=== PATIENT | female | born 1950 | race Caucasian/White ===

== ENCOUNTER 2017-12-25 22:14 | Inpatient (IN) | payer MEDICARE ==
[~2017-12-25] VITALS: Ht 154.9 cm; Wt 84.4 kg
--- NOTE | 2017-12-25 22:23 | ED.ADGEN ---
Past History Past Medical History: Arthritis, Bipolar, Dementia, Depression, Diabetes, Hypertension, UTI, Other Past Surgical History: Other Adult General Chief Complaint Chief Complaint ".. They said I needed to come... but why in the middle of the night... ".. " This is fucking crazy.. to send me out in the middle of fucking night... " " The nursing was just tired of the shit I was giving them... ".." They say I am crazy..." HPI HPI Patient is a 67 year old female who presents with above hx of complaints and hx of mental status change. Pt. per snf increasingly agitated, refuses and un cooperative with her care, impossible to re-direct, hyper verbal, irritable, explosive behaviors and threatening. Throwing items at staff and other residents. Pt. is a resident of [facility] since . Pt. normally follows with Dr. Yap. Pt. has hx of recent falls. Pt. has hx of Bipolar, Sleep apnea, Insomnia, HTN, Dementia, Hypothyroidism, Anxiety Disorder. Pt. sent to ED for eval. prior admit to [facility]. Review of Systems Review of Systems Constitutional: Denies fever or chills [] Eyes: Denies change in visual acuity, redness, or eye pain [] HENT: Denies nasal congestion or sore throat [] Respiratory: Denies cough or shortness of breath [] Cardiovascular: No additional information not addressed in HPI [] GI: Denies abdominal pain, nausea, vomiting, bloody stools or diarrhea [] : Denies dysuria or hematuria [] Musculoskeletal: Denies back pain or joint pain []Pt. only complaint is Rt. 5 th finger pain- injury during fall yesterday. Integument: Denies rash or skin lesions [] Neurologic: Denies headache, focal weakness or sensory changes [] Endocrine: Denies polyuria or polydipsia [] All other systems were reviewed and found to be within normal limits, except as documented in this note. Family History Family History Not currently available Current Medications Current Medications Current Medications Medications (Trade) Dose Ordered Sig/Bora Start Time Stop Time Status Last Admin Dose Admin Cephalexin HCl (Keflex) 500 mg 1X ONCE 12/26/17 01:15 12/26/17 01:16 DC Lactated Ringer's 1,000 ml @ 1,000 mls/hr Q1H 12/25/17 23:30 12/26/17 00:29 DC 12/25/17 23:19 1,000 MLS/HR Levofloxacin (Levaquin) 500 mg 1X ONCE 12/26/17 01:45 12/26/17 01:46 DC 12/26/17 01:45 500 MG See Nursing for home meds. Allergies Allergies Allergies Coded Allergies Type Severity Reaction Last Updated Verified Benzodiazepines Allergy Unknown Unknown 12/26/17 Yes clonazepam Allergy Unknown Unknown 12/26/17 Yes lorazepam Allergy Unknown Unknown 12/26/17 Yes Physical Exam Physical Exam Constitutional: Very agitated and in acute emotioal distress, non-toxic appearance. []Argumentative. HENT: Normocephalic, atraumatic, bilateral external ears normal, oropharynx moist, no oral exudates, nose normal. [] Eyes: PERRLA, EOMI, conjunctiva normal, no discharge. Glasses. Neck: Normal range of motion, no tenderness, supple, no stridor. [] Cardiovascular:Bradycardia Heart rate regular rhythm, no murmur [] Lungs & Thorax: Bilateral breath sounds equal at apex on auscultation . Scattered wheezes. Scar Lt. Abdomen: Bowel sounds normal, soft, no tenderness, no masses, no pulsatile masses. Obese. Skin: Warm, dry, no erythema, no rash. [] Poor turgor. Back: No tenderness, no CVA tenderness. [] Extremities: No tenderness, no cyanosis, no clubbing, ROM intact, no edema. [] Except findings of obvious dislocated right fifth finger with edema and discoloration. Neurologic: Alert and oriented X 3, No gross motor or sensory function deficits from baseline per pt. snf. Psychologic: Affect angry and agitated, , judgement limited insight to her behavior, Current Patient Data Vital Signs Vital Signs Date Time Temp Pulse Resp B/P (MAP) Pulse Ox O2 Delivery O2 Flow Rate FiO2 12/25/17 22:35 98.1 79 20 92 Room Air Lab Results Laboratory Tests Test 12/25/17 22:32 12/25/17 23:03 Urine Collection Type Unknown Urine Color Yellow Urine Clarity Clear Urine pH 6.5 Urine Specific [place] 1.010 Urine Protein Neg (NEG-TRACE) Urine Glucose (UA) Neg mg/dL (NEG) Urine Ketones (Stick) Neg mg/dL (NEG) Urine Blood Trace (NEG) Urine Nitrite Neg (NEG) Urine Bilirubin Neg (NEG) Urine Urobilinogen Dipstick 0.2 mg/dL (0.2 mg/dL) Urine Leukocyte Esterase Small (NEG) Urine RBC 0 /HPF (0-2) Urine WBC 1-4 /HPF (0-4) Urine Squamous Epithelial Cells Few /LPF Urine Bacteria Few /HPF (0-FEW) Urine Opiates Screen Neg (NEG) Urine Methadone Screen Neg (NEG) Urine Barbiturates Neg (NEG) Urine Phencyclidine Screen Neg (NEG) Urine Amphetamine/Methamphetamine Neg (NEG) Urine Benzodiazepines Screen Neg (NEG) Urine Cocaine Screen Neg (NEG) Urine Cannabinoids Screen Neg (NEG) Urine Ethyl Alcohol Neg (NEG) White Blood Count 7.9 x10^3/uL (4.0-11.0) Red Blood Count 4.02 x10^6/uL (3.50-5.40) Hemoglobin 12.5 g/dL (12.0-15.5) Hematocrit 36.5 % (36.0-47.0) Mean Corpuscular Volume 91 fL (79-100) Mean Corpuscular Hemoglobin 31 pg (25-35) Mean Corpuscular Hemoglobin Concent 34 g/dL (31-37) Red Cell Distribution Width 13.0 % (11.5-14.5) Platelet Count 208 x10^3/uL (140-400) Neutrophils (%) (Auto) 72 % (31-73) Lymphocytes (%) (Auto) 18 % (24-48) L Monocytes (%) (Auto) 7 % (0-9) Eosinophils (%) (Auto) 2 % (0-3) Basophils (%) (Auto) 0 % (0-3) Neutrophils # (Auto) 5.7 x10^3uL (1.8-7.7) Lymphocytes # (Auto) 1.4 x10^3/uL (1.0-4.8) Monocytes # (Auto) 0.6 x10^3/uL (0.0-1.1) Eosinophils # (Auto) 0.2 x10^3/uL (0.0-0.7) Basophils # (Auto) 0.0 x10^3/uL (0.0-0.2) Erythrocyte Sedimentation Rate 16 (0-25) Prothrombin Time 10.4 SEC (9.4-11.4) Prothrombin Time INR 1.0 (0.9-1.1) PTT 25 SEC (23-33) Sodium Level 139 mmol/L (136-145) Potassium Level 4.1 mmol/L (3.5-5.1) Chloride Level 106 mmol/L (98-107) Carbon Dioxide Level 28 mmol/L (21-32) Anion Gap 5 (6-14) L Blood Urea Nitrogen 11 mg/dL (7-20) Creatinine 0.8 mg/dL (0.6-1.0) Estimated GFR (Cockcroft-Gault) 71.3 Glucose Level 102 mg/dL (70-99) H Calcium Level 9.8 mg/dL (8.5-10.1) Magnesium Level 1.9 mg/dL (1.8-2.4) Total Bilirubin 0.3 mg/dL (0.2-1.0) Direct Bilirubin 0.1 mg/dL (0.0-0.2) Aspartate Amino Transferase (AST) 27 U/L (15-37) Alanine Aminotransferase (ALT) 23 U/L (14-59) Alkaline Phosphatase 138 U/L (46-116) H Creatine Kinase 254 U/L (26-192) H Creatine Kinase MB (Mass) 4.1 ng/mL (0.0-3.6) H Creatine Kinase MB Relative Index 1.6 % (0-4) Troponin I Quantitative < 0.017 ng/mL (0-0.055) TT-Cqu-H-Type Natriuretic Peptide 31 pg/mL (0-124) Total Protein 7.2 g/dL (6.4-8.2) Albumin 3.6 g/dL (3.4-5.0) Lipase 127 U/L (73-393) EKG EKG My interpretation of EKG shows a sinus rhythm at 62 bpm with no acute morphology.[] Radiology/Procedures Radiology/Procedures My interpretation of chest x-ray shows degenerative joint changes. Borderline cardiac silhouette. Atelectasis. Some findings of chronic lung disease and basilar ankle ectasis particularly on left. Does have findings of previous surgical clips clips on left. My interpretation of hand x-ray shows degenerative joint changes and dislocation of right fifth finger. Ring still on fourth finger. My interpretation of x-ray post reduction of dislocation shows adequate repositioning. The bone fragment in whole area appears to be old. ( Not tender to palpation. ) My interpretation of head CT shows no shift,, edema, bleed, or fracture. Does have findings of a 1.5 cm meningioma frontal area.[] that appears to be calcified. See formal report when available. Course & Med Decision Making Course & Med Decision Making Pertinent Labs and Imaging studies reviewed. (See chart for details) Procedure Note; Dislocation reduction- gentle traction applied to right fifth finger with reduction of dislocation- Then splinted and sandy taped. Pt. did allow me to remove ring off of 4th finger. It was place on Lt. Index finger. Discussed presentation, testing and treatment plan with - will follow medical issues of patient while she is in the senior behavioral health unit. Patient be admitted to on SBH unit. [] Final Impression Final Impression 1. Mental status change 2. Dysfunctional behavior and aggressive outbursts 3. Dislocation of fifth right finger-induced 4. Urinary tract infection 5. Elevated alkaline phosphatase and CK 6. History of bipolar disorder 7. History of dementia 8. History of anxiety disorder 9. History of insomnia and sleep apnea[] Dragon Disclaimer Dragon Disclaimer This electronic medical record was generated, in whole or in part, using a voice recognition dictation system. BLAKE CABRALES MD Dec 25, 2017 22:23
[2017-12-25] MEDS ORDERED: LITH150C PO (22:53)
[2017-12-25] MEDS ORDERED: ACET325T9 PO (22:53)
[2017-12-25] MEDS ORDERED: SORB1SOL MC (22:53)
[2017-12-25] MEDS ORDERED: LEVO75TA5 PO (22:53)
[2017-12-25] MEDS ORDERED: OLAN20TA3 PO (22:53)
[2017-12-25] MEDS ORDERED: POLY17PO5 PO (22:53)
[2017-12-25] MEDS ORDERED: ERGO500027 PO (22:53)
[2017-12-25] MEDS ORDERED: DUREZOL (22:53)
[2017-12-25] MEDS ORDERED: DEXT15DR5 EACHEYE (22:53)
[2017-12-25] MEDS ORDERED: OLAN10TA3 PO (22:53)
[2017-12-25] MEDS ORDERED: AMLO5TAB4 PO (22:53)
[2017-12-25] MEDS ORDERED: ESTR42.53 VG (22:53)
[2017-12-25] MEDS ORDERED: LITH300T3 PO (22:53)
[2017-12-25] MEDS ORDERED: TRAZ-85 PO (22:53)
[2017-12-25] MEDS ORDERED: BUSP5TAB PO (22:53)
[2017-12-25] MEDS ORDERED: ATOR20TA PO (22:53)
[2017-12-25] MEDS ORDERED: BENZ1TAB5 PO (22:53)
[2017-12-25] MEDS ORDERED: SODI15DR4 OD (22:53)
[2017-12-25] MEDS ORDERED: CARB200T PO (22:53)
[2017-12-25] MEDS ORDERED: MAGN2400 PO (22:53)
[2017-12-25] MEDS ORDERED: OXYC-317 PO (22:53)
[2017-12-25 23:14] LABS: BARBITURATES NEG (NEG); BENZODIAZEPINES NEG (NEG); CANNABINOIDS NEG (NEG); COCAINE NEG (NEG); METHADONE NEG (NEG); OPIATES NEG (NEG); PHENCYCLIDINE NEG (NEG)
[2017-12-25 23:24] LABS: AMPHETAMINE/METHAMPHETAMINE NEG (NEG)
[2017-12-25 23:26] LABS: BASO % 0 % (0-3); EOS # 0.2 x10^3/uL (0.0-0.7); EOS % 2 % (0-3); HEMATOCRIT 36.5 % (36.0-47.0); HEMOGLOBIN 12.5 g/dL (12.0-15.5); LYMPH # 1.4 x10^3/uL (1.0-4.8); LYMPH % 18 % (24-48); MEAN CORPUSCULAR HEMOGLOBIN 31 pg (25-35); MEAN CORPUSCULAR HGB CONC 34 g/dL (31-37); MEAN CORPUSCULAR VOLUME 91 fL (79-100); MONO # 0.6 x10^3/uL (0.0-1.1); MONO % 7 % (0-9); NEUT # 5.7 x10^3uL (1.8-7.7); NEUT % 72 % (31-73); PLATELET COUNT 208 x10^3/uL (140-400); RED BLOOD COUNT 4.02 x10^6/uL (3.50-5.40); WHITE BLOOD COUNT 7.9 x10^3/uL (4.0-11.0)
[2017-12-25] MEDS ORDERED: IV RINGERS SOLUTION,LACTATED 1,000 ML IV SCH (23:30)
[2017-12-25 23:37] LABS: BACTERIA,URINE FEW /HPF (0-FEW); BILIRUBIN,URINE NEG (NEG); CLARITY,URINE CLEAR; COLOR,URINE YELLOW; GLUCOSE,URINE NEG (NEG); NITRITE,URINE NEG (NEG); RBC,URINE 0 /HPF (0-2); SQUAMOUS EPITHELIAL CELL,UR FEW /LPF; UROBILINOGEN,URINE 0.2 mg/dL (0.2 mg/dL)
[2017-12-25 23:47] LABS: ALBUMIN 3.6 g/dL (3.4-5.0); CALCIUM 9.8 mg/dL (8.5-10.1); CREATININE 0.8 mg/dL (0.6-1.0); DIRECT BILIRUBIN 0.1 mg/dL (0.0-0.2); GFR 71.3; MAGNESIUM 1.9 mg/dL (1.8-2.4); POTASSIUM 4.1 mmol/L (3.5-5.1); TOTAL BILIRUBIN 0.3 mg/dL (0.2-1.0); TOTAL PROTEIN 7.2 g/dL (6.4-8.2)
--- NOTE | 2017-12-25 23:49 | EKG ---
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
[2017-12-26 00:24] LABS: SEDIMENTATION RATE 16 (0-25)
[2017-12-26] MEDS ORDERED: CEPHALEXIN 250 MG CAPSULE PO ONE (01:15)
[2017-12-26] MEDS ORDERED: levoFLOXacin 500 MG TABLET PO ONE (01:45)
--- NOTE | 2017-12-26 01:52 | RAD ---
EXAM: CT HEAD WITHOUT CONTRAST. HISTORY: Altered mental status. TECHNIQUE: Computed tomography of the head was performed without intravenous contrast. COMPARISON: None. FINDINGS: There is no intracranial hemorrhage. Hypoattenuation within the periventricular white matter indicates mild chronic microangiopathic change. The ventricles are normal in size and position. A calcified extra-axial nodule in the left frontal distribution may represent dural calcification or small meningioma. It measures 1.6 x 1.0 cm. There is no significant mass effect. The visualized paranasal sinuses appear clear. There are changes of right cataract surgery. The temporal bones are unremarkable. The calvarium reveals no suspicious lesions. IMPRESSION: 1. No acute intracranial findings. 2. A left frontal extra-axial calcified mass measures 1.6 cm and is likely a meningioma. MRI with and without contrast could further evaluate if the diagnosis is not already known. 3. Mild chronic microangiopathic white matter change. *One or more of the following individualized dose reduction techniques were utilized for this examination: 1. Automated exposure control. 2. Adjustment of the mA and/or kV according to patient size. 3. Use of iterative reconstruction technique. Electronically signed by: Rosalia Florian MD (12/26/2017 1:49 AM) [id number]
[2017-12-26] MEDS ORDERED: oxyCODONE/APAP 10/325 1 TAB TABLET PO PRN (05:15)
[2017-12-26] MEDS ORDERED: SORBITOL 70% 30 ML SOLUTION. PO PRN (05:15)
[2017-12-26] MEDS ORDERED: MAGNESIUM HYDROXIDE 2,400 MG/30 ML ORAL.SUSP. PO PRN (05:15)
[2017-12-26] MEDS ORDERED: MAG HYDROX/AL HYDROX/SIMETH 30 ML ORAL.SUSP PO PRN (05:15)
[2017-12-26] MEDS ORDERED: METHYL SALICYLATE/MENTHOL TOPICAL OINTMENT 29GM TUBE. TP PRN (05:15)
[2017-12-26] MEDS ORDERED: CEPHALEXIN 250 MG CAPSULE ONE (05:29)
[2017-12-26] MEDS ORDERED: busPIRone 5 MG TABLET. PO PRN (05:30)
[2017-12-26] MEDS: LEVOTHYROXINE 75 MCG TABLET PO SCH (06:26)
[2017-12-26 06:42] VITALS: BP 161/82
--- NOTE | 2017-12-26 07:41 | RAD ---
AP chest, 12/26/2017: HISTORY: Medical clearance for behavioral health admission, altered mental status The heart size and pulmonary vascularity are normal. There is minimal linear atelectasis or scarring laterally in the left base. The lungs are otherwise clear. There is no evidence of pleural fluid. Surgical clips are projected over the left axillary and right thyroid regions. IMPRESSION: Minimal linear atelectasis or scarring in the left base. Electronically signed by: Elgin Valentine MD (12/26/2017 7:37 AM) [facility]
--- NOTE | 2017-12-26 07:44 | RAD ---
Right hand, 3 views, 12/26/2017, 12:14 AM: HISTORY: Hand injury There is posterior dislocation of the little finger at the PIP joint. There is associated soft tissue swelling. No fracture is identified. There are mild scattered degenerative changes. Minimal periarticular calcifications are seen at several MCP joints. IMPRESSION: Dislocation of the little finger at the PIP joint. Right hand, 3 views, 12/26/2017, 1:17 AM: The above-described little finger dislocation has been reduced. No fracture is identified. IMPRESSION: Satisfactory reduction of the dislocated little finger. Electronically signed by: Elgin Valentine MD (12/26/2017 7:41 AM) [facility]
[2017-12-26] MEDS: POLYETHYLENE GLYCOL 3350 17 GM PACKET. PO SCH (08:04)
[2017-12-26] MEDS: BENZTROPINE MESYLATE 1 MG TABLET PO SCH ×2 (08:04→20:34)
[2017-12-26] MEDS: LITHIUM CARBONATE 300 MG TABLET PO SCH ×3 (08:04→20:37)
[2017-12-26] MEDS: carBAMazepine 200 MG TABLET PO SCH ×2 (08:05→20:35)
[2017-12-26] MEDS: amLODIPine BESYLATE 5 MG TABLET PO SCH (08:05)
[2017-12-26] MEDS: OLANZapine 10 MG TABLET PO SCH ×2 (08:05→20:34)
[2017-12-26] MEDS: LACTOBACILLUS RHAMNOSUS GG 1 CAPSULE. PO SCH ×2 (08:07→20:36)
[2017-12-26] MEDS: POLYVINYL ALCOHOL 1.4% OPHTH SOLUTION 15ML BOTTLE. OU SCH ×2 (08:09→14:19)
[2017-12-26 13:16] LABS: CARBAM 10.2 mcg/mL (4.0-12.0)
[2017-12-26] MEDS: PHENAZOPYRIDINE 100 MG TABLET. PO SCH ×2 (14:19→20:36)
--- NOTE | 2017-12-26 14:40 | CONS ---
DATE OF CONSULTATION: 12/26/2017 REASON FOR CONSULTATION: Medical management. HISTORY OF PRESENT ILLNESS: The patient is a 67-year-old female patient, a resident at [facility], who was admitted to [facility]al Unit on account of increasing agitation and aggression. She has been hyperverbal, irritable, has insomnia, throws things if she does not get her way with very explosive behavior, all this in a background of bipolar disorder. PAST MEDICAL HISTORY: Significant for hypertension, hyperlipidemia, hypothyroidism. She has also recurrent falls and muscle weakness. PAST PSYCHIATRIC HISTORY: Significant for bipolar disorder as well as dementia. PAST SURGICAL HISTORY: Unremarkable. FAMILY HISTORY: Also unremarkable. ALLERGIES: SHE IS ALLERGIC TO BENZODIAZEPINE, CLONAZEPAM, AND LORAZEPAM. MEDICATIONS: She is currently on following medications: She is on atorvastatin calcium 20 mg at bedtime, amlodipine 5 mg daily, oxycodone/APAP 10/325 one tablet every 6 hours, acetaminophen 650 mg every 6 hours, carbamazepine 200 mg twice a day, trazodone 50 mg at bedtime, olanzapine 10 mg daily, olanzapine 20 mg at bedtime, buspirone 5 mg every 8 hours as needed, lithium carbonate 150 mg at bedtime and lithium carbonate 300 mg twice a day. She is on benztropine 1 mg twice a day. She has artificial tears 1 drop to both eyes 3 times a day. She is on saline nasal spray 1 spray at bedtime. She has magnesium oxide for milk of magnesia 30 mL p.o. daily p.r.n. for constipation, polyethylene glycol 17 grams daily, sorbitol solution. She is also on estradiol for Estrace 1 gram per vagina once a week at bedtime every Friday and . She follows with her pecan gatherer there. She is also on ergocalciferol 50,000 units once a week and ergocalciferol, vitamin D 50,000 once a week. FAMILY HISTORY: Unremarkable. SOCIAL HISTORY: She is a resident at [facility]. She apparently does not smoke, drink alcohol, or use any recreational drugs. PHYSICAL EXAMINATION: GENERAL: When I examined her, she was sitting comfortably in her chair in no apparent distress. She was pale, no jaundice, cyanosis or thyromegaly. No jugular venous distension. No lower limb edema. VITAL SIGNS: Her heart rate was 72, blood pressure was 161/82, temperature was 98.5, respiratory rate was 18 and oxygen saturation was 97%. HEAD, EYES, EARS, NOSE, AND THROAT: Showed normocephalic, atraumatic. NECK: Supple. HEART: Showed normal first and second heart sounds. No gallop, rub or murmur. CHEST: Clear to auscultation. No crepitation or rhonchi. ABDOMEN: Distended, soft, nontender. NEUROLOGIC: She is awake, alert, responding appropriately. All cranial nerves intact. EXTREMITIES: She moves extremities without difficulty. She ambulates without assistance or assistive devices. She apparently fell and sustained a fracture of her right fifth finger. She actually dislocated her little finger at proximal interphalangeal joints and she underwent open reduction and fixation with the splint. LABORATORY DATA: Her white cell count was 7900, hemoglobin 12.5, hematocrit 36.5, MCV 91, and platelet count 98,000. Her chemistry showed a serum sodium 139, potassium 4.1, chloride 106, bicarbonate 28, anion gap of 5, BUN 11, creatinine 0.8, estimated GFR was 71 mL per minute. Her glucose 102, calcium was 9.8, magnesium was 1.9. Total bilirubin, AST, ALT were normal. Alkaline phosphatase slightly elevated. Total protein was 7.2, albumin 3.6. Her prothrombin time was 10.4, INR of 1, aPTT was 25. Urinalysis showed the urine was yellow, clear with a pH of 6.5, specific gravity of 1.010. The urine was negative for protein, glucose, ketones, there was trace of blood, negative for nitrite and small amount of leukocyte esterase with 0 RBCs, 1-4 WBCs, very few bacteria. Her toxic screen was negative. Her CT scan of the head showed that no acute intracranial finding, a left frontal extraaxial calcified mass measures 1.7 cm is likely a meningioma. MRI with and without contrast could further evaluate if the diagnosis is not already known. She has mild chronic microangiopathic white matter changes. The chest x-ray showed that the heart size and pulmonary vascularity are normal. There is minimal linear atelectasis or scarring laterally in the left base. The lungs are otherwise clear. There is no evidence of pleural effusion. Surgical clips are projected over the left axillary and right thyroid regions. X-ray of the hand showed that there is posterior dislocation of the little finger at proximal interphalangeal joint. There is associated soft tissue swelling, no fracture identified. There are mild scattered degenerative changes, minimal periarticular calcifications are seen at several metacarpophalangeal joints. The dislocation was reduced and the patient now put in a splint and the newer position was confirmed by chest x-ray. IMPRESSION: In summary, this is a 67-year-old female patient who was admitted on account of increased agitation, aggression, hyperverbal, irritable, insomniac, throws things if she does not get her way with marked explosive behavior. She has multiple medical problems including hypertension, hyperlipidemia, hypothyroidism, osteoarthritis, and osteoporosis. All her vital signs are within acceptable range as well as her lab work. I will follow all the labs that are still pending at the time of this dictation and make any necessary recommendation. Thank you Dr. Pinzon for allowing me to participate in the care of this patient. TANIA DELGADO MD DR: TRINIDAD/fredrick JOB#: [id number] / [id number]
[2017-12-26 16:29] VITALS: BP 119/75
[2017-12-26] MEDS ORDERED: POLYVINYL ALCOHOL/POVIDONE/PF OPHTH SOLUTION DROPERETTE. OU SCH (17:00)
[2017-12-26] MEDS: traZODone 50 MG TABLET. PO SCH (20:34)
[2017-12-26] MEDS: POLYVINYL ALCOHOL/POVIDONE/PF OPHTH SOLUTION DROPERETTE. OU SCH (20:34)
[2017-12-26] MEDS: ATORVASTATIN CALCIUM 20 MG TABLET PO SCH (20:34)
--- NOTE | 2017-12-26 21:01 | PDOC ---
Exam Note: Julian Note: Please also refer to the separate dictated note~for this date of service dictated separately.~Patient seen individually. Discussed the patient with Nursing staff reviewed the chart.~Reviewed interim history and current functioning. Reviewed vital signs,~Labs/ Radiology~and current medications noted below. Continue current treatment with the changes noted in the dictated addendum note Assessment: Vital Signs: Vital Signs Date Time Temp Pulse Resp B/P (MAP) Pulse Ox O2 Delivery O2 Flow Rate FiO2 12/26/17 16:29 98.3 81 20 119/75 (90) 95 12/25/17 22:35 Room Air Labs: Laboratory Tests Test 12/25/17 22:32 12/25/17 23:03 Urine Collection Type Unknown Urine Color Yellow Urine Clarity Clear Urine pH 6.5 Urine Specific Stephen 1.010 Urine Protein Neg (NEG-TRACE) Urine Glucose (UA) Neg mg/dL (NEG) Urine Ketones (Stick) Neg mg/dL (NEG) Urine Blood Trace (NEG) Urine Nitrite Neg (NEG) Urine Bilirubin Neg (NEG) Urine Urobilinogen Dipstick 0.2 mg/dL (0.2 mg/dL) Urine Leukocyte Esterase Small (NEG) Urine RBC 0 /HPF (0-2) Urine WBC 1-4 /HPF (0-4) Urine Squamous Epithelial Cells Few /LPF Urine Bacteria Few /HPF (0-FEW) Urine Opiates Screen Neg (NEG) Urine Methadone Screen Neg (NEG) Urine Barbiturates Neg (NEG) Urine Phencyclidine Screen Neg (NEG) Urine Amphetamine/Methamphetamine Neg (NEG) Urine Benzodiazepines Screen Neg (NEG) Urine Cocaine Screen Neg (NEG) Urine Cannabinoids Screen Neg (NEG) Urine Ethyl Alcohol Neg (NEG) White Blood Count 7.9 x10^3/uL (4.0-11.0) Red Blood Count 4.02 x10^6/uL (3.50-5.40) Hemoglobin 12.5 g/dL (12.0-15.5) Hematocrit 36.5 % (36.0-47.0) Mean Corpuscular Volume 91 fL (79-100) Mean Corpuscular Hemoglobin 31 pg (25-35) Mean Corpuscular Hemoglobin Concent 34 g/dL (31-37) Red Cell Distribution Width 13.0 % (11.5-14.5) Platelet Count 208 x10^3/uL (140-400) Neutrophils (%) (Auto) 72 % (31-73) Lymphocytes (%) (Auto) 18 % (24-48) L Monocytes (%) (Auto) 7 % (0-9) Eosinophils (%) (Auto) 2 % (0-3) Basophils (%) (Auto) 0 % (0-3) Neutrophils # (Auto) 5.7 x10^3uL (1.8-7.7) Lymphocytes # (Auto) 1.4 x10^3/uL (1.0-4.8) Monocytes # (Auto) 0.6 x10^3/uL (0.0-1.1) Eosinophils # (Auto) 0.2 x10^3/uL (0.0-0.7) Basophils # (Auto) 0.0 x10^3/uL (0.0-0.2) Erythrocyte Sedimentation Rate 16 (0-25) Prothrombin Time 10.4 SEC (9.4-11.4) Prothrombin Time INR 1.0 (0.9-1.1) PTT 25 SEC (23-33) Sodium Level 139 mmol/L (136-145) Potassium Level 4.1 mmol/L (3.5-5.1) Chloride Level 106 mmol/L (98-107) Carbon Dioxide Level 28 mmol/L (21-32) Anion Gap 5 (6-14) L Blood Urea Nitrogen 11 mg/dL (7-20) Creatinine 0.8 mg/dL (0.6-1.0) Estimated GFR (Cockcroft-Gault) 71.3 Glucose Level 102 mg/dL (70-99) H Calcium Level 9.8 mg/dL (8.5-10.1) Magnesium Level 1.9 mg/dL (1.8-2.4) Iron Level 43 ug/dL (50-170) L Total Iron Binding Capacity 230 ug/dL (250-450) L Iron Saturation 19 % (15-34) Total Bilirubin 0.3 mg/dL (0.2-1.0) Direct Bilirubin 0.1 mg/dL (0.0-0.2) Aspartate Amino Transferase (AST) 27 U/L (15-37) Alanine Aminotransferase (ALT) 23 U/L (14-59) Alkaline Phosphatase 138 U/L (46-116) H Creatine Kinase 254 U/L (26-192) H Creatine Kinase MB (Mass) 4.1 ng/mL (0.0-3.6) H Creatine Kinase MB Relative Index 1.6 % (0-4) Troponin I Quantitative < 0.017 ng/mL (0-0.055) JU-Qwh-[id number]-Type Natriuretic Peptide 31 pg/mL (0-124) Total Protein 7.2 g/dL (6.4-8.2) Albumin 3.6 g/dL (3.4-5.0) Triglycerides Level 134 mg/dL (0-150) Cholesterol Level 203 mg/dL (0-200) H LDL Cholesterol, Calculated 111 mg/dL (0-100) H VLDL Cholesterol, Calculated 26 mg/dL (0-40) Non-HDL Cholesterol Calculated 137 mg/dL (0-129) H HDL Cholesterol 66 mg/dL (40-60) H Cholesterol/HDL Ratio 3.0 Lipase 127 U/L (73-393) Vitamin B12 Level 254 pg/mL (247-911) 25-Hydroxy Vitamin D Total 74.1 ng/mL (30-100) Thyroid Stimulating Hormone (TSH) 6.619 uIU/mL (0.358-3.740) Carbamazepine (Tegretol) Level 10.2 mcg/mL (4.0-12.0) Carbamazepine Last Dose Date 12/25/17 Carbamazepine Last Dose Time 1999 [place] Level 1.0 mmol/L (0.6-1.2) [place] Last Dose Date 12/25/17 [place] Last Dose Time 1999 Treponema pallidum Antibody Nonreactive (Nonreactive) Current Medications: Meds: Current Medications Lactated Ringer's 1,000 ml @ 1,000 mls/hr Q1H IV Last administered on at 23:19; Start 12/25/17 at 23:30; Stop 12/26/17 at 00:29; Status DC Cephalexin HCl (Keflex) 500 mg 1X ONCE PO Last administered on 12/26/17at 05:32 ; Start 12/26/17 at 01:15; Stop 12/26/17 at 01:16; Status DC Levofloxacin (Levaquin) 500 mg 1X ONCE PO Last administered on 12/26/17at 01:45 ; Start 12/26/17 at 01:45; Stop 12/26/17 at 01:46; Status DC Levofloxacin (Levaquin) 500 mg DAILY06 PO ; Start 12/27/17 at 06:00 Multi-Ingredient Ointment (Analgesic Radiant) 1 barbara PRN QID PRN TP MUSCLE PAIN; Start 12/26/17 at 05:15 Al Hydroxide/Mg Hydroxide (Mylanta Plus Xs) 15 ml PRN AFTMEALHC PRN PO DYSPEPSIA; Start 12/26/17 at 05:15 Acetaminophen (Tylenol) 650 mg PRN Q6HRS PRN PO PAIN / TEMP; Start 12/26/17 at 05:15 Atorvastatin Calcium (Lipitor) 20 mg QHS PO Last administered on 12/26/17at 20: 34; Start 12/26/17 at 21:00 Estradiol (Estrace) 1 barbara QMTH VG ; Start 12/29/17 at 16:00 Levothyroxine Sodium (Synthroid) 75 mcg DAILY07 PO Last administered on at 06:26; Start 12/26/17 at 07:00 Oxycodone/ Acetaminophen (Percocet 10/325) 1 tab PRN Q6HRS PRN PO PAIN; Start 12/26/17 at 05:15 Sorbitol (Sorbitol Solution) 30 ml PRN DAILY PRN PO CONSTIPATION; Start at 05:15 Amlodipine Besylate (Norvasc) 5 mg DAILY PO Last administered on 12/26/17at 08: 05; Start 12/26/17 at 09:00 Artificial Tears (Artificial Tears) 1 drop TID OU Last administered on at 14:19; Start 12/26/17 at 09:00; Stop 12/26/17 at 16:57; Status DC Vitamin D (Vitamin D3) 50,000 unit QSU PO ; Start 12/28/17 at 16:00 Magnesium Hydroxide (Milk Of Magnesia) 2,400 mg PRN DAILY PRN PO CONSTIPATION; Start 12/26/17 at 05:15 Polyethylene Glycol (miraLAX) 17 gm DAILY PO Last administered on 12/26/17at 08: 04; Start 12/26/17 at 09:00 Sodium Chloride (Elmer) 0.25 inch HS OD ; Start 12/26/17 at 21:00 Carbamazepine (TEGretol) 300 mg BID PO Last administered on 12/26/17at 20:35; Start 12/26/17 at 09:00 Benztropine Mesylate (Cogentin) 1 mg BID PO Last administered on 12/26/17 20: 34; Start 12/26/17 at 09:00 Buspirone HCl (Buspar) 5 mg PRN Q8HRS PRN PO PSYCHOSIS Last administered on 08:09; Start 12/26/17 at 05:30 [place] Carbonate 150 mg HS PO Last administered on 12/26/17 20:35; Start 03/05 at 21:00 [place] Carbonate 300 mg BID PO Last administered on 12/26/17 20:37; Start 03/05 at 09:00 Olanzapine (ZyPREXA) 10 mg DAILY PO Last administered on 12/26/17at 08:05; Start 12/26/17 at 09:00 Olanzapine (ZyPREXA) 20 mg HS PO Last administered on 12/26/17 20:34; Start at 21:00 Trazodone HCl (Desyrel) 50 mg QHS PO Last administered on 12/26/17 20:34; Start 12/26/17 at 21:00 Cephalexin HCl (Keflex) 250 mg STK-MED ONCE .ROUTE ; Start 12/26/17 at 05:29; Stop 12/26/17 at 05:30; Status DC Lactobacillus Rhamnosus (Culturelle) 1 cap BID PO Last administered on 20:36; Start 12/26/17 at 09:00 Phenazopyridine HCl (Pyridium) 100 mg TID PO Last administered on 12/26/17 20: 36; Start 12/26/17 at 14:00; Stop 12/28/17 at 13:00 Artificial Tears (Refresh Classic) 1 drop TID OU ; Start 12/26/17 at 17:00; Stop 12/26/17 at 17:00; Status DC Artificial Tears (Refresh Classic) 1 drop TID OU Last administered on 20:34; Start 12/26/17 at 17:00 Active Scripts Active Reported Zyprexa (Olanzapine) 20 Mg Tablet 20 Mg PO HS Zyprexa (Olanzapine) 10 Mg Tablet 10 Mg PO DAILY Trazodone Hcl 50 Mg Tablet 50 Mg PO HS Tegretol (Carbamazepine) 200 Mg Tablet 300 Mg PO BID Sorbitol (Sorbitol Solution) 1 Ml Solution 1 Ml MC Norvasc (Amlodipine Besylate) 5 Mg Tablet 5 Mg PO DAILY Elmer-128 (Sodium Chloride) 15 Ml Drops 1 Drop OD HS Miralax (Polyethylene Glycol 3350) 17 Gm Powd.pack 17 Gm PO DAILY Milk Of Magnesia (Magnesium Hydroxide) 2,400 Mg/10 Ml Oral.susp 2,400 Mg PO PRN DAILY PRN [place] Carbonate 300 Mg Tablet 300 Mg PO BID [place] Carbonate 150 Mg Capsule 150 Mg PO HS Lipitor (Atorvastatin Calcium) 20 Mg Tablet 20 Mg PO QHS Levothyroxine Sodium 75 Mcg Tablet 75 Mcg PO DAILYAC Estrace (Estradiol) 42.5 Gm Cream.appl 1 Gm VG HS QMON/ Insert at bedtime on Friday and Vitamin D2 (Ergocalciferol (Vitamin D2)) 50,000 Unit Capsule 50,000 Unit PO WEEKLY Endocet 10-325 Mg Tablet (Oxycodone Hcl/Acetaminophen) 1 Each Tablet 1 Tab PO PRN Q6HRS PRN [durezol] Buspirone Hcl 5 Mg Tablet 5 Mg PO PRN Q8HRS PRN Benztropine Mesylate 1 Mg Tablet 1 Mg PO BID Artificial Tears Eye Drops (Dextran 70/Hypromellose) 15 Ml Drops 1 Drop EACHEYE TID Tylenol (Acetaminophen) 325 Mg Tablet 650 Mg PO PRN Q6HRS PRN I have reviewed the current psychotropics carefully including drug interactions. Risk benefit ratio favors no change other than as noted in my dictated progress note. 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
[2017-12-26] MEDS: SODIUM CHLORIDE 5% OPHTH OINTMENT 3.5GM TUBE. OD SCH (21:47)
[2017-12-26] MEDS ORDERED: traZODone 50 MG TABLET. PO PRN (22:30)
[2017-12-26] MEDS: risperiDONE 0.5 MG TABLET. PO SCH (23:00)
[2017-12-26 23:10] LABS: THYROXINE 5.8 ug/dL (4.5-12.0)
[2017-12-27 00:08] LABS: HEMOGLOBIN A1C 5.1 % (4.8-5.6)
[2017-12-27] MEDS: LEVOTHYROXINE 75 MCG TABLET PO SCH (05:37)
[2017-12-27] MEDS: levoFLOXacin 500 MG TABLET PO SCH (05:37)
[2017-12-27 06:53] VITALS: BP 146/83
[2017-12-27 07:53] LABS: BASO % 1 % (0-3); EOS # 0.2 x10^3/uL (0.0-0.7); EOS % 3 % (0-3); HEMOGLOBIN 12.3 g/dL (12.0-15.5); LYMPH # 0.9 x10^3/uL (1.0-4.8); LYMPH % 18 % (24-48); MEAN CORPUSCULAR HEMOGLOBIN 31 pg (25-35); MEAN CORPUSCULAR HGB CONC 34 g/dL (31-37); MEAN CORPUSCULAR VOLUME 91 fL (79-100); MONO # 0.5 x10^3/uL (0.0-1.1); MONO % 10 % (0-9); NEUT # 3.3 x10^3uL (1.8-7.7); NEUT % 68 % (31-73); PLATELET COUNT 196 x10^3/uL (140-400); RED BLOOD COUNT 3.94 x10^6/uL (3.50-5.40); WHITE BLOOD COUNT 4.8 x10^3/uL (4.0-11.0)
[2017-12-27 08:06] LABS: CALCIUM 9.9 mg/dL (8.5-10.1); CREATININE 0.9 mg/dL (0.6-1.0); GFR 62.3; POTASSIUM 4.2 mmol/L (3.5-5.1)
[2017-12-27] MEDS: PHENAZOPYRIDINE 100 MG TABLET. PO SCH ×3 (08:22→20:47)
[2017-12-27] MEDS: BENZTROPINE MESYLATE 1 MG TABLET PO SCH ×2 (08:22→20:44)
[2017-12-27] MEDS: POLYETHYLENE GLYCOL 3350 17 GM PACKET. PO SCH (08:22)
[2017-12-27] MEDS: LACTOBACILLUS RHAMNOSUS GG 1 CAPSULE. PO SCH ×2 (08:22→20:45)
[2017-12-27] MEDS: OLANZapine 10 MG TABLET PO SCH ×2 (08:22→20:47)
[2017-12-27] MEDS: LITHIUM CARBONATE 300 MG TABLET PO SCH ×3 (08:23→20:45)
[2017-12-27] MEDS: amLODIPine BESYLATE 5 MG TABLET PO SCH (08:23)
[2017-12-27] MEDS: carBAMazepine 200 MG TABLET PO SCH ×2 (08:23→20:44)
[2017-12-27] MEDS: POLYVINYL ALCOHOL/POVIDONE/PF OPHTH SOLUTION DROPERETTE. OU SCH ×3 (08:24→20:47)
[2017-12-27 16:57] VITALS: BP 131/76
[2017-12-27] MEDS: ATORVASTATIN CALCIUM 20 MG TABLET PO SCH (20:44)
[2017-12-27] MEDS: SODIUM CHLORIDE 5% OPHTH OINTMENT 3.5GM TUBE. OD SCH (20:45)
[2017-12-27] MEDS: traZODone 50 MG TABLET. PO SCH (20:47)
[2017-12-27] MEDS: risperiDONE 0.5 MG TABLET. PO SCH (20:47)
--- NOTE | 2017-12-27 21:22 | HP ---
ADMIT DATE: 12/26/2017 PSYCHIATRIC ADMISSION HISTORY/EVALUATION This late entry date of service 12/26/2017 covers elements not covered in my initial note 12/26/2017. IDENTIFYING DATA: The patient is a 67-year-old female referred to us from [facility] by Dr. Jose Guadalupe Murphy, her primary care physician; Dr. Galan, psychiatrist on account of increasing agitation, aggression, being hyperverbal, irritable, manic having marked insomnia, throwing things if she does not get her way and explosive behaviors. This is within the context of her bipolar disorder with worsening mood swings and psychotic symptoms. CHIEF COMPLAINT: "Yes my mind has been racing. Things have not been right." HISTORY OF PRESENT ILLNESS: The patient has a long history of bipolar disorder, mixed with psychotic features. She has been stable for some time, but worsening over the last couple of weeks, extremely manic, grandiose, psychotic, agitated, aggressive, disruptive. Behaviors have been deemed dangerous, unmanageable at the facility resulting in this referral. PAST PSYCHIATRIC HISTORY: As above. MEDICAL HISTORY: Positive for hypertension, hyperlipidemia, memory deficits, hypothyroidism, history of falls. Also, she fallen on her dresser at the half-way and has fractured her ring finger and this was addressed in the ER, but she has removed the support. The patient seems to have a UTI and I will defer this to Dr. Jacome. CURRENT PSYCHOTROPICS: Cogentin 1 mg b.i.d., BuSpar 5 mg q. 8 hours p.r.n. We will discontinue this since it would really have very limited efficacy if at all being used p.r.n. She is on lithium carbonate 300 b.i.d. and 150 at bedtime, Tegretol 300 b.i.d., trazodone 50 at bedtime, may repeat x 1, Zyprexa 10 mg daily and 20 mg at bedtime. Her Joes level is awaited. FAMILY HISTORY: Noncontributory. SOCIAL HISTORY: No history of alcohol, drug abuse, physical, sexual, or elder abuse. The patient is not known to be a perpetrator. She has been admitted by her DPOA. REACTION TO HOSPITALIZATION: The patient accepting of it. ASSETS: Stable, living at the facility, supportive family. MENTAL STATUS EXAMINATION: The patient was seen individually evening of 12/26/2017. She is oriented to herself and situation. Speech coherent, rapid at times, quite manic, grandiose, restless, distractable. Abstraction fair, computation impaired, short term memory has some impairment. She is paranoid, suspicious, can be quite loud and disruptive at times. No active suicidal or homicidal ideation. IMPRESSION: Bipolar 1 disorder, mixed with psychotic features; anxiety disorder, unspecified; impulse control disorder, unspecified; cognitive disorder, unspecified. Rest as above. PLAN: From a psychiatric standpoint, continue current psychotropics. Joes level is awaited. Stop the BuSpar, start Risperdal 0.5 mg p.o. at bedtime. Treat the UTI. I will see the patient daily individually from a psychiatric standpoint, medical followup with Dr. Jacome/Dr. Zelaya. Further changes depending on how she does with the initial changes. KIERSTEN WATT MD DR: SANCHEZ/fredrick JOB#: [id number] / [id number]
--- NOTE | 2017-12-27 23:15 | PDOC ---
Exam Note: Julian Note: Please also refer to the separate dictated note~for this date of service dictated separately.~Patient seen individually. Discussed the patient with Nursing staff reviewed the chart.~Reviewed interim history and current functioning. Reviewed vital signs,~Labs/ Radiology~and current medications noted below. Continue current treatment with the changes noted in the dictated addendum note Assessment: Vital Signs: Vital Signs Date Time Temp Pulse Resp B/P (MAP) Pulse Ox O2 Delivery O2 Flow Rate FiO2 12/27/17 16:57 98.4 78 20 131/76 (94) 95 12/25/17 22:35 Room Air I&O Intake and Output 12/27/17 07:00 Intake Total 1200 ml Balance 1200 ml Intake Oral 1200 ml Labs: Laboratory Tests Test 12/27/17 07:28 White Blood Count 4.8 x10^3/uL (4.0-11.0) Red Blood Count 3.94 x10^6/uL (3.50-5.40) Hemoglobin 12.3 g/dL (12.0-15.5) Hematocrit 36.0 % (36.0-47.0) Mean Corpuscular Volume 91 fL (79-100) Mean Corpuscular Hemoglobin 31 pg (25-35) Mean Corpuscular Hemoglobin Concent 34 g/dL (31-37) Red Cell Distribution Width 13.0 % (11.5-14.5) Platelet Count 196 x10^3/uL (140-400) Neutrophils (%) (Auto) 68 % (31-73) Lymphocytes (%) (Auto) 18 % (24-48) L Monocytes (%) (Auto) 10 % (0-9) H Eosinophils (%) (Auto) 3 % (0-3) Basophils (%) (Auto) 1 % (0-3) Neutrophils # (Auto) 3.3 x10^3uL (1.8-7.7) Lymphocytes # (Auto) 0.9 x10^3/uL (1.0-4.8) L Monocytes # (Auto) 0.5 x10^3/uL (0.0-1.1) Eosinophils # (Auto) 0.2 x10^3/uL (0.0-0.7) Basophils # (Auto) 0.0 x10^3/uL (0.0-0.2) Sodium Level 137 mmol/L (136-145) Potassium Level 4.2 mmol/L (3.5-5.1) Chloride Level 106 mmol/L (98-107) Carbon Dioxide Level 26 mmol/L (21-32) Anion Gap 5 (6-14) L Blood Urea Nitrogen 9 mg/dL (7-20) Creatinine 0.9 mg/dL (0.6-1.0) Estimated GFR (Cockcroft-Gault) 62.3 Glucose Level 97 mg/dL (70-99) Calcium Level 9.9 mg/dL (8.5-10.1) Current Medications: Meds: Current Medications Lactated Ringer's 1,000 ml @ 1,000 mls/hr Q1H IV Last administered on at 23:19; Start 12/25/17 at 23:30; Stop 12/26/17 at 00:29; Status DC Cephalexin HCl (Keflex) 500 mg 1X ONCE PO Last administered on 12/26/17at 05:32 ; Start 12/26/17 at 01:15; Stop 12/26/17 at 01:16; Status DC Levofloxacin (Levaquin) 500 mg 1X ONCE PO Last administered on 12/26/17at 01:45 ; Start 12/26/17 at 01:45; Stop 12/26/17 at 01:46; Status DC Levofloxacin (Levaquin) 500 mg DAILY06 PO Last administered on 12/27/17at 05:37 ; Start 12/27/17 at 06:00 Multi-Ingredient Ointment (Analgesic [place]) 1 barbara PRN QID PRN TP MUSCLE PAIN; Start 12/26/17 at 05:15 Al Hydroxide/Mg Hydroxide (Mylanta Plus Xs) 15 ml PRN AFTMEALHC PRN PO DYSPEPSIA; Start 12/26/17 at 05:15 Acetaminophen (Tylenol) 650 mg PRN Q6HRS PRN PO PAIN / TEMP; Start 12/26/17 at 05:15 Atorvastatin Calcium (Lipitor) 20 mg QHS PO Last administered on 12/27/17at 20: 44; Start 12/26/17 at 21:00 Estradiol (Estrace) 1 barbara QMTH VG ; Start 12/29/17 at 16:00 Levothyroxine Sodium (Synthroid) 75 mcg DAILY07 PO Last administered on 05:37; Start 12/26/17 at 07:00 Oxycodone/ Acetaminophen (Percocet 10/325) 1 tab PRN Q6HRS PRN PO PAIN Last administered on 12/27/17 13:18; Start 12/26/17 at 05:15 Sorbitol (Sorbitol Solution) 30 ml PRN DAILY PRN PO CONSTIPATION; Start at 05:15 Amlodipine Besylate (Norvasc) 5 mg DAILY PO Last administered on 12/27/17 08: 23; Start 12/26/17 at 09:00 Artificial Tears (Artificial Tears) 1 drop TID OU Last administered on 14:19; Start 12/26/17 at 09:00; Stop 12/26/17 at 16:57; Status DC Vitamin D (Vitamin D3) 50,000 unit QSU PO ; Start 12/28/17 at 16:00 Magnesium Hydroxide (Milk Of Magnesia) 2,400 mg PRN DAILY PRN PO CONSTIPATION; Start 12/26/17 at 05:15 Polyethylene Glycol (miraLAX) 17 gm DAILY PO Last administered on 12/27/17 08: 22; Start 12/26/17 at 09:00 Sodium Chloride (Elmer) 0.25 inch HS OD Last administered on 12/27/17 20:45; Start 12/26/17 at 21:00 Carbamazepine (TEGretol) 300 mg BID PO Last administered on 12/27/17 20:44; Start 12/26/17 at 09:00 Benztropine Mesylate (Cogentin) 1 mg BID PO Last administered on 12/27/17 20: 44; Start 12/26/17 at 09:00 Buspirone HCl (Buspar) 5 mg PRN Q8HRS PRN PO PSYCHOSIS Last administered on 08:09; Start 12/26/17 at 05:30 [place] Carbonate 150 mg HS PO Last administered on 12/27/17 20:45; Start 03/05 at 21:00 [place] Carbonate 300 mg BID PO Last administered on 12/27/17 20:44; Start 03/05 at 09:00 Olanzapine (ZyPREXA) 10 mg DAILY PO Last administered on 12/27/17 08:22; Start 12/26/17 at 09:00 Olanzapine (ZyPREXA) 20 mg HS PO Last administered on 12/27/17at 20:47; Start at 21:00 Trazodone HCl (Desyrel) 50 mg QHS PO Last administered on 12/27/17at 20:47; Start 12/26/17 at 21:00 Cephalexin HCl (Keflex) 250 mg STK-MED ONCE .ROUTE ; Start 12/26/17 at 05:29; Stop 12/26/17 at 05:30; Status DC Lactobacillus Rhamnosus (Culturelle) 1 cap BID PO Last administered on at 20:45; Start 12/26/17 at 09:00 Phenazopyridine HCl (Pyridium) 100 mg TID PO Last administered on 12/27/17at 20: 47; Start 12/26/17 at 14:00; Stop 12/28/17 at 13:00 Artificial Tears (Refresh Classic) 1 drop TID OU ; Start 12/26/17 at 17:00; Stop 12/26/17 at 17:00; Status DC Artificial Tears (Refresh Classic) 1 drop TID OU Last administered on at 20:47; Start 12/26/17 at 17:00 Risperidone (RisperDAL) 0.5 mg HS PO Last administered on 12/27/17at 20:47; Start 12/26/17 at 22:30 Trazodone HCl (Desyrel) 50 mg PRN QHS PRN PO INSOMNIA; Start 12/26/17 at 22:30 Active Scripts Active Reported Zyprexa (Olanzapine) 20 Mg Tablet 20 Mg PO HS Zyprexa (Olanzapine) 10 Mg Tablet 10 Mg PO DAILY Trazodone Hcl 50 Mg Tablet 50 Mg PO HS Tegretol (Carbamazepine) 200 Mg Tablet 300 Mg PO BID Sorbitol (Sorbitol Solution) 1 Ml Solution 1 Ml MC Norvasc (Amlodipine Besylate) 5 Mg Tablet 5 Mg PO DAILY Elmer-128 (Sodium Chloride) 15 Ml Drops 1 Drop OD HS Miralax (Polyethylene Glycol 3350) 17 Gm Powd.pack 17 Gm PO DAILY Milk Of Magnesia (Magnesium Hydroxide) 2,400 Mg/10 Ml Oral.susp 2,400 Mg PO PRN DAILY PRN [place] Carbonate 300 Mg Tablet 300 Mg PO BID [place] Carbonate 150 Mg Capsule 150 Mg PO HS Lipitor (Atorvastatin Calcium) 20 Mg Tablet 20 Mg PO QHS Levothyroxine Sodium 75 Mcg Tablet 75 Mcg PO DAILYAC Estrace (Estradiol) 42.5 Gm Cream.appl 1 Gm VG HS QMON/ Insert at bedtime on Friday and Vitamin D2 (Ergocalciferol (Vitamin D2)) 50,000 Unit Capsule 50,000 Unit PO WEEKLY Endocet 10-325 Mg Tablet (Oxycodone Hcl/Acetaminophen) 1 Each Tablet 1 Tab PO PRN Q6HRS PRN [durezol] Buspirone Hcl 5 Mg Tablet 5 Mg PO PRN Q8HRS PRN Benztropine Mesylate 1 Mg Tablet 1 Mg PO BID Artificial Tears Eye Drops (Dextran 70/Hypromellose) 15 Ml Drops 1 Drop EACHEYE TID Tylenol (Acetaminophen) 325 Mg Tablet 650 Mg PO PRN Q6HRS PRN I have reviewed the current psychotropics carefully including drug interactions. Risk benefit ratio favors no change other than as noted in my dictated progress note. 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
[2017-12-28] MEDS: levoFLOXacin 500 MG TABLET PO SCH (04:40)
[2017-12-28] MEDS: LEVOTHYROXINE 75 MCG TABLET PO SCH (04:40)
[2017-12-28] MEDS: ACETAMINOPHEN 325 MG TABLET PO PRN (04:40)
[2017-12-28] MEDS: BENZTROPINE MESYLATE 1 MG TABLET PO SCH ×2 (07:52→20:50)
[2017-12-28] MEDS: POLYVINYL ALCOHOL/POVIDONE/PF OPHTH SOLUTION DROPERETTE. OU SCH ×3 (07:52→20:50)
[2017-12-28] MEDS: PHENAZOPYRIDINE 100 MG TABLET. PO SCH (07:52)
[2017-12-28] MEDS: POLYETHYLENE GLYCOL 3350 17 GM PACKET. PO SCH (07:52)
[2017-12-28] MEDS: carBAMazepine 200 MG TABLET PO SCH ×2 (07:53→20:52)
[2017-12-28] MEDS: LACTOBACILLUS RHAMNOSUS GG 1 CAPSULE. PO SCH ×2 (07:53→20:50)
[2017-12-28] MEDS: OLANZapine 10 MG TABLET PO SCH ×2 (07:53→20:51)
[2017-12-28] MEDS: amLODIPine BESYLATE 5 MG TABLET PO SCH (07:53)
[2017-12-28] MEDS: LITHIUM CARBONATE 300 MG TABLET PO SCH ×3 (07:54→20:53)
[2017-12-28 07:55] VITALS: BP 139/68
[2017-12-28 16:13] VITALS: BP 98/65
[2017-12-28] MEDS: CHOLECALCIFEROL (VITAMIN D3) 50,000 UNIT CAPSULE PO SCH (16:59)
--- NOTE | 2017-12-28 20:18 | PDOC ---
Exam Note: Julian Note: Please also refer to the separate dictated note~for this date of service dictated separately.~Patient seen individually. Discussed the patient with Nursing staff reviewed the chart.~Reviewed interim history and current functioning. Reviewed vital signs,~Labs/ Radiology~and current medications noted below. Continue current treatment with the changes noted in the dictated addendum note Assessment: Vital Signs: Vital Signs Date Time Temp Pulse Resp B/P (MAP) Pulse Ox O2 Delivery O2 Flow Rate FiO2 12/28/17 16:13 98.1 79 22 98/65 (76) 95 12/25/17 22:35 Room Air I&O Intake and Output 12/28/17 06:59 Intake Total 1800 ml Balance 1800 ml Intake Oral 1800 ml Current Medications: Meds: Current Medications Lactated Ringer's 1,000 ml @ 1,000 mls/hr Q1H IV Last administered on at 23:19; Start 12/25/17 at 23:30; Stop 12/26/17 at 00:29; Status DC Cephalexin HCl (Keflex) 500 mg 1X ONCE PO Last administered on 12/26/17at 05:32 ; Start 12/26/17 at 01:15; Stop 12/26/17 at 01:16; Status DC Levofloxacin (Levaquin) 500 mg 1X ONCE PO Last administered on 12/26/17at 01:45 ; Start 12/26/17 at 01:45; Stop 12/26/17 at 01:46; Status DC Levofloxacin (Levaquin) 500 mg DAILY06 PO Last administered on 12/28/17at 04:40 ; Start 12/27/17 at 06:00 Multi-Ingredient Ointment (Analgesic [place]) 1 barbara PRN QID PRN TP MUSCLE PAIN; Start 12/26/17 at 05:15 Al Hydroxide/Mg Hydroxide (Mylanta Plus Xs) 15 ml PRN AFTMEALHC PRN PO DYSPEPSIA; Start 12/26/17 at 05:15 Acetaminophen (Tylenol) 650 mg PRN Q6HRS PRN PO PAIN / TEMP Last administered on 12/28/17at 04:40; Start 12/26/17 at 05:15 Atorvastatin Calcium (Lipitor) 20 mg QHS PO Last administered on 12/27/17at 20: 44; Start 12/26/17 at 21:00 Estradiol (Estrace) 1 barbara QMTH VG ; Start 12/29/17 at 16:00 Levothyroxine Sodium (Synthroid) 75 mcg DAILY07 PO Last administered on at 04:40; Start 12/26/17 at 07:00 Oxycodone/ Acetaminophen (Percocet 10/325) 1 tab PRN Q6HRS PRN PO PAIN Last administered on 12/27/17 13:18; Start 12/26/17 at 05:15 Sorbitol (Sorbitol Solution) 30 ml PRN DAILY PRN PO CONSTIPATION; Start at 05:15 Amlodipine Besylate (Norvasc) 5 mg DAILY PO Last administered on 12/28/17 07: 53; Start 12/26/17 at 09:00 Artificial Tears (Artificial Tears) 1 drop TID OU Last administered on 14:19; Start 12/26/17 at 09:00; Stop 12/26/17 at 16:57; Status DC Vitamin D (Vitamin D3) 50,000 unit QSU PO Last administered on 12/28/17 16:59 ; Start 12/28/17 at 16:00 Magnesium Hydroxide (Milk Of Magnesia) 2,400 mg PRN DAILY PRN PO CONSTIPATION; Start 12/26/17 at 05:15 Polyethylene Glycol (miraLAX) 17 gm DAILY PO Last administered on 12/28/17 07: 52; Start 12/26/17 at 09:00 Sodium Chloride ([place]) 0.25 inch HS OD Last administered on 12/27/17at 20:45; Start 12/26/17 at 21:00 Carbamazepine (TEGretol) 300 mg BID PO Last administered on 12/28/17 07:53; Start 12/26/17 at 09:00 Benztropine Mesylate (Cogentin) 1 mg BID PO Last administered on 12/28/17 07: 52; Start 12/26/17 at 09:00 Buspirone HCl (Buspar) 5 mg PRN Q8HRS PRN PO PSYCHOSIS Last administered on 08:09; Start 12/26/17 at 05:30 [place] Carbonate 150 mg HS PO Last administered on 12/27/17at 20:45; Start 03/05 at 21:00 [place] Carbonate 300 mg BID PO Last administered on 12/28/17 07:54; Start 03/05 at 09:00 Olanzapine (ZyPREXA) 10 mg DAILY PO Last administered on 12/28/17 07:53; Start 12/26/17 at 09:00 Olanzapine (ZyPREXA) 20 mg HS PO Last administered on 12/27/17at 20:47; Start at 21:00 Trazodone HCl (Desyrel) 50 mg QHS PO Last administered on 12/27/17at 20:47; Start 12/26/17 at 21:00 Cephalexin HCl (Keflex) 250 mg STK-MED ONCE .ROUTE ; Start 12/26/17 at 05:29; Stop 12/26/17 at 05:30; Status DC Lactobacillus Rhamnosus (Culturelle) 1 cap BID PO Last administered on at 07:53; Start 12/26/17 at 09:00 Phenazopyridine HCl (Pyridium) 100 mg TID PO Last administered on 12/28/17at 07: 52; Start 12/26/17 at 14:00; Stop 12/28/17 at 13:00; Status DC Artificial Tears (Refresh Classic) 1 drop TID OU ; Start 12/26/17 at 17:00; Stop 12/26/17 at 17:00; Status DC Artificial Tears (Refresh Classic) 1 drop TID OU Last administered on at 12:59; Start 12/26/17 at 17:00 Risperidone (RisperDAL) 0.5 mg HS PO Last administered on 12/27/17at 20:47; Start 12/26/17 at 22:30 Trazodone HCl (Desyrel) 50 mg PRN QHS PRN PO INSOMNIA; Start 12/26/17 at 22:30 Active Scripts Active Reported Zyprexa (Olanzapine) 20 Mg Tablet 20 Mg PO HS Zyprexa (Olanzapine) 10 Mg Tablet 10 Mg PO DAILY Trazodone Hcl 50 Mg Tablet 50 Mg PO HS Tegretol (Carbamazepine) 200 Mg Tablet 300 Mg PO BID Sorbitol (Sorbitol Solution) 1 Ml Solution 1 Ml MC Norvasc (Amlodipine Besylate) 5 Mg Tablet 5 Mg PO DAILY [place]-128 (Sodium Chloride) 15 Ml Drops 1 Drop OD HS Miralax (Polyethylene Glycol 3350) 17 Gm Powd.pack 17 Gm PO DAILY Milk Of Magnesia (Magnesium Hydroxide) 2,400 Mg/10 Ml Oral.susp 2,400 Mg PO PRN DAILY PRN [place] Carbonate 300 Mg Tablet 300 Mg PO BID [place] Carbonate 150 Mg Capsule 150 Mg PO HS Lipitor (Atorvastatin Calcium) 20 Mg Tablet 20 Mg PO QHS Levothyroxine Sodium 75 Mcg Tablet 75 Mcg PO DAILYAC Estrace (Estradiol) 42.5 Gm Cream.appl 1 Gm VG HS QM/ Insert at bedtime on Friday and Vitamin D2 (Ergocalciferol (Vitamin D2)) 50,000 Unit Capsule 50,000 Unit PO WEEKLY Endocet 10-325 Mg Tablet (Oxycodone Hcl/Acetaminophen) 1 Each Tablet 1 Tab PO PRN Q6HRS PRN [durezol] Buspirone Hcl 5 Mg Tablet 5 Mg PO PRN Q8HRS PRN Benztropine Mesylate 1 Mg Tablet 1 Mg PO BID Artificial Tears Eye Drops (Dextran 70/Hypromellose) 15 Ml Drops 1 Drop EACHEYE TID Tylenol (Acetaminophen) 325 Mg Tablet 650 Mg PO PRN Q6HRS PRN I have reviewed the current psychotropics carefully including drug interactions. Risk benefit ratio favors no change other than as noted in my dictated progress note. 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
[2017-12-28] MEDS: traZODone 50 MG TABLET. PO SCH (20:51)
[2017-12-28] MEDS: ATORVASTATIN CALCIUM 20 MG TABLET PO SCH (20:51)
[2017-12-28] MEDS: risperiDONE 0.5 MG TABLET. PO SCH (20:51)
[2017-12-28] MEDS: SODIUM CHLORIDE 5% OPHTH OINTMENT 3.5GM TUBE. OD SCH (20:53)
--- NOTE | 2017-12-29 00:19 | PN ---
DATE: 12/27/2017 This is a late entry, 12/27/2017, covers the elements not covered in my initial note. SUBJECTIVE: I met with the patient evening of 12/27/2017. The patient slept 7-1/2 hours previous evening. She has had a very difficult day. She has been irritable, mean, yelling, screaming, psychotic, labile, obsessed about wanting her closet door open and impulsive. Tegretol level 10.2, therapeutic lithium 1.2. She does have a UTI, which is probably exacerbating her bipolar symptoms. REVIEW OF SYSTEMS: Vague somatic symptoms. No complains of vague symptoms. No CV, eye, ENT, pulmonary system symptoms on review. MENTAL STATUS EXAM: Reasonably oriented. Speech coherent, rapid at times. Abstraction fair, computation impaired, language function intact, attention span short. Mood and affect, very labile, psychotic. LABORATORY DATA: Reviewed. IMPRESSION: Bipolar 1 disorder, mixed with psychotic features; anxiety disorder, unspecified; impulse control disorder, unspecified. PLAN: Continue psychotropics from initial note. Treat the urinary tract infection, may need to increase Risperdal. We are using two atypical antipsychotics, Zyprexa, a total of 30 mg a day, but we will have to reduce these only once, she is a little more psychiatrically stable. MAN Rox WATT MD DR: SANCHEZ/fredrick JOB#: [id number] / [id number]
[2017-12-29] MEDS: LEVOTHYROXINE 75 MCG TABLET PO SCH (05:31)
[2017-12-29] MEDS: levoFLOXacin 500 MG TABLET PO SCH (05:32)
[2017-12-29 06:48] VITALS: BP 134/77
[2017-12-29] MEDS: POLYVINYL ALCOHOL/POVIDONE/PF OPHTH SOLUTION DROPERETTE. OU SCH ×3 (08:03→21:34)
[2017-12-29] MEDS: amLODIPine BESYLATE 5 MG TABLET PO SCH (08:03)
[2017-12-29] MEDS: POLYETHYLENE GLYCOL 3350 17 GM PACKET. PO SCH (08:03)
[2017-12-29] MEDS: BENZTROPINE MESYLATE 1 MG TABLET PO SCH ×2 (08:04→21:33)
[2017-12-29] MEDS: OLANZapine 10 MG TABLET PO SCH ×2 (08:04→21:34)
[2017-12-29] MEDS: carBAMazepine 200 MG TABLET PO SCH ×2 (08:04→21:33)
[2017-12-29] MEDS: LITHIUM CARBONATE 300 MG TABLET PO SCH ×3 (08:04→21:32)
[2017-12-29] MEDS: LACTOBACILLUS RHAMNOSUS GG 1 CAPSULE. PO SCH ×2 (08:04→21:33)
[2017-12-29] MEDS: ACETAMINOPHEN 325 MG TABLET PO PRN (08:08)
--- NOTE | 2017-12-29 08:41 | RAD ---
Right hand, 3 views, 12/26/2017, 12:14 AM: HISTORY: Hand injury There is posterior dislocation of the little finger at the PIP joint. There is associated soft tissue swelling. No fracture is identified. There are mild scattered degenerative changes. Minimal periarticular calcifications are seen at several MCP joints. IMPRESSION: Dislocation of the little finger at the PIP joint. Right hand, 3 views, 12/26/2017, 1:17 AM: The above-described little finger dislocation has been reduced. No fracture is identified. IMPRESSION: Satisfactory reduction of the dislocated little finger. Electronically signed by: Elgin Valentine MD (12/26/2017 7:41 AM) [facility]TD[facility]
[2017-12-29] MEDS ORDERED: ESTRADIOL 0.01% VAGINAL CREAM 42.5GM TUBE. VG SCH (16:00)
[2017-12-29 16:26] VITALS: BP 146/76
[2017-12-29] MEDS: risperiDONE 0.5 MG TABLET. PO SCH (21:33)
[2017-12-29] MEDS: ATORVASTATIN CALCIUM 20 MG TABLET PO SCH (21:33)
[2017-12-29] MEDS: traZODone 50 MG TABLET. PO SCH (21:33)
[2017-12-29] MEDS: SODIUM CHLORIDE 5% OPHTH OINTMENT 3.5GM TUBE. OD SCH (21:36)
[2017-12-29] MEDS: ESTRADIOL 0.01% VAGINAL CREAM 42.5GM TUBE. VG SCH (21:36)
--- NOTE | 2017-12-29 22:40 | PDOC ---
Exam Note: Julian Note: Please also refer to the separate dictated note~for this date of service dictated separately.~Patient seen individually. Discussed the patient with Nursing staff reviewed the chart.~Reviewed interim history and current functioning. Reviewed vital signs,~Labs/ Radiology~and current medications noted below. Continue current treatment with the changes noted in the dictated addendum note Assessment: Vital Signs: Vital Signs Date Time Temp Pulse Resp B/P (MAP) Pulse Ox O2 Delivery O2 Flow Rate FiO2 12/29/17 16:26 98.9 87 18 146/76 (99) 93 12/29/17 06:48 Room Air I&O Intake and Output 12/29/17 06:59 Intake Total 1800 ml Balance 1800 ml Intake Oral 1800 ml Current Medications: Meds: Current Medications Lactated Ringer's 1,000 ml @ 1,000 mls/hr Q1H IV Last administered on at 23:19; Start 12/25/17 at 23:30; Stop 12/26/17 at 00:29; Status DC Cephalexin HCl (Keflex) 500 mg 1X ONCE PO Last administered on 12/26/17at 05:32 ; Start 12/26/17 at 01:15; Stop 12/26/17 at 01:16; Status DC Levofloxacin (Levaquin) 500 mg 1X ONCE PO Last administered on 12/26/17at 01:45 ; Start 12/26/17 at 01:45; Stop 12/26/17 at 01:46; Status DC Levofloxacin (Levaquin) 500 mg DAILY06 PO Last administered on 12/29/17at 05:32 ; Start 12/27/17 at 06:00; Stop 12/29/17 at 12:04; Status DC Multi-Ingredient Ointment (Analgesic [place]) 1 barbara PRN QID PRN TP MUSCLE PAIN; Start 12/26/17 at 05:15 Al Hydroxide/Mg Hydroxide (Mylanta Plus Xs) 15 ml PRN AFTMEALHC PRN PO DYSPEPSIA; Start 12/26/17 at 05:15 Acetaminophen (Tylenol) 650 mg PRN Q6HRS PRN PO PAIN / TEMP Last administered on 12/29/17at 08:08; Start 12/26/17 at 05:15 Atorvastatin Calcium (Lipitor) 20 mg QHS PO Last administered on 12/29/17at 21: 33; Start 12/26/17 at 21:00 Estradiol (Estrace) 1 barbara QMTH VG ; Start 12/29/17 at 16:00; Stop 12/29/17 at 16 :06; Status DC Levothyroxine Sodium (Synthroid) 75 mcg DAILY07 PO Last administered on at 05:31; Start 12/26/17 at 07:00 Oxycodone/ Acetaminophen (Percocet 10/325) 1 tab PRN Q6HRS PRN PO PAIN Last administered on 12/27/17at 13:18; Start 12/26/17 at 05:15 Sorbitol (Sorbitol Solution) 30 ml PRN DAILY PRN PO CONSTIPATION; Start at 05:15 Amlodipine Besylate (Norvasc) 5 mg DAILY PO Last administered on 12/29/17at 08: 03; Start 12/26/17 at 09:00 Artificial Tears (Artificial Tears) 1 drop TID OU Last administered on at 14:19; Start 12/26/17 at 09:00; Stop 12/26/17 at 16:57; Status DC Vitamin D (Vitamin D3) 50,000 unit QSU PO Last administered on 12/28/17at 16:59 ; Start 12/28/17 at 16:00 Magnesium Hydroxide (Milk Of Magnesia) 2,400 mg PRN DAILY PRN PO CONSTIPATION; Start 12/26/17 at 05:15 Polyethylene Glycol (miraLAX) 17 gm DAILY PO Last administered on 12/29/17at 08: 03; Start 12/26/17 at 09:00 Sodium Chloride ([place]) 0.25 inch HS OD Last administered on 12/29/17at 21:36; Start 12/26/17 at 21:00 Carbamazepine (TEGretol) 300 mg BID PO Last administered on 12/29/17 21:33; Start 12/26/17 at 09:00 Benztropine Mesylate (Cogentin) 1 mg BID PO Last administered on 12/29/17at 21: 33; Start 12/26/17 at 09:00 Buspirone HCl (Buspar) 5 mg PRN Q8HRS PRN PO PSYCHOSIS Last administered on 03/05at 08:09; Start 12/26/17 at 05:30 [place] Carbonate 150 mg HS PO Last administered on 12/29/17 21:32; Start 03/05 at 21:00 [place] Carbonate 300 mg BID PO Last administered on 12/29/17 21:32; Start 03/05 at 09:00 Olanzapine (ZyPREXA) 10 mg DAILY PO Last administered on 12/29/17 08:04; Start 12/26/17 at 09:00 Olanzapine (ZyPREXA) 20 mg HS PO Last administered on 12/29/17 21:34; Start at 21:00 Trazodone HCl (Desyrel) 50 mg QHS PO Last administered on 12/29/17 21:33; Start 12/26/17 at 21:00 Cephalexin HCl (Keflex) 250 mg STK-MED ONCE .ROUTE ; Start 12/26/17 at 05:29; Stop 12/26/17 at 05:30; Status DC Lactobacillus Rhamnosus (Culturelle) 1 cap BID PO Last administered on 21:33; Start 12/26/17 at 09:00 Phenazopyridine HCl (Pyridium) 100 mg TID PO Last administered on 12/28/17at 07: 52; Start 12/26/17 at 14:00; Stop 12/28/17 at 13:00; Status DC Artificial Tears (Refresh Classic) 1 drop TID OU ; Start 12/26/17 at 17:00; Stop 12/26/17 at 17:00; Status DC Artificial Tears (Refresh Classic) 1 drop TID OU Last administered on 21:34; Start 12/26/17 at 17:00 Risperidone (RisperDAL) 0.5 mg HS PO Last administered on 12/29/17 21:33; Start 12/26/17 at 22:30 Trazodone HCl (Desyrel) 50 mg PRN QHS PRN PO INSOMNIA; Start 12/26/17 at 22:30 Estradiol (Estrace) 1 barbara QMTH@2100 VG Last administered on 12/29/17at 21:36; Start 12/29/17 at 21:00 Active Scripts Active Reported Zyprexa (Olanzapine) 20 Mg Tablet 20 Mg PO HS Zyprexa (Olanzapine) 10 Mg Tablet 10 Mg PO DAILY Trazodone Hcl 50 Mg Tablet 50 Mg PO HS Tegretol (Carbamazepine) 200 Mg Tablet 300 Mg PO BID Sorbitol (Sorbitol Solution) 1 Ml Solution 1 Ml MC Norvasc (Amlodipine Besylate) 5 Mg Tablet 5 Mg PO DAILY [place]-128 (Sodium Chloride) 15 Ml Drops 1 Drop OD HS Miralax (Polyethylene Glycol 3350) 17 Gm Powd.pack 17 Gm PO DAILY Milk Of Magnesia (Magnesium Hydroxide) 2,400 Mg/10 Ml Oral.susp 2,400 Mg PO PRN DAILY PRN [place] Carbonate 300 Mg Tablet 300 Mg PO BID [place] Carbonate 150 Mg Capsule 150 Mg PO HS Lipitor (Atorvastatin Calcium) 20 Mg Tablet 20 Mg PO QHS Levothyroxine Sodium 75 Mcg Tablet 75 Mcg PO DAILYAC Estrace (Estradiol) 42.5 Gm Cream.appl 1 Gm VG HS QMON/ Insert at bedtime on Friday and Vitamin D2 (Ergocalciferol (Vitamin D2)) 50,000 Unit Capsule 50,000 Unit PO WEEKLY Endocet 10-325 Mg Tablet (Oxycodone Hcl/Acetaminophen) 1 Each Tablet 1 Tab PO PRN Q6HRS PRN [durezol] Buspirone Hcl 5 Mg Tablet 5 Mg PO PRN Q8HRS PRN Benztropine Mesylate 1 Mg Tablet 1 Mg PO BID Artificial Tears Eye Drops (Dextran 70/Hypromellose) 15 Ml Drops 1 Drop EACHEYE TID Tylenol (Acetaminophen) 325 Mg Tablet 650 Mg PO PRN Q6HRS PRN I have reviewed the current psychotropics carefully including drug interactions. Risk benefit ratio favors no change other than as noted in my dictated progress note. 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
[2017-12-30] MEDS: LEVOTHYROXINE 75 MCG TABLET PO SCH (05:26)
[2017-12-30] MEDS: ACETAMINOPHEN 325 MG TABLET PO PRN ×2 (05:30→13:47)
[2017-12-30 06:16] VITALS: BP 166/79
[2017-12-30] MEDS: LACTOBACILLUS RHAMNOSUS GG 1 CAPSULE. PO SCH ×2 (09:17→20:10)
[2017-12-30] MEDS: BENZTROPINE MESYLATE 1 MG TABLET PO SCH (09:17)
[2017-12-30] MEDS: POLYETHYLENE GLYCOL 3350 17 GM PACKET. PO SCH (09:17)
[2017-12-30] MEDS: carBAMazepine 200 MG TABLET PO SCH ×2 (09:18→20:12)
[2017-12-30] MEDS: amLODIPine BESYLATE 5 MG TABLET PO SCH (09:19)
[2017-12-30] MEDS: LITHIUM CARBONATE 300 MG TABLET PO SCH ×3 (09:19→20:34)
[2017-12-30] MEDS: OLANZapine 10 MG TABLET PO SCH ×2 (09:20→20:11)
[2017-12-30] MEDS: POLYVINYL ALCOHOL/POVIDONE/PF OPHTH SOLUTION DROPERETTE. OU SCH ×3 (09:20→20:43)
--- NOTE | 2017-12-30 13:08 | PN ---
DATE: 12/28/2017 PSYCHIATRIC PROGRESS NOTE This is a late entry, 12/28, covers elements not covered in my initial note SUBJECTIVE: I met with the patient in the evening. The patient slept 5-1/2 hours previous evening. The patient was agitated, threw her CPAP machine, agitated with staff and her roommate, demanding needy. She is well oriented. REVIEW OF SYSTEMS: No CV, , pulmonary, eye, ENT system symptoms on review. MENTAL STATUS EXAM: Reasonably oriented. Speech coherent, somewhat pressured at times. Abstraction fair, computation impaired, language function intact. Mood and affect remains labile, manic, grandiose, but less so than before. LABORATORY DATA: Reviewed. IMPRESSION: Bipolar 1 disorder, manic with psychotic features; urinary tract infection. Rest unchanged. PLAN: Continue psychotropics from initial note. [place] level therapeutic at 1.2. Tegretol therapeutic at 10.2. Treat the UTI. Adjust further as clinically indicated. Risperdal was added together with Zyprexa maintained. MAN Rox WATT MD DR: SANCHEZ/fredrick JOB#: [id number] / [id number]
[2017-12-30 16:20] VITALS: BP 149/85
[2017-12-30] MEDS: ATORVASTATIN CALCIUM 20 MG TABLET PO SCH (20:10)
[2017-12-30] MEDS: traZODone 50 MG TABLET. PO SCH (20:12)
[2017-12-30] MEDS: BENZTROPINE MESYLATE 0.5 MG TABLET PO SCH (20:31)
[2017-12-30] MEDS: risperiDONE 1 MG TABLET. PO SCH (20:31)
[2017-12-30] MEDS: SODIUM CHLORIDE 5% OPHTH OINTMENT 3.5GM TUBE. OD SCH (20:34)
--- NOTE | 2017-12-31 00:57 | PN ---
DATE: 12/29/2017 PSYCHIATRIC PROGRESS NOTE This is a late entry, 12/29, covers elements not covered in my initial note. SUBJECTIVE: I met with the patient in the evening. The patient slept 7-1/4 hours previous evening. She is rude, demanding, sarcastic, impatient wanting things right then, renting, raving per nursing report regarding stain on her shirt, little is seen however. REVIEW OF SYSTEMS: No CV, , pulmonary, eye, ENT system symptoms on review. Complains of discomfort of her ring finger, status post fracture, but she has removed the splint. MENTAL STATUS EXAM: Reasonably oriented. Speech coherent, rapid, loud at times. Abstraction fair, computation impaired, language function intact, attention span short. Mood and affect remain somewhat grandiose, labile. LABORATORY DATA: Reviewed. IMPRESSION: Unchanged from initial note. PLAN: No change from initial note. KIERSTEN WATT MD DR: SANCHEZ/fredrick JOB#: [id number] / [id number]
[2017-12-31 05:56] VITALS: BP 165/94
[2017-12-31] MEDS: LEVOTHYROXINE 75 MCG TABLET PO SCH (06:04)
[2017-12-31] MEDS: BENZTROPINE MESYLATE 0.5 MG TABLET PO SCH ×2 (08:58→20:45)
[2017-12-31] MEDS: LITHIUM CARBONATE 300 MG TABLET PO SCH ×2 (08:58→20:50)
[2017-12-31] MEDS: LACTOBACILLUS RHAMNOSUS GG 1 CAPSULE. PO SCH ×2 (08:58→20:46)
[2017-12-31] MEDS: POLYETHYLENE GLYCOL 3350 17 GM PACKET. PO SCH (08:59)
[2017-12-31] MEDS: carBAMazepine 200 MG TABLET PO SCH ×2 (08:59→20:46)
[2017-12-31] MEDS: OLANZapine 10 MG TABLET PO SCH ×2 (08:59→20:45)
[2017-12-31] MEDS: amLODIPine BESYLATE 5 MG TABLET PO SCH (09:00)
[2017-12-31] MEDS: SODIUM CHLORIDE 5% OPHTH OINTMENT 3.5GM TUBE. OD SCH ×2 (09:00→20:50)
[2017-12-31] MEDS: POLYVINYL ALCOHOL/POVIDONE/PF OPHTH SOLUTION DROPERETTE. OU SCH ×3 (09:13→20:47)
[2017-12-31] MEDS: ACETAMINOPHEN 325 MG TABLET PO PRN (09:55)
[2017-12-31 16:22] VITALS: BP 121/86
[2017-12-31] MEDS: ATORVASTATIN CALCIUM 20 MG TABLET PO SCH (20:45)
[2017-12-31] MEDS: risperiDONE 1 MG TABLET. PO SCH (20:45)
[2017-12-31] MEDS: traZODone 50 MG TABLET. PO SCH (20:45)
--- NOTE | 2018-01-01 00:44 | PN ---
DATE: 12/30/2017 PSYCHIATRIC PROGRESS NOTE This is a late entry, 12/30, covers elements not covered in my initial note. SUBJECTIVE: I met with the patient evening of 12/30. The patient slept 6-1/2 hours previous evening. Per nursing report, she is noted to be rude and gruff and demanding, knocking on the windows, irritable, needy per nursing report. REVIEW OF SYSTEMS: No CV, , pulmonary, eye, ENT system symptoms on review. MENTAL STATUS EXAM: Reasonably oriented. Speech coherent, rapid, loud at times, somewhat gruff, abrasive. Abstraction fair, computation impaired, language function intact. Short term memory is impaired. No active suicidal or homicidal ideation. LABORATORY DATA: Reviewed. IMPRESSION: Bipolar 1 disorder, mixed with psychotic features. Rest unchanged. PLAN: Risperdal is 0.5 mg at bedtime. We will increase to 1 mg at bedtime for her ongoing psychotic symptoms. Cogentin is 1 mg b.i.d. No symptoms of extrapyramidal symptoms, reduced to 0.5 b.i.d. Rest unchanged from initial note. Reduce Zyprexa from 20 mg at bedtime to 10 mg at bedtime. Continue 10 mg in the morning. Maintain BuSpar, lithium, Tegretol, and trazodone. [place] and Tegretol level are therapeutic. MAN Rox WATT MD DR: SANCHEZ/fredrick JOB#: [id number] / [id number]
--- NOTE | 2018-01-01 02:57 | PDOC ---
Exam Note: Julian Note: Please also refer to the separate dictated note~for this date of service dictated separately.~Patient seen individually. Discussed the patient with Nursing staff reviewed the chart.~Reviewed interim history and current functioning. Reviewed vital signs,~Labs/ Radiology~and current medications noted below. Continue current treatment with the changes noted in the dictated addendum note Assessment: Vital Signs: Vital Signs Date Time Temp Pulse Resp B/P (MAP) Pulse Ox O2 Delivery O2 Flow Rate FiO2 12/31/17 16:22 98.1 67 18 121/86 (98) 94 12/30/17 16:20 Room Air I&O Intake and Output 01/01/18 07:00 Intake Total 1560 ml Balance 1560 ml Intake Oral 1560 ml # Voids 1 Current Medications: Meds: Current Medications Lactated Ringer's 1,000 ml @ 1,000 mls/hr Q1H IV Last administered on at 23:19; Start 12/25/17 at 23:30; Stop 12/26/17 at 00:29; Status DC Cephalexin HCl (Keflex) 500 mg 1X ONCE PO Last administered on 12/26/17at 05:32 ; Start 12/26/17 at 01:15; Stop 12/26/17 at 01:16; Status DC Levofloxacin (Levaquin) 500 mg 1X ONCE PO Last administered on 12/26/17at 01:45 ; Start 12/26/17 at 01:45; Stop 12/26/17 at 01:46; Status DC Levofloxacin (Levaquin) 500 mg DAILY06 PO Last administered on 12/29/17at 05:32 ; Start 12/27/17 at 06:00; Stop 12/29/17 at 12:04; Status DC Multi-Ingredient Ointment (Analgesic [place]) 1 barbara PRN QID PRN TP MUSCLE PAIN; Start 12/26/17 at 05:15 Al Hydroxide/Mg Hydroxide (Mylanta Plus Xs) 15 ml PRN AFTMEALHC PRN PO DYSPEPSIA; Start 12/26/17 at 05:15 Acetaminophen (Tylenol) 650 mg PRN Q6HRS PRN PO PAIN / TEMP Last administered on 12/31/17at 09:55; Start 12/26/17 at 05:15 Atorvastatin Calcium (Lipitor) 20 mg QHS PO Last administered on 12/31/17at 20: 45; Start 12/26/17 at 21:00 Estradiol (Estrace) 1 barbara QMTH VG ; Start 12/29/17 at 16:00; Stop 12/29/17 at 16 :06; Status DC Levothyroxine Sodium (Synthroid) 75 mcg DAILY07 PO Last administered on at 06:04; Start 12/26/17 at 07:00 Oxycodone/ Acetaminophen (Percocet 10/325) 1 tab PRN Q6HRS PRN PO PAIN Last administered on 12/27/17at 13:18; Start 12/26/17 at 05:15 Sorbitol (Sorbitol Solution) 30 ml PRN DAILY PRN PO CONSTIPATION; Start at 05:15 Amlodipine Besylate (Norvasc) 5 mg DAILY PO Last administered on 12/31/17at 09: 00; Start 12/26/17 at 09:00 Artificial Tears (Artificial Tears) 1 drop TID OU Last administered on at 14:19; Start 12/26/17 at 09:00; Stop 12/26/17 at 16:57; Status DC Vitamin D (Vitamin D3) 50,000 unit QSU PO Last administered on 12/28/17 16:59 ; Start 12/28/17 at 16:00 Magnesium Hydroxide (Milk Of Magnesia) 2,400 mg PRN DAILY PRN PO CONSTIPATION; Start 12/26/17 at 05:15 Polyethylene Glycol (miraLAX) 17 gm DAILY PO Last administered on 12/31/17at 08: 59; Start 12/26/17 at 09:00 Sodium Chloride (Elmer) 0.25 inch HS OD Last administered on 12/31/17at 20:50; Start 12/26/17 at 21:00 Carbamazepine (TEGretol) 300 mg BID PO Last administered on 12/31/17 20:46; Start 12/26/17 at 09:00 Benztropine Mesylate (Cogentin) 1 mg BID PO Last administered on 12/30/17at 09: 17; Start 12/26/17 at 09:00; Stop 12/30/17 at 18:50; Status DC Buspirone HCl (Buspar) 5 mg PRN Q8HRS PRN PO PSYCHOSIS Last administered on 03/05at 08:09; Start 12/26/17 at 05:30 [place] Carbonate 150 mg HS PO Last administered on 12/30/17 20:34; Start 03/05 at 21:00; Stop 12/30/17 at 22:00; Status DC [place] Carbonate 300 mg BID PO Last administered on 12/30/17at 20:34; Start 03/05 at 09:00; Stop 12/30/17 at 22:00; Status DC Olanzapine (ZyPREXA) 10 mg DAILY PO Last administered on 12/31/17at 08:59; Start 12/26/17 at 09:00 Olanzapine (ZyPREXA) 20 mg HS PO Last administered on 12/29/17 21:34; Start at 21:00; Stop 12/30/17 at 18:50; Status DC Trazodone HCl (Desyrel) 50 mg QHS PO Last administered on 12/31/17at 20:45; Start 12/26/17 at 21:00 Cephalexin HCl (Keflex) 250 mg STK-MED ONCE .ROUTE ; Start 12/26/17 at 05:29; Stop 12/26/17 at 05:30; Status DC Lactobacillus Rhamnosus (Culturelle) 1 cap BID PO Last administered on at 20:46; Start 12/26/17 at 09:00 Phenazopyridine HCl (Pyridium) 100 mg TID PO Last administered on 12/28/17at 07: 52; Start 12/26/17 at 14:00; Stop 12/28/17 at 13:00; Status DC Artificial Tears (Refresh Classic) 1 drop TID OU ; Start 12/26/17 at 17:00; Stop 12/26/17 at 17:00; Status DC Artificial Tears (Refresh Classic) 1 drop TID OU Last administered on at 20:47; Start 12/26/17 at 17:00 Risperidone (RisperDAL) 0.5 mg HS PO Last administered on 12/29/17at 21:33; Start 12/26/17 at 22:30; Stop 12/30/17 at 18:50; Status DC Trazodone HCl (Desyrel) 50 mg PRN QHS PRN PO INSOMNIA; Start 12/26/17 at 22:30 Estradiol (Estrace) 1 barbara QMTH@2100 VG Last administered on 12/29/17at 21:36; Start 12/29/17 at 21:00 Benztropine Mesylate (Cogentin) 0.5 mg BID PO Last administered on 12/31/17at 20 :45; Start 12/30/17 at 21:00 Olanzapine (ZyPREXA) 10 mg HS PO Last administered on 12/31/17at 20:45; Start at 21:00 Risperidone (RisperDAL) 1 mg HS PO Last administered on 12/31/17at 20:45; Start 12/30/17 at 21:00 [place] Carbonate 450 mg HS PO Last administered on 12/31/17at 20:50; Start at 21:00 [place] Carbonate 300 mg DAILY PO Last administered on 12/31/17at 08:58; Start 12/31/17 at 09:00 Active Scripts Active Reported Zyprexa (Olanzapine) 20 Mg Tablet 20 Mg PO HS Zyprexa (Olanzapine) 10 Mg Tablet 10 Mg PO DAILY Trazodone Hcl 50 Mg Tablet 50 Mg PO HS Tegretol (Carbamazepine) 200 Mg Tablet 300 Mg PO BID Sorbitol (Sorbitol Solution) 1 Ml Solution 1 Ml MC Norvasc (Amlodipine Besylate) 5 Mg Tablet 5 Mg PO DAILY Elmer-128 (Sodium Chloride) 15 Ml Drops 1 Drop OD HS Miralax (Polyethylene Glycol 3350) 17 Gm Powd.pack 17 Gm PO DAILY Milk Of Magnesia (Magnesium Hydroxide) 2,400 Mg/10 Ml Oral.susp 2,400 Mg PO PRN DAILY PRN [place] Carbonate 300 Mg Tablet 300 Mg PO BID [place] Carbonate 150 Mg Capsule 150 Mg PO HS Lipitor (Atorvastatin Calcium) 20 Mg Tablet 20 Mg PO QHS Levothyroxine Sodium 75 Mcg Tablet 75 Mcg PO DAILYAC Estrace (Estradiol) 42.5 Gm Cream.appl 1 Gm VG HS QMON/THURS Insert at bedtime on Friday and Vitamin D2 (Ergocalciferol (Vitamin D2)) 50,000 Unit Capsule 50,000 Unit PO WEEKLY Endocet 10-325 Mg Tablet (Oxycodone Hcl/Acetaminophen) 1 Each Tablet 1 Tab PO PRN Q6HRS PRN [durezol] Buspirone Hcl 5 Mg Tablet 5 Mg PO PRN Q8HRS PRN Benztropine Mesylate 1 Mg Tablet 1 Mg PO BID Artificial Tears Eye Drops (Dextran 70/Hypromellose) 15 Ml Drops 1 Drop EACHEYE TID Tylenol (Acetaminophen) 325 Mg Tablet 650 Mg PO PRN Q6HRS PRN I have reviewed the current psychotropics carefully including drug interactions. Risk benefit ratio favors no change other than as noted in my dictated progress note. 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
[2018-01-01] MEDS: ACETAMINOPHEN 325 MG TABLET PO PRN ×2 (04:26→17:56)
[2018-01-01] MEDS: LEVOTHYROXINE 75 MCG TABLET PO SCH (04:29)
[2018-01-01 06:12] VITALS: BP 133/94
[2018-01-01] MEDS: OLANZapine 10 MG TABLET PO SCH ×2 (08:10→19:58)
[2018-01-01] MEDS: carBAMazepine 200 MG TABLET PO SCH ×2 (08:10→19:57)
[2018-01-01] MEDS: BENZTROPINE MESYLATE 0.5 MG TABLET PO SCH ×2 (08:10→19:57)
[2018-01-01] MEDS: LACTOBACILLUS RHAMNOSUS GG 1 CAPSULE. PO SCH ×2 (08:10→19:58)
[2018-01-01] MEDS: POLYETHYLENE GLYCOL 3350 17 GM PACKET. PO SCH (08:11)
[2018-01-01] MEDS: amLODIPine BESYLATE 5 MG TABLET PO SCH (08:11)
[2018-01-01] MEDS: LITHIUM CARBONATE 300 MG TABLET PO SCH ×2 (08:11→19:58)
[2018-01-01] MEDS: POLYVINYL ALCOHOL/POVIDONE/PF OPHTH SOLUTION DROPERETTE. OU SCH ×3 (08:12→19:57)
[2018-01-01 16:12] VITALS: BP 126/75
[2018-01-01] MEDS: ATORVASTATIN CALCIUM 20 MG TABLET PO SCH (19:57)
[2018-01-01] MEDS: risperiDONE 1 MG TABLET. PO SCH (19:58)
[2018-01-01] MEDS: traZODone 50 MG TABLET. PO SCH (19:58)
[2018-01-01] MEDS: SODIUM CHLORIDE 5% OPHTH OINTMENT 3.5GM TUBE. OD SCH (20:00)
[2018-01-01] MEDS: ESTRADIOL 0.01% VAGINAL CREAM 42.5GM TUBE. VG SCH ×2 (20:00→21:00)
--- NOTE | 2018-01-01 20:23 | PDOC ---
Exam Note: Julian Note: Please also refer to the separate dictated note~for this date of service dictated separately.~Patient seen individually. Discussed the patient with Nursing staff reviewed the chart.~Reviewed interim history and current functioning. Reviewed vital signs,~Labs/ Radiology~and current medications noted below. Continue current treatment with the changes noted in the dictated addendum note Assessment: Vital Signs: Vital Signs Date Time Temp Pulse Resp B/P (MAP) Pulse Ox O2 Delivery O2 Flow Rate FiO2 01/01/18 16:12 98.5 73 20 126/75 (92) 94 Room Air I&O Intake and Output 01/01/18 06:59 Intake Total 1560 ml Balance 1560 ml Intake Oral 1560 ml # Voids 1 Labs: Laboratory Tests Test 01/01/18 07:07 [place] Level 0.8 mmol/L (0.6-1.2) [place] Last Dose Date 12/31/17 [place] Last Dose Time 2100 Current Medications: Meds: Current Medications Lactated Ringer's 1,000 ml @ 1,000 mls/hr Q1H IV Last administered on at 23:19; Start 12/25/17 at 23:30; Stop 12/26/17 at 00:29; Status DC Cephalexin HCl (Keflex) 500 mg 1X ONCE PO Last administered on 12/26/17at 05:32 ; Start 12/26/17 at 01:15; Stop 12/26/17 at 01:16; Status DC Levofloxacin (Levaquin) 500 mg 1X ONCE PO Last administered on 12/26/17at 01:45 ; Start 12/26/17 at 01:45; Stop 12/26/17 at 01:46; Status DC Levofloxacin (Levaquin) 500 mg DAILY06 PO Last administered on 12/29/17at 05:32 ; Start 12/27/17 at 06:00; Stop 12/29/17 at 12:04; Status DC Multi-Ingredient Ointment (Analgesic [place]) 1 barbara PRN QID PRN TP MUSCLE PAIN; Start 12/26/17 at 05:15 Al Hydroxide/Mg Hydroxide (Mylanta Plus Xs) 15 ml PRN AFTMEALHC PRN PO DYSPEPSIA; Start 12/26/17 at 05:15 Acetaminophen (Tylenol) 650 mg PRN Q6HRS PRN PO PAIN / TEMP Last administered on 01/01/18 17:56; Start 12/26/17 at 05:15 Atorvastatin Calcium (Lipitor) 20 mg QHS PO Last administered on 01/01/18 19: 57; Start 12/26/17 at 21:00 Estradiol (Estrace) 1 barbara QMTH VG ; Start 12/29/17 at 16:00; Stop 12/29/17 at 16 :06; Status DC Levothyroxine Sodium (Synthroid) 75 mcg DAILY07 PO Last administered on at 04:29; Start 12/26/17 at 07:00 Oxycodone/ Acetaminophen (Percocet 10/325) 1 tab PRN Q6HRS PRN PO PAIN Last administered on 12/27/17 13:18; Start 12/26/17 at 05:15 Sorbitol (Sorbitol Solution) 30 ml PRN DAILY PRN PO CONSTIPATION; Start at 05:15 Amlodipine Besylate (Norvasc) 5 mg DAILY PO Last administered on 01/01/18at 08: 11; Start 12/26/17 at 09:00 Artificial Tears (Artificial Tears) 1 drop TID OU Last administered on 14:19; Start 12/26/17 at 09:00; Stop 12/26/17 at 16:57; Status DC Vitamin D (Vitamin D3) 50,000 unit QSU PO Last administered on 12/28/17at 16:59 ; Start 12/28/17 at 16:00 Magnesium Hydroxide (Milk Of Magnesia) 2,400 mg PRN DAILY PRN PO CONSTIPATION; Start 12/26/17 at 05:15 Polyethylene Glycol (miraLAX) 17 gm DAILY PO Last administered on 01/01/18at 08: 11; Start 12/26/17 at 09:00 Sodium Chloride ([place]) 0.25 inch HS OD Last administered on 01/01/18 20:00; Start 12/26/17 at 21:00 Carbamazepine (TEGretol) 300 mg BID PO Last administered on 01/01/18at 19:57; Start 12/26/17 at 09:00 Benztropine Mesylate (Cogentin) 1 mg BID PO Last administered on 12/30/17at 09: 17; Start 12/26/17 at 09:00; Stop 12/30/17 at 18:50; Status DC Buspirone HCl (Buspar) 5 mg PRN Q8HRS PRN PO PSYCHOSIS Last administered on 08:09; Start 12/26/17 at 05:30 [place] Carbonate 150 mg HS PO Last administered on 12/30/17 20:34; Start 03/05 at 21:00; Stop 12/30/17 at 22:00; Status DC [place] Carbonate 300 mg BID PO Last administered on 12/30/17 20:34; Start 03/05 at 09:00; Stop 12/30/17 at 22:00; Status DC Olanzapine (ZyPREXA) 10 mg DAILY PO Last administered on 01/01/18 08:10; Start 12/26/17 at 09:00 Olanzapine (ZyPREXA) 20 mg HS PO Last administered on 12/29/17 21:34; Start at 21:00; Stop 12/30/17 at 18:50; Status DC Trazodone HCl (Desyrel) 50 mg QHS PO Last administered on 01/01/18 19:58; Start 12/26/17 at 21:00 Cephalexin HCl (Keflex) 250 mg STK-MED ONCE .ROUTE ; Start 12/26/17 at 05:29; Stop 12/26/17 at 05:30; Status DC Lactobacillus Rhamnosus (Culturelle) 1 cap BID PO Last administered on at 19:58; Start 12/26/17 at 09:00 Phenazopyridine HCl (Pyridium) 100 mg TID PO Last administered on 12/28/17at 07: 52; Start 12/26/17 at 14:00; Stop 12/28/17 at 13:00; Status DC Artificial Tears (Refresh Classic) 1 drop TID OU ; Start 12/26/17 at 17:00; Stop 12/26/17 at 17:00; Status DC Artificial Tears (Refresh Classic) 1 drop TID OU Last administered on at 19:57; Start 12/26/17 at 17:00 Risperidone (RisperDAL) 0.5 mg HS PO Last administered on 12/29/17 21:33; Start 12/26/17 at 22:30; Stop 8/14/18 at 18:50; Status DC Trazodone HCl (Desyrel) 50 mg PRN QHS PRN PO INSOMNIA; Start 12/26/17 at 22:30 Estradiol (Estrace) 1 barbara QMTH@2100 VG Last administered on 01/01/18at 20:00; Start 12/29/17 at 21:00 Benztropine Mesylate (Cogentin) 0.5 mg BID PO Last administered on 01/01/18at 19 :57; Start 12/30/17 at 21:00 Olanzapine (ZyPREXA) 10 mg HS PO Last administered on 01/01/18at 19:58; Start at 21:00 Risperidone (RisperDAL) 1 mg HS PO Last administered on 01/01/18 19:58; Start 12/30/17 at 21:00 [place] Carbonate 450 mg HS PO Last administered on 01/01/18at 19:58; Start at 21:00 [place] Carbonate 300 mg DAILY PO Last administered on 01/01/18at 08:11; Start 12/31/17 at 09:00 Active Scripts Active Reported Zyprexa (Olanzapine) 20 Mg Tablet 20 Mg PO HS Zyprexa (Olanzapine) 10 Mg Tablet 10 Mg PO DAILY Trazodone Hcl 50 Mg Tablet 50 Mg PO HS Tegretol (Carbamazepine) 200 Mg Tablet 300 Mg PO BID Sorbitol (Sorbitol Solution) 1 Ml Solution 1 Ml MC Norvasc (Amlodipine Besylate) 5 Mg Tablet 5 Mg PO DAILY [place]-128 (Sodium Chloride) 15 Ml Drops 1 Drop OD HS Miralax (Polyethylene Glycol 3350) 17 Gm Powd.pack 17 Gm PO DAILY Milk Of Magnesia (Magnesium Hydroxide) 2,400 Mg/10 Ml Oral.susp 2,400 Mg PO PRN DAILY PRN [place] Carbonate 300 Mg Tablet 300 Mg PO BID [place] Carbonate 150 Mg Capsule 150 Mg PO HS Lipitor (Atorvastatin Calcium) 20 Mg Tablet 20 Mg PO QHS Levothyroxine Sodium 75 Mcg Tablet 75 Mcg PO DAILYAC Estrace (Estradiol) 42.5 Gm Cream.appl 1 Gm VG HS QMON/THURS Insert at bedtime on Friday and Vitamin D2 (Ergocalciferol (Vitamin D2)) 50,000 Unit Capsule 50,000 Unit PO WEEKLY Endocet 10-325 Mg Tablet (Oxycodone Hcl/Acetaminophen) 1 Each Tablet 1 Tab PO PRN Q6HRS PRN [durezol] Buspirone Hcl 5 Mg Tablet 5 Mg PO PRN Q8HRS PRN Benztropine Mesylate 1 Mg Tablet 1 Mg PO BID Artificial Tears Eye Drops (Dextran 70/Hypromellose) 15 Ml Drops 1 Drop EACHEYE TID Tylenol (Acetaminophen) 325 Mg Tablet 650 Mg PO PRN Q6HRS PRN I have reviewed the current psychotropics carefully including drug interactions. Risk benefit ratio favors no change other than as noted in my dictated progress note. 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
--- NOTE | 2018-01-01 21:00 | PDOC ---
Exam Note: Julian Note: Late entry for DOS December 30, 2017. Please also refer to the separate dictated note~for this date of service dictated separately.~Patient seen individually. Discussed the patient with Nursing staff reviewed the chart.~Reviewed interim history and current functioning. Reviewed vital signs,~Labs/ Radiology~and current medications noted below. Continue current treatment with the changes noted in the dictated addendum note Assessment: Vital Signs: VS - Last 72 Hours, by Label Date Time Temp Pulse Resp B/P (MAP) Pulse Ox O2 Delivery O2 Flow Rate FiO2 01/01/18 16:12 98.5 73 20 126/75 (92) 94 Room Air 01/01/18 08:11 79 133/94 01/01/18 06:12 97.4 79 20 133/94 (107) 94 12/31/17 16:22 98.1 67 18 121/86 (98) 94 12/31/17 09:00 74 165/94 12/31/17 05:56 97.6 74 16 165/94 (117) 100 12/30/17 16:20 98.8 71 18 149/85 (106) 98 Room Air 12/30/17 09:19 65 166/79 12/30/17 06:16 97.6 65 22 166/79 (108) 94 Vital Signs Date Time Temp Pulse Resp B/P (MAP) Pulse Ox O2 Delivery O2 Flow Rate FiO2 01/01/18 16:12 98.5 73 20 126/75 (92) 94 Room Air I&O Intake and Output 01/01/18 06:59 Intake Total 1560 ml Balance 1560 ml Intake Oral 1560 ml # Voids 1 Labs: Laboratory Tests Test 01/01/18 07:07 [place] Level 0.8 mmol/L (0.6-1.2) [place] Last Dose Date 12/31/17 [place] Last Dose Time 2100 Current Medications: Meds: Current Medications Lactated Ringer's 1,000 ml @ 1,000 mls/hr Q1H IV Last administered on at 23:19; Start 12/25/17 at 23:30; Stop 12/26/17 at 00:29; Status DC Cephalexin HCl (Keflex) 500 mg 1X ONCE PO Last administered on 12/26/17at 05:32 ; Start 12/26/17 at 01:15; Stop 12/26/17 at 01:16; Status DC Levofloxacin (Levaquin) 500 mg 1X ONCE PO Last administered on 12/26/17at 01:45 ; Start 12/26/17 at 01:45; Stop 12/26/17 at 01:46; Status DC Levofloxacin (Levaquin) 500 mg DAILY06 PO Last administered on 12/29/17at 05:32 ; Start 12/27/17 at 06:00; Stop 12/29/17 at 12:04; Status DC Multi-Ingredient Ointment (Analgesic [place]) 1 barbara PRN QID PRN TP MUSCLE PAIN; Start 12/26/17 at 05:15 Al Hydroxide/Mg Hydroxide (Mylanta Plus Xs) 15 ml PRN AFTMEALHC PRN PO DYSPEPSIA; Start 12/26/17 at 05:15 Acetaminophen (Tylenol) 650 mg PRN Q6HRS PRN PO PAIN / TEMP Last administered on 01/01/18at 17:56; Start 12/26/17 at 05:15 Atorvastatin Calcium (Lipitor) 20 mg QHS PO Last administered on 01/01/18at 19: 57; Start 12/26/17 at 21:00 Estradiol (Estrace) 1 barbara QMTH VG ; Start 12/29/17 at 16:00; Stop 12/29/17 at 16 :06; Status DC Levothyroxine Sodium (Synthroid) 75 mcg DAILY07 PO Last administered on at 04:29; Start 12/26/17 at 07:00 Oxycodone/ Acetaminophen (Percocet 10/325) 1 tab PRN Q6HRS PRN PO PAIN Last administered on 12/27/17at 13:18; Start 12/26/17 at 05:15 Sorbitol (Sorbitol Solution) 30 ml PRN DAILY PRN PO CONSTIPATION; Start at 05:15 Amlodipine Besylate (Norvasc) 5 mg DAILY PO Last administered on 01/01/18at 08: 11; Start 12/26/17 at 09:00 Artificial Tears (Artificial Tears) 1 drop TID OU Last administered on at 14:19; Start 12/26/17 at 09:00; Stop 12/26/17 at 16:57; Status DC Vitamin D (Vitamin D3) 50,000 unit QSU PO Last administered on 12/28/17 16:59 ; Start 12/28/17 at 16:00 Magnesium Hydroxide (Milk Of Magnesia) 2,400 mg PRN DAILY PRN PO CONSTIPATION; Start 12/26/17 at 05:15 Polyethylene Glycol (miraLAX) 17 gm DAILY PO Last administered on 01/01/18at 08: 11; Start 12/26/17 at 09:00 Sodium Chloride ([place]) 0.25 inch HS OD Last administered on 01/01/18 20:00; Start 12/26/17 at 21:00 Carbamazepine (TEGretol) 300 mg BID PO Last administered on 01/01/18 19:57; Start 12/26/17 at 09:00 Benztropine Mesylate (Cogentin) 1 mg BID PO Last administered on 12/30/17 09: 17; Start 12/26/17 at 09:00; Stop 12/30/17 at 18:50; Status DC Buspirone HCl (Buspar) 5 mg PRN Q8HRS PRN PO PSYCHOSIS Last administered on 03/05at 08:09; Start 12/26/17 at 05:30 [place] Carbonate 150 mg HS PO Last administered on 12/30/17at 20:34; Start 03/05 at 21:00; Stop 12/30/17 at 22:00; Status DC [place] Carbonate 300 mg BID PO Last administered on 12/30/17at 20:34; Start 03/05 at 09:00; Stop 12/30/17 at 22:00; Status DC Olanzapine (ZyPREXA) 10 mg DAILY PO Last administered on 01/01/18at 08:10; Start 12/26/17 at 09:00 Olanzapine (ZyPREXA) 20 mg HS PO Last administered on 12/29/17at 21:34; Start at 21:00; Stop 12/30/17 at 18:50; Status DC Trazodone HCl (Desyrel) 50 mg QHS PO Last administered on 01/01/18at 19:58; Start 12/26/17 at 21:00 Cephalexin HCl (Keflex) 250 mg STK-MED ONCE .ROUTE ; Start 12/26/17 at 05:29; Stop 12/26/17 at 05:30; Status DC Lactobacillus Rhamnosus (Culturelle) 1 cap BID PO Last administered on 19:58; Start 12/26/17 at 09:00 Phenazopyridine HCl (Pyridium) 100 mg TID PO Last administered on 12/28/17 07: 52; Start 12/26/17 at 14:00; Stop 12/28/17 at 13:00; Status DC Artificial Tears (Refresh Classic) 1 drop TID OU ; Start 12/26/17 at 17:00; Stop 12/26/17 at 17:00; Status DC Artificial Tears (Refresh Classic) 1 drop TID OU Last administered on 19:57; Start 12/26/17 at 17:00 Risperidone (RisperDAL) 0.5 mg HS PO Last administered on 12/29/17 21:33; Start 12/26/17 at 22:30; Stop 12/30/17 at 18:50; Status DC Trazodone HCl (Desyrel) 50 mg PRN QHS PRN PO INSOMNIA; Start 12/26/17 at 22:30 Estradiol (Estrace) 1 barbara QMTH@2100 VG Last administered on 01/01/18at 20:00; Start 12/29/17 at 21:00 Benztropine Mesylate (Cogentin) 0.5 mg BID PO Last administered on 01/01/18 19 :57; Start 12/30/17 at 21:00 Olanzapine (ZyPREXA) 10 mg HS PO Last administered on 01/01/18 19:58; Start at 21:00 Risperidone (RisperDAL) 1 mg HS PO Last administered on 01/01/18 19:58; Start 12/30/17 at 21:00 [place] Carbonate 450 mg HS PO Last administered on 01/01/18 19:58; Start at 21:00 [place] Carbonate 300 mg DAILY PO Last administered on 01/01/18at 08:11; Start 12/31/17 at 09:00 Active Scripts Active Reported Zyprexa (Olanzapine) 20 Mg Tablet 20 Mg PO HS Zyprexa (Olanzapine) 10 Mg Tablet 10 Mg PO DAILY Trazodone Hcl 50 Mg Tablet 50 Mg PO HS Tegretol (Carbamazepine) 200 Mg Tablet 300 Mg PO BID Sorbitol (Sorbitol Solution) 1 Ml Solution 1 Ml MC Norvasc (Amlodipine Besylate) 5 Mg Tablet 5 Mg PO DAILY [place]-128 (Sodium Chloride) 15 Ml Drops 1 Drop OD HS Miralax (Polyethylene Glycol 3350) 17 Gm Powd.pack 17 Gm PO DAILY Milk Of Magnesia (Magnesium Hydroxide) 2,400 Mg/10 Ml Oral.susp 2,400 Mg PO PRN DAILY PRN [place] Carbonate 300 Mg Tablet 300 Mg PO BID [place] Carbonate 150 Mg Capsule 150 Mg PO HS Lipitor (Atorvastatin Calcium) 20 Mg Tablet 20 Mg PO QHS Levothyroxine Sodium 75 Mcg Tablet 75 Mcg PO DAILYAC Estrace (Estradiol) 42.5 Gm Cream.appl 1 Gm VG HS QMON/ Insert at bedtime on Friday and Vitamin D2 (Ergocalciferol (Vitamin D2)) 50,000 Unit Capsule 50,000 Unit PO WEEKLY Endocet 10-325 Mg Tablet (Oxycodone Hcl/Acetaminophen) 1 Each Tablet 1 Tab PO PRN Q6HRS PRN [durezol] Buspirone Hcl 5 Mg Tablet 5 Mg PO PRN Q8HRS PRN Benztropine Mesylate 1 Mg Tablet 1 Mg PO BID Artificial Tears Eye Drops (Dextran 70/Hypromellose) 15 Ml Drops 1 Drop EACHEYE TID Tylenol (Acetaminophen) 325 Mg Tablet 650 Mg PO PRN Q6HRS PRN I have reviewed the current psychotropics carefully including drug interactions. Risk benefit ratio favors no change other than as noted in my dictated progress note. 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
--- NOTE | 2018-01-02 00:24 | PN ---
DATE: 12/31/2017 PSYCHIATRIC PROGRESS NOTE This is a late entry of 12/31/2017, covers elements not covered in my initial note. SUBJECTIVE: I met with the patient in the evening. The patient slept 7-1/4 hours previous evening. She is quite hateful in the morning, using the B word towards the nursing staff. Later in the afternoon, she was more pleasant. We will repeat the lithium level in the morning. REVIEW OF SYSTEMS: No CV, , pulmonary, eye, ENT system symptoms on review. Reliability varies. MENTAL STATUS EXAM: Oriented to herself and situation. Speech coherent, rapid at times. Abstraction fair, computation impaired, language function intact, attention span short. Mood and affect remain somewhat grandiose. LABORATORY DATA: Reviewed. IMPRESSION: Bipolar 1 disorder, manic with psychotic features, in partial remission. Rest unchanged. PLAN: Check lithium level in the morning. Continue rest unchanged per initial note. MAN Rox WATT MD DR: SANCHEZ/fredrick JOB#: [id number] / [id number]
--- NOTE | 2018-01-02 01:26 | PDOC ---
Exam Note: Julian Note: Please also refer to the separate dictated note~for this date of service dictated separately.~Patient seen individually. Discussed the patient with Nursing staff reviewed the chart.~Reviewed interim history and current functioning. Reviewed vital signs,~Labs/ Radiology~and current medications noted below. Continue current treatment with the changes noted in the dictated addendum note Assessment: Vital Signs: Vital Signs Date Time Temp Pulse Resp B/P (MAP) Pulse Ox O2 Delivery O2 Flow Rate FiO2 01/01/18 16:12 98.5 73 20 126/75 (92) 94 Room Air I&O Intake and Output 01/02/18 07:00 Intake Total 1800 ml Balance 1800 ml Intake Oral 1800 ml # Voids 1 Labs: Laboratory Tests Test 01/01/18 07:07 [place] Level 0.8 mmol/L (0.6-1.2) [place] Last Dose Date 12/31/17 [place] Last Dose Time 2100 Current Medications: Meds: Current Medications Lactated Ringer's 1,000 ml @ 1,000 mls/hr Q1H IV Last administered on at 23:19; Start 12/25/17 at 23:30; Stop 12/26/17 at 00:29; Status DC Cephalexin HCl (Keflex) 500 mg 1X ONCE PO Last administered on 12/26/17at 05:32 ; Start 12/26/17 at 01:15; Stop 12/26/17 at 01:16; Status DC Levofloxacin (Levaquin) 500 mg 1X ONCE PO Last administered on 12/26/17at 01:45 ; Start 12/26/17 at 01:45; Stop 12/26/17 at 01:46; Status DC Levofloxacin (Levaquin) 500 mg DAILY06 PO Last administered on 12/29/17at 05:32 ; Start 12/27/17 at 06:00; Stop 12/29/17 at 12:04; Status DC Multi-Ingredient Ointment (Analgesic [place]) 1 barbara PRN QID PRN TP MUSCLE PAIN; Start 12/26/17 at 05:15 Al Hydroxide/Mg Hydroxide (Mylanta Plus Xs) 15 ml PRN AFTMEALHC PRN PO DYSPEPSIA; Start 12/26/17 at 05:15 Acetaminophen (Tylenol) 650 mg PRN Q6HRS PRN PO PAIN / TEMP Last administered on 01/01/18 17:56; Start 12/26/17 at 05:15 Atorvastatin Calcium (Lipitor) 20 mg QHS PO Last administered on 01/01/18at 19: 57; Start 12/26/17 at 21:00 Estradiol (Estrace) 1 barbara QMTH VG ; Start 12/29/17 at 16:00; Stop 12/29/17 at 16 :06; Status DC Levothyroxine Sodium (Synthroid) 75 mcg DAILY07 PO Last administered on at 04:29; Start 12/26/17 at 07:00 Oxycodone/ Acetaminophen (Percocet 10/325) 1 tab PRN Q6HRS PRN PO PAIN Last administered on 12/27/17 13:18; Start 12/26/17 at 05:15 Sorbitol (Sorbitol Solution) 30 ml PRN DAILY PRN PO CONSTIPATION; Start at 05:15 Amlodipine Besylate (Norvasc) 5 mg DAILY PO Last administered on 01/01/18at 08: 11; Start 12/26/17 at 09:00 Artificial Tears (Artificial Tears) 1 drop TID OU Last administered on 14:19; Start 12/26/17 at 09:00; Stop 12/26/17 at 16:57; Status DC Vitamin D (Vitamin D3) 50,000 unit QSU PO Last administered on 12/28/17at 16:59 ; Start 12/28/17 at 16:00 Magnesium Hydroxide (Milk Of Magnesia) 2,400 mg PRN DAILY PRN PO CONSTIPATION; Start 12/26/17 at 05:15 Polyethylene Glycol (miraLAX) 17 gm DAILY PO Last administered on 01/01/18at 08: 11; Start 12/26/17 at 09:00 Sodium Chloride (Elmer) 0.25 inch HS OD Last administered on 01/01/18at 20:00; Start 12/26/17 at 21:00 Carbamazepine (TEGretol) 300 mg BID PO Last administered on 01/01/18at 19:57; Start 12/26/17 at 09:00 Benztropine Mesylate (Cogentin) 1 mg BID PO Last administered on 12/30/17at 09: 17; Start 12/26/17 at 09:00; Stop 12/30/17 at 18:50; Status DC Buspirone HCl (Buspar) 5 mg PRN Q8HRS PRN PO PSYCHOSIS Last administered on 08:09; Start 12/26/17 at 05:30 [place] Carbonate 150 mg HS PO Last administered on 12/30/17 20:34; Start 03/05 at 21:00; Stop 12/30/17 at 22:00; Status DC [place] Carbonate 300 mg BID PO Last administered on 12/30/17 20:34; Start 03/05 at 09:00; Stop 12/30/17 at 22:00; Status DC Olanzapine (ZyPREXA) 10 mg DAILY PO Last administered on 01/01/18 08:10; Start 12/26/17 at 09:00 Olanzapine (ZyPREXA) 20 mg HS PO Last administered on 12/29/17 21:34; Start at 21:00; Stop 12/30/17 at 18:50; Status DC Trazodone HCl (Desyrel) 50 mg QHS PO Last administered on 01/01/18 19:58; Start 12/26/17 at 21:00 Cephalexin HCl (Keflex) 250 mg STK-MED ONCE .ROUTE ; Start 12/26/17 at 05:29; Stop 12/26/17 at 05:30; Status DC Lactobacillus Rhamnosus (Culturelle) 1 cap BID PO Last administered on 19:58; Start 12/26/17 at 09:00 Phenazopyridine HCl (Pyridium) 100 mg TID PO Last administered on 12/28/17at 07: 52; Start 12/26/17 at 14:00; Stop 12/28/17 at 13:00; Status DC Artificial Tears (Refresh Classic) 1 drop TID OU ; Start 12/26/17 at 17:00; Stop 12/26/17 at 17:00; Status DC Artificial Tears (Refresh Classic) 1 drop TID OU Last administered on 19:57; Start 12/26/17 at 17:00 Risperidone (RisperDAL) 0.5 mg HS PO Last administered on 12/29/17 21:33; Start 12/26/17 at 22:30; Stop 12/30/17 at 18:50; Status DC Trazodone HCl (Desyrel) 50 mg PRN QHS PRN PO INSOMNIA; Start 12/26/17 at 22:30 Estradiol (Estrace) 1 barbara QMTH@2100 VG Last administered on 12/29/17at 21:36; Start 12/29/17 at 21:00 Benztropine Mesylate (Cogentin) 0.5 mg BID PO Last administered on 01/01/18at 19 :57; Start 12/30/17 at 21:00 Olanzapine (ZyPREXA) 10 mg HS PO Last administered on 01/01/18at 19:58; Start at 21:00 Risperidone (RisperDAL) 1 mg HS PO Last administered on 01/01/18 19:58; Start 12/30/17 at 21:00 [place] Carbonate 450 mg HS PO Last administered on 01/01/18at 19:58; Start at 21:00 [place] Carbonate 300 mg DAILY PO Last administered on 01/01/18at 08:11; Start 12/31/17 at 09:00 Active Scripts Active Reported Zyprexa (Olanzapine) 20 Mg Tablet 20 Mg PO HS Zyprexa (Olanzapine) 10 Mg Tablet 10 Mg PO DAILY Trazodone Hcl 50 Mg Tablet 50 Mg PO HS Tegretol (Carbamazepine) 200 Mg Tablet 300 Mg PO BID Sorbitol (Sorbitol Solution) 1 Ml Solution 1 Ml MC Norvasc (Amlodipine Besylate) 5 Mg Tablet 5 Mg PO DAILY [place]-128 (Sodium Chloride) 15 Ml Drops 1 Drop OD HS Miralax (Polyethylene Glycol 3350) 17 Gm Powd.pack 17 Gm PO DAILY Milk Of Magnesia (Magnesium Hydroxide) 2,400 Mg/10 Ml Oral.susp 2,400 Mg PO PRN DAILY PRN [place] Carbonate 300 Mg Tablet 300 Mg PO BID [place] Carbonate 150 Mg Capsule 150 Mg PO HS Lipitor (Atorvastatin Calcium) 20 Mg Tablet 20 Mg PO QHS Levothyroxine Sodium 75 Mcg Tablet 75 Mcg PO DAILYAC Estrace (Estradiol) 42.5 Gm Cream.appl 1 Gm VG HS QMON/THURS Insert at bedtime on Friday and Vitamin D2 (Ergocalciferol (Vitamin D2)) 50,000 Unit Capsule 50,000 Unit PO WEEKLY Endocet 10-325 Mg Tablet (Oxycodone Hcl/Acetaminophen) 1 Each Tablet 1 Tab PO PRN Q6HRS PRN [durezol] Buspirone Hcl 5 Mg Tablet 5 Mg PO PRN Q8HRS PRN Benztropine Mesylate 1 Mg Tablet 1 Mg PO BID Artificial Tears Eye Drops (Dextran 70/Hypromellose) 15 Ml Drops 1 Drop EACHEYE TID Tylenol (Acetaminophen) 325 Mg Tablet 650 Mg PO PRN Q6HRS PRN I have reviewed the current psychotropics carefully including drug interactions. Risk benefit ratio favors no change other than as noted in my dictated progress note. 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
[2018-01-02] MEDS: LEVOTHYROXINE 75 MCG TABLET PO SCH (05:27)
[2018-01-02] MEDS: ACETAMINOPHEN 325 MG TABLET PO PRN (05:27)
[2018-01-02 06:07] VITALS: BP 136/73
[2018-01-02] MEDS: POLYETHYLENE GLYCOL 3350 17 GM PACKET. PO SCH (07:38)
[2018-01-02] MEDS: BENZTROPINE MESYLATE 0.5 MG TABLET PO SCH ×2 (07:38→20:24)
[2018-01-02] MEDS: carBAMazepine 200 MG TABLET PO SCH ×2 (07:39→20:24)
[2018-01-02] MEDS: LITHIUM CARBONATE 300 MG TABLET PO SCH ×2 (07:39→20:23)
[2018-01-02] MEDS: LACTOBACILLUS RHAMNOSUS GG 1 CAPSULE. PO SCH ×2 (07:39→20:23)
[2018-01-02] MEDS: amLODIPine BESYLATE 5 MG TABLET PO SCH (07:39)
[2018-01-02] MEDS: OLANZapine 10 MG TABLET PO SCH ×2 (07:39→20:23)
[2018-01-02] MEDS: POLYVINYL ALCOHOL/POVIDONE/PF OPHTH SOLUTION DROPERETTE. OU SCH ×3 (07:39→20:22)
[2018-01-02 09:19] LABS: BASO % 1 % (0-3); EOS # 0.2 x10^3/uL (0.0-0.7); EOS % 4 % (0-3); HEMATOCRIT 37.1 % (36.0-47.0); HEMOGLOBIN 12.2 g/dL (12.0-15.5); LYMPH # 1.1 x10^3/uL (1.0-4.8); LYMPH % 25 % (24-48); MEAN CORPUSCULAR HEMOGLOBIN 30 pg (25-35); MEAN CORPUSCULAR HGB CONC 33 g/dL (31-37); MEAN CORPUSCULAR VOLUME 92 fL (79-100); MONO # 0.5 x10^3/uL (0.0-1.1); MONO % 12 % (0-9); NEUT # 2.6 x10^3uL (1.8-7.7); NEUT % 58 % (31-73); PLATELET COUNT 208 x10^3/uL (140-400); RED BLOOD COUNT 4.03 x10^6/uL (3.50-5.40); RED CELL DISTRIBUTION WIDTH 12.7 % (11.5-14.5); WHITE BLOOD COUNT 4.5 x10^3/uL (4.0-11.0)
[2018-01-02 09:28] LABS: ALBUMIN 3.5 g/dL (3.4-5.0); ALBUMIN/GLOBULIN RATIO 0.9 (1.0-1.7); CALCIUM 10.2 mg/dL (8.5-10.1); CREATININE 0.9 mg/dL (0.6-1.0); GFR 62.3; POTASSIUM 4.4 mmol/L (3.5-5.1); TOTAL BILIRUBIN 0.2 mg/dL (0.2-1.0); TOTAL PROTEIN 7.2 g/dL (6.4-8.2)
--- NOTE | 2018-01-02 13:07 | PN ---
DATE: 01/01/2018 PSYCHIATRIC PROGRESS NOTE This is a late entry, 01/01, covers elements not covered in my initial note. SUBJECTIVE: I met with the patient in the evening, staffed at treatment team meeting with the entire team in the morning, reviewed the patient's history, diagnosis, progress, current psychotropics. She is sleeping better, less hyperverbal. [place] level 1.0, therapeutic is being repeated. Tegretol level 10.2. REVIEW OF SYSTEMS: No CV, , pulmonary, eye, ENT system symptoms on review. MENTAL STATUS EXAM: Reasonably oriented. Speech is still somewhat pressured. Abstraction fair, computation impaired, language function intact, attention span short. Mood and affect remain somewhat hypomanic at times, but improved. LABORATORY DATA: Reviewed. IMPRESSION: Bipolar 1 disorder, mixed versus manic with psychotic features, in partial remission. Rest unchanged. PLAN: Continue current psychotropics, repeat lithium level. Risperdal is 1 mg at bedtime. We will try and reduce the Zyprexa schedule further in a day or so. MAN Rox WATT MD DR: SANCHEZ/fredrick JOB#: [id number] / [id number]
[2018-01-02 16:02] VITALS: BP 151/65
[2018-01-02] MEDS: SODIUM CHLORIDE 5% OPHTH OINTMENT 3.5GM TUBE. OD SCH (20:22)
[2018-01-02] MEDS: traZODone 50 MG TABLET. PO SCH (20:23)
[2018-01-02] MEDS: ATORVASTATIN CALCIUM 20 MG TABLET PO SCH (20:23)
[2018-01-02] MEDS: risperiDONE 1 MG TABLET. PO SCH (20:24)
--- NOTE | 2018-01-02 20:29 | PDOC ---
Exam Note: Julian Note: Please also refer to the separate dictated note~for this date of service dictated separately.~Patient seen individually. Discussed the patient with Nursing staff reviewed the chart.~Reviewed interim history and current functioning. Reviewed vital signs,~Labs/ Radiology~and current medications noted below. Continue current treatment with the changes noted in the dictated addendum note Assessment: Vital Signs: Vital Signs Date Time Temp Pulse Resp B/P (MAP) Pulse Ox O2 Delivery O2 Flow Rate FiO2 01/02/18 16:02 98.8 59 20 151/65 (93) 94 Room Air I&O Intake and Output 01/02/18 06:59 Intake Total 1800 ml Balance 1800 ml Intake Oral 1800 ml # Voids 1 Current Medications: Meds: Current Medications Lactated Ringer's 1,000 ml @ 1,000 mls/hr Q1H IV Last administered on at 23:19; Start 12/25/17 at 23:30; Stop 12/26/17 at 00:29; Status DC Cephalexin HCl (Keflex) 500 mg 1X ONCE PO Last administered on 12/26/17at 05:32 ; Start 12/26/17 at 01:15; Stop 12/26/17 at 01:16; Status DC Levofloxacin (Levaquin) 500 mg 1X ONCE PO Last administered on 12/26/17at 01:45 ; Start 12/26/17 at 01:45; Stop 12/26/17 at 01:46; Status DC Levofloxacin (Levaquin) 500 mg DAILY06 PO Last administered on 12/29/17at 05:32 ; Start 12/27/17 at 06:00; Stop 12/29/17 at 12:04; Status DC Multi-Ingredient Ointment (Analgesic [place]) 1 barbara PRN QID PRN TP MUSCLE PAIN; Start 12/26/17 at 05:15 Al Hydroxide/Mg Hydroxide (Mylanta Plus Xs) 15 ml PRN AFTMEALHC PRN PO DYSPEPSIA; Start 12/26/17 at 05:15 Acetaminophen (Tylenol) 650 mg PRN Q6HRS PRN PO PAIN / TEMP Last administered on 01/02/18at 05:27; Start 12/26/17 at 05:15 Atorvastatin Calcium (Lipitor) 20 mg QHS PO Last administered on 01/02/18at 20: 23; Start 12/26/17 at 21:00 Estradiol (Estrace) 1 barbara QMTH VG ; Start 12/29/17 at 16:00; Stop 12/29/17 at 16 :06; Status DC Levothyroxine Sodium (Synthroid) 75 mcg DAILY07 PO Last administered on at 05:27; Start 12/26/17 at 07:00 Oxycodone/ Acetaminophen (Percocet 10/325) 1 tab PRN Q6HRS PRN PO PAIN Last administered on 12/27/17at 13:18; Start 12/26/17 at 05:15 Sorbitol (Sorbitol Solution) 30 ml PRN DAILY PRN PO CONSTIPATION; Start at 05:15 Amlodipine Besylate (Norvasc) 5 mg DAILY PO Last administered on 01/02/18at 07: 39; Start 12/26/17 at 09:00 Artificial Tears (Artificial Tears) 1 drop TID OU Last administered on at 14:19; Start 12/26/17 at 09:00; Stop 12/26/17 at 16:57; Status DC Vitamin D (Vitamin D3) 50,000 unit QSU PO Last administered on 12/28/17at 16:59 ; Start 12/28/17 at 16:00 Magnesium Hydroxide (Milk Of Magnesia) 2,400 mg PRN DAILY PRN PO CONSTIPATION; Start 12/26/17 at 05:15 Polyethylene Glycol (miraLAX) 17 gm DAILY PO Last administered on 01/02/18at 07: 38; Start 12/26/17 at 09:00 Sodium Chloride ([place]mer) 0.25 inch HS OD Last administered on 01/02/18at 20:22; Start 12/26/17 at 21:00 Carbamazepine (TEGretol) 300 mg BID PO Last administered on 01/02/18at 20:24; Start 12/26/17 at 09:00 Benztropine Mesylate (Cogentin) 1 mg BID PO Last administered on 12/30/17at 09: 17; Start 12/26/17 at 09:00; Stop 12/30/17 at 18:50; Status DC Buspirone HCl (Buspar) 5 mg PRN Q8HRS PRN PO PSYCHOSIS Last administered on 03/05at 08:09; Start 12/26/17 at 05:30 [place] Carbonate 150 mg HS PO Last administered on 12/30/17at 20:34; Start 03/05 at 21:00; Stop 12/30/17 at 22:00; Status DC [place] Carbonate 300 mg BID PO Last administered on 12/30/17at 20:34; Start 03/05 at 09:00; Stop 12/30/17 at 22:00; Status DC Olanzapine (ZyPREXA) 10 mg DAILY PO Last administered on 01/02/18at 07:39; Start 12/26/17 at 09:00; Stop 01/02/18 at 17:12; Status DC Olanzapine (ZyPREXA) 20 mg HS PO Last administered on 12/29/17at 21:34; Start at 21:00; Stop 12/30/17 at 18:50; Status DC Trazodone HCl (Desyrel) 50 mg QHS PO Last administered on 01/02/18at 20:23; Start 12/26/17 at 21:00 Cephalexin HCl (Keflex) 250 mg STK-MED ONCE .ROUTE ; Start 12/26/17 at 05:29; Stop 12/26/17 at 05:30; Status DC Lactobacillus Rhamnosus (Culturelle) 1 cap BID PO Last administered on at 20:23; Start 12/26/17 at 09:00 Phenazopyridine HCl (Pyridium) 100 mg TID PO Last administered on 12/28/17at 07: 52; Start 12/26/17 at 14:00; Stop 12/28/17 at 13:00; Status DC Artificial Tears (Refresh Classic) 1 drop TID OU ; Start 12/26/17 at 17:00; Stop 12/26/17 at 17:00; Status DC Artificial Tears (Refresh Classic) 1 drop TID OU Last administered on at 20:22; Start 12/26/17 at 17:00 Risperidone (RisperDAL) 0.5 mg HS PO Last administered on 12/29/17at 21:33; Start 12/26/17 at 22:30; Stop 12/30/17 at 18:50; Status DC Trazodone HCl (Desyrel) 50 mg PRN QHS PRN PO INSOMNIA; Start 12/26/17 at 22:30 Estradiol (Estrace) 1 barbara QMTH@2100 VG Last administered on 12/29/17at 21:36; Start 12/29/17 at 21:00 Benztropine Mesylate (Cogentin) 0.5 mg BID PO Last administered on 01/02/18at 20 :24; Start 12/30/17 at 21:00 Olanzapine (ZyPREXA) 10 mg HS PO Last administered on 01/02/18at 20:23; Start at 21:00 Risperidone (RisperDAL) 1 mg HS PO Last administered on 01/02/18at 20:24; Start 12/30/17 at 21:00 [place] Carbonate 450 mg HS PO Last administered on 01/02/18at 20:23; Start at 21:00 [place] Carbonate 300 mg DAILY PO Last administered on 01/02/18at 07:39; Start 12/31/17 at 09:00 Olanzapine (ZyPREXA) 5 mg DAILY PO ; Start 01/03/18 at 09:00 Active Scripts Active Reported Zyprexa (Olanzapine) 20 Mg Tablet 20 Mg PO HS Zyprexa (Olanzapine) 10 Mg Tablet 10 Mg PO DAILY Trazodone Hcl 50 Mg Tablet 50 Mg PO HS Tegretol (Carbamazepine) 200 Mg Tablet 300 Mg PO BID Sorbitol (Sorbitol Solution) 1 Ml Solution 1 Ml MC Norvasc (Amlodipine Besylate) 5 Mg Tablet 5 Mg PO DAILY [place]-128 (Sodium Chloride) 15 Ml Drops 1 Drop OD HS Miralax (Polyethylene Glycol 3350) 17 Gm Powd.pack 17 Gm PO DAILY Milk Of Magnesia (Magnesium Hydroxide) 2,400 Mg/10 Ml Oral.susp 2,400 Mg PO PRN DAILY PRN [place] Carbonate 300 Mg Tablet 300 Mg PO BID [place] Carbonate 150 Mg Capsule 150 Mg PO HS Lipitor (Atorvastatin Calcium) 20 Mg Tablet 20 Mg PO QHS Levothyroxine Sodium 75 Mcg Tablet 75 Mcg PO DAILYAC Estrace (Estradiol) 42.5 Gm Cream.appl 1 Gm VG HS QMON/THURS Insert at bedtime on Friday and Vitamin D2 (Ergocalciferol (Vitamin D2)) 50,000 Unit Capsule 50,000 Unit PO WEEKLY Endocet 10-325 Mg Tablet (Oxycodone Hcl/Acetaminophen) 1 Each Tablet 1 Tab PO PRN Q6HRS PRN [durezol] Buspirone Hcl 5 Mg Tablet 5 Mg PO PRN Q8HRS PRN Benztropine Mesylate 1 Mg Tablet 1 Mg PO BID Artificial Tears Eye Drops (Dextran 70/Hypromellose) 15 Ml Drops 1 Drop EACHEYE TID Tylenol (Acetaminophen) 325 Mg Tablet 650 Mg PO PRN Q6HRS PRN I have reviewed the current psychotropics carefully including drug interactions. Risk benefit ratio favors no change other than as noted in my dictated progress note. 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
[2018-01-03 06:03] VITALS: BP 155/85
[2018-01-03] MEDS: LEVOTHYROXINE 75 MCG TABLET PO SCH (06:23)
[2018-01-03] MEDS: ACETAMINOPHEN 325 MG TABLET PO PRN (06:29)
[2018-01-03] MEDS: OLANZapine 10 MG TABLET PO SCH (08:13)
[2018-01-03] MEDS: BENZTROPINE MESYLATE 0.5 MG TABLET PO SCH ×2 (08:13→20:07)
[2018-01-03] MEDS: LITHIUM CARBONATE 300 MG TABLET PO SCH ×2 (08:13→20:09)
[2018-01-03] MEDS: amLODIPine BESYLATE 5 MG TABLET PO SCH (08:14)
[2018-01-03] MEDS: POLYETHYLENE GLYCOL 3350 17 GM PACKET. PO SCH (08:14)
[2018-01-03] MEDS: POLYVINYL ALCOHOL/POVIDONE/PF OPHTH SOLUTION DROPERETTE. OU SCH ×3 (08:14→20:09)
[2018-01-03] MEDS: LACTOBACILLUS RHAMNOSUS GG 1 CAPSULE. PO SCH ×2 (08:14→20:09)
[2018-01-03] MEDS: OLANZapine 5 MG TABLET PO SCH (08:15)
[2018-01-03] MEDS: carBAMazepine 200 MG TABLET PO SCH ×2 (08:17→20:09)
[2018-01-03 16:46] VITALS: BP 141/80
[2018-01-03] MEDS: traZODone 50 MG TABLET. PO SCH (20:07)
[2018-01-03] MEDS: ATORVASTATIN CALCIUM 20 MG TABLET PO SCH (20:09)
[2018-01-03] MEDS: risperiDONE 1 MG TABLET. PO SCH (20:09)
[2018-01-03] MEDS: SODIUM CHLORIDE 5% OPHTH OINTMENT 3.5GM TUBE. OD SCH (20:10)
--- NOTE | 2018-01-03 22:21 | PDOC ---
Exam Note: Julian Note: Please also refer to the separate dictated note~for this date of service dictated separately.~Patient seen individually. Discussed the patient with Nursing staff reviewed the chart.~Reviewed interim history and current functioning. Reviewed vital signs,~Labs/ Radiology~and current medications noted below. Continue current treatment with the changes noted in the dictated addendum note Assessment: Vital Signs: Vital Signs Date Time Temp Pulse Resp B/P (MAP) Pulse Ox O2 Delivery O2 Flow Rate FiO2 01/03/18 16:46 98.4 66 20 141/80 (100) 98 01/02/18 16:02 Room Air I&O Intake and Output 01/03/18 07:01 Intake Total 1620 ml Balance 1620 ml Intake Oral 1620 ml Current Medications: Meds: Current Medications Lactated Ringer's 1,000 ml @ 1,000 mls/hr Q1H IV Last administered on at 23:19; Start 12/25/17 at 23:30; Stop 12/26/17 at 00:29; Status DC Cephalexin HCl (Keflex) 500 mg 1X ONCE PO Last administered on 12/26/17at 05:32 ; Start 12/26/17 at 01:15; Stop 12/26/17 at 01:16; Status DC Levofloxacin (Levaquin) 500 mg 1X ONCE PO Last administered on 12/26/17at 01:45 ; Start 12/26/17 at 01:45; Stop 12/26/17 at 01:46; Status DC Levofloxacin (Levaquin) 500 mg DAILY06 PO Last administered on 12/29/17at 05:32 ; Start 12/27/17 at 06:00; Stop 12/29/17 at 12:04; Status DC Multi-Ingredient Ointment (Analgesic [place]) 1 barbara PRN QID PRN TP MUSCLE PAIN; Start 12/26/17 at 05:15 Al Hydroxide/Mg Hydroxide (Mylanta Plus Xs) 15 ml PRN AFTMEALHC PRN PO DYSPEPSIA; Start 12/26/17 at 05:15 Acetaminophen (Tylenol) 650 mg PRN Q6HRS PRN PO PAIN / TEMP Last administered on 01/03/18at 06:29; Start 12/26/17 at 05:15 Atorvastatin Calcium (Lipitor) 20 mg QHS PO Last administered on 8/18/18at 20: 09; Start 12/26/17 at 21:00 Estradiol (Estrace) 1 barbara QMTH VG ; Start 12/29/17 at 16:00; Stop 12/29/17 at 16 :06; Status DC Levothyroxine Sodium (Synthroid) 75 mcg DAILY07 PO Last administered on 06:23; Start 12/26/17 at 07:00 Oxycodone/ Acetaminophen (Percocet 10/325) 1 tab PRN Q6HRS PRN PO PAIN Last administered on 12/27/17at 13:18; Start 12/26/17 at 05:15 Sorbitol (Sorbitol Solution) 30 ml PRN DAILY PRN PO CONSTIPATION; Start at 05:15 Amlodipine Besylate (Norvasc) 5 mg DAILY PO Last administered on 01/03/18at 08: 14; Start 12/26/17 at 09:00 Artificial Tears (Artificial Tears) 1 drop TID OU Last administered on at 14:19; Start 12/26/17 at 09:00; Stop 12/26/17 at 16:57; Status DC Vitamin D (Vitamin D3) 50,000 unit QSU PO Last administered on 12/28/17at 16:59 ; Start 12/28/17 at 16:00 Magnesium Hydroxide (Milk Of Magnesia) 2,400 mg PRN DAILY PRN PO CONSTIPATION; Start 12/26/17 at 05:15 Polyethylene Glycol (miraLAX) 17 gm DAILY PO Last administered on 01/03/18at 08: 14; Start 12/26/17 at 09:00 Sodium Chloride ([place]) 0.25 inch HS OD Last administered on 01/03/18at 20:10; Start 12/26/17 at 21:00 Carbamazepine (TEGretol) 300 mg BID PO Last administered on 01/03/18 20:09; Start 12/26/17 at 09:00 Benztropine Mesylate (Cogentin) 1 mg BID PO Last administered on 12/30/17at 09: 17; Start 12/26/17 at 09:00; Stop 12/30/17 at 18:50; Status DC Buspirone HCl (Buspar) 5 mg PRN Q8HRS PRN PO PSYCHOSIS Last administered on 03/05at 08:09; Start 12/26/17 at 05:30 [place] Carbonate 150 mg HS PO Last administered on 12/30/17at 20:34; Start 03/05 at 21:00; Stop 12/30/17 at 22:00; Status DC [place] Carbonate 300 mg BID PO Last administered on 12/30/17at 20:34; Start 03/05 at 09:00; Stop 12/30/17 at 22:00; Status DC Olanzapine (ZyPREXA) 10 mg DAILY PO Last administered on 01/02/18at 07:39; Start 12/26/17 at 09:00; Stop 01/02/18 at 17:12; Status DC Olanzapine (ZyPREXA) 20 mg HS PO Last administered on 12/29/17 21:34; Start at 21:00; Stop 12/30/17 at 18:50; Status DC Trazodone HCl (Desyrel) 50 mg QHS PO Last administered on 01/03/18at 20:07; Start 12/26/17 at 21:00 Cephalexin HCl (Keflex) 250 mg STK-MED ONCE .ROUTE ; Start 12/26/17 at 05:29; Stop 12/26/17 at 05:30; Status DC Lactobacillus Rhamnosus (Culturelle) 1 cap BID PO Last administered on at 20:09; Start 12/26/17 at 09:00 Phenazopyridine HCl (Pyridium) 100 mg TID PO Last administered on 12/28/17at 07: 52; Start 12/26/17 at 14:00; Stop 12/28/17 at 13:00; Status DC Artificial Tears (Refresh Classic) 1 drop TID OU ; Start 12/26/17 at 17:00; Stop 12/26/17 at 17:00; Status DC Artificial Tears (Refresh Classic) 1 drop TID OU Last administered on at 20:09; Start 12/26/17 at 17:00 Risperidone (RisperDAL) 0.5 mg HS PO Last administered on 12/29/17at 21:33; Start 12/26/17 at 22:30; Stop 12/30/17 at 18:50; Status DC Trazodone HCl (Desyrel) 50 mg PRN QHS PRN PO INSOMNIA; Start 12/26/17 at 22:30 Estradiol (Estrace) 1 barbara QMTH@2100 VG Last administered on 12/29/17at 21:36; Start 12/29/17 at 21:00 Benztropine Mesylate (Cogentin) 0.5 mg BID PO Last administered on 01/03/18at 20 :07; Start 12/30/17 at 21:00 Olanzapine (ZyPREXA) 10 mg HS PO Last administered on 01/03/18at 08:13; Start at 21:00 Risperidone (RisperDAL) 1 mg HS PO Last administered on 01/03/18 20:09; Start 12/30/17 at 21:00 [place] Carbonate 450 mg HS PO Last administered on 01/03/18at 20:09; Start at 21:00 [place] Carbonate 300 mg DAILY PO Last administered on 01/03/18at 08:13; Start 12/31/17 at 09:00 Olanzapine (ZyPREXA) 5 mg DAILY PO Last administered on 01/03/18at 08:15; Start 01/03/18 at 09:00 Active Scripts Active Reported Zyprexa (Olanzapine) 20 Mg Tablet 20 Mg PO HS Zyprexa (Olanzapine) 10 Mg Tablet 10 Mg PO DAILY Trazodone Hcl 50 Mg Tablet 50 Mg PO HS Tegretol (Carbamazepine) 200 Mg Tablet 300 Mg PO BID Sorbitol (Sorbitol Solution) 1 Ml Solution 1 Ml MC Norvasc (Amlodipine Besylate) 5 Mg Tablet 5 Mg PO DAILY [place]-128 (Sodium Chloride) 15 Ml Drops 1 Drop OD HS Miralax (Polyethylene Glycol 3350) 17 Gm Powd.pack 17 Gm PO DAILY Milk Of Magnesia (Magnesium Hydroxide) 2,400 Mg/10 Ml Oral.susp 2,400 Mg PO PRN DAILY PRN [place] Carbonate 300 Mg Tablet 300 Mg PO BID [place] Carbonate 150 Mg Capsule 150 Mg PO HS Lipitor (Atorvastatin Calcium) 20 Mg Tablet 20 Mg PO QHS Levothyroxine Sodium 75 Mcg Tablet 75 Mcg PO DAILYAC Estrace (Estradiol) 42.5 Gm Cream.appl 1 Gm VG HS QMON/THURS Insert at bedtime on Friday and Vitamin D2 (Ergocalciferol (Vitamin D2)) 50,000 Unit Capsule 50,000 Unit PO WEEKLY Endocet 10-325 Mg Tablet (Oxycodone Hcl/Acetaminophen) 1 Each Tablet 1 Tab PO PRN Q6HRS PRN [durezol] Buspirone Hcl 5 Mg Tablet 5 Mg PO PRN Q8HRS PRN Benztropine Mesylate 1 Mg Tablet 1 Mg PO BID Artificial Tears Eye Drops (Dextran 70/Hypromellose) 15 Ml Drops 1 Drop EACHEYE TID Tylenol (Acetaminophen) 325 Mg Tablet 650 Mg PO PRN Q6HRS PRN I have reviewed the current psychotropics carefully including drug interactions. Risk benefit ratio favors no change other than as noted in my dictated progress note. 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
[2018-01-04] MEDS: ACETAMINOPHEN 325 MG TABLET PO PRN (05:22)
[2018-01-04] MEDS: LEVOTHYROXINE 75 MCG TABLET PO SCH (05:22)
[2018-01-04 06:03] VITALS: BP 161/91
[2018-01-04] MEDS: carBAMazepine 200 MG TABLET PO SCH ×2 (07:53→19:58)
[2018-01-04] MEDS: POLYVINYL ALCOHOL/POVIDONE/PF OPHTH SOLUTION DROPERETTE. OU SCH ×3 (07:53→19:59)
[2018-01-04] MEDS: POLYETHYLENE GLYCOL 3350 17 GM PACKET. PO SCH (07:53)
[2018-01-04] MEDS: LITHIUM CARBONATE 300 MG TABLET PO SCH ×2 (07:53→19:58)
[2018-01-04] MEDS: BENZTROPINE MESYLATE 0.5 MG TABLET PO SCH ×2 (07:53→19:58)
[2018-01-04] MEDS: OLANZapine 5 MG TABLET PO SCH (07:53)
[2018-01-04] MEDS: CHOLECALCIFEROL (VITAMIN D3) 50,000 UNIT CAPSULE PO SCH (07:54)
[2018-01-04] MEDS: amLODIPine BESYLATE 5 MG TABLET PO SCH (07:54)
[2018-01-04] MEDS: LACTOBACILLUS RHAMNOSUS GG 1 CAPSULE. PO SCH ×2 (07:54→19:59)
[2018-01-04 16:32] VITALS: BP 143/81
[2018-01-04] MEDS: ATORVASTATIN CALCIUM 20 MG TABLET PO SCH (19:58)
[2018-01-04] MEDS: OLANZapine 10 MG TABLET PO SCH (19:58)
[2018-01-04] MEDS: risperiDONE 1 MG TABLET. PO SCH (19:58)
[2018-01-04] MEDS: traZODone 50 MG TABLET. PO SCH (19:59)
[2018-01-04] MEDS: SODIUM CHLORIDE 5% OPHTH OINTMENT 3.5GM TUBE. OD SCH (20:00)
--- NOTE | 2018-01-04 20:57 | PDOC ---
Exam Note: Julian Note: Please also refer to the separate dictated note~for this date of service dictated separately.~Patient seen individually. Discussed the patient with Nursing staff reviewed the chart.~Reviewed interim history and current functioning. Reviewed vital signs,~Labs/ Radiology~and current medications noted below. Continue current treatment with the changes noted in the dictated addendum note Assessment: Vital Signs: Vital Signs Date Time Temp Pulse Resp B/P (MAP) Pulse Ox O2 Delivery O2 Flow Rate FiO2 01/04/18 16:32 97.2 71 22 143/81 (101) 97 01/02/18 16:02 Room Air I&O Intake and Output 01/04/18 07:01 Intake Total 1200 ml Balance 1200 ml Intake Oral 1200 ml Current Medications: Meds: Current Medications Lactated Ringer's 1,000 ml @ 1,000 mls/hr Q1H IV Last administered on at 23:19; Start 12/25/17 at 23:30; Stop 12/26/17 at 00:29; Status DC Cephalexin HCl (Keflex) 500 mg 1X ONCE PO Last administered on 12/26/17at 05:32 ; Start 12/26/17 at 01:15; Stop 12/26/17 at 01:16; Status DC Levofloxacin (Levaquin) 500 mg 1X ONCE PO Last administered on 12/26/17at 01:45 ; Start 12/26/17 at 01:45; Stop 12/26/17 at 01:46; Status DC Levofloxacin (Levaquin) 500 mg DAILY06 PO Last administered on 12/29/17at 05:32 ; Start 12/27/17 at 06:00; Stop 12/29/17 at 12:04; Status DC Multi-Ingredient Ointment (Analgesic [place]) 1 barbara PRN QID PRN TP MUSCLE PAIN; Start 12/26/17 at 05:15 Al Hydroxide/Mg Hydroxide (Mylanta Plus Xs) 15 ml PRN AFTMEALHC PRN PO DYSPEPSIA; Start 12/26/17 at 05:15 Acetaminophen (Tylenol) 650 mg PRN Q6HRS PRN PO PAIN / TEMP Last administered on 01/04/18at 05:22; Start 12/26/17 at 05:15 Atorvastatin Calcium (Lipitor) 20 mg QHS PO Last administered on 01/04/18at 19: 58; Start 12/26/17 at 21:00 Estradiol (Estrace) 1 barbara QMTH VG ; Start 12/29/17 at 16:00; Stop 12/29/17 at 16 :06; Status DC Levothyroxine Sodium (Synthroid) 75 mcg DAILY07 PO Last administered on at 05:22; Start 12/26/17 at 07:00 Oxycodone/ Acetaminophen (Percocet 10/325) 1 tab PRN Q6HRS PRN PO PAIN Last administered on 12/27/17at 13:18; Start 12/26/17 at 05:15 Sorbitol (Sorbitol Solution) 30 ml PRN DAILY PRN PO CONSTIPATION; Start at 05:15 Amlodipine Besylate (Norvasc) 5 mg DAILY PO Last administered on 01/04/18at 07: 54; Start 12/26/17 at 09:00 Artificial Tears (Artificial Tears) 1 drop TID OU Last administered on at 14:19; Start 12/26/17 at 09:00; Stop 12/26/17 at 16:57; Status DC Vitamin D (Vitamin D3) 50,000 unit QSU PO Last administered on 01/04/18at 07:54 ; Start 12/28/17 at 16:00 Magnesium Hydroxide (Milk Of Magnesia) 2,400 mg PRN DAILY PRN PO CONSTIPATION; Start 12/26/17 at 05:15 Polyethylene Glycol (miraLAX) 17 gm DAILY PO Last administered on 01/04/18at 07: 53; Start 12/26/17 at 09:00 Sodium Chloride (Elmer) 0.25 inch HS OD Last administered on 01/04/18at 20:00; Start 12/26/17 at 21:00 Carbamazepine (TEGretol) 300 mg BID PO Last administered on 01/04/18at 19:58; Start 12/26/17 at 09:00 Benztropine Mesylate (Cogentin) 1 mg BID PO Last administered on 12/30/17at 09: 17; Start 12/26/17 at 09:00; Stop 12/30/17 at 18:50; Status DC Buspirone HCl (Buspar) 5 mg PRN Q8HRS PRN PO PSYCHOSIS Last administered on 03/05at 08:09; Start 12/26/17 at 05:30 [place] Carbonate 150 mg HS PO Last administered on 12/30/17at 20:34; Start 03/05 at 21:00; Stop 12/30/17 at 22:00; Status DC [place] Carbonate 300 mg BID PO Last administered on 12/30/17at 20:34; Start 03/05 at 09:00; Stop 12/30/17 at 22:00; Status DC Olanzapine (ZyPREXA) 10 mg DAILY PO Last administered on 01/02/18at 07:39; Start 12/26/17 at 09:00; Stop 01/02/18 at 17:12; Status DC Olanzapine (ZyPREXA) 20 mg HS PO Last administered on 12/29/17at 21:34; Start at 21:00; Stop 12/30/17 at 18:50; Status DC Trazodone HCl (Desyrel) 50 mg QHS PO Last administered on 01/04/18at 19:59; Start 12/26/17 at 21:00 Cephalexin HCl (Keflex) 250 mg STK-MED ONCE .ROUTE ; Start 12/26/17 at 05:29; Stop 12/26/17 at 05:30; Status DC Lactobacillus Rhamnosus (Culturelle) 1 cap BID PO Last administered on at 19:59; Start 12/26/17 at 09:00 Phenazopyridine HCl (Pyridium) 100 mg TID PO Last administered on 12/28/17at 07: 52; Start 12/26/17 at 14:00; Stop 12/28/17 at 13:00; Status DC Artificial Tears (Refresh Classic) 1 drop TID OU ; Start 12/26/17 at 17:00; Stop 12/26/17 at 17:00; Status DC Artificial Tears (Refresh Classic) 1 drop TID OU Last administered on at 19:59; Start 12/26/17 at 17:00 Risperidone (RisperDAL) 0.5 mg HS PO Last administered on 12/29/17at 21:33; Start 12/26/17 at 22:30; Stop 12/30/17 at 18:50; Status DC Trazodone HCl (Desyrel) 50 mg PRN QHS PRN PO INSOMNIA; Start 12/26/17 at 22:30 Estradiol (Estrace) 1 barbara QMTH@2100 VG Last administered on 12/29/17at 21:36; Start 12/29/17 at 21:00 Benztropine Mesylate (Cogentin) 0.5 mg BID PO Last administered on 01/04/18at 19 :58; Start 12/30/17 at 21:00 Olanzapine (ZyPREXA) 10 mg HS PO Last administered on 01/04/18at 19:58; Start at 21:00 Risperidone (RisperDAL) 1 mg HS PO Last administered on 01/04/18 19:58; Start 12/30/17 at 21:00 [place] Carbonate 450 mg HS PO Last administered on 01/04/18 19:58; Start at 21:00 [place] Carbonate 300 mg DAILY PO Last administered on 01/04/18at 07:53; Start 12/31/17 at 09:00 Olanzapine (ZyPREXA) 5 mg DAILY PO Last administered on 01/04/18at 07:53; Start 01/03/18 at 09:00; Stop 01/04/18 at 18:24; Status DC Active Scripts Active Reported Zyprexa (Olanzapine) 20 Mg Tablet 20 Mg PO HS Zyprexa (Olanzapine) 10 Mg Tablet 10 Mg PO DAILY Trazodone Hcl 50 Mg Tablet 50 Mg PO HS Tegretol (Carbamazepine) 200 Mg Tablet 300 Mg PO BID Sorbitol (Sorbitol Solution) 1 Ml Solution 1 Ml MC Norvasc (Amlodipine Besylate) 5 Mg Tablet 5 Mg PO DAILY [place]-128 (Sodium Chloride) 15 Ml Drops 1 Drop OD HS Miralax (Polyethylene Glycol 3350) 17 Gm Powd.pack 17 Gm PO DAILY Milk Of Magnesia (Magnesium Hydroxide) 2,400 Mg/10 Ml Oral.susp 2,400 Mg PO PRN DAILY PRN [place] Carbonate 300 Mg Tablet 300 Mg PO BID [place] Carbonate 150 Mg Capsule 150 Mg PO HS Lipitor (Atorvastatin Calcium) 20 Mg Tablet 20 Mg PO QHS Levothyroxine Sodium 75 Mcg Tablet 75 Mcg PO DAILYAC Estrace (Estradiol) 42.5 Gm Cream.appl 1 Gm VG HS QMON/THURS Insert at bedtime on Friday and Vitamin D2 (Ergocalciferol (Vitamin D2)) 50,000 Unit Capsule 50,000 Unit PO WEEKLY Endocet 10-325 Mg Tablet (Oxycodone Hcl/Acetaminophen) 1 Each Tablet 1 Tab PO PRN Q6HRS PRN [durezol] Buspirone Hcl 5 Mg Tablet 5 Mg PO PRN Q8HRS PRN Benztropine Mesylate 1 Mg Tablet 1 Mg PO BID Artificial Tears Eye Drops (Dextran 70/Hypromellose) 15 Ml Drops 1 Drop EACHEYE TID Tylenol (Acetaminophen) 325 Mg Tablet 650 Mg PO PRN Q6HRS PRN I have reviewed the current psychotropics carefully including drug interactions. Risk benefit ratio favors no change other than as noted in my dictated progress note. 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
--- NOTE | 2018-01-04 22:29 | PN ---
DATE: 01/02/2018 PSYCHIATRIC PROGRESS NOTE This is a late entry 01/02/2018 covers elements not covered in my initial note. SUBJECTIVE: I met with the patient in the evening. The patient remains somewhat hyperverbal, manic, but denies this. She is less psychotic, less irritable, nevertheless. REVIEW OF SYSTEMS: No CV, , pulmonary, eye, ENT system symptoms on review. MENTAL STATUS EXAM: Oriented to herself and situation. Speech coherent, still pressured, less so than before. Abstraction fair, computation impaired, language function intact, attention span short. Mood and affect remain somewhat labile. LABORATORY DATA: Reviewed. IMPRESSION: Bipolar 1 disorder, mixed. Rest unchanged. PLAN: Reduce Zyprexa to 5 mg a.m. and 10 mg at bedtime. The patient is on Risperdal 1 mg at bedtime, may reduce Zyprexa further in due course. KIERSTEN WATT MD DR: SANCHEZ/fredrick JOB#: [id number] / [id number]
[2018-01-05] MEDS: LEVOTHYROXINE 75 MCG TABLET PO SCH (05:09)
[2018-01-05 06:01] VITALS: BP 134/65
[2018-01-05] MEDS: POLYVINYL ALCOHOL/POVIDONE/PF OPHTH SOLUTION DROPERETTE. OU SCH ×3 (09:13→20:29)
[2018-01-05] MEDS: carBAMazepine 200 MG TABLET PO SCH ×2 (09:14→20:28)
[2018-01-05] MEDS: LITHIUM CARBONATE 300 MG TABLET PO SCH ×2 (09:14→20:27)
[2018-01-05] MEDS: BENZTROPINE MESYLATE 0.5 MG TABLET PO SCH ×2 (09:14→20:28)
[2018-01-05] MEDS: amLODIPine BESYLATE 5 MG TABLET PO SCH (09:14)
[2018-01-05] MEDS: LACTOBACILLUS RHAMNOSUS GG 1 CAPSULE. PO SCH ×2 (09:14→20:26)
[2018-01-05] MEDS: POLYETHYLENE GLYCOL 3350 17 GM PACKET. PO SCH (09:15)
--- NOTE | 2018-01-05 13:35 | PN ---
DATE: 01/03/2018 PSYCHIATRIC PROGRESS NOTE This is a late entry, 01/03, covers elements not covered in my initial note. SUBJECTIVE: I met with the patient in the morning. The patient slept 5-1/4 hours previous evening, less pressured in her speech, still somewhat labile in her mood, but better. REVIEW OF SYSTEMS: No CV, , pulmonary, eye, ENT system symptoms on review. MENTAL STATUS EXAM: Reasonably oriented. Speech as above. Abstraction fair, computation impaired, language function intact, attention span short. Mood and affect less grandiose. LABORATORY DATA: Reviewed, less labile in her mood. IMPRESSION: Unchanged from initial note. Bipolar 1 disorder, mixed with psychotic features, in partial remission. Rest unchanged. PLAN: Continue psychotropics mentioned in my initial note. [place] and Tegretol level are therapeutic. Zyprexa is being tapered as she is on Risperdal, which we may need to increase the latter. KIERSTEN WATT MD DR: SANCHEZ/fredrick JOB#: [id number] / [id number]
[2018-01-05 15:50] VITALS: BP 131/84
[2018-01-05] MEDS: traZODone 50 MG TABLET. PO SCH (20:28)
[2018-01-05] MEDS: risperiDONE 1 MG TABLET. PO SCH (20:28)
[2018-01-05] MEDS: OLANZapine 10 MG TABLET PO SCH (20:28)
[2018-01-05] MEDS: ATORVASTATIN CALCIUM 20 MG TABLET PO SCH (20:29)
[2018-01-05] MEDS: SODIUM CHLORIDE 5% OPHTH OINTMENT 3.5GM TUBE. OD SCH (20:30)
[2018-01-05] MEDS: ESTRADIOL 0.01% VAGINAL CREAM 42.5GM TUBE. VG SCH (20:32)
--- NOTE | 2018-01-05 20:59 | PDOC ---
Exam Note: Julian Note: Please also refer to the separate dictated note~for this date of service dictated separately.~Patient seen individually. Discussed the patient with Nursing staff reviewed the chart.~Reviewed interim history and current functioning. Reviewed vital signs,~Labs/ Radiology~and current medications noted below. Continue current treatment with the changes noted in the dictated addendum note Assessment: Vital Signs: Vital Signs Date Time Temp Pulse Resp B/P (MAP) Pulse Ox O2 Delivery O2 Flow Rate FiO2 01/05/18 15:50 98.6 67 18 131/84 (100) 95 01/02/18 16:02 Room Air I&O Intake and Output 01/05/18 07:01 Intake Total 1920 ml Balance 1920 ml Intake Oral 1920 ml # Voids 1 Current Medications: Meds: Current Medications Lactated Ringer's 1,000 ml @ 1,000 mls/hr Q1H IV Last administered on at 23:19; Start 12/25/17 at 23:30; Stop 12/26/17 at 00:29; Status DC Cephalexin HCl (Keflex) 500 mg 1X ONCE PO Last administered on 12/26/17at 05:32 ; Start 12/26/17 at 01:15; Stop 12/26/17 at 01:16; Status DC Levofloxacin (Levaquin) 500 mg 1X ONCE PO Last administered on 12/26/17at 01:45 ; Start 12/26/17 at 01:45; Stop 12/26/17 at 01:46; Status DC Levofloxacin (Levaquin) 500 mg DAILY06 PO Last administered on 12/29/17at 05:32 ; Start 12/27/17 at 06:00; Stop 12/29/17 at 12:04; Status DC Multi-Ingredient Ointment (Analgesic [place]) 1 barbara PRN QID PRN TP MUSCLE PAIN; Start 12/26/17 at 05:15 Al Hydroxide/Mg Hydroxide (Mylanta Plus Xs) 15 ml PRN AFTMEALHC PRN PO DYSPEPSIA; Start 12/26/17 at 05:15 Acetaminophen (Tylenol) 650 mg PRN Q6HRS PRN PO PAIN / TEMP Last administered on 01/04/18at 05:22; Start 12/26/17 at 05:15 Atorvastatin Calcium (Lipitor) 20 mg QHS PO Last administered on 01/05/18at 20: 29; Start 12/26/17 at 21:00 Estradiol (Estrace) 1 barbara QMTH VG ; Start 12/29/17 at 16:00; Stop 12/29/17 at 16 :06; Status DC Levothyroxine Sodium (Synthroid) 75 mcg DAILY07 PO Last administered on at 05:09; Start 12/26/17 at 07:00 Oxycodone/ Acetaminophen (Percocet 10/325) 1 tab PRN Q6HRS PRN PO PAIN Last administered on 12/27/17at 13:18; Start 12/26/17 at 05:15 Sorbitol (Sorbitol Solution) 30 ml PRN DAILY PRN PO CONSTIPATION; Start at 05:15 Amlodipine Besylate (Norvasc) 5 mg DAILY PO Last administered on 01/05/18 09: 14; Start 12/26/17 at 09:00 Artificial Tears (Artificial Tears) 1 drop TID OU Last administered on at 14:19; Start 12/26/17 at 09:00; Stop 12/26/17 at 16:57; Status DC Vitamin D (Vitamin D3) 50,000 unit QSU PO Last administered on 01/04/18 07:54 ; Start 12/28/17 at 16:00 Magnesium Hydroxide (Milk Of Magnesia) 2,400 mg PRN DAILY PRN PO CONSTIPATION; Start 12/26/17 at 05:15 Polyethylene Glycol (miraLAX) 17 gm DAILY PO Last administered on 01/05/18at 09: 15; Start 12/26/17 at 09:00 Sodium Chloride ([place]) 0.25 inch HS OD Last administered on 01/05/18at 20:30; Start 12/26/17 at 21:00 Carbamazepine (TEGretol) 300 mg BID PO Last administered on 01/05/18 20:28; Start 12/26/17 at 09:00 Benztropine Mesylate (Cogentin) 1 mg BID PO Last administered on 12/30/17at 09: 17; Start 12/26/17 at 09:00; Stop 12/30/17 at 18:50; Status DC Buspirone HCl (Buspar) 5 mg PRN Q8HRS PRN PO PSYCHOSIS Last administered on 03/05at 08:09; Start 12/26/17 at 05:30 [place] Carbonate 150 mg HS PO Last administered on 12/30/17 20:34; Start 03/05 at 21:00; Stop 12/30/17 at 22:00; Status DC [place] Carbonate 300 mg BID PO Last administered on 12/30/17 20:34; Start 03/05 at 09:00; Stop 12/30/17 at 22:00; Status DC Olanzapine (ZyPREXA) 10 mg DAILY PO Last administered on 01/02/18at 07:39; Start 12/26/17 at 09:00; Stop 01/02/18 at 17:12; Status DC Olanzapine (ZyPREXA) 20 mg HS PO Last administered on 12/29/17 21:34; Start at 21:00; Stop 12/30/17 at 18:50; Status DC Trazodone HCl (Desyrel) 50 mg QHS PO Last administered on 01/05/18at 20:28; Start 12/26/17 at 21:00 Cephalexin HCl (Keflex) 250 mg STK-MED ONCE .ROUTE ; Start 12/26/17 at 05:29; Stop 12/26/17 at 05:30; Status DC Lactobacillus Rhamnosus (Culturelle) 1 cap BID PO Last administered on at 20:26; Start 12/26/17 at 09:00 Phenazopyridine HCl (Pyridium) 100 mg TID PO Last administered on 12/28/17at 07: 52; Start 12/26/17 at 14:00; Stop 12/28/17 at 13:00; Status DC Artificial Tears (Refresh Classic) 1 drop TID OU ; Start 12/26/17 at 17:00; Stop 12/26/17 at 17:00; Status DC Artificial Tears (Refresh Classic) 1 drop TID OU Last administered on at 20:29; Start 12/26/17 at 17:00 Risperidone (RisperDAL) 0.5 mg HS PO Last administered on 12/29/17 21:33; Start 12/26/17 at 22:30; Stop 12/30/17 at 18:50; Status DC Trazodone HCl (Desyrel) 50 mg PRN QHS PRN PO INSOMNIA; Start 12/26/17 at 22:30 Estradiol (Estrace) 1 barbara QMTH@2100 VG Last administered on 01/05/18at 20:32; Start 12/29/17 at 21:00 Benztropine Mesylate (Cogentin) 0.5 mg BID PO Last administered on 01/05/18at 20 :28; Start 12/30/17 at 21:00 Olanzapine (ZyPREXA) 10 mg HS PO Last administered on 01/05/18at 20:28; Start at 21:00 Risperidone (RisperDAL) 1 mg HS PO Last administered on 01/05/18 20:28; Start 12/30/17 at 21:00 [place] Carbonate 450 mg HS PO Last administered on 01/05/18 20:27; Start at 21:00 [place] Carbonate 300 mg DAILY PO Last administered on 01/05/18 09:14; Start 12/31/17 at 09:00 Olanzapine (ZyPREXA) 5 mg DAILY PO Last administered on 01/04/18at 07:53; Start 01/03/18 at 09:00; Stop 01/04/18 at 18:24; Status DC Active Scripts Active Reported Zyprexa (Olanzapine) 20 Mg Tablet 20 Mg PO HS Zyprexa (Olanzapine) 10 Mg Tablet 10 Mg PO DAILY Trazodone Hcl 50 Mg Tablet 50 Mg PO HS Tegretol (Carbamazepine) 200 Mg Tablet 300 Mg PO BID Sorbitol (Sorbitol Solution) 1 Ml Solution 1 Ml MC Norvasc (Amlodipine Besylate) 5 Mg Tablet 5 Mg PO DAILY [place]-128 (Sodium Chloride) 15 Ml Drops 1 Drop OD HS Miralax (Polyethylene Glycol 3350) 17 Gm Powd.pack 17 Gm PO DAILY Milk Of Magnesia (Magnesium Hydroxide) 2,400 Mg/10 Ml Oral.susp 2,400 Mg PO PRN DAILY PRN [place] Carbonate 300 Mg Tablet 300 Mg PO BID [place] Carbonate 150 Mg Capsule 150 Mg PO HS Lipitor (Atorvastatin Calcium) 20 Mg Tablet 20 Mg PO QHS Levothyroxine Sodium 75 Mcg Tablet 75 Mcg PO DAILYAC Estrace (Estradiol) 42.5 Gm Cream.appl 1 Gm VG HS QMON/THURS Insert at bedtime on Friday and Vitamin D2 (Ergocalciferol (Vitamin D2)) 50,000 Unit Capsule 50,000 Unit PO WEEKLY Endocet 10-325 Mg Tablet (Oxycodone Hcl/Acetaminophen) 1 Each Tablet 1 Tab PO PRN Q6HRS PRN [durezol] Buspirone Hcl 5 Mg Tablet 5 Mg PO PRN Q8HRS PRN Benztropine Mesylate 1 Mg Tablet 1 Mg PO BID Artificial Tears Eye Drops (Dextran 70/Hypromellose) 15 Ml Drops 1 Drop EACHEYE TID Tylenol (Acetaminophen) 325 Mg Tablet 650 Mg PO PRN Q6HRS PRN I have reviewed the current psychotropics carefully including drug interactions. Risk benefit ratio favors no change other than as noted in my dictated progress note. 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
--- NOTE | 2018-01-05 23:29 | PN ---
DATE: 01/04/2018 PSYCHIATRIC PROGRESS NOTE This is a late entry, 01/04, covers elements not covered in my initial note. SUBJECTIVE: I met with the patient in the morning. Overall, the patient is doing better, less hyper and impulsive. Sleeping well, but quite abrasive and somewhat loud at times with poor social skills, partly due to her amita, even though this is improved. REVIEW OF SYSTEMS: No CV, , pulmonary, eye, ENT system symptoms on review. MENTAL STATUS EXAM: Reasonably oriented. Speech is coherent, less pressured. Abstraction fair, computation impaired, language function intact, attention span short. Mood and affect, grandiosity, lability is improved. LABORATORY DATA: Reviewed. IMPRESSION: Unchanged from initial note. PLAN: No change from initial note. We will go ahead and stop the morning Zyprexa 5 mg. Continue 10 mg at bedtime since we have started Risperdal 1 mg at bedtime. Continue lithium, Tegretol, Cogentin has been reduced. Discontinue the BuSpar. MAN Rox WATT MD DR: SANCHEZ/fredrick JOB#: [id number] / [id number]
[2018-01-06 05:22] VITALS: BP 136/75
[2018-01-06] MEDS: LEVOTHYROXINE 75 MCG TABLET PO SCH (06:04)
[2018-01-06] MEDS: BENZTROPINE MESYLATE 0.5 MG TABLET PO SCH ×2 (09:15→19:46)
[2018-01-06] MEDS: LITHIUM CARBONATE 300 MG TABLET PO SCH ×2 (09:15→19:43)
[2018-01-06] MEDS: amLODIPine BESYLATE 5 MG TABLET PO SCH (09:15)
[2018-01-06] MEDS: LACTOBACILLUS RHAMNOSUS GG 1 CAPSULE. PO SCH ×2 (09:15→19:45)
[2018-01-06] MEDS: POLYETHYLENE GLYCOL 3350 17 GM PACKET. PO SCH (09:15)
[2018-01-06] MEDS: POLYVINYL ALCOHOL/POVIDONE/PF OPHTH SOLUTION DROPERETTE. OU SCH ×3 (09:16→19:46)
[2018-01-06] MEDS: carBAMazepine 200 MG TABLET PO SCH ×2 (09:16→19:44)
[2018-01-06 16:01] VITALS: BP 152/80
[2018-01-06] MEDS: risperiDONE 1 MG TABLET. PO SCH (19:45)
[2018-01-06] MEDS: traZODone 50 MG TABLET. PO SCH (19:45)
[2018-01-06] MEDS: OLANZapine 10 MG TABLET PO SCH (19:46)
[2018-01-06] MEDS: ATORVASTATIN CALCIUM 20 MG TABLET PO SCH (19:46)
[2018-01-06] MEDS: SODIUM CHLORIDE 5% OPHTH OINTMENT 3.5GM TUBE. OD SCH (19:49)
--- NOTE | 2018-01-06 20:53 | PDOC ---
Exam Note: Julian Note: Please also refer to the separate dictated note~for this date of service dictated separately.~Patient seen individually. Discussed the patient with Nursing staff reviewed the chart.~Reviewed interim history and current functioning. Reviewed vital signs,~Labs/ Radiology~and current medications noted below. Continue current treatment with the changes noted in the dictated addendum note Assessment: Vital Signs: Vital Signs Date Time Temp Pulse Resp B/P (MAP) Pulse Ox O2 Delivery O2 Flow Rate FiO2 01/06/18 16:01 98.0 93 20 152/80 (104) 96 01/02/18 16:02 Room Air I&O Intake and Output 01/06/18 07:00 Intake Total 1680 ml Balance 1680 ml Intake Oral 1680 ml # Voids 1 Current Medications: Meds: Current Medications Lactated Ringer's 1,000 ml @ 1,000 mls/hr Q1H IV Last administered on at 23:19; Start 12/25/17 at 23:30; Stop 12/26/17 at 00:29; Status DC Cephalexin HCl (Keflex) 500 mg 1X ONCE PO Last administered on 12/26/17at 05:32 ; Start 12/26/17 at 01:15; Stop 12/26/17 at 01:16; Status DC Levofloxacin (Levaquin) 500 mg 1X ONCE PO Last administered on 12/26/17at 01:45 ; Start 12/26/17 at 01:45; Stop 12/26/17 at 01:46; Status DC Levofloxacin (Levaquin) 500 mg DAILY06 PO Last administered on 12/29/17at 05:32 ; Start 12/27/17 at 06:00; Stop 12/29/17 at 12:04; Status DC Multi-Ingredient Ointment (Analgesic [place]) 1 barbara PRN QID PRN TP MUSCLE PAIN; Start 12/26/17 at 05:15 Al Hydroxide/Mg Hydroxide (Mylanta Plus Xs) 15 ml PRN AFTMEALHC PRN PO DYSPEPSIA; Start 12/26/17 at 05:15 Acetaminophen (Tylenol) 650 mg PRN Q6HRS PRN PO PAIN / TEMP Last administered on 01/04/18at 05:22; Start 12/26/17 at 05:15 Atorvastatin Calcium (Lipitor) 20 mg QHS PO Last administered on 01/06/18at 19: 46; Start 12/26/17 at 21:00 Estradiol (Estrace) 1 barbara QMTH VG ; Start 12/29/17 at 16:00; Stop 12/29/17 at 16 :06; Status DC Levothyroxine Sodium (Synthroid) 75 mcg DAILY07 PO Last administered on at 06:04; Start 12/26/17 at 07:00 Oxycodone/ Acetaminophen (Percocet 10/325) 1 tab PRN Q6HRS PRN PO PAIN Last administered on 12/27/17at 13:18; Start 12/26/17 at 05:15 Sorbitol (Sorbitol Solution) 30 ml PRN DAILY PRN PO CONSTIPATION; Start at 05:15 Amlodipine Besylate (Norvasc) 5 mg DAILY PO Last administered on 01/06/18at 09: 15; Start 12/26/17 at 09:00 Artificial Tears (Artificial Tears) 1 drop TID OU Last administered on at 14:19; Start 12/26/17 at 09:00; Stop 12/26/17 at 16:57; Status DC Vitamin D (Vitamin D3) 50,000 unit QSU PO Last administered on 01/04/18at 07:54 ; Start 12/28/17 at 16:00 Magnesium Hydroxide (Milk Of Magnesia) 2,400 mg PRN DAILY PRN PO CONSTIPATION; Start 12/26/17 at 05:15 Polyethylene Glycol (miraLAX) 17 gm DAILY PO Last administered on 01/06/18at 09: 15; Start 12/26/17 at 09:00 Sodium Chloride (Elmer) 0.25 inch HS OD Last administered on 01/06/18at 19:49; Start 12/26/17 at 21:00 Carbamazepine (TEGretol) 300 mg BID PO Last administered on 01/06/18 19:44; Start 12/26/17 at 09:00 Benztropine Mesylate (Cogentin) 1 mg BID PO Last administered on 12/30/17at 09: 17; Start 12/26/17 at 09:00; Stop 12/30/17 at 18:50; Status DC Buspirone HCl (Buspar) 5 mg PRN Q8HRS PRN PO PSYCHOSIS Last administered on 03/05at 08:09; Start 12/26/17 at 05:30 [place] Carbonate 150 mg HS PO Last administered on 12/30/17 20:34; Start 03/05 at 21:00; Stop 12/30/17 at 22:00; Status DC [place] Carbonate 300 mg BID PO Last administered on 12/30/17at 20:34; Start 03/05 at 09:00; Stop 12/30/17 at 22:00; Status DC Olanzapine (ZyPREXA) 10 mg DAILY PO Last administered on 01/02/18at 07:39; Start 12/26/17 at 09:00; Stop 01/02/18 at 17:12; Status DC Olanzapine (ZyPREXA) 20 mg HS PO Last administered on 12/29/17at 21:34; Start at 21:00; Stop 12/30/17 at 18:50; Status DC Trazodone HCl (Desyrel) 50 mg QHS PO Last administered on 01/06/18at 19:45; Start 12/26/17 at 21:00 Cephalexin HCl (Keflex) 250 mg STK-MED ONCE .ROUTE ; Start 12/26/17 at 05:29; Stop 12/26/17 at 05:30; Status DC Lactobacillus Rhamnosus (Culturelle) 1 cap BID PO Last administered on at 19:45; Start 12/26/17 at 09:00 Phenazopyridine HCl (Pyridium) 100 mg TID PO Last administered on 12/28/17at 07: 52; Start 12/26/17 at 14:00; Stop 12/28/17 at 13:00; Status DC Artificial Tears (Refresh Classic) 1 drop TID OU ; Start 12/26/17 at 17:00; Stop 12/26/17 at 17:00; Status DC Artificial Tears (Refresh Classic) 1 drop TID OU Last administered on at 19:46; Start 12/26/17 at 17:00 Risperidone (RisperDAL) 0.5 mg HS PO Last administered on 12/29/17at 21:33; Start 12/26/17 at 22:30; Stop 12/30/17 at 18:50; Status DC Trazodone HCl (Desyrel) 50 mg PRN QHS PRN PO INSOMNIA; Start 12/26/17 at 22:30 Estradiol (Estrace) 1 barbara QMTH@2100 VG Last administered on 01/05/18at 20:32; Start 12/29/17 at 21:00 Benztropine Mesylate (Cogentin) 0.5 mg BID PO Last administered on 01/06/18at 19 :46; Start 12/30/17 at 21:00 Olanzapine (ZyPREXA) 10 mg HS PO Last administered on 01/06/18at 19:46; Start at 21:00 Risperidone (RisperDAL) 1 mg HS PO Last administered on 01/05/18at 20:28; Start 12/30/17 at 21:00; Stop 01/06/18 at 17:55; Status DC [place] Carbonate 450 mg HS PO Last administered on 01/06/18at 19:43; Start at 21:00 [place] Carbonate 300 mg DAILY PO Last administered on 01/06/18at 09:15; Start 12/31/17 at 09:00 Olanzapine (ZyPREXA) 5 mg DAILY PO Last administered on 01/04/18at 07:53; Start 01/03/18 at 09:00; Stop 01/04/18 at 18:24; Status DC Risperidone (RisperDAL) 1.5 mg HS PO Last administered on 01/06/18at 19:45; Start 01/06/18 at 21:00 Active Scripts Active Reported Zyprexa (Olanzapine) 20 Mg Tablet 20 Mg PO HS Zyprexa (Olanzapine) 10 Mg Tablet 10 Mg PO DAILY Trazodone Hcl 50 Mg Tablet 50 Mg PO HS Tegretol (Carbamazepine) 200 Mg Tablet 300 Mg PO BID Sorbitol (Sorbitol Solution) 1 Ml Solution 1 Ml MC Norvasc (Amlodipine Besylate) 5 Mg Tablet 5 Mg PO DAILY [place]-128 (Sodium Chloride) 15 Ml Drops 1 Drop OD HS Miralax (Polyethylene Glycol 3350) 17 Gm Powd.pack 17 Gm PO DAILY Milk Of Magnesia (Magnesium Hydroxide) 2,400 Mg/10 Ml Oral.susp 2,400 Mg PO PRN DAILY PRN [place] Carbonate 300 Mg Tablet 300 Mg PO BID [place] Carbonate 150 Mg Capsule 150 Mg PO HS Lipitor (Atorvastatin Calcium) 20 Mg Tablet 20 Mg PO QHS Levothyroxine Sodium 75 Mcg Tablet 75 Mcg PO DAILYAC Estrace (Estradiol) 42.5 Gm Cream.appl 1 Gm VG HS QM/ Insert at bedtime on Friday and Vitamin D2 (Ergocalciferol (Vitamin D2)) 50,000 Unit Capsule 50,000 Unit PO WEEKLY Endocet 10-325 Mg Tablet (Oxycodone Hcl/Acetaminophen) 1 Each Tablet 1 Tab PO PRN Q6HRS PRN [durezol] Buspirone Hcl 5 Mg Tablet 5 Mg PO PRN Q8HRS PRN Benztropine Mesylate 1 Mg Tablet 1 Mg PO BID Artificial Tears Eye Drops (Dextran 70/Hypromellose) 15 Ml Drops 1 Drop EACHEYE TID Tylenol (Acetaminophen) 325 Mg Tablet 650 Mg PO PRN Q6HRS PRN I have reviewed the current psychotropics carefully including drug interactions. Risk benefit ratio favors no change other than as noted in my dictated progress note. 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
--- NOTE | 2018-01-07 02:21 | PN ---
DATE: 01/05/2018 PSYCHIATRIC PROGRESS NOTE This is a late entry 01/05/2018 covers elements not covered in my initial note. SUBJECTIVE: I met with the patient in the evening. The patient slept 8 hours previous evening. She remains somewhat abrupt in her conversation graph, loud at times, but redirectable, appears less psychotic. REVIEW OF SYSTEMS: No CV, , pulmonary, eye, ENT system symptoms on review. She slept 6-3/4 hours previous evening, somewhat demanding at times, especially about the telephone. MENTAL STATUS EXAM: Reasonably oriented. Speech is as noted, abstraction fair. Computation, able to do two steps and serial sevens, remembered 2/3 objects at 3 minutes. No suicidal or homicidal ideation. Somewhat suspicious at times, but overall less psychotic. LABORATORY DATA: Reviewed. IMPRESSION: Bipolar 1 disorder, manic with psychotic features, in partial remission; cognitive disorder, unspecified; anxiety disorder, unspecified. PLAN: Morning Zyprexa has been stopped. She is on Risperdal 1 mg at bedtime. We may need to increase this. Continue lithium, Tegretol at therapeutic levels. MAN Rox WATT MD DR: SANCHEZ/fredrick JOB#: [id number] / [id number]
[2018-01-07] MEDS: ACETAMINOPHEN 325 MG TABLET PO PRN (04:56)
[2018-01-07] MEDS: LEVOTHYROXINE 75 MCG TABLET PO SCH (04:56)
[2018-01-07 05:38] VITALS: BP 134/46
[2018-01-07 07:30] LABS: BASO % 1 % (0-3); EOS # 0.2 x10^3/uL (0.0-0.7); EOS % 4 % (0-3); HEMATOCRIT 37.3 % (36.0-47.0); HEMOGLOBIN 12.5 g/dL (12.0-15.5); LYMPH # 1.5 x10^3/uL (1.0-4.8); LYMPH % 28 % (24-48); MEAN CORPUSCULAR HEMOGLOBIN 31 pg (25-35); MEAN CORPUSCULAR HGB CONC 34 g/dL (31-37); MEAN CORPUSCULAR VOLUME 92 fL (79-100); MONO # 0.6 x10^3/uL (0.0-1.1); MONO % 10 % (0-9); NEUT # 3.1 x10^3uL (1.8-7.7); NEUT % 57 % (31-73); PLATELET COUNT 193 x10^3/uL (140-400); RED BLOOD COUNT 4.07 x10^6/uL (3.50-5.40); RED CELL DISTRIBUTION WIDTH 12.9 % (11.5-14.5); WHITE BLOOD COUNT 5.4 x10^3/uL (4.0-11.0)
[2018-01-07 07:45] LABS: ALBUMIN 3.2 g/dL (3.4-5.0); ALBUMIN/GLOBULIN RATIO 0.9 (1.0-1.7); CALCIUM 10.3 mg/dL (8.5-10.1); CREATININE 0.9 mg/dL (0.6-1.0); GFR 62.3; POTASSIUM 4.6 mmol/L (3.5-5.1); TOTAL BILIRUBIN 0.3 mg/dL (0.2-1.0); TOTAL PROTEIN 6.7 g/dL (6.4-8.2)
[2018-01-07] MEDS: amLODIPine BESYLATE 5 MG TABLET PO SCH (08:17)
[2018-01-07] MEDS: BENZTROPINE MESYLATE 0.5 MG TABLET PO SCH ×2 (08:17→20:30)
[2018-01-07] MEDS: POLYVINYL ALCOHOL/POVIDONE/PF OPHTH SOLUTION DROPERETTE. OU SCH ×3 (08:17→20:32)
[2018-01-07] MEDS: carBAMazepine 200 MG TABLET PO SCH ×2 (08:18→20:32)
[2018-01-07] MEDS: LITHIUM CARBONATE 300 MG TABLET PO SCH ×2 (08:18→20:31)
[2018-01-07] MEDS: LACTOBACILLUS RHAMNOSUS GG 1 CAPSULE. PO SCH ×2 (08:18→20:30)
[2018-01-07] MEDS: POLYETHYLENE GLYCOL 3350 17 GM PACKET. PO SCH (08:18)
[2018-01-07 16:04] VITALS: BP 135/77
[2018-01-07] MEDS: risperiDONE 1 MG TABLET. PO SCH (20:31)
[2018-01-07] MEDS: traZODone 50 MG TABLET. PO SCH (20:31)
[2018-01-07] MEDS: ATORVASTATIN CALCIUM 20 MG TABLET PO SCH (20:31)
[2018-01-07] MEDS: SODIUM CHLORIDE 5% OPHTH OINTMENT 3.5GM TUBE. OD SCH (20:33)
[2018-01-07] MEDS: OLANZapine 5 MG TABLET PO SCH (20:35)
--- NOTE | 2018-01-07 21:09 | PDOC ---
Exam Note: Julian Note: Please also refer to the separate dictated note~for this date of service dictated separately.~Patient seen individually. Discussed the patient with Nursing staff reviewed the chart.~Reviewed interim history and current functioning. Reviewed vital signs,~Labs/ Radiology~and current medications noted below. Continue current treatment with the changes noted in the dictated addendum note Assessment: Vital Signs: Vital Signs Date Time Temp Pulse Resp B/P (MAP) Pulse Ox O2 Delivery O2 Flow Rate FiO2 01/07/18 16:04 98.3 82 20 135/77 (96) 94 01/02/18 16:02 Room Air I&O Intake and Output 01/07/18 07:00 Intake Total 1080 ml Balance 1080 ml Intake Oral 1080 ml # Voids 1 Labs: Laboratory Tests Test 01/07/18 06:55 White Blood Count 5.4 x10^3/uL (4.0-11.0) Red Blood Count 4.07 x10^6/uL (3.50-5.40) Hemoglobin 12.5 g/dL (12.0-15.5) Hematocrit 37.3 % (36.0-47.0) Mean Corpuscular Volume 92 fL (79-100) Mean Corpuscular Hemoglobin 31 pg (25-35) Mean Corpuscular Hemoglobin Concent 34 g/dL (31-37) Red Cell Distribution Width 12.9 % (11.5-14.5) Platelet Count 193 x10^3/uL (140-400) Neutrophils (%) (Auto) 57 % (31-73) Lymphocytes (%) (Auto) 28 % (24-48) Monocytes (%) (Auto) 10 % (0-9) H Eosinophils (%) (Auto) 4 % (0-3) H Basophils (%) (Auto) 1 % (0-3) Neutrophils # (Auto) 3.1 x10^3uL (1.8-7.7) Lymphocytes # (Auto) 1.5 x10^3/uL (1.0-4.8) Monocytes # (Auto) 0.6 x10^3/uL (0.0-1.1) Eosinophils # (Auto) 0.2 x10^3/uL (0.0-0.7) Basophils # (Auto) 0.0 x10^3/uL (0.0-0.2) Sodium Level 142 mmol/L (136-145) Potassium Level 4.6 mmol/L (3.5-5.1) Chloride Level 108 mmol/L (98-107) H Carbon Dioxide Level 28 mmol/L (21-32) Anion Gap 6 (6-14) Blood Urea Nitrogen 15 mg/dL (7-20) Creatinine 0.9 mg/dL (0.6-1.0) Estimated GFR (Cockcroft-Gault) 62.3 BUN/Creatinine Ratio 17 (6-20) Glucose Level 101 mg/dL (70-99) H Calcium Level 10.3 mg/dL (8.5-10.1) H Total Bilirubin 0.3 mg/dL (0.2-1.0) Aspartate Amino Transferase (AST) 19 U/L (15-37) Alanine Aminotransferase (ALT) 20 U/L (14-59) Alkaline Phosphatase 128 U/L (46-116) H Total Protein 6.7 g/dL (6.4-8.2) Albumin 3.2 g/dL (3.4-5.0) L Albumin/Globulin Ratio 0.9 (1.0-1.7) L Current Medications: Meds: Current Medications Lactated Ringer's 1,000 ml @ 1,000 mls/hr Q1H IV Last administered on at 23:19; Start 12/25/17 at 23:30; Stop 12/26/17 at 00:29; Status DC Cephalexin HCl (Keflex) 500 mg 1X ONCE PO Last administered on 12/26/17at 05:32 ; Start 12/26/17 at 01:15; Stop 12/26/17 at 01:16; Status DC Levofloxacin (Levaquin) 500 mg 1X ONCE PO Last administered on 12/26/17at 01:45 ; Start 12/26/17 at 01:45; Stop 12/26/17 at 01:46; Status DC Levofloxacin (Levaquin) 500 mg DAILY06 PO Last administered on 12/29/17at 05:32 ; Start 12/27/17 at 06:00; Stop 12/29/17 at 12:04; Status DC Multi-Ingredient Ointment (Analgesic [place]) 1 barbara PRN QID PRN TP MUSCLE PAIN; Start 12/26/17 at 05:15 Al Hydroxide/Mg Hydroxide (Mylanta Plus Xs) 15 ml PRN AFTMEALHC PRN PO DYSPEPSIA; Start 12/26/17 at 05:15 Acetaminophen (Tylenol) 650 mg PRN Q6HRS PRN PO PAIN / TEMP Last administered on 01/07/18 04:56; Start 12/26/17 at 05:15 Atorvastatin Calcium (Lipitor) 20 mg QHS PO Last administered on 01/07/18 20: 31; Start 12/26/17 at 21:00 Estradiol (Estrace) 1 barbara QMTH VG ; Start 12/29/17 at 16:00; Stop 12/29/17 at 16 :06; Status DC Levothyroxine Sodium (Synthroid) 75 mcg DAILY07 PO Last administered on 04:56; Start 12/26/17 at 07:00 Oxycodone/ Acetaminophen (Percocet 10/325) 1 tab PRN Q6HRS PRN PO PAIN Last administered on 12/27/17 13:18; Start 12/26/17 at 05:15 Sorbitol (Sorbitol Solution) 30 ml PRN DAILY PRN PO CONSTIPATION; Start at 05:15 Amlodipine Besylate (Norvasc) 5 mg DAILY PO Last administered on 01/07/18 08: 17; Start 12/26/17 at 09:00 Artificial Tears (Artificial Tears) 1 drop TID OU Last administered on 14:19; Start 12/26/17 at 09:00; Stop 12/26/17 at 16:57; Status DC Vitamin D (Vitamin D3) 50,000 unit QSU PO Last administered on 01/04/18at 07:54 ; Start 12/28/17 at 16:00 Magnesium Hydroxide (Milk Of Magnesia) 2,400 mg PRN DAILY PRN PO CONSTIPATION; Start 12/26/17 at 05:15 Polyethylene Glycol (miraLAX) 17 gm DAILY PO Last administered on 01/07/18at 08: 18; Start 12/26/17 at 09:00 Sodium Chloride ([place]) 0.25 inch HS OD Last administered on 01/07/18 20:33; Start 12/26/17 at 21:00 Carbamazepine (TEGretol) 300 mg BID PO Last administered on 8/22/18at 20:32; Start 12/26/17 at 09:00 Benztropine Mesylate (Cogentin) 1 mg BID PO Last administered on 12/30/17at 09: 17; Start 12/26/17 at 09:00; Stop 12/30/17 at 18:50; Status DC Buspirone HCl (Buspar) 5 mg PRN Q8HRS PRN PO PSYCHOSIS Last administered on 03/05at 08:09; Start 12/26/17 at 05:30 [place] Carbonate 150 mg HS PO Last administered on 12/30/17at 20:34; Start 03/05 at 21:00; Stop 12/30/17 at 22:00; Status DC [place] Carbonate 300 mg BID PO Last administered on 12/30/17at 20:34; Start 03/05 at 09:00; Stop 12/30/17 at 22:00; Status DC Olanzapine (ZyPREXA) 10 mg DAILY PO Last administered on 01/02/18at 07:39; Start 12/26/17 at 09:00; Stop 01/02/18 at 17:12; Status DC Olanzapine (ZyPREXA) 20 mg HS PO Last administered on 12/29/17at 21:34; Start at 21:00; Stop 12/30/17 at 18:50; Status DC Trazodone HCl (Desyrel) 50 mg QHS PO Last administered on 01/07/18at 20:31; Start 12/26/17 at 21:00 Cephalexin HCl (Keflex) 250 mg STK-MED ONCE .ROUTE ; Start 12/26/17 at 05:29; Stop 12/26/17 at 05:30; Status DC Lactobacillus Rhamnosus (Culturelle) 1 cap BID PO Last administered on at 20:30; Start 12/26/17 at 09:00 Phenazopyridine HCl (Pyridium) 100 mg TID PO Last administered on 12/28/17at 07: 52; Start 12/26/17 at 14:00; Stop 12/28/17 at 13:00; Status DC Artificial Tears (Refresh Classic) 1 drop TID OU ; Start 12/26/17 at 17:00; Stop 12/26/17 at 17:00; Status DC Artificial Tears (Refresh Classic) 1 drop TID OU Last administered on at 20:32; Start 12/26/17 at 17:00 Risperidone (RisperDAL) 0.5 mg HS PO Last administered on 12/29/17at 21:33; Start 12/26/17 at 22:30; Stop 12/30/17 at 18:50; Status DC Trazodone HCl (Desyrel) 50 mg PRN QHS PRN PO INSOMNIA; Start 12/26/17 at 22:30 Estradiol (Estrace) 1 barbara QMTH@2100 VG Last administered on 01/05/18at 20:32; Start 12/29/17 at 21:00 Benztropine Mesylate (Cogentin) 0.5 mg BID PO Last administered on 01/07/18at 08 :17; Start 12/30/17 at 21:00; Stop 01/07/18 at 16:46; Status DC Olanzapine (ZyPREXA) 10 mg HS PO Last administered on 01/06/18at 19:46; Start at 21:00; Stop 01/07/18 at 16:46; Status DC Risperidone (RisperDAL) 1 mg HS PO Last administered on 01/05/18at 20:28; Start 12/30/17 at 21:00; Stop 01/06/18 at 17:55; Status DC [place] Carbonate 450 mg HS PO Last administered on 01/07/18 20:31; Start at 21:00 [place] Carbonate 300 mg DAILY PO Last administered on 01/07/18at 08:18; Start 12/31/17 at 09:00 Olanzapine (ZyPREXA) 5 mg DAILY PO Last administered on 01/04/18at 07:53; Start 01/03/18 at 09:00; Stop 01/04/18 at 18:24; Status DC Risperidone (RisperDAL) 1.5 mg HS PO Last administered on 01/07/18 20:31; Start 01/06/18 at 21:00 Benztropine Mesylate (Cogentin) 0.5 mg HS PO Last administered on 01/07/18at 20: 30; Start 01/07/18 at 21:00 Olanzapine (ZyPREXA) 5 mg QHS PO Last administered on 01/07/18at 20:35; Start at 21:00 Active Scripts Active Reported Zyprexa (Olanzapine) 20 Mg Tablet 20 Mg PO HS Zyprexa (Olanzapine) 10 Mg Tablet 10 Mg PO DAILY Trazodone Hcl 50 Mg Tablet 50 Mg PO HS Tegretol (Carbamazepine) 200 Mg Tablet 300 Mg PO BID Sorbitol (Sorbitol Solution) 1 Ml Solution 1 Ml MC Norvasc (Amlodipine Besylate) 5 Mg Tablet 5 Mg PO DAILY [place]-128 (Sodium Chloride) 15 Ml Drops 1 Drop OD HS Miralax (Polyethylene Glycol 3350) 17 Gm Powd.pack 17 Gm PO DAILY Milk Of Magnesia (Magnesium Hydroxide) 2,400 Mg/10 Ml Oral.susp 2,400 Mg PO PRN DAILY PRN [place] Carbonate 300 Mg Tablet 300 Mg PO BID [place] Carbonate 150 Mg Capsule 150 Mg PO HS Lipitor (Atorvastatin Calcium) 20 Mg Tablet 20 Mg PO QHS Levothyroxine Sodium 75 Mcg Tablet 75 Mcg PO DAILYAC Estrace (Estradiol) 42.5 Gm Cream.appl 1 Gm VG HS QMON/ Insert at bedtime on Friday and Vitamin D2 (Ergocalciferol (Vitamin D2)) 50,000 Unit Capsule 50,000 Unit PO WEEKLY Endocet 10-325 Mg Tablet (Oxycodone Hcl/Acetaminophen) 1 Each Tablet 1 Tab PO PRN Q6HRS PRN [durezol] Buspirone Hcl 5 Mg Tablet 5 Mg PO PRN Q8HRS PRN Benztropine Mesylate 1 Mg Tablet 1 Mg PO BID Artificial Tears Eye Drops (Dextran 70/Hypromellose) 15 Ml Drops 1 Drop EACHEYE TID Tylenol (Acetaminophen) 325 Mg Tablet 650 Mg PO PRN Q6HRS PRN I have reviewed the current psychotropics carefully including drug interactions. Risk benefit ratio favors no change other than as noted in my dictated progress note. 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
--- NOTE | 2018-01-07 23:18 | PN ---
DATE: 01/06/2018 This late entry, 01/06/2018, covers elements not covered in my initial note. SUBJECTIVE: I met with the patient in the evening of 01/06/2018. The patient slept 8 hours previous evening. Per nursing report, she remains somewhat hypomanic, but much improved. Her verbal presentation is somewhat abrupt and gruff with some pressure of speech, but much improved than before. The patient minimizes this as I processed this with her according to nursing observation. REVIEW OF SYSTEMS: No CV, , pulmonary, eye, ENT system symptoms on review. MENTAL STATUS EXAM: Oriented reasonably to herself and situation. Abstraction fair. Computation, able to do 1 step and serial 7's, remember 2 of 3 objects at 3 minutes. Speech coherent, a little pressured. Abstraction fair, computation impaired, language function intact, attention span short. Mood and affect less labile, less grandiose. LABORATORY DATA: Reviewed. IMPRESSION: Bipolar 1 disorder, manic with psychotic features, in partial remission; anxiety disorder, unspecified; impulse control disorder, unspecified. PLAN: Continue psychotropics from initial note. Risperdal was increased. We will consider reducing and stopping the Zyprexa in due course to avoid using 2 typical antipsychotics. Rest unchanged per initial note. KIERSTEN WATT MD DR: SANCHEZ/fredrick JOB#: [id number] / [id number]
[2018-01-08 05:58] VITALS: BP 113/51
[2018-01-08] MEDS: LEVOTHYROXINE 75 MCG TABLET PO SCH (06:04)
[2018-01-08] MEDS: amLODIPine BESYLATE 5 MG TABLET PO SCH (08:23)
[2018-01-08] MEDS: POLYETHYLENE GLYCOL 3350 17 GM PACKET. PO SCH (08:23)
[2018-01-08] MEDS: POLYVINYL ALCOHOL/POVIDONE/PF OPHTH SOLUTION DROPERETTE. OU SCH ×3 (08:23→20:45)
[2018-01-08] MEDS: carBAMazepine 200 MG TABLET PO SCH ×2 (08:23→20:46)
[2018-01-08] MEDS: LITHIUM CARBONATE 300 MG TABLET PO SCH ×2 (08:23→20:46)
[2018-01-08] MEDS: LACTOBACILLUS RHAMNOSUS GG 1 CAPSULE. PO SCH ×2 (08:24→20:46)
[2018-01-08 15:59] VITALS: BP 130/68
--- NOTE | 2018-01-08 20:37 | PDOC ---
Exam Note: Julian Note: Please also refer to the separate dictated note~for this date of service dictated separately.~Patient seen individually. Discussed the patient with Nursing staff reviewed the chart.~Reviewed interim history and current functioning. Reviewed vital signs,~Labs/ Radiology~and current medications noted below. Continue current treatment with the changes noted in the dictated addendum note Assessment: Vital Signs: Vital Signs Date Time Temp Pulse Resp B/P (MAP) Pulse Ox O2 Delivery O2 Flow Rate FiO2 01/08/18 15:59 97.6 76 17 130/68 (88) 96 Room Air I&O Intake and Output 01/08/18 07:00 Intake Total 1920 ml Balance 1920 ml Intake Oral 1920 ml # Voids 1 Current Medications: Meds: Current Medications Lactated Ringer's 1,000 ml @ 1,000 mls/hr Q1H IV Last administered on at 23:19; Start 12/25/17 at 23:30; Stop 12/26/17 at 00:29; Status DC Cephalexin HCl (Keflex) 500 mg 1X ONCE PO Last administered on 12/26/17at 05:32 ; Start 12/26/17 at 01:15; Stop 12/26/17 at 01:16; Status DC Levofloxacin (Levaquin) 500 mg 1X ONCE PO Last administered on 12/26/17at 01:45 ; Start 12/26/17 at 01:45; Stop 12/26/17 at 01:46; Status DC Levofloxacin (Levaquin) 500 mg DAILY06 PO Last administered on 12/29/17at 05:32 ; Start 12/27/17 at 06:00; Stop 12/29/17 at 12:04; Status DC Multi-Ingredient Ointment (Analgesic [place]) 1 barbara PRN QID PRN TP MUSCLE PAIN; Start 12/26/17 at 05:15 Al Hydroxide/Mg Hydroxide (Mylanta Plus Xs) 15 ml PRN AFTMEALHC PRN PO DYSPEPSIA; Start 12/26/17 at 05:15 Acetaminophen (Tylenol) 650 mg PRN Q6HRS PRN PO PAIN / TEMP Last administered on 01/07/18at 04:56; Start 12/26/17 at 05:15 Atorvastatin Calcium (Lipitor) 20 mg QHS PO Last administered on 01/07/18at 20: 31; Start 12/26/17 at 21:00 Estradiol (Estrace) 1 barbara QMTH VG ; Start 12/29/17 at 16:00; Stop 12/29/17 at 16 :06; Status DC Levothyroxine Sodium (Synthroid) 75 mcg DAILY07 PO Last administered on at 06:04; Start 12/26/17 at 07:00 Oxycodone/ Acetaminophen (Percocet 10/325) 1 tab PRN Q6HRS PRN PO PAIN Last administered on 12/27/17at 13:18; Start 12/26/17 at 05:15 Sorbitol (Sorbitol Solution) 30 ml PRN DAILY PRN PO CONSTIPATION; Start at 05:15 Amlodipine Besylate (Norvasc) 5 mg DAILY PO Last administered on 01/08/18at 08: 23; Start 12/26/17 at 09:00 Artificial Tears (Artificial Tears) 1 drop TID OU Last administered on at 14:19; Start 12/26/17 at 09:00; Stop 12/26/17 at 16:57; Status DC Vitamin D (Vitamin D3) 50,000 unit QSU PO Last administered on 01/04/18at 07:54 ; Start 12/28/17 at 16:00 Magnesium Hydroxide (Milk Of Magnesia) 2,400 mg PRN DAILY PRN PO CONSTIPATION; Start 12/26/17 at 05:15 Polyethylene Glycol (miraLAX) 17 gm DAILY PO Last administered on 01/08/18at 08: 23; Start 12/26/17 at 09:00 Sodium Chloride ([place]mer) 0.25 inch HS OD Last administered on 01/07/18at 20:33; Start 12/26/17 at 21:00 Carbamazepine (TEGretol) 300 mg BID PO Last administered on 01/08/18at 08:23; Start 12/26/17 at 09:00 Benztropine Mesylate (Cogentin) 1 mg BID PO Last administered on 12/30/17at 09: 17; Start 12/26/17 at 09:00; Stop 12/30/17 at 18:50; Status DC Buspirone HCl (Buspar) 5 mg PRN Q8HRS PRN PO PSYCHOSIS Last administered on 03/05at 08:09; Start 12/26/17 at 05:30; Stop 01/08/18 at 10:15; Status DC [place] Carbonate 150 mg HS PO Last administered on 12/30/17at 20:34; Start 03/05 at 21:00; Stop 12/30/17 at 22:00; Status DC [place] Carbonate 300 mg BID PO Last administered on 12/30/17at 20:34; Start 03/05 at 09:00; Stop 12/30/17 at 22:00; Status DC Olanzapine (ZyPREXA) 10 mg DAILY PO Last administered on 01/02/18at 07:39; Start 12/26/17 at 09:00; Stop 01/02/18 at 17:12; Status DC Olanzapine (ZyPREXA) 20 mg HS PO Last administered on 12/29/17at 21:34; Start at 21:00; Stop 12/30/17 at 18:50; Status DC Trazodone HCl (Desyrel) 50 mg QHS PO Last administered on 01/07/18at 20:31; Start 12/26/17 at 21:00 Cephalexin HCl (Keflex) 250 mg STK-MED ONCE .ROUTE ; Start 12/26/17 at 05:29; Stop 12/26/17 at 05:30; Status DC Lactobacillus Rhamnosus (Culturelle) 1 cap BID PO Last administered on at 08:24; Start 12/26/17 at 09:00 Phenazopyridine HCl (Pyridium) 100 mg TID PO Last administered on 12/28/17at 07: 52; Start 12/26/17 at 14:00; Stop 12/28/17 at 13:00; Status DC Artificial Tears (Refresh Classic) 1 drop TID OU ; Start 12/26/17 at 17:00; Stop 12/26/17 at 17:00; Status DC Artificial Tears (Refresh Classic) 1 drop TID OU Last administered on at 14:51; Start 12/26/17 at 17:00 Risperidone (RisperDAL) 0.5 mg HS PO Last administered on 12/29/17at 21:33; Start 12/26/17 at 22:30; Stop 12/30/17 at 18:50; Status DC Trazodone HCl (Desyrel) 50 mg PRN QHS PRN PO INSOMNIA; Start 12/26/17 at 22:30 Estradiol (Estrace) 1 barbara QMTH@2100 VG Last administered on 01/05/18at 20:32; Start 12/29/17 at 21:00 Benztropine Mesylate (Cogentin) 0.5 mg BID PO Last administered on 01/07/18 08 :17; Start 12/30/17 at 21:00; Stop 01/07/18 at 16:46; Status DC Olanzapine (ZyPREXA) 10 mg HS PO Last administered on 01/06/18at 19:46; Start at 21:00; Stop 01/07/18 at 16:46; Status DC Risperidone (RisperDAL) 1 mg HS PO Last administered on 01/05/18at 20:28; Start 12/30/17 at 21:00; Stop 01/06/18 at 17:55; Status DC [place] Carbonate 450 mg HS PO Last administered on 01/07/18 20:31; Start at 21:00 [place] Carbonate 300 mg DAILY PO Last administered on 01/08/18at 08:23; Start 12/31/17 at 09:00 Olanzapine (ZyPREXA) 5 mg DAILY PO Last administered on 01/04/18at 07:53; Start 01/03/18 at 09:00; Stop 01/04/18 at 18:24; Status DC Risperidone (RisperDAL) 1.5 mg HS PO Last administered on 01/07/18 20:31; Start 01/06/18 at 21:00 Benztropine Mesylate (Cogentin) 0.5 mg HS PO Last administered on 01/07/18at 20: 30; Start 01/07/18 at 21:00 Olanzapine (ZyPREXA) 5 mg QHS PO Last administered on 01/07/18at 20:35; Start at 21:00 Active Scripts Active Reported Zyprexa (Olanzapine) 20 Mg Tablet 20 Mg PO HS Zyprexa (Olanzapine) 10 Mg Tablet 10 Mg PO DAILY Trazodone Hcl 50 Mg Tablet 50 Mg PO HS Tegretol (Carbamazepine) 200 Mg Tablet 300 Mg PO BID Sorbitol (Sorbitol Solution) 1 Ml Solution 1 Ml MC Norvasc (Amlodipine Besylate) 5 Mg Tablet 5 Mg PO DAILY [place]-128 (Sodium Chloride) 15 Ml Drops 1 Drop OD HS Miralax (Polyethylene Glycol 3350) 17 Gm Powd.pack 17 Gm PO DAILY Milk Of Magnesia (Magnesium Hydroxide) 2,400 Mg/10 Ml Oral.susp 2,400 Mg PO PRN DAILY PRN [place] Carbonate 300 Mg Tablet 300 Mg PO BID [place] Carbonate 150 Mg Capsule 150 Mg PO HS Lipitor (Atorvastatin Calcium) 20 Mg Tablet 20 Mg PO QHS Levothyroxine Sodium 75 Mcg Tablet 75 Mcg PO DAILYAC Estrace (Estradiol) 42.5 Gm Cream.appl 1 Gm VG HS QMON/ Insert at bedtime on Friday and Vitamin D2 (Ergocalciferol (Vitamin D2)) 50,000 Unit Capsule 50,000 Unit PO WEEKLY Endocet 10-325 Mg Tablet (Oxycodone Hcl/Acetaminophen) 1 Each Tablet 1 Tab PO PRN Q6HRS PRN [durezol] Buspirone Hcl 5 Mg Tablet 5 Mg PO PRN Q8HRS PRN Benztropine Mesylate 1 Mg Tablet 1 Mg PO BID Artificial Tears Eye Drops (Dextran 70/Hypromellose) 15 Ml Drops 1 Drop EACHEYE TID Tylenol (Acetaminophen) 325 Mg Tablet 650 Mg PO PRN Q6HRS PRN I have reviewed the current psychotropics carefully including drug interactions. Risk benefit ratio favors no change other than as noted in my dictated progress note. 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
[2018-01-08] MEDS: SODIUM CHLORIDE 5% OPHTH OINTMENT 3.5GM TUBE. OD SCH (20:45)
[2018-01-08] MEDS: ATORVASTATIN CALCIUM 20 MG TABLET PO SCH (20:46)
[2018-01-08] MEDS: risperiDONE 1 MG TABLET. PO SCH (20:46)
[2018-01-08] MEDS: traZODone 50 MG TABLET. PO SCH (20:46)
[2018-01-08] MEDS: BENZTROPINE MESYLATE 0.5 MG TABLET PO SCH (20:46)
[2018-01-08] MEDS: OLANZapine 5 MG TABLET PO SCH (20:47)
[2018-01-08] MEDS: ESTRADIOL 0.01% VAGINAL CREAM 42.5GM TUBE. VG SCH (20:47)
[2018-01-09 05:56] VITALS: BP 113/58
[2018-01-09] MEDS: LEVOTHYROXINE 75 MCG TABLET PO SCH (06:27)
[2018-01-09] MEDS: POLYETHYLENE GLYCOL 3350 17 GM PACKET. PO SCH (08:45)
[2018-01-09] MEDS: amLODIPine BESYLATE 5 MG TABLET PO SCH (08:46)
[2018-01-09] MEDS: POLYVINYL ALCOHOL/POVIDONE/PF OPHTH SOLUTION DROPERETTE. OU SCH ×3 (08:46→20:57)
[2018-01-09] MEDS: LITHIUM CARBONATE 300 MG TABLET PO SCH ×2 (08:46→20:58)
[2018-01-09] MEDS: LACTOBACILLUS RHAMNOSUS GG 1 CAPSULE. PO SCH ×2 (08:47→20:58)
[2018-01-09] MEDS: carBAMazepine 200 MG TABLET PO SCH ×2 (08:47→21:01)
[2018-01-09 16:38] VITALS: BP 126/70
[2018-01-09] MEDS: SODIUM CHLORIDE 5% OPHTH OINTMENT 3.5GM TUBE. OD SCH (20:56)
[2018-01-09] MEDS: BENZTROPINE MESYLATE 0.5 MG TABLET PO SCH (20:58)
[2018-01-09] MEDS: ATORVASTATIN CALCIUM 20 MG TABLET PO SCH (20:59)
[2018-01-09] MEDS: risperiDONE 1 MG TABLET. PO SCH (20:59)
[2018-01-09] MEDS: traZODone 50 MG TABLET. PO SCH (20:59)
[2018-01-09] MEDS: OLANZapine 5 MG TABLET PO SCH (21:01)
--- NOTE | 2018-01-10 00:31 | PN ---
DATE: 01/07/2018 PSYCHIATRIC PROGRESS NOTE This late entry 01/07/2018 covers elements not covered in my initial note. SUBJECTIVE: I met with the patient in the evening. The patient remains somewhat gruff in her verbalizations to nursing staff, slept 8 hours. REVIEW OF SYSTEMS: No CV, , pulmonary, eye, ENT system symptoms on review. MENTAL STATUS EXAM: Reasonably oriented. Speech coherent other than above. Abstraction fair, computation impaired. Some pressure of speech, but less than before. No active suicidal or homicidal ideation. Intellect average. Insight good. Judgment intact. IMPRESSION: Bipolar 1 disorder, mixed with psychotic features, in partial remission. Rest unchanged. PLAN: Reduce Cogentin from 0.5 b.i.d. to 0.5 mg at bedtime. Scheduled Zyprexa from 10 mg at bedtime to 5 mg at bedtime. Rest unchanged per initial note. MAN Rox WATT MD DR: SANCHEZ/fredrick JOB#: [id number] / [id number]
--- NOTE | 2018-01-10 00:57 | PN ---
DATE: 01/08/2018 This late entry 01/08/2018 covers elements not covered in my initial note. SUBJECTIVE: I met with the patient in the evening, staffed at a treatment team meeting with entire team in the morning; reviewed the patient's history, diagnosis, discharge plans. The patient slept 7-3/4 hours. Appetite is fair. She is more pleasant, still somewhat gruff in her verbalization, but redirectable, not abrasive. REVIEW OF SYSTEMS: No CV, , pulmonary, eye, ENT system symptoms on review. MENTAL STATUS EXAMINATION: Reasonably oriented. Speech is coherent, at times a little pressured, better than before. Abstraction fair, computation impaired, language function intact, attention span short. Mood and affect still somewhat grandiose, but improved. No suicidal or homicidal ideation. LABORATORY DATA: Reviewed. IMPRESSION: Bipolar 1 disorder, mixed with psychotic features; schizoaffective disorder, bipolar type, mixed with psychotic features, in partial remission; anxiety disorder, unspecified; impulse control disorder, unspecified. PLAN: Continue psychotropics from initial note. We will go ahead and stop the BuSpar p.r.n. since it is certainly not effective p.r.n. Maintain the lithium, Tegretol, Cogentin, trazodone. Zyprexa has been tapered and she is on Risperdal 1.5 mg at bedtime. Adjust further as clinically indicated. MAN Rox WATT MD DR: SANCHEZ/fredrick JOB#: [id number] / [id number]
[2018-01-10 06:29] VITALS: BP 129/62
[2018-01-10] MEDS: LEVOTHYROXINE 75 MCG TABLET PO SCH (09:06)
[2018-01-10] MEDS: LITHIUM CARBONATE 300 MG TABLET PO SCH ×2 (09:06→19:44)
[2018-01-10] MEDS: POLYETHYLENE GLYCOL 3350 17 GM PACKET. PO SCH (09:06)
[2018-01-10] MEDS: POLYVINYL ALCOHOL/POVIDONE/PF OPHTH SOLUTION DROPERETTE. OU SCH ×3 (09:06→19:45)
[2018-01-10] MEDS: LACTOBACILLUS RHAMNOSUS GG 1 CAPSULE. PO SCH ×2 (09:06→19:43)
[2018-01-10] MEDS: carBAMazepine 200 MG TABLET PO SCH ×2 (09:13→19:44)
[2018-01-10] MEDS: amLODIPine BESYLATE 5 MG TABLET PO SCH (09:13)
[2018-01-10 16:14] VITALS: BP 134/81
[2018-01-10] MEDS: risperiDONE 1 MG TABLET. PO SCH (19:43)
[2018-01-10] MEDS: OLANZapine 5 MG TABLET PO SCH (19:43)
[2018-01-10] MEDS: ATORVASTATIN CALCIUM 20 MG TABLET PO SCH (19:43)
[2018-01-10] MEDS: traZODone 50 MG TABLET. PO SCH (19:44)
[2018-01-10] MEDS: BENZTROPINE MESYLATE 0.5 MG TABLET PO SCH (19:44)
[2018-01-10] MEDS: SODIUM CHLORIDE 5% OPHTH OINTMENT 3.5GM TUBE. OD SCH (19:45)
--- NOTE | 2018-01-10 22:27 | PDOC ---
Exam Note: Julian Note: Please also refer to the separate dictated note~for this date of service dictated separately.~Patient seen individually. Discussed the patient with Nursing staff reviewed the chart.~Reviewed interim history and current functioning. Reviewed vital signs,~Labs/ Radiology~and current medications noted below. Continue current treatment with the changes noted in the dictated addendum note Assessment: Vital Signs: Vital Signs Date Time Temp Pulse Resp B/P (MAP) Pulse Ox O2 Delivery O2 Flow Rate FiO2 01/10/18 16:14 98.8 69 16 134/81 (98) 92 01/10/18 06:29 Room Air I&O Intake and Output 01/10/18 07:00 Intake Total 1580 ml Balance 1580 ml Intake Oral 1580 ml Current Medications: Meds: Current Medications Lactated Ringer's 1,000 ml @ 1,000 mls/hr Q1H IV Last administered on at 23:19; Start 12/25/17 at 23:30; Stop 12/26/17 at 00:29; Status DC Cephalexin HCl (Keflex) 500 mg 1X ONCE PO Last administered on 12/26/17at 05:32 ; Start 12/26/17 at 01:15; Stop 12/26/17 at 01:16; Status DC Levofloxacin (Levaquin) 500 mg 1X ONCE PO Last administered on 12/26/17at 01:45 ; Start 12/26/17 at 01:45; Stop 12/26/17 at 01:46; Status DC Levofloxacin (Levaquin) 500 mg DAILY06 PO Last administered on 12/29/17at 05:32 ; Start 12/27/17 at 06:00; Stop 12/29/17 at 12:04; Status DC Multi-Ingredient Ointment (Analgesic [place]) 1 barbara PRN QID PRN TP MUSCLE PAIN; Start 12/26/17 at 05:15 Al Hydroxide/Mg Hydroxide (Mylanta Plus Xs) 15 ml PRN AFTMEALHC PRN PO DYSPEPSIA; Start 12/26/17 at 05:15 Acetaminophen (Tylenol) 650 mg PRN Q6HRS PRN PO PAIN / TEMP Last administered on 01/07/18at 04:56; Start 12/26/17 at 05:15 Atorvastatin Calcium (Lipitor) 20 mg QHS PO Last administered on 8/25/18at 19: 43; Start 12/26/17 at 21:00 Estradiol (Estrace) 1 barbara QMTH VG ; Start 12/29/17 at 16:00; Stop 12/29/17 at 16 :06; Status DC Levothyroxine Sodium (Synthroid) 75 mcg DAILY07 PO Last administered on 09:06; Start 12/26/17 at 07:00 Oxycodone/ Acetaminophen (Percocet 10/325) 1 tab PRN Q6HRS PRN PO PAIN Last administered on 12/27/17 13:18; Start 12/26/17 at 05:15 Sorbitol (Sorbitol Solution) 30 ml PRN DAILY PRN PO CONSTIPATION; Start at 05:15 Amlodipine Besylate (Norvasc) 5 mg DAILY PO Last administered on 01/10/18 09: 13; Start 12/26/17 at 09:00 Artificial Tears (Artificial Tears) 1 drop TID OU Last administered on 14:19; Start 12/26/17 at 09:00; Stop 12/26/17 at 16:57; Status DC Vitamin D (Vitamin D3) 50,000 unit QSU PO Last administered on 01/04/18at 07:54 ; Start 12/28/17 at 16:00 Magnesium Hydroxide (Milk Of Magnesia) 2,400 mg PRN DAILY PRN PO CONSTIPATION; Start 12/26/17 at 05:15 Polyethylene Glycol (miraLAX) 17 gm DAILY PO Last administered on 01/10/18 09: 06; Start 12/26/17 at 09:00 Sodium Chloride ([place]) 0.25 inch HS OD Last administered on 01/10/18 19:45; Start 12/26/17 at 21:00 Carbamazepine (TEGretol) 300 mg BID PO Last administered on 01/10/18 19:44; Start 12/26/17 at 09:00 Benztropine Mesylate (Cogentin) 1 mg BID PO Last administered on 12/30/17at 09: 17; Start 12/26/17 at 09:00; Stop 12/30/17 at 18:50; Status DC Buspirone HCl (Buspar) 5 mg PRN Q8HRS PRN PO PSYCHOSIS Last administered on 03/05at 08:09; Start 12/26/17 at 05:30; Stop 01/08/18 at 10:15; Status DC [place] Carbonate 150 mg HS PO Last administered on 12/30/17 20:34; Start 03/05 at 21:00; Stop 12/30/17 at 22:00; Status DC [place] Carbonate 300 mg BID PO Last administered on 12/30/17at 20:34; Start 03/05 at 09:00; Stop 12/30/17 at 22:00; Status DC Olanzapine (ZyPREXA) 10 mg DAILY PO Last administered on 01/02/18at 07:39; Start 12/26/17 at 09:00; Stop 01/02/18 at 17:12; Status DC Olanzapine (ZyPREXA) 20 mg HS PO Last administered on 12/29/17at 21:34; Start at 21:00; Stop 12/30/17 at 18:50; Status DC Trazodone HCl (Desyrel) 50 mg QHS PO Last administered on 01/10/18 19:44; Start 12/26/17 at 21:00 Cephalexin HCl (Keflex) 250 mg STK-MED ONCE .ROUTE ; Start 12/26/17 at 05:29; Stop 12/26/17 at 05:30; Status DC Lactobacillus Rhamnosus (Culturelle) 1 cap BID PO Last administered on 19:43; Start 12/26/17 at 09:00 Phenazopyridine HCl (Pyridium) 100 mg TID PO Last administered on 12/28/17at 07: 52; Start 12/26/17 at 14:00; Stop 12/28/17 at 13:00; Status DC Artificial Tears (Refresh Classic) 1 drop TID OU ; Start 12/26/17 at 17:00; Stop 12/26/17 at 17:00; Status DC Artificial Tears (Refresh Classic) 1 drop TID OU Last administered on 19:45; Start 12/26/17 at 17:00 Risperidone (RisperDAL) 0.5 mg HS PO Last administered on 12/29/17 21:33; Start 12/26/17 at 22:30; Stop 12/30/17 at 18:50; Status DC Trazodone HCl (Desyrel) 50 mg PRN QHS PRN PO INSOMNIA; Start 12/26/17 at 22:30 Estradiol (Estrace) 1 barbara QMTH@2100 VG Last administered on 01/08/18at 20:47; Start 12/29/17 at 21:00 Benztropine Mesylate (Cogentin) 0.5 mg BID PO Last administered on 01/07/18 08 :17; Start 12/30/17 at 21:00; Stop 01/07/18 at 16:46; Status DC Olanzapine (ZyPREXA) 10 mg HS PO Last administered on 01/06/18 19:46; Start at 21:00; Stop 01/07/18 at 16:46; Status DC Risperidone (RisperDAL) 1 mg HS PO Last administered on 01/05/18at 20:28; Start 12/30/17 at 21:00; Stop 01/06/18 at 17:55; Status DC [place] Carbonate 450 mg HS PO Last administered on 01/10/18 19:44; Start at 21:00 [place] Carbonate 300 mg DAILY PO Last administered on 01/10/18 09:06; Start 12/31/17 at 09:00 Olanzapine (ZyPREXA) 5 mg DAILY PO Last administered on 01/04/18at 07:53; Start 01/03/18 at 09:00; Stop 01/04/18 at 18:24; Status DC Risperidone (RisperDAL) 1.5 mg HS PO Last administered on 01/10/18 19:43; Start 01/06/18 at 21:00 Benztropine Mesylate (Cogentin) 0.5 mg HS PO Last administered on 01/10/18 19: 44; Start 01/07/18 at 21:00 Olanzapine (ZyPREXA) 5 mg QHS PO Last administered on 01/10/18 19:43; Start at 21:00 Active Scripts Active Reported Zyprexa (Olanzapine) 20 Mg Tablet 20 Mg PO HS Zyprexa (Olanzapine) 10 Mg Tablet 10 Mg PO DAILY Trazodone Hcl 50 Mg Tablet 50 Mg PO HS Tegretol (Carbamazepine) 200 Mg Tablet 300 Mg PO BID Sorbitol (Sorbitol Solution) 1 Ml Solution 1 Ml MC Norvasc (Amlodipine Besylate) 5 Mg Tablet 5 Mg PO DAILY [place]-128 (Sodium Chloride) 15 Ml Drops 1 Drop OD HS Miralax (Polyethylene Glycol 3350) 17 Gm Powd.pack 17 Gm PO DAILY Milk Of Magnesia (Magnesium Hydroxide) 2,400 Mg/10 Ml Oral.susp 2,400 Mg PO PRN DAILY PRN [place] Carbonate 300 Mg Tablet 300 Mg PO BID [place] Carbonate 150 Mg Capsule 150 Mg PO HS Lipitor (Atorvastatin Calcium) 20 Mg Tablet 20 Mg PO QHS Levothyroxine Sodium 75 Mcg Tablet 75 Mcg PO DAILYAC Estrace (Estradiol) 42.5 Gm Cream.appl 1 Gm VG HS QMON/ Insert at bedtime on Friday and Vitamin D2 (Ergocalciferol (Vitamin D2)) 50,000 Unit Capsule 50,000 Unit PO WEEKLY Endocet 10-325 Mg Tablet (Oxycodone Hcl/Acetaminophen) 1 Each Tablet 1 Tab PO PRN Q6HRS PRN [durezol] Buspirone Hcl 5 Mg Tablet 5 Mg PO PRN Q8HRS PRN Benztropine Mesylate 1 Mg Tablet 1 Mg PO BID Artificial Tears Eye Drops (Dextran 70/Hypromellose) 15 Ml Drops 1 Drop EACHEYE TID Tylenol (Acetaminophen) 325 Mg Tablet 650 Mg PO PRN Q6HRS PRN I have reviewed the current psychotropics carefully including drug interactions. Risk benefit ratio favors no change other than as noted in my dictated progress note. 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
[2018-01-11] MEDS: LEVOTHYROXINE 75 MCG TABLET PO SCH (06:02)
[2018-01-11 06:15] VITALS: BP 144/78
[2018-01-11] MEDS: POLYVINYL ALCOHOL/POVIDONE/PF OPHTH SOLUTION DROPERETTE. OU SCH ×3 (08:20→19:21)
[2018-01-11] MEDS: POLYETHYLENE GLYCOL 3350 17 GM PACKET. PO SCH (08:22)
[2018-01-11] MEDS: LACTOBACILLUS RHAMNOSUS GG 1 CAPSULE. PO SCH ×2 (08:22→19:22)
[2018-01-11] MEDS: carBAMazepine 200 MG TABLET PO SCH ×2 (08:22→19:22)
[2018-01-11] MEDS: LITHIUM CARBONATE 300 MG TABLET PO SCH ×2 (08:22→19:22)
[2018-01-11] MEDS: amLODIPine BESYLATE 5 MG TABLET PO SCH (08:23)
[2018-01-11] MEDS: CHOLECALCIFEROL (VITAMIN D3) 50,000 UNIT CAPSULE PO SCH (08:23)
[2018-01-11 16:38] VITALS: BP 130/70
[2018-01-11] MEDS: traZODone 50 MG TABLET. PO SCH (19:21)
[2018-01-11] MEDS: OLANZapine 5 MG TABLET PO SCH (19:21)
[2018-01-11] MEDS: ATORVASTATIN CALCIUM 20 MG TABLET PO SCH (19:21)
[2018-01-11] MEDS: BENZTROPINE MESYLATE 0.5 MG TABLET PO SCH (19:22)
[2018-01-11] MEDS: risperiDONE 1 MG TABLET. PO SCH (19:23)
[2018-01-11] MEDS: SODIUM CHLORIDE 5% OPHTH OINTMENT 3.5GM TUBE. OD SCH (19:24)
--- NOTE | 2018-01-11 20:17 | PDOC ---
Exam Note: Julian Note: Late entry for date of service December.Please also refer to the separate dictated note~for this date of service dictated separately.~Patient seen individually. Discussed the patient with Nursing staff reviewed the chart.~ Reviewed interim history and current functioning. Reviewed vital signs,~Labs/ Radiology~and current medications noted below. Continue current treatment with the changes noted in the dictated addendum note Assessment: Vital Signs: VS - Last 72 Hours, by Label Date Time Temp Pulse Resp B/P (MAP) Pulse Ox O2 Delivery O2 Flow Rate FiO2 01/11/18 16:38 98.9 71 18 130/70 (90) 98 01/11/18 08:23 60 144/78 01/11/18 06:15 98.2 78 16 144/78 (100) 100 Room Air 01/10/18 16:14 98.8 69 16 134/81 (98) 92 01/10/18 09:13 78 129/62 01/10/18 09:12 78 01/10/18 06:29 97.3 55 16 129/62 (84) 96 Room Air 01/09/18 16:38 98.0 73 20 126/70 (88) 96 Room Air 01/09/18 08:46 60 113/58 01/09/18 05:56 97.8 60 18 113/58 (76) 92 Vital Signs Date Time Temp Pulse Resp B/P (MAP) Pulse Ox O2 Delivery O2 Flow Rate FiO2 01/11/18 16:38 98.9 71 18 130/70 (90) 98 01/11/18 06:15 Room Air I&O Intake and Output 01/11/18 07:00 Intake Total 1320 ml Balance 1320 ml Intake Oral 1320 ml # Bowel Movements 1 Current Medications: Meds: Current Medications Lactated Ringer's 1,000 ml @ 1,000 mls/hr Q1H IV Last administered on at 23:19; Start 12/25/17 at 23:30; Stop 12/26/17 at 00:29; Status DC Cephalexin HCl (Keflex) 500 mg 1X ONCE PO Last administered on 12/26/17at 05:32 ; Start 12/26/17 at 01:15; Stop 12/26/17 at 01:16; Status DC Levofloxacin (Levaquin) 500 mg 1X ONCE PO Last administered on 12/26/17at 01:45 ; Start 12/26/17 at 01:45; Stop 12/26/17 at 01:46; Status DC Levofloxacin (Levaquin) 500 mg DAILY06 PO Last administered on 12/29/17at 05:32 ; Start 12/27/17 at 06:00; Stop 12/29/17 at 12:04; Status DC Multi-Ingredient Ointment (Analgesic [place]) 1 barbara PRN QID PRN TP MUSCLE PAIN; Start 12/26/17 at 05:15 Al Hydroxide/Mg Hydroxide (Mylanta Plus Xs) 15 ml PRN AFTMEALHC PRN PO DYSPEPSIA; Start 12/26/17 at 05:15 Acetaminophen (Tylenol) 650 mg PRN Q6HRS PRN PO PAIN / TEMP Last administered on 01/07/18at 04:56; Start 12/26/17 at 05:15 Atorvastatin Calcium (Lipitor) 20 mg QHS PO Last administered on 01/11/18at 19: 21; Start 12/26/17 at 21:00 Estradiol (Estrace) 1 barbara QMTH VG ; Start 12/29/17 at 16:00; Stop 12/29/17 at 16 :06; Status DC Levothyroxine Sodium (Synthroid) 75 mcg DAILY07 PO Last administered on at 06:02; Start 12/26/17 at 07:00 Oxycodone/ Acetaminophen (Percocet 10/325) 1 tab PRN Q6HRS PRN PO PAIN Last administered on 12/27/17at 13:18; Start 12/26/17 at 05:15 Sorbitol (Sorbitol Solution) 30 ml PRN DAILY PRN PO CONSTIPATION; Start at 05:15 Amlodipine Besylate (Norvasc) 5 mg DAILY PO Last administered on 01/11/18at 08: 23; Start 12/26/17 at 09:00 Artificial Tears (Artificial Tears) 1 drop TID OU Last administered on at 14:19; Start 12/26/17 at 09:00; Stop 12/26/17 at 16:57; Status DC Vitamin D (Vitamin D3) 50,000 unit QSU PO Last administered on 01/11/18at 08:23 ; Start 12/28/17 at 16:00 Magnesium Hydroxide (Milk Of Magnesia) 2,400 mg PRN DAILY PRN PO CONSTIPATION; Start 12/26/17 at 05:15 Polyethylene Glycol (miraLAX) 17 gm DAILY PO Last administered on 01/11/18at 08: 22; Start 12/26/17 at 09:00 Sodium Chloride (Elmer) 0.25 inch HS OD Last administered on 01/11/18at 19:24; Start 12/26/17 at 21:00 Carbamazepine (TEGretol) 300 mg BID PO Last administered on 01/11/18 19:22; Start 12/26/17 at 09:00 Benztropine Mesylate (Cogentin) 1 mg BID PO Last administered on 12/30/17at 09: 17; Start 12/26/17 at 09:00; Stop 12/30/17 at 18:50; Status DC Buspirone HCl (Buspar) 5 mg PRN Q8HRS PRN PO PSYCHOSIS Last administered on 03/05at 08:09; Start 12/26/17 at 05:30; Stop 01/08/18 at 10:15; Status DC [place] Carbonate 150 mg HS PO Last administered on 12/30/17at 20:34; Start 03/05 at 21:00; Stop 12/30/17 at 22:00; Status DC [place] Carbonate 300 mg BID PO Last administered on 12/30/17at 20:34; Start 03/05 at 09:00; Stop 12/30/17 at 22:00; Status DC Olanzapine (ZyPREXA) 10 mg DAILY PO Last administered on 01/02/18at 07:39; Start 12/26/17 at 09:00; Stop 01/02/18 at 17:12; Status DC Olanzapine (ZyPREXA) 20 mg HS PO Last administered on 12/29/17at 21:34; Start at 21:00; Stop 12/30/17 at 18:50; Status DC Trazodone HCl (Desyrel) 50 mg QHS PO Last administered on 01/11/18at 19:21; Start 12/26/17 at 21:00 Cephalexin HCl (Keflex) 250 mg STK-MED ONCE .ROUTE ; Start 12/26/17 at 05:29; Stop 12/26/17 at 05:30; Status DC Lactobacillus Rhamnosus (Culturelle) 1 cap BID PO Last administered on 19:22; Start 12/26/17 at 09:00 Phenazopyridine HCl (Pyridium) 100 mg TID PO Last administered on 12/28/17at 07: 52; Start 12/26/17 at 14:00; Stop 12/28/17 at 13:00; Status DC Artificial Tears (Refresh Classic) 1 drop TID OU ; Start 12/26/17 at 17:00; Stop 12/26/17 at 17:00; Status DC Artificial Tears (Refresh Classic) 1 drop TID OU Last administered on at 19:21; Start 12/26/17 at 17:00 Risperidone (RisperDAL) 0.5 mg HS PO Last administered on 12/29/17at 21:33; Start 12/26/17 at 22:30; Stop 12/30/17 at 18:50; Status DC Trazodone HCl (Desyrel) 50 mg PRN QHS PRN PO INSOMNIA; Start 12/26/17 at 22:30 Estradiol (Estrace) 1 barbara QMTH@2100 VG Last administered on 01/08/18at 20:47; Start 12/29/17 at 21:00 Benztropine Mesylate (Cogentin) 0.5 mg BID PO Last administered on 01/07/18at 08 :17; Start 12/30/17 at 21:00; Stop 01/07/18 at 16:46; Status DC Olanzapine (ZyPREXA) 10 mg HS PO Last administered on 01/06/18at 19:46; Start at 21:00; Stop 01/07/18 at 16:46; Status DC Risperidone (RisperDAL) 1 mg HS PO Last administered on 01/05/18at 20:28; Start 12/30/17 at 21:00; Stop 01/06/18 at 17:55; Status DC [place] Carbonate 450 mg HS PO Last administered on 01/11/18 19:22; Start at 21:00 [place] Carbonate 300 mg DAILY PO Last administered on 01/11/18at 08:22; Start 12/31/17 at 09:00 Olanzapine (ZyPREXA) 5 mg DAILY PO Last administered on 01/04/18at 07:53; Start 01/03/18 at 09:00; Stop 01/04/18 at 18:24; Status DC Risperidone (RisperDAL) 1.5 mg HS PO Last administered on 01/11/18 19:23; Start 01/06/18 at 21:00 Benztropine Mesylate (Cogentin) 0.5 mg HS PO Last administered on 01/11/18 19: 22; Start 01/07/18 at 21:00 Olanzapine (ZyPREXA) 5 mg QHS PO Last administered on 01/11/18at 19:21; Start at 21:00 Active Scripts Active Reported Zyprexa (Olanzapine) 20 Mg Tablet 20 Mg PO HS Zyprexa (Olanzapine) 10 Mg Tablet 10 Mg PO DAILY Trazodone Hcl 50 Mg Tablet 50 Mg PO HS Tegretol (Carbamazepine) 200 Mg Tablet 300 Mg PO BID Sorbitol (Sorbitol Solution) 1 Ml Solution 1 Ml MC Norvasc (Amlodipine Besylate) 5 Mg Tablet 5 Mg PO DAILY [place]-128 (Sodium Chloride) 15 Ml Drops 1 Drop OD HS Miralax (Polyethylene Glycol 3350) 17 Gm Powd.pack 17 Gm PO DAILY Milk Of Magnesia (Magnesium Hydroxide) 2,400 Mg/10 Ml Oral.susp 2,400 Mg PO PRN DAILY PRN [place] Carbonate 300 Mg Tablet 300 Mg PO BID [place] Carbonate 150 Mg Capsule 150 Mg PO HS Lipitor (Atorvastatin Calcium) 20 Mg Tablet 20 Mg PO QHS Levothyroxine Sodium 75 Mcg Tablet 75 Mcg PO DAILYAC Estrace (Estradiol) 42.5 Gm Cream.appl 1 Gm VG HS QMON/ Insert at bedtime on Friday and Vitamin D2 (Ergocalciferol (Vitamin D2)) 50,000 Unit Capsule 50,000 Unit PO WEEKLY Endocet 10-325 Mg Tablet (Oxycodone Hcl/Acetaminophen) 1 Each Tablet 1 Tab PO PRN Q6HRS PRN [durezol] Buspirone Hcl 5 Mg Tablet 5 Mg PO PRN Q8HRS PRN Benztropine Mesylate 1 Mg Tablet 1 Mg PO BID Artificial Tears Eye Drops (Dextran 70/Hypromellose) 15 Ml Drops 1 Drop EACHEYE TID Tylenol (Acetaminophen) 325 Mg Tablet 650 Mg PO PRN Q6HRS PRN I have reviewed the current psychotropics carefully including drug interactions. Risk benefit ratio favors no change other than as noted in my dictated progress note. 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
--- NOTE | 2018-01-11 20:18 | PDOC ---
Exam Note: Julian Note: Please also refer to the separate dictated note~for this date of service dictated separately.~Patient seen individually. Discussed the patient with Nursing staff reviewed the chart.~Reviewed interim history and current functioning. Reviewed vital signs,~Labs/ Radiology~and current medications noted below. Continue current treatment with the changes noted in the dictated addendum note Assessment: Vital Signs: Vital Signs Date Time Temp Pulse Resp B/P (MAP) Pulse Ox O2 Delivery O2 Flow Rate FiO2 01/11/18 16:38 98.9 71 18 130/70 (90) 98 01/11/18 06:15 Room Air I&O Intake and Output 01/11/18 07:00 Intake Total 1320 ml Balance 1320 ml Intake Oral 1320 ml # Bowel Movements 1 Current Medications: Meds: Current Medications Lactated Ringer's 1,000 ml @ 1,000 mls/hr Q1H IV Last administered on at 23:19; Start 12/25/17 at 23:30; Stop 12/26/17 at 00:29; Status DC Cephalexin HCl (Keflex) 500 mg 1X ONCE PO Last administered on 12/26/17at 05:32 ; Start 12/26/17 at 01:15; Stop 12/26/17 at 01:16; Status DC Levofloxacin (Levaquin) 500 mg 1X ONCE PO Last administered on 12/26/17at 01:45 ; Start 12/26/17 at 01:45; Stop 12/26/17 at 01:46; Status DC Levofloxacin (Levaquin) 500 mg DAILY06 PO Last administered on 12/29/17at 05:32 ; Start 12/27/17 at 06:00; Stop 12/29/17 at 12:04; Status DC Multi-Ingredient Ointment (Analgesic [place]) 1 barbara PRN QID PRN TP MUSCLE PAIN; Start 12/26/17 at 05:15 Al Hydroxide/Mg Hydroxide (Mylanta Plus Xs) 15 ml PRN AFTMEALHC PRN PO DYSPEPSIA; Start 12/26/17 at 05:15 Acetaminophen (Tylenol) 650 mg PRN Q6HRS PRN PO PAIN / TEMP Last administered on 01/07/18at 04:56; Start 12/26/17 at 05:15 Atorvastatin Calcium (Lipitor) 20 mg QHS PO Last administered on 01/11/18 19: 21; Start 12/26/17 at 21:00 Estradiol (Estrace) 1 barbara QMTH VG ; Start 12/29/17 at 16:00; Stop 12/29/17 at 16 :06; Status DC Levothyroxine Sodium (Synthroid) 75 mcg DAILY07 PO Last administered on 06:02; Start 12/26/17 at 07:00 Oxycodone/ Acetaminophen (Percocet 10/325) 1 tab PRN Q6HRS PRN PO PAIN Last administered on 12/27/17at 13:18; Start 12/26/17 at 05:15 Sorbitol (Sorbitol Solution) 30 ml PRN DAILY PRN PO CONSTIPATION; Start at 05:15 Amlodipine Besylate (Norvasc) 5 mg DAILY PO Last administered on 01/11/18 08: 23; Start 12/26/17 at 09:00 Artificial Tears (Artificial Tears) 1 drop TID OU Last administered on at 14:19; Start 12/26/17 at 09:00; Stop 12/26/17 at 16:57; Status DC Vitamin D (Vitamin D3) 50,000 unit QSU PO Last administered on 01/11/18 08:23 ; Start 12/28/17 at 16:00 Magnesium Hydroxide (Milk Of Magnesia) 2,400 mg PRN DAILY PRN PO CONSTIPATION; Start 12/26/17 at 05:15 Polyethylene Glycol (miraLAX) 17 gm DAILY PO Last administered on 01/11/18at 08: 22; Start 12/26/17 at 09:00 Sodium Chloride ([place]) 0.25 inch HS OD Last administered on 01/11/18 19:24; Start 12/26/17 at 21:00 Carbamazepine (TEGretol) 300 mg BID PO Last administered on 01/11/18 19:22; Start 12/26/17 at 09:00 Benztropine Mesylate (Cogentin) 1 mg BID PO Last administered on 12/30/17at 09: 17; Start 12/26/17 at 09:00; Stop 12/30/17 at 18:50; Status DC Buspirone HCl (Buspar) 5 mg PRN Q8HRS PRN PO PSYCHOSIS Last administered on 03/05at 08:09; Start 12/26/17 at 05:30; Stop 01/08/18 at 10:15; Status DC [place] Carbonate 150 mg HS PO Last administered on 12/30/17 20:34; Start 03/05 at 21:00; Stop 12/30/17 at 22:00; Status DC [place] Carbonate 300 mg BID PO Last administered on 12/30/17 20:34; Start 03/05 at 09:00; Stop 12/30/17 at 22:00; Status DC Olanzapine (ZyPREXA) 10 mg DAILY PO Last administered on 01/02/18at 07:39; Start 12/26/17 at 09:00; Stop 01/02/18 at 17:12; Status DC Olanzapine (ZyPREXA) 20 mg HS PO Last administered on 12/29/17 21:34; Start at 21:00; Stop 12/30/17 at 18:50; Status DC Trazodone HCl (Desyrel) 50 mg QHS PO Last administered on 01/11/18 19:21; Start 12/26/17 at 21:00 Cephalexin HCl (Keflex) 250 mg STK-MED ONCE .ROUTE ; Start 12/26/17 at 05:29; Stop 12/26/17 at 05:30; Status DC Lactobacillus Rhamnosus (Culturelle) 1 cap BID PO Last administered on at 19:22; Start 12/26/17 at 09:00 Phenazopyridine HCl (Pyridium) 100 mg TID PO Last administered on 12/28/17at 07: 52; Start 12/26/17 at 14:00; Stop 12/28/17 at 13:00; Status DC Artificial Tears (Refresh Classic) 1 drop TID OU ; Start 12/26/17 at 17:00; Stop 12/26/17 at 17:00; Status DC Artificial Tears (Refresh Classic) 1 drop TID OU Last administered on 19:21; Start 12/26/17 at 17:00 Risperidone (RisperDAL) 0.5 mg HS PO Last administered on 12/29/17at 21:33; Start 12/26/17 at 22:30; Stop 12/30/17 at 18:50; Status DC Trazodone HCl (Desyrel) 50 mg PRN QHS PRN PO INSOMNIA; Start 12/26/17 at 22:30 Estradiol (Estrace) 1 barbara QMTH@2100 VG Last administered on 01/08/18at 20:47; Start 12/29/17 at 21:00 Benztropine Mesylate (Cogentin) 0.5 mg BID PO Last administered on 01/07/18at 08 :17; Start 12/30/17 at 21:00; Stop 01/07/18 at 16:46; Status DC Olanzapine (ZyPREXA) 10 mg HS PO Last administered on 01/06/18at 19:46; Start at 21:00; Stop 01/07/18 at 16:46; Status DC Risperidone (RisperDAL) 1 mg HS PO Last administered on 01/05/18at 20:28; Start 12/30/17 at 21:00; Stop 01/06/18 at 17:55; Status DC [place] Carbonate 450 mg HS PO Last administered on 01/11/18 19:22; Start at 21:00 [place] Carbonate 300 mg DAILY PO Last administered on 01/11/18 08:22; Start 12/31/17 at 09:00 Olanzapine (ZyPREXA) 5 mg DAILY PO Last administered on 01/04/18at 07:53; Start 01/03/18 at 09:00; Stop 01/04/18 at 18:24; Status DC Risperidone (RisperDAL) 1.5 mg HS PO Last administered on 01/11/18 19:23; Start 01/06/18 at 21:00 Benztropine Mesylate (Cogentin) 0.5 mg HS PO Last administered on 01/11/18 19: 22; Start 01/07/18 at 21:00 Olanzapine (ZyPREXA) 5 mg QHS PO Last administered on 01/11/18 19:21; Start at 21:00 Active Scripts Active Reported Zyprexa (Olanzapine) 20 Mg Tablet 20 Mg PO HS Zyprexa (Olanzapine) 10 Mg Tablet 10 Mg PO DAILY Trazodone Hcl 50 Mg Tablet 50 Mg PO HS Tegretol (Carbamazepine) 200 Mg Tablet 300 Mg PO BID Sorbitol (Sorbitol Solution) 1 Ml Solution 1 Ml MC Norvasc (Amlodipine Besylate) 5 Mg Tablet 5 Mg PO DAILY [place]-128 (Sodium Chloride) 15 Ml Drops 1 Drop OD HS Miralax (Polyethylene Glycol 3350) 17 Gm Powd.pack 17 Gm PO DAILY Milk Of Magnesia (Magnesium Hydroxide) 2,400 Mg/10 Ml Oral.susp 2,400 Mg PO PRN DAILY PRN [place] Carbonate 300 Mg Tablet 300 Mg PO BID [place] Carbonate 150 Mg Capsule 150 Mg PO HS Lipitor (Atorvastatin Calcium) 20 Mg Tablet 20 Mg PO QHS Levothyroxine Sodium 75 Mcg Tablet 75 Mcg PO DAILYAC Estrace (Estradiol) 42.5 Gm Cream.appl 1 Gm VG HS QMON/ Insert at bedtime on Friday and Vitamin D2 (Ergocalciferol (Vitamin D2)) 50,000 Unit Capsule 50,000 Unit PO WEEKLY Endocet 10-325 Mg Tablet (Oxycodone Hcl/Acetaminophen) 1 Each Tablet 1 Tab PO PRN Q6HRS PRN [durezol] Buspirone Hcl 5 Mg Tablet 5 Mg PO PRN Q8HRS PRN Benztropine Mesylate 1 Mg Tablet 1 Mg PO BID Artificial Tears Eye Drops (Dextran 70/Hypromellose) 15 Ml Drops 1 Drop EACHEYE TID Tylenol (Acetaminophen) 325 Mg Tablet 650 Mg PO PRN Q6HRS PRN I have reviewed the current psychotropics carefully including drug interactions. Risk benefit ratio favors no change other than as noted in my dictated progress note. 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
--- NOTE | 2018-01-12 01:50 | PN ---
DATE: 01/09/2018 PSYCHIATRIC PROGRESS NOTE This is a late entry 01/09/2018, covers elements not covered in my initial note. SUBJECTIVE: I met with the patient in the evening. The patient slept 6-3/4 hours previous evening, remains irritable, less grandiose, still slightly hyperverbal in speech, but much more redirectable. REVIEW OF SYSTEMS: No CV, , pulmonary, eye, ENT system symptoms on review. MENTAL STATUS EXAM: Reasonably oriented. Speech coherent, still somewhat pressured, less so than before. Abstraction fair, computation impaired, language function intact, attention span short. Mood and affect, less labile. LABORATORY DATA: Reviewed. IMPRESSION: Unchanged from initial note. PLAN: No change from initial note. MAN Rox WATT MD DR: SANCHEZ/fredrick JOB#: [id number] / [id number]
[2018-01-12 05:36] VITALS: BP 133/84
[2018-01-12] MEDS: LEVOTHYROXINE 75 MCG TABLET PO SCH (06:30)
[2018-01-12 07:58] LABS: BASO % 1 % (0-3); EOS # 0.2 x10^3/uL (0.0-0.7); EOS % 4 % (0-3); HEMATOCRIT 36.4 % (36.0-47.0); HEMOGLOBIN 12.4 g/dL (12.0-15.5); LYMPH # 1.4 x10^3/uL (1.0-4.8); LYMPH % 23 % (24-48); MEAN CORPUSCULAR HEMOGLOBIN 31 pg (25-35); MEAN CORPUSCULAR HGB CONC 34 g/dL (31-37); MEAN CORPUSCULAR VOLUME 91 fL (79-100); MONO # 0.6 x10^3/uL (0.0-1.1); MONO % 10 % (0-9); NEUT # 3.7 x10^3uL (1.8-7.7); NEUT % 63 % (31-73); PLATELET COUNT 198 x10^3/uL (140-400); RED BLOOD COUNT 4.02 x10^6/uL (3.50-5.40); RED CELL DISTRIBUTION WIDTH 12.8 % (11.5-14.5); WHITE BLOOD COUNT 5.8 x10^3/uL (4.0-11.0)
[2018-01-12] MEDS: POLYETHYLENE GLYCOL 3350 17 GM PACKET. PO SCH (08:04)
[2018-01-12] MEDS: LITHIUM CARBONATE 300 MG TABLET PO SCH ×2 (08:04→20:10)
[2018-01-12] MEDS: POLYVINYL ALCOHOL/POVIDONE/PF OPHTH SOLUTION DROPERETTE. OU SCH ×3 (08:04→20:11)
[2018-01-12] MEDS: LACTOBACILLUS RHAMNOSUS GG 1 CAPSULE. PO SCH ×2 (08:04→20:09)
[2018-01-12] MEDS: carBAMazepine 200 MG TABLET PO SCH ×2 (08:05→20:10)
[2018-01-12] MEDS: amLODIPine BESYLATE 5 MG TABLET PO SCH (08:05)
[2018-01-12 08:17] LABS: ALBUMIN 3.1 g/dL (3.4-5.0); ALBUMIN/GLOBULIN RATIO 0.9 (1.0-1.7); CALCIUM 10.1 mg/dL (8.5-10.1); CREATININE 0.8 mg/dL (0.6-1.0); GFR 71.3; POTASSIUM 4.7 mmol/L (3.5-5.1); TOTAL BILIRUBIN 0.2 mg/dL (0.2-1.0); TOTAL PROTEIN 6.6 g/dL (6.4-8.2)
[2018-01-12 15:43] VITALS: BP 142/86
[2018-01-12] MEDS: OLANZapine 5 MG TABLET PO SCH (20:09)
[2018-01-12] MEDS: traZODone 50 MG TABLET. PO SCH (20:09)
[2018-01-12] MEDS: ATORVASTATIN CALCIUM 20 MG TABLET PO SCH (20:10)
[2018-01-12] MEDS: BENZTROPINE MESYLATE 0.5 MG TABLET PO SCH (20:10)
[2018-01-12] MEDS: risperiDONE 1 MG TABLET. PO SCH (20:10)
[2018-01-12] MEDS: SODIUM CHLORIDE 5% OPHTH OINTMENT 3.5GM TUBE. OD SCH (20:14)
[2018-01-12] MEDS: ESTRADIOL 0.01% VAGINAL CREAM 42.5GM TUBE. VG SCH ×2 (20:15→20:18)
--- NOTE | 2018-01-12 20:54 | PDOC ---
Exam Note: Julian Note: Please also refer to the separate dictated note~for this date of service dictated separately.~Patient seen individually. Discussed the patient with Nursing staff reviewed the chart.~Reviewed interim history and current functioning. Reviewed vital signs,~Labs/ Radiology~and current medications noted below. Continue current treatment with the changes noted in the dictated addendum note Assessment: Vital Signs: Vital Signs Date Time Temp Pulse Resp B/P (MAP) Pulse Ox O2 Delivery O2 Flow Rate FiO2 01/12/18 15:43 98.7 73 18 142/86 (104) 96 Room Air I&O Intake and Output 01/12/18 07:00 Intake Total 1080 ml Balance 1080 ml Intake Oral 1080 ml Labs: Laboratory Tests Test 01/12/18 07:31 White Blood Count 5.8 x10^3/uL (4.0-11.0) Red Blood Count 4.02 x10^6/uL (3.50-5.40) Hemoglobin 12.4 g/dL (12.0-15.5) Hematocrit 36.4 % (36.0-47.0) Mean Corpuscular Volume 91 fL (79-100) Mean Corpuscular Hemoglobin 31 pg (25-35) Mean Corpuscular Hemoglobin Concent 34 g/dL (31-37) Red Cell Distribution Width 12.8 % (11.5-14.5) Platelet Count 198 x10^3/uL (140-400) Neutrophils (%) (Auto) 63 % (31-73) Lymphocytes (%) (Auto) 23 % (24-48) L Monocytes (%) (Auto) 10 % (0-9) H Eosinophils (%) (Auto) 4 % (0-3) H Basophils (%) (Auto) 1 % (0-3) Neutrophils # (Auto) 3.7 x10^3uL (1.8-7.7) Lymphocytes # (Auto) 1.4 x10^3/uL (1.0-4.8) Monocytes # (Auto) 0.6 x10^3/uL (0.0-1.1) Eosinophils # (Auto) 0.2 x10^3/uL (0.0-0.7) Basophils # (Auto) 0.0 x10^3/uL (0.0-0.2) Sodium Level 141 mmol/L (136-145) Potassium Level 4.7 mmol/L (3.5-5.1) Chloride Level 108 mmol/L (98-107) H Carbon Dioxide Level 29 mmol/L (21-32) Anion Gap 4 (6-14) L Blood Urea Nitrogen 13 mg/dL (7-20) Creatinine 0.8 mg/dL (0.6-1.0) Estimated GFR (Cockcroft-Gault) 71.3 BUN/Creatinine Ratio 16 (6-20) Glucose Level 105 mg/dL (70-99) H Calcium Level 10.1 mg/dL (8.5-10.1) Total Bilirubin 0.2 mg/dL (0.2-1.0) Aspartate Amino Transferase (AST) 20 U/L (15-37) Alanine Aminotransferase (ALT) 17 U/L (14-59) Alkaline Phosphatase 134 U/L (46-116) H Total Protein 6.6 g/dL (6.4-8.2) Albumin 3.1 g/dL (3.4-5.0) L Albumin/Globulin Ratio 0.9 (1.0-1.7) L Current Medications: Meds: Current Medications Lactated Ringer's 1,000 ml @ 1,000 mls/hr Q1H IV Last administered on at 23:19; Start 12/25/17 at 23:30; Stop 12/26/17 at 00:29; Status DC Cephalexin HCl (Keflex) 500 mg 1X ONCE PO Last administered on 12/26/17at 05:32 ; Start 12/26/17 at 01:15; Stop 12/26/17 at 01:16; Status DC Levofloxacin (Levaquin) 500 mg 1X ONCE PO Last administered on 12/26/17at 01:45 ; Start 12/26/17 at 01:45; Stop 12/26/17 at 01:46; Status DC Levofloxacin (Levaquin) 500 mg DAILY06 PO Last administered on 12/29/17at 05:32 ; Start 12/27/17 at 06:00; Stop 12/29/17 at 12:04; Status DC Multi-Ingredient Ointment (Analgesic [place]) 1 barbara PRN QID PRN TP MUSCLE PAIN; Start 12/26/17 at 05:15 Al Hydroxide/Mg Hydroxide (Mylanta Plus Xs) 15 ml PRN AFTMEALHC PRN PO DYSPEPSIA; Start 12/26/17 at 05:15 Acetaminophen (Tylenol) 650 mg PRN Q6HRS PRN PO PAIN / TEMP Last administered on 01/07/18at 04:56; Start 12/26/17 at 05:15 Atorvastatin Calcium (Lipitor) 20 mg QHS PO Last administered on 01/12/18at 20: 10; Start 12/26/17 at 21:00 Estradiol (Estrace) 1 barbara QMTH VG ; Start 12/29/17 at 16:00; Stop 12/29/17 at 16 :06; Status DC Levothyroxine Sodium (Synthroid) 75 mcg DAILY07 PO Last administered on at 06:30; Start 12/26/17 at 07:00 Oxycodone/ Acetaminophen (Percocet 10/325) 1 tab PRN Q6HRS PRN PO PAIN Last administered on 12/27/17at 13:18; Start 12/26/17 at 05:15 Sorbitol (Sorbitol Solution) 30 ml PRN DAILY PRN PO CONSTIPATION; Start at 05:15 Amlodipine Besylate (Norvasc) 5 mg DAILY PO Last administered on 01/12/18 08: 05; Start 12/26/17 at 09:00 Artificial Tears (Artificial Tears) 1 drop TID OU Last administered on at 14:19; Start 12/26/17 at 09:00; Stop 12/26/17 at 16:57; Status DC Vitamin D (Vitamin D3) 50,000 unit QSU PO Last administered on 01/11/18at 08:23 ; Start 12/28/17 at 16:00 Magnesium Hydroxide (Milk Of Magnesia) 2,400 mg PRN DAILY PRN PO CONSTIPATION; Start 12/26/17 at 05:15 Polyethylene Glycol (miraLAX) 17 gm DAILY PO Last administered on 01/12/18at 08: 04; Start 12/26/17 at 09:00 Sodium Chloride (Elmer) 0.25 inch HS OD Last administered on 01/12/18at 20:14; Start 12/26/17 at 21:00 Carbamazepine (TEGretol) 300 mg BID PO Last administered on 01/12/18at 20:10; Start 12/26/17 at 09:00 Benztropine Mesylate (Cogentin) 1 mg BID PO Last administered on 12/30/17at 09: 17; Start 12/26/17 at 09:00; Stop 12/30/17 at 18:50; Status DC Buspirone HCl (Buspar) 5 mg PRN Q8HRS PRN PO PSYCHOSIS Last administered on 03/05at 08:09; Start 12/26/17 at 05:30; Stop 01/08/18 at 10:15; Status DC [place] Carbonate 150 mg HS PO Last administered on 12/30/17at 20:34; Start 03/05 at 21:00; Stop 12/30/17 at 22:00; Status DC [place] Carbonate 300 mg BID PO Last administered on 12/30/17at 20:34; Start 03/05 at 09:00; Stop 12/30/17 at 22:00; Status DC Olanzapine (ZyPREXA) 10 mg DAILY PO Last administered on 01/02/18at 07:39; Start 12/26/17 at 09:00; Stop 01/02/18 at 17:12; Status DC Olanzapine (ZyPREXA) 20 mg HS PO Last administered on 12/29/17at 21:34; Start at 21:00; Stop 12/30/17 at 18:50; Status DC Trazodone HCl (Desyrel) 50 mg QHS PO Last administered on 01/12/18at 20:09; Start 12/26/17 at 21:00 Cephalexin HCl (Keflex) 250 mg STK-MED ONCE .ROUTE ; Start 12/26/17 at 05:29; Stop 12/26/17 at 05:30; Status DC Lactobacillus Rhamnosus (Culturelle) 1 cap BID PO Last administered on at 20:09; Start 12/26/17 at 09:00 Phenazopyridine HCl (Pyridium) 100 mg TID PO Last administered on 12/28/17at 07: 52; Start 12/26/17 at 14:00; Stop 12/28/17 at 13:00; Status DC Artificial Tears (Refresh Classic) 1 drop TID OU ; Start 12/26/17 at 17:00; Stop 12/26/17 at 17:00; Status DC Artificial Tears (Refresh Classic) 1 drop TID OU Last administered on 20:11; Start 12/26/17 at 17:00 Risperidone (RisperDAL) 0.5 mg HS PO Last administered on 12/29/17at 21:33; Start 12/26/17 at 22:30; Stop 12/30/17 at 18:50; Status DC Trazodone HCl (Desyrel) 50 mg PRN QHS PRN PO INSOMNIA; Start 12/26/17 at 22:30 Estradiol (Estrace) 1 barbara QMTH@2100 VG Last administered on 01/08/18at 20:47; Start 12/29/17 at 21:00 Benztropine Mesylate (Cogentin) 0.5 mg BID PO Last administered on 01/07/18 08 :17; Start 12/30/17 at 21:00; Stop 01/07/18 at 16:46; Status DC Olanzapine (ZyPREXA) 10 mg HS PO Last administered on 01/06/18at 19:46; Start at 21:00; Stop 01/07/18 at 16:46; Status DC Risperidone (RisperDAL) 1 mg HS PO Last administered on 01/05/18at 20:28; Start 12/30/17 at 21:00; Stop 01/06/18 at 17:55; Status DC [place] Carbonate 450 mg HS PO Last administered on 01/12/18 20:10; Start at 21:00 [place] Carbonate 300 mg DAILY PO Last administered on 01/12/18 08:04; Start 12/31/17 at 09:00 Olanzapine (ZyPREXA) 5 mg DAILY PO Last administered on 01/04/18at 07:53; Start 01/03/18 at 09:00; Stop 01/04/18 at 18:24; Status DC Risperidone (RisperDAL) 1.5 mg HS PO Last administered on 01/12/18 20:10; Start 01/06/18 at 21:00 Benztropine Mesylate (Cogentin) 0.5 mg HS PO Last administered on 01/12/18 20: 10; Start 01/07/18 at 21:00 Olanzapine (ZyPREXA) 5 mg QHS PO Last administered on 01/12/18at 20:09; Start at 21:00 Active Scripts Active Reported Zyprexa (Olanzapine) 20 Mg Tablet 20 Mg PO HS Zyprexa (Olanzapine) 10 Mg Tablet 10 Mg PO DAILY Trazodone Hcl 50 Mg Tablet 50 Mg PO HS Tegretol (Carbamazepine) 200 Mg Tablet 300 Mg PO BID Sorbitol (Sorbitol Solution) 1 Ml Solution 1 Ml MC Norvasc (Amlodipine Besylate) 5 Mg Tablet 5 Mg PO DAILY [place]-128 (Sodium Chloride) 15 Ml Drops 1 Drop OD HS Miralax (Polyethylene Glycol 3350) 17 Gm Powd.pack 17 Gm PO DAILY Milk Of Magnesia (Magnesium Hydroxide) 2,400 Mg/10 Ml Oral.susp 2,400 Mg PO PRN DAILY PRN [place] Carbonate 300 Mg Tablet 300 Mg PO BID [place] Carbonate 150 Mg Capsule 150 Mg PO HS Lipitor (Atorvastatin Calcium) 20 Mg Tablet 20 Mg PO QHS Levothyroxine Sodium 75 Mcg Tablet 75 Mcg PO DAILYAC Estrace (Estradiol) 42.5 Gm Cream.appl 1 Gm VG HS QMON/ Insert at bedtime on Friday and Vitamin D2 (Ergocalciferol (Vitamin D2)) 50,000 Unit Capsule 50,000 Unit PO WEEKLY Endocet 10-325 Mg Tablet (Oxycodone Hcl/Acetaminophen) 1 Each Tablet 1 Tab PO PRN Q6HRS PRN [durezol] Buspirone Hcl 5 Mg Tablet 5 Mg PO PRN Q8HRS PRN Benztropine Mesylate 1 Mg Tablet 1 Mg PO BID Artificial Tears Eye Drops (Dextran 70/Hypromellose) 15 Ml Drops 1 Drop EACHEYE TID Tylenol (Acetaminophen) 325 Mg Tablet 650 Mg PO PRN Q6HRS PRN I have reviewed the current psychotropics carefully including drug interactions. Risk benefit ratio favors no change other than as noted in my dictated progress note. 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
--- NOTE | 2018-01-13 05:11 | PN ---
DATE: 01/10/2018 PSYCHIATRIC PROGRESS NOTE This late entry 01/10/2018 covers elements not covered in my initial note. SUBJECTIVE: I met with the patient in the evening. The patient slept 9 hours previous night. She is less hyperverbal, less grandiose, had a better day, calm, cooperative, compliant. REVIEW OF SYSTEMS: No CV, , pulmonary, eye, ENT system symptoms on review. Reliability fair. MENTAL STATUS EXAM: Reasonably oriented. Speech coherent, less pressured. Abstraction fair, computation impaired, language function intact. Mood and affect are improved. DIAGNOSIS: Unchanged from initial note. PLAN: No change from initial note. MAN Rox WATT MD DR: SANCHEZ/fredrick JOB#: [id number] / [id number]
--- NOTE | 2018-01-13 05:11 | PN ---
DATE: 01/11/2018 This is a late entry for 01/11/2018 covers elements not covered in my initial note. SUBJECTIVE: I met with the patient in the evening. The patient slept 8 hours previous night. She has been quite appropriate, calm, pleasant, less manic. REVIEW OF SYSTEMS: No CV, , pulmonary, eye system symptoms on review. MENTAL STATUS EXAM: Reasonably oriented. Speech coherent, slightly pressured. Abstraction fair, computation reasonable, language function intact, attention span short. Mood and affect is improved. IMPRESSION: Unchanged from initial note. PLAN: No change from initial note. Transition to correction early this coming week. MAN Rox WATT MD DR: SANCHEZ/fredrick JOB#: [id number] / [id number]
[2018-01-13 05:39] VITALS: BP 170/94
[2018-01-13] MEDS: LEVOTHYROXINE 75 MCG TABLET PO SCH (06:04)
[2018-01-13] MEDS: LITHIUM CARBONATE 300 MG TABLET PO SCH ×2 (10:38→20:23)
[2018-01-13] MEDS: LACTOBACILLUS RHAMNOSUS GG 1 CAPSULE. PO SCH ×2 (10:38→20:24)
[2018-01-13] MEDS: carBAMazepine 200 MG TABLET PO SCH ×2 (10:38→20:25)
[2018-01-13] MEDS: POLYVINYL ALCOHOL/POVIDONE/PF OPHTH SOLUTION DROPERETTE. OU SCH ×3 (10:39→20:22)
[2018-01-13] MEDS: POLYETHYLENE GLYCOL 3350 17 GM PACKET. PO SCH (10:39)
[2018-01-13] MEDS: amLODIPine BESYLATE 5 MG TABLET PO SCH (10:39)
[2018-01-13 16:16] VITALS: BP 134/88
[2018-01-13] MEDS: ATORVASTATIN CALCIUM 20 MG TABLET PO SCH (20:22)
[2018-01-13] MEDS: risperiDONE 1 MG TABLET. PO SCH (20:23)
[2018-01-13] MEDS: BENZTROPINE MESYLATE 0.5 MG TABLET PO SCH (20:24)
[2018-01-13] MEDS: traZODone 50 MG TABLET. PO SCH (20:24)
[2018-01-13] MEDS: SODIUM CHLORIDE 5% OPHTH OINTMENT 3.5GM TUBE. OD SCH (20:26)
--- NOTE | 2018-01-13 21:05 | PDOC ---
Exam Note: Julian Note: Please also refer to the separate dictated note~for this date of service dictated separately.~Patient seen individually. Discussed the patient with Nursing staff reviewed the chart.~Reviewed interim history and current functioning. Reviewed vital signs,~Labs/ Radiology~and current medications noted below. Continue current treatment with the changes noted in the dictated addendum note Assessment: Vital Signs: Vital Signs Date Time Temp Pulse Resp B/P (MAP) Pulse Ox O2 Delivery O2 Flow Rate FiO2 01/13/18 16:16 98.3 77 20 134/88 (103) 93 01/12/18 15:43 Room Air I&O Intake and Output 01/13/18 07:00 Intake Total 1320 ml Balance 1320 ml Intake Oral 1320 ml Current Medications: Meds: Current Medications Lactated Ringer's 1,000 ml @ 1,000 mls/hr Q1H IV Last administered on at 23:19; Start 12/25/17 at 23:30; Stop 12/26/17 at 00:29; Status DC Cephalexin HCl (Keflex) 500 mg 1X ONCE PO Last administered on 12/26/17at 05:32 ; Start 12/26/17 at 01:15; Stop 12/26/17 at 01:16; Status DC Levofloxacin (Levaquin) 500 mg 1X ONCE PO Last administered on 12/26/17at 01:45 ; Start 12/26/17 at 01:45; Stop 12/26/17 at 01:46; Status DC Levofloxacin (Levaquin) 500 mg DAILY06 PO Last administered on 12/29/17at 05:32 ; Start 12/27/17 at 06:00; Stop 12/29/17 at 12:04; Status DC Multi-Ingredient Ointment (Analgesic [place]) 1 barbara PRN QID PRN TP MUSCLE PAIN; Start 12/26/17 at 05:15 Al Hydroxide/Mg Hydroxide (Mylanta Plus Xs) 15 ml PRN AFTMEALHC PRN PO DYSPEPSIA; Start 12/26/17 at 05:15 Acetaminophen (Tylenol) 650 mg PRN Q6HRS PRN PO PAIN / TEMP Last administered on 01/07/18at 04:56; Start 12/26/17 at 05:15 Atorvastatin Calcium (Lipitor) 20 mg QHS PO Last administered on 8/28/18at 20: 22; Start 12/26/17 at 21:00 Estradiol (Estrace) 1 barbara QMTH VG ; Start 12/29/17 at 16:00; Stop 12/29/17 at 16 :06; Status DC Levothyroxine Sodium (Synthroid) 75 mcg DAILY07 PO Last administered on 06:04; Start 12/26/17 at 07:00 Oxycodone/ Acetaminophen (Percocet 10/325) 1 tab PRN Q6HRS PRN PO PAIN Last administered on 12/27/17 13:18; Start 12/26/17 at 05:15 Sorbitol (Sorbitol Solution) 30 ml PRN DAILY PRN PO CONSTIPATION; Start at 05:15 Amlodipine Besylate (Norvasc) 5 mg DAILY PO Last administered on 01/13/18 10: 39; Start 12/26/17 at 09:00 Artificial Tears (Artificial Tears) 1 drop TID OU Last administered on 14:19; Start 12/26/17 at 09:00; Stop 12/26/17 at 16:57; Status DC Vitamin D (Vitamin D3) 50,000 unit QSU PO Last administered on 01/11/18 08:23 ; Start 12/28/17 at 16:00 Magnesium Hydroxide (Milk Of Magnesia) 2,400 mg PRN DAILY PRN PO CONSTIPATION; Start 12/26/17 at 05:15 Polyethylene Glycol (miraLAX) 17 gm DAILY PO Last administered on 01/13/18at 10: 39; Start 12/26/17 at 09:00 Sodium Chloride ([place]) 0.25 inch HS OD Last administered on 01/13/18 20:26; Start 12/26/17 at 21:00 Carbamazepine (TEGretol) 300 mg BID PO Last administered on 01/13/18 20:25; Start 12/26/17 at 09:00 Benztropine Mesylate (Cogentin) 1 mg BID PO Last administered on 12/30/17at 09: 17; Start 12/26/17 at 09:00; Stop 12/30/17 at 18:50; Status DC Buspirone HCl (Buspar) 5 mg PRN Q8HRS PRN PO PSYCHOSIS Last administered on 03/05at 08:09; Start 12/26/17 at 05:30; Stop 01/08/18 at 10:15; Status DC [place] Carbonate 150 mg HS PO Last administered on 12/30/17 20:34; Start 03/05 at 21:00; Stop 12/30/17 at 22:00; Status DC [place] Carbonate 300 mg BID PO Last administered on 12/30/17at 20:34; Start 03/05 at 09:00; Stop 12/30/17 at 22:00; Status DC Olanzapine (ZyPREXA) 10 mg DAILY PO Last administered on 01/02/18at 07:39; Start 12/26/17 at 09:00; Stop 01/02/18 at 17:12; Status DC Olanzapine (ZyPREXA) 20 mg HS PO Last administered on 12/29/17 21:34; Start at 21:00; Stop 12/30/17 at 18:50; Status DC Trazodone HCl (Desyrel) 50 mg QHS PO Last administered on 01/13/18at 20:24; Start 12/26/17 at 21:00 Cephalexin HCl (Keflex) 250 mg STK-MED ONCE .ROUTE ; Start 12/26/17 at 05:29; Stop 12/26/17 at 05:30; Status DC Lactobacillus Rhamnosus (Culturelle) 1 cap BID PO Last administered on at 20:24; Start 12/26/17 at 09:00 Phenazopyridine HCl (Pyridium) 100 mg TID PO Last administered on 12/28/17at 07: 52; Start 12/26/17 at 14:00; Stop 12/28/17 at 13:00; Status DC Artificial Tears (Refresh Classic) 1 drop TID OU ; Start 12/26/17 at 17:00; Stop 12/26/17 at 17:00; Status DC Artificial Tears (Refresh Classic) 1 drop TID OU Last administered on at 20:22; Start 12/26/17 at 17:00 Risperidone (RisperDAL) 0.5 mg HS PO Last administered on 12/29/17at 21:33; Start 12/26/17 at 22:30; Stop 12/30/17 at 18:50; Status DC Trazodone HCl (Desyrel) 50 mg PRN QHS PRN PO INSOMNIA; Start 12/26/17 at 22:30 Estradiol (Estrace) 1 barbara QMTH@2100 VG Last administered on 01/08/18at 20:47; Start 12/29/17 at 21:00 Benztropine Mesylate (Cogentin) 0.5 mg BID PO Last administered on 01/07/18 08 :17; Start 12/30/17 at 21:00; Stop 01/07/18 at 16:46; Status DC Olanzapine (ZyPREXA) 10 mg HS PO Last administered on 01/06/18at 19:46; Start at 21:00; Stop 01/07/18 at 16:46; Status DC Risperidone (RisperDAL) 1 mg HS PO Last administered on 01/05/18at 20:28; Start 12/30/17 at 21:00; Stop 01/06/18 at 17:55; Status DC [place] Carbonate 450 mg HS PO Last administered on 01/13/18 20:23; Start at 21:00 [place] Carbonate 300 mg DAILY PO Last administered on 01/13/18at 10:38; Start 12/31/17 at 09:00 Olanzapine (ZyPREXA) 5 mg DAILY PO Last administered on 01/04/18at 07:53; Start 01/03/18 at 09:00; Stop 01/04/18 at 18:24; Status DC Risperidone (RisperDAL) 1.5 mg HS PO Last administered on 01/13/18 20:23; Start 01/06/18 at 21:00 Benztropine Mesylate (Cogentin) 0.5 mg HS PO Last administered on 01/13/18at 20: 24; Start 01/07/18 at 21:00 Olanzapine (ZyPREXA) 5 mg QHS PO Last administered on 01/12/18 20:09; Start at 21:00; Stop 01/13/18 at 18:44; Status DC Active Scripts Active Reported Zyprexa (Olanzapine) 20 Mg Tablet 20 Mg PO HS Zyprexa (Olanzapine) 10 Mg Tablet 10 Mg PO DAILY Trazodone Hcl 50 Mg Tablet 50 Mg PO HS Tegretol (Carbamazepine) 200 Mg Tablet 300 Mg PO BID Sorbitol (Sorbitol Solution) 1 Ml Solution 1 Ml MC Norvasc (Amlodipine Besylate) 5 Mg Tablet 5 Mg PO DAILY [place]-128 (Sodium Chloride) 15 Ml Drops 1 Drop OD HS Miralax (Polyethylene Glycol 3350) 17 Gm Powd.pack 17 Gm PO DAILY Milk Of Magnesia (Magnesium Hydroxide) 2,400 Mg/10 Ml Oral.susp 2,400 Mg PO PRN DAILY PRN [place] Carbonate 300 Mg Tablet 300 Mg PO BID [place] Carbonate 150 Mg Capsule 150 Mg PO HS Lipitor (Atorvastatin Calcium) 20 Mg Tablet 20 Mg PO QHS Levothyroxine Sodium 75 Mcg Tablet 75 Mcg PO DAILYAC Estrace (Estradiol) 42.5 Gm Cream.appl 1 Gm VG HS QMON/ Insert at bedtime on Friday and Vitamin D2 (Ergocalciferol (Vitamin D2)) 50,000 Unit Capsule 50,000 Unit PO WEEKLY Endocet 10-325 Mg Tablet (Oxycodone Hcl/Acetaminophen) 1 Each Tablet 1 Tab PO PRN Q6HRS PRN [durezol] Buspirone Hcl 5 Mg Tablet 5 Mg PO PRN Q8HRS PRN Benztropine Mesylate 1 Mg Tablet 1 Mg PO BID Artificial Tears Eye Drops (Dextran 70/Hypromellose) 15 Ml Drops 1 Drop EACHEYE TID Tylenol (Acetaminophen) 325 Mg Tablet 650 Mg PO PRN Q6HRS PRN I have reviewed the current psychotropics carefully including drug interactions. Risk benefit ratio favors no change other than as noted in my dictated progress note. 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
--- NOTE | 2018-01-14 00:35 | PN ---
DATE: 01/12/2018 This is a late entry for 01/12/2018 covers elements not covered in my initial note. SUBJECTIVE: I met with the patient in the evening. The patient slept 8 hours previous evening. She has been less gruff, less labile, less irritable. She does come out to the group areas and interacts with others. REVIEW OF SYSTEMS: No CV, , GI system symptoms on review. Reliability fair. MENTAL STATUS EXAM: The patient is reasonably oriented. Speech is coherent, less pressured. Abstraction fair, computation impaired, language function intact. Mood and affect less grandiose. LABORATORY DATA: Reviewed. IMPRESSION: Unchanged from initial note. PLAN: No change from initial note. MAN Rox WATT MD DR: SANCHEZ/fredrick JOB#: [id number] / [id number]
[2018-01-14] MEDS ORDERED: TRAZ-85 PO (04:22)
[2018-01-14] MEDS ORDERED: LACT1CAP19 PO (04:23)
[2018-01-14] MEDS ORDERED: POLY1DRO3 OU (04:25)
[2018-01-14] MEDS ORDERED: RISP1TAB3 PO (04:26)
[2018-01-14] MEDS ORDERED: BENZ0.5T32 PO (04:26)
[2018-01-14] MEDS ORDERED: LITH300C PO (04:26)
[2018-01-14] MEDS ORDERED: METH29OI TP (04:27)
[2018-01-14] MEDS ORDERED: MAG355OR11 PO (04:29)
[2018-01-14 06:04] VITALS: BP 121/60
[2018-01-14] MEDS: LEVOTHYROXINE 75 MCG TABLET PO SCH (06:32)
[2018-01-14 07:45] VITALS: BP 121/60
[2018-01-14] MEDS: POLYVINYL ALCOHOL/POVIDONE/PF OPHTH SOLUTION DROPERETTE. OU SCH (07:45)
[2018-01-14] MEDS: LACTOBACILLUS RHAMNOSUS GG 1 CAPSULE. PO SCH (07:45)
[2018-01-14] MEDS: LITHIUM CARBONATE 300 MG TABLET PO SCH (07:45)
[2018-01-14] MEDS: amLODIPine BESYLATE 5 MG TABLET PO SCH (07:45)
[2018-01-14] MEDS: POLYETHYLENE GLYCOL 3350 17 GM PACKET. PO SCH (07:45)
[2018-01-14] MEDS: carBAMazepine 200 MG TABLET PO SCH (07:46)
--- NOTE | 2018-01-15 04:43 | PN ---
DATE: 01/13/2018 PSYCHIATRIC PROGRESS NOTE This late entry 01/13/2018 covers elements not covered in my initial note. SUBJECTIVE: I met with the patient in the evening. The patient slept 7-1/2 hours previous evening. She has been fairly compliant, cooperative, less hyperverbal, less abrasive. REVIEW OF SYSTEMS: No CV, , pulmonary, eye system symptoms on review. Reliability fair. MENTAL STATUS EXAM: Reasonably oriented. Speech coherent. Mood and affect is improved. No suicidal or homicidal ideation. IMPRESSION: Unchanged from initial note. PLAN: No change from initial note. DISPOSITION: Discharge to penitentiary 01/14/2018. MAN Rox WATT MD DR: SANCHEZ/fredrick JOB#: [id number] / [id number]
--- NOTE | 2018-01-15 20:43 | PDOC ---
Exam Note: Julian Note: Late entry for DOS 01.14.2018. Please also refer to the separate dictated note~ for this date of service dictated separately.~Patient seen individually. Discussed the patient with Nursing staff reviewed the chart.~Reviewed interim history and current functioning. Reviewed vital signs,~Labs/ Radiology~and current medications noted below. Continue current treatment with the changes noted in the dictated addendum note Assessment: Vital Signs: VS - Last 72 Hours, by Label Date Time Temp Pulse Resp B/P (MAP) Pulse Ox O2 Delivery O2 Flow Rate FiO2 01/14/18 07:45 61 121/60 01/14/18 06:04 97.3 61 18 121/60 (80) 94 01/13/18 16:16 98.3 77 20 134/88 (103) 93 01/13/18 10:39 66 170/94 01/13/18 05:39 97.3 66 20 170/94 (119) 98 Vital Signs Date Time Temp Pulse Resp B/P (MAP) Pulse Ox O2 Delivery O2 Flow Rate FiO2 01/14/18 07:45 61 121/60 01/14/18 06:04 97.3 18 94 01/12/18 15:43 Room Air I&O Intake and Output 01/15/18 07:00 Intake Total 480 ml Balance 480 ml Intake Oral 480 ml Current Medications: Meds: Current Medications Lactated Ringer's 1,000 ml @ 1,000 mls/hr Q1H IV Last administered on at 23:19; Start 12/25/17 at 23:30; Stop 12/26/17 at 00:29; Status DC Cephalexin HCl (Keflex) 500 mg 1X ONCE PO Last administered on 12/26/17at 05:32 ; Start 12/26/17 at 01:15; Stop 12/26/17 at 01:16; Status DC Levofloxacin (Levaquin) 500 mg 1X ONCE PO Last administered on 12/26/17at 01:45 ; Start 12/26/17 at 01:45; Stop 12/26/17 at 01:46; Status DC Levofloxacin (Levaquin) 500 mg DAILY06 PO Last administered on 12/29/17at 05:32 ; Start 12/27/17 at 06:00; Stop 12/29/17 at 12:04; Status DC Multi-Ingredient Ointment (Analgesic Tina) 1 speedy PRN QID PRN TP MUSCLE PAIN; Start 12/26/17 at 05:15; Stop 01/14/18 at 14:01; Status DC Al Hydroxide/Mg Hydroxide (Mylanta Plus Xs) 15 ml PRN AFTMEALHC PRN PO DYSPEPSIA; Start 12/26/17 at 05:15; Stop 01/14/18 at 14:01; Status DC Acetaminophen (Tylenol) 650 mg PRN Q6HRS PRN PO PAIN / TEMP Last administered on 01/07/18at 04:56; Start 12/26/17 at 05:15; Stop 01/14/18 at 14:01; Status DC Atorvastatin Calcium (Lipitor) 20 mg QHS PO Last administered on 01/13/18at 20: 22; Start 12/26/17 at 21:00; Stop 01/14/18 at 14:01; Status DC Estradiol (Estrace) 1 speedy QMTH VG ; Start 12/29/17 at 16:00; Stop 12/29/17 at 16 :06; Status DC Levothyroxine Sodium (Synthroid) 75 mcg DAILY07 PO Last administered on at 06:32; Start 12/26/17 at 07:00; Stop 01/14/18 at 14:01; Status DC Oxycodone/ Acetaminophen (Percocet 10/325) 1 tab PRN Q6HRS PRN PO PAIN Last administered on 12/27/17at 13:18; Start 12/26/17 at 05:15; Stop 01/14/18 at 14:01 ; Status DC Sorbitol (Sorbitol Solution) 30 ml PRN DAILY PRN PO CONSTIPATION; Start at 05:15; Stop 01/14/18 at 14:01; Status DC Amlodipine Besylate (Norvasc) 5 mg DAILY PO Last administered on 01/14/18at 07: 45; Start 12/26/17 at 09:00; Stop 01/14/18 at 14:01; Status DC Artificial Tears (Artificial Tears) 1 drop TID OU Last administered on at 14:19; Start 12/26/17 at 09:00; Stop 12/26/17 at 16:57; Status DC Vitamin D (Vitamin D3) 50,000 unit QSU PO Last administered on 01/11/18at 08:23 ; Start 12/28/17 at 16:00; Stop 01/14/18 at 14:01; Status DC Magnesium Hydroxide (Milk Of Magnesia) 2,400 mg PRN DAILY PRN PO CONSTIPATION; Start 12/26/17 at 05:15; Stop 01/14/18 at 14:01; Status DC Polyethylene Glycol (miraLAX) 17 gm DAILY PO Last administered on 01/14/18at 07: 45; Start 12/26/17 at 09:00; Stop 01/14/18 at 14:01; Status DC Sodium Chloride (Elmer) 0.25 inch HS OD Last administered on 01/13/18at 20:26; Start 12/26/17 at 21:00; Stop 01/14/18 at 14:01; Status DC Carbamazepine (TEGretol) 300 mg BID PO Last administered on 01/14/18at 07:46; Start 12/26/17 at 09:00; Stop 01/14/18 at 14:01; Status DC Benztropine Mesylate (Cogentin) 1 mg BID PO Last administered on 12/30/17at 09: 17; Start 12/26/17 at 09:00; Stop 12/30/17 at 18:50; Status DC Buspirone HCl (Buspar) 5 mg PRN Q8HRS PRN PO PSYCHOSIS Last administered on 03/05at 08:09; Start 12/26/17 at 05:30; Stop 01/08/18 at 10:15; Status DC [place] Carbonate 150 mg HS PO Last administered on 12/30/17at 20:34; Start 03/05 at 21:00; Stop 12/30/17 at 22:00; Status DC [place] Carbonate 300 mg BID PO Last administered on 12/30/17at 20:34; Start 03/05 at 09:00; Stop 12/30/17 at 22:00; Status DC Olanzapine (ZyPREXA) 10 mg DAILY PO Last administered on 01/02/18at 07:39; Start 12/26/17 at 09:00; Stop 01/02/18 at 17:12; Status DC Olanzapine (ZyPREXA) 20 mg HS PO Last administered on 12/29/17at 21:34; Start at 21:00; Stop 12/30/17 at 18:50; Status DC Trazodone HCl (Desyrel) 50 mg QHS PO Last administered on 01/13/18at 20:24; Start 12/26/17 at 21:00; Stop 01/14/18 at 14:01; Status DC Cephalexin HCl (Keflex) 250 mg STK-MED ONCE .ROUTE ; Start 12/26/17 at 05:29; Stop 12/26/17 at 05:30; Status DC Lactobacillus Rhamnosus (Culturelle) 1 cap BID PO Last administered on at 07:45; Start 12/26/17 at 09:00; Stop 01/14/18 at 14:01; Status DC Phenazopyridine HCl (Pyridium) 100 mg TID PO Last administered on 12/28/17at 07: 52; Start 12/26/17 at 14:00; Stop 12/28/17 at 13:00; Status DC Artificial Tears (Refresh Classic) 1 drop TID OU ; Start 12/26/17 at 17:00; Stop 12/26/17 at 17:00; Status DC Artificial Tears (Refresh Classic) 1 drop TID OU Last administered on at 07:45; Start 12/26/17 at 17:00; Stop 01/14/18 at 14:01; Status DC Risperidone (RisperDAL) 0.5 mg HS PO Last administered on 12/29/17at 21:33; Start 12/26/17 at 22:30; Stop 12/30/17 at 18:50; Status DC Trazodone HCl (Desyrel) 50 mg PRN QHS PRN PO INSOMNIA; Start 12/26/17 at 22:30 ; Stop 01/14/18 at 14:01; Status DC Estradiol (Estrace) 1 speedy QMTH@2100 VG Last administered on 01/08/18at 20:47; Start 12/29/17 at 21:00; Stop 01/14/18 at 14:01; Status DC Benztropine Mesylate (Cogentin) 0.5 mg BID PO Last administered on 01/07/18at 08 :17; Start 12/30/17 at 21:00; Stop 01/07/18 at 16:46; Status DC Olanzapine (ZyPREXA) 10 mg HS PO Last administered on 01/06/18at 19:46; Start at 21:00; Stop 01/07/18 at 16:46; Status DC Risperidone (RisperDAL) 1 mg HS PO Last administered on 01/05/18at 20:28; Start 12/30/17 at 21:00; Stop 01/06/18 at 17:55; Status DC [place] Carbonate 450 mg HS PO Last administered on 01/13/18at 20:23; Start at 21:00; Stop 01/14/18 at 14:01; Status DC [place] Carbonate 300 mg DAILY PO Last administered on 01/14/18at 07:45; Start 12/31/17 at 09:00; Stop 01/14/18 at 14:01; Status DC Olanzapine (ZyPREXA) 5 mg DAILY PO Last administered on 01/04/18at 07:53; Start 01/03/18 at 09:00; Stop 01/04/18 at 18:24; Status DC Risperidone (RisperDAL) 1.5 mg HS PO Last administered on 01/13/18at 20:23; Start 01/06/18 at 21:00; Stop 01/14/18 at 14:01; Status DC Benztropine Mesylate (Cogentin) 0.5 mg HS PO Last administered on 01/13/18at 20: 24; Start 01/07/18 at 21:00; Stop 01/14/18 at 14:01; Status DC Olanzapine (ZyPREXA) 5 mg QHS PO Last administered on 01/12/18at 20:09; Start at 21:00; Stop 01/13/18 at 18:44; Status DC Active Scripts Active Reported Maalox Advanced Suspension (Mag Hydrox/Aluminum Hyd/Simeth) 355 Ml Oral.susp 15 Ml PO PRN AFTMEALHC PRN Analgesic Tina (Methyl Salicylate/Menthol) 28 Gm Oint...g. 1 Speedy TP PRN QID PRN [place] Carbonate 300 Mg Capsule 450 Mg PO QHS Benztropine Mesylate 0.5 Mg Tablet 0.5 Mg PO QHS Risperidone 1 Mg Tablet 1.5 Mg PO QHS Refresh Classic Eye Drops (Polyvinyl Alcohol/Povidone/Pf) 1 Each Droperette 1 Each OU TID Culturelle (Lactobacillus Rhamnosus Gg) 1 Each Cap.sprink 1 Each PO BID Trazodone Hcl 50 Mg Tablet 50 Mg PO PRN QHS PRN Trazodone Hcl 50 Mg Tablet 50 Mg PO HS Tegretol (Carbamazepine) 200 Mg Tablet 300 Mg PO BID Sorbitol (Sorbitol Solution) 1 Ml Solution 1 Ml MC Norvasc (Amlodipine Besylate) 5 Mg Tablet 5 Mg PO DAILY [place]-128 (Sodium Chloride) 15 Ml Drops 1 Drop OD HS Miralax (Polyethylene Glycol 3350) 17 Gm Powd.pack 17 Gm PO DAILY Milk Of Magnesia (Magnesium Hydroxide) 2,400 Mg/10 Ml Oral.susp 2,400 Mg PO PRN DAILY PRN [place] Carbonate 300 Mg Tablet 300 Mg PO DAILY Lipitor (Atorvastatin Calcium) 20 Mg Tablet 20 Mg PO QHS Levothyroxine Sodium 75 Mcg Tablet 75 Mcg PO DAILYAC Estrace (Estradiol) 42.5 Gm Cream.appl 1 Gm VG HS QMON/ Insert at bedtime on Friday and Vitamin D2 (Ergocalciferol (Vitamin D2)) 50,000 Unit Capsule 50,000 Unit PO WEEKLY Endocet 10-325 Mg Tablet (Oxycodone Hcl/Acetaminophen) 1 Each Tablet 1 Tab PO PRN Q6HRS PRN Tylenol (Acetaminophen) 325 Mg Tablet 650 Mg PO PRN Q6HRS PRN I have reviewed the current psychotropics carefully including drug interactions. Risk benefit ratio favors no change other than as noted in my dictated progress note. 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
--- NOTE | 2018-01-15 21:30 | DS ---
DATE OF DISCHARGE: 01/14/2018 DISCHARGE SUMMARY/PSYCHIATRIC PROGRESS NOTE This late entry 01/14/2018 covers elements not covered in my initial note. REASON FOR ADMISSION: Please refer to the admission history for details. Briefly, the patient is a 67-year-old female referred to us from [facility] on account of increased agitation, aggression, being hyperverbal, irritable, having marked insomnia, throwing things if she does not get her way and having explosive behaviors. This is within the context of a history of bipolar disorder, mixed with psychotic features versus manic with psychotic features. SIGNIFICANT FINDINGS AND CLINICAL COURSE: Following admission, the patient was seen daily individually by myself, followed medically per Dr. Jacome/Dr. Zelaya. She initially remained extremely hyperverbal, erratic, loud, disruptive, psychotic. She is difficult to redirect. Adjustments were made in her psychotropics. She seemed to respond to a combination of lithium carbonate 450 mg at bedtime with a blood level of 0.8, BuSpar p.r.n. was continued, Cogentin 0.5 mg at bedtime, lithium carbonate 300 mg in the morning, Tegretol 300 mg b.i.d. with a level of 10.2. Trazodone 50 mg at bedtime p.r.n., may repeat x 1. Zyprexa 5 mg at bedtime, which was discontinued prior to her discharge and was changed to Risperdal 1.5 mg p.o. at bedtime. Gradually mood appeared to improve. She was much less manic, grandiose, labile, more appropriate, pleasant, cooperative, not aggressive or aggressive and psychotic symptoms seemed to have resolved. CONDITION AT DISCHARGE: Improved. REVIEW OF SYSTEMS: No CV, , pulmonary, eye, ENT system symptoms on review. MENTAL STATUS EXAM: Oriented to herself and situation. Speech coherent, less pressured. Abstraction fair, computation impaired, language function intact, attention span short. Mood and affect showing significant improvement. LABORATORY DATA: Reviewed. FINAL DIAGNOSES: Bipolar 1 disorder, mixed with psychotic features; anxiety disorder, unspecified; impulse control disorder, unspecified. Rest unchanged from admission. DISCHARGE MEDICATIONS: Please refer to the MRAD. DISCHARGE INSTRUCTIONS: Outpatient psychiatric and medical followup at the [facility]. Time for discharge day management greater than 30 minutes. MAN Rox WATT MD DR: Abram JOB#: [id number] / [id number]
== END 2018-01-14 12:52 | DRG 885 ==
LOC: ER 22:14 → GEROPSY 12-26 04:41
PROVIDERS: ADMIT Psychiatry & Neurology Psychiatry; ATTEND Psychiatry & Neurology Psychiatry
PROC: 2W3JX1Z Immobilization of Right Finger using Splint (ICD-10-PCS; principal; 2017-12-26)
DX: F25.0 Schizoaffective disorder, bipolar type (principal); N39.0 Urinary tract infection, site not specified; F63.9 Impulse disorder, unspecified; F41.9 Anxiety disorder, unspecified; E03.9 Hypothyroidism, unspecified; E11.9 Type 2 diabetes mellitus without complications; E78.5 Hyperlipidemia, unspecified; S63.256A Unspecified dislocation of right little finger, initial encounter; X58.XXXA Exposure to other specified factors, initial encounter; G47.30 Sleep apnea, unspecified; F09 Unspecified mental disorder due to known physiological condition; F02.80 Dementia in other diseases classified elsewhere, unspecified severity, without behavioral disturbance, psychotic disturbance, mood disturbance, and anxiety; I10 Essential (primary) hypertension; G47.00 Insomnia, unspecified; M19.90 Unspecified osteoarthritis, unspecified site; M81.0 Age-related osteoporosis without current pathological fracture; Z79.899 Other long term (current) drug therapy; Z91.81 History of falling; Z88.8 Allergy status to other drugs, medicaments and biological substances; Y93.89 Activity, other specified; Y92.89 Other specified places as the place of occurrence of the external cause; Y99.8 Other external cause status
CPT/HCPCS: 36415; 70450; 71045; 73130; 80048; 80053; 80061; 80076; 80156; 80178; 80307; 81001; 82306; 82553; 82607; 83036; 83540; 83550; 83690; 83735; 83880; 84436; 84443; 84480; 84484; 85025; 85610; 85651; 85730; 86592; 87086; 93005; 96360; J7120; 99285-25; G0479

== ENCOUNTER 2018-02-12 19:01 | Inpatient (IN) | payer MEDICARE ==
[~2018-02-12] VITALS: Ht 162.6 cm; Wt 81.4 kg
[~2018-02-12 19:01] MED LIST: ACET325T9 PO; AMLO5TAB4 PO; ATOR20TA PO; BENZ0.5T32 PO; BENZ1TAB5 PO; BUSP5TAB PO; CARB200T PO; DEXT15DR5 EACHEYE; DUREZOL; ERGO500027 PO; ESTR42.53 VG; LACT1CAP19 PO; LEVO75TA5 PO; LITH150C PO; LITH300C PO; LITH300T3 PO; MAG355OR11 PO; MAGN2400 PO; METH29OI TP; OLAN10TA3 PO; OLAN20TA3 PO; OXYC-317 PO; POLY17PO5 PO; POLY1DRO3 OU; RISP1TAB3 PO; SODI15DR4 OD; SORB1SOL MC; TRAZ-85 PO
--- NOTE | 2018-02-12 20:07 | PHYS DOC ---
Past History Past Medical History: Arthritis, Bipolar, Constipation, Dementia, Depression, Diabetes, Hypertension, Hypothyroid, UTI, Other Past Surgical History: Other Alcohol Use: None Drug Use: None Adult General Chief Complaint Chief Complaint: PSYCH EVALUATION HPI HPI Patient is a 67 year old female who presents to the emergency department for medical clearance prior to psychiatric admission. The patient has been accepted to the [facility] health unit here at [facility]. Patient reportedly has been displaying paranoia and has not been wanting to leave her room at her custodial. alf does not report any fever, vomiting, or other known somatic symptoms. The patient states that she thinks she may have a urinary tract infection but denies any other symptoms currently including pain, vomiting, or fever. Review of Systems Review of Systems Constitutional: Denies fever or chills [] Eyes: Denies change in visual acuity, redness, or eye pain [] HENT: Denies nasal congestion or sore throat [] Respiratory: Denies cough or shortness of breath [] Cardiovascular: Denies chest pain or edema[] GI: Denies abdominal pain, nausea, vomiting, bloody stools or diarrhea [] : Foul-smelling urine[] Musculoskeletal: Denies back pain or joint pain [] Integument: Denies rash or skin lesions [] Neurologic: Denies headache, focal weakness or sensory changes [] All other systems were reviewed and found to be within normal limits, except as documented in this note. Allergies Allergies Allergies Coded Allergies Type Severity Reaction Last Updated Verified Benzodiazepines Allergy Intermediate Unknown 12/29/17 Yes clonazepam Allergy Intermediate Unknown 12/29/17 Yes lorazepam Allergy Intermediate Unknown 12/29/17 Yes Physical Exam Physical Exam Constitutional: Alert, afebrile, no acute distress. [] HENT: Normocephalic, atraumatic, bilateral external ears normal, oropharynx moist, no oral exudates, nose normal. [] Eyes: PERRLA, EOMI, conjunctiva normal, no discharge. [] Neck: Normal range of motion, no tenderness, supple, no stridor. [] Cardiovascular:Heart rate regular rhythm, no murmur [] Lungs & Thorax: Bilateral breath sounds clear to auscultation [] Abdomen: Bowel sounds normal, soft, no tenderness, no masses, no pulsatile masses. [] Skin: Warm, dry, no erythema, no rash. [] Back: No tenderness, no CVA tenderness. [] Extremities: No tenderness, no cyanosis, no clubbing, ROM intact, no edema. [] Neurologic: Alert and oriented to person, mild dysarthria, normal motor function , normal sensory function, no focal deficits noted. [] Current Patient Data Vital Signs Vital Signs Date Time Temp Pulse Resp B/P (MAP) Pulse Ox O2 Delivery O2 Flow Rate FiO2 02/12/18 19:21 99.0 80 20 158/92 (114) 98 Room Air Lab Results Laboratory Tests Test 02/12/18 19:25 White Blood Count 7.1 x10^3/uL Red Blood Count 4.38 x10^6/uL Hemoglobin 13.7 g/dL Hematocrit 39.4 % Mean Corpuscular Volume 90 fL Mean Corpuscular Hemoglobin 31 pg Mean Corpuscular Hemoglobin Concent 35 g/dL Red Cell Distribution Width 13.0 % Platelet Count 219 x10^3/uL Neutrophils (%) (Auto) 69 % Lymphocytes (%) (Auto) 19 % Monocytes (%) (Auto) 10 % Eosinophils (%) (Auto) 2 % Basophils (%) (Auto) 1 % Neutrophils # (Auto) 5.0 x10^3uL Lymphocytes # (Auto) 1.3 x10^3/uL Monocytes # (Auto) 0.7 x10^3/uL Eosinophils # (Auto) 0.1 x10^3/uL Basophils # (Auto) 0.0 x10^3/uL Urine Collection Type Unknown Urine Color Yellow Urine Clarity Cloudy Urine pH 7.0 Urine Specific [place] 1.010 Urine Protein Neg Urine Glucose (UA) Neg mg/dL Urine Ketones (Stick) Neg mg/dL Urine Blood Neg Urine Nitrite Neg Urine Bilirubin Neg Urine Urobilinogen Dipstick 0.2 mg/dL Urine Leukocyte Esterase Mod Urine RBC 0 /HPF Urine WBC 5-10 /HPF Urine Squamous Epithelial Cells Many /LPF Urine Bacteria Many /HPF Sodium Level 137 mmol/L Potassium Level 3.7 mmol/L Chloride Level 105 mmol/L Carbon Dioxide Level 23 mmol/L Anion Gap 9 Blood Urea Nitrogen 8 mg/dL Creatinine 0.8 mg/dL Estimated GFR (Cockcroft-Gault) 71.3 BUN/Creatinine Ratio 10 Glucose Level 106 mg/dL Calcium Level 10.8 mg/dL Magnesium Level 1.8 mg/dL Total Bilirubin 0.4 mg/dL Aspartate Amino Transf (AST/SGOT) 17 U/L Alanine Aminotransferase (ALT/SGPT) 19 U/L Alkaline Phosphatase 147 U/L Total Protein 7.4 g/dL Albumin 3.6 g/dL Albumin/Globulin Ratio 0.9 EKG EKG Interpreted by me: Heart rate 69, sinus rhythm, normal intervals, normal axis, no acute ST/T-wave abnormalities present[] Radiology/Procedures Radiology/Procedures Not performed[] Course & Med Decision Making Course & Med Decision Making Pertinent Labs and Imaging studies reviewed. (See chart for details) Patient's dysarthria confirmed to be stable. Urinalysis shows a small amount of white blood cells but shows many squamous epithelial cells. This is likely a contaminated sample. I do not see hard evidence of urinary tract infection. We' ll withhold antibiotic treatment. The patient was medically cleared for admission to the [facility] unit.[] Dragon Disclaimer Dragon Disclaimer This electronic medical record was generated, in whole or in part, using a voice recognition dictation system. Departure Departure: Impression: Primary Impression: Medical clearance for psychiatric admission Disposition: ADMITTED INPATIENT Admitting Physician: Other Condition: STABLE Referrals: ROOPA SEWELL DO (PCP) MARIOLA RODRIGUEZ MD Feb 12, 2018 20:07
[2018-02-12 20:08] LABS: BASO % 1 % (0-3); EOS # 0.1 x10^3/uL (0.0-0.7); EOS % 2 % (0-3); HEMATOCRIT 39.4 % (36.0-47.0); HEMOGLOBIN 13.7 g/dL (12.0-15.5); LYMPH # 1.3 x10^3/uL (1.0-4.8); LYMPH % 19 % (24-48); MEAN CORPUSCULAR HEMOGLOBIN 31 pg (25-35); MEAN CORPUSCULAR HGB CONC 35 g/dL (31-37); MEAN CORPUSCULAR VOLUME 90 fL (79-100); MONO # 0.7 x10^3/uL (0.0-1.1); MONO % 10 % (0-9); NEUT % 69 % (31-73); PLATELET COUNT 219 x10^3/uL (140-400); RED BLOOD COUNT 4.38 x10^6/uL (3.50-5.40); WHITE BLOOD COUNT 7.1 x10^3/uL (4.0-11.0)
[2018-02-12 20:20] LABS: CLARITY,URINE CLOUDY; COLOR,URINE YELLOW
[2018-02-12 20:21] LABS: BACTERIA,URINE MANY /HPF (0-FEW); BILIRUBIN,URINE NEG (NEG); GLUCOSE,URINE NEG (NEG); NITRITE,URINE NEG (NEG); RBC,URINE 0 /HPF (0-2); SQUAMOUS EPITHELIAL CELL,UR MANY /LPF; UROBILINOGEN,URINE 0.2 mg/dL (0.2 mg/dL)
[2018-02-12 20:26] LABS: ALBUMIN 3.6 g/dL (3.4-5.0); ALBUMIN/GLOBULIN RATIO 0.9 (1.0-1.7); CALCIUM 10.8 mg/dL (8.5-10.1); CREATININE 0.8 mg/dL (0.6-1.0); GFR 71.3; MAGNESIUM 1.8 mg/dL (1.8-2.4); POTASSIUM 3.7 mmol/L (3.5-5.1); TOTAL BILIRUBIN 0.4 mg/dL (0.2-1.0); TOTAL PROTEIN 7.4 g/dL (6.4-8.2)
[2018-02-12] MEDS ORDERED: ACETAMINOPHEN 325 MG TABLET PO PRN ×2 (21:45→22:30)
[2018-02-12] MEDS ORDERED: MAG HYDROX/AL HYDROX/SIMETH 30 ML ORAL.SUSP PO PRN (21:45)
[2018-02-12] MEDS ORDERED: MAGNESIUM HYDROXIDE 2,400 MG/30 ML ORAL.SUSP. PO PRN (21:45)
[2018-02-12] MEDS ORDERED: METHYL SALICYLATE/MENTHOL TOPICAL OINTMENT 29GM TUBE. TP PRN ×2 (21:45→22:30)
[2018-02-12 22:10] VITALS: BP 146/84
[2018-02-12] MEDS ORDERED: CYAN10005 PO (22:18)
[2018-02-12] MEDS ORDERED: MAGN2400 PO (22:18)
[2018-02-12] MEDS ORDERED: RISP1TAB3 PO (22:18)
[2018-02-12] MEDS ORDERED: LEVO75TA5 PO (22:18)
[2018-02-12] MEDS ORDERED: OXYC-317 PO (22:18)
[2018-02-12] MEDS ORDERED: LITH450T16 PO (22:18)
[2018-02-12] MEDS ORDERED: SORB1SOL PO (22:18)
[2018-02-12] MEDS ORDERED: ACET325T9 PO (22:18)
[2018-02-12] MEDS ORDERED: BENZ0.5T32 PO (22:18)
[2018-02-12] MEDS ORDERED: POLY17PO5 PO (22:18)
[2018-02-12] MEDS ORDERED: ERGO500027 PO (22:18)
[2018-02-12] MEDS ORDERED: SODI3.5O3 OP (22:18)
[2018-02-12] MEDS ORDERED: ATOR20TA PO (22:18)
[2018-02-12] MEDS ORDERED: ESTR42.53 VG (22:18)
[2018-02-12] MEDS ORDERED: CARB200T PO (22:18)
[2018-02-12] MEDS ORDERED: TRAZ-85 PO (22:18)
[2018-02-12] MEDS ORDERED: LITH150C PO (22:18)
[2018-02-12] MEDS ORDERED: AMLO5TAB4 PO (22:18)
[2018-02-12] MEDS ORDERED: oxyCODONE/APAP 10/325 1 TAB TABLET PO PRN (22:30)
[2018-02-12] MEDS ORDERED: NON FORMULARY ITEM (Magnesium Hydroxide (Milk Of Magnesia) 2,400 MG) PO PRN (22:30)
[2018-02-12] MEDS ORDERED: SORBITOL 70% 30 ML SOLUTION. PO PRN (22:30)
[2018-02-12] MEDS ORDERED: NON FORMULARY ITEM (Mag Hydrox/Aluminum Hyd/Simeth (Maalox Advanced Suspension) 15 ML) PO PRN (22:30)
[2018-02-13 05:52] VITALS: BP 152/78
[2018-02-13] MEDS ORDERED: LEVOTHYROXINE 75 MCG TABLET PO SCH (07:30)
[2018-02-13] MEDS ORDERED: carBAMazepine 200 MG TABLET PO SCH (09:00)
[2018-02-13] MEDS: LITHIUM CARBONATE 300 MG TABLET PO SCH ×3 (09:42→19:53)
[2018-02-13] MEDS: CYANOCOBALAMIN (VITAMIN B-12) 1,000 MCG TABLET. PO SCH ×2 (09:42→12:20)
[2018-02-13] MEDS: amLODIPine BESYLATE 5 MG TABLET PO SCH ×2 (09:42→16:10)
[2018-02-13] MEDS: BENZTROPINE MESYLATE 0.5 MG TABLET PO SCH ×3 (09:42→19:51)
[2018-02-13] MEDS: POLYETHYLENE GLYCOL 3350 17 GM PACKET. PO SCH ×2 (09:42→12:20)
[2018-02-13] MEDS: LACTOBACILLUS RHAMNOSUS GG 1 CAPSULE. PO SCH ×3 (09:42→19:51)
[2018-02-13] MEDS: carBAMazepine 100 MG TAB.CHEW PO SCH ×3 (09:43→19:54)
[2018-02-13] MEDS: POLYVINYL ALCOHOL/POVIDONE/PF OPHTH SOLUTION DROPERETTE. OU SCH ×4 (09:43→19:51)
[2018-02-13] MEDS ORDERED: SORBITOL 70% 30 ML SOLUTION. PO PRN (11:00)
[2018-02-13 16:05] VITALS: BP 162/102
[2018-02-13] MEDS: traZODone 50 MG TABLET. PO SCH (19:51)
[2018-02-13] MEDS: ATORVASTATIN CALCIUM 20 MG TABLET PO SCH (19:53)
[2018-02-13] MEDS: SODIUM CHLORIDE 5% OPHTH OINTMENT 3.5GM TUBE. OD SCH (19:54)
--- NOTE | 2018-02-13 20:47 | PDOC ---
Exam Note: Julian Note: Please also refer to the separate dictated note~for this date of service dictated separately.~Patient seen individually. Discussed the patient with Nursing staff reviewed the chart.~Reviewed interim history and current functioning. Reviewed vital signs,~Labs/ Radiology~and current medications noted below. Continue current treatment with the changes noted in the dictated addendum note Assessment: Vital Signs: Vital Signs Date Time Temp Pulse Resp B/P (MAP) Pulse Ox O2 Delivery O2 Flow Rate FiO2 02/13/18 16:10 90 162/102 02/13/18 16:05 98.7 20 96 Room Air I&O Intake and Output 02/13/18 07:00 Intake Total 0 ml Balance 0 ml Intake Oral 0 ml Labs: Laboratory Tests Test 02/12/18 21:00 02/13/18 11:30 Triglycerides Level 110 mg/dL (0-150) Cholesterol Level 196 mg/dL (0-200) LDL Cholesterol, Calculated 103 mg/dL (0-100) H VLDL Cholesterol, Calculated 22 mg/dL (0-40) Non-HDL Cholesterol Calculated 125 mg/dL (0-129) HDL Cholesterol 71 mg/dL (40-60) H Cholesterol/HDL Ratio 2.0 25-Hydroxy Vitamin D Total 90.9 ng/mL (30-100) [place] Level 0.8 mmol/L (0.6-1.2) [place] Last Dose Date 02/12/18 [place] Last Dose Time 0900 Treponema pallidum Antibody Nonreactive (Nonreactive) Carbamazepine (Tegretol) Level 6.0 mcg/mL (4.0-12.0) Carbamazepine Last Dose Date 02/12/18 Carbamazepine Last Dose Time 0900 Current Medications: Meds: Current Medications Acetaminophen (Tylenol) 650 mg PRN Q6HRS PRN PO PAIN / TEMP; Start 02/12/18 at 21:45 Multi-Ingredient Ointment (Analgesic [place]) 1 speedy PRN QID PRN TP MUSCLE PAIN; Start 02/12/18 at 21:45 Al Hydroxide/Mg Hydroxide (Mylanta Plus Xs) 15 ml PRN AFTMEALHC PRN PO DYSPEPSIA; Start 02/12/18 at 21:45 Magnesium Hydroxide (Milk Of Magnesia) 2,400 mg PRN QHS PRN PO CONSTIPATION; Start 02/12/18 at 21:45 Carbamazepine (TEGretol) 150 mg BID PO ; Start 02/13/18 at 09:00; Stop 02/13/18 at 09:00; Status DC Carbamazepine (TEGretol) 300 mg BID PO Last administered on 02/13/18at 19:54; Start 02/13/18 at 09:00 Oxycodone/ Acetaminophen (Percocet 10/325) 1 tab PRN Q6HRS PRN PO PAIN; Start 02/12/18 at 22:30 Oxycodone/ Acetaminophen (Percocet 10/325) 1 tab PRN Q6HRS PRN PO PAIN; Start 02/12/18 at 22:30; Stop 02/12/18 at 22:40; Status DC Benztropine Mesylate (Cogentin) 0.5 mg BID PO Last administered on 02/13/18at 19 :51; Start 02/13/18 at 09:00 [place] Carbonate 300 mg DAILY PO ; Start 02/13/18 at 09:00 [place] Carbonate 450 mg QHS PO Last administered on 02/13/18 19:53; Start at 21:00 Risperidone (RisperDAL) 1 mg QHS PO Last administered on 02/13/18 19:52; Start 02/13/18 at 21:00 Trazodone HCl (Desyrel) 50 mg QHS PO Last administered on 02/13/18 19:51; Start 02/13/18 at 21:00 Acetaminophen (Tylenol) 650 mg PRN Q6HRS PRN PO PAIN / TEMP; Start 02/12/18 at 22:30; Stop 02/12/18 at 22:32; Status DC Atorvastatin Calcium (Lipitor) 20 mg QHS PO Last administered on 02/13/18at 19: 53; Start 02/13/18 at 21:00 Cyanocobalamin (Vitamin B-12) 1,000 mcg DAILY PO ; Start 02/13/18 at 09:00 Estradiol (Estrace) 1 speedy HS VG ; Start 02/13/18 at 21:00 Lactobacillus Rhamnosus (Culturelle) 1 cap BID PO Last administered on at 19:51; Start 02/13/18 at 09:00 Levothyroxine Sodium (Synthroid) 75 mcg DAILYAC PO Last administered on at 09:42; Start 02/13/18 at 07:30; Stop 02/13/18 at 11:19; Status DC Multi-Ingredient Ointment (Analgesic [place]) 1 speedy PRN QID PRN TP MUSCLE PAIN; Start 02/12/18 at 22:30 Sodium Chloride (Elmer) 1 inch HS OD Last administered on 02/13/18at 19:54; Start 02/13/18 at 21:00 Sorbitol (Sorbitol Solution) 1 ml PRN DAILY PRN PO CONSTIPATION; Start at 22:30 Amlodipine Besylate (Norvasc) 5 mg DAILY PO Last administered on 02/13/18at 16: 10; Start 02/13/18 at 09:00 Vitamin D (Vitamin D3) 50,000 unit WEEKLY PO ; Start 02/19/18 at 09:00 Non-Formulary Medication (Mag Hydrox/ Aluminum Hyd/ Simeth (Maalox Advanced Suspension)) 15 ml PRN AFTMEALHC PRN PO DYSPEPSIA; Start 02/12/18 at 22:30; Stop 02/12/18 at 22:41; Status DC Non-Formulary Medication (Magnesium Hydroxide (Milk Of Magnesia)) 2,400 mg PRN DAILY PRN PO CONSTIPATION; Start 02/12/18 at 22:30; Stop 02/12/18 at 22:41; Status DC Polyethylene Glycol (miraLAX) 17 gm DAILY PO ; Start 02/13/18 at 09:00 Artificial Tears (Refresh Classic) 1 drop TID OU Last administered on at 19:51; Start 02/13/18 at 09:00 Non-Formulary Medication (Sodium Chloride (Elmer-128)) 1 drop HS OD ; Start 02/13 at 21:00; Stop 02/13/18 at 21:00; Status DC Levothyroxine Sodium (Synthroid) 75 mcg DAILY06 PO ; Start 02/14/18 at 06:00 Sorbitol (Sorbitol Solution) 30 ml PRN DAILY PRN PO CONSTIPATION; Start at 11:00 Active Scripts Active Reported Sorbitol (Sorbitol Solution) 1 Ml Solution 30 Ml PO PRN DAILY PRN Trazodone Hcl 50 Mg Tablet 50 Mg PO QHS Tegretol (Carbamazepine) 200 Mg Tablet 150 Mg PO BID Risperidone 1 Mg Tablet 1 Mg PO QHS Norvasc (Amlodipine Besylate) 5 Mg Tablet 5 Mg PO DAILY Elmer-128 (Sodium Chloride) 3.5 Gm Oint...g. 1 Speedy OP HS Miralax (Polyethylene Glycol 3350) 17 Gm Powd.pack 17 Gm PO DAILY Milk Of Magnesia (Magnesium Hydroxide) 2,400 Mg/10 Ml Oral.susp 30 Ml PO PRN DAILY PRN [place] Carbonate 450 Mg Tablet.er 450 Mg PO HS [place] Carbonate 150 Mg Capsule 300 Mg PO DAILY Lipitor (Atorvastatin Calcium) 20 Mg Tablet 20 Mg PO QHS Levothyroxine Sodium 75 Mcg Tablet 75 Mcg PO DAILYAC Estrace (Estradiol) 42.5 Gm Cream.appl 1 Speedy VG 2X WEEK Q MON, THURS Vitamin D2 (Ergocalciferol (Vitamin D2)) 50,000 Unit Capsule 50,000 Unit PO WEEKLY Endocet 10-325 Mg Tablet (Oxycodone Hcl/Acetaminophen) 1 Each Tablet 1 Each PO PRN Q6HRS PRN Vitamin B-12 (Cyanocobalamin (Vitamin B-12)) 1,000 Mcg Tablet 1,000 Mcg PO DAILY Benztropine Mesylate 0.5 Mg Tablet 0.5 Mg PO BID Tylenol (Acetaminophen) 325 Mg Tablet 650 Mg PO PRN Q6HRS PRN Maalox Advanced Suspension (Mag Hydrox/Aluminum Hyd/Simeth) 355 Ml Oral.susp 15 Ml PO PRN AFTMEALHC PRN Analgesic [place] (Methyl Salicylate/Menthol) 28 Gm Oint...g. 1 Speedy TP PRN QID PRN [place] Carbonate 300 Mg Capsule 450 Mg PO QHS Benztropine Mesylate 0.5 Mg Tablet 0.5 Mg PO QHS Risperidone 1 Mg Tablet 1.5 Mg PO QHS Refresh Classic Eye Drops (Polyvinyl Alcohol/Povidone/Pf) 1 Each Droperette 1 Each OU TID Culturelle (Lactobacillus Rhamnosus Gg) 1 Each Cap.sprink 1 Each PO BID Trazodone Hcl 50 Mg Tablet 50 Mg PO PRN QHS PRN Trazodone Hcl 50 Mg Tablet 50 Mg PO HS Tegretol (Carbamazepine) 200 Mg Tablet 300 Mg PO BID Norvasc (Amlodipine Besylate) 5 Mg Tablet 5 Mg PO DAILY Elmer-128 (Sodium Chloride) 15 Ml Drops 1 Drop OD HS Miralax (Polyethylene Glycol 3350) 17 Gm Powd.pack 17 Gm PO DAILY Milk Of Magnesia (Magnesium Hydroxide) 2,400 Mg/10 Ml Oral.susp 2,400 Mg PO PRN DAILY PRN [place] Carbonate 300 Mg Tablet 300 Mg PO DAILY Lipitor (Atorvastatin Calcium) 20 Mg Tablet 20 Mg PO QHS Levothyroxine Sodium 75 Mcg Tablet 75 Mcg PO DAILYAC Estrace (Estradiol) 42.5 Gm Cream.appl 1 Gm VG HS QMON/ Insert at bedtime on Friday and Vitamin D2 (Ergocalciferol (Vitamin D2)) 50,000 Unit Capsule 50,000 Unit PO WEEKLY Endocet 10-325 Mg Tablet (Oxycodone Hcl/Acetaminophen) 1 Each Tablet 1 Tab PO PRN Q6HRS PRN Tylenol (Acetaminophen) 325 Mg Tablet 650 Mg PO PRN Q6HRS PRN I have reviewed the current psychotropics carefully including drug interactions. Risk benefit ratio favors no change other than as noted in my dictated progress note. 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
--- NOTE | 2018-02-13 20:57 | EKG ---
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
[2018-02-13] MEDS ORDERED: ESTRADIOL 0.01% VAGINAL CREAM 42.5GM TUBE. VG SCH (21:00)
[2018-02-13] MEDS ORDERED: SODIUM CHLORIDE OD SCH (21:00)
[2018-02-13] MEDS ORDERED: [UNRECOGNIZED DRUG - OTHER] OD SCH (21:00)
[2018-02-13] MEDS ORDERED: risperiDONE 1 MG TABLET. PO SCH (21:00)
[2018-02-14 04:12] LABS: HEMOGLOBIN A1C 5.2 % (4.8-5.6)
[2018-02-14 05:54] VITALS: BP 127/74
[2018-02-14] MEDS: LEVOTHYROXINE 75 MCG TABLET PO SCH (05:59)
[2018-02-14] MEDS: POLYVINYL ALCOHOL/POVIDONE/PF OPHTH SOLUTION DROPERETTE. OU SCH ×4 (08:17→19:41)
[2018-02-14] MEDS: POLYETHYLENE GLYCOL 3350 17 GM PACKET. PO SCH ×2 (08:17→12:15)
[2018-02-14] MEDS: LACTOBACILLUS RHAMNOSUS GG 1 CAPSULE. PO SCH ×3 (08:17→19:42)
[2018-02-14] MEDS: BENZTROPINE MESYLATE 0.5 MG TABLET PO SCH ×3 (08:17→19:41)
[2018-02-14] MEDS: amLODIPine BESYLATE 5 MG TABLET PO SCH ×2 (08:18→12:15)
[2018-02-14] MEDS: CYANOCOBALAMIN (VITAMIN B-12) 1,000 MCG TABLET. PO SCH ×2 (08:18→12:15)
[2018-02-14] MEDS: LITHIUM CARBONATE 300 MG TABLET PO SCH ×3 (08:18→19:41)
[2018-02-14] MEDS: carBAMazepine 100 MG TAB.CHEW PO SCH ×3 (08:18→19:46)
--- NOTE | 2018-02-14 13:23 | CONS ---
DATE OF CONSULTATION: 02/13/2018 REASON FOR CONSULTATION: Consult for medical management. HISTORY OF PRESENT ILLNESS: The patient is a 67-year-old female patient, a resident at [facility], who was [facility] on account of being very depressed, sleeping too much, hearing voices, telling her, she cannot get up, paranoid, does not want to live anymore without her , who is extremely ill and despite outpatient psychiatric treatment that has failed and she was admitted for inpatient psychiatric stabilization. On questioning her, she actually denied any complaint. PAST MEDICAL HISTORY: Significant for hypertension, hyperlipidemia, vitamin D deficiency, chronic constipation, obstructive sleep apnea, dysphagia, and muscle weakness. PAST PSYCHIATRIC HISTORY: Significant for bipolar disorder, mood disorder, panic disorder, insomnia and cognitive communication deficits. PAST SURGICAL HISTORY: Unremarkable. ALLERGIES: She is allergic to BENZODIAZEPINE, CLONAZEPAM AND LORAZEPAM. MEDICATIONS: She is currently on following medications: She is on atorvastatin calcium 20 mg at bedtime, amlodipine besylate 5 mg daily, analgesic balm applied topically 4 times a day, oxycodone/APAP 10/325 one tablet every 6 hours, Tylenol 650 mg every 6 hours, carbamazepine 150 mg p.o. b.i.d., trazodone 50 mg at bedtime, risperidone 1 mg at bedtime, lithium carbonate 300 mg p.o. daily and lithium bicarbonate 450 mg at bedtime, benztropine 0.5 mg twice a day, Refresh classic eyedrops 1 drop to both eyes 3 times a day, Maalox 15 mL every 4 hours, milk of magnesia 30 mL p.o. daily p.r.n. for constipation, polyethylene glycol 17 grams daily, sorbitol solution 30 mL p.o. daily p.r.n. for constipation, lactobacillus rhamnosus twice a day, estradiol 1 gram vaginally at bedtime every Friday and . She is on levothyroxine sodium 75 mcg once a day, cyanocobalamin 1000 mcg tablet once a day, ergocalciferol, vitamin D 50,000 units once a week. FAMILY HISTORY: Unremarkable. SOCIAL HISTORY: She is a resident at [facility]. She does not smoke, drink alcohol or use any recreational drugs. REVIEW OF SYSTEMS: As per history of present illness. PHYSICAL EXAMINATION GENERAL: When I examined her, she looked well and was clearly in no apparent respiratory distress, pale, but no jaundice, cyanosis, or thyromegaly. No jugular venous distention. No limb edema. VITAL SIGNS: Her heart rate was 62, blood pressure was 152/78, temperature was 97.3, respiratory rate 20, and oxygen saturation was 92% on room air. HEAD, EYES, EARS, NOSE AND THROAT: Showed normocephalic and atraumatic. NECK: Supple. HEART: Showed normal first and second heart sounds. No gallop, rub or murmur. CHEST: Clear to auscultation. No crepitation or rhonchi. ABDOMEN: Distended, soft, nontender. NEUROLOGIC: She is awake, alert, responding at times appropriately. Cranial nerves intact. EXTREMITIES: She moves extremities without difficulty. She ambulates without assistance or assistive devices. LABORATORY DATA: Showed a serum sodium 137, potassium 3.7, chloride 105, bicarbonate 23, anion gap of 9, BUN 8, creatinine 0.8, estimated GFR was 71 mL per minute. Her glucose was 106, calcium was 10.8, magnesium was 1.8. Total bilirubin, AST, ALT, and alkaline phosphatase were normal. Total protein 7.4, albumin was 3.6. Her white cell count was 7100, hemoglobin 14, hematocrit 40, MCV 90 and platelet count 219,000. Her urinalysis showed the urine was yellow, cloudy with a pH of 7, specific gravity of 1.010. The urine was negative for protein, glucose, ketones, blood, nitrite and leukocyte esterase. There is moderate amount of leukocyte esterase with 0 rbc's, 5-10 wbc's and many bacteria. IMPRESSION: In summary, this is a 67-year-old female patient, a resident at a [facility], who was admitted on account of being very depressed, sleeping too much, hearing voices, telling her, she cannot get up, extremely paranoid, does not want to live without her , all this in a background of bipolar disorder. Her multiple medical problems including hypertension, hyperlipidemia, hypothyroidism, chronic constipation, vitamin D deficiency as well as obstructive sleep apnea. All in all, the patient seems to be stable. All her vital signs are within acceptable range. All her lab work is within acceptable range. She has what seems to be possible urinary tract infection with leukocyturia and bacteriuria; however, the culture results still pending at the time of this dictation. I would probably wait for the culture and sensitivity before starting her on any antibiotics. There are some other lab works that are still pending at the time of this dictation. I obviously will review these and make any necessary recommendation. Thank you, Dr. Pinzon, for allowing me to participate in the care of this patient. TANIA DELGADO MD DR: TRINIDAD/fredrick JOB#: [id number] / [id number]
[2018-02-14 15:54] VITALS: BP 139/89
--- NOTE | 2018-02-14 19:33 | HP ---
ADMIT DATE: 02/13/2018 PSYCHIATRIC ADMISSION HISTORY AND EVALUATION This late entry of 02/13/2018, covers elements not covered in my initial note. I met with the patient in the evening. IDENTIFYING DATA: The patient is a 67-year-old female referred to us from [facility] by Dr. Dago Murphy, her primary care physician on account of being extremely depressed, sleeping much of the time, hearing voices and reportedly the voices are telling her that she cannot get up and that "they are here to get her." She has made statements that she does not want to live. CHIEF COMPLAINT: "No." The patient is not very verbal, remains somewhat paranoid, withdrawn. HISTORY OF PRESENT ILLNESS: The patient has a history of bipolar disorder. She was last here with us about a month ago and returned back to the long term. Over the last couple of weeks, the symptoms have been with worsening depression, isolation, paranoia. She has had sleep and appetite changes, marked withdrawal, refusing to interact. No active suicidal or homicidal ideation. PAST PSYCHIATRIC HISTORY: As noted above. PAST MEDICAL HISTORY: Dysphagia, weakness, cognitive communication deficits, hypertension, hypothyroidism, hyperlipidemia, dry eyes, chronic constipation, vitamin D deficiency, extrapyramidal symptoms, obstructive sleep apnea, history of falls. ACCU-CHEKS: None. DIET: Regular. Takes medications whole, ambulates up ad argelia. CODE STATUS: Full code. UA on 02/12/2018 was negative. CURRENT PSYCHOTROPICS: Cogentin 0.5 mg b.i.d., lithium 300 mg a.m. and 450 at bedtime, level is 0.8; Risperdal 1 mg at bedtime, Tegretol 200 mg b.i.d., level is 6; and trazodone 50 mg at bedtime. CODE STATUS: Full code. ALLERGIES: Ativan, Klonopin and benzodiazepines. FAMILY HISTORY: Noncontributory. SOCIAL HISTORY: The patient lives at [facility]. No alcohol or drug abuse, physical, sexual or elder abuse history is noted. Not known to be a perpetrator. REACTION TO HOSPITALIZATION: The patient accepting of it. ASSETS: Supportive . MENTAL STATUS EXAM: The patient was seen individually evening of 02/13/2018. She is not very verbal and interactive, poor eye contact, difficult to assess orientation. Speech, often responses monosyllabic ____. Abstraction fair, computation unable to do even one step on serial sevens, remembered 0 out of 3 objects at 3 minutes and quite paranoid, psychotic. No active suicidal or homicidal ideation. LABORATORY DATA: Reviewed. IMPRESSION: Bipolar 1 disorder, depressed with psychotic features; anxiety disorder, unspecified; impulse control disorder, unspecified. Rest as above. PLAN: Admit to Geropsychiatry Unit at [facility]. I will see the patient daily individually from a psychiatric standpoint, medical followup with Dr. Jacome/Dr. Zelaya. On further review, her Tegretol level is 10.2 therapeutic. We will go ahead and add Wellbutrin-XL 150 mg a day as an antidepressant. We will make further changes as clinically indicated. MAN Rox WATT MD DR: SANCHEZ/fredrick JOB#: [id number] / [id number]
[2018-02-14] MEDS: SODIUM CHLORIDE 5% OPHTH OINTMENT 3.5GM TUBE. OD SCH (19:40)
[2018-02-14] MEDS: ATORVASTATIN CALCIUM 20 MG TABLET PO SCH (19:41)
[2018-02-14] MEDS: traZODone 50 MG TABLET. PO SCH (19:42)
[2018-02-14] MEDS: risperiDONE 0.5 MG TABLET. PO SCH (19:45)
--- NOTE | 2018-02-14 23:04 | PDOC ---
Exam Note: Julian Note: Please also refer to the separate dictated note~for this date of service dictated separately.~Patient seen individually. Discussed the patient with Nursing staff reviewed the chart.~Reviewed interim history and current functioning. Reviewed vital signs,~Labs/ Radiology~and current medications noted below. Continue current treatment with the changes noted in the dictated addendum note Assessment: Vital Signs: Vital Signs Date Time Temp Pulse Resp B/P (MAP) Pulse Ox O2 Delivery O2 Flow Rate FiO2 02/14/18 15:54 98.1 76 18 139/89 (106) 92 02/14/18 05:54 Room Air I&O Intake and Output 02/14/18 07:00 Intake Total 840 ml Balance 840 ml Intake Oral 840 ml Current Medications: Meds: Current Medications Acetaminophen (Tylenol) 650 mg PRN Q6HRS PRN PO PAIN / TEMP; Start 02/12/18 at 21:45 Multi-Ingredient Ointment (Analgesic [place]) 1 speedy PRN QID PRN TP MUSCLE PAIN; Start 02/12/18 at 21:45 Al Hydroxide/Mg Hydroxide (Mylanta Plus Xs) 15 ml PRN AFTMEALHC PRN PO DYSPEPSIA; Start 02/12/18 at 21:45 Magnesium Hydroxide (Milk Of Magnesia) 2,400 mg PRN QHS PRN PO CONSTIPATION; Start 02/12/18 at 21:45 Carbamazepine (TEGretol) 150 mg BID PO ; Start 02/13/18 at 09:00; Stop 02/13/18 at 09:00; Status DC Carbamazepine (TEGretol) 300 mg BID PO Last administered on 02/14/18at 19:46; Start 02/13/18 at 09:00 Oxycodone/ Acetaminophen (Percocet 10/325) 1 tab PRN Q6HRS PRN PO PAIN; Start 02/12/18 at 22:30 Oxycodone/ Acetaminophen (Percocet 10/325) 1 tab PRN Q6HRS PRN PO PAIN; Start 02/12/18 at 22:30; Stop 02/12/18 at 22:40; Status DC Benztropine Mesylate (Cogentin) 0.5 mg BID PO Last administered on 02/14/18at 19 :41; Start 02/13/18 at 09:00 Carlos Carbonate 300 mg DAILY PO ; Start 02/13/18 at 09:00 Carlos Carbonate 450 mg QHS PO Last administered on 02/14/18at 19:41; Start at 21:00 Risperidone (RisperDAL) 1 mg QHS PO Last administered on 02/13/18at 19:52; Start 02/13/18 at 21:00; Stop 02/14/18 at 19:16; Status DC Trazodone HCl (Desyrel) 50 mg QHS PO Last administered on 02/14/18at 19:42; Start 02/13/18 at 21:00 Acetaminophen (Tylenol) 650 mg PRN Q6HRS PRN PO PAIN / TEMP; Start 02/12/18 at 22:30; Stop 02/12/18 at 22:32; Status DC Atorvastatin Calcium (Lipitor) 20 mg QHS PO Last administered on 02/14/18at 19: 41; Start 02/13/18 at 21:00 Cyanocobalamin (Vitamin B-12) 1,000 mcg DAILY PO ; Start 02/13/18 at 09:00 Estradiol (Estrace) 1 speedy HS VG ; Start 02/13/18 at 21:00; Stop 02/14/18 at 00: 47; Status DC Lactobacillus Rhamnosus (Culturelle) 1 cap BID PO Last administered on at 19:42; Start 02/13/18 at 09:00 Levothyroxine Sodium (Synthroid) 75 mcg DAILYAC PO Last administered on at 09:42; Start 02/13/18 at 07:30; Stop 02/13/18 at 11:19; Status DC Multi-Ingredient Ointment (Analgesic [place]) 1 speedy PRN QID PRN TP MUSCLE PAIN; Start 02/12/18 at 22:30; Status Cancel Sodium Chloride (Elmer) 1 inch HS OD Last administered on 02/14/18at 19:40; Start 02/13/18 at 21:00 Sorbitol (Sorbitol Solution) 1 ml PRN DAILY PRN PO CONSTIPATION; Start at 22:30; Status Cancel Amlodipine Besylate (Norvasc) 5 mg DAILY PO Last administered on 02/13/18at 16: 10; Start 02/13/18 at 09:00 Vitamin D (Vitamin D3) 50,000 unit WEEKLY PO ; Start 02/19/18 at 09:00; Stop at 09:00; Status DC Non-Formulary Medication (Mag Hydrox/ Aluminum Hyd/ Simeth (Maalox Advanced Suspension)) 15 ml PRN AFTMEALHC PRN PO DYSPEPSIA; Start 02/12/18 at 22:30; Stop 02/12/18 at 22:41; Status DC Non-Formulary Medication (Magnesium Hydroxide (Milk Of Magnesia)) 2,400 mg PRN DAILY PRN PO CONSTIPATION; Start 02/12/18 at 22:30; Stop 02/12/18 at 22:41; Status DC Polyethylene Glycol (miraLAX) 17 gm DAILY PO ; Start 02/13/18 at 09:00 Artificial Tears (Refresh Classic) 1 drop TID OU Last administered on at 19:41; Start 02/13/18 at 09:00 Non-Formulary Medication (Sodium Chloride (Elmer-128)) 1 drop HS OD ; Start 02/13 at 21:00; Stop 02/13/18 at 21:00; Status DC Levothyroxine Sodium (Synthroid) 75 mcg DAILY06 PO Last administered on at 05:59; Start 02/14/18 at 06:00 Sorbitol (Sorbitol Solution) 30 ml PRN DAILY PRN PO CONSTIPATION; Start at 11:00 Estradiol (Estrace) 1 speedy QMTH VG ; Start 02/16/18 at 21:00 Info (FLU VACCINE per PROTOCOL) 1 ea PRN 1X PRN MC PER PROTOCOL; Start at 09:00; Status UNV Risperidone (RisperDAL) 1.5 mg QHS PO Last administered on 02/14/18at 19:45; Start 02/14/18 at 21:00 Bupropion HCl (Wellbutrin Xl) 150 mg DAILY PO ; Start 02/15/18 at 09:00 Active Scripts Active Reported Sorbitol (Sorbitol Solution) 1 Ml Solution 30 Ml PO PRN DAILY PRN Trazodone Hcl 50 Mg Tablet 50 Mg PO QHS Tegretol (Carbamazepine) 200 Mg Tablet 150 Mg PO BID Risperidone 1 Mg Tablet 1 Mg PO QHS Norvasc (Amlodipine Besylate) 5 Mg Tablet 5 Mg PO DAILY Elmer-128 (Sodium Chloride) 3.5 Gm Oint...g. 1 Speedy OP HS Miralax (Polyethylene Glycol 3350) 17 Gm Powd.pack 17 Gm PO DAILY Milk Of Magnesia (Magnesium Hydroxide) 2,400 Mg/10 Ml Oral.susp 30 Ml PO PRN DAILY PRN Carlos Carbonate 450 Mg Tablet.er 450 Mg PO HS Carlos Carbonate 150 Mg Capsule 300 Mg PO DAILY Lipitor (Atorvastatin Calcium) 20 Mg Tablet 20 Mg PO QHS Levothyroxine Sodium 75 Mcg Tablet 75 Mcg PO DAILYAC Estrace (Estradiol) 42.5 Gm Cream.appl 1 Speedy VG 2X WEEK Q MON, THURS Vitamin D2 (Ergocalciferol (Vitamin D2)) 50,000 Unit Capsule 50,000 Unit PO WEEKLY Endocet 10-325 Mg Tablet (Oxycodone Hcl/Acetaminophen) 1 Each Tablet 1 Each PO PRN Q6HRS PRN Vitamin B-12 (Cyanocobalamin (Vitamin B-12)) 1,000 Mcg Tablet 1,000 Mcg PO DAILY Benztropine Mesylate 0.5 Mg Tablet 0.5 Mg PO BID Tylenol (Acetaminophen) 325 Mg Tablet 650 Mg PO PRN Q6HRS PRN Maalox Advanced Suspension (Mag Hydrox/Aluminum Hyd/Simeth) 355 Ml Oral.susp 15 Ml PO PRN AFTMEALHC PRN Analgesic [place] (Methyl Salicylate/Menthol) 28 Gm Oint...g. 1 Speedy TP PRN QID PRN [place] Carbonate 300 Mg Capsule 450 Mg PO QHS Benztropine Mesylate 0.5 Mg Tablet 0.5 Mg PO QHS Risperidone 1 Mg Tablet 1.5 Mg PO QHS Refresh Classic Eye Drops (Polyvinyl Alcohol/Povidone/Pf) 1 Each Droperette 1 Each OU TID Culturelle (Lactobacillus Rhamnosus Gg) 1 Each Cap.sprink 1 Each PO BID Trazodone Hcl 50 Mg Tablet 50 Mg PO PRN QHS PRN Trazodone Hcl 50 Mg Tablet 50 Mg PO HS Tegretol (Carbamazepine) 200 Mg Tablet 300 Mg PO BID Norvasc (Amlodipine Besylate) 5 Mg Tablet 5 Mg PO DAILY Elmer-128 (Sodium Chloride) 15 Ml Drops 1 Drop OD HS Miralax (Polyethylene Glycol 3350) 17 Gm Powd.pack 17 Gm PO DAILY Milk Of Magnesia (Magnesium Hydroxide) 2,400 Mg/10 Ml Oral.susp 2,400 Mg PO PRN DAILY PRN [place] Carbonate 300 Mg Tablet 300 Mg PO DAILY Lipitor (Atorvastatin Calcium) 20 Mg Tablet 20 Mg PO QHS Levothyroxine Sodium 75 Mcg Tablet 75 Mcg PO DAILYAC Estrace (Estradiol) 42.5 Gm Cream.appl 1 Gm VG HS QMON/ Insert at bedtime on Friday and Vitamin D2 (Ergocalciferol (Vitamin D2)) 50,000 Unit Capsule 50,000 Unit PO WEEKLY Endocet 10-325 Mg Tablet (Oxycodone Hcl/Acetaminophen) 1 Each Tablet 1 Tab PO PRN Q6HRS PRN Tylenol (Acetaminophen) 325 Mg Tablet 650 Mg PO PRN Q6HRS PRN I have reviewed the current psychotropics carefully including drug interactions. Risk benefit ratio favors no change other than as noted in my dictated progress note. 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
[2018-02-15] MEDS: oxyCODONE/APAP 10/325 1 TAB TABLET PO PRN (00:40)
--- NOTE | 2018-02-15 01:27 | PN ---
DATE: 02/14/2018 This note covers elements not covered in my initial note of 02/14/2018. SUBJECTIVE: I met with the patient in the evening. The patient remains somewhat withdrawn to her room all morning, refused morning meds and breakfast. Wandering in the afternoon, tearful while on the phone with her sister. Remains very paranoid, suspicious, not interactive as I met with her. REVIEW OF SYSTEMS: No CV, , pulmonary, eye, ENT system symptoms on review. MENTAL STATUS EXAM: Oriented to herself and situation. Speech, responses monosyllabic. Abstraction fair, computation impaired, language function intact, attention span short. Mood and affect withdrawn. LABORATORY DATA: Reviewed. IMPRESSION: Bipolar 1 disorder, depressed with psychotic features; anxiety disorder, unspecified. Rest unchanged. PLAN: Continue Cogentin, lithium, Risperdal, Tegretol, trazodone, Wellbutrin-XL 150 mg a day will be started and we will increase the Risperdal to 1.5 mg p.o. at bedtime. MAN Rox WATT MD DR: SANCHEZ/fredrick JOB#: [id number] / [id number]
[2018-02-15] MEDS: LEVOTHYROXINE 75 MCG TABLET PO SCH (05:07)
[2018-02-15 05:46] VITALS: BP 164/93
[2018-02-15] MEDS: LITHIUM CARBONATE 300 MG TABLET PO SCH ×2 (07:55→19:45)
[2018-02-15] MEDS: POLYVINYL ALCOHOL/POVIDONE/PF OPHTH SOLUTION DROPERETTE. OU SCH ×3 (07:55→19:45)
[2018-02-15] MEDS: BENZTROPINE MESYLATE 0.5 MG TABLET PO SCH ×2 (07:55→19:45)
[2018-02-15] MEDS: LACTOBACILLUS RHAMNOSUS GG 1 CAPSULE. PO SCH ×2 (07:56→19:45)
[2018-02-15] MEDS: CYANOCOBALAMIN (VITAMIN B-12) 1,000 MCG TABLET. PO SCH (07:56)
[2018-02-15] MEDS: carBAMazepine 100 MG TAB.CHEW PO SCH ×2 (07:56→19:48)
[2018-02-15] MEDS: POLYETHYLENE GLYCOL 3350 17 GM PACKET. PO SCH (07:56)
[2018-02-15] MEDS: amLODIPine BESYLATE 5 MG TABLET PO SCH (07:57)
[2018-02-15] MEDS: buPROPion XL 150 MG TAB.ER.24H PO SCH (09:00)
[2018-02-15 15:17] VITALS: BP 153/94
[2018-02-15] MEDS: SODIUM CHLORIDE 5% OPHTH OINTMENT 3.5GM TUBE. OD SCH (19:44)
[2018-02-15] MEDS: risperiDONE 0.5 MG TABLET. PO SCH (19:45)
[2018-02-15] MEDS: ATORVASTATIN CALCIUM 20 MG TABLET PO SCH (19:45)
[2018-02-15] MEDS: traZODone 50 MG TABLET. PO SCH (19:45)
[2018-02-15] MEDS: QUEtiapine 25 MG TABLET. PO SCH (19:46)
--- NOTE | 2018-02-15 20:05 | PDOC ---
Exam Note: Julian Note: Please also refer to the separate dictated note~for this date of service dictated separately.~Patient seen individually. Discussed the patient with Nursing staff reviewed the chart.~Reviewed interim history and current functioning. Reviewed vital signs,~Labs/ Radiology~and current medications noted below. Continue current treatment with the changes noted in the dictated addendum note Assessment: Vital Signs: Vital Signs Date Time Temp Pulse Resp B/P (MAP) Pulse Ox O2 Delivery O2 Flow Rate FiO2 02/15/18 15:17 98.1 102 20 153/94 (113) 98 02/15/18 05:46 Room Air I&O Intake and Output 02/15/18 07:00 Intake Total 1100 ml Balance 1100 ml Intake Oral 1100 ml Current Medications: Meds: Current Medications Acetaminophen (Tylenol) 650 mg PRN Q6HRS PRN PO PAIN / TEMP; Start 02/12/18 at 21:45 Multi-Ingredient Ointment (Analgesic [place]) 1 speedy PRN QID PRN TP MUSCLE PAIN; Start 02/12/18 at 21:45 Al Hydroxide/Mg Hydroxide (Mylanta Plus Xs) 15 ml PRN AFTMEALHC PRN PO DYSPEPSIA; Start 02/12/18 at 21:45 Magnesium Hydroxide (Milk Of Magnesia) 2,400 mg PRN QHS PRN PO CONSTIPATION; Start 02/12/18 at 21:45 Carbamazepine (TEGretol) 150 mg BID PO ; Start 02/13/18 at 09:00; Stop 02/13/18 at 09:00; Status DC Carbamazepine (TEGretol) 300 mg BID PO Last administered on 02/15/18at 19:48; Start 02/13/18 at 09:00 Oxycodone/ Acetaminophen (Percocet 10/325) 1 tab PRN Q6HRS PRN PO PAIN Last administered on 02/15/18at 00:40; Start 02/12/18 at 22:30 Oxycodone/ Acetaminophen (Percocet 10/325) 1 tab PRN Q6HRS PRN PO PAIN; Start 02/12/18 at 22:30; Stop 02/12/18 at 22:40; Status DC Benztropine Mesylate (Cogentin) 0.5 mg BID PO Last administered on 02/15/18at 19 :45; Start 02/13/18 at 09:00 Orwell Carbonate 300 mg DAILY PO Last administered on 02/15/18 07:55; Start 02/13/18 at 09:00 Orwell Carbonate 450 mg QHS PO Last administered on 02/15/18 19:45; Start at 21:00 Risperidone (RisperDAL) 1 mg QHS PO Last administered on 02/13/18 19:52; Start 02/13/18 at 21:00; Stop 02/14/18 at 19:16; Status DC Trazodone HCl (Desyrel) 50 mg QHS PO Last administered on 02/15/18 19:45; Start 02/13/18 at 21:00 Acetaminophen (Tylenol) 650 mg PRN Q6HRS PRN PO PAIN / TEMP; Start 02/12/18 at 22:30; Stop 02/12/18 at 22:32; Status DC Atorvastatin Calcium (Lipitor) 20 mg QHS PO Last administered on 02/15/18 19: 45; Start 02/13/18 at 21:00 Cyanocobalamin (Vitamin B-12) 1,000 mcg DAILY PO Last administered on 07:56; Start 02/13/18 at 09:00 Estradiol (Estrace) 1 speedy HS VG ; Start 02/13/18 at 21:00; Stop 02/14/18 at 00: 47; Status DC Lactobacillus Rhamnosus (Culturelle) 1 cap BID PO Last administered on 19:45; Start 02/13/18 at 09:00 Levothyroxine Sodium (Synthroid) 75 mcg DAILYAC PO Last administered on at 09:42; Start 02/13/18 at 07:30; Stop 02/13/18 at 11:19; Status DC Multi-Ingredient Ointment (Analgesic [place]) 1 speedy PRN QID PRN TP MUSCLE PAIN; Start 02/12/18 at 22:30; Status Cancel Sodium Chloride (Elmer) 1 inch HS OD Last administered on 02/15/18 19:44; Start 02/13/18 at 21:00 Sorbitol (Sorbitol Solution) 1 ml PRN DAILY PRN PO CONSTIPATION; Start at 22:30; Status Cancel Amlodipine Besylate (Norvasc) 5 mg DAILY PO Last administered on 9/30/18at 07: 57; Start 02/13/18 at 09:00 Vitamin D (Vitamin D3) 50,000 unit WEEKLY PO ; Start 02/19/18 at 09:00; Stop at 09:00; Status DC Non-Formulary Medication (Mag Hydrox/ Aluminum Hyd/ Simeth (Maalox Advanced Suspension)) 15 ml PRN AFTMEALHC PRN PO DYSPEPSIA; Start 02/12/18 at 22:30; Stop 02/12/18 at 22:41; Status DC Non-Formulary Medication (Magnesium Hydroxide (Milk Of Magnesia)) 2,400 mg PRN DAILY PRN PO CONSTIPATION; Start 02/12/18 at 22:30; Stop 02/12/18 at 22:41; Status DC Polyethylene Glycol (miraLAX) 17 gm DAILY PO Last administered on 02/15/18at 07: 56; Start 02/13/18 at 09:00 Artificial Tears (Refresh Classic) 1 drop TID OU Last administered on at 19:45; Start 02/13/18 at 09:00 Non-Formulary Medication (Sodium Chloride (Elmer-128)) 1 drop HS OD ; Start 02/13 at 21:00; Stop 02/13/18 at 21:00; Status DC Levothyroxine Sodium (Synthroid) 75 mcg DAILY06 PO Last administered on at 05:07; Start 02/14/18 at 06:00 Sorbitol (Sorbitol Solution) 30 ml PRN DAILY PRN PO CONSTIPATION; Start at 11:00 Estradiol (Estrace) 1 speedy QMTH VG ; Start 02/16/18 at 21:00 Info (FLU VACCINE per PROTOCOL) 1 ea PRN 1X PRN MC PER PROTOCOL; Start at 09:00; Status UNV Risperidone (RisperDAL) 1.5 mg QHS PO Last administered on 02/15/18at 19:45; Start 02/14/18 at 21:00 Bupropion HCl (Wellbutrin Xl) 150 mg DAILY PO Last administered on 02/15/18at 09 :00; Start 02/15/18 at 09:00 Quetiapine Fumarate (SEROquel) 25 mg QHS PO Last administered on 02/15/18at 19: 46; Start 02/15/18 at 21:00 Active Scripts Active Reported Sorbitol (Sorbitol Solution) 1 Ml Solution 30 Ml PO PRN DAILY PRN Trazodone Hcl 50 Mg Tablet 50 Mg PO QHS Tegretol (Carbamazepine) 200 Mg Tablet 150 Mg PO BID Risperidone 1 Mg Tablet 1 Mg PO QHS Norvasc (Amlodipine Besylate) 5 Mg Tablet 5 Mg PO DAILY Elmer-128 (Sodium Chloride) 3.5 Gm Oint...g. 1 Speedy OP HS Miralax (Polyethylene Glycol 3350) 17 Gm Powd.pack 17 Gm PO DAILY Milk Of Magnesia (Magnesium Hydroxide) 2,400 Mg/10 Ml Oral.susp 30 Ml PO PRN DAILY PRN [place] Carbonate 450 Mg Tablet.er 450 Mg PO HS Orwell Carbonate 150 Mg Capsule 300 Mg PO DAILY Lipitor (Atorvastatin Calcium) 20 Mg Tablet 20 Mg PO QHS Levothyroxine Sodium 75 Mcg Tablet 75 Mcg PO DAILYAC Estrace (Estradiol) 42.5 Gm Cream.appl 1 Speedy VG 2X WEEK Q FRI, Vitamin D2 (Ergocalciferol (Vitamin D2)) 50,000 Unit Capsule 50,000 Unit PO WEEKLY Endocet 10-325 Mg Tablet (Oxycodone Hcl/Acetaminophen) 1 Each Tablet 1 Each PO PRN Q6HRS PRN Vitamin B-12 (Cyanocobalamin (Vitamin B-12)) 1,000 Mcg Tablet 1,000 Mcg PO DAILY Benztropine Mesylate 0.5 Mg Tablet 0.5 Mg PO BID Tylenol (Acetaminophen) 325 Mg Tablet 650 Mg PO PRN Q6HRS PRN Maalox Advanced Suspension (Mag Hydrox/Aluminum Hyd/Simeth) 355 Ml Oral.susp 15 Ml PO PRN AFTMEALHC PRN Analgesic [place] (Methyl Salicylate/Menthol) 28 Gm Oint...g. 1 Speedy TP PRN QID PRN [place]well Carbonate 300 Mg Capsule 450 Mg PO QHS Benztropine Mesylate 0.5 Mg Tablet 0.5 Mg PO QHS Risperidone 1 Mg Tablet 1.5 Mg PO QHS Refresh Classic Eye Drops (Polyvinyl Alcohol/Povidone/Pf) 1 Each Droperette 1 Each OU TID Culturelle (Lactobacillus Rhamnosus Gg) 1 Each Cap.sprink 1 Each PO BID Trazodone Hcl 50 Mg Tablet 50 Mg PO PRN QHS PRN Trazodone Hcl 50 Mg Tablet 50 Mg PO HS Tegretol (Carbamazepine) 200 Mg Tablet 300 Mg PO BID Norvasc (Amlodipine Besylate) 5 Mg Tablet 5 Mg PO DAILY Elmer-128 (Sodium Chloride) 15 Ml Drops 1 Drop OD HS Miralax (Polyethylene Glycol 3350) 17 Gm Powd.pack 17 Gm PO DAILY Milk Of Magnesia (Magnesium Hydroxide) 2,400 Mg/10 Ml Oral.susp 2,400 Mg PO PRN DAILY PRN [place]well Carbonate 300 Mg Tablet 300 Mg PO DAILY Lipitor (Atorvastatin Calcium) 20 Mg Tablet 20 Mg PO QHS Levothyroxine Sodium 75 Mcg Tablet 75 Mcg PO DAILYAC Estrace (Estradiol) 42.5 Gm Cream.appl 1 Gm VG HS QMON/ Insert at bedtime on Friday and Vitamin D2 (Ergocalciferol (Vitamin D2)) 50,000 Unit Capsule 50,000 Unit PO WEEKLY Endocet 10-325 Mg Tablet (Oxycodone Hcl/Acetaminophen) 1 Each Tablet 1 Tab PO PRN Q6HRS PRN Tylenol (Acetaminophen) 325 Mg Tablet 650 Mg PO PRN Q6HRS PRN I have reviewed the current psychotropics carefully including drug interactions. Risk benefit ratio favors no change other than as noted in my dictated progress note. 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
[2018-02-16 05:32] VITALS: BP 145/87
[2018-02-16] MEDS: LEVOTHYROXINE 75 MCG TABLET PO SCH (05:52)
[2018-02-16 07:46] LABS: BASO % 1 % (0-3); EOS # 0.2 x10^3/uL (0.0-0.7); EOS % 3 % (0-3); HEMATOCRIT 36.9 % (36.0-47.0); HEMOGLOBIN 12.5 g/dL (12.0-15.5); LYMPH # 1.4 x10^3/uL (1.0-4.8); LYMPH % 20 % (24-48); MEAN CORPUSCULAR HEMOGLOBIN 31 pg (25-35); MEAN CORPUSCULAR HGB CONC 34 g/dL (31-37); MEAN CORPUSCULAR VOLUME 91 fL (79-100); MONO # 0.8 x10^3/uL (0.0-1.1); MONO % 11 % (0-9); NEUT # 4.7 x10^3uL (1.8-7.7); NEUT % 65 % (31-73); PLATELET COUNT 218 x10^3/uL (140-400); RED BLOOD COUNT 4.05 x10^6/uL (3.50-5.40); WHITE BLOOD COUNT 7.2 x10^3/uL (4.0-11.0)
[2018-02-16] MEDS: POLYVINYL ALCOHOL/POVIDONE/PF OPHTH SOLUTION DROPERETTE. OU SCH ×3 (07:49→19:57)
[2018-02-16] MEDS: buPROPion XL 150 MG TAB.ER.24H PO SCH (07:50)
[2018-02-16] MEDS: BENZTROPINE MESYLATE 0.5 MG TABLET PO SCH ×2 (07:50→19:53)
[2018-02-16] MEDS: CYANOCOBALAMIN (VITAMIN B-12) 1,000 MCG TABLET. PO SCH (07:50)
[2018-02-16] MEDS: LACTOBACILLUS RHAMNOSUS GG 1 CAPSULE. PO SCH ×2 (07:50→19:53)
[2018-02-16] MEDS: LITHIUM CARBONATE 300 MG TABLET PO SCH ×2 (07:50→19:55)
[2018-02-16] MEDS: POLYETHYLENE GLYCOL 3350 17 GM PACKET. PO SCH (07:51)
[2018-02-16] MEDS: amLODIPine BESYLATE 5 MG TABLET PO SCH (07:51)
[2018-02-16] MEDS: carBAMazepine 100 MG TAB.CHEW PO SCH ×2 (07:55→22:17)
[2018-02-16 08:02] LABS: ALBUMIN 3.3 g/dL (3.4-5.0); CALCIUM 10.2 mg/dL (8.5-10.1); CREATININE 0.8 mg/dL (0.6-1.0); GFR 71.3; POTASSIUM 4.3 mmol/L (3.5-5.1); TOTAL BILIRUBIN 0.4 mg/dL (0.2-1.0); TOTAL PROTEIN 6.7 g/dL (6.4-8.2)
[2018-02-16] MEDS ORDERED: Influenza vaccine per PROTOCOL. MC PRN (09:00)
[2018-02-16 16:16] VITALS: BP 150/90
[2018-02-16] MEDS: ATORVASTATIN CALCIUM 20 MG TABLET PO SCH (19:53)
[2018-02-16] MEDS: risperiDONE 0.5 MG TABLET. PO SCH (19:55)
[2018-02-16] MEDS: QUEtiapine 25 MG TABLET. PO SCH (19:55)
[2018-02-16] MEDS: traZODone 50 MG TABLET. PO SCH (19:55)
[2018-02-16] MEDS: SODIUM CHLORIDE 5% OPHTH OINTMENT 3.5GM TUBE. OD SCH (20:01)
[2018-02-16] MEDS: ESTRADIOL 0.01% VAGINAL CREAM 42.5GM TUBE. VG SCH (20:02)
--- NOTE | 2018-02-16 20:20 | PDOC ---
Exam Note: Julian Note: Please also refer to the separate dictated note~for this date of service dictated separately.~Patient seen individually. Discussed the patient with Nursing staff reviewed the chart.~Reviewed interim history and current functioning. Reviewed vital signs,~Labs/ Radiology~and current medications noted below. Continue current treatment with the changes noted in the dictated addendum note Assessment: Vital Signs: Vital Signs Date Time Temp Pulse Resp B/P (MAP) Pulse Ox O2 Delivery O2 Flow Rate FiO2 02/16/18 16:16 99.3 98 20 150/90 (110) 96 02/15/18 05:46 Room Air I&O Intake and Output 02/16/18 07:00 Intake Total 720 ml Balance 720 ml Intake Oral 720 ml Labs: Laboratory Tests Test 02/16/18 07:26 White Blood Count 7.2 x10^3/uL (4.0-11.0) Red Blood Count 4.05 x10^6/uL (3.50-5.40) Hemoglobin 12.5 g/dL (12.0-15.5) Hematocrit 36.9 % (36.0-47.0) Mean Corpuscular Volume 91 fL (79-100) Mean Corpuscular Hemoglobin 31 pg (25-35) Mean Corpuscular Hemoglobin Concent 34 g/dL (31-37) Red Cell Distribution Width 13.0 % (11.5-14.5) Platelet Count 218 x10^3/uL (140-400) Neutrophils (%) (Auto) 65 % (31-73) Lymphocytes (%) (Auto) 20 % (24-48) L Monocytes (%) (Auto) 11 % (0-9) H Eosinophils (%) (Auto) 3 % (0-3) Basophils (%) (Auto) 1 % (0-3) Neutrophils # (Auto) 4.7 x10^3uL (1.8-7.7) Lymphocytes # (Auto) 1.4 x10^3/uL (1.0-4.8) Monocytes # (Auto) 0.8 x10^3/uL (0.0-1.1) Eosinophils # (Auto) 0.2 x10^3/uL (0.0-0.7) Basophils # (Auto) 0.0 x10^3/uL (0.0-0.2) Sodium Level 141 mmol/L (136-145) Potassium Level 4.3 mmol/L (3.5-5.1) Chloride Level 108 mmol/L (98-107) H Carbon Dioxide Level 30 mmol/L (21-32) Anion Gap 3 (6-14) L Blood Urea Nitrogen 12 mg/dL (7-20) Creatinine 0.8 mg/dL (0.6-1.0) Estimated GFR (Cockcroft-Gault) 71.3 BUN/Creatinine Ratio 15 (6-20) Glucose Level 100 mg/dL (70-99) H Calcium Level 10.2 mg/dL (8.5-10.1) H Total Bilirubin 0.4 mg/dL (0.2-1.0) Aspartate Amino Transferase (AST) 28 U/L (15-37) Alanine Aminotransferase (ALT) 23 U/L (14-59) Alkaline Phosphatase 127 U/L (46-116) H Total Protein 6.7 g/dL (6.4-8.2) Albumin 3.3 g/dL (3.4-5.0) L Albumin/Globulin Ratio 1.0 (1.0-1.7) [place] Level 1.0 mmol/L (0.6-1.2) [place] Last Dose Date 02/15/18 [place] Last Dose Time 2030 Current Medications: Meds: Current Medications Acetaminophen (Tylenol) 650 mg PRN Q6HRS PRN PO PAIN / TEMP; Start 02/12/18 at 21:45 Multi-Ingredient Ointment (Analgesic [place]) 1 speedy PRN QID PRN TP MUSCLE PAIN; Start 02/12/18 at 21:45 Al Hydroxide/Mg Hydroxide (Mylanta Plus Xs) 15 ml PRN AFTMEALHC PRN PO DYSPEPSIA; Start 02/12/18 at 21:45 Magnesium Hydroxide (Milk Of Magnesia) 2,400 mg PRN QHS PRN PO CONSTIPATION; Start 02/12/18 at 21:45 Carbamazepine (TEGretol) 150 mg BID PO ; Start 02/13/18 at 09:00; Stop 02/13/18 at 09:00; Status DC Carbamazepine (TEGretol) 300 mg BID PO Last administered on 02/16/18at 07:55; Start 02/13/18 at 09:00 Oxycodone/ Acetaminophen (Percocet 10/325) 1 tab PRN Q6HRS PRN PO PAIN Last administered on 02/15/18at 00:40; Start 02/12/18 at 22:30 Oxycodone/ Acetaminophen (Percocet 10/325) 1 tab PRN Q6HRS PRN PO PAIN; Start 02/12/18 at 22:30; Stop 02/12/18 at 22:40; Status DC Benztropine Mesylate (Cogentin) 0.5 mg BID PO Last administered on 02/16/18 19 :53; Start 02/13/18 at 09:00 [place] Carbonate 300 mg DAILY PO Last administered on 02/16/18 07:50; Start 02/13/18 at 09:00 [place] Carbonate 450 mg QHS PO Last administered on 02/16/18 19:55; Start at 21:00 Risperidone (RisperDAL) 1 mg QHS PO Last administered on 02/13/18at 19:52; Start 02/13/18 at 21:00; Stop 02/14/18 at 19:16; Status DC Trazodone HCl (Desyrel) 50 mg QHS PO Last administered on 02/16/18at 19:55; Start 02/13/18 at 21:00 Acetaminophen (Tylenol) 650 mg PRN Q6HRS PRN PO PAIN / TEMP; Start 02/12/18 at 22:30; Stop 02/12/18 at 22:32; Status DC Atorvastatin Calcium (Lipitor) 20 mg QHS PO Last administered on 02/16/18 19: 53; Start 02/13/18 at 21:00 Cyanocobalamin (Vitamin B-12) 1,000 mcg DAILY PO Last administered on at 07:50; Start 02/13/18 at 09:00 Estradiol (Estrace) 1 speedy HS VG ; Start 02/13/18 at 21:00; Stop 02/14/18 at 00: 47; Status DC Lactobacillus Rhamnosus (Culturelle) 1 cap BID PO Last administered on at 19:53; Start 02/13/18 at 09:00 Levothyroxine Sodium (Synthroid) 75 mcg DAILYAC PO Last administered on at 09:42; Start 02/13/18 at 07:30; Stop 02/13/18 at 11:19; Status DC Multi-Ingredient Ointment (Analgesic [place]) 1 speedy PRN QID PRN TP MUSCLE PAIN; Start 02/12/18 at 22:30; Status Cancel Sodium Chloride ([place]mer) 1 inch HS OD Last administered on 02/16/18at 20:01; Start 02/13/18 at 21:00 Sorbitol (Sorbitol Solution) 1 ml PRN DAILY PRN PO CONSTIPATION; Start at 22:30; Status Cancel Amlodipine Besylate (Norvasc) 5 mg DAILY PO Last administered on 02/16/18at 07: 51; Start 02/13/18 at 09:00 Vitamin D (Vitamin D3) 50,000 unit WEEKLY PO ; Start 02/19/18 at 09:00; Stop at 09:00; Status DC Non-Formulary Medication (Mag Hydrox/ Aluminum Hyd/ Simeth (Maalox Advanced Suspension)) 15 ml PRN AFTMEALHC PRN PO DYSPEPSIA; Start 02/12/18 at 22:30; Stop 02/12/18 at 22:41; Status DC Non-Formulary Medication (Magnesium Hydroxide (Milk Of Magnesia)) 2,400 mg PRN DAILY PRN PO CONSTIPATION; Start 02/12/18 at 22:30; Stop 02/12/18 at 22:41; Status DC Polyethylene Glycol (miraLAX) 17 gm DAILY PO Last administered on 02/16/18at 07: 51; Start 02/13/18 at 09:00 Artificial Tears (Refresh Classic) 1 drop TID OU Last administered on at 19:57; Start 02/13/18 at 09:00 Non-Formulary Medication (Sodium Chloride (Elmer-128)) 1 drop HS OD ; Start 02/13 at 21:00; Stop 02/13/18 at 21:00; Status DC Levothyroxine Sodium (Synthroid) 75 mcg DAILY06 PO Last administered on at 05:52; Start 02/14/18 at 06:00 Sorbitol (Sorbitol Solution) 30 ml PRN DAILY PRN PO CONSTIPATION; Start at 11:00 Estradiol (Estrace) 1 speedy QMTH VG Last administered on 02/16/18at 20:02; Start 02/16/18 at 21:00 Info (FLU VACCINE per PROTOCOL) 1 ea PRN 1X PRN MC PER PROTOCOL; Start at 09:00; Status UNV Risperidone (RisperDAL) 1.5 mg QHS PO Last administered on 02/16/18at 19:55; Start 02/14/18 at 21:00 Bupropion HCl (Wellbutrin Xl) 150 mg DAILY PO Last administered on 02/16/18at 07 :50; Start 02/15/18 at 09:00 Quetiapine Fumarate (SEROquel) 25 mg QHS PO Last administered on 02/16/18at 19: 55; Start 02/15/18 at 21:00 Hydroxyzine HCl (Atarax) 10 mg PRN Q2HR PRN PO anxiety; Start 02/16/18 at 16:30 Active Scripts Active Reported Sorbitol (Sorbitol Solution) 1 Ml Solution 30 Ml PO PRN DAILY PRN Trazodone Hcl 50 Mg Tablet 50 Mg PO QHS Tegretol (Carbamazepine) 200 Mg Tablet 150 Mg PO BID Risperidone 1 Mg Tablet 1 Mg PO QHS Norvasc (Amlodipine Besylate) 5 Mg Tablet 5 Mg PO DAILY Elmer-128 (Sodium Chloride) 3.5 Gm Oint...g. 1 Speedy OP HS Miralax (Polyethylene Glycol 3350) 17 Gm Powd.pack 17 Gm PO DAILY Milk Of Magnesia (Magnesium Hydroxide) 2,400 Mg/10 Ml Oral.susp 30 Ml PO PRN DAILY PRN [place] Carbonate 450 Mg Tablet.er 450 Mg PO HS [place] Carbonate 150 Mg Capsule 300 Mg PO DAILY Lipitor (Atorvastatin Calcium) 20 Mg Tablet 20 Mg PO QHS Levothyroxine Sodium 75 Mcg Tablet 75 Mcg PO DAILYAC Estrace (Estradiol) 42.5 Gm Cream.appl 1 Speedy VG 2X WEEK Q MON, THURS Vitamin D2 (Ergocalciferol (Vitamin D2)) 50,000 Unit Capsule 50,000 Unit PO WEEKLY Endocet 10-325 Mg Tablet (Oxycodone Hcl/Acetaminophen) 1 Each Tablet 1 Each PO PRN Q6HRS PRN Vitamin B-12 (Cyanocobalamin (Vitamin B-12)) 1,000 Mcg Tablet 1,000 Mcg PO DAILY Benztropine Mesylate 0.5 Mg Tablet 0.5 Mg PO BID Tylenol (Acetaminophen) 325 Mg Tablet 650 Mg PO PRN Q6HRS PRN Maalox Advanced Suspension (Mag Hydrox/Aluminum Hyd/Simeth) 355 Ml Oral.susp 15 Ml PO PRN AFTMEALHC PRN Analgesic [place] (Methyl Salicylate/Menthol) 28 Gm Oint...g. 1 Speedy TP PRN QID PRN [place] Carbonate 300 Mg Capsule 450 Mg PO QHS Benztropine Mesylate 0.5 Mg Tablet 0.5 Mg PO QHS Risperidone 1 Mg Tablet 1.5 Mg PO QHS Refresh Classic Eye Drops (Polyvinyl Alcohol/Povidone/Pf) 1 Each Droperette 1 Each OU TID Culturelle (Lactobacillus Rhamnosus Gg) 1 Each Cap.sprink 1 Each PO BID Trazodone Hcl 50 Mg Tablet 50 Mg PO PRN QHS PRN Trazodone Hcl 50 Mg Tablet 50 Mg PO HS Tegretol (Carbamazepine) 200 Mg Tablet 300 Mg PO BID Norvasc (Amlodipine Besylate) 5 Mg Tablet 5 Mg PO DAILY Elmer-128 (Sodium Chloride) 15 Ml Drops 1 Drop OD HS Miralax (Polyethylene Glycol 3350) 17 Gm Powd.pack 17 Gm PO DAILY Milk Of Magnesia (Magnesium Hydroxide) 2,400 Mg/10 Ml Oral.susp 2,400 Mg PO PRN DAILY PRN [place] Carbonate 300 Mg Tablet 300 Mg PO DAILY Lipitor (Atorvastatin Calcium) 20 Mg Tablet 20 Mg PO QHS Levothyroxine Sodium 75 Mcg Tablet 75 Mcg PO DAILYAC Estrace (Estradiol) 42.5 Gm Cream.appl 1 Gm VG HS QMON/THURS Insert at bedtime on Friday and Vitamin D2 (Ergocalciferol (Vitamin D2)) 50,000 Unit Capsule 50,000 Unit PO WEEKLY Endocet 10-325 Mg Tablet (Oxycodone Hcl/Acetaminophen) 1 Each Tablet 1 Tab PO PRN Q6HRS PRN Tylenol (Acetaminophen) 325 Mg Tablet 650 Mg PO PRN Q6HRS PRN I have reviewed the current psychotropics carefully including drug interactions. Risk benefit ratio favors no change other than as noted in my dictated progress note. 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
--- NOTE | 2018-02-16 22:19 | PN ---
DATE: 02/15/2018 PSYCHIATRIC PROGRESS NOTE This late entry 02/15/2018 covers elements not covered in my initial note. SUBJECTIVE: I met with the patient in the evening. I also met with the patient's . The patient slept just 1-1/2 hours previous night. The patient remains withdrawn, not very verbal, paranoid, has some lip smacking movements and we will consult Dr. Mcneill for this. She has been in the hallway, talked about her paranoia. She ate no breakfast, somewhat dry and we will monitor this. REVIEW OF SYSTEMS: No CV, , pulmonary, eye, ENT system symptoms on review. Reliability poor. MENTAL STATUS EXAM: Oriented to herself and situation. Speech minimal at best. Abstraction fair, computation impaired, unable to do any steps on serial 7's or not cooperative with this. Remains paranoid. No suicidal or homicidal ideation. gave a fairly detailed history that for several days at the shelter, she was not even interacting or talking to him and that she has done some of that since she has been here. LABORATORY DATA: Reviewed. IMPRESSION: Schizoaffective disorder, bipolar type, mixed with psychotic features, in partial remission; cognitive disorder, unspecified. Rest unchanged. PLAN: Consult Dr. Mcneill for her abnormal facial movements. Continue rest unchanged. Push fluids. [place] and Tegretol level are therapeutic. MAN Rox WATT MD DR: SANCHEZ/fredrick JOB#: [id number] / [id number]
[2018-02-17 05:34] VITALS: BP 152/86
[2018-02-17] MEDS: LEVOTHYROXINE 75 MCG TABLET PO SCH (05:59)
[2018-02-17] MEDS: POLYVINYL ALCOHOL/POVIDONE/PF OPHTH SOLUTION DROPERETTE. OU SCH ×3 (07:24→20:25)
[2018-02-17] MEDS: POLYETHYLENE GLYCOL 3350 17 GM PACKET. PO SCH (07:24)
[2018-02-17] MEDS: LACTOBACILLUS RHAMNOSUS GG 1 CAPSULE. PO SCH ×2 (07:24→20:24)
[2018-02-17] MEDS: LITHIUM CARBONATE 300 MG TABLET PO SCH ×2 (07:25→20:24)
[2018-02-17] MEDS: buPROPion XL 150 MG TAB.ER.24H PO SCH (07:25)
[2018-02-17] MEDS: CYANOCOBALAMIN (VITAMIN B-12) 1,000 MCG TABLET. PO SCH (07:25)
[2018-02-17] MEDS: BENZTROPINE MESYLATE 0.5 MG TABLET PO SCH (07:25)
[2018-02-17] MEDS: amLODIPine BESYLATE 5 MG TABLET PO SCH (07:26)
[2018-02-17] MEDS: carBAMazepine 100 MG TAB.CHEW PO SCH ×2 (07:28→20:28)
[2018-02-17 16:00] VITALS: BP 153/69
[2018-02-17] MEDS ORDERED: traZODone 50 MG TABLET. PO PRN (16:45)
[2018-02-17] MEDS: traZODone 50 MG TABLET. PO SCH (20:24)
[2018-02-17] MEDS: risperiDONE 0.5 MG TABLET. PO SCH (20:24)
[2018-02-17] MEDS: ATORVASTATIN CALCIUM 20 MG TABLET PO SCH (20:25)
[2018-02-17] MEDS: MIRTAZAPINE 7.5 MG TABLET. PO SCH (20:26)
[2018-02-17] MEDS: SODIUM CHLORIDE 5% OPHTH OINTMENT 3.5GM TUBE. OD SCH (20:28)
[2018-02-17] MEDS: QUEtiapine 25 MG TABLET. PO SCH (20:28)
--- NOTE | 2018-02-17 20:46 | PDOC ---
Exam Note: Julian Note: Please also refer to the separate dictated note~for this date of service dictated separately.~Patient seen individually. Discussed the patient with Nursing staff reviewed the chart.~Reviewed interim history and current functioning. Reviewed vital signs,~Labs/ Radiology~and current medications noted below. Continue current treatment with the changes noted in the dictated addendum note Assessment: Vital Signs: Vital Signs Date Time Temp Pulse Resp B/P (MAP) Pulse Ox O2 Delivery O2 Flow Rate FiO2 02/17/18 16:00 97.6 112 20 153/69 (97) 94 Room Air I&O Intake and Output 02/17/18 07:00 Intake Total 300 ml Balance 300 ml Intake Oral 300 ml Current Medications: Meds: Current Medications Acetaminophen (Tylenol) 650 mg PRN Q6HRS PRN PO PAIN / TEMP; Start 02/12/18 at 21:45 Multi-Ingredient Ointment (Analgesic [place]) 1 speedy PRN QID PRN TP MUSCLE PAIN; Start 02/12/18 at 21:45 Al Hydroxide/Mg Hydroxide (Mylanta Plus Xs) 15 ml PRN AFTMEALHC PRN PO DYSPEPSIA; Start 02/12/18 at 21:45 Magnesium Hydroxide (Milk Of Magnesia) 2,400 mg PRN QHS PRN PO CONSTIPATION; Start 02/12/18 at 21:45 Carbamazepine (TEGretol) 150 mg BID PO ; Start 02/13/18 at 09:00; Stop 02/13/18 at 09:00; Status DC Carbamazepine (TEGretol) 300 mg BID PO Last administered on 02/17/18at 20:28; Start 02/13/18 at 09:00 Oxycodone/ Acetaminophen (Percocet 10/325) 1 tab PRN Q6HRS PRN PO PAIN Last administered on 02/15/18at 00:40; Start 02/12/18 at 22:30 Oxycodone/ Acetaminophen (Percocet 10/325) 1 tab PRN Q6HRS PRN PO PAIN; Start 02/12/18 at 22:30; Stop 02/12/18 at 22:40; Status DC Benztropine Mesylate (Cogentin) 0.5 mg BID PO Last administered on 02/17/18at 07 :25; Start 02/13/18 at 09:00; Stop 02/17/18 at 16:35; Status DC [place] Carbonate 300 mg DAILY PO Last administered on 02/17/18 07:25; Start 02/13/18 at 09:00 [place] Carbonate 450 mg QHS PO Last administered on 02/17/18 20:24; Start at 21:00 Risperidone (RisperDAL) 1 mg QHS PO Last administered on 02/13/18at 19:52; Start 02/13/18 at 21:00; Stop 02/14/18 at 19:16; Status DC Trazodone HCl (Desyrel) 50 mg QHS PO Last administered on 02/17/18 20:24; Start 02/13/18 at 21:00 Acetaminophen (Tylenol) 650 mg PRN Q6HRS PRN PO PAIN / TEMP; Start 02/12/18 at 22:30; Stop 02/12/18 at 22:32; Status DC Atorvastatin Calcium (Lipitor) 20 mg QHS PO Last administered on 02/17/18 20: 25; Start 02/13/18 at 21:00 Cyanocobalamin (Vitamin B-12) 1,000 mcg DAILY PO Last administered on 07:25; Start 02/13/18 at 09:00 Estradiol (Estrace) 1 speedy HS VG ; Start 02/13/18 at 21:00; Stop 02/14/18 at 00: 47; Status DC Lactobacillus Rhamnosus (Culturelle) 1 cap BID PO Last administered on at 20:24; Start 02/13/18 at 09:00 Levothyroxine Sodium (Synthroid) 75 mcg DAILYAC PO Last administered on at 09:42; Start 02/13/18 at 07:30; Stop 02/13/18 at 11:19; Status DC Multi-Ingredient Ointment (Analgesic [place]) 1 speedy PRN QID PRN TP MUSCLE PAIN; Start 02/12/18 at 22:30; Status Cancel Sodium Chloride ([place]) 1 inch HS OD Last administered on 02/17/18at 20:28; Start 02/13/18 at 21:00 Sorbitol (Sorbitol Solution) 1 ml PRN DAILY PRN PO CONSTIPATION; Start at 22:30; Status Cancel Amlodipine Besylate (Norvasc) 5 mg DAILY PO Last administered on 02/17/18at 07: 26; Start 02/13/18 at 09:00 Vitamin D (Vitamin D3) 50,000 unit WEEKLY PO ; Start 02/19/18 at 09:00; Stop at 09:00; Status DC Non-Formulary Medication (Mag Hydrox/ Aluminum Hyd/ Simeth (Maalox Advanced Suspension)) 15 ml PRN AFTMEALHC PRN PO DYSPEPSIA; Start 02/12/18 at 22:30; Stop 02/12/18 at 22:41; Status DC Non-Formulary Medication (Magnesium Hydroxide (Milk Of Magnesia)) 2,400 mg PRN DAILY PRN PO CONSTIPATION; Start 02/12/18 at 22:30; Stop 02/12/18 at 22:41; Status DC Polyethylene Glycol (miraLAX) 17 gm DAILY PO Last administered on 02/17/18at 07: 24; Start 02/13/18 at 09:00 Artificial Tears (Refresh Classic) 1 drop TID OU Last administered on at 20:25; Start 02/13/18 at 09:00 Non-Formulary Medication (Sodium Chloride ([place]-128)) 1 drop HS OD ; Start 02/13 at 21:00; Stop 02/13/18 at 21:00; Status DC Levothyroxine Sodium (Synthroid) 75 mcg DAILY06 PO Last administered on at 05:59; Start 02/14/18 at 06:00 Sorbitol (Sorbitol Solution) 30 ml PRN DAILY PRN PO CONSTIPATION; Start at 11:00 Estradiol (Estrace) 1 speedy QMTH VG Last administered on 02/16/18at 20:02; Start 02/16/18 at 21:00 Info (FLU VACCINE per PROTOCOL) 1 ea PRN 1X PRN MC PER PROTOCOL; Start at 09:00; Status UNV Risperidone (RisperDAL) 1.5 mg QHS PO Last administered on 02/17/18at 20:24; Start 02/14/18 at 21:00 Bupropion HCl (Wellbutrin Xl) 150 mg DAILY PO Last administered on 02/17/18at 07 :25; Start 02/15/18 at 09:00 Quetiapine Fumarate (SEROquel) 25 mg QHS PO Last administered on 02/17/18at 20: 28; Start 02/15/18 at 21:00 Hydroxyzine HCl (Atarax) 10 mg PRN Q2HR PRN PO anxiety; Start 02/16/18 at 16:30 Benztropine Mesylate (Cogentin) 0.5 mg DAILY PO ; Start 02/18/18 at 09:00 Mirtazapine (Remeron) 7.5 mg QHS PO Last administered on 02/17/18at 20:26; Start 02/17/18 at 21:00 Trazodone HCl (Desyrel) 50 mg PRN QHS PRN PO SEE ADMIN INSTRUCTIONS; Start 02/17/18 at 16:45 Active Scripts Active Reported Sorbitol (Sorbitol Solution) 1 Ml Solution 30 Ml PO PRN DAILY PRN Trazodone Hcl 50 Mg Tablet 50 Mg PO QHS Tegretol (Carbamazepine) 200 Mg Tablet 150 Mg PO BID Risperidone 1 Mg Tablet 1 Mg PO QHS Norvasc (Amlodipine Besylate) 5 Mg Tablet 5 Mg PO DAILY [place]-128 (Sodium Chloride) 3.5 Gm Oint...g. 1 Speedy OP HS Miralax (Polyethylene Glycol 3350) 17 Gm Powd.pack 17 Gm PO DAILY Milk Of Magnesia (Magnesium Hydroxide) 2,400 Mg/10 Ml Oral.susp 30 Ml PO PRN DAILY PRN [place] Carbonate 450 Mg Tablet.er 450 Mg PO HS [place] Carbonate 150 Mg Capsule 300 Mg PO DAILY Lipitor (Atorvastatin Calcium) 20 Mg Tablet 20 Mg PO QHS Levothyroxine Sodium 75 Mcg Tablet 75 Mcg PO DAILYAC Estrace (Estradiol) 42.5 Gm Cream.appl 1 Speedy VG 2X WEEK Q FRI, Vitamin D2 (Ergocalciferol (Vitamin D2)) 50,000 Unit Capsule 50,000 Unit PO WEEKLY Endocet 10-325 Mg Tablet (Oxycodone Hcl/Acetaminophen) 1 Each Tablet 1 Each PO PRN Q6HRS PRN Vitamin B-12 (Cyanocobalamin (Vitamin B-12)) 1,000 Mcg Tablet 1,000 Mcg PO DAILY Benztropine Mesylate 0.5 Mg Tablet 0.5 Mg PO BID Tylenol (Acetaminophen) 325 Mg Tablet 650 Mg PO PRN Q6HRS PRN Maalox Advanced Suspension (Mag Hydrox/Aluminum Hyd/Simeth) 355 Ml Oral.susp 15 Ml PO PRN AFTMEALHC PRN Analgesic [place] (Methyl Salicylate/Menthol) 28 Gm Oint...g. 1 Speedy TP PRN QID PRN [place] Carbonate 300 Mg Capsule 450 Mg PO QHS Benztropine Mesylate 0.5 Mg Tablet 0.5 Mg PO QHS Risperidone 1 Mg Tablet 1.5 Mg PO QHS Refresh Classic Eye Drops (Polyvinyl Alcohol/Povidone/Pf) 1 Each Droperette 1 Each OU TID Culturelle (Lactobacillus Rhamnosus Gg) 1 Each Cap.sprink 1 Each PO BID Trazodone Hcl 50 Mg Tablet 50 Mg PO PRN QHS PRN Trazodone Hcl 50 Mg Tablet 50 Mg PO HS Tegretol (Carbamazepine) 200 Mg Tablet 300 Mg PO BID Norvasc (Amlodipine Besylate) 5 Mg Tablet 5 Mg PO DAILY [place]-128 (Sodium Chloride) 15 Ml Drops 1 Drop OD HS Miralax (Polyethylene Glycol 3350) 17 Gm Powd.pack 17 Gm PO DAILY Milk Of Magnesia (Magnesium Hydroxide) 2,400 Mg/10 Ml Oral.susp 2,400 Mg PO PRN DAILY PRN [place] Carbonate 300 Mg Tablet 300 Mg PO DAILY Lipitor (Atorvastatin Calcium) 20 Mg Tablet 20 Mg PO QHS Levothyroxine Sodium 75 Mcg Tablet 75 Mcg PO DAILYAC Estrace (Estradiol) 42.5 Gm Cream.appl 1 Gm VG HS QMON/THURS Insert at bedtime on Friday and Vitamin D2 (Ergocalciferol (Vitamin D2)) 50,000 Unit Capsule 50,000 Unit PO WEEKLY Endocet 10-325 Mg Tablet (Oxycodone Hcl/Acetaminophen) 1 Each Tablet 1 Tab PO PRN Q6HRS PRN Tylenol (Acetaminophen) 325 Mg Tablet 650 Mg PO PRN Q6HRS PRN I have reviewed the current psychotropics carefully including drug interactions. Risk benefit ratio favors no change other than as noted in my dictated progress note. 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
--- NOTE | 2018-02-17 22:04 | PN ---
DATE: 02/16/2018 This is a late entry for 02/16/2018 covers elements not covered in my initial note. SUBJECTIVE: I met with the patient evening of 02/16/2018. The patient slept 7-1/2 hours previous evening. Per nursing report, she has had some facial tics. We will check with Dr. Mcneill on this for a Neurology consult, remains somewhat anxious. REVIEW OF SYSTEMS: No CV, , pulmonary, eye, ENT system symptoms on review. Reliability poor. MENTAL STATUS EXAM: Oriented to herself. Insight, judgment, recent memory is impaired, though some assessment of cognition is difficult since she is not very verbal. Abstraction fair, computation impaired, unable to do serial sevens or at least not verbalize this. Attention span short, remains somewhat paranoid, suspicious. No suicidal or homicidal ideation. LABORATORY DATA: Reviewed. IMPRESSION: Schizoaffective disorder, bipolar type, mixed with psychotic features; cognitive disorder, unspecified. Rest unchanged. Possible facial tics. PLAN: Add hydroxyzine 10 mg q. 2 hours p.r.n. anxiety, max 100 mg in 24 hours. Rest unchanged from initial note. MAN Rox WATT MD DR: SANCHEZ/fredrick JOB#: [id number] / [id number]
[2018-02-18 05:23] VITALS: BP 131/87
[2018-02-18] MEDS: LEVOTHYROXINE 75 MCG TABLET PO SCH (06:00)
[2018-02-18] MEDS: POLYVINYL ALCOHOL/POVIDONE/PF OPHTH SOLUTION DROPERETTE. OU SCH ×5 (09:00→21:00)
[2018-02-18] MEDS: CYANOCOBALAMIN (VITAMIN B-12) 1,000 MCG TABLET. PO SCH (09:14)
[2018-02-18] MEDS: LITHIUM CARBONATE 300 MG TABLET PO SCH ×3 (09:14→21:00)
[2018-02-18] MEDS: amLODIPine BESYLATE 5 MG TABLET PO SCH (09:14)
[2018-02-18] MEDS: carBAMazepine 100 MG TAB.CHEW PO SCH ×3 (09:14→21:00)
[2018-02-18] MEDS: LACTOBACILLUS RHAMNOSUS GG 1 CAPSULE. PO SCH ×3 (09:15→21:00)
[2018-02-18] MEDS: buPROPion XL 150 MG TAB.ER.24H PO SCH (09:15)
[2018-02-18] MEDS: POLYETHYLENE GLYCOL 3350 17 GM PACKET. PO SCH (09:15)
[2018-02-18] MEDS: BENZTROPINE MESYLATE 0.5 MG TABLET PO SCH (09:16)
--- NOTE | 2018-02-18 09:36 | RAD ---
CT HEAD WITHOUT CONTRAST 02/18/2018 8:59 AM Indication: SIGNIFICANT CHANGE IN BEHAVIOR Comparison: CT head without contrast December 26, 2017 Procedure: Multidetector CT imaging of the head was performed without the administration of contrast. Findings: There is no evidence of acute intracranial hemorrhage. There is no evidence of acute territorial infarction. Please note that CT is limited for evaluation of acute ischemia. No mass effect or midline shift is identified . The ventricles and basilar cisterns have a stable appearance. No abnormal extra-axial fluid collections are seen. Probable partially calcified meningioma in the superior anterior left frontal region noted. This is stable. No acute osseous changes are identified. Impression: No evidence of acute intracranial abnormality no acute change from prior study CT DOSING PQRS STATEMENT: One or more of the following individualized dose reduction techniques were utilized for this examination: 1. Automated exposure control 2. Adjustment of the mA and/or kV according to patient size 3. Use of iterative reconstruction technique Electronically signed by: Noe Latham MD (02/18/2018 9:33 AM) [id number]
[2018-02-18] MEDS: hydrOXYzine HCL 10 MG TABLET PO PRN (15:54)
[2018-02-18 16:37] VITALS: BP 166/78
[2018-02-18] MEDS: ATORVASTATIN CALCIUM 20 MG TABLET PO SCH ×2 (19:19→21:00)
[2018-02-18] MEDS: MIRTAZAPINE 7.5 MG TABLET. PO SCH ×2 (19:19→21:00)
[2018-02-18] MEDS: SODIUM CHLORIDE 5% OPHTH OINTMENT 3.5GM TUBE. OD SCH ×2 (19:19→21:00)
[2018-02-18] MEDS: risperiDONE 0.5 MG TABLET. PO SCH ×2 (19:20→21:00)
[2018-02-18] MEDS: QUEtiapine 25 MG TABLET. PO SCH ×2 (19:20→21:00)
[2018-02-18] MEDS: traZODone 50 MG TABLET. PO SCH ×2 (19:20→21:00)
--- NOTE | 2018-02-18 21:10 | PDOC ---
Exam Note: Julian Note: Please also refer to the separate dictated note~for this date of service dictated separately.~Patient seen individually. Discussed the patient with Nursing staff reviewed the chart.~Reviewed interim history and current functioning. Reviewed vital signs,~Labs/ Radiology~and current medications noted below. Continue current treatment with the changes noted in the dictated addendum note Assessment: Vital Signs: Vital Signs Date Time Temp Pulse Resp B/P (MAP) Pulse Ox O2 Delivery O2 Flow Rate FiO2 02/18/18 16:37 98.6 95 20 166/78 (107) 94 Room Air I&O Intake and Output 02/18/18 07:00 Intake Total 690 ml Balance 690 ml Intake Oral 690 ml Current Medications: Meds: Current Medications Acetaminophen (Tylenol) 650 mg PRN Q6HRS PRN PO PAIN / TEMP; Start 02/12/18 at 21:45 Multi-Ingredient Ointment (Analgesic [place]) 1 speedy PRN QID PRN TP MUSCLE PAIN; Start 02/12/18 at 21:45 Al Hydroxide/Mg Hydroxide (Mylanta Plus Xs) 15 ml PRN AFTMEALHC PRN PO DYSPEPSIA; Start 02/12/18 at 21:45 Magnesium Hydroxide (Milk Of Magnesia) 2,400 mg PRN QHS PRN PO CONSTIPATION; Start 02/12/18 at 21:45 Carbamazepine (TEGretol) 150 mg BID PO ; Start 02/13/18 at 09:00; Stop 02/13/18 at 09:00; Status DC Carbamazepine (TEGretol) 300 mg BID PO Last administered on 02/18/18at 19:19; Start 02/13/18 at 09:00 Oxycodone/ Acetaminophen (Percocet 10/325) 1 tab PRN Q6HRS PRN PO PAIN Last administered on 02/15/18at 00:40; Start 02/12/18 at 22:30 Oxycodone/ Acetaminophen (Percocet 10/325) 1 tab PRN Q6HRS PRN PO PAIN; Start 02/12/18 at 22:30; Stop 02/12/18 at 22:40; Status DC Benztropine Mesylate (Cogentin) 0.5 mg BID PO Last administered on 02/17/18at 07 :25; Start 02/13/18 at 09:00; Stop 02/17/18 at 16:35; Status DC [place] Carbonate 300 mg DAILY PO Last administered on 02/18/18 09:14; Start 02/13/18 at 09:00 [place] Carbonate 450 mg QHS PO Last administered on 02/18/18 19:23; Start at 21:00 Risperidone (RisperDAL) 1 mg QHS PO Last administered on 02/13/18at 19:52; Start 02/13/18 at 21:00; Stop 02/14/18 at 19:16; Status DC Trazodone HCl (Desyrel) 50 mg QHS PO Last administered on 02/18/18 19:20; Start 02/13/18 at 21:00 Acetaminophen (Tylenol) 650 mg PRN Q6HRS PRN PO PAIN / TEMP; Start 02/12/18 at 22:30; Stop 02/12/18 at 22:32; Status DC Atorvastatin Calcium (Lipitor) 20 mg QHS PO Last administered on 02/18/18 19: 19; Start 02/13/18 at 21:00 Cyanocobalamin (Vitamin B-12) 1,000 mcg DAILY PO Last administered on 09:14; Start 02/13/18 at 09:00 Estradiol (Estrace) 1 speedy HS VG ; Start 02/13/18 at 21:00; Stop 02/14/18 at 00: 47; Status DC Lactobacillus Rhamnosus (Culturelle) 1 cap BID PO Last administered on 19:19; Start 02/13/18 at 09:00 Levothyroxine Sodium (Synthroid) 75 mcg DAILYAC PO Last administered on at 09:42; Start 02/13/18 at 07:30; Stop 02/13/18 at 11:19; Status DC Multi-Ingredient Ointment (Analgesic [place]) 1 speedy PRN QID PRN TP MUSCLE PAIN; Start 02/12/18 at 22:30; Status Cancel Sodium Chloride ([place]) 1 inch HS OD Last administered on 02/18/18 19:19; Start 02/13/18 at 21:00 Sorbitol (Sorbitol Solution) 1 ml PRN DAILY PRN PO CONSTIPATION; Start at 22:30; Status Cancel Amlodipine Besylate (Norvasc) 5 mg DAILY PO Last administered on 02/18/18 09: 14; Start 02/13/18 at 09:00 Vitamin D (Vitamin D3) 50,000 unit WEEKLY PO ; Start 02/19/18 at 09:00; Stop at 09:00; Status DC Non-Formulary Medication (Mag Hydrox/ Aluminum Hyd/ Simeth (Maalox Advanced Suspension)) 15 ml PRN AFTMEALHC PRN PO DYSPEPSIA; Start 02/12/18 at 22:30; Stop 02/12/18 at 22:41; Status DC Non-Formulary Medication (Magnesium Hydroxide (Milk Of Magnesia)) 2,400 mg PRN DAILY PRN PO CONSTIPATION; Start 02/12/18 at 22:30; Stop 02/12/18 at 22:41; Status DC Polyethylene Glycol (miraLAX) 17 gm DAILY PO Last administered on 02/18/18at 09: 15; Start 02/13/18 at 09:00 Artificial Tears (Refresh Classic) 1 drop TID OU Last administered on at 19:20; Start 02/13/18 at 09:00 Non-Formulary Medication (Sodium Chloride ([place]-128)) 1 drop HS OD ; Start 02/13 at 21:00; Stop 02/13/18 at 21:00; Status DC Levothyroxine Sodium (Synthroid) 75 mcg DAILY06 PO Last administered on at 05:59; Start 02/14/18 at 06:00 Sorbitol (Sorbitol Solution) 30 ml PRN DAILY PRN PO CONSTIPATION; Start at 11:00 Estradiol (Estrace) 1 speedy QMTH VG Last administered on 02/16/18at 20:02; Start 02/16/18 at 21:00 Info (FLU VACCINE per PROTOCOL) 1 ea PRN 1X PRN MC PER PROTOCOL; Start at 09:00; Status UNV Risperidone (RisperDAL) 1.5 mg QHS PO Last administered on 02/18/18at 19:20; Start 02/14/18 at 21:00 Bupropion HCl (Wellbutrin Xl) 150 mg DAILY PO Last administered on 02/18/18at 09 :15; Start 02/15/18 at 09:00 Quetiapine Fumarate (SEROquel) 25 mg QHS PO Last administered on 02/18/18at 19: 20; Start 02/15/18 at 21:00 Hydroxyzine HCl (Atarax) 10 mg PRN Q2HR PRN PO anxiety Last administered on 02/18/18at 15:54; Start 02/16/18 at 16:30 Benztropine Mesylate (Cogentin) 0.5 mg DAILY PO Last administered on 02/18/18at 09:16; Start 02/18/18 at 09:00 Mirtazapine (Remeron) 7.5 mg QHS PO Last administered on 02/18/18at 19:19; Start 02/17/18 at 21:00 Trazodone HCl (Desyrel) 50 mg PRN QHS PRN PO SEE ADMIN INSTRUCTIONS; Start 02/17/18 at 16:45 Active Scripts Active Reported Sorbitol (Sorbitol Solution) 1 Ml Solution 30 Ml PO PRN DAILY PRN Trazodone Hcl 50 Mg Tablet 50 Mg PO QHS Tegretol (Carbamazepine) 200 Mg Tablet 150 Mg PO BID Risperidone 1 Mg Tablet 1 Mg PO QHS Norvasc (Amlodipine Besylate) 5 Mg Tablet 5 Mg PO DAILY [place]-128 (Sodium Chloride) 3.5 Gm Oint...g. 1 Speedy OP HS Miralax (Polyethylene Glycol 3350) 17 Gm Powd.pack 17 Gm PO DAILY Milk Of Magnesia (Magnesium Hydroxide) 2,400 Mg/10 Ml Oral.susp 30 Ml PO PRN DAILY PRN [place] Carbonate 450 Mg Tablet.er 450 Mg PO HS [place] Carbonate 150 Mg Capsule 300 Mg PO DAILY Lipitor (Atorvastatin Calcium) 20 Mg Tablet 20 Mg PO QHS Levothyroxine Sodium 75 Mcg Tablet 75 Mcg PO DAILYAC Estrace (Estradiol) 42.5 Gm Cream.appl 1 Speedy VG 2X WEEK Q MON, THURS Vitamin D2 (Ergocalciferol (Vitamin D2)) 50,000 Unit Capsule 50,000 Unit PO WEEKLY Endocet 10-325 Mg Tablet (Oxycodone Hcl/Acetaminophen) 1 Each Tablet 1 Each PO PRN Q6HRS PRN Vitamin B-12 (Cyanocobalamin (Vitamin B-12)) 1,000 Mcg Tablet 1,000 Mcg PO DAILY Benztropine Mesylate 0.5 Mg Tablet 0.5 Mg PO BID Tylenol (Acetaminophen) 325 Mg Tablet 650 Mg PO PRN Q6HRS PRN Maalox Advanced Suspension (Mag Hydrox/Aluminum Hyd/Simeth) 355 Ml Oral.susp 15 Ml PO PRN AFTMEALHC PRN Analgesic [place] (Methyl Salicylate/Menthol) 28 Gm Oint...g. 1 Speedy TP PRN QID PRN [place] Carbonate 300 Mg Capsule 450 Mg PO QHS Benztropine Mesylate 0.5 Mg Tablet 0.5 Mg PO QHS Risperidone 1 Mg Tablet 1.5 Mg PO QHS Refresh Classic Eye Drops (Polyvinyl Alcohol/Povidone/Pf) 1 Each Droperette 1 Each OU TID Culturelle (Lactobacillus Rhamnosus Gg) 1 Each Cap.sprink 1 Each PO BID Trazodone Hcl 50 Mg Tablet 50 Mg PO PRN QHS PRN Trazodone Hcl 50 Mg Tablet 50 Mg PO HS Tegretol (Carbamazepine) 200 Mg Tablet 300 Mg PO BID Norvasc (Amlodipine Besylate) 5 Mg Tablet 5 Mg PO DAILY [place]-128 (Sodium Chloride) 15 Ml Drops 1 Drop OD HS Miralax (Polyethylene Glycol 3350) 17 Gm Powd.pack 17 Gm PO DAILY Milk Of Magnesia (Magnesium Hydroxide) 2,400 Mg/10 Ml Oral.susp 2,400 Mg PO PRN DAILY PRN [place] Carbonate 300 Mg Tablet 300 Mg PO DAILY Lipitor (Atorvastatin Calcium) 20 Mg Tablet 20 Mg PO QHS Levothyroxine Sodium 75 Mcg Tablet 75 Mcg PO DAILYAC Estrace (Estradiol) 42.5 Gm Cream.appl 1 Gm VG HS QMON/THURS Insert at bedtime on Friday and Vitamin D2 (Ergocalciferol (Vitamin D2)) 50,000 Unit Capsule 50,000 Unit PO WEEKLY Endocet 10-325 Mg Tablet (Oxycodone Hcl/Acetaminophen) 1 Each Tablet 1 Tab PO PRN Q6HRS PRN Tylenol (Acetaminophen) 325 Mg Tablet 650 Mg PO PRN Q6HRS PRN I have reviewed the current psychotropics carefully including drug interactions. Risk benefit ratio favors no change other than as noted in my dictated progress note. 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
--- NOTE | 2018-02-18 21:55 | CONS ---
DATE OF CONSULTATION: 02/16/2018 REFERRING PHYSICIAN: Dr. Pinzon. REASON FOR CONSULTATION: Rule out movement disorder and mental status changes. HISTORY OF PRESENT ILLNESS: This is a 67-year-old female who was admitted to Psych Behavior Unit on the account of increased symptoms of depression, anxiety, insomnia, hallucination, and paranoia. Neuro consult was requested because the patient having abnormal movements of the face on the left. The patient denies chest pain, shortness of breath or palpitation, dysarthria, dysphagia or vertigo. PAST MEDICAL HISTORY: Significant for obstructive sleep apnea, dysphagia, generalized weakness, hypertension, hyperlipidemia and vitamin D deficiency. PAST PSYCHIATRIC HISTORY: Positive for bipolar disorder, mood disorders, insomnia, and cognitive impairment. FAMILY HISTORY: Noncontributory. SOCIAL HISTORY: The patient is resting on medical lawn chair. She denies smoking, alcohol drinking, or illicit drug use. CURRENT MEDICATIONS: Cogentin 0.5 mg daily, Remeron 7.5 mg at bedtime, trazodone 50 mg at bedtime, estradiol application per vagina daily, hydroxyzine 10 mg q.2 hours p.r.n. for anxiety, Seroquel 25 mg at bedtime, Wellbutrin XR 150 mg daily, Risperdal 1.5 mg at bedtime, levothyroxine 75 mcg daily, Lipitor 20 mg daily at bedtime, trazodone 50 mg at bedtime, sorbitol 30 mL p.r.n. for constipation, artificial tears noted to be 5 mg daily, carbamazepine 300 mg b.i.d., Tylenol 650 mg p.r.n., oxycodone 10/325 mg q.6 hours p.r.n. ALLERGIES: BENZODIAZEPINES, CLONAZEPAM, and LORAZEPAM. REVIEW OF SYSTEMS: A 10-point review of system was performed as mentioned above in history of present illness. PHYSICAL EXAMINATION: GENERAL: A well-developed, well-nourished female, not in acute distress. She weighs 170 pound. VITAL SIGNS: Blood pressure 150/90, respiratory rate 20, pulse is 98 regular, temperature 99.3, oxygen saturation 96% on room air. HEENT: Normocephalic, atraumatic, otherwise unremarkable. NECK: Supple, negative for carotid bruit, lymphadenopathy or thyromegaly. LUNGS: Clear to A and P. CARDIOVASCULAR: Regular rhythm, normal S1, S2. ABDOMEN: Soft. Bowel sounds positive. EXTREMITIES: Negative for cyanosis, clubbing or pitting edema. NEUROLOGIC: Mental status: The patient is alert and oriented x 3. Speech is clear. There is no obvious language dysfunction. Memory, judgment, and abstract thinking are fair. The patient denies hallucination or delusion. CRANIAL NERVES: 1. Visual [place] are full. The pupils are reactive to light and accommodation. The extraocular movements are intact. There is no nystagmus. There is no facial motor or sensory deficit. Hearing appears to be intact. The palate is elevated symmetrically. Sternocleidomastoid muscles are powerful bilaterally. The patient shrugs her shoulders symmetrically. Protrudes her tongue in the midline without fasciculation or atrophy. 2. Motor Examination: Revealed no focal muscle bulk was seen. The tone is normal. The strength is 4/5 throughout. 3. Sensory Examination: Revealed normal pinprick and light touch senses throughout. Deep tendon reflexes were symmetric and hypoactive with absent Achilles responses. Gait: The stance is steady. The patient was noted to have intermittent movements of the face, eyes, and smacking her lips. DIAGNOSTIC: Nonenhanced head CAT scan dated on 12/25/2017, revealed no acute intracranial process, which showed left frontal extraaxial meningioma along with chronic small vessel ischemic changes. LABORATORY DATA: CBC revealed white blood cells of 7200, hemoglobin 12.5, hematocrit 36.9, and platelet count 215,000. Chemistry revealed sodium of 141, potassium 4.3, chloride 108, CO2 30, BUN 5, creatinine 0.8, glucose 100, and calcium 10.2, liver enzymes are normal with elevated alkaline phosphatase at 147. Normal vitamin B12 and normal vitamin D. Urinalysis is moderate leukocytes and white blood cells of 5-10. . IMPRESSION: 1. Intermittent and involuntarily movement of the face, lips, etiology uncertain, probably due to underlying psychotropic medication, risperidone. 2. Possible urinary tract infections. 3. Multiple medical problems include hypertension, hyperlipidemia, and obstructive sleep apnea. 4. Abnormal head CT scan consistent with extraaxial left frontal lobe meningioma. RECOMMENDATION: 1. If the patient continues to have involuntarily movement over the face and lips, we may consider psychotropic medications. 2. Continue with current management initiated by Dr. Jacome from medical standpoint. 3. Physical therapy as tolerated. M Alber FUNES MD DR: MARILEE/fredrick JOB#: [id number] / [id number]
--- NOTE | 2018-02-19 00:27 | PN ---
DATE: 02/17/2018 PSYCHIATRIC PROGRESS NOTE This late entry 02/17/2018 covers elements not covered in my initial note. SUBJECTIVE: I met with the patient in the evening. The patient did not sleep at all previous evening, resistive to medications, exit seeking. CT head was done on 12/25/2017 and we will repeat it. We do have a Neurology consult with Dr. Mcneill. The patient was little more verbal with Dr. Mcneill. REVIEW OF SYSTEMS: No CV, , pulmonary, eye, ENT system symptoms on review. Reliability poor. MENTAL STATUS EXAM: Oriented to herself and situation. Speech moderate latency, often responses monosyllabic. Abstraction fair, computation impaired, language function intact, attention span short. Mood and affect withdrawn. LABORATORY DATA: Reviewed. IMPRESSION: Bipolar 1 disorder, mixed with psychotic features; anxiety disorder, unspecified. Rest unchanged. PLAN: We will reduce the Cogentin from 0.5 b.i.d. to 0.5 mg daily, increase trazodone from 50 mg at bedtime to 75 mg p.o. at bedtime. Rest unchanged including lithium, Tegretol, Wellbutrin at current dosage. MAN Rox WATT MD DR: SANCHEZ/fredrick JOB#: [id number] / [id number]
[2018-02-19] MEDS: LEVOTHYROXINE 75 MCG TABLET PO SCH (06:00)
[2018-02-19 06:02] VITALS: BP 180/107
[2018-02-19] MEDS: carBAMazepine 100 MG TAB.CHEW PO SCH ×3 (09:00→21:00)
[2018-02-19] MEDS: POLYETHYLENE GLYCOL 3350 17 GM PACKET. PO SCH (09:00)
[2018-02-19] MEDS: LACTOBACILLUS RHAMNOSUS GG 1 CAPSULE. PO SCH ×2 (09:00→21:46)
[2018-02-19] MEDS: POLYVINYL ALCOHOL/POVIDONE/PF OPHTH SOLUTION DROPERETTE. OU SCH ×3 (09:00→21:00)
[2018-02-19] MEDS: CYANOCOBALAMIN (VITAMIN B-12) 1,000 MCG TABLET. PO SCH (09:00)
[2018-02-19] MEDS ORDERED: CHOLECALCIFEROL (VITAMIN D3) 50,000 UNIT CAPSULE PO SCH (09:00)
[2018-02-19] MEDS: amLODIPine BESYLATE 5 MG TABLET PO SCH ×2 (09:00→13:30)
[2018-02-19] MEDS: BENZTROPINE MESYLATE 0.5 MG TABLET PO SCH ×2 (09:00→13:29)
[2018-02-19] MEDS: buPROPion XL 150 MG TAB.ER.24H PO SCH ×2 (09:00→13:30)
[2018-02-19] MEDS ORDERED: traZODone 100 MG TABLET. PO PRN (11:30)
[2018-02-19 15:43] VITALS: BP_SYST 165
[2018-02-19] MEDS: ESTRADIOL 0.01% VAGINAL CREAM 42.5GM TUBE. VG SCH (16:02)
[2018-02-19 17:00] VITALS: BP 156/108
[2018-02-19] MEDS ORDERED: amLODIPine BESYLATE 5 MG TABLET PO ONE (17:00)
--- NOTE | 2018-02-19 20:52 | PDOC ---
Exam Note: Julian Note: Please also refer to the separate dictated note~for this date of service dictated separately.~Patient seen individually. Discussed the patient with Nursing staff reviewed the chart.~Reviewed interim history and current functioning. Reviewed vital signs,~Labs/ Radiology~and current medications noted below. Continue current treatment with the changes noted in the dictated addendum note Assessment: Vital Signs: Vital Signs Date Time Temp Pulse Resp B/P (MAP) Pulse Ox O2 Delivery O2 Flow Rate FiO2 02/19/18 17:11 85 156/108 02/19/18 15:43 97.9 02/19/18 06:02 22 94 02/18/18 16:37 Room Air I&O Intake and Output 02/19/18 07:00 Intake Total 600 ml Balance 600 ml Intake Oral 600 ml # Voids 1 Current Medications: Meds: Current Medications Acetaminophen (Tylenol) 650 mg PRN Q6HRS PRN PO PAIN / TEMP; Start 02/12/18 at 21:45 Multi-Ingredient Ointment (Analgesic [place]) 1 speedy PRN QID PRN TP MUSCLE PAIN; Start 02/12/18 at 21:45 Al Hydroxide/Mg Hydroxide (Mylanta Plus Xs) 15 ml PRN AFTMEALHC PRN PO DYSPEPSIA; Start 02/12/18 at 21:45 Magnesium Hydroxide (Milk Of Magnesia) 2,400 mg PRN QHS PRN PO CONSTIPATION; Start 02/12/18 at 21:45 Carbamazepine (TEGretol) 150 mg BID PO ; Start 02/13/18 at 09:00; Stop 02/13/18 at 09:00; Status DC Carbamazepine (TEGretol) 300 mg BID PO Last administered on 02/19/18at 13:30; Start 02/13/18 at 09:00 Oxycodone/ Acetaminophen (Percocet 10/325) 1 tab PRN Q6HRS PRN PO PAIN Last administered on 02/15/18at 00:40; Start 02/12/18 at 22:30 Oxycodone/ Acetaminophen (Percocet 10/325) 1 tab PRN Q6HRS PRN PO PAIN; Start 02/12/18 at 22:30; Stop 02/12/18 at 22:40; Status DC Benztropine Mesylate (Cogentin) 0.5 mg BID PO Last administered on 02/17/18 07 :25; Start 02/13/18 at 09:00; Stop 02/17/18 at 16:35; Status DC [place] Carbonate 300 mg DAILY PO Last administered on 02/18/18at 09:14; Start 02/13/18 at 09:00; Stop 02/19/18 at 11:29; Status DC [place] Carbonate 450 mg QHS PO Last administered on 02/17/18 20:24; Start at 21:00; Stop 02/19/18 at 11:44; Status DC Risperidone (RisperDAL) 1 mg QHS PO Last administered on 02/13/18at 19:52; Start 02/13/18 at 21:00; Stop 02/14/18 at 19:16; Status DC Trazodone HCl (Desyrel) 50 mg QHS PO Last administered on 02/17/18 20:24; Start 02/13/18 at 21:00; Stop 02/19/18 at 11:29; Status DC Acetaminophen (Tylenol) 650 mg PRN Q6HRS PRN PO PAIN / TEMP; Start 02/12/18 at 22:30; Stop 02/12/18 at 22:32; Status DC Atorvastatin Calcium (Lipitor) 20 mg QHS PO Last administered on 02/17/18at 20: 25; Start 02/13/18 at 21:00 Cyanocobalamin (Vitamin B-12) 1,000 mcg DAILY PO Last administered on at 09:14; Start 02/13/18 at 09:00 Estradiol (Estrace) 1 speedy HS VG ; Start 02/13/18 at 21:00; Stop 02/14/18 at 00: 47; Status DC Lactobacillus Rhamnosus (Culturelle) 1 cap BID PO Last administered on at 09:15; Start 02/13/18 at 09:00 Levothyroxine Sodium (Synthroid) 75 mcg DAILYAC PO Last administered on at 09:42; Start 02/13/18 at 07:30; Stop 02/13/18 at 11:19; Status DC Multi-Ingredient Ointment (Analgesic [place]) 1 speedy PRN QID PRN TP MUSCLE PAIN; Start 02/12/18 at 22:30; Status Cancel Sodium Chloride (Elmer) 1 inch HS OD Last administered on 02/17/18at 20:28; Start 02/13/18 at 21:00 Sorbitol (Sorbitol Solution) 1 ml PRN DAILY PRN PO CONSTIPATION; Start at 22:30; Status Cancel Amlodipine Besylate (Norvasc) 5 mg DAILY PO Last administered on 02/19/18at 13: 30; Start 02/13/18 at 09:00; Stop 02/19/18 at 17:00; Status DC Vitamin D (Vitamin D3) 50,000 unit WEEKLY PO ; Start 02/19/18 at 09:00; Stop at 09:00; Status DC Non-Formulary Medication (Mag Hydrox/ Aluminum Hyd/ Simeth (Maalox Advanced Suspension)) 15 ml PRN AFTMEALHC PRN PO DYSPEPSIA; Start 02/12/18 at 22:30; Stop 02/12/18 at 22:41; Status DC Non-Formulary Medication (Magnesium Hydroxide (Milk Of Magnesia)) 2,400 mg PRN DAILY PRN PO CONSTIPATION; Start 02/12/18 at 22:30; Stop 02/12/18 at 22:41; Status DC Polyethylene Glycol (miraLAX) 17 gm DAILY PO Last administered on 02/18/18at 09: 15; Start 02/13/18 at 09:00 Artificial Tears (Refresh Classic) 1 drop TID OU Last administered on at 20:25; Start 02/13/18 at 09:00 Non-Formulary Medication (Sodium Chloride (Elmer-128)) 1 drop HS OD ; Start 02/13 at 21:00; Stop 02/13/18 at 21:00; Status DC Levothyroxine Sodium (Synthroid) 75 mcg DAILY06 PO Last administered on at 05:59; Start 02/14/18 at 06:00 Sorbitol (Sorbitol Solution) 30 ml PRN DAILY PRN PO CONSTIPATION; Start at 11:00 Estradiol (Estrace) 1 speedy QMTH VG Last administered on 02/16/18at 20:02; Start 02/16/18 at 21:00 Info (FLU VACCINE per PROTOCOL) 1 ea PRN 1X PRN MC PER PROTOCOL; Start at 09:00; Status UNV Risperidone (RisperDAL) 1.5 mg QHS PO Last administered on 02/17/18at 20:24; Start 02/14/18 at 21:00 Bupropion HCl (Wellbutrin Xl) 150 mg DAILY PO Last administered on 02/19/18at 13 :30; Start 02/15/18 at 09:00; Stop 02/19/18 at 16:58; Status DC Quetiapine Fumarate (SEROquel) 25 mg QHS PO Last administered on 02/17/18at 20: 28; Start 02/15/18 at 21:00; Stop 02/19/18 at 11:29; Status DC Hydroxyzine HCl (Atarax) 10 mg PRN Q2HR PRN PO anxiety Last administered on 02/18/18at 15:54; Start 02/16/18 at 16:30 Benztropine Mesylate (Cogentin) 0.5 mg DAILY PO Last administered on 02/19/18at 13:29; Start 02/18/18 at 09:00 Mirtazapine (Remeron) 7.5 mg QHS PO Last administered on 02/17/18at 20:26; Start 02/17/18 at 21:00 Trazodone HCl (Desyrel) 50 mg PRN QHS PRN PO SEE ADMIN INSTRUCTIONS; Start 02/17/18 at 16:45; Stop 02/19/18 at 11:29; Status DC Trazodone HCl (Desyrel) 100 mg QHS PO ; Start 02/19/18 at 21:00; Stop 02/19/18 at 21:00; Status DC Trazodone HCl (Desyrel) 100 mg PRN QHS PRN PO SEE ADMIN INSTRUCTIONS; Start at 11:30 Trazodone HCl (Desyrel) 100 mg QHS PO ; Start 02/19/18 at 21:00 Amlodipine Besylate (Norvasc) 10 mg DAILY PO ; Start 02/20/18 at 09:00 Amlodipine Besylate (Norvasc) 5 mg 1X ONCE PO Last administered on 02/19/18at 17:11; Start 02/19/18 at 17:00; Stop 02/19/18 at 17:06; Status DC Active Scripts Active Reported Sorbitol (Sorbitol Solution) 1 Ml Solution 30 Ml PO PRN DAILY PRN Trazodone Hcl 50 Mg Tablet 50 Mg PO QHS Tegretol (Carbamazepine) 200 Mg Tablet 150 Mg PO BID Risperidone 1 Mg Tablet 1 Mg PO QHS Norvasc (Amlodipine Besylate) 5 Mg Tablet 5 Mg PO DAILY [place]-128 (Sodium Chloride) 3.5 Gm Oint...g. 1 Speedy OP HS Miralax (Polyethylene Glycol 3350) 17 Gm Powd.pack 17 Gm PO DAILY Milk Of Magnesia (Magnesium Hydroxide) 2,400 Mg/10 Ml Oral.susp 30 Ml PO PRN DAILY PRN [place] Carbonate 450 Mg Tablet.er 450 Mg PO HS [place] Carbonate 150 Mg Capsule 300 Mg PO DAILY Lipitor (Atorvastatin Calcium) 20 Mg Tablet 20 Mg PO QHS Levothyroxine Sodium 75 Mcg Tablet 75 Mcg PO DAILYAC Estrace (Estradiol) 42.5 Gm Cream.appl 1 Speedy VG 2X WEEK Q FRI, THURS Vitamin D2 (Ergocalciferol (Vitamin D2)) 50,000 Unit Capsule 50,000 Unit PO WEEKLY Endocet 10-325 Mg Tablet (Oxycodone Hcl/Acetaminophen) 1 Each Tablet 1 Each PO PRN Q6HRS PRN Vitamin B-12 (Cyanocobalamin (Vitamin B-12)) 1,000 Mcg Tablet 1,000 Mcg PO DAILY Benztropine Mesylate 0.5 Mg Tablet 0.5 Mg PO BID Tylenol (Acetaminophen) 325 Mg Tablet 650 Mg PO PRN Q6HRS PRN Maalox Advanced Suspension (Mag Hydrox/Aluminum Hyd/Simeth) 355 Ml Oral.susp 15 Ml PO PRN AFTMEALHC PRN Analgesic [place] (Methyl Salicylate/Menthol) 28 Gm Oint...g. 1 Speedy TP PRN QID PRN [place] Carbonate 300 Mg Capsule 450 Mg PO QHS Benztropine Mesylate 0.5 Mg Tablet 0.5 Mg PO QHS Risperidone 1 Mg Tablet 1.5 Mg PO QHS Refresh Classic Eye Drops (Polyvinyl Alcohol/Povidone/Pf) 1 Each Droperette 1 Each OU TID Culturelle (Lactobacillus Rhamnosus Gg) 1 Each Cap.sprink 1 Each PO BID Trazodone Hcl 50 Mg Tablet 50 Mg PO PRN QHS PRN Trazodone Hcl 50 Mg Tablet 50 Mg PO HS Tegretol (Carbamazepine) 200 Mg Tablet 300 Mg PO BID Norvasc (Amlodipine Besylate) 5 Mg Tablet 5 Mg PO DAILY [place]-128 (Sodium Chloride) 15 Ml Drops 1 Drop OD HS Miralax (Polyethylene Glycol 3350) 17 Gm Powd.pack 17 Gm PO DAILY Milk Of Magnesia (Magnesium Hydroxide) 2,400 Mg/10 Ml Oral.susp 2,400 Mg PO PRN DAILY PRN [place] Carbonate 300 Mg Tablet 300 Mg PO DAILY Lipitor (Atorvastatin Calcium) 20 Mg Tablet 20 Mg PO QHS Levothyroxine Sodium 75 Mcg Tablet 75 Mcg PO DAILYAC Estrace (Estradiol) 42.5 Gm Cream.appl 1 Gm VG HS QMON/ Insert at bedtime on Friday and Vitamin D2 (Ergocalciferol (Vitamin D2)) 50,000 Unit Capsule 50,000 Unit PO WEEKLY Endocet 10-325 Mg Tablet (Oxycodone Hcl/Acetaminophen) 1 Each Tablet 1 Tab PO PRN Q6HRS PRN Tylenol (Acetaminophen) 325 Mg Tablet 650 Mg PO PRN Q6HRS PRN I have reviewed the current psychotropics carefully including drug interactions. Risk benefit ratio favors no change other than as noted in my dictated progress note. 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
[2018-02-19] MEDS: SODIUM CHLORIDE 5% OPHTH OINTMENT 3.5GM TUBE. OD SCH (21:00)
[2018-02-19] MEDS ORDERED: traZODone 50 MG TABLET. PO SCH (21:00)
[2018-02-19] MEDS: traZODone 100 MG TABLET. PO SCH (21:00)
[2018-02-19] MEDS: risperiDONE 0.5 MG TABLET. PO SCH (21:46)
[2018-02-19] MEDS: MIRTAZAPINE 7.5 MG TABLET. PO SCH (21:47)
[2018-02-19] MEDS: ATORVASTATIN CALCIUM 20 MG TABLET PO SCH (21:47)
--- NOTE | 2018-02-19 23:18 | PN ---
DATE: 02/18/2018 This late entry for 02/18/2018 covers elements not covered in my initial note. SUBJECTIVE: I met with the patient in the evening. Overall, the patient slept 8 hours previous evening. We are checking a UA since she has appeared more confused. Her daughter called her and the patient was more upset after the call, unable to express herself. We have done a CT head, unremarkable. She is having difficulty expressing herself, gets frustrated. REVIEW OF SYSTEMS: No CV, , pulmonary, eye, ENT system symptoms on review. MENTAL STATUS EXAM: Oriented to herself. Insight limited, judgment marginal, language function intact. She is not very verbal at all. Mood and affect somewhat anxious, labile, appears perplexed at times. LABORATORY DATA: Reviewed. IMPRESSION: Bipolar 1 disorder, mixed with psychotic features. Rest unchanged. PLAN: Check UA. May repeat labs as well. Continue lithium, Tegretol, Risperdal, Remeron. Cogentin was reduced. We may stop the Wellbutrin as well. MAN Rox WATT MD DR: SANCHEZ/fredrick JOB#: [id number] / [id number]
[2018-02-20 05:49] VITALS: BP 151/83
[2018-02-20 07:40] LABS: BASO % 0 % (0-3); EOS # 0.3 x10^3/uL (0.0-0.7); EOS % 5 % (0-3); HEMATOCRIT 38.5 % (36.0-47.0); HEMOGLOBIN 13.2 g/dL (12.0-15.5); LYMPH # 1.4 x10^3/uL (1.0-4.8); LYMPH % 23 % (24-48); MEAN CORPUSCULAR HEMOGLOBIN 31 pg (25-35); MEAN CORPUSCULAR HGB CONC 34 g/dL (31-37); MEAN CORPUSCULAR VOLUME 91 fL (79-100); MONO # 0.7 x10^3/uL (0.0-1.1); MONO % 11 % (0-9); NEUT # 3.7 x10^3uL (1.8-7.7); NEUT % 61 % (31-73); PLATELET COUNT 203 x10^3/uL (140-400); RED BLOOD COUNT 4.22 x10^6/uL (3.50-5.40); WHITE BLOOD COUNT 6.1 x10^3/uL (4.0-11.0)
[2018-02-20 07:43] LABS: ALBUMIN 3.4 g/dL (3.4-5.0); ALBUMIN/GLOBULIN RATIO 0.9 (1.0-1.7); CALCIUM 10.8 mg/dL (8.5-10.1); CREATININE 0.8 mg/dL (0.6-1.0); GFR 71.3; POTASSIUM 4.1 mmol/L (3.5-5.1); TOTAL BILIRUBIN 0.4 mg/dL (0.2-1.0); TOTAL PROTEIN 7.2 g/dL (6.4-8.2)
[2018-02-20] MEDS: LACTOBACILLUS RHAMNOSUS GG 1 CAPSULE. PO SCH ×3 (10:22→20:28)
[2018-02-20] MEDS: LEVOTHYROXINE 75 MCG TABLET PO SCH ×2 (10:22→11:10)
[2018-02-20] MEDS: BENZTROPINE MESYLATE 0.5 MG TABLET PO SCH ×2 (10:22→14:14)
[2018-02-20] MEDS: carBAMazepine 100 MG TAB.CHEW PO SCH ×3 (10:22→20:30)
[2018-02-20] MEDS: POLYETHYLENE GLYCOL 3350 17 GM PACKET. PO SCH ×2 (10:23→11:11)
[2018-02-20] MEDS: POLYVINYL ALCOHOL/POVIDONE/PF OPHTH SOLUTION DROPERETTE. OU SCH ×4 (10:23→20:29)
[2018-02-20] MEDS: CYANOCOBALAMIN (VITAMIN B-12) 1,000 MCG TABLET. PO SCH ×2 (10:23→11:11)
[2018-02-20] MEDS: amLODIPine BESYLATE 10 MG TABLET PO SCH ×2 (10:24→14:14)
[2018-02-20 11:05] LABS: BILIRUBIN,URINE NEG (NEG); CLARITY,URINE HAZY; COLOR,URINE AMBER; GLUCOSE,URINE NEG (NEG)
[2018-02-20 11:06] LABS: BACTERIA,URINE FEW /HPF (0-FEW); NITRITE,URINE NEG (NEG); RBC,URINE 0 /HPF (0-2); SQUAMOUS EPITHELIAL CELL,UR OCC /LPF; UROBILINOGEN,URINE 1 mg/dL (0.2 mg/dL)
[2018-02-20 16:18] VITALS: BP 184/76
[2018-02-20 19:17] VITALS: BP 119/76
--- NOTE | 2018-02-20 20:18 | PDOC ---
Exam Note: Julian Note: Please also refer to the separate dictated note~for this date of service dictated separately.~Patient seen individually. Discussed the patient with Nursing staff reviewed the chart.~Reviewed interim history and current functioning. Reviewed vital signs,~Labs/ Radiology~and current medications noted below. Continue current treatment with the changes noted in the dictated addendum note Assessment: Vital Signs: Vital Signs Date Time Temp Pulse Resp B/P (MAP) Pulse Ox O2 Delivery O2 Flow Rate FiO2 02/20/18 19:17 98.9 132 21 119/76 (90) 97 02/20/18 16:18 Room Air I&O Intake and Output 02/20/18 07:00 Intake Total 360 ml Balance 360 ml Intake Oral 360 ml Labs: Laboratory Tests Test 02/20/18 07:00 02/20/18 10:41 White Blood Count 6.1 x10^3/uL (4.0-11.0) Red Blood Count 4.22 x10^6/uL (3.50-5.40) Hemoglobin 13.2 g/dL (12.0-15.5) Hematocrit 38.5 % (36.0-47.0) Mean Corpuscular Volume 91 fL (79-100) Mean Corpuscular Hemoglobin 31 pg (25-35) Mean Corpuscular Hemoglobin Concent 34 g/dL (31-37) Red Cell Distribution Width 13.0 % (11.5-14.5) Platelet Count 203 x10^3/uL (140-400) Neutrophils (%) (Auto) 61 % (31-73) Lymphocytes (%) (Auto) 23 % (24-48) L Monocytes (%) (Auto) 11 % (0-9) H Eosinophils (%) (Auto) 5 % (0-3) H Basophils (%) (Auto) 0 % (0-3) Neutrophils # (Auto) 3.7 x10^3uL (1.8-7.7) Lymphocytes # (Auto) 1.4 x10^3/uL (1.0-4.8) Monocytes # (Auto) 0.7 x10^3/uL (0.0-1.1) Eosinophils # (Auto) 0.3 x10^3/uL (0.0-0.7) Basophils # (Auto) 0.0 x10^3/uL (0.0-0.2) Sodium Level 141 mmol/L (136-145) Potassium Level 4.1 mmol/L (3.5-5.1) Chloride Level 106 mmol/L (98-107) Carbon Dioxide Level 31 mmol/L (21-32) Anion Gap 4 (6-14) L Blood Urea Nitrogen 12 mg/dL (7-20) Creatinine 0.8 mg/dL (0.6-1.0) Estimated GFR (Cockcroft-Gault) 71.3 BUN/Creatinine Ratio 15 (6-20) Glucose Level 94 mg/dL (70-99) Calcium Level 10.8 mg/dL (8.5-10.1) H Total Bilirubin 0.4 mg/dL (0.2-1.0) Aspartate Amino Transferase (AST) 33 U/L (15-37) Alanine Aminotransferase (ALT) 31 U/L (14-59) Alkaline Phosphatase 143 U/L (46-116) H Total Protein 7.2 g/dL (6.4-8.2) Albumin 3.4 g/dL (3.4-5.0) Albumin/Globulin Ratio 0.9 (1.0-1.7) L Urine Collection Type Unknown Urine Color Bonnie Urine Clarity Hazy Urine pH 6.5 Urine Specific [place] 1.015 Urine Protein Neg (NEG-TRACE) Urine Glucose (UA) Neg mg/dL (NEG) Urine Ketones (Stick) 15 mg/dL (NEG) Urine Blood Neg (NEG) Urine Nitrite Neg (NEG) Urine Bilirubin Neg (NEG) Urine Urobilinogen Dipstick 1 mg/dL (0.2 mg/dL) Urine Leukocyte Esterase Trace (NEG) Urine RBC 0 /HPF (0-2) Urine WBC 1-4 /HPF (0-4) Urine Squamous Epithelial Cells Occ /LPF Urine Transitional Epithelial Cells Occ /LPF Urine Bacteria Few /HPF (0-FEW) Urine Mucus Slight /LPF Current Medications: Meds: Current Medications Acetaminophen (Tylenol) 650 mg PRN Q6HRS PRN PO PAIN / TEMP; Start 02/12/18 at 21:45 Multi-Ingredient Ointment (Analgesic [place]) 1 speedy PRN QID PRN TP MUSCLE PAIN; Start 02/12/18 at 21:45 Al Hydroxide/Mg Hydroxide (Mylanta Plus Xs) 15 ml PRN AFTMEALHC PRN PO DYSPEPSIA; Start 02/12/18 at 21:45 Magnesium Hydroxide (Milk Of Magnesia) 2,400 mg PRN QHS PRN PO CONSTIPATION; Start 02/12/18 at 21:45 Carbamazepine (TEGretol) 150 mg BID PO ; Start 02/13/18 at 09:00; Stop 02/13/18 at 09:00; Status DC Carbamazepine (TEGretol) 300 mg BID PO Last administered on 02/19/18at 13:30; Start 02/13/18 at 09:00 Oxycodone/ Acetaminophen (Percocet 10/325) 1 tab PRN Q6HRS PRN PO PAIN Last administered on 02/15/18at 00:40; Start 02/12/18 at 22:30 Oxycodone/ Acetaminophen (Percocet 10/325) 1 tab PRN Q6HRS PRN PO PAIN; Start 02/12/18 at 22:30; Stop 02/12/18 at 22:40; Status DC Benztropine Mesylate (Cogentin) 0.5 mg BID PO Last administered on 02/17/18at 07 :25; Start 02/13/18 at 09:00; Stop 02/17/18 at 16:35; Status DC [place] Carbonate 300 mg DAILY PO Last administered on 02/18/18at 09:14; Start 02/13/18 at 09:00; Stop 02/19/18 at 11:29; Status DC [place] Carbonate 450 mg QHS PO Last administered on 02/17/18at 20:24; Start at 21:00; Stop 02/19/18 at 11:44; Status DC Risperidone (RisperDAL) 1 mg QHS PO Last administered on 02/13/18at 19:52; Start 02/13/18 at 21:00; Stop 02/14/18 at 19:16; Status DC Trazodone HCl (Desyrel) 50 mg QHS PO Last administered on 02/17/18at 20:24; Start 02/13/18 at 21:00; Stop 02/19/18 at 11:29; Status DC Acetaminophen (Tylenol) 650 mg PRN Q6HRS PRN PO PAIN / TEMP; Start 02/12/18 at 22:30; Stop 02/12/18 at 22:32; Status DC Atorvastatin Calcium (Lipitor) 20 mg QHS PO Last administered on 02/19/18at 21: 47; Start 02/13/18 at 21:00 Cyanocobalamin (Vitamin B-12) 1,000 mcg DAILY PO Last administered on at 09:14; Start 02/13/18 at 09:00 Estradiol (Estrace) 1 speedy HS VG ; Start 02/13/18 at 21:00; Stop 02/14/18 at 00: 47; Status DC Lactobacillus Rhamnosus (Culturelle) 1 cap BID PO Last administered on at 21:46; Start 02/13/18 at 09:00 Levothyroxine Sodium (Synthroid) 75 mcg DAILYAC PO Last administered on at 09:42; Start 02/13/18 at 07:30; Stop 02/13/18 at 11:19; Status DC Multi-Ingredient Ointment (Analgesic [place]) 1 speedy PRN QID PRN TP MUSCLE PAIN; Start 02/12/18 at 22:30; Status Cancel Sodium Chloride ([place]) 1 inch HS OD Last administered on 02/17/18at 20:28; Start 02/13/18 at 21:00 Sorbitol (Sorbitol Solution) 1 ml PRN DAILY PRN PO CONSTIPATION; Start at 22:30; Status Cancel Amlodipine Besylate (Norvasc) 5 mg DAILY PO Last administered on 02/19/18at 13: 30; Start 02/13/18 at 09:00; Stop 02/19/18 at 17:00; Status DC Vitamin D (Vitamin D3) 50,000 unit WEEKLY PO ; Start 02/19/18 at 09:00; Stop at 09:00; Status DC Non-Formulary Medication (Mag Hydrox/ Aluminum Hyd/ Simeth (Maalox Advanced Suspension)) 15 ml PRN AFTMEALHC PRN PO DYSPEPSIA; Start 02/12/18 at 22:30; Stop 02/12/18 at 22:41; Status DC Non-Formulary Medication (Magnesium Hydroxide (Milk Of Magnesia)) 2,400 mg PRN DAILY PRN PO CONSTIPATION; Start 02/12/18 at 22:30; Stop 02/12/18 at 22:41; Status DC Polyethylene Glycol (miraLAX) 17 gm DAILY PO Last administered on 02/18/18 09: 15; Start 02/13/18 at 09:00 Artificial Tears (Refresh Classic) 1 drop TID OU Last administered on 20:25; Start 02/13/18 at 09:00 Non-Formulary Medication (Sodium Chloride ([place]-128)) 1 drop HS OD ; Start 02/13 at 21:00; Stop 02/13/18 at 21:00; Status DC Levothyroxine Sodium (Synthroid) 75 mcg DAILY06 PO Last administered on 05:59; Start 02/14/18 at 06:00 Sorbitol (Sorbitol Solution) 30 ml PRN DAILY PRN PO CONSTIPATION; Start at 11:00 Estradiol (Estrace) 1 speedy QMTH VG Last administered on 02/16/18at 20:02; Start 02/16/18 at 21:00 Info (FLU VACCINE per PROTOCOL) 1 ea PRN 1X PRN MC PER PROTOCOL; Start at 09:00; Status UNV Risperidone (RisperDAL) 1.5 mg QHS PO Last administered on 02/19/18 21:46; Start 02/14/18 at 21:00 Bupropion HCl (Wellbutrin Xl) 150 mg DAILY PO Last administered on 02/19/18 13 :30; Start 02/15/18 at 09:00; Stop 02/19/18 at 16:58; Status DC Quetiapine Fumarate (SEROquel) 25 mg QHS PO Last administered on 02/17/18 20: 28; Start 02/15/18 at 21:00; Stop 02/19/18 at 11:29; Status DC Hydroxyzine HCl (Atarax) 10 mg PRN Q2HR PRN PO anxiety Last administered on 15:54; Start 02/16/18 at 16:30 Benztropine Mesylate (Cogentin) 0.5 mg DAILY PO Last administered on 02/19/18 13:29; Start 02/18/18 at 09:00 Mirtazapine (Remeron) 7.5 mg QHS PO Last administered on 02/19/18 21:47; Start 02/17/18 at 21:00 Trazodone HCl (Desyrel) 50 mg PRN QHS PRN PO SEE ADMIN INSTRUCTIONS; Start 02/17/18 at 16:45; Stop 02/19/18 at 11:29; Status DC Trazodone HCl (Desyrel) 100 mg QHS PO ; Start 02/19/18 at 21:00; Stop 02/19/18 at 21:00; Status DC Trazodone HCl (Desyrel) 100 mg PRN QHS PRN PO SEE ADMIN INSTRUCTIONS; Start at 11:30 Trazodone HCl (Desyrel) 100 mg QHS PO ; Start 02/19/18 at 21:00 Amlodipine Besylate (Norvasc) 10 mg DAILY PO ; Start 02/20/18 at 09:00 Amlodipine Besylate (Norvasc) 5 mg 1X ONCE PO Last administered on 02/19/18at 17:11; Start 02/19/18 at 17:00; Stop 02/19/18 at 17:06; Status DC Active Scripts Active Reported Sorbitol (Sorbitol Solution) 1 Ml Solution 30 Ml PO PRN DAILY PRN Trazodone Hcl 50 Mg Tablet 50 Mg PO QHS Tegretol (Carbamazepine) 200 Mg Tablet 150 Mg PO BID Risperidone 1 Mg Tablet 1 Mg PO QHS Norvasc (Amlodipine Besylate) 5 Mg Tablet 5 Mg PO DAILY [place]-128 (Sodium Chloride) 3.5 Gm Oint...g. 1 Speedy OP HS Miralax (Polyethylene Glycol 3350) 17 Gm Powd.pack 17 Gm PO DAILY Milk Of Magnesia (Magnesium Hydroxide) 2,400 Mg/10 Ml Oral.susp 30 Ml PO PRN DAILY PRN [place] Carbonate 450 Mg Tablet.er 450 Mg PO HS [place] Carbonate 150 Mg Capsule 300 Mg PO DAILY Lipitor (Atorvastatin Calcium) 20 Mg Tablet 20 Mg PO QHS Levothyroxine Sodium 75 Mcg Tablet 75 Mcg PO DAILYAC Estrace (Estradiol) 42.5 Gm Cream.appl 1 Speedy VG 2X WEEK Q MON, TH Vitamin D2 (Ergocalciferol (Vitamin D2)) 50,000 Unit Capsule 50,000 Unit PO WEEKLY Endocet 10-325 Mg Tablet (Oxycodone Hcl/Acetaminophen) 1 Each Tablet 1 Each PO PRN Q6HRS PRN Vitamin B-12 (Cyanocobalamin (Vitamin B-12)) 1,000 Mcg Tablet 1,000 Mcg PO DAILY Benztropine Mesylate 0.5 Mg Tablet 0.5 Mg PO BID Tylenol (Acetaminophen) 325 Mg Tablet 650 Mg PO PRN Q6HRS PRN Maalox Advanced Suspension (Mag Hydrox/Aluminum Hyd/Simeth) 355 Ml Oral.susp 15 Ml PO PRN AFTMEALHC PRN Analgesic [place] (Methyl Salicylate/Menthol) 28 Gm Oint...g. 1 Speedy TP PRN QID PRN [place] Carbonate 300 Mg Capsule 450 Mg PO QHS Benztropine Mesylate 0.5 Mg Tablet 0.5 Mg PO QHS Risperidone 1 Mg Tablet 1.5 Mg PO QHS Refresh Classic Eye Drops (Polyvinyl Alcohol/Povidone/Pf) 1 Each Droperette 1 Each OU TID Culturelle (Lactobacillus Rhamnosus Gg) 1 Each Cap.sprink 1 Each PO BID Trazodone Hcl 50 Mg Tablet 50 Mg PO PRN QHS PRN Trazodone Hcl 50 Mg Tablet 50 Mg PO HS Tegretol (Carbamazepine) 200 Mg Tablet 300 Mg PO BID Norvasc (Amlodipine Besylate) 5 Mg Tablet 5 Mg PO DAILY [place]-128 (Sodium Chloride) 15 Ml Drops 1 Drop OD HS Miralax (Polyethylene Glycol 3350) 17 Gm Powd.pack 17 Gm PO DAILY Milk Of Magnesia (Magnesium Hydroxide) 2,400 Mg/10 Ml Oral.susp 2,400 Mg PO PRN DAILY PRN [place] Carbonate 300 Mg Tablet 300 Mg PO DAILY Lipitor (Atorvastatin Calcium) 20 Mg Tablet 20 Mg PO QHS Levothyroxine Sodium 75 Mcg Tablet 75 Mcg PO DAILYAC Estrace (Estradiol) 42.5 Gm Cream.appl 1 Gm VG HS QMON/THURS Insert at bedtime on Friday and Vitamin D2 (Ergocalciferol (Vitamin D2)) 50,000 Unit Capsule 50,000 Unit PO WEEKLY Endocet 10-325 Mg Tablet (Oxycodone Hcl/Acetaminophen) 1 Each Tablet 1 Tab PO PRN Q6HRS PRN Tylenol (Acetaminophen) 325 Mg Tablet 650 Mg PO PRN Q6HRS PRN I have reviewed the current psychotropics carefully including drug interactions. Risk benefit ratio favors no change other than as noted in my dictated progress note. 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
[2018-02-20] MEDS: traZODone 100 MG TABLET. PO SCH (20:28)
[2018-02-20] MEDS: MIRTAZAPINE 7.5 MG TABLET. PO SCH (20:28)
[2018-02-20] MEDS: ATORVASTATIN CALCIUM 20 MG TABLET PO SCH (20:28)
[2018-02-20] MEDS: risperiDONE 0.5 MG TABLET. PO SCH (20:28)
[2018-02-20] MEDS: SODIUM CHLORIDE 5% OPHTH OINTMENT 3.5GM TUBE. OD SCH (20:29)
--- NOTE | 2018-02-21 04:24 | PN ---
DATE: 02/19/2018 This is a late entry for 02/19/2018 covers elements not covered in my initial note. SUBJECTIVE: I met with the patient in the evening, staffed at a treatment team meeting with the entire team in the morning and also met with the patient's in the evening. The patient slept 1 hour previous evening, refusing medications, assessments, has a shuffling gait. expressed concerns that in the past, she has appeared similarly confused and disoriented when lithium level has been somewhat elevated. [place] level with us has been 1.0, but given the fact that she is additionally on Risperdal and Cogentin, trazodone, Wellbutrin, Remeron, we will go ahead and stop the lithium on a trial basis. She refused her meds and assessment. CT head is unremarkable. REVIEW OF SYSTEMS: No CV, , pulmonary, eye system symptoms on review. MENTAL STATUS EXAM: Oriented to herself and situation. Speech moderate latency, often responses monosyllabic. Abstraction fair, computation impaired. Attention span short. Language function intact. Mood and affect remain somewhat withdrawn. LABORATORY DATA: Reviewed. IMPRESSION: Bipolar 1 disorder, depressed with psychotic features. Rest unchanged. PLAN: Increase trazodone from 50 at bedtime to 100 at bedtime, may repeat x 1 for insomnia, stop the lithium, stop Seroquel 25 mg at bedtime since she is on Risperdal 1.5 mg at bedtime. Make further adjustments as clinically indicated. KIERSTEN WATT MD DR: SANCHEZ/fredrick JOB#: [id number] / [id number]
[2018-02-21 05:56] VITALS: BP 154/90
[2018-02-21] MEDS: LEVOTHYROXINE 75 MCG TABLET PO SCH (06:00)
[2018-02-21] MEDS: carBAMazepine 100 MG TAB.CHEW PO SCH ×2 (09:00→19:29)
[2018-02-21] MEDS: LACTOBACILLUS RHAMNOSUS GG 1 CAPSULE. PO SCH ×3 (09:00→21:00)
[2018-02-21] MEDS: CYANOCOBALAMIN (VITAMIN B-12) 1,000 MCG TABLET. PO SCH (09:00)
[2018-02-21] MEDS: amLODIPine BESYLATE 10 MG TABLET PO SCH (09:00)
[2018-02-21] MEDS: POLYVINYL ALCOHOL/POVIDONE/PF OPHTH SOLUTION DROPERETTE. OU SCH ×3 (09:00→19:25)
[2018-02-21] MEDS: BENZTROPINE MESYLATE 0.5 MG TABLET PO SCH (09:00)
[2018-02-21] MEDS: POLYETHYLENE GLYCOL 3350 17 GM PACKET. PO SCH (09:00)
[2018-02-21] MEDS: traZODone 100 MG TABLET. PO SCH (19:26)
[2018-02-21] MEDS: ATORVASTATIN CALCIUM 20 MG TABLET PO SCH ×2 (19:26→21:00)
[2018-02-21] MEDS: MIRTAZAPINE 7.5 MG TABLET. PO SCH ×2 (19:26→21:00)
[2018-02-21] MEDS: risperiDONE 0.5 MG TABLET. PO SCH (19:26)
[2018-02-21] MEDS: SODIUM CHLORIDE 5% OPHTH OINTMENT 3.5GM TUBE. OD SCH (19:55)
[2018-02-22] MEDS: LEVOTHYROXINE 75 MCG TABLET PO SCH (06:01)
[2018-02-22 06:30] VITALS: BP 135/73
[2018-02-22] MEDS: LACTOBACILLUS RHAMNOSUS GG 1 CAPSULE. PO SCH ×2 (08:00→17:00)
[2018-02-22] MEDS: CYANOCOBALAMIN (VITAMIN B-12) 1,000 MCG TABLET. PO SCH (09:00)
[2018-02-22] MEDS: POLYETHYLENE GLYCOL 3350 17 GM PACKET. PO SCH (09:00)
[2018-02-22] MEDS: POLYVINYL ALCOHOL/POVIDONE/PF OPHTH SOLUTION DROPERETTE. OU SCH ×3 (09:00→20:51)
[2018-02-22] MEDS: BENZTROPINE MESYLATE 0.5 MG TABLET PO SCH (09:36)
[2018-02-22] MEDS: carBAMazepine 100 MG TAB.CHEW PO SCH ×2 (09:36→17:17)
[2018-02-22] MEDS: amLODIPine BESYLATE 10 MG TABLET PO SCH (09:36)
[2018-02-22 15:32] VITALS: BP 159/90
[2018-02-22] MEDS ORDERED: carBAMazepine 100 MG TAB.CHEW PO SCH (17:00)
[2018-02-22] MEDS: ATORVASTATIN CALCIUM 20 MG TABLET PO SCH (17:00)
[2018-02-22] MEDS: MIRTAZAPINE 7.5 MG TABLET. PO SCH (17:16)
[2018-02-22] MEDS: traZODone 100 MG TABLET. PO SCH (17:17)
[2018-02-22] MEDS: risperiDONE 0.5 MG TABLET. PO SCH (17:17)
--- NOTE | 2018-02-22 20:24 | PDOC ---
Exam Note: Julian Note: Late entry for date of service February. Please also refer to the separate dictated note~for this date of service dictated separately.~Patient seen individually. Discussed the patient with Nursing staff reviewed the chart.~ Reviewed interim history and current functioning. Reviewed vital signs,~Labs/ Radiology~and current medications noted below. Continue current treatment with the changes noted in the dictated addendum note Assessment: Vital Signs: VS - Last 72 Hours, by Label Date Time Temp Pulse Resp B/P (MAP) Pulse Ox O2 Delivery O2 Flow Rate FiO2 02/22/18 15:32 97.4 74 18 159/90 (113) 97 02/22/18 09:36 75 135/73 02/22/18 06:30 98.5 75 20 135/73 (93) 95 Room Air 02/21/18 05:56 96.7 90 22 154/90 (111) 98 02/20/18 19:17 98.9 132 21 119/76 (90) 97 02/20/18 16:18 98.2 24 99 Room Air 02/20/18 14:14 71 151/83 02/20/18 05:49 98.0 71 18 151/83 (105) 95 Room Air Vital Signs Date Time Temp Pulse Resp B/P (MAP) Pulse Ox O2 Delivery O2 Flow Rate FiO2 02/22/18 15:32 97.4 74 18 159/90 (113) 97 02/22/18 06:30 Room Air I&O Intake and Output 02/22/18 06:59 Intake Total 480 ml Balance 480 ml Intake Oral 480 ml Current Medications: Meds: Current Medications Acetaminophen (Tylenol) 650 mg PRN Q6HRS PRN PO PAIN / TEMP; Start 02/12/18 at 21:45 Multi-Ingredient Ointment (Analgesic [place]) 1 speedy PRN QID PRN TP MUSCLE PAIN; Start 02/12/18 at 21:45 Al Hydroxide/Mg Hydroxide (Mylanta Plus Xs) 15 ml PRN AFTMEALHC PRN PO DYSPEPSIA; Start 02/12/18 at 21:45 Magnesium Hydroxide (Milk Of Magnesia) 2,400 mg PRN QHS PRN PO CONSTIPATION; Start 02/12/18 at 21:45 Carbamazepine (TEGretol) 150 mg BID PO ; Start 02/13/18 at 09:00; Stop 02/13/18 at 09:00; Status DC Carbamazepine (TEGretol) 300 mg BID PO Last administered on 02/21/18at 19:29; Start 02/13/18 at 09:00; Stop 02/21/18 at 23:54; Status DC Oxycodone/ Acetaminophen (Percocet 10/325) 1 tab PRN Q6HRS PRN PO PAIN Last administered on 02/15/18at 00:40; Start 02/12/18 at 22:30 Oxycodone/ Acetaminophen (Percocet 10/325) 1 tab PRN Q6HRS PRN PO PAIN; Start 02/12/18 at 22:30; Stop 02/12/18 at 22:40; Status DC Benztropine Mesylate (Cogentin) 0.5 mg BID PO Last administered on 02/17/18at 07 :25; Start 02/13/18 at 09:00; Stop 02/17/18 at 16:35; Status DC [place] Carbonate 300 mg DAILY PO Last administered on 02/18/18at 09:14; Start 02/13/18 at 09:00; Stop 02/19/18 at 11:29; Status DC [place] Carbonate 450 mg QHS PO Last administered on 02/17/18at 20:24; Start at 21:00; Stop 02/19/18 at 11:44; Status DC Risperidone (RisperDAL) 1 mg QHS PO Last administered on 02/13/18at 19:52; Start 02/13/18 at 21:00; Stop 02/14/18 at 19:16; Status DC Trazodone HCl (Desyrel) 50 mg QHS PO Last administered on 02/17/18at 20:24; Start 02/13/18 at 21:00; Stop 02/19/18 at 11:29; Status DC Acetaminophen (Tylenol) 650 mg PRN Q6HRS PRN PO PAIN / TEMP; Start 02/12/18 at 22:30; Stop 02/12/18 at 22:32; Status DC Atorvastatin Calcium (Lipitor) 20 mg QHS PO Last administered on 02/20/18at 20: 28; Start 02/13/18 at 21:00; Stop 02/21/18 at 23:54; Status DC Cyanocobalamin (Vitamin B-12) 1,000 mcg DAILY PO Last administered on at 09:14; Start 02/13/18 at 09:00 Estradiol (Estrace) 1 speedy HS VG ; Start 02/13/18 at 21:00; Stop 02/14/18 at 00: 47; Status DC Lactobacillus Rhamnosus (Culturelle) 1 cap BID PO Last administered on at 20:28; Start 02/13/18 at 09:00; Stop 02/21/18 at 23:54; Status DC Levothyroxine Sodium (Synthroid) 75 mcg DAILYAC PO Last administered on at 09:42; Start 02/13/18 at 07:30; Stop 02/13/18 at 11:19; Status DC Multi-Ingredient Ointment (Analgesic [place]) 1 speedy PRN QID PRN TP MUSCLE PAIN; Start 02/12/18 at 22:30; Status Cancel Sodium Chloride ([place]) 1 inch HS OD Last administered on 02/20/18at 20:29; Start 02/13/18 at 21:00 Sorbitol (Sorbitol Solution) 1 ml PRN DAILY PRN PO CONSTIPATION; Start at 22:30; Status Cancel Amlodipine Besylate (Norvasc) 5 mg DAILY PO Last administered on 02/19/18at 13: 30; Start 02/13/18 at 09:00; Stop 02/19/18 at 17:00; Status DC Vitamin D (Vitamin D3) 50,000 unit WEEKLY PO ; Start 02/19/18 at 09:00; Stop at 09:00; Status DC Non-Formulary Medication (Mag Hydrox/ Aluminum Hyd/ Simeth (Maalox Advanced Suspension)) 15 ml PRN AFTMEALHC PRN PO DYSPEPSIA; Start 02/12/18 at 22:30; Stop 02/12/18 at 22:41; Status DC Non-Formulary Medication (Magnesium Hydroxide (Milk Of Magnesia)) 2,400 mg PRN DAILY PRN PO CONSTIPATION; Start 02/12/18 at 22:30; Stop 02/12/18 at 22:41; Status DC Polyethylene Glycol (miraLAX) 17 gm DAILY PO Last administered on 02/18/18at 09: 15; Start 02/13/18 at 09:00 Artificial Tears (Refresh Classic) 1 drop TID OU Last administered on at 19:25; Start 02/13/18 at 09:00 Non-Formulary Medication (Sodium Chloride ([place]mer-128)) 1 drop HS OD ; Start 02/13 at 21:00; Stop 02/13/18 at 21:00; Status DC Levothyroxine Sodium (Synthroid) 75 mcg DAILY06 PO Last administered on at 05:59; Start 02/14/18 at 06:00 Sorbitol (Sorbitol Solution) 30 ml PRN DAILY PRN PO CONSTIPATION; Start at 11:00 Estradiol (Estrace) 1 speedy QMTH VG Last administered on 02/16/18at 20:02; Start 02/16/18 at 21:00 Info (FLU VACCINE per PROTOCOL) 1 ea PRN 1X PRN MC PER PROTOCOL; Start at 09:00; Status UNV Risperidone (RisperDAL) 1.5 mg QHS PO Last administered on 02/21/18at 19:26; Start 02/14/18 at 21:00; Stop 02/21/18 at 23:54; Status DC Bupropion HCl (Wellbutrin Xl) 150 mg DAILY PO Last administered on 02/19/18at 13 :30; Start 02/15/18 at 09:00; Stop 02/19/18 at 16:58; Status DC Quetiapine Fumarate (SEROquel) 25 mg QHS PO Last administered on 02/17/18at 20: 28; Start 02/15/18 at 21:00; Stop 02/19/18 at 11:29; Status DC Hydroxyzine HCl (Atarax) 10 mg PRN Q2HR PRN PO anxiety Last administered on 02/18/18at 15:54; Start 02/16/18 at 16:30 Benztropine Mesylate (Cogentin) 0.5 mg DAILY PO Last administered on 02/22/18at 09:36; Start 02/18/18 at 09:00 Mirtazapine (Remeron) 7.5 mg QHS PO Last administered on 02/22/18at 17:16; Start 02/17/18 at 21:00 Trazodone HCl (Desyrel) 50 mg PRN QHS PRN PO SEE ADMIN INSTRUCTIONS; Start 02/17/18 at 16:45; Stop 02/19/18 at 11:29; Status DC Trazodone HCl (Desyrel) 100 mg QHS PO ; Start 02/19/18 at 21:00; Stop 02/19/18 at 21:00; Status DC Trazodone HCl (Desyrel) 100 mg PRN QHS PRN PO SEE ADMIN INSTRUCTIONS; Start at 11:30 Trazodone HCl (Desyrel) 100 mg QHS PO Last administered on 02/22/18at 17:17; Start 02/19/18 at 21:00 Amlodipine Besylate (Norvasc) 10 mg DAILY PO Last administered on 02/22/18at 09: 36; Start 02/20/18 at 09:00 Amlodipine Besylate (Norvasc) 5 mg 1X ONCE PO Last administered on 02/19/18at 17:11; Start 02/19/18 at 17:00; Stop 02/19/18 at 17:06; Status DC Atorvastatin Calcium (Lipitor) 20 mg DAILYWSUP PO ; Start 02/22/18 at 17:00 Carbamazepine (TEGretol) 300 mg BIDWMEALS PO ; Start 02/22/18 at 17:00; Stop at 17:00; Status DC Lactobacillus Rhamnosus (Culturelle) 1 cap BIDWMEALS PO ; Start 02/22/18 at 08: 00 Risperidone (RisperDAL) 1.5 mg DAILYWSUP PO Last administered on 02/22/18at 17: 17; Start 02/22/18 at 17:00 Carbamazepine (TEGretol) 300 mg BIDWMEALS PO Last administered on 02/22/18at 17: 17; Start 02/22/18 at 08:00 Active Scripts Active Reported Sorbitol (Sorbitol Solution) 1 Ml Solution 30 Ml PO PRN DAILY PRN Trazodone Hcl 50 Mg Tablet 50 Mg PO QHS Tegretol (Carbamazepine) 200 Mg Tablet 150 Mg PO BID Risperidone 1 Mg Tablet 1 Mg PO QHS Norvasc (Amlodipine Besylate) 5 Mg Tablet 5 Mg PO DAILY [place]-128 (Sodium Chloride) 3.5 Gm Oint...g. 1 Speedy OP HS Miralax (Polyethylene Glycol 3350) 17 Gm Powd.pack 17 Gm PO DAILY Milk Of Magnesia (Magnesium Hydroxide) 2,400 Mg/10 Ml Oral.susp 30 Ml PO PRN DAILY PRN [place] Carbonate 450 Mg Tablet.er 450 Mg PO HS [place] Carbonate 150 Mg Capsule 300 Mg PO DAILY Lipitor (Atorvastatin Calcium) 20 Mg Tablet 20 Mg PO QHS Levothyroxine Sodium 75 Mcg Tablet 75 Mcg PO DAILYAC Estrace (Estradiol) 42.5 Gm Cream.appl 1 Speedy VG 2X WEEK Q FRI, URS Vitamin D2 (Ergocalciferol (Vitamin D2)) 50,000 Unit Capsule 50,000 Unit PO WEEKLY Endocet 10-325 Mg Tablet (Oxycodone Hcl/Acetaminophen) 1 Each Tablet 1 Each PO PRN Q6HRS PRN Vitamin B-12 (Cyanocobalamin (Vitamin B-12)) 1,000 Mcg Tablet 1,000 Mcg PO DAILY Benztropine Mesylate 0.5 Mg Tablet 0.5 Mg PO BID Tylenol (Acetaminophen) 325 Mg Tablet 650 Mg PO PRN Q6HRS PRN Maalox Advanced Suspension (Mag Hydrox/Aluminum Hyd/Simeth) 355 Ml Oral.susp 15 Ml PO PRN AFTMEALHC PRN Analgesic [place] (Methyl Salicylate/Menthol) 28 Gm Oint...g. 1 Speedy TP PRN QID PRN [place] Carbonate 300 Mg Capsule 450 Mg PO QHS Benztropine Mesylate 0.5 Mg Tablet 0.5 Mg PO QHS Risperidone 1 Mg Tablet 1.5 Mg PO QHS Refresh Classic Eye Drops (Polyvinyl Alcohol/Povidone/Pf) 1 Each Droperette 1 Each OU TID Culturelle (Lactobacillus Rhamnosus Gg) 1 Each Cap.sprink 1 Each PO BID Trazodone Hcl 50 Mg Tablet 50 Mg PO PRN QHS PRN Trazodone Hcl 50 Mg Tablet 50 Mg PO HS Tegretol (Carbamazepine) 200 Mg Tablet 300 Mg PO BID Norvasc (Amlodipine Besylate) 5 Mg Tablet 5 Mg PO DAILY [place]-128 (Sodium Chloride) 15 Ml Drops 1 Drop OD HS Miralax (Polyethylene Glycol 3350) 17 Gm Powd.pack 17 Gm PO DAILY Milk Of Magnesia (Magnesium Hydroxide) 2,400 Mg/10 Ml Oral.susp 2,400 Mg PO PRN DAILY PRN [place] Carbonate 300 Mg Tablet 300 Mg PO DAILY Lipitor (Atorvastatin Calcium) 20 Mg Tablet 20 Mg PO QHS Levothyroxine Sodium 75 Mcg Tablet 75 Mcg PO DAILYAC Estrace (Estradiol) 42.5 Gm Cream.appl 1 Gm VG HS QMON/ Insert at bedtime on Friday and Vitamin D2 (Ergocalciferol (Vitamin D2)) 50,000 Unit Capsule 50,000 Unit PO WEEKLY Endocet 10-325 Mg Tablet (Oxycodone Hcl/Acetaminophen) 1 Each Tablet 1 Tab PO PRN Q6HRS PRN Tylenol (Acetaminophen) 325 Mg Tablet 650 Mg PO PRN Q6HRS PRN I have reviewed the current psychotropics carefully including drug interactions. Risk benefit ratio favors no change other than as noted in my dictated progress note. 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
[2018-02-22] MEDS: SODIUM CHLORIDE 5% OPHTH OINTMENT 3.5GM TUBE. OD SCH (20:51)
--- NOTE | 2018-02-23 00:25 | PN ---
DATE: 02/20/2018 This is a late entry for 02/20/2018 and covers elements not covered in my initial note. SUBJECTIVE: I met with the patient in the evening. The patient slept 7 hours previous night. She slept through breakfast, was combative at showers, repeatedly shouting "no, no, no." She refused her medications, stating that the staff are trying to put her in fire, refusing to eat, even refused Boost. UA is negative. CT head noncontributory. She has been hitting, biting, kicking staff, especially during ADLs. Previous night, she was quite confused, urinated while sitting on the bench in the hallway, oblivious of what she was doing. REVIEW OF SYSTEMS: No CV, , pulmonary, eye, ENT system symptoms on review. Reliability poor. MENTAL STATUS EXAM: Oriented to herself. Insight, judgment, recent and remote memory, attention, concentration, fund of knowledge poor, consistent with her diagnosis. She appears quite perplexed. LABORATORY DATA: Reviewed. IMPRESSION: Bipolar 1 disorder, mixed with psychotic features; cognitive disorder, unspecified. Rest unchanged. PLAN: Maintain current psychotropics. [place] has been stopped. We will give it another day or so and then decide further. KIERSTEN WATT MD DR: SANCHEZ/fredrick JOB#: [id number] / [id number]
--- NOTE | 2018-02-23 03:21 | PN ---
DATE: 02/21/2018 This is a late entry, 02/21/2018, covers the elements not covered in my initial note. SUBJECTIVE: I met with the patient in the evening. The patient slept 5-1/4 hours the previous night, remains somewhat perplexed, confused, refusing to eat and drink and take her medications. She does do better with her visits. REVIEW OF SYSTEMS: No CV, , pulmonary, eye, ENT system symptoms on review. Reliability poor. MENTAL STATUS EXAM: Oriented to herself. Insight, judgment, recent memory is impaired. Language function intact. Difficult to assess her due to her being quite withdrawn. No suicidal or homicidal ideation. LABORATORY DATA: Reviewed. IMPRESSION: Unchanged from initial note. PLAN: No change from initial note. MAN Rox WATT MD DR: SANCHEZ/fredrick JOB#: [id number] / [id number]
[2018-02-23 05:59] VITALS: BP 136/80
[2018-02-23] MEDS: LACTOBACILLUS RHAMNOSUS GG 1 CAPSULE. PO SCH ×2 (08:00→16:59)
[2018-02-23] MEDS: POLYETHYLENE GLYCOL 3350 17 GM PACKET. PO SCH (09:00)
[2018-02-23] MEDS: CYANOCOBALAMIN (VITAMIN B-12) 1,000 MCG TABLET. PO SCH (09:00)
[2018-02-23] MEDS: POLYVINYL ALCOHOL/POVIDONE/PF OPHTH SOLUTION DROPERETTE. OU SCH ×3 (09:00→21:17)
[2018-02-23] MEDS: LEVOTHYROXINE 75 MCG TABLET PO SCH (10:03)
[2018-02-23] MEDS: carBAMazepine 100 MG TAB.CHEW PO SCH ×2 (10:05→16:40)
[2018-02-23] MEDS: BENZTROPINE MESYLATE 0.5 MG TABLET PO SCH (10:05)
[2018-02-23] MEDS: amLODIPine BESYLATE 10 MG TABLET PO SCH (10:06)
[2018-02-23 15:53] VITALS: BP 138/88
[2018-02-23] MEDS: ESTRADIOL 0.01% VAGINAL CREAM 42.5GM TUBE. VG SCH (16:00)
[2018-02-23] MEDS: risperiDONE 0.5 MG TABLET. PO SCH (16:40)
[2018-02-23] MEDS: traZODone 100 MG TABLET. PO SCH (16:40)
[2018-02-23] MEDS: ATORVASTATIN CALCIUM 20 MG TABLET PO SCH (16:59)
[2018-02-23] MEDS: MIRTAZAPINE 15 MG TABLET PO SCH ×2 (17:02→21:17)
--- NOTE | 2018-02-23 18:11 | PN ---
DATE: 02/22/2018 This note covers the elements not covered in my initial note. SUBJECTIVE: I met with the patient in the evening on 3 separate occasions. The patient remains withdrawn, psychotic, confused, somewhat perplexed, slept 4-3/4 hours the previous night. REVIEW OF SYSTEMS: No CV, , pulmonary, eye system symptoms on review. Reliability poor. Oral intake was resistive to medication. MENTAL STATUS EXAM: Oriented to herself. Insight, judgment, recent and remote memory, attention, concentration, fund of knowledge poor, consistent with her diagnosis. IMPRESSION: Bipolar 1 disorder, mixed with psychotic features; major neurocognitive disorder, Alzheimer, vascular with depression. PLAN: No change from initial note. [place] has been stopped, Cogentin reduced amongst other things. MAN Rox WATT MD DR: SANCHEZ/fredrick JOB#: [id number] / [id number]
--- NOTE | 2018-02-23 20:53 | PDOC ---
Exam Note: Julian Note: Please also refer to the separate dictated note~for this date of service dictated separately.~Patient seen individually. Discussed the patient with Nursing staff reviewed the chart.~Reviewed interim history and current functioning. Reviewed vital signs,~Labs/ Radiology~and current medications noted below. Continue current treatment with the changes noted in the dictated addendum note Assessment: Vital Signs: Vital Signs Date Time Temp Pulse Resp B/P (MAP) Pulse Ox O2 Delivery O2 Flow Rate FiO2 02/23/18 15:53 98.5 95 20 138/88 (105) 97 02/23/18 05:59 Room Air I&O Intake and Output 02/23/18 07:00 Intake Total 360 ml Balance 360 ml Intake Oral 360 ml Current Medications: Meds: Current Medications Acetaminophen (Tylenol) 650 mg PRN Q6HRS PRN PO PAIN / TEMP; Start 02/12/18 at 21:45 Multi-Ingredient Ointment (Analgesic [place]) 1 speedy PRN QID PRN TP MUSCLE PAIN; Start 02/12/18 at 21:45 Al Hydroxide/Mg Hydroxide (Mylanta Plus Xs) 15 ml PRN AFTMEALHC PRN PO DYSPEPSIA; Start 02/12/18 at 21:45 Magnesium Hydroxide (Milk Of Magnesia) 2,400 mg PRN QHS PRN PO CONSTIPATION; Start 02/12/18 at 21:45 Carbamazepine (TEGretol) 150 mg BID PO ; Start 02/13/18 at 09:00; Stop 02/13/18 at 09:00; Status DC Carbamazepine (TEGretol) 300 mg BID PO Last administered on 02/21/18at 19:29; Start 02/13/18 at 09:00; Stop 02/21/18 at 23:54; Status DC Oxycodone/ Acetaminophen (Percocet 10/325) 1 tab PRN Q6HRS PRN PO PAIN Last administered on 02/15/18at 00:40; Start 02/12/18 at 22:30 Oxycodone/ Acetaminophen (Percocet 10/325) 1 tab PRN Q6HRS PRN PO PAIN; Start 02/12/18 at 22:30; Stop 02/12/18 at 22:40; Status DC Benztropine Mesylate (Cogentin) 0.5 mg BID PO Last administered on 02/17/18at 07 :25; Start 02/13/18 at 09:00; Stop 02/17/18 at 16:35; Status DC [place] Carbonate 300 mg DAILY PO Last administered on 02/18/18at 09:14; Start 02/13/18 at 09:00; Stop 02/19/18 at 11:29; Status DC [place] Carbonate 450 mg QHS PO Last administered on 02/17/18at 20:24; Start at 21:00; Stop 02/19/18 at 11:44; Status DC Risperidone (RisperDAL) 1 mg QHS PO Last administered on 02/13/18at 19:52; Start 02/13/18 at 21:00; Stop 02/14/18 at 19:16; Status DC Trazodone HCl (Desyrel) 50 mg QHS PO Last administered on 02/17/18at 20:24; Start 02/13/18 at 21:00; Stop 02/19/18 at 11:29; Status DC Acetaminophen (Tylenol) 650 mg PRN Q6HRS PRN PO PAIN / TEMP; Start 02/12/18 at 22:30; Stop 02/12/18 at 22:32; Status DC Atorvastatin Calcium (Lipitor) 20 mg QHS PO Last administered on 02/20/18at 20: 28; Start 02/13/18 at 21:00; Stop 02/21/18 at 23:54; Status DC Cyanocobalamin (Vitamin B-12) 1,000 mcg DAILY PO Last administered on at 09:14; Start 02/13/18 at 09:00 Estradiol (Estrace) 1 speedy HS VG ; Start 02/13/18 at 21:00; Stop 02/14/18 at 00: 47; Status DC Lactobacillus Rhamnosus (Culturelle) 1 cap BID PO Last administered on at 20:28; Start 02/13/18 at 09:00; Stop 02/21/18 at 23:54; Status DC Levothyroxine Sodium (Synthroid) 75 mcg DAILYAC PO Last administered on at 09:42; Start 02/13/18 at 07:30; Stop 02/13/18 at 11:19; Status DC Multi-Ingredient Ointment (Analgesic [place]) 1 speedy PRN QID PRN TP MUSCLE PAIN; Start 02/12/18 at 22:30; Status Cancel Sodium Chloride ([place]) 1 inch HS OD Last administered on 02/20/18at 20:29; Start 02/13/18 at 21:00 Sorbitol (Sorbitol Solution) 1 ml PRN DAILY PRN PO CONSTIPATION; Start at 22:30; Status Cancel Amlodipine Besylate (Norvasc) 5 mg DAILY PO Last administered on 02/19/18at 13: 30; Start 02/13/18 at 09:00; Stop 02/19/18 at 17:00; Status DC Vitamin D (Vitamin D3) 50,000 unit WEEKLY PO ; Start 02/19/18 at 09:00; Stop at 09:00; Status DC Non-Formulary Medication (Mag Hydrox/ Aluminum Hyd/ Simeth (Maalox Advanced Suspension)) 15 ml PRN AFTMEALHC PRN PO DYSPEPSIA; Start 02/12/18 at 22:30; Stop 02/12/18 at 22:41; Status DC Non-Formulary Medication (Magnesium Hydroxide (Milk Of Magnesia)) 2,400 mg PRN DAILY PRN PO CONSTIPATION; Start 02/12/18 at 22:30; Stop 02/12/18 at 22:41; Status DC Polyethylene Glycol (miraLAX) 17 gm DAILY PO Last administered on 02/18/18at 09: 15; Start 02/13/18 at 09:00 Artificial Tears (Refresh Classic) 1 drop TID OU Last administered on at 19:25; Start 02/13/18 at 09:00 Non-Formulary Medication (Sodium Chloride ([place]-128)) 1 drop HS OD ; Start 02/13 at 21:00; Stop 02/13/18 at 21:00; Status DC Levothyroxine Sodium (Synthroid) 75 mcg DAILY06 PO Last administered on at 10:03; Start 02/14/18 at 06:00 Sorbitol (Sorbitol Solution) 30 ml PRN DAILY PRN PO CONSTIPATION; Start at 11:00 Estradiol (Estrace) 1 speedy QMTH VG Last administered on 02/16/18at 20:02; Start 02/16/18 at 21:00 Info (FLU VACCINE per PROTOCOL) 1 ea PRN 1X PRN MC PER PROTOCOL; Start at 09:00; Status UNV Risperidone (RisperDAL) 1.5 mg QHS PO Last administered on 02/21/18at 19:26; Start 02/14/18 at 21:00; Stop 02/21/18 at 23:54; Status DC Bupropion HCl (Wellbutrin Xl) 150 mg DAILY PO Last administered on 02/19/18at 13 :30; Start 02/15/18 at 09:00; Stop 02/19/18 at 16:58; Status DC Quetiapine Fumarate (SEROquel) 25 mg QHS PO Last administered on 02/17/18at 20: 28; Start 02/15/18 at 21:00; Stop 02/19/18 at 11:29; Status DC Hydroxyzine HCl (Atarax) 10 mg PRN Q2HR PRN PO anxiety Last administered on 02/18/18at 15:54; Start 02/16/18 at 16:30 Benztropine Mesylate (Cogentin) 0.5 mg DAILY PO Last administered on 02/23/18at 10:05; Start 02/18/18 at 09:00 Mirtazapine (Remeron) 7.5 mg QHS PO Last administered on 02/22/18at 17:16; Start 02/17/18 at 21:00; Stop 02/23/18 at 16:10; Status DC Trazodone HCl (Desyrel) 50 mg PRN QHS PRN PO SEE ADMIN INSTRUCTIONS; Start 02/17/18 at 16:45; Stop 02/19/18 at 11:29; Status DC Trazodone HCl (Desyrel) 100 mg QHS PO ; Start 02/19/18 at 21:00; Stop 02/19/18 at 21:00; Status DC Trazodone HCl (Desyrel) 100 mg PRN QHS PRN PO SEE ADMIN INSTRUCTIONS; Start at 11:30 Trazodone HCl (Desyrel) 100 mg QHS PO Last administered on 02/23/18at 16:40; Start 02/19/18 at 21:00 Amlodipine Besylate (Norvasc) 10 mg DAILY PO Last administered on 02/23/18at 10: 06; Start 02/20/18 at 09:00 Amlodipine Besylate (Norvasc) 5 mg 1X ONCE PO Last administered on 02/19/18at 17:11; Start 02/19/18 at 17:00; Stop 02/19/18 at 17:06; Status DC Atorvastatin Calcium (Lipitor) 20 mg DAILYWSUP PO ; Start 02/22/18 at 17:00 Carbamazepine (TEGretol) 300 mg BIDWMEALS PO ; Start 02/22/18 at 17:00; Stop at 17:00; Status DC Lactobacillus Rhamnosus (Culturelle) 1 cap BIDWMEALS PO ; Start 02/22/18 at 08: 00 Risperidone (RisperDAL) 1.5 mg DAILYWSUP PO Last administered on 02/23/18at 16: 40; Start 02/22/18 at 17:00 Carbamazepine (TEGretol) 300 mg BIDWMEALS PO Last administered on 02/23/18at 16: 40; Start 02/22/18 at 08:00 Mirtazapine (Remeron) 15 mg QHS PO Last administered on 02/23/18at 17:02; Start 02/23/18 at 17:00 Active Scripts Active Reported Sorbitol (Sorbitol Solution) 1 Ml Solution 30 Ml PO PRN DAILY PRN Trazodone Hcl 50 Mg Tablet 50 Mg PO QHS Tegretol (Carbamazepine) 200 Mg Tablet 150 Mg PO BID Risperidone 1 Mg Tablet 1 Mg PO QHS Norvasc (Amlodipine Besylate) 5 Mg Tablet 5 Mg PO DAILY [place]-128 (Sodium Chloride) 3.5 Gm Oint...g. 1 Speedy OP HS Miralax (Polyethylene Glycol 3350) 17 Gm Powd.pack 17 Gm PO DAILY Milk Of Magnesia (Magnesium Hydroxide) 2,400 Mg/10 Ml Oral.susp 30 Ml PO PRN DAILY PRN [place] Carbonate 450 Mg Tablet.er 450 Mg PO HS [place] Carbonate 150 Mg Capsule 300 Mg PO DAILY Lipitor (Atorvastatin Calcium) 20 Mg Tablet 20 Mg PO QHS Levothyroxine Sodium 75 Mcg Tablet 75 Mcg PO DAILYAC Estrace (Estradiol) 42.5 Gm Cream.appl 1 Speedy VG 2X WEEK Q MON, THURS Vitamin D2 (Ergocalciferol (Vitamin D2)) 50,000 Unit Capsule 50,000 Unit PO WEEKLY Endocet 10-325 Mg Tablet (Oxycodone Hcl/Acetaminophen) 1 Each Tablet 1 Each PO PRN Q6HRS PRN Vitamin B-12 (Cyanocobalamin (Vitamin B-12)) 1,000 Mcg Tablet 1,000 Mcg PO DAILY Benztropine Mesylate 0.5 Mg Tablet 0.5 Mg PO BID Tylenol (Acetaminophen) 325 Mg Tablet 650 Mg PO PRN Q6HRS PRN Maalox Advanced Suspension (Mag Hydrox/Aluminum Hyd/Simeth) 355 Ml Oral.susp 15 Ml PO PRN AFTMEALHC PRN Analgesic [place] (Methyl Salicylate/Menthol) 28 Gm Oint...g. 1 Speedy TP PRN QID PRN [place] Carbonate 300 Mg Capsule 450 Mg PO QHS Benztropine Mesylate 0.5 Mg Tablet 0.5 Mg PO QHS Risperidone 1 Mg Tablet 1.5 Mg PO QHS Refresh Classic Eye Drops (Polyvinyl Alcohol/Povidone/Pf) 1 Each Droperette 1 Each OU TID Culturelle (Lactobacillus Rhamnosus Gg) 1 Each Cap.sprink 1 Each PO BID Trazodone Hcl 50 Mg Tablet 50 Mg PO PRN QHS PRN Trazodone Hcl 50 Mg Tablet 50 Mg PO HS Tegretol (Carbamazepine) 200 Mg Tablet 300 Mg PO BID Norvasc (Amlodipine Besylate) 5 Mg Tablet 5 Mg PO DAILY [place]-128 (Sodium Chloride) 15 Ml Drops 1 Drop OD HS Miralax (Polyethylene Glycol 3350) 17 Gm Powd.pack 17 Gm PO DAILY Milk Of Magnesia (Magnesium Hydroxide) 2,400 Mg/10 Ml Oral.susp 2,400 Mg PO PRN DAILY PRN [place] Carbonate 300 Mg Tablet 300 Mg PO DAILY Lipitor (Atorvastatin Calcium) 20 Mg Tablet 20 Mg PO QHS Levothyroxine Sodium 75 Mcg Tablet 75 Mcg PO DAILYAC Estrace (Estradiol) 42.5 Gm Cream.appl 1 Gm VG HS QMON/THURS Insert at bedtime on Friday and Vitamin D2 (Ergocalciferol (Vitamin D2)) 50,000 Unit Capsule 50,000 Unit PO WEEKLY Endocet 10-325 Mg Tablet (Oxycodone Hcl/Acetaminophen) 1 Each Tablet 1 Tab PO PRN Q6HRS PRN Tylenol (Acetaminophen) 325 Mg Tablet 650 Mg PO PRN Q6HRS PRN I have reviewed the current psychotropics carefully including drug interactions. Risk benefit ratio favors no change other than as noted in my dictated progress note. 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
[2018-02-23] MEDS: oxyCODONE/APAP 10/325 1 TAB TABLET PO PRN (21:17)
[2018-02-23] MEDS: hydrOXYzine HCL 10 MG TABLET PO PRN (21:17)
[2018-02-23] MEDS: SODIUM CHLORIDE 5% OPHTH OINTMENT 3.5GM TUBE. OD SCH (21:18)
[2018-02-24] MEDS: CYANOCOBALAMIN (VITAMIN B-12) 1,000 MCG TABLET. PO SCH ×2 (08:06→09:15)
[2018-02-24] MEDS: LEVOTHYROXINE 75 MCG TABLET PO SCH ×2 (08:06→09:15)
[2018-02-24] MEDS: LACTOBACILLUS RHAMNOSUS GG 1 CAPSULE. PO SCH ×3 (08:06→17:26)
[2018-02-24] MEDS: BENZTROPINE MESYLATE 0.5 MG TABLET PO SCH ×2 (08:06→09:15)
[2018-02-24] MEDS: POLYVINYL ALCOHOL/POVIDONE/PF OPHTH SOLUTION DROPERETTE. OU SCH ×4 (08:07→21:00)
[2018-02-24] MEDS: POLYETHYLENE GLYCOL 3350 17 GM PACKET. PO SCH ×2 (08:07→09:15)
[2018-02-24] MEDS: carBAMazepine 100 MG TAB.CHEW PO SCH ×3 (08:09→17:26)
[2018-02-24] MEDS: amLODIPine BESYLATE 10 MG TABLET PO SCH ×2 (09:15→16:00)
[2018-02-24 16:42] VITALS: BP 174/116
[2018-02-24] MEDS: risperiDONE 0.5 MG TABLET. PO SCH (17:26)
[2018-02-24] MEDS: ATORVASTATIN CALCIUM 20 MG TABLET PO SCH (17:26)
[2018-02-24 18:19] VITALS: BP 94/77
[2018-02-24] MEDS: SODIUM CHLORIDE 5% OPHTH OINTMENT 3.5GM TUBE. OD SCH (21:00)
[2018-02-24] MEDS: MIRTAZAPINE 15 MG TABLET PO SCH (21:00)
[2018-02-24] MEDS: traZODone 100 MG TABLET. PO SCH (21:00)
--- NOTE | 2018-02-24 21:07 | PDOC ---
Exam Note: Julian Note: Please also refer to the separate dictated note~for this date of service dictated separately.~Patient seen individually. Discussed the patient with Nursing staff reviewed the chart.~Reviewed interim history and current functioning. Reviewed vital signs,~Labs/ Radiology~and current medications noted below. Continue current treatment with the changes noted in the dictated addendum note Assessment: Vital Signs: Vital Signs Date Time Temp Pulse Resp B/P (MAP) Pulse Ox O2 Delivery O2 Flow Rate FiO2 02/24/18 18:19 84 94/77 (83) 02/24/18 16:42 98.4 22 97 02/23/18 05:59 Room Air I&O Intake and Output 02/24/18 07:00 Intake Total 240 ml Balance 240 ml Intake Oral 240 ml # Voids 1 Current Medications: Meds: Current Medications Acetaminophen (Tylenol) 650 mg PRN Q6HRS PRN PO PAIN / TEMP; Start 02/12/18 at 21:45 Multi-Ingredient Ointment (Analgesic [place]) 1 speedy PRN QID PRN TP MUSCLE PAIN; Start 02/12/18 at 21:45 Al Hydroxide/Mg Hydroxide (Mylanta Plus Xs) 15 ml PRN AFTMEALHC PRN PO DYSPEPSIA; Start 02/12/18 at 21:45 Magnesium Hydroxide (Milk Of Magnesia) 2,400 mg PRN QHS PRN PO CONSTIPATION; Start 02/12/18 at 21:45 Carbamazepine (TEGretol) 150 mg BID PO ; Start 02/13/18 at 09:00; Stop 02/13/18 at 09:00; Status DC Carbamazepine (TEGretol) 300 mg BID PO Last administered on 02/21/18at 19:29; Start 02/13/18 at 09:00; Stop 02/21/18 at 23:54; Status DC Oxycodone/ Acetaminophen (Percocet 10/325) 1 tab PRN Q6HRS PRN PO PAIN Last administered on 02/23/18at 21:17; Start 02/12/18 at 22:30 Oxycodone/ Acetaminophen (Percocet 10/325) 1 tab PRN Q6HRS PRN PO PAIN; Start 02/12/18 at 22:30; Stop 02/12/18 at 22:40; Status DC Benztropine Mesylate (Cogentin) 0.5 mg BID PO Last administered on 02/17/18 07 :25; Start 02/13/18 at 09:00; Stop 02/17/18 at 16:35; Status DC [place] Carbonate 300 mg DAILY PO Last administered on 02/18/18 09:14; Start 02/13/18 at 09:00; Stop 02/19/18 at 11:29; Status DC [place] Carbonate 450 mg QHS PO Last administered on 02/17/18 20:24; Start at 21:00; Stop 02/19/18 at 11:44; Status DC Risperidone (RisperDAL) 1 mg QHS PO Last administered on 02/13/18at 19:52; Start 02/13/18 at 21:00; Stop 02/14/18 at 19:16; Status DC Trazodone HCl (Desyrel) 50 mg QHS PO Last administered on 02/17/18 20:24; Start 02/13/18 at 21:00; Stop 02/19/18 at 11:29; Status DC Acetaminophen (Tylenol) 650 mg PRN Q6HRS PRN PO PAIN / TEMP; Start 02/12/18 at 22:30; Stop 02/12/18 at 22:32; Status DC Atorvastatin Calcium (Lipitor) 20 mg QHS PO Last administered on 02/20/18 20: 28; Start 02/13/18 at 21:00; Stop 02/21/18 at 23:54; Status DC Cyanocobalamin (Vitamin B-12) 1,000 mcg DAILY PO Last administered on 09:14; Start 02/13/18 at 09:00 Estradiol (Estrace) 1 speedy HS VG ; Start 02/13/18 at 21:00; Stop 02/14/18 at 00: 47; Status DC Lactobacillus Rhamnosus (Culturelle) 1 cap BID PO Last administered on 20:28; Start 02/13/18 at 09:00; Stop 02/21/18 at 23:54; Status DC Levothyroxine Sodium (Synthroid) 75 mcg DAILYAC PO Last administered on at 09:42; Start 02/13/18 at 07:30; Stop 02/13/18 at 11:19; Status DC Multi-Ingredient Ointment (Analgesic [place]) 1 speedy PRN QID PRN TP MUSCLE PAIN; Start 02/12/18 at 22:30; Status Cancel Sodium Chloride ([place]) 1 inch HS OD Last administered on 02/23/18at 21:18; Start 02/13/18 at 21:00 Sorbitol (Sorbitol Solution) 1 ml PRN DAILY PRN PO CONSTIPATION; Start at 22:30; Status Cancel Amlodipine Besylate (Norvasc) 5 mg DAILY PO Last administered on 02/19/18at 13: 30; Start 02/13/18 at 09:00; Stop 02/19/18 at 17:00; Status DC Vitamin D (Vitamin D3) 50,000 unit WEEKLY PO ; Start 02/19/18 at 09:00; Stop at 09:00; Status DC Non-Formulary Medication (Mag Hydrox/ Aluminum Hyd/ Simeth (Maalox Advanced Suspension)) 15 ml PRN AFTMEALHC PRN PO DYSPEPSIA; Start 02/12/18 at 22:30; Stop 02/12/18 at 22:41; Status DC Non-Formulary Medication (Magnesium Hydroxide (Milk Of Magnesia)) 2,400 mg PRN DAILY PRN PO CONSTIPATION; Start 02/12/18 at 22:30; Stop 02/12/18 at 22:41; Status DC Polyethylene Glycol (miraLAX) 17 gm DAILY PO Last administered on 02/18/18at 09: 15; Start 02/13/18 at 09:00 Artificial Tears (Refresh Classic) 1 drop TID OU Last administered on at 21:17; Start 02/13/18 at 09:00 Non-Formulary Medication (Sodium Chloride ([place]-128)) 1 drop HS OD ; Start 02/13 at 21:00; Stop 02/13/18 at 21:00; Status DC Levothyroxine Sodium (Synthroid) 75 mcg DAILY06 PO Last administered on at 10:03; Start 02/14/18 at 06:00 Sorbitol (Sorbitol Solution) 30 ml PRN DAILY PRN PO CONSTIPATION; Start at 11:00 Estradiol (Estrace) 1 speedy QMTH VG Last administered on 02/16/18at 20:02; Start 02/16/18 at 21:00 Info (FLU VACCINE per PROTOCOL) 1 ea PRN 1X PRN MC PER PROTOCOL; Start at 09:00; Status UNV Risperidone (RisperDAL) 1.5 mg QHS PO Last administered on 02/21/18at 19:26; Start 02/14/18 at 21:00; Stop 02/21/18 at 23:54; Status DC Bupropion HCl (Wellbutrin Xl) 150 mg DAILY PO Last administered on 02/19/18at 13 :30; Start 02/15/18 at 09:00; Stop 02/19/18 at 16:58; Status DC Quetiapine Fumarate (SEROquel) 25 mg QHS PO Last administered on 02/17/18at 20: 28; Start 02/15/18 at 21:00; Stop 02/19/18 at 11:29; Status DC Hydroxyzine HCl (Atarax) 10 mg PRN Q2HR PRN PO anxiety Last administered on 02/23/18at 21:17; Start 02/16/18 at 16:30 Benztropine Mesylate (Cogentin) 0.5 mg DAILY PO Last administered on 02/23/18at 10:05; Start 02/18/18 at 09:00 Mirtazapine (Remeron) 7.5 mg QHS PO Last administered on 02/22/18at 17:16; Start 02/17/18 at 21:00; Stop 02/23/18 at 16:10; Status DC Trazodone HCl (Desyrel) 50 mg PRN QHS PRN PO SEE ADMIN INSTRUCTIONS; Start 02/17/18 at 16:45; Stop 02/19/18 at 11:29; Status DC Trazodone HCl (Desyrel) 100 mg QHS PO ; Start 02/19/18 at 21:00; Stop 02/19/18 at 21:00; Status DC Trazodone HCl (Desyrel) 100 mg PRN QHS PRN PO SEE ADMIN INSTRUCTIONS; Start at 11:30 Trazodone HCl (Desyrel) 100 mg QHS PO Last administered on 02/23/18at 16:40; Start 02/19/18 at 21:00 Amlodipine Besylate (Norvasc) 10 mg DAILY PO Last administered on 02/24/18at 16: 00; Start 02/20/18 at 09:00 Amlodipine Besylate (Norvasc) 5 mg 1X ONCE PO Last administered on 02/19/18 17:11; Start 02/19/18 at 17:00; Stop 02/19/18 at 17:06; Status DC Atorvastatin Calcium (Lipitor) 20 mg DAILYWSUP PO Last administered on 17:26; Start 02/22/18 at 17:00 Carbamazepine (TEGretol) 300 mg BIDWMEALS PO ; Start 02/22/18 at 17:00; Stop at 17:00; Status DC Lactobacillus Rhamnosus (Culturelle) 1 cap BIDWMEALS PO Last administered on 17:26; Start 02/22/18 at 08:00 Risperidone (RisperDAL) 1.5 mg DAILYWSUP PO Last administered on 02/24/18 17: 26; Start 02/22/18 at 17:00 Carbamazepine (TEGretol) 300 mg BIDWMEALS PO Last administered on 02/24/18 17: 26; Start 02/22/18 at 08:00 Mirtazapine (Remeron) 15 mg QHS PO Last administered on 02/23/18 21:17; Start 02/23/18 at 17:00 Active Scripts Active Reported Sorbitol (Sorbitol Solution) 1 Ml Solution 30 Ml PO PRN DAILY PRN Trazodone Hcl 50 Mg Tablet 50 Mg PO QHS Tegretol (Carbamazepine) 200 Mg Tablet 150 Mg PO BID Risperidone 1 Mg Tablet 1 Mg PO QHS Norvasc (Amlodipine Besylate) 5 Mg Tablet 5 Mg PO DAILY [place]-128 (Sodium Chloride) 3.5 Gm Oint...g. 1 Speedy OP HS Miralax (Polyethylene Glycol 3350) 17 Gm Powd.pack 17 Gm PO DAILY Milk Of Magnesia (Magnesium Hydroxide) 2,400 Mg/10 Ml Oral.susp 30 Ml PO PRN DAILY PRN [place] Carbonate 450 Mg Tablet.er 450 Mg PO HS [place] Carbonate 150 Mg Capsule 300 Mg PO DAILY Lipitor (Atorvastatin Calcium) 20 Mg Tablet 20 Mg PO QHS Levothyroxine Sodium 75 Mcg Tablet 75 Mcg PO DAILYAC Estrace (Estradiol) 42.5 Gm Cream.appl 1 Speedy VG 2X WEEK Q MON, TH Vitamin D2 (Ergocalciferol (Vitamin D2)) 50,000 Unit Capsule 50,000 Unit PO WEEKLY Endocet 10-325 Mg Tablet (Oxycodone Hcl/Acetaminophen) 1 Each Tablet 1 Each PO PRN Q6HRS PRN Vitamin B-12 (Cyanocobalamin (Vitamin B-12)) 1,000 Mcg Tablet 1,000 Mcg PO DAILY Benztropine Mesylate 0.5 Mg Tablet 0.5 Mg PO BID Tylenol (Acetaminophen) 325 Mg Tablet 650 Mg PO PRN Q6HRS PRN Maalox Advanced Suspension (Mag Hydrox/Aluminum Hyd/Simeth) 355 Ml Oral.susp 15 Ml PO PRN AFTMEALHC PRN Analgesic [place] (Methyl Salicylate/Menthol) 28 Gm Oint...g. 1 Speedy TP PRN QID PRN [place] Carbonate 300 Mg Capsule 450 Mg PO QHS Benztropine Mesylate 0.5 Mg Tablet 0.5 Mg PO QHS Risperidone 1 Mg Tablet 1.5 Mg PO QHS Refresh Classic Eye Drops (Polyvinyl Alcohol/Povidone/Pf) 1 Each Droperette 1 Each OU TID Culturelle (Lactobacillus Rhamnosus Gg) 1 Each Cap.sprink 1 Each PO BID Trazodone Hcl 50 Mg Tablet 50 Mg PO PRN QHS PRN Trazodone Hcl 50 Mg Tablet 50 Mg PO HS Tegretol (Carbamazepine) 200 Mg Tablet 300 Mg PO BID Norvasc (Amlodipine Besylate) 5 Mg Tablet 5 Mg PO DAILY [place]-128 (Sodium Chloride) 15 Ml Drops 1 Drop OD HS Miralax (Polyethylene Glycol 3350) 17 Gm Powd.pack 17 Gm PO DAILY Milk Of Magnesia (Magnesium Hydroxide) 2,400 Mg/10 Ml Oral.susp 2,400 Mg PO PRN DAILY PRN [place] Carbonate 300 Mg Tablet 300 Mg PO DAILY Lipitor (Atorvastatin Calcium) 20 Mg Tablet 20 Mg PO QHS Levothyroxine Sodium 75 Mcg Tablet 75 Mcg PO DAILYAC Estrace (Estradiol) 42.5 Gm Cream.appl 1 Gm VG HS QMON/THURS Insert at bedtime on Friday and Vitamin D2 (Ergocalciferol (Vitamin D2)) 50,000 Unit Capsule 50,000 Unit PO WEEKLY Endocet 10-325 Mg Tablet (Oxycodone Hcl/Acetaminophen) 1 Each Tablet 1 Tab PO PRN Q6HRS PRN Tylenol (Acetaminophen) 325 Mg Tablet 650 Mg PO PRN Q6HRS PRN I have reviewed the current psychotropics carefully including drug interactions. Risk benefit ratio favors no change other than as noted in my dictated progress note. 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
--- NOTE | 2018-02-24 23:20 | PN ---
DATE: 02/23/2018 This late entry for 02/23/2018 covers elements not covered in my initial note. SUBJECTIVE: I met with the patient in the evening. The patient slept 4-1/4 hours previous night. She took her medications whole, which was quite surprising per nursing report. She refused breakfast, ate 100% of lunch, which again is an improvement. REVIEW OF SYSTEMS: No CV, , pulmonary, eye, ENT system symptoms on review, but she is not very verbal. MENTAL STATUS EXAM: Oriented to herself and situation. Speech, often responses monosyllabic if that. After I met with her at the end of my rounds as I was leaving the unit, she came up and wanted to interact again, but not very forthcoming. Abstraction fair, computation unable to do serial sevens or at least not even attempted, remembered 0 out of 3 objects at 2 minutes again partially due to not attempting to attempt it and then will get distracted. No active suicidal or homicidal ideation. She remains questionably psychotic. LABORATORY DATA: Reviewed. IMPRESSION: Bipolar 1 disorder, mixed with psychotic features, delirium, unspecified. Rest unchanged. PLAN: Increase Remeron from 7.5 to 15 mg at bedtime. Continue Cogentin, Risperdal, Tegretol along with trazodone at bedtime, Wellbutrin and hydroxyzine p.r.n. MAN Rox WATT MD DR: SANCHEZ/fredrick JOB#: [id number] / [id number]
[2018-02-25] MEDS: LEVOTHYROXINE 75 MCG TABLET PO SCH ×2 (06:00→08:15)
[2018-02-25 06:07] VITALS: BP 132/82
[2018-02-25] MEDS: LACTOBACILLUS RHAMNOSUS GG 1 CAPSULE. PO SCH ×3 (08:00→17:28)
[2018-02-25] MEDS: carBAMazepine 100 MG TAB.CHEW PO SCH (08:15)
[2018-02-25] MEDS: BENZTROPINE MESYLATE 0.5 MG TABLET PO SCH ×2 (08:16→09:00)
[2018-02-25] MEDS: amLODIPine BESYLATE 10 MG TABLET PO SCH ×2 (08:16→09:00)
[2018-02-25] MEDS: POLYVINYL ALCOHOL/POVIDONE/PF OPHTH SOLUTION DROPERETTE. OU SCH ×3 (08:16→13:59)
[2018-02-25] MEDS: CYANOCOBALAMIN (VITAMIN B-12) 1,000 MCG TABLET. PO SCH ×2 (08:16→09:00)
[2018-02-25] MEDS: POLYETHYLENE GLYCOL 3350 17 GM PACKET. PO SCH ×2 (08:16→09:48)
[2018-02-25] MEDS ORDERED: POLYETHYLENE GLYCOL 3350 17 GM PACKET. PO PRN (14:00)
[2018-02-25] MEDS ORDERED: POLYVINYL ALCOHOL/POVIDONE/PF OPHTH SOLUTION DROPERETTE. OU PRN (14:00)
[2018-02-25 16:15] VITALS: BP 172/99
[2018-02-25] MEDS: risperiDONE 0.5 MG TABLET. PO SCH (17:28)
[2018-02-25] MEDS: ATORVASTATIN CALCIUM 20 MG TABLET PO SCH (17:28)
[2018-02-25] MEDS: traZODone 100 MG TABLET. PO SCH (20:02)
[2018-02-25] MEDS: MIRTAZAPINE 15 MG TABLET PO SCH ×2 (20:02→21:00)
[2018-02-25] MEDS: cloZAPine 25 MG TABLET PO SCH ×2 (20:05→21:00)
[2018-02-25] MEDS: DIVALPROEX ER 500 MG TAB.ER.24H PO SCH ×2 (20:06→21:00)
[2018-02-25] MEDS: SODIUM CHLORIDE 5% OPHTH OINTMENT 3.5GM TUBE. OD SCH (20:06)
--- NOTE | 2018-02-25 20:58 | PDOC ---
Exam Note: Julian Note: Please also refer to the separate dictated note~for this date of service dictated separately.~Patient seen individually. Discussed the patient with Nursing staff reviewed the chart.~Reviewed interim history and current functioning. Reviewed vital signs,~Labs/ Radiology~and current medications noted below. Continue current treatment with the changes noted in the dictated addendum note Assessment: Vital Signs: Vital Signs Date Time Temp Pulse Resp B/P (MAP) Pulse Ox O2 Delivery O2 Flow Rate FiO2 02/25/18 16:15 172/99 (123) 02/25/18 06:07 97.3 70 16 95 02/23/18 05:59 Room Air I&O Intake and Output 02/25/18 07:00 Intake Total 480 ml Balance 480 ml Intake Oral 480 ml Current Medications: Meds: Current Medications Acetaminophen (Tylenol) 650 mg PRN Q6HRS PRN PO PAIN / TEMP; Start 02/12/18 at 21:45 Multi-Ingredient Ointment (Analgesic [place]) 1 speedy PRN QID PRN TP MUSCLE PAIN; Start 02/12/18 at 21:45 Al Hydroxide/Mg Hydroxide (Mylanta Plus Xs) 15 ml PRN AFTMEALHC PRN PO DYSPEPSIA; Start 02/12/18 at 21:45 Magnesium Hydroxide (Milk Of Magnesia) 2,400 mg PRN QHS PRN PO CONSTIPATION; Start 02/12/18 at 21:45 Carbamazepine (TEGretol) 150 mg BID PO ; Start 02/13/18 at 09:00; Stop 02/13/18 at 09:00; Status DC Carbamazepine (TEGretol) 300 mg BID PO Last administered on 02/21/18at 19:29; Start 02/13/18 at 09:00; Stop 02/21/18 at 23:54; Status DC Oxycodone/ Acetaminophen (Percocet 10/325) 1 tab PRN Q6HRS PRN PO PAIN Last administered on 02/23/18at 21:17; Start 02/12/18 at 22:30 Oxycodone/ Acetaminophen (Percocet 10/325) 1 tab PRN Q6HRS PRN PO PAIN; Start 02/12/18 at 22:30; Stop 02/12/18 at 22:40; Status DC Benztropine Mesylate (Cogentin) 0.5 mg BID PO Last administered on 02/17/18 07 :25; Start 02/13/18 at 09:00; Stop 02/17/18 at 16:35; Status DC [place] Carbonate 300 mg DAILY PO Last administered on 02/18/18at 09:14; Start 02/13/18 at 09:00; Stop 02/19/18 at 11:29; Status DC [place] Carbonate 450 mg QHS PO Last administered on 02/17/18 20:24; Start at 21:00; Stop 02/19/18 at 11:44; Status DC Risperidone (RisperDAL) 1 mg QHS PO Last administered on 02/13/18at 19:52; Start 02/13/18 at 21:00; Stop 02/14/18 at 19:16; Status DC Trazodone HCl (Desyrel) 50 mg QHS PO Last administered on 02/17/18at 20:24; Start 02/13/18 at 21:00; Stop 02/19/18 at 11:29; Status DC Acetaminophen (Tylenol) 650 mg PRN Q6HRS PRN PO PAIN / TEMP; Start 02/12/18 at 22:30; Stop 02/12/18 at 22:32; Status DC Atorvastatin Calcium (Lipitor) 20 mg QHS PO Last administered on 02/20/18at 20: 28; Start 02/13/18 at 21:00; Stop 02/21/18 at 23:54; Status DC Cyanocobalamin (Vitamin B-12) 1,000 mcg DAILY PO Last administered on at 09:14; Start 02/13/18 at 09:00 Estradiol (Estrace) 1 speedy HS VG ; Start 02/13/18 at 21:00; Stop 02/14/18 at 00: 47; Status DC Lactobacillus Rhamnosus (Culturelle) 1 cap BID PO Last administered on at 20:28; Start 02/13/18 at 09:00; Stop 02/21/18 at 23:54; Status DC Levothyroxine Sodium (Synthroid) 75 mcg DAILYAC PO Last administered on at 09:42; Start 02/13/18 at 07:30; Stop 02/13/18 at 11:19; Status DC Multi-Ingredient Ointment (Analgesic [place]) 1 speedy PRN QID PRN TP MUSCLE PAIN; Start 02/12/18 at 22:30; Status Cancel Sodium Chloride ([place]) 1 inch HS OD Last administered on 02/25/18at 20:06; Start 02/13/18 at 21:00 Sorbitol (Sorbitol Solution) 1 ml PRN DAILY PRN PO CONSTIPATION; Start at 22:30; Status Cancel Amlodipine Besylate (Norvasc) 5 mg DAILY PO Last administered on 02/19/18at 13: 30; Start 02/13/18 at 09:00; Stop 02/19/18 at 17:00; Status DC Vitamin D (Vitamin D3) 50,000 unit WEEKLY PO ; Start 02/19/18 at 09:00; Stop at 09:00; Status DC Non-Formulary Medication (Mag Hydrox/ Aluminum Hyd/ Simeth (Maalox Advanced Suspension)) 15 ml PRN AFTMEALHC PRN PO DYSPEPSIA; Start 02/12/18 at 22:30; Stop 02/12/18 at 22:41; Status DC Non-Formulary Medication (Magnesium Hydroxide (Milk Of Magnesia)) 2,400 mg PRN DAILY PRN PO CONSTIPATION; Start 02/12/18 at 22:30; Stop 02/12/18 at 22:41; Status DC Polyethylene Glycol (miraLAX) 17 gm DAILY PO Last administered on 02/18/18at 09: 15; Start 02/13/18 at 09:00; Stop 02/25/18 at 14:01; Status DC Artificial Tears (Refresh Classic) 1 drop TID OU Last administered on at 21:17; Start 02/13/18 at 09:00; Stop 02/25/18 at 14:01; Status DC Non-Formulary Medication (Sodium Chloride ([place]-128)) 1 drop HS OD ; Start 02/13 at 21:00; Stop 02/13/18 at 21:00; Status DC Levothyroxine Sodium (Synthroid) 75 mcg DAILY06 PO Last administered on at 10:03; Start 02/14/18 at 06:00 Sorbitol (Sorbitol Solution) 30 ml PRN DAILY PRN PO CONSTIPATION; Start at 11:00 Estradiol (Estrace) 1 speedy QMTH VG Last administered on 02/16/18at 20:02; Start 02/16/18 at 21:00 Info (FLU VACCINE per PROTOCOL) 1 ea PRN 1X PRN MC PER PROTOCOL; Start at 09:00; Status UNV Risperidone (RisperDAL) 1.5 mg QHS PO Last administered on 02/21/18at 19:26; Start 02/14/18 at 21:00; Stop 02/21/18 at 23:54; Status DC Bupropion HCl (Wellbutrin Xl) 150 mg DAILY PO Last administered on 02/19/18at 13 :30; Start 02/15/18 at 09:00; Stop 02/19/18 at 16:58; Status DC Quetiapine Fumarate (SEROquel) 25 mg QHS PO Last administered on 02/17/18at 20: 28; Start 02/15/18 at 21:00; Stop 02/19/18 at 11:29; Status DC Hydroxyzine HCl (Atarax) 10 mg PRN Q2HR PRN PO anxiety Last administered on 02/23/18at 21:17; Start 02/16/18 at 16:30 Benztropine Mesylate (Cogentin) 0.5 mg DAILY PO Last administered on 02/23/18at 10:05; Start 02/18/18 at 09:00 Mirtazapine (Remeron) 7.5 mg QHS PO Last administered on 02/22/18at 17:16; Start 02/17/18 at 21:00; Stop 02/23/18 at 16:10; Status DC Trazodone HCl (Desyrel) 50 mg PRN QHS PRN PO SEE ADMIN INSTRUCTIONS; Start 02/17/18 at 16:45; Stop 02/19/18 at 11:29; Status DC Trazodone HCl (Desyrel) 100 mg QHS PO ; Start 02/19/18 at 21:00; Stop 02/19/18 at 21:00; Status DC Trazodone HCl (Desyrel) 100 mg PRN QHS PRN PO SEE ADMIN INSTRUCTIONS; Start at 11:30 Trazodone HCl (Desyrel) 100 mg QHS PO Last administered on 02/25/18at 20:02; Start 02/19/18 at 21:00 Amlodipine Besylate (Norvasc) 10 mg DAILY PO Last administered on 02/24/18 16: 00; Start 02/20/18 at 09:00 Amlodipine Besylate (Norvasc) 5 mg 1X ONCE PO Last administered on 02/19/18 17:11; Start 02/19/18 at 17:00; Stop 02/19/18 at 17:06; Status DC Atorvastatin Calcium (Lipitor) 20 mg DAILYWSUP PO Last administered on 17:28; Start 02/22/18 at 17:00 Carbamazepine (TEGretol) 300 mg BIDWMEALS PO ; Start 02/22/18 at 17:00; Stop at 17:00; Status DC Lactobacillus Rhamnosus (Culturelle) 1 cap BIDWMEALS PO Last administered on 17:28; Start 02/22/18 at 08:00 Risperidone (RisperDAL) 1.5 mg DAILYWSUP PO Last administered on 02/25/18 17: 28; Start 02/22/18 at 17:00 Carbamazepine (TEGretol) 300 mg BIDWMEALS PO Last administered on 02/24/18 17: 26; Start 02/22/18 at 08:00; Stop 02/25/18 at 09:39; Status DC Mirtazapine (Remeron) 15 mg QHS PO Last administered on 02/25/18at 20:02; Start 02/23/18 at 17:00 Divalproex Sodium (Depakote Er) 500 mg QHS PO Last administered on 02/25/18at 20:06; Start 02/25/18 at 21:00 Polyethylene Glycol (miraLAX) 17 gm PRN DAILY PRN PO CONSTIPATION; Start 02/25 at 14:00 Artificial Tears (Refresh Classic) 1 drop PRN TID PRN OU DRY EYE; Start at 14:00 Clozapine (Clozaril) 25 mg QHS PO Last administered on 02/25/18at 20:05; Start 02/25/18 at 21:00 Active Scripts Active Reported Sorbitol (Sorbitol Solution) 1 Ml Solution 30 Ml PO PRN DAILY PRN Trazodone Hcl 50 Mg Tablet 50 Mg PO QHS Tegretol (Carbamazepine) 200 Mg Tablet 150 Mg PO BID Risperidone 1 Mg Tablet 1 Mg PO QHS Norvasc (Amlodipine Besylate) 5 Mg Tablet 5 Mg PO DAILY [place]-128 (Sodium Chloride) 3.5 Gm Oint...g. 1 Speedy OP HS Miralax (Polyethylene Glycol 3350) 17 Gm Powd.pack 17 Gm PO DAILY Milk Of Magnesia (Magnesium Hydroxide) 2,400 Mg/10 Ml Oral.susp 30 Ml PO PRN DAILY PRN [place] Carbonate 450 Mg Tablet.er 450 Mg PO HS [place] Carbonate 150 Mg Capsule 300 Mg PO DAILY Lipitor (Atorvastatin Calcium) 20 Mg Tablet 20 Mg PO QHS Levothyroxine Sodium 75 Mcg Tablet 75 Mcg PO DAILYAC Estrace (Estradiol) 42.5 Gm Cream.appl 1 Speedy VG 2X WEEK Q FRI, URS Vitamin D2 (Ergocalciferol (Vitamin D2)) 50,000 Unit Capsule 50,000 Unit PO WEEKLY Endocet 10-325 Mg Tablet (Oxycodone Hcl/Acetaminophen) 1 Each Tablet 1 Each PO PRN Q6HRS PRN Vitamin B-12 (Cyanocobalamin (Vitamin B-12)) 1,000 Mcg Tablet 1,000 Mcg PO DAILY Benztropine Mesylate 0.5 Mg Tablet 0.5 Mg PO BID Tylenol (Acetaminophen) 325 Mg Tablet 650 Mg PO PRN Q6HRS PRN Maalox Advanced Suspension (Mag Hydrox/Aluminum Hyd/Simeth) 355 Ml Oral.susp 15 Ml PO PRN AFTMEALHC PRN Analgesic [place] (Methyl Salicylate/Menthol) 28 Gm Oint...g. 1 Speedy TP PRN QID PRN [place] Carbonate 300 Mg Capsule 450 Mg PO QHS Benztropine Mesylate 0.5 Mg Tablet 0.5 Mg PO QHS Risperidone 1 Mg Tablet 1.5 Mg PO QHS Refresh Classic Eye Drops (Polyvinyl Alcohol/Povidone/Pf) 1 Each Droperette 1 Each OU TID Culturelle (Lactobacillus Rhamnosus Gg) 1 Each Cap.sprink 1 Each PO BID Trazodone Hcl 50 Mg Tablet 50 Mg PO PRN QHS PRN Trazodone Hcl 50 Mg Tablet 50 Mg PO HS Tegretol (Carbamazepine) 200 Mg Tablet 300 Mg PO BID Norvasc (Amlodipine Besylate) 5 Mg Tablet 5 Mg PO DAILY [place]-128 (Sodium Chloride) 15 Ml Drops 1 Drop OD HS Miralax (Polyethylene Glycol 3350) 17 Gm Powd.pack 17 Gm PO DAILY Milk Of Magnesia (Magnesium Hydroxide) 2,400 Mg/10 Ml Oral.susp 2,400 Mg PO PRN DAILY PRN [place] Carbonate 300 Mg Tablet 300 Mg PO DAILY Lipitor (Atorvastatin Calcium) 20 Mg Tablet 20 Mg PO QHS Levothyroxine Sodium 75 Mcg Tablet 75 Mcg PO DAILYAC Estrace (Estradiol) 42.5 Gm Cream.appl 1 Gm VG HS QMON/ Insert at bedtime on Friday and Vitamin D2 (Ergocalciferol (Vitamin D2)) 50,000 Unit Capsule 50,000 Unit PO WEEKLY Endocet 10-325 Mg Tablet (Oxycodone Hcl/Acetaminophen) 1 Each Tablet 1 Tab PO PRN Q6HRS PRN Tylenol (Acetaminophen) 325 Mg Tablet 650 Mg PO PRN Q6HRS PRN I have reviewed the current psychotropics carefully including drug interactions. Risk benefit ratio favors no change other than as noted in my dictated progress note. 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
--- NOTE | 2018-02-25 21:16 | PN ---
DATE: 02/24/2018 PSYCHIATRIC PROGRESS NOTE This late entry 02/24/2018 covers elements not covered in my initial note. SUBJECTIVE: I met with the patient in the evening. The patient slept 8-1/4 hours previous night. I also met with the patient's in the evening. She has been very resistive to taking medications. was trying to administer the meds in the evening supper time and she was refusing even with him, refusing to eat. She ate some breakfast, nothing for lunch, little for supper. REVIEW OF SYSTEMS: No CV, , pulmonary, eye, ENT system symptoms on review. Reliability poor. MENTAL STATUS EXAM: Oriented to herself. Insight, judgment, recent and remote memory, attention, concentration, fund of knowledge poor, consistent with her diagnosis mentioned in my initial note. IMPRESSION: Bipolar 1 disorder, mixed with psychotic features; major neurocognitive disorder, Alzheimer, vascular with delusion, depression; anxiety disorder, unspecified. PLAN: The patient seems to have failed treatment on Risperdal as an antipsychotic. I feel she is a candidate for Clozaril. She is on Tegretol. I had initially considered increasing Tegretol, but given the fact that she may do better on Clozaril, we changed the Tegretol to Depakote ER 500 mg p.o. at bedtime. Check CBC, CMP, valproic acid level in 3 days and then starting in a couple of days off the Tegretol. We will start Clozaril 25 mg at bedtime and adjust thereafter. Continue rest unchanged. KIERSTEN WATT MD DR: SANCHEZ/fredrick JOB#: [id number] / [id number]
[2018-02-26] MEDS: LEVOTHYROXINE 75 MCG TABLET PO SCH (05:33)
[2018-02-26 06:12] VITALS: BP 106/61
[2018-02-26] MEDS: LACTOBACILLUS RHAMNOSUS GG 1 CAPSULE. PO SCH ×2 (08:07→17:09)
[2018-02-26] MEDS: BENZTROPINE MESYLATE 0.5 MG TABLET PO SCH (08:07)
[2018-02-26] MEDS: amLODIPine BESYLATE 10 MG TABLET PO SCH (08:08)
[2018-02-26] MEDS: CYANOCOBALAMIN (VITAMIN B-12) 1,000 MCG TABLET. PO SCH (08:08)
[2018-02-26] MEDS: ESTRADIOL 0.01% VAGINAL CREAM 42.5GM TUBE. VG SCH (16:00)
[2018-02-26 16:38] VITALS: BP 141/90
[2018-02-26] MEDS: risperiDONE 0.5 MG TABLET. PO SCH (17:09)
[2018-02-26] MEDS: ATORVASTATIN CALCIUM 20 MG TABLET PO SCH (17:09)
--- NOTE | 2018-02-26 20:46 | PDOC ---
Exam Note: Julian Note: Please also refer to the separate dictated note~for this date of service dictated separately.~Patient seen individually. Discussed the patient with Nursing staff reviewed the chart.~Reviewed interim history and current functioning. Reviewed vital signs,~Labs/ Radiology~and current medications noted below. Continue current treatment with the changes noted in the dictated addendum note Assessment: Vital Signs: Vital Signs Date Time Temp Pulse Resp B/P (MAP) Pulse Ox O2 Delivery O2 Flow Rate FiO2 02/26/18 16:38 98.8 100 22 141/90 (107) 97 Room Air I&O Intake and Output 02/26/18 07:00 Intake Total 120 ml Balance 120 ml Intake Oral 120 ml # Voids 1 Current Medications: Meds: Current Medications Acetaminophen (Tylenol) 650 mg PRN Q6HRS PRN PO PAIN / TEMP; Start 02/12/18 at 21:45 Multi-Ingredient Ointment (Analgesic [place]) 1 speedy PRN QID PRN TP MUSCLE PAIN; Start 02/12/18 at 21:45 Al Hydroxide/Mg Hydroxide (Mylanta Plus Xs) 15 ml PRN AFTMEALHC PRN PO DYSPEPSIA; Start 02/12/18 at 21:45 Magnesium Hydroxide (Milk Of Magnesia) 2,400 mg PRN QHS PRN PO CONSTIPATION; Start 02/12/18 at 21:45 Carbamazepine (TEGretol) 150 mg BID PO ; Start 02/13/18 at 09:00; Stop 02/13/18 at 09:00; Status DC Carbamazepine (TEGretol) 300 mg BID PO Last administered on 02/21/18at 19:29; Start 02/13/18 at 09:00; Stop 02/21/18 at 23:54; Status DC Oxycodone/ Acetaminophen (Percocet 10/325) 1 tab PRN Q6HRS PRN PO PAIN Last administered on 02/23/18at 21:17; Start 02/12/18 at 22:30 Oxycodone/ Acetaminophen (Percocet 10/325) 1 tab PRN Q6HRS PRN PO PAIN; Start 02/12/18 at 22:30; Stop 02/12/18 at 22:40; Status DC Benztropine Mesylate (Cogentin) 0.5 mg BID PO Last administered on 02/17/18at 07 :25; Start 02/13/18 at 09:00; Stop 02/17/18 at 16:35; Status DC [place] Carbonate 300 mg DAILY PO Last administered on 02/18/18at 09:14; Start 02/13/18 at 09:00; Stop 02/19/18 at 11:29; Status DC [place] Carbonate 450 mg QHS PO Last administered on 02/17/18at 20:24; Start at 21:00; Stop 02/19/18 at 11:44; Status DC Risperidone (RisperDAL) 1 mg QHS PO Last administered on 02/13/18at 19:52; Start 02/13/18 at 21:00; Stop 02/14/18 at 19:16; Status DC Trazodone HCl (Desyrel) 50 mg QHS PO Last administered on 02/17/18at 20:24; Start 02/13/18 at 21:00; Stop 02/19/18 at 11:29; Status DC Acetaminophen (Tylenol) 650 mg PRN Q6HRS PRN PO PAIN / TEMP; Start 02/12/18 at 22:30; Stop 02/12/18 at 22:32; Status DC Atorvastatin Calcium (Lipitor) 20 mg QHS PO Last administered on 02/20/18at 20: 28; Start 02/13/18 at 21:00; Stop 02/21/18 at 23:54; Status DC Cyanocobalamin (Vitamin B-12) 1,000 mcg DAILY PO Last administered on at 08:08; Start 02/13/18 at 09:00 Estradiol (Estrace) 1 speedy HS VG ; Start 02/13/18 at 21:00; Stop 02/14/18 at 00: 47; Status DC Lactobacillus Rhamnosus (Culturelle) 1 cap BID PO Last administered on at 20:28; Start 02/13/18 at 09:00; Stop 02/21/18 at 23:54; Status DC Levothyroxine Sodium (Synthroid) 75 mcg DAILYAC PO Last administered on at 09:42; Start 02/13/18 at 07:30; Stop 02/13/18 at 11:19; Status DC Multi-Ingredient Ointment (Analgesic [place]) 1 speedy PRN QID PRN TP MUSCLE PAIN; Start 02/12/18 at 22:30; Status Cancel Sodium Chloride (Elmer) 1 inch HS OD Last administered on 02/25/18at 20:06; Start 02/13/18 at 21:00 Sorbitol (Sorbitol Solution) 1 ml PRN DAILY PRN PO CONSTIPATION; Start at 22:30; Status Cancel Amlodipine Besylate (Norvasc) 5 mg DAILY PO Last administered on 02/19/18at 13: 30; Start 02/13/18 at 09:00; Stop 02/19/18 at 17:00; Status DC Vitamin D (Vitamin D3) 50,000 unit WEEKLY PO ; Start 02/19/18 at 09:00; Stop at 09:00; Status DC Non-Formulary Medication (Mag Hydrox/ Aluminum Hyd/ Simeth (Maalox Advanced Suspension)) 15 ml PRN AFTMEALHC PRN PO DYSPEPSIA; Start 02/12/18 at 22:30; Stop 02/12/18 at 22:41; Status DC Non-Formulary Medication (Magnesium Hydroxide (Milk Of Magnesia)) 2,400 mg PRN DAILY PRN PO CONSTIPATION; Start 02/12/18 at 22:30; Stop 02/12/18 at 22:41; Status DC Polyethylene Glycol (miraLAX) 17 gm DAILY PO Last administered on 02/18/18at 09: 15; Start 02/13/18 at 09:00; Stop 02/25/18 at 14:01; Status DC Artificial Tears (Refresh Classic) 1 drop TID OU Last administered on at 21:17; Start 02/13/18 at 09:00; Stop 02/25/18 at 14:01; Status DC Non-Formulary Medication (Sodium Chloride (Elmer-128)) 1 drop HS OD ; Start 02/13 at 21:00; Stop 02/13/18 at 21:00; Status DC Levothyroxine Sodium (Synthroid) 75 mcg DAILY06 PO Last administered on at 10:03; Start 02/14/18 at 06:00 Sorbitol (Sorbitol Solution) 30 ml PRN DAILY PRN PO CONSTIPATION; Start at 11:00 Estradiol (Estrace) 1 speedy QMTH VG Last administered on 02/16/18at 20:02; Start 02/16/18 at 21:00 Info (FLU VACCINE per PROTOCOL) 1 ea PRN 1X PRN MC PER PROTOCOL; Start at 09:00; Status UNV Risperidone (RisperDAL) 1.5 mg QHS PO Last administered on 02/21/18at 19:26; Start 02/14/18 at 21:00; Stop 02/21/18 at 23:54; Status DC Bupropion HCl (Wellbutrin Xl) 150 mg DAILY PO Last administered on 02/19/18at 13 :30; Start 02/15/18 at 09:00; Stop 02/19/18 at 16:58; Status DC Quetiapine Fumarate (SEROquel) 25 mg QHS PO Last administered on 02/17/18at 20: 28; Start 02/15/18 at 21:00; Stop 02/19/18 at 11:29; Status DC Hydroxyzine HCl (Atarax) 10 mg PRN Q2HR PRN PO anxiety Last administered on 02/23/18at 21:17; Start 02/16/18 at 16:30 Benztropine Mesylate (Cogentin) 0.5 mg DAILY PO Last administered on at 08:07; Start 02/18/18 at 09:00 Mirtazapine (Remeron) 7.5 mg QHS PO Last administered on 02/22/18at 17:16; Start 02/17/18 at 21:00; Stop 02/23/18 at 16:10; Status DC Trazodone HCl (Desyrel) 50 mg PRN QHS PRN PO SEE ADMIN INSTRUCTIONS; Start 02/17/18 at 16:45; Stop 02/19/18 at 11:29; Status DC Trazodone HCl (Desyrel) 100 mg QHS PO ; Start 02/19/18 at 21:00; Stop 02/19/18 at 21:00; Status DC Trazodone HCl (Desyrel) 100 mg PRN QHS PRN PO SEE ADMIN INSTRUCTIONS; Start at 11:30 Trazodone HCl (Desyrel) 100 mg QHS PO Last administered on 02/25/18at 20:02; Start 02/19/18 at 21:00 Amlodipine Besylate (Norvasc) 10 mg DAILY PO Last administered on 02/26/18 08 :08; Start 02/20/18 at 09:00 Amlodipine Besylate (Norvasc) 5 mg 1X ONCE PO Last administered on 02/19/18 17:11; Start 02/19/18 at 17:00; Stop 02/19/18 at 17:06; Status DC Atorvastatin Calcium (Lipitor) 20 mg DAILYWSUP PO Last administered on at 17:09; Start 02/22/18 at 17:00 Carbamazepine (TEGretol) 300 mg BIDWMEALS PO ; Start 02/22/18 at 17:00; Stop at 17:00; Status DC Lactobacillus Rhamnosus (Culturelle) 1 cap BIDWMEALS PO Last administered on at 17:09; Start 02/22/18 at 08:00 Risperidone (RisperDAL) 1.5 mg DAILYWSUP PO Last administered on 02/26/18at 17: 09; Start 02/22/18 at 17:00 Carbamazepine (TEGretol) 300 mg BIDWMEALS PO Last administered on 02/24/18at 17: 26; Start 02/22/18 at 08:00; Stop 02/25/18 at 09:39; Status DC Mirtazapine (Remeron) 15 mg QHS PO Last administered on 02/23/18at 21:17; Start 02/23/18 at 17:00 Divalproex Sodium (Depakote Er) 500 mg QHS PO ; Start 02/25/18 at 21:00 Polyethylene Glycol (miraLAX) 17 gm PRN DAILY PRN PO CONSTIPATION; Start 02/25 at 14:00 Artificial Tears (Refresh Classic) 1 drop PRN TID PRN OU DRY EYE; Start at 14:00 Clozapine (Clozaril) 25 mg QHS PO ; Start 02/25/18 at 21:00 Active Scripts Active Reported Sorbitol (Sorbitol Solution) 1 Ml Solution 30 Ml PO PRN DAILY PRN Trazodone Hcl 50 Mg Tablet 50 Mg PO QHS Tegretol (Carbamazepine) 200 Mg Tablet 150 Mg PO BID Risperidone 1 Mg Tablet 1 Mg PO QHS Norvasc (Amlodipine Besylate) 5 Mg Tablet 5 Mg PO DAILY Elmer-128 (Sodium Chloride) 3.5 Gm Oint...g. 1 Speedy OP HS Miralax (Polyethylene Glycol 3350) 17 Gm Powd.pack 17 Gm PO DAILY Milk Of Magnesia (Magnesium Hydroxide) 2,400 Mg/10 Ml Oral.susp 30 Ml PO PRN DAILY PRN [place] Carbonate 450 Mg Tablet.er 450 Mg PO HS [place] Carbonate 150 Mg Capsule 300 Mg PO DAILY Lipitor (Atorvastatin Calcium) 20 Mg Tablet 20 Mg PO QHS Levothyroxine Sodium 75 Mcg Tablet 75 Mcg PO DAILYAC Estrace (Estradiol) 42.5 Gm Cream.appl 1 Speedy VG 2X WEEK Q MON, THURS Vitamin D2 (Ergocalciferol (Vitamin D2)) 50,000 Unit Capsule 50,000 Unit PO WEEKLY Endocet 10-325 Mg Tablet (Oxycodone Hcl/Acetaminophen) 1 Each Tablet 1 Each PO PRN Q6HRS PRN Vitamin B-12 (Cyanocobalamin (Vitamin B-12)) 1,000 Mcg Tablet 1,000 Mcg PO DAILY Benztropine Mesylate 0.5 Mg Tablet 0.5 Mg PO BID Tylenol (Acetaminophen) 325 Mg Tablet 650 Mg PO PRN Q6HRS PRN Maalox Advanced Suspension (Mag Hydrox/Aluminum Hyd/Simeth) 355 Ml Oral.susp 15 Ml PO PRN AFTMEALHC PRN Analgesic [place] (Methyl Salicylate/Menthol) 28 Gm Oint...g. 1 Speedy TP PRN QID PRN [place] Carbonate 300 Mg Capsule 450 Mg PO QHS Benztropine Mesylate 0.5 Mg Tablet 0.5 Mg PO QHS Risperidone 1 Mg Tablet 1.5 Mg PO QHS Refresh Classic Eye Drops (Polyvinyl Alcohol/Povidone/Pf) 1 Each Droperette 1 Each OU TID Culturelle (Lactobacillus Rhamnosus Gg) 1 Each Cap.sprink 1 Each PO BID Trazodone Hcl 50 Mg Tablet 50 Mg PO PRN QHS PRN Trazodone Hcl 50 Mg Tablet 50 Mg PO HS Tegretol (Carbamazepine) 200 Mg Tablet 300 Mg PO BID Norvasc (Amlodipine Besylate) 5 Mg Tablet 5 Mg PO DAILY Elmer-128 (Sodium Chloride) 15 Ml Drops 1 Drop OD HS Miralax (Polyethylene Glycol 3350) 17 Gm Powd.pack 17 Gm PO DAILY Milk Of Magnesia (Magnesium Hydroxide) 2,400 Mg/10 Ml Oral.susp 2,400 Mg PO PRN DAILY PRN [place] Carbonate 300 Mg Tablet 300 Mg PO DAILY Lipitor (Atorvastatin Calcium) 20 Mg Tablet 20 Mg PO QHS Levothyroxine Sodium 75 Mcg Tablet 75 Mcg PO DAILYAC Estrace (Estradiol) 42.5 Gm Cream.appl 1 Gm VG HS QMON/ Insert at bedtime on Friday and Vitamin D2 (Ergocalciferol (Vitamin D2)) 50,000 Unit Capsule 50,000 Unit PO WEEKLY Endocet 10-325 Mg Tablet (Oxycodone Hcl/Acetaminophen) 1 Each Tablet 1 Tab PO PRN Q6HRS PRN Tylenol (Acetaminophen) 325 Mg Tablet 650 Mg PO PRN Q6HRS PRN I have reviewed the current psychotropics carefully including drug interactions. Risk benefit ratio favors no change other than as noted in my dictated progress note. 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
[2018-02-26] MEDS: SODIUM CHLORIDE 5% OPHTH OINTMENT 3.5GM TUBE. OD SCH (21:00)
[2018-02-26] MEDS: traZODone 100 MG TABLET. PO SCH (21:09)
[2018-02-26] MEDS: DIVALPROEX ER 500 MG TAB.ER.24H PO SCH (21:09)
[2018-02-26] MEDS: MIRTAZAPINE 15 MG TABLET PO SCH (21:09)
[2018-02-26] MEDS: cloZAPine 25 MG TABLET PO SCH (21:09)
[2018-02-27] MEDS: LEVOTHYROXINE 75 MCG TABLET PO SCH (05:50)
[2018-02-27 06:10] VITALS: BP 132/83
[2018-02-27] MEDS: BENZTROPINE MESYLATE 0.5 MG TABLET PO SCH ×2 (07:37→09:00)
[2018-02-27] MEDS: amLODIPine BESYLATE 10 MG TABLET PO SCH ×2 (07:38→09:00)
[2018-02-27] MEDS: CYANOCOBALAMIN (VITAMIN B-12) 1,000 MCG TABLET. PO SCH ×2 (07:38→09:00)
[2018-02-27] MEDS: LACTOBACILLUS RHAMNOSUS GG 1 CAPSULE. PO SCH ×2 (07:38→17:00)
[2018-02-27 15:48] VITALS: BP 145/60
[2018-02-27] MEDS: ATORVASTATIN CALCIUM 20 MG TABLET PO SCH (17:00)
[2018-02-27] MEDS: cloZAPine 25 MG TABLET PO SCH (17:10)
[2018-02-27] MEDS: risperiDONE 0.5 MG TABLET. PO SCH (17:10)
[2018-02-27] MEDS: SODIUM CHLORIDE 5% OPHTH OINTMENT 3.5GM TUBE. OD SCH (20:37)
[2018-02-27] MEDS: MIRTAZAPINE 15 MG TABLET PO SCH (20:37)
[2018-02-27] MEDS: DIVALPROEX ER 500 MG TAB.ER.24H PO SCH (20:37)
[2018-02-27] MEDS: traZODone 100 MG TABLET. PO SCH (20:37)
--- NOTE | 2018-02-27 20:49 | PDOC ---
Exam Note: Julian Note: Please also refer to the separate dictated note~for this date of service dictated separately.~Patient seen individually. Discussed the patient with Nursing staff reviewed the chart.~Reviewed interim history and current functioning. Reviewed vital signs,~Labs/ Radiology~and current medications noted below. Continue current treatment with the changes noted in the dictated addendum note Assessment: Vital Signs: Vital Signs Date Time Temp Pulse Resp B/P (MAP) Pulse Ox O2 Delivery O2 Flow Rate FiO2 02/27/18 15:48 97.9 98 22 145/60 (88) 97 Room Air I&O Intake and Output 02/27/18 07:00 Intake Total 1320 ml Balance 1320 ml Intake Oral 1320 ml Current Medications: Meds: Current Medications Acetaminophen (Tylenol) 650 mg PRN Q6HRS PRN PO PAIN / TEMP; Start 02/12/18 at 21:45 Multi-Ingredient Ointment (Analgesic [place]) 1 speedy PRN QID PRN TP MUSCLE PAIN; Start 02/12/18 at 21:45 Al Hydroxide/Mg Hydroxide (Mylanta Plus Xs) 15 ml PRN AFTMEALHC PRN PO DYSPEPSIA; Start 02/12/18 at 21:45 Magnesium Hydroxide (Milk Of Magnesia) 2,400 mg PRN QHS PRN PO CONSTIPATION; Start 02/12/18 at 21:45 Carbamazepine (TEGretol) 150 mg BID PO ; Start 02/13/18 at 09:00; Stop 02/13/18 at 09:00; Status DC Carbamazepine (TEGretol) 300 mg BID PO Last administered on 02/21/18at 19:29; Start 02/13/18 at 09:00; Stop 02/21/18 at 23:54; Status DC Oxycodone/ Acetaminophen (Percocet 10/325) 1 tab PRN Q6HRS PRN PO PAIN Last administered on 02/23/18at 21:17; Start 02/12/18 at 22:30 Oxycodone/ Acetaminophen (Percocet 10/325) 1 tab PRN Q6HRS PRN PO PAIN; Start 02/12/18 at 22:30; Stop 02/12/18 at 22:40; Status DC Benztropine Mesylate (Cogentin) 0.5 mg BID PO Last administered on 02/17/18at 07 :25; Start 02/13/18 at 09:00; Stop 02/17/18 at 16:35; Status DC Lillie Carbonate 300 mg DAILY PO Last administered on 02/18/18at 09:14; Start 02/13/18 at 09:00; Stop 02/19/18 at 11:29; Status DC Lillie Carbonate 450 mg QHS PO Last administered on 02/17/18at 20:24; Start at 21:00; Stop 02/19/18 at 11:44; Status DC Risperidone (RisperDAL) 1 mg QHS PO Last administered on 02/13/18at 19:52; Start 02/13/18 at 21:00; Stop 02/14/18 at 19:16; Status DC Trazodone HCl (Desyrel) 50 mg QHS PO Last administered on 02/17/18at 20:24; Start 02/13/18 at 21:00; Stop 02/19/18 at 11:29; Status DC Acetaminophen (Tylenol) 650 mg PRN Q6HRS PRN PO PAIN / TEMP; Start 02/12/18 at 22:30; Stop 02/12/18 at 22:32; Status DC Atorvastatin Calcium (Lipitor) 20 mg QHS PO Last administered on 02/20/18at 20: 28; Start 02/13/18 at 21:00; Stop 02/21/18 at 23:54; Status DC Cyanocobalamin (Vitamin B-12) 1,000 mcg DAILY PO Last administered on at 08:08; Start 02/13/18 at 09:00 Estradiol (Estrace) 1 speedy HS VG ; Start 02/13/18 at 21:00; Stop 02/14/18 at 00: 47; Status DC Lactobacillus Rhamnosus (Culturelle) 1 cap BID PO Last administered on at 20:28; Start 02/13/18 at 09:00; Stop 02/21/18 at 23:54; Status DC Levothyroxine Sodium (Synthroid) 75 mcg DAILYAC PO Last administered on at 09:42; Start 02/13/18 at 07:30; Stop 02/13/18 at 11:19; Status DC Multi-Ingredient Ointment (Analgesic [place]) 1 speedy PRN QID PRN TP MUSCLE PAIN; Start 02/12/18 at 22:30; Status Cancel Sodium Chloride (Elmer) 1 inch HS OD Last administered on 02/25/18at 20:06; Start 02/13/18 at 21:00 Sorbitol (Sorbitol Solution) 1 ml PRN DAILY PRN PO CONSTIPATION; Start at 22:30; Status Cancel Amlodipine Besylate (Norvasc) 5 mg DAILY PO Last administered on 02/19/18at 13: 30; Start 02/13/18 at 09:00; Stop 02/19/18 at 17:00; Status DC Vitamin D (Vitamin D3) 50,000 unit WEEKLY PO ; Start 02/19/18 at 09:00; Stop at 09:00; Status DC Non-Formulary Medication (Mag Hydrox/ Aluminum Hyd/ Simeth (Maalox Advanced Suspension)) 15 ml PRN AFTMEALHC PRN PO DYSPEPSIA; Start 02/12/18 at 22:30; Stop 02/12/18 at 22:41; Status DC Non-Formulary Medication (Magnesium Hydroxide (Milk Of Magnesia)) 2,400 mg PRN DAILY PRN PO CONSTIPATION; Start 02/12/18 at 22:30; Stop 02/12/18 at 22:41; Status DC Polyethylene Glycol (miraLAX) 17 gm DAILY PO Last administered on 02/18/18at 09: 15; Start 02/13/18 at 09:00; Stop 02/25/18 at 14:01; Status DC Artificial Tears (Refresh Classic) 1 drop TID OU Last administered on at 21:17; Start 02/13/18 at 09:00; Stop 02/25/18 at 14:01; Status DC Non-Formulary Medication (Sodium Chloride (Elmer-128)) 1 drop HS OD ; Start 02/13 at 21:00; Stop 02/13/18 at 21:00; Status DC Levothyroxine Sodium (Synthroid) 75 mcg DAILY06 PO Last administered on at 05:50; Start 02/14/18 at 06:00 Sorbitol (Sorbitol Solution) 30 ml PRN DAILY PRN PO CONSTIPATION; Start at 11:00 Estradiol (Estrace) 1 speedy QMTH VG Last administered on 02/16/18at 20:02; Start 02/16/18 at 21:00 Info (FLU VACCINE per PROTOCOL) 1 ea PRN 1X PRN MC PER PROTOCOL; Start at 09:00; Status UNV Risperidone (RisperDAL) 1.5 mg QHS PO Last administered on 02/21/18at 19:26; Start 02/14/18 at 21:00; Stop 02/21/18 at 23:54; Status DC Bupropion HCl (Wellbutrin Xl) 150 mg DAILY PO Last administered on 02/19/18at 13 :30; Start 02/15/18 at 09:00; Stop 02/19/18 at 16:58; Status DC Quetiapine Fumarate (SEROquel) 25 mg QHS PO Last administered on 02/17/18at 20: 28; Start 02/15/18 at 21:00; Stop 02/19/18 at 11:29; Status DC Hydroxyzine HCl (Atarax) 10 mg PRN Q2HR PRN PO anxiety Last administered on 02/23/18at 21:17; Start 02/16/18 at 16:30 Benztropine Mesylate (Cogentin) 0.5 mg DAILY PO Last administered on at 08:07; Start 02/18/18 at 09:00 Mirtazapine (Remeron) 7.5 mg QHS PO Last administered on 02/22/18at 17:16; Start 02/17/18 at 21:00; Stop 02/23/18 at 16:10; Status DC Trazodone HCl (Desyrel) 50 mg PRN QHS PRN PO SEE ADMIN INSTRUCTIONS; Start 02/17/18 at 16:45; Stop 02/19/18 at 11:29; Status DC Trazodone HCl (Desyrel) 100 mg QHS PO ; Start 02/19/18 at 21:00; Stop 02/19/18 at 21:00; Status DC Trazodone HCl (Desyrel) 100 mg PRN QHS PRN PO SEE ADMIN INSTRUCTIONS; Start at 11:30 Trazodone HCl (Desyrel) 100 mg QHS PO Last administered on 02/27/18at 20:37; Start 02/19/18 at 21:00 Amlodipine Besylate (Norvasc) 10 mg DAILY PO Last administered on 02/26/18 08 :08; Start 02/20/18 at 09:00 Amlodipine Besylate (Norvasc) 5 mg 1X ONCE PO Last administered on 02/19/18 17:11; Start 02/19/18 at 17:00; Stop 02/19/18 at 17:06; Status DC Atorvastatin Calcium (Lipitor) 20 mg DAILYWSUP PO Last administered on 17:09; Start 02/22/18 at 17:00 Carbamazepine (TEGretol) 300 mg BIDWMEALS PO ; Start 02/22/18 at 17:00; Stop at 17:00; Status DC Lactobacillus Rhamnosus (Culturelle) 1 cap BIDWMEALS PO Last administered on at 07:38; Start 02/22/18 at 08:00 Risperidone (RisperDAL) 1.5 mg DAILYWSUP PO Last administered on 02/27/18 17: 10; Start 02/22/18 at 17:00 Carbamazepine (TEGretol) 300 mg BIDWMEALS PO Last administered on 02/24/18 17: 26; Start 02/22/18 at 08:00; Stop 02/25/18 at 09:39; Status DC Mirtazapine (Remeron) 15 mg QHS PO Last administered on 02/27/18at 20:37; Start 02/23/18 at 17:00 Divalproex Sodium (Depakote Er) 500 mg QHS PO Last administered on 02/27/18 20:37; Start 02/25/18 at 21:00 Polyethylene Glycol (miraLAX) 17 gm PRN DAILY PRN PO CONSTIPATION; Start 02/25 at 14:00 Artificial Tears (Refresh Classic) 1 drop PRN TID PRN OU DRY EYE; Start at 14:00 Clozapine (Clozaril) 25 mg QHS PO Last administered on 02/27/18at 17:10; Start 02/25/18 at 21:00 Active Scripts Active Reported Sorbitol (Sorbitol Solution) 1 Ml Solution 30 Ml PO PRN DAILY PRN Trazodone Hcl 50 Mg Tablet 50 Mg PO QHS Tegretol (Carbamazepine) 200 Mg Tablet 150 Mg PO BID Risperidone 1 Mg Tablet 1 Mg PO QHS Norvasc (Amlodipine Besylate) 5 Mg Tablet 5 Mg PO DAILY Elmer-128 (Sodium Chloride) 3.5 Gm Oint...g. 1 Speedy OP HS Miralax (Polyethylene Glycol 3350) 17 Gm Powd.pack 17 Gm PO DAILY Milk Of Magnesia (Magnesium Hydroxide) 2,400 Mg/10 Ml Oral.susp 30 Ml PO PRN DAILY PRN Lillie Carbonate 450 Mg Tablet.er 450 Mg PO HS Lillie Carbonate 150 Mg Capsule 300 Mg PO DAILY Lipitor (Atorvastatin Calcium) 20 Mg Tablet 20 Mg PO QHS Levothyroxine Sodium 75 Mcg Tablet 75 Mcg PO DAILYAC Estrace (Estradiol) 42.5 Gm Cream.appl 1 Speedy VG 2X WEEK Q MON, THURS Vitamin D2 (Ergocalciferol (Vitamin D2)) 50,000 Unit Capsule 50,000 Unit PO WEEKLY Endocet 10-325 Mg Tablet (Oxycodone Hcl/Acetaminophen) 1 Each Tablet 1 Each PO PRN Q6HRS PRN Vitamin B-12 (Cyanocobalamin (Vitamin B-12)) 1,000 Mcg Tablet 1,000 Mcg PO DAILY Benztropine Mesylate 0.5 Mg Tablet 0.5 Mg PO BID Tylenol (Acetaminophen) 325 Mg Tablet 650 Mg PO PRN Q6HRS PRN Maalox Advanced Suspension (Mag Hydrox/Aluminum Hyd/Simeth) 355 Ml Oral.susp 15 Ml PO PRN AFTMEALHC PRN Analgesic [place] (Methyl Salicylate/Menthol) 28 Gm Oint...g. 1 Speedy TP PRN QID PRN Lillie Carbonate 300 Mg Capsule 450 Mg PO QHS Benztropine Mesylate 0.5 Mg Tablet 0.5 Mg PO QHS Risperidone 1 Mg Tablet 1.5 Mg PO QHS Refresh Classic Eye Drops (Polyvinyl Alcohol/Povidone/Pf) 1 Each Droperette 1 Each OU TID Culturelle (Lactobacillus Rhamnosus Gg) 1 Each Cap.sprink 1 Each PO BID Trazodone Hcl 50 Mg Tablet 50 Mg PO PRN QHS PRN Trazodone Hcl 50 Mg Tablet 50 Mg PO HS Tegretol (Carbamazepine) 200 Mg Tablet 300 Mg PO BID Norvasc (Amlodipine Besylate) 5 Mg Tablet 5 Mg PO DAILY Elmer-128 (Sodium Chloride) 15 Ml Drops 1 Drop OD HS Miralax (Polyethylene Glycol 3350) 17 Gm Powd.pack 17 Gm PO DAILY Milk Of Magnesia (Magnesium Hydroxide) 2,400 Mg/10 Ml Oral.susp 2,400 Mg PO PRN DAILY PRN Lillie Carbonate 300 Mg Tablet 300 Mg PO DAILY Lipitor (Atorvastatin Calcium) 20 Mg Tablet 20 Mg PO QHS Levothyroxine Sodium 75 Mcg Tablet 75 Mcg PO DAILYAC Estrace (Estradiol) 42.5 Gm Cream.appl 1 Gm VG HS QMON/ Insert at bedtime on Friday and Vitamin D2 (Ergocalciferol (Vitamin D2)) 50,000 Unit Capsule 50,000 Unit PO WEEKLY Endocet 10-325 Mg Tablet (Oxycodone Hcl/Acetaminophen) 1 Each Tablet 1 Tab PO PRN Q6HRS PRN Tylenol (Acetaminophen) 325 Mg Tablet 650 Mg PO PRN Q6HRS PRN I have reviewed the current psychotropics carefully including drug interactions. Risk benefit ratio favors no change other than as noted in my dictated progress note. 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
--- NOTE | 2018-02-27 20:56 | PN ---
DATE: 02/25/2018 PSYCHIATRIC PROGRESS NOTE This late entry 02/25/2018 covers elements not covered in my initial note. SUBJECTIVE: I met with the patient in the evening. The patient slept 8 hours previous night. Previous evening, she was combative. Nurses were checking her vital signs, refused medications, withdrawn, ate nothing for breakfast, ate lunch. We have checked with the pharmacist at the hospital and they indicated that since she is off the Tegretol, we can go ahead and start the Clozaril, which we will do starting 25 mg p.o. at bedtime. Check a CBC, absolute neutrophil count every Friday. REVIEW OF SYSTEMS: No CV, , pulmonary, eye, ENT system symptoms on review. Reliability poor, both due to her psychosis and confusion. MENTAL STATUS EXAM: Oriented to herself and situation. Speech, often responses monosyllabic. Abstraction fair. Computation, unable to do serial sevens or at least participate with this. Remains somewhat paranoid with mood lability. No suicidal or homicidal ideation. LABORATORY DATA: Reviewed. IMPRESSION: Schizoaffective disorder, bipolar type, mixed; cognitive disorder, unspecified; anxiety disorder, unspecified. PLAN: Start Clozaril as noted and we will then discontinue the Risperdal once Clozaril is therapeutic. Maintain Depakote, Remeron, hydroxyzine, low dose of Cogentin, and at bedtime trazodone for insomnia. Check labs level on the Depakote; 02/27/2018, adjust to reach therapeutic level. KIERSTEN WATT MD DR: SANCHEZ/fredrick JOB#: [id number] / [id number]
--- NOTE | 2018-02-27 22:31 | PN ---
DATE: 02/26/2018 This is a late entry for 02/26/2018 covers elements not covered in my initial note. SUBJECTIVE: I met with the patient in the evening. The patient slept 6 hours previous evening. I also met with the patient's in the evening. Discussed her progress and initiation of Clozaril with him. The patient was also staffed at a treatment team meeting with the entire team in the morning. She slept 6 hours previous evening, took her medications, sleepy in the morning. REVIEW OF SYSTEMS: No CV, , pulmonary, eye, ENT system symptoms on review. Reliability varies. MENTAL STATUS EXAM: Oriented to herself. Insight, judgment, recent memory is impaired. Language function intact. Attention span short. Mood and affect somewhat dysphoric. LABORATORY DATA: Reviewed. IMPRESSION: Schizoaffective disorder, bipolar type, depressed, cognitive disorder, unspecified. PLAN: Continue psychotropics from initial note including Clozaril with weekly blood counts. MAN Rox AWTT MD DR: SANCHEZ/fredrick JOB#: [id number] / [id number]
[2018-02-28 05:47] VITALS: BP 158/86
[2018-02-28] MEDS: amLODIPine BESYLATE 10 MG TABLET PO SCH (08:15)
[2018-02-28] MEDS: LACTOBACILLUS RHAMNOSUS GG 1 CAPSULE. PO SCH ×2 (08:15→17:00)
[2018-02-28] MEDS: LEVOTHYROXINE 75 MCG TABLET PO SCH (08:15)
[2018-02-28] MEDS: BENZTROPINE MESYLATE 0.5 MG TABLET PO SCH (08:15)
[2018-02-28] MEDS: CYANOCOBALAMIN (VITAMIN B-12) 1,000 MCG TABLET. PO SCH (08:15)
[2018-02-28 11:06] LABS: BASO % 1 % (0-3); EOS # 0.1 x10^3/uL (0.0-0.7); EOS % 2 % (0-3); HEMATOCRIT 44.2 % (36.0-47.0); HEMOGLOBIN 14.8 g/dL (12.0-15.5); LYMPH # 1.8 x10^3/uL (1.0-4.8); LYMPH % 29 % (24-48); MEAN CORPUSCULAR HEMOGLOBIN 31 pg (25-35); MEAN CORPUSCULAR HGB CONC 34 g/dL (31-37); MEAN CORPUSCULAR VOLUME 91 fL (79-100); MONO # 0.6 x10^3/uL (0.0-1.1); MONO % 10 % (0-9); NEUT # 3.6 x10^3uL (1.8-7.7); NEUT % 59 % (31-73); PLATELET COUNT 242 x10^3/uL (140-400); RED BLOOD COUNT 4.85 x10^6/uL (3.50-5.40); RED CELL DISTRIBUTION WIDTH 12.9 % (11.5-14.5); WHITE BLOOD COUNT 6.2 x10^3/uL (4.0-11.0)
[2018-02-28 11:27] LABS: ALBUMIN 3.6 g/dL (3.4-5.0); ALBUMIN/GLOBULIN RATIO 0.9 (1.0-1.7); ALK PHOS 145 U/L (46-116); ALT (SGPT) 35 U/L (14-59); ANION GAP 8 (6-14); AST (SGOT) 24 U/L (15-37); BLOOD UREA NITROGEN 11 mg/dL (7-20); BUN/CREATININE RATIO 12 (6-20); CALCIUM 10.8 mg/dL (8.5-10.1); CARBON DIOXIDE 27 mmol/L (21-32); CHLORIDE 108 mmol/L (98-107); CREATININE 0.9 mg/dL (0.6-1.0); GFR 62.3; GLUCOSE 115 mg/dL (70-99); POTASSIUM 4.8 mmol/L (3.5-5.1); SODIUM 143 mmol/L (136-145); TOTAL BILIRUBIN 0.2 mg/dL (0.2-1.0); TOTAL PROTEIN 7.6 g/dL (6.4-8.2)
[2018-02-28 11:34] LABS: VAL ACID 46 mcg/mL (50-100)
[2018-02-28 16:34] VITALS: BP 122/79
[2018-02-28] MEDS: ATORVASTATIN CALCIUM 20 MG TABLET PO SCH (17:00)
[2018-02-28] MEDS: risperiDONE 0.5 MG TABLET. PO SCH (17:26)
--- NOTE | 2018-02-28 19:17 | PN ---
DATE: 02/27/2018 PSYCHIATRIC PROGRESS NOTE This late entry 02/27/2018 covers elements not covered in my initial note. SUBJECTIVE: I met with the patient in the evening in her room at some length. The patient slept 6 hours previous night, compliant with taking medications, sleeping in the morning. We will administer her Clozaril any time of the day she takes it. Her did not visit her on 02/27/2018. REVIEW OF SYSTEMS: No CV, , pulmonary, eye, ENT system symptoms on review. Reliability poor. MENTAL STATUS EXAM: Oriented to herself. Does not answer, rest of the orientation question asked of her. Speech, often responses monosyllabic if that. She has contracted facial expression, anxious, remains psychotic. Attention span short. Language function intact. Mood and affect remain somewhat labile, anxious, withdrawn. LABORATORY DATA: Reviewed. IMPRESSION: Unchanged from initial note. PLAN: No change from initial note. MAN Rox WATT MD DR: SANCHEZ/fredrick JOB#: [id number] / [id number]
[2018-02-28] MEDS: cloZAPine 25 MG TABLET PO SCH (19:52)
[2018-02-28] MEDS: traZODone 100 MG TABLET. PO SCH (19:53)
[2018-02-28] MEDS: DIVALPROEX ER 500 MG TAB.ER.24H PO SCH (19:53)
[2018-02-28] MEDS: MIRTAZAPINE 15 MG TABLET PO SCH (19:53)
[2018-02-28] MEDS: SODIUM CHLORIDE 5% OPHTH OINTMENT 3.5GM TUBE. OD SCH (19:53)
--- NOTE | 2018-02-28 22:46 | PDOC ---
Exam Note: Julian Note: Please also refer to the separate dictated note~for this date of service dictated separately.~Patient seen individually. Discussed the patient with Nursing staff reviewed the chart.~Reviewed interim history and current functioning. Reviewed vital signs,~Labs/ Radiology~and current medications noted below. Continue current treatment with the changes noted in the dictated addendum note Assessment: Vital Signs: Vital Signs Date Time Temp Pulse Resp B/P (MAP) Pulse Ox O2 Delivery O2 Flow Rate FiO2 02/28/18 16:34 97.9 79 18 122/79 (93) 96 02/27/18 15:48 Room Air I&O Intake and Output 02/28/18 07:00 Intake Total 1260 ml Balance 1260 ml Intake Oral 1260 ml Labs: Laboratory Tests Test 02/28/18 10:27 White Blood Count 6.2 x10^3/uL (4.0-11.0) Red Blood Count 4.85 x10^6/uL (3.50-5.40) Hemoglobin 14.8 g/dL (12.0-15.5) Hematocrit 44.2 % (36.0-47.0) Mean Corpuscular Volume 91 fL (79-100) Mean Corpuscular Hemoglobin 31 pg (25-35) Mean Corpuscular Hemoglobin Concent 34 g/dL (31-37) Red Cell Distribution Width 12.9 % (11.5-14.5) Platelet Count 242 x10^3/uL (140-400) Neutrophils (%) (Auto) 59 % (31-73) Lymphocytes (%) (Auto) 29 % (24-48) Monocytes (%) (Auto) 10 % (0-9) H Eosinophils (%) (Auto) 2 % (0-3) Basophils (%) (Auto) 1 % (0-3) Neutrophils # (Auto) 3.6 x10^3uL (1.8-7.7) Lymphocytes # (Auto) 1.8 x10^3/uL (1.0-4.8) Monocytes # (Auto) 0.6 x10^3/uL (0.0-1.1) Eosinophils # (Auto) 0.1 x10^3/uL (0.0-0.7) Basophils # (Auto) 0.0 x10^3/uL (0.0-0.2) Sodium Level 143 mmol/L (136-145) Potassium Level 4.8 mmol/L (3.5-5.1) Chloride Level 108 mmol/L (98-107) H Carbon Dioxide Level 27 mmol/L (21-32) Anion Gap 8 (6-14) Blood Urea Nitrogen 11 mg/dL (7-20) Creatinine 0.9 mg/dL (0.6-1.0) Estimated GFR (Cockcroft-Gault) 62.3 BUN/Creatinine Ratio 12 (6-20) Glucose Level 115 mg/dL (70-99) H Calcium Level 10.8 mg/dL (8.5-10.1) H Total Bilirubin 0.2 mg/dL (0.2-1.0) Aspartate Amino Transferase (AST) 24 U/L (15-37) Alanine Aminotransferase (ALT) 35 U/L (14-59) Alkaline Phosphatase 145 U/L (46-116) H Total Protein 7.6 g/dL (6.4-8.2) Albumin 3.6 g/dL (3.4-5.0) Albumin/Globulin Ratio 0.9 (1.0-1.7) L Valproic Acid Level 46 mcg/mL (50-100) L Valproic Acid Last Dose Date 02/27/18 Valproic Acid Last Dose Time 2100 Current Medications: Meds: Current Medications Acetaminophen (Tylenol) 650 mg PRN Q6HRS PRN PO PAIN / TEMP; Start 02/12/18 at 21:45 Multi-Ingredient Ointment (Analgesic [place]) 1 speedy PRN QID PRN TP MUSCLE PAIN; Start 02/12/18 at 21:45 Al Hydroxide/Mg Hydroxide (Mylanta Plus Xs) 15 ml PRN AFTMEALHC PRN PO DYSPEPSIA; Start 02/12/18 at 21:45 Magnesium Hydroxide (Milk Of Magnesia) 2,400 mg PRN QHS PRN PO CONSTIPATION; Start 02/12/18 at 21:45 Carbamazepine (TEGretol) 150 mg BID PO ; Start 02/13/18 at 09:00; Stop 02/13/18 at 09:00; Status DC Carbamazepine (TEGretol) 300 mg BID PO Last administered on 02/21/18at 19:29; Start 02/13/18 at 09:00; Stop 02/21/18 at 23:54; Status DC Oxycodone/ Acetaminophen (Percocet 10/325) 1 tab PRN Q6HRS PRN PO PAIN Last administered on 02/23/18at 21:17; Start 02/12/18 at 22:30 Oxycodone/ Acetaminophen (Percocet 10/325) 1 tab PRN Q6HRS PRN PO PAIN; Start 02/12/18 at 22:30; Stop 02/12/18 at 22:40; Status DC Benztropine Mesylate (Cogentin) 0.5 mg BID PO Last administered on 02/17/18at 07 :25; Start 02/13/18 at 09:00; Stop 02/17/18 at 16:35; Status DC [place] Carbonate 300 mg DAILY PO Last administered on 02/18/18at 09:14; Start 02/13/18 at 09:00; Stop 02/19/18 at 11:29; Status DC [place] Carbonate 450 mg QHS PO Last administered on 02/17/18at 20:24; Start at 21:00; Stop 02/19/18 at 11:44; Status DC Risperidone (RisperDAL) 1 mg QHS PO Last administered on 02/13/18at 19:52; Start 02/13/18 at 21:00; Stop 02/14/18 at 19:16; Status DC Trazodone HCl (Desyrel) 50 mg QHS PO Last administered on 02/17/18at 20:24; Start 02/13/18 at 21:00; Stop 02/19/18 at 11:29; Status DC Acetaminophen (Tylenol) 650 mg PRN Q6HRS PRN PO PAIN / TEMP; Start 02/12/18 at 22:30; Stop 02/12/18 at 22:32; Status DC Atorvastatin Calcium (Lipitor) 20 mg QHS PO Last administered on 02/20/18at 20: 28; Start 02/13/18 at 21:00; Stop 02/21/18 at 23:54; Status DC Cyanocobalamin (Vitamin B-12) 1,000 mcg DAILY PO Last administered on at 08:08; Start 02/13/18 at 09:00 Estradiol (Estrace) 1 speedy HS VG ; Start 02/13/18 at 21:00; Stop 02/14/18 at 00: 47; Status DC Lactobacillus Rhamnosus (Culturelle) 1 cap BID PO Last administered on at 20:28; Start 02/13/18 at 09:00; Stop 02/21/18 at 23:54; Status DC Levothyroxine Sodium (Synthroid) 75 mcg DAILYAC PO Last administered on at 09:42; Start 02/13/18 at 07:30; Stop 02/13/18 at 11:19; Status DC Multi-Ingredient Ointment (Analgesic [place]) 1 speedy PRN QID PRN TP MUSCLE PAIN; Start 02/12/18 at 22:30; Status Cancel Sodium Chloride ([place]) 1 inch HS OD Last administered on 02/25/18at 20:06; Start 02/13/18 at 21:00 Sorbitol (Sorbitol Solution) 1 ml PRN DAILY PRN PO CONSTIPATION; Start at 22:30; Status Cancel Amlodipine Besylate (Norvasc) 5 mg DAILY PO Last administered on 02/19/18at 13: 30; Start 02/13/18 at 09:00; Stop 02/19/18 at 17:00; Status DC Vitamin D (Vitamin D3) 50,000 unit WEEKLY PO ; Start 02/19/18 at 09:00; Stop at 09:00; Status DC Non-Formulary Medication (Mag Hydrox/ Aluminum Hyd/ Simeth (Maalox Advanced Suspension)) 15 ml PRN AFTMEALHC PRN PO DYSPEPSIA; Start 02/12/18 at 22:30; Stop 02/12/18 at 22:41; Status DC Non-Formulary Medication (Magnesium Hydroxide (Milk Of Magnesia)) 2,400 mg PRN DAILY PRN PO CONSTIPATION; Start 02/12/18 at 22:30; Stop 02/12/18 at 22:41; Status DC Polyethylene Glycol (miraLAX) 17 gm DAILY PO Last administered on 02/18/18at 09: 15; Start 02/13/18 at 09:00; Stop 02/25/18 at 14:01; Status DC Artificial Tears (Refresh Classic) 1 drop TID OU Last administered on at 21:17; Start 02/13/18 at 09:00; Stop 02/25/18 at 14:01; Status DC Non-Formulary Medication (Sodium Chloride ([place]-128)) 1 drop HS OD ; Start 02/13 at 21:00; Stop 02/13/18 at 21:00; Status DC Levothyroxine Sodium (Synthroid) 75 mcg DAILY06 PO Last administered on at 05:50; Start 02/14/18 at 06:00 Sorbitol (Sorbitol Solution) 30 ml PRN DAILY PRN PO CONSTIPATION; Start at 11:00 Estradiol (Estrace) 1 speedy QMTH VG Last administered on 02/16/18at 20:02; Start 02/16/18 at 21:00 Info (FLU VACCINE per PROTOCOL) 1 ea PRN 1X PRN MC PER PROTOCOL; Start at 09:00; Status UNV Risperidone (RisperDAL) 1.5 mg QHS PO Last administered on 02/21/18at 19:26; Start 02/14/18 at 21:00; Stop 02/21/18 at 23:54; Status DC Bupropion HCl (Wellbutrin Xl) 150 mg DAILY PO Last administered on 02/19/18at 13 :30; Start 02/15/18 at 09:00; Stop 02/19/18 at 16:58; Status DC Quetiapine Fumarate (SEROquel) 25 mg QHS PO Last administered on 02/17/18at 20: 28; Start 02/15/18 at 21:00; Stop 02/19/18 at 11:29; Status DC Hydroxyzine HCl (Atarax) 10 mg PRN Q2HR PRN PO anxiety Last administered on 02/23/18at 21:17; Start 02/16/18 at 16:30 Benztropine Mesylate (Cogentin) 0.5 mg DAILY PO Last administered on at 08:07; Start 02/18/18 at 09:00 Mirtazapine (Remeron) 7.5 mg QHS PO Last administered on 02/22/18at 17:16; Start 02/17/18 at 21:00; Stop 02/23/18 at 16:10; Status DC Trazodone HCl (Desyrel) 50 mg PRN QHS PRN PO SEE ADMIN INSTRUCTIONS; Start 02/17/18 at 16:45; Stop 02/19/18 at 11:29; Status DC Trazodone HCl (Desyrel) 100 mg QHS PO ; Start 02/19/18 at 21:00; Stop 02/19/18 at 21:00; Status DC Trazodone HCl (Desyrel) 100 mg PRN QHS PRN PO SEE ADMIN INSTRUCTIONS; Start at 11:30 Trazodone HCl (Desyrel) 100 mg QHS PO Last administered on 02/28/18 19:53; Start 02/19/18 at 21:00 Amlodipine Besylate (Norvasc) 10 mg DAILY PO Last administered on 02/26/18 08 :08; Start 02/20/18 at 09:00 Amlodipine Besylate (Norvasc) 5 mg 1X ONCE PO Last administered on 02/19/18 17:11; Start 02/19/18 at 17:00; Stop 02/19/18 at 17:06; Status DC Atorvastatin Calcium (Lipitor) 20 mg DAILYWSUP PO Last administered on 17:09; Start 02/22/18 at 17:00 Carbamazepine (TEGretol) 300 mg BIDWMEALS PO ; Start 02/22/18 at 17:00; Stop at 17:00; Status DC Lactobacillus Rhamnosus (Culturelle) 1 cap BIDWMEALS PO Last administered on at 07:38; Start 02/22/18 at 08:00; Stop 02/28/18 at 17:12; Status DC Risperidone (RisperDAL) 1.5 mg DAILYWSUP PO Last administered on 02/28/18 17: 26; Start 02/22/18 at 17:00 Carbamazepine (TEGretol) 300 mg BIDWMEALS PO Last administered on 02/24/18 17: 26; Start 02/22/18 at 08:00; Stop 02/25/18 at 09:39; Status DC Mirtazapine (Remeron) 15 mg QHS PO Last administered on 02/28/18 19:53; Start 02/23/18 at 17:00 Divalproex Sodium (Depakote Er) 500 mg QHS PO Last administered on 02/28/18 19:53; Start 02/25/18 at 21:00 Polyethylene Glycol (miraLAX) 17 gm PRN DAILY PRN PO CONSTIPATION; Start 02/25 at 14:00 Artificial Tears (Refresh Classic) 1 drop PRN TID PRN OU DRY EYE; Start at 14:00 Clozapine (Clozaril) 25 mg QHS PO Last administered on 02/28/18at 19:52; Start 02/25/18 at 21:00 Active Scripts Active Reported Sorbitol (Sorbitol Solution) 1 Ml Solution 30 Ml PO PRN DAILY PRN Trazodone Hcl 50 Mg Tablet 50 Mg PO QHS Tegretol (Carbamazepine) 200 Mg Tablet 150 Mg PO BID Risperidone 1 Mg Tablet 1 Mg PO QHS Norvasc (Amlodipine Besylate) 5 Mg Tablet 5 Mg PO DAILY [place]-128 (Sodium Chloride) 3.5 Gm Oint...g. 1 Speedy OP HS Miralax (Polyethylene Glycol 3350) 17 Gm Powd.pack 17 Gm PO DAILY Milk Of Magnesia (Magnesium Hydroxide) 2,400 Mg/10 Ml Oral.susp 30 Ml PO PRN DAILY PRN [place] Carbonate 450 Mg Tablet.er 450 Mg PO HS [place] Carbonate 150 Mg Capsule 300 Mg PO DAILY Lipitor (Atorvastatin Calcium) 20 Mg Tablet 20 Mg PO QHS Levothyroxine Sodium 75 Mcg Tablet 75 Mcg PO DAILYAC Estrace (Estradiol) 42.5 Gm Cream.appl 1 Speedy VG 2X WEEK Q FRI, Vitamin D2 (Ergocalciferol (Vitamin D2)) 50,000 Unit Capsule 50,000 Unit PO WEEKLY Endocet 10-325 Mg Tablet (Oxycodone Hcl/Acetaminophen) 1 Each Tablet 1 Each PO PRN Q6HRS PRN Vitamin B-12 (Cyanocobalamin (Vitamin B-12)) 1,000 Mcg Tablet 1,000 Mcg PO DAILY Benztropine Mesylate 0.5 Mg Tablet 0.5 Mg PO BID Tylenol (Acetaminophen) 325 Mg Tablet 650 Mg PO PRN Q6HRS PRN Maalox Advanced Suspension (Mag Hydrox/Aluminum Hyd/Simeth) 355 Ml Oral.susp 15 Ml PO PRN AFTMEALHC PRN Analgesic [place] (Methyl Salicylate/Menthol) 28 Gm Oint...g. 1 Speedy TP PRN QID PRN [place] Carbonate 300 Mg Capsule 450 Mg PO QHS Benztropine Mesylate 0.5 Mg Tablet 0.5 Mg PO QHS Risperidone 1 Mg Tablet 1.5 Mg PO QHS Refresh Classic Eye Drops (Polyvinyl Alcohol/Povidone/Pf) 1 Each Droperette 1 Each OU TID Culturelle (Lactobacillus Rhamnosus Gg) 1 Each Cap.sprink 1 Each PO BID Trazodone Hcl 50 Mg Tablet 50 Mg PO PRN QHS PRN Trazodone Hcl 50 Mg Tablet 50 Mg PO HS Tegretol (Carbamazepine) 200 Mg Tablet 300 Mg PO BID Norvasc (Amlodipine Besylate) 5 Mg Tablet 5 Mg PO DAILY [place]-128 (Sodium Chloride) 15 Ml Drops 1 Drop OD HS Miralax (Polyethylene Glycol 3350) 17 Gm Powd.pack 17 Gm PO DAILY Milk Of Magnesia (Magnesium Hydroxide) 2,400 Mg/10 Ml Oral.susp 2,400 Mg PO PRN DAILY PRN [place] Carbonate 300 Mg Tablet 300 Mg PO DAILY Lipitor (Atorvastatin Calcium) 20 Mg Tablet 20 Mg PO QHS Levothyroxine Sodium 75 Mcg Tablet 75 Mcg PO DAILYAC Estrace (Estradiol) 42.5 Gm Cream.appl 1 Gm VG HS QMON/TH Insert at bedtime on Friday and Vitamin D2 (Ergocalciferol (Vitamin D2)) 50,000 Unit Capsule 50,000 Unit PO WEEKLY Endocet 10-325 Mg Tablet (Oxycodone Hcl/Acetaminophen) 1 Each Tablet 1 Tab PO PRN Q6HRS PRN Tylenol (Acetaminophen) 325 Mg Tablet 650 Mg PO PRN Q6HRS PRN I have reviewed the current psychotropics carefully including drug interactions. Risk benefit ratio favors no change other than as noted in my dictated progress note. 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
[2018-03-01 06:25] VITALS: BP 155/78
[2018-03-01] MEDS: BENZTROPINE MESYLATE 0.5 MG TABLET PO SCH ×2 (11:43→12:17)
[2018-03-01] MEDS: CYANOCOBALAMIN (VITAMIN B-12) 1,000 MCG TABLET. PO SCH (11:43)
[2018-03-01] MEDS: amLODIPine BESYLATE 10 MG TABLET PO SCH ×2 (11:43→12:17)
[2018-03-01] MEDS: LEVOTHYROXINE 75 MCG TABLET PO SCH ×2 (11:43→12:17)
[2018-03-01 16:11] VITALS: BP 147/67
[2018-03-01] MEDS: cloZAPine 25 MG TABLET PO SCH (16:34)
[2018-03-01] MEDS: MIRTAZAPINE 15 MG TABLET PO SCH (16:35)
[2018-03-01] MEDS: traZODone 100 MG TABLET. PO SCH (16:35)
[2018-03-01] MEDS: ATORVASTATIN CALCIUM 20 MG TABLET PO SCH (16:35)
[2018-03-01] MEDS: risperiDONE 0.5 MG TABLET. PO SCH (16:35)
[2018-03-01] MEDS: DIVALPROEX ER 500 MG TAB.ER.24H PO SCH (16:35)
--- NOTE | 2018-03-01 20:50 | PDOC ---
Exam Note: Julian Note: Please also refer to the separate dictated note~for this date of service dictated separately.~Patient seen individually. Discussed the patient with Nursing staff reviewed the chart.~Reviewed interim history and current functioning. Reviewed vital signs,~Labs/ Radiology~and current medications noted below. Continue current treatment with the changes noted in the dictated addendum note Assessment: Vital Signs: Vital Signs Date Time Temp Pulse Resp B/P (MAP) Pulse Ox O2 Delivery O2 Flow Rate FiO2 03/01/18 16:11 97.0 86 20 147/67 (93) 96 02/27/18 15:48 Room Air I&O Intake and Output 03/01/18 07:00 Intake Total 600 ml Balance 600 ml Intake Oral 600 ml Current Medications: Meds: Current Medications Acetaminophen (Tylenol) 650 mg PRN Q6HRS PRN PO PAIN / TEMP; Start 02/12/18 at 21:45 Multi-Ingredient Ointment (Analgesic [place]) 1 speedy PRN QID PRN TP MUSCLE PAIN; Start 02/12/18 at 21:45 Al Hydroxide/Mg Hydroxide (Mylanta Plus Xs) 15 ml PRN AFTMEALHC PRN PO DYSPEPSIA; Start 02/12/18 at 21:45 Magnesium Hydroxide (Milk Of Magnesia) 2,400 mg PRN QHS PRN PO CONSTIPATION; Start 02/12/18 at 21:45 Carbamazepine (TEGretol) 150 mg BID PO ; Start 02/13/18 at 09:00; Stop 02/13/18 at 09:00; Status DC Carbamazepine (TEGretol) 300 mg BID PO Last administered on 02/21/18at 19:29; Start 02/13/18 at 09:00; Stop 02/21/18 at 23:54; Status DC Oxycodone/ Acetaminophen (Percocet 10/325) 1 tab PRN Q6HRS PRN PO PAIN Last administered on 02/23/18at 21:17; Start 02/12/18 at 22:30 Oxycodone/ Acetaminophen (Percocet 10/325) 1 tab PRN Q6HRS PRN PO PAIN; Start 02/12/18 at 22:30; Stop 02/12/18 at 22:40; Status DC Benztropine Mesylate (Cogentin) 0.5 mg BID PO Last administered on 02/17/18at 07 :25; Start 02/13/18 at 09:00; Stop 02/17/18 at 16:35; Status DC [place] Carbonate 300 mg DAILY PO Last administered on 02/18/18at 09:14; Start 02/13/18 at 09:00; Stop 02/19/18 at 11:29; Status DC [place] Carbonate 450 mg QHS PO Last administered on 02/17/18at 20:24; Start at 21:00; Stop 02/19/18 at 11:44; Status DC Risperidone (RisperDAL) 1 mg QHS PO Last administered on 02/13/18at 19:52; Start 02/13/18 at 21:00; Stop 02/14/18 at 19:16; Status DC Trazodone HCl (Desyrel) 50 mg QHS PO Last administered on 02/17/18at 20:24; Start 02/13/18 at 21:00; Stop 02/19/18 at 11:29; Status DC Acetaminophen (Tylenol) 650 mg PRN Q6HRS PRN PO PAIN / TEMP; Start 02/12/18 at 22:30; Stop 02/12/18 at 22:32; Status DC Atorvastatin Calcium (Lipitor) 20 mg QHS PO Last administered on 02/20/18at 20: 28; Start 02/13/18 at 21:00; Stop 02/21/18 at 23:54; Status DC Cyanocobalamin (Vitamin B-12) 1,000 mcg DAILY PO Last administered on at 08:08; Start 02/13/18 at 09:00 Estradiol (Estrace) 1 speedy HS VG ; Start 02/13/18 at 21:00; Stop 02/14/18 at 00: 47; Status DC Lactobacillus Rhamnosus (Culturelle) 1 cap BID PO Last administered on at 20:28; Start 02/13/18 at 09:00; Stop 02/21/18 at 23:54; Status DC Levothyroxine Sodium (Synthroid) 75 mcg DAILYAC PO Last administered on at 09:42; Start 02/13/18 at 07:30; Stop 02/13/18 at 11:19; Status DC Multi-Ingredient Ointment (Analgesic [place]) 1 speedy PRN QID PRN TP MUSCLE PAIN; Start 02/12/18 at 22:30; Status Cancel Sodium Chloride ([place]) 1 inch HS OD Last administered on 02/25/18at 20:06; Start 02/13/18 at 21:00 Sorbitol (Sorbitol Solution) 1 ml PRN DAILY PRN PO CONSTIPATION; Start at 22:30; Status Cancel Amlodipine Besylate (Norvasc) 5 mg DAILY PO Last administered on 02/19/18at 13: 30; Start 02/13/18 at 09:00; Stop 02/19/18 at 17:00; Status DC Vitamin D (Vitamin D3) 50,000 unit WEEKLY PO ; Start 02/19/18 at 09:00; Stop at 09:00; Status DC Non-Formulary Medication (Mag Hydrox/ Aluminum Hyd/ Simeth (Maalox Advanced Suspension)) 15 ml PRN AFTMEALHC PRN PO DYSPEPSIA; Start 02/12/18 at 22:30; Stop 02/12/18 at 22:41; Status DC Non-Formulary Medication (Magnesium Hydroxide (Milk Of Magnesia)) 2,400 mg PRN DAILY PRN PO CONSTIPATION; Start 02/12/18 at 22:30; Stop 02/12/18 at 22:41; Status DC Polyethylene Glycol (miraLAX) 17 gm DAILY PO Last administered on 02/18/18at 09: 15; Start 02/13/18 at 09:00; Stop 02/25/18 at 14:01; Status DC Artificial Tears (Refresh Classic) 1 drop TID OU Last administered on at 21:17; Start 02/13/18 at 09:00; Stop 02/25/18 at 14:01; Status DC Non-Formulary Medication (Sodium Chloride ([place]mer-128)) 1 drop HS OD ; Start 02/13 at 21:00; Stop 02/13/18 at 21:00; Status DC Levothyroxine Sodium (Synthroid) 75 mcg DAILY06 PO Last administered on at 12:17; Start 02/14/18 at 06:00 Sorbitol (Sorbitol Solution) 30 ml PRN DAILY PRN PO CONSTIPATION; Start at 11:00 Estradiol (Estrace) 1 speedy QMTH VG Last administered on 02/16/18at 20:02; Start 02/16/18 at 21:00 Info (FLU VACCINE per PROTOCOL) 1 ea PRN 1X PRN MC PER PROTOCOL; Start at 09:00; Status UNV Risperidone (RisperDAL) 1.5 mg QHS PO Last administered on 02/21/18at 19:26; Start 02/14/18 at 21:00; Stop 02/21/18 at 23:54; Status DC Bupropion HCl (Wellbutrin Xl) 150 mg DAILY PO Last administered on 02/19/18at 13 :30; Start 02/15/18 at 09:00; Stop 02/19/18 at 16:58; Status DC Quetiapine Fumarate (SEROquel) 25 mg QHS PO Last administered on 02/17/18at 20: 28; Start 02/15/18 at 21:00; Stop 02/19/18 at 11:29; Status DC Hydroxyzine HCl (Atarax) 10 mg PRN Q2HR PRN PO anxiety Last administered on 02/23/18at 21:17; Start 02/16/18 at 16:30 Benztropine Mesylate (Cogentin) 0.5 mg DAILY PO Last administered on at 12:17; Start 02/18/18 at 09:00 Mirtazapine (Remeron) 7.5 mg QHS PO Last administered on 02/22/18at 17:16; Start 02/17/18 at 21:00; Stop 02/23/18 at 16:10; Status DC Trazodone HCl (Desyrel) 50 mg PRN QHS PRN PO SEE ADMIN INSTRUCTIONS; Start 02/17/18 at 16:45; Stop 02/19/18 at 11:29; Status DC Trazodone HCl (Desyrel) 100 mg QHS PO ; Start 02/19/18 at 21:00; Stop 02/19/18 at 21:00; Status DC Trazodone HCl (Desyrel) 100 mg PRN QHS PRN PO SEE ADMIN INSTRUCTIONS; Start at 11:30 Trazodone HCl (Desyrel) 100 mg QHS PO Last administered on 02/28/18at 19:53; Start 02/19/18 at 21:00; Stop 03/01/18 at 07:19; Status DC Amlodipine Besylate (Norvasc) 10 mg DAILY PO Last administered on 03/01/18 12 :17; Start 02/20/18 at 09:00 Amlodipine Besylate (Norvasc) 5 mg 1X ONCE PO Last administered on 02/19/18 17:11; Start 02/19/18 at 17:00; Stop 02/19/18 at 17:06; Status DC Atorvastatin Calcium (Lipitor) 20 mg DAILYWSUP PO Last administered on at 17:09; Start 02/22/18 at 17:00 Carbamazepine (TEGretol) 300 mg BIDWMEALS PO ; Start 02/22/18 at 17:00; Stop at 17:00; Status DC Lactobacillus Rhamnosus (Culturelle) 1 cap BIDWMEALS PO Last administered on at 07:38; Start 02/22/18 at 08:00; Stop 02/28/18 at 17:12; Status DC Risperidone (RisperDAL) 1.5 mg DAILYWSUP PO Last administered on 03/01/18at 16: 35; Start 02/22/18 at 17:00; Stop 03/01/18 at 18:37; Status DC Carbamazepine (TEGretol) 300 mg BIDWMEALS PO Last administered on 02/24/18at 17: 26; Start 02/22/18 at 08:00; Stop 02/25/18 at 09:39; Status DC Mirtazapine (Remeron) 15 mg QHS PO Last administered on 03/01/18at 16:35; Start 02/23/18 at 17:00 Divalproex Sodium (Depakote Er) 500 mg QHS PO Last administered on 02/28/18 19:53; Start 02/25/18 at 21:00; Stop 03/01/18 at 07:19; Status DC Polyethylene Glycol (miraLAX) 17 gm PRN DAILY PRN PO CONSTIPATION; Start 02/25 at 14:00 Artificial Tears (Refresh Classic) 1 drop PRN TID PRN OU DRY EYE; Start at 14:00 Clozapine (Clozaril) 25 mg QHS PO Last administered on 02/28/18at 19:52; Start 02/25/18 at 21:00; Stop 03/01/18 at 07:19; Status DC Clozapine (Clozaril) 25 mg DAILY@1700 PO Last administered on 03/01/18at 16:34 ; Start 03/01/18 at 17:00 Divalproex Sodium (Depakote Er) 500 mg DAILY@1700 PO Last administered on 03/01at 16:35; Start 03/01/18 at 17:00 Trazodone HCl (Desyrel) 100 mg DAILY@1700 PO Last administered on 03/01/18at 16 :35; Start 03/01/18 at 17:00 Risperidone (RisperDAL [place]) 25 mg Q2WKS IM ; Start 03/02/18 at 09:00 Risperidone (RisperDAL) 1.5 mg DAILYWSUP SL ; Start 03/02/18 at 17:00 Active Scripts Active Reported Sorbitol (Sorbitol Solution) 1 Ml Solution 30 Ml PO PRN DAILY PRN Trazodone Hcl 50 Mg Tablet 50 Mg PO QHS Tegretol (Carbamazepine) 200 Mg Tablet 150 Mg PO BID Risperidone 1 Mg Tablet 1 Mg PO QHS Norvasc (Amlodipine Besylate) 5 Mg Tablet 5 Mg PO DAILY [place]-128 (Sodium Chloride) 3.5 Gm Oint...g. 1 Speedy OP HS Miralax (Polyethylene Glycol 3350) 17 Gm Powd.pack 17 Gm PO DAILY Milk Of Magnesia (Magnesium Hydroxide) 2,400 Mg/10 Ml Oral.susp 30 Ml PO PRN DAILY PRN [place] Carbonate 450 Mg Tablet.er 450 Mg PO HS [place] Carbonate 150 Mg Capsule 300 Mg PO DAILY Lipitor (Atorvastatin Calcium) 20 Mg Tablet 20 Mg PO QHS Levothyroxine Sodium 75 Mcg Tablet 75 Mcg PO DAILYAC Estrace (Estradiol) 42.5 Gm Cream.appl 1 Speedy VG 2X WEEK Q MON, THURS Vitamin D2 (Ergocalciferol (Vitamin D2)) 50,000 Unit Capsule 50,000 Unit PO WEEKLY Endocet 10-325 Mg Tablet (Oxycodone Hcl/Acetaminophen) 1 Each Tablet 1 Each PO PRN Q6HRS PRN Vitamin B-12 (Cyanocobalamin (Vitamin B-12)) 1,000 Mcg Tablet 1,000 Mcg PO DAILY Benztropine Mesylate 0.5 Mg Tablet 0.5 Mg PO BID Tylenol (Acetaminophen) 325 Mg Tablet 650 Mg PO PRN Q6HRS PRN Maalox Advanced Suspension (Mag Hydrox/Aluminum Hyd/Simeth) 355 Ml Oral.susp 15 Ml PO PRN AFTMEALHC PRN Analgesic [place] (Methyl Salicylate/Menthol) 28 Gm Oint...g. 1 Speedy TP PRN QID PRN [place] Carbonate 300 Mg Capsule 450 Mg PO QHS Benztropine Mesylate 0.5 Mg Tablet 0.5 Mg PO QHS Risperidone 1 Mg Tablet 1.5 Mg PO QHS Refresh Classic Eye Drops (Polyvinyl Alcohol/Povidone/Pf) 1 Each Droperette 1 Each OU TID Culturelle (Lactobacillus Rhamnosus Gg) 1 Each Cap.sprink 1 Each PO BID Trazodone Hcl 50 Mg Tablet 50 Mg PO PRN QHS PRN Trazodone Hcl 50 Mg Tablet 50 Mg PO HS Tegretol (Carbamazepine) 200 Mg Tablet 300 Mg PO BID Norvasc (Amlodipine Besylate) 5 Mg Tablet 5 Mg PO DAILY Elmer-128 (Sodium Chloride) 15 Ml Drops 1 Drop OD HS Miralax (Polyethylene Glycol 3350) 17 Gm Powd.pack 17 Gm PO DAILY Milk Of Magnesia (Magnesium Hydroxide) 2,400 Mg/10 Ml Oral.susp 2,400 Mg PO PRN DAILY PRN [place] Carbonate 300 Mg Tablet 300 Mg PO DAILY Lipitor (Atorvastatin Calcium) 20 Mg Tablet 20 Mg PO QHS Levothyroxine Sodium 75 Mcg Tablet 75 Mcg PO DAILYAC Estrace (Estradiol) 42.5 Gm Cream.appl 1 Gm VG HS QMON/ Insert at bedtime on Friday and Vitamin D2 (Ergocalciferol (Vitamin D2)) 50,000 Unit Capsule 50,000 Unit PO WEEKLY Endocet 10-325 Mg Tablet (Oxycodone Hcl/Acetaminophen) 1 Each Tablet 1 Tab PO PRN Q6HRS PRN Tylenol (Acetaminophen) 325 Mg Tablet 650 Mg PO PRN Q6HRS PRN I have reviewed the current psychotropics carefully including drug interactions. Risk benefit ratio favors no change other than as noted in my dictated progress note. 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
[2018-03-01] MEDS: SODIUM CHLORIDE 5% OPHTH OINTMENT 3.5GM TUBE. OD SCH (21:00)
--- NOTE | 2018-03-02 03:40 | PN ---
DATE: 02/28/2018 This is a late entry for 02/28/2018 covers elements not covered in my initial note. SUBJECTIVE: I met with the patient in the evening. The patient slept 7-3/4 hours previous night, refused a.m. medications. Her visited her and she reluctantly took her evening meds from him. She remains psychotic, withdrawn. Oral intake poor. REVIEW OF SYSTEMS: No CV, , pulmonary, eye, ENT system symptoms on review, not very verbal as I sat with her at some length in her room. MENTAL STATUS EXAM: Oriented to herself. Insight, judgment, recent and remote memory, attention, concentration, fund of knowledge poor, consistent with her diagnosis mentioned in my initial note. PLAN: Continue Clozaril, Risperdal, trazodone, Depakote. We will await a valproic acid level, adjust to reach therapeutic levels, CBC, absolute neutrophil count on 03/02/2018, on the Clozaril, may need to increase it thereafter. Rest unchanged. MAN Rox WATT MD DR: SANCHEZ/fredrick JOB#: [id number] / [id number]
[2018-03-02 06:35] VITALS: BP 142/99
[2018-03-02 06:38] LABS: BASO % 1 % (0-3); EOS # 0.2 x10^3/uL (0.0-0.7); EOS % 4 % (0-3); HEMATOCRIT 39.1 % (36.0-47.0); HEMOGLOBIN 13.3 g/dL (12.0-15.5); LYMPH # 1.4 x10^3/uL (1.0-4.8); LYMPH % 30 % (24-48); MEAN CORPUSCULAR HEMOGLOBIN 31 pg (25-35); MEAN CORPUSCULAR HGB CONC 34 g/dL (31-37); MEAN CORPUSCULAR VOLUME 90 fL (79-100); MONO # 0.6 x10^3/uL (0.0-1.1); MONO % 12 % (0-9); NEUT # 2.5 x10^3uL (1.8-7.7); NEUT % 53 % (31-73); PLATELET COUNT 215 x10^3/uL (140-400); RED BLOOD COUNT 4.36 x10^6/uL (3.50-5.40); RED CELL DISTRIBUTION WIDTH 12.6 % (11.5-14.5); WHITE BLOOD COUNT 4.8 x10^3/uL (4.0-11.0)
[2018-03-02 07:19] LABS: ALBUMIN 3.2 g/dL (3.4-5.0); ALBUMIN/GLOBULIN RATIO 0.8 (1.0-1.7); CREATININE 0.8 mg/dL (0.6-1.0); GFR 71.3; POTASSIUM 4.6 mmol/L (3.5-5.1); TOTAL BILIRUBIN 0.2 mg/dL (0.2-1.0)
[2018-03-02] MEDS ORDERED: risperiDONE MICROSPHERES 25 MG/2 ML DISP.SYRIN. IM SCH (09:00)
[2018-03-02] MEDS: CYANOCOBALAMIN (VITAMIN B-12) 1,000 MCG TABLET. PO SCH (09:00)
[2018-03-02] MEDS ORDERED: NYSTATIN TOPICAL POWDER 15GM BOTTLE. TP PRN (10:30)
[2018-03-02] MEDS ORDERED: CLOTRIMAZOLE 1% TP PRN (10:30)
[2018-03-02] MEDS: LEVOTHYROXINE 75 MCG TABLET PO SCH (10:35)
[2018-03-02] MEDS: BENZTROPINE MESYLATE 0.5 MG TABLET PO SCH (10:35)
[2018-03-02] MEDS: amLODIPine BESYLATE 10 MG TABLET PO SCH (10:35)
[2018-03-02] MEDS: ESTRADIOL 0.01% VAGINAL CREAM 42.5GM TUBE. VG SCH (16:00)
[2018-03-02 16:20] VITALS: BP 151/98
[2018-03-02] MEDS ORDERED: risperiDONE ORAL 1 MG/ML 30ml BOTTLE. SL SCH (17:00)
[2018-03-02] MEDS: cloZAPine 25 MG TABLET PO SCH (17:07)
[2018-03-02] MEDS: DIVALPROEX ER 500 MG TAB.ER.24H PO SCH (17:07)
[2018-03-02] MEDS: MIRTAZAPINE 15 MG TABLET PO SCH (17:07)
[2018-03-02] MEDS: traZODone 100 MG TABLET. PO SCH (17:07)
[2018-03-02] MEDS: ATORVASTATIN CALCIUM 20 MG TABLET PO SCH (17:16)
[2018-03-02] MEDS: risperiDONE 1 MG TABLET. PO SCH (18:20)
[2018-03-02 19:54] LABS: BASO % 1 % (0-3); EOS # 0.2 x10^3/uL (0.0-0.7); EOS % 2 % (0-3); HEMATOCRIT 40.9 % (36.0-47.0); HEMOGLOBIN 13.7 g/dL (12.0-15.5); LYMPH # 1.9 x10^3/uL (1.0-4.8); LYMPH % 29 % (24-48); MEAN CORPUSCULAR HEMOGLOBIN 30 pg (25-35); MEAN CORPUSCULAR HGB CONC 34 g/dL (31-37); MEAN CORPUSCULAR VOLUME 90 fL (79-100); MONO # 0.8 x10^3/uL (0.0-1.1); MONO % 12 % (0-9); NEUT # 3.8 x10^3uL (1.8-7.7); NEUT % 56 % (31-73); PLATELET COUNT 221 x10^3/uL (140-400); RED BLOOD COUNT 4.52 x10^6/uL (3.50-5.40); RED CELL DISTRIBUTION WIDTH 12.9 % (11.5-14.5); WHITE BLOOD COUNT 6.7 x10^3/uL (4.0-11.0)
[2018-03-02] MEDS: SODIUM CHLORIDE 5% OPHTH OINTMENT 3.5GM TUBE. OD SCH (20:53)
--- NOTE | 2018-03-02 23:02 | PN ---
DATE: 03/01/2018 PSYCHIATRIC PROGRESS NOTE This late entry 03/01/2018 covers elements not covered in my initial note. SUBJECTIVE: I met with the patient in the evening. The patient slept 8 hours previous night. The patient remains quite withdrawn, refused medications even the tried for a long period of time. We will change the Risperdal to liquid to assist with compliance. I met with her in her room. REVIEW OF SYSTEMS: No CV, , eye, ENT or pulmonary system symptoms on review. She is not very verbally interactive. Slept 8 hours. MENTAL STATUS EXAM: Oriented to herself. Insight, judgment, recent and remote memory, attention, concentration, fund of knowledge poor, consistent with her diagnosis mentioned in my initial note. IMPRESSION: Schizoaffective disorder, bipolar type, mixed with psychotic features; cognitive disorder, unspecified. PLAN: The nursing staff noted that the patient's significant noncompliance with her psychotropics. We will start her on Risperdal Consta 25 mg IM every 2 weeks and once we are able to get the Clozaril to a decent dosage, we will discontinue the Risperdal. Follow CBC, ANC 03/02/2018. Adjust Clozaril thereafter. Maintain rest unchanged. MAN Rox WATT MD DR: SANCHEZ/fredrick JOB#: [id number] / [id number]
[2018-03-03] MEDS: LEVOTHYROXINE 75 MCG TABLET PO SCH (06:06)
[2018-03-03] MEDS: CYANOCOBALAMIN (VITAMIN B-12) 1,000 MCG TABLET. PO SCH ×2 (08:05→10:25)
[2018-03-03] MEDS: amLODIPine BESYLATE 10 MG TABLET PO SCH ×2 (08:06→10:25)
[2018-03-03] MEDS: BENZTROPINE MESYLATE 0.5 MG TABLET PO SCH ×2 (08:06→10:25)
[2018-03-03] MEDS: risperiDONE MICROSPHERES 25 MG/2 ML DISP.SYRIN. IM SCH (13:31)
[2018-03-03 16:34] VITALS: BP 167/91
[2018-03-03] MEDS: MIRTAZAPINE 15 MG TABLET PO SCH (17:11)
[2018-03-03] MEDS: ATORVASTATIN CALCIUM 20 MG TABLET PO SCH (17:12)
[2018-03-03] MEDS: cloZAPine 25 MG TABLET PO SCH (17:12)
[2018-03-03] MEDS: DIVALPROEX ER 500 MG TAB.ER.24H PO SCH (17:13)
[2018-03-03] MEDS: traZODone 100 MG TABLET. PO SCH (17:13)
[2018-03-03] MEDS: risperiDONE 1 MG TABLET. PO SCH (17:13)
[2018-03-03] MEDS: SODIUM CHLORIDE 5% OPHTH OINTMENT 3.5GM TUBE. OD SCH (20:00)
--- NOTE | 2018-03-03 23:18 | PDOC ---
Exam Note: Julian Note: Please also refer to the separate dictated note~for this date of service dictated separately.~Patient seen individually. Discussed the patient with Nursing staff reviewed the chart.~Reviewed interim history and current functioning. Reviewed vital signs,~Labs/ Radiology~and current medications noted below. Continue current treatment with the changes noted in the dictated addendum note Assessment: Vital Signs: Vital Signs Date Time Temp Pulse Resp B/P (MAP) Pulse Ox O2 Delivery O2 Flow Rate FiO2 03/03/18 16:34 98.3 84 20 167/91 (116) 97 02/27/18 15:48 Room Air I&O Intake and Output 03/03/18 07:00 Intake Total 460 ml Balance 460 ml Intake Oral 460 ml Current Medications: Meds: Current Medications Acetaminophen (Tylenol) 650 mg PRN Q6HRS PRN PO PAIN / TEMP; Start 02/12/18 at 21:45 Multi-Ingredient Ointment (Analgesic [place]) 1 speedy PRN QID PRN TP MUSCLE PAIN; Start 02/12/18 at 21:45 Al Hydroxide/Mg Hydroxide (Mylanta Plus Xs) 15 ml PRN AFTMEALHC PRN PO DYSPEPSIA; Start 02/12/18 at 21:45 Magnesium Hydroxide (Milk Of Magnesia) 2,400 mg PRN QHS PRN PO CONSTIPATION; Start 02/12/18 at 21:45 Carbamazepine (TEGretol) 150 mg BID PO ; Start 02/13/18 at 09:00; Stop 02/13/18 at 09:00; Status DC Carbamazepine (TEGretol) 300 mg BID PO Last administered on 02/21/18at 19:29; Start 02/13/18 at 09:00; Stop 02/21/18 at 23:54; Status DC Oxycodone/ Acetaminophen (Percocet 10/325) 1 tab PRN Q6HRS PRN PO PAIN Last administered on 02/23/18at 21:17; Start 02/12/18 at 22:30 Oxycodone/ Acetaminophen (Percocet 10/325) 1 tab PRN Q6HRS PRN PO PAIN; Start 02/12/18 at 22:30; Stop 02/12/18 at 22:40; Status DC Benztropine Mesylate (Cogentin) 0.5 mg BID PO Last administered on 02/17/18at 07 :25; Start 02/13/18 at 09:00; Stop 02/17/18 at 16:35; Status DC [place] Carbonate 300 mg DAILY PO Last administered on 02/18/18at 09:14; Start 02/13/18 at 09:00; Stop 02/19/18 at 11:29; Status DC [place] Carbonate 450 mg QHS PO Last administered on 02/17/18at 20:24; Start at 21:00; Stop 02/19/18 at 11:44; Status DC Risperidone (RisperDAL) 1 mg QHS PO Last administered on 02/13/18at 19:52; Start 02/13/18 at 21:00; Stop 02/14/18 at 19:16; Status DC Trazodone HCl (Desyrel) 50 mg QHS PO Last administered on 02/17/18at 20:24; Start 02/13/18 at 21:00; Stop 02/19/18 at 11:29; Status DC Acetaminophen (Tylenol) 650 mg PRN Q6HRS PRN PO PAIN / TEMP; Start 02/12/18 at 22:30; Stop 02/12/18 at 22:32; Status DC Atorvastatin Calcium (Lipitor) 20 mg QHS PO Last administered on 02/20/18at 20: 28; Start 02/13/18 at 21:00; Stop 02/21/18 at 23:54; Status DC Cyanocobalamin (Vitamin B-12) 1,000 mcg DAILY PO Last administered on at 08:08; Start 02/13/18 at 09:00 Estradiol (Estrace) 1 speedy HS VG ; Start 02/13/18 at 21:00; Stop 02/14/18 at 00: 47; Status DC Lactobacillus Rhamnosus (Culturelle) 1 cap BID PO Last administered on at 20:28; Start 02/13/18 at 09:00; Stop 02/21/18 at 23:54; Status DC Levothyroxine Sodium (Synthroid) 75 mcg DAILYAC PO Last administered on at 09:42; Start 02/13/18 at 07:30; Stop 02/13/18 at 11:19; Status DC Multi-Ingredient Ointment (Analgesic [place]) 1 speedy PRN QID PRN TP MUSCLE PAIN; Start 02/12/18 at 22:30; Status Cancel Sodium Chloride ([place]) 1 inch HS OD Last administered on 03/02/18at 20:53; Start 02/13/18 at 21:00 Sorbitol (Sorbitol Solution) 1 ml PRN DAILY PRN PO CONSTIPATION; Start at 22:30; Status Cancel Amlodipine Besylate (Norvasc) 5 mg DAILY PO Last administered on 02/19/18at 13: 30; Start 02/13/18 at 09:00; Stop 02/19/18 at 17:00; Status DC Vitamin D (Vitamin D3) 50,000 unit WEEKLY PO ; Start 02/19/18 at 09:00; Stop at 09:00; Status DC Non-Formulary Medication (Mag Hydrox/ Aluminum Hyd/ Simeth (Maalox Advanced Suspension)) 15 ml PRN AFTMEALHC PRN PO DYSPEPSIA; Start 02/12/18 at 22:30; Stop 02/12/18 at 22:41; Status DC Non-Formulary Medication (Magnesium Hydroxide (Milk Of Magnesia)) 2,400 mg PRN DAILY PRN PO CONSTIPATION; Start 02/12/18 at 22:30; Stop 02/12/18 at 22:41; Status DC Polyethylene Glycol (miraLAX) 17 gm DAILY PO Last administered on 02/18/18at 09: 15; Start 02/13/18 at 09:00; Stop 02/25/18 at 14:01; Status DC Artificial Tears (Refresh Classic) 1 drop TID OU Last administered on at 21:17; Start 02/13/18 at 09:00; Stop 02/25/18 at 14:01; Status DC Non-Formulary Medication (Sodium Chloride ([place]-128)) 1 drop HS OD ; Start 02/13 at 21:00; Stop 02/13/18 at 21:00; Status DC Levothyroxine Sodium (Synthroid) 75 mcg DAILY06 PO Last administered on at 06:06; Start 02/14/18 at 06:00 Sorbitol (Sorbitol Solution) 30 ml PRN DAILY PRN PO CONSTIPATION; Start at 11:00 Estradiol (Estrace) 1 speedy QMTH VG Last administered on 02/16/18at 20:02; Start 02/16/18 at 21:00 Info (FLU VACCINE per PROTOCOL) 1 ea PRN 1X PRN MC PER PROTOCOL; Start at 09:00; Status UNV Risperidone (RisperDAL) 1.5 mg QHS PO Last administered on 02/21/18at 19:26; Start 02/14/18 at 21:00; Stop 02/21/18 at 23:54; Status DC Bupropion HCl (Wellbutrin Xl) 150 mg DAILY PO Last administered on 02/19/18at 13 :30; Start 02/15/18 at 09:00; Stop 02/19/18 at 16:58; Status DC Quetiapine Fumarate (SEROquel) 25 mg QHS PO Last administered on 02/17/18at 20: 28; Start 02/15/18 at 21:00; Stop 02/19/18 at 11:29; Status DC Hydroxyzine HCl (Atarax) 10 mg PRN Q2HR PRN PO anxiety Last administered on 02/23/18at 21:17; Start 02/16/18 at 16:30 Benztropine Mesylate (Cogentin) 0.5 mg DAILY PO Last administered on at 10:35; Start 02/18/18 at 09:00 Mirtazapine (Remeron) 7.5 mg QHS PO Last administered on 02/22/18at 17:16; Start 02/17/18 at 21:00; Stop 02/23/18 at 16:10; Status DC Trazodone HCl (Desyrel) 50 mg PRN QHS PRN PO SEE ADMIN INSTRUCTIONS; Start 02/17/18 at 16:45; Stop 02/19/18 at 11:29; Status DC Trazodone HCl (Desyrel) 100 mg QHS PO ; Start 02/19/18 at 21:00; Stop 02/19/18 at 21:00; Status DC Trazodone HCl (Desyrel) 100 mg PRN QHS PRN PO SEE ADMIN INSTRUCTIONS; Start at 11:30 Trazodone HCl (Desyrel) 100 mg QHS PO Last administered on 02/28/18at 19:53; Start 02/19/18 at 21:00; Stop 03/01/18 at 07:19; Status DC Amlodipine Besylate (Norvasc) 10 mg DAILY PO Last administered on 03/02/18at 10 :35; Start 02/20/18 at 09:00 Amlodipine Besylate (Norvasc) 5 mg 1X ONCE PO Last administered on 02/19/18at 17:11; Start 02/19/18 at 17:00; Stop 02/19/18 at 17:06; Status DC Atorvastatin Calcium (Lipitor) 20 mg DAILYWSUP PO Last administered on at 17:12; Start 02/22/18 at 17:00 Carbamazepine (TEGretol) 300 mg BIDWMEALS PO ; Start 02/22/18 at 17:00; Stop at 17:00; Status DC Lactobacillus Rhamnosus (Culturelle) 1 cap BIDWMEALS PO Last administered on at 07:38; Start 02/22/18 at 08:00; Stop 02/28/18 at 17:12; Status DC Risperidone (RisperDAL) 1.5 mg DAILYWSUP PO Last administered on 03/01/18at 16: 35; Start 02/22/18 at 17:00; Stop 03/01/18 at 18:37; Status DC Carbamazepine (TEGretol) 300 mg BIDWMEALS PO Last administered on 02/24/18at 17: 26; Start 02/22/18 at 08:00; Stop 02/25/18 at 09:39; Status DC Mirtazapine (Remeron) 15 mg QHS PO Last administered on 03/02/18 17:07; Start 02/23/18 at 17:00; Stop 03/02/18 at 17:12; Status DC Divalproex Sodium (Depakote Er) 500 mg QHS PO Last administered on 02/28/18at 19:53; Start 02/25/18 at 21:00; Stop 03/01/18 at 07:19; Status DC Polyethylene Glycol (miraLAX) 17 gm PRN DAILY PRN PO CONSTIPATION; Start 02/25 at 14:00 Artificial Tears (Refresh Classic) 1 drop PRN TID PRN OU DRY EYE; Start at 14:00 Clozapine (Clozaril) 25 mg QHS PO Last administered on 02/28/18at 19:52; Start 02/25/18 at 21:00; Stop 03/01/18 at 07:19; Status DC Clozapine (Clozaril) 25 mg DAILY@1700 PO Last administered on 03/02/18at 17:07 ; Start 03/01/18 at 17:00; Stop 03/02/18 at 22:35; Status DC Divalproex Sodium (Depakote Er) 500 mg DAILY@1700 PO Last administered on 03/03at 17:13; Start 03/01/18 at 17:00 Trazodone HCl (Desyrel) 100 mg DAILY@1700 PO Last administered on 03/03/18at 17 :13; Start 03/01/18 at 17:00 Risperidone (RisperDAL CONSTA) 25 mg Q2WKS IM ; Start 03/02/18 at 09:00; Stop 03/02/18 at 09:00; Status DC Risperidone (RisperDAL) 1.5 mg DAILYWSUP SL Last administered on 03/02/18at 17: 14; Start 03/02/18 at 17:00; Stop 03/02/18 at 18:13; Status DC Risperidone (RisperDAL CONSTA) 25 mg Q2WKS IM Last administered on 03/03/18at 13:31; Start 03/03/18 at 09:00 Clotrimazole (Lotrimin Af) 1 speedy PRN BID PRN TP itching; Start 03/02/18 at 10: 30 Nystatin (Nystop) 1 speedy PRN BID PRN TP YEAST INFECTION; Start 03/02/18 at 10: 30 Mirtazapine (Remeron) 15 mg DAILYWSUP PO Last administered on 03/03/18at 17:11 ; Start 03/03/18 at 17:00 Risperidone (RisperDAL) 1.5 mg DAILYWSUP PO Last administered on 03/03/18at 17: 13; Start 03/02/18 at 18:15 Clozapine (Clozaril) 50 mg DAILY@1700 PO Last administered on 03/03/18at 17:12 ; Start 03/03/18 at 17:00 Active Scripts Active Reported Sorbitol (Sorbitol Solution) 1 Ml Solution 30 Ml PO PRN DAILY PRN Trazodone Hcl 50 Mg Tablet 50 Mg PO QHS Tegretol (Carbamazepine) 200 Mg Tablet 150 Mg PO BID Risperidone 1 Mg Tablet 1 Mg PO QHS Norvasc (Amlodipine Besylate) 5 Mg Tablet 5 Mg PO DAILY [place]-128 (Sodium Chloride) 3.5 Gm Oint...g. 1 Speedy OP HS Miralax (Polyethylene Glycol 3350) 17 Gm Powd.pack 17 Gm PO DAILY Milk Of Magnesia (Magnesium Hydroxide) 2,400 Mg/10 Ml Oral.susp 30 Ml PO PRN DAILY PRN [place] Carbonate 450 Mg Tablet.er 450 Mg PO HS [place] Carbonate 150 Mg Capsule 300 Mg PO DAILY Lipitor (Atorvastatin Calcium) 20 Mg Tablet 20 Mg PO QHS Levothyroxine Sodium 75 Mcg Tablet 75 Mcg PO DAILYAC Estrace (Estradiol) 42.5 Gm Cream.appl 1 Speedy VG 2X WEEK Q FRI, URS Vitamin D2 (Ergocalciferol (Vitamin D2)) 50,000 Unit Capsule 50,000 Unit PO WEEKLY Endocet 10-325 Mg Tablet (Oxycodone Hcl/Acetaminophen) 1 Each Tablet 1 Each PO PRN Q6HRS PRN Vitamin B-12 (Cyanocobalamin (Vitamin B-12)) 1,000 Mcg Tablet 1,000 Mcg PO DAILY Benztropine Mesylate 0.5 Mg Tablet 0.5 Mg PO BID Tylenol (Acetaminophen) 325 Mg Tablet 650 Mg PO PRN Q6HRS PRN Maalox Advanced Suspension (Mag Hydrox/Aluminum Hyd/Simeth) 355 Ml Oral.susp 15 Ml PO PRN AFTMEALHC PRN Analgesic [place] (Methyl Salicylate/Menthol) 28 Gm Oint...g. 1 Speedy TP PRN QID PRN [place] Carbonate 300 Mg Capsule 450 Mg PO QHS Benztropine Mesylate 0.5 Mg Tablet 0.5 Mg PO QHS Risperidone 1 Mg Tablet 1.5 Mg PO QHS Refresh Classic Eye Drops (Polyvinyl Alcohol/Povidone/Pf) 1 Each Droperette 1 Each OU TID Culturelle (Lactobacillus Rhamnosus Gg) 1 Each Cap.sprink 1 Each PO BID Trazodone Hcl 50 Mg Tablet 50 Mg PO PRN QHS PRN Trazodone Hcl 50 Mg Tablet 50 Mg PO HS Tegretol (Carbamazepine) 200 Mg Tablet 300 Mg PO BID Norvasc (Amlodipine Besylate) 5 Mg Tablet 5 Mg PO DAILY [place]-128 (Sodium Chloride) 15 Ml Drops 1 Drop OD HS Miralax (Polyethylene Glycol 3350) 17 Gm Powd.pack 17 Gm PO DAILY Milk Of Magnesia (Magnesium Hydroxide) 2,400 Mg/10 Ml Oral.susp 2,400 Mg PO PRN DAILY PRN [place] Carbonate 300 Mg Tablet 300 Mg PO DAILY Lipitor (Atorvastatin Calcium) 20 Mg Tablet 20 Mg PO QHS Levothyroxine Sodium 75 Mcg Tablet 75 Mcg PO DAILYAC Estrace (Estradiol) 42.5 Gm Cream.appl 1 Gm VG HS QMON/ Insert at bedtime on Friday and Vitamin D2 (Ergocalciferol (Vitamin D2)) 50,000 Unit Capsule 50,000 Unit PO WEEKLY Endocet 10-325 Mg Tablet (Oxycodone Hcl/Acetaminophen) 1 Each Tablet 1 Tab PO PRN Q6HRS PRN Tylenol (Acetaminophen) 325 Mg Tablet 650 Mg PO PRN Q6HRS PRN I have reviewed the current psychotropics carefully including drug interactions. Risk benefit ratio favors no change other than as noted in my dictated progress note. 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
--- NOTE | 2018-03-04 05:06 | PN ---
DATE: 03/02/2018 This is a late entry for 03/02/2018 covers elements not covered in my initial note. SUBJECTIVE: I met with the patient in the evening. The patient slept 6 hours previous night. She took her meds from nursing staff, but was visiting her at suppertime and I met with her . He was trying to administer her liquid Risperdal when she was just not taking it at all. We will change back to tablets as the feels she is more amiable to taking the tablets. She threw herself on the floor in the morning, somewhat agitated, intermittently psychotic, easily frustrated. REVIEW OF SYSTEMS: No CV, , pulmonary, eye, ENT system symptoms on review. Reliability poor. MENTAL STATUS EXAM: Oriented to herself and situation. Speech, often responses monosyllabic. Abstraction fair, computation impaired, language function intact, attention span short. Mood and affect somewhat withdrawn, still quite psychotic. LABORATORY DATA: CBC, absolute neutrophil count unremarkable. IMPRESSION: Schizoaffective disorder, bipolar type, mixed with psychotic features, cognitive disorder, unspecified. PLAN: Continue Risperdal Consta 25 mg q. 2 weeks, Risperdal oral 1.5 mg a day, Clozaril increase from 25 at bedtime to 50 at bedtime. Rest unchanged from initial note. Depakote ER 500 mg at bedtime. Adjust further as clinically indicated. MAN Rox WATT MD DR: SANCHEZ/fredrick JOB#: [id number] / [id number]
[2018-03-04 06:05] VITALS: BP 108/56
[2018-03-04] MEDS: LEVOTHYROXINE 75 MCG TABLET PO SCH (06:36)
[2018-03-04] MEDS: amLODIPine BESYLATE 10 MG TABLET PO SCH ×2 (08:09→10:30)
[2018-03-04] MEDS: BENZTROPINE MESYLATE 0.5 MG TABLET PO SCH ×2 (08:10→10:30)
[2018-03-04] MEDS: CYANOCOBALAMIN (VITAMIN B-12) 1,000 MCG TABLET. PO SCH ×2 (08:10→10:30)
[2018-03-04] MEDS: ATORVASTATIN CALCIUM 20 MG TABLET PO SCH (17:04)
[2018-03-04] MEDS: DIVALPROEX ER 500 MG TAB.ER.24H PO SCH (17:04)
[2018-03-04] MEDS: risperiDONE 1 MG TABLET. PO SCH (17:05)
[2018-03-04] MEDS: traZODone 100 MG TABLET. PO SCH (17:05)
[2018-03-04] MEDS: cloZAPine 25 MG TABLET PO SCH (17:05)
[2018-03-04] MEDS: MIRTAZAPINE 15 MG TABLET PO SCH (17:05)
[2018-03-04] MEDS: SODIUM CHLORIDE 5% OPHTH OINTMENT 3.5GM TUBE. OD SCH (21:00)
--- NOTE | 2018-03-04 23:10 | PN ---
DATE: 03/03/2018 PSYCHIATRIC PROGRESS NOTE This late entry 03/03/2018 covers elements not covered in my initial note. SUBJECTIVE: I met with the patient in the evening. I also met with the patient's and discussed with nursing safely. The patient slept herself on the floor earlier in the day and at breakfast time, she threw her food on to the floor, changed her medications. She has been withdrawn to her room, refused the Cogentin and did get the Risperdal Consta, repeat injection on 03/03/2018. Not very verbal. Discussed the patient's progress, current psychotropics with the at some length. REVIEW OF SYSTEMS: No CV, , pulmonary, eye, ENT system symptoms on review. MENTAL STATUS EXAM: Oriented to herself and situation. Speech, moderate latency, often responses monosyllabic. Abstraction fair, computation impaired, language function intact. Attention span short. She remains psychotic. Mood and affect remain somewhat withdrawn, anxious. LABORATORY DATA: Reviewed. IMPRESSION: Schizoaffective disorder, bipolar type, mixed with psychotic features; cognitive disorder, unspecified. Rest unchanged. PLAN: Continue psychotropics from initial note, gradually. Continue to increase the Clozaril, further changes depending on her progress. KIERSTEN WATT MD DR: SACNHEZ/fredrick JOB#: [id number] / [id number]
--- NOTE | 2018-03-04 23:23 | PDOC ---
Exam Note: Julian Note: Please also refer to the separate dictated note~for this date of service dictated separately.~Patient seen individually. Discussed the patient with Nursing staff reviewed the chart.~Reviewed interim history and current functioning. Reviewed vital signs,~Labs/ Radiology~and current medications noted below. Continue current treatment with the changes noted in the dictated addendum note Assessment: Vital Signs: Vital Signs Date Time Temp Pulse Resp B/P (MAP) Pulse Ox O2 Delivery O2 Flow Rate FiO2 03/04/18 16:32 97.8 129 24 92 03/04/18 06:05 108/56 (73) 02/27/18 15:48 Room Air I&O Intake and Output 03/04/18 07:00 Intake Total 1200 ml Balance 1200 ml Intake Oral 1200 ml Current Medications: Meds: Current Medications Acetaminophen (Tylenol) 650 mg PRN Q6HRS PRN PO PAIN / TEMP; Start 02/12/18 at 21:45 Multi-Ingredient Ointment (Analgesic Olga) 1 speedy PRN QID PRN TP MUSCLE PAIN; Start 02/12/18 at 21:45 Al Hydroxide/Mg Hydroxide (Mylanta Plus Xs) 15 ml PRN AFTMEALHC PRN PO DYSPEPSIA; Start 02/12/18 at 21:45 Magnesium Hydroxide (Milk Of Magnesia) 2,400 mg PRN QHS PRN PO CONSTIPATION; Start 02/12/18 at 21:45 Carbamazepine (TEGretol) 150 mg BID PO ; Start 02/13/18 at 09:00; Stop 02/13/18 at 09:00; Status DC Carbamazepine (TEGretol) 300 mg BID PO Last administered on 02/21/18at 19:29; Start 02/13/18 at 09:00; Stop 02/21/18 at 23:54; Status DC Oxycodone/ Acetaminophen (Percocet 10/325) 1 tab PRN Q6HRS PRN PO PAIN Last administered on 02/23/18at 21:17; Start 02/12/18 at 22:30 Oxycodone/ Acetaminophen (Percocet 10/325) 1 tab PRN Q6HRS PRN PO PAIN; Start 02/12/18 at 22:30; Stop 02/12/18 at 22:40; Status DC Benztropine Mesylate (Cogentin) 0.5 mg BID PO Last administered on 02/17/18at 07 :25; Start 02/13/18 at 09:00; Stop 02/17/18 at 16:35; Status DC Philomath Carbonate 300 mg DAILY PO Last administered on 02/18/18at 09:14; Start 02/13/18 at 09:00; Stop 02/19/18 at 11:29; Status DC Philomath Carbonate 450 mg QHS PO Last administered on 02/17/18at 20:24; Start at 21:00; Stop 02/19/18 at 11:44; Status DC Risperidone (RisperDAL) 1 mg QHS PO Last administered on 02/13/18at 19:52; Start 02/13/18 at 21:00; Stop 02/14/18 at 19:16; Status DC Trazodone HCl (Desyrel) 50 mg QHS PO Last administered on 02/17/18at 20:24; Start 02/13/18 at 21:00; Stop 02/19/18 at 11:29; Status DC Acetaminophen (Tylenol) 650 mg PRN Q6HRS PRN PO PAIN / TEMP; Start 02/12/18 at 22:30; Stop 02/12/18 at 22:32; Status DC Atorvastatin Calcium (Lipitor) 20 mg QHS PO Last administered on 02/20/18at 20: 28; Start 02/13/18 at 21:00; Stop 02/21/18 at 23:54; Status DC Cyanocobalamin (Vitamin B-12) 1,000 mcg DAILY PO Last administered on at 08:08; Start 02/13/18 at 09:00 Estradiol (Estrace) 1 speedy HS VG ; Start 02/13/18 at 21:00; Stop 02/14/18 at 00: 47; Status DC Lactobacillus Rhamnosus (Culturelle) 1 cap BID PO Last administered on at 20:28; Start 02/13/18 at 09:00; Stop 02/21/18 at 23:54; Status DC Levothyroxine Sodium (Synthroid) 75 mcg DAILYAC PO Last administered on at 09:42; Start 02/13/18 at 07:30; Stop 02/13/18 at 11:19; Status DC Multi-Ingredient Ointment (Analgesic Olga) 1 speedy PRN QID PRN TP MUSCLE PAIN; Start 02/12/18 at 22:30; Status Cancel Sodium Chloride (Elmer) 1 inch HS OD Last administered on 03/02/18at 20:53; Start 02/13/18 at 21:00 Sorbitol (Sorbitol Solution) 1 ml PRN DAILY PRN PO CONSTIPATION; Start at 22:30; Status Cancel Amlodipine Besylate (Norvasc) 5 mg DAILY PO Last administered on 02/19/18at 13: 30; Start 02/13/18 at 09:00; Stop 02/19/18 at 17:00; Status DC Vitamin D (Vitamin D3) 50,000 unit WEEKLY PO ; Start 02/19/18 at 09:00; Stop at 09:00; Status DC Non-Formulary Medication (Mag Hydrox/ Aluminum Hyd/ Simeth (Maalox Advanced Suspension)) 15 ml PRN AFTMEALHC PRN PO DYSPEPSIA; Start 02/12/18 at 22:30; Stop 02/12/18 at 22:41; Status DC Non-Formulary Medication (Magnesium Hydroxide (Milk Of Magnesia)) 2,400 mg PRN DAILY PRN PO CONSTIPATION; Start 02/12/18 at 22:30; Stop 02/12/18 at 22:41; Status DC Polyethylene Glycol (miraLAX) 17 gm DAILY PO Last administered on 02/18/18at 09: 15; Start 02/13/18 at 09:00; Stop 02/25/18 at 14:01; Status DC Artificial Tears (Refresh Classic) 1 drop TID OU Last administered on at 21:17; Start 02/13/18 at 09:00; Stop 02/25/18 at 14:01; Status DC Non-Formulary Medication (Sodium Chloride (Elmer-128)) 1 drop HS OD ; Start 02/13 at 21:00; Stop 02/13/18 at 21:00; Status DC Levothyroxine Sodium (Synthroid) 75 mcg DAILY06 PO Last administered on at 06:36; Start 02/14/18 at 06:00 Sorbitol (Sorbitol Solution) 30 ml PRN DAILY PRN PO CONSTIPATION; Start at 11:00 Estradiol (Estrace) 1 speedy QMTH VG Last administered on 02/16/18at 20:02; Start 02/16/18 at 21:00 Info (FLU VACCINE per PROTOCOL) 1 ea PRN 1X PRN MC PER PROTOCOL; Start at 09:00; Status UNV Risperidone (RisperDAL) 1.5 mg QHS PO Last administered on 02/21/18at 19:26; Start 02/14/18 at 21:00; Stop 02/21/18 at 23:54; Status DC Bupropion HCl (Wellbutrin Xl) 150 mg DAILY PO Last administered on 02/19/18at 13 :30; Start 02/15/18 at 09:00; Stop 02/19/18 at 16:58; Status DC Quetiapine Fumarate (SEROquel) 25 mg QHS PO Last administered on 02/17/18at 20: 28; Start 02/15/18 at 21:00; Stop 02/19/18 at 11:29; Status DC Hydroxyzine HCl (Atarax) 10 mg PRN Q2HR PRN PO anxiety Last administered on 02/23/18at 21:17; Start 02/16/18 at 16:30 Benztropine Mesylate (Cogentin) 0.5 mg DAILY PO Last administered on at 10:35; Start 02/18/18 at 09:00; Stop 03/04/18 at 18:50; Status DC Mirtazapine (Remeron) 7.5 mg QHS PO Last administered on 02/22/18at 17:16; Start 02/17/18 at 21:00; Stop 02/23/18 at 16:10; Status DC Trazodone HCl (Desyrel) 50 mg PRN QHS PRN PO SEE ADMIN INSTRUCTIONS; Start 02/17/18 at 16:45; Stop 02/19/18 at 11:29; Status DC Trazodone HCl (Desyrel) 100 mg QHS PO ; Start 02/19/18 at 21:00; Stop 02/19/18 at 21:00; Status DC Trazodone HCl (Desyrel) 100 mg PRN QHS PRN PO SEE ADMIN INSTRUCTIONS; Start at 11:30 Trazodone HCl (Desyrel) 100 mg QHS PO Last administered on 02/28/18at 19:53; Start 02/19/18 at 21:00; Stop 03/01/18 at 07:19; Status DC Amlodipine Besylate (Norvasc) 10 mg DAILY PO Last administered on 03/02/18at 10 :35; Start 02/20/18 at 09:00 Amlodipine Besylate (Norvasc) 5 mg 1X ONCE PO Last administered on 02/19/18at 17:11; Start 02/19/18 at 17:00; Stop 02/19/18 at 17:06; Status DC Atorvastatin Calcium (Lipitor) 20 mg DAILYWSUP PO Last administered on at 17:04; Start 02/22/18 at 17:00 Carbamazepine (TEGretol) 300 mg BIDWMEALS PO ; Start 02/22/18 at 17:00; Stop at 17:00; Status DC Lactobacillus Rhamnosus (Culturelle) 1 cap BIDWMEALS PO Last administered on at 07:38; Start 02/22/18 at 08:00; Stop 02/28/18 at 17:12; Status DC Risperidone (RisperDAL) 1.5 mg DAILYWSUP PO Last administered on 03/01/18at 16: 35; Start 02/22/18 at 17:00; Stop 03/01/18 at 18:37; Status DC Carbamazepine (TEGretol) 300 mg BIDWMEALS PO Last administered on 02/24/18at 17: 26; Start 02/22/18 at 08:00; Stop 02/25/18 at 09:39; Status DC Mirtazapine (Remeron) 15 mg QHS PO Last administered on 03/02/18at 17:07; Start 02/23/18 at 17:00; Stop 03/02/18 at 17:12; Status DC Divalproex Sodium (Depakote Er) 500 mg QHS PO Last administered on 02/28/18at 19:53; Start 02/25/18 at 21:00; Stop 03/01/18 at 07:19; Status DC Polyethylene Glycol (miraLAX) 17 gm PRN DAILY PRN PO CONSTIPATION; Start 02/25 at 14:00 Artificial Tears (Refresh Classic) 1 drop PRN TID PRN OU DRY EYE; Start at 14:00 Clozapine (Clozaril) 25 mg QHS PO Last administered on 02/28/18at 19:52; Start 02/25/18 at 21:00; Stop 03/01/18 at 07:19; Status DC Clozapine (Clozaril) 25 mg DAILY@1700 PO Last administered on 03/02/18at 17:07 ; Start 03/01/18 at 17:00; Stop 03/02/18 at 22:35; Status DC Divalproex Sodium (Depakote Er) 500 mg DAILY@1700 PO Last administered on 03/04at 17:04; Start 03/01/18 at 17:00 Trazodone HCl (Desyrel) 100 mg DAILY@1700 PO Last administered on 03/04/18at 17 :05; Start 03/01/18 at 17:00 Risperidone (RisperDAL CONSTA) 25 mg Q2WKS IM ; Start 03/02/18 at 09:00; Stop 03/02/18 at 09:00; Status DC Risperidone (RisperDAL) 1.5 mg DAILYWSUP SL Last administered on 03/02/18at 17: 14; Start 03/02/18 at 17:00; Stop 03/02/18 at 18:13; Status DC Risperidone (RisperDAL CONSTA) 25 mg Q2WKS IM Last administered on 03/03/18at 13:31; Start 03/03/18 at 09:00 Clotrimazole (Lotrimin Af) 1 speedy PRN BID PRN TP itching; Start 03/02/18 at 10: 30 Nystatin (Nystop) 1 speedy PRN BID PRN TP YEAST INFECTION; Start 03/02/18 at 10: 30 Mirtazapine (Remeron) 15 mg DAILYWSUP PO Last administered on 03/04/18at 17:05 ; Start 03/03/18 at 17:00 Risperidone (RisperDAL) 1.5 mg DAILYWSUP PO Last administered on 03/04/18at 17: 05; Start 03/02/18 at 18:15 Clozapine (Clozaril) 50 mg DAILY@1700 PO Last administered on 03/04/18at 17:05 ; Start 03/03/18 at 17:00 Active Scripts Active Reported Sorbitol (Sorbitol Solution) 1 Ml Solution 30 Ml PO PRN DAILY PRN Trazodone Hcl 50 Mg Tablet 50 Mg PO QHS Tegretol (Carbamazepine) 200 Mg Tablet 150 Mg PO BID Risperidone 1 Mg Tablet 1 Mg PO QHS Norvasc (Amlodipine Besylate) 5 Mg Tablet 5 Mg PO DAILY Elmer-128 (Sodium Chloride) 3.5 Gm Oint...g. 1 Speedy OP HS Miralax (Polyethylene Glycol 3350) 17 Gm Powd.pack 17 Gm PO DAILY Milk Of Magnesia (Magnesium Hydroxide) 2,400 Mg/10 Ml Oral.susp 30 Ml PO PRN DAILY PRN Philomath Carbonate 450 Mg Tablet.er 450 Mg PO HS Philomath Carbonate 150 Mg Capsule 300 Mg PO DAILY Lipitor (Atorvastatin Calcium) 20 Mg Tablet 20 Mg PO QHS Levothyroxine Sodium 75 Mcg Tablet 75 Mcg PO DAILYAC Estrace (Estradiol) 42.5 Gm Cream.appl 1 Speedy VG 2X WEEK Q FRI, Vitamin D2 (Ergocalciferol (Vitamin D2)) 50,000 Unit Capsule 50,000 Unit PO WEEKLY Endocet 10-325 Mg Tablet (Oxycodone Hcl/Acetaminophen) 1 Each Tablet 1 Each PO PRN Q6HRS PRN Vitamin B-12 (Cyanocobalamin (Vitamin B-12)) 1,000 Mcg Tablet 1,000 Mcg PO DAILY Benztropine Mesylate 0.5 Mg Tablet 0.5 Mg PO BID Tylenol (Acetaminophen) 325 Mg Tablet 650 Mg PO PRN Q6HRS PRN Maalox Advanced Suspension (Mag Hydrox/Aluminum Hyd/Simeth) 355 Ml Oral.susp 15 Ml PO PRN AFTMEALHC PRN Analgesic Olga (Methyl Salicylate/Menthol) 28 Gm Oint...g. 1 Speedy TP PRN QID PRN Philomath Carbonate 300 Mg Capsule 450 Mg PO QHS Benztropine Mesylate 0.5 Mg Tablet 0.5 Mg PO QHS Risperidone 1 Mg Tablet 1.5 Mg PO QHS Refresh Classic Eye Drops (Polyvinyl Alcohol/Povidone/Pf) 1 Each Droperette 1 Each OU TID Culturelle (Lactobacillus Rhamnosus Gg) 1 Each Cap.sprink 1 Each PO BID Trazodone Hcl 50 Mg Tablet 50 Mg PO PRN QHS PRN Trazodone Hcl 50 Mg Tablet 50 Mg PO HS Tegretol (Carbamazepine) 200 Mg Tablet 300 Mg PO BID Norvasc (Amlodipine Besylate) 5 Mg Tablet 5 Mg PO DAILY Elmer-128 (Sodium Chloride) 15 Ml Drops 1 Drop OD HS Miralax (Polyethylene Glycol 3350) 17 Gm Powd.pack 17 Gm PO DAILY Milk Of Magnesia (Magnesium Hydroxide) 2,400 Mg/10 Ml Oral.susp 2,400 Mg PO PRN DAILY PRN Phil[place]ath Carbonate 300 Mg Tablet 300 Mg PO DAILY Lipitor (Atorvastatin Calcium) 20 Mg Tablet 20 Mg PO QHS Levothyroxine Sodium 75 Mcg Tablet 75 Mcg PO DAILYAC Estrace (Estradiol) 42.5 Gm Cream.appl 1 Gm VG HS QMON/ Insert at bedtime on Friday and Vitamin D2 (Ergocalciferol (Vitamin D2)) 50,000 Unit Capsule 50,000 Unit PO WEEKLY Endocet 10-325 Mg Tablet (Oxycodone Hcl/Acetaminophen) 1 Each Tablet 1 Tab PO PRN Q6HRS PRN Tylenol (Acetaminophen) 325 Mg Tablet 650 Mg PO PRN Q6HRS PRN I have reviewed the current psychotropics carefully including drug interactions. Risk benefit ratio favors no change other than as noted in my dictated progress note. 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
[2018-03-05] MEDS: LEVOTHYROXINE 75 MCG TABLET PO SCH ×2 (06:00→06:16)
[2018-03-05] MEDS: amLODIPine BESYLATE 10 MG TABLET PO SCH (08:58)
[2018-03-05] MEDS: CYANOCOBALAMIN (VITAMIN B-12) 1,000 MCG TABLET. PO SCH (08:58)
[2018-03-05 16:11] VITALS: BP 174/84
[2018-03-05] MEDS: risperiDONE 1 MG TABLET. PO SCH (16:23)
[2018-03-05] MEDS: MIRTAZAPINE 15 MG TABLET PO SCH (16:24)
[2018-03-05] MEDS: DIVALPROEX ER 500 MG TAB.ER.24H PO SCH (16:24)
[2018-03-05] MEDS: ATORVASTATIN CALCIUM 20 MG TABLET PO SCH (16:24)
[2018-03-05] MEDS: cloZAPine 25 MG TABLET PO SCH (16:25)
[2018-03-05] MEDS: traZODone 100 MG TABLET. PO SCH (16:25)
[2018-03-05] MEDS: ESTRADIOL 0.01% VAGINAL CREAM 42.5GM TUBE. VG SCH (16:26)
[2018-03-05] MEDS: SODIUM CHLORIDE 5% OPHTH OINTMENT 3.5GM TUBE. OD SCH (20:49)
--- NOTE | 2018-03-05 23:29 | PN ---
DATE: 03/04/2018 PSYCHIATRIC PROGRESS NOTE This late entry 03/04/2018 covers elements not covered in my initial note. SUBJECTIVE: I met with the patient in the evening and also met with the patient's , who was visiting with her in the evening. The patient slept 7-1/4 hours previous night. She has been refusing her medications, remains paranoid, not very verbal. She did take her Synthroid per nursing report, refused her vital signs, anxious. REVIEW OF SYSTEMS: No CV, , pulmonary, eye, ENT system symptoms on review. MENTAL STATUS EXAM: Oriented to herself. Insight, judgment, recent and remote memory, attention, concentration, fund of knowledge poor, consistent with her diagnosis. She is not very responsive to questioning about orientation and memory functions difficult to assess this. She had lengthy discussion with the about her current psychotropics changes be made, plans for further changes. LABORATORY DATA: Reviewed. IMPRESSION: Bipolar 1 disorder, mixed with psychotic features; cognitive disorder, unspecified. PLAN: We will go ahead and stop the Cogentin 0.5 mg daily. Continue with Risperdal 1.5 mg daily, Risperdal may gradually be tapered once the Clozaril, which is a therapeutic level, which is currently at 50 mg a day, Remeron 15 mg in the evening, Depakote ER 500 mg in the evening. Repeat CT head showed no change from prior CT head. The valproic acid level is low due to noncompliance with diet. We would prefer not to increase it just yet until we can have some consistency in her taking her psychotropics. The mainstay of her psychotropics is going to be Clozaril as we reach a better dosage, which is therapeutic. MAN Rox WATT MD DR: SANCHEZ/fredrick JOB#: [id number] / [id number]
--- NOTE | 2018-03-05 23:40 | PDOC ---
Exam Note: Julian Note: Please also refer to the separate dictated note~for this date of service dictated separately.~Patient seen individually. Discussed the patient with Nursing staff reviewed the chart.~Reviewed interim history and current functioning. Reviewed vital signs,~Labs/ Radiology~and current medications noted below. Continue current treatment with the changes noted in the dictated addendum note Assessment: Vital Signs: Vital Signs Date Time Temp Pulse Resp B/P (MAP) Pulse Ox O2 Delivery O2 Flow Rate FiO2 03/05/18 16:11 97.8 60 20 174/84 (114) 92 02/27/18 15:48 Room Air I&O Intake and Output 03/05/18 07:00 Intake Total 1180 ml Balance 1180 ml Intake Oral 1180 ml Current Medications: Meds: Current Medications Acetaminophen (Tylenol) 650 mg PRN Q6HRS PRN PO PAIN / TEMP; Start 02/12/18 at 21:45 Multi-Ingredient Ointment (Analgesic [place]) 1 speedy PRN QID PRN TP MUSCLE PAIN; Start 02/12/18 at 21:45 Al Hydroxide/Mg Hydroxide (Mylanta Plus Xs) 15 ml PRN AFTMEALHC PRN PO DYSPEPSIA; Start 02/12/18 at 21:45 Magnesium Hydroxide (Milk Of Magnesia) 2,400 mg PRN QHS PRN PO CONSTIPATION; Start 02/12/18 at 21:45 Carbamazepine (TEGretol) 150 mg BID PO ; Start 02/13/18 at 09:00; Stop 02/13/18 at 09:00; Status DC Carbamazepine (TEGretol) 300 mg BID PO Last administered on 02/21/18at 19:29; Start 02/13/18 at 09:00; Stop 02/21/18 at 23:54; Status DC Oxycodone/ Acetaminophen (Percocet 10/325) 1 tab PRN Q6HRS PRN PO PAIN Last administered on 02/23/18at 21:17; Start 02/12/18 at 22:30 Oxycodone/ Acetaminophen (Percocet 10/325) 1 tab PRN Q6HRS PRN PO PAIN; Start 02/12/18 at 22:30; Stop 02/12/18 at 22:40; Status DC Benztropine Mesylate (Cogentin) 0.5 mg BID PO Last administered on 02/17/18 07 :25; Start 02/13/18 at 09:00; Stop 02/17/18 at 16:35; Status DC [place] Carbonate 300 mg DAILY PO Last administered on 02/18/18at 09:14; Start 02/13/18 at 09:00; Stop 02/19/18 at 11:29; Status DC [place] Carbonate 450 mg QHS PO Last administered on 02/17/18at 20:24; Start at 21:00; Stop 02/19/18 at 11:44; Status DC Risperidone (RisperDAL) 1 mg QHS PO Last administered on 02/13/18at 19:52; Start 02/13/18 at 21:00; Stop 02/14/18 at 19:16; Status DC Trazodone HCl (Desyrel) 50 mg QHS PO Last administered on 02/17/18at 20:24; Start 02/13/18 at 21:00; Stop 02/19/18 at 11:29; Status DC Acetaminophen (Tylenol) 650 mg PRN Q6HRS PRN PO PAIN / TEMP; Start 02/12/18 at 22:30; Stop 02/12/18 at 22:32; Status DC Atorvastatin Calcium (Lipitor) 20 mg QHS PO Last administered on 02/20/18at 20: 28; Start 02/13/18 at 21:00; Stop 02/21/18 at 23:54; Status DC Cyanocobalamin (Vitamin B-12) 1,000 mcg DAILY PO Last administered on at 08:08; Start 02/13/18 at 09:00 Estradiol (Estrace) 1 speedy HS VG ; Start 02/13/18 at 21:00; Stop 02/14/18 at 00: 47; Status DC Lactobacillus Rhamnosus (Culturelle) 1 cap BID PO Last administered on at 20:28; Start 02/13/18 at 09:00; Stop 02/21/18 at 23:54; Status DC Levothyroxine Sodium (Synthroid) 75 mcg DAILYAC PO Last administered on at 09:42; Start 02/13/18 at 07:30; Stop 02/13/18 at 11:19; Status DC Multi-Ingredient Ointment (Analgesic [place]) 1 speedy PRN QID PRN TP MUSCLE PAIN; Start 02/12/18 at 22:30; Status Cancel Sodium Chloride (Elemr) 1 inch HS OD Last administered on 03/02/18at 20:53; Start 02/13/18 at 21:00 Sorbitol (Sorbitol Solution) 1 ml PRN DAILY PRN PO CONSTIPATION; Start at 22:30; Status Cancel Amlodipine Besylate (Norvasc) 5 mg DAILY PO Last administered on 02/19/18at 13: 30; Start 02/13/18 at 09:00; Stop 02/19/18 at 17:00; Status DC Vitamin D (Vitamin D3) 50,000 unit WEEKLY PO ; Start 02/19/18 at 09:00; Stop at 09:00; Status DC Non-Formulary Medication (Mag Hydrox/ Aluminum Hyd/ Simeth (Maalox Advanced Suspension)) 15 ml PRN AFTMEALHC PRN PO DYSPEPSIA; Start 02/12/18 at 22:30; Stop 02/12/18 at 22:41; Status DC Non-Formulary Medication (Magnesium Hydroxide (Milk Of Magnesia)) 2,400 mg PRN DAILY PRN PO CONSTIPATION; Start 02/12/18 at 22:30; Stop 02/12/18 at 22:41; Status DC Polyethylene Glycol (miraLAX) 17 gm DAILY PO Last administered on 02/18/18at 09: 15; Start 02/13/18 at 09:00; Stop 02/25/18 at 14:01; Status DC Artificial Tears (Refresh Classic) 1 drop TID OU Last administered on at 21:17; Start 02/13/18 at 09:00; Stop 02/25/18 at 14:01; Status DC Non-Formulary Medication (Sodium Chloride (Elmer-128)) 1 drop HS OD ; Start 02/13 at 21:00; Stop 02/13/18 at 21:00; Status DC Levothyroxine Sodium (Synthroid) 75 mcg DAILY06 PO Last administered on at 06:36; Start 02/14/18 at 06:00 Sorbitol (Sorbitol Solution) 30 ml PRN DAILY PRN PO CONSTIPATION; Start at 11:00 Estradiol (Estrace) 1 speedy QMTH VG Last administered on 03/05/18at 16:26; Start 02/16/18 at 21:00 Info (FLU VACCINE per PROTOCOL) 1 ea PRN 1X PRN MC PER PROTOCOL; Start at 09:00; Status UNV Risperidone (RisperDAL) 1.5 mg QHS PO Last administered on 02/21/18at 19:26; Start 02/14/18 at 21:00; Stop 02/21/18 at 23:54; Status DC Bupropion HCl (Wellbutrin Xl) 150 mg DAILY PO Last administered on 02/19/18at 13 :30; Start 02/15/18 at 09:00; Stop 02/19/18 at 16:58; Status DC Quetiapine Fumarate (SEROquel) 25 mg QHS PO Last administered on 02/17/18at 20: 28; Start 02/15/18 at 21:00; Stop 02/19/18 at 11:29; Status DC Hydroxyzine HCl (Atarax) 10 mg PRN Q2HR PRN PO anxiety Last administered on 02/23/18at 21:17; Start 02/16/18 at 16:30 Benztropine Mesylate (Cogentin) 0.5 mg DAILY PO Last administered on at 10:35; Start 02/18/18 at 09:00; Stop 03/04/18 at 18:50; Status DC Mirtazapine (Remeron) 7.5 mg QHS PO Last administered on 02/22/18at 17:16; Start 02/17/18 at 21:00; Stop 02/23/18 at 16:10; Status DC Trazodone HCl (Desyrel) 50 mg PRN QHS PRN PO SEE ADMIN INSTRUCTIONS; Start 02/17/18 at 16:45; Stop 02/19/18 at 11:29; Status DC Trazodone HCl (Desyrel) 100 mg QHS PO ; Start 02/19/18 at 21:00; Stop 02/19/18 at 21:00; Status DC Trazodone HCl (Desyrel) 100 mg PRN QHS PRN PO SEE ADMIN INSTRUCTIONS; Start at 11:30 Trazodone HCl (Desyrel) 100 mg QHS PO Last administered on 02/28/18at 19:53; Start 02/19/18 at 21:00; Stop 03/01/18 at 07:19; Status DC Amlodipine Besylate (Norvasc) 10 mg DAILY PO Last administered on 03/02/18at 10 :35; Start 02/20/18 at 09:00 Amlodipine Besylate (Norvasc) 5 mg 1X ONCE PO Last administered on 02/19/18at 17:11; Start 02/19/18 at 17:00; Stop 02/19/18 at 17:06; Status DC Atorvastatin Calcium (Lipitor) 20 mg DAILYWSUP PO Last administered on at 16:24; Start 02/22/18 at 17:00 Carbamazepine (TEGretol) 300 mg BIDWMEALS PO ; Start 02/22/18 at 17:00; Stop at 17:00; Status DC Lactobacillus Rhamnosus (Culturelle) 1 cap BIDWMEALS PO Last administered on at 07:38; Start 02/22/18 at 08:00; Stop 02/28/18 at 17:12; Status DC Risperidone (RisperDAL) 1.5 mg DAILYWSUP PO Last administered on 03/01/18at 16: 35; Start 02/22/18 at 17:00; Stop 03/01/18 at 18:37; Status DC Carbamazepine (TEGretol) 300 mg BIDWMEALS PO Last administered on 02/24/18at 17: 26; Start 02/22/18 at 08:00; Stop 02/25/18 at 09:39; Status DC Mirtazapine (Remeron) 15 mg QHS PO Last administered on 03/02/18at 17:07; Start 02/23/18 at 17:00; Stop 03/02/18 at 17:12; Status DC Divalproex Sodium (Depakote Er) 500 mg QHS PO Last administered on 02/28/18at 19:53; Start 02/25/18 at 21:00; Stop 03/01/18 at 07:19; Status DC Polyethylene Glycol (miraLAX) 17 gm PRN DAILY PRN PO CONSTIPATION; Start 02/25 at 14:00 Artificial Tears (Refresh Classic) 1 drop PRN TID PRN OU DRY EYE; Start at 14:00 Clozapine (Clozaril) 25 mg QHS PO Last administered on 02/28/18at 19:52; Start 02/25/18 at 21:00; Stop 03/01/18 at 07:19; Status DC Clozapine (Clozaril) 25 mg DAILY@1700 PO Last administered on 03/02/18at 17:07 ; Start 03/01/18 at 17:00; Stop 03/02/18 at 22:35; Status DC Divalproex Sodium (Depakote Er) 500 mg DAILY@1700 PO Last administered on 03/05at 16:24; Start 03/01/18 at 17:00 Trazodone HCl (Desyrel) 100 mg DAILY@1700 PO Last administered on 03/05/18at 16 :25; Start 03/01/18 at 17:00 Risperidone (RisperDAL CONSTA) 25 mg Q2WKS IM ; Start 03/02/18 at 09:00; Stop 03/02/18 at 09:00; Status DC Risperidone (RisperDAL) 1.5 mg DAILYWSUP SL Last administered on 03/02/18at 17: 14; Start 03/02/18 at 17:00; Stop 03/02/18 at 18:13; Status DC Risperidone (RisperDAL CONSTA) 25 mg Q2WKS IM Last administered on 03/03/18at 13:31; Start 03/03/18 at 09:00 Clotrimazole (Lotrimin Af) 1 speedy PRN BID PRN TP itching; Start 03/02/18 at 10: 30 Nystatin (Nystop) 1 speedy PRN BID PRN TP YEAST INFECTION; Start 03/02/18 at 10: 30 Mirtazapine (Remeron) 15 mg DAILYWSUP PO Last administered on 03/05/18at 16:24 ; Start 03/03/18 at 17:00 Risperidone (RisperDAL) 1.5 mg DAILYWSUP PO Last administered on 03/05/18at 16: 23; Start 03/02/18 at 18:15 Clozapine (Clozaril) 50 mg DAILY@1700 PO Last administered on 03/05/18at 16:25 ; Start 03/03/18 at 17:00 Active Scripts Active Reported Sorbitol (Sorbitol Solution) 1 Ml Solution 30 Ml PO PRN DAILY PRN Trazodone Hcl 50 Mg Tablet 50 Mg PO QHS Tegretol (Carbamazepine) 200 Mg Tablet 150 Mg PO BID Risperidone 1 Mg Tablet 1 Mg PO QHS Norvasc (Amlodipine Besylate) 5 Mg Tablet 5 Mg PO DAILY [place]-128 (Sodium Chloride) 3.5 Gm Oint...g. 1 Speedy OP HS Miralax (Polyethylene Glycol 3350) 17 Gm Powd.pack 17 Gm PO DAILY Milk Of Magnesia (Magnesium Hydroxide) 2,400 Mg/10 Ml Oral.susp 30 Ml PO PRN DAILY PRN [place] Carbonate 450 Mg Tablet.er 450 Mg PO HS [place] Carbonate 150 Mg Capsule 300 Mg PO DAILY Lipitor (Atorvastatin Calcium) 20 Mg Tablet 20 Mg PO QHS Levothyroxine Sodium 75 Mcg Tablet 75 Mcg PO DAILYAC Estrace (Estradiol) 42.5 Gm Cream.appl 1 Speedy VG 2X WEEK Q FRI, THURS Vitamin D2 (Ergocalciferol (Vitamin D2)) 50,000 Unit Capsule 50,000 Unit PO WEEKLY Endocet 10-325 Mg Tablet (Oxycodone Hcl/Acetaminophen) 1 Each Tablet 1 Each PO PRN Q6HRS PRN Vitamin B-12 (Cyanocobalamin (Vitamin B-12)) 1,000 Mcg Tablet 1,000 Mcg PO DAILY Benztropine Mesylate 0.5 Mg Tablet 0.5 Mg PO BID Tylenol (Acetaminophen) 325 Mg Tablet 650 Mg PO PRN Q6HRS PRN Maalox Advanced Suspension (Mag Hydrox/Aluminum Hyd/Simeth) 355 Ml Oral.susp 15 Ml PO PRN AFTMEALHC PRN Analgesic [place] (Methyl Salicylate/Menthol) 28 Gm Oint...g. 1 Speedy TP PRN QID PRN [place] Carbonate 300 Mg Capsule 450 Mg PO QHS Benztropine Mesylate 0.5 Mg Tablet 0.5 Mg PO QHS Risperidone 1 Mg Tablet 1.5 Mg PO QHS Refresh Classic Eye Drops (Polyvinyl Alcohol/Povidone/Pf) 1 Each Droperette 1 Each OU TID Culturelle (Lactobacillus Rhamnosus Gg) 1 Each Cap.sprink 1 Each PO BID Trazodone Hcl 50 Mg Tablet 50 Mg PO PRN QHS PRN Trazodone Hcl 50 Mg Tablet 50 Mg PO HS Tegretol (Carbamazepine) 200 Mg Tablet 300 Mg PO BID Norvasc (Amlodipine Besylate) 5 Mg Tablet 5 Mg PO DAILY [place]-128 (Sodium Chloride) 15 Ml Drops 1 Drop OD HS Miralax (Polyethylene Glycol 3350) 17 Gm Powd.pack 17 Gm PO DAILY Milk Of Magnesia (Magnesium Hydroxide) 2,400 Mg/10 Ml Oral.susp 2,400 Mg PO PRN DAILY PRN [place] Carbonate 300 Mg Tablet 300 Mg PO DAILY Lipitor (Atorvastatin Calcium) 20 Mg Tablet 20 Mg PO QHS Levothyroxine Sodium 75 Mcg Tablet 75 Mcg PO DAILYAC Estrace (Estradiol) 42.5 Gm Cream.appl 1 Gm VG HS QMON/ Insert at bedtime on Friday and Vitamin D2 (Ergocalciferol (Vitamin D2)) 50,000 Unit Capsule 50,000 Unit PO WEEKLY Endocet 10-325 Mg Tablet (Oxycodone Hcl/Acetaminophen) 1 Each Tablet 1 Tab PO PRN Q6HRS PRN Tylenol (Acetaminophen) 325 Mg Tablet 650 Mg PO PRN Q6HRS PRN I have reviewed the current psychotropics carefully including drug interactions. Risk benefit ratio favors no change other than as noted in my dictated progress note. 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
[2018-03-06] MEDS: LEVOTHYROXINE 75 MCG TABLET PO SCH ×2 (06:00→07:49)
[2018-03-06 06:25] VITALS: BP 148/94
[2018-03-06] MEDS: amLODIPine BESYLATE 10 MG TABLET PO SCH (07:49)
[2018-03-06] MEDS: CYANOCOBALAMIN (VITAMIN B-12) 1,000 MCG TABLET. PO SCH (07:49)
[2018-03-06 15:55] VITALS: BP 154/94
[2018-03-06] MEDS: ATORVASTATIN CALCIUM 20 MG TABLET PO SCH (17:00)
[2018-03-06] MEDS: DIVALPROEX ER 500 MG TAB.ER.24H PO SCH (18:01)
[2018-03-06] MEDS: MIRTAZAPINE 15 MG TABLET PO SCH (18:01)
[2018-03-06] MEDS: risperiDONE 1 MG TABLET. PO SCH (18:02)
[2018-03-06] MEDS: traZODone 100 MG TABLET. PO SCH (18:02)
[2018-03-06] MEDS: cloZAPine 25 MG TABLET PO SCH (18:02)
[2018-03-06] MEDS: SODIUM CHLORIDE 5% OPHTH OINTMENT 3.5GM TUBE. OD SCH (20:13)
--- NOTE | 2018-03-06 23:23 | PDOC ---
Exam Note: Julian Note: Please also refer to the separate dictated note~for this date of service dictated separately.~Patient seen individually. Discussed the patient with Nursing staff reviewed the chart.~Reviewed interim history and current functioning. Reviewed vital signs,~Labs/ Radiology~and current medications noted below. Continue current treatment with the changes noted in the dictated addendum note Assessment: Vital Signs: Vital Signs Date Time Temp Pulse Resp B/P (MAP) Pulse Ox O2 Delivery O2 Flow Rate FiO2 03/06/18 15:55 98.0 94 22 154/94 (114) 95 Room Air I&O Intake and Output 03/06/18 07:00 Intake Total 480 ml Balance 480 ml Intake Oral 480 ml Current Medications: Meds: Current Medications Acetaminophen (Tylenol) 650 mg PRN Q6HRS PRN PO PAIN / TEMP; Start 02/12/18 at 21:45 Multi-Ingredient Ointment (Analgesic [place]) 1 speedy PRN QID PRN TP MUSCLE PAIN; Start 02/12/18 at 21:45 Al Hydroxide/Mg Hydroxide (Mylanta Plus Xs) 15 ml PRN AFTMEALHC PRN PO DYSPEPSIA; Start 02/12/18 at 21:45 Magnesium Hydroxide (Milk Of Magnesia) 2,400 mg PRN QHS PRN PO CONSTIPATION; Start 02/12/18 at 21:45 Carbamazepine (TEGretol) 150 mg BID PO ; Start 02/13/18 at 09:00; Stop 02/13/18 at 09:00; Status DC Carbamazepine (TEGretol) 300 mg BID PO Last administered on 02/21/18at 19:29; Start 02/13/18 at 09:00; Stop 02/21/18 at 23:54; Status DC Oxycodone/ Acetaminophen (Percocet 10/325) 1 tab PRN Q6HRS PRN PO PAIN Last administered on 02/23/18at 21:17; Start 02/12/18 at 22:30 Oxycodone/ Acetaminophen (Percocet 10/325) 1 tab PRN Q6HRS PRN PO PAIN; Start 02/12/18 at 22:30; Stop 02/12/18 at 22:40; Status DC Benztropine Mesylate (Cogentin) 0.5 mg BID PO Last administered on 02/17/18at 07 :25; Start 02/13/18 at 09:00; Stop 02/17/18 at 16:35; Status DC [place] Carbonate 300 mg DAILY PO Last administered on 02/18/18at 09:14; Start 02/13/18 at 09:00; Stop 02/19/18 at 11:29; Status DC [place] Carbonate 450 mg QHS PO Last administered on 02/17/18at 20:24; Start at 21:00; Stop 02/19/18 at 11:44; Status DC Risperidone (RisperDAL) 1 mg QHS PO Last administered on 02/13/18at 19:52; Start 02/13/18 at 21:00; Stop 02/14/18 at 19:16; Status DC Trazodone HCl (Desyrel) 50 mg QHS PO Last administered on 02/17/18at 20:24; Start 02/13/18 at 21:00; Stop 02/19/18 at 11:29; Status DC Acetaminophen (Tylenol) 650 mg PRN Q6HRS PRN PO PAIN / TEMP; Start 02/12/18 at 22:30; Stop 02/12/18 at 22:32; Status DC Atorvastatin Calcium (Lipitor) 20 mg QHS PO Last administered on 02/20/18at 20: 28; Start 02/13/18 at 21:00; Stop 02/21/18 at 23:54; Status DC Cyanocobalamin (Vitamin B-12) 1,000 mcg DAILY PO Last administered on at 07:49; Start 02/13/18 at 09:00 Estradiol (Estrace) 1 speedy HS VG ; Start 02/13/18 at 21:00; Stop 02/14/18 at 00: 47; Status DC Lactobacillus Rhamnosus (Culturelle) 1 cap BID PO Last administered on at 20:28; Start 02/13/18 at 09:00; Stop 02/21/18 at 23:54; Status DC Levothyroxine Sodium (Synthroid) 75 mcg DAILYAC PO Last administered on at 09:42; Start 02/13/18 at 07:30; Stop 02/13/18 at 11:19; Status DC Multi-Ingredient Ointment (Analgesic [place]) 1 speedy PRN QID PRN TP MUSCLE PAIN; Start 02/12/18 at 22:30; Status Cancel Sodium Chloride ([place]) 1 inch HS OD Last administered on 03/02/18at 20:53; Start 02/13/18 at 21:00 Sorbitol (Sorbitol Solution) 1 ml PRN DAILY PRN PO CONSTIPATION; Start at 22:30; Status Cancel Amlodipine Besylate (Norvasc) 5 mg DAILY PO Last administered on 02/19/18at 13: 30; Start 02/13/18 at 09:00; Stop 02/19/18 at 17:00; Status DC Vitamin D (Vitamin D3) 50,000 unit WEEKLY PO ; Start 02/19/18 at 09:00; Stop at 09:00; Status DC Non-Formulary Medication (Mag Hydrox/ Aluminum Hyd/ Simeth (Maalox Advanced Suspension)) 15 ml PRN AFTMEALHC PRN PO DYSPEPSIA; Start 02/12/18 at 22:30; Stop 02/12/18 at 22:41; Status DC Non-Formulary Medication (Magnesium Hydroxide (Milk Of Magnesia)) 2,400 mg PRN DAILY PRN PO CONSTIPATION; Start 02/12/18 at 22:30; Stop 02/12/18 at 22:41; Status DC Polyethylene Glycol (miraLAX) 17 gm DAILY PO Last administered on 02/18/18at 09: 15; Start 02/13/18 at 09:00; Stop 02/25/18 at 14:01; Status DC Artificial Tears (Refresh Classic) 1 drop TID OU Last administered on at 21:17; Start 02/13/18 at 09:00; Stop 02/25/18 at 14:01; Status DC Non-Formulary Medication (Sodium Chloride ([place]-128)) 1 drop HS OD ; Start 02/13 at 21:00; Stop 02/13/18 at 21:00; Status DC Levothyroxine Sodium (Synthroid) 75 mcg DAILY06 PO Last administered on at 06:36; Start 02/14/18 at 06:00 Sorbitol (Sorbitol Solution) 30 ml PRN DAILY PRN PO CONSTIPATION; Start at 11:00 Estradiol (Estrace) 1 speedy QMTH VG Last administered on 03/05/18at 16:26; Start 02/16/18 at 21:00 Info (FLU VACCINE per PROTOCOL) 1 ea PRN 1X PRN MC PER PROTOCOL; Start at 09:00; Status UNV Risperidone (RisperDAL) 1.5 mg QHS PO Last administered on 02/21/18at 19:26; Start 02/14/18 at 21:00; Stop 02/21/18 at 23:54; Status DC Bupropion HCl (Wellbutrin Xl) 150 mg DAILY PO Last administered on 02/19/18at 13 :30; Start 02/15/18 at 09:00; Stop 02/19/18 at 16:58; Status DC Quetiapine Fumarate (SEROquel) 25 mg QHS PO Last administered on 02/17/18at 20: 28; Start 02/15/18 at 21:00; Stop 02/19/18 at 11:29; Status DC Hydroxyzine HCl (Atarax) 10 mg PRN Q2HR PRN PO anxiety Last administered on 02/23/18at 21:17; Start 02/16/18 at 16:30 Benztropine Mesylate (Cogentin) 0.5 mg DAILY PO Last administered on at 10:35; Start 02/18/18 at 09:00; Stop 03/04/18 at 18:50; Status DC Mirtazapine (Remeron) 7.5 mg QHS PO Last administered on 02/22/18at 17:16; Start 02/17/18 at 21:00; Stop 02/23/18 at 16:10; Status DC Trazodone HCl (Desyrel) 50 mg PRN QHS PRN PO SEE ADMIN INSTRUCTIONS; Start 02/17/18 at 16:45; Stop 02/19/18 at 11:29; Status DC Trazodone HCl (Desyrel) 100 mg QHS PO ; Start 02/19/18 at 21:00; Stop 02/19/18 at 21:00; Status DC Trazodone HCl (Desyrel) 100 mg PRN QHS PRN PO SEE ADMIN INSTRUCTIONS; Start at 11:30 Trazodone HCl (Desyrel) 100 mg QHS PO Last administered on 02/28/18at 19:53; Start 02/19/18 at 21:00; Stop 03/01/18 at 07:19; Status DC Amlodipine Besylate (Norvasc) 10 mg DAILY PO Last administered on 03/06/18at 07 :49; Start 02/20/18 at 09:00 Amlodipine Besylate (Norvasc) 5 mg 1X ONCE PO Last administered on 02/19/18at 17:11; Start 02/19/18 at 17:00; Stop 02/19/18 at 17:06; Status DC Atorvastatin Calcium (Lipitor) 20 mg DAILYWSUP PO Last administered on at 17:00; Start 02/22/18 at 17:00 Carbamazepine (TEGretol) 300 mg BIDWMEALS PO ; Start 02/22/18 at 17:00; Stop at 17:00; Status DC Lactobacillus Rhamnosus (Culturelle) 1 cap BIDWMEALS PO Last administered on at 07:38; Start 02/22/18 at 08:00; Stop 02/28/18 at 17:12; Status DC Risperidone (RisperDAL) 1.5 mg DAILYWSUP PO Last administered on 03/01/18at 16: 35; Start 02/22/18 at 17:00; Stop 03/01/18 at 18:37; Status DC Carbamazepine (TEGretol) 300 mg BIDWMEALS PO Last administered on 02/24/18at 17: 26; Start 02/22/18 at 08:00; Stop 02/25/18 at 09:39; Status DC Mirtazapine (Remeron) 15 mg QHS PO Last administered on 03/02/18at 17:07; Start 02/23/18 at 17:00; Stop 03/02/18 at 17:12; Status DC Divalproex Sodium (Depakote Er) 500 mg QHS PO Last administered on 02/28/18at 19:53; Start 02/25/18 at 21:00; Stop 03/01/18 at 07:19; Status DC Polyethylene Glycol (miraLAX) 17 gm PRN DAILY PRN PO CONSTIPATION; Start 02/25 at 14:00 Artificial Tears (Refresh Classic) 1 drop PRN TID PRN OU DRY EYE; Start at 14:00 Clozapine (Clozaril) 25 mg QHS PO Last administered on 02/28/18at 19:52; Start 02/25/18 at 21:00; Stop 03/01/18 at 07:19; Status DC Clozapine (Clozaril) 25 mg DAILY@1700 PO Last administered on 03/02/18at 17:07 ; Start 03/01/18 at 17:00; Stop 03/02/18 at 22:35; Status DC Divalproex Sodium (Depakote Er) 500 mg DAILY@1700 PO Last administered on 03/06at 18:01; Start 03/01/18 at 17:00 Trazodone HCl (Desyrel) 100 mg DAILY@1700 PO Last administered on 03/06/18at 18 :02; Start 03/01/18 at 17:00 Risperidone (RisperDAL CONSTA) 25 mg Q2WKS IM ; Start 03/02/18 at 09:00; Stop 03/02/18 at 09:00; Status DC Risperidone (RisperDAL) 1.5 mg DAILYWSUP SL Last administered on 03/02/18at 17: 14; Start 03/02/18 at 17:00; Stop 03/02/18 at 18:13; Status DC Risperidone (RisperDAL CONSTA) 25 mg Q2WKS IM Last administered on 03/03/18at 13:31; Start 03/03/18 at 09:00 Clotrimazole (Lotrimin Af) 1 speedy PRN BID PRN TP itching; Start 03/02/18 at 10: 30 Nystatin (Nystop) 1 speedy PRN BID PRN TP YEAST INFECTION; Start 03/02/18 at 10: 30 Mirtazapine (Remeron) 15 mg DAILYWSUP PO Last administered on 03/06/18at 18:01 ; Start 03/03/18 at 17:00 Risperidone (RisperDAL) 1.5 mg DAILYWSUP PO Last administered on 03/06/18at 18: 02; Start 03/02/18 at 18:15 Clozapine (Clozaril) 50 mg DAILY@1700 PO Last administered on 03/06/18at 18:02 ; Start 03/03/18 at 17:00 Active Scripts Active Reported Sorbitol (Sorbitol Solution) 1 Ml Solution 30 Ml PO PRN DAILY PRN Trazodone Hcl 50 Mg Tablet 50 Mg PO QHS Tegretol (Carbamazepine) 200 Mg Tablet 150 Mg PO BID Risperidone 1 Mg Tablet 1 Mg PO QHS Norvasc (Amlodipine Besylate) 5 Mg Tablet 5 Mg PO DAILY [place]mer-128 (Sodium Chloride) 3.5 Gm Oint...g. 1 Speedy OP HS Miralax (Polyethylene Glycol 3350) 17 Gm Powd.pack 17 Gm PO DAILY Milk Of Magnesia (Magnesium Hydroxide) 2,400 Mg/10 Ml Oral.susp 30 Ml PO PRN DAILY PRN Leaf Carbonate 450 Mg Tablet.er 450 Mg PO HS Leaf Carbonate 150 Mg Capsule 300 Mg PO DAILY Lipitor (Atorvastatin Calcium) 20 Mg Tablet 20 Mg PO QHS Levothyroxine Sodium 75 Mcg Tablet 75 Mcg PO DAILYAC Estrace (Estradiol) 42.5 Gm Cream.appl 1 Speedy VG 2X WEEK Q FRI, URS Vitamin D2 (Ergocalciferol (Vitamin D2)) 50,000 Unit Capsule 50,000 Unit PO WEEKLY Endocet 10-325 Mg Tablet (Oxycodone Hcl/Acetaminophen) 1 Each Tablet 1 Each PO PRN Q6HRS PRN Vitamin B-12 (Cyanocobalamin (Vitamin B-12)) 1,000 Mcg Tablet 1,000 Mcg PO DAILY Benztropine Mesylate 0.5 Mg Tablet 0.5 Mg PO BID Tylenol (Acetaminophen) 325 Mg Tablet 650 Mg PO PRN Q6HRS PRN Maalox Advanced Suspension (Mag Hydrox/Aluminum Hyd/Simeth) 355 Ml Oral.susp 15 Ml PO PRN AFTMEALHC PRN Analgesic [place] (Methyl Salicylate/Menthol) 28 Gm Oint...g. 1 Speedy TP PRN QID PRN Leaf Carbonate 300 Mg Capsule 450 Mg PO QHS Benztropine Mesylate 0.5 Mg Tablet 0.5 Mg PO QHS Risperidone 1 Mg Tablet 1.5 Mg PO QHS Refresh Classic Eye Drops (Polyvinyl Alcohol/Povidone/Pf) 1 Each Droperette 1 Each OU TID Culturelle (Lactobacillus Rhamnosus Gg) 1 Each Cap.sprink 1 Each PO BID Trazodone Hcl 50 Mg Tablet 50 Mg PO PRN QHS PRN Trazodone Hcl 50 Mg Tablet 50 Mg PO HS Tegretol (Carbamazepine) 200 Mg Tablet 300 Mg PO BID Norvasc (Amlodipine Besylate) 5 Mg Tablet 5 Mg PO DAILY Elmer-128 (Sodium Chloride) 15 Ml Drops 1 Drop OD HS Miralax (Polyethylene Glycol 3350) 17 Gm Powd.pack 17 Gm PO DAILY Milk Of Magnesia (Magnesium Hydroxide) 2,400 Mg/10 Ml Oral.susp 2,400 Mg PO PRN DAILY PRN Leaf Carbonate 300 Mg Tablet 300 Mg PO DAILY Lipitor (Atorvastatin Calcium) 20 Mg Tablet 20 Mg PO QHS Levothyroxine Sodium 75 Mcg Tablet 75 Mcg PO DAILYAC Estrace (Estradiol) 42.5 Gm Cream.appl 1 Gm VG HS QMON/ Insert at bedtime on Friday and Vitamin D2 (Ergocalciferol (Vitamin D2)) 50,000 Unit Capsule 50,000 Unit PO WEEKLY Endocet 10-325 Mg Tablet (Oxycodone Hcl/Acetaminophen) 1 Each Tablet 1 Tab PO PRN Q6HRS PRN Tylenol (Acetaminophen) 325 Mg Tablet 650 Mg PO PRN Q6HRS PRN I have reviewed the current psychotropics carefully including drug interactions. Risk benefit ratio favors no change other than as noted in my dictated progress note. 

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
[2018-03-07 06:34] VITALS: BP 152/96
[2018-03-07] MEDS: LEVOTHYROXINE 75 MCG TABLET PO SCH (07:52)
[2018-03-07] MEDS: amLODIPine BESYLATE 10 MG TABLET PO SCH (07:52)
[2018-03-07] MEDS: CYANOCOBALAMIN (VITAMIN B-12) 1,000 MCG TABLET. PO SCH (07:52)
[2018-03-07 16:04] VITALS: BP 173/89
[2018-03-07] MEDS: MIRTAZAPINE 15 MG TABLET PO SCH (17:00)
[2018-03-07] MEDS: DIVALPROEX ER 500 MG TAB.ER.24H PO SCH (17:55)
[2018-03-07] MEDS: ATORVASTATIN CALCIUM 20 MG TABLET PO SCH (17:55)
[2018-03-07] MEDS: risperiDONE 1 MG TABLET. PO SCH (17:55)
[2018-03-07] MEDS: traZODone 100 MG TABLET. PO SCH (17:55)
[2018-03-07] MEDS: cloZAPine 25 MG TABLET PO SCH (17:55)
[2018-03-07] MEDS: SODIUM CHLORIDE 5% OPHTH OINTMENT 3.5GM TUBE. OD SCH (19:55)
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
[2018-03-08] MEDS: LEVOTHYROXINE 75 MCG TABLET PO SCH (06:07)
[2018-03-08 06:24] VITALS: BP 142/90
[2018-03-08] MEDS: amLODIPine BESYLATE 10 MG TABLET PO SCH (07:40)
[2018-03-08] MEDS: CYANOCOBALAMIN (VITAMIN B-12) 1,000 MCG TABLET. PO SCH (07:40)
[2018-03-08 16:38] VITALS: BP 126/80
[2018-03-08] MEDS: MIRTAZAPINE 15 MG TABLET PO SCH (18:02)
[2018-03-08] MEDS: risperiDONE 1 MG TABLET. PO SCH (18:02)
[2018-03-08] MEDS: traZODone 100 MG TABLET. PO SCH (18:03)
[2018-03-08] MEDS: cloZAPine 25 MG TABLET PO SCH (18:03)
[2018-03-08] MEDS: ATORVASTATIN CALCIUM 20 MG TABLET PO SCH (18:03)
[2018-03-08] MEDS: DIVALPROEX ER 500 MG TAB.ER.24H PO SCH (18:04)
[2018-03-08] MEDS: SODIUM CHLORIDE 5% OPHTH OINTMENT 3.5GM TUBE. OD SCH (20:08)
--- NOTE | 2018-03-09 04:49 | PN ---
DATE: 03/06/2018 PSYCHIATRIC PROGRESS NOTE This late entry 03/06/2018 covers elements not covered in my initial note. SUBJECTIVE: Met with the patient in the morning. The patient slept 8 hours previous night, refusing her medications, these had to be syringed by the nursing staff in the morning. She ate 50% of breakfast, which is an improvement for her since she was refusing any meals previously. REVIEW OF SYSTEMS: No CV, , pulmonary, eye, ENT system symptoms on review. Not forthcoming in answering questions. MENTAL STATUS EXAMINATION: Oriented to herself. Insight, judgment, recent and remote memory, attention, concentration, fund of knowledge poor, consistent with her diagnosis. Some of her memory deficits may be exaggerated because of her refusal to answer questions due to ongoing psychosis. LABORATORY DATA: Reviewed. IMPRESSION: Bipolar 1 disorder, mixed with psychotic features. Cognitive disorder, unspecified. PLAN: Continue psychotropics from initial note. Clozaril has been started and she remains on Risperdal Consta and oral Risperdal. As we increase the Clozaril further on 03/09/2018 after the blood counts, will try and reduce the oral Risperdal. Depakote ER is 500 mg p.o. at bedtime and we may need to adjust this, but we will see how she does with the increase of Clozaril initially. MAN Rox AWTT MD DR: SANCHEZ/fredrick JOB#: [id number] / [id number]
[2018-03-09] MEDS: LEVOTHYROXINE 75 MCG TABLET PO SCH (06:00)
[2018-03-09 06:18] VITALS: BP 156/93
[2018-03-09 08:17] LABS: BASO % 1 % (0-3); EOS # 0.1 x10^3/uL (0.0-0.7); EOS % 2 % (0-3); HEMATOCRIT 40.5 % (36.0-47.0); HEMOGLOBIN 13.9 g/dL (12.0-15.5); LYMPH # 2.5 x10^3/uL (1.0-4.8); LYMPH % 44 % (24-48); MEAN CORPUSCULAR HEMOGLOBIN 31 pg (25-35); MEAN CORPUSCULAR HGB CONC 35 g/dL (31-37); MEAN CORPUSCULAR VOLUME 90 fL (79-100); MONO # 0.7 x10^3/uL (0.0-1.1); MONO % 12 % (0-9); NEUT # 2.4 x10^3uL (1.8-7.7); NEUT % 41 % (31-73); PLATELET COUNT 198 x10^3/uL (140-400); RED BLOOD COUNT 4.51 x10^6/uL (3.50-5.40); RED CELL DISTRIBUTION WIDTH 12.7 % (11.5-14.5); WHITE BLOOD COUNT 5.7 x10^3/uL (4.0-11.0)
[2018-03-09 08:20] LABS: ALBUMIN 3.2 g/dL (3.4-5.0); ALBUMIN/GLOBULIN RATIO 0.8 (1.0-1.7); CALCIUM 9.9 mg/dL (8.5-10.1); CREATININE 0.8 mg/dL (0.6-1.0); GFR 71.3; POTASSIUM 4.3 mmol/L (3.5-5.1); TOTAL BILIRUBIN 0.2 mg/dL (0.2-1.0); TOTAL PROTEIN 7.1 g/dL (6.4-8.2)
[2018-03-09] MEDS: CYANOCOBALAMIN (VITAMIN B-12) 1,000 MCG TABLET. PO SCH ×2 (08:35→09:00)
[2018-03-09] MEDS: amLODIPine BESYLATE 10 MG TABLET PO SCH ×2 (08:36→09:00)
[2018-03-09] MEDS: ESTRADIOL 0.01% VAGINAL CREAM 42.5GM TUBE. VG SCH (16:00)
[2018-03-09 16:30] VITALS: BP 143/85
[2018-03-09] MEDS: risperiDONE 1 MG TABLET. PO SCH (17:38)
[2018-03-09] MEDS: cloZAPine 25 MG TABLET PO SCH (17:38)
[2018-03-09] MEDS: MIRTAZAPINE 15 MG TABLET PO SCH (17:39)
[2018-03-09] MEDS: DIVALPROEX ER 500 MG TAB.ER.24H PO SCH (17:39)
[2018-03-09] MEDS: ATORVASTATIN CALCIUM 20 MG TABLET PO SCH (17:39)
[2018-03-09] MEDS: traZODone 100 MG TABLET. PO SCH (17:39)
[2018-03-09] MEDS: SODIUM CHLORIDE 5% OPHTH OINTMENT 3.5GM TUBE. OD SCH (21:00)
--- NOTE | 2018-03-09 23:22 | PDOC ---
Exam Note: Julian Note: Please also refer to the separate dictated note~for this date of service dictated separately.~Patient seen individually. Discussed the patient with Nursing staff reviewed the chart.~Reviewed interim history and current functioning. Reviewed vital signs,~Labs/ Radiology~and current medications noted below. Continue current treatment with the changes noted in the dictated addendum note Assessment: Vital Signs: Vital Signs Date Time Temp Pulse Resp B/P (MAP) Pulse Ox O2 Delivery O2 Flow Rate FiO2 03/09/18 16:30 98.7 100 22 143/85 (104) 97 Room Air I&O Intake and Output 03/09/18 07:00 Intake Total 1035 ml Balance 1035 ml Intake Oral 1035 ml Labs: Laboratory Tests Test 03/09/18 07:39 White Blood Count 5.7 x10^3/uL (4.0-11.0) Red Blood Count 4.51 x10^6/uL (3.50-5.40) Hemoglobin 13.9 g/dL (12.0-15.5) Hematocrit 40.5 % (36.0-47.0) Mean Corpuscular Volume 90 fL (79-100) Mean Corpuscular Hemoglobin 31 pg (25-35) Mean Corpuscular Hemoglobin Concent 35 g/dL (31-37) Red Cell Distribution Width 12.7 % (11.5-14.5) Platelet Count 198 x10^3/uL (140-400) Neutrophils (%) (Auto) 41 % (31-73) Lymphocytes (%) (Auto) 44 % (24-48) Monocytes (%) (Auto) 12 % (0-9) H Eosinophils (%) (Auto) 2 % (0-3) Basophils (%) (Auto) 1 % (0-3) Neutrophils # (Auto) 2.4 x10^3uL (1.8-7.7) Lymphocytes # (Auto) 2.5 x10^3/uL (1.0-4.8) Monocytes # (Auto) 0.7 x10^3/uL (0.0-1.1) Eosinophils # (Auto) 0.1 x10^3/uL (0.0-0.7) Basophils # (Auto) 0.0 x10^3/uL (0.0-0.2) Sodium Level 140 mmol/L (136-145) Potassium Level 4.3 mmol/L (3.5-5.1) Chloride Level 106 mmol/L (98-107) Carbon Dioxide Level 30 mmol/L (21-32) Anion Gap 4 (6-14) L Blood Urea Nitrogen 12 mg/dL (7-20) Creatinine 0.8 mg/dL (0.6-1.0) Estimated GFR (Cockcroft-Gault) 71.3 BUN/Creatinine Ratio 15 (6-20) Glucose Level 103 mg/dL (70-99) H Calcium Level 9.9 mg/dL (8.5-10.1) Total Bilirubin 0.2 mg/dL (0.2-1.0) Aspartate Amino Transferase (AST) 18 U/L (15-37) Alanine Aminotransferase (ALT) 25 U/L (14-59) Alkaline Phosphatase 109 U/L (46-116) Total Protein 7.1 g/dL (6.4-8.2) Albumin 3.2 g/dL (3.4-5.0) L Albumin/Globulin Ratio 0.8 (1.0-1.7) L Current Medications: Meds: Current Medications Acetaminophen (Tylenol) 650 mg PRN Q6HRS PRN PO PAIN / TEMP; Start 02/12/18 at 21:45 Multi-Ingredient Ointment (Analgesic [place]) 1 speedy PRN QID PRN TP MUSCLE PAIN; Start 02/12/18 at 21:45 Al Hydroxide/Mg Hydroxide (Mylanta Plus Xs) 15 ml PRN AFTMEALHC PRN PO DYSPEPSIA; Start 02/12/18 at 21:45 Magnesium Hydroxide (Milk Of Magnesia) 2,400 mg PRN QHS PRN PO CONSTIPATION; Start 02/12/18 at 21:45 Carbamazepine (TEGretol) 150 mg BID PO ; Start 02/13/18 at 09:00; Stop 02/13/18 at 09:00; Status DC Carbamazepine (TEGretol) 300 mg BID PO Last administered on 02/21/18at 19:29; Start 02/13/18 at 09:00; Stop 02/21/18 at 23:54; Status DC Oxycodone/ Acetaminophen (Percocet 10/325) 1 tab PRN Q6HRS PRN PO PAIN Last administered on 02/23/18at 21:17; Start 02/12/18 at 22:30 Oxycodone/ Acetaminophen (Percocet 10/325) 1 tab PRN Q6HRS PRN PO PAIN; Start 02/12/18 at 22:30; Stop 02/12/18 at 22:40; Status DC Benztropine Mesylate (Cogentin) 0.5 mg BID PO Last administered on 02/17/18 07 :25; Start 02/13/18 at 09:00; Stop 02/17/18 at 16:35; Status DC [place] Carbonate 300 mg DAILY PO Last administered on 02/18/18at 09:14; Start 02/13/18 at 09:00; Stop 02/19/18 at 11:29; Status DC [place] Carbonate 450 mg QHS PO Last administered on 02/17/18at 20:24; Start at 21:00; Stop 02/19/18 at 11:44; Status DC Risperidone (RisperDAL) 1 mg QHS PO Last administered on 02/13/18at 19:52; Start 02/13/18 at 21:00; Stop 02/14/18 at 19:16; Status DC Trazodone HCl (Desyrel) 50 mg QHS PO Last administered on 02/17/18 20:24; Start 02/13/18 at 21:00; Stop 02/19/18 at 11:29; Status DC Acetaminophen (Tylenol) 650 mg PRN Q6HRS PRN PO PAIN / TEMP; Start 02/12/18 at 22:30; Stop 02/12/18 at 22:32; Status DC Atorvastatin Calcium (Lipitor) 20 mg QHS PO Last administered on 02/20/18at 20: 28; Start 02/13/18 at 21:00; Stop 02/21/18 at 23:54; Status DC Cyanocobalamin (Vitamin B-12) 1,000 mcg DAILY PO Last administered on at 08:35; Start 02/13/18 at 09:00 Estradiol (Estrace) 1 speedy HS VG ; Start 02/13/18 at 21:00; Stop 02/14/18 at 00: 47; Status DC Lactobacillus Rhamnosus (Culturelle) 1 cap BID PO Last administered on at 20:28; Start 02/13/18 at 09:00; Stop 02/21/18 at 23:54; Status DC Levothyroxine Sodium (Synthroid) 75 mcg DAILYAC PO Last administered on at 09:42; Start 02/13/18 at 07:30; Stop 02/13/18 at 11:19; Status DC Multi-Ingredient Ointment (Analgesic [place]) 1 speedy PRN QID PRN TP MUSCLE PAIN; Start 02/12/18 at 22:30; Status Cancel Sodium Chloride (Elmer) 1 inch HS OD Last administered on 03/02/18at 20:53; Start 02/13/18 at 21:00 Sorbitol (Sorbitol Solution) 1 ml PRN DAILY PRN PO CONSTIPATION; Start at 22:30; Status Cancel Amlodipine Besylate (Norvasc) 5 mg DAILY PO Last administered on 02/19/18at 13: 30; Start 02/13/18 at 09:00; Stop 02/19/18 at 17:00; Status DC Vitamin D (Vitamin D3) 50,000 unit WEEKLY PO ; Start 02/19/18 at 09:00; Stop at 09:00; Status DC Non-Formulary Medication (Mag Hydrox/ Aluminum Hyd/ Simeth (Maalox Advanced Suspension)) 15 ml PRN AFTMEALHC PRN PO DYSPEPSIA; Start 02/12/18 at 22:30; Stop 02/12/18 at 22:41; Status DC Non-Formulary Medication (Magnesium Hydroxide (Milk Of Magnesia)) 2,400 mg PRN DAILY PRN PO CONSTIPATION; Start 02/12/18 at 22:30; Stop 02/12/18 at 22:41; Status DC Polyethylene Glycol (miraLAX) 17 gm DAILY PO Last administered on 02/18/18at 09: 15; Start 02/13/18 at 09:00; Stop 02/25/18 at 14:01; Status DC Artificial Tears (Refresh Classic) 1 drop TID OU Last administered on at 21:17; Start 02/13/18 at 09:00; Stop 02/25/18 at 14:01; Status DC Non-Formulary Medication (Sodium Chloride ([place]mer-128)) 1 drop HS OD ; Start 02/13 at 21:00; Stop 02/13/18 at 21:00; Status DC Levothyroxine Sodium (Synthroid) 75 mcg DAILY06 PO Last administered on at 06:00; Start 02/14/18 at 06:00 Sorbitol (Sorbitol Solution) 30 ml PRN DAILY PRN PO CONSTIPATION; Start at 11:00 Estradiol (Estrace) 1 speedy QMTH VG Last administered on 03/05/18at 16:26; Start 02/16/18 at 21:00 Info (FLU VACCINE per PROTOCOL) 1 ea PRN 1X PRN MC PER PROTOCOL; Start at 09:00; Status UNV Risperidone (RisperDAL) 1.5 mg QHS PO Last administered on 02/21/18at 19:26; Start 02/14/18 at 21:00; Stop 02/21/18 at 23:54; Status DC Bupropion HCl (Wellbutrin Xl) 150 mg DAILY PO Last administered on 02/19/18at 13 :30; Start 02/15/18 at 09:00; Stop 02/19/18 at 16:58; Status DC Quetiapine Fumarate (SEROquel) 25 mg QHS PO Last administered on 02/17/18at 20: 28; Start 02/15/18 at 21:00; Stop 02/19/18 at 11:29; Status DC Hydroxyzine HCl (Atarax) 10 mg PRN Q2HR PRN PO anxiety Last administered on 02/23/18at 21:17; Start 02/16/18 at 16:30 Benztropine Mesylate (Cogentin) 0.5 mg DAILY PO Last administered on at 10:35; Start 02/18/18 at 09:00; Stop 03/04/18 at 18:50; Status DC Mirtazapine (Remeron) 7.5 mg QHS PO Last administered on 02/22/18at 17:16; Start 02/17/18 at 21:00; Stop 02/23/18 at 16:10; Status DC Trazodone HCl (Desyrel) 50 mg PRN QHS PRN PO SEE ADMIN INSTRUCTIONS; Start 02/17/18 at 16:45; Stop 02/19/18 at 11:29; Status DC Trazodone HCl (Desyrel) 100 mg QHS PO ; Start 02/19/18 at 21:00; Stop 02/19/18 at 21:00; Status DC Trazodone HCl (Desyrel) 100 mg PRN QHS PRN PO SEE ADMIN INSTRUCTIONS; Start at 11:30 Trazodone HCl (Desyrel) 100 mg QHS PO Last administered on 02/28/18 19:53; Start 02/19/18 at 21:00; Stop 03/01/18 at 07:19; Status DC Amlodipine Besylate (Norvasc) 10 mg DAILY PO Last administered on 03/09/18 08 :36; Start 02/20/18 at 09:00 Amlodipine Besylate (Norvasc) 5 mg 1X ONCE PO Last administered on 02/19/18 17:11; Start 02/19/18 at 17:00; Stop 02/19/18 at 17:06; Status DC Atorvastatin Calcium (Lipitor) 20 mg DAILYWSUP PO Last administered on at 17:39; Start 02/22/18 at 17:00 Carbamazepine (TEGretol) 300 mg BIDWMEALS PO ; Start 02/22/18 at 17:00; Stop at 17:00; Status DC Lactobacillus Rhamnosus (Culturelle) 1 cap BIDWMEALS PO Last administered on at 07:38; Start 02/22/18 at 08:00; Stop 02/28/18 at 17:12; Status DC Risperidone (RisperDAL) 1.5 mg DAILYWSUP PO Last administered on 03/01/18at 16: 35; Start 02/22/18 at 17:00; Stop 03/01/18 at 18:37; Status DC Carbamazepine (TEGretol) 300 mg BIDWMEALS PO Last administered on 02/24/18 17: 26; Start 02/22/18 at 08:00; Stop 02/25/18 at 09:39; Status DC Mirtazapine (Remeron) 15 mg QHS PO Last administered on 03/02/18 17:07; Start 02/23/18 at 17:00; Stop 03/02/18 at 17:12; Status DC Divalproex Sodium (Depakote Er) 500 mg QHS PO Last administered on 10/13/18at 19:53; Start 02/25/18 at 21:00; Stop 03/01/18 at 07:19; Status DC Polyethylene Glycol (miraLAX) 17 gm PRN DAILY PRN PO CONSTIPATION; Start 02/25 at 14:00 Artificial Tears (Refresh Classic) 1 drop PRN TID PRN OU DRY EYE; Start at 14:00 Clozapine (Clozaril) 25 mg QHS PO Last administered on 02/28/18at 19:52; Start 02/25/18 at 21:00; Stop 03/01/18 at 07:19; Status DC Clozapine (Clozaril) 25 mg DAILY@1700 PO Last administered on 03/02/18at 17:07 ; Start 03/01/18 at 17:00; Stop 03/02/18 at 22:35; Status DC Divalproex Sodium (Depakote Er) 500 mg DAILY@1700 PO Last administered on 03/09at 17:39; Start 03/01/18 at 17:00 Trazodone HCl (Desyrel) 100 mg DAILY@1700 PO Last administered on 03/09/18at 17 :39; Start 03/01/18 at 17:00 Risperidone (RisperDAL CONSTA) 25 mg Q2WKS IM ; Start 03/02/18 at 09:00; Stop 03/02/18 at 09:00; Status DC Risperidone (RisperDAL) 1.5 mg DAILYWSUP SL Last administered on 03/02/18at 17: 14; Start 03/02/18 at 17:00; Stop 03/02/18 at 18:13; Status DC Risperidone (RisperDAL CONSTA) 25 mg Q2WKS IM Last administered on 03/03/18at 13:31; Start 03/03/18 at 09:00 Clotrimazole (Lotrimin Af) 1 speedy PRN BID PRN TP itching; Start 03/02/18 at 10: 30 Nystatin (Nystop) 1 speedy PRN BID PRN TP YEAST INFECTION; Start 03/02/18 at 10: 30 Mirtazapine (Remeron) 15 mg DAILYWSUP PO Last administered on 03/09/18at 17:39 ; Start 03/03/18 at 17:00 Risperidone (RisperDAL) 1.5 mg DAILYWSUP PO Last administered on 03/09/18at 17: 38; Start 03/02/18 at 18:15 Clozapine (Clozaril) 50 mg DAILY@1700 PO Last administered on 03/08/18at 18:03 ; Start 03/03/18 at 17:00; Stop 03/09/18 at 16:53; Status DC Clozapine (Clozaril) 75 mg DAILY@1700 PO Last administered on 03/09/18at 17:38 ; Start 03/09/18 at 17:00 Active Scripts Active Reported Sorbitol (Sorbitol Solution) 1 Ml Solution 30 Ml PO PRN DAILY PRN Trazodone Hcl 50 Mg Tablet 50 Mg PO QHS Tegretol (Carbamazepine) 200 Mg Tablet 150 Mg PO BID Risperidone 1 Mg Tablet 1 Mg PO QHS Norvasc (Amlodipine Besylate) 5 Mg Tablet 5 Mg PO DAILY [place]-128 (Sodium Chloride) 3.5 Gm Oint...g. 1 Speedy OP HS Miralax (Polyethylene Glycol 3350) 17 Gm Powd.pack 17 Gm PO DAILY Milk Of Magnesia (Magnesium Hydroxide) 2,400 Mg/10 Ml Oral.susp 30 Ml PO PRN DAILY PRN [place] Carbonate 450 Mg Tablet.er 450 Mg PO HS [place] Carbonate 150 Mg Capsule 300 Mg PO DAILY Lipitor (Atorvastatin Calcium) 20 Mg Tablet 20 Mg PO QHS Levothyroxine Sodium 75 Mcg Tablet 75 Mcg PO DAILYAC Estrace (Estradiol) 42.5 Gm Cream.appl 1 Speedy VG 2X WEEK Q MON, THURS Vitamin D2 (Ergocalciferol (Vitamin D2)) 50,000 Unit Capsule 50,000 Unit PO WEEKLY Endocet 10-325 Mg Tablet (Oxycodone Hcl/Acetaminophen) 1 Each Tablet 1 Each PO PRN Q6HRS PRN Vitamin B-12 (Cyanocobalamin (Vitamin B-12)) 1,000 Mcg Tablet 1,000 Mcg PO DAILY Benztropine Mesylate 0.5 Mg Tablet 0.5 Mg PO BID Tylenol (Acetaminophen) 325 Mg Tablet 650 Mg PO PRN Q6HRS PRN Maalox Advanced Suspension (Mag Hydrox/Aluminum Hyd/Simeth) 355 Ml Oral.susp 15 Ml PO PRN AFTMEALHC PRN Analgesic [place] (Methyl Salicylate/Menthol) 28 Gm Oint...g. 1 Speedy TP PRN QID PRN [place] Carbonate 300 Mg Capsule 450 Mg PO QHS Benztropine Mesylate 0.5 Mg Tablet 0.5 Mg PO QHS Risperidone 1 Mg Tablet 1.5 Mg PO QHS Refresh Classic Eye Drops (Polyvinyl Alcohol/Povidone/Pf) 1 Each Droperette 1 Each OU TID Culturelle (Lactobacillus Rhamnosus Gg) 1 Each Cap.sprink 1 Each PO BID Trazodone Hcl 50 Mg Tablet 50 Mg PO PRN QHS PRN Trazodone Hcl 50 Mg Tablet 50 Mg PO HS Tegretol (Carbamazepine) 200 Mg Tablet 300 Mg PO BID Norvasc (Amlodipine Besylate) 5 Mg Tablet 5 Mg PO DAILY [place]-128 (Sodium Chloride) 15 Ml Drops 1 Drop OD HS Miralax (Polyethylene Glycol 3350) 17 Gm Powd.pack 17 Gm PO DAILY Milk Of Magnesia (Magnesium Hydroxide) 2,400 Mg/10 Ml Oral.susp 2,400 Mg PO PRN DAILY PRN [place] Carbonate 300 Mg Tablet 300 Mg PO DAILY Lipitor (Atorvastatin Calcium) 20 Mg Tablet 20 Mg PO QHS Levothyroxine Sodium 75 Mcg Tablet 75 Mcg PO DAILYAC Estrace (Estradiol) 42.5 Gm Cream.appl 1 Gm VG HS QMON/TH Insert at bedtime on Friday and Vitamin D2 (Ergocalciferol (Vitamin D2)) 50,000 Unit Capsule 50,000 Unit PO WEEKLY Endocet 10-325 Mg Tablet (Oxycodone Hcl/Acetaminophen) 1 Each Tablet 1 Tab PO PRN Q6HRS PRN Tylenol (Acetaminophen) 325 Mg Tablet 650 Mg PO PRN Q6HRS PRN I have reviewed the current psychotropics carefully including drug interactions. Risk benefit ratio favors no change other than as noted in my dictated progress note. 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
[2018-03-10 05:39] VITALS: BP 186/75
[2018-03-10] MEDS: LEVOTHYROXINE 75 MCG TABLET PO SCH (05:56)
[2018-03-10 16:10] VITALS: BP 164/93
[2018-03-10] MEDS: ATORVASTATIN CALCIUM 20 MG TABLET PO SCH (17:39)
[2018-03-10] MEDS: MIRTAZAPINE 15 MG TABLET PO SCH (17:40)
[2018-03-10] MEDS: traZODone 100 MG TABLET. PO SCH (17:40)
[2018-03-10] MEDS: cloZAPine 25 MG TABLET PO SCH (17:40)
[2018-03-10] MEDS: risperiDONE 1 MG TABLET. PO SCH (17:41)
[2018-03-10] MEDS: DIVALPROEX ER 500 MG TAB.ER.24H PO SCH (17:41)
[2018-03-10] MEDS: SODIUM CHLORIDE 5% OPHTH OINTMENT 3.5GM TUBE. OD SCH (19:22)
[2018-03-11] MEDS: LEVOTHYROXINE 75 MCG TABLET PO SCH (06:00)
[2018-03-11 06:07] VITALS: BP 148/96
[2018-03-11] MEDS: amLODIPine BESYLATE 10 MG TABLET PO SCH (08:10)
[2018-03-11] MEDS: CYANOCOBALAMIN (VITAMIN B-12) 1,000 MCG TABLET. PO SCH (08:10)
[2018-03-11 16:12] VITALS: BP 148/96
[2018-03-11] MEDS: ATORVASTATIN CALCIUM 20 MG TABLET PO SCH (16:17)
[2018-03-11] MEDS: traZODone 100 MG TABLET. PO SCH (16:17)
[2018-03-11] MEDS: cloZAPine 25 MG TABLET PO SCH (16:17)
[2018-03-11] MEDS: risperiDONE 1 MG TABLET. PO SCH (16:17)
[2018-03-11] MEDS: MIRTAZAPINE 15 MG TABLET PO SCH (16:18)
[2018-03-11] MEDS: DIVALPROEX ER 500 MG TAB.ER.24H PO SCH (16:18)
[2018-03-11] MEDS: SODIUM CHLORIDE 5% OPHTH OINTMENT 3.5GM TUBE. OD SCH (19:38)
--- NOTE | 2018-03-11 21:21 | PDOC ---
Exam Note: Julian Note: Late entry for DOS 03/10/2018. Please also refer to the separate dictated note~ for this date of service dictated separately.~Patient seen individually. Discussed the patient with Nursing staff reviewed the chart.~Reviewed interim history and current functioning. Reviewed vital signs,~Labs/ Radiology~and current medications noted below. Continue current treatment with the changes noted in the dictated addendum note Assessment: Vital Signs: VS - Last 72 Hours, by Label Date Time Temp Pulse Resp B/P (MAP) Pulse Ox O2 Delivery O2 Flow Rate FiO2 03/11/18 16:12 97.7 69 16 148/96 (113) 98 03/11/18 08:10 89 148/96 03/11/18 06:07 98.3 89 20 148/96 (113) 98 03/10/18 16:10 98.2 94 19 164/93 (116) 99 Room Air 03/10/18 05:39 97.9 69 18 186/75 (112) 97 03/09/18 16:30 98.7 100 22 143/85 (104) 97 Room Air 03/09/18 09:00 95 156/93 03/09/18 08:36 95 156/93 03/09/18 06:18 98.2 95 20 156/93 (114) 99 Room Air Vital Signs Date Time Temp Pulse Resp B/P (MAP) Pulse Ox O2 Delivery O2 Flow Rate FiO2 03/11/18 16:12 97.7 69 16 148/96 (113) 98 03/10/18 16:10 Room Air I&O Intake and Output 03/11/18 07:00 Intake Total 600 ml Balance 600 ml Intake Oral 600 ml Current Medications: Meds: Current Medications Acetaminophen (Tylenol) 650 mg PRN Q6HRS PRN PO PAIN / TEMP; Start 02/12/18 at 21:45 Multi-Ingredient Ointment (Analgesic [place]) 1 speedy PRN QID PRN TP MUSCLE PAIN; Start 02/12/18 at 21:45 Al Hydroxide/Mg Hydroxide (Mylanta Plus Xs) 15 ml PRN AFTMEALHC PRN PO DYSPEPSIA; Start 02/12/18 at 21:45 Magnesium Hydroxide (Milk Of Magnesia) 2,400 mg PRN QHS PRN PO CONSTIPATION; Start 02/12/18 at 21:45 Carbamazepine (TEGretol) 150 mg BID PO ; Start 02/13/18 at 09:00; Stop 02/13/18 at 09:00; Status DC Carbamazepine (TEGretol) 300 mg BID PO Last administered on 02/21/18at 19:29; Start 02/13/18 at 09:00; Stop 02/21/18 at 23:54; Status DC Oxycodone/ Acetaminophen (Percocet 10/325) 1 tab PRN Q6HRS PRN PO PAIN Last administered on 02/23/18at 21:17; Start 02/12/18 at 22:30 Oxycodone/ Acetaminophen (Percocet 10/325) 1 tab PRN Q6HRS PRN PO PAIN; Start 02/12/18 at 22:30; Stop 02/12/18 at 22:40; Status DC Benztropine Mesylate (Cogentin) 0.5 mg BID PO Last administered on 02/17/18at 07 :25; Start 02/13/18 at 09:00; Stop 02/17/18 at 16:35; Status DC [place] Carbonate 300 mg DAILY PO Last administered on 02/18/18at 09:14; Start 02/13/18 at 09:00; Stop 02/19/18 at 11:29; Status DC [place] Carbonate 450 mg QHS PO Last administered on 02/17/18at 20:24; Start at 21:00; Stop 02/19/18 at 11:44; Status DC Risperidone (RisperDAL) 1 mg QHS PO Last administered on 02/13/18at 19:52; Start 02/13/18 at 21:00; Stop 02/14/18 at 19:16; Status DC Trazodone HCl (Desyrel) 50 mg QHS PO Last administered on 02/17/18at 20:24; Start 02/13/18 at 21:00; Stop 02/19/18 at 11:29; Status DC Acetaminophen (Tylenol) 650 mg PRN Q6HRS PRN PO PAIN / TEMP; Start 02/12/18 at 22:30; Stop 02/12/18 at 22:32; Status DC Atorvastatin Calcium (Lipitor) 20 mg QHS PO Last administered on 02/20/18at 20: 28; Start 02/13/18 at 21:00; Stop 02/21/18 at 23:54; Status DC Cyanocobalamin (Vitamin B-12) 1,000 mcg DAILY PO Last administered on at 08:10; Start 02/13/18 at 09:00 Estradiol (Estrace) 1 speedy HS VG ; Start 02/13/18 at 21:00; Stop 02/14/18 at 00: 47; Status DC Lactobacillus Rhamnosus (Culturelle) 1 cap BID PO Last administered on at 20:28; Start 02/13/18 at 09:00; Stop 02/21/18 at 23:54; Status DC Levothyroxine Sodium (Synthroid) 75 mcg DAILYAC PO Last administered on at 09:42; Start 02/13/18 at 07:30; Stop 02/13/18 at 11:19; Status DC Multi-Ingredient Ointment (Analgesic [place]) 1 speedy PRN QID PRN TP MUSCLE PAIN; Start 02/12/18 at 22:30; Status Cancel Sodium Chloride ([place]) 1 inch HS OD Last administered on 03/09/18at 21:00; Start 02/13/18 at 21:00 Sorbitol (Sorbitol Solution) 1 ml PRN DAILY PRN PO CONSTIPATION; Start at 22:30; Status Cancel Amlodipine Besylate (Norvasc) 5 mg DAILY PO Last administered on 02/19/18at 13: 30; Start 02/13/18 at 09:00; Stop 02/19/18 at 17:00; Status DC Vitamin D (Vitamin D3) 50,000 unit WEEKLY PO ; Start 02/19/18 at 09:00; Stop at 09:00; Status DC Non-Formulary Medication (Mag Hydrox/ Aluminum Hyd/ Simeth (Maalox Advanced Suspension)) 15 ml PRN AFTMEALHC PRN PO DYSPEPSIA; Start 02/12/18 at 22:30; Stop 02/12/18 at 22:41; Status DC Non-Formulary Medication (Magnesium Hydroxide (Milk Of Magnesia)) 2,400 mg PRN DAILY PRN PO CONSTIPATION; Start 02/12/18 at 22:30; Stop 02/12/18 at 22:41; Status DC Polyethylene Glycol (miraLAX) 17 gm DAILY PO Last administered on 02/18/18at 09: 15; Start 02/13/18 at 09:00; Stop 02/25/18 at 14:01; Status DC Artificial Tears (Refresh Classic) 1 drop TID OU Last administered on at 21:17; Start 02/13/18 at 09:00; Stop 02/25/18 at 14:01; Status DC Non-Formulary Medication (Sodium Chloride ([place]-128)) 1 drop HS OD ; Start 02/13 at 21:00; Stop 02/13/18 at 21:00; Status DC Levothyroxine Sodium (Synthroid) 75 mcg DAILY06 PO Last administered on at 06:00; Start 02/14/18 at 06:00 Sorbitol (Sorbitol Solution) 30 ml PRN DAILY PRN PO CONSTIPATION; Start at 11:00 Estradiol (Estrace) 1 speedy QMTH VG Last administered on 03/05/18at 16:26; Start 02/16/18 at 21:00 Info (FLU VACCINE per PROTOCOL) 1 ea PRN 1X PRN MC PER PROTOCOL; Start at 09:00; Status UNV Risperidone (RisperDAL) 1.5 mg QHS PO Last administered on 02/21/18at 19:26; Start 02/14/18 at 21:00; Stop 02/21/18 at 23:54; Status DC Bupropion HCl (Wellbutrin Xl) 150 mg DAILY PO Last administered on 02/19/18at 13 :30; Start 02/15/18 at 09:00; Stop 02/19/18 at 16:58; Status DC Quetiapine Fumarate (SEROquel) 25 mg QHS PO Last administered on 02/17/18at 20: 28; Start 02/15/18 at 21:00; Stop 02/19/18 at 11:29; Status DC Hydroxyzine HCl (Atarax) 10 mg PRN Q2HR PRN PO anxiety Last administered on 02/23/18at 21:17; Start 02/16/18 at 16:30 Benztropine Mesylate (Cogentin) 0.5 mg DAILY PO Last administered on at 10:35; Start 02/18/18 at 09:00; Stop 03/04/18 at 18:50; Status DC Mirtazapine (Remeron) 7.5 mg QHS PO Last administered on 02/22/18at 17:16; Start 02/17/18 at 21:00; Stop 02/23/18 at 16:10; Status DC Trazodone HCl (Desyrel) 50 mg PRN QHS PRN PO SEE ADMIN INSTRUCTIONS; Start 02/17/18 at 16:45; Stop 02/19/18 at 11:29; Status DC Trazodone HCl (Desyrel) 100 mg QHS PO ; Start 02/19/18 at 21:00; Stop 02/19/18 at 21:00; Status DC Trazodone HCl (Desyrel) 100 mg PRN QHS PRN PO SEE ADMIN INSTRUCTIONS; Start at 11:30 Trazodone HCl (Desyrel) 100 mg QHS PO Last administered on 02/28/18at 19:53; Start 02/19/18 at 21:00; Stop 03/01/18 at 07:19; Status DC Amlodipine Besylate (Norvasc) 10 mg DAILY PO Last administered on 03/11/18at 08 :10; Start 02/20/18 at 09:00 Amlodipine Besylate (Norvasc) 5 mg 1X ONCE PO Last administered on 02/19/18at 17:11; Start 02/19/18 at 17:00; Stop 02/19/18 at 17:06; Status DC Atorvastatin Calcium (Lipitor) 20 mg DAILYWSUP PO Last administered on at 16:17; Start 02/22/18 at 17:00 Carbamazepine (TEGretol) 300 mg BIDWMEALS PO ; Start 02/22/18 at 17:00; Stop at 17:00; Status DC Lactobacillus Rhamnosus (Culturelle) 1 cap BIDWMEALS PO Last administered on at 07:38; Start 02/22/18 at 08:00; Stop 02/28/18 at 17:12; Status DC Risperidone (RisperDAL) 1.5 mg DAILYWSUP PO Last administered on 03/01/18at 16: 35; Start 02/22/18 at 17:00; Stop 03/01/18 at 18:37; Status DC Carbamazepine (TEGretol) 300 mg BIDWMEALS PO Last administered on 02/24/18at 17: 26; Start 02/22/18 at 08:00; Stop 02/25/18 at 09:39; Status DC Mirtazapine (Remeron) 15 mg QHS PO Last administered on 03/02/18at 17:07; Start 02/23/18 at 17:00; Stop 03/02/18 at 17:12; Status DC Divalproex Sodium (Depakote Er) 500 mg QHS PO Last administered on 02/28/18at 19:53; Start 02/25/18 at 21:00; Stop 03/01/18 at 07:19; Status DC Polyethylene Glycol (miraLAX) 17 gm PRN DAILY PRN PO CONSTIPATION; Start 02/25 at 14:00 Artificial Tears (Refresh Classic) 1 drop PRN TID PRN OU DRY EYE; Start at 14:00 Clozapine (Clozaril) 25 mg QHS PO Last administered on 02/28/18at 19:52; Start 02/25/18 at 21:00; Stop 03/01/18 at 07:19; Status DC Clozapine (Clozaril) 25 mg DAILY@1700 PO Last administered on 03/02/18at 17:07 ; Start 03/01/18 at 17:00; Stop 03/02/18 at 22:35; Status DC Divalproex Sodium (Depakote Er) 500 mg DAILY@1700 PO Last administered on 03/11at 16:18; Start 03/01/18 at 17:00 Trazodone HCl (Desyrel) 100 mg DAILY@1700 PO Last administered on 03/11/18at 16 :17; Start 03/01/18 at 17:00 Risperidone (RisperDAL CONSTA) 25 mg Q2WKS IM ; Start 03/02/18 at 09:00; Stop 03/02/18 at 09:00; Status DC Risperidone (RisperDAL) 1.5 mg DAILYWSUP SL Last administered on 03/02/18at 17: 14; Start 03/02/18 at 17:00; Stop 03/02/18 at 18:13; Status DC Risperidone (RisperDAL CONSTA) 25 mg Q2WKS IM Last administered on 03/03/18at 13:31; Start 03/03/18 at 09:00 Clotrimazole (Lotrimin Af) 1 speedy PRN BID PRN TP itching Last administered on at 09:55; Start 03/02/18 at 10:30 Nystatin (Nystop) 1 speedy PRN BID PRN TP YEAST INFECTION; Start 03/02/18 at 10: 30 Mirtazapine (Remeron) 15 mg DAILYWSUP PO Last administered on 03/11/18at 16:18 ; Start 03/03/18 at 17:00 Risperidone (RisperDAL) 1.5 mg DAILYWSUP PO Last administered on 03/11/18at 16: 17; Start 03/02/18 at 18:15 Clozapine (Clozaril) 50 mg DAILY@1700 PO Last administered on 03/08/18at 18:03 ; Start 03/03/18 at 17:00; Stop 03/09/18 at 16:53; Status DC Clozapine (Clozaril) 75 mg DAILY@1700 PO Last administered on 03/11/18at 16:17 ; Start 03/09/18 at 17:00 Active Scripts Active Reported Sorbitol (Sorbitol Solution) 1 Ml Solution 30 Ml PO PRN DAILY PRN Trazodone Hcl 50 Mg Tablet 50 Mg PO QHS Tegretol (Carbamazepine) 200 Mg Tablet 150 Mg PO BID Risperidone 1 Mg Tablet 1 Mg PO QHS Norvasc (Amlodipine Besylate) 5 Mg Tablet 5 Mg PO DAILY [place]-128 (Sodium Chloride) 3.5 Gm Oint...g. 1 Speedy OP HS Miralax (Polyethylene Glycol 3350) 17 Gm Powd.pack 17 Gm PO DAILY Milk Of Magnesia (Magnesium Hydroxide) 2,400 Mg/10 Ml Oral.susp 30 Ml PO PRN DAILY PRN [place] Carbonate 450 Mg Tablet.er 450 Mg PO HS [place] Carbonate 150 Mg Capsule 300 Mg PO DAILY Lipitor (Atorvastatin Calcium) 20 Mg Tablet 20 Mg PO QHS Levothyroxine Sodium 75 Mcg Tablet 75 Mcg PO DAILYAC Estrace (Estradiol) 42.5 Gm Cream.appl 1 Speedy VG 2X WEEK Q MON, THURS Vitamin D2 (Ergocalciferol (Vitamin D2)) 50,000 Unit Capsule 50,000 Unit PO WEEKLY Endocet 10-325 Mg Tablet (Oxycodone Hcl/Acetaminophen) 1 Each Tablet 1 Each PO PRN Q6HRS PRN Vitamin B-12 (Cyanocobalamin (Vitamin B-12)) 1,000 Mcg Tablet 1,000 Mcg PO DAILY Benztropine Mesylate 0.5 Mg Tablet 0.5 Mg PO BID Tylenol (Acetaminophen) 325 Mg Tablet 650 Mg PO PRN Q6HRS PRN Maalox Advanced Suspension (Mag Hydrox/Aluminum Hyd/Simeth) 355 Ml Oral.susp 15 Ml PO PRN AFTMEALHC PRN Analgesic [place] (Methyl Salicylate/Menthol) 28 Gm Oint...g. 1 Speedy TP PRN QID PRN [place] Carbonate 300 Mg Capsule 450 Mg PO QHS Benztropine Mesylate 0.5 Mg Tablet 0.5 Mg PO QHS Risperidone 1 Mg Tablet 1.5 Mg PO QHS Refresh Classic Eye Drops (Polyvinyl Alcohol/Povidone/Pf) 1 Each Droperette 1 Each OU TID Culturelle (Lactobacillus Rhamnosus Gg) 1 Each Cap.sprink 1 Each PO BID Trazodone Hcl 50 Mg Tablet 50 Mg PO PRN QHS PRN Trazodone Hcl 50 Mg Tablet 50 Mg PO HS Tegretol (Carbamazepine) 200 Mg Tablet 300 Mg PO BID Norvasc (Amlodipine Besylate) 5 Mg Tablet 5 Mg PO DAILY [place]-128 (Sodium Chloride) 15 Ml Drops 1 Drop OD HS Miralax (Polyethylene Glycol 3350) 17 Gm Powd.pack 17 Gm PO DAILY Milk Of Magnesia (Magnesium Hydroxide) 2,400 Mg/10 Ml Oral.susp 2,400 Mg PO PRN DAILY PRN [place] Carbonate 300 Mg Tablet 300 Mg PO DAILY Lipitor (Atorvastatin Calcium) 20 Mg Tablet 20 Mg PO QHS Levothyroxine Sodium 75 Mcg Tablet 75 Mcg PO DAILYAC Estrace (Estradiol) 42.5 Gm Cream.appl 1 Gm VG HS QMON/THURS Insert at bedtime on Friday and Vitamin D2 (Ergocalciferol (Vitamin D2)) 50,000 Unit Capsule 50,000 Unit PO WEEKLY Endocet 10-325 Mg Tablet (Oxycodone Hcl/Acetaminophen) 1 Each Tablet 1 Tab PO PRN Q6HRS PRN Tylenol (Acetaminophen) 325 Mg Tablet 650 Mg PO PRN Q6HRS PRN I have reviewed the current psychotropics carefully including drug interactions. Risk benefit ratio favors no change other than as noted in my dictated progress note. 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
--- NOTE | 2018-03-11 23:57 | PN ---
DATE: 03/10/2018 PSYCHIATRIC PROGRESS NOTE This late entry 03/10/2018 covers elements not covered in my initial note. SUBJECTIVE: I met with the patient in the evening and also met with her , who was visiting her. The patient slept 5-3/4 hours previous night. Appetite has been improved. She ate 100% of her meals including her supper as I met with her. She sits at the end of the nelson, still somewhat withdrawn, psychotic, but better than before. She is more compliant with her psychotropics according to the . REVIEW OF SYSTEMS: No CV, , pulmonary, eye, ENT system symptoms on review. MENTAL STATUS EXAM: Oriented to herself and situation. Speech, little more verbal than before. Blurting out at times, typical for her. Abstraction fair. Computation, unable to do serial sevens, unable to focus enough to do it. No suicidal or homicidal ideation, remains intermittently psychotic. LABORATORY DATA: Reviewed. IMPRESSION: Bipolar 1 disorder, mixed with psychotic features; cognitive disorder, unspecified; anxiety disorder, unspecified. PLAN: Continue psychotropics from initial note. Clozaril has been increased to 75 mg a day. She remains on oral Risperdal and Risperdal Consta along with Depakote and we will taper the Risperdal as the Clozaril is further increased. MAN Rox WATT MD DR: SANCHEZ/fredrick JOB#: [id number] / [id number]
--- NOTE | 2018-03-11 23:59 | PN ---
DATE: 03/10/2018 PSYCHIATRIC PROGRESS NOTE This late entry 03/10/2018 covers elements not covered in my initial note. SUBJECTIVE: I met with the patient in the evening. Dictation Ends Here. MAN Rox WATT MD DR: Abram JOB#: [id number] / [id number]
[2018-03-12] MEDS: LEVOTHYROXINE 75 MCG TABLET PO SCH (06:00)
[2018-03-12 06:20] VITALS: BP 150/88
[2018-03-12] MEDS: amLODIPine BESYLATE 10 MG TABLET PO SCH (07:33)
[2018-03-12] MEDS: CYANOCOBALAMIN (VITAMIN B-12) 1,000 MCG TABLET. PO SCH (07:34)
--- NOTE | 2018-03-12 09:39 | PN ---
DATE: 03/09/2018 This is a late entry, 03/09/2018, covers elements not covered in my initial note. SUBJECTIVE: I met with the patient in the evening at some length. The patient has been noncompliant with the ____ spending much time in bed during the day. REVIEW OF SYSTEMS: ____ system symptoms on review. MENTAL STATUS EXAM: Oriented to herself and situation. Speech moderate latency, often responses monosyllabic. Abstraction fair, computation impaired, language function intact, attention span short. Mood and affect somewhat ____ psychotic. LABORATORY DATA: CBC, absolute neutrophil counts have been completed. We will check with the pharmacist and if there is no contraindication depending on the absolute neutrophil counts, we will increase the Clozaril from 50 mg to 75 mg a day. Maintain rest of the psychotropics unchanged, and as we increased the Clozaril, we will then try and reduce the oral Risperdal and ultimately the Risperdal Consta. Rest will be unchanged including Depakote and Remeron. KIERSTEN WATT MD DR: SANCHEZ/fredrick JOB#: [id number] / [id number]
[2018-03-12] MEDS: ESTRADIOL 0.01% VAGINAL CREAM 42.5GM TUBE. VG SCH (16:00)
[2018-03-12 16:15] VITALS: BP 175/70
[2018-03-12] MEDS: cloZAPine 25 MG TABLET PO SCH (17:15)
[2018-03-12] MEDS: traZODone 100 MG TABLET. PO SCH (17:16)
[2018-03-12] MEDS: MIRTAZAPINE 15 MG TABLET PO SCH (17:16)
[2018-03-12] MEDS: risperiDONE 1 MG TABLET. PO SCH (17:16)
[2018-03-12] MEDS: ATORVASTATIN CALCIUM 20 MG TABLET PO SCH (17:16)
[2018-03-12] MEDS: DIVALPROEX ER 250 MG TAB.ER.24H. PO SCH (17:18)
[2018-03-12] MEDS: DIVALPROEX ER 500 MG TAB.ER.24H PO SCH (17:18)
[2018-03-12] MEDS: SODIUM CHLORIDE 5% OPHTH OINTMENT 3.5GM TUBE. OD SCH (20:22)
[2018-03-13 05:47] VITALS: BP 142/93
[2018-03-13] MEDS: LEVOTHYROXINE 75 MCG TABLET PO SCH (05:47)
[2018-03-13] MEDS: amLODIPine BESYLATE 10 MG TABLET PO SCH ×2 (08:20→08:34)
[2018-03-13] MEDS: CYANOCOBALAMIN (VITAMIN B-12) 1,000 MCG TABLET. PO SCH ×2 (08:26→08:34)
[2018-03-13 15:52] VITALS: BP 156/92
[2018-03-13] MEDS: ATORVASTATIN CALCIUM 20 MG TABLET PO SCH (17:00)
[2018-03-13] MEDS: MIRTAZAPINE 15 MG TABLET PO SCH (17:00)
[2018-03-13] MEDS: DIVALPROEX ER 500 MG TAB.ER.24H PO SCH (17:00)
[2018-03-13] MEDS: cloZAPine 25 MG TABLET PO SCH (17:00)
[2018-03-13] MEDS: DIVALPROEX ER 250 MG TAB.ER.24H. PO SCH (17:00)
[2018-03-13] MEDS: risperiDONE 1 MG TABLET. PO SCH (17:00)
[2018-03-13] MEDS: traZODone 100 MG TABLET. PO SCH (17:00)
[2018-03-13] MEDS: SODIUM CHLORIDE 5% OPHTH OINTMENT 3.5GM TUBE. OD SCH (21:12)
--- NOTE | 2018-03-13 21:14 | PN ---
DATE: 03/11/2018 PSYCHIATRIC PROGRESS NOTE This late entry 03/11/2018 covers elements not covered in my initial note. SUBJECTIVE: I met with the patient in the evening. The patient slept 5-3/4 hours previous evening. The patient remains somewhat withdrawn, takes her medications, crushed in hot cocoa. Her comes each evening and is a big resource to help feed her supper and give her medications, specifically the Clozaril, which we have changed to the evening when he is here. REVIEW OF SYSTEMS: No CV, , pulmonary, eye, ENT system symptoms on review. Reliability poor. MENTAL STATUS EXAM: Oriented to herself, situation met with her in her room. Speech moderate latency, often responses monosyllabic, more verbal than before, less paranoid, less suspicious, and less "afraid." No active suicidal or homicidal ideation. Attention span short. Language function intact. LABORATORY DATA: Reviewed. IMPRESSION: Bipolar 1 disorder, mixed with psychotic features versus schizoaffective disorder, bipolar type, mixed with psychotic features. Rest unchanged. PLAN: Continue psychotropics from initial note, gradually. Continue to increase Clozaril with weekly CBCs. MAN Rox WATT MD DR: SANCHEZ/fredrick JOB#: [id number] / [id number]
--- NOTE | 2018-03-13 23:42 | PDOC ---
Exam Note: Julian Note: Please also refer to the separate dictated note~for this date of service dictated separately.~Patient seen individually. Discussed the patient with Nursing staff reviewed the chart.~Reviewed interim history and current functioning. Reviewed vital signs,~Labs/ Radiology~and current medications noted below. Continue current treatment with the changes noted in the dictated addendum note Assessment: Vital Signs: Vital Signs Date Time Temp Pulse Resp B/P (MAP) Pulse Ox O2 Delivery O2 Flow Rate FiO2 03/13/18 15:52 97.4 98 24 156/92 (113) 99 Room Air I&O Intake and Output 03/13/18 07:00 Intake Total 1320 ml Balance 1320 ml Intake Oral 1320 ml # Voids 1 Current Medications: Meds: Current Medications Acetaminophen (Tylenol) 650 mg PRN Q6HRS PRN PO PAIN / TEMP; Start 02/12/18 at 21:45 Multi-Ingredient Ointment (Analgesic Fallon) 1 speedy PRN QID PRN TP MUSCLE PAIN; Start 02/12/18 at 21:45 Al Hydroxide/Mg Hydroxide (Mylanta Plus Xs) 15 ml PRN AFTMEALHC PRN PO DYSPEPSIA; Start 02/12/18 at 21:45 Magnesium Hydroxide (Milk Of Magnesia) 2,400 mg PRN QHS PRN PO CONSTIPATION; Start 02/12/18 at 21:45 Carbamazepine (TEGretol) 150 mg BID PO ; Start 02/13/18 at 09:00; Stop 02/13/18 at 09:00; Status DC Carbamazepine (TEGretol) 300 mg BID PO Last administered on 02/21/18at 19:29; Start 02/13/18 at 09:00; Stop 02/21/18 at 23:54; Status DC Oxycodone/ Acetaminophen (Percocet 10/325) 1 tab PRN Q6HRS PRN PO PAIN Last administered on 02/23/18at 21:17; Start 02/12/18 at 22:30 Oxycodone/ Acetaminophen (Percocet 10/325) 1 tab PRN Q6HRS PRN PO PAIN; Start 02/12/18 at 22:30; Stop 02/12/18 at 22:40; Status DC Benztropine Mesylate (Cogentin) 0.5 mg BID PO Last administered on 02/17/18at 07 :25; Start 02/13/18 at 09:00; Stop 02/17/18 at 16:35; Status DC [place] Carbonate 300 mg DAILY PO Last administered on 02/18/18at 09:14; Start 02/13/18 at 09:00; Stop 02/19/18 at 11:29; Status DC [place] Carbonate 450 mg QHS PO Last administered on 02/17/18at 20:24; Start at 21:00; Stop 02/19/18 at 11:44; Status DC Risperidone (RisperDAL) 1 mg QHS PO Last administered on 02/13/18at 19:52; Start 02/13/18 at 21:00; Stop 02/14/18 at 19:16; Status DC Trazodone HCl (Desyrel) 50 mg QHS PO Last administered on 02/17/18at 20:24; Start 02/13/18 at 21:00; Stop 02/19/18 at 11:29; Status DC Acetaminophen (Tylenol) 650 mg PRN Q6HRS PRN PO PAIN / TEMP; Start 02/12/18 at 22:30; Stop 02/12/18 at 22:32; Status DC Atorvastatin Calcium (Lipitor) 20 mg QHS PO Last administered on 02/20/18at 20: 28; Start 02/13/18 at 21:00; Stop 02/21/18 at 23:54; Status DC Cyanocobalamin (Vitamin B-12) 1,000 mcg DAILY PO Last administered on at 07:34; Start 02/13/18 at 09:00 Estradiol (Estrace) 1 speedy HS VG ; Start 02/13/18 at 21:00; Stop 02/14/18 at 00: 47; Status DC Lactobacillus Rhamnosus (Culturelle) 1 cap BID PO Last administered on at 20:28; Start 02/13/18 at 09:00; Stop 02/21/18 at 23:54; Status DC Levothyroxine Sodium (Synthroid) 75 mcg DAILYAC PO Last administered on at 09:42; Start 02/13/18 at 07:30; Stop 02/13/18 at 11:19; Status DC Multi-Ingredient Ointment (Analgesic Fallon) 1 speedy PRN QID PRN TP MUSCLE PAIN; Start 02/12/18 at 22:30; Status Cancel Sodium Chloride (Elmer) 1 inch HS OD Last administered on 03/13/18at 21:12; Start 02/13/18 at 21:00 Sorbitol (Sorbitol Solution) 1 ml PRN DAILY PRN PO CONSTIPATION; Start at 22:30; Status Cancel Amlodipine Besylate (Norvasc) 5 mg DAILY PO Last administered on 02/19/18at 13: 30; Start 02/13/18 at 09:00; Stop 02/19/18 at 17:00; Status DC Vitamin D (Vitamin D3) 50,000 unit WEEKLY PO ; Start 02/19/18 at 09:00; Stop at 09:00; Status DC Non-Formulary Medication (Mag Hydrox/ Aluminum Hyd/ Simeth (Maalox Advanced Suspension)) 15 ml PRN AFTMEALHC PRN PO DYSPEPSIA; Start 02/12/18 at 22:30; Stop 02/12/18 at 22:41; Status DC Non-Formulary Medication (Magnesium Hydroxide (Milk Of Magnesia)) 2,400 mg PRN DAILY PRN PO CONSTIPATION; Start 02/12/18 at 22:30; Stop 02/12/18 at 22:41; Status DC Polyethylene Glycol (miraLAX) 17 gm DAILY PO Last administered on 02/18/18at 09: 15; Start 02/13/18 at 09:00; Stop 02/25/18 at 14:01; Status DC Artificial Tears (Refresh Classic) 1 drop TID OU Last administered on at 21:17; Start 02/13/18 at 09:00; Stop 02/25/18 at 14:01; Status DC Non-Formulary Medication (Sodium Chloride (Elmer-128)) 1 drop HS OD ; Start 02/13 at 21:00; Stop 02/13/18 at 21:00; Status DC Levothyroxine Sodium (Synthroid) 75 mcg DAILY06 PO Last administered on at 05:47; Start 02/14/18 at 06:00 Sorbitol (Sorbitol Solution) 30 ml PRN DAILY PRN PO CONSTIPATION; Start at 11:00 Estradiol (Estrace) 1 speedy QMTH VG Last administered on 03/12/18at 16:00; Start 02/16/18 at 21:00 Info (FLU VACCINE per PROTOCOL) 1 ea PRN 1X PRN MC PER PROTOCOL; Start at 09:00; Status UNV Risperidone (RisperDAL) 1.5 mg QHS PO Last administered on 02/21/18at 19:26; Start 02/14/18 at 21:00; Stop 02/21/18 at 23:54; Status DC Bupropion HCl (Wellbutrin Xl) 150 mg DAILY PO Last administered on 02/19/18at 13 :30; Start 02/15/18 at 09:00; Stop 02/19/18 at 16:58; Status DC Quetiapine Fumarate (SEROquel) 25 mg QHS PO Last administered on 02/17/18at 20: 28; Start 02/15/18 at 21:00; Stop 02/19/18 at 11:29; Status DC Hydroxyzine HCl (Atarax) 10 mg PRN Q2HR PRN PO anxiety Last administered on 02/23/18at 21:17; Start 02/16/18 at 16:30 Benztropine Mesylate (Cogentin) 0.5 mg DAILY PO Last administered on at 10:35; Start 02/18/18 at 09:00; Stop 03/04/18 at 18:50; Status DC Mirtazapine (Remeron) 7.5 mg QHS PO Last administered on 02/22/18at 17:16; Start 02/17/18 at 21:00; Stop 02/23/18 at 16:10; Status DC Trazodone HCl (Desyrel) 50 mg PRN QHS PRN PO SEE ADMIN INSTRUCTIONS; Start 02/17/18 at 16:45; Stop 02/19/18 at 11:29; Status DC Trazodone HCl (Desyrel) 100 mg QHS PO ; Start 02/19/18 at 21:00; Stop 02/19/18 at 21:00; Status DC Trazodone HCl (Desyrel) 100 mg PRN QHS PRN PO SEE ADMIN INSTRUCTIONS; Start at 11:30 Trazodone HCl (Desyrel) 100 mg QHS PO Last administered on 02/28/18at 19:53; Start 02/19/18 at 21:00; Stop 03/01/18 at 07:19; Status DC Amlodipine Besylate (Norvasc) 10 mg DAILY PO Last administered on 03/12/18at 07 :33; Start 02/20/18 at 09:00 Amlodipine Besylate (Norvasc) 5 mg 1X ONCE PO Last administered on 02/19/18at 17:11; Start 02/19/18 at 17:00; Stop 02/19/18 at 17:06; Status DC Atorvastatin Calcium (Lipitor) 20 mg DAILYWSUP PO Last administered on at 17:16; Start 02/22/18 at 17:00 Carbamazepine (TEGretol) 300 mg BIDWMEALS PO ; Start 02/22/18 at 17:00; Stop at 17:00; Status DC Lactobacillus Rhamnosus (Culturelle) 1 cap BIDWMEALS PO Last administered on at 07:38; Start 02/22/18 at 08:00; Stop 02/28/18 at 17:12; Status DC Risperidone (RisperDAL) 1.5 mg DAILYWSUP PO Last administered on 03/01/18at 16: 35; Start 02/22/18 at 17:00; Stop 03/01/18 at 18:37; Status DC Carbamazepine (TEGretol) 300 mg BIDWMEALS PO Last administered on 02/24/18at 17: 26; Start 02/22/18 at 08:00; Stop 02/25/18 at 09:39; Status DC Mirtazapine (Remeron) 15 mg QHS PO Last administered on 03/02/18at 17:07; Start 02/23/18 at 17:00; Stop 03/02/18 at 17:12; Status DC Divalproex Sodium (Depakote Er) 500 mg QHS PO Last administered on 02/28/18at 19:53; Start 02/25/18 at 21:00; Stop 03/01/18 at 07:19; Status DC Polyethylene Glycol (miraLAX) 17 gm PRN DAILY PRN PO CONSTIPATION; Start 02/25 at 14:00 Artificial Tears (Refresh Classic) 1 drop PRN TID PRN OU DRY EYE; Start at 14:00 Clozapine (Clozaril) 25 mg QHS PO Last administered on 02/28/18at 19:52; Start 02/25/18 at 21:00; Stop 03/01/18 at 07:19; Status DC Clozapine (Clozaril) 25 mg DAILY@1700 PO Last administered on 03/02/18at 17:07 ; Start 03/01/18 at 17:00; Stop 03/02/18 at 22:35; Status DC Divalproex Sodium (Depakote Er) 500 mg DAILY@1700 PO Last administered on 03/11at 16:18; Start 03/01/18 at 17:00; Stop 03/12/18 at 11:49; Status DC Trazodone HCl (Desyrel) 100 mg DAILY@1700 PO Last administered on 03/12/18 17 :16; Start 03/01/18 at 17:00 Risperidone (RisperDAL CONSTA) 25 mg Q2WKS IM ; Start 03/02/18 at 09:00; Stop 03/02/18 at 09:00; Status DC Risperidone (RisperDAL) 1.5 mg DAILYWSUP SL Last administered on 03/02/18at 17: 14; Start 03/02/18 at 17:00; Stop 03/02/18 at 18:13; Status DC Risperidone (RisperDAL CONSTA) 25 mg Q2WKS IM Last administered on 03/03/18at 13:31; Start 03/03/18 at 09:00 Clotrimazole (Lotrimin Af) 1 speedy PRN BID PRN TP itching Last administered on at 09:55; Start 03/02/18 at 10:30 Nystatin (Nystop) 1 speedy PRN BID PRN TP YEAST INFECTION; Start 03/02/18 at 10: 30 Mirtazapine (Remeron) 15 mg DAILYWSUP PO Last administered on 03/12/18at 17:16 ; Start 03/03/18 at 17:00 Risperidone (RisperDAL) 1.5 mg DAILYWSUP PO Last administered on 03/12/18at 17: 16; Start 03/02/18 at 18:15 Clozapine (Clozaril) 50 mg DAILY@1700 PO Last administered on 03/08/18at 18:03 ; Start 03/03/18 at 17:00; Stop 03/09/18 at 16:53; Status DC Clozapine (Clozaril) 75 mg DAILY@1700 PO Last administered on 03/12/18at 17:15 ; Start 03/09/18 at 17:00 Divalproex Sodium (Depakote Er) 500 mg DAILY@1700 PO Last administered on 03/12at 17:18; Start 03/12/18 at 17:00 Divalproex Sodium (Depakote Er) 250 mg DAILY@1700 PO Last administered on 03/12at 17:18; Start 03/12/18 at 17:00 Active Scripts Active Reported Sorbitol (Sorbitol Solution) 1 Ml Solution 30 Ml PO PRN DAILY PRN Trazodone Hcl 50 Mg Tablet 50 Mg PO QHS Tegretol (Carbamazepine) 200 Mg Tablet 150 Mg PO BID Risperidone 1 Mg Tablet 1 Mg PO QHS Norvasc (Amlodipine Besylate) 5 Mg Tablet 5 Mg PO DAILY [place]-128 (Sodium Chloride) 3.5 Gm Oint...g. 1 Speedy OP HS Miralax (Polyethylene Glycol 3350) 17 Gm Powd.pack 17 Gm PO DAILY Milk Of Magnesia (Magnesium Hydroxide) 2,400 Mg/10 Ml Oral.susp 30 Ml PO PRN DAILY PRN [place] Carbonate 450 Mg Tablet.er 450 Mg PO HS [place] Carbonate 150 Mg Capsule 300 Mg PO DAILY Lipitor (Atorvastatin Calcium) 20 Mg Tablet 20 Mg PO QHS Levothyroxine Sodium 75 Mcg Tablet 75 Mcg PO DAILYAC Estrace (Estradiol) 42.5 Gm Cream.appl 1 Speedy VG 2X WEEK Q FRI, Vitamin D2 (Ergocalciferol (Vitamin D2)) 50,000 Unit Capsule 50,000 Unit PO WEEKLY Endocet 10-325 Mg Tablet (Oxycodone Hcl/Acetaminophen) 1 Each Tablet 1 Each PO PRN Q6HRS PRN Vitamin B-12 (Cyanocobalamin (Vitamin B-12)) 1,000 Mcg Tablet 1,000 Mcg PO DAILY Benztropine Mesylate 0.5 Mg Tablet 0.5 Mg PO BID Tylenol (Acetaminophen) 325 Mg Tablet 650 Mg PO PRN Q6HRS PRN Maalox Advanced Suspension (Mag Hydrox/Aluminum Hyd/Simeth) 355 Ml Oral.susp 15 Ml PO PRN AFTMEALHC PRN Analgesic [place] (Methyl Salicylate/Menthol) 28 Gm Oint...g. 1 Speedy TP PRN QID PRN [place] Carbonate 300 Mg Capsule 450 Mg PO QHS Benztropine Mesylate 0.5 Mg Tablet 0.5 Mg PO QHS Risperidone 1 Mg Tablet 1.5 Mg PO QHS Refresh Classic Eye Drops (Polyvinyl Alcohol/Povidone/Pf) 1 Each Droperette 1 Each OU TID Culturelle (Lactobacillus Rhamnosus Gg) 1 Each Cap.sprink 1 Each PO BID Trazodone Hcl 50 Mg Tablet 50 Mg PO PRN QHS PRN Trazodone Hcl 50 Mg Tablet 50 Mg PO HS Tegretol (Carbamazepine) 200 Mg Tablet 300 Mg PO BID Norvasc (Amlodipine Besylate) 5 Mg Tablet 5 Mg PO DAILY [place]mer-128 (Sodium Chloride) 15 Ml Drops 1 Drop OD HS Miralax (Polyethylene Glycol 3350) 17 Gm Powd.pack 17 Gm PO DAILY Milk Of Magnesia (Magnesium Hydroxide) 2,400 Mg/10 Ml Oral.susp 2,400 Mg PO PRN DAILY PRN [place] Carbonate 300 Mg Tablet 300 Mg PO DAILY Lipitor (Atorvastatin Calcium) 20 Mg Tablet 20 Mg PO QHS Levothyroxine Sodium 75 Mcg Tablet 75 Mcg PO DAILYAC Estrace (Estradiol) 42.5 Gm Cream.appl 1 Gm VG HS QMON/THURS Insert at bedtime on Friday and Vitamin D2 (Ergocalciferol (Vitamin D2)) 50,000 Unit Capsule 50,000 Unit PO WEEKLY Endocet 10-325 Mg Tablet (Oxycodone Hcl/Acetaminophen) 1 Each Tablet 1 Tab PO PRN Q6HRS PRN Tylenol (Acetaminophen) 325 Mg Tablet 650 Mg PO PRN Q6HRS PRN I have reviewed the current psychotropics carefully including drug interactions. Risk benefit ratio favors no change other than as noted in my dictated progress note. 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
[2018-03-14] MEDS: LEVOTHYROXINE 75 MCG TABLET PO SCH (06:03)
[2018-03-14 06:19] VITALS: BP 155/97
[2018-03-14] MEDS: CYANOCOBALAMIN (VITAMIN B-12) 1,000 MCG TABLET. PO SCH (10:57)
[2018-03-14] MEDS: amLODIPine BESYLATE 10 MG TABLET PO SCH (10:59)
[2018-03-14 16:45] VITALS: BP 149/94
[2018-03-14] MEDS: ATORVASTATIN CALCIUM 20 MG TABLET PO SCH (17:47)
[2018-03-14] MEDS: DIVALPROEX ER 250 MG TAB.ER.24H. PO SCH (17:47)
[2018-03-14] MEDS: cloZAPine 25 MG TABLET PO SCH (17:49)
[2018-03-14] MEDS: DIVALPROEX ER 500 MG TAB.ER.24H PO SCH (17:49)
[2018-03-14] MEDS: traZODone 100 MG TABLET. PO SCH (17:50)
[2018-03-14] MEDS: risperiDONE 1 MG TABLET. PO SCH (17:50)
[2018-03-14] MEDS: MIRTAZAPINE 15 MG TABLET PO SCH (17:50)
[2018-03-14] MEDS: SODIUM CHLORIDE 5% OPHTH OINTMENT 3.5GM TUBE. OD SCH (19:32)
--- NOTE | 2018-03-14 19:55 | PN ---
DATE: 03/12/2018 PSYCHIATRIC PROGRESS NOTE This is a late entry of 03/12/2018, covers elements not covered in my initial note. SUBJECTIVE: I met with the patient in the evening, staffed at a treatment team meeting with the entire team in the morning. The patients sleeps reasonably well at night, remains withdrawn at times, resistive to medications. REVIEW OF SYSTEMS: No CV, , pulmonary, eye, ENT system symptoms on review. Reliability varies. MENTAL STATUS EXAM: Oriented to herself and situation. Speech coherent, often responses monosyllabic. She is more verbal with me, which is an improvement, less formal. No active suicidal or homicidal ideation. Attention span short. Language function intact. Intellect average. Insight limited, judgment marginal. LABORATORY DATA: Last valproic acid level 46. IMPRESSION: Schizoaffective disorder, bipolar type, mixed with psychotic features. PLAN: Increase Depakote ER from 500 mg daily to 750 mg daily. Check CBC, CMP, valproic acid level in 3 days. Continue Clozaril 75 mg a day, gradually increase with weekly CBCs, absolute neutrophil counts. Continue Risperdal Consta and oral Risperdal and as she stabilizes on the Clozaril, we did reduce the Risperdal. Rest unchanged from initial note. KIERSTEN WATT MD DR: SANCHEZ/fredrick JOB#: [id number] / [id number]
--- NOTE | 2018-03-14 23:07 | PDOC ---
Exam Note: Julian Note: Please also refer to the separate dictated note~for this date of service dictated separately.~Patient seen individually. Discussed the patient with Nursing staff reviewed the chart.~Reviewed interim history and current functioning. Reviewed vital signs,~Labs/ Radiology~and current medications noted below. Continue current treatment with the changes noted in the dictated addendum note Assessment: Vital Signs: Vital Signs Date Time Temp Pulse Resp B/P (MAP) Pulse Ox O2 Delivery O2 Flow Rate FiO2 03/14/18 16:45 98.8 84 20 149/94 (112) 98 Room Air I&O Intake and Output 03/14/18 07:00 Intake Total 1200 ml Balance 1200 ml Intake Oral 1200 ml # Voids 1 Current Medications: Meds: Current Medications Acetaminophen (Tylenol) 650 mg PRN Q6HRS PRN PO PAIN / TEMP; Start 02/12/18 at 21:45 Multi-Ingredient Ointment (Analgesic Refugio) 1 speedy PRN QID PRN TP MUSCLE PAIN; Start 02/12/18 at 21:45 Al Hydroxide/Mg Hydroxide (Mylanta Plus Xs) 15 ml PRN AFTMEALHC PRN PO DYSPEPSIA; Start 02/12/18 at 21:45 Magnesium Hydroxide (Milk Of Magnesia) 2,400 mg PRN QHS PRN PO CONSTIPATION; Start 02/12/18 at 21:45 Carbamazepine (TEGretol) 150 mg BID PO ; Start 02/13/18 at 09:00; Stop 02/13/18 at 09:00; Status DC Carbamazepine (TEGretol) 300 mg BID PO Last administered on 02/21/18at 19:29; Start 02/13/18 at 09:00; Stop 02/21/18 at 23:54; Status DC Oxycodone/ Acetaminophen (Percocet 10/325) 1 tab PRN Q6HRS PRN PO PAIN Last administered on 02/23/18at 21:17; Start 02/12/18 at 22:30 Oxycodone/ Acetaminophen (Percocet 10/325) 1 tab PRN Q6HRS PRN PO PAIN; Start 02/12/18 at 22:30; Stop 02/12/18 at 22:40; Status DC Benztropine Mesylate (Cogentin) 0.5 mg BID PO Last administered on 02/17/18at 07 :25; Start 02/13/18 at 09:00; Stop 02/17/18 at 16:35; Status DC [place] Carbonate 300 mg DAILY PO Last administered on 02/18/18at 09:14; Start 02/13/18 at 09:00; Stop 02/19/18 at 11:29; Status DC [place] Carbonate 450 mg QHS PO Last administered on 02/17/18at 20:24; Start at 21:00; Stop 02/19/18 at 11:44; Status DC Risperidone (RisperDAL) 1 mg QHS PO Last administered on 02/13/18at 19:52; Start 02/13/18 at 21:00; Stop 02/14/18 at 19:16; Status DC Trazodone HCl (Desyrel) 50 mg QHS PO Last administered on 02/17/18at 20:24; Start 02/13/18 at 21:00; Stop 02/19/18 at 11:29; Status DC Acetaminophen (Tylenol) 650 mg PRN Q6HRS PRN PO PAIN / TEMP; Start 02/12/18 at 22:30; Stop 02/12/18 at 22:32; Status DC Atorvastatin Calcium (Lipitor) 20 mg QHS PO Last administered on 02/20/18at 20: 28; Start 02/13/18 at 21:00; Stop 02/21/18 at 23:54; Status DC Cyanocobalamin (Vitamin B-12) 1,000 mcg DAILY PO Last administered on at 10:57; Start 02/13/18 at 09:00 Estradiol (Estrace) 1 speedy HS VG ; Start 02/13/18 at 21:00; Stop 02/14/18 at 00: 47; Status DC Lactobacillus Rhamnosus (Culturelle) 1 cap BID PO Last administered on at 20:28; Start 02/13/18 at 09:00; Stop 02/21/18 at 23:54; Status DC Levothyroxine Sodium (Synthroid) 75 mcg DAILYAC PO Last administered on at 09:42; Start 02/13/18 at 07:30; Stop 02/13/18 at 11:19; Status DC Multi-Ingredient Ointment (Analgesic Refugio) 1 speedy PRN QID PRN TP MUSCLE PAIN; Start 02/12/18 at 22:30; Status Cancel Sodium Chloride (Elmer) 1 inch HS OD Last administered on 03/13/18at 21:12; Start 02/13/18 at 21:00 Sorbitol (Sorbitol Solution) 1 ml PRN DAILY PRN PO CONSTIPATION; Start at 22:30; Status Cancel Amlodipine Besylate (Norvasc) 5 mg DAILY PO Last administered on 02/19/18at 13: 30; Start 02/13/18 at 09:00; Stop 02/19/18 at 17:00; Status DC Vitamin D (Vitamin D3) 50,000 unit WEEKLY PO ; Start 02/19/18 at 09:00; Stop at 09:00; Status DC Non-Formulary Medication (Mag Hydrox/ Aluminum Hyd/ Simeth (Maalox Advanced Suspension)) 15 ml PRN AFTMEALHC PRN PO DYSPEPSIA; Start 02/12/18 at 22:30; Stop 02/12/18 at 22:41; Status DC Non-Formulary Medication (Magnesium Hydroxide (Milk Of Magnesia)) 2,400 mg PRN DAILY PRN PO CONSTIPATION; Start 02/12/18 at 22:30; Stop 02/12/18 at 22:41; Status DC Polyethylene Glycol (miraLAX) 17 gm DAILY PO Last administered on 02/18/18at 09: 15; Start 02/13/18 at 09:00; Stop 02/25/18 at 14:01; Status DC Artificial Tears (Refresh Classic) 1 drop TID OU Last administered on at 21:17; Start 02/13/18 at 09:00; Stop 02/25/18 at 14:01; Status DC Non-Formulary Medication (Sodium Chloride (Elmer-128)) 1 drop HS OD ; Start 02/13 at 21:00; Stop 02/13/18 at 21:00; Status DC Levothyroxine Sodium (Synthroid) 75 mcg DAILY06 PO Last administered on at 06:03; Start 02/14/18 at 06:00 Sorbitol (Sorbitol Solution) 30 ml PRN DAILY PRN PO CONSTIPATION; Start at 11:00 Estradiol (Estrace) 1 speedy QMTH VG Last administered on 03/12/18at 16:00; Start 02/16/18 at 21:00 Info (FLU VACCINE per PROTOCOL) 1 ea PRN 1X PRN MC PER PROTOCOL; Start at 09:00; Status UNV Risperidone (RisperDAL) 1.5 mg QHS PO Last administered on 02/21/18at 19:26; Start 02/14/18 at 21:00; Stop 02/21/18 at 23:54; Status DC Bupropion HCl (Wellbutrin Xl) 150 mg DAILY PO Last administered on 02/19/18at 13 :30; Start 02/15/18 at 09:00; Stop 02/19/18 at 16:58; Status DC Quetiapine Fumarate (SEROquel) 25 mg QHS PO Last administered on 02/17/18at 20: 28; Start 02/15/18 at 21:00; Stop 02/19/18 at 11:29; Status DC Hydroxyzine HCl (Atarax) 10 mg PRN Q2HR PRN PO anxiety Last administered on 02/23/18at 21:17; Start 02/16/18 at 16:30 Benztropine Mesylate (Cogentin) 0.5 mg DAILY PO Last administered on at 10:35; Start 02/18/18 at 09:00; Stop 03/04/18 at 18:50; Status DC Mirtazapine (Remeron) 7.5 mg QHS PO Last administered on 02/22/18at 17:16; Start 02/17/18 at 21:00; Stop 02/23/18 at 16:10; Status DC Trazodone HCl (Desyrel) 50 mg PRN QHS PRN PO SEE ADMIN INSTRUCTIONS; Start 02/17/18 at 16:45; Stop 02/19/18 at 11:29; Status DC Trazodone HCl (Desyrel) 100 mg QHS PO ; Start 02/19/18 at 21:00; Stop 02/19/18 at 21:00; Status DC Trazodone HCl (Desyrel) 100 mg PRN QHS PRN PO SEE ADMIN INSTRUCTIONS; Start at 11:30 Trazodone HCl (Desyrel) 100 mg QHS PO Last administered on 02/28/18at 19:53; Start 02/19/18 at 21:00; Stop 03/01/18 at 07:19; Status DC Amlodipine Besylate (Norvasc) 10 mg DAILY PO Last administered on 03/14/18at 10 :59; Start 02/20/18 at 09:00 Amlodipine Besylate (Norvasc) 5 mg 1X ONCE PO Last administered on 02/19/18at 17:11; Start 02/19/18 at 17:00; Stop 02/19/18 at 17:06; Status DC Atorvastatin Calcium (Lipitor) 20 mg DAILYWSUP PO Last administered on at 17:47; Start 02/22/18 at 17:00 Carbamazepine (TEGretol) 300 mg BIDWMEALS PO ; Start 02/22/18 at 17:00; Stop at 17:00; Status DC Lactobacillus Rhamnosus (Culturelle) 1 cap BIDWMEALS PO Last administered on at 07:38; Start 02/22/18 at 08:00; Stop 02/28/18 at 17:12; Status DC Risperidone (RisperDAL) 1.5 mg DAILYWSUP PO Last administered on 03/01/18at 16: 35; Start 02/22/18 at 17:00; Stop 03/01/18 at 18:37; Status DC Carbamazepine (TEGretol) 300 mg BIDWMEALS PO Last administered on 02/24/18at 17: 26; Start 02/22/18 at 08:00; Stop 02/25/18 at 09:39; Status DC Mirtazapine (Remeron) 15 mg QHS PO Last administered on 03/02/18at 17:07; Start 02/23/18 at 17:00; Stop 03/02/18 at 17:12; Status DC Divalproex Sodium (Depakote Er) 500 mg QHS PO Last administered on 02/28/18at 19:53; Start 02/25/18 at 21:00; Stop 03/01/18 at 07:19; Status DC Polyethylene Glycol (miraLAX) 17 gm PRN DAILY PRN PO CONSTIPATION; Start 02/25 at 14:00 Artificial Tears (Refresh Classic) 1 drop PRN TID PRN OU DRY EYE; Start at 14:00 Clozapine (Clozaril) 25 mg QHS PO Last administered on 02/28/18at 19:52; Start 02/25/18 at 21:00; Stop 03/01/18 at 07:19; Status DC Clozapine (Clozaril) 25 mg DAILY@1700 PO Last administered on 03/02/18at 17:07 ; Start 03/01/18 at 17:00; Stop 03/02/18 at 22:35; Status DC Divalproex Sodium (Depakote Er) 500 mg DAILY@1700 PO Last administered on 03/11at 16:18; Start 03/01/18 at 17:00; Stop 03/12/18 at 11:49; Status DC Trazodone HCl (Desyrel) 100 mg DAILY@1700 PO Last administered on 03/14/18at 17 :50; Start 03/01/18 at 17:00 Risperidone (RisperDAL CONSTA) 25 mg Q2WKS IM ; Start 03/02/18 at 09:00; Stop 03/02/18 at 09:00; Status DC Risperidone (RisperDAL) 1.5 mg DAILYWSUP SL Last administered on 03/02/18at 17: 14; Start 03/02/18 at 17:00; Stop 03/02/18 at 18:13; Status DC Risperidone (RisperDAL CONSTA) 25 mg Q2WKS IM Last administered on 03/03/18at 13:31; Start 03/03/18 at 09:00 Clotrimazole (Lotrimin Af) 1 speedy PRN BID PRN TP itching Last administered on at 09:55; Start 03/02/18 at 10:30 Nystatin (Nystop) 1 speedy PRN BID PRN TP YEAST INFECTION; Start 03/02/18 at 10: 30 Mirtazapine (Remeron) 15 mg DAILYWSUP PO Last administered on 03/14/18at 17:50 ; Start 03/03/18 at 17:00 Risperidone (RisperDAL) 1.5 mg DAILYWSUP PO Last administered on 03/14/18at 17: 50; Start 03/02/18 at 18:15 Clozapine (Clozaril) 50 mg DAILY@1700 PO Last administered on 03/08/18at 18:03 ; Start 03/03/18 at 17:00; Stop 03/09/18 at 16:53; Status DC Clozapine (Clozaril) 75 mg DAILY@1700 PO Last administered on 03/14/18at 17:49 ; Start 03/09/18 at 17:00 Divalproex Sodium (Depakote Er) 500 mg DAILY@1700 PO Last administered on 03/14at 17:49; Start 03/12/18 at 17:00 Divalproex Sodium (Depakote Er) 250 mg DAILY@1700 PO Last administered on 03/14at 17:47; Start 03/12/18 at 17:00 Active Scripts Active Reported Sorbitol (Sorbitol Solution) 1 Ml Solution 30 Ml PO PRN DAILY PRN Trazodone Hcl 50 Mg Tablet 50 Mg PO QHS Tegretol (Carbamazepine) 200 Mg Tablet 150 Mg PO BID Risperidone 1 Mg Tablet 1 Mg PO QHS Norvasc (Amlodipine Besylate) 5 Mg Tablet 5 Mg PO DAILY Elmer-128 (Sodium Chloride) 3.5 Gm Oint...g. 1 Speedy OP HS Miralax (Polyethylene Glycol 3350) 17 Gm Powd.pack 17 Gm PO DAILY Milk Of Magnesia (Magnesium Hydroxide) 2,400 Mg/10 Ml Oral.susp 30 Ml PO PRN DAILY PRN [place] Carbonate 450 Mg Tablet.er 450 Mg PO HS [place] Carbonate 150 Mg Capsule 300 Mg PO DAILY Lipitor (Atorvastatin Calcium) 20 Mg Tablet 20 Mg PO QHS Levothyroxine Sodium 75 Mcg Tablet 75 Mcg PO DAILYAC Estrace (Estradiol) 42.5 Gm Cream.appl 1 Speedy VG 2X WEEK Q FRI, Vitamin D2 (Ergocalciferol (Vitamin D2)) 50,000 Unit Capsule 50,000 Unit PO WEEKLY Endocet 10-325 Mg Tablet (Oxycodone Hcl/Acetaminophen) 1 Each Tablet 1 Each PO PRN Q6HRS PRN Vitamin B-12 (Cyanocobalamin (Vitamin B-12)) 1,000 Mcg Tablet 1,000 Mcg PO DAILY Benztropine Mesylate 0.5 Mg Tablet 0.5 Mg PO BID Tylenol (Acetaminophen) 325 Mg Tablet 650 Mg PO PRN Q6HRS PRN Maalox Advanced Suspension (Mag Hydrox/Aluminum Hyd/Simeth) 355 Ml Oral.susp 15 Ml PO PRN AFTMEALHC PRN Analgesic Refugio (Methyl Salicylate/Menthol) 28 Gm Oint...g. 1 Speedy TP PRN QID PRN [place] Carbonate 300 Mg Capsule 450 Mg PO QHS Benztropine Mesylate 0.5 Mg Tablet 0.5 Mg PO QHS Risperidone 1 Mg Tablet 1.5 Mg PO QHS Refresh Classic Eye Drops (Polyvinyl Alcohol/Povidone/Pf) 1 Each Droperette 1 Each OU TID Culturelle (Lactobacillus Rhamnosus Gg) 1 Each Cap.sprink 1 Each PO BID Trazodone Hcl 50 Mg Tablet 50 Mg PO PRN QHS PRN Trazodone Hcl 50 Mg Tablet 50 Mg PO HS Tegretol (Carbamazepine) 200 Mg Tablet 300 Mg PO BID Norvasc (Amlodipine Besylate) 5 Mg Tablet 5 Mg PO DAILY Elmer-128 (Sodium Chloride) 15 Ml Drops 1 Drop OD HS Miralax (Polyethylene Glycol 3350) 17 Gm Powd.pack 17 Gm PO DAILY Milk Of Magnesia (Magnesium Hydroxide) 2,400 Mg/10 Ml Oral.susp 2,400 Mg PO PRN DAILY PRN [place] Carbonate 300 Mg Tablet 300 Mg PO DAILY Lipitor (Atorvastatin Calcium) 20 Mg Tablet 20 Mg PO QHS Levothyroxine Sodium 75 Mcg Tablet 75 Mcg PO DAILYAC Estrace (Estradiol) 42.5 Gm Cream.appl 1 Gm VG HS QMON/ Insert at bedtime on Friday and Vitamin D2 (Ergocalciferol (Vitamin D2)) 50,000 Unit Capsule 50,000 Unit PO WEEKLY Endocet 10-325 Mg Tablet (Oxycodone Hcl/Acetaminophen) 1 Each Tablet 1 Tab PO PRN Q6HRS PRN Tylenol (Acetaminophen) 325 Mg Tablet 650 Mg PO PRN Q6HRS PRN I have reviewed the current psychotropics carefully including drug interactions. Risk benefit ratio favors no change other than as noted in my dictated progress note. 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
--- NOTE | 2018-03-14 23:59 | PN ---
DATE: 03/13/2018 This is a late entry for date of service 03/13/2018 and covers elements not covered in my initial note. SUBJECTIVE: I met with the patient in the evening. The patient slept 6-3/4 hours previous night, somewhat withdrawn, refused a.m. medications. Appetite 75% of breakfast, 100% of lunch, which is quite an improvement for her. REVIEW OF SYSTEMS: Positive for tiredness. No CV, , pulmonary, eye system symptoms on review. MENTAL STATUS EXAM: Oriented to herself and situation. Speech, often responses monosyllabic. Abstraction fair, computation impaired, language function intact, attention span short. Mood and affect, lability is improved. LABORATORY DATA: Reviewed. IMPRESSION: Bipolar 1 disorder, mixed with psychotic features, in partial remission. PLAN: Continue current psychotropics. Encourage compliance with treatment. Gradually increase the Clozaril and then taper and stop the Risperdal. Maintain Depakote. Repeat CBC, CMP, valproic acid level on 03/16/2018. MAN Rox WATT MD DR: SANCHEZ/fredrick JOB#: [id number] / [id number]
[2018-03-15] MEDS: LEVOTHYROXINE 75 MCG TABLET PO SCH (06:00)
[2018-03-15 06:09] VITALS: BP 130/76
[2018-03-15] MEDS: CYANOCOBALAMIN (VITAMIN B-12) 1,000 MCG TABLET. PO SCH (09:03)
[2018-03-15] MEDS: amLODIPine BESYLATE 10 MG TABLET PO SCH (09:04)
--- NOTE | 2018-03-15 12:44 | PN ---
DATE: 03/14/2018 This is a late entry for date of service 03/14/2018 and covers elements not covered in my initial note. SUBJECTIVE: I met with the patient in the evening. The patient slept 5-1/2 hours previous night. She has been resistive with taking her medications in the afternoon. Daughter visited and around 1:00 p.m., she reluctantly took some of her meds, even though she had taken them earlier in the morning. Appetite is better. She denies this resistance as I discussed this with her at some length individually. REVIEW OF SYSTEMS: No CV, , pulmonary, eye, ENT system symptoms on review. MENTAL STATUS EXAM: Oriented to herself and situation. Speech, often responses monosyllabic. Abstraction fair, computation impaired, language function intact, attention span short. Mood and affect remain somewhat withdrawn, at times anxious, labile. No suicidal or homicidal ideation. LABORATORY DATA: Reviewed. IMPRESSION: Schizoaffective disorder, bipolar type, mixed with psychotic features, in partial remission. Rest unchanged. PLAN: No change from initial note, gradually increase Clozaril, then reduce the Risperdal. MAN Rox WATT MD DR: SANCHEZ/fredrick JOB#: [id number] / [id number]
[2018-03-15 16:35] VITALS: BP 147/77
[2018-03-15] MEDS: ATORVASTATIN CALCIUM 20 MG TABLET PO SCH (17:11)
[2018-03-15] MEDS: cloZAPine 25 MG TABLET PO SCH (17:11)
[2018-03-15] MEDS: DIVALPROEX ER 250 MG TAB.ER.24H. PO SCH (17:11)
[2018-03-15] MEDS: MIRTAZAPINE 15 MG TABLET PO SCH (17:11)
[2018-03-15] MEDS: risperiDONE 1 MG TABLET. PO SCH (17:12)
[2018-03-15] MEDS: traZODone 100 MG TABLET. PO SCH (17:12)
[2018-03-15] MEDS: DIVALPROEX ER 500 MG TAB.ER.24H PO SCH (17:16)
[2018-03-15] MEDS: SODIUM CHLORIDE 5% OPHTH OINTMENT 3.5GM TUBE. OD SCH (19:52)
--- NOTE | 2018-03-15 23:09 | PDOC ---
Exam Note: Julian Note: Please also refer to the separate dictated note~for this date of service dictated separately.~Patient seen individually. Discussed the patient with Nursing staff reviewed the chart.~Reviewed interim history and current functioning. Reviewed vital signs,~Labs/ Radiology~and current medications noted below. Continue current treatment with the changes noted in the dictated addendum note Assessment: Vital Signs: Vital Signs Date Time Temp Pulse Resp B/P (MAP) Pulse Ox O2 Delivery O2 Flow Rate FiO2 03/15/18 16:35 97.6 79 18 147/77 (100) Room Air 03/15/18 06:09 96 I&O Intake and Output 03/15/18 07:00 Intake Total 1720 ml Balance 1720 ml Intake Oral 1720 ml Current Medications: Meds: Current Medications Acetaminophen (Tylenol) 650 mg PRN Q6HRS PRN PO PAIN / TEMP; Start 02/12/18 at 21:45 Multi-Ingredient Ointment (Analgesic [place]) 1 speedy PRN QID PRN TP MUSCLE PAIN; Start 02/12/18 at 21:45 Al Hydroxide/Mg Hydroxide (Mylanta Plus Xs) 15 ml PRN AFTMEALHC PRN PO DYSPEPSIA; Start 02/12/18 at 21:45 Magnesium Hydroxide (Milk Of Magnesia) 2,400 mg PRN QHS PRN PO CONSTIPATION; Start 02/12/18 at 21:45 Carbamazepine (TEGretol) 150 mg BID PO ; Start 02/13/18 at 09:00; Stop 02/13/18 at 09:00; Status DC Carbamazepine (TEGretol) 300 mg BID PO Last administered on 02/21/18at 19:29; Start 02/13/18 at 09:00; Stop 02/21/18 at 23:54; Status DC Oxycodone/ Acetaminophen (Percocet 10/325) 1 tab PRN Q6HRS PRN PO PAIN Last administered on 02/23/18at 21:17; Start 02/12/18 at 22:30 Oxycodone/ Acetaminophen (Percocet 10/325) 1 tab PRN Q6HRS PRN PO PAIN; Start 02/12/18 at 22:30; Stop 02/12/18 at 22:40; Status DC Benztropine Mesylate (Cogentin) 0.5 mg BID PO Last administered on 02/17/18 07 :25; Start 02/13/18 at 09:00; Stop 02/17/18 at 16:35; Status DC [place] Carbonate 300 mg DAILY PO Last administered on 02/18/18at 09:14; Start 02/13/18 at 09:00; Stop 02/19/18 at 11:29; Status DC [place] Carbonate 450 mg QHS PO Last administered on 02/17/18 20:24; Start at 21:00; Stop 02/19/18 at 11:44; Status DC Risperidone (RisperDAL) 1 mg QHS PO Last administered on 02/13/18at 19:52; Start 02/13/18 at 21:00; Stop 02/14/18 at 19:16; Status DC Trazodone HCl (Desyrel) 50 mg QHS PO Last administered on 02/17/18 20:24; Start 02/13/18 at 21:00; Stop 02/19/18 at 11:29; Status DC Acetaminophen (Tylenol) 650 mg PRN Q6HRS PRN PO PAIN / TEMP; Start 02/12/18 at 22:30; Stop 02/12/18 at 22:32; Status DC Atorvastatin Calcium (Lipitor) 20 mg QHS PO Last administered on 02/20/18at 20: 28; Start 02/13/18 at 21:00; Stop 02/21/18 at 23:54; Status DC Cyanocobalamin (Vitamin B-12) 1,000 mcg DAILY PO Last administered on at 09:03; Start 02/13/18 at 09:00 Estradiol (Estrace) 1 speedy HS VG ; Start 02/13/18 at 21:00; Stop 02/14/18 at 00: 47; Status DC Lactobacillus Rhamnosus (Culturelle) 1 cap BID PO Last administered on at 20:28; Start 02/13/18 at 09:00; Stop 02/21/18 at 23:54; Status DC Levothyroxine Sodium (Synthroid) 75 mcg DAILYAC PO Last administered on at 09:42; Start 02/13/18 at 07:30; Stop 02/13/18 at 11:19; Status DC Multi-Ingredient Ointment (Analgesic [place]) 1 speedy PRN QID PRN TP MUSCLE PAIN; Start 02/12/18 at 22:30; Status Cancel Sodium Chloride (Elmer) 1 inch HS OD Last administered on 03/13/18at 21:12; Start 02/13/18 at 21:00 Sorbitol (Sorbitol Solution) 1 ml PRN DAILY PRN PO CONSTIPATION; Start at 22:30; Status Cancel Amlodipine Besylate (Norvasc) 5 mg DAILY PO Last administered on 02/19/18at 13: 30; Start 02/13/18 at 09:00; Stop 02/19/18 at 17:00; Status DC Vitamin D (Vitamin D3) 50,000 unit WEEKLY PO ; Start 02/19/18 at 09:00; Stop at 09:00; Status DC Non-Formulary Medication (Mag Hydrox/ Aluminum Hyd/ Simeth (Maalox Advanced Suspension)) 15 ml PRN AFTMEALHC PRN PO DYSPEPSIA; Start 02/12/18 at 22:30; Stop 02/12/18 at 22:41; Status DC Non-Formulary Medication (Magnesium Hydroxide (Milk Of Magnesia)) 2,400 mg PRN DAILY PRN PO CONSTIPATION; Start 02/12/18 at 22:30; Stop 02/12/18 at 22:41; Status DC Polyethylene Glycol (miraLAX) 17 gm DAILY PO Last administered on 02/18/18at 09: 15; Start 02/13/18 at 09:00; Stop 02/25/18 at 14:01; Status DC Artificial Tears (Refresh Classic) 1 drop TID OU Last administered on at 21:17; Start 02/13/18 at 09:00; Stop 02/25/18 at 14:01; Status DC Non-Formulary Medication (Sodium Chloride (Elmer-128)) 1 drop HS OD ; Start 02/13 at 21:00; Stop 02/13/18 at 21:00; Status DC Levothyroxine Sodium (Synthroid) 75 mcg DAILY06 PO Last administered on at 06:03; Start 02/14/18 at 06:00 Sorbitol (Sorbitol Solution) 30 ml PRN DAILY PRN PO CONSTIPATION; Start at 11:00 Estradiol (Estrace) 1 speedy QMTH VG Last administered on 03/12/18at 16:00; Start 02/16/18 at 21:00 Info (FLU VACCINE per PROTOCOL) 1 ea PRN 1X PRN MC PER PROTOCOL; Start at 09:00; Status UNV Risperidone (RisperDAL) 1.5 mg QHS PO Last administered on 02/21/18at 19:26; Start 02/14/18 at 21:00; Stop 02/21/18 at 23:54; Status DC Bupropion HCl (Wellbutrin Xl) 150 mg DAILY PO Last administered on 02/19/18at 13 :30; Start 02/15/18 at 09:00; Stop 02/19/18 at 16:58; Status DC Quetiapine Fumarate (SEROquel) 25 mg QHS PO Last administered on 02/17/18at 20: 28; Start 02/15/18 at 21:00; Stop 02/19/18 at 11:29; Status DC Hydroxyzine HCl (Atarax) 10 mg PRN Q2HR PRN PO anxiety Last administered on 02/23/18at 21:17; Start 02/16/18 at 16:30 Benztropine Mesylate (Cogentin) 0.5 mg DAILY PO Last administered on at 10:35; Start 02/18/18 at 09:00; Stop 03/04/18 at 18:50; Status DC Mirtazapine (Remeron) 7.5 mg QHS PO Last administered on 02/22/18at 17:16; Start 02/17/18 at 21:00; Stop 02/23/18 at 16:10; Status DC Trazodone HCl (Desyrel) 50 mg PRN QHS PRN PO SEE ADMIN INSTRUCTIONS; Start 02/17/18 at 16:45; Stop 02/19/18 at 11:29; Status DC Trazodone HCl (Desyrel) 100 mg QHS PO ; Start 02/19/18 at 21:00; Stop 02/19/18 at 21:00; Status DC Trazodone HCl (Desyrel) 100 mg PRN QHS PRN PO SEE ADMIN INSTRUCTIONS; Start at 11:30 Trazodone HCl (Desyrel) 100 mg QHS PO Last administered on 02/28/18at 19:53; Start 02/19/18 at 21:00; Stop 03/01/18 at 07:19; Status DC Amlodipine Besylate (Norvasc) 10 mg DAILY PO Last administered on 03/15/18at 09 :04; Start 02/20/18 at 09:00 Amlodipine Besylate (Norvasc) 5 mg 1X ONCE PO Last administered on 02/19/18at 17:11; Start 02/19/18 at 17:00; Stop 02/19/18 at 17:06; Status DC Atorvastatin Calcium (Lipitor) 20 mg DAILYWSUP PO Last administered on at 17:11; Start 02/22/18 at 17:00 Carbamazepine (TEGretol) 300 mg BIDWMEALS PO ; Start 02/22/18 at 17:00; Stop at 17:00; Status DC Lactobacillus Rhamnosus (Culturelle) 1 cap BIDWMEALS PO Last administered on at 07:38; Start 02/22/18 at 08:00; Stop 02/28/18 at 17:12; Status DC Risperidone (RisperDAL) 1.5 mg DAILYWSUP PO Last administered on 03/01/18at 16: 35; Start 02/22/18 at 17:00; Stop 03/01/18 at 18:37; Status DC Carbamazepine (TEGretol) 300 mg BIDWMEALS PO Last administered on 02/24/18at 17: 26; Start 02/22/18 at 08:00; Stop 02/25/18 at 09:39; Status DC Mirtazapine (Remeron) 15 mg QHS PO Last administered on 03/02/18at 17:07; Start 02/23/18 at 17:00; Stop 03/02/18 at 17:12; Status DC Divalproex Sodium (Depakote Er) 500 mg QHS PO Last administered on 02/28/18at 19:53; Start 02/25/18 at 21:00; Stop 03/01/18 at 07:19; Status DC Polyethylene Glycol (miraLAX) 17 gm PRN DAILY PRN PO CONSTIPATION; Start 02/25 at 14:00 Artificial Tears (Refresh Classic) 1 drop PRN TID PRN OU DRY EYE; Start at 14:00 Clozapine (Clozaril) 25 mg QHS PO Last administered on 02/28/18at 19:52; Start 02/25/18 at 21:00; Stop 03/01/18 at 07:19; Status DC Clozapine (Clozaril) 25 mg DAILY@1700 PO Last administered on 03/02/18at 17:07 ; Start 03/01/18 at 17:00; Stop 03/02/18 at 22:35; Status DC Divalproex Sodium (Depakote Er) 500 mg DAILY@1700 PO Last administered on 03/11at 16:18; Start 03/01/18 at 17:00; Stop 03/12/18 at 11:49; Status DC Trazodone HCl (Desyrel) 100 mg DAILY@1700 PO Last administered on 03/15/18at 17 :12; Start 03/01/18 at 17:00 Risperidone (RisperDAL CONSTA) 25 mg Q2WKS IM ; Start 03/02/18 at 09:00; Stop 03/02/18 at 09:00; Status DC Risperidone (RisperDAL) 1.5 mg DAILYWSUP SL Last administered on 03/02/18at 17: 14; Start 03/02/18 at 17:00; Stop 03/02/18 at 18:13; Status DC Risperidone (RisperDAL CONSTA) 25 mg Q2WKS IM Last administered on 03/03/18at 13:31; Start 03/03/18 at 09:00 Clotrimazole (Lotrimin Af) 1 speedy PRN BID PRN TP itching Last administered on at 09:55; Start 03/02/18 at 10:30 Nystatin (Nystop) 1 speedy PRN BID PRN TP YEAST INFECTION; Start 03/02/18 at 10: 30 Mirtazapine (Remeron) 15 mg DAILYWSUP PO Last administered on 03/15/18at 17:11 ; Start 03/03/18 at 17:00 Risperidone (RisperDAL) 1.5 mg DAILYWSUP PO Last administered on 03/15/18at 17: 12; Start 03/02/18 at 18:15 Clozapine (Clozaril) 50 mg DAILY@1700 PO Last administered on 03/08/18at 18:03 ; Start 03/03/18 at 17:00; Stop 03/09/18 at 16:53; Status DC Clozapine (Clozaril) 75 mg DAILY@1700 PO Last administered on 03/15/18at 17:11 ; Start 03/09/18 at 17:00 Divalproex Sodium (Depakote Er) 500 mg DAILY@1700 PO Last administered on 03/15at 17:16; Start 03/12/18 at 17:00 Divalproex Sodium (Depakote Er) 250 mg DAILY@1700 PO Last administered on 03/15at 17:11; Start 03/12/18 at 17:00 Active Scripts Active Reported Sorbitol (Sorbitol Solution) 1 Ml Solution 30 Ml PO PRN DAILY PRN Trazodone Hcl 50 Mg Tablet 50 Mg PO QHS Tegretol (Carbamazepine) 200 Mg Tablet 150 Mg PO BID Risperidone 1 Mg Tablet 1 Mg PO QHS Norvasc (Amlodipine Besylate) 5 Mg Tablet 5 Mg PO DAILY Elmer-128 (Sodium Chloride) 3.5 Gm Oint...g. 1 Speedy OP HS Miralax (Polyethylene Glycol 3350) 17 Gm Powd.pack 17 Gm PO DAILY Milk Of Magnesia (Magnesium Hydroxide) 2,400 Mg/10 Ml Oral.susp 30 Ml PO PRN DAILY PRN [place] Carbonate 450 Mg Tablet.er 450 Mg PO HS [place] Carbonate 150 Mg Capsule 300 Mg PO DAILY Lipitor (Atorvastatin Calcium) 20 Mg Tablet 20 Mg PO QHS Levothyroxine Sodium 75 Mcg Tablet 75 Mcg PO DAILYAC Estrace (Estradiol) 42.5 Gm Cream.appl 1 Speedy VG 2X WEEK Q FRI, Vitamin D2 (Ergocalciferol (Vitamin D2)) 50,000 Unit Capsule 50,000 Unit PO WEEKLY Endocet 10-325 Mg Tablet (Oxycodone Hcl/Acetaminophen) 1 Each Tablet 1 Each PO PRN Q6HRS PRN Vitamin B-12 (Cyanocobalamin (Vitamin B-12)) 1,000 Mcg Tablet 1,000 Mcg PO DAILY Benztropine Mesylate 0.5 Mg Tablet 0.5 Mg PO BID Tylenol (Acetaminophen) 325 Mg Tablet 650 Mg PO PRN Q6HRS PRN Maalox Advanced Suspension (Mag Hydrox/Aluminum Hyd/Simeth) 355 Ml Oral.susp 15 Ml PO PRN AFTMEALHC PRN Analgesic [place] (Methyl Salicylate/Menthol) 28 Gm Oint...g. 1 Speedy TP PRN QID PRN [place] Carbonate 300 Mg Capsule 450 Mg PO QHS Benztropine Mesylate 0.5 Mg Tablet 0.5 Mg PO QHS Risperidone 1 Mg Tablet 1.5 Mg PO QHS Refresh Classic Eye Drops (Polyvinyl Alcohol/Povidone/Pf) 1 Each Droperette 1 Each OU TID Culturelle (Lactobacillus Rhamnosus Gg) 1 Each Cap.sprink 1 Each PO BID Trazodone Hcl 50 Mg Tablet 50 Mg PO PRN QHS PRN Trazodone Hcl 50 Mg Tablet 50 Mg PO HS Tegretol (Carbamazepine) 200 Mg Tablet 300 Mg PO BID Norvasc (Amlodipine Besylate) 5 Mg Tablet 5 Mg PO DAILY [place]mer-128 (Sodium Chloride) 15 Ml Drops 1 Drop OD HS Miralax (Polyethylene Glycol 3350) 17 Gm Powd.pack 17 Gm PO DAILY Milk Of Magnesia (Magnesium Hydroxide) 2,400 Mg/10 Ml Oral.susp 2,400 Mg PO PRN DAILY PRN [place] Carbonate 300 Mg Tablet 300 Mg PO DAILY Lipitor (Atorvastatin Calcium) 20 Mg Tablet 20 Mg PO QHS Levothyroxine Sodium 75 Mcg Tablet 75 Mcg PO DAILYAC Estrace (Estradiol) 42.5 Gm Cream.appl 1 Gm VG HS QMON/ Insert at bedtime on Friday and Vitamin D2 (Ergocalciferol (Vitamin D2)) 50,000 Unit Capsule 50,000 Unit PO WEEKLY Endocet 10-325 Mg Tablet (Oxycodone Hcl/Acetaminophen) 1 Each Tablet 1 Tab PO PRN Q6HRS PRN Tylenol (Acetaminophen) 325 Mg Tablet 650 Mg PO PRN Q6HRS PRN I have reviewed the current psychotropics carefully including drug interactions. Risk benefit ratio favors no change other than as noted in my dictated progress note. 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
[2018-03-16 06:09] VITALS: BP 141/84
[2018-03-16] MEDS: LEVOTHYROXINE 75 MCG TABLET PO SCH (06:19)
[2018-03-16 07:03] LABS: BASO % 1 % (0-3); EOS # 0.2 x10^3/uL (0.0-0.7); EOS % 4 % (0-3); HEMATOCRIT 40.4 % (36.0-47.0); HEMOGLOBIN 13.8 g/dL (12.0-15.5); LYMPH # 1.5 x10^3/uL (1.0-4.8); LYMPH % 33 % (24-48); MEAN CORPUSCULAR HEMOGLOBIN 31 pg (25-35); MEAN CORPUSCULAR HGB CONC 34 g/dL (31-37); MEAN CORPUSCULAR VOLUME 89 fL (79-100); MONO # 0.5 x10^3/uL (0.0-1.1); MONO % 12 % (0-9); NEUT # 2.3 x10^3uL (1.8-7.7); NEUT % 51 % (31-73); PLATELET COUNT 198 x10^3/uL (140-400); RED BLOOD COUNT 4.54 x10^6/uL (3.50-5.40); RED CELL DISTRIBUTION WIDTH 12.8 % (11.5-14.5); WHITE BLOOD COUNT 4.5 x10^3/uL (4.0-11.0)
[2018-03-16 07:19] LABS: ALBUMIN 3.2 g/dL (3.4-5.0); ALBUMIN/GLOBULIN RATIO 0.8 (1.0-1.7); CALCIUM 10.1 mg/dL (8.5-10.1); CREATININE 0.8 mg/dL (0.6-1.0); GFR 71.1; POTASSIUM 4.3 mmol/L (3.5-5.1); TOTAL BILIRUBIN 0.2 mg/dL (0.2-1.0); TOTAL PROTEIN 7.1 g/dL (6.4-8.2); VAL ACID 68 mcg/mL (50-100)
[2018-03-16] MEDS: CYANOCOBALAMIN (VITAMIN B-12) 1,000 MCG TABLET. PO SCH (08:12)
[2018-03-16] MEDS: amLODIPine BESYLATE 10 MG TABLET PO SCH (08:12)
[2018-03-16 15:39] VITALS: BP 121/66
[2018-03-16] MEDS: ESTRADIOL 0.01% VAGINAL CREAM 42.5GM TUBE. VG SCH (16:00)
[2018-03-16] MEDS: cloZAPine 100 MG TABLET PO SCH (17:15)
[2018-03-16] MEDS: DIVALPROEX ER 250 MG TAB.ER.24H. PO SCH (17:21)
[2018-03-16] MEDS: MIRTAZAPINE 15 MG TABLET PO SCH (17:21)
[2018-03-16] MEDS: risperiDONE 1 MG TABLET. PO SCH (17:22)
[2018-03-16] MEDS: DIVALPROEX ER 500 MG TAB.ER.24H PO SCH (17:22)
[2018-03-16] MEDS: traZODone 100 MG TABLET. PO SCH (17:23)
[2018-03-16] MEDS: ATORVASTATIN CALCIUM 20 MG TABLET PO SCH (17:23)
[2018-03-16] MEDS: SODIUM CHLORIDE 5% OPHTH OINTMENT 3.5GM TUBE. OD SCH (19:45)
--- NOTE | 2018-03-16 21:02 | PN ---
DATE: 03/15/2018 PSYCHIATRIC PROGRESS NOTE This late entry 03/15/2018 covers elements not covered in my initial note. SUBJECTIVE: I met with the patient in her room. The patient slept 6-3/4 hours previous evening. Per nursing report, she has been withdrawn, compliant with medications with coaxing. Her encourages and has her take her medication when she comes in the evening. She is lying in bed as I met with her. No CV, , pulmonary, eye, ENT system symptoms on review. MENTAL STATUS EXAM: Oriented to herself and situation. Speech, often responses monosyllabic. Abstraction fair, computation impaired, language function intact. She states she still feels scared, somewhat paranoid, better than before. No suicidal or homicidal ideation. LABORATORY DATA: Reviewed. IMPRESSION: Bipolar 1 disorder, mixed with psychotic features, in partial remission; anxiety disorder, unspecified. PLAN: No change from initial note. Maintain Risperdal Consta, oral Risperdal. Clozaril has being increased and then we will taper the Risperdal. MAN Rox WATT MD DR: SANCHEZ/fredrick JOB#: [id number] / [id number]
--- NOTE | 2018-03-16 23:11 | PDOC ---
Exam Note: Julian Note: Please also refer to the separate dictated note~for this date of service dictated separately.~Patient seen individually. Discussed the patient with Nursing staff reviewed the chart.~Reviewed interim history and current functioning. Reviewed vital signs,~Labs/ Radiology~and current medications noted below. Continue current treatment with the changes noted in the dictated addendum note Assessment: Vital Signs: Vital Signs Date Time Temp Pulse Resp B/P (MAP) Pulse Ox O2 Delivery O2 Flow Rate FiO2 03/16/18 15:39 97.2 97 20 121/66 (84) 97 Room Air I&O Intake and Output 03/16/18 07:00 Intake Total 1140 ml Balance 1140 ml Intake Oral 1140 ml Labs: Laboratory Tests Test 03/16/18 06:30 White Blood Count 4.5 x10^3/uL (4.0-11.0) Red Blood Count 4.54 x10^6/uL (3.50-5.40) Hemoglobin 13.8 g/dL (12.0-15.5) Hematocrit 40.4 % (36.0-47.0) Mean Corpuscular Volume 89 fL (79-100) Mean Corpuscular Hemoglobin 31 pg (25-35) Mean Corpuscular Hemoglobin Concent 34 g/dL (31-37) Red Cell Distribution Width 12.8 % (11.5-14.5) Platelet Count 198 x10^3/uL (140-400) Neutrophils (%) (Auto) 51 % (31-73) Lymphocytes (%) (Auto) 33 % (24-48) Monocytes (%) (Auto) 12 % (0-9) H Eosinophils (%) (Auto) 4 % (0-3) H Basophils (%) (Auto) 1 % (0-3) Neutrophils # (Auto) 2.3 x10^3uL (1.8-7.7) Lymphocytes # (Auto) 1.5 x10^3/uL (1.0-4.8) Monocytes # (Auto) 0.5 x10^3/uL (0.0-1.1) Eosinophils # (Auto) 0.2 x10^3/uL (0.0-0.7) Basophils # (Auto) 0.0 x10^3/uL (0.0-0.2) Sodium Level 142 mmol/L (136-145) Potassium Level 4.3 mmol/L (3.5-5.1) Chloride Level 107 mmol/L (98-107) Carbon Dioxide Level 31 mmol/L (21-32) Anion Gap 4 (6-14) L Blood Urea Nitrogen 13 mg/dL (7-20) Creatinine 0.8 mg/dL (0.6-1.0) Estimated GFR (Cockcroft-Gault) 71.1 BUN/Creatinine Ratio 16 (6-20) Glucose Level 107 mg/dL (70-99) H Calcium Level 10.1 mg/dL (8.5-10.1) Total Bilirubin 0.2 mg/dL (0.2-1.0) Aspartate Amino Transferase (AST) 17 U/L (15-37) Alanine Aminotransferase (ALT) 22 U/L (14-59) Alkaline Phosphatase 110 U/L (46-116) Total Protein 7.1 g/dL (6.4-8.2) Albumin 3.2 g/dL (3.4-5.0) L Albumin/Globulin Ratio 0.8 (1.0-1.7) L Valproic Acid Level 68 mcg/mL (50-100) Valproic Acid Last Dose Date 03/14/18 Valproic Acid Last Dose Time 2100 Current Medications: Meds: Current Medications Acetaminophen (Tylenol) 650 mg PRN Q6HRS PRN PO PAIN / TEMP; Start 02/12/18 at 21:45 Multi-Ingredient Ointment (Analgesic [place]) 1 speedy PRN QID PRN TP MUSCLE PAIN; Start 02/12/18 at 21:45 Al Hydroxide/Mg Hydroxide (Mylanta Plus Xs) 15 ml PRN AFTMEALHC PRN PO DYSPEPSIA; Start 02/12/18 at 21:45 Magnesium Hydroxide (Milk Of Magnesia) 2,400 mg PRN QHS PRN PO CONSTIPATION; Start 02/12/18 at 21:45 Carbamazepine (TEGretol) 150 mg BID PO ; Start 02/13/18 at 09:00; Stop 02/13/18 at 09:00; Status DC Carbamazepine (TEGretol) 300 mg BID PO Last administered on 02/21/18at 19:29; Start 02/13/18 at 09:00; Stop 02/21/18 at 23:54; Status DC Oxycodone/ Acetaminophen (Percocet 10/325) 1 tab PRN Q6HRS PRN PO PAIN Last administered on 02/23/18at 21:17; Start 02/12/18 at 22:30 Oxycodone/ Acetaminophen (Percocet 10/325) 1 tab PRN Q6HRS PRN PO PAIN; Start 02/12/18 at 22:30; Stop 02/12/18 at 22:40; Status DC Benztropine Mesylate (Cogentin) 0.5 mg BID PO Last administered on 02/17/18at 07 :25; Start 02/13/18 at 09:00; Stop 02/17/18 at 16:35; Status DC [place] Carbonate 300 mg DAILY PO Last administered on 02/18/18at 09:14; Start 02/13/18 at 09:00; Stop 02/19/18 at 11:29; Status DC [place] Carbonate 450 mg QHS PO Last administered on 02/17/18at 20:24; Start at 21:00; Stop 02/19/18 at 11:44; Status DC Risperidone (RisperDAL) 1 mg QHS PO Last administered on 02/13/18at 19:52; Start 02/13/18 at 21:00; Stop 02/14/18 at 19:16; Status DC Trazodone HCl (Desyrel) 50 mg QHS PO Last administered on 02/17/18at 20:24; Start 02/13/18 at 21:00; Stop 02/19/18 at 11:29; Status DC Acetaminophen (Tylenol) 650 mg PRN Q6HRS PRN PO PAIN / TEMP; Start 02/12/18 at 22:30; Stop 02/12/18 at 22:32; Status DC Atorvastatin Calcium (Lipitor) 20 mg QHS PO Last administered on 02/20/18at 20: 28; Start 02/13/18 at 21:00; Stop 02/21/18 at 23:54; Status DC Cyanocobalamin (Vitamin B-12) 1,000 mcg DAILY PO Last administered on at 08:12; Start 02/13/18 at 09:00 Estradiol (Estrace) 1 speedy HS VG ; Start 02/13/18 at 21:00; Stop 02/14/18 at 00: 47; Status DC Lactobacillus Rhamnosus (Culturelle) 1 cap BID PO Last administered on at 20:28; Start 02/13/18 at 09:00; Stop 02/21/18 at 23:54; Status DC Levothyroxine Sodium (Synthroid) 75 mcg DAILYAC PO Last administered on at 09:42; Start 02/13/18 at 07:30; Stop 02/13/18 at 11:19; Status DC Multi-Ingredient Ointment (Analgesic [place]) 1 speedy PRN QID PRN TP MUSCLE PAIN; Start 02/12/18 at 22:30; Status Cancel Sodium Chloride ([place]) 1 inch HS OD Last administered on 03/13/18at 21:12; Start 02/13/18 at 21:00 Sorbitol (Sorbitol Solution) 1 ml PRN DAILY PRN PO CONSTIPATION; Start at 22:30; Status Cancel Amlodipine Besylate (Norvasc) 5 mg DAILY PO Last administered on 02/19/18at 13: 30; Start 02/13/18 at 09:00; Stop 02/19/18 at 17:00; Status DC Vitamin D (Vitamin D3) 50,000 unit WEEKLY PO ; Start 02/19/18 at 09:00; Stop at 09:00; Status DC Non-Formulary Medication (Mag Hydrox/ Aluminum Hyd/ Simeth (Maalox Advanced Suspension)) 15 ml PRN AFTMEALHC PRN PO DYSPEPSIA; Start 02/12/18 at 22:30; Stop 02/12/18 at 22:41; Status DC Non-Formulary Medication (Magnesium Hydroxide (Milk Of Magnesia)) 2,400 mg PRN DAILY PRN PO CONSTIPATION; Start 02/12/18 at 22:30; Stop 02/12/18 at 22:41; Status DC Polyethylene Glycol (miraLAX) 17 gm DAILY PO Last administered on 02/18/18at 09: 15; Start 02/13/18 at 09:00; Stop 02/25/18 at 14:01; Status DC Artificial Tears (Refresh Classic) 1 drop TID OU Last administered on at 21:17; Start 02/13/18 at 09:00; Stop 02/25/18 at 14:01; Status DC Non-Formulary Medication (Sodium Chloride ([place]mer-128)) 1 drop HS OD ; Start 02/13 at 21:00; Stop 02/13/18 at 21:00; Status DC Levothyroxine Sodium (Synthroid) 75 mcg DAILY06 PO Last administered on at 06:19; Start 02/14/18 at 06:00 Sorbitol (Sorbitol Solution) 30 ml PRN DAILY PRN PO CONSTIPATION; Start at 11:00 Estradiol (Estrace) 1 speedy QMTH VG Last administered on 03/12/18at 16:00; Start 02/16/18 at 21:00 Info (FLU VACCINE per PROTOCOL) 1 ea PRN 1X PRN MC PER PROTOCOL; Start at 09:00; Status UNV Risperidone (RisperDAL) 1.5 mg QHS PO Last administered on 02/21/18at 19:26; Start 02/14/18 at 21:00; Stop 02/21/18 at 23:54; Status DC Bupropion HCl (Wellbutrin Xl) 150 mg DAILY PO Last administered on 02/19/18at 13 :30; Start 02/15/18 at 09:00; Stop 02/19/18 at 16:58; Status DC Quetiapine Fumarate (SEROquel) 25 mg QHS PO Last administered on 02/17/18at 20: 28; Start 02/15/18 at 21:00; Stop 02/19/18 at 11:29; Status DC Hydroxyzine HCl (Atarax) 10 mg PRN Q2HR PRN PO anxiety Last administered on 02/23/18at 21:17; Start 02/16/18 at 16:30 Benztropine Mesylate (Cogentin) 0.5 mg DAILY PO Last administered on at 10:35; Start 02/18/18 at 09:00; Stop 03/04/18 at 18:50; Status DC Mirtazapine (Remeron) 7.5 mg QHS PO Last administered on 02/22/18at 17:16; Start 02/17/18 at 21:00; Stop 02/23/18 at 16:10; Status DC Trazodone HCl (Desyrel) 50 mg PRN QHS PRN PO SEE ADMIN INSTRUCTIONS; Start 02/17/18 at 16:45; Stop 02/19/18 at 11:29; Status DC Trazodone HCl (Desyrel) 100 mg QHS PO ; Start 02/19/18 at 21:00; Stop 02/19/18 at 21:00; Status DC Trazodone HCl (Desyrel) 100 mg PRN QHS PRN PO SEE ADMIN INSTRUCTIONS; Start at 11:30 Trazodone HCl (Desyrel) 100 mg QHS PO Last administered on 02/28/18at 19:53; Start 02/19/18 at 21:00; Stop 03/01/18 at 07:19; Status DC Amlodipine Besylate (Norvasc) 10 mg DAILY PO Last administered on 03/16/18at 08 :12; Start 02/20/18 at 09:00 Amlodipine Besylate (Norvasc) 5 mg 1X ONCE PO Last administered on 02/19/18at 17:11; Start 02/19/18 at 17:00; Stop 02/19/18 at 17:06; Status DC Atorvastatin Calcium (Lipitor) 20 mg DAILYWSUP PO Last administered on at 17:23; Start 02/22/18 at 17:00 Carbamazepine (TEGretol) 300 mg BIDWMEALS PO ; Start 02/22/18 at 17:00; Stop at 17:00; Status DC Lactobacillus Rhamnosus (Culturelle) 1 cap BIDWMEALS PO Last administered on at 07:38; Start 02/22/18 at 08:00; Stop 02/28/18 at 17:12; Status DC Risperidone (RisperDAL) 1.5 mg DAILYWSUP PO Last administered on 03/01/18at 16: 35; Start 02/22/18 at 17:00; Stop 03/01/18 at 18:37; Status DC Carbamazepine (TEGretol) 300 mg BIDWMEALS PO Last administered on 02/24/18at 17: 26; Start 02/22/18 at 08:00; Stop 02/25/18 at 09:39; Status DC Mirtazapine (Remeron) 15 mg QHS PO Last administered on 03/02/18at 17:07; Start 02/23/18 at 17:00; Stop 03/02/18 at 17:12; Status DC Divalproex Sodium (Depakote Er) 500 mg QHS PO Last administered on 02/28/18at 19:53; Start 02/25/18 at 21:00; Stop 03/01/18 at 07:19; Status DC Polyethylene Glycol (miraLAX) 17 gm PRN DAILY PRN PO CONSTIPATION; Start 02/25 at 14:00 Artificial Tears (Refresh Classic) 1 drop PRN TID PRN OU DRY EYE; Start at 14:00 Clozapine (Clozaril) 25 mg QHS PO Last administered on 02/28/18at 19:52; Start 02/25/18 at 21:00; Stop 03/01/18 at 07:19; Status DC Clozapine (Clozaril) 25 mg DAILY@1700 PO Last administered on 03/02/18at 17:07 ; Start 03/01/18 at 17:00; Stop 03/02/18 at 22:35; Status DC Divalproex Sodium (Depakote Er) 500 mg DAILY@1700 PO Last administered on 03/11at 16:18; Start 03/01/18 at 17:00; Stop 03/12/18 at 11:49; Status DC Trazodone HCl (Desyrel) 100 mg DAILY@1700 PO Last administered on 03/16/18at 17 :23; Start 03/01/18 at 17:00 Risperidone (RisperDAL CONSTA) 25 mg Q2WKS IM ; Start 03/02/18 at 09:00; Stop 03/02/18 at 09:00; Status DC Risperidone (RisperDAL) 1.5 mg DAILYWSUP SL Last administered on 03/02/18at 17: 14; Start 03/02/18 at 17:00; Stop 03/02/18 at 18:13; Status DC Risperidone (RisperDAL CONSTA) 25 mg Q2WKS IM Last administered on 03/03/18at 13:31; Start 03/03/18 at 09:00 Clotrimazole (Lotrimin Af) 1 speedy PRN BID PRN TP itching Last administered on at 09:55; Start 03/02/18 at 10:30 Nystatin (Nystop) 1 speedy PRN BID PRN TP YEAST INFECTION; Start 03/02/18 at 10: 30 Mirtazapine (Remeron) 15 mg DAILYWSUP PO Last administered on 03/16/18at 17:21 ; Start 03/03/18 at 17:00 Risperidone (RisperDAL) 1.5 mg DAILYWSUP PO Last administered on 03/16/18at 17: 22; Start 03/02/18 at 18:15 Clozapine (Clozaril) 50 mg DAILY@1700 PO Last administered on 03/08/18at 18:03 ; Start 03/03/18 at 17:00; Stop 03/09/18 at 16:53; Status DC Clozapine (Clozaril) 75 mg DAILY@1700 PO Last administered on 03/15/18at 17:11 ; Start 03/09/18 at 17:00; Stop 03/16/18 at 16:58; Status DC Divalproex Sodium (Depakote Er) 500 mg DAILY@1700 PO Last administered on 03/16at 17:22; Start 03/12/18 at 17:00 Divalproex Sodium (Depakote Er) 250 mg DAILY@1700 PO Last administered on 03/16at 17:21; Start 03/12/18 at 17:00 Clozapine (Clozaril) 100 mg DAILY@1700 PO Last administered on 03/16/18at 17:15 ; Start 03/16/18 at 17:15 Active Scripts Active Reported Sorbitol (Sorbitol Solution) 1 Ml Solution 30 Ml PO PRN DAILY PRN Trazodone Hcl 50 Mg Tablet 50 Mg PO QHS Tegretol (Carbamazepine) 200 Mg Tablet 150 Mg PO BID Risperidone 1 Mg Tablet 1 Mg PO QHS Norvasc (Amlodipine Besylate) 5 Mg Tablet 5 Mg PO DAILY [place]-128 (Sodium Chloride) 3.5 Gm Oint...g. 1 Speedy OP HS Miralax (Polyethylene Glycol 3350) 17 Gm Powd.pack 17 Gm PO DAILY Milk Of Magnesia (Magnesium Hydroxide) 2,400 Mg/10 Ml Oral.susp 30 Ml PO PRN DAILY PRN [place] Carbonate 450 Mg Tablet.er 450 Mg PO HS [place] Carbonate 150 Mg Capsule 300 Mg PO DAILY Lipitor (Atorvastatin Calcium) 20 Mg Tablet 20 Mg PO QHS Levothyroxine Sodium 75 Mcg Tablet 75 Mcg PO DAILYAC Estrace (Estradiol) 42.5 Gm Cream.appl 1 Speedy VG 2X WEEK Q FRI, Vitamin D2 (Ergocalciferol (Vitamin D2)) 50,000 Unit Capsule 50,000 Unit PO WEEKLY Endocet 10-325 Mg Tablet (Oxycodone Hcl/Acetaminophen) 1 Each Tablet 1 Each PO PRN Q6HRS PRN Vitamin B-12 (Cyanocobalamin (Vitamin B-12)) 1,000 Mcg Tablet 1,000 Mcg PO DAILY Benztropine Mesylate 0.5 Mg Tablet 0.5 Mg PO BID Tylenol (Acetaminophen) 325 Mg Tablet 650 Mg PO PRN Q6HRS PRN Maalox Advanced Suspension (Mag Hydrox/Aluminum Hyd/Simeth) 355 Ml Oral.susp 15 Ml PO PRN AFTMEALHC PRN Analgesic [place] (Methyl Salicylate/Menthol) 28 Gm Oint...g. 1 Speedy TP PRN QID PRN [place] Carbonate 300 Mg Capsule 450 Mg PO QHS Benztropine Mesylate 0.5 Mg Tablet 0.5 Mg PO QHS Risperidone 1 Mg Tablet 1.5 Mg PO QHS Refresh Classic Eye Drops (Polyvinyl Alcohol/Povidone/Pf) 1 Each Droperette 1 Each OU TID Culturelle (Lactobacillus Rhamnosus Gg) 1 Each Cap.sprink 1 Each PO BID Trazodone Hcl 50 Mg Tablet 50 Mg PO PRN QHS PRN Trazodone Hcl 50 Mg Tablet 50 Mg PO HS Tegretol (Carbamazepine) 200 Mg Tablet 300 Mg PO BID Norvasc (Amlodipine Besylate) 5 Mg Tablet 5 Mg PO DAILY [place]-128 (Sodium Chloride) 15 Ml Drops 1 Drop OD HS Miralax (Polyethylene Glycol 3350) 17 Gm Powd.pack 17 Gm PO DAILY Milk Of Magnesia (Magnesium Hydroxide) 2,400 Mg/10 Ml Oral.susp 2,400 Mg PO PRN DAILY PRN [place] Carbonate 300 Mg Tablet 300 Mg PO DAILY Lipitor (Atorvastatin Calcium) 20 Mg Tablet 20 Mg PO QHS Levothyroxine Sodium 75 Mcg Tablet 75 Mcg PO DAILYAC Estrace (Estradiol) 42.5 Gm Cream.appl 1 Gm VG HS QMON/THURS Insert at bedtime on Friday and Vitamin D2 (Ergocalciferol (Vitamin D2)) 50,000 Unit Capsule 50,000 Unit PO WEEKLY Endocet 10-325 Mg Tablet (Oxycodone Hcl/Acetaminophen) 1 Each Tablet 1 Tab PO PRN Q6HRS PRN Tylenol (Acetaminophen) 325 Mg Tablet 650 Mg PO PRN Q6HRS PRN I have reviewed the current psychotropics carefully including drug interactions. Risk benefit ratio favors no change other than as noted in my dictated progress note. 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
[2018-03-17] MEDS: LEVOTHYROXINE 75 MCG TABLET PO SCH (04:59)
[2018-03-17 06:33] VITALS: BP 139/74
[2018-03-17] MEDS: CYANOCOBALAMIN (VITAMIN B-12) 1,000 MCG TABLET. PO SCH (08:06)
[2018-03-17] MEDS: amLODIPine BESYLATE 10 MG TABLET PO SCH (08:07)
[2018-03-17] MEDS: risperiDONE MICROSPHERES 25 MG/2 ML DISP.SYRIN. IM SCH (13:48)
[2018-03-17 16:06] VITALS: BP 140/76
[2018-03-17] MEDS: cloZAPine 100 MG TABLET PO SCH (17:22)
[2018-03-17] MEDS: ATORVASTATIN CALCIUM 20 MG TABLET PO SCH (17:22)
[2018-03-17] MEDS: DIVALPROEX ER 250 MG TAB.ER.24H. PO SCH (17:22)
[2018-03-17] MEDS: MIRTAZAPINE 15 MG TABLET PO SCH (17:23)
[2018-03-17] MEDS: risperiDONE 1 MG TABLET. PO SCH (17:23)
[2018-03-17] MEDS: traZODone 100 MG TABLET. PO SCH (17:24)
[2018-03-17] MEDS: DIVALPROEX ER 500 MG TAB.ER.24H PO SCH (17:24)
[2018-03-17] MEDS: SODIUM CHLORIDE 5% OPHTH OINTMENT 3.5GM TUBE. OD SCH (19:33)
--- NOTE | 2018-03-17 20:59 | PN ---
DATE: 03/16/2018 PSYCHIATRIC PROGRESS NOTE This late entry 03/16/2018 covers elements not covered in my initial note. SUBJECTIVE: I met with the patient in the evening at length in her room. The patient slept 8 hours previous night, was resistive to medications. Appetite is 50%. WBC is 4.5, neutrophils 50%. She remains somewhat paranoid, but more verbal. She still admits to being fearful consequent to the paranoia. REVIEW OF SYSTEMS: No CV, , pulmonary, eye, ENT system symptoms on review. MENTAL STATUS EXAM: Oriented to herself, situation. Speech, often responses monosyllabic. Abstraction fair, computation impaired, language function intact, attention span short. Mood and affect remain somewhat withdrawn. No suicidal or homicidal ideation. LABORATORY DATA: Reviewed. IMPRESSION: Schizoaffective disorder, bipolar type, mixed with psychotic features; anxiety disorder, unspecified; cognitive disorder, unspecified. PLAN: Increase Clozaril from 75 at bedtime to 100 mg at bedtime. Continue rest unchanged. Oral Risperdal, Risperdal Consta, Depakote is therapeutic. Adjust further as clinically indicated. MAN Rox WATT MD DR: SANCHEZ/fredrick JOB#: [id number] / [id number]
--- NOTE | 2018-03-17 23:11 | PDOC ---
Exam Note: Julian Note: Please also refer to the separate dictated note~for this date of service dictated separately.~Patient seen individually. Discussed the patient with Nursing staff reviewed the chart.~Reviewed interim history and current functioning. Reviewed vital signs,~Labs/ Radiology~and current medications noted below. Continue current treatment with the changes noted in the dictated addendum note Assessment: Vital Signs: Vital Signs Date Time Temp Pulse Resp B/P (MAP) Pulse Ox O2 Delivery O2 Flow Rate FiO2 03/17/18 16:06 98.9 102 19 140/76 (97) 95 Room Air I&O Intake and Output 03/17/18 07:00 Intake Total 1440 ml Balance 1440 ml Intake Oral 1440 ml # Voids 1 Current Medications: Meds: Current Medications Acetaminophen (Tylenol) 650 mg PRN Q6HRS PRN PO PAIN / TEMP; Start 02/12/18 at 21:45 Multi-Ingredient Ointment (Analgesic [place]) 1 speedy PRN QID PRN TP MUSCLE PAIN; Start 02/12/18 at 21:45 Al Hydroxide/Mg Hydroxide (Mylanta Plus Xs) 15 ml PRN AFTMEALHC PRN PO DYSPEPSIA; Start 02/12/18 at 21:45 Magnesium Hydroxide (Milk Of Magnesia) 2,400 mg PRN QHS PRN PO CONSTIPATION; Start 02/12/18 at 21:45 Carbamazepine (TEGretol) 150 mg BID PO ; Start 02/13/18 at 09:00; Stop 02/13/18 at 09:00; Status DC Carbamazepine (TEGretol) 300 mg BID PO Last administered on 02/21/18at 19:29; Start 02/13/18 at 09:00; Stop 02/21/18 at 23:54; Status DC Oxycodone/ Acetaminophen (Percocet 10/325) 1 tab PRN Q6HRS PRN PO PAIN Last administered on 02/23/18at 21:17; Start 02/12/18 at 22:30 Oxycodone/ Acetaminophen (Percocet 10/325) 1 tab PRN Q6HRS PRN PO PAIN; Start 02/12/18 at 22:30; Stop 02/12/18 at 22:40; Status DC Benztropine Mesylate (Cogentin) 0.5 mg BID PO Last administered on 02/17/18at 07 :25; Start 02/13/18 at 09:00; Stop 02/17/18 at 16:35; Status DC [place] Carbonate 300 mg DAILY PO Last administered on 02/18/18at 09:14; Start 02/13/18 at 09:00; Stop 02/19/18 at 11:29; Status DC [place] Carbonate 450 mg QHS PO Last administered on 02/17/18at 20:24; Start at 21:00; Stop 02/19/18 at 11:44; Status DC Risperidone (RisperDAL) 1 mg QHS PO Last administered on 02/13/18at 19:52; Start 02/13/18 at 21:00; Stop 02/14/18 at 19:16; Status DC Trazodone HCl (Desyrel) 50 mg QHS PO Last administered on 02/17/18at 20:24; Start 02/13/18 at 21:00; Stop 02/19/18 at 11:29; Status DC Acetaminophen (Tylenol) 650 mg PRN Q6HRS PRN PO PAIN / TEMP; Start 02/12/18 at 22:30; Stop 02/12/18 at 22:32; Status DC Atorvastatin Calcium (Lipitor) 20 mg QHS PO Last administered on 02/20/18at 20: 28; Start 02/13/18 at 21:00; Stop 02/21/18 at 23:54; Status DC Cyanocobalamin (Vitamin B-12) 1,000 mcg DAILY PO Last administered on at 08:06; Start 02/13/18 at 09:00 Estradiol (Estrace) 1 speedy HS VG ; Start 02/13/18 at 21:00; Stop 02/14/18 at 00: 47; Status DC Lactobacillus Rhamnosus (Culturelle) 1 cap BID PO Last administered on at 20:28; Start 02/13/18 at 09:00; Stop 02/21/18 at 23:54; Status DC Levothyroxine Sodium (Synthroid) 75 mcg DAILYAC PO Last administered on at 09:42; Start 02/13/18 at 07:30; Stop 02/13/18 at 11:19; Status DC Multi-Ingredient Ointment (Analgesic [place]) 1 speedy PRN QID PRN TP MUSCLE PAIN; Start 02/12/18 at 22:30; Status Cancel Sodium Chloride ([place]) 1 inch HS OD Last administered on 03/17/18at 19:33; Start 02/13/18 at 21:00 Sorbitol (Sorbitol Solution) 1 ml PRN DAILY PRN PO CONSTIPATION; Start at 22:30; Status Cancel Amlodipine Besylate (Norvasc) 5 mg DAILY PO Last administered on 02/19/18at 13: 30; Start 02/13/18 at 09:00; Stop 02/19/18 at 17:00; Status DC Vitamin D (Vitamin D3) 50,000 unit WEEKLY PO ; Start 02/19/18 at 09:00; Stop at 09:00; Status DC Non-Formulary Medication (Mag Hydrox/ Aluminum Hyd/ Simeth (Maalox Advanced Suspension)) 15 ml PRN AFTMEALHC PRN PO DYSPEPSIA; Start 02/12/18 at 22:30; Stop 02/12/18 at 22:41; Status DC Non-Formulary Medication (Magnesium Hydroxide (Milk Of Magnesia)) 2,400 mg PRN DAILY PRN PO CONSTIPATION; Start 02/12/18 at 22:30; Stop 02/12/18 at 22:41; Status DC Polyethylene Glycol (miraLAX) 17 gm DAILY PO Last administered on 02/18/18at 09: 15; Start 02/13/18 at 09:00; Stop 02/25/18 at 14:01; Status DC Artificial Tears (Refresh Classic) 1 drop TID OU Last administered on at 21:17; Start 02/13/18 at 09:00; Stop 02/25/18 at 14:01; Status DC Non-Formulary Medication (Sodium Chloride (Elmer-128)) 1 drop HS OD ; Start 02/13 at 21:00; Stop 02/13/18 at 21:00; Status DC Levothyroxine Sodium (Synthroid) 75 mcg DAILY06 PO Last administered on at 04:59; Start 02/14/18 at 06:00 Sorbitol (Sorbitol Solution) 30 ml PRN DAILY PRN PO CONSTIPATION; Start at 11:00 Estradiol (Estrace) 1 speedy QMTH VG Last administered on 03/12/18at 16:00; Start 02/16/18 at 21:00 Info (FLU VACCINE per PROTOCOL) 1 ea PRN 1X PRN MC PER PROTOCOL; Start at 09:00; Status UNV Risperidone (RisperDAL) 1.5 mg QHS PO Last administered on 02/21/18at 19:26; Start 02/14/18 at 21:00; Stop 02/21/18 at 23:54; Status DC Bupropion HCl (Wellbutrin Xl) 150 mg DAILY PO Last administered on 02/19/18at 13 :30; Start 02/15/18 at 09:00; Stop 02/19/18 at 16:58; Status DC Quetiapine Fumarate (SEROquel) 25 mg QHS PO Last administered on 02/17/18at 20: 28; Start 02/15/18 at 21:00; Stop 02/19/18 at 11:29; Status DC Hydroxyzine HCl (Atarax) 10 mg PRN Q2HR PRN PO anxiety Last administered on 02/23/18at 21:17; Start 02/16/18 at 16:30 Benztropine Mesylate (Cogentin) 0.5 mg DAILY PO Last administered on at 10:35; Start 02/18/18 at 09:00; Stop 03/04/18 at 18:50; Status DC Mirtazapine (Remeron) 7.5 mg QHS PO Last administered on 02/22/18at 17:16; Start 02/17/18 at 21:00; Stop 02/23/18 at 16:10; Status DC Trazodone HCl (Desyrel) 50 mg PRN QHS PRN PO SEE ADMIN INSTRUCTIONS; Start 02/17/18 at 16:45; Stop 02/19/18 at 11:29; Status DC Trazodone HCl (Desyrel) 100 mg QHS PO ; Start 02/19/18 at 21:00; Stop 02/19/18 at 21:00; Status DC Trazodone HCl (Desyrel) 100 mg PRN QHS PRN PO SEE ADMIN INSTRUCTIONS; Start at 11:30 Trazodone HCl (Desyrel) 100 mg QHS PO Last administered on 02/28/18at 19:53; Start 02/19/18 at 21:00; Stop 03/01/18 at 07:19; Status DC Amlodipine Besylate (Norvasc) 10 mg DAILY PO Last administered on 03/17/18at 08 :07; Start 02/20/18 at 09:00 Amlodipine Besylate (Norvasc) 5 mg 1X ONCE PO Last administered on 02/19/18at 17:11; Start 02/19/18 at 17:00; Stop 02/19/18 at 17:06; Status DC Atorvastatin Calcium (Lipitor) 20 mg DAILYWSUP PO Last administered on at 17:22; Start 02/22/18 at 17:00 Carbamazepine (TEGretol) 300 mg BIDWMEALS PO ; Start 02/22/18 at 17:00; Stop at 17:00; Status DC Lactobacillus Rhamnosus (Culturelle) 1 cap BIDWMEALS PO Last administered on at 07:38; Start 02/22/18 at 08:00; Stop 02/28/18 at 17:12; Status DC Risperidone (RisperDAL) 1.5 mg DAILYWSUP PO Last administered on 03/01/18at 16: 35; Start 02/22/18 at 17:00; Stop 03/01/18 at 18:37; Status DC Carbamazepine (TEGretol) 300 mg BIDWMEALS PO Last administered on 02/24/18at 17: 26; Start 02/22/18 at 08:00; Stop 02/25/18 at 09:39; Status DC Mirtazapine (Remeron) 15 mg QHS PO Last administered on 03/02/18at 17:07; Start 02/23/18 at 17:00; Stop 03/02/18 at 17:12; Status DC Divalproex Sodium (Depakote Er) 500 mg QHS PO Last administered on 02/28/18at 19:53; Start 02/25/18 at 21:00; Stop 03/01/18 at 07:19; Status DC Polyethylene Glycol (miraLAX) 17 gm PRN DAILY PRN PO CONSTIPATION; Start 02/25 at 14:00 Artificial Tears (Refresh Classic) 1 drop PRN TID PRN OU DRY EYE; Start at 14:00 Clozapine (Clozaril) 25 mg QHS PO Last administered on 02/28/18at 19:52; Start 02/25/18 at 21:00; Stop 03/01/18 at 07:19; Status DC Clozapine (Clozaril) 25 mg DAILY@1700 PO Last administered on 03/02/18at 17:07 ; Start 03/01/18 at 17:00; Stop 03/02/18 at 22:35; Status DC Divalproex Sodium (Depakote Er) 500 mg DAILY@1700 PO Last administered on 03/11at 16:18; Start 03/01/18 at 17:00; Stop 03/12/18 at 11:49; Status DC Trazodone HCl (Desyrel) 100 mg DAILY@1700 PO Last administered on 03/17/18at 17 :24; Start 03/01/18 at 17:00 Risperidone (RisperDAL CONSTA) 25 mg Q2WKS IM ; Start 03/02/18 at 09:00; Stop 03/02/18 at 09:00; Status DC Risperidone (RisperDAL) 1.5 mg DAILYWSUP SL Last administered on 03/02/18at 17: 14; Start 03/02/18 at 17:00; Stop 03/02/18 at 18:13; Status DC Risperidone (RisperDAL CONSTA) 25 mg Q2WKS IM Last administered on 03/17/18at 13:48; Start 03/03/18 at 09:00 Clotrimazole (Lotrimin Af) 1 speedy PRN BID PRN TP itching Last administered on at 09:55; Start 03/02/18 at 10:30 Nystatin (Nystop) 1 speedy PRN BID PRN TP YEAST INFECTION; Start 03/02/18 at 10: 30 Mirtazapine (Remeron) 15 mg DAILYWSUP PO Last administered on 03/17/18 17:23 ; Start 03/03/18 at 17:00 Risperidone (RisperDAL) 1.5 mg DAILYWSUP PO Last administered on 03/17/18 17: 23; Start 03/02/18 at 18:15 Clozapine (Clozaril) 50 mg DAILY@1700 PO Last administered on 03/08/18at 18:03 ; Start 03/03/18 at 17:00; Stop 03/09/18 at 16:53; Status DC Clozapine (Clozaril) 75 mg DAILY@1700 PO Last administered on 03/15/18at 17:11 ; Start 03/09/18 at 17:00; Stop 03/16/18 at 16:58; Status DC Divalproex Sodium (Depakote Er) 500 mg DAILY@1700 PO Last administered on 03/17at 17:24; Start 03/12/18 at 17:00 Divalproex Sodium (Depakote Er) 250 mg DAILY@1700 PO Last administered on 03/17at 17:22; Start 03/12/18 at 17:00 Clozapine (Clozaril) 100 mg DAILY@1700 PO Last administered on 03/17/18at 17:22 ; Start 03/16/18 at 17:15 Active Scripts Active Reported Sorbitol (Sorbitol Solution) 1 Ml Solution 30 Ml PO PRN DAILY PRN Trazodone Hcl 50 Mg Tablet 50 Mg PO QHS Tegretol (Carbamazepine) 200 Mg Tablet 150 Mg PO BID Risperidone 1 Mg Tablet 1 Mg PO QHS Norvasc (Amlodipine Besylate) 5 Mg Tablet 5 Mg PO DAILY Emler-128 (Sodium Chloride) 3.5 Gm Oint...g. 1 Speedy OP HS Miralax (Polyethylene Glycol 3350) 17 Gm Powd.pack 17 Gm PO DAILY Milk Of Magnesia (Magnesium Hydroxide) 2,400 Mg/10 Ml Oral.susp 30 Ml PO PRN DAILY PRN [place] Carbonate 450 Mg Tablet.er 450 Mg PO HS [place] Carbonate 150 Mg Capsule 300 Mg PO DAILY Lipitor (Atorvastatin Calcium) 20 Mg Tablet 20 Mg PO QHS Levothyroxine Sodium 75 Mcg Tablet 75 Mcg PO DAILYAC Estrace (Estradiol) 42.5 Gm Cream.appl 1 Speedy VG 2X WEEK Q MON, THURS Vitamin D2 (Ergocalciferol (Vitamin D2)) 50,000 Unit Capsule 50,000 Unit PO WEEKLY Endocet 10-325 Mg Tablet (Oxycodone Hcl/Acetaminophen) 1 Each Tablet 1 Each PO PRN Q6HRS PRN Vitamin B-12 (Cyanocobalamin (Vitamin B-12)) 1,000 Mcg Tablet 1,000 Mcg PO DAILY Benztropine Mesylate 0.5 Mg Tablet 0.5 Mg PO BID Tylenol (Acetaminophen) 325 Mg Tablet 650 Mg PO PRN Q6HRS PRN Maalox Advanced Suspension (Mag Hydrox/Aluminum Hyd/Simeth) 355 Ml Oral.susp 15 Ml PO PRN AFTMEALHC PRN Analgesic [place] (Methyl Salicylate/Menthol) 28 Gm Oint...g. 1 Speedy TP PRN QID PRN [place] Carbonate 300 Mg Capsule 450 Mg PO QHS Benztropine Mesylate 0.5 Mg Tablet 0.5 Mg PO QHS Risperidone 1 Mg Tablet 1.5 Mg PO QHS Refresh Classic Eye Drops (Polyvinyl Alcohol/Povidone/Pf) 1 Each Droperette 1 Each OU TID Culturelle (Lactobacillus Rhamnosus Gg) 1 Each Cap.sprink 1 Each PO BID Trazodone Hcl 50 Mg Tablet 50 Mg PO PRN QHS PRN Trazodone Hcl 50 Mg Tablet 50 Mg PO HS Tegretol (Carbamazepine) 200 Mg Tablet 300 Mg PO BID Norvasc (Amlodipine Besylate) 5 Mg Tablet 5 Mg PO DAILY [place]-128 (Sodium Chloride) 15 Ml Drops 1 Drop OD HS Miralax (Polyethylene Glycol 3350) 17 Gm Powd.pack 17 Gm PO DAILY Milk Of Magnesia (Magnesium Hydroxide) 2,400 Mg/10 Ml Oral.susp 2,400 Mg PO PRN DAILY PRN [place] Carbonate 300 Mg Tablet 300 Mg PO DAILY Lipitor (Atorvastatin Calcium) 20 Mg Tablet 20 Mg PO QHS Levothyroxine Sodium 75 Mcg Tablet 75 Mcg PO DAILYAC Estrace (Estradiol) 42.5 Gm Cream.appl 1 Gm VG HS QMON/ Insert at bedtime on Friday and Vitamin D2 (Ergocalciferol (Vitamin D2)) 50,000 Unit Capsule 50,000 Unit PO WEEKLY Endocet 10-325 Mg Tablet (Oxycodone Hcl/Acetaminophen) 1 Each Tablet 1 Tab PO PRN Q6HRS PRN Tylenol (Acetaminophen) 325 Mg Tablet 650 Mg PO PRN Q6HRS PRN I have reviewed the current psychotropics carefully including drug interactions. Risk benefit ratio favors no change other than as noted in my dictated progress note. 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
[2018-03-18 05:49] VITALS: BP 142/86
[2018-03-18] MEDS: LEVOTHYROXINE 75 MCG TABLET PO SCH (06:20)
[2018-03-18] MEDS: amLODIPine BESYLATE 10 MG TABLET PO SCH (07:46)
[2018-03-18] MEDS: CYANOCOBALAMIN (VITAMIN B-12) 1,000 MCG TABLET. PO SCH (07:46)
[2018-03-18 16:37] VITALS: BP 135/76
[2018-03-18] MEDS: DIVALPROEX ER 500 MG TAB.ER.24H PO SCH (17:14)
[2018-03-18] MEDS: risperiDONE 1 MG TABLET. PO SCH (17:14)
[2018-03-18] MEDS: DIVALPROEX ER 250 MG TAB.ER.24H. PO SCH (17:14)
[2018-03-18] MEDS: ATORVASTATIN CALCIUM 20 MG TABLET PO SCH (17:15)
[2018-03-18] MEDS: traZODone 100 MG TABLET. PO SCH (17:15)
[2018-03-18] MEDS: MIRTAZAPINE 15 MG TABLET PO SCH (17:15)
[2018-03-18] MEDS: cloZAPine 100 MG TABLET PO SCH (17:15)
[2018-03-18] MEDS: SODIUM CHLORIDE 5% OPHTH OINTMENT 3.5GM TUBE. OD SCH (21:00)
--- NOTE | 2018-03-18 22:07 | PN ---
DATE: 03/17/2018 PSYCHIATRIC PROGRESS NOTE This late entry 03/17/2018 covers elements not covered in my initial note. SUBJECTIVE: I met with the patient in the evening at length in her room. Per nursing report, the patient slept 8 hours previous night, compliant with medication, somewhat withdrawn. REVIEW OF SYSTEMS: No CV, , pulmonary, eye system symptoms on review. Reliability fair. MENTAL STATUS EXAM: Oriented to herself and situation. Speech, often responses monosyllabic. Abstraction fair, computation impaired, language function intact. Attention span short. She was eating a bag of chips and repeatedly asking me if it was healthy "I like it." She is more verbal than she was initially in the hospitalization. LABORATORY DATA: Reviewed. IMPRESSION: Schizoaffective disorder, bipolar type, mixed with psychotic features; anxiety disorder, unspecified; impulse control disorder, unspecified. PLAN: Valproic acid level 68; AST, ALT unremarkable. Clozaril was increased. Maintain rest of the psychotropics per initial note. MAN Rox WATT MD DR: SANCHEZ/fredrick JOB#: [id number] / [id number]
--- NOTE | 2018-03-18 23:24 | PDOC ---
Exam Note: Julian Note: Please also refer to the separate dictated note~for this date of service dictated separately.~Patient seen individually. Discussed the patient with Nursing staff reviewed the chart.~Reviewed interim history and current functioning. Reviewed vital signs,~Labs/ Radiology~and current medications noted below. Continue current treatment with the changes noted in the dictated addendum note Assessment: Vital Signs: Vital Signs Date Time Temp Pulse Resp B/P (MAP) Pulse Ox O2 Delivery O2 Flow Rate FiO2 03/18/18 16:37 98.6 100 16 135/76 (95) 98 03/17/18 16:06 Room Air I&O Intake and Output 03/18/18 07:00 Intake Total 840 ml Balance 840 ml Intake Oral 840 ml Current Medications: Meds: Current Medications Acetaminophen (Tylenol) 650 mg PRN Q6HRS PRN PO PAIN / TEMP; Start 02/12/18 at 21:45 Multi-Ingredient Ointment (Analgesic [place]) 1 speedy PRN QID PRN TP MUSCLE PAIN; Start 02/12/18 at 21:45 Al Hydroxide/Mg Hydroxide (Mylanta Plus Xs) 15 ml PRN AFTMEALHC PRN PO DYSPEPSIA; Start 02/12/18 at 21:45 Magnesium Hydroxide (Milk Of Magnesia) 2,400 mg PRN QHS PRN PO CONSTIPATION; Start 02/12/18 at 21:45 Carbamazepine (TEGretol) 150 mg BID PO ; Start 02/13/18 at 09:00; Stop 02/13/18 at 09:00; Status DC Carbamazepine (TEGretol) 300 mg BID PO Last administered on 02/21/18at 19:29; Start 02/13/18 at 09:00; Stop 02/21/18 at 23:54; Status DC Oxycodone/ Acetaminophen (Percocet 10/325) 1 tab PRN Q6HRS PRN PO PAIN Last administered on 02/23/18at 21:17; Start 02/12/18 at 22:30 Oxycodone/ Acetaminophen (Percocet 10/325) 1 tab PRN Q6HRS PRN PO PAIN; Start 02/12/18 at 22:30; Stop 02/12/18 at 22:40; Status DC Benztropine Mesylate (Cogentin) 0.5 mg BID PO Last administered on 02/17/18 07 :25; Start 02/13/18 at 09:00; Stop 02/17/18 at 16:35; Status DC [place] Carbonate 300 mg DAILY PO Last administered on 02/18/18at 09:14; Start 02/13/18 at 09:00; Stop 02/19/18 at 11:29; Status DC [place] Carbonate 450 mg QHS PO Last administered on 02/17/18 20:24; Start at 21:00; Stop 02/19/18 at 11:44; Status DC Risperidone (RisperDAL) 1 mg QHS PO Last administered on 02/13/18at 19:52; Start 02/13/18 at 21:00; Stop 02/14/18 at 19:16; Status DC Trazodone HCl (Desyrel) 50 mg QHS PO Last administered on 02/17/18 20:24; Start 02/13/18 at 21:00; Stop 02/19/18 at 11:29; Status DC Acetaminophen (Tylenol) 650 mg PRN Q6HRS PRN PO PAIN / TEMP; Start 02/12/18 at 22:30; Stop 02/12/18 at 22:32; Status DC Atorvastatin Calcium (Lipitor) 20 mg QHS PO Last administered on 02/20/18at 20: 28; Start 02/13/18 at 21:00; Stop 02/21/18 at 23:54; Status DC Cyanocobalamin (Vitamin B-12) 1,000 mcg DAILY PO Last administered on at 07:46; Start 02/13/18 at 09:00 Estradiol (Estrace) 1 speedy HS VG ; Start 02/13/18 at 21:00; Stop 02/14/18 at 00: 47; Status DC Lactobacillus Rhamnosus (Culturelle) 1 cap BID PO Last administered on 20:28; Start 02/13/18 at 09:00; Stop 02/21/18 at 23:54; Status DC Levothyroxine Sodium (Synthroid) 75 mcg DAILYAC PO Last administered on at 09:42; Start 02/13/18 at 07:30; Stop 02/13/18 at 11:19; Status DC Multi-Ingredient Ointment (Analgesic [place]) 1 speedy PRN QID PRN TP MUSCLE PAIN; Start 02/12/18 at 22:30; Status Cancel Sodium Chloride ([place]) 1 inch HS OD Last administered on 03/17/18at 19:33; Start 02/13/18 at 21:00 Sorbitol (Sorbitol Solution) 1 ml PRN DAILY PRN PO CONSTIPATION; Start at 22:30; Status Cancel Amlodipine Besylate (Norvasc) 5 mg DAILY PO Last administered on 02/19/18at 13: 30; Start 02/13/18 at 09:00; Stop 02/19/18 at 17:00; Status DC Vitamin D (Vitamin D3) 50,000 unit WEEKLY PO ; Start 02/19/18 at 09:00; Stop at 09:00; Status DC Non-Formulary Medication (Mag Hydrox/ Aluminum Hyd/ Simeth (Maalox Advanced Suspension)) 15 ml PRN AFTMEALHC PRN PO DYSPEPSIA; Start 02/12/18 at 22:30; Stop 02/12/18 at 22:41; Status DC Non-Formulary Medication (Magnesium Hydroxide (Milk Of Magnesia)) 2,400 mg PRN DAILY PRN PO CONSTIPATION; Start 02/12/18 at 22:30; Stop 02/12/18 at 22:41; Status DC Polyethylene Glycol (miraLAX) 17 gm DAILY PO Last administered on 02/18/18at 09: 15; Start 02/13/18 at 09:00; Stop 02/25/18 at 14:01; Status DC Artificial Tears (Refresh Classic) 1 drop TID OU Last administered on at 21:17; Start 02/13/18 at 09:00; Stop 02/25/18 at 14:01; Status DC Non-Formulary Medication (Sodium Chloride (Elmer-128)) 1 drop HS OD ; Start 02/13 at 21:00; Stop 02/13/18 at 21:00; Status DC Levothyroxine Sodium (Synthroid) 75 mcg DAILY06 PO Last administered on at 06:20; Start 02/14/18 at 06:00 Sorbitol (Sorbitol Solution) 30 ml PRN DAILY PRN PO CONSTIPATION; Start at 11:00 Estradiol (Estrace) 1 speedy QMTH VG Last administered on 03/12/18at 16:00; Start 02/16/18 at 21:00 Info (FLU VACCINE per PROTOCOL) 1 ea PRN 1X PRN MC PER PROTOCOL; Start at 09:00; Status UNV Risperidone (RisperDAL) 1.5 mg QHS PO Last administered on 02/21/18at 19:26; Start 02/14/18 at 21:00; Stop 02/21/18 at 23:54; Status DC Bupropion HCl (Wellbutrin Xl) 150 mg DAILY PO Last administered on 02/19/18at 13 :30; Start 02/15/18 at 09:00; Stop 02/19/18 at 16:58; Status DC Quetiapine Fumarate (SEROquel) 25 mg QHS PO Last administered on 02/17/18at 20: 28; Start 02/15/18 at 21:00; Stop 02/19/18 at 11:29; Status DC Hydroxyzine HCl (Atarax) 10 mg PRN Q2HR PRN PO anxiety Last administered on 02/23/18at 21:17; Start 02/16/18 at 16:30 Benztropine Mesylate (Cogentin) 0.5 mg DAILY PO Last administered on at 10:35; Start 02/18/18 at 09:00; Stop 03/04/18 at 18:50; Status DC Mirtazapine (Remeron) 7.5 mg QHS PO Last administered on 02/22/18at 17:16; Start 02/17/18 at 21:00; Stop 02/23/18 at 16:10; Status DC Trazodone HCl (Desyrel) 50 mg PRN QHS PRN PO SEE ADMIN INSTRUCTIONS; Start 02/17/18 at 16:45; Stop 02/19/18 at 11:29; Status DC Trazodone HCl (Desyrel) 100 mg QHS PO ; Start 02/19/18 at 21:00; Stop 02/19/18 at 21:00; Status DC Trazodone HCl (Desyrel) 100 mg PRN QHS PRN PO SEE ADMIN INSTRUCTIONS; Start at 11:30 Trazodone HCl (Desyrel) 100 mg QHS PO Last administered on 02/28/18at 19:53; Start 02/19/18 at 21:00; Stop 03/01/18 at 07:19; Status DC Amlodipine Besylate (Norvasc) 10 mg DAILY PO Last administered on 03/18/18at 07 :46; Start 02/20/18 at 09:00 Amlodipine Besylate (Norvasc) 5 mg 1X ONCE PO Last administered on 02/19/18at 17:11; Start 02/19/18 at 17:00; Stop 02/19/18 at 17:06; Status DC Atorvastatin Calcium (Lipitor) 20 mg DAILYWSUP PO Last administered on at 17:15; Start 02/22/18 at 17:00 Carbamazepine (TEGretol) 300 mg BIDWMEALS PO ; Start 02/22/18 at 17:00; Stop at 17:00; Status DC Lactobacillus Rhamnosus (Culturelle) 1 cap BIDWMEALS PO Last administered on at 07:38; Start 02/22/18 at 08:00; Stop 02/28/18 at 17:12; Status DC Risperidone (RisperDAL) 1.5 mg DAILYWSUP PO Last administered on 03/01/18at 16: 35; Start 02/22/18 at 17:00; Stop 03/01/18 at 18:37; Status DC Carbamazepine (TEGretol) 300 mg BIDWMEALS PO Last administered on 02/24/18at 17: 26; Start 02/22/18 at 08:00; Stop 02/25/18 at 09:39; Status DC Mirtazapine (Remeron) 15 mg QHS PO Last administered on 03/02/18at 17:07; Start 02/23/18 at 17:00; Stop 03/02/18 at 17:12; Status DC Divalproex Sodium (Depakote Er) 500 mg QHS PO Last administered on 02/28/18at 19:53; Start 02/25/18 at 21:00; Stop 03/01/18 at 07:19; Status DC Polyethylene Glycol (miraLAX) 17 gm PRN DAILY PRN PO CONSTIPATION; Start 02/25 at 14:00 Artificial Tears (Refresh Classic) 1 drop PRN TID PRN OU DRY EYE; Start at 14:00 Clozapine (Clozaril) 25 mg QHS PO Last administered on 02/28/18at 19:52; Start 02/25/18 at 21:00; Stop 03/01/18 at 07:19; Status DC Clozapine (Clozaril) 25 mg DAILY@1700 PO Last administered on 03/02/18at 17:07 ; Start 03/01/18 at 17:00; Stop 03/02/18 at 22:35; Status DC Divalproex Sodium (Depakote Er) 500 mg DAILY@1700 PO Last administered on 03/11at 16:18; Start 03/01/18 at 17:00; Stop 03/12/18 at 11:49; Status DC Trazodone HCl (Desyrel) 100 mg DAILY@1700 PO Last administered on 03/18/18at 17 :15; Start 03/01/18 at 17:00 Risperidone (RisperDAL CONSTA) 25 mg Q2WKS IM ; Start 03/02/18 at 09:00; Stop 03/02/18 at 09:00; Status DC Risperidone (RisperDAL) 1.5 mg DAILYWSUP SL Last administered on 03/02/18at 17: 14; Start 03/02/18 at 17:00; Stop 03/02/18 at 18:13; Status DC Risperidone (RisperDAL CONSTA) 25 mg Q2WKS IM Last administered on 03/17/18at 13:48; Start 03/03/18 at 09:00 Clotrimazole (Lotrimin Af) 1 speedy PRN BID PRN TP itching Last administered on at 09:55; Start 03/02/18 at 10:30 Nystatin (Nystop) 1 speedy PRN BID PRN TP YEAST INFECTION; Start 03/02/18 at 10: 30 Mirtazapine (Remeron) 15 mg DAILYWSUP PO Last administered on 03/18/18at 17:15 ; Start 03/03/18 at 17:00 Risperidone (RisperDAL) 1.5 mg DAILYWSUP PO Last administered on 03/18/18at 17: 14; Start 03/02/18 at 18:15 Clozapine (Clozaril) 50 mg DAILY@1700 PO Last administered on 03/08/18at 18:03 ; Start 03/03/18 at 17:00; Stop 03/09/18 at 16:53; Status DC Clozapine (Clozaril) 75 mg DAILY@1700 PO Last administered on 03/15/18at 17:11 ; Start 03/09/18 at 17:00; Stop 03/16/18 at 16:58; Status DC Divalproex Sodium (Depakote Er) 500 mg DAILY@1700 PO Last administered on 03/18at 17:14; Start 03/12/18 at 17:00 Divalproex Sodium (Depakote Er) 250 mg DAILY@1700 PO Last administered on 03/18at 17:14; Start 03/12/18 at 17:00 Clozapine (Clozaril) 100 mg DAILY@1700 PO Last administered on 03/18/18at 17:15 ; Start 03/16/18 at 17:15 Active Scripts Active Reported Sorbitol (Sorbitol Solution) 1 Ml Solution 30 Ml PO PRN DAILY PRN Trazodone Hcl 50 Mg Tablet 50 Mg PO QHS Tegretol (Carbamazepine) 200 Mg Tablet 150 Mg PO BID Risperidone 1 Mg Tablet 1 Mg PO QHS Norvasc (Amlodipine Besylate) 5 Mg Tablet 5 Mg PO DAILY [place]-128 (Sodium Chloride) 3.5 Gm Oint...g. 1 Speedy OP HS Miralax (Polyethylene Glycol 3350) 17 Gm Powd.pack 17 Gm PO DAILY Milk Of Magnesia (Magnesium Hydroxide) 2,400 Mg/10 Ml Oral.susp 30 Ml PO PRN DAILY PRN [place] Carbonate 450 Mg Tablet.er 450 Mg PO HS [place] Carbonate 150 Mg Capsule 300 Mg PO DAILY Lipitor (Atorvastatin Calcium) 20 Mg Tablet 20 Mg PO QHS Levothyroxine Sodium 75 Mcg Tablet 75 Mcg PO DAILYAC Estrace (Estradiol) 42.5 Gm Cream.appl 1 Speedy VG 2X WEEK Q MON, THURS Vitamin D2 (Ergocalciferol (Vitamin D2)) 50,000 Unit Capsule 50,000 Unit PO WEEKLY Endocet 10-325 Mg Tablet (Oxycodone Hcl/Acetaminophen) 1 Each Tablet 1 Each PO PRN Q6HRS PRN Vitamin B-12 (Cyanocobalamin (Vitamin B-12)) 1,000 Mcg Tablet 1,000 Mcg PO DAILY Benztropine Mesylate 0.5 Mg Tablet 0.5 Mg PO BID Tylenol (Acetaminophen) 325 Mg Tablet 650 Mg PO PRN Q6HRS PRN Maalox Advanced Suspension (Mag Hydrox/Aluminum Hyd/Simeth) 355 Ml Oral.susp 15 Ml PO PRN AFTMEALHC PRN Analgesic [place] (Methyl Salicylate/Menthol) 28 Gm Oint...g. 1 Speedy TP PRN QID PRN [place] Carbonate 300 Mg Capsule 450 Mg PO QHS Benztropine Mesylate 0.5 Mg Tablet 0.5 Mg PO QHS Risperidone 1 Mg Tablet 1.5 Mg PO QHS Refresh Classic Eye Drops (Polyvinyl Alcohol/Povidone/Pf) 1 Each Droperette 1 Each OU TID Culturelle (Lactobacillus Rhamnosus Gg) 1 Each Cap.sprink 1 Each PO BID Trazodone Hcl 50 Mg Tablet 50 Mg PO PRN QHS PRN Trazodone Hcl 50 Mg Tablet 50 Mg PO HS Tegretol (Carbamazepine) 200 Mg Tablet 300 Mg PO BID Norvasc (Amlodipine Besylate) 5 Mg Tablet 5 Mg PO DAILY [place]-128 (Sodium Chloride) 15 Ml Drops 1 Drop OD HS Miralax (Polyethylene Glycol 3350) 17 Gm Powd.pack 17 Gm PO DAILY Milk Of Magnesia (Magnesium Hydroxide) 2,400 Mg/10 Ml Oral.susp 2,400 Mg PO PRN DAILY PRN [place] Carbonate 300 Mg Tablet 300 Mg PO DAILY Lipitor (Atorvastatin Calcium) 20 Mg Tablet 20 Mg PO QHS Levothyroxine Sodium 75 Mcg Tablet 75 Mcg PO DAILYAC Estrace (Estradiol) 42.5 Gm Cream.appl 1 Gm VG HS QMON/ Insert at bedtime on Friday and Vitamin D2 (Ergocalciferol (Vitamin D2)) 50,000 Unit Capsule 50,000 Unit PO WEEKLY Endocet 10-325 Mg Tablet (Oxycodone Hcl/Acetaminophen) 1 Each Tablet 1 Tab PO PRN Q6HRS PRN Tylenol (Acetaminophen) 325 Mg Tablet 650 Mg PO PRN Q6HRS PRN I have reviewed the current psychotropics carefully including drug interactions. Risk benefit ratio favors no change other than as noted in my dictated progress note. 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
[2018-03-19 05:42] VITALS: BP 127/80
[2018-03-19] MEDS: LEVOTHYROXINE 75 MCG TABLET PO SCH (06:17)
[2018-03-19] MEDS: CYANOCOBALAMIN (VITAMIN B-12) 1,000 MCG TABLET. PO SCH (08:14)
[2018-03-19] MEDS: amLODIPine BESYLATE 10 MG TABLET PO SCH (08:14)
[2018-03-19] MEDS: ESTRADIOL 0.01% VAGINAL CREAM 42.5GM TUBE. VG SCH (16:00)
[2018-03-19 16:11] VITALS: BP 127/67
[2018-03-19] MEDS: cloZAPine 100 MG TABLET PO SCH (16:48)
[2018-03-19] MEDS: DIVALPROEX ER 500 MG TAB.ER.24H PO SCH (16:49)
[2018-03-19] MEDS: DIVALPROEX ER 250 MG TAB.ER.24H. PO SCH (16:49)
[2018-03-19] MEDS: traZODone 100 MG TABLET. PO SCH (16:50)
[2018-03-19] MEDS: MIRTAZAPINE 15 MG TABLET PO SCH (16:51)
[2018-03-19] MEDS: risperiDONE 1 MG TABLET. PO SCH (16:51)
[2018-03-19] MEDS: ATORVASTATIN CALCIUM 20 MG TABLET PO SCH (16:52)
[2018-03-19] MEDS: SODIUM CHLORIDE 5% OPHTH OINTMENT 3.5GM TUBE. OD SCH (20:28)
--- NOTE | 2018-03-19 20:34 | PN ---
DATE: 03/18/2018 PSYCHIATRIC PROGRESS NOTE This late entry 03/18/2018 covers elements not covered in my initial note. SUBJECTIVE: I met with the patient in the evening. The patient slept 7 hours previous night. She has been somewhat better conversing better with staff, somewhat sedated during the day, compliant with medications. I met with her at some length in her room. REVIEW OF SYSTEMS: No CV, , pulmonary, eye, ENT system symptoms on review. MENTAL STATUS EXAM: Oriented to herself and situation. Speech, often responses monosyllabic pressured. Abstraction fair, computation impaired, language function intact. Attention span short. She is still somewhat paranoid, fearful, but much improved. LABORATORY DATA: Reviewed. IMPRESSION: Bipolar 1 disorder, mixed with psychotic features, in partial remission. Rest unchanged from initial note. PLAN: Continue current psychotropics. Clozaril has been increased, Risperdal 1.5 mg at bedtime, still remains on Risperdal Consta, which we may stop in due course. Valproic acid level therapeutic at 68. MAN Rox WATT MD DR: SANCHEZ/fredrick JOB#: [id number] / [id number]
--- NOTE | 2018-03-19 23:12 | PDOC ---
Exam Note: Julian Note: Please also refer to the separate dictated note~for this date of service dictated separately.~Patient seen individually. Discussed the patient with Nursing staff reviewed the chart.~Reviewed interim history and current functioning. Reviewed vital signs,~Labs/ Radiology~and current medications noted below. Continue current treatment with the changes noted in the dictated addendum note Assessment: Vital Signs: Vital Signs Date Time Temp Pulse Resp B/P (MAP) Pulse Ox O2 Delivery O2 Flow Rate FiO2 03/19/18 16:11 98.0 96 20 127/67 (87) 98 Room Air I&O Intake and Output 03/19/18 07:00 Intake Total 1280 ml Balance 1280 ml Intake Oral 1280 ml Current Medications: Meds: Current Medications Acetaminophen (Tylenol) 650 mg PRN Q6HRS PRN PO PAIN / TEMP; Start 02/12/18 at 21:45 Multi-Ingredient Ointment (Analgesic [place]) 1 speedy PRN QID PRN TP MUSCLE PAIN; Start 02/12/18 at 21:45 Al Hydroxide/Mg Hydroxide (Mylanta Plus Xs) 15 ml PRN AFTMEALHC PRN PO DYSPEPSIA; Start 02/12/18 at 21:45 Magnesium Hydroxide (Milk Of Magnesia) 2,400 mg PRN QHS PRN PO CONSTIPATION; Start 02/12/18 at 21:45 Carbamazepine (TEGretol) 150 mg BID PO ; Start 02/13/18 at 09:00; Stop 02/13/18 at 09:00; Status DC Carbamazepine (TEGretol) 300 mg BID PO Last administered on 02/21/18at 19:29; Start 02/13/18 at 09:00; Stop 02/21/18 at 23:54; Status DC Oxycodone/ Acetaminophen (Percocet 10/325) 1 tab PRN Q6HRS PRN PO PAIN Last administered on 02/23/18at 21:17; Start 02/12/18 at 22:30 Oxycodone/ Acetaminophen (Percocet 10/325) 1 tab PRN Q6HRS PRN PO PAIN; Start 02/12/18 at 22:30; Stop 02/12/18 at 22:40; Status DC Benztropine Mesylate (Cogentin) 0.5 mg BID PO Last administered on 02/17/18at 07 :25; Start 02/13/18 at 09:00; Stop 02/17/18 at 16:35; Status DC [place] Carbonate 300 mg DAILY PO Last administered on 02/18/18at 09:14; Start 02/13/18 at 09:00; Stop 02/19/18 at 11:29; Status DC [place] Carbonate 450 mg QHS PO Last administered on 02/17/18at 20:24; Start at 21:00; Stop 02/19/18 at 11:44; Status DC Risperidone (RisperDAL) 1 mg QHS PO Last administered on 02/13/18at 19:52; Start 02/13/18 at 21:00; Stop 02/14/18 at 19:16; Status DC Trazodone HCl (Desyrel) 50 mg QHS PO Last administered on 02/17/18at 20:24; Start 02/13/18 at 21:00; Stop 02/19/18 at 11:29; Status DC Acetaminophen (Tylenol) 650 mg PRN Q6HRS PRN PO PAIN / TEMP; Start 02/12/18 at 22:30; Stop 02/12/18 at 22:32; Status DC Atorvastatin Calcium (Lipitor) 20 mg QHS PO Last administered on 02/20/18at 20: 28; Start 02/13/18 at 21:00; Stop 02/21/18 at 23:54; Status DC Cyanocobalamin (Vitamin B-12) 1,000 mcg DAILY PO Last administered on at 08:14; Start 02/13/18 at 09:00 Estradiol (Estrace) 1 speedy HS VG ; Start 02/13/18 at 21:00; Stop 02/14/18 at 00: 47; Status DC Lactobacillus Rhamnosus (Culturelle) 1 cap BID PO Last administered on at 20:28; Start 02/13/18 at 09:00; Stop 02/21/18 at 23:54; Status DC Levothyroxine Sodium (Synthroid) 75 mcg DAILYAC PO Last administered on at 09:42; Start 02/13/18 at 07:30; Stop 02/13/18 at 11:19; Status DC Multi-Ingredient Ointment (Analgesic [place]) 1 speedy PRN QID PRN TP MUSCLE PAIN; Start 02/12/18 at 22:30; Status Cancel Sodium Chloride ([place]) 1 inch HS OD Last administered on 03/17/18at 19:33; Start 02/13/18 at 21:00 Sorbitol (Sorbitol Solution) 1 ml PRN DAILY PRN PO CONSTIPATION; Start at 22:30; Status Cancel Amlodipine Besylate (Norvasc) 5 mg DAILY PO Last administered on 02/19/18at 13: 30; Start 02/13/18 at 09:00; Stop 02/19/18 at 17:00; Status DC Vitamin D (Vitamin D3) 50,000 unit WEEKLY PO ; Start 02/19/18 at 09:00; Stop at 09:00; Status DC Non-Formulary Medication (Mag Hydrox/ Aluminum Hyd/ Simeth (Maalox Advanced Suspension)) 15 ml PRN AFTMEALHC PRN PO DYSPEPSIA; Start 02/12/18 at 22:30; Stop 02/12/18 at 22:41; Status DC Non-Formulary Medication (Magnesium Hydroxide (Milk Of Magnesia)) 2,400 mg PRN DAILY PRN PO CONSTIPATION; Start 02/12/18 at 22:30; Stop 02/12/18 at 22:41; Status DC Polyethylene Glycol (miraLAX) 17 gm DAILY PO Last administered on 02/18/18at 09: 15; Start 02/13/18 at 09:00; Stop 02/25/18 at 14:01; Status DC Artificial Tears (Refresh Classic) 1 drop TID OU Last administered on at 21:17; Start 02/13/18 at 09:00; Stop 02/25/18 at 14:01; Status DC Non-Formulary Medication (Sodium Chloride (Elmer-128)) 1 drop HS OD ; Start 02/13 at 21:00; Stop 02/13/18 at 21:00; Status DC Levothyroxine Sodium (Synthroid) 75 mcg DAILY06 PO Last administered on at 06:17; Start 02/14/18 at 06:00 Sorbitol (Sorbitol Solution) 30 ml PRN DAILY PRN PO CONSTIPATION; Start at 11:00 Estradiol (Estrace) 1 speedy QMTH VG Last administered on 03/12/18at 16:00; Start 02/16/18 at 21:00 Info (FLU VACCINE per PROTOCOL) 1 ea PRN 1X PRN MC PER PROTOCOL; Start at 09:00; Status UNV Risperidone (RisperDAL) 1.5 mg QHS PO Last administered on 02/21/18at 19:26; Start 02/14/18 at 21:00; Stop 02/21/18 at 23:54; Status DC Bupropion HCl (Wellbutrin Xl) 150 mg DAILY PO Last administered on 02/19/18at 13 :30; Start 02/15/18 at 09:00; Stop 02/19/18 at 16:58; Status DC Quetiapine Fumarate (SEROquel) 25 mg QHS PO Last administered on 02/17/18at 20: 28; Start 02/15/18 at 21:00; Stop 02/19/18 at 11:29; Status DC Hydroxyzine HCl (Atarax) 10 mg PRN Q2HR PRN PO anxiety Last administered on 02/23/18at 21:17; Start 02/16/18 at 16:30 Benztropine Mesylate (Cogentin) 0.5 mg DAILY PO Last administered on at 10:35; Start 02/18/18 at 09:00; Stop 03/04/18 at 18:50; Status DC Mirtazapine (Remeron) 7.5 mg QHS PO Last administered on 02/22/18at 17:16; Start 02/17/18 at 21:00; Stop 02/23/18 at 16:10; Status DC Trazodone HCl (Desyrel) 50 mg PRN QHS PRN PO SEE ADMIN INSTRUCTIONS; Start 02/17/18 at 16:45; Stop 02/19/18 at 11:29; Status DC Trazodone HCl (Desyrel) 100 mg QHS PO ; Start 02/19/18 at 21:00; Stop 02/19/18 at 21:00; Status DC Trazodone HCl (Desyrel) 100 mg PRN QHS PRN PO SEE ADMIN INSTRUCTIONS; Start at 11:30 Trazodone HCl (Desyrel) 100 mg QHS PO Last administered on 02/28/18at 19:53; Start 02/19/18 at 21:00; Stop 03/01/18 at 07:19; Status DC Amlodipine Besylate (Norvasc) 10 mg DAILY PO Last administered on 03/19/18at 08: 14; Start 02/20/18 at 09:00 Amlodipine Besylate (Norvasc) 5 mg 1X ONCE PO Last administered on 02/19/18at 17:11; Start 02/19/18 at 17:00; Stop 02/19/18 at 17:06; Status DC Atorvastatin Calcium (Lipitor) 20 mg DAILYWSUP PO Last administered on at 16:52; Start 02/22/18 at 17:00 Carbamazepine (TEGretol) 300 mg BIDWMEALS PO ; Start 02/22/18 at 17:00; Stop at 17:00; Status DC Lactobacillus Rhamnosus (Culturelle) 1 cap BIDWMEALS PO Last administered on at 07:38; Start 02/22/18 at 08:00; Stop 02/28/18 at 17:12; Status DC Risperidone (RisperDAL) 1.5 mg DAILYWSUP PO Last administered on 03/01/18at 16: 35; Start 02/22/18 at 17:00; Stop 03/01/18 at 18:37; Status DC Carbamazepine (TEGretol) 300 mg BIDWMEALS PO Last administered on 02/24/18at 17: 26; Start 02/22/18 at 08:00; Stop 02/25/18 at 09:39; Status DC Mirtazapine (Remeron) 15 mg QHS PO Last administered on 03/02/18at 17:07; Start 02/23/18 at 17:00; Stop 03/02/18 at 17:12; Status DC Divalproex Sodium (Depakote Er) 500 mg QHS PO Last administered on 02/28/18at 19:53; Start 02/25/18 at 21:00; Stop 03/01/18 at 07:19; Status DC Polyethylene Glycol (miraLAX) 17 gm PRN DAILY PRN PO CONSTIPATION; Start 02/25 at 14:00 Artificial Tears (Refresh Classic) 1 drop PRN TID PRN OU DRY EYE; Start at 14:00 Clozapine (Clozaril) 25 mg QHS PO Last administered on 02/28/18at 19:52; Start 02/25/18 at 21:00; Stop 03/01/18 at 07:19; Status DC Clozapine (Clozaril) 25 mg DAILY@1700 PO Last administered on 03/02/18at 17:07 ; Start 03/01/18 at 17:00; Stop 03/02/18 at 22:35; Status DC Divalproex Sodium (Depakote Er) 500 mg DAILY@1700 PO Last administered on 03/11at 16:18; Start 03/01/18 at 17:00; Stop 03/12/18 at 11:49; Status DC Trazodone HCl (Desyrel) 100 mg DAILY@1700 PO Last administered on 03/19/18at 16: 50; Start 03/01/18 at 17:00 Risperidone (RisperDAL CONSTA) 25 mg Q2WKS IM ; Start 03/02/18 at 09:00; Stop 03/02/18 at 09:00; Status DC Risperidone (RisperDAL) 1.5 mg DAILYWSUP SL Last administered on 03/02/18at 17: 14; Start 03/02/18 at 17:00; Stop 03/02/18 at 18:13; Status DC Risperidone (RisperDAL CONSTA) 25 mg Q2WKS IM Last administered on 03/17/18at 13:48; Start 03/03/18 at 09:00 Clotrimazole (Lotrimin Af) 1 speedy PRN BID PRN TP itching Last administered on at 09:55; Start 03/02/18 at 10:30 Nystatin (Nystop) 1 speedy PRN BID PRN TP YEAST INFECTION; Start 03/02/18 at 10: 30 Mirtazapine (Remeron) 15 mg DAILYWSUP PO Last administered on 03/19/18at 16:51; Start 03/03/18 at 17:00 Risperidone (RisperDAL) 1.5 mg DAILYWSUP PO Last administered on 03/19/18at 16: 51; Start 03/02/18 at 18:15 Clozapine (Clozaril) 50 mg DAILY@1700 PO Last administered on 03/08/18at 18:03 ; Start 03/03/18 at 17:00; Stop 03/09/18 at 16:53; Status DC Clozapine (Clozaril) 75 mg DAILY@1700 PO Last administered on 03/15/18at 17:11 ; Start 03/09/18 at 17:00; Stop 03/16/18 at 16:58; Status DC Divalproex Sodium (Depakote Er) 500 mg DAILY@1700 PO Last administered on at 16:49; Start 03/12/18 at 17:00 Divalproex Sodium (Depakote Er) 250 mg DAILY@1700 PO Last administered on at 16:49; Start 03/12/18 at 17:00 Clozapine (Clozaril) 100 mg DAILY@1700 PO Last administered on 03/19/18at 16:48 ; Start 03/16/18 at 17:15 Active Scripts Active Reported Sorbitol (Sorbitol Solution) 1 Ml Solution 30 Ml PO PRN DAILY PRN Trazodone Hcl 50 Mg Tablet 50 Mg PO QHS Tegretol (Carbamazepine) 200 Mg Tablet 150 Mg PO BID Risperidone 1 Mg Tablet 1 Mg PO QHS Norvasc (Amlodipine Besylate) 5 Mg Tablet 5 Mg PO DAILY [place]-128 (Sodium Chloride) 3.5 Gm Oint...g. 1 Speedy OP HS Miralax (Polyethylene Glycol 3350) 17 Gm Powd.pack 17 Gm PO DAILY Milk Of Magnesia (Magnesium Hydroxide) 2,400 Mg/10 Ml Oral.susp 30 Ml PO PRN DAILY PRN [place] Carbonate 450 Mg Tablet.er 450 Mg PO HS [place] Carbonate 150 Mg Capsule 300 Mg PO DAILY Lipitor (Atorvastatin Calcium) 20 Mg Tablet 20 Mg PO QHS Levothyroxine Sodium 75 Mcg Tablet 75 Mcg PO DAILYAC Estrace (Estradiol) 42.5 Gm Cream.appl 1 Speedy VG 2X WEEK Q MON, THURS Vitamin D2 (Ergocalciferol (Vitamin D2)) 50,000 Unit Capsule 50,000 Unit PO WEEKLY Endocet 10-325 Mg Tablet (Oxycodone Hcl/Acetaminophen) 1 Each Tablet 1 Each PO PRN Q6HRS PRN Vitamin B-12 (Cyanocobalamin (Vitamin B-12)) 1,000 Mcg Tablet 1,000 Mcg PO DAILY Benztropine Mesylate 0.5 Mg Tablet 0.5 Mg PO BID Tylenol (Acetaminophen) 325 Mg Tablet 650 Mg PO PRN Q6HRS PRN Maalox Advanced Suspension (Mag Hydrox/Aluminum Hyd/Simeth) 355 Ml Oral.susp 15 Ml PO PRN AFTMEALHC PRN Analgesic [place] (Methyl Salicylate/Menthol) 28 Gm Oint...g. 1 Speedy TP PRN QID PRN [place] Carbonate 300 Mg Capsule 450 Mg PO QHS Benztropine Mesylate 0.5 Mg Tablet 0.5 Mg PO QHS Risperidone 1 Mg Tablet 1.5 Mg PO QHS Refresh Classic Eye Drops (Polyvinyl Alcohol/Povidone/Pf) 1 Each Droperette 1 Each OU TID Culturelle (Lactobacillus Rhamnosus Gg) 1 Each Cap.sprink 1 Each PO BID Trazodone Hcl 50 Mg Tablet 50 Mg PO PRN QHS PRN Trazodone Hcl 50 Mg Tablet 50 Mg PO HS Tegretol (Carbamazepine) 200 Mg Tablet 300 Mg PO BID Norvasc (Amlodipine Besylate) 5 Mg Tablet 5 Mg PO DAILY [place]-128 (Sodium Chloride) 15 Ml Drops 1 Drop OD HS Miralax (Polyethylene Glycol 3350) 17 Gm Powd.pack 17 Gm PO DAILY Milk Of Magnesia (Magnesium Hydroxide) 2,400 Mg/10 Ml Oral.susp 2,400 Mg PO PRN DAILY PRN [place] Carbonate 300 Mg Tablet 300 Mg PO DAILY Lipitor (Atorvastatin Calcium) 20 Mg Tablet 20 Mg PO QHS Levothyroxine Sodium 75 Mcg Tablet 75 Mcg PO DAILYAC Estrace (Estradiol) 42.5 Gm Cream.appl 1 Gm VG HS QMON/THURS Insert at bedtime on Friday and Vitamin D2 (Ergocalciferol (Vitamin D2)) 50,000 Unit Capsule 50,000 Unit PO WEEKLY Endocet 10-325 Mg Tablet (Oxycodone Hcl/Acetaminophen) 1 Each Tablet 1 Tab PO PRN Q6HRS PRN Tylenol (Acetaminophen) 325 Mg Tablet 650 Mg PO PRN Q6HRS PRN I have reviewed the current psychotropics carefully including drug interactions. Risk benefit ratio favors no change other than as noted in my dictated progress note. 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
[2018-03-20] MEDS: LEVOTHYROXINE 75 MCG TABLET PO SCH (05:10)
[2018-03-20 06:22] VITALS: BP 143/83
[2018-03-20] MEDS: amLODIPine BESYLATE 10 MG TABLET PO SCH (08:52)
[2018-03-20] MEDS: CYANOCOBALAMIN (VITAMIN B-12) 1,000 MCG TABLET. PO SCH (08:52)
[2018-03-20 15:50] VITALS: BP 129/68
[2018-03-20] MEDS: cloZAPine 100 MG TABLET PO SCH (17:38)
[2018-03-20] MEDS: DIVALPROEX ER 250 MG TAB.ER.24H. PO SCH (17:38)
[2018-03-20] MEDS: risperiDONE 1 MG TABLET. PO SCH (17:39)
[2018-03-20] MEDS: DIVALPROEX ER 500 MG TAB.ER.24H PO SCH (17:39)
[2018-03-20] MEDS: MIRTAZAPINE 15 MG TABLET PO SCH (17:39)
[2018-03-20] MEDS: traZODone 100 MG TABLET. PO SCH (17:39)
[2018-03-20] MEDS: ATORVASTATIN CALCIUM 20 MG TABLET PO SCH (17:39)
[2018-03-20] MEDS: SODIUM CHLORIDE 5% OPHTH OINTMENT 3.5GM TUBE. OD SCH (20:51)
--- NOTE | 2018-03-20 21:42 | PN ---
DATE: 03/19/2018 PSYCHIATRIC PROGRESS NOTE This late entry 03/19/2018 covers elements not covered in my initial note. SUBJECTIVE: I met with the patient at length in her room in the evening, staffed at a treatment team meeting with the entire team. She slept 9-1/4 hours previous night. Reviewed her history, diagnosis, medications at some length at the treatment team meeting. She has been taking her medications whole, seems less fearful, more verbally interactive, significantly better than when she was first admitted when she was not talking at all and was totally scared, paranoid. REVIEW OF SYSTEMS: No CV, , pulmonary, eye, ENT system symptoms on review. Reliability varies. MENTAL STATUS EXAM: Oriented to herself and situation. Speech is coherent, has some latency. Abstraction fair, computation impaired, language function intact, attention span short. Mood and affect are still withdrawn. LABORATORY DATA: Reviewed. IMPRESSION: Bipolar 1 disorder, mixed with psychotic features, in partial remission; anxiety disorder, unspecified. PLAN: No change from initial note. MAN Rox WATT MD DR: SANCHEZ/fredrick JOB#: [id number] / [id number]
--- NOTE | 2018-03-20 23:09 | PDOC ---
Exam Note: Julian Note: Please also refer to the separate dictated note~for this date of service dictated separately.~Patient seen individually. Discussed the patient with Nursing staff reviewed the chart.~Reviewed interim history and current functioning. Reviewed vital signs,~Labs/ Radiology~and current medications noted below. Continue current treatment with the changes noted in the dictated addendum note Assessment: Vital Signs: Vital Signs Date Time Temp Pulse Resp B/P (MAP) Pulse Ox O2 Delivery O2 Flow Rate FiO2 03/20/18 15:50 98.7 94 18 129/68 (88) 95 Room Air I&O Intake and Output 03/20/18 07:00 Intake Total 720 ml Balance 720 ml Intake Oral 720 ml # Voids 1 Current Medications: Meds: Current Medications Acetaminophen (Tylenol) 650 mg PRN Q6HRS PRN PO PAIN / TEMP; Start 02/12/18 at 21:45 Multi-Ingredient Ointment (Analgesic [place]) 1 speedy PRN QID PRN TP MUSCLE PAIN; Start 02/12/18 at 21:45 Al Hydroxide/Mg Hydroxide (Mylanta Plus Xs) 15 ml PRN AFTMEALHC PRN PO DYSPEPSIA; Start 02/12/18 at 21:45 Magnesium Hydroxide (Milk Of Magnesia) 2,400 mg PRN QHS PRN PO CONSTIPATION; Start 02/12/18 at 21:45 Carbamazepine (TEGretol) 150 mg BID PO ; Start 02/13/18 at 09:00; Stop 02/13/18 at 09:00; Status DC Carbamazepine (TEGretol) 300 mg BID PO Last administered on 02/21/18at 19:29; Start 02/13/18 at 09:00; Stop 02/21/18 at 23:54; Status DC Oxycodone/ Acetaminophen (Percocet 10/325) 1 tab PRN Q6HRS PRN PO PAIN Last administered on 02/23/18at 21:17; Start 02/12/18 at 22:30 Oxycodone/ Acetaminophen (Percocet 10/325) 1 tab PRN Q6HRS PRN PO PAIN; Start 02/12/18 at 22:30; Stop 02/12/18 at 22:40; Status DC Benztropine Mesylate (Cogentin) 0.5 mg BID PO Last administered on 02/17/18at 07 :25; Start 02/13/18 at 09:00; Stop 02/17/18 at 16:35; Status DC [place] Carbonate 300 mg DAILY PO Last administered on 02/18/18at 09:14; Start 02/13/18 at 09:00; Stop 02/19/18 at 11:29; Status DC [place] Carbonate 450 mg QHS PO Last administered on 02/17/18at 20:24; Start at 21:00; Stop 02/19/18 at 11:44; Status DC Risperidone (RisperDAL) 1 mg QHS PO Last administered on 02/13/18at 19:52; Start 02/13/18 at 21:00; Stop 02/14/18 at 19:16; Status DC Trazodone HCl (Desyrel) 50 mg QHS PO Last administered on 02/17/18at 20:24; Start 02/13/18 at 21:00; Stop 02/19/18 at 11:29; Status DC Acetaminophen (Tylenol) 650 mg PRN Q6HRS PRN PO PAIN / TEMP; Start 02/12/18 at 22:30; Stop 02/12/18 at 22:32; Status DC Atorvastatin Calcium (Lipitor) 20 mg QHS PO Last administered on 02/20/18at 20: 28; Start 02/13/18 at 21:00; Stop 02/21/18 at 23:54; Status DC Cyanocobalamin (Vitamin B-12) 1,000 mcg DAILY PO Last administered on at 08:52; Start 02/13/18 at 09:00 Estradiol (Estrace) 1 speedy HS VG ; Start 02/13/18 at 21:00; Stop 02/14/18 at 00: 47; Status DC Lactobacillus Rhamnosus (Culturelle) 1 cap BID PO Last administered on at 20:28; Start 02/13/18 at 09:00; Stop 02/21/18 at 23:54; Status DC Levothyroxine Sodium (Synthroid) 75 mcg DAILYAC PO Last administered on at 09:42; Start 02/13/18 at 07:30; Stop 02/13/18 at 11:19; Status DC Multi-Ingredient Ointment (Analgesic [place]) 1 speedy PRN QID PRN TP MUSCLE PAIN; Start 02/12/18 at 22:30; Status Cancel Sodium Chloride ([place]mer) 1 inch HS OD Last administered on 03/20/18at 20:51; Start 02/13/18 at 21:00 Sorbitol (Sorbitol Solution) 1 ml PRN DAILY PRN PO CONSTIPATION; Start at 22:30; Status Cancel Amlodipine Besylate (Norvasc) 5 mg DAILY PO Last administered on 02/19/18at 13: 30; Start 02/13/18 at 09:00; Stop 02/19/18 at 17:00; Status DC Vitamin D (Vitamin D3) 50,000 unit WEEKLY PO ; Start 02/19/18 at 09:00; Stop at 09:00; Status DC Non-Formulary Medication (Mag Hydrox/ Aluminum Hyd/ Simeth (Maalox Advanced Suspension)) 15 ml PRN AFTMEALHC PRN PO DYSPEPSIA; Start 02/12/18 at 22:30; Stop 02/12/18 at 22:41; Status DC Non-Formulary Medication (Magnesium Hydroxide (Milk Of Magnesia)) 2,400 mg PRN DAILY PRN PO CONSTIPATION; Start 02/12/18 at 22:30; Stop 02/12/18 at 22:41; Status DC Polyethylene Glycol (miraLAX) 17 gm DAILY PO Last administered on 02/18/18at 09: 15; Start 02/13/18 at 09:00; Stop 02/25/18 at 14:01; Status DC Artificial Tears (Refresh Classic) 1 drop TID OU Last administered on at 21:17; Start 02/13/18 at 09:00; Stop 02/25/18 at 14:01; Status DC Non-Formulary Medication (Sodium Chloride (Elmer-128)) 1 drop HS OD ; Start 02/13 at 21:00; Stop 02/13/18 at 21:00; Status DC Levothyroxine Sodium (Synthroid) 75 mcg DAILY06 PO Last administered on at 05:10; Start 02/14/18 at 06:00 Sorbitol (Sorbitol Solution) 30 ml PRN DAILY PRN PO CONSTIPATION; Start at 11:00 Estradiol (Estrace) 1 speedy QMTH VG Last administered on 03/12/18at 16:00; Start 02/16/18 at 21:00 Info (FLU VACCINE per PROTOCOL) 1 ea PRN 1X PRN MC PER PROTOCOL; Start at 09:00; Status UNV Risperidone (RisperDAL) 1.5 mg QHS PO Last administered on 02/21/18at 19:26; Start 02/14/18 at 21:00; Stop 02/21/18 at 23:54; Status DC Bupropion HCl (Wellbutrin Xl) 150 mg DAILY PO Last administered on 02/19/18at 13 :30; Start 02/15/18 at 09:00; Stop 02/19/18 at 16:58; Status DC Quetiapine Fumarate (SEROquel) 25 mg QHS PO Last administered on 02/17/18at 20: 28; Start 02/15/18 at 21:00; Stop 02/19/18 at 11:29; Status DC Hydroxyzine HCl (Atarax) 10 mg PRN Q2HR PRN PO anxiety Last administered on 02/23/18at 21:17; Start 02/16/18 at 16:30 Benztropine Mesylate (Cogentin) 0.5 mg DAILY PO Last administered on at 10:35; Start 02/18/18 at 09:00; Stop 03/04/18 at 18:50; Status DC Mirtazapine (Remeron) 7.5 mg QHS PO Last administered on 02/22/18at 17:16; Start 02/17/18 at 21:00; Stop 02/23/18 at 16:10; Status DC Trazodone HCl (Desyrel) 50 mg PRN QHS PRN PO SEE ADMIN INSTRUCTIONS; Start 02/17/18 at 16:45; Stop 02/19/18 at 11:29; Status DC Trazodone HCl (Desyrel) 100 mg QHS PO ; Start 02/19/18 at 21:00; Stop 02/19/18 at 21:00; Status DC Trazodone HCl (Desyrel) 100 mg PRN QHS PRN PO SEE ADMIN INSTRUCTIONS; Start at 11:30 Trazodone HCl (Desyrel) 100 mg QHS PO Last administered on 02/28/18at 19:53; Start 02/19/18 at 21:00; Stop 03/01/18 at 07:19; Status DC Amlodipine Besylate (Norvasc) 10 mg DAILY PO Last administered on 03/20/18at 08: 52; Start 02/20/18 at 09:00 Amlodipine Besylate (Norvasc) 5 mg 1X ONCE PO Last administered on 02/19/18at 17:11; Start 02/19/18 at 17:00; Stop 02/19/18 at 17:06; Status DC Atorvastatin Calcium (Lipitor) 20 mg DAILYWSUP PO Last administered on at 17:39; Start 02/22/18 at 17:00 Carbamazepine (TEGretol) 300 mg BIDWMEALS PO ; Start 02/22/18 at 17:00; Stop at 17:00; Status DC Lactobacillus Rhamnosus (Culturelle) 1 cap BIDWMEALS PO Last administered on at 07:38; Start 02/22/18 at 08:00; Stop 02/28/18 at 17:12; Status DC Risperidone (RisperDAL) 1.5 mg DAILYWSUP PO Last administered on 03/01/18at 16: 35; Start 02/22/18 at 17:00; Stop 03/01/18 at 18:37; Status DC Carbamazepine (TEGretol) 300 mg BIDWMEALS PO Last administered on 02/24/18at 17: 26; Start 02/22/18 at 08:00; Stop 02/25/18 at 09:39; Status DC Mirtazapine (Remeron) 15 mg QHS PO Last administered on 03/02/18at 17:07; Start 02/23/18 at 17:00; Stop 03/02/18 at 17:12; Status DC Divalproex Sodium (Depakote Er) 500 mg QHS PO Last administered on 02/28/18at 19:53; Start 02/25/18 at 21:00; Stop 03/01/18 at 07:19; Status DC Polyethylene Glycol (miraLAX) 17 gm PRN DAILY PRN PO CONSTIPATION; Start 02/25 at 14:00 Artificial Tears (Refresh Classic) 1 drop PRN TID PRN OU DRY EYE; Start at 14:00 Clozapine (Clozaril) 25 mg QHS PO Last administered on 02/28/18at 19:52; Start 02/25/18 at 21:00; Stop 03/01/18 at 07:19; Status DC Clozapine (Clozaril) 25 mg DAILY@1700 PO Last administered on 03/02/18at 17:07 ; Start 03/01/18 at 17:00; Stop 03/02/18 at 22:35; Status DC Divalproex Sodium (Depakote Er) 500 mg DAILY@1700 PO Last administered on 03/11at 16:18; Start 03/01/18 at 17:00; Stop 03/12/18 at 11:49; Status DC Trazodone HCl (Desyrel) 100 mg DAILY@1700 PO Last administered on 03/20/18at 17: 39; Start 03/01/18 at 17:00 Risperidone (RisperDAL CONSTA) 25 mg Q2WKS IM ; Start 03/02/18 at 09:00; Stop 03/02/18 at 09:00; Status DC Risperidone (RisperDAL) 1.5 mg DAILYWSUP SL Last administered on 03/02/18at 17: 14; Start 03/02/18 at 17:00; Stop 03/02/18 at 18:13; Status DC Risperidone (RisperDAL CONSTA) 25 mg Q2WKS IM Last administered on 03/17/18at 13:48; Start 03/03/18 at 09:00 Clotrimazole (Lotrimin Af) 1 speedy PRN BID PRN TP itching Last administered on at 09:55; Start 03/02/18 at 10:30 Nystatin (Nystop) 1 speedy PRN BID PRN TP YEAST INFECTION; Start 03/02/18 at 10: 30 Mirtazapine (Remeron) 15 mg DAILYWSUP PO Last administered on 03/20/18at 17:39; Start 03/03/18 at 17:00 Risperidone (RisperDAL) 1.5 mg DAILYWSUP PO Last administered on 03/20/18at 17: 39; Start 03/02/18 at 18:15 Clozapine (Clozaril) 50 mg DAILY@1700 PO Last administered on 03/08/18at 18:03 ; Start 03/03/18 at 17:00; Stop 03/09/18 at 16:53; Status DC Clozapine (Clozaril) 75 mg DAILY@1700 PO Last administered on 03/15/18at 17:11 ; Start 03/09/18 at 17:00; Stop 03/16/18 at 16:58; Status DC Divalproex Sodium (Depakote Er) 500 mg DAILY@1700 PO Last administered on at 17:39; Start 03/12/18 at 17:00 Divalproex Sodium (Depakote Er) 250 mg DAILY@1700 PO Last administered on at 17:38; Start 03/12/18 at 17:00 Clozapine (Clozaril) 100 mg DAILY@1700 PO Last administered on 03/20/18at 17:38 ; Start 03/16/18 at 17:15 Active Scripts Active Reported Sorbitol (Sorbitol Solution) 1 Ml Solution 30 Ml PO PRN DAILY PRN Trazodone Hcl 50 Mg Tablet 50 Mg PO QHS Tegretol (Carbamazepine) 200 Mg Tablet 150 Mg PO BID Risperidone 1 Mg Tablet 1 Mg PO QHS Norvasc (Amlodipine Besylate) 5 Mg Tablet 5 Mg PO DAILY Elmer-128 (Sodium Chloride) 3.5 Gm Oint...g. 1 Speedy OP HS Miralax (Polyethylene Glycol 3350) 17 Gm Powd.pack 17 Gm PO DAILY Milk Of Magnesia (Magnesium Hydroxide) 2,400 Mg/10 Ml Oral.susp 30 Ml PO PRN DAILY PRN [place] Carbonate 450 Mg Tablet.er 450 Mg PO HS [place] Carbonate 150 Mg Capsule 300 Mg PO DAILY Lipitor (Atorvastatin Calcium) 20 Mg Tablet 20 Mg PO QHS Levothyroxine Sodium 75 Mcg Tablet 75 Mcg PO DAILYAC Estrace (Estradiol) 42.5 Gm Cream.appl 1 Speedy VG 2X WEEK Q MON, THURS Vitamin D2 (Ergocalciferol (Vitamin D2)) 50,000 Unit Capsule 50,000 Unit PO WEEKLY Endocet 10-325 Mg Tablet (Oxycodone Hcl/Acetaminophen) 1 Each Tablet 1 Each PO PRN Q6HRS PRN Vitamin B-12 (Cyanocobalamin (Vitamin B-12)) 1,000 Mcg Tablet 1,000 Mcg PO DAILY Benztropine Mesylate 0.5 Mg Tablet 0.5 Mg PO BID Tylenol (Acetaminophen) 325 Mg Tablet 650 Mg PO PRN Q6HRS PRN Maalox Advanced Suspension (Mag Hydrox/Aluminum Hyd/Simeth) 355 Ml Oral.susp 15 Ml PO PRN AFTMEALHC PRN Analgesic [place] (Methyl Salicylate/Menthol) 28 Gm Oint...g. 1 Speedy TP PRN QID PRN [place] Carbonate 300 Mg Capsule 450 Mg PO QHS Benztropine Mesylate 0.5 Mg Tablet 0.5 Mg PO QHS Risperidone 1 Mg Tablet 1.5 Mg PO QHS Refresh Classic Eye Drops (Polyvinyl Alcohol/Povidone/Pf) 1 Each Droperette 1 Each OU TID Culturelle (Lactobacillus Rhamnosus Gg) 1 Each Cap.sprink 1 Each PO BID Trazodone Hcl 50 Mg Tablet 50 Mg PO PRN QHS PRN Trazodone Hcl 50 Mg Tablet 50 Mg PO HS Tegretol (Carbamazepine) 200 Mg Tablet 300 Mg PO BID Norvasc (Amlodipine Besylate) 5 Mg Tablet 5 Mg PO DAILY [place]mer-128 (Sodium Chloride) 15 Ml Drops 1 Drop OD HS Miralax (Polyethylene Glycol 3350) 17 Gm Powd.pack 17 Gm PO DAILY Milk Of Magnesia (Magnesium Hydroxide) 2,400 Mg/10 Ml Oral.susp 2,400 Mg PO PRN DAILY PRN [place] Carbonate 300 Mg Tablet 300 Mg PO DAILY Lipitor (Atorvastatin Calcium) 20 Mg Tablet 20 Mg PO QHS Levothyroxine Sodium 75 Mcg Tablet 75 Mcg PO DAILYAC Estrace (Estradiol) 42.5 Gm Cream.appl 1 Gm VG HS QMON/THURS Insert at bedtime on Friday and Vitamin D2 (Ergocalciferol (Vitamin D2)) 50,000 Unit Capsule 50,000 Unit PO WEEKLY Endocet 10-325 Mg Tablet (Oxycodone Hcl/Acetaminophen) 1 Each Tablet 1 Tab PO PRN Q6HRS PRN Tylenol (Acetaminophen) 325 Mg Tablet 650 Mg PO PRN Q6HRS PRN I have reviewed the current psychotropics carefully including drug interactions. Risk benefit ratio favors no change other than as noted in my dictated progress note. 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
[2018-03-21] MEDS: LEVOTHYROXINE 75 MCG TABLET PO SCH (05:21)
[2018-03-21 06:05] VITALS: BP 139/77
[2018-03-21] MEDS: amLODIPine BESYLATE 10 MG TABLET PO SCH (08:09)
[2018-03-21] MEDS: CYANOCOBALAMIN (VITAMIN B-12) 1,000 MCG TABLET. PO SCH (08:09)
[2018-03-21 15:55] VITALS: BP 108/69
[2018-03-21] MEDS: cloZAPine 100 MG TABLET PO SCH (16:42)
[2018-03-21] MEDS: DIVALPROEX ER 500 MG TAB.ER.24H PO SCH (16:42)
[2018-03-21] MEDS: DIVALPROEX ER 250 MG TAB.ER.24H. PO SCH (16:42)
[2018-03-21] MEDS: ATORVASTATIN CALCIUM 20 MG TABLET PO SCH (16:43)
[2018-03-21] MEDS: MIRTAZAPINE 15 MG TABLET PO SCH (16:43)
[2018-03-21] MEDS: traZODone 100 MG TABLET. PO SCH (16:43)
[2018-03-21] MEDS: risperiDONE 1 MG TABLET. PO SCH (16:43)
[2018-03-21] MEDS: SODIUM CHLORIDE 5% OPHTH OINTMENT 3.5GM TUBE. OD SCH (20:06)
--- NOTE | 2018-03-21 23:12 | PDOC ---
Exam Note: Julian Note: Please also refer to the separate dictated note~for this date of service dictated separately.~Patient seen individually. Discussed the patient with Nursing staff reviewed the chart.~Reviewed interim history and current functioning. Reviewed vital signs,~Labs/ Radiology~and current medications noted below. Continue current treatment with the changes noted in the dictated addendum note Assessment: Vital Signs: Vital Signs Date Time Temp Pulse Resp B/P (MAP) Pulse Ox O2 Delivery O2 Flow Rate FiO2 03/21/18 15:55 98.0 102 20 108/69 (82) 97 Room Air I&O Intake and Output 03/21/18 07:00 Intake Total 1560 ml Balance 1560 ml Intake Oral 1560 ml # Voids 4 # Bowel Movements 1 Current Medications: Meds: Current Medications Acetaminophen (Tylenol) 650 mg PRN Q6HRS PRN PO PAIN / TEMP; Start 02/12/18 at 21:45 Multi-Ingredient Ointment (Analgesic [place]) 1 speedy PRN QID PRN TP MUSCLE PAIN; Start 02/12/18 at 21:45 Al Hydroxide/Mg Hydroxide (Mylanta Plus Xs) 15 ml PRN AFTMEALHC PRN PO DYSPEPSIA; Start 02/12/18 at 21:45 Magnesium Hydroxide (Milk Of Magnesia) 2,400 mg PRN QHS PRN PO CONSTIPATION; Start 02/12/18 at 21:45 Carbamazepine (TEGretol) 150 mg BID PO ; Start 02/13/18 at 09:00; Stop 02/13/18 at 09:00; Status DC Carbamazepine (TEGretol) 300 mg BID PO Last administered on 02/21/18at 19:29; Start 02/13/18 at 09:00; Stop 02/21/18 at 23:54; Status DC Oxycodone/ Acetaminophen (Percocet 10/325) 1 tab PRN Q6HRS PRN PO PAIN Last administered on 02/23/18at 21:17; Start 02/12/18 at 22:30 Oxycodone/ Acetaminophen (Percocet 10/325) 1 tab PRN Q6HRS PRN PO PAIN; Start 02/12/18 at 22:30; Stop 02/12/18 at 22:40; Status DC Benztropine Mesylate (Cogentin) 0.5 mg BID PO Last administered on 02/17/18 07 :25; Start 02/13/18 at 09:00; Stop 02/17/18 at 16:35; Status DC [place] Carbonate 300 mg DAILY PO Last administered on 02/18/18at 09:14; Start 02/13/18 at 09:00; Stop 02/19/18 at 11:29; Status DC [place] Carbonate 450 mg QHS PO Last administered on 02/17/18 20:24; Start at 21:00; Stop 02/19/18 at 11:44; Status DC Risperidone (RisperDAL) 1 mg QHS PO Last administered on 02/13/18at 19:52; Start 02/13/18 at 21:00; Stop 02/14/18 at 19:16; Status DC Trazodone HCl (Desyrel) 50 mg QHS PO Last administered on 02/17/18 20:24; Start 02/13/18 at 21:00; Stop 02/19/18 at 11:29; Status DC Acetaminophen (Tylenol) 650 mg PRN Q6HRS PRN PO PAIN / TEMP; Start 02/12/18 at 22:30; Stop 02/12/18 at 22:32; Status DC Atorvastatin Calcium (Lipitor) 20 mg QHS PO Last administered on 02/20/18at 20: 28; Start 02/13/18 at 21:00; Stop 02/21/18 at 23:54; Status DC Cyanocobalamin (Vitamin B-12) 1,000 mcg DAILY PO Last administered on at 08:09; Start 02/13/18 at 09:00 Estradiol (Estrace) 1 speedy HS VG ; Start 02/13/18 at 21:00; Stop 02/14/18 at 00: 47; Status DC Lactobacillus Rhamnosus (Culturelle) 1 cap BID PO Last administered on 20:28; Start 02/13/18 at 09:00; Stop 02/21/18 at 23:54; Status DC Levothyroxine Sodium (Synthroid) 75 mcg DAILYAC PO Last administered on at 09:42; Start 02/13/18 at 07:30; Stop 02/13/18 at 11:19; Status DC Multi-Ingredient Ointment (Analgesic [place]) 1 speedy PRN QID PRN TP MUSCLE PAIN; Start 02/12/18 at 22:30; Status Cancel Sodium Chloride ([place]mer) 1 inch HS OD Last administered on 03/21/18at 20:06; Start 02/13/18 at 21:00 Sorbitol (Sorbitol Solution) 1 ml PRN DAILY PRN PO CONSTIPATION; Start at 22:30; Status Cancel Amlodipine Besylate (Norvasc) 5 mg DAILY PO Last administered on 02/19/18at 13: 30; Start 02/13/18 at 09:00; Stop 02/19/18 at 17:00; Status DC Vitamin D (Vitamin D3) 50,000 unit WEEKLY PO ; Start 02/19/18 at 09:00; Stop at 09:00; Status DC Non-Formulary Medication (Mag Hydrox/ Aluminum Hyd/ Simeth (Maalox Advanced Suspension)) 15 ml PRN AFTMEALHC PRN PO DYSPEPSIA; Start 02/12/18 at 22:30; Stop 02/12/18 at 22:41; Status DC Non-Formulary Medication (Magnesium Hydroxide (Milk Of Magnesia)) 2,400 mg PRN DAILY PRN PO CONSTIPATION; Start 02/12/18 at 22:30; Stop 02/12/18 at 22:41; Status DC Polyethylene Glycol (miraLAX) 17 gm DAILY PO Last administered on 02/18/18at 09: 15; Start 02/13/18 at 09:00; Stop 02/25/18 at 14:01; Status DC Artificial Tears (Refresh Classic) 1 drop TID OU Last administered on at 21:17; Start 02/13/18 at 09:00; Stop 02/25/18 at 14:01; Status DC Non-Formulary Medication (Sodium Chloride (Elmer-128)) 1 drop HS OD ; Start 02/13 at 21:00; Stop 02/13/18 at 21:00; Status DC Levothyroxine Sodium (Synthroid) 75 mcg DAILY06 PO Last administered on at 05:21; Start 02/14/18 at 06:00 Sorbitol (Sorbitol Solution) 30 ml PRN DAILY PRN PO CONSTIPATION; Start at 11:00 Estradiol (Estrace) 1 speedy QMTH VG Last administered on 03/12/18at 16:00; Start 02/16/18 at 21:00 Info (FLU VACCINE per PROTOCOL) 1 ea PRN 1X PRN MC PER PROTOCOL; Start at 09:00; Status UNV Risperidone (RisperDAL) 1.5 mg QHS PO Last administered on 02/21/18at 19:26; Start 02/14/18 at 21:00; Stop 02/21/18 at 23:54; Status DC Bupropion HCl (Wellbutrin Xl) 150 mg DAILY PO Last administered on 02/19/18at 13 :30; Start 02/15/18 at 09:00; Stop 02/19/18 at 16:58; Status DC Quetiapine Fumarate (SEROquel) 25 mg QHS PO Last administered on 02/17/18at 20: 28; Start 02/15/18 at 21:00; Stop 02/19/18 at 11:29; Status DC Hydroxyzine HCl (Atarax) 10 mg PRN Q2HR PRN PO anxiety Last administered on 02/23/18at 21:17; Start 02/16/18 at 16:30 Benztropine Mesylate (Cogentin) 0.5 mg DAILY PO Last administered on at 10:35; Start 02/18/18 at 09:00; Stop 03/04/18 at 18:50; Status DC Mirtazapine (Remeron) 7.5 mg QHS PO Last administered on 02/22/18at 17:16; Start 02/17/18 at 21:00; Stop 02/23/18 at 16:10; Status DC Trazodone HCl (Desyrel) 50 mg PRN QHS PRN PO SEE ADMIN INSTRUCTIONS; Start 02/17/18 at 16:45; Stop 02/19/18 at 11:29; Status DC Trazodone HCl (Desyrel) 100 mg QHS PO ; Start 02/19/18 at 21:00; Stop 02/19/18 at 21:00; Status DC Trazodone HCl (Desyrel) 100 mg PRN QHS PRN PO SEE ADMIN INSTRUCTIONS; Start at 11:30 Trazodone HCl (Desyrel) 100 mg QHS PO Last administered on 02/28/18at 19:53; Start 02/19/18 at 21:00; Stop 03/01/18 at 07:19; Status DC Amlodipine Besylate (Norvasc) 10 mg DAILY PO Last administered on 03/21/18at 08: 09; Start 02/20/18 at 09:00 Amlodipine Besylate (Norvasc) 5 mg 1X ONCE PO Last administered on 02/19/18at 17:11; Start 02/19/18 at 17:00; Stop 02/19/18 at 17:06; Status DC Atorvastatin Calcium (Lipitor) 20 mg DAILYWSUP PO Last administered on at 16:43; Start 02/22/18 at 17:00 Carbamazepine (TEGretol) 300 mg BIDWMEALS PO ; Start 02/22/18 at 17:00; Stop at 17:00; Status DC Lactobacillus Rhamnosus (Culturelle) 1 cap BIDWMEALS PO Last administered on at 07:38; Start 02/22/18 at 08:00; Stop 02/28/18 at 17:12; Status DC Risperidone (RisperDAL) 1.5 mg DAILYWSUP PO Last administered on 03/01/18at 16: 35; Start 02/22/18 at 17:00; Stop 03/01/18 at 18:37; Status DC Carbamazepine (TEGretol) 300 mg BIDWMEALS PO Last administered on 02/24/18at 17: 26; Start 02/22/18 at 08:00; Stop 02/25/18 at 09:39; Status DC Mirtazapine (Remeron) 15 mg QHS PO Last administered on 03/02/18at 17:07; Start 02/23/18 at 17:00; Stop 03/02/18 at 17:12; Status DC Divalproex Sodium (Depakote Er) 500 mg QHS PO Last administered on 02/28/18at 19:53; Start 02/25/18 at 21:00; Stop 03/01/18 at 07:19; Status DC Polyethylene Glycol (miraLAX) 17 gm PRN DAILY PRN PO CONSTIPATION; Start 02/25 at 14:00 Artificial Tears (Refresh Classic) 1 drop PRN TID PRN OU DRY EYE; Start at 14:00 Clozapine (Clozaril) 25 mg QHS PO Last administered on 02/28/18at 19:52; Start 02/25/18 at 21:00; Stop 03/01/18 at 07:19; Status DC Clozapine (Clozaril) 25 mg DAILY@1700 PO Last administered on 03/02/18at 17:07 ; Start 03/01/18 at 17:00; Stop 03/02/18 at 22:35; Status DC Divalproex Sodium (Depakote Er) 500 mg DAILY@1700 PO Last administered on 03/11at 16:18; Start 03/01/18 at 17:00; Stop 03/12/18 at 11:49; Status DC Trazodone HCl (Desyrel) 100 mg DAILY@1700 PO Last administered on 03/21/18at 16: 43; Start 03/01/18 at 17:00 Risperidone (RisperDAL CONSTA) 25 mg Q2WKS IM ; Start 03/02/18 at 09:00; Stop 03/02/18 at 09:00; Status DC Risperidone (RisperDAL) 1.5 mg DAILYWSUP SL Last administered on 03/02/18at 17: 14; Start 03/02/18 at 17:00; Stop 03/02/18 at 18:13; Status DC Risperidone (RisperDAL CONSTA) 25 mg Q2WKS IM Last administered on 03/17/18at 13:48; Start 03/03/18 at 09:00 Clotrimazole (Lotrimin Af) 1 speedy PRN BID PRN TP itching Last administered on at 09:55; Start 03/02/18 at 10:30 Nystatin (Nystop) 1 speedy PRN BID PRN TP YEAST INFECTION; Start 03/02/18 at 10: 30 Mirtazapine (Remeron) 15 mg DAILYWSUP PO Last administered on 03/21/18 16:43; Start 03/03/18 at 17:00 Risperidone (RisperDAL) 1.5 mg DAILYWSUP PO Last administered on 03/21/18 16: 43; Start 03/02/18 at 18:15 Clozapine (Clozaril) 50 mg DAILY@1700 PO Last administered on 03/08/18at 18:03 ; Start 03/03/18 at 17:00; Stop 03/09/18 at 16:53; Status DC Clozapine (Clozaril) 75 mg DAILY@1700 PO Last administered on 03/15/18at 17:11 ; Start 03/09/18 at 17:00; Stop 03/16/18 at 16:58; Status DC Divalproex Sodium (Depakote Er) 500 mg DAILY@1700 PO Last administered on at 16:42; Start 03/12/18 at 17:00 Divalproex Sodium (Depakote Er) 250 mg DAILY@1700 PO Last administered on at 16:42; Start 03/12/18 at 17:00 Clozapine (Clozaril) 100 mg DAILY@1700 PO Last administered on 03/21/18at 16:42 ; Start 03/16/18 at 17:15 Active Scripts Active Reported Sorbitol (Sorbitol Solution) 1 Ml Solution 30 Ml PO PRN DAILY PRN Trazodone Hcl 50 Mg Tablet 50 Mg PO QHS Tegretol (Carbamazepine) 200 Mg Tablet 150 Mg PO BID Risperidone 1 Mg Tablet 1 Mg PO QHS Norvasc (Amlodipine Besylate) 5 Mg Tablet 5 Mg PO DAILY Elmer-128 (Sodium Chloride) 3.5 Gm Oint...g. 1 Speedy OP HS Miralax (Polyethylene Glycol 3350) 17 Gm Powd.pack 17 Gm PO DAILY Milk Of Magnesia (Magnesium Hydroxide) 2,400 Mg/10 Ml Oral.susp 30 Ml PO PRN DAILY PRN [place] Carbonate 450 Mg Tablet.er 450 Mg PO HS [place] Carbonate 150 Mg Capsule 300 Mg PO DAILY Lipitor (Atorvastatin Calcium) 20 Mg Tablet 20 Mg PO QHS Levothyroxine Sodium 75 Mcg Tablet 75 Mcg PO DAILYAC Estrace (Estradiol) 42.5 Gm Cream.appl 1 Speedy VG 2X WEEK Q MON, THURS Vitamin D2 (Ergocalciferol (Vitamin D2)) 50,000 Unit Capsule 50,000 Unit PO WEEKLY Endocet 10-325 Mg Tablet (Oxycodone Hcl/Acetaminophen) 1 Each Tablet 1 Each PO PRN Q6HRS PRN Vitamin B-12 (Cyanocobalamin (Vitamin B-12)) 1,000 Mcg Tablet 1,000 Mcg PO DAILY Benztropine Mesylate 0.5 Mg Tablet 0.5 Mg PO BID Tylenol (Acetaminophen) 325 Mg Tablet 650 Mg PO PRN Q6HRS PRN Maalox Advanced Suspension (Mag Hydrox/Aluminum Hyd/Simeth) 355 Ml Oral.susp 15 Ml PO PRN AFTMEALHC PRN Analgesic [place] (Methyl Salicylate/Menthol) 28 Gm Oint...g. 1 Speedy TP PRN QID PRN [place] Carbonate 300 Mg Capsule 450 Mg PO QHS Benztropine Mesylate 0.5 Mg Tablet 0.5 Mg PO QHS Risperidone 1 Mg Tablet 1.5 Mg PO QHS Refresh Classic Eye Drops (Polyvinyl Alcohol/Povidone/Pf) 1 Each Droperette 1 Each OU TID Culturelle (Lactobacillus Rhamnosus Gg) 1 Each Cap.sprink 1 Each PO BID Trazodone Hcl 50 Mg Tablet 50 Mg PO PRN QHS PRN Trazodone Hcl 50 Mg Tablet 50 Mg PO HS Tegretol (Carbamazepine) 200 Mg Tablet 300 Mg PO BID Norvasc (Amlodipine Besylate) 5 Mg Tablet 5 Mg PO DAILY [place]-128 (Sodium Chloride) 15 Ml Drops 1 Drop OD HS Miralax (Polyethylene Glycol 3350) 17 Gm Powd.pack 17 Gm PO DAILY Milk Of Magnesia (Magnesium Hydroxide) 2,400 Mg/10 Ml Oral.susp 2,400 Mg PO PRN DAILY PRN [place] Carbonate 300 Mg Tablet 300 Mg PO DAILY Lipitor (Atorvastatin Calcium) 20 Mg Tablet 20 Mg PO QHS Levothyroxine Sodium 75 Mcg Tablet 75 Mcg PO DAILYAC Estrace (Estradiol) 42.5 Gm Cream.appl 1 Gm VG HS QMON/ Insert at bedtime on Friday and Vitamin D2 (Ergocalciferol (Vitamin D2)) 50,000 Unit Capsule 50,000 Unit PO WEEKLY Endocet 10-325 Mg Tablet (Oxycodone Hcl/Acetaminophen) 1 Each Tablet 1 Tab PO PRN Q6HRS PRN Tylenol (Acetaminophen) 325 Mg Tablet 650 Mg PO PRN Q6HRS PRN I have reviewed the current psychotropics carefully including drug interactions. Risk benefit ratio favors no change other than as noted in my dictated progress note. 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
[2018-03-22] MEDS: LEVOTHYROXINE 75 MCG TABLET PO SCH (05:42)
[2018-03-22 06:09] VITALS: BP 146/87
[2018-03-22] MEDS: CYANOCOBALAMIN (VITAMIN B-12) 1,000 MCG TABLET. PO SCH (08:08)
[2018-03-22] MEDS: amLODIPine BESYLATE 10 MG TABLET PO SCH (08:09)
[2018-03-22 15:50] VITALS: BP 114/77
--- NOTE | 2018-03-22 16:30 | PN ---
DATE: 03/20/2018 This is a late entry for date of service 03/20/2018 and covers elements not covered in my initial note. SUBJECTIVE: I met with the patient in the evening. The patient slept 6-1/2 hours previous evening. She is somewhat withdrawn, but less paranoid. Behaviorally, she is better, compliant with medications. REVIEW OF SYSTEMS: No CV, , pulmonary, eye, ENT system symptoms on review. MENTAL STATUS EXAM: Reasonably oriented to place and situation. Speech has some latency. She is more forthcoming and verbal, less paranoid. Abstraction fair, computation impaired, language function intact, attention span short. Mood and affect showing improvement. LABORATORY DATA: Reviewed. IMPRESSION: Unchanged from initial note. PLAN: No change from initial note. Continue to gradually increase the Clozaril. MAN Rox WATT MD DR: SANCHEZ/fredrick JOB#: [id number] / [id number]
[2018-03-22] MEDS: cloZAPine 100 MG TABLET PO SCH (17:17)
[2018-03-22] MEDS: MIRTAZAPINE 15 MG TABLET PO SCH (17:17)
[2018-03-22] MEDS: ATORVASTATIN CALCIUM 20 MG TABLET PO SCH (17:17)
[2018-03-22] MEDS: DIVALPROEX ER 500 MG TAB.ER.24H PO SCH (17:17)
[2018-03-22] MEDS: traZODone 100 MG TABLET. PO SCH (17:18)
[2018-03-22] MEDS: DIVALPROEX ER 250 MG TAB.ER.24H. PO SCH (17:18)
[2018-03-22] MEDS: risperiDONE 1 MG TABLET. PO SCH (17:18)
[2018-03-22] MEDS: SODIUM CHLORIDE 5% OPHTH OINTMENT 3.5GM TUBE. OD SCH (19:45)
--- NOTE | 2018-03-22 23:05 | PDOC ---
Exam Note: Julian Note: Please also refer to the separate dictated note~for this date of service dictated separately.~Patient seen individually. Discussed the patient with Nursing staff reviewed the chart.~Reviewed interim history and current functioning. Reviewed vital signs,~Labs/ Radiology~and current medications noted below. Continue current treatment with the changes noted in the dictated addendum note Assessment: Vital Signs: Vital Signs Date Time Temp Pulse Resp B/P (MAP) Pulse Ox O2 Delivery O2 Flow Rate FiO2 03/22/18 15:50 98.7 75 20 114/77 (89) 92 Room Air I&O Intake and Output 03/22/18 07:00 Intake Total 960 ml Balance 960 ml Intake Oral 960 ml Current Medications: Meds: Current Medications Acetaminophen (Tylenol) 650 mg PRN Q6HRS PRN PO PAIN / TEMP; Start 02/12/18 at 21:45 Multi-Ingredient Ointment (Analgesic Josephine) 1 speedy PRN QID PRN TP MUSCLE PAIN; Start 02/12/18 at 21:45 Al Hydroxide/Mg Hydroxide (Mylanta Plus Xs) 15 ml PRN AFTMEALHC PRN PO DYSPEPSIA; Start 02/12/18 at 21:45 Magnesium Hydroxide (Milk Of Magnesia) 2,400 mg PRN QHS PRN PO CONSTIPATION; Start 02/12/18 at 21:45 Carbamazepine (TEGretol) 150 mg BID PO ; Start 02/13/18 at 09:00; Stop 02/13/18 at 09:00; Status DC Carbamazepine (TEGretol) 300 mg BID PO Last administered on 02/21/18at 19:29; Start 02/13/18 at 09:00; Stop 02/21/18 at 23:54; Status DC Oxycodone/ Acetaminophen (Percocet 10/325) 1 tab PRN Q6HRS PRN PO PAIN Last administered on 02/23/18at 21:17; Start 02/12/18 at 22:30 Oxycodone/ Acetaminophen (Percocet 10/325) 1 tab PRN Q6HRS PRN PO PAIN; Start 02/12/18 at 22:30; Stop 02/12/18 at 22:40; Status DC Benztropine Mesylate (Cogentin) 0.5 mg BID PO Last administered on 02/17/18at 07 :25; Start 02/13/18 at 09:00; Stop 02/17/18 at 16:35; Status DC Kelayres Carbonate 300 mg DAILY PO Last administered on 02/18/18at 09:14; Start 02/13/18 at 09:00; Stop 02/19/18 at 11:29; Status DC Kelayres Carbonate 450 mg QHS PO Last administered on 02/17/18at 20:24; Start at 21:00; Stop 02/19/18 at 11:44; Status DC Risperidone (RisperDAL) 1 mg QHS PO Last administered on 02/13/18at 19:52; Start 02/13/18 at 21:00; Stop 02/14/18 at 19:16; Status DC Trazodone HCl (Desyrel) 50 mg QHS PO Last administered on 02/17/18at 20:24; Start 02/13/18 at 21:00; Stop 02/19/18 at 11:29; Status DC Acetaminophen (Tylenol) 650 mg PRN Q6HRS PRN PO PAIN / TEMP; Start 02/12/18 at 22:30; Stop 02/12/18 at 22:32; Status DC Atorvastatin Calcium (Lipitor) 20 mg QHS PO Last administered on 02/20/18at 20: 28; Start 02/13/18 at 21:00; Stop 02/21/18 at 23:54; Status DC Cyanocobalamin (Vitamin B-12) 1,000 mcg DAILY PO Last administered on at 08:08; Start 02/13/18 at 09:00 Estradiol (Estrace) 1 speedy HS VG ; Start 02/13/18 at 21:00; Stop 02/14/18 at 00: 47; Status DC Lactobacillus Rhamnosus (Culturelle) 1 cap BID PO Last administered on at 20:28; Start 02/13/18 at 09:00; Stop 02/21/18 at 23:54; Status DC Levothyroxine Sodium (Synthroid) 75 mcg DAILYAC PO Last administered on at 09:42; Start 02/13/18 at 07:30; Stop 02/13/18 at 11:19; Status DC Multi-Ingredient Ointment (Analgesic Josephine) 1 speedy PRN QID PRN TP MUSCLE PAIN; Start 02/12/18 at 22:30; Status Cancel Sodium Chloride (Elmer) 1 inch HS OD Last administered on 03/22/18at 19:45; Start 02/13/18 at 21:00 Sorbitol (Sorbitol Solution) 1 ml PRN DAILY PRN PO CONSTIPATION; Start at 22:30; Status Cancel Amlodipine Besylate (Norvasc) 5 mg DAILY PO Last administered on 02/19/18at 13: 30; Start 02/13/18 at 09:00; Stop 02/19/18 at 17:00; Status DC Vitamin D (Vitamin D3) 50,000 unit WEEKLY PO ; Start 02/19/18 at 09:00; Stop at 09:00; Status DC Non-Formulary Medication (Mag Hydrox/ Aluminum Hyd/ Simeth (Maalox Advanced Suspension)) 15 ml PRN AFTMEALHC PRN PO DYSPEPSIA; Start 02/12/18 at 22:30; Stop 02/12/18 at 22:41; Status DC Non-Formulary Medication (Magnesium Hydroxide (Milk Of Magnesia)) 2,400 mg PRN DAILY PRN PO CONSTIPATION; Start 02/12/18 at 22:30; Stop 02/12/18 at 22:41; Status DC Polyethylene Glycol (miraLAX) 17 gm DAILY PO Last administered on 02/18/18at 09: 15; Start 02/13/18 at 09:00; Stop 02/25/18 at 14:01; Status DC Artificial Tears (Refresh Classic) 1 drop TID OU Last administered on at 21:17; Start 02/13/18 at 09:00; Stop 02/25/18 at 14:01; Status DC Non-Formulary Medication (Sodium Chloride (Elmer-128)) 1 drop HS OD ; Start 02/13 at 21:00; Stop 02/13/18 at 21:00; Status DC Levothyroxine Sodium (Synthroid) 75 mcg DAILY06 PO Last administered on at 05:42; Start 02/14/18 at 06:00 Sorbitol (Sorbitol Solution) 30 ml PRN DAILY PRN PO CONSTIPATION; Start at 11:00 Estradiol (Estrace) 1 speedy QMTH VG Last administered on 03/12/18at 16:00; Start 02/16/18 at 21:00 Info (FLU VACCINE per PROTOCOL) 1 ea PRN 1X PRN MC PER PROTOCOL; Start at 09:00; Status UNV Risperidone (RisperDAL) 1.5 mg QHS PO Last administered on 02/21/18at 19:26; Start 02/14/18 at 21:00; Stop 02/21/18 at 23:54; Status DC Bupropion HCl (Wellbutrin Xl) 150 mg DAILY PO Last administered on 02/19/18at 13 :30; Start 02/15/18 at 09:00; Stop 02/19/18 at 16:58; Status DC Quetiapine Fumarate (SEROquel) 25 mg QHS PO Last administered on 02/17/18at 20: 28; Start 02/15/18 at 21:00; Stop 02/19/18 at 11:29; Status DC Hydroxyzine HCl (Atarax) 10 mg PRN Q2HR PRN PO anxiety Last administered on 02/23/18at 21:17; Start 02/16/18 at 16:30 Benztropine Mesylate (Cogentin) 0.5 mg DAILY PO Last administered on at 10:35; Start 02/18/18 at 09:00; Stop 03/04/18 at 18:50; Status DC Mirtazapine (Remeron) 7.5 mg QHS PO Last administered on 02/22/18at 17:16; Start 02/17/18 at 21:00; Stop 02/23/18 at 16:10; Status DC Trazodone HCl (Desyrel) 50 mg PRN QHS PRN PO SEE ADMIN INSTRUCTIONS; Start 02/17/18 at 16:45; Stop 02/19/18 at 11:29; Status DC Trazodone HCl (Desyrel) 100 mg QHS PO ; Start 02/19/18 at 21:00; Stop 02/19/18 at 21:00; Status DC Trazodone HCl (Desyrel) 100 mg PRN QHS PRN PO SEE ADMIN INSTRUCTIONS; Start at 11:30 Trazodone HCl (Desyrel) 100 mg QHS PO Last administered on 02/28/18at 19:53; Start 02/19/18 at 21:00; Stop 03/01/18 at 07:19; Status DC Amlodipine Besylate (Norvasc) 10 mg DAILY PO Last administered on 03/22/18at 08: 09; Start 02/20/18 at 09:00 Amlodipine Besylate (Norvasc) 5 mg 1X ONCE PO Last administered on 02/19/18at 17:11; Start 02/19/18 at 17:00; Stop 02/19/18 at 17:06; Status DC Atorvastatin Calcium (Lipitor) 20 mg DAILYWSUP PO Last administered on at 17:17; Start 02/22/18 at 17:00 Carbamazepine (TEGretol) 300 mg BIDWMEALS PO ; Start 02/22/18 at 17:00; Stop at 17:00; Status DC Lactobacillus Rhamnosus (Culturelle) 1 cap BIDWMEALS PO Last administered on at 07:38; Start 02/22/18 at 08:00; Stop 02/28/18 at 17:12; Status DC Risperidone (RisperDAL) 1.5 mg DAILYWSUP PO Last administered on 03/01/18at 16: 35; Start 02/22/18 at 17:00; Stop 03/01/18 at 18:37; Status DC Carbamazepine (TEGretol) 300 mg BIDWMEALS PO Last administered on 02/24/18at 17: 26; Start 02/22/18 at 08:00; Stop 02/25/18 at 09:39; Status DC Mirtazapine (Remeron) 15 mg QHS PO Last administered on 03/02/18at 17:07; Start 02/23/18 at 17:00; Stop 03/02/18 at 17:12; Status DC Divalproex Sodium (Depakote Er) 500 mg QHS PO Last administered on 02/28/18at 19:53; Start 02/25/18 at 21:00; Stop 03/01/18 at 07:19; Status DC Polyethylene Glycol (miraLAX) 17 gm PRN DAILY PRN PO CONSTIPATION; Start 02/25 at 14:00 Artificial Tears (Refresh Classic) 1 drop PRN TID PRN OU DRY EYE; Start at 14:00 Clozapine (Clozaril) 25 mg QHS PO Last administered on 02/28/18at 19:52; Start 02/25/18 at 21:00; Stop 03/01/18 at 07:19; Status DC Clozapine (Clozaril) 25 mg DAILY@1700 PO Last administered on 03/02/18at 17:07 ; Start 03/01/18 at 17:00; Stop 03/02/18 at 22:35; Status DC Divalproex Sodium (Depakote Er) 500 mg DAILY@1700 PO Last administered on 03/11at 16:18; Start 03/01/18 at 17:00; Stop 03/12/18 at 11:49; Status DC Trazodone HCl (Desyrel) 100 mg DAILY@1700 PO Last administered on 03/22/18 17: 18; Start 03/01/18 at 17:00 Risperidone (RisperDAL CONSTA) 25 mg Q2WKS IM ; Start 03/02/18 at 09:00; Stop 03/02/18 at 09:00; Status DC Risperidone (RisperDAL) 1.5 mg DAILYWSUP SL Last administered on 03/02/18at 17: 14; Start 03/02/18 at 17:00; Stop 03/02/18 at 18:13; Status DC Risperidone (RisperDAL CONSTA) 25 mg Q2WKS IM Last administered on 03/17/18at 13:48; Start 03/03/18 at 09:00; Stop 03/22/18 at 21:47; Status DC Clotrimazole (Lotrimin Af) 1 speedy PRN BID PRN TP itching Last administered on at 09:55; Start 03/02/18 at 10:30 Nystatin (Nystop) 1 speedy PRN BID PRN TP YEAST INFECTION; Start 03/02/18 at 10: 30 Mirtazapine (Remeron) 15 mg DAILYWSUP PO Last administered on 03/22/18at 17:17; Start 03/03/18 at 17:00 Risperidone (RisperDAL) 1.5 mg DAILYWSUP PO Last administered on 03/22/18at 17: 18; Start 03/02/18 at 18:15 Clozapine (Clozaril) 50 mg DAILY@1700 PO Last administered on 03/08/18at 18:03 ; Start 03/03/18 at 17:00; Stop 03/09/18 at 16:53; Status DC Clozapine (Clozaril) 75 mg DAILY@1700 PO Last administered on 03/15/18at 17:11 ; Start 03/09/18 at 17:00; Stop 03/16/18 at 16:58; Status DC Divalproex Sodium (Depakote Er) 500 mg DAILY@1700 PO Last administered on at 17:17; Start 03/12/18 at 17:00 Divalproex Sodium (Depakote Er) 250 mg DAILY@1700 PO Last administered on at 17:18; Start 03/12/18 at 17:00 Clozapine (Clozaril) 100 mg DAILY@1700 PO Last administered on 03/22/18at 17:17 ; Start 03/16/18 at 17:15 Lidocaine (Lidoderm) 1 patch DAILY TD ; Start 03/23/18 at 09:00 Miscellaneous (Lidoderm Patch Removal) 1 ea QHS MC ; Start 03/23/18 at 21:00 Active Scripts Active Reported Sorbitol (Sorbitol Solution) 1 Ml Solution 30 Ml PO PRN DAILY PRN Trazodone Hcl 50 Mg Tablet 50 Mg PO QHS Tegretol (Carbamazepine) 200 Mg Tablet 150 Mg PO BID Risperidone 1 Mg Tablet 1 Mg PO QHS Norvasc (Amlodipine Besylate) 5 Mg Tablet 5 Mg PO DAILY Elmer-128 (Sodium Chloride) 3.5 Gm Oint...g. 1 Speedy OP HS Miralax (Polyethylene Glycol 3350) 17 Gm Powd.pack 17 Gm PO DAILY Milk Of Magnesia (Magnesium Hydroxide) 2,400 Mg/10 Ml Oral.susp 30 Ml PO PRN DAILY PRN Kelayres Carbonate 450 Mg Tablet.er 450 Mg PO HS Kelayres Carbonate 150 Mg Capsule 300 Mg PO DAILY Lipitor (Atorvastatin Calcium) 20 Mg Tablet 20 Mg PO QHS Levothyroxine Sodium 75 Mcg Tablet 75 Mcg PO DAILYAC Estrace (Estradiol) 42.5 Gm Cream.appl 1 Speedy VG 2X WEEK Q MON, THURS Vitamin D2 (Ergocalciferol (Vitamin D2)) 50,000 Unit Capsule 50,000 Unit PO WEEKLY Endocet 10-325 Mg Tablet (Oxycodone Hcl/Acetaminophen) 1 Each Tablet 1 Each PO PRN Q6HRS PRN Vitamin B-12 (Cyanocobalamin (Vitamin B-12)) 1,000 Mcg Tablet 1,000 Mcg PO DAILY Benztropine Mesylate 0.5 Mg Tablet 0.5 Mg PO BID Tylenol (Acetaminophen) 325 Mg Tablet 650 Mg PO PRN Q6HRS PRN Maalox Advanced Suspension (Mag Hydrox/Aluminum Hyd/Simeth) 355 Ml Oral.susp 15 Ml PO PRN AFTMEALHC PRN Analgesic Josephine (Methyl Salicylate/Menthol) 28 Gm Oint...g. 1 Speedy TP PRN QID PRN Kelayres Carbonate 300 Mg Capsule 450 Mg PO QHS Benztropine Mesylate 0.5 Mg Tablet 0.5 Mg PO QHS Risperidone 1 Mg Tablet 1.5 Mg PO QHS Refresh Classic Eye Drops (Polyvinyl Alcohol/Povidone/Pf) 1 Each Droperette 1 Each OU TID Culturelle (Lactobacillus Rhamnosus Gg) 1 Each Cap.sprink 1 Each PO BID Trazodone Hcl 50 Mg Tablet 50 Mg PO PRN QHS PRN Trazodone Hcl 50 Mg Tablet 50 Mg PO HS Tegretol (Carbamazepine) 200 Mg Tablet 300 Mg PO BID Norvasc (Amlodipine Besylate) 5 Mg Tablet 5 Mg PO DAILY Elmer-128 (Sodium Chloride) 15 Ml Drops 1 Drop OD HS Miralax (Polyethylene Glycol 3350) 17 Gm Powd.pack 17 Gm PO DAILY Milk Of Magnesia (Magnesium Hydroxide) 2,400 Mg/10 Ml Oral.susp 2,400 Mg PO PRN DAILY PRN Kelayres Carbonate 300 Mg Tablet 300 Mg PO DAILY Lipitor (Atorvastatin Calcium) 20 Mg Tablet 20 Mg PO QHS Levothyroxine Sodium 75 Mcg Tablet 75 Mcg PO DAILYAC Estrace (Estradiol) 42.5 Gm Cream.appl 1 Gm VG HS QMON/THURS Insert at bedtime on Friday and Vitamin D2 (Ergocalciferol (Vitamin D2)) 50,000 Unit Capsule 50,000 Unit PO WEEKLY Endocet 10-325 Mg Tablet (Oxycodone Hcl/Acetaminophen) 1 Each Tablet 1 Tab PO PRN Q6HRS PRN Tylenol (Acetaminophen) 325 Mg Tablet 650 Mg PO PRN Q6HRS PRN I have reviewed the current psychotropics carefully including drug interactions. Risk benefit ratio favors no change other than as noted in my dictated progress note. 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
[2018-03-23] MEDS: LEVOTHYROXINE 75 MCG TABLET PO SCH (05:23)
[2018-03-23 06:14] VITALS: BP 127/77
[2018-03-23 07:36] LABS: BASO % 0 % (0-3); EOS # 0.3 x10^3/uL (0.0-0.7); EOS % 4 % (0-3); HEMATOCRIT 35.7 % (36.0-47.0); HEMOGLOBIN 12.3 g/dL (12.0-15.5); LYMPH # 1.2 x10^3/uL (1.0-4.8); LYMPH % 16 % (24-48); MEAN CORPUSCULAR HEMOGLOBIN 30 pg (25-35); MEAN CORPUSCULAR HGB CONC 34 g/dL (31-37); MEAN CORPUSCULAR VOLUME 88 fL (79-100); MONO % 13 % (0-9); NEUT % 66 % (31-73); PLATELET COUNT 193 x10^3/uL (140-400); RED BLOOD COUNT 4.06 x10^6/uL (3.50-5.40); RED CELL DISTRIBUTION WIDTH 12.8 % (11.5-14.5); WHITE BLOOD COUNT 7.5 x10^3/uL (4.0-11.0)
[2018-03-23 07:45] LABS: ALBUMIN 2.7 g/dL (3.4-5.0); ALBUMIN/GLOBULIN RATIO 0.8 (1.0-1.7); CALCIUM 9.5 mg/dL (8.5-10.1); CREATININE 0.7 mg/dL (0.6-1.0); POTASSIUM 4.2 mmol/L (3.5-5.1); TOTAL BILIRUBIN 0.3 mg/dL (0.2-1.0); TOTAL PROTEIN 6.3 g/dL (6.4-8.2)
[2018-03-23] MEDS: amLODIPine BESYLATE 10 MG TABLET PO SCH (07:48)
[2018-03-23] MEDS: CYANOCOBALAMIN (VITAMIN B-12) 1,000 MCG TABLET. PO SCH (07:48)
[2018-03-23] MEDS: LIDOCAINE (700MG/PATCH) PATCH. TD SCH (07:49)
[2018-03-23 15:11] VITALS: BP 110/72
[2018-03-23] MEDS ORDERED: CLOT12CR2 TP (15:35)
[2018-03-23] MEDS ORDERED: LIDO700A39 TP (15:36)
[2018-03-23] MEDS ORDERED: NYST15PO9 TP (15:39)
[2018-03-23] MEDS ORDERED: DIVA500T4 PO (15:43)
[2018-03-23] MEDS ORDERED: MIRT15TA PO (15:45)
[2018-03-23] MEDS ORDERED: CLOZ100T7 PO (15:46)
[2018-03-23] MEDS ORDERED: HYDR10TA2 PO (15:48)
[2018-03-23] MEDS: ESTRADIOL 0.01% VAGINAL CREAM 42.5GM TUBE. VG SCH (16:00)
[2018-03-23] MEDS ORDERED: cloZAPine 25 MG TABLET PO SCH ×2 (17:00→17:04)
[2018-03-23] MEDS ORDERED: cloZAPine 100 MG TABLET PO SCH (17:00)
[2018-03-23] MEDS ORDERED: risperiDONE 1 MG TABLET. PO SCH (17:00)
[2018-03-23] MEDS: DIVALPROEX ER 250 MG TAB.ER.24H. PO SCH (17:01)
[2018-03-23] MEDS: ATORVASTATIN CALCIUM 20 MG TABLET PO SCH (17:01)
[2018-03-23] MEDS: traZODone 100 MG TABLET. PO SCH (17:01)
[2018-03-23] MEDS: MIRTAZAPINE 15 MG TABLET PO SCH (17:01)
[2018-03-23] MEDS: DIVALPROEX ER 500 MG TAB.ER.24H PO SCH (17:10)
--- NOTE | 2018-03-23 19:35 | PN ---
DATE: 03/21/2018 PSYCHIATRIC PROGRESS NOTE This late entry 03/21/2018 covers elements, not covered in my initial note. SUBJECTIVE: I met with the patient in the evening. The patient slept 8 hours previous night. Overall, she is doing better per nursing report and during my individual visit with her. She is more verbal, less afraid, less paranoid. Speech is less pressured. REVIEW OF SYSTEMS: No CV, , pulmonary, eye, ENT system symptoms on review. MENTAL STATUS EXAM: Oriented reasonably to herself and situation. Speech is coherent, often responses monosyllabic, but more appropriate. Thought processes appear more goal directed. Abstraction fair, computation impaired, language function intact. Mood and affect remain somewhat anxious still, but improved. LABORATORY DATA: Reviewed. No suicidal ideation. IMPRESSION: Schizoaffective disorder, bipolar type, mixed with psychotic features, in partial remission. PLAN: Continue current psychotropics. Valproic acid level therapeutic at 68. May consider stopping Risperdal Consta and gradually further increase the Clozaril. Maintain oral Risperdal ultimately with a plan to stop it gradually. MAN Rox WATT MD DR: SANCHEZ/fredrick JOB#: [id number] / [id number]
[2018-03-23] MEDS: SODIUM CHLORIDE 5% OPHTH OINTMENT 3.5GM TUBE. OD SCH (20:09)
[2018-03-23] MEDS ORDERED: PATCH REMOVAL. MC SCH (21:00)
--- NOTE | 2018-03-23 23:10 | PDOC ---
Exam Note: Julian Note: Please also refer to the separate dictated note~for this date of service dictated separately.~Patient seen individually. Discussed the patient with Nursing staff reviewed the chart.~Reviewed interim history and current functioning. Reviewed vital signs,~Labs/ Radiology~and current medications noted below. Continue current treatment with the changes noted in the dictated addendum note Assessment: Vital Signs: Vital Signs Date Time Temp Pulse Resp B/P (MAP) Pulse Ox O2 Delivery O2 Flow Rate FiO2 03/23/18 15:11 99.0 58 16 110/72 (85) 97 Room Air I&O Intake and Output 03/23/18 07:00 Intake Total 1440 ml Balance 1440 ml Intake Oral 1440 ml # Voids 1 Labs: Laboratory Tests Test 03/23/18 07:09 White Blood Count 7.5 x10^3/uL (4.0-11.0) Red Blood Count 4.06 x10^6/uL (3.50-5.40) Hemoglobin 12.3 g/dL (12.0-15.5) Hematocrit 35.7 % (36.0-47.0) L Mean Corpuscular Volume 88 fL (79-100) Mean Corpuscular Hemoglobin 30 pg (25-35) Mean Corpuscular Hemoglobin Concent 34 g/dL (31-37) Red Cell Distribution Width 12.8 % (11.5-14.5) Platelet Count 193 x10^3/uL (140-400) Neutrophils (%) (Auto) 66 % (31-73) Lymphocytes (%) (Auto) 16 % (24-48) L Monocytes (%) (Auto) 13 % (0-9) H Eosinophils (%) (Auto) 4 % (0-3) H Basophils (%) (Auto) 0 % (0-3) Neutrophils # (Auto) 5.0 x10^3uL (1.8-7.7) Lymphocytes # (Auto) 1.2 x10^3/uL (1.0-4.8) Monocytes # (Auto) 1.0 x10^3/uL (0.0-1.1) Eosinophils # (Auto) 0.3 x10^3/uL (0.0-0.7) Basophils # (Auto) 0.0 x10^3/uL (0.0-0.2) Sodium Level 143 mmol/L (136-145) Potassium Level 4.2 mmol/L (3.5-5.1) Chloride Level 108 mmol/L (98-107) H Carbon Dioxide Level 28 mmol/L (21-32) Anion Gap 7 (6-14) Blood Urea Nitrogen 10 mg/dL (7-20) Creatinine 0.7 mg/dL (0.6-1.0) Estimated GFR (Cockcroft-Gault) 83.0 BUN/Creatinine Ratio 14 (6-20) Glucose Level 106 mg/dL (70-99) H Calcium Level 9.5 mg/dL (8.5-10.1) Total Bilirubin 0.3 mg/dL (0.2-1.0) Aspartate Amino Transferase (AST) 13 U/L (15-37) L Alanine Aminotransferase (ALT) 16 U/L (14-59) Alkaline Phosphatase 92 U/L (46-116) Total Protein 6.3 g/dL (6.4-8.2) L Albumin 2.7 g/dL (3.4-5.0) L Albumin/Globulin Ratio 0.8 (1.0-1.7) L Current Medications: Meds: Current Medications Acetaminophen (Tylenol) 650 mg PRN Q6HRS PRN PO PAIN / TEMP Last administered on 03/23/18at 20:09; Start 02/12/18 at 21:45 Multi-Ingredient Ointment (Analgesic Badger) 1 speedy PRN QID PRN TP MUSCLE PAIN; Start 02/12/18 at 21:45 Al Hydroxide/Mg Hydroxide (Mylanta Plus Xs) 15 ml PRN AFTMEALHC PRN PO DYSPEPSIA; Start 02/12/18 at 21:45 Magnesium Hydroxide (Milk Of Magnesia) 2,400 mg PRN QHS PRN PO CONSTIPATION; Start 02/12/18 at 21:45 Carbamazepine (TEGretol) 150 mg BID PO ; Start 02/13/18 at 09:00; Stop 02/13/18 at 09:00; Status DC Carbamazepine (TEGretol) 300 mg BID PO Last administered on 02/21/18at 19:29; Start 02/13/18 at 09:00; Stop 02/21/18 at 23:54; Status DC Oxycodone/ Acetaminophen (Percocet 10/325) 1 tab PRN Q6HRS PRN PO PAIN Last administered on 02/23/18at 21:17; Start 02/12/18 at 22:30 Oxycodone/ Acetaminophen (Percocet 10/325) 1 tab PRN Q6HRS PRN PO PAIN; Start 02/12/18 at 22:30; Stop 02/12/18 at 22:40; Status DC Benztropine Mesylate (Cogentin) 0.5 mg BID PO Last administered on 02/17/18at 07 :25; Start 02/13/18 at 09:00; Stop 02/17/18 at 16:35; Status DC [place] Carbonate 300 mg DAILY PO Last administered on 02/18/18at 09:14; Start 02/13/18 at 09:00; Stop 02/19/18 at 11:29; Status DC [place] Carbonate 450 mg QHS PO Last administered on 02/17/18at 20:24; Start at 21:00; Stop 02/19/18 at 11:44; Status DC Risperidone (RisperDAL) 1 mg QHS PO Last administered on 02/13/18at 19:52; Start 02/13/18 at 21:00; Stop 02/14/18 at 19:16; Status DC Trazodone HCl (Desyrel) 50 mg QHS PO Last administered on 02/17/18at 20:24; Start 02/13/18 at 21:00; Stop 02/19/18 at 11:29; Status DC Acetaminophen (Tylenol) 650 mg PRN Q6HRS PRN PO PAIN / TEMP; Start 02/12/18 at 22:30; Stop 02/12/18 at 22:32; Status DC Atorvastatin Calcium (Lipitor) 20 mg QHS PO Last administered on 02/20/18at 20: 28; Start 02/13/18 at 21:00; Stop 02/21/18 at 23:54; Status DC Cyanocobalamin (Vitamin B-12) 1,000 mcg DAILY PO Last administered on at 07:48; Start 02/13/18 at 09:00 Estradiol (Estrace) 1 speedy HS VG ; Start 02/13/18 at 21:00; Stop 02/14/18 at 00: 47; Status DC Lactobacillus Rhamnosus (Culturelle) 1 cap BID PO Last administered on at 20:28; Start 02/13/18 at 09:00; Stop 02/21/18 at 23:54; Status DC Levothyroxine Sodium (Synthroid) 75 mcg DAILYAC PO Last administered on at 09:42; Start 02/13/18 at 07:30; Stop 02/13/18 at 11:19; Status DC Multi-Ingredient Ointment (Analgesic Badger) 1 speedy PRN QID PRN TP MUSCLE PAIN; Start 02/12/18 at 22:30; Status Cancel Sodium Chloride (Elmer) 1 inch HS OD Last administered on 03/23/18at 20:09; Start 02/13/18 at 21:00 Sorbitol (Sorbitol Solution) 1 ml PRN DAILY PRN PO CONSTIPATION; Start at 22:30; Status Cancel Amlodipine Besylate (Norvasc) 5 mg DAILY PO Last administered on 02/19/18at 13: 30; Start 02/13/18 at 09:00; Stop 02/19/18 at 17:00; Status DC Vitamin D (Vitamin D3) 50,000 unit WEEKLY PO ; Start 02/19/18 at 09:00; Stop at 09:00; Status DC Non-Formulary Medication (Mag Hydrox/ Aluminum Hyd/ Simeth (Maalox Advanced Suspension)) 15 ml PRN AFTMEALHC PRN PO DYSPEPSIA; Start 02/12/18 at 22:30; Stop 02/12/18 at 22:41; Status DC Non-Formulary Medication (Magnesium Hydroxide (Milk Of Magnesia)) 2,400 mg PRN DAILY PRN PO CONSTIPATION; Start 02/12/18 at 22:30; Stop 02/12/18 at 22:41; Status DC Polyethylene Glycol (miraLAX) 17 gm DAILY PO Last administered on 02/18/18at 09: 15; Start 02/13/18 at 09:00; Stop 02/25/18 at 14:01; Status DC Artificial Tears (Refresh Classic) 1 drop TID OU Last administered on at 21:17; Start 02/13/18 at 09:00; Stop 02/25/18 at 14:01; Status DC Non-Formulary Medication (Sodium Chloride (Elmer-128)) 1 drop HS OD ; Start 02/13 at 21:00; Stop 02/13/18 at 21:00; Status DC Levothyroxine Sodium (Synthroid) 75 mcg DAILY06 PO Last administered on at 05:23; Start 02/14/18 at 06:00 Sorbitol (Sorbitol Solution) 30 ml PRN DAILY PRN PO CONSTIPATION; Start at 11:00 Estradiol (Estrace) 1 speedy QMTH VG Last administered on 03/12/18at 16:00; Start 02/16/18 at 21:00 Info (FLU VACCINE per PROTOCOL) 1 ea PRN 1X PRN MC PER PROTOCOL; Start at 09:00; Status UNV Risperidone (RisperDAL) 1.5 mg QHS PO Last administered on 02/21/18at 19:26; Start 02/14/18 at 21:00; Stop 02/21/18 at 23:54; Status DC Bupropion HCl (Wellbutrin Xl) 150 mg DAILY PO Last administered on 02/19/18at 13 :30; Start 02/15/18 at 09:00; Stop 02/19/18 at 16:58; Status DC Quetiapine Fumarate (SEROquel) 25 mg QHS PO Last administered on 02/17/18at 20: 28; Start 02/15/18 at 21:00; Stop 02/19/18 at 11:29; Status DC Hydroxyzine HCl (Atarax) 10 mg PRN Q2HR PRN PO anxiety Last administered on 02/23/18at 21:17; Start 02/16/18 at 16:30 Benztropine Mesylate (Cogentin) 0.5 mg DAILY PO Last administered on at 10:35; Start 02/18/18 at 09:00; Stop 03/04/18 at 18:50; Status DC Mirtazapine (Remeron) 7.5 mg QHS PO Last administered on 02/22/18at 17:16; Start 02/17/18 at 21:00; Stop 02/23/18 at 16:10; Status DC Trazodone HCl (Desyrel) 50 mg PRN QHS PRN PO SEE ADMIN INSTRUCTIONS; Start 02/17/18 at 16:45; Stop 02/19/18 at 11:29; Status DC Trazodone HCl (Desyrel) 100 mg QHS PO ; Start 02/19/18 at 21:00; Stop 02/19/18 at 21:00; Status DC Trazodone HCl (Desyrel) 100 mg PRN QHS PRN PO SEE ADMIN INSTRUCTIONS; Start at 11:30 Trazodone HCl (Desyrel) 100 mg QHS PO Last administered on 02/28/18at 19:53; Start 02/19/18 at 21:00; Stop 03/01/18 at 07:19; Status DC Amlodipine Besylate (Norvasc) 10 mg DAILY PO Last administered on 03/23/18at 07: 48; Start 02/20/18 at 09:00 Amlodipine Besylate (Norvasc) 5 mg 1X ONCE PO Last administered on 02/19/18at 17:11; Start 02/19/18 at 17:00; Stop 02/19/18 at 17:06; Status DC Atorvastatin Calcium (Lipitor) 20 mg DAILYWSUP PO Last administered on at 17:01; Start 02/22/18 at 17:00 Carbamazepine (TEGretol) 300 mg BIDWMEALS PO ; Start 02/22/18 at 17:00; Stop at 17:00; Status DC Lactobacillus Rhamnosus (Culturelle) 1 cap BIDWMEALS PO Last administered on at 07:38; Start 02/22/18 at 08:00; Stop 02/28/18 at 17:12; Status DC Risperidone (RisperDAL) 1.5 mg DAILYWSUP PO Last administered on 03/01/18at 16: 35; Start 02/22/18 at 17:00; Stop 03/01/18 at 18:37; Status DC Carbamazepine (TEGretol) 300 mg BIDWMEALS PO Last administered on 02/24/18at 17: 26; Start 02/22/18 at 08:00; Stop 02/25/18 at 09:39; Status DC Mirtazapine (Remeron) 15 mg QHS PO Last administered on 03/02/18at 17:07; Start 02/23/18 at 17:00; Stop 03/02/18 at 17:12; Status DC Divalproex Sodium (Depakote Er) 500 mg QHS PO Last administered on 02/28/18at 19:53; Start 02/25/18 at 21:00; Stop 03/01/18 at 07:19; Status DC Polyethylene Glycol (miraLAX) 17 gm PRN DAILY PRN PO CONSTIPATION; Start 02/25 at 14:00 Artificial Tears (Refresh Classic) 1 drop PRN TID PRN OU DRY EYE; Start at 14:00 Clozapine (Clozaril) 25 mg QHS PO Last administered on 02/28/18at 19:52; Start 02/25/18 at 21:00; Stop 03/01/18 at 07:19; Status DC Clozapine (Clozaril) 25 mg DAILY@1700 PO Last administered on 03/02/18at 17:07 ; Start 03/01/18 at 17:00; Stop 03/02/18 at 22:35; Status DC Divalproex Sodium (Depakote Er) 500 mg DAILY@1700 PO Last administered on 03/11at 16:18; Start 03/01/18 at 17:00; Stop 03/12/18 at 11:49; Status DC Trazodone HCl (Desyrel) 100 mg DAILY@1700 PO Last administered on 03/23/18at 17: 01; Start 03/01/18 at 17:00 Risperidone (RisperDAL CONSTA) 25 mg Q2WKS IM ; Start 03/02/18 at 09:00; Stop 03/02/18 at 09:00; Status DC Risperidone (RisperDAL) 1.5 mg DAILYWSUP SL Last administered on 03/02/18at 17: 14; Start 03/02/18 at 17:00; Stop 03/02/18 at 18:13; Status DC Risperidone (RisperDAL CONSTA) 25 mg Q2WKS IM Last administered on 03/17/18at 13:48; Start 03/03/18 at 09:00; Stop 03/22/18 at 21:47; Status DC Clotrimazole (Lotrimin Af) 1 speedy PRN BID PRN TP itching Last administered on at 09:55; Start 03/02/18 at 10:30 Nystatin (Nystop) 1 speedy PRN BID PRN TP YEAST INFECTION; Start 03/02/18 at 10: 30 Mirtazapine (Remeron) 15 mg DAILYWSUP PO Last administered on 03/23/18 17:01; Start 03/03/18 at 17:00 Risperidone (RisperDAL) 1.5 mg DAILYWSUP PO Last administered on 03/22/18 17: 18; Start 03/02/18 at 18:15; Stop 03/23/18 at 16:49; Status DC Clozapine (Clozaril) 50 mg DAILY@1700 PO Last administered on 03/08/18at 18:03 ; Start 03/03/18 at 17:00; Stop 03/09/18 at 16:53; Status DC Clozapine (Clozaril) 75 mg DAILY@1700 PO Last administered on 03/15/18 17:11 ; Start 03/09/18 at 17:00; Stop 03/16/18 at 16:58; Status DC Divalproex Sodium (Depakote Er) 500 mg DAILY@1700 PO Last administered on 17:10; Start 03/12/18 at 17:00 Divalproex Sodium (Depakote Er) 250 mg DAILY@1700 PO Last administered on 17:01; Start 03/12/18 at 17:00 Clozapine (Clozaril) 100 mg DAILY@1700 PO Last administered on 03/22/18 17:17 ; Start 03/16/18 at 17:15; Stop 03/23/18 at 16:48; Status DC Lidocaine (Lidoderm) 1 patch DAILY TD Last administered on 03/23/18at 07:49; Start 03/23/18 at 09:00 Miscellaneous (Lidoderm Patch Removal) 1 ea [facility] Last administered on at 20:09; Start 03/23/18 at 21:00 Clozapine (Clozaril) 100 mg DAILY@1700 PO Last administered on 03/23/18 17:12 ; Start 03/23/18 at 17:00 Risperidone (RisperDAL) 1 mg DAILYWSUP PO Last administered on 03/23/18at 17:11 ; Start 03/23/18 at 17:00 Clozapine (Clozaril) 100 mg DAILY@1700 PO ; Start 11/5/18 at 17:00; Stop at 17:04; Status DC Clozapine (Clozaril) 25 mg DAILY@1700 PO Last administered on 03/23/18at 17:11; Start 03/23/18 at 17:04 Active Scripts Active Reported Hydroxyzine Hcl 10 Mg Tablet 10 Mg PO PRN Q2HR PRN Clozapine 100 Mg Tablet 2 Tab PO 1700 Remeron (Mirtazapine) 15 Mg Tablet 1 Tab PO DAILYWSUP Depakote Er (Divalproex Sodium) 500 Mg Tab.er.24h 1 Tab PO 1700 Nystatin 15 Gm Powder 1 Speedy TP BID Lidocaine 1 Each Adh..patch 1 Each TP DAILY Lotrimin Af (Clotrimazole) 12 Gm Cream..g. 1 Speedy TP BID PRN Sorbitol (Sorbitol Solution) 1 Ml Solution 30 Ml PO PRN DAILY PRN Trazodone Hcl 50 Mg Tablet 50 Mg PO QHS Elmer-128 (Sodium Chloride) 3.5 Gm Oint...g. 1 Speedy OP HS [place] Carbonate 450 Mg Tablet.er 450 Mg PO HS Lipitor (Atorvastatin Calcium) 20 Mg Tablet 20 Mg PO QHS Levothyroxine Sodium 75 Mcg Tablet 75 Mcg PO DAILYAC Estrace (Estradiol) 42.5 Gm Cream.appl 1 Speedy VG 2X WEEK Q FRI, THURS Vitamin D2 (Ergocalciferol (Vitamin D2)) 50,000 Unit Capsule 50,000 Unit PO WEEKLY Endocet 10-325 Mg Tablet (Oxycodone Hcl/Acetaminophen) 1 Each Tablet 1 Each PO PRN Q6HRS PRN Vitamin B-12 (Cyanocobalamin (Vitamin B-12)) 1,000 Mcg Tablet 1,000 Mcg PO DAILY Benztropine Mesylate 0.5 Mg Tablet 0.5 Mg PO BID Maalox Advanced Suspension (Mag Hydrox/Aluminum Hyd/Simeth) 355 Ml Oral.susp 15 Ml PO PRN AFTMEALHC PRN Analgesic Badger (Methyl Salicylate/Menthol) 28 Gm Oint...g. 1 Speedy TP PRN QID PRN Risperidone 1 Mg Tablet 1.5 Mg PO QHS Refresh Classic Eye Drops (Polyvinyl Alcohol/Povidone/Pf) 1 Each Droperette 1 Each OU TID Culturelle (Lactobacillus Rhamnosus Gg) 1 Each Cap.sprink 1 Each PO BID Trazodone Hcl 50 Mg Tablet 50 Mg PO HS Tegretol (Carbamazepine) 200 Mg Tablet 300 Mg PO BID Norvasc (Amlodipine Besylate) 5 Mg Tablet 5 Mg PO DAILY Miralax (Polyethylene Glycol 3350) 17 Gm Powd.pack 17 Gm PO DAILY Milk Of Magnesia (Magnesium Hydroxide) 2,400 Mg/10 Ml Oral.susp 2,400 Mg PO PRN DAILY PRN [place] Carbonate 300 Mg Tablet 300 Mg PO DAILY Tylenol (Acetaminophen) 325 Mg Tablet 650 Mg PO PRN Q6HRS PRN I have reviewed the current psychotropics carefully including drug interactions. Risk benefit ratio favors no change other than as noted in my dictated progress note. 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
--- NOTE | 2018-03-24 00:34 | PN ---
DATE: 03/22/2018 This late entry, 03/22/2018, covers elements not covered in my initial note. SUBJECTIVE: I met with the patient in the evening at some length. Overall, the patient slept 7 hours previous night. She is doing much better, more coherent, able to engage in a much better conversation with me and nursing staff, less paranoid, complains of bottom hurting after she received the last Risperdal Consta. REVIEW OF SYSTEMS: No CV, , pulmonary, eye, ENT system symptoms on review. MENTAL STATUS EXAM: Oriented to herself and situation. Speech is coherent, less pressured. Abstraction fair, computation impaired, language function intact, attention span short. Mood and affect still somewhat anxious, labile, but improved. Slept 7 hours last night. LABORATORY DATA: Reviewed. IMPRESSION: Bipolar 1 disorder, mixed with psychotic features. Rest unchanged. PLAN: Discontinue the Risperdal Consta since she is compliant with oral medications. Continue rest unchanged including Clozaril, which we may increase following labs on 03/23/2018 and we may then reduce the Risperdal oral as well. MAN Rox WATT MD DR: SANCHEZ/fredrick JOB#: [id number] / [id number]
[2018-03-24] MEDS: LEVOTHYROXINE 75 MCG TABLET PO SCH (06:10)
[2018-03-24 06:19] VITALS: BP 122/64
[2018-03-24 07:36] VITALS: BP 122/64
[2018-03-24] MEDS: CYANOCOBALAMIN (VITAMIN B-12) 1,000 MCG TABLET. PO SCH (07:36)
[2018-03-24] MEDS: amLODIPine BESYLATE 10 MG TABLET PO SCH (07:36)
[2018-03-24] MEDS: LIDOCAINE (700MG/PATCH) PATCH. TD SCH (07:36)
--- NOTE | 2018-03-24 14:48 | PN ---
DATE: 03/23/2018 This is a late entry for date of service 03/23/2018 and covers elements not covered in my initial note. SUBJECTIVE: I met with the patient evening of 03/23/2018. The patient slept 8 hours previous evening. Absolute neutrophil count is 4950. She is compliant with her medications. She is much more verbal, less psychotic, less fearful and was quite conversive with me, which is dramatically different from when she was initially admitted when she was extremely psychotic, fearful, almost paralyzed with fear. She still has some pain in her bottom area where she got her last Risperdal Consta, but there is no cellulitis and skin integrity is preserved. REVIEW OF SYSTEMS: No CV, , pulmonary, eye system symptoms on review. MENTAL STATUS EXAM: Oriented to herself and situation. Speech is coherent, still somewhat at times pressured. Abstraction fair, computation impaired, language function intact, attention span short. Mood and affect, lability is improved. LABORATORY DATA: Reviewed. IMPRESSION: Schizoaffective disorder, bipolar type, mixed with psychotic features, in partial remission; anxiety disorder, unspecified. PLAN: Risperdal Consta has been stopped. The absolute neutrophil count unremarkable. We will increase Clozaril from 100 mg at bedtime to 125 mg at bedtime, reduce the oral Risperdal from 1.5 mg at bedtime to 1 mg with a plan to ultimately taper and stop it as the Clozaril is increased. Continue Depakote at current dosage, level therapeutic at 68. Rest unchanged from initial note including Remeron 15 mg at bedtime. MAN Rox WATT MD DR: SANCHEZ/fredrick JOB#: [id number] / [id number]
--- NOTE | 2018-03-24 19:10 | PDOC ---
Exam Note: Julian Note: Please also refer to the separate dictated note~for this date of service dictated separately.~Patient seen individually. Discussed the patient with Nursing staff reviewed the chart.~Reviewed interim history and current functioning. Reviewed vital signs,~Labs/ Radiology~and current medications noted below. Continue current treatment with the changes noted in the dictated addendum note Assessment: Vital Signs: Vital Signs Date Time Temp Pulse Resp B/P (MAP) Pulse Ox O2 Delivery O2 Flow Rate FiO2 03/24/18 07:36 76 122/64 03/24/18 06:19 97.8 18 98 Room Air I&O Intake and Output 03/24/18 07:00 Intake Total 1320 ml Balance 1320 ml Intake Oral 1320 ml Current Medications: Meds: Current Medications Acetaminophen (Tylenol) 650 mg PRN Q6HRS PRN PO PAIN / TEMP Last administered on 03/23/18at 20:09; Start 02/12/18 at 21:45; Stop 03/24/18 at 11:47; Status DC Multi-Ingredient Ointment (Analgesic Reinbeck) 1 speedy PRN QID PRN TP MUSCLE PAIN; Start 02/12/18 at 21:45; Stop 03/24/18 at 11:47; Status DC Al Hydroxide/Mg Hydroxide (Mylanta Plus Xs) 15 ml PRN AFTMEALHC PRN PO DYSPEPSIA; Start 02/12/18 at 21:45; Stop 03/24/18 at 11:47; Status DC Magnesium Hydroxide (Milk Of Magnesia) 2,400 mg PRN QHS PRN PO CONSTIPATION; Start 02/12/18 at 21:45; Stop 03/24/18 at 11:47; Status DC Carbamazepine (TEGretol) 150 mg BID PO ; Start 02/13/18 at 09:00; Stop 02/13/18 at 09:00; Status DC Carbamazepine (TEGretol) 300 mg BID PO Last administered on 02/21/18at 19:29; Start 02/13/18 at 09:00; Stop 02/21/18 at 23:54; Status DC Oxycodone/ Acetaminophen (Percocet 10/325) 1 tab PRN Q6HRS PRN PO PAIN Last administered on 02/23/18at 21:17; Start 02/12/18 at 22:30; Stop 03/24/18 at 11:47 ; Status DC Oxycodone/ Acetaminophen (Percocet 10/325) 1 tab PRN Q6HRS PRN PO PAIN; Start 02/12/18 at 22:30; Stop 02/12/18 at 22:40; Status DC Benztropine Mesylate (Cogentin) 0.5 mg BID PO Last administered on 02/17/18 07 :25; Start 02/13/18 at 09:00; Stop 02/17/18 at 16:35; Status DC [place] Carbonate 300 mg DAILY PO Last administered on 02/18/18at 09:14; Start 02/13/18 at 09:00; Stop 02/19/18 at 11:29; Status DC [place] Carbonate 450 mg QHS PO Last administered on 02/17/18at 20:24; Start at 21:00; Stop 02/19/18 at 11:44; Status DC Risperidone (RisperDAL) 1 mg QHS PO Last administered on 02/13/18at 19:52; Start 02/13/18 at 21:00; Stop 02/14/18 at 19:16; Status DC Trazodone HCl (Desyrel) 50 mg QHS PO Last administered on 02/17/18at 20:24; Start 02/13/18 at 21:00; Stop 02/19/18 at 11:29; Status DC Acetaminophen (Tylenol) 650 mg PRN Q6HRS PRN PO PAIN / TEMP; Start 02/12/18 at 22:30; Stop 02/12/18 at 22:32; Status DC Atorvastatin Calcium (Lipitor) 20 mg QHS PO Last administered on 02/20/18at 20: 28; Start 02/13/18 at 21:00; Stop 02/21/18 at 23:54; Status DC Cyanocobalamin (Vitamin B-12) 1,000 mcg DAILY PO Last administered on at 07:36; Start 02/13/18 at 09:00; Stop 03/24/18 at 11:47; Status DC Estradiol (Estrace) 1 speedy HS VG ; Start 02/13/18 at 21:00; Stop 02/14/18 at 00: 47; Status DC Lactobacillus Rhamnosus (Culturelle) 1 cap BID PO Last administered on at 20:28; Start 02/13/18 at 09:00; Stop 02/21/18 at 23:54; Status DC Levothyroxine Sodium (Synthroid) 75 mcg DAILYAC PO Last administered on at 09:42; Start 02/13/18 at 07:30; Stop 02/13/18 at 11:19; Status DC Multi-Ingredient Ointment (Analgesic Reinbeck) 1 speedy PRN QID PRN TP MUSCLE PAIN; Start 02/12/18 at 22:30; Status Cancel Sodium Chloride (Elmer) 1 inch HS OD Last administered on 03/23/18at 20:09; Start 02/13/18 at 21:00; Stop 03/24/18 at 11:47; Status DC Sorbitol (Sorbitol Solution) 1 ml PRN DAILY PRN PO CONSTIPATION; Start at 22:30; Status Cancel Amlodipine Besylate (Norvasc) 5 mg DAILY PO Last administered on 02/19/18at 13: 30; Start 02/13/18 at 09:00; Stop 02/19/18 at 17:00; Status DC Vitamin D (Vitamin D3) 50,000 unit WEEKLY PO ; Start 02/19/18 at 09:00; Stop at 09:00; Status DC Non-Formulary Medication (Mag Hydrox/ Aluminum Hyd/ Simeth (Maalox Advanced Suspension)) 15 ml PRN AFTMEALHC PRN PO DYSPEPSIA; Start 02/12/18 at 22:30; Stop 02/12/18 at 22:41; Status DC Non-Formulary Medication (Magnesium Hydroxide (Milk Of Magnesia)) 2,400 mg PRN DAILY PRN PO CONSTIPATION; Start 02/12/18 at 22:30; Stop 02/12/18 at 22:41; Status DC Polyethylene Glycol (miraLAX) 17 gm DAILY PO Last administered on 02/18/18at 09: 15; Start 02/13/18 at 09:00; Stop 02/25/18 at 14:01; Status DC Artificial Tears (Refresh Classic) 1 drop TID OU Last administered on at 21:17; Start 02/13/18 at 09:00; Stop 02/25/18 at 14:01; Status DC Non-Formulary Medication (Sodium Chloride (Elmer-128)) 1 drop HS OD ; Start 02/13 at 21:00; Stop 02/13/18 at 21:00; Status DC Levothyroxine Sodium (Synthroid) 75 mcg DAILY06 PO Last administered on at 06:10; Start 02/14/18 at 06:00; Stop 03/24/18 at 11:47; Status DC Sorbitol (Sorbitol Solution) 30 ml PRN DAILY PRN PO CONSTIPATION; Start at 11:00; Stop 03/24/18 at 11:47; Status DC Estradiol (Estrace) 1 speedy QMTH VG Last administered on 03/12/18at 16:00; Start 02/16/18 at 21:00; Stop 03/24/18 at 11:47; Status DC Info (FLU VACCINE per PROTOCOL) 1 ea PRN 1X PRN MC PER PROTOCOL; Start at 09:00; Status UNV Risperidone (RisperDAL) 1.5 mg QHS PO Last administered on 02/21/18at 19:26; Start 02/14/18 at 21:00; Stop 02/21/18 at 23:54; Status DC Bupropion HCl (Wellbutrin Xl) 150 mg DAILY PO Last administered on 02/19/18at 13 :30; Start 02/15/18 at 09:00; Stop 02/19/18 at 16:58; Status DC Quetiapine Fumarate (SEROquel) 25 mg QHS PO Last administered on 02/17/18at 20: 28; Start 02/15/18 at 21:00; Stop 02/19/18 at 11:29; Status DC Hydroxyzine HCl (Atarax) 10 mg PRN Q2HR PRN PO anxiety Last administered on 02/23/18at 21:17; Start 02/16/18 at 16:30; Stop 03/24/18 at 11:47; Status DC Benztropine Mesylate (Cogentin) 0.5 mg DAILY PO Last administered on at 10:35; Start 02/18/18 at 09:00; Stop 03/04/18 at 18:50; Status DC Mirtazapine (Remeron) 7.5 mg QHS PO Last administered on 02/22/18at 17:16; Start 02/17/18 at 21:00; Stop 02/23/18 at 16:10; Status DC Trazodone HCl (Desyrel) 50 mg PRN QHS PRN PO SEE ADMIN INSTRUCTIONS; Start 02/17/18 at 16:45; Stop 02/19/18 at 11:29; Status DC Trazodone HCl (Desyrel) 100 mg QHS PO ; Start 02/19/18 at 21:00; Stop 02/19/18 at 21:00; Status DC Trazodone HCl (Desyrel) 100 mg PRN QHS PRN PO SEE ADMIN INSTRUCTIONS; Start at 11:30; Stop 03/24/18 at 11:47; Status DC Trazodone HCl (Desyrel) 100 mg QHS PO Last administered on 02/28/18at 19:53; Start 02/19/18 at 21:00; Stop 03/01/18 at 07:19; Status DC Amlodipine Besylate (Norvasc) 10 mg DAILY PO Last administered on 03/24/18at 07: 36; Start 02/20/18 at 09:00; Stop 03/24/18 at 11:47; Status DC Amlodipine Besylate (Norvasc) 5 mg 1X ONCE PO Last administered on 02/19/18at 17:11; Start 02/19/18 at 17:00; Stop 02/19/18 at 17:06; Status DC Atorvastatin Calcium (Lipitor) 20 mg DAILYWSUP PO Last administered on at 17:01; Start 02/22/18 at 17:00; Stop 03/24/18 at 11:47; Status DC Carbamazepine (TEGretol) 300 mg BIDWMEALS PO ; Start 02/22/18 at 17:00; Stop at 17:00; Status DC Lactobacillus Rhamnosus (Culturelle) 1 cap BIDWMEALS PO Last administered on at 07:38; Start 02/22/18 at 08:00; Stop 02/28/18 at 17:12; Status DC Risperidone (RisperDAL) 1.5 mg DAILYWSUP PO Last administered on 03/01/18at 16: 35; Start 02/22/18 at 17:00; Stop 03/01/18 at 18:37; Status DC Carbamazepine (TEGretol) 300 mg BIDWMEALS PO Last administered on 02/24/18at 17: 26; Start 02/22/18 at 08:00; Stop 02/25/18 at 09:39; Status DC Mirtazapine (Remeron) 15 mg QHS PO Last administered on 03/02/18at 17:07; Start 02/23/18 at 17:00; Stop 03/02/18 at 17:12; Status DC Divalproex Sodium (Depakote Er) 500 mg QHS PO Last administered on 02/28/18at 19:53; Start 02/25/18 at 21:00; Stop 03/01/18 at 07:19; Status DC Polyethylene Glycol (miraLAX) 17 gm PRN DAILY PRN PO CONSTIPATION; Start 02/25 at 14:00; Stop 03/24/18 at 11:47; Status DC Artificial Tears (Refresh Classic) 1 drop PRN TID PRN OU DRY EYE; Start at 14:00; Stop 03/24/18 at 11:47; Status DC Clozapine (Clozaril) 25 mg QHS PO Last administered on 02/28/18at 19:52; Start 02/25/18 at 21:00; Stop 03/01/18 at 07:19; Status DC Clozapine (Clozaril) 25 mg DAILY@1700 PO Last administered on 03/02/18at 17:07 ; Start 03/01/18 at 17:00; Stop 03/02/18 at 22:35; Status DC Divalproex Sodium (Depakote Er) 500 mg DAILY@1700 PO Last administered on 03/11at 16:18; Start 03/01/18 at 17:00; Stop 03/12/18 at 11:49; Status DC Trazodone HCl (Desyrel) 100 mg DAILY@1700 PO Last administered on 03/23/18at 17: 01; Start 03/01/18 at 17:00; Stop 03/24/18 at 11:47; Status DC Risperidone (RisperDAL CONSTA) 25 mg Q2WKS IM ; Start 03/02/18 at 09:00; Stop 03/02/18 at 09:00; Status DC Risperidone (RisperDAL) 1.5 mg DAILYWSUP SL Last administered on 03/02/18at 17: 14; Start 03/02/18 at 17:00; Stop 03/02/18 at 18:13; Status DC Risperidone (RisperDAL CONSTA) 25 mg Q2WKS IM Last administered on 03/17/18at 13:48; Start 03/03/18 at 09:00; Stop 03/22/18 at 21:47; Status DC Clotrimazole (Lotrimin Af) 1 speedy PRN BID PRN TP itching Last administered on at 09:55; Start 03/02/18 at 10:30; Stop 03/24/18 at 11:47; Status DC Nystatin (Nystop) 1 speedy PRN BID PRN TP YEAST INFECTION; Start 03/02/18 at 10: 30; Stop 03/24/18 at 11:47; Status DC Mirtazapine (Remeron) 15 mg DAILYWSUP PO Last administered on 03/23/18at 17:01; Start 03/03/18 at 17:00; Stop 03/24/18 at 11:47; Status DC Risperidone (RisperDAL) 1.5 mg DAILYWSUP PO Last administered on 03/22/18at 17: 18; Start 03/02/18 at 18:15; Stop 03/23/18 at 16:49; Status DC Clozapine (Clozaril) 50 mg DAILY@1700 PO Last administered on 03/08/18at 18:03 ; Start 03/03/18 at 17:00; Stop 03/09/18 at 16:53; Status DC Clozapine (Clozaril) 75 mg DAILY@1700 PO Last administered on 03/15/18at 17:11 ; Start 03/09/18 at 17:00; Stop 03/16/18 at 16:58; Status DC Divalproex Sodium (Depakote Er) 500 mg DAILY@1700 PO Last administered on at 17:10; Start 03/12/18 at 17:00; Stop 03/24/18 at 11:47; Status DC Divalproex Sodium (Depakote Er) 250 mg DAILY@1700 PO Last administered on at 17:01; Start 03/12/18 at 17:00; Stop 03/24/18 at 11:47; Status DC Clozapine (Clozaril) 100 mg DAILY@1700 PO Last administered on 03/22/18at 17:17 ; Start 03/16/18 at 17:15; Stop 03/23/18 at 16:48; Status DC Lidocaine (Lidoderm) 1 patch DAILY TD Last administered on 03/24/18at 07:36; Start 03/23/18 at 09:00; Stop 03/24/18 at 11:47; Status DC Miscellaneous (Lidoderm Patch Removal) 1 ea QHS MC Last administered on at 20:09; Start 03/23/18 at 21:00; Stop 03/24/18 at 11:47; Status DC Clozapine (Clozaril) 100 mg DAILY@1700 PO Last administered on 03/23/18at 17:12 ; Start 03/23/18 at 17:00; Stop 03/24/18 at 11:47; Status DC Risperidone (RisperDAL) 1 mg DAILYWSUP PO Last administered on 03/23/18at 17:11 ; Start 03/23/18 at 17:00; Stop 03/24/18 at 11:47; Status DC Clozapine (Clozaril) 100 mg DAILY@1700 PO ; Start 03/23/18 at 17:00; Stop at 17:04; Status DC Clozapine (Clozaril) 25 mg DAILY@1700 PO Last administered on 03/23/18at 17:11; Start 03/23/18 at 17:04; Stop 03/24/18 at 11:47; Status DC Active Scripts Active Reported Hydroxyzine Hcl 10 Mg Tablet 10 Mg PO PRN Q2HR PRN Clozapine 100 Mg Tablet 1 Tab PO 1700 Remeron (Mirtazapine) 15 Mg Tablet 1 Tab PO 1700 Depakote Er (Divalproex Sodium) 500 Mg Tab.er.24h 750 Mg PO 1700 Nystatin 15 Gm Powder 1 Speedy TP BID Lidocaine 1 Each Adh..patch 1 Each TP DAILY Lotrimin Af (Clotrimazole) 12 Gm Cream..g. 1 Speedy TP BID PRN Sorbitol (Sorbitol Solution) 1 Ml Solution 30 Ml PO PRN DAILY PRN Trazodone Hcl 50 Mg Tablet 100 Mg PO QHS PRN Elmer-128 (Sodium Chloride) 3.5 Gm Oint...g. 1 Speedy OP HS Lipitor (Atorvastatin Calcium) 20 Mg Tablet 20 Mg PO DAILYWSUP Levothyroxine Sodium 75 Mcg Tablet 75 Mcg PO DAILYAC Estrace (Estradiol) 42.5 Gm Cream.appl 1 Speedy VG 2X WEEK Q FRI, URS Endocet 10-325 Mg Tablet (Oxycodone Hcl/Acetaminophen) 1 Each Tablet 1 Each PO PRN Q6HRS PRN Vitamin B-12 (Cyanocobalamin (Vitamin B-12)) 1,000 Mcg Tablet 1,000 Mcg PO DAILY Maalox Advanced Suspension (Mag Hydrox/Aluminum Hyd/Simeth) 355 Ml Oral.susp 15 Ml PO PRN AFTMEALHC PRN Analgesic Reinbeck (Methyl Salicylate/Menthol) 28 Gm Oint...g. 1 Speedy TP PRN QID PRN Risperidone 1 Mg Tablet 1.5 Mg PO 1700 Refresh Classic Eye Drops (Polyvinyl Alcohol/Povidone/Pf) 1 Each Droperette 1 Each OU TID PRN Trazodone Hcl 50 Mg Tablet 100 Mg PO DAILYWSUP Norvasc (Amlodipine Besylate) 5 Mg Tablet 10 Mg PO DAILY Miralax (Polyethylene Glycol 3350) 17 Gm Powd.pack 17 Gm PO DAILY Milk Of Magnesia (Magnesium Hydroxide) 2,400 Mg/10 Ml Oral.susp 2,400 Mg PO PRN DAILY PRN Tylenol (Acetaminophen) 325 Mg Tablet 650 Mg PO PRN Q6HRS PRN I have reviewed the current psychotropics carefully including drug interactions. Risk benefit ratio favors no change other than as noted in my dictated progress note. 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
--- NOTE | 2018-03-25 19:27 | DS ---
DATE OF DISCHARGE: 03/24/2018 DISCHARGE SUMMARY/PSYCHIATRIC PROGRESS NOTE This late entry date of service 03/24/2018 covers elements, not covered in my initial note. REASON FOR ADMISSION: Please refer to the admission history for details. HISTORY OF PRESENT ILLNESS: Briefly, the patient is a 68-year-old female referred to us from [facility] by her psychiatrist/primary care physician on account of a significant relapse of her schizoaffective disorder, bipolar type, mixed episode with psychotic features. The patient is extremely depressed, sleeping too much, hearing voices, telling her she cannot get up. She is paranoid, said she would rather than live without her who is quite medically sick himself. She had failed outpatient psychiatric interventions resulting in this referral. SIGNIFICANT FINDING AND CLINICAL COURSE: Following admission, the patient was seen daily individually by myself, followed medically per Dr. Jacome/Dr. Zelaya. I met with her many times during this hospitalization as well. The patient had an extremely difficult course during the hospitalization. She has a long history of schizoaffective disorder, bipolar type and has been on multiple psychotropics in the past including inpatient hospitalizations and other treatments. She appeared to have failed all of this, was totally resistive to taking any medications, appeared extremely confused, psychotic, fearful and it was very, very challenging during her entire stay. It was decided to initiate treatment on Clozaril, but since this had to be given orally, we were against to all since she was refusing all oral medications. She was started on Risperdal Consta along with oral Risperdal to the extent she would take it. Once this became somewhat effective to reduce the psychosis even marginally, the Clozaril was initiated and gradually increased to 125 mg a day and at last changed to 150 mg p.o. at 5:00 p.m. It was only at this stage that some of her paranoia appeared to resolve slightly and there was a dramatic difference in her compliance, her ability to interact with staff members and fairly robust improvement in her treatment. Since the Clozaril had to be increased maximum by 25 mg a week after CBC, ANC were checked weekly, the entire process took an extended period of time. Finally, the Risperdal Consta was discontinued, oral Risperdal reduced down to 1 mg a day and as part of her discharge plan starting in 30 days from discharge, the oral Risperdal could be dropped down to 0.75 mg a day for a month, 0.5 mg a day for a month, 0.25 mg a day for a month and then discontinued as the Clozaril is increased. Depakote was adjusted as well to reach therapeutic level. At discharge, she was on a combination of Risperdal 1 mg a day, trazodone 100 mg at 1700, may repeat x 1, Remeron 15 mg at bedtime, hydroxyzine ____, Depakote ER 750 mg a day with a level of 68 therapeutic, Clozaril 150 mg a day, trazodone 100 mg at bedtime p.r.n. REVIEW OF SYSTEMS: Prior to discharge, 03/24/2018, no CV, , pulmonary, eye, ENT system symptoms on review. Reliability varies. MENTAL STATUS EXAM: Reasonably oriented. Speech coherent, still somewhat pressured, but much improved. She was much less fearful. Psychosis was significantly better. Abstraction fair, computation impaired, language function intact. Attention span improved. Mood and affect improved. No suicidal or homicidal ideation at discharge. CONDITION AT DISCHARGE: Improved. FINAL DIAGNOSES: Schizoaffective disorder, bipolar type, mixed with psychotic features, in partial remission; anxiety disorder, unspecified; cognitive disorder, unspecified. Rest unchanged from admission. DISCHARGE MEDICATIONS: Please refer to the MRAD. DISCHARGE INSTRUCTIONS: Outpatient psychiatric and medical followup at the [facility]. Time for discharge day management greater than 30 minutes. KIERSTEN WATT MD DR: SANCHEZ/fredrick JOB#: [id number] / [id number]
== END 2018-03-24 11:46 | DRG 885 ==
LOC: ER 19:01 → GEROPSY 21:15
PROVIDERS: ADMIT Psychiatry & Neurology Psychiatry; ATTEND Psychiatry & Neurology Psychiatry
DX: F25.0 Schizoaffective disorder, bipolar type (principal); E03.9 Hypothyroidism, unspecified; E11.9 Type 2 diabetes mellitus without complications; E78.5 Hyperlipidemia, unspecified; F01.50 Vascular dementia, unspecified severity, without behavioral disturbance, psychotic disturbance, mood disturbance, and anxiety; F02.80 Dementia in other diseases classified elsewhere, unspecified severity, without behavioral disturbance, psychotic disturbance, mood disturbance, and anxiety; F09 Unspecified mental disorder due to known physiological condition; F41.0 Panic disorder [episodic paroxysmal anxiety]; F63.9 Impulse disorder, unspecified; G30.9 Alzheimer's disease, unspecified; G47.33 Obstructive sleep apnea (adult) (pediatric); I10 Essential (primary) hypertension; K59.09 Other constipation; M19.90 Unspecified osteoarthritis, unspecified site; Z79.899 Other long term (current) drug therapy; Z91.19 Patient's noncompliance with other medical treatment and regimen; Z91.81 History of falling; Z87.440 Personal history of urinary (tract) infections; Z88.8 Allergy status to other drugs, medicaments and biological substances
CPT/HCPCS: 36415; 70450; 80053; 80061; 80156; 80164; 80178; 81001; 82306; 82607; 83036; 83540; 83550; 83735; 85025; 86592; 87086; 93005; J2794; 97110; 97530; 99285-25

== ENCOUNTER 2018-06-06 01:03 | Inpatient (IN) | payer MEDICARE ==
[~2018-06-06] VITALS: Ht 154.9 cm; Wt 78.7 kg
[~2018-06-06 01:03] MED LIST changes: +CLOT12CR2 TP; +CLOZ100T7 PO; +CYAN10005 PO; +DIVA500T4 PO; +HYDR10TA2 PO; +LIDO700A39 TP; +LITH450T16 PO; +MIRT15TA PO; +NYST15PO9 TP; +SODI3.5O3 OP; +SORB1SOL PO; +TRAZ-120 PO; -TRAZ-85 PO
--- NOTE | 2018-06-06 01:54 | ED.ADGEN ---
Past History Past Medical History: Arthritis, Bipolar, Constipation, Dementia, Depression, Diabetes, Hypertension, Hypothyroid, UTI, Other Past Surgical History: Other Alcohol Use: None Drug Use: None Adult General Chief Complaint Chief Complaint physical exam [facility] HPI here for medical clearance for admission to psychiatry for bipolar, pt denies any symptoms Review of Systems Review of Systems Constitutional: Denies fever or chills [] Eyes: Denies change in visual acuity, redness, or eye pain [] HENT: Denies nasal congestion or sore throat [] Respiratory: Denies cough or shortness of breath [] Cardiovascular: No additional information not addressed in HPI [] GI: Denies abdominal pain, nausea, vomiting, bloody stools or diarrhea [] : Denies dysuria or hematuria [] Musculoskeletal: Denies back pain or joint pain [] Integument: Denies rash or skin lesions [] Neurologic: Denies headache, focal weakness or sensory changes [] Endocrine: Denies polyuria or polydipsia [] All other systems were reviewed and found to be within normal limits, except as documented in this note. Allergies Allergies Allergies Coded Allergies Type Severity Reaction Last Updated Verified Benzodiazepines Allergy Intermediate Unknown 12/29/17 Yes clonazepam Allergy Intermediate Unknown 12/29/17 Yes lorazepam Allergy Intermediate Unknown 12/29/17 Yes Physical Exam Physical Exam Constitutional: Well developed, well nourished, no acute distress, non-toxic appearance. [] HENT: Normocephalic, atraumatic, bilateral external ears normal, oropharynx moist, no oral exudates, nose normal. [] Eyes: PERRLA, EOMI, conjunctiva normal, no discharge. [] Neck: Normal range of motion, no tenderness, supple, no stridor. [] Cardiovascular:Heart rate regular rhythm, no murmur [] Lungs & Thorax: Bilateral breath sounds clear to auscultation [] Abdomen: Bowel sounds normal, soft, no tenderness, no masses, no pulsatile masses. [] Skin: Warm, dry, no erythema, no rash. [] Back: No tenderness, no CVA tenderness. [] Extremities: No tenderness, no cyanosis, no clubbing, ROM intact, no edema. [] Neurologic: Alert and oriented X 3, normal motor function, normal sensory function, no focal deficits noted. [] Current Patient Data Vital Signs Vital Signs Date Time Temp Pulse Resp B/P (MAP) Pulse Ox O2 Delivery O2 Flow Rate FiO2 06/06/18 01:27 97.7 91 18 97 Room Air EKG EKG [] Radiology/Procedures Radiology/Procedures [] Course & Med Decision Making Course & Med Decision Making Pertinent Labs and Imaging studies reviewed. (See chart for details) [] Final Impression Final Impression [] Problems: (1) General medical exam (2) Bipolar 1 disorder, manic, moderate Dragon Disclaimer Dragon Disclaimer This electronic medical record was generated, in whole or in part, using a voice recognition dictation system. MARTA ZAVALA MD Jun 06, 2018 01:54
[2018-06-06 02:08] LABS: BACTERIA,URINE FEW /HPF (0-FEW); BILIRUBIN,URINE NEG (NEG); CLARITY,URINE HAZY; COLOR,URINE STRAW; GLUCOSE,URINE NEG (NEG); NITRITE,URINE NEG (NEG); RBC,URINE OCC /HPF (0-2); SQUAMOUS EPITHELIAL CELL,UR FEW /LPF; UROBILINOGEN,URINE 1 mg/dL (0.2 mg/dL)
[2018-06-06 02:10] LABS: CALCIUM 9.7 mg/dL (8.5-10.1); CREATININE 0.8 mg/dL (0.6-1.0); GFR 71.1
[2018-06-06 02:20] LABS: BASO % 0 % (0-3); EOS # 0.3 x10^3/uL (0.0-0.7); EOS % 3 % (0-3); HEMATOCRIT 35.9 % (36.0-47.0); HEMOGLOBIN 11.9 g/dL (12.0-15.5); LYMPH # 1.8 x10^3/uL (1.0-4.8); LYMPH % 22 % (24-48); MEAN CORPUSCULAR HEMOGLOBIN 29 pg (25-35); MEAN CORPUSCULAR HGB CONC 33 g/dL (31-37); MEAN CORPUSCULAR VOLUME 87 fL (79-100); MONO # 1.1 x10^3/uL (0.0-1.1); MONO % 13 % (0-9); NEUT # 5.1 x10^3uL (1.8-7.7); NEUT % 61 % (31-73); PLATELET COUNT 193 x10^3/uL (140-400); RED BLOOD COUNT 4.12 x10^6/uL (3.50-5.40); RED CELL DISTRIBUTION WIDTH 15.8 % (11.5-14.5); WHITE BLOOD COUNT 8.3 x10^3/uL (4.0-11.0)
--- NOTE | 2018-06-06 03:01 | NUR ---
Admission Note with Justification for Admission to [facility] Patient admitted to [facility] for protective oversight for emergency stabilization of acute psychiatric crisis. Pt admitted from: SNF Mode of arrival: EMS Accompanied By: [facility] Staff Precipitating behaviors that initiated intake and admission: Yelling in peoples faces, brushing hair and doing nails of pts who dont want them done Description of failure of out patient attempts at stabilization in previous setting list behavior and medication trials: Sent to [facility] Behaviors and assessment findings upon admission: Manic behavior, restless, wandering, argumentative, demanding, impulsive, hungry Plan: Admit for protective oversight for adjustment and stabilization of medications, behaviors and mood. Intense treatment regimen including groups, medication adjustments, therapy, consistent regimen for ADL's, self care, and sleep hygiene. Daily monitoring by Inpatient staff, Psychiatry, and Medical Physician.
[2018-06-06 03:14] VITALS: BP 153/99
[2018-06-06] MEDS ORDERED: MAGNESIUM HYDROXIDE 2,400 MG/30 ML ORAL.SUSP. PO PRN ×2 (04:15→04:30)
[2018-06-06] MEDS ORDERED: MAG HYDROX/AL HYDROX/SIMETH 30 ML ORAL.SUSP PO PRN (04:15)
[2018-06-06] MEDS ORDERED: POLYVINYL ALCOHOL/POVIDONE/PF OPHTH SOLUTION DROPERETTE. OU PRN (04:30)
[2018-06-06 04:31] LABS: VAL ACID 67 mcg/mL (50-100)
[2018-06-06 05:31] VITALS: BP 128/75
[2018-06-06] MEDS: LEVOTHYROXINE 75 MCG TABLET PO SCH (05:52)
[2018-06-06] MEDS: METHYL SALICYLATE/MENTHOL TOPICAL OINTMENT 29GM TUBE. TP PRN (06:51)
[2018-06-06] MEDS: ACETAMINOPHEN 325 MG TABLET PO PRN ×2 (06:51→12:26)
[2018-06-06] MEDS: amLODIPine BESYLATE 5 MG TABLET PO SCH (08:45)
[2018-06-06] MEDS: FUROSEMIDE 20 MG TABLET PO SCH (08:45)
[2018-06-06] MEDS: cloZAPine 100 MG TABLET PO SCH ×2 (08:45→16:18)
[2018-06-06] MEDS: cloZAPine 25 MG TABLET PO SCH ×2 (08:45→16:18)
[2018-06-06] MEDS: CYANOCOBALAMIN (VITAMIN B-12) 1,000 MCG TABLET. PO SCH (08:45)
[2018-06-06] MEDS: POLYETHYLENE GLYCOL 3350 17 GM PACKET. PO SCH (08:45)
[2018-06-06] MEDS: prednisoLONE ACETATE 1% OPHTH SUSPENSION 5ML BOTTLE. OD SCH (10:37)
--- NOTE | 2018-06-06 11:10 | NUR ---
Pt appears manic, cooperative, compliant, friendly, restless, anxious, frequently asking for things. Cooperative with medication and assessment.
[2018-06-06 14:12] LABS: THYROXINE 6.2 ug/dL (4.5-12.0)
[2018-06-06 15:36] VITALS: BP 104/69
[2018-06-06] MEDS: MIRTAZAPINE 7.5 MG TABLET. PO SCH (19:59)
[2018-06-06] MEDS: traZODone 100 MG TABLET. PO PRN (19:59)
[2018-06-06] MEDS: ATORVASTATIN CALCIUM 20 MG TABLET PO SCH (19:59)
[2018-06-06] MEDS: DIVALPROEX ER 500 MG TAB.ER.24H PO SCH (19:59)
--- NOTE | 2018-06-06 22:57 | NUR ---
Pt sitting in hallway at shift change. Pt appears manic, hyperverbal, demanding, and restless. Pt cooperative and compliant with assessment and medications administered whole. PRN Trazodone administered at HS for sleep.
--- NOTE | 2018-06-07 00:02 | PDOC ---
Exam Note: Julian Note: Please also refer to the separate dictated note~for this date of service dictated separately.~Patient seen individually. Discussed the patient with Nursing staff reviewed the chart.~Reviewed interim history and current functioning. Reviewed vital signs,~Labs/ Radiology~and current medications noted below. Continue current treatment with the changes noted in the dictated addendum note Assessment: Vital Signs: Vital Signs Date Time Temp Pulse Resp B/P (MAP) Pulse Ox O2 Delivery O2 Flow Rate FiO2 06/06/18 15:36 97.3 89 20 104/69 (81) 98 06/06/18 01:27 Room Air I&O Intake and Output 06/07/18 07:01 Intake Total 1320 ml Balance 1320 ml Intake Oral 1320 ml # Voids 1 Labs: Laboratory Tests Test 06/06/18 01:28 06/06/18 01:50 Triglycerides Level 83 mg/dL (0-150) Cholesterol Level 158 mg/dL (0-200) LDL Cholesterol, Calculated 71 mg/dL (0-100) VLDL Cholesterol, Calculated 16 mg/dL (0-40) Non-HDL Cholesterol Calculated 87 mg/dL (0-129) HDL Cholesterol 71 mg/dL (40-60) H Cholesterol/HDL Ratio 2.0 Thyroxine (T4) 6.2 ug/dL (4.5-12.0) Total Triiodothyronine (TT3) 111 ng/dL (71-180) Valproic Acid Level 67 mcg/mL (50-100) Valproic Acid Last Dose Date 06/05/18 Valproic Acid Last Dose Time 0800 White Blood Count 8.3 x10^3/uL (4.0-11.0) Red Blood Count 4.12 x10^6/uL (3.50-5.40) Hemoglobin 11.9 g/dL (12.0-15.5) L Hematocrit 35.9 % (36.0-47.0) L Mean Corpuscular Volume 87 fL (79-100) Mean Corpuscular Hemoglobin 29 pg (25-35) Mean Corpuscular Hemoglobin Concent 33 g/dL (31-37) Red Cell Distribution Width 15.8 % (11.5-14.5) H Platelet Count 193 x10^3/uL (140-400) Neutrophils (%) (Auto) 61 % (31-73) Lymphocytes (%) (Auto) 22 % (24-48) L Monocytes (%) (Auto) 13 % (0-9) H Eosinophils (%) (Auto) 3 % (0-3) Basophils (%) (Auto) 0 % (0-3) Neutrophils # (Auto) 5.1 x10^3uL (1.8-7.7) Lymphocytes # (Auto) 1.8 x10^3/uL (1.0-4.8) Monocytes # (Auto) 1.1 x10^3/uL (0.0-1.1) Eosinophils # (Auto) 0.3 x10^3/uL (0.0-0.7) Basophils # (Auto) 0.0 x10^3/uL (0.0-0.2) Urine Collection Type Unknown Urine Color Straw Urine Clarity Hazy Urine pH 7.5 Urine Specific Paterson 1.015 Urine Protein Neg (NEG-TRACE) Urine Glucose (UA) Neg mg/dL (NEG) Urine Ketones (Stick) Neg mg/dL (NEG) Urine Blood Neg (NEG) Urine Nitrite Neg (NEG) Urine Bilirubin Neg (NEG) Urine Urobilinogen Dipstick 1 mg/dL (0.2 mg/dL) Urine Leukocyte Esterase Small (NEG) Urine RBC Occ /HPF (0-2) Urine WBC 1-4 /HPF (0-4) Urine Squamous Epithelial Cells Few /LPF Urine Bacteria Few /HPF (0-FEW) Sodium Level 141 mmol/L (136-145) Potassium Level 4.0 mmol/L (3.5-5.1) Chloride Level 105 mmol/L (98-107) Carbon Dioxide Level 28 mmol/L (21-32) Anion Gap 8 (6-14) Blood Urea Nitrogen 13 mg/dL (7-20) Creatinine 0.8 mg/dL (0.6-1.0) Estimated GFR (Cockcroft-Gault) 71.1 Glucose Level 102 mg/dL (70-99) H Calcium Level 9.7 mg/dL (8.5-10.1) Current Medications: Meds: Current Medications Acetaminophen (Tylenol) 650 mg PRN Q6HRS PRN PO PAIN / TEMP Last administered on 06/06/18at 12:26; Start 06/06/18 at 04:15 Multi-Ingredient Ointment (Analgesic Greenleaf) 1 speedy PRN QID PRN TP MUSCLE PAIN Last administered on 06/06/18at 06:51; Start 06/06/18 at 04:15 Al Hydroxide/Mg Hydroxide (Mylanta Plus Xs) 15 ml PRN AFTMEALHC PRN PO DYSPEPSIA; Start 06/06/18 at 04:15 Magnesium Hydroxide (Milk Of Magnesia) 2,400 mg PRN QHS PRN PO CONSTIPATION; Start 06/06/18 at 04:15 Amlodipine Besylate (Norvasc) 5 mg DAILY PO Last administered on 06/06/18at 08: 45; Start 06/06/18 at 09:00 Atorvastatin Calcium (Lipitor) 20 mg QHS PO Last administered on 06/06/18 19: 59; Start 06/06/18 at 21:00 Clozapine (Clozaril) 100 mg [id number] PO Last administered on 06/06/18 16:18; Start 06/06/18 at 09:00 Clozapine (Clozaril) 50 mg [id number] PO Last administered on 06/06/18 16:18; Start 06/06/18 at 09:00 Cyanocobalamin (Vitamin B-12) 1,000 mcg DAILY PO Last administered on at 08:45; Start 06/06/18 at 09:00 Divalproex Sodium (Depakote Er) 1,000 mg QHS PO Last administered on 06/06/18 19:59; Start 06/06/18 at 21:00 Vitamin D (Vitamin D3) 50,000 unit WEEKLY PO ; Start 06/07/18 at 09:00 Estradiol (Estrace) 1 speedy QMTH VG ; Start 06/08/18 at 16:00 Furosemide (Lasix) 20 mg DAILY PO Last administered on 06/06/18 08:45; Start 06/06/18 at 09:00 Levothyroxine Sodium (Synthroid) 75 mcg DAILY06 PO Last administered on at 05:52; Start 06/06/18 at 06:00 Melatonin 6 mg PRN QHS PRN PO INSOMNIA; Start 06/06/18 at 04:30 Magnesium Hydroxide (Milk Of Magnesia) 2,400 mg PRN DAILY PRN PO CONSTIPATION; Start 06/06/18 at 04:30; Status UNV Polyethylene Glycol (miraLAX) 17 gm DAILY PO Last administered on 06/06/18at 08: 45; Start 06/06/18 at 09:00 Prednisolone Acetate (Pred Forte) 1 drop DAILY OD Last administered on at 10:37; Start 06/06/18 at 09:00 Artificial Tears (Refresh Classic) 1 drop TID PRN PRN OU DRY EYE; Start at 04:30 Mirtazapine (Remeron) 7.5 mg QHS PO Last administered on 06/06/18at 19:59; Start 06/06/18 at 21:00 Trazodone HCl (Desyrel) 100 mg PRN QHS PRN PO INSOMNIA, MAY REPEAT X1 Last administered on 06/06/18at 19:59; Start 06/06/18 at 19:00 Active Scripts Active Reported Hydroxyzine Hcl 10 Mg Tablet 10 Mg PO PRN Q2HR PRN Clozapine 100 Mg Tablet 1 Tab PO 1700 Remeron (Mirtazapine) 15 Mg Tablet 1 Tab PO 1700 Depakote Er (Divalproex Sodium) 500 Mg Tab.er.24h 750 Mg PO 1700 Nystatin 15 Gm Powder 1 Speedy TP BID Lidocaine 1 Each Adh..patch 1 Each TP DAILY Lotrimin Af (Clotrimazole) 12 Gm Cream..g. 1 Speedy TP BID PRN Sorbitol (Sorbitol Solution) 1 Ml Solution 30 Ml PO PRN DAILY PRN Trazodone Hcl 50 Mg Tablet 100 Mg PO QHS PRN Elmer-128 (Sodium Chloride) 3.5 Gm Oint...g. 1 Speedy OP HS Lipitor (Atorvastatin Calcium) 20 Mg Tablet 20 Mg PO DAILYWSUP Levothyroxine Sodium 75 Mcg Tablet 75 Mcg PO DAILYAC Estrace (Estradiol) 42.5 Gm Cream.appl 1 Speedy VG 2X WEEK Q MON, THURS Endocet 10-325 Mg Tablet (Oxycodone Hcl/Acetaminophen) 1 Each Tablet 1 Each PO PRN Q6HRS PRN Vitamin B-12 (Cyanocobalamin (Vitamin B-12)) 1,000 Mcg Tablet 1,000 Mcg PO DAILY Maalox Advanced Suspension (Mag Hydrox/Aluminum Hyd/Simeth) 355 Ml Oral.susp 15 Ml PO PRN AFTMEALHC PRN Analgesic Greenleaf (Methyl Salicylate/Menthol) 28 Gm Oint...g. 1 Speedy TP PRN QID PRN Risperidone 1 Mg Tablet 1.5 Mg PO 1700 Refresh Classic Eye Drops (Polyvinyl Alcohol/Povidone/Pf) 1 Each Droperette 1 Each OU TID PRN Trazodone Hcl 50 Mg Tablet 100 Mg PO DAILYWSUP Norvasc (Amlodipine Besylate) 5 Mg Tablet 10 Mg PO DAILY Miralax (Polyethylene Glycol 3350) 17 Gm Powd.pack 17 Gm PO DAILY Milk Of Magnesia (Magnesium Hydroxide) 2,400 Mg/10 Ml Oral.susp 2,400 Mg PO PRN DAILY PRN Tylenol (Acetaminophen) 325 Mg Tablet 650 Mg PO PRN Q6HRS PRN I have reviewed the current psychotropics carefully including drug interactions. Risk benefit ratio favors no change other than as noted in my dictated progress note. 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
[2018-06-07] MEDS: LEVOTHYROXINE 75 MCG TABLET PO SCH (05:27)
[2018-06-07 05:57] VITALS: BP 121/86
[2018-06-07] MEDS: cloZAPine 25 MG TABLET PO SCH ×2 (07:21→16:54)
[2018-06-07] MEDS: prednisoLONE ACETATE 1% OPHTH SUSPENSION 5ML BOTTLE. OD SCH (07:21)
[2018-06-07] MEDS: FUROSEMIDE 20 MG TABLET PO SCH (07:21)
[2018-06-07] MEDS: POLYETHYLENE GLYCOL 3350 17 GM PACKET. PO SCH (07:25)
[2018-06-07] MEDS: CYANOCOBALAMIN (VITAMIN B-12) 1,000 MCG TABLET. PO SCH (07:26)
[2018-06-07] MEDS: cloZAPine 100 MG TABLET PO SCH ×2 (07:26→16:53)
[2018-06-07] MEDS: amLODIPine BESYLATE 5 MG TABLET PO SCH (07:26)
--- NOTE | 2018-06-07 07:28 | NUR ---
Pt approached the nurses station window and began to hit it repetitively. When staff asked what she needed she stated "the phone." Staff reminded her that it is 0720 in the morning and the phone use does not start until at least 0800. Pt began yelling that she needed to call her daughter because her daughter gets up early because she has a baby and another child. Staff attempted to redirect pt reminding her of unit policy. However, pt continued to yell and hit the window of the nurses station. Staff asked pt to lower her voice as other pts were sleeping, pt stated no she would not and she continued to demand the phone. Nursing staff again reminded her of unit policy and of the time. Pt continued to yell and hit the window. RISK DEVELOPER's escorted pt to [facility] where pt screamed and placed her hands on her head then sat on the chair. A few minutes later another nurse from another unit came into the nurses station and this pt complimented her hair. Pt is sitting calmly but is labile. She will compliment staff then yell out and demand things at other times. When pt is more calm will redirect to breakfast.
[2018-06-07] MEDS: CHOLECALCIFEROL (VITAMIN D3) 50,000 UNIT CAPSULE PO SCH (07:43)
--- NOTE | 2018-06-07 09:31 | NUR ---
pt asked to call . During phone call pt had flight of ideas and was tangential. Pt often yelled at her . Nurse ended the phone call stating that it was no longer therapeutic for the pt or at this time as pt was agitated and yelling agreed.
--- NOTE | 2018-06-07 10:00 | NUR ---
ACTIVITY THERAPY ASSESSMENT Completed based on observation and interview. CHARGING CRANE OPERATOR entered day room where Pt. was talking to staff. Upon greeting, Pt. asked CHARGING CRANE OPERATOR how her baby was and recalled last time she was here, CHARGING CRANE OPERATOR was . Pt. was able to recall many facts and details with accuracy. Pt. was talkative and jumped from topic to topic. She asked about the volutneer who came to play music, she said she can play music and would like to play some. CHARGING CRANE OPERATOR asked Pt. to go for a walk and discuss why she was back. Pt. explained with her Bipolar, she was headed towards a high and wanted to catch it before she dropped into depression. Pt. 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 When talking about groups and goals here, she agreed to come to all Activity Therapy groups. She expressed her interest in groups about politics, coloring, activity books, multiplication flash cards, Mountain Alarm, journaling, connect the dots, crocheting, playing music, acting, and Bingo. Initial goal aimed to increase attention span and engagement: Pt. will participate in all Activity Therapy groups offered. Addendum: 06/18/18 at 1010 by SEBASTIAN GEE ACT Goal changed 06/18/2018- Pt. will participate in at least three (Activity Therapy) groups or individual activities per week.
--- NOTE | 2018-06-07 14:00 | NUR ---
Pt refused to leave the dining room after lunch. Multiple staff members asked pt to leave dining room however pt continued to yell and refuse. 2 staff members had to escort pt to the [facility] where pt was yelling and demanding to use the phone, be let out, use the bathroom, and demanding a boost even though she just ate lunch. She has flight of ideas and is tangential especially when the physician is on the unit demanding he sit with her and know when she will be released and why she "always ends up here." reminded her he is only here for medical problems not psychiatric problems. Pt continued to yell and cuss at nurse and staff calling them "bitches." She then removed all of the tissues from her kleenex box throwing them on the floor. Dr. Jeromy racson, new order to give zyprexa zydis 5mg Q 2 hours PRN psychosis/agitation not to exceed 20mg in 24 hours. Nurse gave pt PRN and informed pt that if she can control herself and clean up her tissues then she can return to the dayroom with her peers. Pt continued to act out at times kicking the door, calling staff "bitches." Stating "why is your hair up like that you look like a cockatoo." "youre nothing but a bitch." After hearing the toilet flush Pt then came out of the quiet room with wet hair. Nurse asked pt if she got her hair wet in the sink or toilet. Pt was adamant she used the sink. Pt also stated she was masturbating earlier when she was laying in the quiet room and that "it was ecstasy." and "you've probably never had any." "you've probably never had anything so good bc you're just a bitch." Nurse stated to pt her language is not appropriate. Pt demanded to use the phone. Nurse reminded pt she has used all of her calls for the day. Nurse encouraged the pt to sit quietly and if she could for 15 min she could join her peers in the dayroom. Pt picked up her tissues, sat quietly and was able to rejoin her peers.
[2018-06-07 15:42] VITALS: BP 134/80
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
--- NOTE | 2018-06-07 18:06 | HP ---
ADMIT DATE: 06/06/2018 PSYCHIATRIC ADMISSION HISTORY/EVALUATION This note covers elements not covered in my initial note of 06/06/2018. IDENTIFYING DATA: The patient is a 68-year-old female, who is referred back to us from [facility] on account of worsening symptoms of amita, psychosis. The patient has been manic, yelling impulsive, disruptive, psychotic. She has failed outpatient psychiatric interventions with Dr. Pizano and Dr. Field referred to us for inpatient psychiatric stabilization. I have previously discussed the patient with occasions and with nursing staff again since the patient's admission due to her manic, grandiose, disruptive, psychotic behaviors, which are extremely intense and she is loud, disruptive, repetitive. CHIEF COMPLAINT: "I have got to go there and I did that. I don't do things like that." The patient is quite hyperverbal with rapid speech, followed me around the unit even after I met with her at some length in her room and before that she had been quite disruptive on the unit. HISTORY OF PRESENT ILLNESS: The patient has a history of bipolar disorder versus schizoaffective disorder, bipolar type, mixed with psychotic features. She has been stabilized with us in the past and recently living at [facility]. As noted above she has been manic, grandiose, yelling, screaming, paranoid, intrusive, hyperverbal. She has had sleep and appetite changes, psychosis. No active suicidal or homicidal ideation. PAST PSYCHIATRIC HISTORY: As above. At the time of her last discharge from us she was on Remeron 15 mg at bedtime, Risperdal 1.5 mg at bedtime together with Clozaril 100 mg a day and the Risperdal was being tapered. She is also on trazodone 100 mg at 1700 plus p.r.n. at bedtime for insomnia along with Depakote at a therapeutic level. At the time of this readmission her valproic acid level is 67. She is on Depakote ER 1000 mg p.o. at bedtime, olanzapine 150 mg b.i.d. and is no longer on the Risperdal. PAST MEDICAL HISTORY: Positive for hip pain, muscle weakness, cognitive communication deficits, unsteadiness of gait, mood, hyperlipidemia, vitamin D deficiency, hypertension, chronic constipation, insomnia, dry eye syndrome, dysphagia, symbolic dysfunction disorder, candidiasis, tinea pedis, hypothyroidism, frontotemporal dementia noted in her history. Movement disorder, history of falls, functional dyspepsia. ACCU-CHEKS: None. DIET: Regular medications. MEDICATIONS: Whole. CURRENT PSYCHOTROPICS: As noted above. CODE STATUS: Full code. ALLERGIES: BENZODIAZEPINES, KLONOPIN, ATIVAN. FAMILY HISTORY: Noncontributory. SOCIAL HISTORY: No history of alcohol, drug abuse, physical, sexual or elder abuse history is noted. She is not known to be a perpetrator. REACTION TO HOSPITALIZATION: The patient accepting of this, but minimizes reason for admission. ASSETS: Supportive family, stable living [facility] the [facility]. MENTAL STATUS EXAM: The patient was initially seen in her room and then she followed me around the unit. I met with her couple of times after my initial visit. She remains hyperverbal, loud, disruptive, anxious. Speech coherent, rapid. Abstraction fair, computation impaired, language function intact, attention span short. Mood and affect remains quite grandiose, labile, paranoid. LABORATORY DATA: Reviewed. FINAL DIAGNOSES: Schizoaffective disorder, bipolar type, mixed with psychotic features; anxiety disorder, unspecified; impulse control disorder, unspecified. UA is negative. Rest as above. PLAN: Admit to geropsychiatry unit at [facility]. I will see the patient daily individually from a psychiatric standpoint, medical followup with Dr. Jacome. We will go ahead and restart Remeron 7.5 mg p.o. at bedtime because she just slept very poorly previous evening 0 hours the night even though she was admitted late at 3:00 a.m. morning of 06/06/2018. She is also on trazodone 100 mg at bedtime p.r.n., may repeat x 1. Continue Depakote, olanzapine. Follow CBC, absolute neutrophil counts weekly. Adjust further as clinically indicated. MAN Rox WATT MD DR: SANCHEZ/fredrick JOB#: [id number] / [id number]
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
[2018-06-07] MEDS: HALOPERIDOL LACT 5 MG/ML VIAL. IM SCH (18:56)
--- NOTE | 2018-06-07 20:30 | NUR ---
Nurse has been monitoring patient by camera at nurses station throughout the seclusion period. split and drum room supervisor monitored while nurse passed medications. Patient has been combative, kicking, screaming, cursing, masturbating, urinating on the mats throughout the entire seclusion period. Staff was unable to obtain vital signs r/t the listed behaviors. Patient lunged at the door if staff attempted to open it. Will continue to monitor patient via camera and when she calms down, will let her into west hallway.
[2018-06-07] MEDS: DIVALPROEX ER 500 MG TAB.ER.24H PO SCH (20:40)
[2018-06-07] MEDS: ATORVASTATIN CALCIUM 20 MG TABLET PO SCH (20:40)
[2018-06-07] MEDS: MIRTAZAPINE 7.5 MG TABLET. PO SCH (20:40)
--- NOTE | 2018-06-07 20:45 | NUR ---
Nurse assessed patient in seclusion. Patient has calmed down and agrees to be calmer if she can come out. Patient given boost, oreos, milk and ice cream for a snack. Compliant with medications taken whole. After 10 minutes in [facility] talking to nurse, nurse allowed patient into the day room to watch the end of the [employer] game. Patient watching game with peers and acting appropriately at this time. Will continue to monitor.
[2018-06-07] MEDS ORDERED: HALOPERIDOL 5 MG TABLET PO SCH (21:00)
--- NOTE | 2018-06-07 21:13 | NUR ---
Patient has been returned to the [facility] for making obscene faces at peers, throwing ice cream and milk onto the floor. Staff escorted her to the [facility]. Patient is currently yelling "angelinaking hipolito nobles, hipolito mcmillan" at this nurse. Demanding to make phone calls and spitting on the floor. She has stated that if she is allowed to make phone calls and change her clothes she will behave. Patient grandiose, states she sold her house for 3.5 million dollars.
--- NOTE | 2018-06-07 21:56 | NUR ---
Allowed patient to call family, she was much calmer after speaking to her daughter and . She stated she was very worried about her because he has cancer and is going through chemo. Patient then stated she is hungry, CUTTING DEPARTMENT SUPERVISOR got her sandwich and potato salad.
--- NOTE | 2018-06-07 22:36 | PDOC ---
Exam Note: Julian Note: Please also refer to the separate dictated note~for this date of service dictated separately. Discussed the patient with Nursing staff reviewed the chart.~Reviewed interim history and current functioning. Reviewed vital signs,~ Labs/ Radiology~and current medications noted below. Continue current treatment with the changes noted in the dictated addendum note Assessment: Vital Signs: Vital Signs Date Time Temp Pulse Resp B/P (MAP) Pulse Ox O2 Delivery O2 Flow Rate FiO2 06/07/18 15:42 97.4 104 20 134/80 (98) 98 06/06/18 01:27 Room Air I&O Intake and Output 06/07/18 07:01 Intake Total 1320 ml Balance 1320 ml Intake Oral 1320 ml # Voids 1 Current Medications: Meds: Current Medications Acetaminophen (Tylenol) 650 mg PRN Q6HRS PRN PO PAIN / TEMP Last administered on 06/06/18 12:26; Start 06/06/18 at 04:15 Multi-Ingredient Ointment (Analgesic [place]) 1 speedy PRN QID PRN TP MUSCLE PAIN Last administered on 06/06/18at 06:51; Start 06/06/18 at 04:15 Al Hydroxide/Mg Hydroxide (Mylanta Plus Xs) 15 ml PRN AFTMEALHC PRN PO DYSPEPSIA; Start 06/06/18 at 04:15 Magnesium Hydroxide (Milk Of Magnesia) 2,400 mg PRN QHS PRN PO CONSTIPATION; Start 06/06/18 at 04:15 Amlodipine Besylate (Norvasc) 5 mg DAILY PO Last administered on 06/07/18at 07: 26; Start 06/06/18 at 09:00 Atorvastatin Calcium (Lipitor) 20 mg QHS PO Last administered on 06/07/18at 20: 40; Start 06/06/18 at 21:00 Clozapine (Clozaril) 100 mg BID94 PO Last administered on 06/07/18 16:53; Start 06/06/18 at 09:00 Clozapine (Clozaril) 50 mg BID94 PO Last administered on 06/07/18at 16:54; Start 06/06/18 at 09:00 Cyanocobalamin (Vitamin B-12) 1,000 mcg DAILY PO Last administered on at 07:26; Start 06/06/18 at 09:00 Divalproex Sodium (Depakote Er) 1,000 mg QHS PO Last administered on 06/07/18at 20:40; Start 06/06/18 at 21:00 Vitamin D (Vitamin D3) 50,000 unit WEEKLY PO Last administered on 06/07/18at 07: 43; Start 06/07/18 at 09:00 Estradiol (Estrace) 1 speedy QMTH VG ; Start 06/08/18 at 16:00 Furosemide (Lasix) 20 mg DAILY PO Last administered on 06/07/18at 07:21; Start 06/06/18 at 09:00 Levothyroxine Sodium (Synthroid) 75 mcg DAILY06 PO Last administered on at 05:27; Start 06/06/18 at 06:00 Melatonin 6 mg PRN QHS PRN PO INSOMNIA; Start 06/06/18 at 04:30 Magnesium Hydroxide (Milk Of Magnesia) 2,400 mg PRN DAILY PRN PO CONSTIPATION; Start 06/06/18 at 04:30; Status UNV Polyethylene Glycol (miraLAX) 17 gm DAILY PO Last administered on 06/07/18at 07: 25; Start 06/06/18 at 09:00 Prednisolone Acetate (Pred Forte) 1 drop DAILY OD Last administered on 07:21; Start 06/06/18 at 09:00 Artificial Tears (Refresh Classic) 1 drop TID PRN PRN OU DRY EYE; Start at 04:30 Mirtazapine (Remeron) 7.5 mg QHS PO Last administered on 06/07/18at 20:40; Start 06/06/18 at 21:00 Trazodone HCl (Desyrel) 100 mg PRN QHS PRN PO INSOMNIA, MAY REPEAT X1 Last administered on 06/06/18at 19:59; Start 06/06/18 at 19:00 Olanzapine (ZyPREXA ZYDIS) 5 mg PRN Q2HR PRN PO PSYCHOSIS Last administered on 06/07/18at 13:59; Start 06/07/18 at 14:00 Haloperidol (Haldol) 5 mg HS PO ; Start 06/07/18 at 21:00; Stop 06/07/18 at 21: 00; Status DC Haloperidol Lactate (Haldol) 5 mg DAILY IM Last administered on 06/07/18at 18:56 ; Start 06/07/18 at 19:15 Active Scripts Active Reported Hydroxyzine Hcl 10 Mg Tablet 10 Mg PO PRN Q2HR PRN Clozapine 100 Mg Tablet 1 Tab PO 1700 Remeron (Mirtazapine) 15 Mg Tablet 1 Tab PO 1700 Depakote Er (Divalproex Sodium) 500 Mg Tab.er.24h 750 Mg PO 1700 Nystatin 15 Gm Powder 1 Speedy TP BID Lidocaine 1 Each Adh..patch 1 Each TP DAILY Lotrimin Af (Clotrimazole) 12 Gm Cream..g. 1 Speedy TP BID PRN Sorbitol (Sorbitol Solution) 1 Ml Solution 30 Ml PO PRN DAILY PRN Trazodone Hcl 50 Mg Tablet 100 Mg PO QHS PRN Elmer-128 (Sodium Chloride) 3.5 Gm Oint...g. 1 Speedy OP HS Lipitor (Atorvastatin Calcium) 20 Mg Tablet 20 Mg PO DAILYWSUP Levothyroxine Sodium 75 Mcg Tablet 75 Mcg PO DAILYAC Estrace (Estradiol) 42.5 Gm Cream.appl 1 Speedy VG 2X WEEK Q FRI, Endocet 10-325 Mg Tablet (Oxycodone Hcl/Acetaminophen) 1 Each Tablet 1 Each PO PRN Q6HRS PRN Vitamin B-12 (Cyanocobalamin (Vitamin B-12)) 1,000 Mcg Tablet 1,000 Mcg PO DAILY Maalox Advanced Suspension (Mag Hydrox/Aluminum Hyd/Simeth) 355 Ml Oral.susp 15 Ml PO PRN AFTMEALHC PRN Analgesic [place] (Methyl Salicylate/Menthol) 28 Gm Oint...g. 1 Speedy TP PRN QID PRN Risperidone 1 Mg Tablet 1.5 Mg PO 1700 Refresh Classic Eye Drops (Polyvinyl Alcohol/Povidone/Pf) 1 Each Droperette 1 Each OU TID PRN Trazodone Hcl 50 Mg Tablet 100 Mg PO DAILYWSUP Norvasc (Amlodipine Besylate) 5 Mg Tablet 10 Mg PO DAILY Miralax (Polyethylene Glycol 3350) 17 Gm Powd.pack 17 Gm PO DAILY Milk Of Magnesia (Magnesium Hydroxide) 2,400 Mg/10 Ml Oral.susp 2,400 Mg PO PRN DAILY PRN Tylenol (Acetaminophen) 325 Mg Tablet 650 Mg PO PRN Q6HRS PRN I have reviewed the current psychotropics carefully including drug interactions. Risk benefit ratio favors no change other than as noted in my dictated progress note. 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
[2018-06-07] MEDS: traZODone 100 MG TABLET. PO PRN (22:51)
[2018-06-07] MEDS: METHYL SALICYLATE/MENTHOL TOPICAL OINTMENT 29GM TUBE. TP PRN (22:53)
--- NOTE | 2018-06-07 22:54 | NUR ---
Patient up in day room, states she is not tired. Given PRN trazodone. Patient states hip hurts. Give PRN analgesic balm. Addendum: 06/07/18 at 2305 by NASREEN MONROE RN massaged analgesic balm into patients lower back, hip, shoulders, elbows.
--- NOTE | 2018-06-08 | NUR ---
Patient manic and hyperverbal. She has been talking the entire time she has been in day room. Nurse made patient two bowls of soup and sat with her while she ate them. Patient thoughts are tangental and flight of ideas is evident during her conversations. Nurse attempted to have patient look at magazines but she continues to talk even when staff does not engage her.
--- NOTE | 2018-06-08 01:26 | CONS ---
DATE OF CONSULTATION: 06/06/2018 REASON FOR CONSULTATION: Medical management. 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 When I saw her today, she was extremely aggressive, combative, yelling. PAST MEDICAL HISTORY: Significant for hypertension, hyperlipidemia, vitamin D deficiency, chronic constipation, obstructive sleep apnea, dysphagia and muscle weakness. PAST PSYCHIATRIC HISTORY: Significant for bipolar disorder, mood disorder, panic disorder, insomnia, and cognitive communication deficits. PAST SURGICAL HISTORY: Unremarkable. ALLERGIES: She is allergic benzodiazepine, clonazepam and lorazepam. FAMILY HISTORY: Unremarkable. SOCIAL HISTORY: She is a resident at [facility]. She does not smoke, drink alcohol or use any recreational drugs. REVIEW OF SYSTEMS: As in the history of present illness. MEDICATIONS: She is currently on following medications: She is on atorvastatin calcium 20 mg at bedtime, amlodipine 10 mg once a day, methyl salicylate and menthol for analgesic balm and applied topically 4 times a day, oxycodone/APAP 10/325 one tablet every 6 hours, Tylenol 650 mg every 6 hours, divalproex sodium 750 mg in the evening, mirtazapine 15 medication mg at bedtime, trazodone 100 mg daily, trazodone 100 mg at bedtime, clozapine 100 mg at 5:00 p.m., hydroxyzine 10 mg every 2 hours as needed, polyvinyl alcohol, Refresh classic eyedrops 1 drop to both eyes 3 times a day, sodium chloride ____ to both eyes at bedtime. She is on Maalox 15 mL after meals, milk of magnesia 30 mL p.o. daily p.r.n. for constipation, polyethylene glycol 17 grams p.o. daily, sorbitol 30 mL p.o. daily p.r.n., estradiol for Estrace 1 application per vagina 2 times a week every Friday and . She is on levothyroxine sodium 75 mcg daily before breakfast, clotrimazole or Lotrimin apply topically twice a day, nystatin powder apply topically twice a day. She is on Lidoderm patch, apply topically once a day and cyanocobalamin 1000 mcg once a day. PHYSICAL EXAMINATION: GENERAL: When I examined her, she was sitting comfortably in her chair, in no apparent distress, extremely manic; however, there is no pallor, jaundice, cyanosis, or thyromegaly. No jugular venous distension. No lower limb edema. VITAL SIGNS: Her heart rate was 74, blood pressure was 121/86, temperature was 98.8, respiratory rate was 18, and oxygen saturation 100%. The rest of clinical exam is stable and unremarkable. LABORATORY DATA: Showed a serum sodium of 141, potassium 4, chloride 105, bicarbonate 28, anion gap of 8, BUN 13, creatinine 0.8, estimated GFR was 71 mL per minute, glucose 102, calcium was 9.7. Serum triglycerides were 83, total cholesterol was 58, LDL cholesterol was 71, VLDL was 16, and HDL cholesterol was 71. The ratio was 2. Her total T4 was 6.2, total T3 was 111. Her white cell count was 8300, hemoglobin 12, hematocrit 36, MCV 87 and platelet count of 193,000. Urinalysis was essentially unremarkable and her toxic screen showed her valproic acid was 67 mcg/mL, which is well within therapeutic range. IMPRESSION AND PLAN: In summary, this is a 68-year-old female patient, a resident at [facility] coming with another manic episode. The patient is very aggressive, loud, yelling; however, medically all her vital signs seemed to be stable. All her lab works are within acceptable range. Her kidney function and lipid profile as well as total T4 and total T3 are all within normal range. Urinalysis was unremarkable and toxic screen showed that her valproic acid is well within the therapeutic range. I will obviously follow all the lab works that are still pending and make any necessary recommendation. Thank you, Dr. Pinzon for allowing me to participate in the care of this patient. TANIA DELGADO MD DR: TRINIDAD/fredrick JOB#: [id number] / [id number]
--- NOTE | 2018-06-08 02:03 | NUR ---
Patient still up, asking for shower. Became upset when she was trying to get her pajamas from her closet. Very angry that the closet is kept lock and that she isn't allowed to have all of the things that she brought in her closet. [employer]IC [employer] to set up shower for patient and monitor.
--- NOTE | 2018-06-08 02:10 | NUR ---
patient squirted soap all over STRATEGIC COMMUNICATIONS MANAGER and then sprayed nurse with water. These acts were intentional. She flippantly said "you'll dry". Patient complaining that she brought her shampoo and conditioner and our soap is "crap".
[2018-06-08] MEDS: ACETAMINOPHEN 325 MG TABLET PO PRN (02:35)
--- NOTE | 2018-06-08 05:49 | NUR ---
At 0320 patient finally went to bed. Held AM levothyroxine at this time so she could sleep. Will give with morning meds.
[2018-06-08] MEDS: LEVOTHYROXINE 75 MCG TABLET PO SCH (07:16)
[2018-06-08] MEDS: amLODIPine BESYLATE 5 MG TABLET PO SCH (08:04)
[2018-06-08] MEDS: cloZAPine 25 MG TABLET PO SCH ×2 (08:05→15:41)
[2018-06-08] MEDS: FUROSEMIDE 20 MG TABLET PO SCH (08:07)
[2018-06-08] MEDS: CYANOCOBALAMIN (VITAMIN B-12) 1,000 MCG TABLET. PO SCH (08:08)
[2018-06-08] MEDS: POLYETHYLENE GLYCOL 3350 17 GM PACKET. PO SCH (08:08)
[2018-06-08] MEDS: HALOPERIDOL LACT 5 MG/ML VIAL. IM SCH (08:09)
[2018-06-08] MEDS: prednisoLONE ACETATE 1% OPHTH SUSPENSION 5ML BOTTLE. OD SCH (08:13)
[2018-06-08] MEDS: cloZAPine 100 MG TABLET PO SCH ×2 (08:16→15:41)
--- NOTE | 2018-06-08 11:07 | NUR ---
Patient was in dining room where she was throwing her cup on the floor and yelling. Patient was escorted to [facility] for de-escalation, where she ate her breakfast and was compliant in taking her medications.
--- NOTE | 2018-06-08 14:44 | NUR ---
Pt was in dining room for lunch. CUSTOMER SERVICE SALES ASSOCIATE approached pt to ask if she was done with her food, and pt stated yes. CUSTOMER SERVICE SALES ASSOCIATE asked pt to hand her her tray, and pt stated "I am finished, get this out of my face." CUSTOMER SERVICE SALES ASSOCIATE asked pt to hand her the fork, and pt threw cup of tea across dining room and into hallway. Staff escorted pt to [facility] for deescalation.
[2018-06-08] MEDS ORDERED: ESTRADIOL 0.01% VAGINAL CREAM 42.5GM TUBE. VG SCH (16:00)
[2018-06-08 16:43] VITALS: BP 112/76
[2018-06-08] MEDS: ATORVASTATIN CALCIUM 20 MG TABLET PO SCH (21:16)
[2018-06-08] MEDS: DIVALPROEX ER 500 MG TAB.ER.24H PO SCH (21:16)
[2018-06-08] MEDS: MIRTAZAPINE 7.5 MG TABLET. PO SCH (21:16)
--- NOTE | 2018-06-08 22:24 | NUR ---
Patient was sleeping in chair in day room at shift change. She later asked for her medications and said she would be waiting in her room. When nurse got to room, patient wass asleep in bed so nurse woke patient up for medications. Patient compliant with oral medications. She stated she could do her own Estrace Vaginal cream and was given the syringe of cream by the nurse. Patient has been calm, drowsy, sleeping and appropriate thus far this shift.
--- NOTE | 2018-06-08 22:34 | PDOC ---
Exam Note: Julian Note: Please also refer to the separate dictated note~for this date of service dictated separately.~Patient seen individually. Discussed the patient with Nursing staff reviewed the chart.~Reviewed interim history and current functioning. Reviewed vital signs,~Labs/ Radiology~and current medications noted below. Continue current treatment with the changes noted in the dictated addendum note Assessment: Vital Signs: Vital Signs Date Time Temp Pulse Resp B/P (MAP) Pulse Ox O2 Delivery O2 Flow Rate FiO2 06/08/18 16:43 97.3 98 20 112/76 (88) 97 06/06/18 01:27 Room Air I&O Intake and Output 06/08/18 07:01 Intake Total 1440 ml Balance 1440 ml Intake Oral 1440 ml # Voids 1 Labs: Laboratory Tests Test 06/08/18 07:16 Glucose (Fingerstick) 87 mg/dL (70-99) Current Medications: Meds: Current Medications Acetaminophen (Tylenol) 650 mg PRN Q6HRS PRN PO PAIN / TEMP Last administered on 06/08/18at 02:35; Start 06/06/18 at 04:15 Multi-Ingredient Ointment (Analgesic [place]) 1 speedy PRN QID PRN TP MUSCLE PAIN Last administered on 06/07/18at 22:53; Start 06/06/18 at 04:15 Al Hydroxide/Mg Hydroxide (Mylanta Plus Xs) 15 ml PRN AFTMEALHC PRN PO DYSPEPSIA; Start 06/06/18 at 04:15 Magnesium Hydroxide (Milk Of Magnesia) 2,400 mg PRN QHS PRN PO CONSTIPATION; Start 06/06/18 at 04:15 Amlodipine Besylate (Norvasc) 5 mg DAILY PO Last administered on 06/08/18at 08: 04; Start 06/06/18 at 09:00 Atorvastatin Calcium (Lipitor) 20 mg QHS PO Last administered on 06/08/18at 21: 16; Start 06/06/18 at 21:00 Clozapine (Clozaril) 100 mg BID94 PO Last administered on 06/08/18at 15:41; Start 06/06/18 at 09:00 Clozapine (Clozaril) 50 mg BID94 PO Last administered on 06/08/18at 15:41; Start 06/06/18 at 09:00 Cyanocobalamin (Vitamin B-12) 1,000 mcg DAILY PO Last administered on 08:08; Start 06/06/18 at 09:00 Divalproex Sodium (Depakote Er) 1,000 mg QHS PO Last administered on 06/08/18 21:16; Start 06/06/18 at 21:00 Vitamin D (Vitamin D3) 50,000 unit WEEKLY PO Last administered on 06/07/18 07: 43; Start 06/07/18 at 09:00 Estradiol (Estrace) 1 speedy QMTH VG Last administered on 06/08/18 15:41; Start 06/08/18 at 16:00; Stop 06/08/18 at 21:19; Status DC Furosemide (Lasix) 20 mg DAILY PO Last administered on 06/08/18 08:07; Start 06/06/18 at 09:00 Levothyroxine Sodium (Synthroid) 75 mcg DAILY06 PO Last administered on 07:16; Start 06/06/18 at 06:00 Melatonin 6 mg PRN QHS PRN PO INSOMNIA; Start 06/06/18 at 04:30 Magnesium Hydroxide (Milk Of Magnesia) 2,400 mg PRN DAILY PRN PO CONSTIPATION; Start 06/06/18 at 04:30; Status UNV Polyethylene Glycol (miraLAX) 17 gm DAILY PO Last administered on 06/08/18 08: 08; Start 06/06/18 at 09:00 Prednisolone Acetate (Pred Forte) 1 drop DAILY OD Last administered on 08:13; Start 06/06/18 at 09:00 Artificial Tears (Refresh Classic) 1 drop TID PRN PRN OU DRY EYE; Start at 04:30 Mirtazapine (Remeron) 7.5 mg QHS PO Last administered on 06/08/18 21:16; Start 06/06/18 at 21:00 Trazodone HCl (Desyrel) 100 mg PRN QHS PRN PO INSOMNIA, MAY REPEAT X1 Last administered on 06/07/18 22:51; Start 06/06/18 at 19:00 Olanzapine (ZyPREXA ZYDIS) 5 mg PRN Q2HR PRN PO PSYCHOSIS Last administered on 06/07/18 13:59; Start 06/07/18 at 14:00 Haloperidol (Haldol) 5 mg HS PO ; Start 06/07/18 at 21:00; Stop 06/07/18 at 21: 00; Status DC Haloperidol Lactate (Haldol) 5 mg DAILY IM Last administered on 06/08/18at 08:09 ; Start 06/07/18 at 19:15 Estradiol (Estrace) 1 speedy QMTH VG ; Start 06/11/18 at 21:00 Active Scripts Active Reported Hydroxyzine Hcl 10 Mg Tablet 10 Mg PO PRN Q2HR PRN Clozapine 100 Mg Tablet 1 Tab PO 1700 Remeron (Mirtazapine) 15 Mg Tablet 1 Tab PO 1700 Depakote Er (Divalproex Sodium) 500 Mg Tab.er.24h 750 Mg PO 1700 Nystatin 15 Gm Powder 1 Speedy TP BID Lidocaine 1 Each Adh..patch 1 Each TP DAILY Lotrimin Af (Clotrimazole) 12 Gm Cream..g. 1 Speedy TP BID PRN Sorbitol (Sorbitol Solution) 1 Ml Solution 30 Ml PO PRN DAILY PRN Trazodone Hcl 50 Mg Tablet 100 Mg PO QHS PRN Elmer-128 (Sodium Chloride) 3.5 Gm Oint...g. 1 Speedy OP HS Lipitor (Atorvastatin Calcium) 20 Mg Tablet 20 Mg PO DAILYWSUP Levothyroxine Sodium 75 Mcg Tablet 75 Mcg PO DAILYAC Estrace (Estradiol) 42.5 Gm Cream.appl 1 Speedy VG 2X WEEK Q MON, Endocet 10-325 Mg Tablet (Oxycodone Hcl/Acetaminophen) 1 Each Tablet 1 Each PO PRN Q6HRS PRN Vitamin B-12 (Cyanocobalamin (Vitamin B-12)) 1,000 Mcg Tablet 1,000 Mcg PO DAILY Maalox Advanced Suspension (Mag Hydrox/Aluminum Hyd/Simeth) 355 Ml Oral.susp 15 Ml PO PRN AFTMEALHC PRN Analgesic [place] (Methyl Salicylate/Menthol) 28 Gm Oint...g. 1 Speedy TP PRN QID PRN Risperidone 1 Mg Tablet 1.5 Mg PO 1700 Refresh Classic Eye Drops (Polyvinyl Alcohol/Povidone/Pf) 1 Each Droperette 1 Each OU TID PRN Trazodone Hcl 50 Mg Tablet 100 Mg PO DAILYWSUP Norvasc (Amlodipine Besylate) 5 Mg Tablet 10 Mg PO DAILY Miralax (Polyethylene Glycol 3350) 17 Gm Powd.pack 17 Gm PO DAILY Milk Of Magnesia (Magnesium Hydroxide) 2,400 Mg/10 Ml Oral.susp 2,400 Mg PO PRN DAILY PRN Tylenol (Acetaminophen) 325 Mg Tablet 650 Mg PO PRN Q6HRS PRN I have reviewed the current psychotropics carefully including drug interactions. Risk benefit ratio favors no change other than as noted in my dictated progress note. 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
[2018-06-09] MEDS: LEVOTHYROXINE 75 MCG TABLET PO SCH (05:14)
[2018-06-09 05:45] VITALS: BP 145/92
--- NOTE | 2018-06-09 06:03 | NUR ---
Patient asking to paint her nails. When she was told that we cannot do that right now, she went and asked a different person. When she got the same answer she yelled "now, now. now" and stormed away. She is also asking to make phone calls and was told she would have to wait until atleast 0800.
[2018-06-09] MEDS: cloZAPine 25 MG TABLET PO SCH ×2 (07:49→15:52)
[2018-06-09] MEDS: CYANOCOBALAMIN (VITAMIN B-12) 1,000 MCG TABLET. PO SCH (07:49)
[2018-06-09] MEDS: cloZAPine 100 MG TABLET PO SCH ×2 (07:49→15:52)
[2018-06-09] MEDS: POLYETHYLENE GLYCOL 3350 17 GM PACKET. PO SCH (07:50)
[2018-06-09] MEDS: amLODIPine BESYLATE 5 MG TABLET PO SCH (07:50)
[2018-06-09] MEDS: FUROSEMIDE 20 MG TABLET PO SCH (07:50)
[2018-06-09] MEDS: HALOPERIDOL LACT 5 MG/ML VIAL. IM SCH (07:51)
[2018-06-09] MEDS: prednisoLONE ACETATE 1% OPHTH SUSPENSION 5ML BOTTLE. OD SCH (07:52)
--- NOTE | 2018-06-09 07:54 | NUR ---
FARM CREW LEADER reported pt began throwing items on the floor of the dining room and stomping on them. Staff was unable to redirect her and pt became combative and resistive hitting at staff. Staff escorted the pt to the [facility] for deescalation where pt began to yell "fuck, fuck, fuck, fuck!" "you're a bitch!" "youre a bitch" Pt was hitting on the glass She then was stating to staff "youre a bitch." "youre baby is awful!" "fuck, fuck you, fuck." "you need low lights in your hair, it will frame your face." Pt was also very labile, when the visiting student came into the nurses station pt began stating "youre beautiful, youre beautiful, I love you, I love you." Pt is tangential and has flight of ideas as well. She will ask to go to her room to change her clothes, for her glasses, then to go to her room to lay down, bang on the windows of the nurses station, then pace the hallway. Staff informed pt that if she can show she can regain control of her emotions and actions she can leave the [facility] and rejoin her peers.
--- NOTE | 2018-06-09 08:26 | NUR ---
Nurse offered pt her breakfast and asked her to hold the plate while she (the nurse) opened the storage room and got the rolling table for her. Pt stated "No, you hold it." Nurse again asked the pt to please hold her breakfast plate as it was very full and the table was in the storage closet. Nurse then handed pt her plate. Pt threw her plate on the ground and began stomping on her food, orange juice and milk cup. Nurse informed pt that her behavior is inappropriate and she will continue to remain in the [facility] until she can deescalate. Nurse asked pt what could help her. Pt did not answer. Pt did take her am medication earlier in the morning.
--- NOTE | 2018-06-09 09:30 | NUR ---
Pt was in the shower and sprayed REAL ESTATE ADMINISTRATOR with shower nozzle. REAL ESTATE ADMINISTRATOR removed shower nozzle from pt and held it up and encouraged pt to finish rinsing and called for towels. Nurse brought towels to the shower room and pt yelled "ahhhhh!" Pt then attempted to turn the faucet to hot and the REAL ESTATE ADMINISTRATOR immediately turned it all the way back to the middle. Pt yelled "its hot!" REAL ESTATE ADMINISTRATOR reassured pt that the water was in fact not hot as she readjusted the water immediately after she (the pt) turned it to hot. Pt attempted to take the shower nozzle from REAL ESTATE ADMINISTRATOR multiple times, nurse and REAL ESTATE ADMINISTRATOR tried to redirect pt. Pt then grabbed the shower nozzle and would not let go. Staff shut off the water. Another REAL ESTATE ADMINISTRATOR came into the shower room and tried to redirect pt. Pt spit in CNAs face. Staff escorted pt to the bench in the shower room where pt began to hit, kick, bite, scratch and dig her nails into staff. She yelled bitch, bitch, bitch! She stomped on REAL ESTATE ADMINISTRATOR and nurses feet. Pt then yelled youre all bitches! Nurse called for assistance and 3 other staff members came to help and nurse paged Dr. Pinzon. 5 staff members dried and dressed pt. While assisting pt with her ADLs pt continued to hit, kick, scratch, bite, and spit on staff and yelled ahhhhh!!!! Dr. Pinzon called back with new order to give Haldol 5mg IM now and change her daily IM Haldol dose to 10mg beginning tomorrow. Once pt was dressed staff escorted pt to [facility] where once assisted into chair she hit and spit on a REAL ESTATE ADMINISTRATOR. IM Haldol given.
[2018-06-09] MEDS ORDERED: HALOPERIDOL LACT 5 MG/ML VIAL. IM ONE (09:45)
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
--- NOTE | 2018-06-09 15:10 | NUR ---
Pt was in the dayroom and threw her empty gatorade bottle across the room. When staff asked her not to throw things she began to yell "bitch! bitch! bitch!" Staff escorted pt to [facility] where pt continued to yell out. She demanded to call her daughter. Nurse informed her if she can show staff she can be calm for 15 min she can make a phone call. Pt continued to call staff names then moved the chair to the far set of doors in the [facility] and would kick the doors.
[2018-06-09 15:48] VITALS: BP 144/64
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
[2018-06-09] MEDS ORDERED: hydrOXYzine HCL 25 MG TABLET PO ONE ×2 (17:15→18:25)
[2018-06-09] MEDS: ACETAMINOPHEN 325 MG TABLET PO PRN (18:30)
--- NOTE | 2018-06-09 18:35 | NUR ---
Dr. Pinzon here for rounds, pt is hyperverbal and crying. Pt approached nurses station window and yelled at staff "you're fat and ugly!" repetitively. Pt was delusional X 1 and asked nurse "why do care what I wear." Nurse told pt nurse was fine with what the pt had on. Pt stated "no you are not! You said why are you wearing 5 shirts and 3 pairs of pants!?" Nurse reidrected pt and reminded her that she (the nurse) was ok with what the pt had on. Pt yelled "yeah right." Pt continued to refer to staff as "bitches" and another nurse as " bitch." Second PRN dose of hydroxazine given along with tylenol requested for "arthritis pain."
--- NOTE | 2018-06-09 18:45 | NUR ---
Pt approached nurses station window and spit on the window and rubbed it in with her hand.
[2018-06-09] MEDS: ATORVASTATIN CALCIUM 20 MG TABLET PO SCH (21:00)
[2018-06-09] MEDS: DIVALPROEX ER 500 MG TAB.ER.24H PO SCH (21:00)
[2018-06-09] MEDS: MIRTAZAPINE 7.5 MG TABLET. PO SCH (21:00)
--- NOTE | 2018-06-09 22:20 | PN ---
DATE: 06/08/2018 PSYCHIATRIC PROGRESS NOTE This late entry 06/08/2018 covers elements not covered in my initial note. SUBJECTIVE: I met with the patient in the evening. I have been called by the nursing staff several times during the day and previous evening. She slept 1-1/4 hours previous night, agitated after breakfast and lunch. She had to be taken to the [facility] to remove her from stimulation and had to be in seclusion from 6:45 p.m. to 8:45 p.m. She is somewhat sedated on evening of 06/08/2018 as I met with her. REVIEW OF SYSTEMS: No CV, , pulmonary, eye, ENT system symptoms on review. MENTAL STATUS EXAM: Oriented to herself and situation. Speech is coherent, abstraction fair, computation impaired, language function intact, attention span short. Mood and affect remains labile. LABORATORY DATA: Reviewed. IMPRESSION: Schizoaffective disorder, bipolar type, mixed with psychotic features; anxiety disorder, unspecified; impulse control disorder, unspecified. PLAN: Continue psychotropics from initial note. We have started Haldol IM scheduled because oral was ineffective. May consider lithium or increasing the Haldol IM. Rest unchanged from initial note. KIERSTEN WATT MD DR: SANCHEZ/fredrick JOB#: [id number] / [id number]
--- NOTE | 2018-06-09 22:24 | PDOC ---
Exam Note: Julian Note: Please also refer to the separate dictated note~for this date of service dictated separately.~Patient seen individually. Discussed the patient with Nursing staff reviewed the chart.~Reviewed interim history and current functioning. Reviewed vital signs,~Labs/ Radiology~and current medications noted below. Continue current treatment with the changes noted in the dictated addendum note Assessment: Vital Signs: Vital Signs Date Time Temp Pulse Resp B/P (MAP) Pulse Ox O2 Delivery O2 Flow Rate FiO2 06/09/18 15:48 98.8 104 20 144/64 (90) 95 06/09/18 05:45 Room Air I&O Intake and Output 06/09/18 07:01 Intake Total 2240 ml Balance 2240 ml Intake Oral 2240 ml # Voids 1 Current Medications: Meds: Current Medications Acetaminophen (Tylenol) 650 mg PRN Q6HRS PRN PO PAIN / TEMP Last administered on 06/09/18at 18:30; Start 06/06/18 at 04:15 Multi-Ingredient Ointment (Analgesic Langley) 1 speedy PRN QID PRN TP MUSCLE PAIN Last administered on 06/07/18at 22:53; Start 06/06/18 at 04:15 Al Hydroxide/Mg Hydroxide (Mylanta Plus Xs) 15 ml PRN AFTMEALHC PRN PO DYSPEPSIA; Start 06/06/18 at 04:15 Magnesium Hydroxide (Milk Of Magnesia) 2,400 mg PRN QHS PRN PO CONSTIPATION; Start 06/06/18 at 04:15 Amlodipine Besylate (Norvasc) 5 mg DAILY PO Last administered on 06/09/18at 07: 50; Start 06/06/18 at 09:00 Atorvastatin Calcium (Lipitor) 20 mg QHS PO Last administered on 06/08/18at 21: 16; Start 06/06/18 at 21:00 Clozapine (Clozaril) 100 mg BID94 PO Last administered on 06/09/18at 15:52; Start 06/06/18 at 09:00 Clozapine (Clozaril) 50 mg BID94 PO Last administered on 06/09/18at 15:52; Start 06/06/18 at 09:00 Cyanocobalamin (Vitamin B-12) 1,000 mcg DAILY PO Last administered on at 07:49; Start 06/06/18 at 09:00 Divalproex Sodium (Depakote Er) 1,000 mg QHS PO Last administered on 06/08/18at 21:16; Start 06/06/18 at 21:00 Vitamin D (Vitamin D3) 50,000 unit WEEKLY PO Last administered on 06/07/18at 07: 43; Start 06/07/18 at 09:00 Estradiol (Estrace) 1 speedy QMTH VG Last administered on 06/08/18at 15:41; Start 06/08/18 at 16:00; Stop 06/08/18 at 21:19; Status DC Furosemide (Lasix) 20 mg DAILY PO Last administered on 06/09/18at 07:50; Start 06/06/18 at 09:00 Levothyroxine Sodium (Synthroid) 75 mcg DAILY06 PO Last administered on at 05:14; Start 06/06/18 at 06:00 Melatonin 6 mg PRN QHS PRN PO INSOMNIA; Start 06/06/18 at 04:30 Magnesium Hydroxide (Milk Of Magnesia) 2,400 mg PRN DAILY PRN PO CONSTIPATION; Start 06/06/18 at 04:30; Status UNV Polyethylene Glycol (miraLAX) 17 gm DAILY PO Last administered on 06/09/18 07: 50; Start 06/06/18 at 09:00 Prednisolone Acetate (Pred Forte) 1 drop DAILY OD Last administered on at 07:52; Start 06/06/18 at 09:00 Artificial Tears (Refresh Classic) 1 drop TID PRN PRN OU DRY EYE; Start at 04:30 Mirtazapine (Remeron) 7.5 mg QHS PO Last administered on 06/08/18at 21:16; Start 06/06/18 at 21:00 Trazodone HCl (Desyrel) 100 mg PRN QHS PRN PO INSOMNIA, MAY REPEAT X1 Last administered on 06/07/18at 22:51; Start 06/06/18 at 19:00 Olanzapine (ZyPREXA ZYDIS) 5 mg PRN Q2HR PRN PO PSYCHOSIS Last administered on 06/09/18at 13:06; Start 06/07/18 at 14:00 Haloperidol (Haldol) 5 mg HS PO ; Start 06/07/18 at 21:00; Stop 06/07/18 at 21: 00; Status DC Haloperidol Lactate (Haldol) 5 mg DAILY IM Last administered on 06/09/18at 07:51 ; Start 06/07/18 at 19:15; Stop 06/09/18 at 09:41; Status DC Estradiol (Estrace) 1 speedy QMTH VG ; Start 06/11/18 at 21:00 Haloperidol Lactate (Haldol) 5 mg 1X ONCE IM Last administered on 06/09/18at 09 :43; Start 06/09/18 at 09:45; Stop 06/09/18 at 09:46; Status DC Haloperidol Lactate (Haldol) 10 mg DAILY IM ; Start 06/10/18 at 09:00 Hydroxyzine HCl (Atarax) 50 mg 1X ONCE PO Last administered on 06/09/18at 17:26 ; Start 06/09/18 at 17:15; Stop 06/09/18 at 17:24; Status DC Hydroxyzine HCl (Atarax) 50 mg 1X ONCE PO Last administered on 06/09/18at 18:29 ; Start 06/09/18 at 18:25; Stop 06/09/18 at 18:26; Status DC Active Scripts Active Reported Hydroxyzine Hcl 10 Mg Tablet 10 Mg PO PRN Q2HR PRN Clozapine 100 Mg Tablet 1 Tab PO 1700 Remeron (Mirtazapine) 15 Mg Tablet 1 Tab PO 1700 Depakote Er (Divalproex Sodium) 500 Mg Tab.er.24h 750 Mg PO 1700 Nystatin 15 Gm Powder 1 Speedy TP BID Lidocaine 1 Each Adh..patch 1 Each TP DAILY Lotrimin Af (Clotrimazole) 12 Gm Cream..g. 1 Speedy TP BID PRN Sorbitol (Sorbitol Solution) 1 Ml Solution 30 Ml PO PRN DAILY PRN Trazodone Hcl 50 Mg Tablet 100 Mg PO QHS PRN Elmer-128 (Sodium Chloride) 3.5 Gm Oint...g. 1 Speedy OP HS Lipitor (Atorvastatin Calcium) 20 Mg Tablet 20 Mg PO DAILYWSUP Levothyroxine Sodium 75 Mcg Tablet 75 Mcg PO DAILYAC Estrace (Estradiol) 42.5 Gm Cream.appl 1 Speedy VG 2X WEEK Q FRI, Endocet 10-325 Mg Tablet (Oxycodone Hcl/Acetaminophen) 1 Each Tablet 1 Each PO PRN Q6HRS PRN Vitamin B-12 (Cyanocobalamin (Vitamin B-12)) 1,000 Mcg Tablet 1,000 Mcg PO DAILY Maalox Advanced Suspension (Mag Hydrox/Aluminum Hyd/Simeth) 355 Ml Oral.susp 15 Ml PO PRN AFTMEALHC PRN Analgesic Langley (Methyl Salicylate/Menthol) 28 Gm Oint...g. 1 Speedy TP PRN QID PRN Risperidone 1 Mg Tablet 1.5 Mg PO 1700 Refresh Classic Eye Drops (Polyvinyl Alcohol/Povidone/Pf) 1 Each Droperette 1 Each OU TID PRN Trazodone Hcl 50 Mg Tablet 100 Mg PO DAILYWSUP Norvasc (Amlodipine Besylate) 5 Mg Tablet 10 Mg PO DAILY Miralax (Polyethylene Glycol 3350) 17 Gm Powd.pack 17 Gm PO DAILY Milk Of Magnesia (Magnesium Hydroxide) 2,400 Mg/10 Ml Oral.susp 2,400 Mg PO PRN DAILY PRN Tylenol (Acetaminophen) 325 Mg Tablet 650 Mg PO PRN Q6HRS PRN I have reviewed the current psychotropics carefully including drug interactions. Risk benefit ratio favors no change other than as noted in my dictated progress note. 

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
--- NOTE | 2018-06-09 22:44 | NUR ---
Behavior Intervention Response and Plan: BIRP Note: Behavior: Assumed Care of patient, patient located in Seclusion at shift change. Patient exhibited the following behavior Calm, Drowsy, Sleeping. Brief assessment on rounds of vital signs, medication needs, lab studies, and pain. Treatment plan problems . Intervention: Patient assessed and the following interventions initiated safety checks 15 Minute Checks Personal Alarm in place , Cognitive Assessment , Head to toe Assessment. Response: After interactions and interventions patient responded in the following manner, Drowsy , Sleeping ,Drowsy. Continue to assess behaviors and condition will continue to monitor throughout the shift as needed. Patient educated on ADL's, and hand hygiene. 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 Continue to assess patient for changes in above assessment. Monitor for medication needs, pain, and safety concerns. Hourly rounding performed to ensure safe environment.
[2018-06-10] MEDS: traZODone 100 MG TABLET. PO PRN ×2 (01:56→21:16)
--- NOTE | 2018-06-10 01:57 | NUR ---
Pt became agitated and making sexual statements regarding masturbation. Patient was verbally redirected by several staff members to avoid statements of that nature she did not listen becoming increasingly agitated and verbally abusive to staff members. She was placed in the [address] from the day room where she started banging on the door to the nurse station and locking her self into the quiet room 2. Patient was given prn zydis as well as trazadone will continue to monitor patient for med effectiveness and adverse affects.
--- NOTE | 2018-06-10 02:58 | NUR ---
Medications were not effective pt became more agitative she begin taking off her clothes in the day room we put a onsie on patient which took all 4 techs plus a nurse to put on the onsie. Pt then stated she was sleepy and started rest in the quiet room will continue to monitor patient.
[2018-06-10] MEDS: LEVOTHYROXINE 75 MCG TABLET PO SCH (05:12)
--- NOTE | 2018-06-10 05:14 | NUR ---
Pt continues to exhibit agitated behaviors such as pushing chair in the west hallway into the day room door and beating on the window and door to the nurse station. Pt was verbally redirected several times each attempt failed zydis was given. Will continue to monitor patient for med effectiveness
--- NOTE | 2018-06-10 06:18 | NUR ---
Connor not effective pt started undressing self again in the quiet room, pt still verbally abusive to others she pushed the door in the quiet room so hard that it made a ole in the wall, pt was given another onsie to put on and removed from the quiet room into the [address] where she continued to display agitative behaviors. Will continue to monitor patient.
[2018-06-10] MEDS: CYANOCOBALAMIN (VITAMIN B-12) 1,000 MCG TABLET. PO SCH (07:32)
[2018-06-10] MEDS: POLYETHYLENE GLYCOL 3350 17 GM PACKET. PO SCH (07:32)
[2018-06-10] MEDS: FUROSEMIDE 20 MG TABLET PO SCH (07:33)
[2018-06-10] MEDS: amLODIPine BESYLATE 5 MG TABLET PO SCH (07:33)
[2018-06-10] MEDS: cloZAPine 100 MG TABLET PO SCH ×2 (07:35→16:11)
[2018-06-10] MEDS: cloZAPine 25 MG TABLET PO SCH ×2 (07:36→16:11)
[2018-06-10] MEDS: HALOPERIDOL LACT 5 MG/ML VIAL. IM SCH (07:37)
[2018-06-10] MEDS: prednisoLONE ACETATE 1% OPHTH SUSPENSION 5ML BOTTLE. OD SCH (07:38)
--- NOTE | 2018-06-10 08:35 | NUR ---
Pt began screaming in the dining room and attempted to rip the curtains off the wall. Pt escorted to [facility] to calm.
--- NOTE | 2018-06-10 09:00 | NUR ---
Pt resistive to medications at first then took them whole; however, pt yelled and threatened to throw water on staff.
--- NOTE | 2018-06-10 12:55 | NUR ---
Pt yelled at staff in the dining room during lunch because she didn't get 5 packets of pepper fast enough for her liking. Pt then in the hallway outside [facility] nurses station yelling and calling secretary of state vulgar names. When this nurse approached pt, pt ran to Leia WAGGONER's office and attempted to slam the door shut. This nurse prevented this from happening. Leia confirmed that she was fine with pt staying to talk with her. Confirmed that eLia had a radio available to call for help if necessary. Made staff aware of where pt located and for staff to listen for Leia if she were to need help.
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
[2018-06-10 17:01] VITALS: BP 146/85
[2018-06-10] MEDS: MIRTAZAPINE 7.5 MG TABLET. PO SCH (19:54)
[2018-06-10] MEDS: DIVALPROEX ER 500 MG TAB.ER.24H PO SCH (19:54)
[2018-06-10] MEDS: ATORVASTATIN CALCIUM 20 MG TABLET PO SCH (19:54)
[2018-06-10] MEDS: BENZTROPINE MESYLATE 1 MG TABLET PO SCH (19:56)
[2018-06-10] MEDS: ACETAMINOPHEN 325 MG TABLET PO PRN (19:57)
[2018-06-10] MEDS: MELATONIN 3 MG TABLET PO PRN (21:23)
--- NOTE | 2018-06-10 22:38 | PDOC ---
Exam Note: Julian Note: Please also refer to the separate dictated note~for this date of service dictated separately.~Patient seen individually. Discussed the patient with Nursing staff reviewed the chart.~Reviewed interim history and current functioning. Reviewed vital signs,~Labs/ Radiology~and current medications noted below. Continue current treatment with the changes noted in the dictated addendum note Assessment: Vital Signs: Vital Signs Date Time Temp Pulse Resp B/P (MAP) Pulse Ox O2 Delivery O2 Flow Rate FiO2 06/10/18 17:01 98.6 93 20 146/85 (105) 90 06/09/18 05:45 Room Air I&O Intake and Output 06/10/18 07:01 Intake Total 0 ml Balance 0 ml Intake Oral 0 ml Current Medications: Meds: Current Medications Acetaminophen (Tylenol) 650 mg PRN Q6HRS PRN PO PAIN / TEMP Last administered on 06/10/18 19:57; Start 06/06/18 at 04:15 Multi-Ingredient Ointment (Analgesic [place]) 1 speedy PRN QID PRN TP MUSCLE PAIN Last administered on 06/07/18 22:53; Start 06/06/18 at 04:15 Al Hydroxide/Mg Hydroxide (Mylanta Plus Xs) 15 ml PRN AFTMEALHC PRN PO DYSPEPSIA; Start 06/06/18 at 04:15 Magnesium Hydroxide (Milk Of Magnesia) 2,400 mg PRN QHS PRN PO CONSTIPATION; Start 06/06/18 at 04:15 Amlodipine Besylate (Norvasc) 5 mg DAILY PO Last administered on 06/10/18at 07: 33; Start 06/06/18 at 09:00 Atorvastatin Calcium (Lipitor) 20 mg QHS PO Last administered on 06/10/18 19: 54; Start 06/06/18 at 21:00 Clozapine (Clozaril) 100 mg BID94 PO Last administered on 06/10/18 16:11; Start 06/06/18 at 09:00 Clozapine (Clozaril) 50 mg BID94 PO Last administered on 06/10/18 16:11; Start 06/06/18 at 09:00 Cyanocobalamin (Vitamin B-12) 1,000 mcg DAILY PO Last administered on 07:32; Start 06/06/18 at 09:00 Divalproex Sodium (Depakote Er) 1,000 mg QHS PO Last administered on 06/10/18 19:54; Start 06/06/18 at 21:00 Vitamin D (Vitamin D3) 50,000 unit WEEKLY PO Last administered on 06/07/18 07: 43; Start 06/07/18 at 09:00 Estradiol (Estrace) 1 speedy QMTH VG Last administered on 06/08/18 15:41; Start 06/08/18 at 16:00; Stop 06/08/18 at 21:19; Status DC Furosemide (Lasix) 20 mg DAILY PO Last administered on 06/10/18 07:33; Start 06/06/18 at 09:00 Levothyroxine Sodium (Synthroid) 75 mcg DAILY06 PO Last administered on 05:12; Start 06/06/18 at 06:00 Melatonin 6 mg PRN QHS PRN PO INSOMNIA Last administered on 06/10/18 21:23; Start 06/06/18 at 04:30 Magnesium Hydroxide (Milk Of Magnesia) 2,400 mg PRN DAILY PRN PO CONSTIPATION; Start 06/06/18 at 04:30; Status UNV Polyethylene Glycol (miraLAX) 17 gm DAILY PO Last administered on 06/10/18 07: 32; Start 06/06/18 at 09:00 Prednisolone Acetate (Pred Forte) 1 drop DAILY OD Last administered on 07:38; Start 06/06/18 at 09:00 Artificial Tears (Refresh Classic) 1 drop TID PRN PRN OU DRY EYE; Start at 04:30 Mirtazapine (Remeron) 7.5 mg QHS PO Last administered on 06/10/18 19:54; Start 06/06/18 at 21:00 Trazodone HCl (Desyrel) 100 mg PRN QHS PRN PO INSOMNIA, MAY REPEAT X1 Last administered on 06/10/18 21:16; Start 06/06/18 at 19:00 Olanzapine (ZyPREXA ZYDIS) 5 mg PRN Q2HR PRN PO PSYCHOSIS Last administered on 06/10/18 21:16; Start 06/07/18 at 14:00 Haloperidol (Haldol) 5 mg HS PO ; Start 06/07/18 at 21:00; Stop 06/07/18 at 21: 00; Status DC Haloperidol Lactate (Haldol) 5 mg DAILY IM Last administered on 06/09/18at 07:51 ; Start 06/07/18 at 19:15; Stop 06/09/18 at 09:41; Status DC Estradiol (Estrace) 1 speedy QMTH VG ; Start 06/11/18 at 21:00 Haloperidol Lactate (Haldol) 5 mg 1X ONCE IM Last administered on 06/09/18at 09 :43; Start 06/09/18 at 09:45; Stop 06/09/18 at 09:46; Status DC Haloperidol Lactate (Haldol) 10 mg DAILY IM Last administered on 06/10/18at 07: 37; Start 06/10/18 at 09:00 Hydroxyzine HCl (Atarax) 50 mg 1X ONCE PO Last administered on 06/09/18at 17:26 ; Start 06/09/18 at 17:15; Stop 06/09/18 at 17:24; Status DC Hydroxyzine HCl (Atarax) 50 mg 1X ONCE PO Last administered on 06/09/18at 18:29 ; Start 06/09/18 at 18:25; Stop 06/09/18 at 18:26; Status DC Benztropine Mesylate (Cogentin) 1 mg QHS PO Last administered on 06/10/18at 19: 56; Start 06/10/18 at 21:00 Active Scripts Active Reported Hydroxyzine Hcl 10 Mg Tablet 10 Mg PO PRN Q2HR PRN Clozapine 100 Mg Tablet 1 Tab PO 1700 Remeron (Mirtazapine) 15 Mg Tablet 1 Tab PO 1700 Depakote Er (Divalproex Sodium) 500 Mg Tab.er.24h 750 Mg PO 1700 Nystatin 15 Gm Powder 1 Speedy TP BID Lidocaine 1 Each Adh..patch 1 Each TP DAILY Lotrimin Af (Clotrimazole) 12 Gm Cream..g. 1 Speedy TP BID PRN Sorbitol (Sorbitol Solution) 1 Ml Solution 30 Ml PO PRN DAILY PRN Trazodone Hcl 50 Mg Tablet 100 Mg PO QHS PRN Elmer-128 (Sodium Chloride) 3.5 Gm Oint...g. 1 Speedy OP HS Lipitor (Atorvastatin Calcium) 20 Mg Tablet 20 Mg PO DAILYWSUP Levothyroxine Sodium 75 Mcg Tablet 75 Mcg PO DAILYAC Estrace (Estradiol) 42.5 Gm Cream.appl 1 Speedy VG 2X WEEK Q FRI, URS Endocet 10-325 Mg Tablet (Oxycodone Hcl/Acetaminophen) 1 Each Tablet 1 Each PO PRN Q6HRS PRN Vitamin B-12 (Cyanocobalamin (Vitamin B-12)) 1,000 Mcg Tablet 1,000 Mcg PO DAILY Maalox Advanced Suspension (Mag Hydrox/Aluminum Hyd/Simeth) 355 Ml Oral.susp 15 Ml PO PRN AFTMEALHC PRN Analgesic [place] (Methyl Salicylate/Menthol) 28 Gm Oint...g. 1 Speedy TP PRN QID PRN Risperidone 1 Mg Tablet 1.5 Mg PO 1700 Refresh Classic Eye Drops (Polyvinyl Alcohol/Povidone/Pf) 1 Each Droperette 1 Each OU TID PRN Trazodone Hcl 50 Mg Tablet 100 Mg PO DAILYWSUP Norvasc (Amlodipine Besylate) 5 Mg Tablet 10 Mg PO DAILY Miralax (Polyethylene Glycol 3350) 17 Gm Powd.pack 17 Gm PO DAILY Milk Of Magnesia (Magnesium Hydroxide) 2,400 Mg/10 Ml Oral.susp 2,400 Mg PO PRN DAILY PRN Tylenol (Acetaminophen) 325 Mg Tablet 650 Mg PO PRN Q6HRS PRN I have reviewed the current psychotropics carefully including drug interactions. Risk benefit ratio favors no change other than as noted in my dictated progress note. 

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
[2018-06-11] MEDS: traZODone 100 MG TABLET. PO PRN ×2 (01:37→19:29)
--- NOTE | 2018-06-11 02:30 | NUR ---
Nursing Note The patient was located in the quiet [place] for the majority of the shift. The patient was in the quiet [place] due to her behaviors (yelling, hitting doors, kicking windows, spitting on staff, scratching staff and disrobing in public). The patient complained of generalized pain @ 1956 and was given PRN Tylenol per PRN order. The patient was given PRN Zyprexa Zydis and Trazodone @2115 and melatonin @ 2122. The patient did respond well to the PRN medications but was restless and agitated once again early in the morning. The patient received PRN Trazodone @ 0137 and Zyprexa @ 0222. The patient is currently walking between the day room and quiet n[place].
[2018-06-11 05:37] VITALS: BP 131/80
[2018-06-11] MEDS: amLODIPine BESYLATE 5 MG TABLET PO SCH (08:06)
[2018-06-11] MEDS: cloZAPine 100 MG TABLET PO SCH ×2 (08:06→15:53)
[2018-06-11] MEDS: CYANOCOBALAMIN (VITAMIN B-12) 1,000 MCG TABLET. PO SCH (08:06)
[2018-06-11] MEDS: FUROSEMIDE 20 MG TABLET PO SCH (08:06)
[2018-06-11] MEDS: LEVOTHYROXINE 75 MCG TABLET PO SCH (08:07)
[2018-06-11] MEDS: cloZAPine 25 MG TABLET PO SCH ×2 (08:07→15:53)
[2018-06-11] MEDS: POLYETHYLENE GLYCOL 3350 17 GM PACKET. PO SCH (08:08)
[2018-06-11] MEDS: HALOPERIDOL LACT 5 MG/ML VIAL. IM SCH (08:10)
[2018-06-11] MEDS: prednisoLONE ACETATE 1% OPHTH SUSPENSION 5ML BOTTLE. OD SCH (08:11)
--- NOTE | 2018-06-11 09:52 | NUR ---
WEEKLY ACTIVITY THERAPY NOTE Date of Admission: 06/06/2018 Date of AT Assessment: 06/07/2018 Goal aimed: to increase attention span and engagement Initial Goal: Pt. will participate in all Activity Therapy groups offered (Pt. set goal for self) Weekly progress towards goal: did not achieve Group participation level: minimal Behaviors observed: often in secured hallway, tossing drink bottle on Friday, demanding attitude, difficult to redirect, poor personal boundaries with other patients at times. Difficult to keep on task/ topic Plan: no change to goal
--- NOTE | 2018-06-11 10:07 | NUR ---
WEEKLY NOTE: Pt sleeps roughly 5 hours a night and eating 80% of her meals. Pt is having a ton of behaviors (e.g. kicking, biting, spitting). Pt does have some sexualized behavior (e.g. masturbating, disrobing). Pt is medication compliant; her Depakote level is therapeutic, she is getting Haldol IM q PRN, she also gets Clozaril, which is 150mg BID. Pt is requesting to discharge to [facility]. Pt will have a THS level ran and potentially will be started on Harold.
--- NOTE | 2018-06-11 11:50 | NUR ---
Cassia from the Dept of Aging was here to complete the care assessment for Level II. Pt was currently in the quiet hallway naked and pressing herself again the window at the nurses station. Cassia attempted to contact pt and left a message asking for a returned call. Shortly after, ROSALINE contacted pt dtr Ava to discuss needing to have the care assessment completed. Pt dtr was upset in that she felt that [facility] on and not wanting to do their job. ROSALINE explained to pt dtr that SW brought up having pt complete the care assessment as pt may not be appropriate for [facility] any more. In the last 6 months, pt has been sent out over 5 different occasions because [facility] can no longer handle pt behaviors; this is not best care practices for the pt physical or mental well-being. ROSALINE also explained to pt dtr that pt will need a level II. ROSALINE explained that Level I is a typical LTC or Memory Care setting that provides SN care; however, Level II only handles mental health patients. Those with schizophrenia, Bipolar D/O and other mental health diagnosis that cannot be maintained a the Level I facilities are able to discharge to a Level II facility, if and only if they are appropriate. This includes an actual psychiatrist, psychologist and other mental health specialist on staff that can attend to these care needs. At this time, ROSALINE feels that pt is appropriate; however, the Dept of Aging needs to see pt to make that determination. ROSALINE explained that is pt is not level II appropriate, she would be able to return to [facility]. They will either attempt to see what they can do about caring for pt or give a 30 day notice as they feel they can no longer care for her. ROSALINE explained that was up to [facility] and a conversation they would would have to have with them. After 45 minutes of education and discussing pt behaviors with the dtr Ava, she agreed that pt would need to have the level II and would talk to pt about the completion of it. Ava would like to see pt return to [facility] and realizes that her father will have a hard time allowing pt to leave there as she has lived there for almost 10 years. However, she does understand that pt behaviors have progressed and needs extra monitoring.
--- NOTE | 2018-06-11 12:58 | NUR ---
Pt in quiet hallway at the beginning of the shift sleeping. Pt woke up and was agitated, screaming at nurses, calling names, banging on the windows and the pastrana, spitting on and licking the windows. Pt was compliant with meds taken whole. Pt was asked to put brief on before she was taken to breakfast but pt refused. Pt given prn zyprexa however patient has continued with mentioned behaviors through lunchtime. Pt did agree to put on brief, and dressed herself. Will continue to monitor.
--- NOTE | 2018-06-11 13:45 | NUR ---
Patient is increasingly agitated, yelling at staff, demanding, hitting windows and pastrana. PRN medication provided per eMAR. Patient is locking herself in the quiet room, she has been instructed several times that if she closes the door it will lock behind her. Will continue to monitor.
--- NOTE | 2018-06-11 14:47 | NUR ---
Pt in quiet hallway continuing to yell at staff, call names, and pounding on windows, apstrana, doors and jerking on doorknobs. Pt threw a cup and her lunch trash over window at nurse.
[2018-06-11] MEDS: hydrOXYzine HCL 25 MG TABLET PO PRN ×2 (15:11→22:06)
--- NOTE | 2018-06-11 15:58 | NUR ---
Pt dipped head in quiet room toilet after urinating in it. Pt given prn med and then taken for shower where she kicked, scratched, hit and attempted to bite and spit on staff. Ultimately took 5 staff personnel to finish shower on pt. Pt taken back to quiet [place] where she continued to yell and punch the doors and windows.
[2018-06-11] MEDS: BENZTROPINE MESYLATE 1 MG TABLET PO SCH (19:24)
[2018-06-11] MEDS: ATORVASTATIN CALCIUM 20 MG TABLET PO SCH (19:24)
[2018-06-11] MEDS: DIVALPROEX ER 500 MG TAB.ER.24H PO SCH (19:24)
[2018-06-11] MEDS: MIRTAZAPINE 7.5 MG TABLET. PO SCH (19:24)
[2018-06-11] MEDS: ESTRADIOL 0.01% VAGINAL CREAM 42.5GM TUBE. VG SCH (19:28)
[2018-06-11] MEDS: LITHIUM CARBONATE 300 MG TABLET PO SCH (19:32)
[2018-06-11] MEDS: MELATONIN 3 MG TABLET PO PRN (22:06)
--- NOTE | 2018-06-11 22:52 | PDOC ---
Exam Note: Julian Note: Please also refer to the separate dictated note~for this date of service dictated separately.~Patient seen individually. Discussed the patient with Nursing staff reviewed the chart.~Reviewed interim history and current functioning. Reviewed vital signs,~Labs/ Radiology~and current medications noted below. Continue current treatment with the changes noted in the dictated addendum note Assessment: Vital Signs: Vital Signs Date Time Temp Pulse Resp B/P (MAP) Pulse Ox O2 Delivery O2 Flow Rate FiO2 06/11/18 08:06 81 131/80 06/11/18 05:37 97.8 18 92 06/09/18 05:45 Room Air I&O Intake and Output 06/11/18 07:01 Intake Total 120 ml Balance 120 ml Intake Oral 120 ml Current Medications: Meds: Current Medications Acetaminophen (Tylenol) 650 mg PRN Q6HRS PRN PO PAIN / TEMP Last administered on 06/10/18 19:57; Start 06/06/18 at 04:15 Multi-Ingredient Ointment (Analgesic [place]) 1 speedy PRN QID PRN TP MUSCLE PAIN Last administered on 06/07/18at 22:53; Start 06/06/18 at 04:15 Al Hydroxide/Mg Hydroxide (Mylanta Plus Xs) 15 ml PRN AFTMEALHC PRN PO DYSPEPSIA; Start 06/06/18 at 04:15 Magnesium Hydroxide (Milk Of Magnesia) 2,400 mg PRN QHS PRN PO CONSTIPATION; Start 06/06/18 at 04:15 Amlodipine Besylate (Norvasc) 5 mg DAILY PO Last administered on 06/11/18at 08: 06; Start 06/06/18 at 09:00 Atorvastatin Calcium (Lipitor) 20 mg QHS PO Last administered on 06/11/18 19: 24; Start 06/06/18 at 21:00 Clozapine (Clozaril) 100 mg BID94 PO Last administered on 06/11/18 15:53; Start 06/06/18 at 09:00 Clozapine (Clozaril) 50 mg BID94 PO Last administered on 06/11/18at 15:53; Start 06/06/18 at 09:00 Cyanocobalamin (Vitamin B-12) 1,000 mcg DAILY PO Last administered on at 08:06; Start 06/06/18 at 09:00 Divalproex Sodium (Depakote Er) 1,000 mg QHS PO Last administered on 06/11/18 19:24; Start 06/06/18 at 21:00 Vitamin D (Vitamin D3) 50,000 unit WEEKLY PO Last administered on 06/07/18 07: 43; Start 06/07/18 at 09:00 Estradiol (Estrace) 1 speedy QMTH VG Last administered on 06/08/18 15:41; Start 06/08/18 at 16:00; Stop 06/08/18 at 21:19; Status DC Furosemide (Lasix) 20 mg DAILY PO Last administered on 06/11/18 08:06; Start 06/06/18 at 09:00 Levothyroxine Sodium (Synthroid) 75 mcg DAILY06 PO Last administered on 08:07; Start 06/06/18 at 06:00 Melatonin 6 mg PRN QHS PRN PO INSOMNIA Last administered on 06/11/18 22:06; Start 06/06/18 at 04:30 Magnesium Hydroxide (Milk Of Magnesia) 2,400 mg PRN DAILY PRN PO CONSTIPATION; Start 06/06/18 at 04:30; Status UNV Polyethylene Glycol (miraLAX) 17 gm DAILY PO Last administered on 06/11/18 08: 08; Start 06/06/18 at 09:00 Prednisolone Acetate (Pred Forte) 1 drop DAILY OD Last administered on 08:11; Start 06/06/18 at 09:00 Artificial Tears (Refresh Classic) 1 drop TID PRN PRN OU DRY EYE; Start at 04:30 Mirtazapine (Remeron) 7.5 mg QHS PO Last administered on 06/11/18 19:24; Start 06/06/18 at 21:00 Trazodone HCl (Desyrel) 100 mg PRN QHS PRN PO INSOMNIA, MAY REPEAT X1 Last administered on 06/11/18 19:29; Start 06/06/18 at 19:00 Olanzapine (ZyPREXA ZYDIS) 5 mg PRN Q2HR PRN PO PSYCHOSIS Last administered on 06/11/18 15:53; Start 06/07/18 at 14:00 Haloperidol (Haldol) 5 mg HS PO ; Start 06/07/18 at 21:00; Stop 06/07/18 at 21: 00; Status DC Haloperidol Lactate (Haldol) 5 mg DAILY IM Last administered on 06/09/18at 07:51 ; Start 06/07/18 at 19:15; Stop 06/09/18 at 09:41; Status DC Estradiol (Estrace) 1 speedy QMTH VG ; Start 06/11/18 at 21:00 Haloperidol Lactate (Haldol) 5 mg 1X ONCE IM Last administered on 06/09/18at 09 :43; Start 06/09/18 at 09:45; Stop 06/09/18 at 09:46; Status DC Haloperidol Lactate (Haldol) 10 mg DAILY IM Last administered on 06/11/18at 08: 10; Start 06/10/18 at 09:00 Hydroxyzine HCl (Atarax) 50 mg 1X ONCE PO Last administered on 06/09/18at 17:26 ; Start 06/09/18 at 17:15; Stop 06/09/18 at 17:24; Status DC Hydroxyzine HCl (Atarax) 50 mg 1X ONCE PO Last administered on 06/09/18at 18:29 ; Start 06/09/18 at 18:25; Stop 06/09/18 at 18:26; Status DC Benztropine Mesylate (Cogentin) 1 mg QHS PO Last administered on 06/11/18at 19: 24; Start 06/10/18 at 21:00 [place] Carbonate 300 mg HS PO Last administered on 06/11/18at 19:32; Start at 21:00 Hydroxyzine HCl (Atarax) 50 mg PRN Q2HR PRN PO SEDATION Last administered on at 22:06; Start 06/11/18 at 15:00 Active Scripts Active Reported Hydroxyzine Hcl 10 Mg Tablet 10 Mg PO PRN Q2HR PRN Clozapine 100 Mg Tablet 1 Tab PO 1700 Remeron (Mirtazapine) 15 Mg Tablet 1 Tab PO 1700 Depakote Er (Divalproex Sodium) 500 Mg Tab.er.24h 750 Mg PO 1700 Nystatin 15 Gm Powder 1 Speedy TP BID Lidocaine 1 Each Adh..patch 1 Each TP DAILY Lotrimin Af (Clotrimazole) 12 Gm Cream..g. 1 Speedy TP BID PRN Sorbitol (Sorbitol Solution) 1 Ml Solution 30 Ml PO PRN DAILY PRN Trazodone Hcl 50 Mg Tablet 100 Mg PO QHS PRN Elmer-128 (Sodium Chloride) 3.5 Gm Oint...g. 1 Speedy OP HS Lipitor (Atorvastatin Calcium) 20 Mg Tablet 20 Mg PO DAILYWSUP Levothyroxine Sodium 75 Mcg Tablet 75 Mcg PO DAILYAC Estrace (Estradiol) 42.5 Gm Cream.appl 1 Speedy VG 2X WEEK Q FRI, URS Endocet 10-325 Mg Tablet (Oxycodone Hcl/Acetaminophen) 1 Each Tablet 1 Each PO PRN Q6HRS PRN Vitamin B-12 (Cyanocobalamin (Vitamin B-12)) 1,000 Mcg Tablet 1,000 Mcg PO DAILY Maalox Advanced Suspension (Mag Hydrox/Aluminum Hyd/Simeth) 355 Ml Oral.susp 15 Ml PO PRN AFTMEALHC PRN Analgesic [place] (Methyl Salicylate/Menthol) 28 Gm Oint...g. 1 Speedy TP PRN QID PRN Risperidone 1 Mg Tablet 1.5 Mg PO 1700 Refresh Classic Eye Drops (Polyvinyl Alcohol/Povidone/Pf) 1 Each Droperette 1 Each OU TID PRN Trazodone Hcl 50 Mg Tablet 100 Mg PO DAILYWSUP Norvasc (Amlodipine Besylate) 5 Mg Tablet 10 Mg PO DAILY Miralax (Polyethylene Glycol 3350) 17 Gm Powd.pack 17 Gm PO DAILY Milk Of Magnesia (Magnesium Hydroxide) 2,400 Mg/10 Ml Oral.susp 2,400 Mg PO PRN DAILY PRN Tylenol (Acetaminophen) 325 Mg Tablet 650 Mg PO PRN Q6HRS PRN I have reviewed the current psychotropics carefully including drug interactions. Risk benefit ratio favors no change other than as noted in my dictated progress note. 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
[2018-06-12] MEDS: hydrOXYzine HCL 25 MG TABLET PO PRN (00:21)
[2018-06-12] MEDS: traZODone 100 MG TABLET. PO PRN ×4 (00:21→21:09)
--- NOTE | 2018-06-12 02:20 | NUR ---
Nursing Note the patient is once again very agitated, aggressive, combative, spitting and biting staff and kicking windows and doors. The patient is completely non compliant with cares but is compliant with medications. The patient was given PRN Melatonin@2206, Atarax@2206, 0021, Trazodone@1929, 0021 and Zyprexa Zydis @ 0056. The patient continues with these behaviors at this time in the quiet hallway.
--- NOTE | 2018-06-12 04:31 | NUR ---
Nursing Note The patient continues with agitated and aggressive behaviors in the quiet [place]. The patient continues to disrobe and become combative with staff during cares. Dr. Pinzon was called and an order for Trazodone 100mg x1 may repeat x1 was given. The patient was given PRN Trazodone @0318 and 0416. The patient was also given PRN Zyprexa Zydis @0419. The patient continues behaviors in the quiet hallway.
[2018-06-12] MEDS: LEVOTHYROXINE 75 MCG TABLET PO SCH (06:13)
--- NOTE | 2018-06-12 08:00 | NUR ---
Pt in quiet hallway this am yelling, pounding on nurses station door. When pt escorted to bathroom, pt combative w/ staff, hitting, scratching and bitting. Pt demanding things such as making a phone call by screaming. Informed pt that she would not be making any phone calls until she controls her behavior. Will continue to monitor.
[2018-06-12] MEDS: HALOPERIDOL LACT 5 MG/ML VIAL. IM SCH (08:50)
[2018-06-12] MEDS: CYANOCOBALAMIN (VITAMIN B-12) 1,000 MCG TABLET. PO SCH (08:51)
[2018-06-12] MEDS: FUROSEMIDE 20 MG TABLET PO SCH (08:51)
[2018-06-12] MEDS: amLODIPine BESYLATE 5 MG TABLET PO SCH (08:51)
[2018-06-12] MEDS: POLYETHYLENE GLYCOL 3350 17 GM PACKET. PO SCH (08:51)
[2018-06-12] MEDS: cloZAPine 25 MG TABLET PO SCH ×2 (08:51→16:11)
[2018-06-12] MEDS: cloZAPine 100 MG TABLET PO SCH ×2 (08:51→16:10)
[2018-06-12] MEDS: prednisoLONE ACETATE 1% OPHTH SUSPENSION 5ML BOTTLE. OD SCH (08:52)
--- NOTE | 2018-06-12 09:00 | NUR ---
Pt refused her breakfast but drank another ensure. Pt still demanding but less yelling and kicking of doors; therefore, allowed pt to call and speak with her .
--- NOTE | 2018-06-12 13:20 | NUR ---
Pt was able to eat lunch in the dining room during the last 20 minutes without incident. Pt was still somewhat loud and intrusive but much improved from recent days.
--- NOTE | 2018-06-12 16:07 | PN ---
DATE: 06/10/2018 PSYCHIATRIC PROGRESS NOTE This late entry 06/10/2018 covers elements not covered in my initial note 06/10/2017. SUBJECTIVE: I met with the patient in the evening and I have been called several times all day, but nursing staff since the patient has had a very very difficult day. She has been psychotic, manic, agitated. She slept 2-3/4 hours previous night. Even at night when I was called by nursing staff. She was agitated, banging on doors, windows, hitting, kicking, spitting had to be in the quiet room. She has punched a hole in the wall, undresses herself, masturbating in public, extremely combative, throwing things, screaming most of the night. Little better during the day on 06/10/2017. Reluctantly took Clozaril, but threw the water straight on the face of the nursing staff. REVIEW OF SYSTEMS: Positive for vague somatic symptoms. No CV, , pulmonary, eye system symptoms on review. MENTAL STATUS EXAM: Oriented to herself and situation. Speech coherent, rapid. Abstraction fair, computation impaired, language function intact. Attention span very short. Mood and affect extremely labile, remains extremely psychotic. LABORATORY DATA: Reviewed. I have been adjusting psychotropics and PRNs every time the nursing staff called me. IMPRESSION: Schizoaffective disorder, bipolar type, mixed with psychotic features; anxiety disorder, unspecified; impulse control disorder, unspecified. PLAN: Continue psychotropics from initial note. Valproic acid level is therapeutic at 67. Lengthy discussion about initiating lithium as a mood stabilizer and she is on Haldol IM 10 mg daily, Depakote, Remeron, trazodone, Clozaril 150 b.i.d., melatonin, hydroxyzine p.r.n., Zyprexa p.r.n., amongst others. KIERSTEN WATT MD DR: SANCHEZ/fredrick JOB#: [id number] / [id number]
--- NOTE | 2018-06-12 16:17 | NUR ---
Pt resistive to 1600 medication but finally took them. Pt loudly demanding that her closet be opened then she wanted to perform a complete inventory of her belongings. This nurse informed pt that staff did not have the time to perform an inventory, pt willing to accept having her Bible left out for her to read. Will continue to monitor.
[2018-06-12 16:34] LABS: ALBUMIN 3.1 g/dL (3.4-5.0); ALBUMIN/GLOBULIN RATIO 0.8 (1.0-1.7); CALCIUM 10.2 mg/dL (8.5-10.1); POTASSIUM 4.1 mmol/L (3.5-5.1); TOTAL BILIRUBIN 0.3 mg/dL (0.2-1.0); TOTAL PROTEIN 7.2 g/dL (6.4-8.2)
[2018-06-12 16:53] VITALS: BP 106/79
--- NOTE | 2018-06-12 16:55 | NUR ---
Pt became agitated in day room, yelling, trying to hit staff. Escorted to hallway to calm.
[2018-06-12 17:48] LABS: BASO % 0 % (0-3); EOS # 0.2 x10^3/uL (0.0-0.7); EOS % 3 % (0-3); LYMPH # 1.4 x10^3/uL (1.0-4.8); LYMPH % 25 % (24-48); MEAN CORPUSCULAR HEMOGLOBIN 29 pg (25-35); MEAN CORPUSCULAR HGB CONC 33 g/dL (31-37); MEAN CORPUSCULAR VOLUME 86 fL (79-100); MONO # 1.1 x10^3/uL (0.0-1.1); MONO % 19 % (0-9); NEUT % 53 % (31-73); PLATELET COUNT 227 x10^3/uL (140-400); RED CELL DISTRIBUTION WIDTH 15.6 % (11.5-14.5); WHITE BLOOD COUNT 5.7 x10^3/uL (4.0-11.0)
--- NOTE | 2018-06-12 19:02 | NUR ---
When presented with her dinner pt ate what she wanted and threw the rest on the floor.
[2018-06-12] MEDS: BENZTROPINE MESYLATE 1 MG TABLET PO SCH (21:09)
[2018-06-12] MEDS: DIVALPROEX ER 500 MG TAB.ER.24H PO SCH (21:09)
[2018-06-12] MEDS: ATORVASTATIN CALCIUM 20 MG TABLET PO SCH (21:09)
[2018-06-12] MEDS: MIRTAZAPINE 7.5 MG TABLET. PO SCH (21:10)
[2018-06-12] MEDS: LITHIUM CARBONATE 300 MG TABLET PO SCH (21:10)
--- NOTE | 2018-06-12 22:40 | PDOC ---
Exam Note: Julian Note: Please also refer to the separate dictated note~for this date of service dictated separately.~Patient seen individually. Discussed the patient with Nursing staff reviewed the chart.~Reviewed interim history and current functioning. Reviewed vital signs,~Labs/ Radiology~and current medications noted below. Continue current treatment with the changes noted in the dictated addendum note Assessment: Vital Signs: Vital Signs Date Time Temp Pulse Resp B/P (MAP) Pulse Ox O2 Delivery O2 Flow Rate FiO2 06/12/18 16:53 98.4 104 20 106/79 (88) 97 Room Air I&O Intake and Output 06/12/18 07:01 Intake Total 0 ml Balance 0 ml Intake Oral 0 ml # Voids 3 Labs: Laboratory Tests Test 06/12/18 16:05 White Blood Count 5.7 x10^3/uL (4.0-11.0) Red Blood Count 4.20 x10^6/uL (3.50-5.40) Hemoglobin 12.0 g/dL (12.0-15.5) Hematocrit 36.0 % (36.0-47.0) Mean Corpuscular Volume 86 fL (79-100) Mean Corpuscular Hemoglobin 29 pg (25-35) Mean Corpuscular Hemoglobin Concent 33 g/dL (31-37) Red Cell Distribution Width 15.6 % (11.5-14.5) H Platelet Count 227 x10^3/uL (140-400) Neutrophils (%) (Auto) 53 % (31-73) Lymphocytes (%) (Auto) 25 % (24-48) Monocytes (%) (Auto) 19 % (0-9) H Eosinophils (%) (Auto) 3 % (0-3) Basophils (%) (Auto) 0 % (0-3) Neutrophils # (Auto) 3.0 x10^3uL (1.8-7.7) Lymphocytes # (Auto) 1.4 x10^3/uL (1.0-4.8) Monocytes # (Auto) 1.1 x10^3/uL (0.0-1.1) Eosinophils # (Auto) 0.2 x10^3/uL (0.0-0.7) Basophils # (Auto) 0.0 x10^3/uL (0.0-0.2) Sodium Level 141 mmol/L (136-145) Potassium Level 4.1 mmol/L (3.5-5.1) Chloride Level 103 mmol/L (98-107) Carbon Dioxide Level 28 mmol/L (21-32) Anion Gap 10 (6-14) Blood Urea Nitrogen 22 mg/dL (7-20) H Creatinine 1.0 mg/dL (0.6-1.0) Estimated GFR (Cockcroft-Gault) 55.0 BUN/Creatinine Ratio 22 (6-20) H Glucose Level 142 mg/dL (70-99) H Calcium Level 10.2 mg/dL (8.5-10.1) H Total Bilirubin 0.3 mg/dL (0.2-1.0) Aspartate Amino Transferase (AST) 71 U/L (15-37) H Alanine Aminotransferase (ALT) 39 U/L (14-59) Alkaline Phosphatase 97 U/L (46-116) Total Protein 7.2 g/dL (6.4-8.2) Albumin 3.1 g/dL (3.4-5.0) L Albumin/Globulin Ratio 0.8 (1.0-1.7) L Current Medications: Meds: Current Medications Acetaminophen (Tylenol) 650 mg PRN Q6HRS PRN PO PAIN / TEMP Last administered on 06/10/18 19:57; Start 06/06/18 at 04:15 Multi-Ingredient Ointment (Analgesic [place]) 1 speedy PRN QID PRN TP MUSCLE PAIN Last administered on 06/07/18 22:53; Start 06/06/18 at 04:15 Al Hydroxide/Mg Hydroxide (Mylanta Plus Xs) 15 ml PRN AFTMEALHC PRN PO DYSPEPSIA; Start 06/06/18 at 04:15 Magnesium Hydroxide (Milk Of Magnesia) 2,400 mg PRN QHS PRN PO CONSTIPATION; Start 06/06/18 at 04:15 Amlodipine Besylate (Norvasc) 5 mg DAILY PO Last administered on 06/12/18 08: 51; Start 06/06/18 at 09:00 Atorvastatin Calcium (Lipitor) 20 mg QHS PO Last administered on 06/12/18 21: 09; Start 06/06/18 at 21:00 Clozapine (Clozaril) 100 mg BID94 PO Last administered on 06/12/18 16:10; Start 06/06/18 at 09:00 Clozapine (Clozaril) 50 mg BID94 PO Last administered on 06/12/18 16:11; Start 06/06/18 at 09:00 Cyanocobalamin (Vitamin B-12) 1,000 mcg DAILY PO Last administered on 08:51; Start 06/06/18 at 09:00 Divalproex Sodium (Depakote Er) 1,000 mg QHS PO Last administered on 06/12/18 21:09; Start 06/06/18 at 21:00 Vitamin D (Vitamin D3) 50,000 unit WEEKLY PO Last administered on 06/07/18 07: 43; Start 06/07/18 at 09:00 Estradiol (Estrace) 1 speedy QMTH VG Last administered on 06/08/18 15:41; Start 06/08/18 at 16:00; Stop 06/08/18 at 21:19; Status DC Furosemide (Lasix) 20 mg DAILY PO Last administered on 06/12/18 08:51; Start 06/06/18 at 09:00 Levothyroxine Sodium (Synthroid) 75 mcg DAILY06 PO Last administered on 06:13; Start 06/06/18 at 06:00 Melatonin 6 mg PRN QHS PRN PO INSOMNIA Last administered on 06/11/18 22:06; Start 06/06/18 at 04:30 Magnesium Hydroxide (Milk Of Magnesia) 2,400 mg PRN DAILY PRN PO CONSTIPATION; Start 06/06/18 at 04:30; Status UNV Polyethylene Glycol (miraLAX) 17 gm DAILY PO Last administered on 06/12/18 08: 51; Start 06/06/18 at 09:00 Prednisolone Acetate (Pred Forte) 1 drop DAILY OD Last administered on 08:52; Start 06/06/18 at 09:00 Artificial Tears (Refresh Classic) 1 drop TID PRN PRN OU DRY EYE; Start at 04:30 Mirtazapine (Remeron) 7.5 mg QHS PO Last administered on 06/12/18 21:10; Start 06/06/18 at 21:00 Trazodone HCl (Desyrel) 100 mg PRN QHS PRN PO INSOMNIA, MAY REPEAT X3 Last administered on 06/12/18at 21:09; Start 06/06/18 at 19:00 Olanzapine (ZyPREXA ZYDIS) 5 mg PRN Q2HR PRN PO PSYCHOSIS Last administered on 06/12/18 04:16; Start 06/07/18 at 14:00 Haloperidol (Haldol) 5 mg HS PO ; Start 06/07/18 at 21:00; Stop 06/07/18 at 21: 00; Status DC Haloperidol Lactate (Haldol) 5 mg DAILY IM Last administered on 06/09/18at 07:51 ; Start 06/07/18 at 19:15; Stop 06/09/18 at 09:41; Status DC Estradiol (Estrace) 1 speedy QMTH VG ; Start 06/11/18 at 21:00 Haloperidol Lactate (Haldol) 5 mg 1X ONCE IM Last administered on 06/09/18at 09 :43; Start 06/09/18 at 09:45; Stop 06/09/18 at 09:46; Status DC Haloperidol Lactate (Haldol) 10 mg DAILY IM Last administered on 06/12/18at 08: 50; Start 06/10/18 at 09:00 Hydroxyzine HCl (Atarax) 50 mg 1X ONCE PO Last administered on 06/09/18at 17:26 ; Start 06/09/18 at 17:15; Stop 06/09/18 at 17:24; Status DC Hydroxyzine HCl (Atarax) 50 mg 1X ONCE PO Last administered on 06/09/18at 18:29 ; Start 06/09/18 at 18:25; Stop 06/09/18 at 18:26; Status DC Benztropine Mesylate (Cogentin) 1 mg QHS PO Last administered on 06/12/18at 21: 09; Start 06/10/18 at 21:00 [place] Carbonate 300 mg HS PO Last administered on 06/12/18 21:10; Start at 21:00 Hydroxyzine HCl (Atarax) 50 mg PRN Q2HR PRN PO SEDATION Last administered on 00:21; Start 06/11/18 at 15:00 Trazodone HCl (Desyrel) 100 mg PRN 1X PRN PO insomnia Last administered on 1/25 /19at 04:16; Start 06/12/18 at 03:15 Active Scripts Active Reported Hydroxyzine Hcl 10 Mg Tablet 10 Mg PO PRN Q2HR PRN Clozapine 100 Mg Tablet 1 Tab PO 1700 Remeron (Mirtazapine) 15 Mg Tablet 1 Tab PO 1700 Depakote Er (Divalproex Sodium) 500 Mg Tab.er.24h 750 Mg PO 1700 Nystatin 15 Gm Powder 1 Speedy TP BID Lidocaine 1 Each Adh..patch 1 Each TP DAILY Lotrimin Af (Clotrimazole) 12 Gm Cream..g. 1 Speedy TP BID PRN Sorbitol (Sorbitol Solution) 1 Ml Solution 30 Ml PO PRN DAILY PRN Trazodone Hcl 50 Mg Tablet 100 Mg PO QHS PRN Elmer-128 (Sodium Chloride) 3.5 Gm Oint...g. 1 Speeyd OP HS Lipitor (Atorvastatin Calcium) 20 Mg Tablet 20 Mg PO DAILYWSUP Levothyroxine Sodium 75 Mcg Tablet 75 Mcg PO DAILYAC Estrace (Estradiol) 42.5 Gm Cream.appl 1 Speedy VG 2X WEEK Q FRI, Endocet 10-325 Mg Tablet (Oxycodone Hcl/Acetaminophen) 1 Each Tablet 1 Each PO PRN Q6HRS PRN Vitamin B-12 (Cyanocobalamin (Vitamin B-12)) 1,000 Mcg Tablet 1,000 Mcg PO DAILY Maalox Advanced Suspension (Mag Hydrox/Aluminum Hyd/Simeth) 355 Ml Oral.susp 15 Ml PO PRN AFTMEALHC PRN Analgesic [place] (Methyl Salicylate/Menthol) 28 Gm Oint...g. 1 Speedy TP PRN QID PRN Risperidone 1 Mg Tablet 1.5 Mg PO 1700 Refresh Classic Eye Drops (Polyvinyl Alcohol/Povidone/Pf) 1 Each Droperette 1 Each OU TID PRN Trazodone Hcl 50 Mg Tablet 100 Mg PO DAILYWSUP Norvasc (Amlodipine Besylate) 5 Mg Tablet 10 Mg PO DAILY Miralax (Polyethylene Glycol 3350) 17 Gm Powd.pack 17 Gm PO DAILY Milk Of Magnesia (Magnesium Hydroxide) 2,400 Mg/10 Ml Oral.susp 2,400 Mg PO PRN DAILY PRN Tylenol (Acetaminophen) 325 Mg Tablet 650 Mg PO PRN Q6HRS PRN I have reviewed the current psychotropics carefully including drug interactions. Risk benefit ratio favors no change other than as noted in my dictated progress note. 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
[2018-06-13] MEDS: traZODone 100 MG TABLET. PO PRN ×7 (00:41→22:23)
[2018-06-13] MEDS: hydrOXYzine HCL 25 MG TABLET PO PRN ×4 (00:55→22:25)
[2018-06-13] MEDS: MELATONIN 3 MG TABLET PO PRN ×2 (00:55→22:23)
--- NOTE | 2018-06-13 03:54 | NUR ---
Nursing Note The patient was located in the quiet [place] for her assessment and medication pass. The patient took her medication whole and was appropriate during her interview. The patient was very restless @ HS and was given Trazodone @ 2109, 0044, 0112, 0144. The patient was agitated hitting/kicking doors and pastrana and was given Atarax and Melatonin @0056. The patient is currently sleeping in the quiet [place].
--- NOTE | 2018-06-13 05:56 | PN ---
DATE: 06/11/2018 PSYCHIATRIC PROGRESS NOTE SUBJECTIVE: The patient was seen on rounds evening of 06/11/2018 and discussed with nursing staff multiple times with emergency calls all day and previous night and staffed at treatment team meeting with the entire team in the morning. The patient has been extremely disruptive, aggressive, was disrobing, previous night slept 5 hours, appetite 80%, banging on the door and on the nursing window, had to be placed ____, was biting, hitting, kicking, spitting at staff, running around naked, hyperverbal, urinating in the toilet and putting her head into it to drink it until nursing staff intervened. We had started hydroxyzine 50 mg q. 2 hours p.r.n. additionally because none of the other PRNs were effective, max 150 mg in 24 hours. Reviewed her history at length, treatment options with decision to initiate lithium as noted below. REVIEW OF SYSTEMS: Vague somatic symptoms. No CV, , eye, ENT or pulmonary system symptoms on review. Reliability poor. MENTAL STATUS EXAM: Oriented to herself. Insight is limited. Judgment very poor. Language function intact. Attention span short. Mood and affect markedly labile, quite paranoid, hyperverbal, psychotic, labile. No active suicidal or homicidal ideation. LABORATORY DATA: Reviewed. IMPRESSION: Schizoaffective disorder, bipolar type, mixed with psychotic features; bipolar 1 disorder, mixed with psychotic features; anxiety disorder, unspecified; impulse control disorder, unspecified. PLAN: Continue the IM Haldol along with Clozaril, melatonin and Depakote level is therapeutic at 67, Remeron 7.5 mg at bedtime, and trazodone. We will have a pharmacy consult to see if any of her medications could be worsening her amita and start lithium carbonate 300 mg p.o. at bedtime. Check CBC, CMP, TSH, and lithium level in 3 days. Adjust to reach therapeutic level, being cognizant of the fact that she is on Haldol and to avoid lithium and Haldol interaction. We will keep the lithium level below 0.7 or somewhere there. Make further adjustments as clinically indicated. KIERSTEN WATT MD DR: SANCHEZ/fredrick JOB#: [id number] / [id number]
[2018-06-13] MEDS: ACETAMINOPHEN 325 MG TABLET PO PRN (08:02)
[2018-06-13] MEDS: amLODIPine BESYLATE 5 MG TABLET PO SCH (09:00)
[2018-06-13] MEDS: LEVOTHYROXINE 75 MCG TABLET PO SCH (09:11)
[2018-06-13] MEDS: cloZAPine 25 MG TABLET PO SCH ×2 (09:12→16:45)
[2018-06-13] MEDS: HALOPERIDOL LACT 5 MG/ML VIAL. IM SCH (09:12)
[2018-06-13] MEDS: prednisoLONE ACETATE 1% OPHTH SUSPENSION 5ML BOTTLE. OD SCH (09:12)
[2018-06-13] MEDS: FUROSEMIDE 20 MG TABLET PO SCH (09:13)
[2018-06-13] MEDS: cloZAPine 100 MG TABLET PO SCH ×2 (09:13→16:39)
[2018-06-13] MEDS: POLYETHYLENE GLYCOL 3350 17 GM PACKET. PO SCH (09:14)
[2018-06-13] MEDS: CYANOCOBALAMIN (VITAMIN B-12) 1,000 MCG TABLET. PO SCH (09:20)
--- NOTE | 2018-06-13 09:20 | NUR ---
Pt refused vs to be taken this am
--- NOTE | 2018-06-13 10:49 | NUR ---
Pt is tangential and cant focus on tasks. She is impulsive and intrusive and will try to fix other pts hair. She threw magazine and the 15 min checks this am and staff had to redirect her. She is demanding at times and tries to negotiate for things such as "Ill take my medicine if you give me......" Or "I want a shower now." Staff spends a lot of time redirecting pt and reminding her of appropriate behaviors.
--- NOTE | 2018-06-13 15:10 | NUR ---
Pt was in the dayroom and started banging a walker into the doors to the hallway and slamming it into the ground. Pt was unable to be redirected by staff and had to be escorted to the West hallway by X 2 assist by staff. When in the hallway pt licked the window to the nurses station, rammed a chair into the doors to the dayroom, pulled on the doors to the dayroom, and yelled out. Pt was encouraged to sit and deep breathe. However pt paced and at times cussed at staff. She did eventally calm down as much as she could to her baseline at this time.
--- NOTE | 2018-06-13 15:24 | NUR ---
PRN edison hernandez
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
[2018-06-13 15:53] VITALS: BP 163/51
--- NOTE | 2018-06-13 16:44 | NUR ---
Pt is yelling, pacing, hitting doors, windows, and shaking doors in the halls. PRN atarax given.
--- NOTE | 2018-06-13 18:03 | NUR ---
PROFESSIONAL SKATEBOARDER offered pt to go to the dining room multiple times. Pt demanded benadryl. PROFESSIONAL SKATEBOARDER explained she must have an EKG before the Dr. will change her medication. Pt then demanded to use the phone. PROFESSIONAL SKATEBOARDER redirected pt to dinner as pt did not eat lunch. Pt would not answer PROFESSIONAL SKATEBOARDER. JEAN CARLOS again offered pt to go to dining room to dinner 2 more times, pt would not answer PROFESSIONAL SKATEBOARDER.
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
[2018-06-13] MEDS ORDERED: LORazepam INTENSOL 2 MG/ML BOTTLE SL ONE (18:15)
[2018-06-13] MEDS: MIRTAZAPINE 7.5 MG TABLET. PO SCH (19:19)
[2018-06-13] MEDS: LITHIUM CARBONATE 300 MG TABLET PO SCH (19:20)
[2018-06-13] MEDS: ATORVASTATIN CALCIUM 20 MG TABLET PO SCH (19:20)
[2018-06-13] MEDS: DIVALPROEX ER 500 MG TAB.ER.24H PO SCH (19:20)
[2018-06-13] MEDS: BENZTROPINE MESYLATE 1 MG TABLET PO SCH (19:20)
--- NOTE | 2018-06-13 22:19 | PDOC ---
Exam Note: Julian Note: Please also refer to the separate dictated note~for this date of service dictated separately.~Patient seen individually. Discussed the patient with Nursing staff reviewed the chart.~Reviewed interim history and current functioning. Reviewed vital signs,~Labs/ Radiology~and current medications noted below. Continue current treatment with the changes noted in the dictated addendum note Assessment: Vital Signs: Vital Signs Date Time Temp Pulse Resp B/P (MAP) Pulse Ox O2 Delivery O2 Flow Rate FiO2 06/13/18 15:53 98.0 108 20 163/51 (88) 96 06/12/18 16:53 Room Air I&O Intake and Output 06/13/18 07:01 Intake Total 840 ml Balance 840 ml Intake Oral 840 ml Current Medications: Meds: Current Medications Acetaminophen (Tylenol) 650 mg PRN Q6HRS PRN PO PAIN / TEMP Last administered on 06/13/18 08:02; Start 06/06/18 at 04:15 Multi-Ingredient Ointment (Analgesic [place]) 1 speedy PRN QID PRN TP MUSCLE PAIN Last administered on 06/07/18at 22:53; Start 06/06/18 at 04:15 Al Hydroxide/Mg Hydroxide (Mylanta Plus Xs) 15 ml PRN AFTMEALHC PRN PO DYSPEPSIA; Start 06/06/18 at 04:15 Magnesium Hydroxide (Milk Of Magnesia) 2,400 mg PRN QHS PRN PO CONSTIPATION; Start 06/06/18 at 04:15 Amlodipine Besylate (Norvasc) 5 mg DAILY PO Last administered on 06/12/18at 08: 51; Start 06/06/18 at 09:00 Atorvastatin Calcium (Lipitor) 20 mg QHS PO Last administered on 06/13/18 19: 20; Start 06/06/18 at 21:00 Clozapine (Clozaril) 100 mg BID94 PO Last administered on 06/13/18 16:39; Start 06/06/18 at 09:00 Clozapine (Clozaril) 50 mg BID94 PO Last administered on 06/13/18at 16:45; Start 06/06/18 at 09:00 Cyanocobalamin (Vitamin B-12) 1,000 mcg DAILY PO Last administered on at 09:20; Start 06/06/18 at 09:00 Divalproex Sodium (Depakote Er) 1,000 mg QHS PO Last administered on 06/13/18 19:20; Start 06/06/18 at 21:00 Vitamin D (Vitamin D3) 50,000 unit WEEKLY PO Last administered on 06/07/18 07: 43; Start 06/07/18 at 09:00 Estradiol (Estrace) 1 speedy QMTH VG Last administered on 06/08/18at 15:41; Start 06/08/18 at 16:00; Stop 06/08/18 at 21:19; Status DC Furosemide (Lasix) 20 mg DAILY PO Last administered on 06/13/18 09:13; Start 06/06/18 at 09:00 Levothyroxine Sodium (Synthroid) 75 mcg DAILY06 PO Last administered on 09:11; Start 06/06/18 at 06:00 Melatonin 6 mg PRN QHS PRN PO INSOMNIA Last administered on 06/13/18 00:55; Start 06/06/18 at 04:30 Magnesium Hydroxide (Milk Of Magnesia) 2,400 mg PRN DAILY PRN PO CONSTIPATION; Start 06/06/18 at 04:30; Status UNV Polyethylene Glycol (miraLAX) 17 gm DAILY PO Last administered on 06/13/18 09: 14; Start 06/06/18 at 09:00 Prednisolone Acetate (Pred Forte) 1 drop DAILY OD Last administered on 09:12; Start 06/06/18 at 09:00 Artificial Tears (Refresh Classic) 1 drop TID PRN PRN OU DRY EYE; Start at 04:30 Mirtazapine (Remeron) 7.5 mg QHS PO Last administered on 06/13/18 19:19; Start 06/06/18 at 21:00 Trazodone HCl (Desyrel) 100 mg PRN QHS PRN PO INSOMNIA, MAY REPEAT X3 Last administered on 06/13/18 21:34; Start 06/06/18 at 19:00 Olanzapine (ZyPREXA ZYDIS) 5 mg PRN Q2HR PRN PO PSYCHOSIS Last administered on 06/13/18 15:21; Start 06/07/18 at 14:00 Haloperidol (Haldol) 5 mg HS PO ; Start 06/07/18 at 21:00; Stop 06/07/18 at 21: 00; Status DC Haloperidol Lactate (Haldol) 5 mg DAILY IM Last administered on 06/09/18at 07:51 ; Start 06/07/18 at 19:15; Stop 06/09/18 at 09:41; Status DC Estradiol (Estrace) 1 speedy QMTH VG ; Start 06/11/18 at 21:00 Haloperidol Lactate (Haldol) 5 mg 1X ONCE IM Last administered on 06/09/18at 09 :43; Start 06/09/18 at 09:45; Stop 06/09/18 at 09:46; Status DC Haloperidol Lactate (Haldol) 10 mg DAILY IM Last administered on 06/13/18at 09: 12; Start 06/10/18 at 09:00 Hydroxyzine HCl (Atarax) 50 mg 1X ONCE PO Last administered on 06/09/18at 17:26 ; Start 06/09/18 at 17:15; Stop 06/09/18 at 17:24; Status DC Hydroxyzine HCl (Atarax) 50 mg 1X ONCE PO Last administered on 06/09/18at 18:29 ; Start 06/09/18 at 18:25; Stop 06/09/18 at 18:26; Status DC Benztropine Mesylate (Cogentin) 1 mg QHS PO Last administered on 06/13/18at 19: 20; Start 06/10/18 at 21:00 [place] Carbonate 300 mg HS PO Last administered on 06/13/18at 19:20; Start at 21:00 Hydroxyzine HCl (Atarax) 50 mg PRN Q2HR PRN PO SEDATION Last administered on at 18:16; Start 06/11/18 at 15:00 Trazodone HCl (Desyrel) 100 mg PRN 1X PRN PO insomnia Last administered on 06/12 04:16; Start 06/12/18 at 03:15 Lorazepam (Ativan Intensol) 0.5 mg 1X ONCE SL Last administered on 06/13/18at 21:51; Start 06/13/18 at 18:15; Stop 06/13/18 at 18:16; Status DC Active Scripts Active Reported Hydroxyzine Hcl 10 Mg Tablet 10 Mg PO PRN Q2HR PRN Clozapine 100 Mg Tablet 1 Tab PO 1700 Remeron (Mirtazapine) 15 Mg Tablet 1 Tab PO 1700 Depakote Er (Divalproex Sodium) 500 Mg Tab.er.24h 750 Mg PO 1700 Nystatin 15 Gm Powder 1 Speedy TP BID Lidocaine 1 Each Adh..patch 1 Each TP DAILY Lotrimin Af (Clotrimazole) 12 Gm Cream..g. 1 Speedy TP BID PRN Sorbitol (Sorbitol Solution) 1 Ml Solution 30 Ml PO PRN DAILY PRN Trazodone Hcl 50 Mg Tablet 100 Mg PO QHS PRN [place]-128 (Sodium Chloride) 3.5 Gm Oint...g. 1 Speedy OP HS Lipitor (Atorvastatin Calcium) 20 Mg Tablet 20 Mg PO DAILYWSUP Levothyroxine Sodium 75 Mcg Tablet 75 Mcg PO DAILYAC Estrace (Estradiol) 42.5 Gm Cream.appl 1 Speedy VG 2X WEEK Q FRI, Endocet 10-325 Mg Tablet (Oxycodone Hcl/Acetaminophen) 1 Each Tablet 1 Each PO PRN Q6HRS PRN Vitamin B-12 (Cyanocobalamin (Vitamin B-12)) 1,000 Mcg Tablet 1,000 Mcg PO DAILY Maalox Advanced Suspension (Mag Hydrox/Aluminum Hyd/Simeth) 355 Ml Oral.susp 15 Ml PO PRN AFTMEALHC PRN Analgesic [place] (Methyl Salicylate/Menthol) 28 Gm Oint...g. 1 Speedy TP PRN QID PRN Risperidone 1 Mg Tablet 1.5 Mg PO 1700 Refresh Classic Eye Drops (Polyvinyl Alcohol/Povidone/Pf) 1 Each Droperette 1 Each OU TID PRN Trazodone Hcl 50 Mg Tablet 100 Mg PO DAILYWSUP Norvasc (Amlodipine Besylate) 5 Mg Tablet 10 Mg PO DAILY Miralax (Polyethylene Glycol 3350) 17 Gm Powd.pack 17 Gm PO DAILY Milk Of Magnesia (Magnesium Hydroxide) 2,400 Mg/10 Ml Oral.susp 2,400 Mg PO PRN DAILY PRN Tylenol (Acetaminophen) 325 Mg Tablet 650 Mg PO PRN Q6HRS PRN I have reviewed the current psychotropics carefully including drug interactions. Risk benefit ratio favors no change other than as noted in my dictated progress note. 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
--- NOTE | 2018-06-14 04:08 | PN ---
DATE: 06/12/2018 PSYCHIATRIC PROGRESS NOTE This is a late entry of 06/12/2018 covers elements not covered in my initial note. SUBJECTIVE: The patient did not sleep at all the previous night. Nursing staff had called me around 3:00 a.m. as she was extremely agitated, psychotic, aggressive, disruptive. We added PRNs. She has had 400 mg of trazodone in addition to her Clozaril, Haldol IM, and hydroxyzine, nothing really seems to make much of a difference. She remains manic, hyperverbal. Later in the day on 06/12/2017, she seemed to be little better out in the hallway, came out for lunch, had a nap during the day. Previous night, she was disrobing. REVIEW OF SYSTEMS: No CV, , pulmonary, eye, ENT system symptoms on review. Reliability varies. MENTAL STATUS EXAM: Oriented to herself and situation. Speech coherent, rapid at times. Abstraction fair, computation impaired, language function intact. Attention span short. She remains quite manic, grandiose, psychotic and attentive. LABORATORY DATA: Reviewed. IMPRESSION: Bipolar 1 disorder, mixed with psychotic features; anxiety disorder, unspecified. Rest unchanged. PLAN: Continue psychotropics from initial note. We have asked for a pharmacy consult and recommendation coming back due to multiple antipsychotics. She should have an EKG to evaluate her QTC and we will go ahead and do this. Rest unchanged. Adjust lithium to therapeutic level. MAN Rox WATT MD DR: SANCHEZ/fredrick JOB#: [id number] / [id number]
[2018-06-14] MEDS: LEVOTHYROXINE 75 MCG TABLET PO SCH (06:10)
[2018-06-14] MEDS: ACETAMINOPHEN 325 MG TABLET PO PRN (06:10)
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
[2018-06-14 08:18] LABS: BASO % 1 % (0-3); EOS # 0.2 x10^3/uL (0.0-0.7); EOS % 4 % (0-3); HEMATOCRIT 39.3 % (36.0-47.0); HEMOGLOBIN 12.9 g/dL (12.0-15.5); LYMPH # 1.1 x10^3/uL (1.0-4.8); LYMPH % 23 % (24-48); MEAN CORPUSCULAR HEMOGLOBIN 28 pg (25-35); MEAN CORPUSCULAR HGB CONC 33 g/dL (31-37); MEAN CORPUSCULAR VOLUME 87 fL (79-100); MONO # 0.7 x10^3/uL (0.0-1.1); MONO % 15 % (0-9); NEUT # 2.9 x10^3uL (1.8-7.7); NEUT % 58 % (31-73); PLATELET COUNT 237 x10^3/uL (140-400); RED BLOOD COUNT 4.55 x10^6/uL (3.50-5.40); RED CELL DISTRIBUTION WIDTH 15.5 % (11.5-14.5); WHITE BLOOD COUNT 4.9 x10^3/uL (4.0-11.0)
[2018-06-14 08:38] LABS: ALBUMIN 3.4 g/dL (3.4-5.0); ALBUMIN/GLOBULIN RATIO 0.8 (1.0-1.7); CALCIUM 10.8 mg/dL (8.5-10.1); CREATININE 0.9 mg/dL (0.6-1.0); GFR 62.1; POTASSIUM 4.3 mmol/L (3.5-5.1); TOTAL BILIRUBIN 0.4 mg/dL (0.2-1.0); TOTAL PROTEIN 7.8 g/dL (6.4-8.2)
[2018-06-14] MEDS: HALOPERIDOL LACT 5 MG/ML VIAL. IM SCH (08:40)
[2018-06-14] MEDS: CHOLECALCIFEROL (VITAMIN D3) 50,000 UNIT CAPSULE PO SCH (09:00)
[2018-06-14] MEDS: cloZAPine 100 MG TABLET PO SCH ×2 (09:00→16:00)
[2018-06-14] MEDS: POLYETHYLENE GLYCOL 3350 17 GM PACKET. PO SCH (09:00)
[2018-06-14] MEDS: cloZAPine 25 MG TABLET PO SCH ×2 (09:00→16:00)
[2018-06-14] MEDS: prednisoLONE ACETATE 1% OPHTH SUSPENSION 5ML BOTTLE. OD SCH (09:00)
[2018-06-14] MEDS: CYANOCOBALAMIN (VITAMIN B-12) 1,000 MCG TABLET. PO SCH (09:00)
[2018-06-14] MEDS: FUROSEMIDE 20 MG TABLET PO SCH (09:00)
[2018-06-14] MEDS: amLODIPine BESYLATE 5 MG TABLET PO SCH (09:00)
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
--- NOTE | 2018-06-14 12:59 | NUR ---
Dr. Pinzon informed of lithium level. New order to decrease haldol to 5mg and increase lithium to 600mg daily give 300mg in am and 300mg @ HS. CBC, CMP, and lithium level in 3 days.
[2018-06-14 16:15] VITALS: BP 120/75
--- NOTE | 2018-06-14 18:20 | NUR ---
Prior to dinner pt demanded to be moved to room 229. Staff reminded pt she cannot demand things. Pt continued to demand to be moved, nurse redirected pt. After dinner pt refused to leave dining room. 2 staff members assisted pt to leave the dining room. Pt yelled "don't fucking touch me!" Pt refused to leave and placed herself on the floor. Staff removed pt and placed her in the hallway.
[2018-06-14] MEDS: DIVALPROEX ER 500 MG TAB.ER.24H PO SCH (22:13)
[2018-06-14] MEDS: ATORVASTATIN CALCIUM 20 MG TABLET PO SCH (22:14)
[2018-06-14] MEDS: MIRTAZAPINE 7.5 MG TABLET. PO SCH (22:14)
[2018-06-14] MEDS: BENZTROPINE MESYLATE 1 MG TABLET PO SCH (22:14)
[2018-06-14] MEDS: traZODone 100 MG TABLET. PO PRN (22:14)
[2018-06-14] MEDS: LITHIUM CARBONATE 300 MG TABLET PO SCH (22:14)
--- NOTE | 2018-06-14 23:00 | PDOC ---
Exam Note: Julian Note: Please also refer to the separate dictated note~for this date of service dictated separately.~Patient seen individually. Discussed the patient with Nursing staff reviewed the chart.~Reviewed interim history and current functioning. Reviewed vital signs,~Labs/ Radiology~and current medications noted below. Continue current treatment with the changes noted in the dictated addendum note Assessment: Vital Signs: Vital Signs Date Time Temp Pulse Resp B/P (MAP) Pulse Ox O2 Delivery O2 Flow Rate FiO2 06/14/18 16:15 99.1 90 20 120/75 (90) 95 06/12/18 16:53 Room Air I&O Intake and Output 06/14/18 07:01 Intake Total 240 ml Balance 240 ml Intake Oral 240 ml Labs: Laboratory Tests Test 06/14/18 08:00 06/14/18 08:27 White Blood Count 4.9 x10^3/uL (4.0-11.0) Red Blood Count 4.55 x10^6/uL (3.50-5.40) Hemoglobin 12.9 g/dL (12.0-15.5) Hematocrit 39.3 % (36.0-47.0) Mean Corpuscular Volume 87 fL (79-100) Mean Corpuscular Hemoglobin 28 pg (25-35) Mean Corpuscular Hemoglobin Concent 33 g/dL (31-37) Red Cell Distribution Width 15.5 % (11.5-14.5) H Platelet Count 237 x10^3/uL (140-400) Neutrophils (%) (Auto) 58 % (31-73) Lymphocytes (%) (Auto) 23 % (24-48) L Monocytes (%) (Auto) 15 % (0-9) H Eosinophils (%) (Auto) 4 % (0-3) H Basophils (%) (Auto) 1 % (0-3) Neutrophils # (Auto) 2.9 x10^3uL (1.8-7.7) Lymphocytes # (Auto) 1.1 x10^3/uL (1.0-4.8) Monocytes # (Auto) 0.7 x10^3/uL (0.0-1.1) Eosinophils # (Auto) 0.2 x10^3/uL (0.0-0.7) Basophils # (Auto) 0.0 x10^3/uL (0.0-0.2) Sodium Level 141 mmol/L (136-145) Potassium Level 4.3 mmol/L (3.5-5.1) Chloride Level 105 mmol/L (98-107) Carbon Dioxide Level 29 mmol/L (21-32) Anion Gap 7 (6-14) Blood Urea Nitrogen 15 mg/dL (7-20) Creatinine 0.9 mg/dL (0.6-1.0) Estimated GFR (Cockcroft-Gault) 62.1 BUN/Creatinine Ratio 17 (6-20) Glucose Level 113 mg/dL (70-99) H Calcium Level 10.8 mg/dL (8.5-10.1) H Total Bilirubin 0.4 mg/dL (0.2-1.0) Aspartate Amino Transferase (AST) 66 U/L (15-37) H Alanine Aminotransferase (ALT) 41 U/L (14-59) Alkaline Phosphatase 104 U/L (46-116) Total Protein 7.8 g/dL (6.4-8.2) Albumin 3.4 g/dL (3.4-5.0) Albumin/Globulin Ratio 0.8 (1.0-1.7) L [place] Level 0.4 mmol/L (0.6-1.2) L [place] Last Dose Date Unknown [place] Last Dose Time Unknown Current Medications: Meds: Current Medications Acetaminophen (Tylenol) 650 mg PRN Q6HRS PRN PO PAIN / TEMP Last administered on 06/14/18at 06:10; Start 06/06/18 at 04:15 Multi-Ingredient Ointment (Analgesic [place]) 1 speedy PRN QID PRN TP MUSCLE PAIN Last administered on 06/07/18at 22:53; Start 06/06/18 at 04:15 Al Hydroxide/Mg Hydroxide (Mylanta Plus Xs) 15 ml PRN AFTMEALHC PRN PO DYSPEPSIA; Start 06/06/18 at 04:15 Magnesium Hydroxide (Milk Of Magnesia) 2,400 mg PRN QHS PRN PO CONSTIPATION; Start 06/06/18 at 04:15 Amlodipine Besylate (Norvasc) 5 mg DAILY PO Last administered on 06/12/18at 08: 51; Start 06/06/18 at 09:00 Atorvastatin Calcium (Lipitor) 20 mg QHS PO Last administered on 06/14/18 22: 14; Start 06/06/18 at 21:00 Clozapine (Clozaril) 100 mg BID94 PO Last administered on 06/13/18 16:39; Start 06/06/18 at 09:00 Clozapine (Clozaril) 50 mg BID94 PO Last administered on 06/13/18 16:45; Start 06/06/18 at 09:00 Cyanocobalamin (Vitamin B-12) 1,000 mcg DAILY PO Last administered on 09:20; Start 06/06/18 at 09:00 Divalproex Sodium (Depakote Er) 1,000 mg QHS PO Last administered on 06/14/18 22:13; Start 06/06/18 at 21:00 Vitamin D (Vitamin D3) 50,000 unit WEEKLY PO Last administered on 06/07/18 07: 43; Start 06/07/18 at 09:00 Estradiol (Estrace) 1 speedy QMTH VG Last administered on 06/08/18 15:41; Start 06/08/18 at 16:00; Stop 06/08/18 at 21:19; Status DC Furosemide (Lasix) 20 mg DAILY PO Last administered on 06/13/18 09:13; Start 06/06/18 at 09:00 Levothyroxine Sodium (Synthroid) 75 mcg DAILY06 PO Last administered on 06:10; Start 06/06/18 at 06:00 Melatonin 6 mg PRN QHS PRN PO INSOMNIA Last administered on 06/13/18 22:23; Start 06/06/18 at 04:30 Magnesium Hydroxide (Milk Of Magnesia) 2,400 mg PRN DAILY PRN PO CONSTIPATION; Start 06/06/18 at 04:30; Status UNV Polyethylene Glycol (miraLAX) 17 gm DAILY PO Last administered on 06/13/18 09: 14; Start 06/06/18 at 09:00 Prednisolone Acetate (Pred Forte) 1 drop DAILY OD Last administered on 09:12; Start 06/06/18 at 09:00 Artificial Tears (Refresh Classic) 1 drop TID PRN PRN OU DRY EYE; Start at 04:30 Mirtazapine (Remeron) 7.5 mg QHS PO Last administered on 06/14/18at 22:14; Start 06/06/18 at 21:00 Trazodone HCl (Desyrel) 100 mg PRN QHS PRN PO INSOMNIA, MAY REPEAT X3 Last administered on 06/14/18at 22:14; Start 06/06/18 at 19:00 Olanzapine (ZyPREXA ZYDIS) 5 mg PRN Q2HR PRN PO PSYCHOSIS Last administered on 06/13/18at 15:21; Start 06/07/18 at 14:00 Haloperidol (Haldol) 5 mg HS PO ; Start 06/07/18 at 21:00; Stop 06/07/18 at 21: 00; Status DC Haloperidol Lactate (Haldol) 5 mg DAILY IM Last administered on 06/09/18at 07:51 ; Start 06/07/18 at 19:15; Stop 06/09/18 at 09:41; Status DC Estradiol (Estrace) 1 speedy QMTH VG ; Start 06/11/18 at 21:00 Haloperidol Lactate (Haldol) 5 mg 1X ONCE IM Last administered on 06/09/18at 09 :43; Start 06/09/18 at 09:45; Stop 06/09/18 at 09:46; Status DC Haloperidol Lactate (Haldol) 10 mg DAILY IM Last administered on 06/14/18at 08: 40; Start 06/10/18 at 09:00; Stop 06/14/18 at 13:06; Status DC Hydroxyzine HCl (Atarax) 50 mg 1X ONCE PO Last administered on 06/09/18at 17:26 ; Start 06/09/18 at 17:15; Stop 06/09/18 at 17:24; Status DC Hydroxyzine HCl (Atarax) 50 mg 1X ONCE PO Last administered on 06/09/18at 18:29 ; Start 06/09/18 at 18:25; Stop 06/09/18 at 18:26; Status DC Benztropine Mesylate (Cogentin) 1 mg QHS PO Last administered on 06/14/18at 22: 14; Start 06/10/18 at 21:00 [place] Carbonate 300 mg HS PO Last administered on 06/13/18at 19:20; Start at 21:00; Stop 06/14/18 at 13:06; Status DC Hydroxyzine HCl (Atarax) 50 mg PRN Q2HR PRN PO SEDATION Last administered on at 22:25; Start 06/11/18 at 15:00 Trazodone HCl (Desyrel) 100 mg PRN 1X PRN PO insomnia Last administered on 06/12at 04:16; Start 06/12/18 at 03:15 Lorazepam (Ativan Intensol) 0.5 mg 1X ONCE SL Last administered on 06/13/18at 21:51; Start 06/13/18 at 18:15; Stop 06/13/18 at 18:16; Status DC Lorazepam (Ativan) 1 mg DAILY IM Last administered on 06/14/18at 09:54; Start at 09:50 Haloperidol Lactate (Haldol) 5 mg DAILY IM ; Start 06/15/18 at 09:00 [place] Carbonate 300 mg BID PO Last administered on 06/14/18at 22:14; Start at 21:00 Active Scripts Active Reported Hydroxyzine Hcl 10 Mg Tablet 10 Mg PO PRN Q2HR PRN Clozapine 100 Mg Tablet 1 Tab PO 1700 Remeron (Mirtazapine) 15 Mg Tablet 1 Tab PO 1700 Depakote Er (Divalproex Sodium) 500 Mg Tab.er.24h 750 Mg PO 1700 Nystatin 15 Gm Powder 1 Speedy TP BID Lidocaine 1 Each Adh..patch 1 Each TP DAILY Lotrimin Af (Clotrimazole) 12 Gm Cream..g. 1 Speedy TP BID PRN Sorbitol (Sorbitol Solution) 1 Ml Solution 30 Ml PO PRN DAILY PRN Trazodone Hcl 50 Mg Tablet 100 Mg PO QHS PRN [place]-128 (Sodium Chloride) 3.5 Gm Oint...g. 1 Speedy OP HS Lipitor (Atorvastatin Calcium) 20 Mg Tablet 20 Mg PO DAILYWSUP Levothyroxine Sodium 75 Mcg Tablet 75 Mcg PO DAILYAC Estrace (Estradiol) 42.5 Gm Cream.appl 1 Speedy VG 2X WEEK Q MON, TH Endocet 10-325 Mg Tablet (Oxycodone Hcl/Acetaminophen) 1 Each Tablet 1 Each PO PRN Q6HRS PRN Vitamin B-12 (Cyanocobalamin (Vitamin B-12)) 1,000 Mcg Tablet 1,000 Mcg PO DAILY Maalox Advanced Suspension (Mag Hydrox/Aluminum Hyd/Simeth) 355 Ml Oral.susp 15 Ml PO PRN AFTMEALHC PRN Analgesic [place] (Methyl Salicylate/Menthol) 28 Gm Oint...g. 1 Speedy TP PRN QID PRN Risperidone 1 Mg Tablet 1.5 Mg PO 1700 Refresh Classic Eye Drops (Polyvinyl Alcohol/Povidone/Pf) 1 Each Droperette 1 Each OU TID PRN Trazodone Hcl 50 Mg Tablet 100 Mg PO DAILYWSUP Norvasc (Amlodipine Besylate) 5 Mg Tablet 10 Mg PO DAILY Miralax (Polyethylene Glycol 3350) 17 Gm Powd.pack 17 Gm PO DAILY Milk Of Magnesia (Magnesium Hydroxide) 2,400 Mg/10 Ml Oral.susp 2,400 Mg PO PRN DAILY PRN Tylenol (Acetaminophen) 325 Mg Tablet 650 Mg PO PRN Q6HRS PRN I have reviewed the current psychotropics carefully including drug interactions. Risk benefit ratio favors no change other than as noted in my dictated progress note. 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
--- NOTE | 2018-06-15 00:17 | NUR ---
Patient was asleep at shift change. At 2200 nurse woke patient up for HS meds. Patient was compliant with HS meds and then laid back down. Patient walked down the nelson to the day room about 15 minutes later, where patient laid on the couch and fell back asleep.
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
[2018-06-15] MEDS: traZODone 100 MG TABLET. PO PRN ×2 (01:34→21:23)
--- NOTE | 2018-06-15 01:42 | NUR ---
Pulled 2nd trazodone but patient was already asleep when nurse entered room.
[2018-06-15 06:12] VITALS: BP 120/70
[2018-06-15] MEDS: LEVOTHYROXINE 75 MCG TABLET PO SCH (07:44)
[2018-06-15] MEDS: POLYETHYLENE GLYCOL 3350 17 GM PACKET. PO SCH (07:44)
[2018-06-15] MEDS: CYANOCOBALAMIN (VITAMIN B-12) 1,000 MCG TABLET. PO SCH (07:44)
[2018-06-15] MEDS: CHOLECALCIFEROL (VITAMIN D3) 50,000 UNIT CAPSULE PO SCH (07:44)
[2018-06-15] MEDS: cloZAPine 100 MG TABLET PO SCH ×2 (07:44→17:45)
[2018-06-15] MEDS: cloZAPine 25 MG TABLET PO SCH ×2 (07:44→17:45)
[2018-06-15] MEDS: FUROSEMIDE 20 MG TABLET PO SCH (07:44)
[2018-06-15] MEDS: prednisoLONE ACETATE 1% OPHTH SUSPENSION 5ML BOTTLE. OD SCH (07:45)
[2018-06-15] MEDS: amLODIPine BESYLATE 5 MG TABLET PO SCH (07:47)
[2018-06-15] MEDS: HALOPERIDOL LACT 5 MG/ML VIAL. IM SCH ×2 (09:00→18:38)
[2018-06-15] MEDS: LITHIUM CARBONATE 300 MG TABLET PO SCH ×3 (09:05→21:27)
--- NOTE | 2018-06-15 09:11 | NUR ---
This morning before breakfast pt went up to a pt who is deaf and signed to her "youre a bitch" and "you're fat." Staff pts and this pt was moved to the opposite side of the room. While on the opposite side of the room she began to kick a WOW, staff asked pt to leave the dining room. When pt left the dining room she grabbed a rolling cart and attempted to take it with her. Staff told the pt she cannot have the cart as it is for staff use only. Pt then sat in the hallway with a blanket on her head. Pt then went to her room and slammed her door. Nurse approached pt and offered her her am medications which she refused at first. During this conversations pt put her underwear around her neck like a scarf, nurse asked pt to remove it, pt stated "I can wear my underwear like that if I want." nurse educated pt that that was not safe and she may not wear her underwear like that, pt removed underwear from her neck. Pt was wandering her room stating her medication was not hers even when nurse assured her it was hers she dumped her medication on her bed and pushed it away and then layed on the other bed in her room. PLATE GRAINER APPRENTICE entered room and encouraged pt to get dressed and take her medication which pt did. Pt then hit nurse. Staff redirected pt. Staff assisted pt in getting dressed, during this time pt tried to hit and kick staff. Pt later attended breakfast but threw her tray when she was redirected not to demand things after staff gave her what she asked for such as skim milk. Pt then was using sign language to sign inappropriate things to a deaf pt such as "bitch" and "youre fat." Staff escorted pt to [facility] for deescalation as she would not leave the dining room. While over in the [facility] she kicked the window to the nurses station, pace, hit the doors and windows. She put a blanket around her neck like a scarf and then removed it when staff asked her. She tried to throw the same blanket over the window into the nurses station. She would continue to lay on the floor and kick the window to the nurses station. Staff asked her multiple times to stop as it is not safe pt stated "no!" 2 staff members had to move her away from the window and while doing this pt hit and kicked nurse and PLATE GRAINER APPRENTICE. Nurse offered pt her new increased dose of lithium pt threw it at nurse and stated "lithium is a capsule. This isn't a capsule." Nurse went back to the nurse station. Pt began to hit and kick the windows in the quiet room. She hit the thermostat cover in the quiet room. Scheduled Ativan given.
--- NOTE | 2018-06-15 10:50 | NUR ---
SECONDARY SPECIAL EDUCATION TEACHER heard pt crying in [facility], SECONDARY SPECIAL EDUCATION TEACHER offered pt shower and assisted pt standing position. Pt then sat on the floor and SECONDARY SPECIAL EDUCATION TEACHER went to get a WC. When SECONDARY SPECIAL EDUCATION TEACHER came back pt had urinated on the herself. Staff assisted pt to the WC and to the shower. While in the shower pt attempted to get out of the shower chair and spit at a SECONDARY SPECIAL EDUCATION TEACHER. 4 staff members assisted with pts shower. Pt was placed back in the [facility] for safety. She is currently laying on a mattress resting.
--- NOTE | 2018-06-15 11:06 | NUR ---
ROSALINE returned call to Kamala, pat at [facility], and was placed in speaker so that [place], their clinical SW could hear and update. ROSALINE informed both parties that pt is very manic and displaying a lot of aggressive behaviors (e.g. hitting, kicking, yelling obscenities etc). Pt has been placed multiple times in the quiet hallway due to her behaviors and that residents are afraid of pt. ROSALINE went over the phone conversations had with pt luz mariarAva and that a level II screening has already been initiated. Kamala and the team at [facility] agreed that they have just reached a point where pt behaviors are no longer manageable and needs extra care. ROSALINE will continue to make sure [facility] is up to date on pt behavior and placement.
[2018-06-15] MEDS: hydrOXYzine HCL 25 MG TABLET PO PRN (12:55)
--- NOTE | 2018-06-15 13:09 | NUR ---
Pt was in quiet room and removed her top to sleep. After she got up from her nap she urinated on herself and then rolled around in it while yelling and screaming. X 5 Staff changed pts brief and clothing. Pt was put in a onesie. During this time pt was combative-hitting staff, biting, kicking. She was yelling out "ahhhhh!" calling staff "bitches!" Pt then paced the nelson hitting the doors and kicking the window. Pt took am lithium and PRN atarax. She placed herself on the floor and was rolling around nurse offered pt lunch, pt declined. Nurse asked pt what could she do to help pt gain control of herself pt stated "nothing." and spit on the floor then wiped it up with her hand.
[2018-06-15] MEDS: ESTRADIOL 0.01% VAGINAL CREAM 42.5GM TUBE. VG SCH (16:00)
--- NOTE | 2018-06-15 17:35 | NUR ---
1610: Pt requested to use the restroom. 2 staff members attempted to assist pt, pt became combative and resistive refusing to stand, hitting at staff yelling "don't fucking touch me!" When staff attempted to toilet pt, pt tried to stick her head in the toilet then tried to put her feet in the toilet. Staff called for assistance and 2 more staff members came to help. While attempting to toilet pt, pt hit and kicked staff and spit in nurses face. Pt also yelled and called staff "bitches." After pts brief and clothing were changed pt was then escorted to mattress for safety where she yelled out you are all "faggots!" Pt then continued to lay on the floor and roll around and yell and grunt. 1720: [facility], pt has refused every other meal of the day.
--- NOTE | 2018-06-15 18:14 | NUR ---
Pt was sitting on the floor of the [facility]. Nurse offered 1600 mediation. Medication was offered late as pt was highly agitated around 1600. Pt was offered medication with strawberry boost. Pt refused medication multiple times and declined. Pt then took the boost from nurse took a drink and threw some of the boost at nurse. She then took a drink and spit it on the floor. Pt continued to refused her medication.
--- NOTE | 2018-06-15 19:56 | NUR ---
Patient in [facility], asked for a glass of water and thew glass of ice water onto the floor. She then went into the seclusion room and slammed the door into the wall until there was a bigger hole in the wall behind the door. Patient removed from seclusion room by staff x3 because she was resistive. Seclusion room door closed. Patient now rolling on the floor of the [facility] and making grunting noises. Denies pain when asked and called nurse "bitch".
[2018-06-15] MEDS: ATORVASTATIN CALCIUM 20 MG TABLET PO SCH (21:22)
[2018-06-15] MEDS: BENZTROPINE MESYLATE 1 MG TABLET PO SCH (21:22)
[2018-06-15] MEDS: MIRTAZAPINE 7.5 MG TABLET. PO SCH (21:22)
[2018-06-15] MEDS: DIVALPROEX ER 500 MG TAB.ER.24H PO SCH (21:23)
--- NOTE | 2018-06-15 21:45 | NUR ---
Patient given PRN trazodone 100mg for sleep along with HS meds. Addendum: 06/16/18 at 0238 by NASREEN MONROE RN Trazodone not effective.
--- NOTE | 2018-06-15 22:48 | PN ---
DATE: 06/14/2018 This is a late entry for 06/14/2018 covers elements not covered in my initial note. SUBJECTIVE: I met with the patient in the evening and I have had several telephone calls from nursing staff due to the patient's agitation, marked mood lability, psychosis, yelling, screaming, hitting, kicking, refusing all oral medications, was in the [facility] in the morning x 2, continues on IM Haldol scheduled since that is the only route that is efficacious for her. Nursing staff has talked with her daughter, Ava and at length about benzodiazepines. No specific history of allergic reaction was shared by them and they felt, specifically, Ava that the patient was somewhat more euphoric on Ativan and that is the reason it might have been listed as an allergy. We have gone ahead and used oral Ativan. She has had no allergic reaction and we are starting the IM scheduled with the hope that we will be stopping the IM Haldol since the lithium has been increased from 300 mg a day to 600 mg a day since initial level was subtherapeutic at 0.4. REVIEW OF SYSTEMS: No CV, , pulmonary, eye, ENT system symptoms on review. She has vague somatic symptoms. MENTAL STATUS EXAM: Oriented to herself and situation. Speech coherent, rapid at times. Abstraction fair, computation impaired, language function intact, attention span short. Mood and affect remains extremely labile and she is psychotic. LABORATORY DATA: Reviewed. IMPRESSION: Bipolar 1 disorder, mixed with psychotic features; anxiety disorder, unspecified; schizoaffective disorder, bipolar type, mixed with psychotic features. PLAN: Increase the lithium as noted. Continue Depakote along with Clozaril. May consider stopping the Haldol IM, but for now, we will reduce it down from 10 mg daily down to 5 mg a day and start Ativan IM scheduled 1 mg a day. Rest unchanged from initial note. KIERSTEN WATT MD DR: SANCHEZ/fredrick JOB#: [id number] / [id number]
--- NOTE | 2018-06-15 22:56 | PDOC ---
Exam Note: Julian Note: Please also refer to the separate dictated note~for this date of service dictated separately.~Patient seen individually. Discussed the patient with Nursing staff reviewed the chart.~Reviewed interim history and current functioning. Reviewed vital signs,~Labs/ Radiology~and current medications noted below. Continue current treatment with the changes noted in the dictated addendum note Assessment: Vital Signs: Vital Signs Date Time Temp Pulse Resp B/P (MAP) Pulse Ox O2 Delivery O2 Flow Rate FiO2 06/15/18 15:46 98.9 102 22 96 06/15/18 07:47 120/70 06/15/18 06:12 Room Air I&O Intake and Output 06/15/18 07:01 Intake Total 720 ml Balance 720 ml Intake Oral 720 ml Current Medications: Meds: Current Medications Acetaminophen (Tylenol) 650 mg PRN Q6HRS PRN PO PAIN / TEMP Last administered on 06/14/18at 06:10; Start 06/06/18 at 04:15 Multi-Ingredient Ointment (Analgesic Denton) 1 speedy PRN QID PRN TP MUSCLE PAIN Last administered on 06/07/18at 22:53; Start 06/06/18 at 04:15 Al Hydroxide/Mg Hydroxide (Mylanta Plus Xs) 15 ml PRN AFTMEALHC PRN PO DYSPEPSIA; Start 06/06/18 at 04:15 Magnesium Hydroxide (Milk Of Magnesia) 2,400 mg PRN QHS PRN PO CONSTIPATION; Start 06/06/18 at 04:15 Amlodipine Besylate (Norvasc) 5 mg DAILY PO Last administered on 06/15/18at 07: 47; Start 06/06/18 at 09:00 Atorvastatin Calcium (Lipitor) 20 mg QHS PO Last administered on 06/15/18at 21: 22; Start 06/06/18 at 21:00 Clozapine (Clozaril) 100 mg BID94 PO Last administered on 06/15/18at 07:44; Start 06/06/18 at 09:00; Stop 06/15/18 at 18:36; Status DC Clozapine (Clozaril) 50 mg BID94 PO Last administered on 06/15/18at 07:44; Start 06/06/18 at 09:00; Stop 06/15/18 at 18:36; Status DC Cyanocobalamin (Vitamin B-12) 1,000 mcg DAILY PO Last administered on 07:44; Start 06/06/18 at 09:00 Divalproex Sodium (Depakote Er) 1,000 mg QHS PO Last administered on 06/15/18 21:23; Start 06/06/18 at 21:00 Vitamin D (Vitamin D3) 50,000 unit WEEKLY PO Last administered on 06/15/18 07: 44; Start 06/07/18 at 09:00 Estradiol (Estrace) 1 speedy QMTH VG Last administered on 06/08/18 15:41; Start 06/08/18 at 16:00; Stop 06/08/18 at 21:19; Status DC Furosemide (Lasix) 20 mg DAILY PO Last administered on 06/15/18 07:44; Start 06/06/18 at 09:00 Levothyroxine Sodium (Synthroid) 75 mcg DAILY06 PO Last administered on 07:44; Start 06/06/18 at 06:00 Melatonin 6 mg PRN QHS PRN PO INSOMNIA Last administered on 06/13/18 22:23; Start 06/06/18 at 04:30 Magnesium Hydroxide (Milk Of Magnesia) 2,400 mg PRN DAILY PRN PO CONSTIPATION; Start 06/06/18 at 04:30; Status UNV Polyethylene Glycol (miraLAX) 17 gm DAILY PO Last administered on 06/15/18 07: 44; Start 06/06/18 at 09:00 Prednisolone Acetate (Pred Forte) 1 drop DAILY OD Last administered on 07:45; Start 06/06/18 at 09:00 Artificial Tears (Refresh Classic) 1 drop TID PRN PRN OU DRY EYE; Start at 04:30 Mirtazapine (Remeron) 7.5 mg QHS PO Last administered on 06/15/18 21:22; Start 06/06/18 at 21:00 Trazodone HCl (Desyrel) 100 mg PRN QHS PRN PO INSOMNIA, MAY REPEAT X3 Last administered on 06/15/18 21:23; Start 06/06/18 at 19:00 Olanzapine (ZyPREXA ZYDIS) 5 mg PRN Q2HR PRN PO PSYCHOSIS Last administered on 1/26/19at 15:21; Start 06/07/18 at 14:00 Haloperidol (Haldol) 5 mg HS PO ; Start 06/07/18 at 21:00; Stop 06/07/18 at 21: 00; Status DC Haloperidol Lactate (Haldol) 5 mg DAILY IM Last administered on 06/09/18at 07:51 ; Start 06/07/18 at 19:15; Stop 06/09/18 at 09:41; Status DC Estradiol (Estrace) 1 speedy QMTH VG ; Start 06/11/18 at 21:00 Haloperidol Lactate (Haldol) 5 mg 1X ONCE IM Last administered on 06/09/18at 09 :43; Start 06/09/18 at 09:45; Stop 06/09/18 at 09:46; Status DC Haloperidol Lactate (Haldol) 10 mg DAILY IM Last administered on 06/14/18at 08: 40; Start 06/10/18 at 09:00; Stop 06/14/18 at 13:06; Status DC Hydroxyzine HCl (Atarax) 50 mg 1X ONCE PO Last administered on 06/09/18at 17:26 ; Start 06/09/18 at 17:15; Stop 06/09/18 at 17:24; Status DC Hydroxyzine HCl (Atarax) 50 mg 1X ONCE PO Last administered on 06/09/18at 18:29 ; Start 06/09/18 at 18:25; Stop 06/09/18 at 18:26; Status DC Benztropine Mesylate (Cogentin) 1 mg QHS PO Last administered on 06/15/18at 21: 22; Start 06/10/18 at 21:00 [place] Carbonate 300 mg HS PO Last administered on 06/13/18at 19:20; Start at 21:00; Stop 06/14/18 at 13:06; Status DC Hydroxyzine HCl (Atarax) 50 mg PRN Q2HR PRN PO SEDATION Last administered on at 12:55; Start 06/11/18 at 15:00 Trazodone HCl (Desyrel) 100 mg PRN 1X PRN PO insomnia Last administered on 06/12at 04:16; Start 06/12/18 at 03:15 Lorazepam (Ativan Intensol) 0.5 mg 1X ONCE SL Last administered on 06/13/18at 21:51; Start 06/13/18 at 18:15; Stop 06/13/18 at 18:16; Status DC Lorazepam (Ativan) 1 mg DAILY IM Last administered on 06/15/18at 09:02; Start at 09:50 Haloperidol Lactate (Haldol) 5 mg DAILY IM Last administered on 06/15/18at 18:38 ; Start 06/15/18 at 09:00 [place] Carbonate 300 mg BID PO Last administered on 06/15/18at 21:27; Start at 21:00 Clozapine (Clozaril) 300 mg DAILY PO ; Start 06/16/18 at 09:00 Clozapine (Clozaril) 25 mg DAILY PO ; Start 06/16/18 at 09:00 Active Scripts Active Reported Hydroxyzine Hcl 10 Mg Tablet 10 Mg PO PRN Q2HR PRN Clozapine 100 Mg Tablet 1 Tab PO 1700 Remeron (Mirtazapine) 15 Mg Tablet 1 Tab PO 1700 Depakote Er (Divalproex Sodium) 500 Mg Tab.er.24h 750 Mg PO 1700 Nystatin 15 Gm Powder 1 Speedy TP BID Lidocaine 1 Each Adh..patch 1 Each TP DAILY Lotrimin Af (Clotrimazole) 12 Gm Cream..g. 1 Speedy TP BID PRN Sorbitol (Sorbitol Solution) 1 Ml Solution 30 Ml PO PRN DAILY PRN Trazodone Hcl 50 Mg Tablet 100 Mg PO QHS PRN Elmer-128 (Sodium Chloride) 3.5 Gm Oint...g. 1 Speedy OP HS Lipitor (Atorvastatin Calcium) 20 Mg Tablet 20 Mg PO DAILYWSUP Levothyroxine Sodium 75 Mcg Tablet 75 Mcg PO DAILYAC Estrace (Estradiol) 42.5 Gm Cream.appl 1 Speedy VG 2X WEEK Q MON, THURS Endocet 10-325 Mg Tablet (Oxycodone Hcl/Acetaminophen) 1 Each Tablet 1 Each PO PRN Q6HRS PRN Vitamin B-12 (Cyanocobalamin (Vitamin B-12)) 1,000 Mcg Tablet 1,000 Mcg PO DAILY Maalox Advanced Suspension (Mag Hydrox/Aluminum Hyd/Simeth) 355 Ml Oral.susp 15 Ml PO PRN AFTMEALHC PRN Analgesic Denton (Methyl Salicylate/Menthol) 28 Gm Oint...g. 1 Speedy TP PRN QID PRN Risperidone 1 Mg Tablet 1.5 Mg PO 1700 Refresh Classic Eye Drops (Polyvinyl Alcohol/Povidone/Pf) 1 Each Droperette 1 Each OU TID PRN Trazodone Hcl 50 Mg Tablet 100 Mg PO DAILYWSUP Norvasc (Amlodipine Besylate) 5 Mg Tablet 10 Mg PO DAILY Miralax (Polyethylene Glycol 3350) 17 Gm Powd.pack 17 Gm PO DAILY Milk Of Magnesia (Magnesium Hydroxide) 2,400 Mg/10 Ml Oral.susp 2,400 Mg PO PRN DAILY PRN Tylenol (Acetaminophen) 325 Mg Tablet 650 Mg PO PRN Q6HRS PRN I have reviewed the current psychotropics carefully including drug interactions. Risk benefit ratio favors no change other than as noted in my dictated progress note. 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
--- NOTE | 2018-06-16 00:28 | NUR ---
Patient has been attention seeking and behaving badly for most of the night. She took the onesie she was wearing off in the [facility] and was log rolling down the hallway naked. Nurse got blanket to cover her and assist her to her room to get clothes on, she refused to dress demanding to have her toenails and fingernails painted and to take a bath. She continued to refuse to put clothes on (and leave them on) so [facility] where she urinated on the floor multiple times, putting pillow between her legs and was yelling to call attention to herself. Nurse attempted multiple times to allow patient to be out of hallway but she was intrusive into others rooms, stripping her clothes off in the hallways and walking around naked. [facility] she beats on the windows and yells insults to staff. She rattled the door to the dayroom and disturbed patients that were watching movie. She yells and cat calls through the crack in the door to male patients. She has dumped multiple glasses of water on the floor, and was resistive with her HS meds. She eventually pounded on the door to get nurses attention and asked for her meds. She took them whole. She has continued to yell "bitch, hey bitch" and other rude things to nurse.
--- NOTE | 2018-06-16 02:34 | NUR ---
Nurse was finally able to get patient to her room to lay down in the bed. She had been laying on the floor in the [facility] yelling that she was cold. She insisted that she needed a walker to get to her room. She is currently in her room yelling that she wants her nails painted right now and that she is cold. If she continues to yell out and disrupt others she will be returned to the [facility] to sleep on the mattress in the quiet room with the door opened. Addendum: 06/16/18 at 0353 by NASREEN MONROE RN Patient was yelling in her room and in the hallway and entering other patients room. She was escorted back to the [facility].
--- NOTE | 2018-06-16 03:48 | NUR ---
Patient remains in [facility], yelling and cursing at staff. She has torn her green pajamas and is refusing to wear a brief. She continues to pound on and rattle the doors and pounds on the windows. She is still yelling that she wants to go to her room. When we tried multiple times to take her to her room, she was intrusive and her yelling disturbs the other patients.
[2018-06-16] MEDS: LEVOTHYROXINE 75 MCG TABLET PO SCH (05:02)
[2018-06-16 06:37] VITALS: BP 163/89
--- NOTE | 2018-06-16 06:55 | NUR ---
Patient finally laid down in her room at 0632.
--- NOTE | 2018-06-16 07:00 | PN ---
DATE: 06/13/2018 This is a late entry for 06/13/2018 covers elements not covered in my initial note. SUBJECTIVE: I met with the patient in the evening. The patient slept 4 hours previous night. Nursing staff had called me several times during the day. The patient has been extremely agitated, restless, yelling, screaming, labile, psychotic. REVIEW OF SYSTEMS: No CV, , eye, ENT or pulmonary system symptoms on review. MENTAL STATUS EXAM: Oriented to herself and situation. Speech coherent, rapid at times. Abstraction fair, computation impaired, language function intact, attention span short. Mood and affect remains labile. Remains psychotic. LABORATORY DATA: Reviewed. IMPRESSION: Bipolar 1 disorder, mixed with psychotic features; anxiety disorder, unspecified. Rest unchanged from initial note. PLAN: Continue psychotropics from initial note. We will gently consider using Ativan, even though she has an ALLERGY TO BENZODIAZEPINE, does not feel there was any physical allergic reaction, but rather she felt a little euphoric and daughter, Ava, confirms this. No further change from initial note. We will gradually increase the Clozaril further and reduce the Haldol IM as we adjust the lithium to a therapeutic level. KIERSTEN WATT MD DR: SANCHEZ/fredrick JOB#: [id number] / [id number]
[2018-06-16] MEDS: prednisoLONE ACETATE 1% OPHTH SUSPENSION 5ML BOTTLE. OD SCH (09:00)
[2018-06-16] MEDS: LITHIUM CARBONATE 300 MG TABLET PO SCH ×2 (09:53→20:07)
[2018-06-16] MEDS: CYANOCOBALAMIN (VITAMIN B-12) 1,000 MCG TABLET. PO SCH (09:54)
[2018-06-16] MEDS: HALOPERIDOL LACT 5 MG/ML VIAL. IM SCH (09:54)
[2018-06-16] MEDS: FUROSEMIDE 20 MG TABLET PO SCH (09:54)
[2018-06-16] MEDS: amLODIPine BESYLATE 5 MG TABLET PO SCH (09:54)
[2018-06-16] MEDS: cloZAPine 100 MG TABLET PO SCH (09:56)
[2018-06-16] MEDS: cloZAPine 25 MG TABLET PO SCH (09:56)
[2018-06-16] MEDS: POLYETHYLENE GLYCOL 3350 17 GM PACKET. PO SCH (10:00)
--- NOTE | 2018-06-16 14:07 | NUR ---
Behavior Intervention Response and Plan: BIRP Note: Behavior: Assumed Care of patient, patient located in Hallway at shift change. Patient exhibited the following behavior Restless, Compulsive, Demanding. Brief assessment on rounds of vital signs, medication needs, lab studies, and pain. Treatment plan problems . Intervention: Patient assessed and the following interventions initiated safety checks 15 Minute Checks Head to toe Assessment , Cognitive Assessment , Medications. Response: After interactions and interventions patient responded in the following manner, Delusions , Anxious ,Agitated. Continue to assess behaviors and condition will continue to monitor throughout the shift as needed. Patient educated on ADL's, and hand hygiene. Plan: Continue to monitor Master Treatment Plan for patient's progress toward short term goals of Improved Mood, Decreased Agitation, fpc goals to return to previous living setting vs placement. Continue to assess patient for changes in above assessment. Monitor for medication needs, pain, and safety concerns. Hourly rounding performed to ensure safe environment.
[2018-06-16 16:15] VITALS: BP 139/94
[2018-06-16] MEDS: DIVALPROEX ER 500 MG TAB.ER.24H PO SCH (20:06)
[2018-06-16] MEDS: ATORVASTATIN CALCIUM 20 MG TABLET PO SCH (20:07)
[2018-06-16] MEDS: MIRTAZAPINE 7.5 MG TABLET. PO SCH (20:07)
[2018-06-16] MEDS: BENZTROPINE MESYLATE 1 MG TABLET PO SCH (20:07)
[2018-06-16] MEDS: traZODone 100 MG TABLET. PO PRN (20:13)
--- NOTE | 2018-06-16 22:47 | PDOC ---
Exam Note: Julian Note: Please also refer to the separate dictated note~for this date of service dictated separately.~Patient seen individually. Discussed the patient with Nursing staff reviewed the chart.~Reviewed interim history and current functioning. Reviewed vital signs,~Labs/ Radiology~and current medications noted below. Continue current treatment with the changes noted in the dictated addendum note Assessment: Vital Signs: Vital Signs Date Time Temp Pulse Resp B/P (MAP) Pulse Ox O2 Delivery O2 Flow Rate FiO2 06/16/18 16:15 97.2 87 17 139/94 (109) 96 Room Air I&O Intake and Output 06/16/18 07:01 Intake Total 240 ml Balance 240 ml Intake Oral 240 ml Current Medications: Meds: Current Medications Acetaminophen (Tylenol) 650 mg PRN Q6HRS PRN PO PAIN / TEMP Last administered on 06/14/18at 06:10; Start 06/06/18 at 04:15 Multi-Ingredient Ointment (Analgesic [place]) 1 speedy PRN QID PRN TP MUSCLE PAIN Last administered on 06/07/18at 22:53; Start 06/06/18 at 04:15 Al Hydroxide/Mg Hydroxide (Mylanta Plus Xs) 15 ml PRN AFTMEALHC PRN PO DYSPEPSIA; Start 06/06/18 at 04:15 Magnesium Hydroxide (Milk Of Magnesia) 2,400 mg PRN QHS PRN PO CONSTIPATION; Start 06/06/18 at 04:15 Amlodipine Besylate (Norvasc) 5 mg DAILY PO Last administered on 06/16/18at 09: 54; Start 06/06/18 at 09:00 Atorvastatin Calcium (Lipitor) 20 mg QHS PO Last administered on 06/16/18at 20: 07; Start 06/06/18 at 21:00 Clozapine (Clozaril) 100 mg BID94 PO Last administered on 06/15/18 07:44; Start 06/06/18 at 09:00; Stop 06/15/18 at 18:36; Status DC Clozapine (Clozaril) 50 mg BID94 PO Last administered on 06/15/18at 07:44; Start 06/06/18 at 09:00; Stop 06/15/18 at 18:36; Status DC Cyanocobalamin (Vitamin B-12) 1,000 mcg DAILY PO Last administered on 09:54; Start 06/06/18 at 09:00 Divalproex Sodium (Depakote Er) 1,000 mg QHS PO Last administered on 06/16/18 20:06; Start 06/06/18 at 21:00 Vitamin D (Vitamin D3) 50,000 unit WEEKLY PO Last administered on 06/15/18 07: 44; Start 06/07/18 at 09:00 Estradiol (Estrace) 1 speedy QMTH VG Last administered on 06/08/18 15:41; Start 06/08/18 at 16:00; Stop 06/08/18 at 21:19; Status DC Furosemide (Lasix) 20 mg DAILY PO Last administered on 06/16/18 09:54; Start 06/06/18 at 09:00 Levothyroxine Sodium (Synthroid) 75 mcg DAILY06 PO Last administered on 05:02; Start 06/06/18 at 06:00 Melatonin 6 mg PRN QHS PRN PO INSOMNIA Last administered on 06/13/18 22:23; Start 06/06/18 at 04:30 Magnesium Hydroxide (Milk Of Magnesia) 2,400 mg PRN DAILY PRN PO CONSTIPATION; Start 06/06/18 at 04:30; Status UNV Polyethylene Glycol (miraLAX) 17 gm DAILY PO Last administered on 06/16/18 10: 00; Start 06/06/18 at 09:00 Prednisolone Acetate (Pred Forte) 1 drop DAILY OD Last administered on 07:45; Start 06/06/18 at 09:00 Artificial Tears (Refresh Classic) 1 drop TID PRN PRN OU DRY EYE; Start at 04:30 Mirtazapine (Remeron) 7.5 mg QHS PO Last administered on 06/16/18 20:07; Start 06/06/18 at 21:00 Trazodone HCl (Desyrel) 100 mg PRN QHS PRN PO INSOMNIA, MAY REPEAT X3 Last administered on 06/16/18 20:13; Start 06/06/18 at 19:00 Olanzapine (ZyPREXA ZYDIS) 5 mg PRN Q2HR PRN PO PSYCHOSIS Last administered on 06/13/18 15:21; Start 06/07/18 at 14:00 Haloperidol (Haldol) 5 mg HS PO ; Start 06/07/18 at 21:00; Stop 06/07/18 at 21: 00; Status DC Haloperidol Lactate (Haldol) 5 mg DAILY IM Last administered on 06/09/18at 07:51 ; Start 06/07/18 at 19:15; Stop 06/09/18 at 09:41; Status DC Estradiol (Estrace) 1 speedy QMTH VG ; Start 06/11/18 at 21:00 Haloperidol Lactate (Haldol) 5 mg 1X ONCE IM Last administered on 06/09/18at 09 :43; Start 06/09/18 at 09:45; Stop 06/09/18 at 09:46; Status DC Haloperidol Lactate (Haldol) 10 mg DAILY IM Last administered on 06/14/18at 08: 40; Start 06/10/18 at 09:00; Stop 06/14/18 at 13:06; Status DC Hydroxyzine HCl (Atarax) 50 mg 1X ONCE PO Last administered on 06/09/18at 17:26 ; Start 06/09/18 at 17:15; Stop 06/09/18 at 17:24; Status DC Hydroxyzine HCl (Atarax) 50 mg 1X ONCE PO Last administered on 06/09/18at 18:29 ; Start 06/09/18 at 18:25; Stop 06/09/18 at 18:26; Status DC Benztropine Mesylate (Cogentin) 1 mg QHS PO Last administered on 06/16/18at 20: 07; Start 06/10/18 at 21:00 [place] Carbonate 300 mg HS PO Last administered on 06/13/18at 19:20; Start at 21:00; Stop 06/14/18 at 13:06; Status DC Hydroxyzine HCl (Atarax) 50 mg PRN Q2HR PRN PO SEDATION Last administered on at 12:55; Start 06/11/18 at 15:00 Trazodone HCl (Desyrel) 100 mg PRN 1X PRN PO insomnia Last administered on 06/12at 04:16; Start 06/12/18 at 03:15 Lorazepam (Ativan Intensol) 0.5 mg 1X ONCE SL Last administered on 06/13/18at 21:51; Start 06/13/18 at 18:15; Stop 06/13/18 at 18:16; Status DC Lorazepam (Ativan) 1 mg DAILY IM Last administered on 06/16/18at 09:57; Start at 09:50 Haloperidol Lactate (Haldol) 5 mg DAILY IM Last administered on 06/16/18at 09:54 ; Start 06/15/18 at 09:00 [place] Carbonate 300 mg BID PO Last administered on 06/16/18at 20:07; Start at 21:00 Clozapine (Clozaril) 300 mg DAILY PO Last administered on 06/16/18at 09:56; Start 06/16/18 at 09:00 Clozapine (Clozaril) 25 mg DAILY PO Last administered on 06/16/18at 09:56; Start 06/16/18 at 09:00 Active Scripts Active Reported Hydroxyzine Hcl 10 Mg Tablet 10 Mg PO PRN Q2HR PRN Clozapine 100 Mg Tablet 1 Tab PO 1700 Remeron (Mirtazapine) 15 Mg Tablet 1 Tab PO 1700 Depakote Er (Divalproex Sodium) 500 Mg Tab.er.24h 750 Mg PO 1700 Nystatin 15 Gm Powder 1 Speedy TP BID Lidocaine 1 Each Adh..patch 1 Each TP DAILY Lotrimin Af (Clotrimazole) 12 Gm Cream..g. 1 Speedy TP BID PRN Sorbitol (Sorbitol Solution) 1 Ml Solution 30 Ml PO PRN DAILY PRN Trazodone Hcl 50 Mg Tablet 100 Mg PO QHS PRN Elmer-128 (Sodium Chloride) 3.5 Gm Oint...g. 1 Speedy OP HS Lipitor (Atorvastatin Calcium) 20 Mg Tablet 20 Mg PO DAILYWSUP Levothyroxine Sodium 75 Mcg Tablet 75 Mcg PO DAILYAC Estrace (Estradiol) 42.5 Gm Cream.appl 1 Speedy VG 2X WEEK Q MON, THURS Endocet 10-325 Mg Tablet (Oxycodone Hcl/Acetaminophen) 1 Each Tablet 1 Each PO PRN Q6HRS PRN Vitamin B-12 (Cyanocobalamin (Vitamin B-12)) 1,000 Mcg Tablet 1,000 Mcg PO DAILY Maalox Advanced Suspension (Mag Hydrox/Aluminum Hyd/Simeth) 355 Ml Oral.susp 15 Ml PO PRN AFTMEALHC PRN Analgesic [place] (Methyl Salicylate/Menthol) 28 Gm Oint...g. 1 Speedy TP PRN QID PRN Risperidone 1 Mg Tablet 1.5 Mg PO 1700 Refresh Classic Eye Drops (Polyvinyl Alcohol/Povidone/Pf) 1 Each Droperette 1 Each OU TID PRN Trazodone Hcl 50 Mg Tablet 100 Mg PO DAILYWSUP Norvasc (Amlodipine Besylate) 5 Mg Tablet 10 Mg PO DAILY Miralax (Polyethylene Glycol 3350) 17 Gm Powd.pack 17 Gm PO DAILY Milk Of Magnesia (Magnesium Hydroxide) 2,400 Mg/10 Ml Oral.susp 2,400 Mg PO PRN DAILY PRN Tylenol (Acetaminophen) 325 Mg Tablet 650 Mg PO PRN Q6HRS PRN I have reviewed the current psychotropics carefully including drug interactions. Risk benefit ratio favors no change other than as noted in my dictated progress note. 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
--- NOTE | 2018-06-17 03:24 | PN ---
DATE: 06/15/2018 PSYCHIATRIC PROGRESS NOTE This late entry of 06/15/2018 covers elements not covered in my initial note. SUBJECTIVE: I met with the patient in the evening several times and was called by the nursing staff several times during the day. She once again had a very, very difficult day. We discontinued the Haldol IM meds. We did increase the lithium to 300 mg twice a day since level on 300 mg was 0.4. We started IM Ativan, which seems to help a little and she has received Atarax. She has had an "awful" day per nursing report. She has been screaming, has been on the mattress in the [place] in the quiet room, doors open. We have discussed changing lithium to liquid to help compliance if needed. REVIEW OF SYSTEMS: Ambulation impaired. No CV, , pulmonary, eye, ENT system symptoms on review. Reliability poor. MENTAL STATUS EXAM: Oriented to herself and situation. Speech coherent, rapid, loud at times. Abstraction fair, computation impaired, language function intact, very paranoid, psychotic as I sat with her. LABORATORY DATA: Reviewed. IMPRESSION: Schizoaffective disorder, bipolar type, mixed with psychotic features; anxiety disorder, unspecified; impulse control disorder, unspecified. PLAN: WBC is 4.8, neutrophils 58%, Clozaril will be increased from 150 mg b.i.d. to 150 mg a.m. and 175 mg p.m. Rest unchanged from initial note, but we will restart Haldol IM 5 mg daily, Ativan 1 mg IM daily. Rest unchanged for now. Depakote is therapeutic. [place] has been adjusted. KIERSTEN WATT MD DR: SANCHEZ/fredrick JOB#: [id number] / [id number]
--- NOTE | 2018-06-17 04:28 | NUR ---
Nursing Note The patient was located in the quiet hallway upon shift change and remained there until she became drowsy. The patient was taken to her room after falling asleep in the quiet hallway. the patient was unable to answer assessment questions. The patient was able to take her medications @ approximately 2200. The patient took her medications whole. The patient is currently sleeping in her room.
[2018-06-17 06:16] VITALS: BP 132/83
[2018-06-17] MEDS: cloZAPine 100 MG TABLET PO SCH (08:05)
[2018-06-17] MEDS: LITHIUM CARBONATE 300 MG TABLET PO SCH ×3 (08:05→21:00)
[2018-06-17] MEDS: CYANOCOBALAMIN (VITAMIN B-12) 1,000 MCG TABLET. PO SCH (08:08)
[2018-06-17] MEDS: POLYETHYLENE GLYCOL 3350 17 GM PACKET. PO SCH (08:08)
[2018-06-17] MEDS: cloZAPine 25 MG TABLET PO SCH (08:08)
[2018-06-17] MEDS: FUROSEMIDE 20 MG TABLET PO SCH (08:08)
[2018-06-17] MEDS: LEVOTHYROXINE 75 MCG TABLET PO SCH (08:14)
[2018-06-17] MEDS: amLODIPine BESYLATE 5 MG TABLET PO SCH (09:00)
[2018-06-17] MEDS: HALOPERIDOL LACT 5 MG/ML VIAL. IM SCH (09:00)
[2018-06-17] MEDS: prednisoLONE ACETATE 1% OPHTH SUSPENSION 5ML BOTTLE. OD SCH (09:00)
--- NOTE | 2018-06-17 11:10 | NUR ---
This am pt was in [facility] yelling, rolling round on the floor and kicking the doors and pastrana. Pt was taken to breakfast where she was encouraged to eat her breakfast which she did at first but then threw her cup and had to be removed for safety as she attempted to hit staff, she was taken to the hallway. While in the [facility] she continued to be disruptive to her peers, yelling, screaming, rolling around on the floor. Staff observed she was wet and offered to help her change, pt began to kick staff. Staff escorted pt to her room where X 3 staff members changed pts brief and clothing. While assisting pt, she was yelling and cussing at staff calling them "bitches." Pt was then taken to [facility] where she placed herself on the ground and kicked the pastrana, yelled, and called out.
[2018-06-17] MEDS: ACETAMINOPHEN 325 MG TABLET PO PRN (11:22)
[2018-06-17] MEDS: hydrOXYzine HCL 25 MG TABLET PO PRN (11:22)
--- NOTE | 2018-06-17 12:07 | NUR ---
[facility]. Pt stated her back hurt. Staff had to encourage pt multiple times to take her medication and at one point she hit the water from the nurse spilling it on herself. Pt would strike out at staff when staff attempted to assist pt. PRN atarax and tylenol given. Pt then toileted and brief changed. Pt attempted to slap, hit and bite staff during brief change. Pt was yelling out the entire time during brief change. Pt was then assisted to bed.
[2018-06-17 18:14] VITALS: BP 133/89
--- NOTE | 2018-06-17 18:15 | NUR ---
Patient was very resistive to vital signs, elevated heart rate is most likely due to increased agitation and combativeness at the time.
--- NOTE | 2018-06-17 18:21 | NUR ---
Pt yelling in her room, staff assisted to the bathroom X 3 persons. Pt yelling, screaming, spit X 1. Pts brief changed, clothing changed, pt assisted to dayroom and provided with dinner.
[2018-06-17] MEDS: MIRTAZAPINE 7.5 MG TABLET. PO SCH ×2 (19:52→21:00)
[2018-06-17] MEDS: traZODone 100 MG TABLET. PO PRN ×2 (19:52→22:09)
[2018-06-17] MEDS: ATORVASTATIN CALCIUM 20 MG TABLET PO SCH ×2 (19:52→21:00)
[2018-06-17] MEDS: DIVALPROEX ER 500 MG TAB.ER.24H PO SCH ×2 (19:52→21:00)
[2018-06-17] MEDS: BENZTROPINE MESYLATE 1 MG TABLET PO SCH ×2 (19:53→21:00)
--- NOTE | 2018-06-17 22:44 | PDOC ---
Exam Note: Julian Note: Please also refer to the separate dictated note~for this date of service dictated separately.~Patient seen individually. Discussed the patient with Nursing staff reviewed the chart.~Reviewed interim history and current functioning. Reviewed vital signs,~Labs/ Radiology~and current medications noted below. Continue current treatment with the changes noted in the dictated addendum note Assessment: Vital Signs: Vital Signs Date Time Temp Pulse Resp B/P (MAP) Pulse Ox O2 Delivery O2 Flow Rate FiO2 06/17/18 18:14 98.0 123 20 133/89 (104) 97 Room Air Current Medications: Meds: Current Medications Acetaminophen (Tylenol) 650 mg PRN Q6HRS PRN PO PAIN / TEMP Last administered on 06/17/18 11:22; Start 06/06/18 at 04:15 Multi-Ingredient Ointment (Analgesic [place]) 1 speedy PRN QID PRN TP MUSCLE PAIN Last administered on 06/07/18at 22:53; Start 06/06/18 at 04:15 Al Hydroxide/Mg Hydroxide (Mylanta Plus Xs) 15 ml PRN AFTMEALHC PRN PO DYSPEPSIA; Start 06/06/18 at 04:15 Magnesium Hydroxide (Milk Of Magnesia) 2,400 mg PRN QHS PRN PO CONSTIPATION; Start 06/06/18 at 04:15 Amlodipine Besylate (Norvasc) 5 mg DAILY PO Last administered on 06/16/18at 09: 54; Start 06/06/18 at 09:00 Atorvastatin Calcium (Lipitor) 20 mg QHS PO Last administered on 06/17/18 19: 52; Start 06/06/18 at 21:00 Clozapine (Clozaril) 100 mg BID94 PO Last administered on 06/15/18at 07:44; Start 06/06/18 at 09:00; Stop 06/15/18 at 18:36; Status DC Clozapine (Clozaril) 50 mg BID94 PO Last administered on 06/15/18at 07:44; Start 06/06/18 at 09:00; Stop 06/15/18 at 18:36; Status DC Cyanocobalamin (Vitamin B-12) 1,000 mcg DAILY PO Last administered on 08:08; Start 06/06/18 at 09:00 Divalproex Sodium (Depakote Er) 1,000 mg QHS PO Last administered on 06/17/18 19:52; Start 06/06/18 at 21:00 Vitamin D (Vitamin D3) 50,000 unit WEEKLY PO Last administered on 06/15/18 07: 44; Start 06/07/18 at 09:00 Estradiol (Estrace) 1 speedy QMTH VG Last administered on 06/08/18 15:41; Start 06/08/18 at 16:00; Stop 06/08/18 at 21:19; Status DC Furosemide (Lasix) 20 mg DAILY PO Last administered on 06/17/18 08:08; Start 06/06/18 at 09:00 Levothyroxine Sodium (Synthroid) 75 mcg DAILY06 PO Last administered on 08:14; Start 06/06/18 at 06:00 Melatonin 6 mg PRN QHS PRN PO INSOMNIA Last administered on 06/13/18 22:23; Start 06/06/18 at 04:30 Magnesium Hydroxide (Milk Of Magnesia) 2,400 mg PRN DAILY PRN PO CONSTIPATION; Start 06/06/18 at 04:30; Status UNV Polyethylene Glycol (miraLAX) 17 gm DAILY PO Last administered on 06/17/18 08: 08; Start 06/06/18 at 09:00 Prednisolone Acetate (Pred Forte) 1 drop DAILY OD Last administered on 07:45; Start 06/06/18 at 09:00 Artificial Tears (Refresh Classic) 1 drop TID PRN PRN OU DRY EYE; Start at 04:30 Mirtazapine (Remeron) 7.5 mg QHS PO Last administered on 06/17/18 19:52; Start 06/06/18 at 21:00 Trazodone HCl (Desyrel) 100 mg PRN QHS PRN PO INSOMNIA, MAY REPEAT X3 Last administered on 06/17/18 22:09; Start 06/06/18 at 19:00 Olanzapine (ZyPREXA ZYDIS) 5 mg PRN Q2HR PRN PO PSYCHOSIS Last administered on 06/17/18 22:09; Start 06/07/18 at 14:00 Haloperidol (Haldol) 5 mg HS PO ; Start 06/07/18 at 21:00; Stop 06/07/18 at 21: 00; Status DC Haloperidol Lactate (Haldol) 5 mg DAILY IM Last administered on 06/09/18at 07:51 ; Start 06/07/18 at 19:15; Stop 06/09/18 at 09:41; Status DC Estradiol (Estrace) 1 speedy QMTH VG ; Start 06/11/18 at 21:00 Haloperidol Lactate (Haldol) 5 mg 1X ONCE IM Last administered on 06/09/18at 09 :43; Start 06/09/18 at 09:45; Stop 06/09/18 at 09:46; Status DC Haloperidol Lactate (Haldol) 10 mg DAILY IM Last administered on 06/14/18at 08: 40; Start 06/10/18 at 09:00; Stop 06/14/18 at 13:06; Status DC Hydroxyzine HCl (Atarax) 50 mg 1X ONCE PO Last administered on 06/09/18at 17:26 ; Start 06/09/18 at 17:15; Stop 06/09/18 at 17:24; Status DC Hydroxyzine HCl (Atarax) 50 mg 1X ONCE PO Last administered on 06/09/18at 18:29 ; Start 06/09/18 at 18:25; Stop 06/09/18 at 18:26; Status DC Benztropine Mesylate (Cogentin) 1 mg QHS PO Last administered on 06/17/18at 19: 53; Start 06/10/18 at 21:00 [place] Carbonate 300 mg HS PO Last administered on 06/13/18at 19:20; Start at 21:00; Stop 06/14/18 at 13:06; Status DC Hydroxyzine HCl (Atarax) 50 mg PRN Q2HR PRN PO SEDATION Last administered on at 11:22; Start 06/11/18 at 15:00 Trazodone HCl (Desyrel) 100 mg PRN 1X PRN PO insomnia Last administered on 06/12at 04:16; Start 06/12/18 at 03:15 Lorazepam (Ativan Intensol) 0.5 mg 1X ONCE SL Last administered on 06/13/18at 21:51; Start 06/13/18 at 18:15; Stop 06/13/18 at 18:16; Status DC Lorazepam (Ativan) 1 mg DAILY IM Last administered on 06/17/18at 20:31; Start at 09:50 Haloperidol Lactate (Haldol) 5 mg DAILY IM Last administered on 06/16/18at 09:54 ; Start 06/15/18 at 09:00 [place] Carbonate 300 mg BID PO Last administered on 06/17/18at 19:53; Start at 21:00 Clozapine (Clozaril) 300 mg DAILY PO Last administered on 06/17/18at 08:05; Start 06/16/18 at 09:00 Clozapine (Clozaril) 25 mg DAILY PO Last administered on 06/17/18at 08:08; Start 06/16/18 at 09:00 Active Scripts Active Reported Hydroxyzine Hcl 10 Mg Tablet 10 Mg PO PRN Q2HR PRN Clozapine 100 Mg Tablet 1 Tab PO 1700 Remeron (Mirtazapine) 15 Mg Tablet 1 Tab PO 1700 Depakote Er (Divalproex Sodium) 500 Mg Tab.er.24h 750 Mg PO 1700 Nystatin 15 Gm Powder 1 Speedy TP BID Lidocaine 1 Each Adh..patch 1 Each TP DAILY Lotrimin Af (Clotrimazole) 12 Gm Cream..g. 1 Speedy TP BID PRN Sorbitol (Sorbitol Solution) 1 Ml Solution 30 Ml PO PRN DAILY PRN Trazodone Hcl 50 Mg Tablet 100 Mg PO QHS PRN [place]mer-128 (Sodium Chloride) 3.5 Gm Oint...g. 1 Speedy OP HS Lipitor (Atorvastatin Calcium) 20 Mg Tablet 20 Mg PO DAILYWSUP Levothyroxine Sodium 75 Mcg Tablet 75 Mcg PO DAILYAC Estrace (Estradiol) 42.5 Gm Cream.appl 1 Speedy VG 2X WEEK Q MON, THURS Endocet 10-325 Mg Tablet (Oxycodone Hcl/Acetaminophen) 1 Each Tablet 1 Each PO PRN Q6HRS PRN Vitamin B-12 (Cyanocobalamin (Vitamin B-12)) 1,000 Mcg Tablet 1,000 Mcg PO DAILY Maalox Advanced Suspension (Mag Hydrox/Aluminum Hyd/Simeth) 355 Ml Oral.susp 15 Ml PO PRN AFTMEALHC PRN Analgesic [place] (Methyl Salicylate/Menthol) 28 Gm Oint...g. 1 Speedy TP PRN QID PRN Risperidone 1 Mg Tablet 1.5 Mg PO 1700 Refresh [place] Eye Drops (Polyvinyl Alcohol/Povidone/Pf) 1 Each Droperette 1 Each OU TID PRN Trazodone Hcl 50 Mg Tablet 100 Mg PO DAILYWSUP Norvasc (Amlodipine Besylate) 5 Mg Tablet 10 Mg PO DAILY Miralax (Polyethylene Glycol 3350) 17 Gm Powd.pack 17 Gm PO DAILY Milk Of Magnesia (Magnesium Hydroxide) 2,400 Mg/10 Ml Oral.susp 2,400 Mg PO PRN DAILY PRN Tylenol (Acetaminophen) 325 Mg Tablet 650 Mg PO PRN Q6HRS PRN I have reviewed the current psychotropics carefully including drug interactions. Risk benefit ratio favors no change other than as noted in my dictated progress note. 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
--- NOTE | 2018-06-17 23:48 | NUR ---
Nursing Note The patient was very agitated and resistive with cares and medication this shift. The patient refused all scheduled medications and this nurse was unable to administer them. The patient was given PRN Trazodone and Zyprexa prior to HS per PRN order. The patient is currently sleeping in her room.
[2018-06-18] MEDS: LEVOTHYROXINE 75 MCG TABLET PO SCH ×2 (06:27→08:14)
[2018-06-18 06:56] VITALS: BP 134/88
[2018-06-18 07:40] LABS: BASO % 1 % (0-3); EOS # 0.2 x10^3/uL (0.0-0.7); EOS % 3 % (0-3); HEMATOCRIT 41.6 % (36.0-47.0); HEMOGLOBIN 13.9 g/dL (12.0-15.5); LYMPH # 1.6 x10^3/uL (1.0-4.8); LYMPH % 25 % (24-48); MEAN CORPUSCULAR HEMOGLOBIN 29 pg (25-35); MEAN CORPUSCULAR HGB CONC 33 g/dL (31-37); MEAN CORPUSCULAR VOLUME 87 fL (79-100); MONO # 0.8 x10^3/uL (0.0-1.1); MONO % 13 % (0-9); NEUT # 3.7 x10^3uL (1.8-7.7); NEUT % 59 % (31-73); PLATELET COUNT 246 x10^3/uL (140-400); RED BLOOD COUNT 4.81 x10^6/uL (3.50-5.40); RED CELL DISTRIBUTION WIDTH 16.1 % (11.5-14.5); WHITE BLOOD COUNT 6.3 x10^3/uL (4.0-11.0)
[2018-06-18 07:53] LABS: ALBUMIN 3.6 g/dL (3.4-5.0); ALBUMIN/GLOBULIN RATIO 0.8 (1.0-1.7); CALCIUM 10.5 mg/dL (8.5-10.1); CREATININE 1.2 mg/dL (0.6-1.0); GFR 44.5; TOTAL BILIRUBIN 0.5 mg/dL (0.2-1.0); TOTAL PROTEIN 8.1 g/dL (6.4-8.2)
[2018-06-18] MEDS: POLYETHYLENE GLYCOL 3350 17 GM PACKET. PO SCH (08:14)
[2018-06-18] MEDS: FUROSEMIDE 20 MG TABLET PO SCH (08:14)
[2018-06-18] MEDS: LITHIUM CARBONATE 300 MG TABLET PO SCH (08:14)
[2018-06-18] MEDS: cloZAPine 25 MG TABLET PO SCH (08:15)
[2018-06-18] MEDS: cloZAPine 100 MG TABLET PO SCH (08:15)
[2018-06-18] MEDS: CYANOCOBALAMIN (VITAMIN B-12) 1,000 MCG TABLET. PO SCH (08:15)
[2018-06-18] MEDS: amLODIPine BESYLATE 5 MG TABLET PO SCH (08:15)
[2018-06-18] MEDS: prednisoLONE ACETATE 1% OPHTH SUSPENSION 5ML BOTTLE. OD SCH (08:26)
[2018-06-18] MEDS: HALOPERIDOL LACT 5 MG/ML VIAL. IM SCH (09:00)
--- NOTE | 2018-06-18 09:39 | PN ---
DATE: 06/16/2018 This late entry for 06/16/2018 covers elements not covered in my initial note. SUBJECTIVE: I met with the patient in the evening of 06/16/2018 and nursing staff called me several times during the day. The patient slept 10 hours previous night, but she was up and down most of the night. During the day on 06/16/2018, she has been yelling, cursing, taking her clothes off, quite psychotic, disorganized during the day, little quieter in the evening. REVIEW OF SYSTEMS: No CV, , pulmonary, eye, ENT system symptoms on review. MENTAL STATUS EXAM: Oriented to herself and situation. Speech coherent, rapid at times. Abstraction fair, computation impaired, language function intact, attention span short. Mood and affect remains quite labile, psychotic. LABORATORY DATA: Reviewed. IMPRESSION: Bipolar 1 disorder, mixed with psychotic features; anxiety disorder, unspecified; impulse control disorder, unspecified. PLAN: Continue psychotropics from initial note including the IM Haldol, Ativan, Clozaril. IM Haldol may be discontinued once the lithium level is therapeutic. Rest unchanged for now. MAN Rox WATT MD DR: SANCHEZ/fredrick JOB#: [id number] / [id number]
--- NOTE | 2018-06-18 09:45 | NUR ---
WEEKLY ACTIVITY THERAPY NOTE Date of Admission: 06/06/2018 Date of AT Assessment: 06/07/2018 Goal aimed: to increase attention span and engagement Initial Goal: Pt. will participate in all Activity Therapy groups offered (Pt. set goal for self) Weekly progress towards goal: did not achieve Group participation level: minimal Behaviors observed: Pt. in secured hallway nearly every day this week. Difficult to redirect, interrupts group, distracting to others. Plan: Change goal to: Pt. will participate in at least three (Activity Therapy) groups or individual activities per week.
--- NOTE | 2018-06-18 10:42 | NUR ---
WEEKLY NOTE: Pt is mostly medication compliant; however, last night she refused her medications. Pt is on [place] and levels have been drawn. Pt sleeps 6.25 hours at HS. Pt has spent a lot of time in the quiet hallway as she can be very combative. Pt is awaiting for a level II assessment. Pt does not participate in group at all. Haldol will be stopped for pt as a means to give the [place] a chance to work.
--- NOTE | 2018-06-18 11:48 | NUR ---
Patient dressed in onesie r/t removing her clothing in public places. Sarcastic at breakfast but compliant with medications when given ice water that she requested. Patient observed to have gotten out of her onesie and laying on bed in her room naked. Advised patient she would need to put on clothes to come out of her room at lunch. She shouted "I Know!" at nurse.
--- NOTE | 2018-06-18 12:21 | NUR ---
patient laying on floor in room, calm at this time but is refusing to go to lunch.
[2018-06-18 16:23] VITALS: BP 137/81
--- NOTE | 2018-06-18 16:32 | NUR ---
Patient found in room 229 naked and washing hair in the sink. Her brief was soiled and on the floor in the bathroom. Patient provided towel to dry hair, she flicked towel at staff. Patient assisted to dry and get brief and onesie back on. Resistive and not cooperating. Patient assisted to her room where she laid on the floor.
[2018-06-18] MEDS: MIRTAZAPINE 7.5 MG TABLET. PO SCH (20:03)
[2018-06-18] MEDS: DIVALPROEX ER 500 MG TAB.ER.24H PO SCH (20:03)
[2018-06-18] MEDS: ATORVASTATIN CALCIUM 20 MG TABLET PO SCH (20:03)
[2018-06-18] MEDS: BENZTROPINE MESYLATE 1 MG TABLET PO SCH (20:03)
[2018-06-18] MEDS: LITHIUM CITRATE PO SCH (20:05)
[2018-06-18] MEDS: ESTRADIOL 0.01% VAGINAL CREAM 42.5GM TUBE. VG SCH (20:05)
[2018-06-18] MEDS: traZODone 100 MG TABLET. PO PRN (20:07)
--- NOTE | 2018-06-18 22:40 | PDOC ---
Exam Note: Julian Note: Please also refer to the separate dictated note~for this date of service dictated separately.~Patient seen individually. Discussed the patient with Nursing staff reviewed the chart.~Reviewed interim history and current functioning. Reviewed vital signs,~Labs/ Radiology~and current medications noted below. Continue current treatment with the changes noted in the dictated addendum note Assessment: Vital Signs: Vital Signs Date Time Temp Pulse Resp B/P (MAP) Pulse Ox O2 Delivery O2 Flow Rate FiO2 06/18/18 16:23 98.5 108 20 137/81 (99) 96 06/17/18 18:14 Room Air I&O Intake and Output 06/18/18 07:01 Intake Total 200 ml Balance 200 ml Intake Oral 200 ml Labs: Laboratory Tests Test 06/18/18 07:13 White Blood Count 6.3 x10^3/uL (4.0-11.0) Red Blood Count 4.81 x10^6/uL (3.50-5.40) Hemoglobin 13.9 g/dL (12.0-15.5) Hematocrit 41.6 % (36.0-47.0) Mean Corpuscular Volume 87 fL (79-100) Mean Corpuscular Hemoglobin 29 pg (25-35) Mean Corpuscular Hemoglobin Concent 33 g/dL (31-37) Red Cell Distribution Width 16.1 % (11.5-14.5) H Platelet Count 246 x10^3/uL (140-400) Neutrophils (%) (Auto) 59 % (31-73) Lymphocytes (%) (Auto) 25 % (24-48) Monocytes (%) (Auto) 13 % (0-9) H Eosinophils (%) (Auto) 3 % (0-3) Basophils (%) (Auto) 1 % (0-3) Neutrophils # (Auto) 3.7 x10^3uL (1.8-7.7) Lymphocytes # (Auto) 1.6 x10^3/uL (1.0-4.8) Monocytes # (Auto) 0.8 x10^3/uL (0.0-1.1) Eosinophils # (Auto) 0.2 x10^3/uL (0.0-0.7) Basophils # (Auto) 0.0 x10^3/uL (0.0-0.2) Sodium Level 142 mmol/L (136-145) Potassium Level 4.0 mmol/L (3.5-5.1) Chloride Level 104 mmol/L (98-107) Carbon Dioxide Level 32 mmol/L (21-32) Anion Gap 6 (6-14) Blood Urea Nitrogen 26 mg/dL (7-20) H Creatinine 1.2 mg/dL (0.6-1.0) H Estimated GFR (Cockcroft-Gault) 44.5 BUN/Creatinine Ratio 22 (6-20) H Glucose Level 110 mg/dL (70-99) H Calcium Level 10.5 mg/dL (8.5-10.1) H Total Bilirubin 0.5 mg/dL (0.2-1.0) Aspartate Amino Transferase (AST) 38 U/L (15-37) H Alanine Aminotransferase (ALT) 34 U/L (14-59) Alkaline Phosphatase 101 U/L (46-116) Total Protein 8.1 g/dL (6.4-8.2) Albumin 3.6 g/dL (3.4-5.0) Albumin/Globulin Ratio 0.8 (1.0-1.7) L [place] Level 1.1 mmol/L (0.6-1.2) [place] Last Dose Date 06/17/18 [place] Last Dose Time 2100 Current Medications: Meds: Current Medications Acetaminophen (Tylenol) 650 mg PRN Q6HRS PRN PO PAIN / TEMP Last administered on 06/17/18at 11:22; Start 06/06/18 at 04:15 Multi-Ingredient Ointment (Analgesic [place]) 1 speedy PRN QID PRN TP MUSCLE PAIN Last administered on 06/07/18at 22:53; Start 06/06/18 at 04:15 Al Hydroxide/Mg Hydroxide (Mylanta Plus Xs) 15 ml PRN AFTMEALHC PRN PO DYSPEPSIA; Start 06/06/18 at 04:15 Magnesium Hydroxide (Milk Of Magnesia) 2,400 mg PRN QHS PRN PO CONSTIPATION; Start 06/06/18 at 04:15 Amlodipine Besylate (Norvasc) 5 mg DAILY PO Last administered on 06/18/18at 08: 15; Start 06/06/18 at 09:00 Atorvastatin Calcium (Lipitor) 20 mg QHS PO Last administered on 1/31/19at 20: 03; Start 06/06/18 at 21:00 Clozapine (Clozaril) 100 mg [id number] PO Last administered on 06/15/18 07:44; Start 06/06/18 at 09:00; Stop 06/15/18 at 18:36; Status DC Clozapine (Clozaril) 50 mg [id number] PO Last administered on 06/15/18 07:44; Start 06/06/18 at 09:00; Stop 06/15/18 at 18:36; Status DC Cyanocobalamin (Vitamin B-12) 1,000 mcg DAILY PO Last administered on 08:15; Start 06/06/18 at 09:00 Divalproex Sodium (Depakote Er) 1,000 mg QHS PO Last administered on 06/18/18 20:03; Start 06/06/18 at 21:00 Vitamin D (Vitamin D3) 50,000 unit WEEKLY PO Last administered on 06/15/18 07: 44; Start 06/07/18 at 09:00 Estradiol (Estrace) 1 speedy QMTH VG Last administered on 06/08/18 15:41; Start 06/08/18 at 16:00; Stop 06/08/18 at 21:19; Status DC Furosemide (Lasix) 20 mg DAILY PO Last administered on 06/18/18 08:14; Start 06/06/18 at 09:00 Levothyroxine Sodium (Synthroid) 75 mcg DAILY06 PO Last administered on 08:14; Start 06/06/18 at 06:00 Melatonin 6 mg PRN QHS PRN PO INSOMNIA Last administered on 06/13/18 22:23; Start 06/06/18 at 04:30 Magnesium Hydroxide (Milk Of Magnesia) 2,400 mg PRN DAILY PRN PO CONSTIPATION; Start 06/06/18 at 04:30; Status UNV Polyethylene Glycol (miraLAX) 17 gm DAILY PO Last administered on 06/18/18 08: 14; Start 06/06/18 at 09:00 Prednisolone Acetate (Pred Forte) 1 drop DAILY OD Last administered on 07:45; Start 06/06/18 at 09:00 Artificial Tears (Refresh Classic) 1 drop TID PRN PRN OU DRY EYE; Start at 04:30 Mirtazapine (Remeron) 7.5 mg QHS PO Last administered on 06/18/18at 20:03; Start 06/06/18 at 21:00 Trazodone HCl (Desyrel) 100 mg PRN QHS PRN PO INSOMNIA, MAY REPEAT X3 Last administered on 06/18/18at 20:07; Start 06/06/18 at 19:00 Olanzapine (ZyPREXA ZYDIS) 5 mg PRN Q2HR PRN PO PSYCHOSIS Last administered on 06/17/18at 22:09; Start 06/07/18 at 14:00 Haloperidol (Haldol) 5 mg HS PO ; Start 06/07/18 at 21:00; Stop 06/07/18 at 21: 00; Status DC Haloperidol Lactate (Haldol) 5 mg DAILY IM Last administered on 06/09/18at 07:51 ; Start 06/07/18 at 19:15; Stop 06/09/18 at 09:41; Status DC Estradiol (Estrace) 1 speedy QMTH VG ; Start 06/11/18 at 21:00; Stop 06/18/18 at 11 :41; Status DC Haloperidol Lactate (Haldol) 5 mg 1X ONCE IM Last administered on 06/09/18at 09 :43; Start 06/09/18 at 09:45; Stop 06/09/18 at 09:46; Status DC Haloperidol Lactate (Haldol) 10 mg DAILY IM Last administered on 06/14/18at 08: 40; Start 06/10/18 at 09:00; Stop 06/14/18 at 13:06; Status DC Hydroxyzine HCl (Atarax) 50 mg 1X ONCE PO Last administered on 06/09/18at 17:26 ; Start 06/09/18 at 17:15; Stop 06/09/18 at 17:24; Status DC Hydroxyzine HCl (Atarax) 50 mg 1X ONCE PO Last administered on 06/09/18at 18:29 ; Start 06/09/18 at 18:25; Stop 06/09/18 at 18:26; Status DC Benztropine Mesylate (Cogentin) 1 mg QHS PO Last administered on 06/18/18at 20: 03; Start 06/10/18 at 21:00 [place] Carbonate 300 mg HS PO Last administered on 06/13/18 19:20; Start at 21:00; Stop 06/14/18 at 13:06; Status DC Hydroxyzine HCl (Atarax) 50 mg PRN Q2HR PRN PO SEDATION Last administered on 11:22; Start 06/11/18 at 15:00 Trazodone HCl (Desyrel) 100 mg PRN 1X PRN PO insomnia Last administered on 06/12 04:16; Start 06/12/18 at 03:15 Lorazepam (Ativan Intensol) 0.5 mg 1X ONCE SL Last administered on 06/13/18 21:51; Start 06/13/18 at 18:15; Stop 06/13/18 at 18:16; Status DC Lorazepam (Ativan) 1 mg DAILY IM Last administered on 06/18/18 20:10; Start at 09:50 Haloperidol Lactate (Haldol) 5 mg DAILY IM Last administered on 06/16/18 09:54 ; Start 06/15/18 at 09:00; Stop 06/18/18 at 10:45; Status DC [place] Carbonate 300 mg BID PO Last administered on 06/18/18 08:14; Start at 21:00; Stop 06/18/18 at 15:03; Status DC Clozapine (Clozaril) 300 mg DAILY PO Last administered on 06/18/18 08:15; Start 06/16/18 at 09:00 Clozapine (Clozaril) 25 mg DAILY PO Last administered on 06/18/18 08:15; Start 06/16/18 at 09:00 Estradiol (Estrace) 1 speedy MoTh VG Last administered on 06/18/18 20:05; Start 06/18/18 at 21:00 [place] Carbonate 300 mg DAILY PO ; Start 06/19/18 at 09:00 [place] Citrate 5.3 meq QHS PO Last administered on 06/18/18 20:05; Start at 21:00 Active Scripts Active Reported Hydroxyzine Hcl 10 Mg Tablet 10 Mg PO PRN Q2HR PRN Clozapine 100 Mg Tablet 1 Tab PO 1700 Remeron (Mirtazapine) 15 Mg Tablet 1 Tab PO 1700 Depakote Er (Divalproex Sodium) 500 Mg Tab.er.24h 750 Mg PO 1700 Nystatin 15 Gm Powder 1 Speedy TP BID Lidocaine 1 Each Adh..patch 1 Each TP DAILY Lotrimin Af (Clotrimazole) 12 Gm Cream..g. 1 Speedy TP BID PRN Sorbitol (Sorbitol Solution) 1 Ml Solution 30 Ml PO PRN DAILY PRN Trazodone Hcl 50 Mg Tablet 100 Mg PO QHS PRN Elmer-128 (Sodium Chloride) 3.5 Gm Oint...g. 1 Speedy OP HS Lipitor (Atorvastatin Calcium) 20 Mg Tablet 20 Mg PO DAILYWSUP Levothyroxine Sodium 75 Mcg Tablet 75 Mcg PO DAILYAC Estrace (Estradiol) 42.5 Gm Cream.appl 1 Speedy VG 2X WEEK Q FRI, URS Endocet 10-325 Mg Tablet (Oxycodone Hcl/Acetaminophen) 1 Each Tablet 1 Each PO PRN Q6HRS PRN Vitamin B-12 (Cyanocobalamin (Vitamin B-12)) 1,000 Mcg Tablet 1,000 Mcg PO DAILY Maalox Advanced Suspension (Mag Hydrox/Aluminum Hyd/Simeth) 355 Ml Oral.susp 15 Ml PO PRN AFTMEALHC PRN Analgesic [place] (Methyl Salicylate/Menthol) 28 Gm Oint...g. 1 Speedy TP PRN QID PRN Risperidone 1 Mg Tablet 1.5 Mg PO 1700 Refresh Classic Eye Drops (Polyvinyl Alcohol/Povidone/Pf) 1 Each Droperette 1 Each OU TID PRN Trazodone Hcl 50 Mg Tablet 100 Mg PO DAILYWSUP Norvasc (Amlodipine Besylate) 5 Mg Tablet 10 Mg PO DAILY Miralax (Polyethylene Glycol 3350) 17 Gm Powd.pack 17 Gm PO DAILY Milk Of Magnesia (Magnesium Hydroxide) 2,400 Mg/10 Ml Oral.susp 2,400 Mg PO PRN DAILY PRN Tylenol (Acetaminophen) 325 Mg Tablet 650 Mg PO PRN Q6HRS PRN I have reviewed the current psychotropics carefully including drug interactions. Risk benefit ratio favors no change other than as noted in my dictated progress note. 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
--- NOTE | 2018-06-18 23:40 | NUR ---
Pt was laying in bed at shift change. Pt irritable, sarcastic, yelling at times, and demanding that someone "Make my bed!" and " Open my closet so I can get some clothes out!" Pt had stripped all of her clothes and brief off and was laying in bed naked. Daily IM Ativan administered Left Deltoid as ordered. Once pt calmed she was compliant with HS medications administered whole. Pt then yelled "Get me some clothes!" When asked why she was yelling pt stated "I thought you were out there (pointing to the hallway)". This nurse then asked pt if she would like some clean pajamas out of her closet, to which pt responded "Well, do you expect me to stay like this all night!" This nurse then told pt that when she could speak to someone without sarcasm and condescension, then staff would be more than happy to assist her.
[2018-06-19 06:31] VITALS: BP 138/72
[2018-06-19] MEDS ORDERED: LEVOTHYROXINE 75 MCG TABLET PO ONE (07:00)
[2018-06-19] MEDS: amLODIPine BESYLATE 5 MG TABLET PO SCH (07:52)
[2018-06-19] MEDS: FUROSEMIDE 20 MG TABLET PO SCH (07:52)
[2018-06-19] MEDS: cloZAPine 25 MG TABLET PO SCH (07:52)
[2018-06-19] MEDS: POLYETHYLENE GLYCOL 3350 17 GM PACKET. PO SCH (07:53)
[2018-06-19] MEDS: CYANOCOBALAMIN (VITAMIN B-12) 1,000 MCG TABLET. PO SCH (07:53)
[2018-06-19] MEDS: cloZAPine 100 MG TABLET PO SCH (07:53)
[2018-06-19] MEDS: LITHIUM CARBONATE 300 MG TABLET PO SCH (07:55)
[2018-06-19] MEDS: prednisoLONE ACETATE 1% OPHTH SUSPENSION 5ML BOTTLE. OD SCH (07:55)
--- NOTE | 2018-06-19 08:08 | NUR ---
Patient in [facility] at the beginning of the shift. She called nurse over and was apologetic for her behaviors and tearfully asking to call her , who is dying of cancer. Nurse assured her that we could call him today. Assisted patient to select something to wear from her closet and let her put makeup on. Patient compliant with medications taken whole with ice water.
--- NOTE | 2018-06-19 10:48 | NUR ---
Patient laying, sleeping and drooling on floor in hallway. She is refusing to get up. Assist x3 to get patient into a wheelchair and back to her room. Patient wearing bathing suit and pulling her top down exposing her breasts, stating that they hurt. Patient refused assistance to get into bed, remains sitting in wheelchair in her room, door closed for privacy.
[2018-06-19 16:11] VITALS: BP 128/81
[2018-06-19] MEDS: BENZTROPINE MESYLATE 1 MG TABLET PO SCH (19:38)
[2018-06-19] MEDS: ATORVASTATIN CALCIUM 20 MG TABLET PO SCH (19:38)
[2018-06-19] MEDS: MIRTAZAPINE 7.5 MG TABLET. PO SCH (19:39)
[2018-06-19] MEDS: DIVALPROEX ER 500 MG TAB.ER.24H PO SCH (19:39)
[2018-06-19] MEDS: traZODone 100 MG TABLET. PO PRN (19:40)
[2018-06-19] MEDS: LITHIUM CITRATE PO SCH (19:40)
--- NOTE | 2018-06-19 21:58 | NUR ---
Pt sleeping in chair in day room at shift change. Pt irritable, snarky, yelling out at times when she is demanding something. Pt compliant with medications administered whole this evening. Pt asking to call her and daughter. Pt was allowed to use the phone to call her family but was unable to get a hold of them. Pt returned to the day room where she sat quietly until she was ready to go to bed. Pt currently resting quietly in bed with eyes closed.
--- NOTE | 2018-06-19 23:02 | PDOC ---
Exam Note: Julian Note: Please also refer to the separate dictated note~for this date of service dictated separately.~Patient seen individually. Discussed the patient with Nursing staff reviewed the chart.~Reviewed interim history and current functioning. Reviewed vital signs,~Labs/ Radiology~and current medications noted below. Continue current treatment with the changes noted in the dictated addendum note Assessment: Vital Signs: Vital Signs Date Time Temp Pulse Resp B/P (MAP) Pulse Ox O2 Delivery O2 Flow Rate FiO2 06/19/18 16:11 97.5 98 19 128/81 (97) 94 Room Air I&O Intake and Output 06/19/18 07:01 Intake Total 360 ml Balance 360 ml Intake Oral 360 ml # Voids 1 Current Medications: Meds: Current Medications Acetaminophen (Tylenol) 650 mg PRN Q6HRS PRN PO PAIN / TEMP Last administered on 06/17/18at 11:22; Start 06/06/18 at 04:15 Multi-Ingredient Ointment (Analgesic [place]) 1 speedy PRN QID PRN TP MUSCLE PAIN Last administered on 06/07/18at 22:53; Start 06/06/18 at 04:15 Al Hydroxide/Mg Hydroxide (Mylanta Plus Xs) 15 ml PRN AFTMEALHC PRN PO DYSPEPSIA; Start 06/06/18 at 04:15 Magnesium Hydroxide (Milk Of Magnesia) 2,400 mg PRN QHS PRN PO CONSTIPATION; Start 06/06/18 at 04:15 Amlodipine Besylate (Norvasc) 5 mg DAILY PO Last administered on 06/19/18 07:52 ; Start 06/06/18 at 09:00 Atorvastatin Calcium (Lipitor) 20 mg QHS PO Last administered on 06/19/18at 19:38 ; Start 06/06/18 at 21:00 Clozapine (Clozaril) 100 mg [id number] PO Last administered on 06/15/18 07:44; Start 06/06/18 at 09:00; Stop 06/15/18 at 18:36; Status DC Clozapine (Clozaril) 50 mg [id number] PO Last administered on 06/15/18 07:44; Start 06/06/18 at 09:00; Stop 06/15/18 at 18:36; Status DC Cyanocobalamin (Vitamin B-12) 1,000 mcg DAILY PO Last administered on 06/19/18 07:53; Start 06/06/18 at 09:00 Divalproex Sodium (Depakote Er) 1,000 mg QHS PO Last administered on 06/19/18 19:39; Start 06/06/18 at 21:00 Vitamin D (Vitamin D3) 50,000 unit WEEKLY PO Last administered on 06/15/18 07: 44; Start 06/07/18 at 09:00 Estradiol (Estrace) 1 speedy QMTH VG Last administered on 06/08/18 15:41; Start 06/08/18 at 16:00; Stop 06/08/18 at 21:19; Status DC Furosemide (Lasix) 20 mg DAILY PO Last administered on 06/19/18 07:52; Start at 09:00 Levothyroxine Sodium (Synthroid) 75 mcg DAILY06 PO Last administered on 08:14; Start 06/06/18 at 06:00 Melatonin 6 mg PRN QHS PRN PO INSOMNIA Last administered on 06/13/18 22:23; Start 06/06/18 at 04:30 Magnesium Hydroxide (Milk Of Magnesia) 2,400 mg PRN DAILY PRN PO CONSTIPATION; Start 06/06/18 at 04:30; Status UNV Polyethylene Glycol (miraLAX) 17 gm DAILY PO Last administered on 06/19/18 07: 53; Start 06/06/18 at 09:00 Prednisolone Acetate (Pred Forte) 1 drop DAILY OD Last administered on 07:55; Start 06/06/18 at 09:00 Artificial Tears (Refresh Classic) 1 drop TID PRN PRN OU DRY EYE; Start at 04:30 Mirtazapine (Remeron) 7.5 mg QHS PO Last administered on 06/19/18 19:39; Start 06/06/18 at 21:00 Trazodone HCl (Desyrel) 100 mg PRN QHS PRN PO INSOMNIA, MAY REPEAT X3 Last administered on 06/19/18 19:40; Start 06/06/18 at 19:00 Olanzapine (ZyPREXA ZYDIS) 5 mg PRN Q2HR PRN PO PSYCHOSIS Last administered on 06/17/18 22:09; Start 06/07/18 at 14:00 Haloperidol (Haldol) 5 mg HS PO ; Start 06/07/18 at 21:00; Stop 06/07/18 at 21: 00; Status DC Haloperidol Lactate (Haldol) 5 mg DAILY IM Last administered on 06/09/18at 07:51 ; Start 06/07/18 at 19:15; Stop 06/09/18 at 09:41; Status DC Estradiol (Estrace) 1 speedy QMTH VG ; Start 06/11/18 at 21:00; Stop 06/18/18 at 11 :41; Status DC Haloperidol Lactate (Haldol) 5 mg 1X ONCE IM Last administered on 06/09/18at 09 :43; Start 06/09/18 at 09:45; Stop 06/09/18 at 09:46; Status DC Haloperidol Lactate (Haldol) 10 mg DAILY IM Last administered on 06/14/18at 08: 40; Start 06/10/18 at 09:00; Stop 06/14/18 at 13:06; Status DC Hydroxyzine HCl (Atarax) 50 mg 1X ONCE PO Last administered on 06/09/18at 17:26 ; Start 06/09/18 at 17:15; Stop 06/09/18 at 17:24; Status DC Hydroxyzine HCl (Atarax) 50 mg 1X ONCE PO Last administered on 06/09/18at 18:29 ; Start 06/09/18 at 18:25; Stop 06/09/18 at 18:26; Status DC Benztropine Mesylate (Cogentin) 1 mg QHS PO Last administered on 06/19/18at 19:38 ; Start 06/10/18 at 21:00 [place] Carbonate 300 mg HS PO Last administered on 06/13/18at 19:20; Start at 21:00; Stop 06/14/18 at 13:06; Status DC Hydroxyzine HCl (Atarax) 50 mg PRN Q2HR PRN PO SEDATION Last administered on at 11:22; Start 06/11/18 at 15:00 Trazodone HCl (Desyrel) 100 mg PRN 1X PRN PO insomnia Last administered on 06/12at 04:16; Start 06/12/18 at 03:15 Lorazepam (Ativan Intensol) 0.5 mg 1X ONCE SL Last administered on 06/13/18at 21:51; Start 06/13/18 at 18:15; Stop 06/13/18 at 18:16; Status DC Lorazepam (Ativan) 1 mg DAILY IM Last administered on 06/18/18at 20:10; Start at 09:50 Haloperidol Lactate (Haldol) 5 mg DAILY IM Last administered on 06/16/18at 09:54 ; Start 06/15/18 at 09:00; Stop 06/18/18 at 10:45; Status DC [place] Carbonate 300 mg BID PO Last administered on 06/18/18at 08:14; Start at 21:00; Stop 06/18/18 at 15:03; Status DC Clozapine (Clozaril) 300 mg DAILY PO Last administered on 06/19/18at 07:53; Start 06/16/18 at 09:00 Clozapine (Clozaril) 25 mg DAILY PO Last administered on 06/19/18at 07:52; Start 06/16/18 at 09:00 Estradiol (Estrace) 1 speedy MoTh VG Last administered on 06/18/18at 20:05; Start 06/18/18 at 21:00 [place] Carbonate 300 mg DAILY PO Last administered on 06/19/18at 07:55; Start at 09:00 [place] Citrate 5.3 meq QHS PO Last administered on 06/19/18at 19:40; Start 06/18 at 21:00 Levothyroxine Sodium (Synthroid) 75 mcg 1X ONCE PO Last administered on 07:53; Start 06/19/18 at 07:00; Stop 06/19/18 at 07:01; Status DC Active Scripts Active Reported Hydroxyzine Hcl 10 Mg Tablet 10 Mg PO PRN Q2HR PRN Clozapine 100 Mg Tablet 1 Tab PO 1700 Remeron (Mirtazapine) 15 Mg Tablet 1 Tab PO 1700 Depakote Er (Divalproex Sodium) 500 Mg Tab.er.24h 750 Mg PO 1700 Nystatin 15 Gm Powder 1 Speedy TP BID Lidocaine 1 Each Adh..patch 1 Each TP DAILY Lotrimin Af (Clotrimazole) 12 Gm Cream..g. 1 Speedy TP BID PRN Sorbitol (Sorbitol Solution) 1 Ml Solution 30 Ml PO PRN DAILY PRN Trazodone Hcl 50 Mg Tablet 100 Mg PO QHS PRN [place]-128 (Sodium Chloride) 3.5 Gm Oint...g. 1 Speedy OP HS Lipitor (Atorvastatin Calcium) 20 Mg Tablet 20 Mg PO DAILYWSUP Levothyroxine Sodium 75 Mcg Tablet 75 Mcg PO DAILYAC Estrace (Estradiol) 42.5 Gm Cream.appl 1 Speedy VG 2X WEEK Q FRI, URS Endocet 10-325 Mg Tablet (Oxycodone Hcl/Acetaminophen) 1 Each Tablet 1 Each PO PRN Q6HRS PRN Vitamin B-12 (Cyanocobalamin (Vitamin B-12)) 1,000 Mcg Tablet 1,000 Mcg PO DAILY Maalox Advanced Suspension (Mag Hydrox/Aluminum Hyd/Simeth) 355 Ml Oral.susp 15 Ml PO PRN AFTMEALHC PRN Analgesic [place] (Methyl Salicylate/Menthol) 28 Gm Oint...g. 1 Speedy TP PRN QID PRN Risperidone 1 Mg Tablet 1.5 Mg PO 1700 Refresh Classic Eye Drops (Polyvinyl Alcohol/Povidone/Pf) 1 Each Droperette 1 Each OU TID PRN Trazodone Hcl 50 Mg Tablet 100 Mg PO DAILYWSUP Norvasc (Amlodipine Besylate) 5 Mg Tablet 10 Mg PO DAILY Miralax (Polyethylene Glycol 3350) 17 Gm Powd.pack 17 Gm PO DAILY Milk Of Magnesia (Magnesium Hydroxide) 2,400 Mg/10 Ml Oral.susp 2,400 Mg PO PRN DAILY PRN Tylenol (Acetaminophen) 325 Mg Tablet 650 Mg PO PRN Q6HRS PRN I have reviewed the current psychotropics carefully including drug interactions. Risk benefit ratio favors no change other than as noted in my dictated progress note. 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
[2018-06-20] MEDS: traZODone 100 MG TABLET. PO PRN ×2 (01:30→19:13)
[2018-06-20] MEDS: hydrOXYzine HCL 25 MG TABLET PO PRN (01:30)
--- NOTE | 2018-06-20 01:56 | NUR ---
Pt sitting up in room, naked during 0130 rounds. This nurse entered room to speak with pt, whom at this time was sitting on the bed putting on makeup. Pt was given PRN repeat Trazodone. Pt irritable, snarky, and demanding. This nurse asked pt if she needed anything else, pt then gestured towards her closet and stated "Yeah! I need some damn clothes!" This nurse told pt she didn't have to yell. Pt was then given a cup of ice water. Pt took a drink and yelled, "I wanted ice water!" This nurse told pt that she was given ice water and that she didn't need to yell at people that are trying to help her. Pt was then given PRN Hydroxyzine as ordered for agitation.
--- NOTE | 2018-06-20 04:04 | PN ---
DATE: 06/18/2018 PSYCHIATRIC PROGRESS NOTE This late entry 06/18/2018 covers elements, not covered in my initial note. SUBJECTIVE: I met with the patient at length in the evening and staffed at treatment team meeting with the entire team in the morning. The patient slept 6-1/4 hours previous night. She refused her medications previous night, received Ativan IM previous night and Atarax for her anxiety, mood lability, manic, psychotic symptoms. REVIEW OF SYSTEMS: No CV, , pulmonary, eye, ENT system symptoms on review. Reliability poor. She is still impulsive, aggressive, disruptive, somewhat volatile, but perhaps a little better than before. MENTAL STATUS EXAM: Oriented to herself and situation. Speech coherent, rapid at times. Abstraction fair, computation impaired, language function intact, attention span short. Mood and affect remains labile, manic, grandiose, less so than before. LABORATORY DATA: Reviewed. IMPRESSION: Bipolar 1 disorder, manic with psychotic features. Rest unchanged. PLAN: No change from initial note. Check lithium level, adjust to reach therapeutic level. MAN Rox WATT MD DR: SANCHEZ/fredrick JOB#: [id number] / [id number]
--- NOTE | 2018-06-20 05:03 | PN ---
DATE: 06/17/2018 This late entry for 06/17/2018 covers elements not covered in my initial note. SUBJECTIVE: I met with the patient in the evening. The patient slept 7-1/4 hours previous night. 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 She was slapping and hitting at staff, but this was less so than before. At another time, she was screaming. Atarax was given. [place] level is to be checked on 06/18/2018. We will adjust the lithium thereafter. She has not received IM Ativan or Haldol on 06/17/2018. REVIEW OF SYSTEMS: No CV, , pulmonary, eye, ENT system symptoms on review. Reliability varies. MENTAL STATUS EXAM: Oriented to herself and situation. Speech coherent, rapid at times. Abstraction fair, computation impaired, language function intact, attention span short. Mood and affect remains quite labile, manic, grandiose, psychotic. LABORATORY DATA: Reviewed. IMPRESSION: Bipolar 1 disorder, mixed with psychotic features; anxiety disorder, unspecified; impulse control disorder, unspecified. Rest unchanged from initial note. PLAN: Continue current psychotropics. Adjust lithium to reach therapeutic level. MAN Rox WATT MD DR: SANCHEZ/fredrick JOB#: [id number] / [id number]
[2018-06-20] MEDS: LEVOTHYROXINE 75 MCG TABLET PO SCH (06:04)
[2018-06-20 06:23] VITALS: BP 121/78
[2018-06-20] MEDS: prednisoLONE ACETATE 1% OPHTH SUSPENSION 5ML BOTTLE. OD SCH (09:10)
[2018-06-20] MEDS: LITHIUM CARBONATE 300 MG TABLET PO SCH (09:10)
[2018-06-20] MEDS: FUROSEMIDE 20 MG TABLET PO SCH (09:11)
[2018-06-20] MEDS: amLODIPine BESYLATE 5 MG TABLET PO SCH (09:11)
[2018-06-20] MEDS: POLYETHYLENE GLYCOL 3350 17 GM PACKET. PO SCH (09:11)
[2018-06-20] MEDS: cloZAPine 100 MG TABLET PO SCH (09:11)
[2018-06-20] MEDS: cloZAPine 25 MG TABLET PO SCH (09:11)
[2018-06-20] MEDS: CYANOCOBALAMIN (VITAMIN B-12) 1,000 MCG TABLET. PO SCH (09:11)
--- NOTE | 2018-06-20 13:04 | NUR ---
Pts behaviors have improved from last week. Pt is less demanding, less hyperverbal, yells less. Pt has not been combative or aggressive thus far this shift. She has not refused medication thus far this shift. Pt was compliant with her assessment.
[2018-06-20 16:11] VITALS: BP 128/87
[2018-06-20] MEDS: MIRTAZAPINE 7.5 MG TABLET. PO SCH (19:12)
[2018-06-20] MEDS: ACETAMINOPHEN 325 MG TABLET PO PRN (19:13)
[2018-06-20] MEDS: DIVALPROEX ER 500 MG TAB.ER.24H PO SCH (19:13)
[2018-06-20] MEDS: ATORVASTATIN CALCIUM 20 MG TABLET PO SCH (19:13)
[2018-06-20] MEDS: BENZTROPINE MESYLATE 1 MG TABLET PO SCH (19:13)
[2018-06-20] MEDS: LITHIUM CITRATE PO SCH (19:14)
--- NOTE | 2018-06-20 22:28 | PDOC ---
Exam Note: Julian Note: Please also refer to the separate dictated note~for this date of service dictated separately.~Patient seen individually. Discussed the patient with Nursing staff reviewed the chart.~Reviewed interim history and current functioning. Reviewed vital signs,~Labs/ Radiology~and current medications noted below. Continue current treatment with the changes noted in the dictated addendum note Assessment: Vital Signs: Vital Signs Date Time Temp Pulse Resp B/P (MAP) Pulse Ox O2 Delivery O2 Flow Rate FiO2 06/20/18 16:11 97.2 98 22 128/87 (101) 97 Room Air I&O Intake and Output 06/20/18 07:01 Intake Total 480 ml Balance 480 ml Intake Oral 480 ml Current Medications: Meds: Current Medications Acetaminophen (Tylenol) 650 mg PRN Q6HRS PRN PO PAIN / TEMP Last administered on 06/20/18 19:13; Start 06/06/18 at 04:15 Multi-Ingredient Ointment (Analgesic [place]) 1 speedy PRN QID PRN TP MUSCLE PAIN Last administered on 06/07/18at 22:53; Start 06/06/18 at 04:15 Al Hydroxide/Mg Hydroxide (Mylanta Plus Xs) 15 ml PRN AFTMEALHC PRN PO DYSPEPSIA; Start 06/06/18 at 04:15 Magnesium Hydroxide (Milk Of Magnesia) 2,400 mg PRN QHS PRN PO CONSTIPATION; Start 06/06/18 at 04:15 Amlodipine Besylate (Norvasc) 5 mg DAILY PO Last administered on 06/20/18 09:11 ; Start 06/06/18 at 09:00 Atorvastatin Calcium (Lipitor) 20 mg QHS PO Last administered on 06/20/18 19:13 ; Start 06/06/18 at 21:00 Clozapine (Clozaril) 100 mg [id number] PO Last administered on 06/15/18 07:44; Start 06/06/18 at 09:00; Stop 06/15/18 at 18:36; Status DC Clozapine (Clozaril) 50 mg [id number] PO Last administered on 06/15/18 07:44; Start 06/06/18 at 09:00; Stop 06/15/18 at 18:36; Status DC Cyanocobalamin (Vitamin B-12) 1,000 mcg DAILY PO Last administered on 06/20/18 09:11; Start 06/06/18 at 09:00 Divalproex Sodium (Depakote Er) 1,000 mg QHS PO Last administered on 06/20/18 19:13; Start 06/06/18 at 21:00 Vitamin D (Vitamin D3) 50,000 unit WEEKLY PO Last administered on 06/15/18 07: 44; Start 06/07/18 at 09:00 Estradiol (Estrace) 1 speedy QMTH VG Last administered on 06/08/18 15:41; Start 06/08/18 at 16:00; Stop 06/08/18 at 21:19; Status DC Furosemide (Lasix) 20 mg DAILY PO Last administered on 06/20/18 09:11; Start at 09:00 Levothyroxine Sodium (Synthroid) 75 mcg DAILY06 PO Last administered on 06:04; Start 06/06/18 at 06:00 Melatonin 6 mg PRN QHS PRN PO INSOMNIA Last administered on 06/13/18 22:23; Start 06/06/18 at 04:30 Magnesium Hydroxide (Milk Of Magnesia) 2,400 mg PRN DAILY PRN PO CONSTIPATION; Start 06/06/18 at 04:30; Status UNV Polyethylene Glycol (miraLAX) 17 gm DAILY PO Last administered on 06/20/18 09: 11; Start 06/06/18 at 09:00 Prednisolone Acetate (Pred Forte) 1 drop DAILY OD Last administered on 09:10; Start 06/06/18 at 09:00 Artificial Tears (Refresh Classic) 1 drop TID PRN PRN OU DRY EYE; Start at 04:30 Mirtazapine (Remeron) 7.5 mg QHS PO Last administered on 06/20/18 19:12; Start 06/06/18 at 21:00 Trazodone HCl (Desyrel) 100 mg PRN QHS PRN PO INSOMNIA, MAY REPEAT X3 Last administered on 06/20/18 19:13; Start 06/06/18 at 19:00 Olanzapine (ZyPREXA ZYDIS) 5 mg PRN Q2HR PRN PO PSYCHOSIS Last administered on 06/17/18 22:09; Start 06/07/18 at 14:00 Haloperidol (Haldol) 5 mg HS PO ; Start 06/07/18 at 21:00; Stop 06/07/18 at 21: 00; Status DC Haloperidol Lactate (Haldol) 5 mg DAILY IM Last administered on 06/09/18at 07:51 ; Start 06/07/18 at 19:15; Stop 06/09/18 at 09:41; Status DC Estradiol (Estrace) 1 speedy QMTH VG ; Start 06/11/18 at 21:00; Stop 06/18/18 at 11 :41; Status DC Haloperidol Lactate (Haldol) 5 mg 1X ONCE IM Last administered on 06/09/18at 09 :43; Start 06/09/18 at 09:45; Stop 06/09/18 at 09:46; Status DC Haloperidol Lactate (Haldol) 10 mg DAILY IM Last administered on 06/14/18at 08: 40; Start 06/10/18 at 09:00; Stop 06/14/18 at 13:06; Status DC Hydroxyzine HCl (Atarax) 50 mg 1X ONCE PO Last administered on 06/09/18at 17:26 ; Start 06/09/18 at 17:15; Stop 06/09/18 at 17:24; Status DC Hydroxyzine HCl (Atarax) 50 mg 1X ONCE PO Last administered on 06/09/18at 18:29 ; Start 06/09/18 at 18:25; Stop 06/09/18 at 18:26; Status DC Benztropine Mesylate (Cogentin) 1 mg QHS PO Last administered on 06/20/18at 19:13 ; Start 06/10/18 at 21:00 [place] Carbonate 300 mg HS PO Last administered on 06/13/18at 19:20; Start at 21:00; Stop 06/14/18 at 13:06; Status DC Hydroxyzine HCl (Atarax) 50 mg PRN Q2HR PRN PO SEDATION Last administered on 06/20/18at 01:30; Start 06/11/18 at 15:00 Trazodone HCl (Desyrel) 100 mg PRN 1X PRN PO insomnia Last administered on 06/12at 04:16; Start 06/12/18 at 03:15 Lorazepam (Ativan Intensol) 0.5 mg 1X ONCE SL Last administered on 06/13/18at 21:51; Start 06/13/18 at 18:15; Stop 06/13/18 at 18:16; Status DC Lorazepam (Ativan) 1 mg DAILY IM Last administered on 06/18/18at 20:10; Start at 09:50 Haloperidol Lactate (Haldol) 5 mg DAILY IM Last administered on 06/16/18at 09:54 ; Start 06/15/18 at 09:00; Stop 06/18/18 at 10:45; Status DC [place] Carbonate 300 mg BID PO Last administered on 06/18/18 08:14; Start at 21:00; Stop 06/18/18 at 15:03; Status DC Clozapine (Clozaril) 300 mg DAILY PO Last administered on 06/20/18 09:11; Start 06/16/18 at 09:00 Clozapine (Clozaril) 25 mg DAILY PO Last administered on 06/20/18 09:11; Start 06/16/18 at 09:00 Estradiol (Estrace) 1 speedy MoTh VG Last administered on 06/18/18at 20:05; Start 06/18/18 at 21:00 [place] Carbonate 300 mg DAILY PO Last administered on 06/20/18 09:10; Start at 09:00 [place] Citrate 5.3 meq QHS PO Last administered on 06/20/18 19:14; Start 06/18 at 21:00 Levothyroxine Sodium (Synthroid) 75 mcg 1X ONCE PO Last administered on 07:53; Start 06/19/18 at 07:00; Stop 06/19/18 at 07:01; Status DC Active Scripts Active Reported Hydroxyzine Hcl 10 Mg Tablet 10 Mg PO PRN Q2HR PRN Clozapine 100 Mg Tablet 1 Tab PO 1700 Remeron (Mirtazapine) 15 Mg Tablet 1 Tab PO 1700 Depakote Er (Divalproex Sodium) 500 Mg Tab.er.24h 750 Mg PO 1700 Nystatin 15 Gm Powder 1 Speedy TP BID Lidocaine 1 Each Adh..patch 1 Each TP DAILY Lotrimin Af (Clotrimazole) 12 Gm Cream..g. 1 Speedy TP BID PRN Sorbitol (Sorbitol Solution) 1 Ml Solution 30 Ml PO PRN DAILY PRN Trazodone Hcl 50 Mg Tablet 100 Mg PO QHS PRN [place]mer-128 (Sodium Chloride) 3.5 Gm Oint...g. 1 Speedy OP HS Lipitor (Atorvastatin Calcium) 20 Mg Tablet 20 Mg PO DAILYWSUP Levothyroxine Sodium 75 Mcg Tablet 75 Mcg PO DAILYAC Estrace (Estradiol) 42.5 Gm Cream.appl 1 Speedy VG 2X WEEK Q MON, THURS Endocet 10-325 Mg Tablet (Oxycodone Hcl/Acetaminophen) 1 Each Tablet 1 Each PO PRN Q6HRS PRN Vitamin B-12 (Cyanocobalamin (Vitamin B-12)) 1,000 Mcg Tablet 1,000 Mcg PO DAILY Maalox Advanced Suspension (Mag Hydrox/Aluminum Hyd/Simeth) 355 Ml Oral.susp 15 Ml PO PRN AFTMEALHC PRN Analgesic [place] (Methyl Salicylate/Menthol) 28 Gm Oint...g. 1 Speedy TP PRN QID PRN Risperidone 1 Mg Tablet 1.5 Mg PO 1700 Refresh Classic Eye Drops (Polyvinyl Alcohol/Povidone/Pf) 1 Each Droperette 1 Each OU TID PRN Trazodone Hcl 50 Mg Tablet 100 Mg PO DAILYWSUP Norvasc (Amlodipine Besylate) 5 Mg Tablet 10 Mg PO DAILY Miralax (Polyethylene Glycol 3350) 17 Gm Powd.pack 17 Gm PO DAILY Milk Of Magnesia (Magnesium Hydroxide) 2,400 Mg/10 Ml Oral.susp 2,400 Mg PO PRN DAILY PRN Tylenol (Acetaminophen) 325 Mg Tablet 650 Mg PO PRN Q6HRS PRN I have reviewed the current psychotropics carefully including drug interactions. Risk benefit ratio favors no change other than as noted in my dictated progress note. 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
--- NOTE | 2018-06-20 22:51 | NUR ---
Pt walking in hallway at shift change. Pt calm, has not had any episodes of yelling out thus far this shift. Pt cooperative with shower and cares this evening, compliant with assessment and medications. Pt spoke with ray on phone this evening. Addendum: 06/20/18 at 2305 by SYDNEE TORRES RN PRN Tylenol administered this evening for c/o back pain.
[2018-06-21 06:09] VITALS: BP 122/78
[2018-06-21] MEDS: LEVOTHYROXINE 75 MCG TABLET PO SCH (06:26)
[2018-06-21] MEDS: cloZAPine 100 MG TABLET PO SCH (08:01)
[2018-06-21] MEDS: POLYETHYLENE GLYCOL 3350 17 GM PACKET. PO SCH (08:01)
[2018-06-21] MEDS: FUROSEMIDE 20 MG TABLET PO SCH (08:01)
[2018-06-21] MEDS: prednisoLONE ACETATE 1% OPHTH SUSPENSION 5ML BOTTLE. OD SCH (08:01)
[2018-06-21] MEDS: cloZAPine 25 MG TABLET PO SCH (08:01)
[2018-06-21] MEDS: amLODIPine BESYLATE 5 MG TABLET PO SCH (08:02)
[2018-06-21] MEDS: CHOLECALCIFEROL (VITAMIN D3) 50,000 UNIT CAPSULE PO SCH (08:02)
[2018-06-21] MEDS: CYANOCOBALAMIN (VITAMIN B-12) 1,000 MCG TABLET. PO SCH (08:02)
[2018-06-21 08:21] LABS: BASO % 1 % (0-3); EOS # 0.2 x10^3/uL (0.0-0.7); EOS % 5 % (0-3); HEMATOCRIT 38.2 % (36.0-47.0); HEMOGLOBIN 12.7 g/dL (12.0-15.5); LYMPH # 1.1 x10^3/uL (1.0-4.8); LYMPH % 23 % (24-48); MEAN CORPUSCULAR HEMOGLOBIN 29 pg (25-35); MEAN CORPUSCULAR HGB CONC 33 g/dL (31-37); MEAN CORPUSCULAR VOLUME 86 fL (79-100); MONO # 0.6 x10^3/uL (0.0-1.1); MONO % 13 % (0-9); NEUT # 2.7 x10^3uL (1.8-7.7); NEUT % 58 % (31-73); PLATELET COUNT 211 x10^3/uL (140-400); RED BLOOD COUNT 4.45 x10^6/uL (3.50-5.40); RED CELL DISTRIBUTION WIDTH 15.8 % (11.5-14.5); WHITE BLOOD COUNT 4.7 x10^3/uL (4.0-11.0)
[2018-06-21 08:39] LABS: ALBUMIN 3.3 g/dL (3.4-5.0); ALBUMIN/GLOBULIN RATIO 0.8 (1.0-1.7); CALCIUM 9.7 mg/dL (8.5-10.1); CREATININE 1.1 mg/dL (0.6-1.0); GFR 49.2; TOTAL BILIRUBIN 0.4 mg/dL (0.2-1.0); TOTAL PROTEIN 7.3 g/dL (6.4-8.2)
--- NOTE | 2018-06-21 10:08 | NUR ---
Pt has been calm, cooperative, compliant. No agitation or aggression thus far this shift. Pt as asked politely for things. She is able to focus on tasks and is med compliant.
[2018-06-21 16:17] VITALS: BP 122/71
[2018-06-21] MEDS: LITHIUM CARBONATE 300 MG TABLET PO SCH (17:49)
[2018-06-21] MEDS: LITHIUM CITRATE PO SCH (21:56)
[2018-06-21] MEDS: BENZTROPINE MESYLATE 1 MG TABLET PO SCH (21:57)
[2018-06-21] MEDS: DIVALPROEX ER 500 MG TAB.ER.24H PO SCH (21:57)
[2018-06-21] MEDS: ATORVASTATIN CALCIUM 20 MG TABLET PO SCH (21:57)
[2018-06-21] MEDS: MIRTAZAPINE 7.5 MG TABLET. PO SCH (21:57)
--- NOTE | 2018-06-21 22:30 | PDOC ---
Exam Note: Julian Note: Please also refer to the separate dictated note~for this date of service dictated separately.~Patient seen individually. Discussed the patient with Nursing staff reviewed the chart.~Reviewed interim history and current functioning. Reviewed vital signs,~Labs/ Radiology~and current medications noted below. Continue current treatment with the changes noted in the dictated addendum note Assessment: Vital Signs: Vital Signs Date Time Temp Pulse Resp B/P (MAP) Pulse Ox O2 Delivery O2 Flow Rate FiO2 06/21/18 16:17 98.1 95 20 122/71 (88) 92 Room Air I&O Intake and Output 06/21/18 07:01 Intake Total 720 ml Balance 720 ml Intake Oral 720 ml Labs: Laboratory Tests Test 06/21/18 08:00 White Blood Count 4.7 x10^3/uL (4.0-11.0) Red Blood Count 4.45 x10^6/uL (3.50-5.40) Hemoglobin 12.7 g/dL (12.0-15.5) Hematocrit 38.2 % (36.0-47.0) Mean Corpuscular Volume 86 fL (79-100) Mean Corpuscular Hemoglobin 29 pg (25-35) Mean Corpuscular Hemoglobin Concent 33 g/dL (31-37) Red Cell Distribution Width 15.8 % (11.5-14.5) H Platelet Count 211 x10^3/uL (140-400) Neutrophils (%) (Auto) 58 % (31-73) Lymphocytes (%) (Auto) 23 % (24-48) L Monocytes (%) (Auto) 13 % (0-9) H Eosinophils (%) (Auto) 5 % (0-3) H Basophils (%) (Auto) 1 % (0-3) Neutrophils # (Auto) 2.7 x10^3uL (1.8-7.7) Lymphocytes # (Auto) 1.1 x10^3/uL (1.0-4.8) Monocytes # (Auto) 0.6 x10^3/uL (0.0-1.1) Eosinophils # (Auto) 0.2 x10^3/uL (0.0-0.7) Basophils # (Auto) 0.0 x10^3/uL (0.0-0.2) Sodium Level 138 mmol/L (136-145) Potassium Level 4.0 mmol/L (3.5-5.1) Chloride Level 102 mmol/L (98-107) Carbon Dioxide Level 28 mmol/L (21-32) Anion Gap 8 (6-14) Blood Urea Nitrogen 15 mg/dL (7-20) Creatinine 1.1 mg/dL (0.6-1.0) H Estimated GFR (Cockcroft-Gault) 49.2 BUN/Creatinine Ratio 14 (6-20) Glucose Level 146 mg/dL (70-99) H Calcium Level 9.7 mg/dL (8.5-10.1) Total Bilirubin 0.4 mg/dL (0.2-1.0) Aspartate Amino Transferase (AST) 23 U/L (15-37) Alanine Aminotransferase (ALT) 23 U/L (14-59) Alkaline Phosphatase 93 U/L (46-116) Total Protein 7.3 g/dL (6.4-8.2) Albumin 3.3 g/dL (3.4-5.0) L Albumin/Globulin Ratio 0.8 (1.0-1.7) L Current Medications: Meds: Current Medications Acetaminophen (Tylenol) 650 mg PRN Q6HRS PRN PO PAIN / TEMP Last administered on 06/20/18 19:13; Start 06/06/18 at 04:15 Multi-Ingredient Ointment (Analgesic [place]) 1 speedy PRN QID PRN TP MUSCLE PAIN Last administered on 06/07/18 22:53; Start 06/06/18 at 04:15 Al Hydroxide/Mg Hydroxide (Mylanta Plus Xs) 15 ml PRN AFTMEALHC PRN PO DYSPEPSIA; Start 06/06/18 at 04:15 Magnesium Hydroxide (Milk Of Magnesia) 2,400 mg PRN QHS PRN PO CONSTIPATION; Start 06/06/18 at 04:15 Amlodipine Besylate (Norvasc) 5 mg DAILY PO Last administered on 06/21/18 08:02 ; Start 06/06/18 at 09:00 Atorvastatin Calcium (Lipitor) 20 mg QHS PO Last administered on 06/21/18 21:57 ; Start 06/06/18 at 21:00 Clozapine (Clozaril) 100 mg [id number] PO Last administered on 06/15/18 07:44; Start 06/06/18 at 09:00; Stop 06/15/18 at 18:36; Status DC Clozapine (Clozaril) 50 mg [id number] PO Last administered on 06/15/18 07:44; Start 06/06/18 at 09:00; Stop 06/15/18 at 18:36; Status DC Cyanocobalamin (Vitamin B-12) 1,000 mcg DAILY PO Last administered on 06/21/18 08:02; Start 06/06/18 at 09:00 Divalproex Sodium (Depakote Er) 1,000 mg QHS PO Last administered on 06/21/18 21:57; Start 06/06/18 at 21:00 Vitamin D (Vitamin D3) 50,000 unit WEEKLY PO Last administered on 06/21/18 08: 02; Start 06/07/18 at 09:00 Estradiol (Estrace) 1 speedy QMTH VG Last administered on 06/08/18 15:41; Start 06/08/18 at 16:00; Stop 06/08/18 at 21:19; Status DC Furosemide (Lasix) 20 mg DAILY PO Last administered on 06/21/18 08:01; Start at 09:00 Levothyroxine Sodium (Synthroid) 75 mcg DAILY06 PO Last administered on 06:26; Start 06/06/18 at 06:00 Melatonin 6 mg PRN QHS PRN PO INSOMNIA Last administered on 06/13/18 22:23; Start 06/06/18 at 04:30 Magnesium Hydroxide (Milk Of Magnesia) 2,400 mg PRN DAILY PRN PO CONSTIPATION; Start 06/06/18 at 04:30; Status UNV Polyethylene Glycol (miraLAX) 17 gm DAILY PO Last administered on 06/21/18 08: 01; Start 06/06/18 at 09:00 Prednisolone Acetate (Pred Forte) 1 drop DAILY OD Last administered on 08:01; Start 06/06/18 at 09:00 Artificial Tears (Refresh Classic) 1 drop TID PRN PRN OU DRY EYE; Start at 04:30 Mirtazapine (Remeron) 7.5 mg QHS PO Last administered on 06/21/18 21:57; Start 06/06/18 at 21:00 Trazodone HCl (Desyrel) 100 mg PRN QHS PRN PO INSOMNIA, MAY REPEAT X3 Last administered on 06/20/18at 19:13; Start 06/06/18 at 19:00 Olanzapine (ZyPREXA ZYDIS) 5 mg PRN Q2HR PRN PO PSYCHOSIS Last administered on 06/17/18at 22:09; Start 06/07/18 at 14:00 Haloperidol (Haldol) 5 mg HS PO ; Start 06/07/18 at 21:00; Stop 06/07/18 at 21: 00; Status DC Haloperidol Lactate (Haldol) 5 mg DAILY IM Last administered on 06/09/18at 07:51 ; Start 06/07/18 at 19:15; Stop 06/09/18 at 09:41; Status DC Estradiol (Estrace) 1 speedy QMTH VG ; Start 06/11/18 at 21:00; Stop 06/18/18 at 11 :41; Status DC Haloperidol Lactate (Haldol) 5 mg 1X ONCE IM Last administered on 06/09/18at 09 :43; Start 06/09/18 at 09:45; Stop 06/09/18 at 09:46; Status DC Haloperidol Lactate (Haldol) 10 mg DAILY IM Last administered on 06/14/18at 08: 40; Start 06/10/18 at 09:00; Stop 06/14/18 at 13:06; Status DC Hydroxyzine HCl (Atarax) 50 mg 1X ONCE PO Last administered on 06/09/18at 17:26 ; Start 06/09/18 at 17:15; Stop 06/09/18 at 17:24; Status DC Hydroxyzine HCl (Atarax) 50 mg 1X ONCE PO Last administered on 06/09/18at 18:29 ; Start 06/09/18 at 18:25; Stop 06/09/18 at 18:26; Status DC Benztropine Mesylate (Cogentin) 1 mg QHS PO Last administered on 06/21/18at 21:57 ; Start 06/10/18 at 21:00 [place] Carbonate 300 mg HS PO Last administered on 06/13/18at 19:20; Start at 21:00; Stop 06/14/18 at 13:06; Status DC Hydroxyzine HCl (Atarax) 50 mg PRN Q2HR PRN PO SEDATION Last administered on 01:30; Start 06/11/18 at 15:00 Trazodone HCl (Desyrel) 100 mg PRN 1X PRN PO insomnia Last administered on 06/12 04:16; Start 06/12/18 at 03:15 Lorazepam (Ativan Intensol) 0.5 mg 1X ONCE SL Last administered on 06/13/18 21:51; Start 06/13/18 at 18:15; Stop 06/13/18 at 18:16; Status DC Lorazepam (Ativan) 1 mg DAILY IM Last administered on 06/18/18 20:10; Start at 09:50 Haloperidol Lactate (Haldol) 5 mg DAILY IM Last administered on 06/16/18 09:54 ; Start 06/15/18 at 09:00; Stop 06/18/18 at 10:45; Status DC [place] Carbonate 300 mg BID PO Last administered on 06/18/18 08:14; Start at 21:00; Stop 06/18/18 at 15:03; Status DC Clozapine (Clozaril) 300 mg DAILY PO Last administered on 06/21/18 08:01; Start 06/16/18 at 09:00 Clozapine (Clozaril) 25 mg DAILY PO Last administered on 06/21/18 08:01; Start 06/16/18 at 09:00 Estradiol (Estrace) 1 speedy MoTh VG Last administered on 06/18/18 20:05; Start 06/18/18 at 21:00 [place] Carbonate 300 mg DAILY PO Last administered on 06/21/18 17:49; Start at 09:00 [place] Citrate 5.3 meq QHS PO Last administered on 06/21/18 21:56; Start 06/18 at 21:00 Levothyroxine Sodium (Synthroid) 75 mcg 1X ONCE PO Last administered on 07:53; Start 06/19/18 at 07:00; Stop 06/19/18 at 07:01; Status DC Active Scripts Active Reported Hydroxyzine Hcl 10 Mg Tablet 10 Mg PO PRN Q2HR PRN Clozapine 100 Mg Tablet 1 Tab PO 1700 Remeron (Mirtazapine) 15 Mg Tablet 1 Tab PO 1700 Depakote Er (Divalproex Sodium) 500 Mg Tab.er.24h 750 Mg PO 1700 Nystatin 15 Gm Powder 1 Speedy TP BID Lidocaine 1 Each Adh..patch 1 Each TP DAILY Lotrimin Af (Clotrimazole) 12 Gm Cream..g. 1 Speedy TP BID PRN Sorbitol (Sorbitol Solution) 1 Ml Solution 30 Ml PO PRN DAILY PRN Trazodone Hcl 50 Mg Tablet 100 Mg PO QHS PRN [place]-128 (Sodium Chloride) 3.5 Gm Oint...g. 1 Speedy OP HS Lipitor (Atorvastatin Calcium) 20 Mg Tablet 20 Mg PO DAILYWSUP Levothyroxine Sodium 75 Mcg Tablet 75 Mcg PO DAILYAC Estrace (Estradiol) 42.5 Gm Cream.appl 1 Speedy VG 2X WEEK Q MON, URS Endocet 10-325 Mg Tablet (Oxycodone Hcl/Acetaminophen) 1 Each Tablet 1 Each PO PRN Q6HRS PRN Vitamin B-12 (Cyanocobalamin (Vitamin B-12)) 1,000 Mcg Tablet 1,000 Mcg PO DAILY Maalox Advanced Suspension (Mag Hydrox/Aluminum Hyd/Simeth) 355 Ml Oral.susp 15 Ml PO PRN AFTMEALHC PRN Analgesic [place] (Methyl Salicylate/Menthol) 28 Gm Oint...g. 1 Speedy TP PRN QID PRN Risperidone 1 Mg Tablet 1.5 Mg PO 1700 Refresh [place] Eye Drops (Polyvinyl Alcohol/Povidone/Pf) 1 Each Droperette 1 Each OU TID PRN Trazodone Hcl 50 Mg Tablet 100 Mg PO DAILYWSUP Norvasc (Amlodipine Besylate) 5 Mg Tablet 10 Mg PO DAILY Miralax (Polyethylene Glycol 3350) 17 Gm Powd.pack 17 Gm PO DAILY Milk Of Magnesia (Magnesium Hydroxide) 2,400 Mg/10 Ml Oral.susp 2,400 Mg PO PRN DAILY PRN Tylenol (Acetaminophen) 325 Mg Tablet 650 Mg PO PRN Q6HRS PRN I have reviewed the current psychotropics carefully including drug interactions. Risk benefit ratio favors no change other than as noted in my dictated progress note. 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
--- NOTE | 2018-06-21 23:58 | NUR ---
Patient asleep, woke up for medications. She was compliant and cooperative. Returned to sleep after medications were taken.
--- NOTE | 2018-06-22 01:23 | PN ---
DATE: 06/19/2018 PSYCHIATRIC PROGRESS NOTE This late entry of 06/19/2018 covers elements not covered in my initial note. SUBJECTIVE: I met with the patient in the evening. The patient slept 6-1/2 hours previous night. In the morning, she had to be in the [place] [facility] because of her anxiety, agitation, mood lability and then she was tearful at times. Later, she was trying to take her clothes off, put her makeup on. REVIEW OF SYSTEMS: No CV, , pulmonary, eye, ENT system symptoms on review. Reliability is poor. MENTAL STATUS EXAM: Oriented to herself and situation. Speech coherent, at times pressured. Abstraction fair, computation impaired, language function intact, attention span short. Mood and affect remain somewhat manic and labile at times, less so than before. LABORATORY DATA: Reviewed. IMPRESSION: Schizoaffective disorder, bipolar 1 disorder, mixed with psychotic features. Rest unchanged. PLAN: [place] level is 1.1, on lithium carbonate 300 mg twice a day. We will reduce the lithium to 300 mg in the morning, 200 mg in the evening. Check another lithium level in 2 days. Continue rest of the psychotropics unchanged from initial note. MAN Rox WATT MD DR: SANCHEZ/fredrick JOB#: [id number] / [id number]
[2018-06-22] MEDS: LEVOTHYROXINE 75 MCG TABLET PO SCH (05:52)
[2018-06-22 06:16] VITALS: BP 133/84
[2018-06-22] MEDS: prednisoLONE ACETATE 1% OPHTH SUSPENSION 5ML BOTTLE. OD SCH (07:52)
[2018-06-22] MEDS: LITHIUM CARBONATE 300 MG TABLET PO SCH (07:53)
[2018-06-22] MEDS: POLYETHYLENE GLYCOL 3350 17 GM PACKET. PO SCH (07:53)
[2018-06-22] MEDS: cloZAPine 100 MG TABLET PO SCH (07:53)
[2018-06-22] MEDS: cloZAPine 25 MG TABLET PO SCH (07:53)
[2018-06-22] MEDS: FUROSEMIDE 20 MG TABLET PO SCH (07:53)
[2018-06-22] MEDS: CYANOCOBALAMIN (VITAMIN B-12) 1,000 MCG TABLET. PO SCH (07:54)
[2018-06-22] MEDS: amLODIPine BESYLATE 5 MG TABLET PO SCH (07:54)
[2018-06-22 10:00] LABS: BASO % 1 % (0-3); EOS # 0.2 x10^3/uL (0.0-0.7); EOS % 5 % (0-3); HEMATOCRIT 37.4 % (36.0-47.0); HEMOGLOBIN 12.5 g/dL (12.0-15.5); LYMPH # 1.2 x10^3/uL (1.0-4.8); LYMPH % 26 % (24-48); MEAN CORPUSCULAR HEMOGLOBIN 29 pg (25-35); MEAN CORPUSCULAR HGB CONC 33 g/dL (31-37); MEAN CORPUSCULAR VOLUME 87 fL (79-100); MONO # 0.6 x10^3/uL (0.0-1.1); MONO % 12 % (0-9); NEUT # 2.7 x10^3uL (1.8-7.7); NEUT % 57 % (31-73); PLATELET COUNT 195 x10^3/uL (140-400); RED BLOOD COUNT 4.32 x10^6/uL (3.50-5.40); RED CELL DISTRIBUTION WIDTH 15.7 % (11.5-14.5); WHITE BLOOD COUNT 4.7 x10^3/uL (4.0-11.0)
--- NOTE | 2018-06-22 11:28 | NUR ---
Pt has been calm, cooperative, compliant. No agitation or aggression thus far this shift. Pt as asked politely for things. She is able to focus on tasks and is med compliant. Pt remember today her has an appt. with his oncologist. She is not having hallucinations or delusions.
[2018-06-22 16:18] VITALS: BP 127/82
[2018-06-22] MEDS: MIRTAZAPINE 7.5 MG TABLET. PO SCH (21:00)
[2018-06-22] MEDS: ESTRADIOL 0.01% VAGINAL CREAM 42.5GM TUBE. VG SCH (21:00)
[2018-06-22] MEDS: ATORVASTATIN CALCIUM 20 MG TABLET PO SCH (21:00)
[2018-06-22] MEDS: BENZTROPINE MESYLATE 1 MG TABLET PO SCH (21:02)
[2018-06-22] MEDS: LITHIUM CITRATE PO SCH (21:05)
[2018-06-22] MEDS: DIVALPROEX ER 500 MG TAB.ER.24H PO SCH (21:05)
--- NOTE | 2018-06-22 21:58 | PN ---
DATE: 06/20/2018 PSYCHIATRIC PROGRESS NOTE This late entry for 06/20/2018 covers elements not covered in my initial note. SUBJECTIVE: I met with the patient in the evening. The patient slept 8 hours previous night. She has had a "great day" per nursing report. This is quite dramatically different than how she has been over the past many days. She has been still somewhat withdrawn, compliant with medications, but less yelling, was compliant with showers. We will be repeating a lithium level on 06/21/2018 since we reduced the lithium by 100 mg since the initial level was 1.1 on 300 mg b.i.d. REVIEW OF SYSTEMS: No CV, , pulmonary, eye, ENT system symptoms on review, does complain of some hand tremors. MENTAL STATUS EXAM: Oriented to herself and situation. Speech coherent, less pressured. Abstraction fair, computation impaired, language function intact, attention span short. Mood and affect, lability is improved. LABORATORY DATA: Reviewed. IMPRESSION: Unchanged from initial note. PLAN: Continue as above. Check a lithium level morning of 06/21/2018, adjust further as clinically indicated. MAN Rox WATT MD DR: SANCHEZ/fredrick JOB#: [id number] / [id number]
--- NOTE | 2018-06-22 22:37 | PDOC ---
Exam Note: Julian Note: Please also refer to the separate dictated note~for this date of service dictated separately.~Patient seen individually. Discussed the patient with Nursing staff reviewed the chart.~Reviewed interim history and current functioning. Reviewed vital signs,~Labs/ Radiology~and current medications noted below. Continue current treatment with the changes noted in the dictated addendum note Assessment: Vital Signs: Vital Signs Date Time Temp Pulse Resp B/P (MAP) Pulse Ox O2 Delivery O2 Flow Rate FiO2 06/22/18 16:18 99.1 93 16 127/82 (97) 99 06/21/18 16:17 Room Air I&O Intake and Output 06/22/18 07:01 Intake Total 1320 ml Balance 1320 ml Intake Oral 1320 ml Labs: Laboratory Tests Test 06/22/18 09:23 White Blood Count 4.7 x10^3/uL (4.0-11.0) Red Blood Count 4.32 x10^6/uL (3.50-5.40) Hemoglobin 12.5 g/dL (12.0-15.5) Hematocrit 37.4 % (36.0-47.0) Mean Corpuscular Volume 87 fL (79-100) Mean Corpuscular Hemoglobin 29 pg (25-35) Mean Corpuscular Hemoglobin Concent 33 g/dL (31-37) Red Cell Distribution Width 15.7 % (11.5-14.5) H Platelet Count 195 x10^3/uL (140-400) Neutrophils (%) (Auto) 57 % (31-73) Lymphocytes (%) (Auto) 26 % (24-48) Monocytes (%) (Auto) 12 % (0-9) H Eosinophils (%) (Auto) 5 % (0-3) H Basophils (%) (Auto) 1 % (0-3) Neutrophils # (Auto) 2.7 x10^3uL (1.8-7.7) Lymphocytes # (Auto) 1.2 x10^3/uL (1.0-4.8) Monocytes # (Auto) 0.6 x10^3/uL (0.0-1.1) Eosinophils # (Auto) 0.2 x10^3/uL (0.0-0.7) Basophils # (Auto) 0.0 x10^3/uL (0.0-0.2) Current Medications: Meds: Current Medications Acetaminophen (Tylenol) 650 mg PRN Q6HRS PRN PO PAIN / TEMP Last administered on 06/20/18 19:13; Start 06/06/18 at 04:15 Multi-Ingredient Ointment (Analgesic [place]) 1 speedy PRN QID PRN TP MUSCLE PAIN Last administered on 06/07/18 22:53; Start 06/06/18 at 04:15 Al Hydroxide/Mg Hydroxide (Mylanta Plus Xs) 15 ml PRN AFTMEALHC PRN PO DYSPEPSIA; Start 06/06/18 at 04:15 Magnesium Hydroxide (Milk Of Magnesia) 2,400 mg PRN QHS PRN PO CONSTIPATION; Start 06/06/18 at 04:15 Amlodipine Besylate (Norvasc) 5 mg DAILY PO Last administered on 06/22/18 07:54 ; Start 06/06/18 at 09:00 Atorvastatin Calcium (Lipitor) 20 mg QHS PO Last administered on 06/22/18 21:00 ; Start 06/06/18 at 21:00 Clozapine (Clozaril) 100 mg [id number] PO Last administered on 06/15/18 07:44; Start 06/06/18 at 09:00; Stop 06/15/18 at 18:36; Status DC Clozapine (Clozaril) 50 mg [id number] PO Last administered on 06/15/18 07:44; Start 06/06/18 at 09:00; Stop 06/15/18 at 18:36; Status DC Cyanocobalamin (Vitamin B-12) 1,000 mcg DAILY PO Last administered on 06/22/18 07:54; Start 06/06/18 at 09:00 Divalproex Sodium (Depakote Er) 1,000 mg QHS PO Last administered on 06/22/18 21:05; Start 06/06/18 at 21:00 Vitamin D (Vitamin D3) 50,000 unit WEEKLY PO Last administered on 06/21/18 08: 02; Start 06/07/18 at 09:00 Estradiol (Estrace) 1 speedy QMTH VG Last administered on 06/08/18 15:41; Start 06/08/18 at 16:00; Stop 06/08/18 at 21:19; Status DC Furosemide (Lasix) 20 mg DAILY PO Last administered on 06/22/18 07:53; Start at 09:00 Levothyroxine Sodium (Synthroid) 75 mcg DAILY06 PO Last administered on 05:52; Start 06/06/18 at 06:00 Melatonin 6 mg PRN QHS PRN PO INSOMNIA Last administered on 06/13/18 22:23; Start 06/06/18 at 04:30 Magnesium Hydroxide (Milk Of Magnesia) 2,400 mg PRN DAILY PRN PO CONSTIPATION; Start 06/06/18 at 04:30; Status UNV Polyethylene Glycol (miraLAX) 17 gm DAILY PO Last administered on 06/22/18 07: 53; Start 06/06/18 at 09:00 Prednisolone Acetate (Pred Forte) 1 drop DAILY OD Last administered on 07:52; Start 06/06/18 at 09:00 Artificial Tears (Refresh Classic) 1 drop TID PRN PRN OU DRY EYE; Start at 04:30 Mirtazapine (Remeron) 7.5 mg QHS PO Last administered on 06/22/18 21:00; Start 06/06/18 at 21:00 Trazodone HCl (Desyrel) 100 mg PRN QHS PRN PO INSOMNIA, MAY REPEAT X3 Last administered on 06/20/18 19:13; Start 06/06/18 at 19:00 Olanzapine (ZyPREXA ZYDIS) 5 mg PRN Q2HR PRN PO PSYCHOSIS Last administered on 06/17/18 22:09; Start 06/07/18 at 14:00 Haloperidol (Haldol) 5 mg HS PO ; Start 06/07/18 at 21:00; Stop 06/07/18 at 21: 00; Status DC Haloperidol Lactate (Haldol) 5 mg DAILY IM Last administered on 06/09/18 07:51 ; Start 06/07/18 at 19:15; Stop 06/09/18 at 09:41; Status DC Estradiol (Estrace) 1 speedy QMTH VG ; Start 06/11/18 at 21:00; Stop 06/18/18 at 11 :41; Status DC Haloperidol Lactate (Haldol) 5 mg 1X ONCE IM Last administered on 06/09/18 09 :43; Start 06/09/18 at 09:45; Stop 06/09/18 at 09:46; Status DC Haloperidol Lactate (Haldol) 10 mg DAILY IM Last administered on 06/14/18 08: 40; Start 06/10/18 at 09:00; Stop 06/14/18 at 13:06; Status DC Hydroxyzine HCl (Atarax) 50 mg 1X ONCE PO Last administered on 06/09/18 17:26 ; Start 06/09/18 at 17:15; Stop 06/09/18 at 17:24; Status DC Hydroxyzine HCl (Atarax) 50 mg 1X ONCE PO Last administered on 06/09/18 18:29 ; Start 06/09/18 at 18:25; Stop 06/09/18 at 18:26; Status DC Benztropine Mesylate (Cogentin) 1 mg QHS PO Last administered on 06/21/18 21:57 ; Start 06/10/18 at 21:00; Stop 06/22/18 at 16:50; Status DC [place] Carbonate 300 mg HS PO Last administered on 06/13/18 19:20; Start at 21:00; Stop 06/14/18 at 13:06; Status DC Hydroxyzine HCl (Atarax) 50 mg PRN Q2HR PRN PO SEDATION Last administered on 01:30; Start 06/11/18 at 15:00 Trazodone HCl (Desyrel) 100 mg PRN 1X PRN PO insomnia Last administered on 06/12 04:16; Start 06/12/18 at 03:15 Lorazepam (Ativan Intensol) 0.5 mg 1X ONCE SL Last administered on 06/13/18 21:51; Start 06/13/18 at 18:15; Stop 06/13/18 at 18:16; Status DC Lorazepam (Ativan) 1 mg DAILY IM Last administered on 06/18/18 20:10; Start at 09:50 Haloperidol Lactate (Haldol) 5 mg DAILY IM Last administered on 06/16/18 09:54 ; Start 06/15/18 at 09:00; Stop 06/18/18 at 10:45; Status DC [place] Carbonate 300 mg BID PO Last administered on 06/18/18 08:14; Start at 21:00; Stop 06/18/18 at 15:03; Status DC Clozapine (Clozaril) 300 mg DAILY PO Last administered on 06/22/18 07:53; Start 06/16/18 at 09:00 Clozapine (Clozaril) 25 mg DAILY PO Last administered on 06/22/18 07:53; Start 06/16/18 at 09:00 Estradiol (Estrace) 1 speedy MoTh VG Last administered on 06/18/18at 20:05; Start 06/18/18 at 21:00 [place] Carbonate 300 mg DAILY PO Last administered on 06/22/18 07:53; Start at 09:00 [place] Citrate 5.3 meq QHS PO Last administered on 06/22/18 21:05; Start 06/18 at 21:00 Levothyroxine Sodium (Synthroid) 75 mcg 1X ONCE PO Last administered on 07:53; Start 06/19/18 at 07:00; Stop 06/19/18 at 07:01; Status DC Benztropine Mesylate (Cogentin) 1.5 mg QHS PO Last administered on 06/22/18 21: 02; Start 06/22/18 at 21:00 Active Scripts Active Reported Hydroxyzine Hcl 10 Mg Tablet 10 Mg PO PRN Q2HR PRN Clozapine 100 Mg Tablet 1 Tab PO 1700 Remeron (Mirtazapine) 15 Mg Tablet 1 Tab PO 1700 Depakote Er (Divalproex Sodium) 500 Mg Tab.er.24h 750 Mg PO 1700 Nystatin 15 Gm Powder 1 Speedy TP BID Lidocaine 1 Each Adh..patch 1 Each TP DAILY Lotrimin Af (Clotrimazole) 12 Gm Cream..g. 1 Speedy TP BID PRN Sorbitol (Sorbitol Solution) 1 Ml Solution 30 Ml PO PRN DAILY PRN Trazodone Hcl 50 Mg Tablet 100 Mg PO QHS PRN Elmer-128 (Sodium Chloride) 3.5 Gm Oint...g. 1 Speedy OP HS Lipitor (Atorvastatin Calcium) 20 Mg Tablet 20 Mg PO DAILYWSUP Levothyroxine Sodium 75 Mcg Tablet 75 Mcg PO DAILYAC Estrace (Estradiol) 42.5 Gm Cream.appl 1 Speedy VG 2X WEEK Q FRI, THURS Endocet 10-325 Mg Tablet (Oxycodone Hcl/Acetaminophen) 1 Each Tablet 1 Each PO PRN Q6HRS PRN Vitamin B-12 (Cyanocobalamin (Vitamin B-12)) 1,000 Mcg Tablet 1,000 Mcg PO DAILY Maalox Advanced Suspension (Mag Hydrox/Aluminum Hyd/Simeth) 355 Ml Oral.susp 15 Ml PO PRN AFTMEALHC PRN Analgesic [place] (Methyl Salicylate/Menthol) 28 Gm Oint...g. 1 Speedy TP PRN QID PRN Risperidone 1 Mg Tablet 1.5 Mg PO 1700 Refresh Classic Eye Drops (Polyvinyl Alcohol/Povidone/Pf) 1 Each Droperette 1 Each OU TID PRN Trazodone Hcl 50 Mg Tablet 100 Mg PO DAILYWSUP Norvasc (Amlodipine Besylate) 5 Mg Tablet 10 Mg PO DAILY Miralax (Polyethylene Glycol 3350) 17 Gm Powd.pack 17 Gm PO DAILY Milk Of Magnesia (Magnesium Hydroxide) 2,400 Mg/10 Ml Oral.susp 2,400 Mg PO PRN DAILY PRN Tylenol (Acetaminophen) 325 Mg Tablet 650 Mg PO PRN Q6HRS PRN I have reviewed the current psychotropics carefully including drug interactions. Risk benefit ratio favors no change other than as noted in my dictated progress note. 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
--- NOTE | 2018-06-22 23:27 | NUR ---
Nursing Note The patient was located in her room laying in bed when approached for her interview and medication pass. The patient was compliant with her medications and took them whole and refused her Estrace. The patient was compliant and appropriate during her interview. The patient is currently sleeping in her room.
--- NOTE | 2018-06-23 03:20 | PN ---
DATE: 06/21/2018 This late entry for 06/21/2018 covers elements not covered in my initial note. SUBJECTIVE: I met with the patient in the evening. The patient's lithium level is 0.8 and she slept 8-1/2 hours previous night, doing quite a bit better. She is still somewhat manic, but much less psychotic, much more redirectable, able to sit in the dining room for meals. REVIEW OF SYSTEMS: No CV, , pulmonary, eye, ENT system symptoms on review. MENTAL STATUS EXAM: Oriented to herself and situation. Speech is coherent. Does complain of some drooling despite Cogentin 1 mg at bedtime. Abstraction fair, computation impaired, language function intact. Attention span improved. Mood and affect are improved. LABORATORY DATA: Reviewed. IMPRESSION: Unchanged from initial note. PLAN: No change from initial note. We will repeat lithium level. Continue rest of the psychotropics unchanged. Follow labs for the Clozaril. KIERSTEN WATT MD DR: SANCHEZ/fredrick JOB#: [id number] / [id number]
[2018-06-23] MEDS: LEVOTHYROXINE 75 MCG TABLET PO SCH (05:51)
[2018-06-23] MEDS: ACETAMINOPHEN 325 MG TABLET PO PRN (05:51)
[2018-06-23 06:20] VITALS: BP 126/86
[2018-06-23] MEDS: CYANOCOBALAMIN (VITAMIN B-12) 1,000 MCG TABLET. PO SCH (08:11)
[2018-06-23] MEDS: LITHIUM CARBONATE 300 MG TABLET PO SCH (08:11)
[2018-06-23] MEDS: POLYETHYLENE GLYCOL 3350 17 GM PACKET. PO SCH (08:12)
[2018-06-23] MEDS: cloZAPine 100 MG TABLET PO SCH (08:12)
[2018-06-23] MEDS: cloZAPine 25 MG TABLET PO SCH (08:12)
[2018-06-23] MEDS: amLODIPine BESYLATE 5 MG TABLET PO SCH (08:12)
[2018-06-23] MEDS: FUROSEMIDE 20 MG TABLET PO SCH (08:12)
[2018-06-23] MEDS: prednisoLONE ACETATE 1% OPHTH SUSPENSION 5ML BOTTLE. OD SCH (08:16)
[2018-06-23 17:10] VITALS: BP 133/81
[2018-06-23] MEDS: MIRTAZAPINE 7.5 MG TABLET. PO SCH (20:10)
[2018-06-23] MEDS: BENZTROPINE MESYLATE 1 MG TABLET PO SCH (20:10)
[2018-06-23] MEDS: traZODone 100 MG TABLET. PO PRN (20:10)
[2018-06-23] MEDS: ATORVASTATIN CALCIUM 20 MG TABLET PO SCH (20:10)
[2018-06-23] MEDS: DIVALPROEX ER 500 MG TAB.ER.24H PO SCH (20:10)
[2018-06-23] MEDS: LITHIUM CITRATE PO SCH (20:12)
--- NOTE | 2018-06-23 22:55 | PDOC ---
Exam Note: Julian Note: Please also refer to the separate dictated note~for this date of service dictated separately.~Patient seen individually. Discussed the patient with Nursing staff reviewed the chart.~Reviewed interim history and current functioning. Reviewed vital signs,~Labs/ Radiology~and current medications noted below. Continue current treatment with the changes noted in the dictated addendum note Assessment: Vital Signs: Vital Signs Date Time Temp Pulse Resp B/P (MAP) Pulse Ox O2 Delivery O2 Flow Rate FiO2 06/23/18 17:10 98.2 72 18 133/81 (98) 96 06/21/18 16:17 Room Air I&O Intake and Output 06/23/18 07:01 Intake Total 1440 ml Balance 1440 ml Intake Oral 1440 ml Current Medications: Meds: Current Medications Acetaminophen (Tylenol) 650 mg PRN Q6HRS PRN PO PAIN / TEMP Last administered on 06/23/18 05:51; Start 06/06/18 at 04:15 Multi-Ingredient Ointment (Analgesic [place]) 1 speedy PRN QID PRN TP MUSCLE PAIN Last administered on 06/07/18at 22:53; Start 06/06/18 at 04:15 Al Hydroxide/Mg Hydroxide (Mylanta Plus Xs) 15 ml PRN AFTMEALHC PRN PO DYSPEPSIA; Start 06/06/18 at 04:15 Magnesium Hydroxide (Milk Of Magnesia) 2,400 mg PRN QHS PRN PO CONSTIPATION; Start 06/06/18 at 04:15 Amlodipine Besylate (Norvasc) 5 mg DAILY PO Last administered on 06/23/18at 08:12 ; Start 06/06/18 at 09:00 Atorvastatin Calcium (Lipitor) 20 mg QHS PO Last administered on 06/23/18at 20:10 ; Start 06/06/18 at 21:00 Clozapine (Clozaril) 100 mg [id number] PO Last administered on 06/15/18 07:44; Start 06/06/18 at 09:00; Stop 06/15/18 at 18:36; Status DC Clozapine (Clozaril) 50 mg BID94 PO Last administered on 06/15/18at 07:44; Start 06/06/18 at 09:00; Stop 06/15/18 at 18:36; Status DC Cyanocobalamin (Vitamin B-12) 1,000 mcg DAILY PO Last administered on 06/23/18 08:11; Start 06/06/18 at 09:00 Divalproex Sodium (Depakote Er) 1,000 mg QHS PO Last administered on 06/23/18 20:10; Start 06/06/18 at 21:00 Vitamin D (Vitamin D3) 50,000 unit WEEKLY PO Last administered on 06/21/18 08: 02; Start 06/07/18 at 09:00 Estradiol (Estrace) 1 speedy QMTH VG Last administered on 06/08/18 15:41; Start 06/08/18 at 16:00; Stop 06/08/18 at 21:19; Status DC Furosemide (Lasix) 20 mg DAILY PO Last administered on 06/23/18 08:12; Start at 09:00 Levothyroxine Sodium (Synthroid) 75 mcg DAILY06 PO Last administered on 05:51; Start 06/06/18 at 06:00 Melatonin 6 mg PRN QHS PRN PO INSOMNIA Last administered on 06/13/18 22:23; Start 06/06/18 at 04:30 Magnesium Hydroxide (Milk Of Magnesia) 2,400 mg PRN DAILY PRN PO CONSTIPATION; Start 06/06/18 at 04:30; Status UNV Polyethylene Glycol (miraLAX) 17 gm DAILY PO Last administered on 06/23/18 08: 12; Start 06/06/18 at 09:00 Prednisolone Acetate (Pred Forte) 1 drop DAILY OD Last administered on 08:16; Start 06/06/18 at 09:00 Artificial Tears (Refresh Classic) 1 drop TID PRN PRN OU DRY EYE; Start at 04:30 Mirtazapine (Remeron) 7.5 mg QHS PO Last administered on 06/23/18 20:10; Start 06/06/18 at 21:00 Trazodone HCl (Desyrel) 100 mg PRN QHS PRN PO INSOMNIA, MAY REPEAT X3 Last administered on 06/23/18 20:10; Start 06/06/18 at 19:00 Olanzapine (ZyPREXA ZYDIS) 5 mg PRN Q2HR PRN PO PSYCHOSIS Last administered on 1/30/19at 22:09; Start 06/07/18 at 14:00 Haloperidol (Haldol) 5 mg HS PO ; Start 06/07/18 at 21:00; Stop 06/07/18 at 21: 00; Status DC Haloperidol Lactate (Haldol) 5 mg DAILY IM Last administered on 06/09/18at 07:51 ; Start 06/07/18 at 19:15; Stop 06/09/18 at 09:41; Status DC Estradiol (Estrace) 1 speedy QMTH VG ; Start 06/11/18 at 21:00; Stop 06/18/18 at 11 :41; Status DC Haloperidol Lactate (Haldol) 5 mg 1X ONCE IM Last administered on 06/09/18at 09 :43; Start 06/09/18 at 09:45; Stop 06/09/18 at 09:46; Status DC Haloperidol Lactate (Haldol) 10 mg DAILY IM Last administered on 06/14/18at 08: 40; Start 06/10/18 at 09:00; Stop 06/14/18 at 13:06; Status DC Hydroxyzine HCl (Atarax) 50 mg 1X ONCE PO Last administered on 06/09/18at 17:26 ; Start 06/09/18 at 17:15; Stop 06/09/18 at 17:24; Status DC Hydroxyzine HCl (Atarax) 50 mg 1X ONCE PO Last administered on 06/09/18at 18:29 ; Start 06/09/18 at 18:25; Stop 06/09/18 at 18:26; Status DC Benztropine Mesylate (Cogentin) 1 mg QHS PO Last administered on 06/21/18at 21:57 ; Start 06/10/18 at 21:00; Stop 06/22/18 at 16:50; Status DC [place] Carbonate 300 mg HS PO Last administered on 06/13/18at 19:20; Start at 21:00; Stop 06/14/18 at 13:06; Status DC Hydroxyzine HCl (Atarax) 50 mg PRN Q2HR PRN PO SEDATION Last administered on 01:30; Start 06/11/18 at 15:00 Trazodone HCl (Desyrel) 100 mg PRN 1X PRN PO insomnia Last administered on 06/12at 04:16; Start 06/12/18 at 03:15 Lorazepam (Ativan Intensol) 0.5 mg 1X ONCE SL Last administered on 06/13/18at 21:51; Start 06/13/18 at 18:15; Stop 06/13/18 at 18:16; Status DC Lorazepam (Ativan) 1 mg DAILY IM Last administered on 06/23/18 08:16; Start at 09:50 Haloperidol Lactate (Haldol) 5 mg DAILY IM Last administered on 06/16/18 09:54 ; Start 06/15/18 at 09:00; Stop 06/18/18 at 10:45; Status DC [place] Carbonate 300 mg BID PO Last administered on 06/18/18 08:14; Start at 21:00; Stop 06/18/18 at 15:03; Status DC Clozapine (Clozaril) 300 mg DAILY PO Last administered on 06/23/18 08:12; Start 06/16/18 at 09:00 Clozapine (Clozaril) 25 mg DAILY PO Last administered on 06/23/18 08:12; Start 06/16/18 at 09:00 Estradiol (Estrace) 1 speedy MoTh VG Last administered on 06/18/18at 20:05; Start 06/18/18 at 21:00 [place] Carbonate 300 mg DAILY PO Last administered on 06/23/18 08:11; Start at 09:00 [place] Citrate 5.3 meq QHS PO Last administered on 06/23/18 20:12; Start 06/18 at 21:00 Levothyroxine Sodium (Synthroid) 75 mcg 1X ONCE PO Last administered on 07:53; Start 06/19/18 at 07:00; Stop 06/19/18 at 07:01; Status DC Benztropine Mesylate (Cogentin) 1.5 mg QHS PO Last administered on 06/23/18 20: 10; Start 06/22/18 at 21:00 Active Scripts Active Reported Hydroxyzine Hcl 10 Mg Tablet 10 Mg PO PRN Q2HR PRN Clozapine 100 Mg Tablet 1 Tab PO 1700 Remeron (Mirtazapine) 15 Mg Tablet 1 Tab PO 1700 Depakote Er (Divalproex Sodium) 500 Mg Tab.er.24h 750 Mg PO 1700 Nystatin 15 Gm Powder 1 Speedy TP BID Lidocaine 1 Each Adh..patch 1 Each TP DAILY Lotrimin Af (Clotrimazole) 12 Gm Cream..g. 1 Speedy TP BID PRN Sorbitol (Sorbitol Solution) 1 Ml Solution 30 Ml PO PRN DAILY PRN Trazodone Hcl 50 Mg Tablet 100 Mg PO QHS PRN [place]mer-128 (Sodium Chloride) 3.5 Gm Oint...g. 1 Speedy OP HS Lipitor (Atorvastatin Calcium) 20 Mg Tablet 20 Mg PO DAILYWSUP Levothyroxine Sodium 75 Mcg Tablet 75 Mcg PO DAILYAC Estrace (Estradiol) 42.5 Gm Cream.appl 1 Speedy VG 2X WEEK Q FRI, URS Endocet 10-325 Mg Tablet (Oxycodone Hcl/Acetaminophen) 1 Each Tablet 1 Each PO PRN Q6HRS PRN Vitamin B-12 (Cyanocobalamin (Vitamin B-12)) 1,000 Mcg Tablet 1,000 Mcg PO DAILY Maalox Advanced Suspension (Mag Hydrox/Aluminum Hyd/Simeth) 355 Ml Oral.susp 15 Ml PO PRN AFTMEALHC PRN Analgesic [place] (Methyl Salicylate/Menthol) 28 Gm Oint...g. 1 Speedy TP PRN QID PRN Risperidone 1 Mg Tablet 1.5 Mg PO 1700 Refresh Classic Eye Drops (Polyvinyl Alcohol/Povidone/Pf) 1 Each Droperette 1 Each OU TID PRN Trazodone Hcl 50 Mg Tablet 100 Mg PO DAILYWSUP Norvasc (Amlodipine Besylate) 5 Mg Tablet 10 Mg PO DAILY Miralax (Polyethylene Glycol 3350) 17 Gm Powd.pack 17 Gm PO DAILY Milk Of Magnesia (Magnesium Hydroxide) 2,400 Mg/10 Ml Oral.susp 2,400 Mg PO PRN DAILY PRN Tylenol (Acetaminophen) 325 Mg Tablet 650 Mg PO PRN Q6HRS PRN I have reviewed the current psychotropics carefully including drug interactions. Risk benefit ratio favors no change other than as noted in my dictated progress note. 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
--- NOTE | 2018-06-24 02:00 | NUR ---
Nursing Note The patient was located in her room for her assessment and medication pass. The patient was compliant with her medications and took them whole. The patient was somewhat disorganized when approached for her assessment and medication. The patient is currently sleeping in her room.
--- NOTE | 2018-06-24 05:21 | PN ---
DATE: 06/22/2018 This late entry for 06/22/2018 covers elements not covered in my initial note. SUBJECTIVE: I met with the patient in the evening. She slept 8-3/4 hours previous night. [place] level is 0.8. WBC 4.7, neutrophils 57%. The patient has done overall much better, much less psychotic, less manic. No yelling, agitation, quite an improvement since lithium was initiated and stabilized. REVIEW OF SYSTEMS: Positive for some drooling. No CV, , pulmonary, eye system symptoms on review. MENTAL STATUS EXAM: Oriented reasonably. Speech coherent, abstraction fair, computation impaired, language function intact, attention span short. Mood and affect, much less manic and psychotic. LABORATORY DATA: Reviewed as above. IMPRESSION: Unchanged from initial note. PLAN: Repeat lithium level on 06/24/2018. Increase Cogentin from 1 mg at bedtime to 1.5 mg at bedtime with consequent to the drooling. Rest unchanged from initial note. MAN Rox WATT MD DR: SANCHEZ/fredrick JOB#: [id number] / [id number]
[2018-06-24 05:55] VITALS: BP 123/80
[2018-06-24] MEDS: LEVOTHYROXINE 75 MCG TABLET PO SCH (06:02)
[2018-06-24] MEDS: prednisoLONE ACETATE 1% OPHTH SUSPENSION 5ML BOTTLE. OD SCH (08:54)
[2018-06-24] MEDS: LITHIUM CARBONATE 300 MG TABLET PO SCH (08:54)
[2018-06-24] MEDS: cloZAPine 25 MG TABLET PO SCH (08:55)
[2018-06-24] MEDS: POLYETHYLENE GLYCOL 3350 17 GM PACKET. PO SCH (08:55)
[2018-06-24] MEDS: cloZAPine 100 MG TABLET PO SCH (08:55)
[2018-06-24] MEDS: FUROSEMIDE 20 MG TABLET PO SCH (08:55)
[2018-06-24] MEDS: amLODIPine BESYLATE 5 MG TABLET PO SCH (08:59)
[2018-06-24] MEDS: CYANOCOBALAMIN (VITAMIN B-12) 1,000 MCG TABLET. PO SCH (09:00)
--- NOTE | 2018-06-24 10:43 | NUR ---
Pt has been calm, cooperative, compliant. No agitation or aggression thus far this shift. She is able to focus on tasks and is med compliant.
--- NOTE | 2018-06-24 12:00 | NUR ---
WEEKLY ACTIVITY THERAPY NOTE Date of Admission: 06/06/2018 Date of AT Assessment: 06/07/2018 Goal aimed: to increase attention span and engagement Initial Goal: Pt. will participate in all Activity Therapy groups offered (Pt. set goal for self) Goal changed 06/18/2018- Pt. will participate in at least three (Activity Therapy) groups or individual activities per week. Weekly progress towards goal: achieved Group participation level: minimal Behaviors observed: in groups only for a little while, quiet around others, hair/make-up done on Friday Plan: no change to goal
[2018-06-24 16:06] VITALS: BP 140/93
[2018-06-24] MEDS: MIRTAZAPINE 7.5 MG TABLET. PO SCH (19:58)
[2018-06-24] MEDS: BENZTROPINE MESYLATE 1 MG TABLET PO SCH (19:58)
[2018-06-24] MEDS: DIVALPROEX ER 500 MG TAB.ER.24H PO SCH (19:58)
[2018-06-24] MEDS: ATORVASTATIN CALCIUM 20 MG TABLET PO SCH (19:59)
[2018-06-24] MEDS: LITHIUM CITRATE PO SCH (20:01)
--- NOTE | 2018-06-24 23:06 | PDOC ---
Exam Note: Julian Note: Please also refer to the separate dictated note~for this date of service dictated separately.~Patient seen individually. Discussed the patient with Nursing staff reviewed the chart.~Reviewed interim history and current functioning. Reviewed vital signs,~Labs/ Radiology~and current medications noted below. Continue current treatment with the changes noted in the dictated addendum note Assessment: Vital Signs: Vital Signs Date Time Temp Pulse Resp B/P (MAP) Pulse Ox O2 Delivery O2 Flow Rate FiO2 06/24/18 16:06 98.3 96 16 140/93 (109) 94 06/21/18 16:17 Room Air I&O Intake and Output 06/24/18 07:01 Intake Total 1080 ml Balance 1080 ml Intake Oral 1080 ml # Voids 1 Labs: Laboratory Tests Test 06/24/18 06:25 [place] Level 0.7 mmol/L (0.6-1.2) [place] Last Dose Date 06/23/18 [place] Last Dose Time 2100 Current Medications: Meds: Current Medications Acetaminophen (Tylenol) 650 mg PRN Q6HRS PRN PO PAIN / TEMP Last administered on 06/23/18 05:51; Start 06/06/18 at 04:15 Multi-Ingredient Ointment (Analgesic New Era) 1 speedy PRN QID PRN TP MUSCLE PAIN Last administered on 06/07/18 22:53; Start 06/06/18 at 04:15 Al Hydroxide/Mg Hydroxide (Mylanta Plus Xs) 15 ml PRN AFTMEALHC PRN PO DYSPEPSIA; Start 06/06/18 at 04:15 Magnesium Hydroxide (Milk Of Magnesia) 2,400 mg PRN QHS PRN PO CONSTIPATION; Start 06/06/18 at 04:15 Amlodipine Besylate (Norvasc) 5 mg DAILY PO Last administered on 06/24/18 08:59 ; Start 06/06/18 at 09:00 Atorvastatin Calcium (Lipitor) 20 mg QHS PO Last administered on 06/24/18 19:59 ; Start 06/06/18 at 21:00 Clozapine (Clozaril) 100 mg [id number] PO Last administered on 06/15/18at 07:44; Start 06/06/18 at 09:00; Stop 06/15/18 at 18:36; Status DC Clozapine (Clozaril) 50 mg [id number] PO Last administered on 06/15/18 07:44; Start 06/06/18 at 09:00; Stop 06/15/18 at 18:36; Status DC Cyanocobalamin (Vitamin B-12) 1,000 mcg DAILY PO Last administered on 06/24/18 09:00; Start 06/06/18 at 09:00 Divalproex Sodium (Depakote Er) 1,000 mg QHS PO Last administered on 06/24/18 19:58; Start 06/06/18 at 21:00 Vitamin D (Vitamin D3) 50,000 unit WEEKLY PO Last administered on 06/21/18 08: 02; Start 06/07/18 at 09:00 Estradiol (Estrace) 1 speedy QMTH VG Last administered on 06/08/18 15:41; Start 06/08/18 at 16:00; Stop 06/08/18 at 21:19; Status DC Furosemide (Lasix) 20 mg DAILY PO Last administered on 06/24/18 08:55; Start at 09:00 Levothyroxine Sodium (Synthroid) 75 mcg DAILY06 PO Last administered on 06:02; Start 06/06/18 at 06:00 Melatonin 6 mg PRN QHS PRN PO INSOMNIA Last administered on 06/13/18 22:23; Start 06/06/18 at 04:30 Magnesium Hydroxide (Milk Of Magnesia) 2,400 mg PRN DAILY PRN PO CONSTIPATION; Start 06/06/18 at 04:30; Status UNV Polyethylene Glycol (miraLAX) 17 gm DAILY PO Last administered on 06/24/18 08: 55; Start 06/06/18 at 09:00 Prednisolone Acetate (Pred Forte) 1 drop DAILY OD Last administered on 08:54; Start 06/06/18 at 09:00 Artificial Tears (Refresh Classic) 1 drop TID PRN PRN OU DRY EYE; Start at 04:30 Mirtazapine (Remeron) 7.5 mg QHS PO Last administered on 06/24/18 19:58; Start 06/06/18 at 21:00 Trazodone HCl (Desyrel) 100 mg PRN QHS PRN PO INSOMNIA, MAY REPEAT X3 Last administered on 2/5/19at 20:10; Start 06/06/18 at 19:00 Olanzapine (ZyPREXA ZYDIS) 5 mg PRN Q2HR PRN PO PSYCHOSIS Last administered on 06/17/18at 22:09; Start 06/07/18 at 14:00 Haloperidol (Haldol) 5 mg HS PO ; Start 06/07/18 at 21:00; Stop 06/07/18 at 21: 00; Status DC Haloperidol Lactate (Haldol) 5 mg DAILY IM Last administered on 06/09/18at 07:51 ; Start 06/07/18 at 19:15; Stop 06/09/18 at 09:41; Status DC Estradiol (Estrace) 1 speedy QMTH VG ; Start 06/11/18 at 21:00; Stop 06/18/18 at 11 :41; Status DC Haloperidol Lactate (Haldol) 5 mg 1X ONCE IM Last administered on 06/09/18at 09 :43; Start 06/09/18 at 09:45; Stop 06/09/18 at 09:46; Status DC Haloperidol Lactate (Haldol) 10 mg DAILY IM Last administered on 06/14/18at 08: 40; Start 06/10/18 at 09:00; Stop 06/14/18 at 13:06; Status DC Hydroxyzine HCl (Atarax) 50 mg 1X ONCE PO Last administered on 06/09/18at 17:26 ; Start 06/09/18 at 17:15; Stop 06/09/18 at 17:24; Status DC Hydroxyzine HCl (Atarax) 50 mg 1X ONCE PO Last administered on 06/09/18at 18:29 ; Start 06/09/18 at 18:25; Stop 06/09/18 at 18:26; Status DC Benztropine Mesylate (Cogentin) 1 mg QHS PO Last administered on 06/21/18at 21:57 ; Start 06/10/18 at 21:00; Stop 06/22/18 at 16:50; Status DC [place] Carbonate 300 mg HS PO Last administered on 06/13/18at 19:20; Start at 21:00; Stop 06/14/18 at 13:06; Status DC Hydroxyzine HCl (Atarax) 50 mg PRN Q2HR PRN PO SEDATION Last administered on 01:30; Start 06/11/18 at 15:00 Trazodone HCl (Desyrel) 100 mg PRN 1X PRN PO insomnia Last administered on 06/12 04:16; Start 06/12/18 at 03:15 Lorazepam (Ativan Intensol) 0.5 mg 1X ONCE SL Last administered on 06/13/18 21:51; Start 06/13/18 at 18:15; Stop 06/13/18 at 18:16; Status DC Lorazepam (Ativan) 1 mg DAILY IM Last administered on 06/23/18 08:16; Start at 09:50; Stop 06/24/18 at 15:40; Status DC Haloperidol Lactate (Haldol) 5 mg DAILY IM Last administered on 06/16/18 09:54 ; Start 06/15/18 at 09:00; Stop 06/18/18 at 10:45; Status DC [place] Carbonate 300 mg BID PO Last administered on 06/18/18 08:14; Start at 21:00; Stop 06/18/18 at 15:03; Status DC Clozapine (Clozaril) 300 mg DAILY PO Last administered on 06/24/18 08:55; Start 06/16/18 at 09:00 Clozapine (Clozaril) 25 mg DAILY PO Last administered on 06/24/18 08:55; Start 06/16/18 at 09:00 Estradiol (Estrace) 1 speedy MoTh VG Last administered on 06/18/18 20:05; Start 06/18/18 at 21:00 [place] Carbonate 300 mg DAILY PO Last administered on 06/24/18 08:54; Start at 09:00 [place] Citrate 5.3 meq QHS PO Last administered on 06/24/18 20:01; Start 06/18 at 21:00 Levothyroxine Sodium (Synthroid) 75 mcg 1X ONCE PO Last administered on 07:53; Start 06/19/18 at 07:00; Stop 06/19/18 at 07:01; Status DC Benztropine Mesylate (Cogentin) 1.5 mg QHS PO Last administered on 06/24/18 19: 58; Start 06/22/18 at 21:00 Active Scripts Active Reported Hydroxyzine Hcl 10 Mg Tablet 10 Mg PO PRN Q2HR PRN Clozapine 100 Mg Tablet 1 Tab PO 1700 Remeron (Mirtazapine) 15 Mg Tablet 1 Tab PO 1700 Depakote Er (Divalproex Sodium) 500 Mg Tab.er.24h 750 Mg PO 1700 Nystatin 15 Gm Powder 1 Speedy TP BID Lidocaine 1 Each Adh..patch 1 Each TP DAILY Lotrimin Af (Clotrimazole) 12 Gm Cream..g. 1 Speedy TP BID PRN Sorbitol (Sorbitol Solution) 1 Ml Solution 30 Ml PO PRN DAILY PRN Trazodone Hcl 50 Mg Tablet 100 Mg PO QHS PRN Elmer-128 (Sodium Chloride) 3.5 Gm Oint...g. 1 Speedy OP HS Lipitor (Atorvastatin Calcium) 20 Mg Tablet 20 Mg PO DAILYWSUP Levothyroxine Sodium 75 Mcg Tablet 75 Mcg PO DAILYAC Estrace (Estradiol) 42.5 Gm Cream.appl 1 Speedy VG 2X WEEK Q FRI, Endocet 10-325 Mg Tablet (Oxycodone Hcl/Acetaminophen) 1 Each Tablet 1 Each PO PRN Q6HRS PRN Vitamin B-12 (Cyanocobalamin (Vitamin B-12)) 1,000 Mcg Tablet 1,000 Mcg PO DAILY Maalox Advanced Suspension (Mag Hydrox/Aluminum Hyd/Simeth) 355 Ml Oral.susp 15 Ml PO PRN AFTMEALHC PRN Analgesic [place] (Methyl Salicylate/Menthol) 28 Gm Oint...g. 1 Speedy TP PRN QID PRN Risperidone 1 Mg Tablet 1.5 Mg PO 1700 Refresh Classic Eye Drops (Polyvinyl Alcohol/Povidone/Pf) 1 Each Droperette 1 Each OU TID PRN Trazodone Hcl 50 Mg Tablet 100 Mg PO DAILYWSUP Norvasc (Amlodipine Besylate) 5 Mg Tablet 10 Mg PO DAILY Miralax (Polyethylene Glycol 3350) 17 Gm Powd.pack 17 Gm PO DAILY Milk Of Magnesia (Magnesium Hydroxide) 2,400 Mg/10 Ml Oral.susp 2,400 Mg PO PRN DAILY PRN Tylenol (Acetaminophen) 325 Mg Tablet 650 Mg PO PRN Q6HRS PRN I have reviewed the current psychotropics carefully including drug interactions. Risk benefit ratio favors no change other than as noted in my dictated progress note. 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
--- NOTE | 2018-06-25 00:15 | PN ---
DATE: 06/23/2018 This late entry for 06/23/2018 covers elements not covered in my initial note. SUBJECTIVE: I met with the patient in the evening. The patient slept 8-1/4 hours previous night. Appetite is fair. Overall, manic, psychotic. Agitation is much improved, less resistive to medications. Still complains of drooling. I met with her in her room. She had only 1 cover on her, complained of being cold and I asked the staff to get her some extra covers. REVIEW OF SYSTEMS: No CV, , pulmonary, eye system symptoms on review. MENTAL STATUS EXAM: Oriented to herself, situation reasonably oriented. Speech coherent, less pressured. Abstraction fair, computation impaired, language function intact, attention span short. Mood and affect, manic, psychotic symptoms are improved. LABORATORY DATA: Reviewed. IMPRESSION: Unchanged from initial note. PLAN: No change from initial note. We will monitor the drooling and may need to increase Cogentin. KIERSTEN WATT MD DR: SANCHEZ/fredrick JOB#: [id number] / [id number]
--- NOTE | 2018-06-25 02:38 | NUR ---
Nursing Note The patient was located in her room for her assessment and medication pass. The patient was compliant with her medication and took them whole. The patient is currently sleeping in her room.
[2018-06-25] MEDS: LEVOTHYROXINE 75 MCG TABLET PO SCH (05:44)
[2018-06-25 06:44] VITALS: BP 117/72
[2018-06-25] MEDS: cloZAPine 100 MG TABLET PO SCH (08:34)
[2018-06-25] MEDS: LITHIUM CARBONATE 300 MG TABLET PO SCH (08:34)
[2018-06-25] MEDS: POLYETHYLENE GLYCOL 3350 17 GM PACKET. PO SCH (08:34)
[2018-06-25] MEDS: FUROSEMIDE 20 MG TABLET PO SCH (08:35)
[2018-06-25] MEDS: amLODIPine BESYLATE 5 MG TABLET PO SCH (08:35)
[2018-06-25] MEDS: prednisoLONE ACETATE 1% OPHTH SUSPENSION 5ML BOTTLE. OD SCH (08:35)
[2018-06-25] MEDS: cloZAPine 25 MG TABLET PO SCH (08:35)
[2018-06-25] MEDS: CYANOCOBALAMIN (VITAMIN B-12) 1,000 MCG TABLET. PO SCH (08:35)
--- NOTE | 2018-06-25 11:00 | NUR ---
Pt calm and cooperative. Compliant with whole medications. Pt ate breakfast and went back to bed. Pt is able to answer assessment questions appropriately and can make her needs known.
--- NOTE | 2018-06-25 12:25 | NUR ---
WEEKLY NOTE: Pt has made a complete turn around behaviorally. Pt is compliant in taking her medications, somewhat withdrawn from her peers and is eating and sleeping better. Pt must complete the level II screen before her discharge as SW initiated the process. SW will assist pt family in this process and send out referrals to facilities once the Level II has been completed.
[2018-06-25 17:00] VITALS: BP 130/79
[2018-06-25] MEDS: DIVALPROEX ER 500 MG TAB.ER.24H PO SCH (19:56)
[2018-06-25] MEDS: BENZTROPINE MESYLATE 1 MG TABLET PO SCH (19:56)
[2018-06-25] MEDS: MIRTAZAPINE 7.5 MG TABLET. PO SCH (19:56)
[2018-06-25] MEDS: ATORVASTATIN CALCIUM 20 MG TABLET PO SCH (19:57)
[2018-06-25] MEDS: ESTRADIOL 0.01% VAGINAL CREAM 42.5GM TUBE. VG SCH (19:57)
[2018-06-25] MEDS: LITHIUM CITRATE PO SCH (19:59)
--- NOTE | 2018-06-25 22:30 | PDOC ---
Exam Note: Julian Note: Please also refer to the separate dictated note~for this date of service dictated separately.~Patient seen individually. Discussed the patient with Nursing staff reviewed the chart.~Reviewed interim history and current functioning. Reviewed vital signs,~Labs/ Radiology~and current medications noted below. Continue current treatment with the changes noted in the dictated addendum note Assessment: Vital Signs: Vital Signs Date Time Temp Pulse Resp B/P (MAP) Pulse Ox O2 Delivery O2 Flow Rate FiO2 06/25/18 17:00 98.9 95 18 130/79 (96) 99 06/21/18 16:17 Room Air I&O Intake and Output 06/25/18 07:01 Intake Total 1320 ml Balance 1320 ml Intake Oral 1320 ml # Voids 1 Current Medications: Meds: Current Medications Acetaminophen (Tylenol) 650 mg PRN Q6HRS PRN PO PAIN / TEMP Last administered on 06/23/18 05:51; Start 06/06/18 at 04:15 Multi-Ingredient Ointment (Analgesic [place]) 1 speedy PRN QID PRN TP MUSCLE PAIN Last administered on 06/07/18at 22:53; Start 06/06/18 at 04:15 Al Hydroxide/Mg Hydroxide (Mylanta Plus Xs) 15 ml PRN AFTMEALHC PRN PO DYSPEPSIA; Start 06/06/18 at 04:15 Magnesium Hydroxide (Milk Of Magnesia) 2,400 mg PRN QHS PRN PO CONSTIPATION; Start 06/06/18 at 04:15 Amlodipine Besylate (Norvasc) 5 mg DAILY PO Last administered on 06/25/18at 08:35 ; Start 06/06/18 at 09:00 Atorvastatin Calcium (Lipitor) 20 mg QHS PO Last administered on 06/25/18 19:57 ; Start 06/06/18 at 21:00 Clozapine (Clozaril) 100 mg [id number] PO Last administered on 06/15/18at 07:44; Start 06/06/18 at 09:00; Stop 06/15/18 at 18:36; Status DC Clozapine (Clozaril) 50 mg [id number] PO Last administered on 06/15/18at 07:44; Start 06/06/18 at 09:00; Stop 06/15/18 at 18:36; Status DC Cyanocobalamin (Vitamin B-12) 1,000 mcg DAILY PO Last administered on 06/25/18 08:35; Start 06/06/18 at 09:00 Divalproex Sodium (Depakote Er) 1,000 mg QHS PO Last administered on 06/25/18 19:56; Start 06/06/18 at 21:00 Vitamin D (Vitamin D3) 50,000 unit WEEKLY PO Last administered on 06/21/18 08: 02; Start 06/07/18 at 09:00 Estradiol (Estrace) 1 speedy QMTH VG Last administered on 06/08/18 15:41; Start 06/08/18 at 16:00; Stop 06/08/18 at 21:19; Status DC Furosemide (Lasix) 20 mg DAILY PO Last administered on 06/25/18 08:35; Start at 09:00 Levothyroxine Sodium (Synthroid) 75 mcg DAILY06 PO Last administered on 05:44; Start 06/06/18 at 06:00 Melatonin 6 mg PRN QHS PRN PO INSOMNIA Last administered on 06/13/18 22:23; Start 06/06/18 at 04:30 Magnesium Hydroxide (Milk Of Magnesia) 2,400 mg PRN DAILY PRN PO CONSTIPATION; Start 06/06/18 at 04:30; Status UNV Polyethylene Glycol (miraLAX) 17 gm DAILY PO Last administered on 06/25/18 08: 34; Start 06/06/18 at 09:00 Prednisolone Acetate (Pred Forte) 1 drop DAILY OD Last administered on 08:35; Start 06/06/18 at 09:00 Artificial Tears (Refresh Classic) 1 drop TID PRN PRN OU DRY EYE; Start at 04:30 Mirtazapine (Remeron) 7.5 mg QHS PO Last administered on 06/25/18 19:56; Start 06/06/18 at 21:00 Trazodone HCl (Desyrel) 100 mg PRN QHS PRN PO INSOMNIA, MAY REPEAT X3 Last administered on 06/23/18 20:10; Start 06/06/18 at 19:00 Olanzapine (ZyPREXA ZYDIS) 5 mg PRN Q2HR PRN PO PSYCHOSIS Last administered on 1/30/19at 22:09; Start 06/07/18 at 14:00 Haloperidol (Haldol) 5 mg HS PO ; Start 06/07/18 at 21:00; Stop 06/07/18 at 21: 00; Status DC Haloperidol Lactate (Haldol) 5 mg DAILY IM Last administered on 06/09/18at 07:51 ; Start 06/07/18 at 19:15; Stop 06/09/18 at 09:41; Status DC Estradiol (Estrace) 1 speedy QMTH VG ; Start 06/11/18 at 21:00; Stop 06/18/18 at 11 :41; Status DC Haloperidol Lactate (Haldol) 5 mg 1X ONCE IM Last administered on 06/09/18at 09 :43; Start 06/09/18 at 09:45; Stop 06/09/18 at 09:46; Status DC Haloperidol Lactate (Haldol) 10 mg DAILY IM Last administered on 06/14/18at 08: 40; Start 06/10/18 at 09:00; Stop 06/14/18 at 13:06; Status DC Hydroxyzine HCl (Atarax) 50 mg 1X ONCE PO Last administered on 06/09/18at 17:26 ; Start 06/09/18 at 17:15; Stop 06/09/18 at 17:24; Status DC Hydroxyzine HCl (Atarax) 50 mg 1X ONCE PO Last administered on 06/09/18at 18:29 ; Start 06/09/18 at 18:25; Stop 06/09/18 at 18:26; Status DC Benztropine Mesylate (Cogentin) 1 mg QHS PO Last administered on 06/21/18at 21:57 ; Start 06/10/18 at 21:00; Stop 06/22/18 at 16:50; Status DC [place] Carbonate 300 mg HS PO Last administered on 06/13/18 19:20; Start at 21:00; Stop 06/14/18 at 13:06; Status DC Hydroxyzine HCl (Atarax) 50 mg PRN Q2HR PRN PO SEDATION Last administered on 01:30; Start 06/11/18 at 15:00 Trazodone HCl (Desyrel) 100 mg PRN 1X PRN PO insomnia Last administered on 06/12 04:16; Start 06/12/18 at 03:15 Lorazepam (Ativan Intensol) 0.5 mg 1X ONCE SL Last administered on 06/13/18 21:51; Start 06/13/18 at 18:15; Stop 06/13/18 at 18:16; Status DC Lorazepam (Ativan) 1 mg DAILY IM Last administered on 06/23/18 08:16; Start at 09:50; Stop 06/24/18 at 15:40; Status DC Haloperidol Lactate (Haldol) 5 mg DAILY IM Last administered on 06/16/18 09:54 ; Start 06/15/18 at 09:00; Stop 06/18/18 at 10:45; Status DC [place] Carbonate 300 mg BID PO Last administered on 06/18/18 08:14; Start at 21:00; Stop 06/18/18 at 15:03; Status DC Clozapine (Clozaril) 300 mg DAILY PO Last administered on 06/25/18 08:34; Start 06/16/18 at 09:00 Clozapine (Clozaril) 25 mg DAILY PO Last administered on 06/25/18 08:35; Start 06/16/18 at 09:00 Estradiol (Estrace) 1 speedy MoTh VG Last administered on 06/18/18 20:05; Start 06/18/18 at 21:00 [place] Carbonate 300 mg DAILY PO Last administered on 06/25/18 08:34; Start at 09:00 [place] Citrate 5.3 meq QHS PO Last administered on 06/25/18 19:59; Start 06/18 at 21:00 Levothyroxine Sodium (Synthroid) 75 mcg 1X ONCE PO Last administered on 07:53; Start 06/19/18 at 07:00; Stop 06/19/18 at 07:01; Status DC Benztropine Mesylate (Cogentin) 1.5 mg QHS PO Last administered on 06/24/18 19: 58; Start 06/22/18 at 21:00; Stop 06/25/18 at 17:05; Status DC Benztropine Mesylate (Cogentin) 1 mg QHS PO Last administered on 06/25/18 19:56 ; Start 06/25/18 at 21:00 Active Scripts Active Reported Hydroxyzine Hcl 10 Mg Tablet 10 Mg PO PRN Q2HR PRN Clozapine 100 Mg Tablet 1 Tab PO 1700 Remeron (Mirtazapine) 15 Mg Tablet 1 Tab PO 1700 Depakote Er (Divalproex Sodium) 500 Mg Tab.er.24h 750 Mg PO 1700 Nystatin 15 Gm Powder 1 Speedy TP BID Lidocaine 1 Each Adh..patch 1 Each TP DAILY Lotrimin Af (Clotrimazole) 12 Gm Cream..g. 1 Speedy TP BID PRN Sorbitol (Sorbitol Solution) 1 Ml Solution 30 Ml PO PRN DAILY PRN Trazodone Hcl 50 Mg Tablet 100 Mg PO QHS PRN [place]-128 (Sodium Chloride) 3.5 Gm Oint...g. 1 Speedy OP HS Lipitor (Atorvastatin Calcium) 20 Mg Tablet 20 Mg PO DAILYWSUP Levothyroxine Sodium 75 Mcg Tablet 75 Mcg PO DAILYAC Estrace (Estradiol) 42.5 Gm Cream.appl 1 Speedy VG 2X WEEK Q FRI, Endocet 10-325 Mg Tablet (Oxycodone Hcl/Acetaminophen) 1 Each Tablet 1 Each PO PRN Q6HRS PRN Vitamin B-12 (Cyanocobalamin (Vitamin B-12)) 1,000 Mcg Tablet 1,000 Mcg PO DAILY Maalox Advanced Suspension (Mag Hydrox/Aluminum Hyd/Simeth) 355 Ml Oral.susp 15 Ml PO PRN AFTMEALHC PRN Analgesic [place] (Methyl Salicylate/Menthol) 28 Gm Oint...g. 1 Speedy TP PRN QID PRN Risperidone 1 Mg Tablet 1.5 Mg PO 1700 Refresh Classic Eye Drops (Polyvinyl Alcohol/Povidone/Pf) 1 Each Droperette 1 Each OU TID PRN Trazodone Hcl 50 Mg Tablet 100 Mg PO DAILYWSUP Norvasc (Amlodipine Besylate) 5 Mg Tablet 10 Mg PO DAILY Miralax (Polyethylene Glycol 3350) 17 Gm Powd.pack 17 Gm PO DAILY Milk Of Magnesia (Magnesium Hydroxide) 2,400 Mg/10 Ml Oral.susp 2,400 Mg PO PRN DAILY PRN Tylenol (Acetaminophen) 325 Mg Tablet 650 Mg PO PRN Q6HRS PRN I have reviewed the current psychotropics carefully including drug interactions. Risk benefit ratio favors no change other than as noted in my dictated progress note. 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
--- NOTE | 2018-06-26 00:50 | NUR ---
Nursing Note The patient was calm and compliant and was interactive with peers and staff this shift. The patient was out of her room an increased amount this shift. The patient is currently sleeping in her room.
[2018-06-26 05:57] VITALS: BP 106/69
[2018-06-26] MEDS: LEVOTHYROXINE 75 MCG TABLET PO SCH (06:03)
[2018-06-26] MEDS: amLODIPine BESYLATE 5 MG TABLET PO SCH (09:21)
[2018-06-26] MEDS: FUROSEMIDE 20 MG TABLET PO SCH (09:21)
[2018-06-26] MEDS: CYANOCOBALAMIN (VITAMIN B-12) 1,000 MCG TABLET. PO SCH (09:21)
[2018-06-26] MEDS: POLYETHYLENE GLYCOL 3350 17 GM PACKET. PO SCH (09:21)
[2018-06-26] MEDS: cloZAPine 25 MG TABLET PO SCH (09:21)
[2018-06-26] MEDS: LITHIUM CARBONATE 300 MG TABLET PO SCH (09:21)
[2018-06-26] MEDS: prednisoLONE ACETATE 1% OPHTH SUSPENSION 5ML BOTTLE. OD SCH (09:22)
[2018-06-26] MEDS: cloZAPine 100 MG TABLET PO SCH (09:22)
--- NOTE | 2018-06-26 11:05 | NUR ---
Nursing Note; Pt calm, compliant w/ medications whole. Pt went back to bed after eating breakfast this morning. Pt able to make her needs known; reports no pain.
[2018-06-26 16:51] VITALS: BP 142/90
[2018-06-26] MEDS: MIRTAZAPINE 7.5 MG TABLET. PO SCH (20:07)
[2018-06-26] MEDS: BENZTROPINE MESYLATE 1 MG TABLET PO SCH (20:07)
[2018-06-26] MEDS: DIVALPROEX ER 500 MG TAB.ER.24H PO SCH (20:07)
[2018-06-26] MEDS: ATORVASTATIN CALCIUM 20 MG TABLET PO SCH (20:07)
[2018-06-26] MEDS: LITHIUM CITRATE PO SCH (20:09)
--- NOTE | 2018-06-26 22:40 | PDOC ---
Exam Note: Julian Note: Please also refer to the separate dictated note~for this date of service dictated separately.~Patient seen individually. Discussed the patient with Nursing staff reviewed the chart.~Reviewed interim history and current functioning. Reviewed vital signs,~Labs/ Radiology~and current medications noted below. Continue current treatment with the changes noted in the dictated addendum note Assessment: Vital Signs: Vital Signs Date Time Temp Pulse Resp B/P (MAP) Pulse Ox O2 Delivery O2 Flow Rate FiO2 06/26/18 16:51 98.0 103 20 142/90 (107) 98 06/21/18 16:17 Room Air I&O Intake and Output 06/26/18 07:01 Intake Total 1080 ml Balance 1080 ml Intake Oral 1080 ml Current Medications: Meds: Current Medications Acetaminophen (Tylenol) 650 mg PRN Q6HRS PRN PO PAIN / TEMP Last administered on 06/23/18 05:51; Start 06/06/18 at 04:15 Multi-Ingredient Ointment (Analgesic [place]) 1 speedy PRN QID PRN TP MUSCLE PAIN Last administered on 06/07/18at 22:53; Start 06/06/18 at 04:15 Al Hydroxide/Mg Hydroxide (Mylanta Plus Xs) 15 ml PRN AFTMEALHC PRN PO DYSPEPSIA; Start 06/06/18 at 04:15 Magnesium Hydroxide (Milk Of Magnesia) 2,400 mg PRN QHS PRN PO CONSTIPATION; Start 06/06/18 at 04:15 Amlodipine Besylate (Norvasc) 5 mg DAILY PO Last administered on 06/26/18 09:21 ; Start 06/06/18 at 09:00 Atorvastatin Calcium (Lipitor) 20 mg QHS PO Last administered on 06/26/18 20:07 ; Start 06/06/18 at 21:00 Clozapine (Clozaril) 100 mg [id number] PO Last administered on 06/15/18 07:44; Start 06/06/18 at 09:00; Stop 06/15/18 at 18:36; Status DC Clozapine (Clozaril) 50 mg [id number] PO Last administered on 06/15/18 07:44; Start 06/06/18 at 09:00; Stop 06/15/18 at 18:36; Status DC Cyanocobalamin (Vitamin B-12) 1,000 mcg DAILY PO Last administered on 06/26/18 09:21; Start 06/06/18 at 09:00 Divalproex Sodium (Depakote Er) 1,000 mg QHS PO Last administered on 06/26/18 20:07; Start 06/06/18 at 21:00 Vitamin D (Vitamin D3) 50,000 unit WEEKLY PO Last administered on 06/21/18 08: 02; Start 06/07/18 at 09:00 Estradiol (Estrace) 1 speedy QMTH VG Last administered on 06/08/18 15:41; Start 06/08/18 at 16:00; Stop 06/08/18 at 21:19; Status DC Furosemide (Lasix) 20 mg DAILY PO Last administered on 06/26/18 09:21; Start at 09:00 Levothyroxine Sodium (Synthroid) 75 mcg DAILY06 PO Last administered on 06:03; Start 06/06/18 at 06:00 Melatonin 6 mg PRN QHS PRN PO INSOMNIA Last administered on 06/13/18 22:23; Start 06/06/18 at 04:30 Magnesium Hydroxide (Milk Of Magnesia) 2,400 mg PRN DAILY PRN PO CONSTIPATION; Start 06/06/18 at 04:30; Status UNV Polyethylene Glycol (miraLAX) 17 gm DAILY PO Last administered on 06/26/18 09: 21; Start 06/06/18 at 09:00 Prednisolone Acetate (Pred Forte) 1 drop DAILY OD Last administered on 09:22; Start 06/06/18 at 09:00 Artificial Tears (Refresh Classic) 1 drop TID PRN PRN OU DRY EYE; Start at 04:30 Mirtazapine (Remeron) 7.5 mg QHS PO Last administered on 06/26/18 20:07; Start 06/06/18 at 21:00 Trazodone HCl (Desyrel) 100 mg PRN QHS PRN PO INSOMNIA, MAY REPEAT X3 Last administered on 06/23/18 20:10; Start 06/06/18 at 19:00 Olanzapine (ZyPREXA ZYDIS) 5 mg PRN Q2HR PRN PO PSYCHOSIS Last administered on 06/17/18 22:09; Start 06/07/18 at 14:00 Haloperidol (Haldol) 5 mg HS PO ; Start 06/07/18 at 21:00; Stop 06/07/18 at 21: 00; Status DC Haloperidol Lactate (Haldol) 5 mg DAILY IM Last administered on 06/09/18at 07:51 ; Start 06/07/18 at 19:15; Stop 06/09/18 at 09:41; Status DC Estradiol (Estrace) 1 speedy QMTH VG ; Start 06/11/18 at 21:00; Stop 06/18/18 at 11 :41; Status DC Haloperidol Lactate (Haldol) 5 mg 1X ONCE IM Last administered on 06/09/18at 09 :43; Start 06/09/18 at 09:45; Stop 06/09/18 at 09:46; Status DC Haloperidol Lactate (Haldol) 10 mg DAILY IM Last administered on 06/14/18at 08: 40; Start 06/10/18 at 09:00; Stop 06/14/18 at 13:06; Status DC Hydroxyzine HCl (Atarax) 50 mg 1X ONCE PO Last administered on 06/09/18at 17:26 ; Start 06/09/18 at 17:15; Stop 06/09/18 at 17:24; Status DC Hydroxyzine HCl (Atarax) 50 mg 1X ONCE PO Last administered on 06/09/18at 18:29 ; Start 06/09/18 at 18:25; Stop 06/09/18 at 18:26; Status DC Benztropine Mesylate (Cogentin) 1 mg QHS PO Last administered on 06/21/18at 21:57 ; Start 06/10/18 at 21:00; Stop 06/22/18 at 16:50; Status DC [place] Carbonate 300 mg HS PO Last administered on 06/13/18at 19:20; Start at 21:00; Stop 06/14/18 at 13:06; Status DC Hydroxyzine HCl (Atarax) 50 mg PRN Q2HR PRN PO SEDATION Last administered on 06/20/18at 01:30; Start 06/11/18 at 15:00 Trazodone HCl (Desyrel) 100 mg PRN 1X PRN PO insomnia Last administered on 06/12at 04:16; Start 06/12/18 at 03:15 Lorazepam (Ativan Intensol) 0.5 mg 1X ONCE SL Last administered on 06/13/18 21:51; Start 06/13/18 at 18:15; Stop 06/13/18 at 18:16; Status DC Lorazepam (Ativan) 1 mg DAILY IM Last administered on 06/23/18 08:16; Start at 09:50; Stop 06/24/18 at 15:40; Status DC Haloperidol Lactate (Haldol) 5 mg DAILY IM Last administered on 06/16/18 09:54 ; Start 06/15/18 at 09:00; Stop 06/18/18 at 10:45; Status DC [place] Carbonate 300 mg BID PO Last administered on 06/18/18 08:14; Start at 21:00; Stop 06/18/18 at 15:03; Status DC Clozapine (Clozaril) 300 mg DAILY PO Last administered on 06/26/18 09:22; Start 06/16/18 at 09:00 Clozapine (Clozaril) 25 mg DAILY PO Last administered on 06/26/18 09:21; Start 06/16/18 at 09:00 Estradiol (Estrace) 1 speedy MoTh VG Last administered on 06/18/18 20:05; Start 06/18/18 at 21:00 [place] Carbonate 300 mg DAILY PO Last administered on 06/26/18 09:21; Start at 09:00 [place] Citrate 5.3 meq QHS PO Last administered on 06/26/18 20:09; Start 06/18 at 21:00 Levothyroxine Sodium (Synthroid) 75 mcg 1X ONCE PO Last administered on 07:53; Start 06/19/18 at 07:00; Stop 06/19/18 at 07:01; Status DC Benztropine Mesylate (Cogentin) 1.5 mg QHS PO Last administered on 06/24/18 19: 58; Start 06/22/18 at 21:00; Stop 06/25/18 at 17:05; Status DC Benztropine Mesylate (Cogentin) 1 mg QHS PO Last administered on 06/26/18 20:07 ; Start 06/25/18 at 21:00 Active Scripts Active Reported Hydroxyzine Hcl 10 Mg Tablet 10 Mg PO PRN Q2HR PRN Clozapine 100 Mg Tablet 1 Tab PO 1700 Remeron (Mirtazapine) 15 Mg Tablet 1 Tab PO 1700 Depakote Er (Divalproex Sodium) 500 Mg Tab.er.24h 750 Mg PO 1700 Nystatin 15 Gm Powder 1 Speedy TP BID Lidocaine 1 Each Adh..patch 1 Each TP DAILY Lotrimin Af (Clotrimazole) 12 Gm Cream..g. 1 Speedy TP BID PRN Sorbitol (Sorbitol Solution) 1 Ml Solution 30 Ml PO PRN DAILY PRN Trazodone Hcl 50 Mg Tablet 100 Mg PO QHS PRN Elmer-128 (Sodium Chloride) 3.5 Gm Oint...g. 1 Speedy OP HS Lipitor (Atorvastatin Calcium) 20 Mg Tablet 20 Mg PO DAILYWSUP Levothyroxine Sodium 75 Mcg Tablet 75 Mcg PO DAILYAC Estrace (Estradiol) 42.5 Gm Cream.appl 1 Speedy VG 2X WEEK Q FRI, Endocet 10-325 Mg Tablet (Oxycodone Hcl/Acetaminophen) 1 Each Tablet 1 Each PO PRN Q6HRS PRN Vitamin B-12 (Cyanocobalamin (Vitamin B-12)) 1,000 Mcg Tablet 1,000 Mcg PO DAILY Maalox Advanced Suspension (Mag Hydrox/Aluminum Hyd/Simeth) 355 Ml Oral.susp 15 Ml PO PRN AFTMEALHC PRN Analgesic [place] (Methyl Salicylate/Menthol) 28 Gm Oint...g. 1 Speedy TP PRN QID PRN Risperidone 1 Mg Tablet 1.5 Mg PO 1700 Refresh Classic Eye Drops (Polyvinyl Alcohol/Povidone/Pf) 1 Each Droperette 1 Each OU TID PRN Trazodone Hcl 50 Mg Tablet 100 Mg PO DAILYWSUP Norvasc (Amlodipine Besylate) 5 Mg Tablet 10 Mg PO DAILY Miralax (Polyethylene Glycol 3350) 17 Gm Powd.pack 17 Gm PO DAILY Milk Of Magnesia (Magnesium Hydroxide) 2,400 Mg/10 Ml Oral.susp 2,400 Mg PO PRN DAILY PRN Tylenol (Acetaminophen) 325 Mg Tablet 650 Mg PO PRN Q6HRS PRN I have reviewed the current psychotropics carefully including drug interactions. Risk benefit ratio favors no change other than as noted in my dictated progress note. 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
--- NOTE | 2018-06-26 23:41 | NUR ---
Nursing Note Pt isolative, but compliant and cooperative. Denies complaints or pain.
--- NOTE | 2018-06-27 03:58 | PN ---
DATE: 06/25/2018 This late entry for 06/25/2018 covers elements not covered in my initial note. SUBJECTIVE: I met with the patient in the evening. The patient slept 9-3/4 hours previous night. She has been doing better, more compliant with medication, does have a shuffling gait with a walker. [place] level on 06/24/2018 is 0.7. REVIEW OF SYSTEMS: Still complains of some drooling, but no CV, , pulmonary, eye system symptoms on review. Gait slightly unsteady. MENTAL STATUS EXAM: Reasonably oriented. Speech is coherent, abstraction fair, computation impaired, language function intact. No suicidal or homicidal ideation. Mood and affect are improved. LABORATORY DATA: Reviewed. IMPRESSION: Bipolar 1 disorder, mixed with psychotic features, in partial remission. Rest unchanged. PLAN: Continue psychotropics from initial note. Reduce Cogentin from 1.5 mg at bedtime down to 1 mg at bedtime. Rest unchanged. MAN Rox WATT MD DR: SANCHEZ/fredrick JOB#: [id number] / [id number]
[2018-06-27] MEDS: LEVOTHYROXINE 75 MCG TABLET PO SCH (04:52)
[2018-06-27 06:36] VITALS: BP 118/79
[2018-06-27] MEDS: FUROSEMIDE 20 MG TABLET PO SCH (08:13)
[2018-06-27] MEDS: LITHIUM CARBONATE 300 MG TABLET PO SCH (08:13)
[2018-06-27] MEDS: POLYETHYLENE GLYCOL 3350 17 GM PACKET. PO SCH (08:13)
[2018-06-27] MEDS: cloZAPine 100 MG TABLET PO SCH (08:13)
[2018-06-27] MEDS: cloZAPine 25 MG TABLET PO SCH (08:13)
[2018-06-27] MEDS: prednisoLONE ACETATE 1% OPHTH SUSPENSION 5ML BOTTLE. OD SCH (08:13)
[2018-06-27] MEDS: amLODIPine BESYLATE 5 MG TABLET PO SCH (08:14)
[2018-06-27] MEDS: CYANOCOBALAMIN (VITAMIN B-12) 1,000 MCG TABLET. PO SCH (08:14)
[2018-06-27 09:25] LABS: BASO % 1 % (0-3); EOS # 0.2 x10^3/uL (0.0-0.7); EOS % 4 % (0-3); HEMATOCRIT 38.9 % (36.0-47.0); HEMOGLOBIN 12.9 g/dL (12.0-15.5); LYMPH # 1.1 x10^3/uL (1.0-4.8); LYMPH % 23 % (24-48); MEAN CORPUSCULAR HEMOGLOBIN 29 pg (25-35); MEAN CORPUSCULAR HGB CONC 33 g/dL (31-37); MEAN CORPUSCULAR VOLUME 87 fL (79-100); MONO # 0.6 x10^3/uL (0.0-1.1); MONO % 12 % (0-9); NEUT # 2.9 x10^3uL (1.8-7.7); NEUT % 61 % (31-73); PLATELET COUNT 175 x10^3/uL (140-400); RED BLOOD COUNT 4.46 x10^6/uL (3.50-5.40); RED CELL DISTRIBUTION WIDTH 16.2 % (11.5-14.5); WHITE BLOOD COUNT 4.8 x10^3/uL (4.0-11.0)
--- NOTE | 2018-06-27 09:30 | NUR ---
Pt has been calm, cooperative, compliant. No agitation or aggression thus far this shift. She is able to focus on tasks and is med compliant. She is withdrawn to her room.
[2018-06-27 09:39] LABS: ALBUMIN 3.1 g/dL (3.4-5.0); ALBUMIN/GLOBULIN RATIO 0.8 (1.0-1.7); CALCIUM 9.7 mg/dL (8.5-10.1); CREATININE 1.2 mg/dL (0.6-1.0); GFR 44.5; POTASSIUM 4.2 mmol/L (3.5-5.1); TOTAL BILIRUBIN 0.3 mg/dL (0.2-1.0); TOTAL PROTEIN 6.8 g/dL (6.4-8.2)
[2018-06-27 16:48] VITALS: BP 136/89
[2018-06-27] MEDS: ATORVASTATIN CALCIUM 20 MG TABLET PO SCH (21:05)
[2018-06-27] MEDS: MIRTAZAPINE 7.5 MG TABLET. PO SCH (21:05)
[2018-06-27] MEDS: DIVALPROEX ER 500 MG TAB.ER.24H PO SCH (21:05)
[2018-06-27] MEDS: BENZTROPINE MESYLATE 1 MG TABLET PO SCH (21:05)
[2018-06-27] MEDS: LITHIUM CITRATE PO SCH (21:06)
--- NOTE | 2018-06-27 21:35 | PN ---
DATE: 06/24/2018 PSYCHIATRIC PROGRESS NOTE This late entry of 06/24/2018, covers elements not covered in my initial note. SUBJECTIVE: I met with the patient in the evening, staffed a treatment team meeting with the entire team. The patient slept 8 hours previous night. Appetite 100%. No behavioral dyscontrol, agitation, aggression, amita, or psychosis noted, though she does get paranoid at times. We stopped the IM Haldol and IM Ativan as well. We are going to go ahead and check a lithium level and the social service staff are looking at level 2 placement, possibly in [place]. REVIEW OF SYSTEMS: Positive for some ongoing hypersalivation. No CV, , pulmonary, eye system symptoms on review. Does admit to some unsteadiness of gait. MENTAL STATUS EXAM: Oriented to herself, situation reasonably oriented. Speech coherent, has some latency. Abstraction fair, computation impaired, language function intact, attention span short. Mood and affect less manic, less labile, less psychotic. LABORATORY DATA: Reviewed. IMPRESSION: Bipolar 1 disorder, mixed with psychotic features versus manic with psychotic features. Rest unchanged. PLAN: Continue psychotropics from initial note. Check a lithium level. Adjust further as clinically indicated. May reduce the Cogentin in due course. MAN Rox WATT MD DR: SANCHEZ/fredrick JOB#: [id number] / [id number]
--- NOTE | 2018-06-27 22:01 | PDOC ---
Exam Note: Julian Note: Please also refer to the separate dictated note~for this date of service dictated separately.~Patient seen individually. Discussed the patient with Nursing staff reviewed the chart.~Reviewed interim history and current functioning. Reviewed vital signs,~Labs/ Radiology~and current medications noted below. Continue current treatment with the changes noted in the dictated addendum note Assessment: Vital Signs: Vital Signs Date Time Temp Pulse Resp B/P (MAP) Pulse Ox O2 Delivery O2 Flow Rate FiO2 06/27/18 16:48 97.4 104 20 136/89 (105) 95 06/21/18 16:17 Room Air I&O Intake and Output 06/27/18 07:01 Intake Total 720 ml Balance 720 ml Intake Oral 720 ml Labs: Laboratory Tests Test 06/27/18 09:10 White Blood Count 4.8 x10^3/uL (4.0-11.0) Red Blood Count 4.46 x10^6/uL (3.50-5.40) Hemoglobin 12.9 g/dL (12.0-15.5) Hematocrit 38.9 % (36.0-47.0) Mean Corpuscular Volume 87 fL (79-100) Mean Corpuscular Hemoglobin 29 pg (25-35) Mean Corpuscular Hemoglobin Concent 33 g/dL (31-37) Red Cell Distribution Width 16.2 % (11.5-14.5) H Platelet Count 175 x10^3/uL (140-400) Neutrophils (%) (Auto) 61 % (31-73) Lymphocytes (%) (Auto) 23 % (24-48) L Monocytes (%) (Auto) 12 % (0-9) H Eosinophils (%) (Auto) 4 % (0-3) H Basophils (%) (Auto) 1 % (0-3) Neutrophils # (Auto) 2.9 x10^3uL (1.8-7.7) Lymphocytes # (Auto) 1.1 x10^3/uL (1.0-4.8) Monocytes # (Auto) 0.6 x10^3/uL (0.0-1.1) Eosinophils # (Auto) 0.2 x10^3/uL (0.0-0.7) Basophils # (Auto) 0.0 x10^3/uL (0.0-0.2) Sodium Level 139 mmol/L (136-145) Potassium Level 4.2 mmol/L (3.5-5.1) Chloride Level 103 mmol/L (98-107) Carbon Dioxide Level 30 mmol/L (21-32) Anion Gap 6 (6-14) Blood Urea Nitrogen 16 mg/dL (7-20) Creatinine 1.2 mg/dL (0.6-1.0) H Estimated GFR (Cockcroft-Gault) 44.5 BUN/Creatinine Ratio 13 (6-20) Glucose Level 163 mg/dL (70-99) H Calcium Level 9.7 mg/dL (8.5-10.1) Total Bilirubin 0.3 mg/dL (0.2-1.0) Aspartate Amino Transferase (AST) 15 U/L (15-37) Alanine Aminotransferase (ALT) 12 U/L (14-59) L Alkaline Phosphatase 92 U/L (46-116) Total Protein 6.8 g/dL (6.4-8.2) Albumin 3.1 g/dL (3.4-5.0) L Albumin/Globulin Ratio 0.8 (1.0-1.7) L Current Medications: Meds: Current Medications Acetaminophen (Tylenol) 650 mg PRN Q6HRS PRN PO PAIN / TEMP Last administered on 06/23/18 05:51; Start 06/06/18 at 04:15 Multi-Ingredient Ointment (Analgesic [place]) 1 speedy PRN QID PRN TP MUSCLE PAIN Last administered on 06/07/18at 22:53; Start 06/06/18 at 04:15 Al Hydroxide/Mg Hydroxide (Mylanta Plus Xs) 15 ml PRN AFTMEALHC PRN PO DYSPEPSIA; Start 06/06/18 at 04:15 Magnesium Hydroxide (Milk Of Magnesia) 2,400 mg PRN QHS PRN PO CONSTIPATION; Start 06/06/18 at 04:15 Amlodipine Besylate (Norvasc) 5 mg DAILY PO Last administered on 06/27/18 08:14 ; Start 06/06/18 at 09:00 Atorvastatin Calcium (Lipitor) 20 mg QHS PO Last administered on 06/27/18 21:05 ; Start 06/06/18 at 21:00 Clozapine (Clozaril) 100 mg [id number] PO Last administered on 06/15/18 07:44; Start 06/06/18 at 09:00; Stop 06/15/18 at 18:36; Status DC Clozapine (Clozaril) 50 mg BID94 PO Last administered on 06/15/18 07:44; Start 06/06/18 at 09:00; Stop 06/15/18 at 18:36; Status DC Cyanocobalamin (Vitamin B-12) 1,000 mcg DAILY PO Last administered on 06/27/18 08:14; Start 06/06/18 at 09:00 Divalproex Sodium (Depakote Er) 1,000 mg QHS PO Last administered on 06/27/18 21:05; Start 06/06/18 at 21:00 Vitamin D (Vitamin D3) 50,000 unit WEEKLY PO Last administered on 06/21/18 08: 02; Start 06/07/18 at 09:00 Estradiol (Estrace) 1 speedy QMTH VG Last administered on 06/08/18 15:41; Start 06/08/18 at 16:00; Stop 06/08/18 at 21:19; Status DC Furosemide (Lasix) 20 mg DAILY PO Last administered on 06/27/18 08:13; Start at 09:00 Levothyroxine Sodium (Synthroid) 75 mcg DAILY06 PO Last administered on 04:52; Start 06/06/18 at 06:00 Melatonin 6 mg PRN QHS PRN PO INSOMNIA Last administered on 06/13/18 22:23; Start 06/06/18 at 04:30 Magnesium Hydroxide (Milk Of Magnesia) 2,400 mg PRN DAILY PRN PO CONSTIPATION; Start 06/06/18 at 04:30; Status UNV Polyethylene Glycol (miraLAX) 17 gm DAILY PO Last administered on 06/27/18 08: 13; Start 06/06/18 at 09:00 Prednisolone Acetate (Pred Forte) 1 drop DAILY OD Last administered on 08:13; Start 06/06/18 at 09:00 Artificial Tears (Refresh Classic) 1 drop TID PRN PRN OU DRY EYE; Start at 04:30 Mirtazapine (Remeron) 7.5 mg QHS PO Last administered on 2/9/19at 21:05; Start 06/06/18 at 21:00 Trazodone HCl (Desyrel) 100 mg PRN QHS PRN PO INSOMNIA, MAY REPEAT X3 Last administered on 06/23/18at 20:10; Start 06/06/18 at 19:00 Olanzapine (ZyPREXA ZYDIS) 5 mg PRN Q2HR PRN PO PSYCHOSIS Last administered on 06/17/18at 22:09; Start 06/07/18 at 14:00 Haloperidol (Haldol) 5 mg HS PO ; Start 06/07/18 at 21:00; Stop 06/07/18 at 21: 00; Status DC Haloperidol Lactate (Haldol) 5 mg DAILY IM Last administered on 06/09/18at 07:51 ; Start 06/07/18 at 19:15; Stop 06/09/18 at 09:41; Status DC Estradiol (Estrace) 1 speedy QMTH VG ; Start 06/11/18 at 21:00; Stop 06/18/18 at 11 :41; Status DC Haloperidol Lactate (Haldol) 5 mg 1X ONCE IM Last administered on 06/09/18at 09 :43; Start 06/09/18 at 09:45; Stop 06/09/18 at 09:46; Status DC Haloperidol Lactate (Haldol) 10 mg DAILY IM Last administered on 06/14/18at 08: 40; Start 06/10/18 at 09:00; Stop 06/14/18 at 13:06; Status DC Hydroxyzine HCl (Atarax) 50 mg 1X ONCE PO Last administered on 06/09/18at 17:26 ; Start 06/09/18 at 17:15; Stop 06/09/18 at 17:24; Status DC Hydroxyzine HCl (Atarax) 50 mg 1X ONCE PO Last administered on 06/09/18at 18:29 ; Start 06/09/18 at 18:25; Stop 06/09/18 at 18:26; Status DC Benztropine Mesylate (Cogentin) 1 mg QHS PO Last administered on 06/21/18at 21:57 ; Start 06/10/18 at 21:00; Stop 06/22/18 at 16:50; Status DC [place] Carbonate 300 mg HS PO Last administered on 06/13/18at 19:20; Start at 21:00; Stop 06/14/18 at 13:06; Status DC Hydroxyzine HCl (Atarax) 50 mg PRN Q2HR PRN PO SEDATION Last administered on 01:30; Start 06/11/18 at 15:00 Trazodone HCl (Desyrel) 100 mg PRN 1X PRN PO insomnia Last administered on 06/12 04:16; Start 06/12/18 at 03:15 Lorazepam (Ativan Intensol) 0.5 mg 1X ONCE SL Last administered on 06/13/18 21:51; Start 06/13/18 at 18:15; Stop 06/13/18 at 18:16; Status DC Lorazepam (Ativan) 1 mg DAILY IM Last administered on 06/23/18 08:16; Start at 09:50; Stop 06/24/18 at 15:40; Status DC Haloperidol Lactate (Haldol) 5 mg DAILY IM Last administered on 06/16/18 09:54 ; Start 06/15/18 at 09:00; Stop 06/18/18 at 10:45; Status DC [place] Carbonate 300 mg BID PO Last administered on 06/18/18 08:14; Start at 21:00; Stop 06/18/18 at 15:03; Status DC Clozapine (Clozaril) 300 mg DAILY PO Last administered on 06/27/18 08:13; Start 06/16/18 at 09:00 Clozapine (Clozaril) 25 mg DAILY PO Last administered on 06/27/18 08:13; Start 06/16/18 at 09:00 Estradiol (Estrace) 1 speedy MoTh VG Last administered on 06/18/18at 20:05; Start 06/18/18 at 21:00 [place] Carbonate 300 mg DAILY PO Last administered on 06/27/18 08:13; Start at 09:00 [place] Citrate 5.3 meq QHS PO Last administered on 06/27/18 21:06; Start 06/18 at 21:00 Levothyroxine Sodium (Synthroid) 75 mcg 1X ONCE PO Last administered on 07:53; Start 06/19/18 at 07:00; Stop 06/19/18 at 07:01; Status DC Benztropine Mesylate (Cogentin) 1.5 mg QHS PO Last administered on 06/24/18at 19: 58; Start 06/22/18 at 21:00; Stop 06/25/18 at 17:05; Status DC Benztropine Mesylate (Cogentin) 1 mg QHS PO Last administered on 06/27/18at 21:05 ; Start 06/25/18 at 21:00 Active Scripts Active Reported Hydroxyzine Hcl 10 Mg Tablet 10 Mg PO PRN Q2HR PRN Clozapine 100 Mg Tablet 1 Tab PO 1700 Remeron (Mirtazapine) 15 Mg Tablet 1 Tab PO 1700 Depakote Er (Divalproex Sodium) 500 Mg Tab.er.24h 750 Mg PO 1700 Nystatin 15 Gm Powder 1 Speedy TP BID Lidocaine 1 Each Adh..patch 1 Each TP DAILY Lotrimin Af (Clotrimazole) 12 Gm Cream..g. 1 Speedy TP BID PRN Sorbitol (Sorbitol Solution) 1 Ml Solution 30 Ml PO PRN DAILY PRN Trazodone Hcl 50 Mg Tablet 100 Mg PO QHS PRN [place]mer-128 (Sodium Chloride) 3.5 Gm Oint...g. 1 Speedy OP HS Lipitor (Atorvastatin Calcium) 20 Mg Tablet 20 Mg PO DAILYWSUP Levothyroxine Sodium 75 Mcg Tablet 75 Mcg PO DAILYAC Estrace (Estradiol) 42.5 Gm Cream.appl 1 Speedy VG 2X WEEK Q FRI, Endocet 10-325 Mg Tablet (Oxycodone Hcl/Acetaminophen) 1 Each Tablet 1 Each PO PRN Q6HRS PRN Vitamin B-12 (Cyanocobalamin (Vitamin B-12)) 1,000 Mcg Tablet 1,000 Mcg PO DAILY Maalox Advanced Suspension (Mag Hydrox/Aluminum Hyd/Simeth) 355 Ml Oral.susp 15 Ml PO PRN AFTMEALHC PRN Analgesic [place] (Methyl Salicylate/Menthol) 28 Gm Oint...g. 1 Speedy TP PRN QID PRN Risperidone 1 Mg Tablet 1.5 Mg PO 1700 Refresh Classic Eye Drops (Polyvinyl Alcohol/Povidone/Pf) 1 Each Droperette 1 Each OU TID PRN Trazodone Hcl 50 Mg Tablet 100 Mg PO DAILYWSUP Norvasc (Amlodipine Besylate) 5 Mg Tablet 10 Mg PO DAILY Miralax (Polyethylene Glycol 3350) 17 Gm Powd.pack 17 Gm PO DAILY Milk Of Magnesia (Magnesium Hydroxide) 2,400 Mg/10 Ml Oral.susp 2,400 Mg PO PRN DAILY PRN Tylenol (Acetaminophen) 325 Mg Tablet 650 Mg PO PRN Q6HRS PRN I have reviewed the current psychotropics carefully including drug interactions. Risk benefit ratio favors no change other than as noted in my dictated progress note. 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
--- NOTE | 2018-06-27 23:47 | PN ---
DATE: 06/26/2018 PSYCHIATRIC PROGRESS NOTE This late entry 06/26/2018 covers elements not covered in my initial note. SUBJECTIVE: I met with the patient in the evening in her room. She slept 8-1/4 hours previous night. She has been withdrawn, had a good day, somewhat sedated, ate her breakfast, then went to bed. REVIEW OF SYSTEMS: Still complains of some drooling. No CV, , pulmonary, eye, ENT system symptoms on review. MENTAL STATUS EXAM: Oriented to herself and situation. Speech moderate latency, low in volume. Abstraction fair, computation impaired, language function intact. Mood and affect somewhat withdrawn. LABORATORY DATA: Reviewed. IMPRESSION: Unchanged from initial note. PLAN: No change from initial note. Check a lithium level on Friday. Rest unchanged. MAN Rox WATT MD DR: SANCHEZ/fredrick JOB#: [id number] / [id number]
--- NOTE | 2018-06-28 00:13 | NUR ---
Behavior Intervention Response and Plan: BIRP Note: Behavior: Assumed Care of patient, patient located in Patient Room at shift change. Patient exhibited the following behavior Calm, Compliant, Cooperative. Brief assessment on rounds of vital signs, medication needs, lab studies, and pain. Treatment plan problems . Intervention: Patient assessed and the following interventions initiated safety checks 15 Minute Checks Personal Alarm in place , Cognitive Assessment , Head to toe Assessment. Response: After interactions and interventions patient responded in the following manner, Calm , Cooperative ,Compliant. Continue to assess behaviors and condition will continue to monitor throughout the shift as needed. Patient educated on ADL's, and hand hygiene. 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 Continue to assess patient for changes in above assessment. Monitor for medication needs, pain, and safety concerns. Hourly rounding performed to ensure safe environment.
--- NOTE | 2018-06-28 05:00 | NUR ---
Dr Steinberg D/C'd clozapine 325mg daily and ordered Clozapine 325mg @ hs starting 06/28
[2018-06-28] MEDS: LEVOTHYROXINE 75 MCG TABLET PO SCH (05:14)
[2018-06-28 06:51] VITALS: BP 118/76
[2018-06-28] MEDS: prednisoLONE ACETATE 1% OPHTH SUSPENSION 5ML BOTTLE. OD SCH (08:41)
[2018-06-28] MEDS: FUROSEMIDE 20 MG TABLET PO SCH (08:41)
[2018-06-28] MEDS: POLYETHYLENE GLYCOL 3350 17 GM PACKET. PO SCH (08:41)
[2018-06-28] MEDS: LITHIUM CARBONATE 300 MG TABLET PO SCH (08:41)
[2018-06-28] MEDS: CHOLECALCIFEROL (VITAMIN D3) 50,000 UNIT CAPSULE PO SCH (08:42)
[2018-06-28] MEDS: amLODIPine BESYLATE 5 MG TABLET PO SCH (08:42)
[2018-06-28] MEDS: CYANOCOBALAMIN (VITAMIN B-12) 1,000 MCG TABLET. PO SCH (08:42)
--- NOTE | 2018-06-28 11:20 | NUR ---
Pt is cooperative, compliant, and appropriate. Pt interacts appropriately with peers and staff. No hallucinations, delusions at this time.
[2018-06-28 17:05] VITALS: BP 126/77
[2018-06-28] MEDS: BENZTROPINE MESYLATE 1 MG TABLET PO SCH (19:22)
[2018-06-28] MEDS: ATORVASTATIN CALCIUM 20 MG TABLET PO SCH (19:22)
[2018-06-28] MEDS: MIRTAZAPINE 7.5 MG TABLET. PO SCH (19:22)
[2018-06-28] MEDS: DIVALPROEX ER 500 MG TAB.ER.24H PO SCH (19:22)
[2018-06-28] MEDS: cloZAPine 100 MG TABLET PO SCH (19:36)
[2018-06-28] MEDS: cloZAPine 25 MG TABLET PO SCH (19:36)
[2018-06-28] MEDS: LITHIUM CITRATE PO SCH (19:37)
--- NOTE | 2018-06-28 22:48 | PDOC ---
Exam Note: Julian Note: Please also refer to the separate dictated note~for this date of service dictated separately.~Patient seen individually. Discussed the patient with Nursing staff reviewed the chart.~Reviewed interim history and current functioning. Reviewed vital signs,~Labs/ Radiology~and current medications noted below. Continue current treatment with the changes noted in the dictated addendum note Assessment: Vital Signs: Vital Signs Date Time Temp Pulse Resp B/P (MAP) Pulse Ox O2 Delivery O2 Flow Rate FiO2 06/28/18 17:05 98.1 105 18 126/77 (93) 97 06/28/18 06:51 Room Air I&O Intake and Output 06/28/18 07:01 Intake Total 1200 ml Balance 1200 ml Intake Oral 1200 ml Labs: Laboratory Tests Test 06/28/18 07:34 [place] Level 0.6 mmol/L (0.6-1.2) [place] Last Dose Date 06/27/18 [place] Last Dose Time 2100 Current Medications: Meds: Current Medications Acetaminophen (Tylenol) 650 mg PRN Q6HRS PRN PO PAIN / TEMP Last administered on 06/23/18 05:51; Start 06/06/18 at 04:15 Multi-Ingredient Ointment (Analgesic [place]) 1 speedy PRN QID PRN TP MUSCLE PAIN Last administered on 06/07/18 22:53; Start 06/06/18 at 04:15 Al Hydroxide/Mg Hydroxide (Mylanta Plus Xs) 15 ml PRN AFTMEALHC PRN PO DYSPEPSIA; Start 06/06/18 at 04:15 Magnesium Hydroxide (Milk Of Magnesia) 2,400 mg PRN QHS PRN PO CONSTIPATION; Start 06/06/18 at 04:15 Amlodipine Besylate (Norvasc) 5 mg DAILY PO Last administered on 06/28/18at 08: 42; Start 06/06/18 at 09:00 Atorvastatin Calcium (Lipitor) 20 mg QHS PO Last administered on 06/28/18 19: 22; Start 06/06/18 at 21:00 Clozapine (Clozaril) 100 mg [id number] PO Last administered on 06/15/18 07:44; Start 06/06/18 at 09:00; Stop 06/15/18 at 18:36; Status DC Clozapine (Clozaril) 50 mg [id number] PO Last administered on 06/15/18 07:44; Start 06/06/18 at 09:00; Stop 06/15/18 at 18:36; Status DC Cyanocobalamin (Vitamin B-12) 1,000 mcg DAILY PO Last administered on 08:42; Start 06/06/18 at 09:00 Divalproex Sodium (Depakote Er) 1,000 mg QHS PO Last administered on 06/28/18 19:22; Start 06/06/18 at 21:00 Vitamin D (Vitamin D3) 50,000 unit WEEKLY PO Last administered on 06/28/18 08: 42; Start 06/07/18 at 09:00 Estradiol (Estrace) 1 speedy QMTH VG Last administered on 06/08/18 15:41; Start 06/08/18 at 16:00; Stop 06/08/18 at 21:19; Status DC Furosemide (Lasix) 20 mg DAILY PO Last administered on 06/28/18 08:41; Start 06/06/18 at 09:00 Levothyroxine Sodium (Synthroid) 75 mcg DAILY06 PO Last administered on 05:14; Start 06/06/18 at 06:00 Melatonin 6 mg PRN QHS PRN PO INSOMNIA Last administered on 06/13/18 22:23; Start 06/06/18 at 04:30 Magnesium Hydroxide (Milk Of Magnesia) 2,400 mg PRN DAILY PRN PO CONSTIPATION; Start 06/06/18 at 04:30; Status UNV Polyethylene Glycol (miraLAX) 17 gm DAILY PO Last administered on 06/28/18 08: 41; Start 06/06/18 at 09:00 Prednisolone Acetate (Pred Forte) 1 drop DAILY OD Last administered on 08:41; Start 06/06/18 at 09:00 Artificial Tears (Refresh Classic) 1 drop TID PRN PRN OU DRY EYE; Start at 04:30 Mirtazapine (Remeron) 7.5 mg QHS PO Last administered on 06/28/18 19:22; Start 06/06/18 at 21:00 Trazodone HCl (Desyrel) 100 mg PRN QHS PRN PO INSOMNIA, MAY REPEAT X3 Last administered on 2/5/19at 20:10; Start 06/06/18 at 19:00 Olanzapine (ZyPREXA ZYDIS) 5 mg PRN Q2HR PRN PO PSYCHOSIS Last administered on 06/17/18at 22:09; Start 06/07/18 at 14:00 Haloperidol (Haldol) 5 mg HS PO ; Start 06/07/18 at 21:00; Stop 06/07/18 at 21: 00; Status DC Haloperidol Lactate (Haldol) 5 mg DAILY IM Last administered on 06/09/18at 07:51 ; Start 06/07/18 at 19:15; Stop 06/09/18 at 09:41; Status DC Estradiol (Estrace) 1 speedy QMTH VG ; Start 06/11/18 at 21:00; Stop 06/18/18 at 11 :41; Status DC Haloperidol Lactate (Haldol) 5 mg 1X ONCE IM Last administered on 06/09/18at 09 :43; Start 06/09/18 at 09:45; Stop 06/09/18 at 09:46; Status DC Haloperidol Lactate (Haldol) 10 mg DAILY IM Last administered on 06/14/18at 08: 40; Start 06/10/18 at 09:00; Stop 06/14/18 at 13:06; Status DC Hydroxyzine HCl (Atarax) 50 mg 1X ONCE PO Last administered on 06/09/18at 17:26 ; Start 06/09/18 at 17:15; Stop 06/09/18 at 17:24; Status DC Hydroxyzine HCl (Atarax) 50 mg 1X ONCE PO Last administered on 06/09/18at 18:29 ; Start 06/09/18 at 18:25; Stop 06/09/18 at 18:26; Status DC Benztropine Mesylate (Cogentin) 1 mg QHS PO Last administered on 06/21/18at 21:57 ; Start 06/10/18 at 21:00; Stop 06/22/18 at 16:50; Status DC [place] Carbonate 300 mg HS PO Last administered on 06/13/18at 19:20; Start at 21:00; Stop 06/14/18 at 13:06; Status DC Hydroxyzine HCl (Atarax) 50 mg PRN Q2HR PRN PO SEDATION Last administered on 06/20/18at 01:30; Start 06/11/18 at 15:00 Trazodone HCl (Desyrel) 100 mg PRN 1X PRN PO insomnia Last administered on 06/12 04:16; Start 06/12/18 at 03:15 Lorazepam (Ativan Intensol) 0.5 mg 1X ONCE SL Last administered on 06/13/18 21:51; Start 06/13/18 at 18:15; Stop 06/13/18 at 18:16; Status DC Lorazepam (Ativan) 1 mg DAILY IM Last administered on 06/23/18 08:16; Start at 09:50; Stop 06/24/18 at 15:40; Status DC Haloperidol Lactate (Haldol) 5 mg DAILY IM Last administered on 06/16/18 09:54 ; Start 06/15/18 at 09:00; Stop 06/18/18 at 10:45; Status DC [place] Carbonate 300 mg BID PO Last administered on 06/18/18 08:14; Start at 21:00; Stop 06/18/18 at 15:03; Status DC Clozapine (Clozaril) 300 mg DAILY PO Last administered on 06/27/18 08:13; Start 06/16/18 at 09:00; Stop 06/28/18 at 00:33; Status DC Clozapine (Clozaril) 25 mg DAILY PO Last administered on 06/27/18 08:13; Start 06/16/18 at 09:00; Stop 06/28/18 at 00:33; Status DC Estradiol (Estrace) 1 speedy MoTh VG Last administered on 06/18/18at 20:05; Start 06/18/18 at 21:00 [place] Carbonate 300 mg DAILY PO Last administered on 06/28/18 08:41; Start 06/19/18 at 09:00 [place] Citrate 5.3 meq QHS PO Last administered on 06/28/18 19:37; Start at 21:00 Levothyroxine Sodium (Synthroid) 75 mcg 1X ONCE PO Last administered on 07:53; Start 06/19/18 at 07:00; Stop 06/19/18 at 07:01; Status DC Benztropine Mesylate (Cogentin) 1.5 mg QHS PO Last administered on 2/6/19at 19: 58; Start 06/22/18 at 21:00; Stop 06/25/18 at 17:05; Status DC Benztropine Mesylate (Cogentin) 1 mg QHS PO Last administered on 06/28/18at 19: 22; Start 06/25/18 at 21:00 Clozapine (Clozaril) 300 mg HS PO Last administered on 06/28/18 19:36; Start 06/28/18 at 21:00 Clozapine (Clozaril) 25 mg HS PO Last administered on 06/28/18at 19:36; Start at 21:00 Active Scripts Active Reported Hydroxyzine Hcl 10 Mg Tablet 10 Mg PO PRN Q2HR PRN Clozapine 100 Mg Tablet 1 Tab PO 1700 Remeron (Mirtazapine) 15 Mg Tablet 1 Tab PO 1700 Depakote Er (Divalproex Sodium) 500 Mg Tab.er.24h 750 Mg PO 1700 Nystatin 15 Gm Powder 1 Speedy TP BID Lidocaine 1 Each Adh..patch 1 Each TP DAILY Lotrimin Af (Clotrimazole) 12 Gm Cream..g. 1 Speedy TP BID PRN Sorbitol (Sorbitol Solution) 1 Ml Solution 30 Ml PO PRN DAILY PRN Trazodone Hcl 50 Mg Tablet 100 Mg PO QHS PRN [place]-128 (Sodium Chloride) 3.5 Gm Oint...g. 1 Speedy OP HS Lipitor (Atorvastatin Calcium) 20 Mg Tablet 20 Mg PO DAILYWSUP Levothyroxine Sodium 75 Mcg Tablet 75 Mcg PO DAILYAC Estrace (Estradiol) 42.5 Gm Cream.appl 1 Speedy VG 2X WEEK Q FRI, Endocet 10-325 Mg Tablet (Oxycodone Hcl/Acetaminophen) 1 Each Tablet 1 Each PO PRN Q6HRS PRN Vitamin B-12 (Cyanocobalamin (Vitamin B-12)) 1,000 Mcg Tablet 1,000 Mcg PO DAILY Maalox Advanced Suspension (Mag Hydrox/Aluminum Hyd/Simeth) 355 Ml Oral.susp 15 Ml PO PRN AFTMEALHC PRN Analgesic [place] (Methyl Salicylate/Menthol) 28 Gm Oint...g. 1 Speedy TP PRN QID PRN Risperidone 1 Mg Tablet 1.5 Mg PO 1700 Refresh Classic Eye Drops (Polyvinyl Alcohol/Povidone/Pf) 1 Each Droperette 1 Each OU TID PRN Trazodone Hcl 50 Mg Tablet 100 Mg PO DAILYWSUP Norvasc (Amlodipine Besylate) 5 Mg Tablet 10 Mg PO DAILY Miralax (Polyethylene Glycol 3350) 17 Gm Powd.pack 17 Gm PO DAILY Milk Of Magnesia (Magnesium Hydroxide) 2,400 Mg/10 Ml Oral.susp 2,400 Mg PO PRN DAILY PRN Tylenol (Acetaminophen) 325 Mg Tablet 650 Mg PO PRN Q6HRS PRN I have reviewed the current psychotropics carefully including drug interactions. Risk benefit ratio favors no change other than as noted in my dictated progress note. 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
--- NOTE | 2018-06-28 23:36 | NUR ---
Nursing Note Pt is pleasant calm and cooperative. Smiles on approach, takes meds willingly. No complaints this pm.
[2018-06-29] MEDS: LEVOTHYROXINE 75 MCG TABLET PO SCH (05:30)
[2018-06-29 06:09] VITALS: BP 137/86
[2018-06-29 07:35] LABS: BASO % 0 % (0-3); EOS # 0.2 x10^3/uL (0.0-0.7); EOS % 4 % (0-3); HEMATOCRIT 39.6 % (36.0-47.0); LYMPH # 1.4 x10^3/uL (1.0-4.8); LYMPH % 24 % (24-48); MEAN CORPUSCULAR HEMOGLOBIN 29 pg (25-35); MEAN CORPUSCULAR HGB CONC 33 g/dL (31-37); MEAN CORPUSCULAR VOLUME 87 fL (79-100); MONO # 0.7 x10^3/uL (0.0-1.1); MONO % 13 % (0-9); NEUT # 3.3 x10^3uL (1.8-7.7); NEUT % 59 % (31-73); PLATELET COUNT 191 x10^3/uL (140-400); RED BLOOD COUNT 4.56 x10^6/uL (3.50-5.40); RED CELL DISTRIBUTION WIDTH 16.4 % (11.5-14.5); WHITE BLOOD COUNT 5.6 x10^3/uL (4.0-11.0)
[2018-06-29] MEDS: FUROSEMIDE 20 MG TABLET PO SCH (08:27)
[2018-06-29] MEDS: LITHIUM CARBONATE 300 MG TABLET PO SCH (08:27)
[2018-06-29] MEDS: POLYETHYLENE GLYCOL 3350 17 GM PACKET. PO SCH (08:27)
[2018-06-29] MEDS: prednisoLONE ACETATE 1% OPHTH SUSPENSION 5ML BOTTLE. OD SCH (08:27)
[2018-06-29] MEDS: CYANOCOBALAMIN (VITAMIN B-12) 1,000 MCG TABLET. PO SCH (08:28)
[2018-06-29] MEDS: amLODIPine BESYLATE 5 MG TABLET PO SCH (08:28)
--- NOTE | 2018-06-29 09:49 | PN ---
DATE: 06/27/2018 PSYCHIATRIC PROGRESS NOTE This late entry, 06/27/2018, covers elements not covered in my initial note. SUBJECTIVE: I met with the patient in the evening. The patient slept 8-1/2 hours previous night. She is verbally somewhat abrasive earlier in the day, better in the evening when I met with her. REVIEW OF SYSTEMS: Positive for some sedation and drooling, but this is better. She still ambulates with a walker, but slowly showing improvement. REVIEW OF SYSTEMS: No CV, , pulmonary, eye system symptoms on review. MENTAL STATUS EXAM: Oriented to herself and situation. Speech is coherent, less pressured. Abstraction fair, computation impaired, language function intact, attention span short. Mood and affect somewhat withdrawn. LABORATORY DATA: Reviewed. IMPRESSION: Unchanged from initial note. PLAN: Change Clozaril from 325 mg in the morning to the nighttime due to daytime sedation. Rest unchanged. Check labs on 06/29/2018. KIERSTEN WATT MD DR: SANCHEZ/fredrick JOB#: [id number] / [id number]
--- NOTE | 2018-06-29 11:29 | NUR ---
Pt is cooperative, compliant, and appropriate. Pt interacts appropriately with peers and staff. No hallucinations, delusions at this time. She is withdrawn to her room.
--- NOTE | 2018-06-29 14:00 | NUR ---
ROSALINE spoke with pt dtr, Ava to give her an update on pt. ROSALINE let Ava know that the Level II cannot be completed until the department of aging gets the signed paperwork back from Hardik, pt /DPOA. Ava reports that pt signed the forms and that they should have received them by now. Pt dtr is hopeful that pt will be able to discharge to [facility] as it is closer to pt . The next spot to consider is [facility]; otherwise the next place to look is [facility].
[2018-06-29 16:39] VITALS: BP 136/80
[2018-06-29] MEDS: ATORVASTATIN CALCIUM 20 MG TABLET PO SCH (19:43)
[2018-06-29] MEDS: BENZTROPINE MESYLATE 1 MG TABLET PO SCH (19:43)
[2018-06-29] MEDS: MIRTAZAPINE 7.5 MG TABLET. PO SCH (19:43)
[2018-06-29] MEDS: cloZAPine 100 MG TABLET PO SCH (19:43)
[2018-06-29] MEDS: DIVALPROEX ER 500 MG TAB.ER.24H PO SCH (19:44)
[2018-06-29] MEDS: ESTRADIOL 0.01% VAGINAL CREAM 42.5GM TUBE. VG SCH (19:44)
[2018-06-29] MEDS: cloZAPine 25 MG TABLET PO SCH (19:44)
[2018-06-29] MEDS: LITHIUM CITRATE PO SCH (19:46)
--- NOTE | 2018-06-30 03:24 | NUR ---
Nursing Note the patient was compliant with cares and medications and was appropriate with all interactions with staff and peers. The patient is currently sleeping in her room.
--- NOTE | 2018-06-30 03:44 | PN ---
DATE: 06/28/2018 PSYCHIATRIC PROGRESS NOTE This late entry 06/28/2018 covers elements not covered in my initial note. SUBJECTIVE: I met with the patient in the evening in her room. She slept 9-1/4 hours previous night. She has had no drooling, appears much less manic and psychotic. Does complain of some tiredness. REVIEW OF SYSTEMS: No CV, , pulmonary, eye, ENT system symptoms on review. Reliability varies. 1. MENTAL STATUS EXAM: Oriented to herself and situation. Speech coherent, has some latency. Abstraction fair, computation impaired, language function intact. Mood and affect appears less labile, less grandiose. LABORATORY DATA: Reviewed. IMPRESSION: Unchanged from initial note. PLAN: No change from initial note. We will perhaps repeat a lithium level. Follow the labs for her Clozaril as well. MAN Rox WATT MD DR: SANCHEZ/fredrick JOB#: [id number] / [id number]
[2018-06-30] MEDS: LEVOTHYROXINE 75 MCG TABLET PO SCH (05:43)
[2018-06-30 05:46] VITALS: BP 135/84
[2018-06-30] MEDS: CYANOCOBALAMIN (VITAMIN B-12) 1,000 MCG TABLET. PO SCH (09:15)
[2018-06-30] MEDS: prednisoLONE ACETATE 1% OPHTH SUSPENSION 5ML BOTTLE. OD SCH (09:15)
[2018-06-30] MEDS: LITHIUM CARBONATE 300 MG TABLET PO SCH (09:15)
[2018-06-30] MEDS: FUROSEMIDE 20 MG TABLET PO SCH (09:15)
[2018-06-30] MEDS: amLODIPine BESYLATE 5 MG TABLET PO SCH (09:15)
[2018-06-30] MEDS: POLYETHYLENE GLYCOL 3350 17 GM PACKET. PO SCH (09:15)
--- NOTE | 2018-06-30 09:20 | PDOC ---
Exam Note: Julian Note: Late entry for DOS 06.29.2018. Please also refer to the separate dictated note~ for this date of service dictated separately.~Patient seen individually. Discussed the patient with Nursing staff reviewed the chart.~Reviewed interim history and current functioning. Reviewed vital signs,~Labs/ Radiology~and current medications noted below. Continue current treatment with the changes noted in the dictated addendum note Assessment: Vital Signs: VS - Last 72 Hours, by Label Date Time Temp Pulse Resp B/P (MAP) Pulse Ox O2 Delivery O2 Flow Rate FiO2 06/30/18 09:15 76 135/84 06/30/18 05:46 97.8 76 20 135/84 (101) 94 06/29/18 16:39 98.5 98 20 136/80 (98) 99 06/29/18 08:28 86 137/86 06/29/18 06:09 97.8 86 16 137/86 (103) 98 06/28/18 17:05 98.1 105 18 126/77 (93) 97 06/28/18 08:42 81 118/76 06/28/18 06:51 98.3 81 18 118/76 (90) 92 Room Air 06/27/18 16:48 97.4 104 20 136/89 (105) 95 Vital Signs Date Time Temp Pulse Resp B/P (MAP) Pulse Ox O2 Delivery O2 Flow Rate FiO2 06/30/18 09:15 76 135/84 06/30/18 05:46 97.8 20 94 06/28/18 06:51 Room Air I&O Intake and Output 06/30/18 07:00 Intake Total 1080 ml Balance 1080 ml Intake Oral 1080 ml # Voids 1 Current Medications: Meds: Current Medications Acetaminophen (Tylenol) 650 mg PRN Q6HRS PRN PO PAIN / TEMP Last administered on 06/23/18at 05:51; Start 06/06/18 at 04:15 Multi-Ingredient Ointment (Analgesic [place]) 1 speedy PRN QID PRN TP MUSCLE PAIN Last administered on 06/07/18at 22:53; Start 06/06/18 at 04:15 Al Hydroxide/Mg Hydroxide (Mylanta Plus Xs) 15 ml PRN AFTMEALHC PRN PO DYSPEPSIA; Start 06/06/18 at 04:15 Magnesium Hydroxide (Milk Of Magnesia) 2,400 mg PRN QHS PRN PO CONSTIPATION; Start 06/06/18 at 04:15 Amlodipine Besylate (Norvasc) 5 mg DAILY PO Last administered on 06/30/18 09: 15; Start 06/06/18 at 09:00 Atorvastatin Calcium (Lipitor) 20 mg QHS PO Last administered on 06/29/18 19: 43; Start 06/06/18 at 21:00 Clozapine (Clozaril) 100 mg [id number] PO Last administered on 06/15/18 07:44; Start 06/06/18 at 09:00; Stop 06/15/18 at 18:36; Status DC Clozapine (Clozaril) 50 mg [id number] PO Last administered on 06/15/18 07:44; Start 06/06/18 at 09:00; Stop 06/15/18 at 18:36; Status DC Cyanocobalamin (Vitamin B-12) 1,000 mcg DAILY PO Last administered on 09:15; Start 06/06/18 at 09:00 Divalproex Sodium (Depakote Er) 1,000 mg QHS PO Last administered on 06/29/18 19:44; Start 06/06/18 at 21:00 Vitamin D (Vitamin D3) 50,000 unit WEEKLY PO Last administered on 06/28/18 08: 42; Start 06/07/18 at 09:00 Estradiol (Estrace) 1 speedy QMTH VG Last administered on 06/08/18at 15:41; Start 06/08/18 at 16:00; Stop 06/08/18 at 21:19; Status DC Furosemide (Lasix) 20 mg DAILY PO Last administered on 06/30/18 09:15; Start 06/06/18 at 09:00 Levothyroxine Sodium (Synthroid) 75 mcg DAILY06 PO Last administered on 05:43; Start 06/06/18 at 06:00 Melatonin 6 mg PRN QHS PRN PO INSOMNIA Last administered on 06/13/18at 22:23; Start 06/06/18 at 04:30 Magnesium Hydroxide (Milk Of Magnesia) 2,400 mg PRN DAILY PRN PO CONSTIPATION; Start 06/06/18 at 04:30; Status UNV Polyethylene Glycol (miraLAX) 17 gm DAILY PO Last administered on 06/30/18 09: 15; Start 06/06/18 at 09:00 Prednisolone Acetate (Pred Forte) 1 drop DAILY OD Last administered on 09:15; Start 06/06/18 at 09:00 Artificial Tears (Refresh Classic) 1 drop TID PRN PRN OU DRY EYE; Start at 04:30 Mirtazapine (Remeron) 7.5 mg QHS PO Last administered on 06/29/18at 19:43; Start 06/06/18 at 21:00 Trazodone HCl (Desyrel) 100 mg PRN QHS PRN PO INSOMNIA, MAY REPEAT X3 Last administered on 06/23/18 20:10; Start 06/06/18 at 19:00 Olanzapine (ZyPREXA ZYDIS) 5 mg PRN Q2HR PRN PO PSYCHOSIS Last administered on 06/17/18 22:09; Start 06/07/18 at 14:00 Haloperidol (Haldol) 5 mg HS PO ; Start 06/07/18 at 21:00; Stop 06/07/18 at 21: 00; Status DC Haloperidol Lactate (Haldol) 5 mg DAILY IM Last administered on 06/09/18at 07:51 ; Start 06/07/18 at 19:15; Stop 06/09/18 at 09:41; Status DC Estradiol (Estrace) 1 speedy QMTH VG ; Start 06/11/18 at 21:00; Stop 06/18/18 at 11 :41; Status DC Haloperidol Lactate (Haldol) 5 mg 1X ONCE IM Last administered on 06/09/18at 09 :43; Start 06/09/18 at 09:45; Stop 06/09/18 at 09:46; Status DC Haloperidol Lactate (Haldol) 10 mg DAILY IM Last administered on 06/14/18at 08: 40; Start 06/10/18 at 09:00; Stop 06/14/18 at 13:06; Status DC Hydroxyzine HCl (Atarax) 50 mg 1X ONCE PO Last administered on 06/09/18at 17:26 ; Start 06/09/18 at 17:15; Stop 06/09/18 at 17:24; Status DC Hydroxyzine HCl (Atarax) 50 mg 1X ONCE PO Last administered on 06/09/18 18:29 ; Start 06/09/18 at 18:25; Stop 06/09/18 at 18:26; Status DC Benztropine Mesylate (Cogentin) 1 mg QHS PO Last administered on 06/21/18 21:57 ; Start 06/10/18 at 21:00; Stop 06/22/18 at 16:50; Status DC [place] Carbonate 300 mg HS PO Last administered on 06/13/18 19:20; Start at 21:00; Stop 06/14/18 at 13:06; Status DC Hydroxyzine HCl (Atarax) 50 mg PRN Q2HR PRN PO SEDATION Last administered on 01:30; Start 06/11/18 at 15:00 Trazodone HCl (Desyrel) 100 mg PRN 1X PRN PO insomnia Last administered on 06/12 04:16; Start 06/12/18 at 03:15 Lorazepam (Ativan Intensol) 0.5 mg 1X ONCE SL Last administered on 06/13/18 21:51; Start 06/13/18 at 18:15; Stop 06/13/18 at 18:16; Status DC Lorazepam (Ativan) 1 mg DAILY IM Last administered on 06/23/18 08:16; Start at 09:50; Stop 06/24/18 at 15:40; Status DC Haloperidol Lactate (Haldol) 5 mg DAILY IM Last administered on 06/16/18at 09:54 ; Start 06/15/18 at 09:00; Stop 06/18/18 at 10:45; Status DC [place] Carbonate 300 mg BID PO Last administered on 06/18/18at 08:14; Start at 21:00; Stop 06/18/18 at 15:03; Status DC Clozapine (Clozaril) 300 mg DAILY PO Last administered on 06/27/18 08:13; Start 06/16/18 at 09:00; Stop 06/28/18 at 00:33; Status DC Clozapine (Clozaril) 25 mg DAILY PO Last administered on 06/27/18 08:13; Start 06/16/18 at 09:00; Stop 06/28/18 at 00:33; Status DC Estradiol (Estrace) 1 speedy MoTh VG Last administered on 06/18/18at 20:05; Start 06/18/18 at 21:00 [place] Carbonate 300 mg DAILY PO Last administered on 06/30/18 09:15; Start 06/19/18 at 09:00 [place] Citrate 5.3 meq QHS PO Last administered on 06/29/18 19:46; Start at 21:00 Levothyroxine Sodium (Synthroid) 75 mcg 1X ONCE PO Last administered on at 07:53; Start 06/19/18 at 07:00; Stop 06/19/18 at 07:01; Status DC Benztropine Mesylate (Cogentin) 1.5 mg QHS PO Last administered on 06/24/18 19: 58; Start 06/22/18 at 21:00; Stop 06/25/18 at 17:05; Status DC Benztropine Mesylate (Cogentin) 1 mg QHS PO Last administered on 06/29/18at 19: 43; Start 06/25/18 at 21:00 Clozapine (Clozaril) 300 mg HS PO Last administered on 06/29/18 19:43; Start 06/28/18 at 21:00 Clozapine (Clozaril) 25 mg HS PO Last administered on 06/29/18 19:44; Start at 21:00 Active Scripts Active Reported Hydroxyzine Hcl 10 Mg Tablet 10 Mg PO PRN Q2HR PRN Clozapine 100 Mg Tablet 1 Tab PO 1700 Remeron (Mirtazapine) 15 Mg Tablet 1 Tab PO 1700 Depakote Er (Divalproex Sodium) 500 Mg Tab.er.24h 750 Mg PO 1700 Nystatin 15 Gm Powder 1 Speedy TP BID Lidocaine 1 Each Adh..patch 1 Each TP DAILY Lotrimin Af (Clotrimazole) 12 Gm Cream..g. 1 Speedy TP BID PRN Sorbitol (Sorbitol Solution) 1 Ml Solution 30 Ml PO PRN DAILY PRN Trazodone Hcl 50 Mg Tablet 100 Mg PO QHS PRN Elmer-128 (Sodium Chloride) 3.5 Gm Oint...g. 1 Speedy OP HS Lipitor (Atorvastatin Calcium) 20 Mg Tablet 20 Mg PO DAILYWSUP Levothyroxine Sodium 75 Mcg Tablet 75 Mcg PO DAILYAC Estrace (Estradiol) 42.5 Gm Cream.appl 1 Speedy VG 2X WEEK Q MON, THURS Endocet 10-325 Mg Tablet (Oxycodone Hcl/Acetaminophen) 1 Each Tablet 1 Each PO PRN Q6HRS PRN Vitamin B-12 (Cyanocobalamin (Vitamin B-12)) 1,000 Mcg Tablet 1,000 Mcg PO DAILY Maalox Advanced Suspension (Mag Hydrox/Aluminum Hyd/Simeth) 355 Ml Oral.susp 15 Ml PO PRN AFTMEALHC PRN Analgesic [place] (Methyl Salicylate/Menthol) 28 Gm Oint...g. 1 Speedy TP PRN QID PRN Risperidone 1 Mg Tablet 1.5 Mg PO 1700 Refresh Classic Eye Drops (Polyvinyl Alcohol/Povidone/Pf) 1 Each Droperette 1 Each OU TID PRN Trazodone Hcl 50 Mg Tablet 100 Mg PO DAILYWSUP Norvasc (Amlodipine Besylate) 5 Mg Tablet 10 Mg PO DAILY Miralax (Polyethylene Glycol 3350) 17 Gm Powd.pack 17 Gm PO DAILY Milk Of Magnesia (Magnesium Hydroxide) 2,400 Mg/10 Ml Oral.susp 2,400 Mg PO PRN DAILY PRN Tylenol (Acetaminophen) 325 Mg Tablet 650 Mg PO PRN Q6HRS PRN I have reviewed the current psychotropics carefully including drug interactions. Risk benefit ratio favors no change other than as noted in my dictated progress note. 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
--- NOTE | 2018-06-30 10:50 | NUR ---
Patient showered herself this morning. Cooperative with medication administration and assessment. Denies constipation/has active bowel signs. Patient is withdraw to room most of the time but comes out for meals. Compliant with medications taken whole. She is no longer manic, she is exhibiting normal behavior and moods.
[2018-06-30 15:12] VITALS: BP 117/62
--- NOTE | 2018-06-30 15:20 | NUR ---
Cassia from the Dept of A[facility] came up to meet with pt and complete the assessment. Pt was compliant and did fairly well. [facility] to determine if the assessment is indeed appropriate. SW will contact pt to discuss this process and ensure that he does not have any questions.
[2018-06-30] MEDS: BENZTROPINE MESYLATE 1 MG TABLET PO SCH (20:03)
[2018-06-30] MEDS: cloZAPine 100 MG TABLET PO SCH (20:03)
[2018-06-30] MEDS: cloZAPine 25 MG TABLET PO SCH (20:03)
[2018-06-30] MEDS: MIRTAZAPINE 7.5 MG TABLET. PO SCH (20:05)
[2018-06-30] MEDS: DIVALPROEX ER 500 MG TAB.ER.24H PO SCH (20:05)
[2018-06-30] MEDS: ATORVASTATIN CALCIUM 20 MG TABLET PO SCH (20:05)
[2018-06-30] MEDS: LITHIUM CITRATE PO SCH (20:06)
--- NOTE | 2018-06-30 22:43 | PDOC ---
Exam Note: Julian Note: Please also refer to the separate dictated note~for this date of service dictated separately.~Patient seen individually. Discussed the patient with Nursing staff reviewed the chart.~Reviewed interim history and current functioning. Reviewed vital signs,~Labs/ Radiology~and current medications noted below. Continue current treatment with the changes noted in the dictated addendum note Assessment: Vital Signs: Vital Signs Date Time Temp Pulse Resp B/P (MAP) Pulse Ox O2 Delivery O2 Flow Rate FiO2 06/30/18 15:12 97.6 94 18 117/62 (80) 100 06/28/18 06:51 Room Air I&O Intake and Output 06/30/18 07:00 Intake Total 1080 ml Balance 1080 ml Intake Oral 1080 ml # Voids 1 Labs: Laboratory Tests Test 06/30/18 07:31 [place] Level 0.6 mmol/L (0.6-1.2) [place] Last Dose Date 06-29-18 [place] Last Dose Time 2100 Current Medications: Meds: Current Medications Acetaminophen (Tylenol) 650 mg PRN Q6HRS PRN PO PAIN / TEMP Last administered on 06/23/18at 05:51; Start 06/06/18 at 04:15 Multi-Ingredient Ointment (Analgesic Morgan) 1 speedy PRN QID PRN TP MUSCLE PAIN Last administered on 06/07/18at 22:53; Start 06/06/18 at 04:15 Al Hydroxide/Mg Hydroxide (Mylanta Plus Xs) 15 ml PRN AFTMEALHC PRN PO DYSPEPSIA; Start 06/06/18 at 04:15 Magnesium Hydroxide (Milk Of Magnesia) 2,400 mg PRN QHS PRN PO CONSTIPATION; Start 06/06/18 at 04:15 Amlodipine Besylate (Norvasc) 5 mg DAILY PO Last administered on 06/30/18at 09: 15; Start 06/06/18 at 09:00 Atorvastatin Calcium (Lipitor) 20 mg QHS PO Last administered on 06/30/18at 20: 05; Start 06/06/18 at 21:00 Clozapine (Clozaril) 100 mg BID94 PO Last administered on 06/15/18at 07:44; Start 06/06/18 at 09:00; Stop 06/15/18 at 18:36; Status DC Clozapine (Clozaril) 50 mg [id number] PO Last administered on 06/15/18 07:44; Start 06/06/18 at 09:00; Stop 06/15/18 at 18:36; Status DC Cyanocobalamin (Vitamin B-12) 1,000 mcg DAILY PO Last administered on 09:15; Start 06/06/18 at 09:00 Divalproex Sodium (Depakote Er) 1,000 mg QHS PO Last administered on 06/30/18 20:05; Start 06/06/18 at 21:00 Vitamin D (Vitamin D3) 50,000 unit WEEKLY PO Last administered on 06/28/18 08: 42; Start 06/07/18 at 09:00 Estradiol (Estrace) 1 speedy QMTH VG Last administered on 06/08/18 15:41; Start 06/08/18 at 16:00; Stop 06/08/18 at 21:19; Status DC Furosemide (Lasix) 20 mg DAILY PO Last administered on 06/30/18 09:15; Start 06/06/18 at 09:00 Levothyroxine Sodium (Synthroid) 75 mcg DAILY06 PO Last administered on 05:43; Start 06/06/18 at 06:00 Melatonin 6 mg PRN QHS PRN PO INSOMNIA Last administered on 06/13/18 22:23; Start 06/06/18 at 04:30 Magnesium Hydroxide (Milk Of Magnesia) 2,400 mg PRN DAILY PRN PO CONSTIPATION; Start 06/06/18 at 04:30; Status UNV Polyethylene Glycol (miraLAX) 17 gm DAILY PO Last administered on 06/30/18 09: 15; Start 06/06/18 at 09:00 Prednisolone Acetate (Pred Forte) 1 drop DAILY OD Last administered on 09:15; Start 06/06/18 at 09:00 Artificial Tears (Refresh Classic) 1 drop TID PRN PRN OU DRY EYE; Start at 04:30 Mirtazapine (Remeron) 7.5 mg QHS PO Last administered on 06/30/18 20:05; Start 06/06/18 at 21:00 Trazodone HCl (Desyrel) 100 mg PRN QHS PRN PO INSOMNIA, MAY REPEAT X3 Last administered on 2/5/19at 20:10; Start 06/06/18 at 19:00 Olanzapine (ZyPREXA ZYDIS) 5 mg PRN Q2HR PRN PO PSYCHOSIS Last administered on 06/17/18at 22:09; Start 06/07/18 at 14:00 Haloperidol (Haldol) 5 mg HS PO ; Start 06/07/18 at 21:00; Stop 06/07/18 at 21: 00; Status DC Haloperidol Lactate (Haldol) 5 mg DAILY IM Last administered on 06/09/18at 07:51 ; Start 06/07/18 at 19:15; Stop 06/09/18 at 09:41; Status DC Estradiol (Estrace) 1 speedy QMTH VG ; Start 06/11/18 at 21:00; Stop 06/18/18 at 11 :41; Status DC Haloperidol Lactate (Haldol) 5 mg 1X ONCE IM Last administered on 06/09/18at 09 :43; Start 06/09/18 at 09:45; Stop 06/09/18 at 09:46; Status DC Haloperidol Lactate (Haldol) 10 mg DAILY IM Last administered on 06/14/18at 08: 40; Start 06/10/18 at 09:00; Stop 06/14/18 at 13:06; Status DC Hydroxyzine HCl (Atarax) 50 mg 1X ONCE PO Last administered on 06/09/18at 17:26 ; Start 06/09/18 at 17:15; Stop 06/09/18 at 17:24; Status DC Hydroxyzine HCl (Atarax) 50 mg 1X ONCE PO Last administered on 06/09/18at 18:29 ; Start 06/09/18 at 18:25; Stop 06/09/18 at 18:26; Status DC Benztropine Mesylate (Cogentin) 1 mg QHS PO Last administered on 06/21/18at 21:57 ; Start 06/10/18 at 21:00; Stop 06/22/18 at 16:50; Status DC [place] Carbonate 300 mg HS PO Last administered on 06/13/18at 19:20; Start at 21:00; Stop 06/14/18 at 13:06; Status DC Hydroxyzine HCl (Atarax) 50 mg PRN Q2HR PRN PO SEDATION Last administered on 01:30; Start 06/11/18 at 15:00 Trazodone HCl (Desyrel) 100 mg PRN 1X PRN PO insomnia Last administered on 06/12 04:16; Start 06/12/18 at 03:15 Lorazepam (Ativan Intensol) 0.5 mg 1X ONCE SL Last administered on 06/13/18at 21:51; Start 06/13/18 at 18:15; Stop 06/13/18 at 18:16; Status DC Lorazepam (Ativan) 1 mg DAILY IM Last administered on 06/23/18at 08:16; Start at 09:50; Stop 06/24/18 at 15:40; Status DC Haloperidol Lactate (Haldol) 5 mg DAILY IM Last administered on 06/16/18at 09:54 ; Start 06/15/18 at 09:00; Stop 06/18/18 at 10:45; Status DC [place] Carbonate 300 mg BID PO Last administered on 06/18/18 08:14; Start at 21:00; Stop 06/18/18 at 15:03; Status DC Clozapine (Clozaril) 300 mg DAILY PO Last administered on 06/27/18 08:13; Start 06/16/18 at 09:00; Stop 06/28/18 at 00:33; Status DC Clozapine (Clozaril) 25 mg DAILY PO Last administered on 06/27/18 08:13; Start 06/16/18 at 09:00; Stop 06/28/18 at 00:33; Status DC Estradiol (Estrace) 1 speedy MoTh VG Last administered on 06/18/18at 20:05; Start 06/18/18 at 21:00 [place] Carbonate 300 mg DAILY PO Last administered on 06/30/18 09:15; Start 06/19/18 at 09:00 [place] Citrate 5.3 meq QHS PO Last administered on 06/30/18 20:06; Start at 21:00 Levothyroxine Sodium (Synthroid) 75 mcg 1X ONCE PO Last administered on 07:53; Start 06/19/18 at 07:00; Stop 06/19/18 at 07:01; Status DC Benztropine Mesylate (Cogentin) 1.5 mg QHS PO Last administered on 06/24/18at 19: 58; Start 06/22/18 at 21:00; Stop 06/25/18 at 17:05; Status DC Benztropine Mesylate (Cogentin) 1 mg QHS PO Last administered on 06/30/18at 20: 03; Start 06/25/18 at 21:00 Clozapine (Clozaril) 300 mg HS PO Last administered on 06/30/18 20:03; Start 06/28/18 at 21:00 Clozapine (Clozaril) 25 mg HS PO Last administered on 06/30/18at 20:03; Start at 21:00 Active Scripts Active Reported Hydroxyzine Hcl 10 Mg Tablet 10 Mg PO PRN Q2HR PRN Clozapine 100 Mg Tablet 1 Tab PO 1700 Remeron (Mirtazapine) 15 Mg Tablet 1 Tab PO 1700 Depakote Er (Divalproex Sodium) 500 Mg Tab.er.24h 750 Mg PO 1700 Nystatin 15 Gm Powder 1 Speedy TP BID Lidocaine 1 Each Adh..patch 1 Each TP DAILY Lotrimin Af (Clotrimazole) 12 Gm Cream..g. 1 Speedy TP BID PRN Sorbitol (Sorbitol Solution) 1 Ml Solution 30 Ml PO PRN DAILY PRN Trazodone Hcl 50 Mg Tablet 100 Mg PO QHS PRN Elmer-128 (Sodium Chloride) 3.5 Gm Oint...g. 1 Speedy OP HS Lipitor (Atorvastatin Calcium) 20 Mg Tablet 20 Mg PO DAILYWSUP Levothyroxine Sodium 75 Mcg Tablet 75 Mcg PO DAILYAC Estrace (Estradiol) 42.5 Gm Cream.appl 1 Speedy VG 2X WEEK Q FRI, Endocet 10-325 Mg Tablet (Oxycodone Hcl/Acetaminophen) 1 Each Tablet 1 Each PO PRN Q6HRS PRN Vitamin B-12 (Cyanocobalamin (Vitamin B-12)) 1,000 Mcg Tablet 1,000 Mcg PO DAILY Maalox Advanced Suspension (Mag Hydrox/Aluminum Hyd/Simeth) 355 Ml Oral.susp 15 Ml PO PRN AFTMEALHC PRN Analgesic Morgan (Methyl Salicylate/Menthol) 28 Gm Oint...g. 1 Speedy TP PRN QID PRN Risperidone 1 Mg Tablet 1.5 Mg PO 1700 Refresh Classic Eye Drops (Polyvinyl Alcohol/Povidone/Pf) 1 Each Droperette 1 Each OU TID PRN Trazodone Hcl 50 Mg Tablet 100 Mg PO DAILYWSUP Norvasc (Amlodipine Besylate) 5 Mg Tablet 10 Mg PO DAILY Miralax (Polyethylene Glycol 3350) 17 Gm Powd.pack 17 Gm PO DAILY Milk Of Magnesia (Magnesium Hydroxide) 2,400 Mg/10 Ml Oral.susp 2,400 Mg PO PRN DAILY PRN Tylenol (Acetaminophen) 325 Mg Tablet 650 Mg PO PRN Q6HRS PRN I have reviewed the current psychotropics carefully including drug interactions. Risk benefit ratio favors no change other than as noted in my dictated progress note. 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
--- NOTE | 2018-07-01 00:45 | PN ---
DATE: 06/29/2018 PSYCHIATRIC PROGRESS NOTE This late entry 06/29/2018 covers elements not covered in my initial note. SUBJECTIVE: I met with the patient in the evening. The patient slept 8-3/4 hours previous night. [place] level is 0.6. We will repeat another level on 06/30/2018. Absolute neutrophil count is 3304. Overall, she has been pleasant, cooperative, does withdraw to her room, which is where I met with her at some length in the evening of 06/29/2018. Drooling is better. REVIEW OF SYSTEMS: No CV, , pulmonary, eye system symptoms on review. MENTAL STATUS EXAM: Oriented to herself and situation. Speech is coherent, abstraction fair, computation impaired, language function intact. Attention span short. The patient remains somewhat anxious. No suicidal or homicidal ideation. LABORATORY DATA: Reviewed. IMPRESSION: Bipolar 1 disorder, mixed with psychotic features, in partial remission. Rest unchanged. PLAN: Continue current psychotropics and repeat the lithium level in the morning. We will not increase Clozaril just yet, as psychotic symptoms appeared to be stabilized on her current dosage, absolute neutrophil count unremarkable. KIERSTEN WATT MD DR: SANCHEZ/fredrick JOB#: [id number] / [id number]
--- NOTE | 2018-07-01 04:05 | NUR ---
Nursing Note The patient was located in her room laying in bed for her medications and cares. the patient was compliant with all cares and medications. The patient is currently sleeping in her room.
[2018-07-01 06:00] VITALS: BP 127/82
[2018-07-01] MEDS: LEVOTHYROXINE 75 MCG TABLET PO SCH (06:09)
[2018-07-01] MEDS: CYANOCOBALAMIN (VITAMIN B-12) 1,000 MCG TABLET. PO SCH (10:09)
[2018-07-01] MEDS: FUROSEMIDE 20 MG TABLET PO SCH (10:09)
[2018-07-01] MEDS: POLYETHYLENE GLYCOL 3350 17 GM PACKET. PO SCH (10:09)
[2018-07-01] MEDS: prednisoLONE ACETATE 1% OPHTH SUSPENSION 5ML BOTTLE. OD SCH (10:09)
[2018-07-01] MEDS: LITHIUM CARBONATE 300 MG TABLET PO SCH (10:09)
[2018-07-01] MEDS: amLODIPine BESYLATE 5 MG TABLET PO SCH (10:09)
--- NOTE | 2018-07-01 12:34 | NUR ---
Patient withdrawn to room, comes out for meals. She is medication compliant and is having no adverse behaviors.
[2018-07-01 16:11] VITALS: BP 101/67
[2018-07-01] MEDS: cloZAPine 100 MG TABLET PO SCH (20:37)
[2018-07-01] MEDS: ATORVASTATIN CALCIUM 20 MG TABLET PO SCH (20:37)
[2018-07-01] MEDS: BENZTROPINE MESYLATE 1 MG TABLET PO SCH (20:37)
[2018-07-01] MEDS: DIVALPROEX ER 500 MG TAB.ER.24H PO SCH (20:38)
[2018-07-01] MEDS: LITHIUM CITRATE PO SCH (20:38)
[2018-07-01] MEDS: MIRTAZAPINE 7.5 MG TABLET. PO SCH (20:38)
[2018-07-01] MEDS: cloZAPine 25 MG TABLET PO SCH (20:38)
--- NOTE | 2018-07-01 22:08 | PN ---
DATE: 06/30/2018 This late entry for 06/30/2018 covers elements not covered in my initial note. SUBJECTIVE: I met with the patient in the evening at some length in her room. The patient has been pleasant, compliant, slept 7-3/4 hours. No drooling noted. REVIEW OF SYSTEMS: No CV, , pulmonary, eye system symptoms on review. Does admit to some tiredness. MENTAL STATUS EXAM: Oriented reasonably. Speech has some latency, coherent. Abstraction fair, computation impaired, language function intact. Mood and affect is improved, much less labile, appears almost euthymic. No suicidal or homicidal ideation. LABORATORY DATA: Reviewed. IMPRESSION: Schizoaffective disorder, bipolar type, mixed with psychotic features, in partial remission; bipolar 1 disorder, manic with psychotic features, in partial remission. Rest unchanged. PLAN: No change from initial note. We will continue to follow the lithium. Maintain between 0.6 and 0.8. MAN Rox WATT MD DR: SANCHEZ/fredrick JOB#: [id number] / [id number]
--- NOTE | 2018-07-01 22:23 | PDOC ---
Exam Note: Julian Note: Please also refer to the separate dictated note~for this date of service dictated separately.~Patient seen individually. Discussed the patient with Nursing staff reviewed the chart.~Reviewed interim history and current functioning. Reviewed vital signs,~Labs/ Radiology~and current medications noted below. Continue current treatment with the changes noted in the dictated addendum note Assessment: Vital Signs: Vital Signs Date Time Temp Pulse Resp B/P (MAP) Pulse Ox O2 Delivery O2 Flow Rate FiO2 07/01/18 16:11 98.6 102 18 101/67 (78) 100 06/28/18 06:51 Room Air I&O Intake and Output 07/01/18 07:00 Intake Total 1180 ml Balance 1180 ml Intake Oral 1180 ml Current Medications: Meds: Current Medications Acetaminophen (Tylenol) 650 mg PRN Q6HRS PRN PO PAIN / TEMP Last administered on 06/23/18 05:51; Start 06/06/18 at 04:15 Multi-Ingredient Ointment (Analgesic Schulter) 1 speedy PRN QID PRN TP MUSCLE PAIN Last administered on 06/07/18at 22:53; Start 06/06/18 at 04:15 Al Hydroxide/Mg Hydroxide (Mylanta Plus Xs) 15 ml PRN AFTMEALHC PRN PO DYSPEPSIA; Start 06/06/18 at 04:15 Magnesium Hydroxide (Milk Of Magnesia) 2,400 mg PRN QHS PRN PO CONSTIPATION; Start 06/06/18 at 04:15 Amlodipine Besylate (Norvasc) 5 mg DAILY PO Last administered on 07/01/18at 10: 09; Start 06/06/18 at 09:00 Atorvastatin Calcium (Lipitor) 20 mg QHS PO Last administered on 07/01/18at 20: 37; Start 06/06/18 at 21:00 Clozapine (Clozaril) 100 mg [id number] PO Last administered on 06/15/18 07:44; Start 06/06/18 at 09:00; Stop 06/15/18 at 18:36; Status DC Clozapine (Clozaril) 50 mg BID94 PO Last administered on 06/15/18at 07:44; Start 06/06/18 at 09:00; Stop 06/15/18 at 18:36; Status DC Cyanocobalamin (Vitamin B-12) 1,000 mcg DAILY PO Last administered on 10:09; Start 06/06/18 at 09:00 Divalproex Sodium (Depakote Er) 1,000 mg QHS PO Last administered on 07/01/18 20:38; Start 06/06/18 at 21:00 Vitamin D (Vitamin D3) 50,000 unit WEEKLY PO Last administered on 06/28/18 08: 42; Start 06/07/18 at 09:00 Estradiol (Estrace) 1 speedy QMTH VG Last administered on 06/08/18 15:41; Start 06/08/18 at 16:00; Stop 06/08/18 at 21:19; Status DC Furosemide (Lasix) 20 mg DAILY PO Last administered on 07/01/18 10:09; Start 06/06/18 at 09:00 Levothyroxine Sodium (Synthroid) 75 mcg DAILY06 PO Last administered on 06:09; Start 06/06/18 at 06:00 Melatonin 6 mg PRN QHS PRN PO INSOMNIA Last administered on 06/13/18 22:23; Start 06/06/18 at 04:30 Magnesium Hydroxide (Milk Of Magnesia) 2,400 mg PRN DAILY PRN PO CONSTIPATION; Start 06/06/18 at 04:30; Status UNV Polyethylene Glycol (miraLAX) 17 gm DAILY PO Last administered on 07/01/18 10: 09; Start 06/06/18 at 09:00 Prednisolone Acetate (Pred Forte) 1 drop DAILY OD Last administered on 10:09; Start 06/06/18 at 09:00 Artificial Tears (Refresh Classic) 1 drop TID PRN PRN OU DRY EYE; Start at 04:30 Mirtazapine (Remeron) 7.5 mg QHS PO Last administered on 07/01/18 20:38; Start 06/06/18 at 21:00 Trazodone HCl (Desyrel) 100 mg PRN QHS PRN PO INSOMNIA, MAY REPEAT X3 Last administered on 06/23/18 20:10; Start 06/06/18 at 19:00 Olanzapine (ZyPREXA ZYDIS) 5 mg PRN Q2HR PRN PO PSYCHOSIS Last administered on 1/30/19at 22:09; Start 06/07/18 at 14:00 Haloperidol (Haldol) 5 mg HS PO ; Start 06/07/18 at 21:00; Stop 06/07/18 at 21: 00; Status DC Haloperidol Lactate (Haldol) 5 mg DAILY IM Last administered on 06/09/18at 07:51 ; Start 06/07/18 at 19:15; Stop 06/09/18 at 09:41; Status DC Estradiol (Estrace) 1 speedy QMTH VG ; Start 06/11/18 at 21:00; Stop 06/18/18 at 11 :41; Status DC Haloperidol Lactate (Haldol) 5 mg 1X ONCE IM Last administered on 06/09/18at 09 :43; Start 06/09/18 at 09:45; Stop 06/09/18 at 09:46; Status DC Haloperidol Lactate (Haldol) 10 mg DAILY IM Last administered on 06/14/18at 08: 40; Start 06/10/18 at 09:00; Stop 06/14/18 at 13:06; Status DC Hydroxyzine HCl (Atarax) 50 mg 1X ONCE PO Last administered on 06/09/18at 17:26 ; Start 06/09/18 at 17:15; Stop 06/09/18 at 17:24; Status DC Hydroxyzine HCl (Atarax) 50 mg 1X ONCE PO Last administered on 06/09/18at 18:29 ; Start 06/09/18 at 18:25; Stop 06/09/18 at 18:26; Status DC Benztropine Mesylate (Cogentin) 1 mg QHS PO Last administered on 06/21/18at 21:57 ; Start 06/10/18 at 21:00; Stop 06/22/18 at 16:50; Status DC [place] Carbonate 300 mg HS PO Last administered on 06/13/18at 19:20; Start at 21:00; Stop 06/14/18 at 13:06; Status DC Hydroxyzine HCl (Atarax) 50 mg PRN Q2HR PRN PO SEDATION Last administered on 01:30; Start 06/11/18 at 15:00 Trazodone HCl (Desyrel) 100 mg PRN 1X PRN PO insomnia Last administered on 06/12at 04:16; Start 06/12/18 at 03:15 Lorazepam (Ativan Intensol) 0.5 mg 1X ONCE SL Last administered on 06/13/18at 21:51; Start 06/13/18 at 18:15; Stop 06/13/18 at 18:16; Status DC Lorazepam (Ativan) 1 mg DAILY IM Last administered on 06/23/18 08:16; Start at 09:50; Stop 06/24/18 at 15:40; Status DC Haloperidol Lactate (Haldol) 5 mg DAILY IM Last administered on 06/16/18at 09:54 ; Start 06/15/18 at 09:00; Stop 06/18/18 at 10:45; Status DC [place] Carbonate 300 mg BID PO Last administered on 06/18/18 08:14; Start at 21:00; Stop 06/18/18 at 15:03; Status DC Clozapine (Clozaril) 300 mg DAILY PO Last administered on 06/27/18 08:13; Start 06/16/18 at 09:00; Stop 06/28/18 at 00:33; Status DC Clozapine (Clozaril) 25 mg DAILY PO Last administered on 06/27/18 08:13; Start 06/16/18 at 09:00; Stop 06/28/18 at 00:33; Status DC Estradiol (Estrace) 1 speedy MoTh VG Last administered on 06/18/18at 20:05; Start 06/18/18 at 21:00 [place] Carbonate 300 mg DAILY PO Last administered on 07/01/18 10:09; Start 06/19/18 at 09:00 [place] Citrate 5.3 meq QHS PO Last administered on 07/01/18at 20:38; Start at 21:00 Levothyroxine Sodium (Synthroid) 75 mcg 1X ONCE PO Last administered on 07:53; Start 06/19/18 at 07:00; Stop 06/19/18 at 07:01; Status DC Benztropine Mesylate (Cogentin) 1.5 mg QHS PO Last administered on 06/24/18at 19: 58; Start 06/22/18 at 21:00; Stop 06/25/18 at 17:05; Status DC Benztropine Mesylate (Cogentin) 1 mg QHS PO Last administered on 07/01/18at 20: 37; Start 06/25/18 at 21:00 Clozapine (Clozaril) 300 mg HS PO Last administered on 07/01/18at 20:37; Start 06/28/18 at 21:00 Clozapine (Clozaril) 25 mg HS PO Last administered on 07/01/18at 20:38; Start at 21:00 Active Scripts Active Reported Hydroxyzine Hcl 10 Mg Tablet 10 Mg PO PRN Q2HR PRN Clozapine 100 Mg Tablet 1 Tab PO 1700 Remeron (Mirtazapine) 15 Mg Tablet 1 Tab PO 1700 Depakote Er (Divalproex Sodium) 500 Mg Tab.er.24h 750 Mg PO 1700 Nystatin 15 Gm Powder 1 Speedy TP BID Lidocaine 1 Each Adh..patch 1 Each TP DAILY Lotrimin Af (Clotrimazole) 12 Gm Cream..g. 1 Speedy TP BID PRN Sorbitol (Sorbitol Solution) 1 Ml Solution 30 Ml PO PRN DAILY PRN Trazodone Hcl 50 Mg Tablet 100 Mg PO QHS PRN [place]mer-128 (Sodium Chloride) 3.5 Gm Oint...g. 1 Speedy OP HS Lipitor (Atorvastatin Calcium) 20 Mg Tablet 20 Mg PO DAILYWSUP Levothyroxine Sodium 75 Mcg Tablet 75 Mcg PO DAILYAC Estrace (Estradiol) 42.5 Gm Cream.appl 1 Speedy VG 2X WEEK Q FRI, Endocet 10-325 Mg Tablet (Oxycodone Hcl/Acetaminophen) 1 Each Tablet 1 Each PO PRN Q6HRS PRN Vitamin B-12 (Cyanocobalamin (Vitamin B-12)) 1,000 Mcg Tablet 1,000 Mcg PO DAILY Maalox Advanced Suspension (Mag Hydrox/Aluminum Hyd/Simeth) 355 Ml Oral.susp 15 Ml PO PRN AFTMEALHC PRN Analgesic Schul[place] (Methyl Salicylate/Menthol) 28 Gm Oint...g. 1 Speedy TP PRN QID PRN Risperidone 1 Mg Tablet 1.5 Mg PO 1700 Refresh Classic Eye Drops (Polyvinyl Alcohol/Povidone/Pf) 1 Each Droperette 1 Each OU TID PRN Trazodone Hcl 50 Mg Tablet 100 Mg PO DAILYWSUP Norvasc (Amlodipine Besylate) 5 Mg Tablet 10 Mg PO DAILY Miralax (Polyethylene Glycol 3350) 17 Gm Powd.pack 17 Gm PO DAILY Milk Of Magnesia (Magnesium Hydroxide) 2,400 Mg/10 Ml Oral.susp 2,400 Mg PO PRN DAILY PRN Tylenol (Acetaminophen) 325 Mg Tablet 650 Mg PO PRN Q6HRS PRN I have reviewed the current psychotropics carefully including drug interactions. Risk benefit ratio favors no change other than as noted in my dictated progress note. 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
--- NOTE | 2018-07-02 00:21 | NUR ---
Nursing Note The patient was compliant with medications and was appropriate during interactions with this nurse. The patient was withdrawn to her room this shift. The patient is currently sleeping in her room.
[2018-07-02 05:48] VITALS: BP 126/78
[2018-07-02] MEDS: LEVOTHYROXINE 75 MCG TABLET PO SCH (06:35)
[2018-07-02] MEDS: prednisoLONE ACETATE 1% OPHTH SUSPENSION 5ML BOTTLE. OD SCH (07:54)
[2018-07-02] MEDS: CYANOCOBALAMIN (VITAMIN B-12) 1,000 MCG TABLET. PO SCH (07:55)
[2018-07-02] MEDS: POLYETHYLENE GLYCOL 3350 17 GM PACKET. PO SCH (07:55)
[2018-07-02] MEDS: LITHIUM CARBONATE 300 MG TABLET PO SCH (07:55)
[2018-07-02] MEDS: FUROSEMIDE 20 MG TABLET PO SCH (07:55)
[2018-07-02] MEDS: amLODIPine BESYLATE 5 MG TABLET PO SCH (07:55)
--- NOTE | 2018-07-02 09:00 | NUR ---
WEEKLY ACTIVITY THERAPY NOTE Date of Admission: 06/06/2018 Date of AT Assessment: 06/07/2018 Goal aimed: to increase attention span and engagement Initial Goal: Pt. will participate in all Activity Therapy groups offered (Pt. set goal for self) Goal changed 06/18/2018- Pt. will participate in at least three (Activity Therapy) groups or individual activities per week. Weekly progress towards goal: achieved Group participation level: minimal Behaviors observed: withdrawn to room more, only in group for a few minutes at a time, quiet, difficult to keep engaged Plan: no change to goal
--- NOTE | 2018-07-02 10:35 | NUR ---
Pt has been calm, cooperative, compliant. No agitation or aggression thus far this shift. She is able to focus on tasks and is med compliant. Denies hallucinations. No delusions noted.
--- NOTE | 2018-07-02 10:47 | NUR ---
WEEKLY NOTE: Pt has poor group attendance. Pt is withdrawn from her peers and is often found in her room. Pt is eating and sleeping well. Pt is reacting well to her [place] and will have a level drawn tomorrow. Pt is awaiting evaluation for her level II assessment. Pt Cogentin will also be reduced. Once placement is found, pt may discharge. No aggression has been noted.
[2018-07-02 16:37] VITALS: BP 112/76
--- NOTE | 2018-07-02 16:57 | NUR ---
assumed care of patient at 1400. Patient has been withdrawn to her room and then was sitting in a chair by the [facility]. She has been calm and appropriate.
[2018-07-02] MEDS: DIVALPROEX ER 500 MG TAB.ER.24H PO SCH (19:42)
[2018-07-02] MEDS: MIRTAZAPINE 7.5 MG TABLET. PO SCH (19:42)
[2018-07-02] MEDS: cloZAPine 100 MG TABLET PO SCH (19:42)
[2018-07-02] MEDS: cloZAPine 25 MG TABLET PO SCH (19:42)
[2018-07-02] MEDS: ATORVASTATIN CALCIUM 20 MG TABLET PO SCH (19:43)
[2018-07-02] MEDS: BENZTROPINE MESYLATE 1 MG TABLET PO SCH (19:43)
[2018-07-02] MEDS: LITHIUM CITRATE PO SCH (19:46)
[2018-07-02] MEDS: ESTRADIOL 0.01% VAGINAL CREAM 42.5GM TUBE. VG SCH ×2 (19:47→20:37)
--- NOTE | 2018-07-02 22:42 | PDOC ---
Exam Note: Julian Note: Please also refer to the separate dictated note~for this date of service dictated separately.~Patient seen individually. Discussed the patient with Nursing staff reviewed the chart.~Reviewed interim history and current functioning. Reviewed vital signs,~Labs/ Radiology~and current medications noted below. Continue current treatment with the changes noted in the dictated addendum note Assessment: Vital Signs: Vital Signs Date Time Temp Pulse Resp B/P (MAP) Pulse Ox O2 Delivery O2 Flow Rate FiO2 07/02/18 16:37 98.6 87 18 112/76 (88) 94 06/28/18 06:51 Room Air I&O Intake and Output 07/02/18 07:00 Intake Total 1200 ml Balance 1200 ml Intake Oral 1200 ml Current Medications: Meds: Current Medications Acetaminophen (Tylenol) 650 mg PRN Q6HRS PRN PO PAIN / TEMP Last administered on 06/23/18 05:51; Start 06/06/18 at 04:15 Multi-Ingredient Ointment (Analgesic Scott) 1 speedy PRN QID PRN TP MUSCLE PAIN Last administered on 06/07/18at 22:53; Start 06/06/18 at 04:15 Al Hydroxide/Mg Hydroxide (Mylanta Plus Xs) 15 ml PRN AFTMEALHC PRN PO DYSPEPSIA; Start 06/06/18 at 04:15 Magnesium Hydroxide (Milk Of Magnesia) 2,400 mg PRN QHS PRN PO CONSTIPATION; Start 06/06/18 at 04:15 Amlodipine Besylate (Norvasc) 5 mg DAILY PO Last administered on 07/02/18at 07: 55; Start 06/06/18 at 09:00 Atorvastatin Calcium (Lipitor) 20 mg QHS PO Last administered on 07/02/18at 19: 43; Start 06/06/18 at 21:00 Clozapine (Clozaril) 100 mg [id number] PO Last administered on 06/15/18 07:44; Start 06/06/18 at 09:00; Stop 06/15/18 at 18:36; Status DC Clozapine (Clozaril) 50 mg BID94 PO Last administered on 06/15/18at 07:44; Start 06/06/18 at 09:00; Stop 06/15/18 at 18:36; Status DC Cyanocobalamin (Vitamin B-12) 1,000 mcg DAILY PO Last administered on 07:55; Start 06/06/18 at 09:00 Divalproex Sodium (Depakote Er) 1,000 mg QHS PO Last administered on 07/02/18 19:42; Start 06/06/18 at 21:00 Vitamin D (Vitamin D3) 50,000 unit WEEKLY PO Last administered on 06/28/18 08: 42; Start 06/07/18 at 09:00 Estradiol (Estrace) 1 speedy QMTH VG Last administered on 06/08/18 15:41; Start 06/08/18 at 16:00; Stop 06/08/18 at 21:19; Status DC Furosemide (Lasix) 20 mg DAILY PO Last administered on 07/02/18 07:55; Start 06/06/18 at 09:00 Levothyroxine Sodium (Synthroid) 75 mcg DAILY06 PO Last administered on 06:35; Start 06/06/18 at 06:00 Melatonin 6 mg PRN QHS PRN PO INSOMNIA Last administered on 06/13/18 22:23; Start 06/06/18 at 04:30 Magnesium Hydroxide (Milk Of Magnesia) 2,400 mg PRN DAILY PRN PO CONSTIPATION; Start 06/06/18 at 04:30; Status UNV Polyethylene Glycol (miraLAX) 17 gm DAILY PO Last administered on 07/02/18 07: 55; Start 06/06/18 at 09:00 Prednisolone Acetate (Pred Forte) 1 drop DAILY OD Last administered on 07:54; Start 06/06/18 at 09:00 Artificial Tears (Refresh Classic) 1 drop TID PRN PRN OU DRY EYE; Start at 04:30 Mirtazapine (Remeron) 7.5 mg QHS PO Last administered on 07/02/18 19:42; Start 06/06/18 at 21:00 Trazodone HCl (Desyrel) 100 mg PRN QHS PRN PO INSOMNIA, MAY REPEAT X3 Last administered on 06/23/18 20:10; Start 06/06/18 at 19:00 Olanzapine (ZyPREXA ZYDIS) 5 mg PRN Q2HR PRN PO PSYCHOSIS Last administered on 06/17/18 22:09; Start 06/07/18 at 14:00 Haloperidol (Haldol) 5 mg HS PO ; Start 06/07/18 at 21:00; Stop 06/07/18 at 21: 00; Status DC Haloperidol Lactate (Haldol) 5 mg DAILY IM Last administered on 06/09/18at 07:51 ; Start 06/07/18 at 19:15; Stop 06/09/18 at 09:41; Status DC Estradiol (Estrace) 1 speedy QMTH VG ; Start 06/11/18 at 21:00; Stop 06/18/18 at 11 :41; Status DC Haloperidol Lactate (Haldol) 5 mg 1X ONCE IM Last administered on 06/09/18at 09 :43; Start 06/09/18 at 09:45; Stop 06/09/18 at 09:46; Status DC Haloperidol Lactate (Haldol) 10 mg DAILY IM Last administered on 06/14/18at 08: 40; Start 06/10/18 at 09:00; Stop 06/14/18 at 13:06; Status DC Hydroxyzine HCl (Atarax) 50 mg 1X ONCE PO Last administered on 06/09/18at 17:26 ; Start 06/09/18 at 17:15; Stop 06/09/18 at 17:24; Status DC Hydroxyzine HCl (Atarax) 50 mg 1X ONCE PO Last administered on 06/09/18at 18:29 ; Start 06/09/18 at 18:25; Stop 06/09/18 at 18:26; Status DC Benztropine Mesylate (Cogentin) 1 mg QHS PO Last administered on 06/21/18at 21:57 ; Start 06/10/18 at 21:00; Stop 06/22/18 at 16:50; Status DC [place] Carbonate 300 mg HS PO Last administered on 06/13/18at 19:20; Start at 21:00; Stop 06/14/18 at 13:06; Status DC Hydroxyzine HCl (Atarax) 50 mg PRN Q2HR PRN PO SEDATION Last administered on 06/20/18at 01:30; Start 06/11/18 at 15:00 Trazodone HCl (Desyrel) 100 mg PRN 1X PRN PO insomnia Last administered on 06/12at 04:16; Start 06/12/18 at 03:15 Lorazepam (Ativan Intensol) 0.5 mg 1X ONCE SL Last administered on 06/13/18at 21:51; Start 06/13/18 at 18:15; Stop 06/13/18 at 18:16; Status DC Lorazepam (Ativan) 1 mg DAILY IM Last administered on 06/23/18at 08:16; Start at 09:50; Stop 06/24/18 at 15:40; Status DC Haloperidol Lactate (Haldol) 5 mg DAILY IM Last administered on 06/16/18at 09:54 ; Start 06/15/18 at 09:00; Stop 06/18/18 at 10:45; Status DC [place] Carbonate 300 mg BID PO Last administered on 06/18/18at 08:14; Start at 21:00; Stop 06/18/18 at 15:03; Status DC Clozapine (Clozaril) 300 mg DAILY PO Last administered on 06/27/18 08:13; Start 06/16/18 at 09:00; Stop 06/28/18 at 00:33; Status DC Clozapine (Clozaril) 25 mg DAILY PO Last administered on 06/27/18 08:13; Start 06/16/18 at 09:00; Stop 06/28/18 at 00:33; Status DC Estradiol (Estrace) 1 speedy MoTh VG Last administered on 06/18/18at 20:05; Start 06/18/18 at 21:00 [place] Carbonate 300 mg DAILY PO Last administered on 07/02/18at 07:55; Start 06/19/18 at 09:00 [place] Citrate 5.3 meq QHS PO Last administered on 07/02/18at 19:46; Start at 21:00 Levothyroxine Sodium (Synthroid) 75 mcg 1X ONCE PO Last administered on 07:53; Start 06/19/18 at 07:00; Stop 06/19/18 at 07:01; Status DC Benztropine Mesylate (Cogentin) 1.5 mg QHS PO Last administered on 06/24/18at 19: 58; Start 06/22/18 at 21:00; Stop 06/25/18 at 17:05; Status DC Benztropine Mesylate (Cogentin) 1 mg QHS PO Last administered on 07/02/18at 19: 43; Start 06/25/18 at 21:00; Stop 07/02/18 at 21:00; Status DC Clozapine (Clozaril) 300 mg HS PO Last administered on 07/02/18at 19:42; Start 06/28/18 at 21:00 Clozapine (Clozaril) 25 mg HS PO Last administered on 07/02/18at 19:42; Start at 21:00 Benztropine Mesylate (Cogentin) 0.5 mg QHS PO ; Start 07/03/18 at 21:00; Stop at 20:59 Active Scripts Active Reported Hydroxyzine Hcl 10 Mg Tablet 10 Mg PO PRN Q2HR PRN Clozapine 100 Mg Tablet 1 Tab PO 1700 Remeron (Mirtazapine) 15 Mg Tablet 1 Tab PO 1700 Depakote Er (Divalproex Sodium) 500 Mg Tab.er.24h 750 Mg PO 1700 Nystatin 15 Gm Powder 1 Speedy TP BID Lidocaine 1 Each Adh..patch 1 Each TP DAILY Lotrimin Af (Clotrimazole) 12 Gm Cream..g. 1 Speedy TP BID PRN Sorbitol (Sorbitol Solution) 1 Ml Solution 30 Ml PO PRN DAILY PRN Trazodone Hcl 50 Mg Tablet 100 Mg PO QHS PRN Elmer-128 (Sodium Chloride) 3.5 Gm Oint...g. 1 Speedy OP HS Lipitor (Atorvastatin Calcium) 20 Mg Tablet 20 Mg PO DAILYWSUP Levothyroxine Sodium 75 Mcg Tablet 75 Mcg PO DAILYAC Estrace (Estradiol) 42.5 Gm Cream.appl 1 Speedy VG 2X WEEK Q FRI, Endocet 10-325 Mg Tablet (Oxycodone Hcl/Acetaminophen) 1 Each Tablet 1 Each PO PRN Q6HRS PRN Vitamin B-12 (Cyanocobalamin (Vitamin B-12)) 1,000 Mcg Tablet 1,000 Mcg PO DAILY Maalox Advanced Suspension (Mag Hydrox/Aluminum Hyd/Simeth) 355 Ml Oral.susp 15 Ml PO PRN AFTMEALHC PRN Analgesic Scott (Methyl Salicylate/Menthol) 28 Gm Oint...g. 1 Speedy TP PRN QID PRN Risperidone 1 Mg Tablet 1.5 Mg PO 1700 Refresh Classic Eye Drops (Polyvinyl Alcohol/Povidone/Pf) 1 Each Droperette 1 Each OU TID PRN Trazodone Hcl 50 Mg Tablet 100 Mg PO DAILYWSUP Norvasc (Amlodipine Besylate) 5 Mg Tablet 10 Mg PO DAILY Miralax (Polyethylene Glycol 3350) 17 Gm Powd.pack 17 Gm PO DAILY Milk Of Magnesia (Magnesium Hydroxide) 2,400 Mg/10 Ml Oral.susp 2,400 Mg PO PRN DAILY PRN Tylenol (Acetaminophen) 325 Mg Tablet 650 Mg PO PRN Q6HRS PRN I have reviewed the current psychotropics carefully including drug interactions. Risk benefit ratio favors no change other than as noted in my dictated progress note. 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
--- NOTE | 2018-07-02 23:31 | NUR ---
Pt withdrawn to room at shift change. Pt calm, interactive w/staff, pleasant. Pt cooperative and compliant with medications and assessment.
[2018-07-03] MEDS: LEVOTHYROXINE 75 MCG TABLET PO SCH (06:05)
[2018-07-03 06:28] VITALS: BP 142/90
[2018-07-03] MEDS: amLODIPine BESYLATE 5 MG TABLET PO SCH (09:12)
[2018-07-03] MEDS: POLYETHYLENE GLYCOL 3350 17 GM PACKET. PO SCH (09:12)
[2018-07-03] MEDS: LITHIUM CARBONATE 300 MG TABLET PO SCH (09:12)
[2018-07-03] MEDS: FUROSEMIDE 20 MG TABLET PO SCH (09:12)
[2018-07-03] MEDS: CYANOCOBALAMIN (VITAMIN B-12) 1,000 MCG TABLET. PO SCH (09:13)
[2018-07-03] MEDS: prednisoLONE ACETATE 1% OPHTH SUSPENSION 5ML BOTTLE. OD SCH (09:13)
[2018-07-03 16:54] VITALS: BP 138/79
--- NOTE | 2018-07-03 18:36 | NUR ---
Nursing Note: Calm, compliant, withdrawn to room.
[2018-07-03] MEDS: LITHIUM CITRATE PO SCH (20:55)
[2018-07-03] MEDS: cloZAPine 100 MG TABLET PO SCH (20:56)
[2018-07-03] MEDS: ATORVASTATIN CALCIUM 20 MG TABLET PO SCH (20:56)
[2018-07-03] MEDS: MIRTAZAPINE 7.5 MG TABLET. PO SCH (20:56)
[2018-07-03] MEDS: DIVALPROEX ER 500 MG TAB.ER.24H PO SCH (20:56)
[2018-07-03] MEDS: cloZAPine 25 MG TABLET PO SCH (20:56)
[2018-07-03] MEDS ORDERED: BENZTROPINE MESYLATE 0.5 MG TABLET PO SCH (21:00)
--- NOTE | 2018-07-03 22:41 | PDOC ---
Exam Note: Julian Note: Please also refer to the separate dictated note~for this date of service dictated separately.~Patient seen individually. Discussed the patient with Nursing staff reviewed the chart.~Reviewed interim history and current functioning. Reviewed vital signs,~Labs/ Radiology~and current medications noted below. Continue current treatment with the changes noted in the dictated addendum note Assessment: Vital Signs: Vital Signs Date Time Temp Pulse Resp B/P (MAP) Pulse Ox O2 Delivery O2 Flow Rate FiO2 07/03/18 16:54 98.2 96 20 138/79 (98) 100 Room Air I&O Intake and Output 07/03/18 07:00 Intake Total 600 ml Balance 600 ml Intake Oral 600 ml Labs: Laboratory Tests Test 07/03/18 07:31 [place] Level 0.6 mmol/L (0.6-1.2) [place] Last Dose Date 07/02/18 [place] Last Dose Time 2100 Current Medications: Meds: Current Medications Acetaminophen (Tylenol) 650 mg PRN Q6HRS PRN PO PAIN / TEMP Last administered on 06/23/18at 05:51; Start 06/06/18 at 04:15 Multi-Ingredient Ointment (Analgesic [place]) 1 speedy PRN QID PRN TP MUSCLE PAIN Last administered on 06/07/18at 22:53; Start 06/06/18 at 04:15 Al Hydroxide/Mg Hydroxide (Mylanta Plus Xs) 15 ml PRN AFTMEALHC PRN PO DYSPEPSIA; Start 06/06/18 at 04:15 Magnesium Hydroxide (Milk Of Magnesia) 2,400 mg PRN QHS PRN PO CONSTIPATION; Start 06/06/18 at 04:15 Amlodipine Besylate (Norvasc) 5 mg DAILY PO Last administered on 07/03/18at 09: 12; Start 06/06/18 at 09:00 Atorvastatin Calcium (Lipitor) 20 mg QHS PO Last administered on 07/03/18 20: 56; Start 06/06/18 at 21:00 Clozapine (Clozaril) 100 mg [id number] PO Last administered on 06/15/18at 07:44; Start 06/06/18 at 09:00; Stop 06/15/18 at 18:36; Status DC Clozapine (Clozaril) 50 mg BID94 PO Last administered on 06/15/18at 07:44; Start 06/06/18 at 09:00; Stop 06/15/18 at 18:36; Status DC Cyanocobalamin (Vitamin B-12) 1,000 mcg DAILY PO Last administered on 09:13; Start 06/06/18 at 09:00 Divalproex Sodium (Depakote Er) 1,000 mg QHS PO Last administered on 07/03/18 20:56; Start 06/06/18 at 21:00 Vitamin D (Vitamin D3) 50,000 unit WEEKLY PO Last administered on 06/28/18 08: 42; Start 06/07/18 at 09:00 Estradiol (Estrace) 1 speedy QMTH VG Last administered on 06/08/18 15:41; Start 06/08/18 at 16:00; Stop 06/08/18 at 21:19; Status DC Furosemide (Lasix) 20 mg DAILY PO Last administered on 07/03/18 09:12; Start 06/06/18 at 09:00 Levothyroxine Sodium (Synthroid) 75 mcg DAILY06 PO Last administered on 06:05; Start 06/06/18 at 06:00 Melatonin 6 mg PRN QHS PRN PO INSOMNIA Last administered on 06/13/18 22:23; Start 06/06/18 at 04:30 Magnesium Hydroxide (Milk Of Magnesia) 2,400 mg PRN DAILY PRN PO CONSTIPATION; Start 06/06/18 at 04:30; Status UNV Polyethylene Glycol (miraLAX) 17 gm DAILY PO Last administered on 07/03/18 09: 12; Start 06/06/18 at 09:00 Prednisolone Acetate (Pred Forte) 1 drop DAILY OD Last administered on 09:13; Start 06/06/18 at 09:00 Artificial Tears (Refresh Classic) 1 drop TID PRN PRN OU DRY EYE; Start at 04:30 Mirtazapine (Remeron) 7.5 mg QHS PO Last administered on 07/03/18 20:56; Start 06/06/18 at 21:00 Trazodone HCl (Desyrel) 100 mg PRN QHS PRN PO INSOMNIA, MAY REPEAT X3 Last administered on 06/23/18 20:10; Start 06/06/18 at 19:00 Olanzapine (ZyPREXA ZYDIS) 5 mg PRN Q2HR PRN PO PSYCHOSIS Last administered on 06/17/18at 22:09; Start 06/07/18 at 14:00 Haloperidol (Haldol) 5 mg HS PO ; Start 06/07/18 at 21:00; Stop 06/07/18 at 21: 00; Status DC Haloperidol Lactate (Haldol) 5 mg DAILY IM Last administered on 06/09/18at 07:51 ; Start 06/07/18 at 19:15; Stop 06/09/18 at 09:41; Status DC Estradiol (Estrace) 1 speedy QMTH VG ; Start 06/11/18 at 21:00; Stop 06/18/18 at 11 :41; Status DC Haloperidol Lactate (Haldol) 5 mg 1X ONCE IM Last administered on 06/09/18at 09 :43; Start 06/09/18 at 09:45; Stop 06/09/18 at 09:46; Status DC Haloperidol Lactate (Haldol) 10 mg DAILY IM Last administered on 06/14/18at 08: 40; Start 06/10/18 at 09:00; Stop 06/14/18 at 13:06; Status DC Hydroxyzine HCl (Atarax) 50 mg 1X ONCE PO Last administered on 06/09/18at 17:26 ; Start 06/09/18 at 17:15; Stop 06/09/18 at 17:24; Status DC Hydroxyzine HCl (Atarax) 50 mg 1X ONCE PO Last administered on 06/09/18at 18:29 ; Start 06/09/18 at 18:25; Stop 06/09/18 at 18:26; Status DC Benztropine Mesylate (Cogentin) 1 mg QHS PO Last administered on 06/21/18at 21:57 ; Start 06/10/18 at 21:00; Stop 06/22/18 at 16:50; Status DC [place] Carbonate 300 mg HS PO Last administered on 06/13/18at 19:20; Start at 21:00; Stop 06/14/18 at 13:06; Status DC Hydroxyzine HCl (Atarax) 50 mg PRN Q2HR PRN PO SEDATION Last administered on 06/20/18at 01:30; Start 06/11/18 at 15:00 Trazodone HCl (Desyrel) 100 mg PRN 1X PRN PO insomnia Last administered on 06/12 04:16; Start 06/12/18 at 03:15 Lorazepam (Ativan Intensol) 0.5 mg 1X ONCE SL Last administered on 06/13/18 21:51; Start 06/13/18 at 18:15; Stop 06/13/18 at 18:16; Status DC Lorazepam (Ativan) 1 mg DAILY IM Last administered on 06/23/18 08:16; Start at 09:50; Stop 06/24/18 at 15:40; Status DC Haloperidol Lactate (Haldol) 5 mg DAILY IM Last administered on 06/16/18 09:54 ; Start 06/15/18 at 09:00; Stop 06/18/18 at 10:45; Status DC [place] Carbonate 300 mg BID PO Last administered on 06/18/18 08:14; Start at 21:00; Stop 06/18/18 at 15:03; Status DC Clozapine (Clozaril) 300 mg DAILY PO Last administered on 06/27/18 08:13; Start 06/16/18 at 09:00; Stop 06/28/18 at 00:33; Status DC Clozapine (Clozaril) 25 mg DAILY PO Last administered on 06/27/18 08:13; Start 06/16/18 at 09:00; Stop 06/28/18 at 00:33; Status DC Estradiol (Estrace) 1 speedy MoTh VG Last administered on 06/18/18at 20:05; Start 06/18/18 at 21:00 [place] Carbonate 300 mg DAILY PO Last administered on 07/03/18 09:12; Start 06/19/18 at 09:00 [place] Citrate 5.3 meq QHS PO Last administered on 07/03/18 20:55; Start at 21:00 Levothyroxine Sodium (Synthroid) 75 mcg 1X ONCE PO Last administered on 07:53; Start 06/19/18 at 07:00; Stop 06/19/18 at 07:01; Status DC Benztropine Mesylate (Cogentin) 1.5 mg QHS PO Last administered on 06/24/18 19: 58; Start 06/22/18 at 21:00; Stop 06/25/18 at 17:05; Status DC Benztropine Mesylate (Cogentin) 1 mg QHS PO Last administered on 07/02/18at 19: 43; Start 06/25/18 at 21:00; Stop 07/02/18 at 21:00; Status DC Clozapine (Clozaril) 300 mg HS PO Last administered on 07/03/18at 20:56; Start 06/28/18 at 21:00 Clozapine (Clozaril) 25 mg HS PO Last administered on 07/03/18at 20:56; Start at 21:00 Benztropine Mesylate (Cogentin) 0.5 mg QHS PO Last administered on 07/03/18at 20 :59; Start 07/03/18 at 21:00; Stop 07/04/18 at 20:59 Active Scripts Active Reported Hydroxyzine Hcl 10 Mg Tablet 10 Mg PO PRN Q2HR PRN Clozapine 100 Mg Tablet 1 Tab PO 1700 Remeron (Mirtazapine) 15 Mg Tablet 1 Tab PO 1700 Depakote Er (Divalproex Sodium) 500 Mg Tab.er.24h 750 Mg PO 1700 Nystatin 15 Gm Powder 1 Speedy TP BID Lidocaine 1 Each Adh..patch 1 Each TP DAILY Lotrimin Af (Clotrimazole) 12 Gm Cream..g. 1 Speedy TP BID PRN Sorbitol (Sorbitol Solution) 1 Ml Solution 30 Ml PO PRN DAILY PRN Trazodone Hcl 50 Mg Tablet 100 Mg PO QHS PRN [place]mer-128 (Sodium Chloride) 3.5 Gm Oint...g. 1 Speedy OP HS Lipitor (Atorvastatin Calcium) 20 Mg Tablet 20 Mg PO DAILYWSUP Levothyroxine Sodium 75 Mcg Tablet 75 Mcg PO DAILYAC Estrace (Estradiol) 42.5 Gm Cream.appl 1 Speedy VG 2X WEEK Q FRI, URS Endocet 10-325 Mg Tablet (Oxycodone Hcl/Acetaminophen) 1 Each Tablet 1 Each PO PRN Q6HRS PRN Vitamin B-12 (Cyanocobalamin (Vitamin B-12)) 1,000 Mcg Tablet 1,000 Mcg PO DAILY Maalox Advanced Suspension (Mag Hydrox/Aluminum Hyd/Simeth) 355 Ml Oral.susp 15 Ml PO PRN AFTMEALHC PRN Analgesic [place] (Methyl Salicylate/Menthol) 28 Gm Oint...g. 1 Speedy TP PRN QID PRN Risperidone 1 Mg Tablet 1.5 Mg PO 1700 Refresh Classic Eye Drops (Polyvinyl Alcohol/Povidone/Pf) 1 Each Droperette 1 Each OU TID PRN Trazodone Hcl 50 Mg Tablet 100 Mg PO DAILYWSUP Norvasc (Amlodipine Besylate) 5 Mg Tablet 10 Mg PO DAILY Miralax (Polyethylene Glycol 3350) 17 Gm Powd.pack 17 Gm PO DAILY Milk Of Magnesia (Magnesium Hydroxide) 2,400 Mg/10 Ml Oral.susp 2,400 Mg PO PRN DAILY PRN Tylenol (Acetaminophen) 325 Mg Tablet 650 Mg PO PRN Q6HRS PRN I have reviewed the current psychotropics carefully including drug interactions. Risk benefit ratio favors no change other than as noted in my dictated progress note. 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
--- NOTE | 2018-07-03 23:45 | NUR ---
Nursing Note The patient was located in her room for her assessment and medication pass. The patient was compliant with her medications and was appropriate with her interactions with staff and peers. The patient is currently sleeping in her room.
--- NOTE | 2018-07-03 23:59 | PN ---
DATE: 07/01/2018 PSYCHIATRIC PROGRESS NOTE This is a late entry, 07/01/2017, covers elements not covered in my initial note. SUBJECTIVE: I met with the patient in the evening in her room at length. The patient slept 7 hours previous night, compliant with medications, cooperative, somewhat withdrawn, but Psychotic symptoms are much improved. Drooling is not evident. She is ambulating on her own. No CV, , pulmonary, eye system symptoms on review. MENTAL STATUS EXAM: Oriented to herself and situation. Speech is coherent, at times a little pressured. Abstraction fair, computation impaired, language function intact, attention span short. Mood and affect is improved. No suicidal ideation. LABORATORY DATA: Reviewed. IMPRESSION: Unchanged from initial note. PLAN: No change from initial note. Check another lithium level. MAN Rox WATT MD DR: SANCHEZ/fredrick JOB#: [id number] / [id number]
--- NOTE | 2018-07-04 00:22 | PN ---
DATE: 07/02/2018 PSYCHIATRIC PROGRESS NOTE This late entry 07/02/2018 covers elements not covered in my initial note. SUBJECTIVE: I met with the patient in the evening and staffed at a treatment team meeting with the entire team in the morning. The patient slept 9 hours previous night, average 8 hours, 100% for appetite, not agitated. No hallucinations noted. Social service staff discussed, looking for level 2 placement for her. REVIEW OF SYSTEMS: No further drooling. No CV, , eye, ENT system symptoms on review. MENTAL STATUS EXAM: Reasonably oriented. I met with her in her room. Speech coherent, less pressured. Abstraction fair, computation impaired, language function intact, attention span short. Mood and affect, much less manic, almost euthymic. No suicidal or homicidal ideation. LABORATORY DATA: Reviewed. IMPRESSION: Unchanged from initial note. Check lithium level in the morning. Rest unchanged. MAN Rox WATT MD DR: SANCHEZ/fredrick JOB#: [id number] / [id number]
[2018-07-04] MEDS: LEVOTHYROXINE 75 MCG TABLET PO SCH (06:28)
[2018-07-04 06:56] VITALS: BP 121/82
[2018-07-04] MEDS: amLODIPine BESYLATE 5 MG TABLET PO SCH (08:19)
[2018-07-04] MEDS: LITHIUM CARBONATE 300 MG TABLET PO SCH (08:19)
[2018-07-04] MEDS: CYANOCOBALAMIN (VITAMIN B-12) 1,000 MCG TABLET. PO SCH (08:19)
[2018-07-04] MEDS: POLYETHYLENE GLYCOL 3350 17 GM PACKET. PO SCH (08:20)
[2018-07-04] MEDS: FUROSEMIDE 20 MG TABLET PO SCH (08:20)
[2018-07-04] MEDS: prednisoLONE ACETATE 1% OPHTH SUSPENSION 5ML BOTTLE. OD SCH (08:20)
--- NOTE | 2018-07-04 14:58 | NUR ---
Pt is cooperative, compliant, and appropriate. Pt interacts appropriately with peers and staff. No hallucinations, delusions at this time. She is withdrawn to her room.
[2018-07-04 16:12] VITALS: BP 114/73
[2018-07-04] MEDS: MIRTAZAPINE 7.5 MG TABLET. PO SCH (20:02)
[2018-07-04] MEDS: cloZAPine 25 MG TABLET PO SCH (20:02)
[2018-07-04] MEDS: DIVALPROEX ER 500 MG TAB.ER.24H PO SCH (20:02)
[2018-07-04] MEDS: ATORVASTATIN CALCIUM 20 MG TABLET PO SCH (20:03)
[2018-07-04] MEDS: cloZAPine 100 MG TABLET PO SCH (20:03)
[2018-07-04] MEDS: LITHIUM CITRATE PO SCH (20:06)
--- NOTE | 2018-07-04 22:00 | PDOC ---
Exam Note: Julian Note: Please also refer to the separate dictated note~for this date of service dictated separately.~Patient seen individually. Discussed the patient with Nursing staff reviewed the chart.~Reviewed interim history and current functioning. Reviewed vital signs,~Labs/ Radiology~and current medications noted below. Continue current treatment with the changes noted in the dictated addendum note Assessment: Vital Signs: Vital Signs Date Time Temp Pulse Resp B/P (MAP) Pulse Ox O2 Delivery O2 Flow Rate FiO2 07/04/18 16:12 98.3 92 18 114/73 (87) 94 07/03/18 16:54 Room Air I&O Intake and Output 07/04/18 07:00 Intake Total 480 ml Balance 480 ml Intake Oral 480 ml Current Medications: Meds: Current Medications Acetaminophen (Tylenol) 650 mg PRN Q6HRS PRN PO PAIN / TEMP Last administered on 06/23/18 05:51; Start 06/06/18 at 04:15 Multi-Ingredient Ointment (Analgesic [place]ecan Gap) 1 speedy PRN QID PRN TP MUSCLE PAIN Last administered on 06/07/18at 22:53; Start 06/06/18 at 04:15 Al Hydroxide/Mg Hydroxide (Mylanta Plus Xs) 15 ml PRN AFTMEALHC PRN PO DYSPEPSIA; Start 06/06/18 at 04:15 Magnesium Hydroxide (Milk Of Magnesia) 2,400 mg PRN QHS PRN PO CONSTIPATION; Start 06/06/18 at 04:15 Amlodipine Besylate (Norvasc) 5 mg DAILY PO Last administered on 07/04/18at 08: 19; Start 06/06/18 at 09:00 Atorvastatin Calcium (Lipitor) 20 mg QHS PO Last administered on 07/04/18at 20: 03; Start 06/06/18 at 21:00 Clozapine (Clozaril) 100 mg [id number] PO Last administered on 06/15/18at 07:44; Start 06/06/18 at 09:00; Stop 06/15/18 at 18:36; Status DC Clozapine (Clozaril) 50 mg [id number] PO Last administered on 06/15/18at 07:44; Start 06/06/18 at 09:00; Stop 06/15/18 at 18:36; Status DC Cyanocobalamin (Vitamin B-12) 1,000 mcg DAILY PO Last administered on 08:19; Start 06/06/18 at 09:00 Divalproex Sodium (Depakote Er) 1,000 mg QHS PO Last administered on 07/04/18 20:02; Start 06/06/18 at 21:00 Vitamin D (Vitamin D3) 50,000 unit WEEKLY PO Last administered on 06/28/18 08: 42; Start 06/07/18 at 09:00 Estradiol (Estrace) 1 speedy QMTH VG Last administered on 06/08/18 15:41; Start 06/08/18 at 16:00; Stop 06/08/18 at 21:19; Status DC Furosemide (Lasix) 20 mg DAILY PO Last administered on 07/04/18 08:20; Start 06/06/18 at 09:00 Levothyroxine Sodium (Synthroid) 75 mcg DAILY06 PO Last administered on 06:28; Start 06/06/18 at 06:00 Melatonin 6 mg PRN QHS PRN PO INSOMNIA Last administered on 06/13/18 22:23; Start 06/06/18 at 04:30 Magnesium Hydroxide (Milk Of Magnesia) 2,400 mg PRN DAILY PRN PO CONSTIPATION; Start 06/06/18 at 04:30; Status UNV Polyethylene Glycol (miraLAX) 17 gm DAILY PO Last administered on 07/04/18 08: 20; Start 06/06/18 at 09:00 Prednisolone Acetate (Pred Forte) 1 drop DAILY OD Last administered on 08:20; Start 06/06/18 at 09:00 Artificial Tears (Refresh Classic) 1 drop TID PRN PRN OU DRY EYE; Start at 04:30 Mirtazapine (Remeron) 7.5 mg QHS PO Last administered on 07/04/18 20:02; Start 06/06/18 at 21:00 Trazodone HCl (Desyrel) 100 mg PRN QHS PRN PO INSOMNIA, MAY REPEAT X3 Last administered on 06/23/18 20:10; Start 06/06/18 at 19:00 Olanzapine (ZyPREXA ZYDIS) 5 mg PRN Q2HR PRN PO PSYCHOSIS Last administered on 06/17/18 22:09; Start 06/07/18 at 14:00 Haloperidol (Haldol) 5 mg HS PO ; Start 06/07/18 at 21:00; Stop 06/07/18 at 21: 00; Status DC Haloperidol Lactate (Haldol) 5 mg DAILY IM Last administered on 06/09/18at 07:51 ; Start 06/07/18 at 19:15; Stop 06/09/18 at 09:41; Status DC Estradiol (Estrace) 1 speedy QMTH VG ; Start 06/11/18 at 21:00; Stop 06/18/18 at 11 :41; Status DC Haloperidol Lactate (Haldol) 5 mg 1X ONCE IM Last administered on 06/09/18at 09 :43; Start 06/09/18 at 09:45; Stop 06/09/18 at 09:46; Status DC Haloperidol Lactate (Haldol) 10 mg DAILY IM Last administered on 06/14/18at 08: 40; Start 06/10/18 at 09:00; Stop 06/14/18 at 13:06; Status DC Hydroxyzine HCl (Atarax) 50 mg 1X ONCE PO Last administered on 06/09/18at 17:26 ; Start 06/09/18 at 17:15; Stop 06/09/18 at 17:24; Status DC Hydroxyzine HCl (Atarax) 50 mg 1X ONCE PO Last administered on 06/09/18at 18:29 ; Start 06/09/18 at 18:25; Stop 06/09/18 at 18:26; Status DC Benztropine Mesylate (Cogentin) 1 mg QHS PO Last administered on 06/21/18at 21:57 ; Start 06/10/18 at 21:00; Stop 06/22/18 at 16:50; Status DC [place] Carbonate 300 mg HS PO Last administered on 06/13/18at 19:20; Start at 21:00; Stop 06/14/18 at 13:06; Status DC Hydroxyzine HCl (Atarax) 50 mg PRN Q2HR PRN PO SEDATION Last administered on 06/20/18at 01:30; Start 06/11/18 at 15:00 Trazodone HCl (Desyrel) 100 mg PRN 1X PRN PO insomnia Last administered on 06/12at 04:16; Start 06/12/18 at 03:15 Lorazepam (Ativan Intensol) 0.5 mg 1X ONCE SL Last administered on 06/13/18at 21:51; Start 06/13/18 at 18:15; Stop 06/13/18 at 18:16; Status DC Lorazepam (Ativan) 1 mg DAILY IM Last administered on 06/23/18at 08:16; Start at 09:50; Stop 06/24/18 at 15:40; Status DC Haloperidol Lactate (Haldol) 5 mg DAILY IM Last administered on 06/16/18at 09:54 ; Start 06/15/18 at 09:00; Stop 06/18/18 at 10:45; Status DC [place] Carbonate 300 mg BID PO Last administered on 06/18/18at 08:14; Start at 21:00; Stop 06/18/18 at 15:03; Status DC Clozapine (Clozaril) 300 mg DAILY PO Last administered on 06/27/18 08:13; Start 06/16/18 at 09:00; Stop 06/28/18 at 00:33; Status DC Clozapine (Clozaril) 25 mg DAILY PO Last administered on 06/27/18 08:13; Start 06/16/18 at 09:00; Stop 06/28/18 at 00:33; Status DC Estradiol (Estrace) 1 speedy MoTh VG Last administered on 06/18/18at 20:05; Start 06/18/18 at 21:00 [place] Carbonate 300 mg DAILY PO Last administered on 07/04/18 08:19; Start 06/19/18 at 09:00 [place] Citrate 5.3 meq QHS PO Last administered on 07/04/18at 20:06; Start at 21:00 Levothyroxine Sodium (Synthroid) 75 mcg 1X ONCE PO Last administered on at 07:53; Start 06/19/18 at 07:00; Stop 06/19/18 at 07:01; Status DC Benztropine Mesylate (Cogentin) 1.5 mg QHS PO Last administered on 06/24/18at 19: 58; Start 06/22/18 at 21:00; Stop 06/25/18 at 17:05; Status DC Benztropine Mesylate (Cogentin) 1 mg QHS PO Last administered on 07/02/18at 19: 43; Start 06/25/18 at 21:00; Stop 07/02/18 at 21:00; Status DC Clozapine (Clozaril) 300 mg HS PO Last administered on 07/04/18at 20:03; Start 06/28/18 at 21:00 Clozapine (Clozaril) 25 mg HS PO Last administered on 07/04/18at 20:02; Start at 21:00 Benztropine Mesylate (Cogentin) 0.5 mg QHS PO Last administered on 07/03/18at 20 :59; Start 07/03/18 at 21:00; Stop 07/04/18 at 20:59; Status DC Active Scripts Active Reported Hydroxyzine Hcl 10 Mg Tablet 10 Mg PO PRN Q2HR PRN Clozapine 100 Mg Tablet 1 Tab PO 1700 Remeron (Mirtazapine) 15 Mg Tablet 1 Tab PO 1700 Depakote Er (Divalproex Sodium) 500 Mg Tab.er.24h 750 Mg PO 1700 Nystatin 15 Gm Powder 1 Speedy TP BID Lidocaine 1 Each Adh..patch 1 Each TP DAILY Lotrimin Af (Clotrimazole) 12 Gm Cream..g. 1 Speedy TP BID PRN Sorbitol (Sorbitol Solution) 1 Ml Solution 30 Ml PO PRN DAILY PRN Trazodone Hcl 50 Mg Tablet 100 Mg PO QHS PRN Elmer-128 (Sodium Chloride) 3.5 Gm Oint...g. 1 Speedy OP HS Lipitor (Atorvastatin Calcium) 20 Mg Tablet 20 Mg PO DAILYWSUP Levothyroxine Sodium 75 Mcg Tablet 75 Mcg PO DAILYAC Estrace (Estradiol) 42.5 Gm Cream.appl 1 Speedy VG 2X WEEK Q FRI, Endocet 10-325 Mg Tablet (Oxycodone Hcl/Acetaminophen) 1 Each Tablet 1 Each PO PRN Q6HRS PRN Vitamin B-12 (Cyanocobalamin (Vitamin B-12)) 1,000 Mcg Tablet 1,000 Mcg PO DAILY Maalox Advanced Suspension (Mag Hydrox/Aluminum Hyd/Simeth) 355 Ml Oral.susp 15 Ml PO PRN AFTMEALHC PRN Analgesic Pecan Gap (Methyl Salicylate/Menthol) 28 Gm Oint...g. 1 Speedy TP PRN QID PRN Risperidone 1 Mg Tablet 1.5 Mg PO 1700 Refresh Classic Eye Drops (Polyvinyl Alcohol/Povidone/Pf) 1 Each Droperette 1 Each OU TID PRN Trazodone Hcl 50 Mg Tablet 100 Mg PO DAILYWSUP Norvasc (Amlodipine Besylate) 5 Mg Tablet 10 Mg PO DAILY Miralax (Polyethylene Glycol 3350) 17 Gm Powd.pack 17 Gm PO DAILY Milk Of Magnesia (Magnesium Hydroxide) 2,400 Mg/10 Ml Oral.susp 2,400 Mg PO PRN DAILY PRN Tylenol (Acetaminophen) 325 Mg Tablet 650 Mg PO PRN Q6HRS PRN I have reviewed the current psychotropics carefully including drug interactions. Risk benefit ratio favors no change other than as noted in my dictated progress note. 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
--- NOTE | 2018-07-04 22:02 | NUR ---
PT IS CALM AND RESTING IN ROOM. PT COMPLIANT WITH EVENING MEDICATIONS. PT HAS NO COMPLAINTS AND IS NOT AGGRESSIVE AT THIS TIME.
[2018-07-05] MEDS: LEVOTHYROXINE 75 MCG TABLET PO SCH (05:47)
[2018-07-05 05:58] VITALS: BP 135/85
[2018-07-05] MEDS: prednisoLONE ACETATE 1% OPHTH SUSPENSION 5ML BOTTLE. OD SCH (08:11)
[2018-07-05] MEDS: LITHIUM CARBONATE 300 MG TABLET PO SCH (08:12)
[2018-07-05] MEDS: FUROSEMIDE 20 MG TABLET PO SCH (08:12)
[2018-07-05] MEDS: POLYETHYLENE GLYCOL 3350 17 GM PACKET. PO SCH (08:12)
[2018-07-05] MEDS: CHOLECALCIFEROL (VITAMIN D3) 50,000 UNIT CAPSULE PO SCH (08:13)
[2018-07-05] MEDS: amLODIPine BESYLATE 5 MG TABLET PO SCH (08:13)
[2018-07-05] MEDS: CYANOCOBALAMIN (VITAMIN B-12) 1,000 MCG TABLET. PO SCH (08:13)
--- NOTE | 2018-07-05 11:28 | NUR ---
Pt has been calm, cooperative, compliant. No agitation or aggression thus far this shift. She is able to focus on tasks and is med compliant. Denies hallucinations. No delusions noted. She is withdrawn to her room.
[2018-07-05 16:18] VITALS: BP 152/79
[2018-07-05] MEDS: LITHIUM CITRATE PO SCH (19:39)
[2018-07-05] MEDS: cloZAPine 25 MG TABLET PO SCH (19:40)
[2018-07-05] MEDS: cloZAPine 100 MG TABLET PO SCH (19:40)
[2018-07-05] MEDS: MIRTAZAPINE 7.5 MG TABLET. PO SCH (19:40)
[2018-07-05] MEDS: DIVALPROEX ER 500 MG TAB.ER.24H PO SCH (19:40)
[2018-07-05] MEDS: ATORVASTATIN CALCIUM 20 MG TABLET PO SCH (19:40)
--- NOTE | 2018-07-05 21:40 | NUR ---
Patient was in room all night. Compliant with medications taken whole with water. Cooperative, asked for ice water and blanket then went to sleep.
--- NOTE | 2018-07-05 22:40 | PDOC ---
Exam Note: Julian Note: Please also refer to the separate dictated note~for this date of service dictated separately.~Patient seen individually. Discussed the patient with Nursing staff reviewed the chart.~Reviewed interim history and current functioning. Reviewed vital signs,~Labs/ Radiology~and current medications noted below. Continue current treatment with the changes noted in the dictated addendum note Assessment: Vital Signs: Vital Signs Date Time Temp Pulse Resp B/P (MAP) Pulse Ox O2 Delivery O2 Flow Rate FiO2 07/05/18 16:18 98.5 84 20 152/79 (103) 96 07/03/18 16:54 Room Air I&O Intake and Output 07/05/18 07:00 Intake Total 840 ml Balance 840 ml Intake Oral 840 ml Current Medications: Meds: Current Medications Acetaminophen (Tylenol) 650 mg PRN Q6HRS PRN PO PAIN / TEMP Last administered on 06/23/18at 05:51; Start 06/06/18 at 04:15 Multi-Ingredient Ointment (Analgesic [place]) 1 speedy PRN QID PRN TP MUSCLE PAIN Last administered on 06/07/18at 22:53; Start 06/06/18 at 04:15 Al Hydroxide/Mg Hydroxide (Mylanta Plus Xs) 15 ml PRN AFTMEALHC PRN PO DYSPEPSIA; Start 06/06/18 at 04:15 Magnesium Hydroxide (Milk Of Magnesia) 2,400 mg PRN QHS PRN PO CONSTIPATION; Start 06/06/18 at 04:15 Amlodipine Besylate (Norvasc) 5 mg DAILY PO Last administered on 07/05/18at 08: 13; Start 06/06/18 at 09:00 Atorvastatin Calcium (Lipitor) 20 mg QHS PO Last administered on 07/05/18at 19: 40; Start 06/06/18 at 21:00 Clozapine (Clozaril) 100 mg [id number] PO Last administered on 06/15/18at 07:44; Start 06/06/18 at 09:00; Stop 06/15/18 at 18:36; Status DC Clozapine (Clozaril) 50 mg [id number] PO Last administered on 06/15/18at 07:44; Start 06/06/18 at 09:00; Stop 06/15/18 at 18:36; Status DC Cyanocobalamin (Vitamin B-12) 1,000 mcg DAILY PO Last administered on 08:13; Start 06/06/18 at 09:00 Divalproex Sodium (Depakote Er) 1,000 mg QHS PO Last administered on 07/05/18 19:40; Start 06/06/18 at 21:00 Vitamin D (Vitamin D3) 50,000 unit WEEKLY PO Last administered on 07/05/18 08: 13; Start 06/07/18 at 09:00 Estradiol (Estrace) 1 speedy QMTH VG Last administered on 06/08/18at 15:41; Start 06/08/18 at 16:00; Stop 06/08/18 at 21:19; Status DC Furosemide (Lasix) 20 mg DAILY PO Last administered on 07/05/18 08:12; Start 06/06/18 at 09:00 Levothyroxine Sodium (Synthroid) 75 mcg DAILY06 PO Last administered on 05:47; Start 06/06/18 at 06:00 Melatonin 6 mg PRN QHS PRN PO INSOMNIA Last administered on 06/13/18 22:23; Start 06/06/18 at 04:30 Magnesium Hydroxide (Milk Of Magnesia) 2,400 mg PRN DAILY PRN PO CONSTIPATION; Start 06/06/18 at 04:30; Status UNV Polyethylene Glycol (miraLAX) 17 gm DAILY PO Last administered on 07/05/18 08: 12; Start 06/06/18 at 09:00 Prednisolone Acetate (Pred Forte) 1 drop DAILY OD Last administered on 08:11; Start 06/06/18 at 09:00 Artificial Tears (Refresh Classic) 1 drop TID PRN PRN OU DRY EYE; Start at 04:30 Mirtazapine (Remeron) 7.5 mg QHS PO Last administered on 07/05/18 19:40; Start 06/06/18 at 21:00 Trazodone HCl (Desyrel) 100 mg PRN QHS PRN PO INSOMNIA, MAY REPEAT X3 Last administered on 06/23/18 20:10; Start 06/06/18 at 19:00 Olanzapine (ZyPREXA ZYDIS) 5 mg PRN Q2HR PRN PO PSYCHOSIS Last administered on 1/30/19at 22:09; Start 06/07/18 at 14:00 Haloperidol (Haldol) 5 mg HS PO ; Start 06/07/18 at 21:00; Stop 06/07/18 at 21: 00; Status DC Haloperidol Lactate (Haldol) 5 mg DAILY IM Last administered on 06/09/18at 07:51 ; Start 06/07/18 at 19:15; Stop 06/09/18 at 09:41; Status DC Estradiol (Estrace) 1 speedy QMTH VG ; Start 06/11/18 at 21:00; Stop 06/18/18 at 11 :41; Status DC Haloperidol Lactate (Haldol) 5 mg 1X ONCE IM Last administered on 06/09/18at 09 :43; Start 06/09/18 at 09:45; Stop 06/09/18 at 09:46; Status DC Haloperidol Lactate (Haldol) 10 mg DAILY IM Last administered on 06/14/18at 08: 40; Start 06/10/18 at 09:00; Stop 06/14/18 at 13:06; Status DC Hydroxyzine HCl (Atarax) 50 mg 1X ONCE PO Last administered on 06/09/18at 17:26 ; Start 06/09/18 at 17:15; Stop 06/09/18 at 17:24; Status DC Hydroxyzine HCl (Atarax) 50 mg 1X ONCE PO Last administered on 06/09/18at 18:29 ; Start 06/09/18 at 18:25; Stop 06/09/18 at 18:26; Status DC Benztropine Mesylate (Cogentin) 1 mg QHS PO Last administered on 06/21/18at 21:57 ; Start 06/10/18 at 21:00; Stop 06/22/18 at 16:50; Status DC [place] Carbonate 300 mg HS PO Last administered on 06/13/18at 19:20; Start at 21:00; Stop 06/14/18 at 13:06; Status DC Hydroxyzine HCl (Atarax) 50 mg PRN Q2HR PRN PO SEDATION Last administered on 01:30; Start 06/11/18 at 15:00 Trazodone HCl (Desyrel) 100 mg PRN 1X PRN PO insomnia Last administered on 06/12at 04:16; Start 06/12/18 at 03:15 Lorazepam (Ativan Intensol) 0.5 mg 1X ONCE SL Last administered on 06/13/18at 21:51; Start 06/13/18 at 18:15; Stop 06/13/18 at 18:16; Status DC Lorazepam (Ativan) 1 mg DAILY IM Last administered on 06/23/18at 08:16; Start at 09:50; Stop 06/24/18 at 15:40; Status DC Haloperidol Lactate (Haldol) 5 mg DAILY IM Last administered on 06/16/18at 09:54 ; Start 06/15/18 at 09:00; Stop 06/18/18 at 10:45; Status DC [place] Carbonate 300 mg BID PO Last administered on 06/18/18at 08:14; Start at 21:00; Stop 06/18/18 at 15:03; Status DC Clozapine (Clozaril) 300 mg DAILY PO Last administered on 06/27/18 08:13; Start 06/16/18 at 09:00; Stop 06/28/18 at 00:33; Status DC Clozapine (Clozaril) 25 mg DAILY PO Last administered on 06/27/18 08:13; Start 06/16/18 at 09:00; Stop 06/28/18 at 00:33; Status DC Estradiol (Estrace) 1 speedy MoTh VG Last administered on 06/18/18at 20:05; Start 06/18/18 at 21:00 [place] Carbonate 300 mg DAILY PO Last administered on 07/05/18 08:12; Start 06/19/18 at 09:00 [place] Citrate 5.3 meq QHS PO Last administered on 07/05/18at 19:39; Start at 21:00 Levothyroxine Sodium (Synthroid) 75 mcg 1X ONCE PO Last administered on 07:53; Start 06/19/18 at 07:00; Stop 06/19/18 at 07:01; Status DC Benztropine Mesylate (Cogentin) 1.5 mg QHS PO Last administered on 06/24/18at 19: 58; Start 06/22/18 at 21:00; Stop 06/25/18 at 17:05; Status DC Benztropine Mesylate (Cogentin) 1 mg QHS PO Last administered on 07/02/18at 19: 43; Start 06/25/18 at 21:00; Stop 07/02/18 at 21:00; Status DC Clozapine (Clozaril) 300 mg HS PO Last administered on 07/05/18at 19:40; Start 06/28/18 at 21:00 Clozapine (Clozaril) 25 mg HS PO Last administered on 07/05/18at 19:40; Start at 21:00 Benztropine Mesylate (Cogentin) 0.5 mg QHS PO Last administered on 07/03/18at 20 :59; Start 07/03/18 at 21:00; Stop 07/04/18 at 20:59; Status DC Active Scripts Active Reported Hydroxyzine Hcl 10 Mg Tablet 10 Mg PO PRN Q2HR PRN Clozapine 100 Mg Tablet 1 Tab PO 1700 Remeron (Mirtazapine) 15 Mg Tablet 1 Tab PO 1700 Depakote Er (Divalproex Sodium) 500 Mg Tab.er.24h 750 Mg PO 1700 Nystatin 15 Gm Powder 1 Speedy TP BID Lidocaine 1 Each Adh..patch 1 Each TP DAILY Lotrimin Af (Clotrimazole) 12 Gm Cream..g. 1 Speedy TP BID PRN Sorbitol (Sorbitol Solution) 1 Ml Solution 30 Ml PO PRN DAILY PRN Trazodone Hcl 50 Mg Tablet 100 Mg PO QHS PRN [place]-128 (Sodium Chloride) 3.5 Gm Oint...g. 1 Speedy OP HS Lipitor (Atorvastatin Calcium) 20 Mg Tablet 20 Mg PO DAILYWSUP Levothyroxine Sodium 75 Mcg Tablet 75 Mcg PO DAILYAC Estrace (Estradiol) 42.5 Gm Cream.appl 1 Speedy VG 2X WEEK Q FRI, Endocet 10-325 Mg Tablet (Oxycodone Hcl/Acetaminophen) 1 Each Tablet 1 Each PO PRN Q6HRS PRN Vitamin B-12 (Cyanocobalamin (Vitamin B-12)) 1,000 Mcg Tablet 1,000 Mcg PO DAILY Maalox Advanced Suspension (Mag Hydrox/Aluminum Hyd/Simeth) 355 Ml Oral.susp 15 Ml PO PRN AFTMEALHC PRN Analgesic [place] (Methyl Salicylate/Menthol) 28 Gm Oint...g. 1 Speedy TP PRN QID PRN Risperidone 1 Mg Tablet 1.5 Mg PO 1700 Refresh Classic Eye Drops (Polyvinyl Alcohol/Povidone/Pf) 1 Each Droperette 1 Each OU TID PRN Trazodone Hcl 50 Mg Tablet 100 Mg PO DAILYWSUP Norvasc (Amlodipine Besylate) 5 Mg Tablet 10 Mg PO DAILY Miralax (Polyethylene Glycol 3350) 17 Gm Powd.pack 17 Gm PO DAILY Milk Of Magnesia (Magnesium Hydroxide) 2,400 Mg/10 Ml Oral.susp 2,400 Mg PO PRN DAILY PRN Tylenol (Acetaminophen) 325 Mg Tablet 650 Mg PO PRN Q6HRS PRN I have reviewed the current psychotropics carefully including drug interactions. Risk benefit ratio favors no change other than as noted in my dictated progress note. 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
--- NOTE | 2018-07-05 23:50 | PN ---
DATE: 07/04/2018 PSYCHIATRIC PROGRESS NOTE This late entry 07/04/2018 covers elements not covered in my initial note. SUBJECTIVE: I met with the patient in the evening. The patient slept 8-1/2 hours previous night. She remains somewhat withdrawn, spends much time in her room, but very appropriate and psychotic symptoms seem to have resolved. REVIEW OF SYSTEMS: Positive for some tiredness. No CV, , pulmonary, eye, ENT system symptoms on review. MENTAL STATUS EXAM: The patient is reasonably oriented. Speech is coherent, abstraction fair, computation reasonable, language function intact, attention span short. Mood and affect, lability is much improved. LABORATORY DATA: Reviewed. IMPRESSION: Unchanged from initial note. PLAN: No change from initial note. MAN Rox WATT MD DR: SANCHEZ/fredrick JOB#: [id number] / [id number]
--- NOTE | 2018-07-05 23:51 | PN ---
DATE: 07/03/2018 PSYCHIATRIC PROGRESS NOTE This late entry 07/03/2018 covers elements not covered in my initial note. SUBJECTIVE: I met with the patient at length in her room evening of 07/03/2018. The patient slept 8 hours previous evening. She has been compliant with medications, somewhat withdrawn, but not psychotic and actually quite appropriate. [place] level is 0.6 despite being slightly low, clinically adequate for now. REVIEW OF SYSTEMS: No CV, , pulmonary, eye system symptoms on review. Reliability fair. MENTAL STATUS EXAM: Reasonably oriented. Speech has some latency, coherent, at times a little pressured. Abstraction fair, computation impaired, language function intact, attention span short. Mood and affect slightly withdrawn, but improved. No suicidal or homicidal ideation. LABORATORY DATA: Reviewed. IMPRESSION: Bipolar 1 disorder, mixed with psychotic features, in partial remission; bipolar 1 disorder, manic with psychotic features, in partial remission. Rest unchanged. PLAN: No change from initial note. MAN Rox WATT MD DR: SANCHEZ/fredrick JOB#: [id number] / [id number]
[2018-07-06] MEDS: LEVOTHYROXINE 75 MCG TABLET PO SCH (05:30)
[2018-07-06 06:19] VITALS: BP 152/83
[2018-07-06 07:12] LABS: BASO % 1 % (0-3); EOS # 0.3 x10^3/uL (0.0-0.7); EOS % 5 % (0-3); HEMOGLOBIN 12.7 g/dL (12.0-15.5); LYMPH # 1.6 x10^3/uL (1.0-4.8); LYMPH % 28 % (24-48); MEAN CORPUSCULAR HEMOGLOBIN 29 pg (25-35); MEAN CORPUSCULAR HGB CONC 33 g/dL (31-37); MEAN CORPUSCULAR VOLUME 87 fL (79-100); MONO # 0.7 x10^3/uL (0.0-1.1); MONO % 12 % (0-9); NEUT # 3.1 x10^3uL (1.8-7.7); NEUT % 55 % (31-73); PLATELET COUNT 192 x10^3/uL (140-400); RED BLOOD COUNT 4.38 x10^6/uL (3.50-5.40); RED CELL DISTRIBUTION WIDTH 16.5 % (11.5-14.5); WHITE BLOOD COUNT 5.7 x10^3/uL (4.0-11.0)
[2018-07-06 07:27] LABS: ALBUMIN 2.9 g/dL (3.4-5.0); ALBUMIN/GLOBULIN RATIO 0.8 (1.0-1.7); CALCIUM 9.7 mg/dL (8.5-10.1); CREATININE 0.9 mg/dL (0.6-1.0); GFR 62.1; POTASSIUM 4.6 mmol/L (3.5-5.1); TOTAL BILIRUBIN 0.3 mg/dL (0.2-1.0); TOTAL PROTEIN 6.7 g/dL (6.4-8.2)
[2018-07-06] MEDS: prednisoLONE ACETATE 1% OPHTH SUSPENSION 5ML BOTTLE. OD SCH (08:00)
[2018-07-06] MEDS: LITHIUM CARBONATE 300 MG TABLET PO SCH (08:00)
[2018-07-06] MEDS: FUROSEMIDE 20 MG TABLET PO SCH (08:00)
[2018-07-06] MEDS: POLYETHYLENE GLYCOL 3350 17 GM PACKET. PO SCH (08:01)
[2018-07-06] MEDS: amLODIPine BESYLATE 5 MG TABLET PO SCH (08:02)
[2018-07-06] MEDS: CYANOCOBALAMIN (VITAMIN B-12) 1,000 MCG TABLET. PO SCH (08:02)
--- NOTE | 2018-07-06 10:23 | NUR ---
Pt has been calm, cooperative, compliant. No agitation or aggression. She is able to focus on tasks and is med compliant. Denies hallucinations. No delusions noted. She is withdrawn to her room but comes out for meals.
[2018-07-06 16:25] VITALS: BP 118/81
[2018-07-06] MEDS: cloZAPine 25 MG TABLET PO SCH (19:57)
[2018-07-06] MEDS: cloZAPine 100 MG TABLET PO SCH (19:57)
[2018-07-06] MEDS: DIVALPROEX ER 500 MG TAB.ER.24H PO SCH (19:57)
[2018-07-06] MEDS: ATORVASTATIN CALCIUM 20 MG TABLET PO SCH (19:58)
[2018-07-06] MEDS: ESTRADIOL 0.01% VAGINAL CREAM 42.5GM TUBE. VG SCH (19:58)
[2018-07-06] MEDS: MIRTAZAPINE 7.5 MG TABLET. PO SCH (19:58)
[2018-07-06] MEDS: LITHIUM CITRATE PO SCH (19:58)
--- NOTE | 2018-07-06 22:28 | PDOC ---
Exam Note: Julian Note: Please also refer to the separate dictated note~for this date of service dictated separately.~Patient seen individually. Discussed the patient with Nursing staff reviewed the chart.~Reviewed interim history and current functioning. Reviewed vital signs,~Labs/ Radiology~and current medications noted below. Continue current treatment with the changes noted in the dictated addendum note Assessment: Vital Signs: Vital Signs Date Time Temp Pulse Resp B/P (MAP) Pulse Ox O2 Delivery O2 Flow Rate FiO2 07/06/18 16:25 99.2 44 16 118/81 (93) 95 07/03/18 16:54 Room Air I&O Intake and Output 07/06/18 07:00 Intake Total 1200 ml Balance 1200 ml Intake Oral 1200 ml Labs: Laboratory Tests Test 07/06/18 06:50 White Blood Count 5.7 x10^3/uL (4.0-11.0) Red Blood Count 4.38 x10^6/uL (3.50-5.40) Hemoglobin 12.7 g/dL (12.0-15.5) Hematocrit 38.0 % (36.0-47.0) Mean Corpuscular Volume 87 fL (79-100) Mean Corpuscular Hemoglobin 29 pg (25-35) Mean Corpuscular Hemoglobin Concent 33 g/dL (31-37) Red Cell Distribution Width 16.5 % (11.5-14.5) H Platelet Count 192 x10^3/uL (140-400) Neutrophils (%) (Auto) 55 % (31-73) Lymphocytes (%) (Auto) 28 % (24-48) Monocytes (%) (Auto) 12 % (0-9) H Eosinophils (%) (Auto) 5 % (0-3) H Basophils (%) (Auto) 1 % (0-3) Neutrophils # (Auto) 3.1 x10^3uL (1.8-7.7) Lymphocytes # (Auto) 1.6 x10^3/uL (1.0-4.8) Monocytes # (Auto) 0.7 x10^3/uL (0.0-1.1) Eosinophils # (Auto) 0.3 x10^3/uL (0.0-0.7) Basophils # (Auto) 0.0 x10^3/uL (0.0-0.2) Sodium Level 141 mmol/L (136-145) Potassium Level 4.6 mmol/L (3.5-5.1) Chloride Level 106 mmol/L (98-107) Carbon Dioxide Level 30 mmol/L (21-32) Anion Gap 5 (6-14) L Blood Urea Nitrogen 16 mg/dL (7-20) Creatinine 0.9 mg/dL (0.6-1.0) Estimated GFR (Cockcroft-Gault) 62.1 BUN/Creatinine Ratio 18 (6-20) Glucose Level 96 mg/dL (70-99) Calcium Level 9.7 mg/dL (8.5-10.1) Total Bilirubin 0.3 mg/dL (0.2-1.0) Aspartate Amino Transferase (AST) 15 U/L (15-37) Alanine Aminotransferase (ALT) 9 U/L (14-59) L Alkaline Phosphatase 96 U/L (46-116) Total Protein 6.7 g/dL (6.4-8.2) Albumin 2.9 g/dL (3.4-5.0) L Albumin/Globulin Ratio 0.8 (1.0-1.7) L Current Medications: Meds: Current Medications Acetaminophen (Tylenol) 650 mg PRN Q6HRS PRN PO PAIN / TEMP Last administered on 06/23/18 05:51; Start 06/06/18 at 04:15 Multi-Ingredient Ointment (Analgesic [place]) 1 speedy PRN QID PRN TP MUSCLE PAIN Last administered on 06/07/18 22:53; Start 06/06/18 at 04:15 Al Hydroxide/Mg Hydroxide (Mylanta Plus Xs) 15 ml PRN AFTMEALHC PRN PO DYSPEPSIA; Start 06/06/18 at 04:15 Magnesium Hydroxide (Milk Of Magnesia) 2,400 mg PRN QHS PRN PO CONSTIPATION; Start 06/06/18 at 04:15 Amlodipine Besylate (Norvasc) 5 mg DAILY PO Last administered on 07/06/18 08: 02; Start 06/06/18 at 09:00 Atorvastatin Calcium (Lipitor) 20 mg QHS PO Last administered on 07/06/18 19: 58; Start 06/06/18 at 21:00 Clozapine (Clozaril) 100 mg [id number] PO Last administered on 06/15/18 07:44; Start 06/06/18 at 09:00; Stop 06/15/18 at 18:36; Status DC Clozapine (Clozaril) 50 mg [id number] PO Last administered on 06/15/18 07:44; Start 06/06/18 at 09:00; Stop 06/15/18 at 18:36; Status DC Cyanocobalamin (Vitamin B-12) 1,000 mcg DAILY PO Last administered on 08:02; Start 06/06/18 at 09:00 Divalproex Sodium (Depakote Er) 1,000 mg QHS PO Last administered on 07/06/18 19:57; Start 06/06/18 at 21:00 Vitamin D (Vitamin D3) 50,000 unit WEEKLY PO Last administered on 07/05/18 08: 13; Start 06/07/18 at 09:00 Estradiol (Estrace) 1 speedy QMTH VG Last administered on 06/08/18 15:41; Start 06/08/18 at 16:00; Stop 06/08/18 at 21:19; Status DC Furosemide (Lasix) 20 mg DAILY PO Last administered on 07/06/18 08:00; Start 06/06/18 at 09:00 Levothyroxine Sodium (Synthroid) 75 mcg DAILY06 PO Last administered on 05:30; Start 06/06/18 at 06:00 Melatonin 6 mg PRN QHS PRN PO INSOMNIA Last administered on 06/13/18 22:23; Start 06/06/18 at 04:30 Magnesium Hydroxide (Milk Of Magnesia) 2,400 mg PRN DAILY PRN PO CONSTIPATION; Start 06/06/18 at 04:30; Status UNV Polyethylene Glycol (miraLAX) 17 gm DAILY PO Last administered on 07/06/18 08: 01; Start 06/06/18 at 09:00 Prednisolone Acetate (Pred Forte) 1 drop DAILY OD Last administered on 08:00; Start 06/06/18 at 09:00 Artificial Tears (Refresh Classic) 1 drop TID PRN PRN OU DRY EYE; Start at 04:30 Mirtazapine (Remeron) 7.5 mg QHS PO Last administered on 2/18/19at 19:58; Start 06/06/18 at 21:00 Trazodone HCl (Desyrel) 100 mg PRN QHS PRN PO INSOMNIA, MAY REPEAT X3 Last administered on 06/23/18at 20:10; Start 06/06/18 at 19:00 Olanzapine (ZyPREXA ZYDIS) 5 mg PRN Q2HR PRN PO PSYCHOSIS Last administered on 06/17/18at 22:09; Start 06/07/18 at 14:00 Haloperidol (Haldol) 5 mg HS PO ; Start 06/07/18 at 21:00; Stop 06/07/18 at 21: 00; Status DC Haloperidol Lactate (Haldol) 5 mg DAILY IM Last administered on 06/09/18at 07:51 ; Start 06/07/18 at 19:15; Stop 06/09/18 at 09:41; Status DC Estradiol (Estrace) 1 speedy QMTH VG ; Start 06/11/18 at 21:00; Stop 06/18/18 at 11 :41; Status DC Haloperidol Lactate (Haldol) 5 mg 1X ONCE IM Last administered on 06/09/18at 09 :43; Start 06/09/18 at 09:45; Stop 06/09/18 at 09:46; Status DC Haloperidol Lactate (Haldol) 10 mg DAILY IM Last administered on 06/14/18at 08: 40; Start 06/10/18 at 09:00; Stop 06/14/18 at 13:06; Status DC Hydroxyzine HCl (Atarax) 50 mg 1X ONCE PO Last administered on 06/09/18at 17:26 ; Start 06/09/18 at 17:15; Stop 06/09/18 at 17:24; Status DC Hydroxyzine HCl (Atarax) 50 mg 1X ONCE PO Last administered on 06/09/18at 18:29 ; Start 06/09/18 at 18:25; Stop 06/09/18 at 18:26; Status DC Benztropine Mesylate (Cogentin) 1 mg QHS PO Last administered on 06/21/18at 21:57 ; Start 06/10/18 at 21:00; Stop 06/22/18 at 16:50; Status DC Lena Carbonate 300 mg HS PO Last administered on 06/13/18at 19:20; Start at 21:00; Stop 06/14/18 at 13:06; Status DC Hydroxyzine HCl (Atarax) 50 mg PRN Q2HR PRN PO SEDATION Last administered on 01:30; Start 06/11/18 at 15:00 Trazodone HCl (Desyrel) 100 mg PRN 1X PRN PO insomnia Last administered on 06/12 04:16; Start 06/12/18 at 03:15 Lorazepam (Ativan Intensol) 0.5 mg 1X ONCE SL Last administered on 06/13/18 21:51; Start 06/13/18 at 18:15; Stop 06/13/18 at 18:16; Status DC Lorazepam (Ativan) 1 mg DAILY IM Last administered on 06/23/18 08:16; Start at 09:50; Stop 06/24/18 at 15:40; Status DC Haloperidol Lactate (Haldol) 5 mg DAILY IM Last administered on 06/16/18 09:54 ; Start 06/15/18 at 09:00; Stop 06/18/18 at 10:45; Status DC Lena Carbonate 300 mg BID PO Last administered on 06/18/18 08:14; Start at 21:00; Stop 06/18/18 at 15:03; Status DC Clozapine (Clozaril) 300 mg DAILY PO Last administered on 06/27/18 08:13; Start 06/16/18 at 09:00; Stop 06/28/18 at 00:33; Status DC Clozapine (Clozaril) 25 mg DAILY PO Last administered on 06/27/18 08:13; Start 06/16/18 at 09:00; Stop 06/28/18 at 00:33; Status DC Estradiol (Estrace) 1 speedy MoTh VG Last administered on 06/18/18 20:05; Start 06/18/18 at 21:00 Lena Carbonate 300 mg DAILY PO Last administered on 07/06/18 08:00; Start 06/19/18 at 09:00 Lena Citrate 5.3 meq QHS PO Last administered on 07/06/18 19:58; Start at 21:00 Levothyroxine Sodium (Synthroid) 75 mcg 1X ONCE PO Last administered on 2/1/ 19at 07:53; Start 06/19/18 at 07:00; Stop 06/19/18 at 07:01; Status DC Benztropine Mesylate (Cogentin) 1.5 mg QHS PO Last administered on 06/24/18at 19: 58; Start 06/22/18 at 21:00; Stop 06/25/18 at 17:05; Status DC Benztropine Mesylate (Cogentin) 1 mg QHS PO Last administered on 07/02/18at 19: 43; Start 06/25/18 at 21:00; Stop 07/02/18 at 21:00; Status DC Clozapine (Clozaril) 300 mg HS PO Last administered on 07/06/18 19:57; Start 06/28/18 at 21:00 Clozapine (Clozaril) 25 mg HS PO Last administered on 07/06/18at 19:57; Start at 21:00 Benztropine Mesylate (Cogentin) 0.5 mg QHS PO Last administered on 07/03/18at 20 :59; Start 07/03/18 at 21:00; Stop 07/04/18 at 20:59; Status DC Active Scripts Active Reported Hydroxyzine Hcl 10 Mg Tablet 10 Mg PO PRN Q2HR PRN Clozapine 100 Mg Tablet 1 Tab PO 1700 Remeron (Mirtazapine) 15 Mg Tablet 1 Tab PO 1700 Depakote Er (Divalproex Sodium) 500 Mg Tab.er.24h 750 Mg PO 1700 Nystatin 15 Gm Powder 1 Speedy TP BID Lidocaine 1 Each Adh..patch 1 Each TP DAILY Lotrimin Af (Clotrimazole) 12 Gm Cream..g. 1 Speedy TP BID PRN Sorbitol (Sorbitol Solution) 1 Ml Solution 30 Ml PO PRN DAILY PRN Trazodone Hcl 50 Mg Tablet 100 Mg PO QHS PRN Elmer-128 (Sodium Chloride) 3.5 Gm Oint...g. 1 Speedy OP HS Lipitor (Atorvastatin Calcium) 20 Mg Tablet 20 Mg PO DAILYWSUP Levothyroxine Sodium 75 Mcg Tablet 75 Mcg PO DAILYAC Estrace (Estradiol) 42.5 Gm Cream.appl 1 Speedy VG 2X WEEK Q FRI, Endocet 10-325 Mg Tablet (Oxycodone Hcl/Acetaminophen) 1 Each Tablet 1 Each PO PRN Q6HRS PRN Vitamin B-12 (Cyanocobalamin (Vitamin B-12)) 1,000 Mcg Tablet 1,000 Mcg PO DAILY Maalox Advanced Suspension (Mag Hydrox/Aluminum Hyd/Simeth) 355 Ml Oral.susp 15 Ml PO PRN AFTMEALHC PRN Analgesic [place] (Methyl Salicylate/Menthol) 28 Gm Oint...g. 1 Speedy TP PRN QID PRN Risperidone 1 Mg Tablet 1.5 Mg PO 1700 Refresh Classic Eye Drops (Polyvinyl Alcohol/Povidone/Pf) 1 Each Droperette 1 Each OU TID PRN Trazodone Hcl 50 Mg Tablet 100 Mg PO DAILYWSUP Norvasc (Amlodipine Besylate) 5 Mg Tablet 10 Mg PO DAILY Miralax (Polyethylene Glycol 3350) 17 Gm Powd.pack 17 Gm PO DAILY Milk Of Magnesia (Magnesium Hydroxide) 2,400 Mg/10 Ml Oral.susp 2,400 Mg PO PRN DAILY PRN Tylenol (Acetaminophen) 325 Mg Tablet 650 Mg PO PRN Q6HRS PRN I have reviewed the current psychotropics carefully including drug interactions. Risk benefit ratio favors no change other than as noted in my dictated progress note. 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
--- NOTE | 2018-07-06 23:38 | NUR ---
Patient found in bed at shift change. Cooperative with assessment and medications. Nurse asked patient if she had been in bed all day and she stated yes, except for meals. Encouraged patient to spend more time out of room. She stated she would "try tomorrow". No delusions, hallucinations or manic behaviors noted at this time.
[2018-07-07 06:04] VITALS: BP 132/74
[2018-07-07] MEDS: LEVOTHYROXINE 75 MCG TABLET PO SCH (06:16)
[2018-07-07] MEDS: POLYETHYLENE GLYCOL 3350 17 GM PACKET. PO SCH (08:59)
[2018-07-07] MEDS: LITHIUM CARBONATE 300 MG TABLET PO SCH (09:00)
[2018-07-07] MEDS: amLODIPine BESYLATE 5 MG TABLET PO SCH (09:00)
[2018-07-07] MEDS: CYANOCOBALAMIN (VITAMIN B-12) 1,000 MCG TABLET. PO SCH (09:00)
[2018-07-07] MEDS: FUROSEMIDE 20 MG TABLET PO SCH (09:00)
[2018-07-07] MEDS: prednisoLONE ACETATE 1% OPHTH SUSPENSION 5ML BOTTLE. OD SCH (09:01)
[2018-07-07 16:31] VITALS: BP 119/80
[2018-07-07] MEDS: ATORVASTATIN CALCIUM 20 MG TABLET PO SCH (20:25)
[2018-07-07] MEDS: MIRTAZAPINE 7.5 MG TABLET. PO SCH (20:25)
[2018-07-07] MEDS: DIVALPROEX ER 500 MG TAB.ER.24H PO SCH (20:26)
[2018-07-07] MEDS: LITHIUM CITRATE PO SCH (20:31)
[2018-07-07] MEDS: cloZAPine 25 MG TABLET PO SCH (20:31)
[2018-07-07] MEDS: cloZAPine 100 MG TABLET PO SCH (20:31)
--- NOTE | 2018-07-07 22:17 | PN ---
DATE: 07/05/2018 PSYCHIATRIC PROGRESS NOTE This late entry of 07/05/2018 covers elements not covered in my initial note. SUBJECTIVE: I met with the patient in the evening at some length in her room. The patient slept 10 hours previous night. The patient remains somewhat withdrawn, but appropriate. REVIEW OF SYSTEMS: No CV, , pulmonary, eye, ENT system symptoms on review. Denies any drooling. MENTAL STATUS EXAM: Reasonably oriented. Speech is coherent, has some latency. Abstraction fair, computation impaired, language function intact, attention span short. Mood and affect is improved. LABORATORY DATA: Reviewed. IMPRESSION: Unchanged from initial note. PLAN: No change from initial note. MAN Rox WATT MD DR: SANCHEZ/fredrick JOB#: [id number] / [id number]
--- NOTE | 2018-07-07 22:44 | PDOC ---
Exam Note: Julian Note: Please also refer to the separate dictated note~for this date of service dictated separately.~Patient seen individually. Discussed the patient with Nursing staff reviewed the chart.~Reviewed interim history and current functioning. Reviewed vital signs,~Labs/ Radiology~and current medications noted below. Continue current treatment with the changes noted in the dictated addendum note Assessment: Vital Signs: Vital Signs Date Time Temp Pulse Resp B/P (MAP) Pulse Ox O2 Delivery O2 Flow Rate FiO2 07/07/18 16:31 98.1 94 19 119/80 (93) 97 Room Air I&O Intake and Output 07/07/18 07:00 Intake Total 1200 ml Balance 1200 ml Intake Oral 1200 ml Current Medications: Meds: Current Medications Acetaminophen (Tylenol) 650 mg PRN Q6HRS PRN PO PAIN / TEMP Last administered on 06/23/18at 05:51; Start 06/06/18 at 04:15 Multi-Ingredient Ointment (Analgesic [place]) 1 speedy PRN QID PRN TP MUSCLE PAIN Last administered on 06/07/18at 22:53; Start 06/06/18 at 04:15 Al Hydroxide/Mg Hydroxide (Mylanta Plus Xs) 15 ml PRN AFTMEALHC PRN PO DYSPEPSIA; Start 06/06/18 at 04:15 Magnesium Hydroxide (Milk Of Magnesia) 2,400 mg PRN QHS PRN PO CONSTIPATION; Start 06/06/18 at 04:15 Amlodipine Besylate (Norvasc) 5 mg DAILY PO Last administered on 07/07/18at 09: 00; Start 06/06/18 at 09:00 Atorvastatin Calcium (Lipitor) 20 mg QHS PO Last administered on 07/07/18at 20: 25; Start 06/06/18 at 21:00 Clozapine (Clozaril) 100 mg BID94 PO Last administered on 06/15/18at 07:44; Start 06/06/18 at 09:00; Stop 06/15/18 at 18:36; Status DC Clozapine (Clozaril) 50 mg BID94 PO Last administered on 06/15/18at 07:44; Start 06/06/18 at 09:00; Stop 06/15/18 at 18:36; Status DC Cyanocobalamin (Vitamin B-12) 1,000 mcg DAILY PO Last administered on 2/19/ 19at 09:00; Start 06/06/18 at 09:00 Divalproex Sodium (Depakote Er) 1,000 mg QHS PO Last administered on 07/07/18 20:26; Start 06/06/18 at 21:00 Vitamin D (Vitamin D3) 50,000 unit WEEKLY PO Last administered on 07/05/18 08: 13; Start 06/07/18 at 09:00 Estradiol (Estrace) 1 speedy QMTH VG Last administered on 06/08/18at 15:41; Start 06/08/18 at 16:00; Stop 06/08/18 at 21:19; Status DC Furosemide (Lasix) 20 mg DAILY PO Last administered on 07/07/18 09:00; Start 06/06/18 at 09:00 Levothyroxine Sodium (Synthroid) 75 mcg DAILY06 PO Last administered on 06:16; Start 06/06/18 at 06:00 Melatonin 6 mg PRN QHS PRN PO INSOMNIA Last administered on 06/13/18 22:23; Start 06/06/18 at 04:30 Magnesium Hydroxide (Milk Of Magnesia) 2,400 mg PRN DAILY PRN PO CONSTIPATION; Start 06/06/18 at 04:30; Status UNV Polyethylene Glycol (miraLAX) 17 gm DAILY PO Last administered on 07/07/18 08: 59; Start 06/06/18 at 09:00 Prednisolone Acetate (Pred Forte) 1 drop DAILY OD Last administered on 09:01; Start 06/06/18 at 09:00 Artificial Tears (Refresh Classic) 1 drop TID PRN PRN OU DRY EYE; Start at 04:30 Mirtazapine (Remeron) 7.5 mg QHS PO Last administered on 07/07/18 20:25; Start 06/06/18 at 21:00 Trazodone HCl (Desyrel) 100 mg PRN QHS PRN PO INSOMNIA, MAY REPEAT X3 Last administered on 06/23/18 20:10; Start 06/06/18 at 19:00 Olanzapine (ZyPREXA ZYDIS) 5 mg PRN Q2HR PRN PO PSYCHOSIS Last administered on 06/17/18 22:09; Start 06/07/18 at 14:00 Haloperidol (Haldol) 5 mg HS PO ; Start 06/07/18 at 21:00; Stop 06/07/18 at 21: 00; Status DC Haloperidol Lactate (Haldol) 5 mg DAILY IM Last administered on 06/09/18at 07:51 ; Start 06/07/18 at 19:15; Stop 06/09/18 at 09:41; Status DC Estradiol (Estrace) 1 speedy QMTH VG ; Start 06/11/18 at 21:00; Stop 06/18/18 at 11 :41; Status DC Haloperidol Lactate (Haldol) 5 mg 1X ONCE IM Last administered on 06/09/18at 09 :43; Start 06/09/18 at 09:45; Stop 06/09/18 at 09:46; Status DC Haloperidol Lactate (Haldol) 10 mg DAILY IM Last administered on 06/14/18at 08: 40; Start 06/10/18 at 09:00; Stop 06/14/18 at 13:06; Status DC Hydroxyzine HCl (Atarax) 50 mg 1X ONCE PO Last administered on 06/09/18at 17:26 ; Start 06/09/18 at 17:15; Stop 06/09/18 at 17:24; Status DC Hydroxyzine HCl (Atarax) 50 mg 1X ONCE PO Last administered on 06/09/18at 18:29 ; Start 06/09/18 at 18:25; Stop 06/09/18 at 18:26; Status DC Benztropine Mesylate (Cogentin) 1 mg QHS PO Last administered on 06/21/18at 21:57 ; Start 06/10/18 at 21:00; Stop 06/22/18 at 16:50; Status DC [place] Carbonate 300 mg HS PO Last administered on 06/13/18at 19:20; Start at 21:00; Stop 06/14/18 at 13:06; Status DC Hydroxyzine HCl (Atarax) 50 mg PRN Q2HR PRN PO SEDATION Last administered on 06/20/18at 01:30; Start 06/11/18 at 15:00 Trazodone HCl (Desyrel) 100 mg PRN 1X PRN PO insomnia Last administered on 06/12at 04:16; Start 06/12/18 at 03:15 Lorazepam (Ativan Intensol) 0.5 mg 1X ONCE SL Last administered on 06/13/18 21:51; Start 06/13/18 at 18:15; Stop 06/13/18 at 18:16; Status DC Lorazepam (Ativan) 1 mg DAILY IM Last administered on 06/23/18 08:16; Start at 09:50; Stop 06/24/18 at 15:40; Status DC Haloperidol Lactate (Haldol) 5 mg DAILY IM Last administered on 06/16/18 09:54 ; Start 06/15/18 at 09:00; Stop 06/18/18 at 10:45; Status DC [place] Carbonate 300 mg BID PO Last administered on 06/18/18 08:14; Start at 21:00; Stop 06/18/18 at 15:03; Status DC Clozapine (Clozaril) 300 mg DAILY PO Last administered on 06/27/18 08:13; Start 06/16/18 at 09:00; Stop 06/28/18 at 00:33; Status DC Clozapine (Clozaril) 25 mg DAILY PO Last administered on 06/27/18 08:13; Start 06/16/18 at 09:00; Stop 06/28/18 at 00:33; Status DC Estradiol (Estrace) 1 speedy MoTh VG Last administered on 06/18/18at 20:05; Start 06/18/18 at 21:00 [place] Carbonate 300 mg DAILY PO Last administered on 07/07/18 09:00; Start 06/19/18 at 09:00 [place] Citrate 5.3 meq QHS PO Last administered on 07/07/18at 20:31; Start at 21:00 Levothyroxine Sodium (Synthroid) 75 mcg 1X ONCE PO Last administered on 07:53; Start 06/19/18 at 07:00; Stop 06/19/18 at 07:01; Status DC Benztropine Mesylate (Cogentin) 1.5 mg QHS PO Last administered on 06/24/18 19: 58; Start 06/22/18 at 21:00; Stop 06/25/18 at 17:05; Status DC Benztropine Mesylate (Cogentin) 1 mg QHS PO Last administered on 2/14/19at 19: 43; Start 06/25/18 at 21:00; Stop 07/02/18 at 21:00; Status DC Clozapine (Clozaril) 300 mg HS PO Last administered on 07/07/18at 20:31; Start 06/28/18 at 21:00 Clozapine (Clozaril) 25 mg HS PO Last administered on 07/07/18at 20:31; Start at 21:00 Benztropine Mesylate (Cogentin) 0.5 mg QHS PO Last administered on 07/03/18at 20 :59; Start 07/03/18 at 21:00; Stop 07/04/18 at 20:59; Status DC Active Scripts Active Reported Hydroxyzine Hcl 10 Mg Tablet 10 Mg PO PRN Q2HR PRN Clozapine 100 Mg Tablet 1 Tab PO 1700 Remeron (Mirtazapine) 15 Mg Tablet 1 Tab PO 1700 Depakote Er (Divalproex Sodium) 500 Mg Tab.er.24h 750 Mg PO 1700 Nystatin 15 Gm Powder 1 Speedy TP BID Lidocaine 1 Each Adh..patch 1 Each TP DAILY Lotrimin Af (Clotrimazole) 12 Gm Cream..g. 1 Speedy TP BID PRN Sorbitol (Sorbitol Solution) 1 Ml Solution 30 Ml PO PRN DAILY PRN Trazodone Hcl 50 Mg Tablet 100 Mg PO QHS PRN Elmer-128 (Sodium Chloride) 3.5 Gm Oint...g. 1 Speedy OP HS Lipitor (Atorvastatin Calcium) 20 Mg Tablet 20 Mg PO DAILYWSUP Levothyroxine Sodium 75 Mcg Tablet 75 Mcg PO DAILYAC Estrace (Estradiol) 42.5 Gm Cream.appl 1 Speedy VG 2X WEEK Q MON, Endocet 10-325 Mg Tablet (Oxycodone Hcl/Acetaminophen) 1 Each Tablet 1 Each PO PRN Q6HRS PRN Vitamin B-12 (Cyanocobalamin (Vitamin B-12)) 1,000 Mcg Tablet 1,000 Mcg PO DAILY Maalox Advanced Suspension (Mag Hydrox/Aluminum Hyd/Simeth) 355 Ml Oral.susp 15 Ml PO PRN AFTMEALHC PRN Analgesic [place] (Methyl Salicylate/Menthol) 28 Gm Oint...g. 1 Speedy TP PRN QID PRN Risperidone 1 Mg Tablet 1.5 Mg PO 1700 Refresh Classic Eye Drops (Polyvinyl Alcohol/Povidone/Pf) 1 Each Droperette 1 Each OU TID PRN Trazodone Hcl 50 Mg Tablet 100 Mg PO DAILYWSUP Norvasc (Amlodipine Besylate) 5 Mg Tablet 10 Mg PO DAILY Miralax (Polyethylene Glycol 3350) 17 Gm Powd.pack 17 Gm PO DAILY Milk Of Magnesia (Magnesium Hydroxide) 2,400 Mg/10 Ml Oral.susp 2,400 Mg PO PRN DAILY PRN Tylenol (Acetaminophen) 325 Mg Tablet 650 Mg PO PRN Q6HRS PRN I have reviewed the current psychotropics carefully including drug interactions. Risk benefit ratio favors no change other than as noted in my dictated progress note. 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
--- NOTE | 2018-07-08 00:01 | PN ---
DATE: 07/06/2018 PSYCHIATRIC PROGRESS NOTE This late entry 07/06/2018 covers elements not covered in my initial note. SUBJECTIVE: I met with the patient in the evening. The patient slept 7-1/4 hours previous night. She remains somewhat withdrawn, but appropriate, not agitated, aggressive. REVIEW OF SYSTEMS: No CV, , pulmonary, eye, ENT system symptoms on review. Absolute neutrophil count is unremarkable. MENTAL STATUS EXAM: Reasonably oriented. Speech is coherent, less pressured. Abstraction fair, computation impaired, language function intact, attention span short. Mood and affect is improved. LABORATORY DATA: Reviewed. IMPRESSION: Unchanged from initial note. PLAN: No change from initial note. MAN Rox WATT MD DR: SANCHEZ/fredrick JOB#: [id number] / [id number]
--- NOTE | 2018-07-08 00:35 | NUR ---
Nursing Note The patient was located in her room for her assessment and medication pass. The patient was appropriate with interactions with this nurse and took her medication whole. The patient is currently sleeping in her room.
[2018-07-08] MEDS: LEVOTHYROXINE 75 MCG TABLET PO SCH (05:31)
[2018-07-08 05:51] VITALS: BP 114/75
[2018-07-08] MEDS: LITHIUM CARBONATE 300 MG TABLET PO SCH (07:54)
[2018-07-08] MEDS: CYANOCOBALAMIN (VITAMIN B-12) 1,000 MCG TABLET. PO SCH (07:55)
[2018-07-08] MEDS: POLYETHYLENE GLYCOL 3350 17 GM PACKET. PO SCH (07:55)
[2018-07-08] MEDS: FUROSEMIDE 20 MG TABLET PO SCH (07:55)
[2018-07-08] MEDS: amLODIPine BESYLATE 5 MG TABLET PO SCH (07:55)
[2018-07-08] MEDS: prednisoLONE ACETATE 1% OPHTH SUSPENSION 5ML BOTTLE. OD SCH (07:57)
--- NOTE | 2018-07-08 10:28 | NUR ---
Nursing Note: Pt in dining room at the time of assessment and med pass. Pt calm, cooperative, compliant with medications.
--- NOTE | 2018-07-08 13:04 | NUR ---
WEEKLY NOTE: Pt continues to do well on the unit; she is eating 100% and sleeping 8 hours. Pt is withdrawn from peers and does not participate in group activities. Pt did soil her bed last night (incontinent of bowel and urine), which pt has not done before. Pt is not able to discharge yet, as SW initiated the level II screen; according to the state, this must be completed before pt can discharge. SW will [facility] to [facility] to see if they have received the referral as of yet. It has been 2 weeks since the assessment has been sent.
--- NOTE | 2018-07-08 14:00 | NUR ---
WEEKLY ACTIVITY THERAPY NOTE Date of Admission: 06/06/2018 Date of AT Assessment: 06/07/2018 Goal aimed: to increase attention span and engagement Initial Goal: Pt. will participate in all Activity Therapy groups offered (Pt. set goal for self) Goal changed 06/18/2018- Pt. will participate in at least three (Activity Therapy) groups or individual activities per week. Weekly progress towards goal: did not achieve Group participation level: zero Behaviors observed: in room for every group this week Plan: no change to goal
[2018-07-08 15:23] VITALS: BP 133/80
--- NOTE | 2018-07-08 18:10 | NUR ---
Nursing Note: Pt's visited. Went well.
[2018-07-08 18:59] LABS: CALCIUM 9.5 mg/dL (8.5-10.1); POTASSIUM 4.4 mmol/L (3.5-5.1)
[2018-07-08] MEDS: DIVALPROEX ER 500 MG TAB.ER.24H PO SCH (20:12)
[2018-07-08] MEDS: MIRTAZAPINE 7.5 MG TABLET. PO SCH (20:12)
[2018-07-08] MEDS: ATORVASTATIN CALCIUM 20 MG TABLET PO SCH (20:12)
[2018-07-08] MEDS: cloZAPine 100 MG TABLET PO SCH (20:27)
[2018-07-08] MEDS: cloZAPine 25 MG TABLET PO SCH (20:27)
[2018-07-08] MEDS: LITHIUM CITRATE PO SCH (20:28)
[2018-07-08] MEDS ORDERED: cloZAPine 100 MG TABLET PO SCH (21:00)
--- NOTE | 2018-07-08 22:21 | PDOC ---
Exam Note: Julian Note: Please also refer to the separate dictated note~for this date of service dictated separately.~Patient seen individually. Discussed the patient with Nursing staff reviewed the chart.~Reviewed interim history and current functioning. Reviewed vital signs,~Labs/ Radiology~and current medications noted below. Continue current treatment with the changes noted in the dictated addendum note Assessment: Vital Signs: Vital Signs Date Time Temp Pulse Resp B/P (MAP) Pulse Ox O2 Delivery O2 Flow Rate FiO2 07/08/18 15:23 98.4 98 16 133/80 (97) 99 07/08/18 05:51 Room Air I&O Intake and Output 07/08/18 07:00 Intake Total 1800 ml Balance 1800 ml Intake Oral 1800 ml Labs: Laboratory Tests Test 07/08/18 18:40 Sodium Level 137 mmol/L (136-145) Potassium Level 4.4 mmol/L (3.5-5.1) Chloride Level 102 mmol/L (98-107) Carbon Dioxide Level 28 mmol/L (21-32) Anion Gap 7 (6-14) Blood Urea Nitrogen 19 mg/dL (7-20) Creatinine 1.0 mg/dL (0.6-1.0) Estimated GFR (Cockcroft-Gault) 55.0 Glucose Level 134 mg/dL (70-99) H Calcium Level 9.5 mg/dL (8.5-10.1) Current Medications: Meds: Current Medications Acetaminophen (Tylenol) 650 mg PRN Q6HRS PRN PO PAIN / TEMP Last administered on 06/23/18at 05:51; Start 06/06/18 at 04:15 Multi-Ingredient Ointment (Analgesic [place]) 1 speedy PRN QID PRN TP MUSCLE PAIN Last administered on 06/07/18at 22:53; Start 06/06/18 at 04:15 Al Hydroxide/Mg Hydroxide (Mylanta Plus Xs) 15 ml PRN AFTMEALHC PRN PO DYSPEPSIA; Start 06/06/18 at 04:15 Magnesium Hydroxide (Milk Of Magnesia) 2,400 mg PRN QHS PRN PO CONSTIPATION; Start 06/06/18 at 04:15 Amlodipine Besylate (Norvasc) 5 mg DAILY PO Last administered on 07/08/18at 07: 55; Start 06/06/18 at 09:00 Atorvastatin Calcium (Lipitor) 20 mg QHS PO Last administered on 07/08/18 20: 12; Start 06/06/18 at 21:00 Clozapine (Clozaril) 100 mg BID94 PO Last administered on 06/15/18 07:44; Start 06/06/18 at 09:00; Stop 06/15/18 at 18:36; Status DC Clozapine (Clozaril) 50 mg [id number] PO Last administered on 06/15/18 07:44; Start 06/06/18 at 09:00; Stop 06/15/18 at 18:36; Status DC Cyanocobalamin (Vitamin B-12) 1,000 mcg DAILY PO Last administered on 07:55; Start 06/06/18 at 09:00 Divalproex Sodium (Depakote Er) 1,000 mg QHS PO Last administered on 07/08/18 20:12; Start 06/06/18 at 21:00 Vitamin D (Vitamin D3) 50,000 unit WEEKLY PO Last administered on 07/05/18 08: 13; Start 06/07/18 at 09:00 Estradiol (Estrace) 1 speedy QMTH VG Last administered on 06/08/18at 15:41; Start 06/08/18 at 16:00; Stop 06/08/18 at 21:19; Status DC Furosemide (Lasix) 20 mg DAILY PO Last administered on 07/08/18 07:55; Start 06/06/18 at 09:00 Levothyroxine Sodium (Synthroid) 75 mcg DAILY06 PO Last administered on 05:31; Start 06/06/18 at 06:00 Melatonin 6 mg PRN QHS PRN PO INSOMNIA Last administered on 06/13/18at 22:23; Start 06/06/18 at 04:30 Magnesium Hydroxide (Milk Of Magnesia) 2,400 mg PRN DAILY PRN PO CONSTIPATION; Start 06/06/18 at 04:30; Status UNV Polyethylene Glycol (miraLAX) 17 gm DAILY PO Last administered on 07/08/18 07: 55; Start 06/06/18 at 09:00 Prednisolone Acetate (Pred Forte) 1 drop DAILY OD Last administered on 07:57; Start 06/06/18 at 09:00 Artificial Tears (Refresh Classic) 1 drop TID PRN PRN OU DRY EYE; Start at 04:30 Mirtazapine (Remeron) 7.5 mg QHS PO Last administered on 07/08/18at 20:12; Start 06/06/18 at 21:00 Trazodone HCl (Desyrel) 100 mg PRN QHS PRN PO INSOMNIA, MAY REPEAT X3 Last administered on 06/23/18at 20:10; Start 06/06/18 at 19:00 Olanzapine (ZyPREXA ZYDIS) 5 mg PRN Q2HR PRN PO PSYCHOSIS Last administered on 06/17/18 22:09; Start 06/07/18 at 14:00 Haloperidol (Haldol) 5 mg HS PO ; Start 06/07/18 at 21:00; Stop 06/07/18 at 21: 00; Status DC Haloperidol Lactate (Haldol) 5 mg DAILY IM Last administered on 06/09/18at 07:51 ; Start 06/07/18 at 19:15; Stop 06/09/18 at 09:41; Status DC Estradiol (Estrace) 1 speedy QMTH VG ; Start 06/11/18 at 21:00; Stop 06/18/18 at 11 :41; Status DC Haloperidol Lactate (Haldol) 5 mg 1X ONCE IM Last administered on 06/09/18at 09 :43; Start 06/09/18 at 09:45; Stop 06/09/18 at 09:46; Status DC Haloperidol Lactate (Haldol) 10 mg DAILY IM Last administered on 06/14/18at 08: 40; Start 06/10/18 at 09:00; Stop 06/14/18 at 13:06; Status DC Hydroxyzine HCl (Atarax) 50 mg 1X ONCE PO Last administered on 06/09/18at 17:26 ; Start 06/09/18 at 17:15; Stop 06/09/18 at 17:24; Status DC Hydroxyzine HCl (Atarax) 50 mg 1X ONCE PO Last administered on 06/09/18at 18:29 ; Start 06/09/18 at 18:25; Stop 06/09/18 at 18:26; Status DC Benztropine Mesylate (Cogentin) 1 mg QHS PO Last administered on 06/21/18at 21:57 ; Start 06/10/18 at 21:00; Stop 06/22/18 at 16:50; Status DC [place] Carbonate 300 mg HS PO Last administered on 06/13/18 19:20; Start at 21:00; Stop 06/14/18 at 13:06; Status DC Hydroxyzine HCl (Atarax) 50 mg PRN Q2HR PRN PO SEDATION Last administered on 01:30; Start 06/11/18 at 15:00 Trazodone HCl (Desyrel) 100 mg PRN 1X PRN PO insomnia Last administered on 06/12 04:16; Start 06/12/18 at 03:15 Lorazepam (Ativan Intensol) 0.5 mg 1X ONCE SL Last administered on 06/13/18 21:51; Start 06/13/18 at 18:15; Stop 06/13/18 at 18:16; Status DC Lorazepam (Ativan) 1 mg DAILY IM Last administered on 06/23/18 08:16; Start at 09:50; Stop 06/24/18 at 15:40; Status DC Haloperidol Lactate (Haldol) 5 mg DAILY IM Last administered on 06/16/18 09:54 ; Start 06/15/18 at 09:00; Stop 06/18/18 at 10:45; Status DC [place] Carbonate 300 mg BID PO Last administered on 06/18/18at 08:14; Start at 21:00; Stop 06/18/18 at 15:03; Status DC Clozapine (Clozaril) 300 mg DAILY PO Last administered on 06/27/18 08:13; Start 06/16/18 at 09:00; Stop 06/28/18 at 00:33; Status DC Clozapine (Clozaril) 25 mg DAILY PO Last administered on 06/27/18 08:13; Start 06/16/18 at 09:00; Stop 06/28/18 at 00:33; Status DC Estradiol (Estrace) 1 speedy MoTh VG Last administered on 06/18/18at 20:05; Start 06/18/18 at 21:00 [place] Carbonate 300 mg DAILY PO Last administered on 07/08/18at 07:54; Start 06/19/18 at 09:00 [place] Citrate 5.3 meq QHS PO Last administered on 07/08/18 20:28; Start at 21:00 Levothyroxine Sodium (Synthroid) 75 mcg 1X ONCE PO Last administered on 07:53; Start 06/19/18 at 07:00; Stop 06/19/18 at 07:01; Status DC Benztropine Mesylate (Cogentin) 1.5 mg QHS PO Last administered on 06/24/18 19: 58; Start 06/22/18 at 21:00; Stop 06/25/18 at 17:05; Status DC Benztropine Mesylate (Cogentin) 1 mg QHS PO Last administered on 07/02/18 19: 43; Start 06/25/18 at 21:00; Stop 07/02/18 at 21:00; Status DC Clozapine (Clozaril) 300 mg HS PO Last administered on 07/07/18 20:31; Start 06/28/18 at 21:00; Stop 07/08/18 at 15:05; Status DC Clozapine (Clozaril) 25 mg HS PO Last administered on 07/07/18 20:31; Start at 21:00; Stop 07/08/18 at 15:05; Status DC Benztropine Mesylate (Cogentin) 0.5 mg QHS PO Last administered on 07/03/18at 20 :59; Start 07/03/18 at 21:00; Stop 07/04/18 at 20:59; Status DC Clozapine (Clozaril) 300 mg BID PO ; Start 07/08/18 at 21:00; Stop 07/08/18 at 21:00; Status DC Clozapine (Clozaril) 300 mg HS PO Last administered on 07/08/18 20:27; Start 07/08/18 at 21:00 Clozapine (Clozaril) 50 mg HS PO Last administered on 07/08/18 20:27; Start at 21:00 Active Scripts Active Reported Hydroxyzine Hcl 10 Mg Tablet 10 Mg PO PRN Q2HR PRN Clozapine 100 Mg Tablet 1 Tab PO 1700 Remeron (Mirtazapine) 15 Mg Tablet 1 Tab PO 1700 Depakote Er (Divalproex Sodium) 500 Mg Tab.er.24h 750 Mg PO 1700 Nystatin 15 Gm Powder 1 Speedy TP BID Lidocaine 1 Each Adh..patch 1 Each TP DAILY Lotrimin Af (Clotrimazole) 12 Gm Cream..g. 1 Speedy TP BID PRN Sorbitol (Sorbitol Solution) 1 Ml Solution 30 Ml PO PRN DAILY PRN Trazodone Hcl 50 Mg Tablet 100 Mg PO QHS PRN Elmer-128 (Sodium Chloride) 3.5 Gm Oint...g. 1 Speedy OP HS Lipitor (Atorvastatin Calcium) 20 Mg Tablet 20 Mg PO DAILYWSUP Levothyroxine Sodium 75 Mcg Tablet 75 Mcg PO DAILYAC Estrace (Estradiol) 42.5 Gm Cream.appl 1 Speedy VG 2X WEEK Q FRI, URS Endocet 10-325 Mg Tablet (Oxycodone Hcl/Acetaminophen) 1 Each Tablet 1 Each PO PRN Q6HRS PRN Vitamin B-12 (Cyanocobalamin (Vitamin B-12)) 1,000 Mcg Tablet 1,000 Mcg PO DAILY Maalox Advanced Suspension (Mag Hydrox/Aluminum Hyd/Simeth) 355 Ml Oral.susp 15 Ml PO PRN AFTMEALHC PRN Analgesic [place] (Methyl Salicylate/Menthol) 28 Gm Oint...g. 1 Speedy TP PRN QID PRN Risperidone 1 Mg Tablet 1.5 Mg PO 1700 Refresh Classic Eye Drops (Polyvinyl Alcohol/Povidone/Pf) 1 Each Droperette 1 Each OU TID PRN Trazodone Hcl 50 Mg Tablet 100 Mg PO DAILYWSUP Norvasc (Amlodipine Besylate) 5 Mg Tablet 10 Mg PO DAILY Miralax (Polyethylene Glycol 3350) 17 Gm Powd.pack 17 Gm PO DAILY Milk Of Magnesia (Magnesium Hydroxide) 2,400 Mg/10 Ml Oral.susp 2,400 Mg PO PRN DAILY PRN Tylenol (Acetaminophen) 325 Mg Tablet 650 Mg PO PRN Q6HRS PRN I have reviewed the current psychotropics carefully including drug interactions. Risk benefit ratio favors no change other than as noted in my dictated progress note. 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
--- NOTE | 2018-07-08 22:23 | PN ---
DATE: 07/07/2018 PSYCHIATRIC PROGRESS NOTE This late entry 07/07/2018 covers elements not covered in my initial note. SUBJECTIVE: I met with the patient in the evening. The patient slept 7-1/2 hours previous night. I met with her in her room. She has been more appropriate on the unit, somewhat withdrawn, spends much time in her room. REVIEW OF SYSTEMS: No CV, , pulmonary, eye, ENT system symptoms on review. MENTAL STATUS EXAM: Reasonably oriented. Speech has some latency, at times a little pressured. Abstraction fair, computation impaired, language function intact, attention span short. Mood and affect less anxious and labile. LABORATORY DATA: Reviewed. IMPRESSION: Unchanged from initial note. PLAN: No change from initial note. MAN Rox WATT MD DR: SANCHEZ/fredrick JOB#: [id number] / [id number]
--- NOTE | 2018-07-08 22:28 | NUR ---
Nursing note The patient was located in her room for interview and medication pass. the patient was compliant with her medications and took them whole. The patient was appropriate with this nurse during all interactions. The patient is currently sleeping in her room.
[2018-07-09] MEDS: LEVOTHYROXINE 75 MCG TABLET PO SCH (06:08)
[2018-07-09 06:18] VITALS: BP 128/86
[2018-07-09] MEDS: POLYETHYLENE GLYCOL 3350 17 GM PACKET. PO SCH (08:13)
[2018-07-09] MEDS: FUROSEMIDE 20 MG TABLET PO SCH (08:14)
[2018-07-09] MEDS: CYANOCOBALAMIN (VITAMIN B-12) 1,000 MCG TABLET. PO SCH (08:14)
[2018-07-09] MEDS: LITHIUM CARBONATE 300 MG TABLET PO SCH (08:14)
[2018-07-09] MEDS: amLODIPine BESYLATE 5 MG TABLET PO SCH (08:14)
[2018-07-09] MEDS: prednisoLONE ACETATE 1% OPHTH SUSPENSION 5ML BOTTLE. OD SCH (08:16)
--- NOTE | 2018-07-09 10:32 | NUR ---
Patient was in dining room for breakfast, but then returned to bed immediately after. Compliant with medications, answered questions when asked. Talked about her husbands visit yesterday.
[2018-07-09 16:07] VITALS: BP 121/79
--- NOTE | 2018-07-09 17:00 | NUR ---
ROSALINE met with pt and pt Hardik, as this is his second visit with pt as he has been in isolation. Pt is currently remaining on the unit as she has not received her level II screening at the time. Once the level II screen is completed, pt will be able to discharge. At this time, ROSALINE would look towards [facility] for placement. SW will need to get with pt to inform him of pt Medicare days and have his sign the form on being able to bill pt [facility] for continued payment and stay.
[2018-07-09] MEDS: cloZAPine 25 MG TABLET PO SCH (20:56)
[2018-07-09] MEDS: LITHIUM CITRATE PO SCH (20:56)
[2018-07-09] MEDS: cloZAPine 100 MG TABLET PO SCH (20:56)
[2018-07-09] MEDS: MIRTAZAPINE 7.5 MG TABLET. PO SCH (20:56)
[2018-07-09] MEDS: ATORVASTATIN CALCIUM 20 MG TABLET PO SCH (20:56)
[2018-07-09] MEDS: DIVALPROEX ER 500 MG TAB.ER.24H PO SCH (20:56)
[2018-07-09] MEDS: ESTRADIOL 0.01% VAGINAL CREAM 42.5GM TUBE. VG SCH (20:59)
--- NOTE | 2018-07-09 22:18 | PDOC ---
Exam Note: Julian Note: Please also refer to the separate dictated note~for this date of service dictated separately.~Patient seen individually. Discussed the patient with Nursing staff reviewed the chart.~Reviewed interim history and current functioning. Reviewed vital signs,~Labs/ Radiology~and current medications noted below. Continue current treatment with the changes noted in the dictated addendum note Assessment: Vital Signs: Vital Signs Date Time Temp Pulse Resp B/P (MAP) Pulse Ox O2 Delivery O2 Flow Rate FiO2 07/09/18 16:07 98.6 101 20 121/79 (93) 99 07/08/18 05:51 Room Air I&O Intake and Output 07/09/18 07:00 Intake Total 1320 ml Balance 1320 ml Intake Oral 1320 ml # Bowel Movements 1 Current Medications: Meds: Current Medications Acetaminophen (Tylenol) 650 mg PRN Q6HRS PRN PO PAIN / TEMP Last administered on 06/23/18 05:51; Start 06/06/18 at 04:15 Multi-Ingredient Ointment (Analgesic [place]) 1 speedy PRN QID PRN TP MUSCLE PAIN Last administered on 06/07/18at 22:53; Start 06/06/18 at 04:15 Al Hydroxide/Mg Hydroxide (Mylanta Plus Xs) 15 ml PRN AFTMEALHC PRN PO DYSPEPSIA; Start 06/06/18 at 04:15 Magnesium Hydroxide (Milk Of Magnesia) 2,400 mg PRN QHS PRN PO CONSTIPATION; Start 06/06/18 at 04:15 Amlodipine Besylate (Norvasc) 5 mg DAILY PO Last administered on 07/09/18at 08: 14; Start 06/06/18 at 09:00 Atorvastatin Calcium (Lipitor) 20 mg QHS PO Last administered on 07/09/18at 20: 56; Start 06/06/18 at 21:00 Clozapine (Clozaril) 100 mg [id number] PO Last administered on 06/15/18at 07:44; Start 06/06/18 at 09:00; Stop 06/15/18 at 18:36; Status DC Clozapine (Clozaril) 50 mg BID94 PO Last administered on 06/15/18at 07:44; Start 06/06/18 at 09:00; Stop 06/15/18 at 18:36; Status DC Cyanocobalamin (Vitamin B-12) 1,000 mcg DAILY PO Last administered on 08:14; Start 06/06/18 at 09:00 Divalproex Sodium (Depakote Er) 1,000 mg QHS PO Last administered on 07/09/18 20:56; Start 06/06/18 at 21:00 Vitamin D (Vitamin D3) 50,000 unit WEEKLY PO Last administered on 07/05/18 08: 13; Start 06/07/18 at 09:00 Estradiol (Estrace) 1 speedy QMTH VG Last administered on 06/08/18 15:41; Start 06/08/18 at 16:00; Stop 06/08/18 at 21:19; Status DC Furosemide (Lasix) 20 mg DAILY PO Last administered on 07/09/18 08:14; Start 06/06/18 at 09:00 Levothyroxine Sodium (Synthroid) 75 mcg DAILY06 PO Last administered on 06:08; Start 06/06/18 at 06:00 Melatonin 6 mg PRN QHS PRN PO INSOMNIA Last administered on 06/13/18 22:23; Start 06/06/18 at 04:30 Magnesium Hydroxide (Milk Of Magnesia) 2,400 mg PRN DAILY PRN PO CONSTIPATION; Start 06/06/18 at 04:30; Status UNV Polyethylene Glycol (miraLAX) 17 gm DAILY PO Last administered on 07/09/18 08: 13; Start 06/06/18 at 09:00 Prednisolone Acetate (Pred Forte) 1 drop DAILY OD Last administered on 08:16; Start 06/06/18 at 09:00 Artificial Tears (Refresh Classic) 1 drop TID PRN PRN OU DRY EYE; Start at 04:30 Mirtazapine (Remeron) 7.5 mg QHS PO Last administered on 07/09/18 20:56; Start 06/06/18 at 21:00 Trazodone HCl (Desyrel) 100 mg PRN QHS PRN PO INSOMNIA, MAY REPEAT X3 Last administered on 06/23/18 20:10; Start 06/06/18 at 19:00 Olanzapine (ZyPREXA ZYDIS) 5 mg PRN Q2HR PRN PO PSYCHOSIS Last administered on 1/30/19at 22:09; Start 06/07/18 at 14:00 Haloperidol (Haldol) 5 mg HS PO ; Start 06/07/18 at 21:00; Stop 06/07/18 at 21: 00; Status DC Haloperidol Lactate (Haldol) 5 mg DAILY IM Last administered on 06/09/18at 07:51 ; Start 06/07/18 at 19:15; Stop 06/09/18 at 09:41; Status DC Estradiol (Estrace) 1 speedy QMTH VG ; Start 06/11/18 at 21:00; Stop 06/18/18 at 11 :41; Status DC Haloperidol Lactate (Haldol) 5 mg 1X ONCE IM Last administered on 06/09/18at 09 :43; Start 06/09/18 at 09:45; Stop 06/09/18 at 09:46; Status DC Haloperidol Lactate (Haldol) 10 mg DAILY IM Last administered on 06/14/18at 08: 40; Start 06/10/18 at 09:00; Stop 06/14/18 at 13:06; Status DC Hydroxyzine HCl (Atarax) 50 mg 1X ONCE PO Last administered on 06/09/18at 17:26 ; Start 06/09/18 at 17:15; Stop 06/09/18 at 17:24; Status DC Hydroxyzine HCl (Atarax) 50 mg 1X ONCE PO Last administered on 06/09/18at 18:29 ; Start 06/09/18 at 18:25; Stop 06/09/18 at 18:26; Status DC Benztropine Mesylate (Cogentin) 1 mg QHS PO Last administered on 06/21/18at 21:57 ; Start 06/10/18 at 21:00; Stop 06/22/18 at 16:50; Status DC [place] Carbonate 300 mg HS PO Last administered on 06/13/18 19:20; Start at 21:00; Stop 06/14/18 at 13:06; Status DC Hydroxyzine HCl (Atarax) 50 mg PRN Q2HR PRN PO SEDATION Last administered on 01:30; Start 06/11/18 at 15:00 Trazodone HCl (Desyrel) 100 mg PRN 1X PRN PO insomnia Last administered on 1/25 /19at 04:16; Start 06/12/18 at 03:15 Lorazepam (Ativan Intensol) 0.5 mg 1X ONCE SL Last administered on 06/13/18 21:51; Start 06/13/18 at 18:15; Stop 06/13/18 at 18:16; Status DC Lorazepam (Ativan) 1 mg DAILY IM Last administered on 06/23/18 08:16; Start at 09:50; Stop 06/24/18 at 15:40; Status DC Haloperidol Lactate (Haldol) 5 mg DAILY IM Last administered on 06/16/18 09:54 ; Start 06/15/18 at 09:00; Stop 06/18/18 at 10:45; Status DC [place] Carbonate 300 mg BID PO Last administered on 06/18/18 08:14; Start at 21:00; Stop 06/18/18 at 15:03; Status DC Clozapine (Clozaril) 300 mg DAILY PO Last administered on 06/27/18 08:13; Start 06/16/18 at 09:00; Stop 06/28/18 at 00:33; Status DC Clozapine (Clozaril) 25 mg DAILY PO Last administered on 06/27/18 08:13; Start 06/16/18 at 09:00; Stop 06/28/18 at 00:33; Status DC Estradiol (Estrace) 1 speedy MoTh VG Last administered on 06/18/18at 20:05; Start 06/18/18 at 21:00 [place] Carbonate 300 mg DAILY PO Last administered on 07/09/18 08:14; Start 06/19/18 at 09:00 [place] Citrate 5.3 meq QHS PO Last administered on 07/09/18 20:56; Start at 21:00 Levothyroxine Sodium (Synthroid) 75 mcg 1X ONCE PO Last administered on 07:53; Start 06/19/18 at 07:00; Stop 06/19/18 at 07:01; Status DC Benztropine Mesylate (Cogentin) 1.5 mg QHS PO Last administered on 06/24/18 19: 58; Start 06/22/18 at 21:00; Stop 06/25/18 at 17:05; Status DC Benztropine Mesylate (Cogentin) 1 mg QHS PO Last administered on 07/02/18 19: 43; Start 06/25/18 at 21:00; Stop 07/02/18 at 21:00; Status DC Clozapine (Clozaril) 300 mg HS PO Last administered on 07/07/18 20:31; Start 06/28/18 at 21:00; Stop 07/08/18 at 15:05; Status DC Clozapine (Clozaril) 25 mg HS PO Last administered on 07/07/18 20:31; Start at 21:00; Stop 07/08/18 at 15:05; Status DC Benztropine Mesylate (Cogentin) 0.5 mg QHS PO Last administered on 07/03/18at 20 :59; Start 07/03/18 at 21:00; Stop 07/04/18 at 20:59; Status DC Clozapine (Clozaril) 300 mg BID PO ; Start 07/08/18 at 21:00; Stop 07/08/18 at 21:00; Status DC Clozapine (Clozaril) 300 mg HS PO Last administered on 07/09/18at 20:56; Start 07/08/18 at 21:00 Clozapine (Clozaril) 50 mg HS PO Last administered on 07/09/18at 20:56; Start at 21:00 Active Scripts Active Reported Hydroxyzine Hcl 10 Mg Tablet 10 Mg PO PRN Q2HR PRN Clozapine 100 Mg Tablet 1 Tab PO 1700 Remeron (Mirtazapine) 15 Mg Tablet 1 Tab PO 1700 Depakote Er (Divalproex Sodium) 500 Mg Tab.er.24h 750 Mg PO 1700 Nystatin 15 Gm Powder 1 Speedy TP BID Lidocaine 1 Each Adh..patch 1 Each TP DAILY Lotrimin Af (Clotrimazole) 12 Gm Cream..g. 1 Speedy TP BID PRN Sorbitol (Sorbitol Solution) 1 Ml Solution 30 Ml PO PRN DAILY PRN Trazodone Hcl 50 Mg Tablet 100 Mg PO QHS PRN Elmer-128 (Sodium Chloride) 3.5 Gm Oint...g. 1 Speedy OP HS Lipitor (Atorvastatin Calcium) 20 Mg Tablet 20 Mg PO DAILYWSUP Levothyroxine Sodium 75 Mcg Tablet 75 Mcg PO DAILYAC Estrace (Estradiol) 42.5 Gm Cream.appl 1 Speedy VG 2X WEEK Q MON, THURS Endocet 10-325 Mg Tablet (Oxycodone Hcl/Acetaminophen) 1 Each Tablet 1 Each PO PRN Q6HRS PRN Vitamin B-12 (Cyanocobalamin (Vitamin B-12)) 1,000 Mcg Tablet 1,000 Mcg PO DAILY Maalox Advanced Suspension (Mag Hydrox/Aluminum Hyd/Simeth) 355 Ml Oral.susp 15 Ml PO PRN AFTMEALHC PRN Analgesic [place] (Methyl Salicylate/Menthol) 28 Gm Oint...g. 1 Speedy TP PRN QID PRN Risperidone 1 Mg Tablet 1.5 Mg PO 1700 Refresh Classic Eye Drops (Polyvinyl Alcohol/Povidone/Pf) 1 Each Droperette 1 Each OU TID PRN Trazodone Hcl 50 Mg Tablet 100 Mg PO DAILYWSUP Norvasc (Amlodipine Besylate) 5 Mg Tablet 10 Mg PO DAILY Miralax (Polyethylene Glycol 3350) 17 Gm Powd.pack 17 Gm PO DAILY Milk Of Magnesia (Magnesium Hydroxide) 2,400 Mg/10 Ml Oral.susp 2,400 Mg PO PRN DAILY PRN Tylenol (Acetaminophen) 325 Mg Tablet 650 Mg PO PRN Q6HRS PRN I have reviewed the current psychotropics carefully including drug interactions. Risk benefit ratio favors no change other than as noted in my dictated progress note. 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
--- NOTE | 2018-07-09 23:56 | NUR ---
Nursing Note The patient was located in the day room for shift assessment and medication pass. The patient was compliant with medications and took them whole. The patient was appropriate with interactions with this nurse and peers. The patient is currently sleeping in her room.
[2018-07-10] MEDS: LEVOTHYROXINE 75 MCG TABLET PO SCH (05:55)
[2018-07-10 06:28] VITALS: BP 131/83
[2018-07-10] MEDS: FUROSEMIDE 20 MG TABLET PO SCH (09:37)
[2018-07-10] MEDS: prednisoLONE ACETATE 1% OPHTH SUSPENSION 5ML BOTTLE. OD SCH (09:37)
[2018-07-10] MEDS: POLYETHYLENE GLYCOL 3350 17 GM PACKET. PO SCH (09:37)
[2018-07-10] MEDS: LITHIUM CARBONATE 300 MG TABLET PO SCH (09:37)
[2018-07-10] MEDS: CYANOCOBALAMIN (VITAMIN B-12) 1,000 MCG TABLET. PO SCH (09:38)
[2018-07-10] MEDS: amLODIPine BESYLATE 5 MG TABLET PO SCH (09:38)
--- NOTE | 2018-07-10 11:40 | NUR ---
Pt has been calm, cooperative, compliant. No agitation or aggression. She is able to focus on tasks and is med compliant. Denies hallucinations. No delusions noted. She is withdrawn to her room but comes out for meals. She is able to shower herself.
[2018-07-10 16:01] VITALS: BP 130/85
--- NOTE | 2018-07-10 19:48 | PN ---
DATE: 07/08/2018 PSYCHIATRIC PROGRESS NOTE This late entry 07/08/2018 covers elements not covered in my initial note. SUBJECTIVE: Met with the patient in the evening, staffed at a treatment team meeting earlier in the day. Appetite is 100%, sleeping 8 hours average, 6-3/4 hours previous night, overall better. Previous night, she soiled and urinated in her bed and when I processed this with her, she was somewhat ashamed and did not know why this happened. [place]ipp[place] level is 0.6 and we will repeat it. Social service staff indicated she has a level [address] and discharge could not be done till the state completes this. REVIEW OF SYSTEMS: No CV, , pulmonary, eye, ENT system symptoms on review. MENTAL STATUS EXAM: Oriented to herself. Insight is fair. Judgment is intact to standard questioning. Mood and affect is improved. Attention span is short. Language function is intact. No suicidal or homicidal ideation. LABORATORY DATA: Reviewed. IMPRESSION: Unchanged from initial note. PLAN: No change from initial note. KIERSTEN WATT MD DR: SANCHEZ/fredrick JOB#: [id number] / [id number]
[2018-07-10] MEDS: ATORVASTATIN CALCIUM 20 MG TABLET PO SCH (20:47)
[2018-07-10] MEDS: DIVALPROEX ER 500 MG TAB.ER.24H PO SCH (20:48)
[2018-07-10] MEDS: cloZAPine 100 MG TABLET PO SCH (20:48)
[2018-07-10] MEDS: cloZAPine 25 MG TABLET PO SCH (20:48)
[2018-07-10] MEDS: MIRTAZAPINE 7.5 MG TABLET. PO SCH (20:49)
--- NOTE | 2018-07-10 22:46 | PDOC ---
Exam Note: Julian Note: Please also refer to the separate dictated note~for this date of service dictated separately.~Patient seen individually. Discussed the patient with Nursing staff reviewed the chart.~Reviewed interim history and current functioning. Reviewed vital signs,~Labs/ Radiology~and current medications noted below. Continue current treatment with the changes noted in the dictated addendum note Assessment: Vital Signs: Vital Signs Date Time Temp Pulse Resp B/P (MAP) Pulse Ox O2 Delivery O2 Flow Rate FiO2 07/10/18 16:01 98.9 97 16 130/85 (100) 98 07/10/18 06:28 Room Air I&O Intake and Output 07/10/18 07:00 Intake Total 1080 ml Balance 1080 ml Intake Oral 1080 ml # Voids 1 Current Medications: Meds: Current Medications Acetaminophen (Tylenol) 650 mg PRN Q6HRS PRN PO PAIN / TEMP Last administered on 06/23/18 05:51; Start 06/06/18 at 04:15 Multi-Ingredient Ointment (Analgesic [place]) 1 speedy PRN QID PRN TP MUSCLE PAIN Last administered on 06/07/18at 22:53; Start 06/06/18 at 04:15 Al Hydroxide/Mg Hydroxide (Mylanta Plus Xs) 15 ml PRN AFTMEALHC PRN PO DYSPEPSIA; Start 06/06/18 at 04:15 Magnesium Hydroxide (Milk Of Magnesia) 2,400 mg PRN QHS PRN PO CONSTIPATION; Start 06/06/18 at 04:15 Amlodipine Besylate (Norvasc) 5 mg DAILY PO Last administered on 07/10/18at 09: 38; Start 06/06/18 at 09:00 Atorvastatin Calcium (Lipitor) 20 mg QHS PO Last administered on 07/10/18at 20: 47; Start 06/06/18 at 21:00 Clozapine (Clozaril) 100 mg [id number] PO Last administered on 06/15/18at 07:44; Start 06/06/18 at 09:00; Stop 06/15/18 at 18:36; Status DC Clozapine (Clozaril) 50 mg [id number] PO Last administered on 06/15/18at 07:44; Start 06/06/18 at 09:00; Stop 06/15/18 at 18:36; Status DC Cyanocobalamin (Vitamin B-12) 1,000 mcg DAILY PO Last administered on 09:38; Start 06/06/18 at 09:00 Divalproex Sodium (Depakote Er) 1,000 mg QHS PO Last administered on 07/10/18 20:48; Start 06/06/18 at 21:00 Vitamin D (Vitamin D3) 50,000 unit WEEKLY PO Last administered on 07/05/18 08: 13; Start 06/07/18 at 09:00 Estradiol (Estrace) 1 speedy QMTH VG Last administered on 06/08/18 15:41; Start 06/08/18 at 16:00; Stop 06/08/18 at 21:19; Status DC Furosemide (Lasix) 20 mg DAILY PO Last administered on 07/10/18 09:37; Start 06/06/18 at 09:00 Levothyroxine Sodium (Synthroid) 75 mcg DAILY06 PO Last administered on 05:55; Start 06/06/18 at 06:00 Melatonin 6 mg PRN QHS PRN PO INSOMNIA Last administered on 06/13/18 22:23; Start 06/06/18 at 04:30 Magnesium Hydroxide (Milk Of Magnesia) 2,400 mg PRN DAILY PRN PO CONSTIPATION; Start 06/06/18 at 04:30; Status UNV Polyethylene Glycol (miraLAX) 17 gm DAILY PO Last administered on 07/10/18 09: 37; Start 06/06/18 at 09:00 Prednisolone Acetate (Pred Forte) 1 drop DAILY OD Last administered on 09:37; Start 06/06/18 at 09:00 Artificial Tears (Refresh Classic) 1 drop TID PRN PRN OU DRY EYE; Start at 04:30 Mirtazapine (Remeron) 7.5 mg QHS PO Last administered on 07/10/18 20:49; Start 06/06/18 at 21:00 Trazodone HCl (Desyrel) 100 mg PRN QHS PRN PO INSOMNIA, MAY REPEAT X3 Last administered on 06/23/18 20:10; Start 06/06/18 at 19:00 Olanzapine (ZyPREXA ZYDIS) 5 mg PRN Q2HR PRN PO PSYCHOSIS Last administered on 1/30/19at 22:09; Start 06/07/18 at 14:00 Haloperidol (Haldol) 5 mg HS PO ; Start 06/07/18 at 21:00; Stop 06/07/18 at 21: 00; Status DC Haloperidol Lactate (Haldol) 5 mg DAILY IM Last administered on 06/09/18at 07:51 ; Start 06/07/18 at 19:15; Stop 06/09/18 at 09:41; Status DC Estradiol (Estrace) 1 speedy QMTH VG ; Start 06/11/18 at 21:00; Stop 06/18/18 at 11 :41; Status DC Haloperidol Lactate (Haldol) 5 mg 1X ONCE IM Last administered on 06/09/18at 09 :43; Start 06/09/18 at 09:45; Stop 06/09/18 at 09:46; Status DC Haloperidol Lactate (Haldol) 10 mg DAILY IM Last administered on 06/14/18at 08: 40; Start 06/10/18 at 09:00; Stop 06/14/18 at 13:06; Status DC Hydroxyzine HCl (Atarax) 50 mg 1X ONCE PO Last administered on 06/09/18at 17:26 ; Start 06/09/18 at 17:15; Stop 06/09/18 at 17:24; Status DC Hydroxyzine HCl (Atarax) 50 mg 1X ONCE PO Last administered on 06/09/18at 18:29 ; Start 06/09/18 at 18:25; Stop 06/09/18 at 18:26; Status DC Benztropine Mesylate (Cogentin) 1 mg QHS PO Last administered on 06/21/18at 21:57 ; Start 06/10/18 at 21:00; Stop 06/22/18 at 16:50; Status DC [place] Carbonate 300 mg HS PO Last administered on 06/13/18at 19:20; Start at 21:00; Stop 06/14/18 at 13:06; Status DC Hydroxyzine HCl (Atarax) 50 mg PRN Q2HR PRN PO SEDATION Last administered on 06/20/18at 01:30; Start 06/11/18 at 15:00 Trazodone HCl (Desyrel) 100 mg PRN 1X PRN PO insomnia Last administered on 06/12at 04:16; Start 06/12/18 at 03:15 Lorazepam (Ativan Intensol) 0.5 mg 1X ONCE SL Last administered on 06/13/18at 21:51; Start 06/13/18 at 18:15; Stop 06/13/18 at 18:16; Status DC Lorazepam (Ativan) 1 mg DAILY IM Last administered on 06/23/18 08:16; Start at 09:50; Stop 06/24/18 at 15:40; Status DC Haloperidol Lactate (Haldol) 5 mg DAILY IM Last administered on 06/16/18 09:54 ; Start 06/15/18 at 09:00; Stop 06/18/18 at 10:45; Status DC [place] Carbonate 300 mg BID PO Last administered on 06/18/18 08:14; Start at 21:00; Stop 06/18/18 at 15:03; Status DC Clozapine (Clozaril) 300 mg DAILY PO Last administered on 06/27/18 08:13; Start 06/16/18 at 09:00; Stop 06/28/18 at 00:33; Status DC Clozapine (Clozaril) 25 mg DAILY PO Last administered on 06/27/18 08:13; Start 06/16/18 at 09:00; Stop 06/28/18 at 00:33; Status DC Estradiol (Estrace) 1 speedy MoTh VG Last administered on 06/18/18at 20:05; Start 06/18/18 at 21:00 [place] Carbonate 300 mg DAILY PO Last administered on 07/10/18 09:37; Start 06/19/18 at 09:00 [place] Citrate 5.3 meq QHS PO Last administered on 07/09/18 20:56; Start at 21:00; Stop 07/10/18 at 17:09; Status DC Levothyroxine Sodium (Synthroid) 75 mcg 1X ONCE PO Last administered on 07:53; Start 06/19/18 at 07:00; Stop 06/19/18 at 07:01; Status DC Benztropine Mesylate (Cogentin) 1.5 mg QHS PO Last administered on 06/24/18 19: 58; Start 06/22/18 at 21:00; Stop 06/25/18 at 17:05; Status DC Benztropine Mesylate (Cogentin) 1 mg QHS PO Last administered on 07/02/18at 19: 43; Start 06/25/18 at 21:00; Stop 07/02/18 at 21:00; Status DC Clozapine (Clozaril) 300 mg HS PO Last administered on 07/07/18at 20:31; Start 06/28/18 at 21:00; Stop 07/08/18 at 15:05; Status DC Clozapine (Clozaril) 25 mg HS PO Last administered on 07/07/18at 20:31; Start at 21:00; Stop 07/08/18 at 15:05; Status DC Benztropine Mesylate (Cogentin) 0.5 mg QHS PO Last administered on 07/03/18at 20 :59; Start 07/03/18 at 21:00; Stop 07/04/18 at 20:59; Status DC Clozapine (Clozaril) 300 mg BID PO ; Start 07/08/18 at 21:00; Stop 07/08/18 at 21:00; Status DC Clozapine (Clozaril) 300 mg HS PO Last administered on 07/10/18at 20:48; Start 07/08/18 at 21:00 Clozapine (Clozaril) 50 mg HS PO Last administered on 07/10/18at 20:48; Start at 21:00 [place] Citrate 6.67 meq HS PO ; Start 07/10/18 at 21:00 Active Scripts Active Reported Hydroxyzine Hcl 10 Mg Tablet 10 Mg PO PRN Q2HR PRN Clozapine 100 Mg Tablet 1 Tab PO 1700 Remeron (Mirtazapine) 15 Mg Tablet 1 Tab PO 1700 Depakote Er (Divalproex Sodium) 500 Mg Tab.er.24h 750 Mg PO 1700 Nystatin 15 Gm Powder 1 Speedy TP BID Lidocaine 1 Each Adh..patch 1 Each TP DAILY Lotrimin Af (Clotrimazole) 12 Gm Cream..g. 1 Speedy TP BID PRN Sorbitol (Sorbitol Solution) 1 Ml Solution 30 Ml PO PRN DAILY PRN Trazodone Hcl 50 Mg Tablet 100 Mg PO QHS PRN [place]mer-128 (Sodium Chloride) 3.5 Gm Oint...g. 1 Speedy OP HS Lipitor (Atorvastatin Calcium) 20 Mg Tablet 20 Mg PO DAILYWSUP Levothyroxine Sodium 75 Mcg Tablet 75 Mcg PO DAILYAC Estrace (Estradiol) 42.5 Gm Cream.appl 1 Speedy VG 2X WEEK Q FRI, URS Endocet 10-325 Mg Tablet (Oxycodone Hcl/Acetaminophen) 1 Each Tablet 1 Each PO PRN Q6HRS PRN Vitamin B-12 (Cyanocobalamin (Vitamin B-12)) 1,000 Mcg Tablet 1,000 Mcg PO DAILY Maalox Advanced Suspension (Mag Hydrox/Aluminum Hyd/Simeth) 355 Ml Oral.susp 15 Ml PO PRN AFTMEALHC PRN Analgesic [place] (Methyl Salicylate/Menthol) 28 Gm Oint...g. 1 Speedy TP PRN QID PRN Risperidone 1 Mg Tablet 1.5 Mg PO 1700 Refresh Classic Eye Drops (Polyvinyl Alcohol/Povidone/Pf) 1 Each Droperette 1 Each OU TID PRN Trazodone Hcl 50 Mg Tablet 100 Mg PO DAILYWSUP Norvasc (Amlodipine Besylate) 5 Mg Tablet 10 Mg PO DAILY Miralax (Polyethylene Glycol 3350) 17 Gm Powd.pack 17 Gm PO DAILY Milk Of Magnesia (Magnesium Hydroxide) 2,400 Mg/10 Ml Oral.susp 2,400 Mg PO PRN DAILY PRN Tylenol (Acetaminophen) 325 Mg Tablet 650 Mg PO PRN Q6HRS PRN I have reviewed the current psychotropics carefully including drug interactions. Risk benefit ratio favors no change other than as noted in my dictated progress note. 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
[2018-07-10] MEDS: LITHIUM CITRATE PO SCH (23:02)
--- NOTE | 2018-07-10 23:13 | PN ---
DATE: 07/09/2018 PSYCHIATRIC PROGRESS NOTE This late entry 07/09/2018 covers elements not covered in my initial note. SUBJECTIVE: I met with the patient in the evening. The patient has been coming out more out of her room, slept 7 hours previous night. Her visited her and she was pleased with this. I addressed this with her individually in the evening. REVIEW OF SYSTEMS: No CV, , pulmonary, eye, ENT system symptoms on review. MENTAL STATUS EXAM: Oriented to herself and situation. Speech is coherent, less pressured. Abstraction fair, computation impaired, language function intact. Mood and affect is overall improved. LABORATORY DATA: Reviewed. IMPRESSION: Bipolar 1 disorder, mixed with psychotic features, in partial remission. Rest unchanged. PLAN: Continue current psychotropics. We will repeat a lithium level, attempt to keep it around 0.7 and adjust as clinically indicated. Rest unchanged from initial note. MAN Rox WATT MD DR: SANCHEZ/fredrick JOB#: [id number] / [id number]
--- NOTE | 2018-07-10 23:41 | NUR ---
Nursing Note The patient was located in the day room watching TV for her assessment and medication pass. The patient took her medications whole. The patient was appropriate during all interactions with this nurse and peers. The patient is currently sleeping in her room.
[2018-07-11] MEDS: LEVOTHYROXINE 75 MCG TABLET PO SCH (06:31)
[2018-07-11 07:12] VITALS: BP 121/78
[2018-07-11] MEDS: prednisoLONE ACETATE 1% OPHTH SUSPENSION 5ML BOTTLE. OD SCH (07:53)
[2018-07-11] MEDS: amLODIPine BESYLATE 5 MG TABLET PO SCH (07:54)
[2018-07-11] MEDS: LITHIUM CARBONATE 300 MG TABLET PO SCH (07:54)
[2018-07-11] MEDS: FUROSEMIDE 20 MG TABLET PO SCH (07:54)
[2018-07-11] MEDS: POLYETHYLENE GLYCOL 3350 17 GM PACKET. PO SCH (07:54)
[2018-07-11] MEDS: CYANOCOBALAMIN (VITAMIN B-12) 1,000 MCG TABLET. PO SCH (07:55)
--- NOTE | 2018-07-11 10:40 | NUR ---
Pt has been calm, cooperative, compliant. No agitation or aggression. She is able to focus on tasks and is med compliant. Denies hallucinations. No delusions noted. She is withdrawn to her room at times but has been out more, she is up and out of her room for meals.
[2018-07-11 16:11] VITALS: BP 129/79
[2018-07-11] MEDS: cloZAPine 25 MG TABLET PO SCH (20:31)
[2018-07-11] MEDS: cloZAPine 100 MG TABLET PO SCH (20:32)
[2018-07-11] MEDS: MIRTAZAPINE 7.5 MG TABLET. PO SCH (20:32)
[2018-07-11] MEDS: DIVALPROEX ER 500 MG TAB.ER.24H PO SCH (20:32)
[2018-07-11] MEDS: ATORVASTATIN CALCIUM 20 MG TABLET PO SCH (20:32)
[2018-07-11] MEDS: LITHIUM CITRATE PO SCH (20:33)
--- NOTE | 2018-07-11 21:40 | PDOC ---
Exam Note: Julian Note: Please also refer to the separate dictated note~for this date of service dictated separately.~Patient seen individually. Discussed the patient with Nursing staff reviewed the chart.~Reviewed interim history and current functioning. Reviewed vital signs,~Labs/ Radiology~and current medications noted below. Continue current treatment with the changes noted in the dictated addendum note Assessment: Vital Signs: Vital Signs Date Time Temp Pulse Resp B/P (MAP) Pulse Ox O2 Delivery O2 Flow Rate FiO2 07/11/18 16:11 98.0 102 18 129/79 (96) 98 Room Air I&O Intake and Output 07/11/18 07:00 Intake Total 1020 ml Balance 1020 ml Intake Oral 1020 ml # Voids 1 Current Medications: Meds: Current Medications Acetaminophen (Tylenol) 650 mg PRN Q6HRS PRN PO PAIN / TEMP Last administered on 06/23/18 05:51; Start 06/06/18 at 04:15 Multi-Ingredient Ointment (Analgesic [place]) 1 speedy PRN QID PRN TP MUSCLE PAIN Last administered on 06/07/18at 22:53; Start 06/06/18 at 04:15 Al Hydroxide/Mg Hydroxide (Mylanta Plus Xs) 15 ml PRN AFTMEALHC PRN PO DYSPEPSIA; Start 06/06/18 at 04:15 Magnesium Hydroxide (Milk Of Magnesia) 2,400 mg PRN QHS PRN PO CONSTIPATION; Start 06/06/18 at 04:15 Amlodipine Besylate (Norvasc) 5 mg DAILY PO Last administered on 07/11/18at 07: 54; Start 06/06/18 at 09:00 Atorvastatin Calcium (Lipitor) 20 mg QHS PO Last administered on 07/11/18at 20: 32; Start 06/06/18 at 21:00 Clozapine (Clozaril) 100 mg [id number] PO Last administered on 06/15/18 07:44; Start 06/06/18 at 09:00; Stop 06/15/18 at 18:36; Status DC Clozapine (Clozaril) 50 mg [id number] PO Last administered on 06/15/18at 07:44; Start 06/06/18 at 09:00; Stop 06/15/18 at 18:36; Status DC Cyanocobalamin (Vitamin B-12) 1,000 mcg DAILY PO Last administered on 07:55; Start 06/06/18 at 09:00 Divalproex Sodium (Depakote Er) 1,000 mg QHS PO Last administered on 07/11/18 20:32; Start 06/06/18 at 21:00 Vitamin D (Vitamin D3) 50,000 unit WEEKLY PO Last administered on 07/05/18 08: 13; Start 06/07/18 at 09:00 Estradiol (Estrace) 1 speedy QMTH VG Last administered on 06/08/18 15:41; Start 06/08/18 at 16:00; Stop 06/08/18 at 21:19; Status DC Furosemide (Lasix) 20 mg DAILY PO Last administered on 07/11/18 07:54; Start 06/06/18 at 09:00 Levothyroxine Sodium (Synthroid) 75 mcg DAILY06 PO Last administered on 06:31; Start 06/06/18 at 06:00 Melatonin 6 mg PRN QHS PRN PO INSOMNIA Last administered on 06/13/18 22:23; Start 06/06/18 at 04:30 Magnesium Hydroxide (Milk Of Magnesia) 2,400 mg PRN DAILY PRN PO CONSTIPATION; Start 06/06/18 at 04:30; Status UNV Polyethylene Glycol (miraLAX) 17 gm DAILY PO Last administered on 07/11/18 07: 54; Start 06/06/18 at 09:00 Prednisolone Acetate (Pred Forte) 1 drop DAILY OD Last administered on 07:53; Start 06/06/18 at 09:00 Artificial Tears (Refresh Classic) 1 drop TID PRN PRN OU DRY EYE; Start at 04:30 Mirtazapine (Remeron) 7.5 mg QHS PO Last administered on 07/11/18 20:32; Start 06/06/18 at 21:00 Trazodone HCl (Desyrel) 100 mg PRN QHS PRN PO INSOMNIA, MAY REPEAT X3 Last administered on 06/23/18 20:10; Start 06/06/18 at 19:00 Olanzapine (ZyPREXA ZYDIS) 5 mg PRN Q2HR PRN PO PSYCHOSIS Last administered on 06/17/18 22:09; Start 06/07/18 at 14:00 Haloperidol (Haldol) 5 mg HS PO ; Start 06/07/18 at 21:00; Stop 06/07/18 at 21: 00; Status DC Haloperidol Lactate (Haldol) 5 mg DAILY IM Last administered on 06/09/18at 07:51 ; Start 06/07/18 at 19:15; Stop 06/09/18 at 09:41; Status DC Estradiol (Estrace) 1 speedy QMTH VG ; Start 06/11/18 at 21:00; Stop 06/18/18 at 11 :41; Status DC Haloperidol Lactate (Haldol) 5 mg 1X ONCE IM Last administered on 06/09/18at 09 :43; Start 06/09/18 at 09:45; Stop 06/09/18 at 09:46; Status DC Haloperidol Lactate (Haldol) 10 mg DAILY IM Last administered on 06/14/18at 08: 40; Start 06/10/18 at 09:00; Stop 06/14/18 at 13:06; Status DC Hydroxyzine HCl (Atarax) 50 mg 1X ONCE PO Last administered on 06/09/18at 17:26 ; Start 06/09/18 at 17:15; Stop 06/09/18 at 17:24; Status DC Hydroxyzine HCl (Atarax) 50 mg 1X ONCE PO Last administered on 06/09/18at 18:29 ; Start 06/09/18 at 18:25; Stop 06/09/18 at 18:26; Status DC Benztropine Mesylate (Cogentin) 1 mg QHS PO Last administered on 06/21/18at 21:57 ; Start 06/10/18 at 21:00; Stop 06/22/18 at 16:50; Status DC [place] Carbonate 300 mg HS PO Last administered on 06/13/18at 19:20; Start at 21:00; Stop 06/14/18 at 13:06; Status DC Hydroxyzine HCl (Atarax) 50 mg PRN Q2HR PRN PO SEDATION Last administered on 06/20/18at 01:30; Start 06/11/18 at 15:00 Trazodone HCl (Desyrel) 100 mg PRN 1X PRN PO insomnia Last administered on 06/12at 04:16; Start 06/12/18 at 03:15 Lorazepam (Ativan Intensol) 0.5 mg 1X ONCE SL Last administered on 06/13/18at 21:51; Start 06/13/18 at 18:15; Stop 06/13/18 at 18:16; Status DC Lorazepam (Ativan) 1 mg DAILY IM Last administered on 06/23/18 08:16; Start at 09:50; Stop 06/24/18 at 15:40; Status DC Haloperidol Lactate (Haldol) 5 mg DAILY IM Last administered on 06/16/18at 09:54 ; Start 06/15/18 at 09:00; Stop 06/18/18 at 10:45; Status DC [place] Carbonate 300 mg BID PO Last administered on 06/18/18 08:14; Start at 21:00; Stop 06/18/18 at 15:03; Status DC Clozapine (Clozaril) 300 mg DAILY PO Last administered on 06/27/18 08:13; Start 06/16/18 at 09:00; Stop 06/28/18 at 00:33; Status DC Clozapine (Clozaril) 25 mg DAILY PO Last administered on 06/27/18 08:13; Start 06/16/18 at 09:00; Stop 06/28/18 at 00:33; Status DC Estradiol (Estrace) 1 speedy MoTh VG Last administered on 06/18/18at 20:05; Start 06/18/18 at 21:00 [place] Carbonate 300 mg DAILY PO Last administered on 07/11/18 07:54; Start 06/19/18 at 09:00 [place] Citrate 5.3 meq QHS PO Last administered on 07/09/18at 20:56; Start at 21:00; Stop 07/10/18 at 17:09; Status DC Levothyroxine Sodium (Synthroid) 75 mcg 1X ONCE PO Last administered on 07:53; Start 06/19/18 at 07:00; Stop 06/19/18 at 07:01; Status DC Benztropine Mesylate (Cogentin) 1.5 mg QHS PO Last administered on 06/24/18 19: 58; Start 06/22/18 at 21:00; Stop 06/25/18 at 17:05; Status DC Benztropine Mesylate (Cogentin) 1 mg QHS PO Last administered on 07/02/18 19: 43; Start 06/25/18 at 21:00; Stop 07/02/18 at 21:00; Status DC Clozapine (Clozaril) 300 mg HS PO Last administered on 07/07/18 20:31; Start 06/28/18 at 21:00; Stop 07/08/18 at 15:05; Status DC Clozapine (Clozaril) 25 mg HS PO Last administered on 07/07/18 20:31; Start at 21:00; Stop 07/08/18 at 15:05; Status DC Benztropine Mesylate (Cogentin) 0.5 mg QHS PO Last administered on 07/03/18 20 :59; Start 07/03/18 at 21:00; Stop 07/04/18 at 20:59; Status DC Clozapine (Clozaril) 300 mg BID PO ; Start 07/08/18 at 21:00; Stop 07/08/18 at 21:00; Status DC Clozapine (Clozaril) 300 mg HS PO Last administered on 07/11/18 20:32; Start 07/08/18 at 21:00 Clozapine (Clozaril) 50 mg HS PO Last administered on 07/11/18 20:31; Start at 21:00 [place] Citrate 6.67 meq HS PO Last administered on 07/11/18 20:33; Start at 21:00 Active Scripts Active Reported Hydroxyzine Hcl 10 Mg Tablet 10 Mg PO PRN Q2HR PRN Clozapine 100 Mg Tablet 1 Tab PO 1700 Remeron (Mirtazapine) 15 Mg Tablet 1 Tab PO 1700 Depakote Er (Divalproex Sodium) 500 Mg Tab.er.24h 750 Mg PO 1700 Nystatin 15 Gm Powder 1 Speedy TP BID Lidocaine 1 Each Adh..patch 1 Each TP DAILY Lotrimin Af (Clotrimazole) 12 Gm Cream..g. 1 Speedy TP BID PRN Sorbitol (Sorbitol Solution) 1 Ml Solution 30 Ml PO PRN DAILY PRN Trazodone Hcl 50 Mg Tablet 100 Mg PO QHS PRN [place]-128 (Sodium Chloride) 3.5 Gm Oint...g. 1 Speedy OP HS Lipitor (Atorvastatin Calcium) 20 Mg Tablet 20 Mg PO DAILYWSUP Levothyroxine Sodium 75 Mcg Tablet 75 Mcg PO DAILYAC Estrace (Estradiol) 42.5 Gm Cream.appl 1 Speedy VG 2X WEEK Q FRI, URS Endocet 10-325 Mg Tablet (Oxycodone Hcl/Acetaminophen) 1 Each Tablet 1 Each PO PRN Q6HRS PRN Vitamin B-12 (Cyanocobalamin (Vitamin B-12)) 1,000 Mcg Tablet 1,000 Mcg PO DAILY Maalox Advanced Suspension (Mag Hydrox/Aluminum Hyd/Simeth) 355 Ml Oral.susp 15 Ml PO PRN AFTMEALHC PRN Analgesic [place] (Methyl Salicylate/Menthol) 28 Gm Oint...g. 1 Speedy TP PRN QID PRN Risperidone 1 Mg Tablet 1.5 Mg PO 1700 Refresh [place] Eye Drops (Polyvinyl Alcohol/Povidone/Pf) 1 Each Droperette 1 Each OU TID PRN Trazodone Hcl 50 Mg Tablet 100 Mg PO DAILYWSUP Norvasc (Amlodipine Besylate) 5 Mg Tablet 10 Mg PO DAILY Miralax (Polyethylene Glycol 3350) 17 Gm Powd.pack 17 Gm PO DAILY Milk Of Magnesia (Magnesium Hydroxide) 2,400 Mg/10 Ml Oral.susp 2,400 Mg PO PRN DAILY PRN Tylenol (Acetaminophen) 325 Mg Tablet 650 Mg PO PRN Q6HRS PRN I have reviewed the current psychotropics carefully including drug interactions. Risk benefit ratio favors no change other than as noted in my dictated progress note. 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
--- NOTE | 2018-07-12 00:46 | NUR ---
Pt sitting quietly in dayroom this evening. Compliant with whole medications. Withdrawn to self. Pt took her medications and then asked to go to bed.
[2018-07-12] MEDS: LEVOTHYROXINE 75 MCG TABLET PO SCH (06:09)
[2018-07-12 06:20] VITALS: BP 133/74
[2018-07-12] MEDS: LITHIUM CARBONATE 300 MG TABLET PO SCH (08:17)
[2018-07-12] MEDS: prednisoLONE ACETATE 1% OPHTH SUSPENSION 5ML BOTTLE. OD SCH (08:17)
[2018-07-12] MEDS: POLYETHYLENE GLYCOL 3350 17 GM PACKET. PO SCH (08:18)
[2018-07-12] MEDS: FUROSEMIDE 20 MG TABLET PO SCH (08:18)
[2018-07-12] MEDS: CYANOCOBALAMIN (VITAMIN B-12) 1,000 MCG TABLET. PO SCH (08:19)
[2018-07-12] MEDS: amLODIPine BESYLATE 5 MG TABLET PO SCH (08:19)
[2018-07-12] MEDS: CHOLECALCIFEROL (VITAMIN D3) 50,000 UNIT CAPSULE PO SCH (08:19)
--- NOTE | 2018-07-12 10:04 | NUR ---
Pt has been calm, cooperative, compliant. No agitation or aggression. She is able to focus on tasks and is med compliant. Denies hallucinations. No delusions noted.
[2018-07-12 16:16] VITALS: BP 90/63
--- NOTE | 2018-07-12 17:31 | PN ---
DATE: 07/10/2018 PSYCHIATRIC PROGRESS NOTE This late entry 07/10/2018 covers elements not covered in my initial note. SUBJECTIVE: I met with the patient in the evening. The patient slept 7 hours previous night. She has been more out of the room, had a better day, not aggressive. REVIEW OF SYSTEMS: No CV, , pulmonary, eye, ENT system symptoms on review. MENTAL STATUS EXAM: Oriented to herself, situation, reasonably oriented. Speech coherent, at times a little pressured. Abstraction fair, computation impaired, language function intact. Attention span short. She has some concerns about her visiting her since he has cancer and is wondering if it is too stressful for him. I addressed this with her. [place] level is 0.5, on lithium 300 mg a.m. and 200 mg at bedtime. IMPRESSION: Unchanged from initial note. PLAN: Increase lithium to 300 a.m., 250 at bedtime. Check lithium level in 2 days. Continue rest unchanged. MAN Rox WATT MD DR: SANCHEZ/fredrick JOB#: [id number] / [id number]
--- NOTE | 2018-07-12 19:46 | PDOC ---
Exam Note: Julian Note: Please also refer to the separate dictated note~for this date of service dictated separately.~Patient seen individually. Discussed the patient with Nursing staff reviewed the chart.~Reviewed interim history and current functioning. Reviewed vital signs,~Labs/ Radiology~and current medications noted below. Continue current treatment with the changes noted in the dictated addendum note Assessment: Vital Signs: Vital Signs Date Time Temp Pulse Resp B/P (MAP) Pulse Ox O2 Delivery O2 Flow Rate FiO2 07/12/18 16:16 99.3 99 20 90/63 (72) 95 07/11/18 16:11 Room Air I&O Intake and Output 07/12/18 06:59 Intake Total 1300 ml Balance 1300 ml Intake Oral 1300 ml # Voids 1 Current Medications: Meds: Current Medications Acetaminophen (Tylenol) 650 mg PRN Q6HRS PRN PO PAIN / TEMP Last administered on 06/23/18 05:51; Start 06/06/18 at 04:15 Multi-Ingredient Ointment (Analgesic [place]) 1 speedy PRN QID PRN TP MUSCLE PAIN Last administered on 06/07/18at 22:53; Start 06/06/18 at 04:15 Al Hydroxide/Mg Hydroxide (Mylanta Plus Xs) 15 ml PRN AFTMEALHC PRN PO DYSPEPSIA; Start 06/06/18 at 04:15 Magnesium Hydroxide (Milk Of Magnesia) 2,400 mg PRN QHS PRN PO CONSTIPATION; Start 06/06/18 at 04:15 Amlodipine Besylate (Norvasc) 5 mg DAILY PO Last administered on 07/12/18at 08: 19; Start 06/06/18 at 09:00 Atorvastatin Calcium (Lipitor) 20 mg QHS PO Last administered on 07/11/18at 20: 32; Start 06/06/18 at 21:00 Clozapine (Clozaril) 100 mg BID94 PO Last administered on 06/15/18at 07:44; Start 06/06/18 at 09:00; Stop 06/15/18 at 18:36; Status DC Clozapine (Clozaril) 50 mg BID94 PO Last administered on 06/15/18at 07:44; Start 06/06/18 at 09:00; Stop 06/15/18 at 18:36; Status DC Cyanocobalamin (Vitamin B-12) 1,000 mcg DAILY PO Last administered on 08:19; Start 06/06/18 at 09:00 Divalproex Sodium (Depakote Er) 1,000 mg QHS PO Last administered on 07/11/18 20:32; Start 06/06/18 at 21:00 Vitamin D (Vitamin D3) 50,000 unit WEEKLY PO Last administered on 07/12/18 08: 19; Start 06/07/18 at 09:00 Estradiol (Estrace) 1 speedy QMTH VG Last administered on 06/08/18 15:41; Start 06/08/18 at 16:00; Stop 06/08/18 at 21:19; Status DC Furosemide (Lasix) 20 mg DAILY PO Last administered on 07/12/18 08:18; Start 06/06/18 at 09:00 Levothyroxine Sodium (Synthroid) 75 mcg DAILY06 PO Last administered on 06:09; Start 06/06/18 at 06:00 Melatonin 6 mg PRN QHS PRN PO INSOMNIA Last administered on 06/13/18 22:23; Start 06/06/18 at 04:30 Magnesium Hydroxide (Milk Of Magnesia) 2,400 mg PRN DAILY PRN PO CONSTIPATION; Start 06/06/18 at 04:30; Status UNV Polyethylene Glycol (miraLAX) 17 gm DAILY PO Last administered on 07/12/18 08: 18; Start 06/06/18 at 09:00 Prednisolone Acetate (Pred Forte) 1 drop DAILY OD Last administered on 08:17; Start 06/06/18 at 09:00 Artificial Tears (Refresh Classic) 1 drop TID PRN PRN OU DRY EYE; Start at 04:30 Mirtazapine (Remeron) 7.5 mg QHS PO Last administered on 07/11/18 20:32; Start 06/06/18 at 21:00 Trazodone HCl (Desyrel) 100 mg PRN QHS PRN PO INSOMNIA, MAY REPEAT X3 Last administered on 06/23/18 20:10; Start 06/06/18 at 19:00 Olanzapine (ZyPREXA ZYDIS) 5 mg PRN Q2HR PRN PO PSYCHOSIS Last administered on 1/30/19at 22:09; Start 06/07/18 at 14:00 Haloperidol (Haldol) 5 mg HS PO ; Start 06/07/18 at 21:00; Stop 06/07/18 at 21: 00; Status DC Haloperidol Lactate (Haldol) 5 mg DAILY IM Last administered on 06/09/18at 07:51 ; Start 06/07/18 at 19:15; Stop 06/09/18 at 09:41; Status DC Estradiol (Estrace) 1 speedy QMTH VG ; Start 06/11/18 at 21:00; Stop 06/18/18 at 11 :41; Status DC Haloperidol Lactate (Haldol) 5 mg 1X ONCE IM Last administered on 06/09/18at 09 :43; Start 06/09/18 at 09:45; Stop 06/09/18 at 09:46; Status DC Haloperidol Lactate (Haldol) 10 mg DAILY IM Last administered on 06/14/18at 08: 40; Start 06/10/18 at 09:00; Stop 06/14/18 at 13:06; Status DC Hydroxyzine HCl (Atarax) 50 mg 1X ONCE PO Last administered on 06/09/18at 17:26 ; Start 06/09/18 at 17:15; Stop 06/09/18 at 17:24; Status DC Hydroxyzine HCl (Atarax) 50 mg 1X ONCE PO Last administered on 06/09/18at 18:29 ; Start 06/09/18 at 18:25; Stop 06/09/18 at 18:26; Status DC Benztropine Mesylate (Cogentin) 1 mg QHS PO Last administered on 06/21/18at 21:57 ; Start 06/10/18 at 21:00; Stop 06/22/18 at 16:50; Status DC [place] Carbonate 300 mg HS PO Last administered on 06/13/18at 19:20; Start at 21:00; Stop 06/14/18 at 13:06; Status DC Hydroxyzine HCl (Atarax) 50 mg PRN Q2HR PRN PO SEDATION Last administered on 06/20/18at 01:30; Start 06/11/18 at 15:00 Trazodone HCl (Desyrel) 100 mg PRN 1X PRN PO insomnia Last administered on 06/12at 04:16; Start 06/12/18 at 03:15 Lorazepam (Ativan Intensol) 0.5 mg 1X ONCE SL Last administered on 06/13/18at 21:51; Start 06/13/18 at 18:15; Stop 06/13/18 at 18:16; Status DC Lorazepam (Ativan) 1 mg DAILY IM Last administered on 06/23/18 08:16; Start at 09:50; Stop 06/24/18 at 15:40; Status DC Haloperidol Lactate (Haldol) 5 mg DAILY IM Last administered on 06/16/18 09:54 ; Start 06/15/18 at 09:00; Stop 06/18/18 at 10:45; Status DC [place] Carbonate 300 mg BID PO Last administered on 06/18/18 08:14; Start at 21:00; Stop 06/18/18 at 15:03; Status DC Clozapine (Clozaril) 300 mg DAILY PO Last administered on 06/27/18 08:13; Start 06/16/18 at 09:00; Stop 06/28/18 at 00:33; Status DC Clozapine (Clozaril) 25 mg DAILY PO Last administered on 06/27/18 08:13; Start 06/16/18 at 09:00; Stop 06/28/18 at 00:33; Status DC Estradiol (Estrace) 1 speedy MoTh VG Last administered on 06/18/18at 20:05; Start 06/18/18 at 21:00 [place] Carbonate 300 mg DAILY PO Last administered on 07/12/18 08:17; Start 06/19/18 at 09:00 [place] Citrate 5.3 meq QHS PO Last administered on 07/09/18 20:56; Start at 21:00; Stop 07/10/18 at 17:09; Status DC Levothyroxine Sodium (Synthroid) 75 mcg 1X ONCE PO Last administered on 07:53; Start 06/19/18 at 07:00; Stop 06/19/18 at 07:01; Status DC Benztropine Mesylate (Cogentin) 1.5 mg QHS PO Last administered on 06/24/18 19: 58; Start 06/22/18 at 21:00; Stop 06/25/18 at 17:05; Status DC Benztropine Mesylate (Cogentin) 1 mg QHS PO Last administered on 07/02/18 19: 43; Start 06/25/18 at 21:00; Stop 07/02/18 at 21:00; Status DC Clozapine (Clozaril) 300 mg HS PO Last administered on 07/07/18 20:31; Start 06/28/18 at 21:00; Stop 07/08/18 at 15:05; Status DC Clozapine (Clozaril) 25 mg HS PO Last administered on 07/07/18 20:31; Start at 21:00; Stop 07/08/18 at 15:05; Status DC Benztropine Mesylate (Cogentin) 0.5 mg QHS PO Last administered on 07/03/18 20 :59; Start 07/03/18 at 21:00; Stop 07/04/18 at 20:59; Status DC Clozapine (Clozaril) 300 mg BID PO ; Start 07/08/18 at 21:00; Stop 07/08/18 at 21:00; Status DC Clozapine (Clozaril) 300 mg HS PO Last administered on 07/11/18at 20:32; Start 07/08/18 at 21:00 Clozapine (Clozaril) 50 mg HS PO Last administered on 07/11/18 20:31; Start at 21:00 [place] Citrate 6.67 meq HS PO Last administered on 07/11/18at 20:33; Start at 21:00 Active Scripts Active Reported Hydroxyzine Hcl 10 Mg Tablet 10 Mg PO PRN Q2HR PRN Clozapine 100 Mg Tablet 1 Tab PO 1700 Remeron (Mirtazapine) 15 Mg Tablet 1 Tab PO 1700 Depakote Er (Divalproex Sodium) 500 Mg Tab.er.24h 750 Mg PO 1700 Nystatin 15 Gm Powder 1 Speedy TP BID Lidocaine 1 Each Adh..patch 1 Each TP DAILY Lotrimin Af (Clotrimazole) 12 Gm Cream..g. 1 Speedy TP BID PRN Sorbitol (Sorbitol Solution) 1 Ml Solution 30 Ml PO PRN DAILY PRN Trazodone Hcl 50 Mg Tablet 100 Mg PO QHS PRN [place]mer-128 (Sodium Chloride) 3.5 Gm Oint...g. 1 Speedy OP HS Lipitor (Atorvastatin Calcium) 20 Mg Tablet 20 Mg PO DAILYWSUP Levothyroxine Sodium 75 Mcg Tablet 75 Mcg PO DAILYAC Estrace (Estradiol) 42.5 Gm Cream.appl 1 Speedy VG 2X WEEK Q MON, THURS Endocet 10-325 Mg Tablet (Oxycodone Hcl/Acetaminophen) 1 Each Tablet 1 Each PO PRN Q6HRS PRN Vitamin B-12 (Cyanocobalamin (Vitamin B-12)) 1,000 Mcg Tablet 1,000 Mcg PO DAILY Maalox Advanced Suspension (Mag Hydrox/Aluminum Hyd/Simeth) 355 Ml Oral.susp 15 Ml PO PRN AFTMEALHC PRN Analgesic [place] (Methyl Salicylate/Menthol) 28 Gm Oint...g. 1 Speedy TP PRN QID PRN Risperidone 1 Mg Tablet 1.5 Mg PO 1700 Refresh [place] Eye Drops (Polyvinyl Alcohol/Povidone/Pf) 1 Each Droperette 1 Each OU TID PRN Trazodone Hcl 50 Mg Tablet 100 Mg PO DAILYWSUP Norvasc (Amlodipine Besylate) 5 Mg Tablet 10 Mg PO DAILY Miralax (Polyethylene Glycol 3350) 17 Gm Powd.pack 17 Gm PO DAILY Milk Of Magnesia (Magnesium Hydroxide) 2,400 Mg/10 Ml Oral.susp 2,400 Mg PO PRN DAILY PRN Tylenol (Acetaminophen) 325 Mg Tablet 650 Mg PO PRN Q6HRS PRN I have reviewed the current psychotropics carefully including drug interactions. Risk benefit ratio favors no change other than as noted in my dictated progress note. 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
[2018-07-12] MEDS: ATORVASTATIN CALCIUM 20 MG TABLET PO SCH (20:16)
[2018-07-12] MEDS: cloZAPine 100 MG TABLET PO SCH (20:16)
[2018-07-12] MEDS: DIVALPROEX ER 500 MG TAB.ER.24H PO SCH (20:17)
[2018-07-12] MEDS: cloZAPine 25 MG TABLET PO SCH (20:17)
[2018-07-12] MEDS: MIRTAZAPINE 7.5 MG TABLET. PO SCH (20:17)
[2018-07-12] MEDS: LITHIUM CITRATE PO SCH (20:18)
--- NOTE | 2018-07-13 00:44 | NUR ---
Pt sitting calmly in the dayroom. Compliant with whole medications and then asked to go to bed.
[2018-07-13 06:15] VITALS: BP 125/72
[2018-07-13] MEDS: LEVOTHYROXINE 75 MCG TABLET PO SCH (06:20)
[2018-07-13 07:31] LABS: BASO % 0 % (0-3); EOS # 0.2 x10^3/uL (0.0-0.7); EOS % 3 % (0-3); HEMATOCRIT 37.8 % (36.0-47.0); HEMOGLOBIN 12.6 g/dL (12.0-15.5); LYMPH # 1.3 x10^3/uL (1.0-4.8); LYMPH % 22 % (24-48); MEAN CORPUSCULAR HEMOGLOBIN 29 pg (25-35); MEAN CORPUSCULAR HGB CONC 33 g/dL (31-37); MEAN CORPUSCULAR VOLUME 87 fL (79-100); MONO # 0.6 x10^3/uL (0.0-1.1); MONO % 11 % (0-9); NEUT # 3.7 x10^3uL (1.8-7.7); NEUT % 64 % (31-73); PLATELET COUNT 179 x10^3/uL (140-400); RED BLOOD COUNT 4.34 x10^6/uL (3.50-5.40); RED CELL DISTRIBUTION WIDTH 16.5 % (11.5-14.5); WHITE BLOOD COUNT 5.8 x10^3/uL (4.0-11.0)
[2018-07-13 07:46] LABS: ALBUMIN 2.8 g/dL (3.4-5.0); ALBUMIN/GLOBULIN RATIO 0.7 (1.0-1.7); CALCIUM 9.7 mg/dL (8.5-10.1); CREATININE 0.9 mg/dL (0.6-1.0); GFR 62.1; POTASSIUM 4.7 mmol/L (3.5-5.1); TOTAL BILIRUBIN 0.3 mg/dL (0.2-1.0); TOTAL PROTEIN 6.8 g/dL (6.4-8.2)
[2018-07-13] MEDS: prednisoLONE ACETATE 1% OPHTH SUSPENSION 5ML BOTTLE. OD SCH (08:11)
[2018-07-13] MEDS: LITHIUM CARBONATE 300 MG TABLET PO SCH (08:11)
[2018-07-13] MEDS: POLYETHYLENE GLYCOL 3350 17 GM PACKET. PO SCH (08:11)
[2018-07-13] MEDS: FUROSEMIDE 20 MG TABLET PO SCH (08:11)
[2018-07-13] MEDS: CYANOCOBALAMIN (VITAMIN B-12) 1,000 MCG TABLET. PO SCH (08:12)
[2018-07-13] MEDS: amLODIPine BESYLATE 5 MG TABLET PO SCH (08:12)
--- NOTE | 2018-07-13 10:28 | NUR ---
Pt has been calm, cooperative, compliant. No agitation or aggression. She is able to focus on tasks and is med compliant. Denies hallucinations. No delusions noted. She is withdrawn to her room but interacts well with staff, her conversations are appropriate.
[2018-07-13 16:00] VITALS: BP 100/66
--- NOTE | 2018-07-13 19:24 | PN ---
DATE: 07/12/2018 PSYCHIATRIC PROGRESS NOTE This late entry 07/12/2018 covers elements not covered in my initial note. SUBJECTIVE: I met with the patient in the evening. The patient slept 7-3/4 hours previous night. Overall, she has been appropriate. [place] level is to be repeated on 07/13/2018 on the increased dosage. REVIEW OF SYSTEMS: No CV, , pulmonary, eye system symptoms on review. MENTAL STATUS EXAMINATION: Reasonably oriented. Speech is coherent, less pressured. Abstraction fair, computation impaired, language function intact. Mood and affect is improved. LABORATORY DATA: Reviewed. IMPRESSION: Unchanged from initial note. PLAN: No change from initial note. MAN Rox WATT MD DR: SANCHEZ/fredrick JOB#: [id number] / [id number]
--- NOTE | 2018-07-13 19:33 | PN ---
DATE: 07/11/2018 PSYCHIATRIC PROGRESS NOTE This late entry 07/11/2018 covers elements not covered in my initial note. SUBJECTIVE: I met with the patient in the evening. The patient slept 8-1/2 hours previous night. Overall, the patient has done much better. More compliant, appropriate, not psychotic, coming out for meals. She stays away from another demented patient who is sometimes inappropriate with females. We will check a lithium level on 07/13/2018 since we have increased the lithium to the night dosage of 250 at bedtime with the morning at 300. REVIEW OF SYSTEMS: No CV, , pulmonary, eye, ENT system symptoms on review. MENTAL STATUS EXAMINATION: Reasonably oriented. Speech is coherent, less pressured. Abstraction fair, computation impaired, language function intact, attention span short. Mood and affect is improved. LABORATORY DATA: Reviewed. IMPRESSION: Unchanged from initial note. PLAN: No change from initial note. KIERSTEN WATT MD DR: SANCHEZ/fredrick JOB#: [id number] / [id number]
[2018-07-13] MEDS: cloZAPine 100 MG TABLET PO SCH (19:56)
[2018-07-13] MEDS: ATORVASTATIN CALCIUM 20 MG TABLET PO SCH (19:56)
[2018-07-13] MEDS: cloZAPine 25 MG TABLET PO SCH (19:56)
[2018-07-13] MEDS: DIVALPROEX ER 500 MG TAB.ER.24H PO SCH (19:57)
[2018-07-13] MEDS: ESTRADIOL 0.01% VAGINAL CREAM 42.5GM TUBE. VG SCH (19:57)
[2018-07-13] MEDS: LITHIUM CITRATE PO SCH (20:00)
[2018-07-13] MEDS: MIRTAZAPINE 7.5 MG TABLET. PO SCH (20:13)
--- NOTE | 2018-07-13 22:15 | NUR ---
Nursing Note The patient was in her room for her medications and assessment. The patient is compliant with her medications and took them whole. the patient was appropriate during all interactions with this nurse. the patient is currently sleeping in her room.
--- NOTE | 2018-07-13 22:26 | PDOC ---
Exam Note: Julian Note: Please also refer to the separate dictated note~for this date of service dictated separately.~Patient seen individually. Discussed the patient with Nursing staff reviewed the chart.~Reviewed interim history and current functioning. Reviewed vital signs,~Labs/ Radiology~and current medications noted below. Continue current treatment with the changes noted in the dictated addendum note Assessment: Vital Signs: Vital Signs Date Time Temp Pulse Resp B/P (MAP) Pulse Ox O2 Delivery O2 Flow Rate FiO2 07/13/18 16:00 98.7 109 16 100/66 (77) 95 07/11/18 16:11 Room Air I&O Intake and Output 07/13/18 06:59 Intake Total 1200 ml Balance 1200 ml Intake Oral 1200 ml # Voids 1 Labs: Laboratory Tests Test 07/13/18 07:18 White Blood Count 5.8 x10^3/uL (4.0-11.0) Red Blood Count 4.34 x10^6/uL (3.50-5.40) Hemoglobin 12.6 g/dL (12.0-15.5) Hematocrit 37.8 % (36.0-47.0) Mean Corpuscular Volume 87 fL (79-100) Mean Corpuscular Hemoglobin 29 pg (25-35) Mean Corpuscular Hemoglobin Concent 33 g/dL (31-37) Red Cell Distribution Width 16.5 % (11.5-14.5) H Platelet Count 179 x10^3/uL (140-400) Neutrophils (%) (Auto) 64 % (31-73) Lymphocytes (%) (Auto) 22 % (24-48) L Monocytes (%) (Auto) 11 % (0-9) H Eosinophils (%) (Auto) 3 % (0-3) Basophils (%) (Auto) 0 % (0-3) Neutrophils # (Auto) 3.7 x10^3uL (1.8-7.7) Lymphocytes # (Auto) 1.3 x10^3/uL (1.0-4.8) Monocytes # (Auto) 0.6 x10^3/uL (0.0-1.1) Eosinophils # (Auto) 0.2 x10^3/uL (0.0-0.7) Basophils # (Auto) 0.0 x10^3/uL (0.0-0.2) Sodium Level 144 mmol/L (136-145) Potassium Level 4.7 mmol/L (3.5-5.1) Chloride Level 109 mmol/L (98-107) H Carbon Dioxide Level 31 mmol/L (21-32) Anion Gap 4 (6-14) L Blood Urea Nitrogen 16 mg/dL (7-20) Creatinine 0.9 mg/dL (0.6-1.0) Estimated GFR (Cockcroft-Gault) 62.1 BUN/Creatinine Ratio 18 (6-20) Glucose Level 102 mg/dL (70-99) H Calcium Level 9.7 mg/dL (8.5-10.1) Total Bilirubin 0.3 mg/dL (0.2-1.0) Aspartate Amino Transferase (AST) 15 U/L (15-37) Alanine Aminotransferase (ALT) 9 U/L (14-59) L Alkaline Phosphatase 95 U/L (46-116) Total Protein 6.8 g/dL (6.4-8.2) Albumin 2.8 g/dL (3.4-5.0) L Albumin/Globulin Ratio 0.7 (1.0-1.7) L [place] Level 0.7 mmol/L (0.6-1.2) [place] Last Dose Date 07/12/18 [place] Last Dose Time 2100 Current Medications: Meds: Current Medications Acetaminophen (Tylenol) 650 mg PRN Q6HRS PRN PO PAIN / TEMP Last administered on 06/23/18 05:51; Start 06/06/18 at 04:15 Multi-Ingredient Ointment (Analgesic [place]) 1 speedy PRN QID PRN TP MUSCLE PAIN Last administered on 06/07/18at 22:53; Start 06/06/18 at 04:15 Al Hydroxide/Mg Hydroxide (Mylanta Plus Xs) 15 ml PRN AFTMEALHC PRN PO DYSPEPSIA; Start 06/06/18 at 04:15 Magnesium Hydroxide (Milk Of Magnesia) 2,400 mg PRN QHS PRN PO CONSTIPATION; Start 06/06/18 at 04:15 Amlodipine Besylate (Norvasc) 5 mg DAILY PO Last administered on 07/13/18at 08: 12; Start 06/06/18 at 09:00 Atorvastatin Calcium (Lipitor) 20 mg QHS PO Last administered on 07/13/18 19: 56; Start 06/06/18 at 21:00 Clozapine (Clozaril) 100 mg BID94 PO Last administered on 06/15/18 07:44; Start 06/06/18 at 09:00; Stop 06/15/18 at 18:36; Status DC Clozapine (Clozaril) 50 mg BID94 PO Last administered on 06/15/18 07:44; Start 06/06/18 at 09:00; Stop 06/15/18 at 18:36; Status DC Cyanocobalamin (Vitamin B-12) 1,000 mcg DAILY PO Last administered on 08:12; Start 06/06/18 at 09:00 Divalproex Sodium (Depakote Er) 1,000 mg QHS PO Last administered on 07/13/18 19:57; Start 06/06/18 at 21:00 Vitamin D (Vitamin D3) 50,000 unit WEEKLY PO Last administered on 07/12/18 08: 19; Start 06/07/18 at 09:00 Estradiol (Estrace) 1 speedy QMTH VG Last administered on 06/08/18at 15:41; Start 06/08/18 at 16:00; Stop 06/08/18 at 21:19; Status DC Furosemide (Lasix) 20 mg DAILY PO Last administered on 07/13/18 08:11; Start 06/06/18 at 09:00 Levothyroxine Sodium (Synthroid) 75 mcg DAILY06 PO Last administered on 06:20; Start 06/06/18 at 06:00 Melatonin 6 mg PRN QHS PRN PO INSOMNIA Last administered on 06/13/18 22:23; Start 06/06/18 at 04:30 Magnesium Hydroxide (Milk Of Magnesia) 2,400 mg PRN DAILY PRN PO CONSTIPATION; Start 06/06/18 at 04:30; Status UNV Polyethylene Glycol (miraLAX) 17 gm DAILY PO Last administered on 07/13/18 08: 11; Start 06/06/18 at 09:00 Prednisolone Acetate (Pred Forte) 1 drop DAILY OD Last administered on 08:11; Start 06/06/18 at 09:00 Artificial Tears (Refresh Classic) 1 drop TID PRN PRN OU DRY EYE; Start at 04:30 Mirtazapine (Remeron) 7.5 mg QHS PO Last administered on 07/13/18at 20:13; Start 06/06/18 at 21:00 Trazodone HCl (Desyrel) 100 mg PRN QHS PRN PO INSOMNIA, MAY REPEAT X3 Last administered on 06/23/18at 20:10; Start 06/06/18 at 19:00 Olanzapine (ZyPREXA ZYDIS) 5 mg PRN Q2HR PRN PO PSYCHOSIS Last administered on 06/17/18at 22:09; Start 06/07/18 at 14:00 Haloperidol (Haldol) 5 mg HS PO ; Start 06/07/18 at 21:00; Stop 06/07/18 at 21: 00; Status DC Haloperidol Lactate (Haldol) 5 mg DAILY IM Last administered on 06/09/18at 07:51 ; Start 06/07/18 at 19:15; Stop 06/09/18 at 09:41; Status DC Estradiol (Estrace) 1 speedy QMTH VG ; Start 06/11/18 at 21:00; Stop 06/18/18 at 11 :41; Status DC Haloperidol Lactate (Haldol) 5 mg 1X ONCE IM Last administered on 06/09/18at 09 :43; Start 06/09/18 at 09:45; Stop 06/09/18 at 09:46; Status DC Haloperidol Lactate (Haldol) 10 mg DAILY IM Last administered on 06/14/18at 08: 40; Start 06/10/18 at 09:00; Stop 06/14/18 at 13:06; Status DC Hydroxyzine HCl (Atarax) 50 mg 1X ONCE PO Last administered on 06/09/18at 17:26 ; Start 06/09/18 at 17:15; Stop 06/09/18 at 17:24; Status DC Hydroxyzine HCl (Atarax) 50 mg 1X ONCE PO Last administered on 06/09/18at 18:29 ; Start 06/09/18 at 18:25; Stop 06/09/18 at 18:26; Status DC Benztropine Mesylate (Cogentin) 1 mg QHS PO Last administered on 06/21/18at 21:57 ; Start 06/10/18 at 21:00; Stop 06/22/18 at 16:50; Status DC [place] Carbonate 300 mg HS PO Last administered on 06/13/18 19:20; Start at 21:00; Stop 06/14/18 at 13:06; Status DC Hydroxyzine HCl (Atarax) 50 mg PRN Q2HR PRN PO SEDATION Last administered on 01:30; Start 06/11/18 at 15:00 Trazodone HCl (Desyrel) 100 mg PRN 1X PRN PO insomnia Last administered on 06/12 04:16; Start 06/12/18 at 03:15 Lorazepam (Ativan Intensol) 0.5 mg 1X ONCE SL Last administered on 06/13/18 21:51; Start 06/13/18 at 18:15; Stop 06/13/18 at 18:16; Status DC Lorazepam (Ativan) 1 mg DAILY IM Last administered on 06/23/18 08:16; Start at 09:50; Stop 06/24/18 at 15:40; Status DC Haloperidol Lactate (Haldol) 5 mg DAILY IM Last administered on 06/16/18 09:54 ; Start 06/15/18 at 09:00; Stop 06/18/18 at 10:45; Status DC [place] Carbonate 300 mg BID PO Last administered on 06/18/18 08:14; Start at 21:00; Stop 06/18/18 at 15:03; Status DC Clozapine (Clozaril) 300 mg DAILY PO Last administered on 06/27/18 08:13; Start 06/16/18 at 09:00; Stop 06/28/18 at 00:33; Status DC Clozapine (Clozaril) 25 mg DAILY PO Last administered on 06/27/18 08:13; Start 06/16/18 at 09:00; Stop 06/28/18 at 00:33; Status DC Estradiol (Estrace) 1 speedy MoTh VG Last administered on 06/18/18 20:05; Start 06/18/18 at 21:00 [place] Carbonate 300 mg DAILY PO Last administered on 07/13/18 08:11; Start 06/19/18 at 09:00 [place] Citrate 5.3 meq QHS PO Last administered on 2/21/19at 20:56; Start at 21:00; Stop 07/10/18 at 17:09; Status DC Levothyroxine Sodium (Synthroid) 75 mcg 1X ONCE PO Last administered on 07:53; Start 06/19/18 at 07:00; Stop 06/19/18 at 07:01; Status DC Benztropine Mesylate (Cogentin) 1.5 mg QHS PO Last administered on 06/24/18 19: 58; Start 06/22/18 at 21:00; Stop 06/25/18 at 17:05; Status DC Benztropine Mesylate (Cogentin) 1 mg QHS PO Last administered on 07/02/18 19: 43; Start 06/25/18 at 21:00; Stop 07/02/18 at 21:00; Status DC Clozapine (Clozaril) 300 mg HS PO Last administered on 07/07/18 20:31; Start 06/28/18 at 21:00; Stop 07/08/18 at 15:05; Status DC Clozapine (Clozaril) 25 mg HS PO Last administered on 07/07/18 20:31; Start at 21:00; Stop 07/08/18 at 15:05; Status DC Benztropine Mesylate (Cogentin) 0.5 mg QHS PO Last administered on 07/03/18 20 :59; Start 07/03/18 at 21:00; Stop 07/04/18 at 20:59; Status DC Clozapine (Clozaril) 300 mg BID PO ; Start 07/08/18 at 21:00; Stop 07/08/18 at 21:00; Status DC Clozapine (Clozaril) 300 mg HS PO Last administered on 07/13/18 19:56; Start 07/08/18 at 21:00 Clozapine (Clozaril) 50 mg HS PO Last administered on 07/13/18 19:56; Start at 21:00 [place] Citrate 6.67 meq HS PO Last administered on 07/13/18 20:00; Start at 21:00 Active Scripts Active Reported Hydroxyzine Hcl 10 Mg Tablet 10 Mg PO PRN Q2HR PRN Clozapine 100 Mg Tablet 1 Tab PO 1700 Remeron (Mirtazapine) 15 Mg Tablet 1 Tab PO 1700 Depakote Er (Divalproex Sodium) 500 Mg Tab.er.24h 750 Mg PO 1700 Nystatin 15 Gm Powder 1 Speedy TP BID Lidocaine 1 Each Adh..patch 1 Each TP DAILY Lotrimin Af (Clotrimazole) 12 Gm Cream..g. 1 Speedy TP BID PRN Sorbitol (Sorbitol Solution) 1 Ml Solution 30 Ml PO PRN DAILY PRN Trazodone Hcl 50 Mg Tablet 100 Mg PO QHS PRN [place]-128 (Sodium Chloride) 3.5 Gm Oint...g. 1 Speedy OP HS Lipitor (Atorvastatin Calcium) 20 Mg Tablet 20 Mg PO DAILYWSUP Levothyroxine Sodium 75 Mcg Tablet 75 Mcg PO DAILYAC Estrace (Estradiol) 42.5 Gm Cream.appl 1 Speedy VG 2X WEEK Q MON, URS Endocet 10-325 Mg Tablet (Oxycodone Hcl/Acetaminophen) 1 Each Tablet 1 Each PO PRN Q6HRS PRN Vitamin B-12 (Cyanocobalamin (Vitamin B-12)) 1,000 Mcg Tablet 1,000 Mcg PO DAILY Maalox Advanced Suspension (Mag Hydrox/Aluminum Hyd/Simeth) 355 Ml Oral.susp 15 Ml PO PRN AFTMEALHC PRN Analgesic [place] (Methyl Salicylate/Menthol) 28 Gm Oint...g. 1 Speedy TP PRN QID PRN Risperidone 1 Mg Tablet 1.5 Mg PO 1700 Refresh [place] Eye Drops (Polyvinyl Alcohol/Povidone/Pf) 1 Each Droperette 1 Each OU TID PRN Trazodone Hcl 50 Mg Tablet 100 Mg PO DAILYWSUP Norvasc (Amlodipine Besylate) 5 Mg Tablet 10 Mg PO DAILY Miralax (Polyethylene Glycol 3350) 17 Gm Powd.pack 17 Gm PO DAILY Milk Of Magnesia (Magnesium Hydroxide) 2,400 Mg/10 Ml Oral.susp 2,400 Mg PO PRN DAILY PRN Tylenol (Acetaminophen) 325 Mg Tablet 650 Mg PO PRN Q6HRS PRN I have reviewed the current psychotropics carefully including drug interactions. Risk benefit ratio favors no change other than as noted in my dictated progress note. 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
[2018-07-14 06:11] VITALS: BP 100/70
[2018-07-14] MEDS: LEVOTHYROXINE 75 MCG TABLET PO SCH (06:17)
[2018-07-14] MEDS: CYANOCOBALAMIN (VITAMIN B-12) 1,000 MCG TABLET. PO SCH (07:59)
[2018-07-14] MEDS: LITHIUM CARBONATE 300 MG TABLET PO SCH (07:59)
[2018-07-14] MEDS: amLODIPine BESYLATE 5 MG TABLET PO SCH (07:59)
[2018-07-14] MEDS: prednisoLONE ACETATE 1% OPHTH SUSPENSION 5ML BOTTLE. OD SCH (07:59)
[2018-07-14] MEDS: POLYETHYLENE GLYCOL 3350 17 GM PACKET. PO SCH (07:59)
[2018-07-14] MEDS: FUROSEMIDE 20 MG TABLET PO SCH (07:59)
--- NOTE | 2018-07-14 13:04 | NUR ---
Nursing Note: Pt sitting quietly in dining room eating breakfast, compliant w/ meds whole, up ad argelia, reports no pain.
[2018-07-14 16:26] VITALS: BP 120/86
--- NOTE | 2018-07-14 17:00 | NUR ---
ROSALINE met with pt Hardik to discuss pt receiving her assessment on Friday and waiting for that report before being able to move pt. Pt and SW also discussed having sign a form stating that he was okay with the hospital looking into pt lifetime reserve days for Medicare as pt does not have any medicare days left. Hadrik questioned how that was so; and ROSALINE explained what happens to those days during the time pt has spent inpt on behavioral health units. Hardik signed the form and will look Addendum: 07/16/18 at 1349 by WILDA WAGGONER into getting pt placed someone once the assessment comes through.
[2018-07-14] MEDS: MIRTAZAPINE 7.5 MG TABLET. PO SCH (20:44)
[2018-07-14] MEDS: LITHIUM CITRATE PO SCH (20:44)
[2018-07-14] MEDS: DIVALPROEX ER 500 MG TAB.ER.24H PO SCH (20:44)
[2018-07-14] MEDS: ATORVASTATIN CALCIUM 20 MG TABLET PO SCH (20:44)
[2018-07-14] MEDS: cloZAPine 100 MG TABLET PO SCH (20:44)
[2018-07-14] MEDS: cloZAPine 25 MG TABLET PO SCH (20:44)
--- NOTE | 2018-07-14 22:32 | PDOC ---
Exam Note: Julian Note: Please also refer to the separate dictated note~for this date of service dictated separately.~Patient seen individually. Discussed the patient with Nursing staff reviewed the chart.~Reviewed interim history and current functioning. Reviewed vital signs,~Labs/ Radiology~and current medications noted below. Continue current treatment with the changes noted in the dictated addendum note Assessment: Vital Signs: Vital Signs Date Time Temp Pulse Resp B/P (MAP) Pulse Ox O2 Delivery O2 Flow Rate FiO2 07/14/18 16:26 98.7 99 18 120/86 (97) 96 07/11/18 16:11 Room Air I&O Intake and Output 07/14/18 06:59 Intake Total 680 ml Balance 680 ml Intake Oral 680 ml Current Medications: Meds: Current Medications Acetaminophen (Tylenol) 650 mg PRN Q6HRS PRN PO PAIN / TEMP Last administered on 06/23/18 05:51; Start 06/06/18 at 04:15 Multi-Ingredient Ointment (Analgesic [place]) 1 speedy PRN QID PRN TP MUSCLE PAIN Last administered on 06/07/18at 22:53; Start 06/06/18 at 04:15 Al Hydroxide/Mg Hydroxide (Mylanta Plus Xs) 15 ml PRN AFTMEALHC PRN PO DYSPEPSIA; Start 06/06/18 at 04:15 Magnesium Hydroxide (Milk Of Magnesia) 2,400 mg PRN QHS PRN PO CONSTIPATION; Start 06/06/18 at 04:15 Amlodipine Besylate (Norvasc) 5 mg DAILY PO Last administered on 07/14/18at 07: 59; Start 06/06/18 at 09:00 Atorvastatin Calcium (Lipitor) 20 mg QHS PO Last administered on 07/14/18at 20: 44; Start 06/06/18 at 21:00 Clozapine (Clozaril) 100 mg BID94 PO Last administered on 06/15/18 07:44; Start 06/06/18 at 09:00; Stop 06/15/18 at 18:36; Status DC Clozapine (Clozaril) 50 mg BID94 PO Last administered on 06/15/18at 07:44; Start 06/06/18 at 09:00; Stop 06/15/18 at 18:36; Status DC Cyanocobalamin (Vitamin B-12) 1,000 mcg DAILY PO Last administered on 07:59; Start 06/06/18 at 09:00 Divalproex Sodium (Depakote Er) 1,000 mg QHS PO Last administered on 07/14/18 20:44; Start 06/06/18 at 21:00 Vitamin D (Vitamin D3) 50,000 unit WEEKLY PO Last administered on 07/12/18 08: 19; Start 06/07/18 at 09:00 Estradiol (Estrace) 1 speedy QMTH VG Last administered on 06/08/18 15:41; Start 06/08/18 at 16:00; Stop 06/08/18 at 21:19; Status DC Furosemide (Lasix) 20 mg DAILY PO Last administered on 07/14/18 07:59; Start 06/06/18 at 09:00 Levothyroxine Sodium (Synthroid) 75 mcg DAILY06 PO Last administered on 06:17; Start 06/06/18 at 06:00 Melatonin 6 mg PRN QHS PRN PO INSOMNIA Last administered on 06/13/18 22:23; Start 06/06/18 at 04:30 Magnesium Hydroxide (Milk Of Magnesia) 2,400 mg PRN DAILY PRN PO CONSTIPATION; Start 06/06/18 at 04:30; Status UNV Polyethylene Glycol (miraLAX) 17 gm DAILY PO Last administered on 07/14/18 07: 59; Start 06/06/18 at 09:00 Prednisolone Acetate (Pred Forte) 1 drop DAILY OD Last administered on 07:59; Start 06/06/18 at 09:00 Artificial Tears (Refresh Classic) 1 drop TID PRN PRN OU DRY EYE; Start at 04:30 Mirtazapine (Remeron) 7.5 mg QHS PO Last administered on 07/14/18 20:44; Start 06/06/18 at 21:00 Trazodone HCl (Desyrel) 100 mg PRN QHS PRN PO INSOMNIA, MAY REPEAT X3 Last administered on 06/23/18 20:10; Start 06/06/18 at 19:00 Olanzapine (ZyPREXA ZYDIS) 5 mg PRN Q2HR PRN PO PSYCHOSIS Last administered on 06/17/18 22:09; Start 06/07/18 at 14:00 Haloperidol (Haldol) 5 mg HS PO ; Start 06/07/18 at 21:00; Stop 06/07/18 at 21: 00; Status DC Haloperidol Lactate (Haldol) 5 mg DAILY IM Last administered on 06/09/18at 07:51 ; Start 06/07/18 at 19:15; Stop 06/09/18 at 09:41; Status DC Estradiol (Estrace) 1 speedy QMTH VG ; Start 06/11/18 at 21:00; Stop 06/18/18 at 11 :41; Status DC Haloperidol Lactate (Haldol) 5 mg 1X ONCE IM Last administered on 06/09/18at 09 :43; Start 06/09/18 at 09:45; Stop 06/09/18 at 09:46; Status DC Haloperidol Lactate (Haldol) 10 mg DAILY IM Last administered on 06/14/18at 08: 40; Start 06/10/18 at 09:00; Stop 06/14/18 at 13:06; Status DC Hydroxyzine HCl (Atarax) 50 mg 1X ONCE PO Last administered on 06/09/18at 17:26 ; Start 06/09/18 at 17:15; Stop 06/09/18 at 17:24; Status DC Hydroxyzine HCl (Atarax) 50 mg 1X ONCE PO Last administered on 06/09/18at 18:29 ; Start 06/09/18 at 18:25; Stop 06/09/18 at 18:26; Status DC Benztropine Mesylate (Cogentin) 1 mg QHS PO Last administered on 06/21/18at 21:57 ; Start 06/10/18 at 21:00; Stop 06/22/18 at 16:50; Status DC [place] Carbonate 300 mg HS PO Last administered on 06/13/18at 19:20; Start at 21:00; Stop 06/14/18 at 13:06; Status DC Hydroxyzine HCl (Atarax) 50 mg PRN Q2HR PRN PO SEDATION Last administered on 06/20/18at 01:30; Start 06/11/18 at 15:00 Trazodone HCl (Desyrel) 100 mg PRN 1X PRN PO insomnia Last administered on 06/12at 04:16; Start 06/12/18 at 03:15 Lorazepam (Ativan Intensol) 0.5 mg 1X ONCE SL Last administered on 06/13/18at 21:51; Start 06/13/18 at 18:15; Stop 06/13/18 at 18:16; Status DC Lorazepam (Ativan) 1 mg DAILY IM Last administered on 06/23/18 08:16; Start at 09:50; Stop 06/24/18 at 15:40; Status DC Haloperidol Lactate (Haldol) 5 mg DAILY IM Last administered on 06/16/18at 09:54 ; Start 06/15/18 at 09:00; Stop 06/18/18 at 10:45; Status DC [place] Carbonate 300 mg BID PO Last administered on 06/18/18at 08:14; Start at 21:00; Stop 06/18/18 at 15:03; Status DC Clozapine (Clozaril) 300 mg DAILY PO Last administered on 06/27/18 08:13; Start 06/16/18 at 09:00; Stop 06/28/18 at 00:33; Status DC Clozapine (Clozaril) 25 mg DAILY PO Last administered on 06/27/18 08:13; Start 06/16/18 at 09:00; Stop 06/28/18 at 00:33; Status DC Estradiol (Estrace) 1 speedy MoTh VG Last administered on 06/18/18at 20:05; Start 06/18/18 at 21:00 [place] Carbonate 300 mg DAILY PO Last administered on 07/14/18 07:59; Start 06/19/18 at 09:00 [place] Citrate 5.3 meq QHS PO Last administered on 07/09/18at 20:56; Start at 21:00; Stop 07/10/18 at 17:09; Status DC Levothyroxine Sodium (Synthroid) 75 mcg 1X ONCE PO Last administered on 07:53; Start 06/19/18 at 07:00; Stop 06/19/18 at 07:01; Status DC Benztropine Mesylate (Cogentin) 1.5 mg QHS PO Last administered on 06/24/18 19: 58; Start 06/22/18 at 21:00; Stop 06/25/18 at 17:05; Status DC Benztropine Mesylate (Cogentin) 1 mg QHS PO Last administered on 07/02/18 19: 43; Start 06/25/18 at 21:00; Stop 07/02/18 at 21:00; Status DC Clozapine (Clozaril) 300 mg HS PO Last administered on 07/07/18 20:31; Start 06/28/18 at 21:00; Stop 07/08/18 at 15:05; Status DC Clozapine (Clozaril) 25 mg HS PO Last administered on 07/07/18 20:31; Start at 21:00; Stop 07/08/18 at 15:05; Status DC Benztropine Mesylate (Cogentin) 0.5 mg QHS PO Last administered on 07/03/18 20 :59; Start 07/03/18 at 21:00; Stop 07/04/18 at 20:59; Status DC Clozapine (Clozaril) 300 mg BID PO ; Start 07/08/18 at 21:00; Stop 07/08/18 at 21:00; Status DC Clozapine (Clozaril) 300 mg HS PO Last administered on 07/14/18at 20:44; Start 07/08/18 at 21:00 Clozapine (Clozaril) 50 mg HS PO Last administered on 07/14/18 20:44; Start at 21:00 [place] Citrate 6.67 meq HS PO Last administered on 07/14/18 20:44; Start at 21:00 Active Scripts Active Reported Hydroxyzine Hcl 10 Mg Tablet 10 Mg PO PRN Q2HR PRN Clozapine 100 Mg Tablet 1 Tab PO 1700 Remeron (Mirtazapine) 15 Mg Tablet 1 Tab PO 1700 Depakote Er (Divalproex Sodium) 500 Mg Tab.er.24h 750 Mg PO 1700 Nystatin 15 Gm Powder 1 Speedy TP BID Lidocaine 1 Each Adh..patch 1 Each TP DAILY Lotrimin Af (Clotrimazole) 12 Gm Cream..g. 1 Speedy TP BID PRN Sorbitol (Sorbitol Solution) 1 Ml Solution 30 Ml PO PRN DAILY PRN Trazodone Hcl 50 Mg Tablet 100 Mg PO QHS PRN Elmer-128 (Sodium Chloride) 3.5 Gm Oint...g. 1 Speedy OP HS Lipitor (Atorvastatin Calcium) 20 Mg Tablet 20 Mg PO DAILYWSUP Levothyroxine Sodium 75 Mcg Tablet 75 Mcg PO DAILYAC Estrace (Estradiol) 42.5 Gm Cream.appl 1 Speedy VG 2X WEEK Q FRI, URS Endocet 10-325 Mg Tablet (Oxycodone Hcl/Acetaminophen) 1 Each Tablet 1 Each PO PRN Q6HRS PRN Vitamin B-12 (Cyanocobalamin (Vitamin B-12)) 1,000 Mcg Tablet 1,000 Mcg PO DAILY Maalox Advanced Suspension (Mag Hydrox/Aluminum Hyd/Simeth) 355 Ml Oral.susp 15 Ml PO PRN AFTMEALHC PRN Analgesic [place] (Methyl Salicylate/Menthol) 28 Gm Oint...g. 1 Speedy TP PRN QID PRN Risperidone 1 Mg Tablet 1.5 Mg PO 1700 Refresh Classic Eye Drops (Polyvinyl Alcohol/Povidone/Pf) 1 Each Droperette 1 Each OU TID PRN Trazodone Hcl 50 Mg Tablet 100 Mg PO DAILYWSUP Norvasc (Amlodipine Besylate) 5 Mg Tablet 10 Mg PO DAILY Miralax (Polyethylene Glycol 3350) 17 Gm Powd.pack 17 Gm PO DAILY Milk Of Magnesia (Magnesium Hydroxide) 2,400 Mg/10 Ml Oral.susp 2,400 Mg PO PRN DAILY PRN Tylenol (Acetaminophen) 325 Mg Tablet 650 Mg PO PRN Q6HRS PRN I have reviewed the current psychotropics carefully including drug interactions. Risk benefit ratio favors no change other than as noted in my dictated progress note. 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
--- NOTE | 2018-07-15 03:06 | NUR ---
Nursing Note The patient was located in the day room for her assessment and medication pass. The patient was compliant with her medications and took them whole. the patient was appropriate during all interactions with staff and peers. the patient is currently sleeping in her room.
--- NOTE | 2018-07-15 04:16 | PN ---
DATE: 07/13/2018 This late entry for 07/13/2018 covers elements not covered in my initial note. SUBJECTIVE: I met with the patient in the evening. The patient slept 7-1/4 hours previous night. She is doing better. [place] level on 07/13/2018 is 0.7 since we have increased the lithium to 250 mg at bedtime. Her did visit her. REVIEW OF SYSTEMS: No CV, , pulmonary, eye system symptoms on review. MENTAL STATUS EXAM: Oriented to herself, situation. Speech is coherent, at times a little pressured, but improved. Abstraction fair, computation impaired, language function intact, attention span short. Mood and affect appears much less labile, anxious, grandiosity is much improved. No suicidal or homicidal ideation. LABORATORY DATA: Reviewed. IMPRESSION: Unchanged from initial note. PLAN: No change from initial note. MAN Rox WATT MD DR: SANCHEZ/fredrick JOB#: [id number] / [id number]
[2018-07-15 06:07] VITALS: BP 108/57
[2018-07-15] MEDS: LEVOTHYROXINE 75 MCG TABLET PO SCH (06:36)
[2018-07-15 08:00] LABS: VAL ACID 61 mcg/mL (50-100)
[2018-07-15] MEDS: CYANOCOBALAMIN (VITAMIN B-12) 1,000 MCG TABLET. PO SCH (08:19)
[2018-07-15] MEDS: LITHIUM CARBONATE 300 MG TABLET PO SCH (08:19)
[2018-07-15] MEDS: FUROSEMIDE 20 MG TABLET PO SCH (08:19)
[2018-07-15] MEDS: amLODIPine BESYLATE 5 MG TABLET PO SCH (08:20)
[2018-07-15] MEDS: prednisoLONE ACETATE 1% OPHTH SUSPENSION 5ML BOTTLE. OD SCH (08:21)
[2018-07-15] MEDS: POLYETHYLENE GLYCOL 3350 17 GM PACKET. PO SCH (08:22)
--- NOTE | 2018-07-15 09:00 | NUR ---
Nursing Note: Pt calm, cooperative, compliant w/ meds taken whole. Reported no pain.
--- NOTE | 2018-07-15 15:00 | NUR ---
[id number] Morning Activity Therapy group charted on paper forms and filed in Pt. chart.
[2018-07-15 16:00] VITALS: BP 130/79
[2018-07-15] MEDS: cloZAPine 25 MG TABLET PO SCH (19:39)
[2018-07-15] MEDS: MIRTAZAPINE 7.5 MG TABLET. PO SCH (19:39)
[2018-07-15] MEDS: DIVALPROEX ER 500 MG TAB.ER.24H PO SCH (19:39)
[2018-07-15] MEDS: ATORVASTATIN CALCIUM 20 MG TABLET PO SCH (19:39)
[2018-07-15] MEDS: cloZAPine 100 MG TABLET PO SCH (19:40)
[2018-07-15] MEDS: LITHIUM CITRATE PO SCH (19:44)
--- NOTE | 2018-07-15 22:35 | PDOC ---
Exam Note: Julian Note: Please also refer to the separate dictated note~for this date of service dictated separately.~Patient seen individually. Discussed the patient with Nursing staff reviewed the chart.~Reviewed interim history and current functioning. Reviewed vital signs,~Labs/ Radiology~and current medications noted below. Continue current treatment with the changes noted in the dictated addendum note Assessment: Vital Signs: Vital Signs Date Time Temp Pulse Resp B/P (MAP) Pulse Ox O2 Delivery O2 Flow Rate FiO2 07/15/18 16:00 97.8 96 18 130/79 (96) 97 07/11/18 16:11 Room Air I&O Intake and Output 07/15/18 06:59 Intake Total 1680 ml Balance 1680 ml Intake Oral 1680 ml Labs: Laboratory Tests Test 07/15/18 07:18 Valproic Acid Level 61 mcg/mL (50-100) Valproic Acid Last Dose Date 07/14/18 Valproic Acid Last Dose Time 2100 Current Medications: Meds: Current Medications Acetaminophen (Tylenol) 650 mg PRN Q6HRS PRN PO PAIN / TEMP Last administered on 06/23/18 05:51; Start 06/06/18 at 04:15 Multi-Ingredient Ointment (Analgesic [place]) 1 speedy PRN QID PRN TP MUSCLE PAIN Last administered on 06/07/18 22:53; Start 06/06/18 at 04:15 Al Hydroxide/Mg Hydroxide (Mylanta Plus Xs) 15 ml PRN AFTMEALHC PRN PO DYSPEPSIA; Start 06/06/18 at 04:15 Magnesium Hydroxide (Milk Of Magnesia) 2,400 mg PRN QHS PRN PO CONSTIPATION; Start 06/06/18 at 04:15 Amlodipine Besylate (Norvasc) 5 mg DAILY PO Last administered on 07/15/18at 08: 20; Start 06/06/18 at 09:00 Atorvastatin Calcium (Lipitor) 20 mg QHS PO Last administered on 07/15/18 19: 39; Start 06/06/18 at 21:00 Clozapine (Clozaril) 100 mg [id number] PO Last administered on 06/15/18 07:44; Start 06/06/18 at 09:00; Stop 06/15/18 at 18:36; Status DC Clozapine (Clozaril) 50 mg BID94 PO Last administered on 06/15/18 07:44; Start 06/06/18 at 09:00; Stop 06/15/18 at 18:36; Status DC Cyanocobalamin (Vitamin B-12) 1,000 mcg DAILY PO Last administered on 08:19; Start 06/06/18 at 09:00 Divalproex Sodium (Depakote Er) 1,000 mg QHS PO Last administered on 07/15/18 19:39; Start 06/06/18 at 21:00 Vitamin D (Vitamin D3) 50,000 unit WEEKLY PO Last administered on 07/12/18 08: 19; Start 06/07/18 at 09:00 Estradiol (Estrace) 1 speedy QMTH VG Last administered on 06/08/18 15:41; Start 06/08/18 at 16:00; Stop 06/08/18 at 21:19; Status DC Furosemide (Lasix) 20 mg DAILY PO Last administered on 07/15/18 08:19; Start 06/06/18 at 09:00 Levothyroxine Sodium (Synthroid) 75 mcg DAILY06 PO Last administered on 06:36; Start 06/06/18 at 06:00 Melatonin 6 mg PRN QHS PRN PO INSOMNIA Last administered on 06/13/18 22:23; Start 06/06/18 at 04:30 Magnesium Hydroxide (Milk Of Magnesia) 2,400 mg PRN DAILY PRN PO CONSTIPATION; Start 06/06/18 at 04:30; Status UNV Polyethylene Glycol (miraLAX) 17 gm DAILY PO Last administered on 07/15/18 08: 22; Start 06/06/18 at 09:00 Prednisolone Acetate (Pred Forte) 1 drop DAILY OD Last administered on 08:21; Start 06/06/18 at 09:00 Artificial Tears (Refresh Classic) 1 drop TID PRN PRN OU DRY EYE; Start at 04:30 Mirtazapine (Remeron) 7.5 mg QHS PO Last administered on 07/15/18 19:39; Start 06/06/18 at 21:00 Trazodone HCl (Desyrel) 100 mg PRN QHS PRN PO INSOMNIA, MAY REPEAT X3 Last administered on 06/23/18 20:10; Start 06/06/18 at 19:00 Olanzapine (ZyPREXA ZYDIS) 5 mg PRN Q2HR PRN PO PSYCHOSIS Last administered on 06/17/18at 22:09; Start 06/07/18 at 14:00 Haloperidol (Haldol) 5 mg HS PO ; Start 06/07/18 at 21:00; Stop 06/07/18 at 21: 00; Status DC Haloperidol Lactate (Haldol) 5 mg DAILY IM Last administered on 06/09/18at 07:51 ; Start 06/07/18 at 19:15; Stop 06/09/18 at 09:41; Status DC Estradiol (Estrace) 1 speedy QMTH VG ; Start 06/11/18 at 21:00; Stop 06/18/18 at 11 :41; Status DC Haloperidol Lactate (Haldol) 5 mg 1X ONCE IM Last administered on 06/09/18at 09 :43; Start 06/09/18 at 09:45; Stop 06/09/18 at 09:46; Status DC Haloperidol Lactate (Haldol) 10 mg DAILY IM Last administered on 06/14/18at 08: 40; Start 06/10/18 at 09:00; Stop 06/14/18 at 13:06; Status DC Hydroxyzine HCl (Atarax) 50 mg 1X ONCE PO Last administered on 06/09/18at 17:26 ; Start 06/09/18 at 17:15; Stop 06/09/18 at 17:24; Status DC Hydroxyzine HCl (Atarax) 50 mg 1X ONCE PO Last administered on 06/09/18at 18:29 ; Start 06/09/18 at 18:25; Stop 06/09/18 at 18:26; Status DC Benztropine Mesylate (Cogentin) 1 mg QHS PO Last administered on 06/21/18at 21:57 ; Start 06/10/18 at 21:00; Stop 06/22/18 at 16:50; Status DC [place] Carbonate 300 mg HS PO Last administered on 06/13/18at 19:20; Start at 21:00; Stop 06/14/18 at 13:06; Status DC Hydroxyzine HCl (Atarax) 50 mg PRN Q2HR PRN PO SEDATION Last administered on 2/ 2/19at 01:30; Start 06/11/18 at 15:00 Trazodone HCl (Desyrel) 100 mg PRN 1X PRN PO insomnia Last administered on 06/12at 04:16; Start 06/12/18 at 03:15 Lorazepam (Ativan Intensol) 0.5 mg 1X ONCE SL Last administered on 06/13/18at 21:51; Start 06/13/18 at 18:15; Stop 06/13/18 at 18:16; Status DC Lorazepam (Ativan) 1 mg DAILY IM Last administered on 06/23/18at 08:16; Start at 09:50; Stop 06/24/18 at 15:40; Status DC Haloperidol Lactate (Haldol) 5 mg DAILY IM Last administered on 06/16/18at 09:54 ; Start 06/15/18 at 09:00; Stop 06/18/18 at 10:45; Status DC [place] Carbonate 300 mg BID PO Last administered on 06/18/18at 08:14; Start at 21:00; Stop 06/18/18 at 15:03; Status DC Clozapine (Clozaril) 300 mg DAILY PO Last administered on 06/27/18at 08:13; Start 06/16/18 at 09:00; Stop 06/28/18 at 00:33; Status DC Clozapine (Clozaril) 25 mg DAILY PO Last administered on 06/27/18 08:13; Start 06/16/18 at 09:00; Stop 06/28/18 at 00:33; Status DC Estradiol (Estrace) 1 speedy MoTh VG Last administered on 06/18/18at 20:05; Start 06/18/18 at 21:00 [place] Carbonate 300 mg DAILY PO Last administered on 07/15/18at 08:19; Start 06/19/18 at 09:00 [place] Citrate 5.3 meq QHS PO Last administered on 07/09/18at 20:56; Start at 21:00; Stop 07/10/18 at 17:09; Status DC Levothyroxine Sodium (Synthroid) 75 mcg 1X ONCE PO Last administered on at 07:53; Start 06/19/18 at 07:00; Stop 06/19/18 at 07:01; Status DC Benztropine Mesylate (Cogentin) 1.5 mg QHS PO Last administered on 06/24/18 19: 58; Start 06/22/18 at 21:00; Stop 06/25/18 at 17:05; Status DC Benztropine Mesylate (Cogentin) 1 mg QHS PO Last administered on 07/02/18 19: 43; Start 06/25/18 at 21:00; Stop 07/02/18 at 21:00; Status DC Clozapine (Clozaril) 300 mg HS PO Last administered on 07/07/18 20:31; Start 06/28/18 at 21:00; Stop 07/08/18 at 15:05; Status DC Clozapine (Clozaril) 25 mg HS PO Last administered on 07/07/18 20:31; Start at 21:00; Stop 07/08/18 at 15:05; Status DC Benztropine Mesylate (Cogentin) 0.5 mg QHS PO Last administered on 07/03/18at 20 :59; Start 07/03/18 at 21:00; Stop 07/04/18 at 20:59; Status DC Clozapine (Clozaril) 300 mg BID PO ; Start 07/08/18 at 21:00; Stop 07/08/18 at 21:00; Status DC Clozapine (Clozaril) 300 mg HS PO Last administered on 07/15/18 19:40; Start 07/08/18 at 21:00 Clozapine (Clozaril) 50 mg HS PO Last administered on 07/15/18 19:39; Start at 21:00 [place] Citrate 6.67 meq HS PO Last administered on 07/15/18 19:44; Start at 21:00 Active Scripts Active Reported Hydroxyzine Hcl 10 Mg Tablet 10 Mg PO PRN Q2HR PRN Clozapine 100 Mg Tablet 1 Tab PO 1700 Remeron (Mirtazapine) 15 Mg Tablet 1 Tab PO 1700 Depakote Er (Divalproex Sodium) 500 Mg Tab.er.24h 750 Mg PO 1700 Nystatin 15 Gm Powder 1 Speedy TP BID Lidocaine 1 Each Adh..patch 1 Each TP DAILY Lotrimin Af (Clotrimazole) 12 Gm Cream..g. 1 Speedy TP BID PRN Sorbitol (Sorbitol Solution) 1 Ml Solution 30 Ml PO PRN DAILY PRN Trazodone Hcl 50 Mg Tablet 100 Mg PO QHS PRN [place]mer-128 (Sodium Chloride) 3.5 Gm Oint...g. 1 Speedy OP HS Lipitor (Atorvastatin Calcium) 20 Mg Tablet 20 Mg PO DAILYWSUP Levothyroxine Sodium 75 Mcg Tablet 75 Mcg PO DAILYAC Estrace (Estradiol) 42.5 Gm Cream.appl 1 Speedy VG 2X WEEK Q FRI, URS Endocet 10-325 Mg Tablet (Oxycodone Hcl/Acetaminophen) 1 Each Tablet 1 Each PO PRN Q6HRS PRN Vitamin B-12 (Cyanocobalamin (Vitamin B-12)) 1,000 Mcg Tablet 1,000 Mcg PO DAILY Maalox Advanced Suspension (Mag Hydrox/Aluminum Hyd/Simeth) 355 Ml Oral.susp 15 Ml PO PRN AFTMEALHC PRN Analgesic [place] (Methyl Salicylate/Menthol) 28 Gm Oint...g. 1 Speedy TP PRN QID PRN Risperidone 1 Mg Tablet 1.5 Mg PO 1700 Refresh Classic Eye Drops (Polyvinyl Alcohol/Povidone/Pf) 1 Each Droperette 1 Each OU TID PRN Trazodone Hcl 50 Mg Tablet 100 Mg PO DAILYWSUP Norvasc (Amlodipine Besylate) 5 Mg Tablet 10 Mg PO DAILY Miralax (Polyethylene Glycol 3350) 17 Gm Powd.pack 17 Gm PO DAILY Milk Of Magnesia (Magnesium Hydroxide) 2,400 Mg/10 Ml Oral.susp 2,400 Mg PO PRN DAILY PRN Tylenol (Acetaminophen) 325 Mg Tablet 650 Mg PO PRN Q6HRS PRN I have reviewed the current psychotropics carefully including drug interactions. Risk benefit ratio favors no change other than as noted in my dictated progress note. 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
--- NOTE | 2018-07-15 23:41 | PN ---
DATE: 07/14/2018 PSYCHIATRIC PROGRESS NOTE This late entry 07/14/2018 covers elements not covered in my initial note. SUBJECTIVE: I met with the patient in the evening. The patient slept 7-1/2 hours previous night. [place] level 0.7. She has been pleasant, cooperative, little pressured in her speech at times, but better. REVIEW OF SYSTEMS: No CV, , pulmonary, eye system symptoms on review. She talked about her visiting her and was pleased with this. MENTAL STATUS EXAM: Oriented reasonably. Speech coherent, abstraction fair, computation impaired, language function intact. Mood and affect has improved. IMPRESSION: Unchanged from initial note. PLAN: No change from initial note. MAN Rox WATT MD DR: SANCHEZ/fredrick JOB#: [id number] / [id number]
--- NOTE | 2018-07-16 01:43 | NUR ---
Nursing Note The patient was located in the day room for her medications and assessment. The patient was compliant with her medications and took them whole. the patient was appropriate during all interactions with staff and peers. The patient is currently sleeping in her room.
[2018-07-16 05:50] VITALS: BP 107/61
[2018-07-16] MEDS: LEVOTHYROXINE 75 MCG TABLET PO SCH (06:02)
[2018-07-16] MEDS: FUROSEMIDE 20 MG TABLET PO SCH (08:14)
[2018-07-16] MEDS: LITHIUM CARBONATE 300 MG TABLET PO SCH (08:14)
[2018-07-16] MEDS: amLODIPine BESYLATE 5 MG TABLET PO SCH (08:14)
[2018-07-16] MEDS: CYANOCOBALAMIN (VITAMIN B-12) 1,000 MCG TABLET. PO SCH (08:15)
[2018-07-16] MEDS: prednisoLONE ACETATE 1% OPHTH SUSPENSION 5ML BOTTLE. OD SCH (08:15)
[2018-07-16] MEDS: POLYETHYLENE GLYCOL 3350 17 GM PACKET. PO SCH (08:15)
--- NOTE | 2018-07-16 09:26 | NUR ---
WEEKLY ACTIVITY THERAPY NOTE Date of Admission: 06/06/2018 Date of AT Assessment: 06/07/2018 Goal aimed: to increase attention span and engagement Initial Goal: Pt. will participate in all Activity Therapy groups offered (Pt. set goal for self) Goal changed 06/18/2018- Pt. will participate in at least three (Activity Therapy) groups or individual activities per week. Weekly progress towards goal: did not achieve Group participation level: minimal Behaviors observed: usually in room, not interested in groups or socializing. Participation increasing as week is progressing. Full participation on movement to music Friday and social activity Friday Plan: no change to goal
--- NOTE | 2018-07-16 09:30 | NUR ---
ROSALINE returned call to Aida at [facility] and requested that pt be seen. Or to at least discuss pt case with ROSALINE and reconsider. According to Aida's voicemail, they are denying pt due to her dementia dx.
--- NOTE | 2018-07-16 11:00 | NUR ---
Nursing Note: Pt refused to get up for breakfast; however, pt was compliant w/ medications taken whole, reported no pain, was appropriate.
--- NOTE | 2018-07-16 13:40 | NUR ---
WEEKLY NOTE: Pt is doing well on the unit. She continues to be medication compliant and has started to come out of her room more. Pt will sit in the day room; however, does not attend or participate in most groups. Pt has been approved for a level II and will need placement [facility].
[2018-07-16 16:26] VITALS: BP 111/74
[2018-07-16] MEDS: MIRTAZAPINE 7.5 MG TABLET. PO SCH (20:05)
[2018-07-16] MEDS: ATORVASTATIN CALCIUM 20 MG TABLET PO SCH (20:05)
[2018-07-16] MEDS: cloZAPine 25 MG TABLET PO SCH (20:06)
[2018-07-16] MEDS: cloZAPine 100 MG TABLET PO SCH (20:06)
[2018-07-16] MEDS: DIVALPROEX ER 500 MG TAB.ER.24H PO SCH (20:06)
[2018-07-16] MEDS: LITHIUM CITRATE PO SCH (20:09)
[2018-07-16] MEDS: ESTRADIOL 0.01% VAGINAL CREAM 42.5GM TUBE. VG SCH (21:00)
--- NOTE | 2018-07-16 22:31 | PDOC ---
Exam Note: Julian Note: Please also refer to the separate dictated note~for this date of service dictated separately.~Patient seen individually. Discussed the patient with Nursing staff reviewed the chart.~Reviewed interim history and current functioning. Reviewed vital signs,~Labs/ Radiology~and current medications noted below. Continue current treatment with the changes noted in the dictated addendum note Assessment: Vital Signs: Vital Signs Date Time Temp Pulse Resp B/P (MAP) Pulse Ox O2 Delivery O2 Flow Rate FiO2 07/16/18 16:26 98.6 108 18 111/74 (86) 98 Room Air I&O Intake and Output 07/16/18 07:00 Intake Total 1320 ml Balance 1320 ml Intake Oral 1320 ml # Voids 1 Current Medications: Meds: Current Medications Acetaminophen (Tylenol) 650 mg PRN Q6HRS PRN PO PAIN / TEMP Last administered on 06/23/18 05:51; Start 06/06/18 at 04:15 Multi-Ingredient Ointment (Analgesic Newsoms) 1 speedy PRN QID PRN TP MUSCLE PAIN Last administered on 06/07/18at 22:53; Start 06/06/18 at 04:15 Al Hydroxide/Mg Hydroxide (Mylanta Plus Xs) 15 ml PRN AFTMEALHC PRN PO DYSPEPSIA; Start 06/06/18 at 04:15 Magnesium Hydroxide (Milk Of Magnesia) 2,400 mg PRN QHS PRN PO CONSTIPATION; Start 06/06/18 at 04:15 Amlodipine Besylate (Norvasc) 5 mg DAILY PO Last administered on 07/16/18at 08: 14; Start 06/06/18 at 09:00 Atorvastatin Calcium (Lipitor) 20 mg QHS PO Last administered on 07/16/18at 20: 05; Start 06/06/18 at 21:00 Clozapine (Clozaril) 100 mg [id number] PO Last administered on 06/15/18 07:44; Start 06/06/18 at 09:00; Stop 06/15/18 at 18:36; Status DC Clozapine (Clozaril) 50 mg BID94 PO Last administered on 06/15/18at 07:44; Start 06/06/18 at 09:00; Stop 06/15/18 at 18:36; Status DC Cyanocobalamin (Vitamin B-12) 1,000 mcg DAILY PO Last administered on 08:15; Start 06/06/18 at 09:00 Divalproex Sodium (Depakote Er) 1,000 mg QHS PO Last administered on 07/16/18 20:06; Start 06/06/18 at 21:00 Vitamin D (Vitamin D3) 50,000 unit WEEKLY PO Last administered on 07/12/18 08: 19; Start 06/07/18 at 09:00 Estradiol (Estrace) 1 speedy QMTH VG Last administered on 06/08/18 15:41; Start 06/08/18 at 16:00; Stop 06/08/18 at 21:19; Status DC Furosemide (Lasix) 20 mg DAILY PO Last administered on 07/16/18 08:14; Start 06/06/18 at 09:00 Levothyroxine Sodium (Synthroid) 75 mcg DAILY06 PO Last administered on 06:02; Start 06/06/18 at 06:00 Melatonin 6 mg PRN QHS PRN PO INSOMNIA Last administered on 06/13/18 22:23; Start 06/06/18 at 04:30 Magnesium Hydroxide (Milk Of Magnesia) 2,400 mg PRN DAILY PRN PO CONSTIPATION; Start 06/06/18 at 04:30; Status UNV Polyethylene Glycol (miraLAX) 17 gm DAILY PO Last administered on 07/16/18 08: 15; Start 06/06/18 at 09:00 Prednisolone Acetate (Pred Forte) 1 drop DAILY OD Last administered on 08:15; Start 06/06/18 at 09:00 Artificial Tears (Refresh Classic) 1 drop TID PRN PRN OU DRY EYE; Start at 04:30 Mirtazapine (Remeron) 7.5 mg QHS PO Last administered on 07/16/18 20:05; Start 06/06/18 at 21:00 Trazodone HCl (Desyrel) 100 mg PRN QHS PRN PO INSOMNIA, MAY REPEAT X3 Last administered on 06/23/18 20:10; Start 06/06/18 at 19:00 Olanzapine (ZyPREXA ZYDIS) 5 mg PRN Q2HR PRN PO PSYCHOSIS Last administered on 06/17/18 22:09; Start 06/07/18 at 14:00 Haloperidol (Haldol) 5 mg HS PO ; Start 06/07/18 at 21:00; Stop 06/07/18 at 21: 00; Status DC Haloperidol Lactate (Haldol) 5 mg DAILY IM Last administered on 06/09/18at 07:51 ; Start 06/07/18 at 19:15; Stop 06/09/18 at 09:41; Status DC Estradiol (Estrace) 1 speedy QMTH VG ; Start 06/11/18 at 21:00; Stop 06/18/18 at 11 :41; Status DC Haloperidol Lactate (Haldol) 5 mg 1X ONCE IM Last administered on 06/09/18at 09 :43; Start 06/09/18 at 09:45; Stop 06/09/18 at 09:46; Status DC Haloperidol Lactate (Haldol) 10 mg DAILY IM Last administered on 06/14/18at 08: 40; Start 06/10/18 at 09:00; Stop 06/14/18 at 13:06; Status DC Hydroxyzine HCl (Atarax) 50 mg 1X ONCE PO Last administered on 06/09/18at 17:26 ; Start 06/09/18 at 17:15; Stop 06/09/18 at 17:24; Status DC Hydroxyzine HCl (Atarax) 50 mg 1X ONCE PO Last administered on 06/09/18at 18:29 ; Start 06/09/18 at 18:25; Stop 06/09/18 at 18:26; Status DC Benztropine Mesylate (Cogentin) 1 mg QHS PO Last administered on 06/21/18at 21:57 ; Start 06/10/18 at 21:00; Stop 06/22/18 at 16:50; Status DC [place] Carbonate 300 mg HS PO Last administered on 06/13/18at 19:20; Start at 21:00; Stop 06/14/18 at 13:06; Status DC Hydroxyzine HCl (Atarax) 50 mg PRN Q2HR PRN PO SEDATION Last administered on 06/20/18at 01:30; Start 06/11/18 at 15:00 Trazodone HCl (Desyrel) 100 mg PRN 1X PRN PO insomnia Last administered on 06/12at 04:16; Start 06/12/18 at 03:15 Lorazepam (Ativan Intensol) 0.5 mg 1X ONCE SL Last administered on 06/13/18at 21:51; Start 06/13/18 at 18:15; Stop 06/13/18 at 18:16; Status DC Lorazepam (Ativan) 1 mg DAILY IM Last administered on 06/23/18 08:16; Start at 09:50; Stop 06/24/18 at 15:40; Status DC Haloperidol Lactate (Haldol) 5 mg DAILY IM Last administered on 06/16/18at 09:54 ; Start 06/15/18 at 09:00; Stop 06/18/18 at 10:45; Status DC [place] Carbonate 300 mg BID PO Last administered on 06/18/18 08:14; Start at 21:00; Stop 06/18/18 at 15:03; Status DC Clozapine (Clozaril) 300 mg DAILY PO Last administered on 06/27/18 08:13; Start 06/16/18 at 09:00; Stop 06/28/18 at 00:33; Status DC Clozapine (Clozaril) 25 mg DAILY PO Last administered on 06/27/18 08:13; Start 06/16/18 at 09:00; Stop 06/28/18 at 00:33; Status DC Estradiol (Estrace) 1 speedy MoTh VG Last administered on 06/18/18at 20:05; Start 06/18/18 at 21:00 [place] Carbonate 300 mg DAILY PO Last administered on 07/16/18 08:14; Start 06/19/18 at 09:00 [place] Citrate 5.3 meq QHS PO Last administered on 07/09/18at 20:56; Start at 21:00; Stop 07/10/18 at 17:09; Status DC Levothyroxine Sodium (Synthroid) 75 mcg 1X ONCE PO Last administered on 07:53; Start 06/19/18 at 07:00; Stop 06/19/18 at 07:01; Status DC Benztropine Mesylate (Cogentin) 1.5 mg QHS PO Last administered on 06/24/18 19: 58; Start 06/22/18 at 21:00; Stop 06/25/18 at 17:05; Status DC Benztropine Mesylate (Cogentin) 1 mg QHS PO Last administered on 07/02/18 19: 43; Start 06/25/18 at 21:00; Stop 07/02/18 at 21:00; Status DC Clozapine (Clozaril) 300 mg HS PO Last administered on 07/07/18 20:31; Start 06/28/18 at 21:00; Stop 07/08/18 at 15:05; Status DC Clozapine (Clozaril) 25 mg HS PO Last administered on 07/07/18 20:31; Start at 21:00; Stop 07/08/18 at 15:05; Status DC Benztropine Mesylate (Cogentin) 0.5 mg QHS PO Last administered on 07/03/18 20 :59; Start 07/03/18 at 21:00; Stop 07/04/18 at 20:59; Status DC Clozapine (Clozaril) 300 mg BID PO ; Start 07/08/18 at 21:00; Stop 07/08/18 at 21:00; Status DC Clozapine (Clozaril) 300 mg HS PO Last administered on 07/16/18 20:06; Start 07/08/18 at 21:00 Clozapine (Clozaril) 50 mg HS PO Last administered on 07/16/18 20:06; Start at 21:[address] [place] Citrate 6.67 meq HS PO Last administered on 07/16/18 20:09; Start at 21:00 Active Scripts Active Reported Hydroxyzine Hcl 10 Mg Tablet 10 Mg PO PRN Q2HR PRN Clozapine 100 Mg Tablet 1 Tab PO 1700 Remeron (Mirtazapine) 15 Mg Tablet 1 Tab PO 1700 Depakote Er (Divalproex Sodium) 500 Mg Tab.er.24h 750 Mg PO 1700 Nystatin 15 Gm Powder 1 Speedy TP BID Lidocaine 1 Each Adh..patch 1 Each TP DAILY Lotrimin Af (Clotrimazole) 12 Gm Cream..g. 1 Speedy TP BID PRN Sorbitol (Sorbitol Solution) 1 Ml Solution 30 Ml PO PRN DAILY PRN Trazodone Hcl 50 Mg Tablet 100 Mg PO QHS PRN Elmer-128 (Sodium Chloride) 3.5 Gm Oint...g. 1 Speedy OP HS Lipitor (Atorvastatin Calcium) 20 Mg Tablet 20 Mg PO DAILYWSUP Levothyroxine Sodium 75 Mcg Tablet 75 Mcg PO DAILYAC Estrace (Estradiol) 42.5 Gm Cream.appl 1 Speedy VG 2X WEEK Q FRI, URS Endocet 10-325 Mg Tablet (Oxycodone Hcl/Acetaminophen) 1 Each Tablet 1 Each PO PRN Q6HRS PRN Vitamin B-12 (Cyanocobalamin (Vitamin B-12)) 1,000 Mcg Tablet 1,000 Mcg PO DAILY Maalox Advanced Suspension (Mag Hydrox/Aluminum Hyd/Simeth) 355 Ml Oral.susp 15 Ml PO PRN AFTMEALHC PRN Analgesic Newsoms (Methyl Salicylate/Menthol) 28 Gm Oint...g. 1 Speedy TP PRN QID PRN Risperidone 1 Mg Tablet 1.5 Mg PO 1700 Refresh Classic Eye Drops (Polyvinyl Alcohol/Povidone/Pf) 1 Each Droperette 1 Each OU TID PRN Trazodone Hcl 50 Mg Tablet 100 Mg PO DAILYWSUP Norvasc (Amlodipine Besylate) 5 Mg Tablet 10 Mg PO DAILY Miralax (Polyethylene Glycol 3350) 17 Gm Powd.pack 17 Gm PO DAILY Milk Of Magnesia (Magnesium Hydroxide) 2,400 Mg/10 Ml Oral.susp 2,400 Mg PO PRN DAILY PRN Tylenol (Acetaminophen) 325 Mg Tablet 650 Mg PO PRN Q6HRS PRN I have reviewed the current psychotropics carefully including drug interactions. Risk benefit ratio favors no change other than as noted in my dictated progress note. 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
--- NOTE | 2018-07-17 02:40 | NUR ---
Nursing Note The patient was located in the day room watching TV when approached for her medication pass and assessment. The patient was compliant with her medications and took them whole. The patient was appropriate during interactions with this nurse and peers. The patient is currently sleeping in her room.
[2018-07-17] MEDS: LEVOTHYROXINE 75 MCG TABLET PO SCH (05:23)
[2018-07-17 06:15] VITALS: BP 115/73
[2018-07-17] MEDS: FUROSEMIDE 20 MG TABLET PO SCH (07:34)
[2018-07-17] MEDS: CYANOCOBALAMIN (VITAMIN B-12) 1,000 MCG TABLET. PO SCH (07:35)
[2018-07-17] MEDS: POLYETHYLENE GLYCOL 3350 17 GM PACKET. PO SCH (07:35)
[2018-07-17] MEDS: LITHIUM CARBONATE 300 MG TABLET PO SCH (07:35)
[2018-07-17] MEDS: amLODIPine BESYLATE 5 MG TABLET PO SCH (07:35)
[2018-07-17] MEDS: prednisoLONE ACETATE 1% OPHTH SUSPENSION 5ML BOTTLE. OD SCH (07:36)
--- NOTE | 2018-07-17 15:43 | NUR ---
Patient tolerated AM medication pass well, took medications whole without difficulty. Patient alert and oriented x 4, able to make needs known. Patient has been in day room today, interacting with staff and therapy staff.
[2018-07-17 15:52] VITALS: BP 143/87
[2018-07-17] MEDS: cloZAPine 100 MG TABLET PO SCH (19:39)
[2018-07-17] MEDS: LITHIUM CITRATE PO SCH (19:39)
[2018-07-17] MEDS: DIVALPROEX ER 500 MG TAB.ER.24H PO SCH (19:40)
[2018-07-17] MEDS: cloZAPine 25 MG TABLET PO SCH (19:40)
[2018-07-17] MEDS: ATORVASTATIN CALCIUM 20 MG TABLET PO SCH (19:41)
[2018-07-17] MEDS: MIRTAZAPINE 7.5 MG TABLET. PO SCH (19:42)
--- NOTE | 2018-07-17 21:53 | PDOC ---
Exam Note: Julian Note: Please also refer to the separate dictated note~for this date of service dictated separately.~Patient seen individually. Discussed the patient with Nursing staff reviewed the chart.~Reviewed interim history and current functioning. Reviewed vital signs,~Labs/ Radiology~and current medications noted below. Continue current treatment with the changes noted in the dictated addendum note Assessment: Vital Signs: Vital Signs Date Time Temp Pulse Resp B/P (MAP) Pulse Ox O2 Delivery O2 Flow Rate FiO2 07/17/18 15:52 98.8 95 19 143/87 (105) 99 Room Air I&O Intake and Output 07/17/18 06:59 Intake Total 360 ml Balance 360 ml Intake Oral 360 ml # Voids 1 Current Medications: Meds: Current Medications Acetaminophen (Tylenol) 650 mg PRN Q6HRS PRN PO PAIN / TEMP Last administered on 06/23/18at 05:51; Start 06/06/18 at 04:15 Multi-Ingredient Ointment (Analgesic [employer]) 1 speedy PRN QID PRN TP MUSCLE PAIN Last administered on 06/07/18at 22:53; Start 06/06/18 at 04:15 Al Hydroxide/Mg Hydroxide (Mylanta Plus Xs) 15 ml PRN AFTMEALHC PRN PO DYSPEPSIA; Start 06/06/18 at 04:15 Magnesium Hydroxide (Milk Of Magnesia) 2,400 mg PRN QHS PRN PO CONSTIPATION; Start 06/06/18 at 04:15 Amlodipine Besylate (Norvasc) 5 mg DAILY PO Last administered on 07/17/18at 07:35 ; Start 06/06/18 at 09:00 Atorvastatin Calcium (Lipitor) 20 mg QHS PO Last administered on 07/17/18at 19:41 ; Start 06/06/18 at 21:00 Clozapine (Clozaril) 100 mg [id number] PO Last administered on 06/15/18 07:44; Start 06/06/18 at 09:00; Stop 06/15/18 at 18:36; Status DC Clozapine (Clozaril) 50 mg BID94 PO Last administered on 06/15/18 07:44; Start 06/06/18 at 09:00; Stop 06/15/18 at 18:36; Status DC Cyanocobalamin (Vitamin B-12) 1,000 mcg DAILY PO Last administered on 07/17/18 07:35; Start 06/06/18 at 09:00 Divalproex Sodium (Depakote Er) 1,000 mg QHS PO Last administered on 07/17/18 19:40; Start 06/06/18 at 21:00 Vitamin D (Vitamin D3) 50,000 unit WEEKLY PO Last administered on 07/12/18 08: 19; Start 06/07/18 at 09:00 Estradiol (Estrace) 1 speedy QMTH VG Last administered on 06/08/18 15:41; Start 06/08/18 at 16:00; Stop 06/08/18 at 21:19; Status DC Furosemide (Lasix) 20 mg DAILY PO Last administered on 07/17/18 07:34; Start at 09:00 Levothyroxine Sodium (Synthroid) 75 mcg DAILY06 PO Last administered on 05:23; Start 06/06/18 at 06:00 Melatonin 6 mg PRN QHS PRN PO INSOMNIA Last administered on 06/13/18 22:23; Start 06/06/18 at 04:30 Magnesium Hydroxide (Milk Of Magnesia) 2,400 mg PRN DAILY PRN PO CONSTIPATION; Start 06/06/18 at 04:30; Status UNV Polyethylene Glycol (miraLAX) 17 gm DAILY PO Last administered on 07/17/18 07: 35; Start 06/06/18 at 09:00 Prednisolone Acetate (Pred Forte) 1 drop DAILY OD Last administered on 07:36; Start 06/06/18 at 09:00 Artificial Tears (Refresh Classic) 1 drop TID PRN PRN OU DRY EYE; Start at 04:30 Mirtazapine (Remeron) 7.5 mg QHS PO Last administered on 07/17/18 19:42; Start 06/06/18 at 21:00 Trazodone HCl (Desyrel) 100 mg PRN QHS PRN PO INSOMNIA, MAY REPEAT X3 Last administered on 06/23/18 20:10; Start 06/06/18 at 19:00 Olanzapine (ZyPREXA ZYDIS) 5 mg PRN Q2HR PRN PO PSYCHOSIS Last administered on 06/17/18 22:09; Start 06/07/18 at 14:00 Haloperidol (Haldol) 5 mg HS PO ; Start 06/07/18 at 21:00; Stop 06/07/18 at 21: 00; Status DC Haloperidol Lactate (Haldol) 5 mg DAILY IM Last administered on 06/09/18at 07:51 ; Start 06/07/18 at 19:15; Stop 06/09/18 at 09:41; Status DC Estradiol (Estrace) 1 speedy QMTH VG ; Start 06/11/18 at 21:00; Stop 06/18/18 at 11 :41; Status DC Haloperidol Lactate (Haldol) 5 mg 1X ONCE IM Last administered on 06/09/18at 09 :43; Start 06/09/18 at 09:45; Stop 06/09/18 at 09:46; Status DC Haloperidol Lactate (Haldol) 10 mg DAILY IM Last administered on 06/14/18at 08: 40; Start 06/10/18 at 09:00; Stop 06/14/18 at 13:06; Status DC Hydroxyzine HCl (Atarax) 50 mg 1X ONCE PO Last administered on 06/09/18at 17:26 ; Start 06/09/18 at 17:15; Stop 06/09/18 at 17:24; Status DC Hydroxyzine HCl (Atarax) 50 mg 1X ONCE PO Last administered on 06/09/18at 18:29 ; Start 06/09/18 at 18:25; Stop 06/09/18 at 18:26; Status DC Benztropine Mesylate (Cogentin) 1 mg QHS PO Last administered on 06/21/18at 21:57 ; Start 06/10/18 at 21:00; Stop 06/22/18 at 16:50; Status DC [place] Carbonate 300 mg HS PO Last administered on 06/13/18at 19:20; Start at 21:00; Stop 06/14/18 at 13:06; Status DC Hydroxyzine HCl (Atarax) 50 mg PRN Q2HR PRN PO SEDATION Last administered on 06/20/18at 01:30; Start 06/11/18 at 15:00 Trazodone HCl (Desyrel) 100 mg PRN 1X PRN PO insomnia Last administered on 06/12at 04:16; Start 06/12/18 at 03:15 Lorazepam (Ativan Intensol) 0.5 mg 1X ONCE SL Last administered on 06/13/18 21:51; Start 06/13/18 at 18:15; Stop 06/13/18 at 18:16; Status DC Lorazepam (Ativan) 1 mg DAILY IM Last administered on 06/23/18 08:16; Start at 09:50; Stop 06/24/18 at 15:40; Status DC Haloperidol Lactate (Haldol) 5 mg DAILY IM Last administered on 06/16/18 09:54 ; Start 06/15/18 at 09:00; Stop 06/18/18 at 10:45; Status DC [place] Carbonate 300 mg BID PO Last administered on 06/18/18 08:14; Start at 21:00; Stop 06/18/18 at 15:03; Status DC Clozapine (Clozaril) 300 mg DAILY PO Last administered on 06/27/18 08:13; Start 06/16/18 at 09:00; Stop 06/28/18 at 00:33; Status DC Clozapine (Clozaril) 25 mg DAILY PO Last administered on 06/27/18 08:13; Start 06/16/18 at 09:00; Stop 06/28/18 at 00:33; Status DC Estradiol (Estrace) 1 speedy MoTh VG Last administered on 06/18/18at 20:05; Start 06/18/18 at 21:00 [place] Carbonate 300 mg DAILY PO Last administered on 07/17/18 07:35; Start at 09:00 [place] Citrate 5.3 meq QHS PO Last administered on 07/09/18 20:56; Start at 21:00; Stop 07/10/18 at 17:09; Status DC Levothyroxine Sodium (Synthroid) 75 mcg 1X ONCE PO Last administered on 07:53; Start 06/19/18 at 07:00; Stop 06/19/18 at 07:01; Status DC Benztropine Mesylate (Cogentin) 1.5 mg QHS PO Last administered on 06/24/18 19: 58; Start 06/22/18 at 21:00; Stop 06/25/18 at 17:05; Status DC Benztropine Mesylate (Cogentin) 1 mg QHS PO Last administered on 07/02/18 19: 43; Start 06/25/18 at 21:00; Stop 07/02/18 at 21:00; Status DC Clozapine (Clozaril) 300 mg HS PO Last administered on 07/07/18 20:31; Start 06/28/18 at 21:00; Stop 07/08/18 at 15:05; Status DC Clozapine (Clozaril) 25 mg HS PO Last administered on 07/07/18 20:31; Start at 21:00; Stop 07/08/18 at 15:05; Status DC Benztropine Mesylate (Cogentin) 0.5 mg QHS PO Last administered on 07/03/18 20 :59; Start 07/03/18 at 21:00; Stop 07/04/18 at 20:59; Status DC Clozapine (Clozaril) 300 mg BID PO ; Start 07/08/18 at 21:00; Stop 07/08/18 at 21:00; Status DC Clozapine (Clozaril) 300 mg HS PO Last administered on 07/17/18 19:39; Start at 21:00 Clozapine (Clozaril) 50 mg HS PO Last administered on 07/17/18 19:40; Start at 21:00 [place] Citrate 6.67 meq HS PO Last administered on 07/17/18 19:39; Start 07/10 at 21:00 Active Scripts Active Reported Hydroxyzine Hcl 10 Mg Tablet 10 Mg PO PRN Q2HR PRN Clozapine 100 Mg Tablet 1 Tab PO 1700 Remeron (Mirtazapine) 15 Mg Tablet 1 Tab PO 1700 Depakote Er (Divalproex Sodium) 500 Mg Tab.er.24h 750 Mg PO 1700 Nystatin 15 Gm Powder 1 Speedy TP BID Lidocaine 1 Each Adh..patch 1 Each TP DAILY Lotrimin Af (Clotrimazole) 12 Gm Cream..g. 1 Speedy TP BID PRN Sorbitol (Sorbitol Solution) 1 Ml Solution 30 Ml PO PRN DAILY PRN Trazodone Hcl 50 Mg Tablet 100 Mg PO QHS PRN [place]-128 (Sodium Chloride) 3.5 Gm Oint...g. 1 Speedy OP HS Lipitor (Atorvastatin Calcium) 20 Mg Tablet 20 Mg PO DAILYWSUP Levothyroxine Sodium 75 Mcg Tablet 75 Mcg PO DAILYAC Estrace (Estradiol) 42.5 Gm Cream.appl 1 Speedy VG 2X WEEK Q FRI, URS Endocet 10-325 Mg Tablet (Oxycodone Hcl/Acetaminophen) 1 Each Tablet 1 Each PO PRN Q6HRS PRN Vitamin B-12 (Cyanocobalamin (Vitamin B-12)) 1,000 Mcg Tablet 1,000 Mcg PO DAILY Maalox Advanced Suspension (Mag Hydrox/Aluminum Hyd/Simeth) 355 Ml Oral.susp 15 Ml PO PRN AFTMEALHC PRN Analgesic [employer] (Methyl Salicylate/Menthol) 28 Gm Oint...g. 1 Speedy TP PRN QID PRN Risperidone 1 Mg Tablet 1.5 Mg PO 1700 Refresh Classic Eye Drops (Polyvinyl Alcohol/Povidone/Pf) 1 Each Droperette 1 Each OU TID PRN Trazodone Hcl 50 Mg Tablet 100 Mg PO DAILYWSUP Norvasc (Amlodipine Besylate) 5 Mg Tablet 10 Mg PO DAILY Miralax (Polyethylene Glycol 3350) 17 Gm Powd.pack 17 Gm PO DAILY Milk Of Magnesia (Magnesium Hydroxide) 2,400 Mg/10 Ml Oral.susp 2,400 Mg PO PRN DAILY PRN Tylenol (Acetaminophen) 325 Mg Tablet 650 Mg PO PRN Q6HRS PRN I have reviewed the current psychotropics carefully including drug interactions. Risk benefit ratio favors no change other than as noted in my dictated progress note. 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
--- NOTE | 2018-07-17 23:48 | PN ---
DATE: 07/16/2018 PSYCHIATRIC PROGRESS NOTE This late entry of 07/16/2018 covers elements not covered in my initial note. SUBJECTIVE: I met with the patient in the evening. The patient was also staffed at a treatment team meeting with the entire team earlier in the day. The patient slept 7-1/2 hours, appetite 100%, much less sedated, very appropriate, interactive. Discussed with social service staff about placement in level 2 facility, which has been initiated. REVIEW OF SYSTEMS: No CV, , pulmonary, eye system symptoms on review. MENTAL STATUS EXAM: Reasonably oriented. Speech is coherent, abstraction fair, computation impaired, language function intact. Mood and affect are improved. IMPRESSION: Unchanged from initial note. PLAN: No change from initial note. MAN Rox WATT MD DR: SANCHEZ/fredrick JOB#: [id number] / [id number]
--- NOTE | 2018-07-17 23:50 | PN ---
DATE: 07/15/2018 PSYCHIATRIC PROGRESS NOTE This late entry of 07/15/2018, covers elements not covered in my initial note. SUBJECTIVE: I met with the patient in the evening. The patient slept 7 hours previous night. She has been quite appropriate. Valproic acid level is therapeutic at 61. REVIEW OF SYSTEMS: No CV, , pulmonary, eye, ENT system symptoms on review. MENTAL STATUS EXAM: The patient is reasonably oriented. Speech is coherent, at times pressured, very appropriate in her interactions. Abstraction fair, computation impaired, language function intact, attention span short. Mood and affect somewhat withdrawn, but generally appropriate. LABORATORY DATA: Reviewed. IMPRESSION: Unchanged from initial note. PLAN: No change from initial note. MAN Rox WATT MD DR: SANCHEZ/fredrick JOB#: [id number] / [id number]
--- NOTE | 2018-07-18 00:36 | NUR ---
Nursing Note The patient was located in the day room for her medications and assessment. The patient took her medications whole. The patient was appropriate during all interactions with staff and peers. The patient is currently sleeping in her room.
[2018-07-18 05:35] VITALS: BP 136/83
[2018-07-18] MEDS: LEVOTHYROXINE 75 MCG TABLET PO SCH (06:14)
[2018-07-18] MEDS: prednisoLONE ACETATE 1% OPHTH SUSPENSION 5ML BOTTLE. OD SCH (09:10)
[2018-07-18] MEDS: CYANOCOBALAMIN (VITAMIN B-12) 1,000 MCG TABLET. PO SCH (09:10)
[2018-07-18] MEDS: FUROSEMIDE 20 MG TABLET PO SCH (09:10)
[2018-07-18] MEDS: POLYETHYLENE GLYCOL 3350 17 GM PACKET. PO SCH (09:11)
[2018-07-18] MEDS: LITHIUM CARBONATE 300 MG TABLET PO SCH (09:11)
[2018-07-18] MEDS: amLODIPine BESYLATE 5 MG TABLET PO SCH (09:11)
[2018-07-18 15:35] VITALS: BP 117/66
--- NOTE | 2018-07-18 17:37 | NUR ---
Pt has been calm and cooperative all day. Was in day room for about an hour, otherwise has been in bed. Compliant with medications and pleasant with staff. Will continue to monitor.
[2018-07-18] MEDS: cloZAPine 100 MG TABLET PO SCH (19:26)
[2018-07-18] MEDS: ATORVASTATIN CALCIUM 20 MG TABLET PO SCH (19:26)
[2018-07-18] MEDS: MIRTAZAPINE 7.5 MG TABLET. PO SCH (19:26)
[2018-07-18] MEDS: cloZAPine 25 MG TABLET PO SCH (19:26)
[2018-07-18] MEDS: DIVALPROEX ER 500 MG TAB.ER.24H PO SCH (19:26)
[2018-07-18] MEDS: LITHIUM CITRATE PO SCH (19:26)
--- NOTE | 2018-07-18 21:56 | PDOC ---
Exam Note: Julian Note: Please also refer to the separate dictated note~for this date of service dictated separately.~Patient seen individually. Discussed the patient with Nursing staff reviewed the chart.~Reviewed interim history and current functioning. Reviewed vital signs,~Labs/ Radiology~and current medications noted below. Continue current treatment with the changes noted in the dictated addendum note Assessment: Vital Signs: Vital Signs Date Time Temp Pulse Resp B/P (MAP) Pulse Ox O2 Delivery O2 Flow Rate FiO2 07/18/18 15:35 97.2 78 19 117/66 (83) 98 07/17/18 15:52 Room Air I&O Intake and Output 07/18/18 06:59 Intake Total 960 ml Balance 960 ml Intake Oral 960 ml Current Medications: Meds: Current Medications Acetaminophen (Tylenol) 650 mg PRN Q6HRS PRN PO PAIN / TEMP Last administered on 06/23/18 05:51; Start 06/06/18 at 04:15 Multi-Ingredient Ointment (Analgesic [place]) 1 speedy PRN QID PRN TP MUSCLE PAIN Last administered on 06/07/18at 22:53; Start 06/06/18 at 04:15 Al Hydroxide/Mg Hydroxide (Mylanta Plus Xs) 15 ml PRN AFTMEALHC PRN PO DYSPEPSIA; Start 06/06/18 at 04:15 Magnesium Hydroxide (Milk Of Magnesia) 2,400 mg PRN QHS PRN PO CONSTIPATION; Start 06/06/18 at 04:15 Amlodipine Besylate (Norvasc) 5 mg DAILY PO Last administered on 07/18/18 09:11 ; Start 06/06/18 at 09:00 Atorvastatin Calcium (Lipitor) 20 mg QHS PO Last administered on 07/18/18 19:26 ; Start 06/06/18 at 21:00 Clozapine (Clozaril) 100 mg [id number] PO Last administered on 06/15/18 07:44; Start 06/06/18 at 09:00; Stop 06/15/18 at 18:36; Status DC Clozapine (Clozaril) 50 mg [id number] PO Last administered on 06/15/18at 07:44; Start 06/06/18 at 09:00; Stop 06/15/18 at 18:36; Status DC Cyanocobalamin (Vitamin B-12) 1,000 mcg DAILY PO Last administered on 07/18/18 09:10; Start 06/06/18 at 09:00 Divalproex Sodium (Depakote Er) 1,000 mg QHS PO Last administered on 07/18/18 19:26; Start 06/06/18 at 21:00 Vitamin D (Vitamin D3) 50,000 unit WEEKLY PO Last administered on 07/12/18 08: 19; Start 06/07/18 at 09:00 Estradiol (Estrace) 1 speedy QMTH VG Last administered on 06/08/18 15:41; Start 06/08/18 at 16:00; Stop 06/08/18 at 21:19; Status DC Furosemide (Lasix) 20 mg DAILY PO Last administered on 07/18/18 09:10; Start at 09:00 Levothyroxine Sodium (Synthroid) 75 mcg DAILY06 PO Last administered on 06:14; Start 06/06/18 at 06:00 Melatonin 6 mg PRN QHS PRN PO INSOMNIA Last administered on 06/13/18 22:23; Start 06/06/18 at 04:30 Magnesium Hydroxide (Milk Of Magnesia) 2,400 mg PRN DAILY PRN PO CONSTIPATION; Start 06/06/18 at 04:30; Status UNV Polyethylene Glycol (miraLAX) 17 gm DAILY PO Last administered on 07/18/18 09: 11; Start 06/06/18 at 09:00 Prednisolone Acetate (Pred Forte) 1 drop DAILY OD Last administered on 09:10; Start 06/06/18 at 09:00 Artificial Tears (Refresh Classic) 1 drop TID PRN PRN OU DRY EYE; Start at 04:30 Mirtazapine (Remeron) 7.5 mg QHS PO Last administered on 07/18/18 19:26; Start 06/06/18 at 21:00 Trazodone HCl (Desyrel) 100 mg PRN QHS PRN PO INSOMNIA, MAY REPEAT X3 Last administered on 06/23/18 20:10; Start 06/06/18 at 19:00 Olanzapine (ZyPREXA ZYDIS) 5 mg PRN Q2HR PRN PO PSYCHOSIS Last administered on 1/30/19at 22:09; Start 06/07/18 at 14:00 Haloperidol (Haldol) 5 mg HS PO ; Start 06/07/18 at 21:00; Stop 06/07/18 at 21: 00; Status DC Haloperidol Lactate (Haldol) 5 mg DAILY IM Last administered on 06/09/18at 07:51 ; Start 06/07/18 at 19:15; Stop 06/09/18 at 09:41; Status DC Estradiol (Estrace) 1 speeyd QMTH VG ; Start 06/11/18 at 21:00; Stop 06/18/18 at 11 :41; Status DC Haloperidol Lactate (Haldol) 5 mg 1X ONCE IM Last administered on 06/09/18at 09 :43; Start 06/09/18 at 09:45; Stop 06/09/18 at 09:46; Status DC Haloperidol Lactate (Haldol) 10 mg DAILY IM Last administered on 06/14/18at 08: 40; Start 06/10/18 at 09:00; Stop 06/14/18 at 13:06; Status DC Hydroxyzine HCl (Atarax) 50 mg 1X ONCE PO Last administered on 06/09/18at 17:26 ; Start 06/09/18 at 17:15; Stop 06/09/18 at 17:24; Status DC Hydroxyzine HCl (Atarax) 50 mg 1X ONCE PO Last administered on 06/09/18at 18:29 ; Start 06/09/18 at 18:25; Stop 06/09/18 at 18:26; Status DC Benztropine Mesylate (Cogentin) 1 mg QHS PO Last administered on 06/21/18at 21:57 ; Start 06/10/18 at 21:00; Stop 06/22/18 at 16:50; Status DC [place] Carbonate 300 mg HS PO Last administered on 06/13/18at 19:20; Start at 21:00; Stop 06/14/18 at 13:06; Status DC Hydroxyzine HCl (Atarax) 50 mg PRN Q2HR PRN PO SEDATION Last administered on 01:30; Start 06/11/18 at 15:00 Trazodone HCl (Desyrel) 100 mg PRN 1X PRN PO insomnia Last administered on 06/12at 04:16; Start 06/12/18 at 03:15 Lorazepam (Ativan Intensol) 0.5 mg 1X ONCE SL Last administered on 06/13/18at 21:51; Start 06/13/18 at 18:15; Stop 06/13/18 at 18:16; Status DC Lorazepam (Ativan) 1 mg DAILY IM Last administered on 06/23/18 08:16; Start at 09:50; Stop 06/24/18 at 15:40; Status DC Haloperidol Lactate (Haldol) 5 mg DAILY IM Last administered on 06/16/18at 09:54 ; Start 06/15/18 at 09:00; Stop 06/18/18 at 10:45; Status DC [place] Carbonate 300 mg BID PO Last administered on 06/18/18 08:14; Start at 21:00; Stop 06/18/18 at 15:03; Status DC Clozapine (Clozaril) 300 mg DAILY PO Last administered on 06/27/18 08:13; Start 06/16/18 at 09:00; Stop 06/28/18 at 00:33; Status DC Clozapine (Clozaril) 25 mg DAILY PO Last administered on 06/27/18 08:13; Start 06/16/18 at 09:00; Stop 06/28/18 at 00:33; Status DC Estradiol (Estrace) 1 speedy MoTh VG Last administered on 06/18/18at 20:05; Start 06/18/18 at 21:00 [place] Carbonate 300 mg DAILY PO Last administered on 07/18/18 09:11; Start at 09:00 [place] Citrate 5.3 meq QHS PO Last administered on 07/09/18at 20:56; Start at 21:00; Stop 07/10/18 at 17:09; Status DC Levothyroxine Sodium (Synthroid) 75 mcg 1X ONCE PO Last administered on 07:53; Start 06/19/18 at 07:00; Stop 06/19/18 at 07:01; Status DC Benztropine Mesylate (Cogentin) 1.5 mg QHS PO Last administered on 06/24/18 19: 58; Start 06/22/18 at 21:00; Stop 06/25/18 at 17:05; Status DC Benztropine Mesylate (Cogentin) 1 mg QHS PO Last administered on 07/02/18 19: 43; Start 06/25/18 at 21:00; Stop 07/02/18 at 21:00; Status DC Clozapine (Clozaril) 300 mg HS PO Last administered on 07/07/18 20:31; Start 06/28/18 at 21:00; Stop 07/08/18 at 15:05; Status DC Clozapine (Clozaril) 25 mg HS PO Last administered on 07/07/18 20:31; Start at 21:00; Stop 07/08/18 at 15:05; Status DC Benztropine Mesylate (Cogentin) 0.5 mg QHS PO Last administered on 07/03/18 20 :59; Start 07/03/18 at 21:00; Stop 07/04/18 at 20:59; Status DC Clozapine (Clozaril) 300 mg BID PO ; Start 07/08/18 at 21:00; Stop 07/08/18 at 21:00; Status DC Clozapine (Clozaril) 300 mg HS PO Last administered on 07/18/18 19:26; Start at 21:00 Clozapine (Clozaril) 50 mg HS PO Last administered on 07/18/18 19:26; Start at 21:00 [place] Citrate 6.67 meq HS PO Last administered on 07/18/18 19:26; Start 07/10 at 21:00 Active Scripts Active Reported Hydroxyzine Hcl 10 Mg Tablet 10 Mg PO PRN Q2HR PRN Clozapine 100 Mg Tablet 1 Tab PO 1700 Remeron (Mirtazapine) 15 Mg Tablet 1 Tab PO 1700 Depakote Er (Divalproex Sodium) 500 Mg Tab.er.24h 750 Mg PO 1700 Nystatin 15 Gm Powder 1 Speedy TP BID Lidocaine 1 Each Adh..patch 1 Each TP DAILY Lotrimin Af (Clotrimazole) 12 Gm Cream..g. 1 Speedy TP BID PRN Sorbitol (Sorbitol Solution) 1 Ml Solution 30 Ml PO PRN DAILY PRN Trazodone Hcl 50 Mg Tablet 100 Mg PO QHS PRN Elmer-128 (Sodium Chloride) 3.5 Gm Oint...g. 1 Speedy OP HS Lipitor (Atorvastatin Calcium) 20 Mg Tablet 20 Mg PO DAILYWSUP Levothyroxine Sodium 75 Mcg Tablet 75 Mcg PO DAILYAC Estrace (Estradiol) 42.5 Gm Cream.appl 1 Speedy VG 2X WEEK Q MON, THURS Endocet 10-325 Mg Tablet (Oxycodone Hcl/Acetaminophen) 1 Each Tablet 1 Each PO PRN Q6HRS PRN Vitamin B-12 (Cyanocobalamin (Vitamin B-12)) 1,000 Mcg Tablet 1,000 Mcg PO DAILY Maalox Advanced Suspension (Mag Hydrox/Aluminum Hyd/Simeth) 355 Ml Oral.susp 15 Ml PO PRN AFTMEALHC PRN Analgesic [place] (Methyl Salicylate/Menthol) 28 Gm Oint...g. 1 Speedy TP PRN QID PRN Risperidone 1 Mg Tablet 1.5 Mg PO 1700 Refresh Classic Eye Drops (Polyvinyl Alcohol/Povidone/Pf) 1 Each Droperette 1 Each OU TID PRN Trazodone Hcl 50 Mg Tablet 100 Mg PO DAILYWSUP Norvasc (Amlodipine Besylate) 5 Mg Tablet 10 Mg PO DAILY Miralax (Polyethylene Glycol 3350) 17 Gm Powd.pack 17 Gm PO DAILY Milk Of Magnesia (Magnesium Hydroxide) 2,400 Mg/10 Ml Oral.susp 2,400 Mg PO PRN DAILY PRN Tylenol (Acetaminophen) 325 Mg Tablet 650 Mg PO PRN Q6HRS PRN I have reviewed the current psychotropics carefully including drug interactions. Risk benefit ratio favors no change other than as noted in my dictated progress note. 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
--- NOTE | 2018-07-18 23:26 | NUR ---
Pt out in dayroom this evening. Compliant with medications. After taking medications, pt asked to go to bed.
[2018-07-19 05:56] VITALS: BP 122/89
[2018-07-19] MEDS: LEVOTHYROXINE 75 MCG TABLET PO SCH (06:23)
[2018-07-19] MEDS: prednisoLONE ACETATE 1% OPHTH SUSPENSION 5ML BOTTLE. OD SCH (08:05)
[2018-07-19] MEDS: POLYETHYLENE GLYCOL 3350 17 GM PACKET. PO SCH (08:05)
[2018-07-19] MEDS: LITHIUM CARBONATE 300 MG TABLET PO SCH (08:05)
[2018-07-19] MEDS: FUROSEMIDE 20 MG TABLET PO SCH (08:05)
[2018-07-19] MEDS: CHOLECALCIFEROL (VITAMIN D3) 50,000 UNIT CAPSULE PO SCH (08:06)
[2018-07-19] MEDS: amLODIPine BESYLATE 5 MG TABLET PO SCH (08:06)
[2018-07-19] MEDS: CYANOCOBALAMIN (VITAMIN B-12) 1,000 MCG TABLET. PO SCH (08:06)
--- NOTE | 2018-07-19 09:14 | NUR ---
Pt has been calm, cooperative, compliant. No agitation or aggression. She is able to focus on tasks and is med compliant. Denies hallucinations. No delusions noted.
[2018-07-19 16:09] VITALS: BP 112/70
[2018-07-19] MEDS: cloZAPine 100 MG TABLET PO SCH (19:41)
[2018-07-19] MEDS: MIRTAZAPINE 7.5 MG TABLET. PO SCH (19:42)
[2018-07-19] MEDS: DIVALPROEX ER 500 MG TAB.ER.24H PO SCH (19:42)
[2018-07-19] MEDS: cloZAPine 25 MG TABLET PO SCH (19:42)
[2018-07-19] MEDS: ATORVASTATIN CALCIUM 20 MG TABLET PO SCH (19:42)
[2018-07-19] MEDS: LITHIUM CITRATE PO SCH (19:43)
--- NOTE | 2018-07-19 22:43 | PDOC ---
Exam Note: Julian Note: Please also refer to the separate dictated note~for this date of service dictated separately.~Patient seen individually. Discussed the patient with Nursing staff reviewed the chart.~Reviewed interim history and current functioning. Reviewed vital signs,~Labs/ Radiology~and current medications noted below. Continue current treatment with the changes noted in the dictated addendum note Assessment: Vital Signs: Vital Signs Date Time Temp Pulse Resp B/P (MAP) Pulse Ox O2 Delivery O2 Flow Rate FiO2 07/19/18 16:09 98.8 94 18 112/70 (84) 97 07/17/18 15:52 Room Air I&O Intake and Output 07/19/18 07:00 Intake Total 965 ml Balance 965 ml Intake Oral 965 ml Current Medications: Meds: Current Medications Acetaminophen (Tylenol) 650 mg PRN Q6HRS PRN PO PAIN / TEMP Last administered on 06/23/18 05:51; Start 06/06/18 at 04:15 Multi-Ingredient Ointment (Analgesic [place]) 1 speedy PRN QID PRN TP MUSCLE PAIN Last administered on 06/07/18at 22:53; Start 06/06/18 at 04:15 Al Hydroxide/Mg Hydroxide (Mylanta Plus Xs) 15 ml PRN AFTMEALHC PRN PO DYSPEPSIA; Start 06/06/18 at 04:15 Magnesium Hydroxide (Milk Of Magnesia) 2,400 mg PRN QHS PRN PO CONSTIPATION; Start 06/06/18 at 04:15 Amlodipine Besylate (Norvasc) 5 mg DAILY PO Last administered on 07/19/18 08:06 ; Start 06/06/18 at 09:00 Atorvastatin Calcium (Lipitor) 20 mg QHS PO Last administered on 07/19/18 19:42 ; Start 06/06/18 at 21:00 Clozapine (Clozaril) 100 mg [id number] PO Last administered on 06/15/18 07:44; Start 06/06/18 at 09:00; Stop 06/15/18 at 18:36; Status DC Clozapine (Clozaril) 50 mg [id number] PO Last administered on 06/15/18 07:44; Start 06/06/18 at 09:00; Stop 06/15/18 at 18:36; Status DC Cyanocobalamin (Vitamin B-12) 1,000 mcg DAILY PO Last administered on 07/19/18 08:06; Start 06/06/18 at 09:00 Divalproex Sodium (Depakote Er) 1,000 mg QHS PO Last administered on 07/19/18 19:42; Start 06/06/18 at 21:00 Vitamin D (Vitamin D3) 50,000 unit WEEKLY PO Last administered on 07/19/18 08: 06; Start 06/07/18 at 09:00 Estradiol (Estrace) 1 speedy QMTH VG Last administered on 06/08/18 15:41; Start 06/08/18 at 16:00; Stop 06/08/18 at 21:19; Status DC Furosemide (Lasix) 20 mg DAILY PO Last administered on 07/19/18 08:05; Start at 09:00 Levothyroxine Sodium (Synthroid) 75 mcg DAILY06 PO Last administered on 06:23; Start 06/06/18 at 06:00 Melatonin 6 mg PRN QHS PRN PO INSOMNIA Last administered on 06/13/18 22:23; Start 06/06/18 at 04:30 Magnesium Hydroxide (Milk Of Magnesia) 2,400 mg PRN DAILY PRN PO CONSTIPATION; Start 06/06/18 at 04:30; Status UNV Polyethylene Glycol (miraLAX) 17 gm DAILY PO Last administered on 07/19/18 08: 05; Start 06/06/18 at 09:00 Prednisolone Acetate (Pred Forte) 1 drop DAILY OD Last administered on 08:05; Start 06/06/18 at 09:00 Artificial Tears (Refresh Classic) 1 drop TID PRN PRN OU DRY EYE; Start at 04:30 Mirtazapine (Remeron) 7.5 mg QHS PO Last administered on 07/19/18 19:42; Start 06/06/18 at 21:00 Trazodone HCl (Desyrel) 100 mg PRN QHS PRN PO INSOMNIA, MAY REPEAT X3 Last administered on 06/23/18 20:10; Start 06/06/18 at 19:00 Olanzapine (ZyPREXA ZYDIS) 5 mg PRN Q2HR PRN PO PSYCHOSIS Last administered on 1/30/19at 22:09; Start 06/07/18 at 14:00 Haloperidol (Haldol) 5 mg HS PO ; Start 06/07/18 at 21:00; Stop 06/07/18 at 21: 00; Status DC Haloperidol Lactate (Haldol) 5 mg DAILY IM Last administered on 06/09/18at 07:51 ; Start 06/07/18 at 19:15; Stop 06/09/18 at 09:41; Status DC Estradiol (Estrace) 1 speedy QMTH VG ; Start 06/11/18 at 21:00; Stop 06/18/18 at 11 :41; Status DC Haloperidol Lactate (Haldol) 5 mg 1X ONCE IM Last administered on 06/09/18at 09 :43; Start 06/09/18 at 09:45; Stop 06/09/18 at 09:46; Status DC Haloperidol Lactate (Haldol) 10 mg DAILY IM Last administered on 06/14/18at 08: 40; Start 06/10/18 at 09:00; Stop 06/14/18 at 13:06; Status DC Hydroxyzine HCl (Atarax) 50 mg 1X ONCE PO Last administered on 06/09/18at 17:26 ; Start 06/09/18 at 17:15; Stop 06/09/18 at 17:24; Status DC Hydroxyzine HCl (Atarax) 50 mg 1X ONCE PO Last administered on 06/09/18at 18:29 ; Start 06/09/18 at 18:25; Stop 06/09/18 at 18:26; Status DC Benztropine Mesylate (Cogentin) 1 mg QHS PO Last administered on 06/21/18at 21:57 ; Start 06/10/18 at 21:00; Stop 06/22/18 at 16:50; Status DC [place] Carbonate 300 mg HS PO Last administered on 06/13/18at 19:20; Start at 21:00; Stop 06/14/18 at 13:06; Status DC Hydroxyzine HCl (Atarax) 50 mg PRN Q2HR PRN PO SEDATION Last administered on 01:30; Start 06/11/18 at 15:00 Trazodone HCl (Desyrel) 100 mg PRN 1X PRN PO insomnia Last administered on 06/12at 04:16; Start 06/12/18 at 03:15 Lorazepam (Ativan Intensol) 0.5 mg 1X ONCE SL Last administered on 06/13/18at 21:51; Start 06/13/18 at 18:15; Stop 06/13/18 at 18:16; Status DC Lorazepam (Ativan) 1 mg DAILY IM Last administered on 06/23/18 08:16; Start at 09:50; Stop 06/24/18 at 15:40; Status DC Haloperidol Lactate (Haldol) 5 mg DAILY IM Last administered on 06/16/18at 09:54 ; Start 06/15/18 at 09:00; Stop 06/18/18 at 10:45; Status DC [place] Carbonate 300 mg BID PO Last administered on 06/18/18at 08:14; Start at 21:00; Stop 06/18/18 at 15:03; Status DC Clozapine (Clozaril) 300 mg DAILY PO Last administered on 06/27/18 08:13; Start 06/16/18 at 09:00; Stop 06/28/18 at 00:33; Status DC Clozapine (Clozaril) 25 mg DAILY PO Last administered on 06/27/18 08:13; Start 06/16/18 at 09:00; Stop 06/28/18 at 00:33; Status DC Estradiol (Estrace) 1 speedy MoTh VG Last administered on 06/18/18at 20:05; Start 06/18/18 at 21:00 [place] Carbonate 300 mg DAILY PO Last administered on 07/19/18 08:05; Start at 09:00 [place] Citrate 5.3 meq QHS PO Last administered on 07/09/18at 20:56; Start at 21:00; Stop 07/10/18 at 17:09; Status DC Levothyroxine Sodium (Synthroid) 75 mcg 1X ONCE PO Last administered on 07:53; Start 06/19/18 at 07:00; Stop 06/19/18 at 07:01; Status DC Benztropine Mesylate (Cogentin) 1.5 mg QHS PO Last administered on 06/24/18 19: 58; Start 06/22/18 at 21:00; Stop 06/25/18 at 17:05; Status DC Benztropine Mesylate (Cogentin) 1 mg QHS PO Last administered on 07/02/18 19: 43; Start 06/25/18 at 21:00; Stop 07/02/18 at 21:00; Status DC Clozapine (Clozaril) 300 mg HS PO Last administered on 07/07/18 20:31; Start 06/28/18 at 21:00; Stop 07/08/18 at 15:05; Status DC Clozapine (Clozaril) 25 mg HS PO Last administered on 07/07/18 20:31; Start at 21:00; Stop 07/08/18 at 15:05; Status DC Benztropine Mesylate (Cogentin) 0.5 mg QHS PO Last administered on 07/03/18 20 :59; Start 07/03/18 at 21:00; Stop 07/04/18 at 20:59; Status DC Clozapine (Clozaril) 300 mg BID PO ; Start 07/08/18 at 21:00; Stop 07/08/18 at 21:00; Status DC Clozapine (Clozaril) 300 mg HS PO Last administered on 07/19/18 19:41; Start at 21:00 Clozapine (Clozaril) 50 mg HS PO Last administered on 07/19/18 19:42; Start at 21:00 [place] Citrate 6.67 meq HS PO Last administered on 07/19/18 19:43; Start 07/10 at 21:00 Active Scripts Active Reported Hydroxyzine Hcl 10 Mg Tablet 10 Mg PO PRN Q2HR PRN Clozapine 100 Mg Tablet 1 Tab PO 1700 Remeron (Mirtazapine) 15 Mg Tablet 1 Tab PO 1700 Depakote Er (Divalproex Sodium) 500 Mg Tab.er.24h 750 Mg PO 1700 Nystatin 15 Gm Powder 1 Speedy TP BID Lidocaine 1 Each Adh..patch 1 Each TP DAILY Lotrimin Af (Clotrimazole) 12 Gm Cream..g. 1 Speedy TP BID PRN Sorbitol (Sorbitol Solution) 1 Ml Solution 30 Ml PO PRN DAILY PRN Trazodone Hcl 50 Mg Tablet 100 Mg PO QHS PRN [place]-128 (Sodium Chloride) 3.5 Gm Oint...g. 1 Speedy OP HS Lipitor (Atorvastatin Calcium) 20 Mg Tablet 20 Mg PO DAILYWSUP Levothyroxine Sodium 75 Mcg Tablet 75 Mcg PO DAILYAC Estrace (Estradiol) 42.5 Gm Cream.appl 1 Speedy VG 2X WEEK Q MON, THURS Endocet 10-325 Mg Tablet (Oxycodone Hcl/Acetaminophen) 1 Each Tablet 1 Each PO PRN Q6HRS PRN Vitamin B-12 (Cyanocobalamin (Vitamin B-12)) 1,000 Mcg Tablet 1,000 Mcg PO DAILY Maalox Advanced Suspension (Mag Hydrox/Aluminum Hyd/Simeth) 355 Ml Oral.susp 15 Ml PO PRN AFTMEALHC PRN Analgesic [place] (Methyl Salicylate/Menthol) 28 Gm Oint...g. 1 Speedy TP PRN QID PRN Risperidone 1 Mg Tablet 1.5 Mg PO 1700 Refresh [place] Eye Drops (Polyvinyl Alcohol/Povidone/Pf) 1 Each Droperette 1 Each OU TID PRN Trazodone Hcl 50 Mg Tablet 100 Mg PO DAILYWSUP Norvasc (Amlodipine Besylate) 5 Mg Tablet 10 Mg PO DAILY Miralax (Polyethylene Glycol 3350) 17 Gm Powd.pack 17 Gm PO DAILY Milk Of Magnesia (Magnesium Hydroxide) 2,400 Mg/10 Ml Oral.susp 2,400 Mg PO PRN DAILY PRN Tylenol (Acetaminophen) 325 Mg Tablet 650 Mg PO PRN Q6HRS PRN I have reviewed the current psychotropics carefully including drug interactions. Risk benefit ratio favors no change other than as noted in my dictated progress note. 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
--- NOTE | 2018-07-19 23:12 | PN ---
DATE: 07/17/2018 PSYCHIATRIC PROGRESS NOTE This late entry 07/17/2018 covers elements not covered in my initial note. SUBJECTIVE: I met with the patient in the evening. The patient slept 7-1/2 hours previous night. She has been quite appropriate on the unit, attending activities and therapy. REVIEW OF SYSTEMS: No CV, , pulmonary, eye, ENT system symptoms on review. Reliability fair. MENTAL STATUS EXAM: Oriented reasonably. Speech is coherent, abstraction fair, computation somewhat impaired, language function intact, attention span fair. Mood and affect is improved. LABORATORY DATA: Reviewed. IMPRESSION: Unchanged from initial note. PLAN: No change from initial note. KIERSTEN WATT MD DR: SANCHEZ/fredrick JOB#: [id number] / [id number]
--- NOTE | 2018-07-20 00:52 | NUR ---
Pt withdrawn to her room all evening. Compliant with medications. No behaviors noted.
[2018-07-20 05:48] VITALS: BP 143/83
[2018-07-20] MEDS: LEVOTHYROXINE 75 MCG TABLET PO SCH (05:51)
[2018-07-20 07:40] LABS: BASO % 0 % (0-3); EOS # 0.2 x10^3/uL (0.0-0.7); EOS % 4 % (0-3); HEMATOCRIT 37.9 % (36.0-47.0); HEMOGLOBIN 12.6 g/dL (12.0-15.5); LYMPH # 1.4 x10^3/uL (1.0-4.8); LYMPH % 27 % (24-48); MEAN CORPUSCULAR HEMOGLOBIN 29 pg (25-35); MEAN CORPUSCULAR HGB CONC 33 g/dL (31-37); MEAN CORPUSCULAR VOLUME 88 fL (79-100); MONO # 0.6 x10^3/uL (0.0-1.1); MONO % 11 % (0-9); NEUT % 58 % (31-73); PLATELET COUNT 196 x10^3/uL (140-400); RED BLOOD COUNT 4.32 x10^6/uL (3.50-5.40); RED CELL DISTRIBUTION WIDTH 16.9 % (11.5-14.5); WHITE BLOOD COUNT 5.3 x10^3/uL (4.0-11.0)
[2018-07-20 07:57] LABS: ALBUMIN 2.9 g/dL (3.4-5.0); ALBUMIN/GLOBULIN RATIO 0.7 (1.0-1.7); CALCIUM 10.2 mg/dL (8.5-10.1); CREATININE 0.9 mg/dL (0.6-1.0); GFR 62.1; POTASSIUM 4.4 mmol/L (3.5-5.1); TOTAL BILIRUBIN 0.3 mg/dL (0.2-1.0)
[2018-07-20] MEDS: LITHIUM CARBONATE 300 MG TABLET PO SCH (07:57)
[2018-07-20] MEDS: prednisoLONE ACETATE 1% OPHTH SUSPENSION 5ML BOTTLE. OD SCH (07:57)
[2018-07-20] MEDS: FUROSEMIDE 20 MG TABLET PO SCH (07:57)
[2018-07-20] MEDS: POLYETHYLENE GLYCOL 3350 17 GM PACKET. PO SCH (07:57)
[2018-07-20] MEDS: CYANOCOBALAMIN (VITAMIN B-12) 1,000 MCG TABLET. PO SCH (07:58)
[2018-07-20] MEDS: amLODIPine BESYLATE 5 MG TABLET PO SCH (07:58)
--- NOTE | 2018-07-20 09:45 | NUR ---
Pt has been calm, cooperative, compliant. No agitation or aggression. She is able to focus on tasks and is med compliant. Denies hallucinations. No delusions noted. She is withdrawn to her room.
[2018-07-20 16:14] VITALS: BP 133/84
[2018-07-20] MEDS: ATORVASTATIN CALCIUM 20 MG TABLET PO SCH (19:39)
[2018-07-20] MEDS: cloZAPine 25 MG TABLET PO SCH (19:39)
[2018-07-20] MEDS: cloZAPine 100 MG TABLET PO SCH (19:39)
[2018-07-20] MEDS: DIVALPROEX ER 500 MG TAB.ER.24H PO SCH (19:39)
[2018-07-20] MEDS: MIRTAZAPINE 7.5 MG TABLET. PO SCH (19:39)
[2018-07-20] MEDS: LITHIUM CITRATE PO SCH (19:40)
[2018-07-20] MEDS: ESTRADIOL 0.01% VAGINAL CREAM 42.5GM TUBE. VG SCH (21:00)
--- NOTE | 2018-07-20 22:39 | PDOC ---
Exam Note: Julian Note: Please also refer to the separate dictated note~for this date of service dictated separately.~Patient seen individually. Discussed the patient with Nursing staff reviewed the chart.~Reviewed interim history and current functioning. Reviewed vital signs,~Labs/ Radiology~and current medications noted below. Continue current treatment with the changes noted in the dictated addendum note Assessment: Vital Signs: Vital Signs Date Time Temp Pulse Resp B/P (MAP) Pulse Ox O2 Delivery O2 Flow Rate FiO2 07/20/18 16:14 97.8 98 18 133/84 (100) 100 Room Air I&O Intake and Output 07/20/18 07:00 Intake Total 1685 ml Balance 1685 ml Intake Oral 1685 ml Labs: Laboratory Tests Test 07/20/18 07:28 White Blood Count 5.3 x10^3/uL (4.0-11.0) Red Blood Count 4.32 x10^6/uL (3.50-5.40) Hemoglobin 12.6 g/dL (12.0-15.5) Hematocrit 37.9 % (36.0-47.0) Mean Corpuscular Volume 88 fL (79-100) Mean Corpuscular Hemoglobin 29 pg (25-35) Mean Corpuscular Hemoglobin Concent 33 g/dL (31-37) Red Cell Distribution Width 16.9 % (11.5-14.5) H Platelet Count 196 x10^3/uL (140-400) Neutrophils (%) (Auto) 58 % (31-73) Lymphocytes (%) (Auto) 27 % (24-48) Monocytes (%) (Auto) 11 % (0-9) H Eosinophils (%) (Auto) 4 % (0-3) H Basophils (%) (Auto) 0 % (0-3) Neutrophils # (Auto) 3.0 x10^3uL (1.8-7.7) Lymphocytes # (Auto) 1.4 x10^3/uL (1.0-4.8) Monocytes # (Auto) 0.6 x10^3/uL (0.0-1.1) Eosinophils # (Auto) 0.2 x10^3/uL (0.0-0.7) Basophils # (Auto) 0.0 x10^3/uL (0.0-0.2) Sodium Level 144 mmol/L (136-145) Potassium Level 4.4 mmol/L (3.5-5.1) Chloride Level 107 mmol/L (98-107) Carbon Dioxide Level 30 mmol/L (21-32) Anion Gap 7 (6-14) Blood Urea Nitrogen 14 mg/dL (7-20) Creatinine 0.9 mg/dL (0.6-1.0) Estimated GFR (Cockcroft-Gault) 62.1 BUN/Creatinine Ratio 16 (6-20) Glucose Level 99 mg/dL (70-99) Calcium Level 10.2 mg/dL (8.5-10.1) H Total Bilirubin 0.3 mg/dL (0.2-1.0) Aspartate Amino Transferase (AST) 16 U/L (15-37) Alanine Aminotransferase (ALT) 10 U/L (14-59) L Alkaline Phosphatase 103 U/L (46-116) Total Protein 7.0 g/dL (6.4-8.2) Albumin 2.9 g/dL (3.4-5.0) L Albumin/Globulin Ratio 0.7 (1.0-1.7) L Current Medications: Meds: Current Medications Acetaminophen (Tylenol) 650 mg PRN Q6HRS PRN PO PAIN / TEMP Last administered on 06/23/18 05:51; Start 06/06/18 at 04:15 Multi-Ingredient Ointment (Analgesic [place]) 1 speedy PRN QID PRN TP MUSCLE PAIN Last administered on 06/07/18 22:53; Start 06/06/18 at 04:15 Al Hydroxide/Mg Hydroxide (Mylanta Plus Xs) 15 ml PRN AFTMEALHC PRN PO DYSPEPSIA; Start 06/06/18 at 04:15 Magnesium Hydroxide (Milk Of Magnesia) 2,400 mg PRN QHS PRN PO CONSTIPATION; Start 06/06/18 at 04:15 Amlodipine Besylate (Norvasc) 5 mg DAILY PO Last administered on 07/20/18 07:58 ; Start 06/06/18 at 09:00 Atorvastatin Calcium (Lipitor) 20 mg QHS PO Last administered on 07/20/18 19:39 ; Start 06/06/18 at 21:00 Clozapine (Clozaril) 100 mg [id number] PO Last administered on 06/15/18 07:44; Start 06/06/18 at 09:00; Stop 06/15/18 at 18:36; Status DC Clozapine (Clozaril) 50 mg BID94 PO Last administered on 06/15/18 07:44; Start 06/06/18 at 09:00; Stop 06/15/18 at 18:36; Status DC Cyanocobalamin (Vitamin B-12) 1,000 mcg DAILY PO Last administered on 07/20/18 07:58; Start 06/06/18 at 09:00 Divalproex Sodium (Depakote Er) 1,000 mg QHS PO Last administered on 07/20/18 19:39; Start 06/06/18 at 21:00 Vitamin D (Vitamin D3) 50,000 unit WEEKLY PO Last administered on 07/19/18 08: 06; Start 06/07/18 at 09:00 Estradiol (Estrace) 1 speedy QMTH VG Last administered on 06/08/18 15:41; Start 06/08/18 at 16:00; Stop 06/08/18 at 21:19; Status DC Furosemide (Lasix) 20 mg DAILY PO Last administered on 07/20/18 07:57; Start at 09:00 Levothyroxine Sodium (Synthroid) 75 mcg DAILY06 PO Last administered on 05:51; Start 06/06/18 at 06:00 Melatonin 6 mg PRN QHS PRN PO INSOMNIA Last administered on 06/13/18 22:23; Start 06/06/18 at 04:30 Magnesium Hydroxide (Milk Of Magnesia) 2,400 mg PRN DAILY PRN PO CONSTIPATION; Start 06/06/18 at 04:30; Status UNV Polyethylene Glycol (miraLAX) 17 gm DAILY PO Last administered on 07/20/18 07: 57; Start 06/06/18 at 09:00 Prednisolone Acetate (Pred Forte) 1 drop DAILY OD Last administered on 07:57; Start 06/06/18 at 09:00 Artificial Tears (Refresh Classic) 1 drop TID PRN PRN OU DRY EYE; Start at 04:30 Mirtazapine (Remeron) 7.5 mg QHS PO Last administered on 07/20/18 19:39; Start 06/06/18 at 21:00 Trazodone HCl (Desyrel) 100 mg PRN QHS PRN PO INSOMNIA, MAY REPEAT X3 Last administered on 06/23/18at 20:10; Start 06/06/18 at 19:00 Olanzapine (ZyPREXA ZYDIS) 5 mg PRN Q2HR PRN PO PSYCHOSIS Last administered on 06/17/18at 22:09; Start 06/07/18 at 14:00 Haloperidol (Haldol) 5 mg HS PO ; Start 06/07/18 at 21:00; Stop 06/07/18 at 21: 00; Status DC Haloperidol Lactate (Haldol) 5 mg DAILY IM Last administered on 06/09/18at 07:51 ; Start 06/07/18 at 19:15; Stop 06/09/18 at 09:41; Status DC Estradiol (Estrace) 1 speedy QMTH VG ; Start 06/11/18 at 21:00; Stop 06/18/18 at 11 :41; Status DC Haloperidol Lactate (Haldol) 5 mg 1X ONCE IM Last administered on 06/09/18at 09 :43; Start 06/09/18 at 09:45; Stop 06/09/18 at 09:46; Status DC Haloperidol Lactate (Haldol) 10 mg DAILY IM Last administered on 06/14/18at 08: 40; Start 06/10/18 at 09:00; Stop 06/14/18 at 13:06; Status DC Hydroxyzine HCl (Atarax) 50 mg 1X ONCE PO Last administered on 06/09/18at 17:26 ; Start 06/09/18 at 17:15; Stop 06/09/18 at 17:24; Status DC Hydroxyzine HCl (Atarax) 50 mg 1X ONCE PO Last administered on 06/09/18at 18:29 ; Start 06/09/18 at 18:25; Stop 06/09/18 at 18:26; Status DC Benztropine Mesylate (Cogentin) 1 mg QHS PO Last administered on 06/21/18at 21:57 ; Start 06/10/18 at 21:00; Stop 06/22/18 at 16:50; Status DC [place] Carbonate 300 mg HS PO Last administered on 06/13/18at 19:20; Start at 21:00; Stop 06/14/18 at 13:06; Status DC Hydroxyzine HCl (Atarax) 50 mg PRN Q2HR PRN PO SEDATION Last administered on 01:30; Start 06/11/18 at 15:00 Trazodone HCl (Desyrel) 100 mg PRN 1X PRN PO insomnia Last administered on 06/12 04:16; Start 06/12/18 at 03:15 Lorazepam (Ativan Intensol) 0.5 mg 1X ONCE SL Last administered on 06/13/18at 21:51; Start 06/13/18 at 18:15; Stop 06/13/18 at 18:16; Status DC Lorazepam (Ativan) 1 mg DAILY IM Last administered on 06/23/18 08:16; Start at 09:50; Stop 06/24/18 at 15:40; Status DC Haloperidol Lactate (Haldol) 5 mg DAILY IM Last administered on 06/16/18 09:54 ; Start 06/15/18 at 09:00; Stop 06/18/18 at 10:45; Status DC [place] Carbonate 300 mg BID PO Last administered on 06/18/18 08:14; Start at 21:00; Stop 06/18/18 at 15:03; Status DC Clozapine (Clozaril) 300 mg DAILY PO Last administered on 06/27/18 08:13; Start 06/16/18 at 09:00; Stop 06/28/18 at 00:33; Status DC Clozapine (Clozaril) 25 mg DAILY PO Last administered on 06/27/18 08:13; Start 06/16/18 at 09:00; Stop 06/28/18 at 00:33; Status DC Estradiol (Estrace) 1 speedy MoTh VG Last administered on 06/18/18at 20:05; Start 06/18/18 at 21:00 [place] Carbonate 300 mg DAILY PO Last administered on 07/20/18 07:57; Start at 09:00 [place] Citrate 5.3 meq QHS PO Last administered on 07/09/18 20:56; Start at 21:00; Stop 07/10/18 at 17:09; Status DC Levothyroxine Sodium (Synthroid) 75 mcg 1X ONCE PO Last administered on 07:53; Start 06/19/18 at 07:00; Stop 06/19/18 at 07:01; Status DC Benztropine Mesylate (Cogentin) 1.5 mg QHS PO Last administered on 06/24/18 19: 58; Start 06/22/18 at 21:00; Stop 06/25/18 at 17:05; Status DC Benztropine Mesylate (Cogentin) 1 mg QHS PO Last administered on 07/02/18 19: 43; Start 06/25/18 at 21:00; Stop 07/02/18 at 21:00; Status DC Clozapine (Clozaril) 300 mg HS PO Last administered on 07/07/18 20:31; Start 06/28/18 at 21:00; Stop 07/08/18 at 15:05; Status DC Clozapine (Clozaril) 25 mg HS PO Last administered on 07/07/18 20:31; Start at 21:00; Stop 07/08/18 at 15:05; Status DC Benztropine Mesylate (Cogentin) 0.5 mg QHS PO Last administered on 07/03/18 20 :59; Start 07/03/18 at 21:00; Stop 07/04/18 at 20:59; Status DC Clozapine (Clozaril) 300 mg BID PO ; Start 07/08/18 at 21:00; Stop 07/08/18 at 21:00; Status DC Clozapine (Clozaril) 300 mg HS PO Last administered on 07/20/18 19:39; Start at 21:00 Clozapine (Clozaril) 50 mg HS PO Last administered on 07/20/18 19:39; Start at 21:00 [place] Citrate 6.67 meq HS PO Last administered on 07/20/18 19:40; Start 07/10 at 21:00 Active Scripts Active Reported Hydroxyzine Hcl 10 Mg Tablet 10 Mg PO PRN Q2HR PRN Clozapine 100 Mg Tablet 1 Tab PO 1700 Remeron (Mirtazapine) 15 Mg Tablet 1 Tab PO 1700 Depakote Er (Divalproex Sodium) 500 Mg Tab.er.24h 750 Mg PO 1700 Nystatin 15 Gm Powder 1 Speedy TP BID Lidocaine 1 Each Adh..patch 1 Each TP DAILY Lotrimin Af (Clotrimazole) 12 Gm Cream..g. 1 Speedy TP BID PRN Sorbitol (Sorbitol Solution) 1 Ml Solution 30 Ml PO PRN DAILY PRN Trazodone Hcl 50 Mg Tablet 100 Mg PO QHS PRN Elmer-128 (Sodium Chloride) 3.5 Gm Oint...g. 1 Speedy OP HS Lipitor (Atorvastatin Calcium) 20 Mg Tablet 20 Mg PO DAILYWSUP Levothyroxine Sodium 75 Mcg Tablet 75 Mcg PO DAILYAC Estrace (Estradiol) 42.5 Gm Cream.appl 1 Speedy VG 2X WEEK Q MON, THURS Endocet 10-325 Mg Tablet (Oxycodone Hcl/Acetaminophen) 1 Each Tablet 1 Each PO PRN Q6HRS PRN Vitamin B-12 (Cyanocobalamin (Vitamin B-12)) 1,000 Mcg Tablet 1,000 Mcg PO DAILY Maalox Advanced Suspension (Mag Hydrox/Aluminum Hyd/Simeth) 355 Ml Oral.susp 15 Ml PO PRN AFTMEALHC PRN Analgesic [place] (Methyl Salicylate/Menthol) 28 Gm Oint...g. 1 Speedy TP PRN QID PRN Risperidone 1 Mg Tablet 1.5 Mg PO 1700 Refresh Classic Eye Drops (Polyvinyl Alcohol/Povidone/Pf) 1 Each Droperette 1 Each OU TID PRN Trazodone Hcl 50 Mg Tablet 100 Mg PO DAILYWSUP Norvasc (Amlodipine Besylate) 5 Mg Tablet 10 Mg PO DAILY Miralax (Polyethylene Glycol 3350) 17 Gm Powd.pack 17 Gm PO DAILY Milk Of Magnesia (Magnesium Hydroxide) 2,400 Mg/10 Ml Oral.susp 2,400 Mg PO PRN DAILY PRN Tylenol (Acetaminophen) 325 Mg Tablet 650 Mg PO PRN Q6HRS PRN I have reviewed the current psychotropics carefully including drug interactions. Risk benefit ratio favors no change other than as noted in my dictated progress note. 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
--- NOTE | 2018-07-20 23:35 | NUR ---
Nursing Note The patient was located in the day room for her medication and assessment. The patient was appropriate during interactions with staff. The patient took her medications whole. The patient is currently sleeping in her room.
--- NOTE | 2018-07-21 01:35 | PN ---
DATE: 07/18/2018 PSYCHIATRIC PROGRESS NOTE This late entry for 07/18/2018 covers elements not covered in my initial note. SUBJECTIVE: I met with the patient in the evening. The patient slept 8 hours previous night. She has been pleasant, cooperative. REVIEW OF SYSTEMS: No CV, , pulmonary, eye system symptoms on review. MENTAL STATUS EXAM: Oriented reasonably. Speech coherent, abstraction fair, computation impaired. Mood and affect is improved. IMPRESSION: Unchanged from initial note. PLAN: No change from initial note. MAN Rox WATT MD DR: SANCHEZ/fredrick JOB#: [id number] / [id number]
--- NOTE | 2018-07-21 01:38 | PN ---
DATE: 07/19/2018 PSYCHIATRIC PROGRESS NOTE This late entry for 07/19/2018 covers elements not covered in my initial note. SUBJECTIVE: I met with the patient in the evening. The patient slept 7-1/2 hours previous night. She has been pleasant, cooperative, little anxious with some pressured speech at times, but very appropriate. REVIEW OF SYSTEMS: No CV, , pulmonary, eye, ENT system symptoms on review. Her visited her and she was very pleased with this, discussed with her. MENTAL STATUS EXAM: Oriented reasonably. Speech is coherent, abstraction fair, computation impaired, language function intact. Mood and affect is improved. IMPRESSION: Unchanged from initial note. PLAN: No change from initial note. KIERSTEN WATT MD DR: SANCHEZ/fredrick JOB#: [id number] / [id number]
[2018-07-21 05:53] VITALS: BP 100/62
[2018-07-21] MEDS: LEVOTHYROXINE 75 MCG TABLET PO SCH (06:19)
[2018-07-21] MEDS: prednisoLONE ACETATE 1% OPHTH SUSPENSION 5ML BOTTLE. OD SCH (08:09)
[2018-07-21] MEDS: LITHIUM CARBONATE 300 MG TABLET PO SCH (08:09)
[2018-07-21] MEDS: POLYETHYLENE GLYCOL 3350 17 GM PACKET. PO SCH (08:10)
[2018-07-21] MEDS: FUROSEMIDE 20 MG TABLET PO SCH (08:10)
[2018-07-21] MEDS: CYANOCOBALAMIN (VITAMIN B-12) 1,000 MCG TABLET. PO SCH (08:11)
--- NOTE | 2018-07-21 09:26 | EKG ---
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
--- NOTE | 2018-07-21 09:49 | NUR ---
Pt has been calm, cooperative, compliant. No agitation or aggression. She is able to focus on tasks and is med compliant. Denies hallucinations. No delusions noted. She is withdrawn to her room however she appears happier and her affect has improved since her started visiting.
--- NOTE | 2018-07-21 10:06 | EKG ---
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
[2018-07-21 10:25] VITALS: BP 114/73
[2018-07-21] MEDS: amLODIPine BESYLATE 5 MG TABLET PO SCH (10:26)
[2018-07-21 16:24] VITALS: BP 134/83
[2018-07-21] MEDS: ATORVASTATIN CALCIUM 20 MG TABLET PO SCH (20:23)
[2018-07-21] MEDS: DIVALPROEX ER 500 MG TAB.ER.24H PO SCH (20:23)
[2018-07-21] MEDS: cloZAPine 100 MG TABLET PO SCH (20:24)
[2018-07-21] MEDS: cloZAPine 25 MG TABLET PO SCH (20:24)
[2018-07-21] MEDS: MIRTAZAPINE 7.5 MG TABLET. PO SCH (20:24)
[2018-07-21] MEDS: LITHIUM CITRATE PO SCH (20:25)
--- NOTE | 2018-07-21 21:12 | PN ---
DATE: 07/20/2018 PSYCHIATRIC PROGRESS NOTE This late entry of 07/20/2018 covers elements not covered in my initial note. SUBJECTIVE: I met with the patient in the evening. The patient slept 7-1/2 hours previous night. She has been fairly appropriate on the unit. At times, she has little pressured speech, but much improved. REVIEW OF SYSTEMS: No CV, , pulmonary, eye system symptoms on review. Her visited her on 07/20/2018 and she was very verbal about this with me. MENTAL STATUS EXAM: The patient is reasonably oriented. Speech is coherent, abstraction fair, computation reasonable, language function intact, attention span short. Mood and affect appears euthymic, at times a little pressured speech, but not grandiose. LABORATORY DATA: Reviewed. IMPRESSION: Unchanged from initial note. PLAN: No change from initial note. MAN Rox WATT MD DR: SANCHEZ/fredrick JOB#: [id number] / [id number]
--- NOTE | 2018-07-21 22:08 | PDOC ---
Exam Note: Julian Note: Please also refer to the separate dictated note~for this date of service dictated separately.~Patient seen individually. Discussed the patient with Nursing staff reviewed the chart.~Reviewed interim history and current functioning. Reviewed vital signs,~Labs/ Radiology~and current medications noted below. Continue current treatment with the changes noted in the dictated addendum note Assessment: Vital Signs: Vital Signs Date Time Temp Pulse Resp B/P (MAP) Pulse Ox O2 Delivery O2 Flow Rate FiO2 07/21/18 16:24 97.7 93 18 134/83 (100) 95 Room Air I&O Intake and Output 07/21/18 06:59 Intake Total 1565 ml Balance 1565 ml Intake Oral 1565 ml Current Medications: Meds: Current Medications Acetaminophen (Tylenol) 650 mg PRN Q6HRS PRN PO PAIN / TEMP Last administered on 06/23/18 05:51; Start 06/06/18 at 04:15 Multi-Ingredient Ointment (Analgesic [place]) 1 speedy PRN QID PRN TP MUSCLE PAIN Last administered on 06/07/18 22:53; Start 06/06/18 at 04:15 Al Hydroxide/Mg Hydroxide (Mylanta Plus Xs) 15 ml PRN AFTMEALHC PRN PO DYSPEPSIA; Start 06/06/18 at 04:15 Magnesium Hydroxide (Milk Of Magnesia) 2,400 mg PRN QHS PRN PO CONSTIPATION; Start 06/06/18 at 04:15 Amlodipine Besylate (Norvasc) 5 mg DAILY PO Last administered on 07/20/18 07:58 ; Start 06/06/18 at 09:00 Atorvastatin Calcium (Lipitor) 20 mg QHS PO Last administered on 07/21/18 20:23 ; Start 06/06/18 at 21:00 Clozapine (Clozaril) 100 mg BID94 PO Last administered on 06/15/18 07:44; Start 06/06/18 at 09:00; Stop 06/15/18 at 18:36; Status DC Clozapine (Clozaril) 50 mg BID94 PO Last administered on 06/15/18 07:44; Start 06/06/18 at 09:00; Stop 06/15/18 at 18:36; Status DC Cyanocobalamin (Vitamin B-12) 1,000 mcg DAILY PO Last administered on 07/21/18 08:11; Start 06/06/18 at 09:00 Divalproex Sodium (Depakote Er) 1,000 mg QHS PO Last administered on 07/21/18 20:23; Start 06/06/18 at 21:00 Vitamin D (Vitamin D3) 50,000 unit WEEKLY PO Last administered on 07/19/18 08: 06; Start 06/07/18 at 09:00 Estradiol (Estrace) 1 speedy QMTH VG Last administered on 06/08/18 15:41; Start 06/08/18 at 16:00; Stop 06/08/18 at 21:19; Status DC Furosemide (Lasix) 20 mg DAILY PO Last administered on 07/21/18 08:10; Start at 09:00 Levothyroxine Sodium (Synthroid) 75 mcg DAILY06 PO Last administered on 06:19; Start 06/06/18 at 06:00 Melatonin 6 mg PRN QHS PRN PO INSOMNIA Last administered on 06/13/18 22:23; Start 06/06/18 at 04:30 Magnesium Hydroxide (Milk Of Magnesia) 2,400 mg PRN DAILY PRN PO CONSTIPATION; Start 06/06/18 at 04:30; Status UNV Polyethylene Glycol (miraLAX) 17 gm DAILY PO Last administered on 07/21/18 08: 10; Start 06/06/18 at 09:00 Prednisolone Acetate (Pred Forte) 1 drop DAILY OD Last administered on 08:09; Start 06/06/18 at 09:00 Artificial Tears (Refresh Classic) 1 drop TID PRN PRN OU DRY EYE; Start at 04:30 Mirtazapine (Remeron) 7.5 mg QHS PO Last administered on 07/21/18 20:24; Start 06/06/18 at 21:00 Trazodone HCl (Desyrel) 100 mg PRN QHS PRN PO INSOMNIA, MAY REPEAT X3 Last administered on 06/23/18 20:10; Start 06/06/18 at 19:00 Olanzapine (ZyPREXA ZYDIS) 5 mg PRN Q2HR PRN PO PSYCHOSIS Last administered on 06/17/18 22:09; Start 06/07/18 at 14:00 Haloperidol (Haldol) 5 mg HS PO ; Start 06/07/18 at 21:00; Stop 06/07/18 at 21: 00; Status DC Haloperidol Lactate (Haldol) 5 mg DAILY IM Last administered on 06/09/18at 07:51 ; Start 06/07/18 at 19:15; Stop 06/09/18 at 09:41; Status DC Estradiol (Estrace) 1 speedy QMTH VG ; Start 06/11/18 at 21:00; Stop 06/18/18 at 11 :41; Status DC Haloperidol Lactate (Haldol) 5 mg 1X ONCE IM Last administered on 06/09/18at 09 :43; Start 06/09/18 at 09:45; Stop 06/09/18 at 09:46; Status DC Haloperidol Lactate (Haldol) 10 mg DAILY IM Last administered on 06/14/18at 08: 40; Start 06/10/18 at 09:00; Stop 06/14/18 at 13:06; Status DC Hydroxyzine HCl (Atarax) 50 mg 1X ONCE PO Last administered on 06/09/18at 17:26 ; Start 06/09/18 at 17:15; Stop 06/09/18 at 17:24; Status DC Hydroxyzine HCl (Atarax) 50 mg 1X ONCE PO Last administered on 06/09/18at 18:29 ; Start 06/09/18 at 18:25; Stop 06/09/18 at 18:26; Status DC Benztropine Mesylate (Cogentin) 1 mg QHS PO Last administered on 06/21/18at 21:57 ; Start 06/10/18 at 21:00; Stop 06/22/18 at 16:50; Status DC [place] Carbonate 300 mg HS PO Last administered on 06/13/18at 19:20; Start at 21:00; Stop 06/14/18 at 13:06; Status DC Hydroxyzine HCl (Atarax) 50 mg PRN Q2HR PRN PO SEDATION Last administered on 06/20/18at 01:30; Start 06/11/18 at 15:00 Trazodone HCl (Desyrel) 100 mg PRN 1X PRN PO insomnia Last administered on 06/12at 04:16; Start 06/12/18 at 03:15 Lorazepam (Ativan Intensol) 0.5 mg 1X ONCE SL Last administered on 06/13/18 21:51; Start 06/13/18 at 18:15; Stop 06/13/18 at 18:16; Status DC Lorazepam (Ativan) 1 mg DAILY IM Last administered on 06/23/18 08:16; Start at 09:50; Stop 06/24/18 at 15:40; Status DC Haloperidol Lactate (Haldol) 5 mg DAILY IM Last administered on 06/16/18 09:54 ; Start 06/15/18 at 09:00; Stop 06/18/18 at 10:45; Status DC [place] Carbonate 300 mg BID PO Last administered on 06/18/18 08:14; Start at 21:00; Stop 06/18/18 at 15:03; Status DC Clozapine (Clozaril) 300 mg DAILY PO Last administered on 06/27/18 08:13; Start 06/16/18 at 09:00; Stop 06/28/18 at 00:33; Status DC Clozapine (Clozaril) 25 mg DAILY PO Last administered on 06/27/18 08:13; Start 06/16/18 at 09:00; Stop 06/28/18 at 00:33; Status DC Estradiol (Estrace) 1 speedy MoTh VG Last administered on 06/18/18at 20:05; Start 06/18/18 at 21:00 [place] Carbonate 300 mg DAILY PO Last administered on 07/21/18 08:09; Start at 09:00 [place] Citrate 5.3 meq QHS PO Last administered on 07/09/18 20:56; Start at 21:00; Stop 07/10/18 at 17:09; Status DC Levothyroxine Sodium (Synthroid) 75 mcg 1X ONCE PO Last administered on 07:53; Start 06/19/18 at 07:00; Stop 06/19/18 at 07:01; Status DC Benztropine Mesylate (Cogentin) 1.5 mg QHS PO Last administered on 06/24/18 19: 58; Start 06/22/18 at 21:00; Stop 06/25/18 at 17:05; Status DC Benztropine Mesylate (Cogentin) 1 mg QHS PO Last administered on 07/02/18 19: 43; Start 06/25/18 at 21:00; Stop 07/02/18 at 21:00; Status DC Clozapine (Clozaril) 300 mg HS PO Last administered on 07/07/18 20:31; Start 06/28/18 at 21:00; Stop 07/08/18 at 15:05; Status DC Clozapine (Clozaril) 25 mg HS PO Last administered on 07/07/18 20:31; Start at 21:00; Stop 07/08/18 at 15:05; Status DC Benztropine Mesylate (Cogentin) 0.5 mg QHS PO Last administered on 07/03/18 20 :59; Start 07/03/18 at 21:00; Stop 07/04/18 at 20:59; Status DC Clozapine (Clozaril) 300 mg BID PO ; Start 07/08/18 at 21:00; Stop 07/08/18 at 21:00; Status DC Clozapine (Clozaril) 300 mg HS PO Last administered on 07/21/18 20:24; Start at 21:00 Clozapine (Clozaril) 50 mg HS PO Last administered on 07/21/18 20:24; Start at 21:00 [place] Citrate 6.67 meq HS PO Last administered on 07/21/18 20:25; Start 07/10 at 21:00 Active Scripts Active Reported Hydroxyzine Hcl 10 Mg Tablet 10 Mg PO PRN Q2HR PRN Clozapine 100 Mg Tablet 1 Tab PO 1700 Remeron (Mirtazapine) 15 Mg Tablet 1 Tab PO 1700 Depakote Er (Divalproex Sodium) 500 Mg Tab.er.24h 750 Mg PO 1700 Nystatin 15 Gm Powder 1 Speedy TP BID Lidocaine 1 Each Adh..patch 1 Each TP DAILY Lotrimin Af (Clotrimazole) 12 Gm Cream..g. 1 Speedy TP BID PRN Sorbitol (Sorbitol Solution) 1 Ml Solution 30 Ml PO PRN DAILY PRN Trazodone Hcl 50 Mg Tablet 100 Mg PO QHS PRN Elmer-128 (Sodium Chloride) 3.5 Gm Oint...g. 1 Speedy OP HS Lipitor (Atorvastatin Calcium) 20 Mg Tablet 20 Mg PO DAILYWSUP Levothyroxine Sodium 75 Mcg Tablet 75 Mcg PO DAILYAC Estrace (Estradiol) 42.5 Gm Cream.appl 1 Speedy VG 2X WEEK Q FRI, Endocet 10-325 Mg Tablet (Oxycodone Hcl/Acetaminophen) 1 Each Tablet 1 Each PO PRN Q6HRS PRN Vitamin B-12 (Cyanocobalamin (Vitamin B-12)) 1,000 Mcg Tablet 1,000 Mcg PO DAILY Maalox Advanced Suspension (Mag Hydrox/Aluminum Hyd/Simeth) 355 Ml Oral.susp 15 Ml PO PRN AFTMEALHC PRN Analgesic [place] (Methyl Salicylate/Menthol) 28 Gm Oint...g. 1 Speedy TP PRN QID PRN Risperidone 1 Mg Tablet 1.5 Mg PO 1700 Refresh Classic Eye Drops (Polyvinyl Alcohol/Povidone/Pf) 1 Each Droperette 1 Each OU TID PRN Trazodone Hcl 50 Mg Tablet 100 Mg PO DAILYWSUP Norvasc (Amlodipine Besylate) 5 Mg Tablet 10 Mg PO DAILY Miralax (Polyethylene Glycol 3350) 17 Gm Powd.pack 17 Gm PO DAILY Milk Of Magnesia (Magnesium Hydroxide) 2,400 Mg/10 Ml Oral.susp 2,400 Mg PO PRN DAILY PRN Tylenol (Acetaminophen) 325 Mg Tablet 650 Mg PO PRN Q6HRS PRN I have reviewed the current psychotropics carefully including drug interactions. Risk benefit ratio favors no change other than as noted in my dictated progress note. 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
--- NOTE | 2018-07-22 01:34 | NUR ---
Nursing Note The patient was located in the day room for her medications and assessment. The patient took her medications whole. The patient was appropriate during interactions with this nurse. The patient is currently sleeping in her room.
[2018-07-22 05:49] VITALS: BP 113/73
[2018-07-22] MEDS: LEVOTHYROXINE 75 MCG TABLET PO SCH (06:01)
[2018-07-22] MEDS: amLODIPine BESYLATE 5 MG TABLET PO SCH (08:39)
[2018-07-22] MEDS: POLYETHYLENE GLYCOL 3350 17 GM PACKET. PO SCH (08:39)
[2018-07-22] MEDS: prednisoLONE ACETATE 1% OPHTH SUSPENSION 5ML BOTTLE. OD SCH (08:39)
[2018-07-22] MEDS: LITHIUM CARBONATE 300 MG TABLET PO SCH (08:39)
[2018-07-22] MEDS: CYANOCOBALAMIN (VITAMIN B-12) 1,000 MCG TABLET. PO SCH (08:39)
[2018-07-22] MEDS: FUROSEMIDE 20 MG TABLET PO SCH (08:39)
[2018-07-22 16:19] VITALS: BP 119/76
--- NOTE | 2018-07-22 17:14 | NUR ---
Patient spends most of her time withdrawn to her room. Compliant with medication. Patient showered self and was cooperative with staff. visited patient, they appeared to have a nice visit. Patient has no manic behavior, hallucinations or delusions at this time.
[2018-07-22] MEDS: cloZAPine 100 MG TABLET PO SCH (19:59)
[2018-07-22] MEDS: cloZAPine 25 MG TABLET PO SCH (19:59)
[2018-07-22] MEDS: MIRTAZAPINE 7.5 MG TABLET. PO SCH (20:00)
[2018-07-22] MEDS: DIVALPROEX ER 500 MG TAB.ER.24H PO SCH (20:00)
[2018-07-22] MEDS: LITHIUM CITRATE PO SCH (20:00)
[2018-07-22] MEDS: ATORVASTATIN CALCIUM 20 MG TABLET PO SCH (20:00)
--- NOTE | 2018-07-22 22:23 | PDOC ---
Exam Note: Julian Note: Please also refer to the separate dictated note~for this date of service dictated separately.~Patient seen individually. Discussed the patient with Nursing staff reviewed the chart.~Reviewed interim history and current functioning. Reviewed vital signs,~Labs/ Radiology~and current medications noted below. Continue current treatment with the changes noted in the dictated addendum note Assessment: Vital Signs: Vital Signs Date Time Temp Pulse Resp B/P (MAP) Pulse Ox O2 Delivery O2 Flow Rate FiO2 07/22/18 16:19 98.0 97 20 119/76 (90) 98 07/21/18 16:24 Room Air I&O Intake and Output 07/22/18 06:59 Intake Total 1325 ml Balance 1325 ml Intake Oral 1325 ml Current Medications: Meds: Current Medications Acetaminophen (Tylenol) 650 mg PRN Q6HRS PRN PO PAIN / TEMP Last administered on 06/23/18 05:51; Start 06/06/18 at 04:15 Multi-Ingredient Ointment (Analgesic [place]) 1 speedy PRN QID PRN TP MUSCLE PAIN Last administered on 06/07/18at 22:53; Start 06/06/18 at 04:15 Al Hydroxide/Mg Hydroxide (Mylanta Plus Xs) 15 ml PRN AFTMEALHC PRN PO DYSPEPSIA; Start 06/06/18 at 04:15 Magnesium Hydroxide (Milk Of Magnesia) 2,400 mg PRN QHS PRN PO CONSTIPATION; Start 06/06/18 at 04:15 Amlodipine Besylate (Norvasc) 5 mg DAILY PO Last administered on 07/22/18at 08:39 ; Start 06/06/18 at 09:00 Atorvastatin Calcium (Lipitor) 20 mg QHS PO Last administered on 07/22/18at 20:00 ; Start 06/06/18 at 21:00 Clozapine (Clozaril) 100 mg BID94 PO Last administered on 06/15/18at 07:44; Start 06/06/18 at 09:00; Stop 06/15/18 at 18:36; Status DC Clozapine (Clozaril) 50 mg BID94 PO Last administered on 06/15/18at 07:44; Start 06/06/18 at 09:00; Stop 06/15/18 at 18:36; Status DC Cyanocobalamin (Vitamin B-12) 1,000 mcg DAILY PO Last administered on 07/22/18 08:39; Start 06/06/18 at 09:00 Divalproex Sodium (Depakote Er) 1,000 mg QHS PO Last administered on 07/22/18 20:00; Start 06/06/18 at 21:00 Vitamin D (Vitamin D3) 50,000 unit WEEKLY PO Last administered on 07/19/18 08: 06; Start 06/07/18 at 09:00 Estradiol (Estrace) 1 speedy QMTH VG Last administered on 06/08/18 15:41; Start 06/08/18 at 16:00; Stop 06/08/18 at 21:19; Status DC Furosemide (Lasix) 20 mg DAILY PO Last administered on 07/22/18 08:39; Start at 09:00 Levothyroxine Sodium (Synthroid) 75 mcg DAILY06 PO Last administered on 06:01; Start 06/06/18 at 06:00 Melatonin 6 mg PRN QHS PRN PO INSOMNIA Last administered on 06/13/18 22:23; Start 06/06/18 at 04:30 Magnesium Hydroxide (Milk Of Magnesia) 2,400 mg PRN DAILY PRN PO CONSTIPATION; Start 06/06/18 at 04:30; Status UNV Polyethylene Glycol (miraLAX) 17 gm DAILY PO Last administered on 07/22/18 08: 39; Start 06/06/18 at 09:00 Prednisolone Acetate (Pred Forte) 1 drop DAILY OD Last administered on 08:39; Start 06/06/18 at 09:00 Artificial Tears (Refresh Classic) 1 drop TID PRN PRN OU DRY EYE; Start at 04:30 Mirtazapine (Remeron) 7.5 mg QHS PO Last administered on 07/22/18 20:00; Start 06/06/18 at 21:00 Trazodone HCl (Desyrel) 100 mg PRN QHS PRN PO INSOMNIA, MAY REPEAT X3 Last administered on 06/23/18 20:10; Start 06/06/18 at 19:00 Olanzapine (ZyPREXA ZYDIS) 5 mg PRN Q2HR PRN PO PSYCHOSIS Last administered on 1/30/19at 22:09; Start 06/07/18 at 14:00 Haloperidol (Haldol) 5 mg HS PO ; Start 06/07/18 at 21:00; Stop 06/07/18 at 21: 00; Status DC Haloperidol Lactate (Haldol) 5 mg DAILY IM Last administered on 06/09/18at 07:51 ; Start 06/07/18 at 19:15; Stop 06/09/18 at 09:41; Status DC Estradiol (Estrace) 1 speedy QMTH VG ; Start 06/11/18 at 21:00; Stop 06/18/18 at 11 :41; Status DC Haloperidol Lactate (Haldol) 5 mg 1X ONCE IM Last administered on 06/09/18at 09 :43; Start 06/09/18 at 09:45; Stop 06/09/18 at 09:46; Status DC Haloperidol Lactate (Haldol) 10 mg DAILY IM Last administered on 06/14/18at 08: 40; Start 06/10/18 at 09:00; Stop 06/14/18 at 13:06; Status DC Hydroxyzine HCl (Atarax) 50 mg 1X ONCE PO Last administered on 06/09/18at 17:26 ; Start 06/09/18 at 17:15; Stop 06/09/18 at 17:24; Status DC Hydroxyzine HCl (Atarax) 50 mg 1X ONCE PO Last administered on 06/09/18at 18:29 ; Start 06/09/18 at 18:25; Stop 06/09/18 at 18:26; Status DC Benztropine Mesylate (Cogentin) 1 mg QHS PO Last administered on 06/21/18at 21:57 ; Start 06/10/18 at 21:00; Stop 06/22/18 at 16:50; Status DC [place] Carbonate 300 mg HS PO Last administered on 06/13/18at 19:20; Start at 21:00; Stop 06/14/18 at 13:06; Status DC Hydroxyzine HCl (Atarax) 50 mg PRN Q2HR PRN PO SEDATION Last administered on 01:30; Start 06/11/18 at 15:00 Trazodone HCl (Desyrel) 100 mg PRN 1X PRN PO insomnia Last administered on 06/12at 04:16; Start 06/12/18 at 03:15 Lorazepam (Ativan Intensol) 0.5 mg 1X ONCE SL Last administered on 06/13/18at 21:51; Start 06/13/18 at 18:15; Stop 06/13/18 at 18:16; Status DC Lorazepam (Ativan) 1 mg DAILY IM Last administered on 06/23/18 08:16; Start at 09:50; Stop 06/24/18 at 15:40; Status DC Haloperidol Lactate (Haldol) 5 mg DAILY IM Last administered on 06/16/18at 09:54 ; Start 06/15/18 at 09:00; Stop 06/18/18 at 10:45; Status DC [place] Carbonate 300 mg BID PO Last administered on 06/18/18 08:14; Start at 21:00; Stop 06/18/18 at 15:03; Status DC Clozapine (Clozaril) 300 mg DAILY PO Last administered on 06/27/18 08:13; Start 06/16/18 at 09:00; Stop 06/28/18 at 00:33; Status DC Clozapine (Clozaril) 25 mg DAILY PO Last administered on 06/27/18 08:13; Start 06/16/18 at 09:00; Stop 06/28/18 at 00:33; Status DC Estradiol (Estrace) 1 speedy MoTh VG Last administered on 06/18/18at 20:05; Start 06/18/18 at 21:00 [place] Carbonate 300 mg DAILY PO Last administered on 07/22/18 08:39; Start at 09:00 [place] Citrate 5.3 meq QHS PO Last administered on 07/09/18 20:56; Start at 21:00; Stop 07/10/18 at 17:09; Status DC Levothyroxine Sodium (Synthroid) 75 mcg 1X ONCE PO Last administered on 07:53; Start 06/19/18 at 07:00; Stop 06/19/18 at 07:01; Status DC Benztropine Mesylate (Cogentin) 1.5 mg QHS PO Last administered on 06/24/18 19: 58; Start 06/22/18 at 21:00; Stop 06/25/18 at 17:05; Status DC Benztropine Mesylate (Cogentin) 1 mg QHS PO Last administered on 07/02/18 19: 43; Start 06/25/18 at 21:00; Stop 07/02/18 at 21:00; Status DC Clozapine (Clozaril) 300 mg HS PO Last administered on 07/07/18 20:31; Start 06/28/18 at 21:00; Stop 07/08/18 at 15:05; Status DC Clozapine (Clozaril) 25 mg HS PO Last administered on 07/07/18 20:31; Start at 21:00; Stop 07/08/18 at 15:05; Status DC Benztropine Mesylate (Cogentin) 0.5 mg QHS PO Last administered on 07/03/18 20 :59; Start 07/03/18 at 21:00; Stop 07/04/18 at 20:59; Status DC Clozapine (Clozaril) 300 mg BID PO ; Start 07/08/18 at 21:00; Stop 07/08/18 at 21:00; Status DC Clozapine (Clozaril) 300 mg HS PO Last administered on 07/22/18 19:59; Start at 21:00 Clozapine (Clozaril) 50 mg HS PO Last administered on 07/22/18 19:59; Start at 21:00 [place] Citrate 6.67 meq HS PO Last administered on 07/22/18 20:00; Start 07/10 at 21:00 Active Scripts Active Reported Hydroxyzine Hcl 10 Mg Tablet 10 Mg PO PRN Q2HR PRN Clozapine 100 Mg Tablet 1 Tab PO 1700 Remeron (Mirtazapine) 15 Mg Tablet 1 Tab PO 1700 Depakote Er (Divalproex Sodium) 500 Mg Tab.er.24h 750 Mg PO 1700 Nystatin 15 Gm Powder 1 Speedy TP BID Lidocaine 1 Each Adh..patch 1 Each TP DAILY Lotrimin Af (Clotrimazole) 12 Gm Cream..g. 1 Speedy TP BID PRN Sorbitol (Sorbitol Solution) 1 Ml Solution 30 Ml PO PRN DAILY PRN Trazodone Hcl 50 Mg Tablet 100 Mg PO QHS PRN Elmer-128 (Sodium Chloride) 3.5 Gm Oint...g. 1 Speedy OP HS Lipitor (Atorvastatin Calcium) 20 Mg Tablet 20 Mg PO DAILYWSUP Levothyroxine Sodium 75 Mcg Tablet 75 Mcg PO DAILYAC Estrace (Estradiol) 42.5 Gm Cream.appl 1 Speedy VG 2X WEEK Q MON, THURS Endocet 10-325 Mg Tablet (Oxycodone Hcl/Acetaminophen) 1 Each Tablet 1 Each PO PRN Q6HRS PRN Vitamin B-12 (Cyanocobalamin (Vitamin B-12)) 1,000 Mcg Tablet 1,000 Mcg PO DAILY Maalox Advanced Suspension (Mag Hydrox/Aluminum Hyd/Simeth) 355 Ml Oral.susp 15 Ml PO PRN AFTMEALHC PRN Analgesic [place] (Methyl Salicylate/Menthol) 28 Gm Oint...g. 1 Speedy TP PRN QID PRN Risperidone 1 Mg Tablet 1.5 Mg PO 1700 Refresh Classic Eye Drops (Polyvinyl Alcohol/Povidone/Pf) 1 Each Droperette 1 Each OU TID PRN Trazodone Hcl 50 Mg Tablet 100 Mg PO DAILYWSUP Norvasc (Amlodipine Besylate) 5 Mg Tablet 10 Mg PO DAILY Miralax (Polyethylene Glycol 3350) 17 Gm Powd.pack 17 Gm PO DAILY Milk Of Magnesia (Magnesium Hydroxide) 2,400 Mg/10 Ml Oral.susp 2,400 Mg PO PRN DAILY PRN Tylenol (Acetaminophen) 325 Mg Tablet 650 Mg PO PRN Q6HRS PRN I have reviewed the current psychotropics carefully including drug interactions. Risk benefit ratio favors no change other than as noted in my dictated progress note. 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
--- NOTE | 2018-07-22 22:27 | PN ---
DATE: 07/21/2018 PSYCHIATRIC PROGRESS NOTE This late entry 07/21/2018 covers elements not covered in my initial note. SUBJECTIVE: I met with the patient in the evening. The patient slept 7-1/2 hours previous evening. She remains quite appropriate on the unit and the manic, grandiose, psychotic symptoms are much more stabilized. She gets a little anxious, hyperverbal at times, able to correct it. REVIEW OF SYSTEMS: No CV, , pulmonary, eye, ENT system symptoms on review. MENTAL STATUS EXAM: Reasonably oriented. Speech otherwise coherent. Abstraction fair, computation impaired, language function intact, attention span short. Mood and affect is improved. I discussed discharge plans and from my side, there has been several days since she has been stable enough to be discharged. Social service staff are addressing appropriate placement and I have discussed this with him several times. LABORATORY DATA: Reviewed. IMPRESSION: Unchanged from initial note. PLAN: No change from initial note. KIERSTEN WATT MD DR: SANCHEZ/fredrick JOB#: [id number] / [id number]
--- NOTE | 2018-07-23 03:22 | NUR ---
Nursing Note The patient was compliant with her medications and took them whole. The patient was appropriate with all interactions with staff. The Patient is currently sleeping in her room.
[2018-07-23] MEDS: LEVOTHYROXINE 75 MCG TABLET PO SCH (06:08)
[2018-07-23 06:10] VITALS: BP 127/81
[2018-07-23] MEDS: LITHIUM CARBONATE 300 MG TABLET PO SCH (07:22)
[2018-07-23] MEDS: amLODIPine BESYLATE 5 MG TABLET PO SCH (07:23)
[2018-07-23] MEDS: POLYETHYLENE GLYCOL 3350 17 GM PACKET. PO SCH (07:23)
[2018-07-23] MEDS: FUROSEMIDE 20 MG TABLET PO SCH (07:23)
[2018-07-23] MEDS: CYANOCOBALAMIN (VITAMIN B-12) 1,000 MCG TABLET. PO SCH (07:23)
[2018-07-23] MEDS: prednisoLONE ACETATE 1% OPHTH SUSPENSION 5ML BOTTLE. OD SCH (07:46)
--- NOTE | 2018-07-23 09:31 | NUR ---
WEEKLY ACTIVITY THERAPY NOTE Date of Admission: 06/06/2018 Date of AT Assessment: 06/07/2018 Goal aimed: to increase attention span and engagement Initial Goal: Pt. will participate in all Activity Therapy groups offered (Pt. set goal for self) Goal changed 06/18/2018- Pt. will participate in at least three (Activity Therapy) groups or individual activities per week. Weekly progress towards goal: achieved Group participation level: minimal Behaviors observed: full participation Friday with balloon activity. Good attitude, enjoys music trivia activity. Spends most time in room, away from group. Attitude changes throughout the week for smiling and interacting with others to quiet and withdrawn Plan: no change to goal
--- NOTE | 2018-07-23 10:32 | NUR ---
WEEKLY NOTE: Pt is eating 100% and sleeping 7.5 hours. Pt is stable on her [place] at this time and will have a repeat level. Pt is minimally participating in group therapy. [facility] potential to go to a Level [facility] from there.
--- NOTE | 2018-07-23 14:00 | NUR ---
SW received a call from Maynor, pt dtr, who reports that she received a call from [facility] discussing pt returning back to them. SW reports that it was discussed as pt does not have a place and will need to be discharged [facility]. Pt dtr understands that pt has "worn out her welcome" but believes it to be detrimental for her to return there as they have no provided the best care for her mother. Some of this Maynor does believe has to do with pt as he tends to "open his mouth a lot". Pt dtr will continue to work with her father and the facility in making sure pt gets what she needs until she can transfer to a Level II facility. Maynor and pt are leery about the intentions of [facility] and just don't feel they have the pt best interest in mind.
[2018-07-23 16:28] VITALS: BP 124/77
--- NOTE | 2018-07-23 17:00 | NUR ---
SW met with pt to discuss the factor that pt needed to leave [facility]. Pt has been stable now for 3 weeks and will need to discharge back to [place] [facility] to await her Level II placement. Pt does not want this to be so. He has asked that SW send out referrals to [facility] for [facility] and see if they would be able to take her right away. SW and pt discussed his concerns as to why pt should not return to [facility], which is primarily due to their inconsistencies in passing pt her medications and the fact that she has been sent out multiple times for services, when the family has requested multiple times that pt see a psychiatrist instead of the facility biomedical equipment specialist. SW informed Hardik that SW did ask for them to find a psychiatrist to see pt right away; the SW at [facility] reported checking in with [facility] [place] to see if they can get pt services there. Pt does not want services there as he reports "they did nothing for Britni". Pt is very frustrated and does not want pt moved until a Level II facility feels that they can take pt. SW explained that she would have to be moved no later than Friday. That she cannot stay here. Pt wants to speak with his daughter and will get back to in the morning.
[2018-07-23] MEDS: MIRTAZAPINE 7.5 MG TABLET. PO SCH (20:11)
[2018-07-23] MEDS: DIVALPROEX ER 500 MG TAB.ER.24H PO SCH (20:12)
[2018-07-23] MEDS: cloZAPine 100 MG TABLET PO SCH (20:12)
[2018-07-23] MEDS: LITHIUM CITRATE PO SCH (20:12)
[2018-07-23] MEDS: ATORVASTATIN CALCIUM 20 MG TABLET PO SCH (20:12)
[2018-07-23] MEDS: cloZAPine 25 MG TABLET PO SCH (20:12)
[2018-07-23] MEDS: ESTRADIOL 0.01% VAGINAL CREAM 42.5GM TUBE. VG SCH (21:00)
--- NOTE | 2018-07-23 22:16 | PDOC ---
Exam Note: Julian Note: Please also refer to the separate dictated note~for this date of service dictated separately.~Patient seen individually. Discussed the patient with Nursing staff reviewed the chart.~Reviewed interim history and current functioning. Reviewed vital signs,~Labs/ Radiology~and current medications noted below. Continue current treatment with the changes noted in the dictated addendum note Assessment: Vital Signs: Vital Signs Date Time Temp Pulse Resp B/P (MAP) Pulse Ox O2 Delivery O2 Flow Rate FiO2 07/23/18 16:28 97.9 94 19 124/77 (93) 99 Room Air I&O Intake and Output 07/23/18 06:59 Intake Total 1680 ml Balance 1680 ml Intake Oral 1680 ml # Voids 1 Current Medications: Meds: Current Medications Acetaminophen (Tylenol) 650 mg PRN Q6HRS PRN PO PAIN / TEMP Last administered on 06/23/18 05:51; Start 06/06/18 at 04:15 Multi-Ingredient Ointment (Analgesic [place]) 1 speedy PRN QID PRN TP MUSCLE PAIN Last administered on 06/07/18at 22:53; Start 06/06/18 at 04:15 Al Hydroxide/Mg Hydroxide (Mylanta Plus Xs) 15 ml PRN AFTMEALHC PRN PO DYSPEPSIA; Start 06/06/18 at 04:15 Magnesium Hydroxide (Milk Of Magnesia) 2,400 mg PRN QHS PRN PO CONSTIPATION; Start 06/06/18 at 04:15 Amlodipine Besylate (Norvasc) 5 mg DAILY PO Last administered on 07/23/18at 07:23 ; Start 06/06/18 at 09:00 Atorvastatin Calcium (Lipitor) 20 mg QHS PO Last administered on 07/23/18at 20:12 ; Start 06/06/18 at 21:00 Clozapine (Clozaril) 100 mg [id number] PO Last administered on 06/15/18at 07:44; Start 06/06/18 at 09:00; Stop 06/15/18 at 18:36; Status DC Clozapine (Clozaril) 50 mg BID94 PO Last administered on 06/15/18at 07:44; Start 06/06/18 at 09:00; Stop 06/15/18 at 18:36; Status DC Cyanocobalamin (Vitamin B-12) 1,000 mcg DAILY PO Last administered on 07/23/18 07:23; Start 06/06/18 at 09:00 Divalproex Sodium (Depakote Er) 1,000 mg QHS PO Last administered on 07/23/18 20:12; Start 06/06/18 at 21:00 Vitamin D (Vitamin D3) 50,000 unit WEEKLY PO Last administered on 07/19/18 08: 06; Start 06/07/18 at 09:00 Estradiol (Estrace) 1 speedy QMTH VG Last administered on 06/08/18 15:41; Start 06/08/18 at 16:00; Stop 06/08/18 at 21:19; Status DC Furosemide (Lasix) 20 mg DAILY PO Last administered on 07/23/18 07:23; Start at 09:00 Levothyroxine Sodium (Synthroid) 75 mcg DAILY06 PO Last administered on 06:08; Start 06/06/18 at 06:00 Melatonin 6 mg PRN QHS PRN PO INSOMNIA Last administered on 06/13/18 22:23; Start 06/06/18 at 04:30 Magnesium Hydroxide (Milk Of Magnesia) 2,400 mg PRN DAILY PRN PO CONSTIPATION; Start 06/06/18 at 04:30; Status UNV Polyethylene Glycol (miraLAX) 17 gm DAILY PO Last administered on 07/23/18 07: 23; Start 06/06/18 at 09:00 Prednisolone Acetate (Pred Forte) 1 drop DAILY OD Last administered on 07:46; Start 06/06/18 at 09:00 Artificial Tears (Refresh Classic) 1 drop TID PRN PRN OU DRY EYE; Start at 04:30 Mirtazapine (Remeron) 7.5 mg QHS PO Last administered on 07/23/18 20:11; Start 06/06/18 at 21:00 Trazodone HCl (Desyrel) 100 mg PRN QHS PRN PO INSOMNIA, MAY REPEAT X3 Last administered on 06/23/18 20:10; Start 06/06/18 at 19:00 Olanzapine (ZyPREXA ZYDIS) 5 mg PRN Q2HR PRN PO PSYCHOSIS Last administered on 06/17/18 22:09; Start 06/07/18 at 14:00 Haloperidol (Haldol) 5 mg HS PO ; Start 06/07/18 at 21:00; Stop 06/07/18 at 21: 00; Status DC Haloperidol Lactate (Haldol) 5 mg DAILY IM Last administered on 06/09/18at 07:51 ; Start 06/07/18 at 19:15; Stop 06/09/18 at 09:41; Status DC Estradiol (Estrace) 1 speedy QMTH VG ; Start 06/11/18 at 21:00; Stop 06/18/18 at 11 :41; Status DC Haloperidol Lactate (Haldol) 5 mg 1X ONCE IM Last administered on 06/09/18at 09 :43; Start 06/09/18 at 09:45; Stop 06/09/18 at 09:46; Status DC Haloperidol Lactate (Haldol) 10 mg DAILY IM Last administered on 06/14/18at 08: 40; Start 06/10/18 at 09:00; Stop 06/14/18 at 13:06; Status DC Hydroxyzine HCl (Atarax) 50 mg 1X ONCE PO Last administered on 06/09/18at 17:26 ; Start 06/09/18 at 17:15; Stop 06/09/18 at 17:24; Status DC Hydroxyzine HCl (Atarax) 50 mg 1X ONCE PO Last administered on 06/09/18at 18:29 ; Start 06/09/18 at 18:25; Stop 06/09/18 at 18:26; Status DC Benztropine Mesylate (Cogentin) 1 mg QHS PO Last administered on 06/21/18at 21:57 ; Start 06/10/18 at 21:00; Stop 06/22/18 at 16:50; Status DC [place] Carbonate 300 mg HS PO Last administered on 06/13/18at 19:20; Start at 21:00; Stop 06/14/18 at 13:06; Status DC Hydroxyzine HCl (Atarax) 50 mg PRN Q2HR PRN PO SEDATION Last administered on 06/20/18at 01:30; Start 06/11/18 at 15:00 Trazodone HCl (Desyrel) 100 mg PRN 1X PRN PO insomnia Last administered on 06/12at 04:16; Start 06/12/18 at 03:15 Lorazepam (Ativan Intensol) 0.5 mg 1X ONCE SL Last administered on 06/13/18at 21:51; Start 06/13/18 at 18:15; Stop 06/13/18 at 18:16; Status DC Lorazepam (Ativan) 1 mg DAILY IM Last administered on 06/23/18 08:16; Start at 09:50; Stop 06/24/18 at 15:40; Status DC Haloperidol Lactate (Haldol) 5 mg DAILY IM Last administered on 06/16/18at 09:54 ; Start 06/15/18 at 09:00; Stop 06/18/18 at 10:45; Status DC [place] Carbonate 300 mg BID PO Last administered on 06/18/18at 08:14; Start at 21:00; Stop 06/18/18 at 15:03; Status DC Clozapine (Clozaril) 300 mg DAILY PO Last administered on 06/27/18 08:13; Start 06/16/18 at 09:00; Stop 06/28/18 at 00:33; Status DC Clozapine (Clozaril) 25 mg DAILY PO Last administered on 06/27/18 08:13; Start 06/16/18 at 09:00; Stop 06/28/18 at 00:33; Status DC Estradiol (Estrace) 1 speedy MoTh VG Last administered on 06/18/18at 20:05; Start 06/18/18 at 21:00 [place] Carbonate 300 mg DAILY PO Last administered on 07/23/18at 07:22; Start at 09:00 [place] Citrate 5.3 meq QHS PO Last administered on 07/09/18at 20:56; Start at 21:00; Stop 07/10/18 at 17:09; Status DC Levothyroxine Sodium (Synthroid) 75 mcg 1X ONCE PO Last administered on 07:53; Start 06/19/18 at 07:00; Stop 06/19/18 at 07:01; Status DC Benztropine Mesylate (Cogentin) 1.5 mg QHS PO Last administered on 06/24/18 19: 58; Start 06/22/18 at 21:00; Stop 06/25/18 at 17:05; Status DC Benztropine Mesylate (Cogentin) 1 mg QHS PO Last administered on 07/02/18 19: 43; Start 06/25/18 at 21:00; Stop 07/02/18 at 21:00; Status DC Clozapine (Clozaril) 300 mg HS PO Last administered on 07/07/18 20:31; Start 06/28/18 at 21:00; Stop 07/08/18 at 15:05; Status DC Clozapine (Clozaril) 25 mg HS PO Last administered on 07/07/18 20:31; Start at 21:00; Stop 07/08/18 at 15:05; Status DC Benztropine Mesylate (Cogentin) 0.5 mg QHS PO Last administered on 07/03/18 20 :59; Start 07/03/18 at 21:00; Stop 07/04/18 at 20:59; Status DC Clozapine (Clozaril) 300 mg BID PO ; Start 07/08/18 at 21:00; Stop 07/08/18 at 21:00; Status DC Clozapine (Clozaril) 300 mg HS PO Last administered on 07/23/18 20:12; Start at 21:00 Clozapine (Clozaril) 50 mg HS PO Last administered on 07/23/18 20:12; Start at 21:00 [place] Citrate 6.67 meq HS PO Last administered on 07/23/18 20:12; Start 07/10 at 21:00 Active Scripts Active Reported Hydroxyzine Hcl 10 Mg Tablet 10 Mg PO PRN Q2HR PRN Clozapine 100 Mg Tablet 1 Tab PO 1700 Remeron (Mirtazapine) 15 Mg Tablet 1 Tab PO 1700 Depakote Er (Divalproex Sodium) 500 Mg Tab.er.24h 750 Mg PO 1700 Nystatin 15 Gm Powder 1 Speedy TP BID Lidocaine 1 Each Adh..patch 1 Each TP DAILY Lotrimin Af (Clotrimazole) 12 Gm Cream..g. 1 Speedy TP BID PRN Sorbitol (Sorbitol Solution) 1 Ml Solution 30 Ml PO PRN DAILY PRN Trazodone Hcl 50 Mg Tablet 100 Mg PO QHS PRN Elmer-128 (Sodium Chloride) 3.5 Gm Oint...g. 1 Speedy OP HS Lipitor (Atorvastatin Calcium) 20 Mg Tablet 20 Mg PO DAILYWSUP Levothyroxine Sodium 75 Mcg Tablet 75 Mcg PO DAILYAC Estrace (Estradiol) 42.5 Gm Cream.appl 1 Speedy VG 2X WEEK Q FRI, URS Endocet 10-325 Mg Tablet (Oxycodone Hcl/Acetaminophen) 1 Each Tablet 1 Each PO PRN Q6HRS PRN Vitamin B-12 (Cyanocobalamin (Vitamin B-12)) 1,000 Mcg Tablet 1,000 Mcg PO DAILY Maalox Advanced Suspension (Mag Hydrox/Aluminum Hyd/Simeth) 355 Ml Oral.susp 15 Ml PO PRN AFTMEALHC PRN Analgesic [place] (Methyl Salicylate/Menthol) 28 Gm Oint...g. 1 Speedy TP PRN QID PRN Risperidone 1 Mg Tablet 1.5 Mg PO 1700 Refresh Classic Eye Drops (Polyvinyl Alcohol/Povidone/Pf) 1 Each Droperette 1 Each OU TID PRN Trazodone Hcl 50 Mg Tablet 100 Mg PO DAILYWSUP Norvasc (Amlodipine Besylate) 5 Mg Tablet 10 Mg PO DAILY Miralax (Polyethylene Glycol 3350) 17 Gm Powd.pack 17 Gm PO DAILY Milk Of Magnesia (Magnesium Hydroxide) 2,400 Mg/10 Ml Oral.susp 2,400 Mg PO PRN DAILY PRN Tylenol (Acetaminophen) 325 Mg Tablet 650 Mg PO PRN Q6HRS PRN I have reviewed the current psychotropics carefully including drug interactions. Risk benefit ratio favors no change other than as noted in my dictated progress note. 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
--- NOTE | 2018-07-24 02:49 | NUR ---
Nursing Note The patient was calm and compliant with cares and medications. The patient took her medications whole and was appropriate with interactions with staff and peers. The patient is currently sleeping in her room.
[2018-07-24] MEDS: LEVOTHYROXINE 75 MCG TABLET PO SCH (06:36)
[2018-07-24 06:49] VITALS: BP 120/73
[2018-07-24] MEDS: FUROSEMIDE 20 MG TABLET PO SCH (08:03)
[2018-07-24] MEDS: CYANOCOBALAMIN (VITAMIN B-12) 1,000 MCG TABLET. PO SCH (08:03)
[2018-07-24] MEDS: LITHIUM CARBONATE 300 MG TABLET PO SCH (08:03)
[2018-07-24] MEDS: prednisoLONE ACETATE 1% OPHTH SUSPENSION 5ML BOTTLE. OD SCH (08:04)
[2018-07-24] MEDS: amLODIPine BESYLATE 5 MG TABLET PO SCH (08:04)
[2018-07-24] MEDS: POLYETHYLENE GLYCOL 3350 17 GM PACKET. PO SCH (08:04)
--- NOTE | 2018-07-24 11:15 | NUR ---
ROSALINE contacted Hardik, pt to inform him that SW was told pt must leave today. Whether that means pt returns to [facility] or pt going home with her ; pt can no longer stay as she has been stable for the last 3 weeks and should have been dismissed sooner. Hardik stated "some of that time was out of both of our hands as the state statutes that until her Level II screen is completed, she couldn't be moved". ROSALINE empathized and reports that multiple level II facilities have been contacted and referrals have been sent. Once pt returns to [facility], they will just have to follow up on the referral that ROSALINE sent out. Pt wants the medication list to be sent out [facility] "[facility] has a way of not filling her medications until it's too late". Through this process, ROSALINE has also been in contact with pt dtr who understood and thanked SW and the team for the care provided to her mother. "No one has advocated for my mother like you have before and please know it is greatly appreciated". Pt dtr has requested that pt sign a medical records release in order to get information so that they can follow up on the referrals that SW sent out.
--- NOTE | 2018-07-24 13:44 | NUR ---
PLACEMENT UPDATE -- Referrals sent to the following: [facility] -- full [facility] -- [facility] -- 1 male [facility] -- full Keyla -- 1 male and 1 female [facility] -- full Sue -- full [facility] -- 3 male and 3 female [facility] -- "we have tons of beds open" [facility] -- 1 male and 1 female
--- NOTE | 2018-07-24 14:35 | NUR ---
[facility] Social Work Discharge Planning Form Patient Name CRISTAL POLLARD Admit Date: DISCHARGE PLAN Discharge Destination: [facility] Assessment: Completed Level II Assessment: Completed and approved for Level II placement Transportation: Pt to pick pt up around 1600 and will transfer to the facility Special Instructions/Notes: DISCHARGE TO FACILITY Facility: [facility] Address: [address] [place] [address] Contact Name: Kaylin Tapia SW: Contact Name: Ask for nurse, Maureen, to give nursing report PCP: Dr. Toy Pizano
[2018-07-24] MEDS ORDERED: CHOL500021 PO (15:01)
[2018-07-24] MEDS ORDERED: FURO20TA3 PO (15:01)
[2018-07-24] MEDS ORDERED: LITH300C PO (15:03)
[2018-07-24] MEDS ORDERED: LITH8SOL PO (15:05)
[2018-07-24] MEDS ORDERED: MELA3TAB2 PO (15:06)
[2018-07-24] MEDS ORDERED: OLAN5TAB5 PO (15:08)
[2018-07-24] MEDS ORDERED: PRED5DRO16 OD (15:10)
[2018-07-24 15:38] VITALS: BP 123/75
--- NOTE | 2018-07-24 17:58 | NUR ---
Transition Record was faxed to follow-up provider with the following elements: Reason for admission, procedures, tests, principal diagnosis, pending studies, patient instructions, 09/12 contact information for unit, phone number to obtain pending test results, plan for follow-up care, physician follow-up, advanced directive information, and medication list with dose, duration and instructions. This information was included in the following documents: History and physical, lab results, study results, progress notes, social work planning form, DC instruction form, patient visit summary, and medication reconciliation form. Date & time record faxed: 07/24/2018 @1549 Record faxed to: [facility] Record discussed with/ report given to: WANDA Reddy
--- NOTE | 2018-07-24 18:59 | DS ---
DATE OF DISCHARGE: 07/24/2018 DISCHARGE SUMMARY/PSYCHIATRIC PROGRESS NOTE This note covers elements not covered in my initial note of 07/24/2017. REASON FOR ADMISSION: Please refer to the admission history for details. Briefly, the patient is a 68-year-old female referred to us from [facility] on account recurrence of her significant psychosis and amita. 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 She was doing the hair of other patients, even though they did not want it done. This was some of the behaviors noted part of her marked amita and psychosis. She had failed outpatient psychiatric interventions. SIGNIFICANT FINDINGS AND CLINICAL COURSE: Following admission, the patient was seen daily individually by myself from a psychiatric standpoint, medical followup with Dr. Jacome. The patient's course was extremely challenging. She was initially psychotic, had to be in the isolated hallway, repeatedly over several days, yelling, screaming, labile, psychotic with intense staff interventions, fairly dramatic. We made several changes in her psychotropics and ultimately added lithium to her regimen and she seemed to respond positively to this. [place] had to be adjusted gradually carefully and then readjusted backward because the levels became too high and finally she was stabilized on a combination of Clozaril 350 mg at bedtime, Depakote ER 1000 mg at bedtime with the level of 61, Remeron 7.5 mg at bedtime, trazodone 100 mg at bedtime p.r.n., may repeat x 3, max 400 mg at bedtime, melatonin 6 mg at bedtime p.r.n., hydroxyzine p.r.n., Zyprexa p.r.n., Cogentin 0.5 mg at bedtime, stopped on 07/04/2018 at 2300 hours, lithium 300 mg in the morning and lithium citrate 6.67 mEq at bedtime with the level of finally at 0.6 approximately. This will have to be monitored very closely as an outpatient. REVIEW OF SYSTEMS: Prior to discharge on 07/24/2018, no CV, , pulmonary, eye system symptoms on review. MENTAL STATUS EXAM: Oriented reasonably. Speech coherent, abstraction is fair, computation impaired, language function intact. Mood and affect improved. FINAL DIAGNOSES: Bipolar 1 disorder, mixed with psychotic features, in partial remission; schizoaffective disorder, bipolar type, mixed with psychotic features, in partial remission; cognitive disorder, unspecified; anxiety disorder, unspecified; impulse control disorder, unspecified. Rest is unchanged from admission. DISCHARGE MEDICATIONS: Please refer to the MRAD. DISCHARGE INSTRUCTIONS: Outpatient psychiatric medical followup at the custodial. KIERSTEN WATT MD DR: SANCHEZ/fredrick JOB#: [id number] / [id number]
--- NOTE | 2018-07-24 21:04 | PN ---
DATE: 07/22/2018 PSYCHIATRIC PROGRESS NOTE This late entry 07/22/2018 covers elements not covered in my initial note. SUBJECTIVE: I met with the patient in the evening. The patient slept 6-3/4 hours previous night. She took a shower in the morning, compliant with medications. visited. She has been fairly pleasant, cooperative. REVIEW OF SYSTEMS: No CV, , pulmonary, eye, ENT system symptoms on review. MENTAL STATUS EXAM: Oriented reasonably. Speech coherent, at times a little pressured. Abstraction fair, computation impaired, language function intact. Mood and affect showing improvement. LABORATORY DATA: Reviewed. IMPRESSION: Unchanged from initial note. PLAN: No change from initial note. KIERSTEN WATT MD DR: SANCHEZ/fredrick JOB#: [id number] / [id number]
--- NOTE | 2018-07-24 21:05 | PN ---
DATE: 07/23/2018 PSYCHIATRIC PROGRESS NOTE This late entry 07/23/2018 covers elements not covered in my initial note. SUBJECTIVE: I met with the patient in the evening. The patient was also staffed at a treatment team meeting with the entire team. Appetite 100%. She is sleeping well. May have to return to [facility]. REVIEW OF SYSTEMS: No CV, , pulmonary, eye, ENT system symptoms on review. MENTAL STATUS EXAM: Oriented to herself and situation. Speech is coherent, abstraction fair, computation impaired, language function intact. Mood and affect is improved. LABORATORY DATA: Reviewed. IMPRESSION: Unchanged from initial note. [place] level 0.7. PLAN: No change from initial note. KIERSTEN WATT MD DR: SANCHEZ/fredrick JOB#: [id number] / [id number]
--- NOTE | 2018-07-24 22:40 | PDOC ---
Exam Note: Julian Note: Please also refer to the separate dictated note~for this date of service dictated separately.~Patient seen individually. Discussed the patient with Nursing staff reviewed the chart.~Reviewed interim history and current functioning. Reviewed vital signs,~Labs/ Radiology~and current medications noted below. Continue current treatment with the changes noted in the dictated addendum note Assessment: Vital Signs: Vital Signs Date Time Temp Pulse Resp B/P (MAP) Pulse Ox O2 Delivery O2 Flow Rate FiO2 07/24/18 15:38 97.7 98 22 123/75 (91) 96 Room Air I&O Intake and Output 07/24/18 06:59 Intake Total 1440 ml Balance 1440 ml Intake Oral 1440 ml Labs: Laboratory Tests Test 07/24/18 06:47 [place] Level 0.7 mmol/L (0.6-1.2) [place] Last Dose Date 07/23/18 [place] Last Dose Time 2100 Current Medications: Meds: Current Medications Acetaminophen (Tylenol) 650 mg PRN Q6HRS PRN PO PAIN / TEMP Last administered on 06/23/18at 05:51; Start 06/06/18 at 04:15; Stop 07/24/18 at 18:04; Status DC Multi-Ingredient Ointment (Analgesic [place]) 1 speedy PRN QID PRN TP MUSCLE PAIN Last administered on 06/07/18at 22:53; Start 06/06/18 at 04:15; Stop 07/24/18 at 18:04; Status DC Al Hydroxide/Mg Hydroxide (Mylanta Plus Xs) 15 ml PRN AFTMEALHC PRN PO DYSPEPSIA; Start 06/06/18 at 04:15; Stop 07/24/18 at 18:04; Status DC Magnesium Hydroxide (Milk Of Magnesia) 2,400 mg PRN QHS PRN PO CONSTIPATION; Start 06/06/18 at 04:15; Stop 07/24/18 at 18:04; Status DC Amlodipine Besylate (Norvasc) 5 mg DAILY PO Last administered on 07/24/18at 08:04 ; Start 06/06/18 at 09:00; Stop 07/24/18 at 18:04; Status DC Atorvastatin Calcium (Lipitor) 20 mg QHS PO Last administered on 07/23/18at 20:12 ; Start 06/06/18 at 21:00; Stop 07/24/18 at 18:04; Status DC Clozapine (Clozaril) 100 mg BID94 PO Last administered on 06/15/18 07:44; Start 06/06/18 at 09:00; Stop 06/15/18 at 18:36; Status DC Clozapine (Clozaril) 50 mg BID94 PO Last administered on 06/15/18 07:44; Start 06/06/18 at 09:00; Stop 06/15/18 at 18:36; Status DC Cyanocobalamin (Vitamin B-12) 1,000 mcg DAILY PO Last administered on 07/24/18 08:03; Start 06/06/18 at 09:00; Stop 07/24/18 at 18:04; Status DC Divalproex Sodium (Depakote Er) 1,000 mg QHS PO Last administered on 07/23/18 20:12; Start 06/06/18 at 21:00; Stop 07/24/18 at 18:04; Status DC Vitamin D (Vitamin D3) 50,000 unit WEEKLY PO Last administered on 07/19/18 08: 06; Start 06/07/18 at 09:00; Stop 07/24/18 at 18:04; Status DC Estradiol (Estrace) 1 speedy QMTH VG Last administered on 06/08/18at 15:41; Start 06/08/18 at 16:00; Stop 06/08/18 at 21:19; Status DC Furosemide (Lasix) 20 mg DAILY PO Last administered on 07/24/18 08:03; Start at 09:00; Stop 07/24/18 at 18:04; Status DC Levothyroxine Sodium (Synthroid) 75 mcg DAILY06 PO Last administered on 06:36; Start 06/06/18 at 06:00; Stop 07/24/18 at 18:04; Status DC Melatonin 6 mg PRN QHS PRN PO INSOMNIA Last administered on 06/13/18 22:23; Start 06/06/18 at 04:30; Stop 07/24/18 at 18:04; Status DC Magnesium Hydroxide (Milk Of Magnesia) 2,400 mg PRN DAILY PRN PO CONSTIPATION; Start 06/06/18 at 04:30; Status UNV Polyethylene Glycol (miraLAX) 17 gm DAILY PO Last administered on 07/24/18 08: 04; Start 06/06/18 at 09:00; Stop 07/24/18 at 18:04; Status DC Prednisolone Acetate (Pred Forte) 1 drop DAILY OD Last administered on 08:04; Start 06/06/18 at 09:00; Stop 07/24/18 at 18:04; Status DC Artificial Tears (Refresh Classic) 1 drop TID PRN PRN OU DRY EYE; Start at 04:30; Stop 07/24/18 at 18:04; Status DC Mirtazapine (Remeron) 7.5 mg QHS PO Last administered on 07/23/18 20:11; Start 06/06/18 at 21:00; Stop 07/24/18 at 18:04; Status DC Trazodone HCl (Desyrel) 100 mg PRN QHS PRN PO INSOMNIA, MAY REPEAT X3 Last administered on 06/23/18 20:10; Start 06/06/18 at 19:00; Stop 07/24/18 at 18:04; Status DC Olanzapine (ZyPREXA ZYDIS) 5 mg PRN Q2HR PRN PO PSYCHOSIS Last administered on 06/17/18 22:09; Start 06/07/18 at 14:00; Stop 07/24/18 at 18:04; Status DC Haloperidol (Haldol) 5 mg HS PO ; Start 06/07/18 at 21:00; Stop 06/07/18 at 21: 00; Status DC Haloperidol Lactate (Haldol) 5 mg DAILY IM Last administered on 06/09/18at 07:51 ; Start 06/07/18 at 19:15; Stop 06/09/18 at 09:41; Status DC Estradiol (Estrace) 1 speedy QMTH VG ; Start 06/11/18 at 21:00; Stop 06/18/18 at 11 :41; Status DC Haloperidol Lactate (Haldol) 5 mg 1X ONCE IM Last administered on 06/09/18at 09 :43; Start 06/09/18 at 09:45; Stop 06/09/18 at 09:46; Status DC Haloperidol Lactate (Haldol) 10 mg DAILY IM Last administered on 06/14/18at 08: 40; Start 06/10/18 at 09:00; Stop 06/14/18 at 13:06; Status DC Hydroxyzine HCl (Atarax) 50 mg 1X ONCE PO Last administered on 06/09/18at 17:26 ; Start 06/09/18 at 17:15; Stop 06/09/18 at 17:24; Status DC Hydroxyzine HCl (Atarax) 50 mg 1X ONCE PO Last administered on 06/09/18at 18:29 ; Start 06/09/18 at 18:25; Stop 06/09/18 at 18:26; Status DC Benztropine Mesylate (Cogentin) 1 mg QHS PO Last administered on 06/21/18 21:57 ; Start 06/10/18 at 21:00; Stop 06/22/18 at 16:50; Status DC [place] Carbonate 300 mg HS PO Last administered on 06/13/18at 19:20; Start at 21:00; Stop 06/14/18 at 13:06; Status DC Hydroxyzine HCl (Atarax) 50 mg PRN Q2HR PRN PO SEDATION Last administered on 01:30; Start 06/11/18 at 15:00; Stop 07/24/18 at 18:04; Status DC Trazodone HCl (Desyrel) 100 mg PRN 1X PRN PO insomnia Last administered on 06/12 04:16; Start 06/12/18 at 03:15; Stop 07/24/18 at 18:04; Status DC Lorazepam (Ativan Intensol) 0.5 mg 1X ONCE SL Last administered on 06/13/18at 21:51; Start 06/13/18 at 18:15; Stop 06/13/18 at 18:16; Status DC Lorazepam (Ativan) 1 mg DAILY IM Last administered on 06/23/18 08:16; Start at 09:50; Stop 06/24/18 at 15:40; Status DC Haloperidol Lactate (Haldol) 5 mg DAILY IM Last administered on 06/16/18at 09:54 ; Start 06/15/18 at 09:00; Stop 06/18/18 at 10:45; Status DC [place] Carbonate 300 mg BID PO Last administered on 06/18/18at 08:14; Start at 21:00; Stop 06/18/18 at 15:03; Status DC Clozapine (Clozaril) 300 mg DAILY PO Last administered on 06/27/18 08:13; Start 06/16/18 at 09:00; Stop 06/28/18 at 00:33; Status DC Clozapine (Clozaril) 25 mg DAILY PO Last administered on 06/27/18 08:13; Start 06/16/18 at 09:00; Stop 06/28/18 at 00:33; Status DC Estradiol (Estrace) 1 speedy MoTh VG Last administered on 06/18/18at 20:05; Start 06/18/18 at 21:00; Stop 07/24/18 at 18:04; Status DC [place] Carbonate 300 mg DAILY PO Last administered on 07/24/18 08:03; Start at 09:00; Stop 07/24/18 at 18:04; Status DC [place] Citrate 5.3 meq QHS PO Last administered on 07/09/18 20:56; Start at 21:00; Stop 07/10/18 at 17:09; Status DC Levothyroxine Sodium (Synthroid) 75 mcg 1X ONCE PO Last administered on 07:53; Start 06/19/18 at 07:00; Stop 06/19/18 at 07:01; Status DC Benztropine Mesylate (Cogentin) 1.5 mg QHS PO Last administered on 06/24/18 19: 58; Start 06/22/18 at 21:00; Stop 06/25/18 at 17:05; Status DC Benztropine Mesylate (Cogentin) 1 mg QHS PO Last administered on 07/02/18at 19: 43; Start 06/25/18 at 21:00; Stop 07/02/18 at 21:00; Status DC Clozapine (Clozaril) 300 mg HS PO Last administered on 07/07/18 20:31; Start 06/28/18 at 21:00; Stop 07/08/18 at 15:05; Status DC Clozapine (Clozaril) 25 mg HS PO Last administered on 07/07/18at 20:31; Start at 21:00; Stop 07/08/18 at 15:05; Status DC Benztropine Mesylate (Cogentin) 0.5 mg QHS PO Last administered on 07/03/18at 20 :59; Start 07/03/18 at 21:00; Stop 07/04/18 at 20:59; Status DC Clozapine (Clozaril) 300 mg BID PO ; Start 07/08/18 at 21:00; Stop 07/08/18 at 21:00; Status DC Clozapine (Clozaril) 300 mg HS PO Last administered on 07/23/18 20:12; Start at 21:00; Stop 07/24/18 at 18:04; Status DC Clozapine (Clozaril) 50 mg HS PO Last administered on 07/23/18 20:12; Start at 21:00; Stop 07/24/18 at 18:04; Status DC [place] Citrate 6.67 meq HS PO Last administered on 07/23/18 20:12; Start 07/10 at 21:00; Stop 07/24/18 at 18:04; Status DC Active Scripts Active Reported Prednisolone Acetate 5 Ml Drops.susp 1 Drop OD DAILY Zyprexa Zydis (Olanzapine) 5 Mg Tab.rapdis 5 Mg PO PRN Q2HR PRN Melatonin 3 Mg Tablet 6 Mg PO PRN QHS PRN [place] Citrate 8 Meq/5 Ml Solution 6.67 Meq PO QHS [place] Carbonate 300 Mg Capsule 300 Mg PO DAILY Furosemide 20 Mg Tablet 20 Mg PO DAILY D3-50 (Cholecalciferol (Vitamin D3)) 50,000 Unit Capsule 50,000 Unit PO QSU Hydroxyzine Hcl 10 Mg Tablet 50 Mg PO PRN Q2HR PRN Clozapine 100 Mg Tablet 350 Mg PO QHS Remeron (Mirtazapine) 15 Mg Tablet 7.5 Mg PO QHS Depakote Er (Divalproex Sodium) 500 Mg Tab.er.24h 1,000 Mg PO QHS Trazodone Hcl 50 Mg Tablet 100 Mg PO PRN QHS PRN MDD 400mg Lipitor (Atorvastatin Calcium) 20 Mg Tablet 20 Mg PO QHS Levothyroxine Sodium 75 Mcg Tablet 75 Mcg PO DAILYAC Estrace (Estradiol) 42.5 Gm Cream.appl 1 Speedy VG 2X WEEK Q FRI, Vitamin B-12 (Cyanocobalamin (Vitamin B-12)) 1,000 Mcg Tablet 1,000 Mcg PO DAILY Maalox Advanced Suspension (Mag Hydrox/Aluminum Hyd/Simeth) 355 Ml Oral.susp 15 Ml PO PRN AFTMEALHC PRN Analgesic [place] (Methyl Salicylate/Menthol) 28 Gm Oint...g. 1 Speedy TP PRN QID PRN Refresh Classic Eye Drops (Polyvinyl Alcohol/Povidone/Pf) 1 Each Droperette 1 Each OU TID PRN Trazodone Hcl 50 Mg Tablet 100 Mg PO PRN QHS PRN Norvasc (Amlodipine Besylate) 5 Mg Tablet 5 Mg PO DAILY Miralax (Polyethylene Glycol 3350) 17 Gm Powd.pack 17 Gm PO DAILY Milk Of Magnesia (Magnesium Hydroxide) 2,400 Mg/10 Ml Oral.susp 2,400 Mg PO PRN DAILY PRN Tylenol (Acetaminophen) 325 Mg Tablet 650 Mg PO PRN Q6HRS PRN I have reviewed the current psychotropics carefully including drug interactions. Risk benefit ratio favors no change other than as noted in my dictated progress note. 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
== END 2018-07-24 17:15 | DRG 885 ==
LOC: ER 01:03 → GEROPSY 02:54 → ER 02:55
PROVIDERS: ADMIT Psychiatry & Neurology Psychiatry; ATTEND Psychiatry & Neurology Psychiatry
DX: F25.0 Schizoaffective disorder, bipolar type (principal); F02.81 Dementia in other diseases classified elsewhere, unspecified severity, with behavioral disturbance; F63.9 Impulse disorder, unspecified; E03.9 Hypothyroidism, unspecified; E11.9 Type 2 diabetes mellitus without complications; E78.5 Hyperlipidemia, unspecified; F02.80 Dementia in other diseases classified elsewhere, unspecified severity, without behavioral disturbance, psychotic disturbance, mood disturbance, and anxiety; G31.09 Other frontotemporal neurocognitive disorder; F41.9 Anxiety disorder, unspecified; G47.00 Insomnia, unspecified; G47.33 Obstructive sleep apnea (adult) (pediatric); K59.09 Other constipation; M19.90 Unspecified osteoarthritis, unspecified site; I10 Essential (primary) hypertension; Z79.899 Other long term (current) drug therapy; Z91.81 History of falling; Z88.8 Allergy status to other drugs, medicaments and biological substances
CPT/HCPCS: 36415; 80048; 80053; 80061; 80164; 80178; 81001; 82947; 84436; 84443; 84480; 85025; 86592; 87086; 93005; J1630; J2060; 99285-25

== ENCOUNTER 2018-11-02 18:24 | Inpatient (IN) | payer MEDICARE ==
[~2018-11-02] VITALS: Ht 154.9 cm; Wt 80.9 kg
[~2018-11-02 18:24] MED LIST changes: +CHOL500021 PO; +FURO20TA3 PO; +LIDO700A21 TP; -LIDO700A39 TP; +LITH8SOL PO; +MELA3TAB2 PO; +OLAN5TAB5 PO; +PRED5DRO16 OD
[2018-11-02] MEDS ORDERED: MAG HYDROX/AL HYDROX/SIMETH 30 ML ORAL.SUSP PO PRN (21:30)
[2018-11-02] MEDS ORDERED: MAGNESIUM HYDROXIDE 2,400 MG/30 ML ORAL.SUSP. PO PRN (21:30)
[2018-11-02] MEDS ORDERED: ACETAMINOPHEN 325 MG TABLET PO PRN ×2 (21:30)
[2018-11-02] MEDS ORDERED: METHYL SALICYLATE/MENTHOL TOPICAL OINTMENT 29GM TUBE. TP PRN (21:30)
[2018-11-02] MEDS ORDERED: NON FORMULARY ITEM (Magnesium Hydroxide (Milk Of Magnesia) 2,400 MG) PO PRN (21:30)
[2018-11-02] MEDS ORDERED: NON FORMULARY ITEM (Mag Hydrox/Aluminum Hyd/Simeth (Maalox Advanced Suspension) 15 ML) PO PRN (21:30)
[2018-11-02] MEDS ORDERED: TRAM50TA PO (21:34)
[2018-11-02] MEDS ORDERED: MELA3TAB2 PO (21:34)
[2018-11-02] MEDS ORDERED: OLAN10TA3 PO (21:34)
[2018-11-02] MEDS ORDERED: BENZ0.5T32 PO (21:34)
[2018-11-02] MEDS ORDERED: LITH300C PO (21:34)
[2018-11-02] MEDS ORDERED: LITH8SOL PO (21:34)
[2018-11-02] MEDS ORDERED: FLUO10CA7 PO (21:34)
[2018-11-02] MEDS ORDERED: IBUP800T19 PO (21:34)
[2018-11-02] MEDS: IBUPROFEN 600 MG TABLET. PO SCH ×2 (22:00→22:20)
[2018-11-02 22:01] LABS: BASO % 1 % (0-3); EOS # 0.3 x10^3/uL (0.0-0.7); EOS % 4 % (0-3); HEMATOCRIT 34.5 % (36.0-47.0); HEMOGLOBIN 11.7 g/dL (12.0-15.5); LYMPH # 1.5 x10^3/uL (1.0-4.8); LYMPH % 24 % (24-48); MEAN CORPUSCULAR HEMOGLOBIN 31 pg (25-35); MEAN CORPUSCULAR HGB CONC 34 g/dL (31-37); MEAN CORPUSCULAR VOLUME 91 fL (79-100); MONO # 0.9 x10^3/uL (0.0-1.1); MONO % 15 % (0-9); NEUT # 3.6 x10^3uL (1.8-7.7); NEUT % 57 % (31-73); PLATELET COUNT 247 x10^3/uL (140-400); RED BLOOD COUNT 3.79 x10^6/uL (3.50-5.40); RED CELL DISTRIBUTION WIDTH 13.5 % (11.5-14.5); WHITE BLOOD COUNT 6.3 x10^3/uL (4.0-11.0)
[2018-11-02] MEDS ORDERED: POLYVINYL ALCOHOL/POVIDONE/PF OPHTH SOLUTION DROPERETTE. OU PRN (22:15)
[2018-11-02 22:18] LABS: ALBUMIN 2.7 g/dL (3.4-5.0); ALBUMIN/GLOBULIN RATIO 0.6 (1.0-1.7); CALCIUM 10.5 mg/dL (8.5-10.1); CREATININE 0.8 mg/dL (0.6-1.0); GFR 71.1; MAGNESIUM 1.6 mg/dL (1.8-2.4); POTASSIUM 4.1 mmol/L (3.5-5.1); TOTAL BILIRUBIN 0.2 mg/dL (0.2-1.0); TOTAL PROTEIN 7.1 g/dL (6.4-8.2)
[2018-11-02 22:21] LABS: VAL ACID 63 mcg/mL (50-100)
--- NOTE | 2018-11-02 22:32 | PDOC ---
Exam Note: Julian Note: Please also refer to the separate dictated note~for this date of service dictated separately. Discussed the patient with Nursing staff reviewed the chart.~Reviewed interim history and current functioning. Reviewed vital signs,~Labs/ Radiology~and current medications noted below. Continue current treatment with the changes noted in the dictated addendum note Assessment: Labs: Laboratory Tests Test 11/02/18 21:52 White Blood Count 6.3 x10^3/uL (4.0-11.0) Red Blood Count 3.79 x10^6/uL (3.50-5.40) Hemoglobin 11.7 g/dL (12.0-15.5) L Hematocrit 34.5 % (36.0-47.0) L Mean Corpuscular Volume 91 fL (79-100) Mean Corpuscular Hemoglobin 31 pg (25-35) Mean Corpuscular Hemoglobin Concent 34 g/dL (31-37) Red Cell Distribution Width 13.5 % (11.5-14.5) Platelet Count 247 x10^3/uL (140-400) Neutrophils (%) (Auto) 57 % (31-73) Lymphocytes (%) (Auto) 24 % (24-48) Monocytes (%) (Auto) 15 % (0-9) H Eosinophils (%) (Auto) 4 % (0-3) H Basophils (%) (Auto) 1 % (0-3) Neutrophils # (Auto) 3.6 x10^3uL (1.8-7.7) Lymphocytes # (Auto) 1.5 x10^3/uL (1.0-4.8) Monocytes # (Auto) 0.9 x10^3/uL (0.0-1.1) Eosinophils # (Auto) 0.3 x10^3/uL (0.0-0.7) Basophils # (Auto) 0.0 x10^3/uL (0.0-0.2) Sodium Level 142 mmol/L (136-145) Potassium Level 4.1 mmol/L (3.5-5.1) Chloride Level 105 mmol/L (98-107) Carbon Dioxide Level 27 mmol/L (21-32) Anion Gap 10 (6-14) Blood Urea Nitrogen 12 mg/dL (7-20) Creatinine 0.8 mg/dL (0.6-1.0) Estimated GFR (Cockcroft-Gault) 71.1 BUN/Creatinine Ratio 15 (6-20) Glucose Level 116 mg/dL (70-99) H Calcium Level 10.5 mg/dL (8.5-10.1) H Magnesium Level 1.6 mg/dL (1.8-2.4) L Total Bilirubin 0.2 mg/dL (0.2-1.0) Aspartate Amino Transferase (AST) 18 U/L (15-37) Alanine Aminotransferase (ALT) 12 U/L (14-59) L Alkaline Phosphatase 81 U/L (46-116) Total Protein 7.1 g/dL (6.4-8.2) Albumin 2.7 g/dL (3.4-5.0) L Albumin/Globulin Ratio 0.6 (1.0-1.7) L Valproic Acid Level 63 mcg/mL (50-100) Valproic Acid Last Dose Date 11/01/2018 Valproic Acid Last Dose Time 2200 Current Medications: I have reviewed the current psychotropics carefully including drug interactions. Risk benefit ratio favors no change other than as noted in my dictated progress note. 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
[2018-11-03 03:10] VITALS: BP 138/88
[2018-11-03 05:50] VITALS: BP 131/79
[2018-11-03] MEDS: IBUPROFEN 600 MG TABLET. PO SCH ×3 (06:04→20:00)
[2018-11-03] MEDS: LEVOTHYROXINE 75 MCG TABLET PO SCH (07:55)
[2018-11-03] MEDS: LITHIUM CARBONATE 300 MG TABLET PO SCH (07:55)
[2018-11-03] MEDS: prednisoLONE ACETATE 1% OPHTH SUSPENSION 5ML BOTTLE. OD SCH (07:55)
[2018-11-03] MEDS: FLUoxetine HCL 10 MG CAPSULE PO SCH (07:56)
[2018-11-03] MEDS: POLYETHYLENE GLYCOL 3350 17 GM PACKET. PO SCH (07:56)
[2018-11-03] MEDS: BENZTROPINE MESYLATE 0.5 MG TABLET PO SCH ×2 (07:56→20:00)
[2018-11-03] MEDS: FUROSEMIDE 20 MG TABLET PO SCH (07:56)
[2018-11-03] MEDS: amLODIPine BESYLATE 5 MG TABLET PO SCH (07:56)
[2018-11-03] MEDS: CYANOCOBALAMIN (VITAMIN B-12) 1,000 MCG TABLET. PO SCH (07:57)
[2018-11-03 15:44] VITALS: BP 119/71
[2018-11-03 17:36] LABS: THYROID STIM HORMONE (TSH) 2.224 uIU/mL (0.358-3.740)
[2018-11-03] MEDS: MIRTAZAPINE 7.5 MG TABLET. PO SCH (20:02)
[2018-11-03] MEDS: ATORVASTATIN CALCIUM 20 MG TABLET PO SCH (20:03)
[2018-11-03] MEDS: cloZAPine 100 MG TABLET PO SCH (20:03)
[2018-11-03] MEDS: DIVALPROEX ER 500 MG TAB.ER.24H PO SCH (20:03)
[2018-11-03] MEDS: OLANZapine 10 MG TABLET PO SCH (20:03)
[2018-11-03] MEDS: LITHIUM CITRATE PO SCH (20:04)
[2018-11-03 20:06] LABS: THYROXINE 6.9 ug/dL (4.5-12.0)
--- NOTE | 2018-11-03 22:13 | PDOC ---
Exam Note: Julian Note: Please also refer to the separate dictated note~for this date of service dictated separately.~Patient seen individually. Discussed the patient with Nursing staff reviewed the chart.~Reviewed interim history and current functioning. Reviewed vital signs,~Labs/ Radiology~and current medications noted below. Continue current treatment with the changes noted in the dictated addendum note Assessment: Vital Signs/I&O: Vital Signs Date Time Temp Pulse Resp B/P (MAP) Pulse Ox O2 Delivery O2 Flow Rate FiO2 11/03/18 15:44 97.1 74 16 119/71 (87) 97 11/03/18 03:10 Room Air I & O 11/02/18 11/02/18 11/03/18 14:59 22:59 06:59 Intake Total 240 ml Balance 240 ml Current Medications: Meds: Current Medications Medications (Trade) Dose Ordered Sig/Bora Route PRN Reason Start Time Stop Time Status Last Admin Dose Admin Atorvastatin Calcium (Lipitor) 20 mg QHS PO 11/03/18 21:00 11/03/18 20:03 Cyanocobalamin (Vitamin B-12) 1,000 mcg DAILY PO 11/03/18 09:00 11/03/18 07:57 Furosemide (Lasix) 20 mg DAILY PO 11/03/18 09:00 11/03/18 07:56 Levothyroxine Sodium (Synthroid) 75 mcg DAILYAC PO 11/03/18 07:30 11/03/18 07:55 Prednisolone Acetate (Pred Forte) 1 drop DAILY OD 11/03/18 09:00 11/03/18 07:55 Amlodipine Besylate (Norvasc) 5 mg DAILY PO 11/03/18 09:00 11/03/18 07:56 Benztropine Mesylate (Cogentin) 0.5 mg BID PO 11/03/18 09:00 11/03/18 20:00 Clozapine (Clozaril) 350 mg QHS PO 11/03/18 21:00 11/03/18 20:03 Divalproex Sodium (Depakote Er) 1,000 mg QHS PO 11/03/18 21:00 11/03/18 20:03 Fluoxetine HCl (PROzac) 10 mg DAILY PO 11/03/18 09:00 11/03/18 07:56 [place] Carbonate 300 mg DAILY PO 11/03/18 09:00 11/03/18 07:55 [place] Citrate 6.72 meq QHS PO 11/03/18 21:00 11/03/18 20:04 Mirtazapine (Remeron) 7.5 mg QHS PO 11/03/18 21:00 11/03/18 20:02 Olanzapine (ZyPREXA) 10 mg QHS PO 11/03/18 21:00 11/03/18 20:03 Polyethylene Glycol (miraLAX) 17 gm DAILY PO 11/03/18 09:00 11/03/18 07:56 I have reviewed the current psychotropics carefully including drug interactions. Risk benefit ratio favors no change other than as noted in my dictated progress note. 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
[2018-11-04 05:58] VITALS: BP 133/87
[2018-11-04] MEDS: LEVOTHYROXINE 75 MCG TABLET PO SCH (06:19)
[2018-11-04] MEDS: IBUPROFEN 600 MG TABLET. PO SCH ×3 (06:20→19:35)
[2018-11-04] MEDS: LITHIUM CARBONATE 300 MG TABLET PO SCH (08:03)
[2018-11-04] MEDS: FUROSEMIDE 20 MG TABLET PO SCH (08:03)
[2018-11-04] MEDS: prednisoLONE ACETATE 1% OPHTH SUSPENSION 5ML BOTTLE. OD SCH (08:03)
[2018-11-04] MEDS: POLYETHYLENE GLYCOL 3350 17 GM PACKET. PO SCH (08:03)
[2018-11-04] MEDS: BENZTROPINE MESYLATE 0.5 MG TABLET PO SCH ×2 (08:03→19:33)
[2018-11-04] MEDS: CYANOCOBALAMIN (VITAMIN B-12) 1,000 MCG TABLET. PO SCH (08:04)
[2018-11-04] MEDS: FLUoxetine HCL 10 MG CAPSULE PO SCH (08:04)
[2018-11-04] MEDS: amLODIPine BESYLATE 5 MG TABLET PO SCH (08:04)
--- NOTE | 2018-11-04 09:46 | HP ---
ADMIT DATE: 11/03/2018 PSYCHIATRIC ADMISSION HISTORY AND EVALUATION This is a late entry, date of service 11/03/2018 covers elements, not covered in my initial note. SUBJECTIVE: I met with the patient evening of 11/03/2018 and previously discussed with nursing staff on 11/02/2018 and 11/03/2018 to gather referring information from [facility] where the patient had been hospitalized for medical stabilization, referred from [facility] She had a psychiatric consultation at [facility] recommending inpatient psychiatric stabilization for the acute exacerbation of her bipolar 1 disorder, mixed with psychotic features. Discussed with Chiara Robison coordinator mining products on 11/02/2018 and nursing staff several times since then. IDENTIFYING DATA: The patient is a 68-year-old female referred to us on account of acute mental status changes being extremely sedated, sleeping too much, lethargic, being anxious, paranoid, poor attention, concentration and psychotic. The patient had failed [facility] interventions [facility] in [place]. CHIEF COMPLAINT: "I'm tired." HISTORY OF PRESENT ILLNESS: The patient has a long history of bipolar disorder, mixed with psychotic features versus schizoaffective disorder, bipolar type. She has been with us inpatient at [facility] Psychiatry service in the past on more than one occasion and has had several other psychiatric hospitalizations including [facility] amongst others. The last time, she was inpatient with us was in July of this year. She had extremely complicated hospitalization on response to various multiple and extensive changes in her psychotropics and seemed to finally respond to combination of Clozaril 350 mg at bedtime, Depakote ER 1000 mg at bedtime with a therapeutic level of 61, Remeron 7.5 mg at bedtime, trazodone 100 mg at bedtime p.r.n., may repeat x 3 maximum 400 mg at bedtime for insomnia, melatonin 6 mg at bedtime p.r.n., hydroxyzine and Zyprexa p.r.n., Cogentin 0.5 mg at bedtime was discontinued, lithium as a mood stabilizer 300 mg in the morning and lithium citrate at bedtime with a level finally at 0.6 approximately. Since then, reportedly, the Clozaril had been discontinued and then restarted at [facility] in the same with Depakote. She was extremely psychotic, disorganized, sedated as noted and failed outpatient psychiatric interventions. PAST MEDICAL HISTORY: Positive for hypertension; hyperlipidemia; sleep apnea; recurrent UTIs; cataract, left eye; chronic constipation; dyspepsia; hypothyroidism; expressive aphasia. ACCU-CHEKS: None. DIET: Regular. Takes medications whole. Ambulates ad argelia, but unable to walk very much in the past 1 week or so. ALLERGIES: BENZODIAZEPINES, STEROIDS, ATIVAN, KLONOPIN. CODE STATUS: Full code. FAMILY HISTORY: Noncontributory. SOCIAL HISTORY: No alcohol, drug abuse, physical, sexual or elder abuse history is noted. The patient is not known to be a perpetrator. REACTION TO HOSPITALIZATION: The patient accepting of it. ASSETS: Supportive living at the facility, supportive , even though they are . He has been a big support for her. MENTAL STATUS EXAMINATION: The patient was seen individually evening of 11/03/2018 in her room. She is lying in bed, somewhat tired. Speech has some latency, difficult to understand. Insight limited, judgment marginal, language function intact, attention span short. Mood and affect somewhat withdrawn. She is paranoid and depressed. No active suicidal or homicidal ideation. Attention span short. Language function intact. LABORATORY DATA: Reviewed. IMPRESSION: Schizoaffective disorder, bipolar type, mixed with psychotic features. Bipolar 1 disorder, mixed with psychotic features; mild cognitive impairment; anxiety disorder, unspecified; impulse control disorder, unspecified. Rest as above. PLAN: Admit to geropsychiatry unit at [facility]. I will see the patient daily individually from a psychiatric standpoint. Medical followup with Dr. Jacome. Continue current psychotropics. Check a lithium level, valproic acid level. Reduce psychotropic, especially sedating ones if she remains sedated, but drooling. I will make further adjustments as clinically indicated. I will see her daily individually. KIERSTEN WATT MD DR: SANCHEZ/fredrick JOB#: [id number] / [id number]
[2018-11-04 13:08] LABS: HEMOGLOBIN A1C 5.4 % (4.8-5.6)
[2018-11-04 15:57] VITALS: BP 101/66
[2018-11-04] MEDS: OLANZapine 10 MG TABLET PO SCH (19:30)
[2018-11-04] MEDS: DIVALPROEX ER 500 MG TAB.ER.24H PO SCH (19:30)
[2018-11-04] MEDS: MIRTAZAPINE 7.5 MG TABLET. PO SCH (19:32)
[2018-11-04] MEDS: ATORVASTATIN CALCIUM 20 MG TABLET PO SCH (19:32)
[2018-11-04] MEDS: cloZAPine 100 MG TABLET PO SCH (19:32)
[2018-11-04] MEDS: LITHIUM CITRATE PO SCH (19:39)
--- NOTE | 2018-11-04 22:06 | PDOC ---
Exam Note: Julian Note: Please also refer to the separate dictated note~for this date of service dictated separately.~Patient seen individually. Discussed the patient with Nursing staff reviewed the chart.~Reviewed interim history and current functioning. Reviewed vital signs,~Labs/ Radiology~and current medications noted below. Continue current treatment with the changes noted in the dictated addendum note Assessment: Vital Signs/I&O: Vital Signs Date Time Temp Pulse Resp B/P (MAP) Pulse Ox O2 Delivery O2 Flow Rate FiO2 11/04/18 15:57 98.0 80 19 101/66 (78) 96 11/04/18 05:58 Room Air I & O 11/03/18 11/03/18 11/04/18 14:59 22:59 06:59 Intake Total 1260 ml 240 ml 100 ml Balance 1260 ml 240 ml 100 ml Current Medications: I have reviewed the current psychotropics carefully including drug interactions. Risk benefit ratio favors no change other than as noted in my dictated progress note. 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
[2018-11-05] MEDS: IBUPROFEN 600 MG TABLET. PO SCH ×3 (05:48→19:52)
[2018-11-05 06:02] VITALS: BP 124/81
[2018-11-05 06:43] LABS: BASO % 1 % (0-3); EOS # 0.4 x10^3/uL (0.0-0.7); EOS % 8 % (0-3); HEMATOCRIT 37.4 % (36.0-47.0); HEMOGLOBIN 12.5 g/dL (12.0-15.5); LYMPH % 38 % (24-48); MEAN CORPUSCULAR HEMOGLOBIN 30 pg (25-35); MEAN CORPUSCULAR HGB CONC 33 g/dL (31-37); MEAN CORPUSCULAR VOLUME 91 fL (79-100); MONO # 0.6 x10^3/uL (0.0-1.1); MONO % 12 % (0-9); NEUT # 2.3 x10^3uL (1.8-7.7); NEUT % 43 % (31-73); PLATELET COUNT 256 x10^3/uL (140-400); RED BLOOD COUNT 4.13 x10^6/uL (3.50-5.40); RED CELL DISTRIBUTION WIDTH 13.5 % (11.5-14.5); WHITE BLOOD COUNT 5.3 x10^3/uL (4.0-11.0)
[2018-11-05 06:51] LABS: ALBUMIN 2.7 g/dL (3.4-5.0); ALBUMIN/GLOBULIN RATIO 0.6 (1.0-1.7); ALK PHOS 80 U/L (46-116); ALT (SGPT) 14 U/L (14-59); ANION GAP 3 (6-14); AST (SGOT) 18 U/L (15-37); BLOOD UREA NITROGEN 13 mg/dL (7-20); BUN/CREATININE RATIO 13 (6-20); CALCIUM 10.5 mg/dL (8.5-10.1); CARBON DIOXIDE 33 mmol/L (21-32); CHLORIDE 106 mmol/L (98-107); GLUCOSE 90 mg/dL (70-99); POTASSIUM 4.5 mmol/L (3.5-5.1); SODIUM 142 mmol/L (136-145); TOTAL BILIRUBIN 0.2 mg/dL (0.2-1.0); TOTAL PROTEIN 6.9 g/dL (6.4-8.2)
[2018-11-05 06:59] LABS: VAL ACID 73 mcg/mL (50-100)
[2018-11-05] MEDS: LEVOTHYROXINE 75 MCG TABLET PO SCH (08:15)
[2018-11-05] MEDS: FUROSEMIDE 20 MG TABLET PO SCH (08:16)
[2018-11-05] MEDS: POLYETHYLENE GLYCOL 3350 17 GM PACKET. PO SCH (08:16)
[2018-11-05] MEDS: BENZTROPINE MESYLATE 0.5 MG TABLET PO SCH ×2 (08:16→19:50)
[2018-11-05] MEDS: amLODIPine BESYLATE 5 MG TABLET PO SCH (08:16)
[2018-11-05] MEDS: CYANOCOBALAMIN (VITAMIN B-12) 1,000 MCG TABLET. PO SCH (08:17)
[2018-11-05] MEDS: FLUoxetine HCL 10 MG CAPSULE PO SCH (08:17)
[2018-11-05] MEDS: LITHIUM CARBONATE 300 MG TABLET PO SCH (08:18)
[2018-11-05] MEDS: prednisoLONE ACETATE 1% OPHTH SUSPENSION 5ML BOTTLE. OD SCH (08:20)
[2018-11-05] MEDS ORDERED: ESTRADIOL 0.01% VAGINAL CREAM 42.5GM TUBE. VG SCH (16:00)
[2018-11-05 16:31] VITALS: BP 95/56
[2018-11-05] MEDS: ATORVASTATIN CALCIUM 20 MG TABLET PO SCH (19:49)
[2018-11-05] MEDS: MIRTAZAPINE 7.5 MG TABLET. PO SCH (19:50)
[2018-11-05] MEDS: OLANZapine 10 MG TABLET PO SCH (19:52)
[2018-11-05] MEDS: cloZAPine 100 MG TABLET PO SCH (19:52)
[2018-11-05] MEDS: DIVALPROEX ER 500 MG TAB.ER.24H PO SCH (19:53)
[2018-11-05] MEDS: LITHIUM CITRATE PO SCH (19:55)
[2018-11-05] MEDS: ESTRADIOL 0.01% VAGINAL CREAM 42.5GM TUBE. VG SCH (21:00)
--- NOTE | 2018-11-05 22:33 | PDOC ---
Exam Note: Julian Note: Please also refer to the separate dictated note~for this date of service dictated separately.~Patient seen individually. Discussed the patient with Nursing staff reviewed the chart.~Reviewed interim history and current functioning. Reviewed vital signs,~Labs/ Radiology~and current medications noted below. Continue current treatment with the changes noted in the dictated addendum note Assessment: Vital Signs/I&O: Vital Signs Date Time Temp Pulse Resp B/P (MAP) Pulse Ox O2 Delivery O2 Flow Rate FiO2 11/05/18 16:31 98.5 107 18 95/56 (69) 96 11/05/18 06:02 Room Air I & O 11/04/18 11/04/18 11/05/18 15:00 23:00 07:00 Intake Total 1880 ml 600 ml 120 ml Balance 1880 ml 600 ml 120 ml Labs: Laboratory Tests Test 11/05/18 06:10 White Blood Count 5.3 x10^3/uL (4.0-11.0) Red Blood Count 4.13 x10^6/uL (3.50-5.40) Hemoglobin 12.5 g/dL (12.0-15.5) Hematocrit 37.4 % (36.0-47.0) Mean Corpuscular Volume 91 fL (79-100) Mean Corpuscular Hemoglobin 30 pg (25-35) Mean Corpuscular Hemoglobin Concent 33 g/dL (31-37) Red Cell Distribution Width 13.5 % (11.5-14.5) Platelet Count 256 x10^3/uL (140-400) Neutrophils (%) (Auto) 43 % (31-73) Lymphocytes (%) (Auto) 38 % (24-48) Monocytes (%) (Auto) 12 % (0-9) H Eosinophils (%) (Auto) 8 % (0-3) H Basophils (%) (Auto) 1 % (0-3) Neutrophils # (Auto) 2.3 x10^3uL (1.8-7.7) Lymphocytes # (Auto) 2.0 x10^3/uL (1.0-4.8) Monocytes # (Auto) 0.6 x10^3/uL (0.0-1.1) Eosinophils # (Auto) 0.4 x10^3/uL (0.0-0.7) Basophils # (Auto) 0.0 x10^3/uL (0.0-0.2) Sodium Level 142 mmol/L (136-145) Potassium Level 4.5 mmol/L (3.5-5.1) Chloride Level 106 mmol/L (98-107) Carbon Dioxide Level 33 mmol/L (21-32) H Anion Gap 3 (6-14) L Blood Urea Nitrogen 13 mg/dL (7-20) Creatinine 1.0 mg/dL (0.6-1.0) Estimated GFR (Cockcroft-Gault) 55.0 BUN/Creatinine Ratio 13 (6-20) Glucose Level 90 mg/dL (70-99) Calcium Level 10.5 mg/dL (8.5-10.1) H Total Bilirubin 0.2 mg/dL (0.2-1.0) Aspartate Amino Transferase (AST) 18 U/L (15-37) Alanine Aminotransferase (ALT) 14 U/L (14-59) Alkaline Phosphatase 80 U/L (46-116) Total Protein 6.9 g/dL (6.4-8.2) Albumin 2.7 g/dL (3.4-5.0) L Albumin/Globulin Ratio 0.6 (1.0-1.7) L Valproic Acid Level 73 mcg/mL (50-100) Valproic Acid Last Dose Date 11/04/2018 Valproic Acid Last Dose Time 2100 Kila Level 0.6 mmol/L (0.6-1.2) Kila Last Dose Date 11/04/18 Kila Last Dose Time 2100 Current Medications: I have reviewed the current psychotropics carefully including drug interactions. Risk benefit ratio favors no change other than as noted in my dictated progress note. 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
[2018-11-06] MEDS: IBUPROFEN 600 MG TABLET. PO SCH ×3 (06:23→21:46)
[2018-11-06 06:32] VITALS: BP 119/68
[2018-11-06] MEDS: amLODIPine BESYLATE 5 MG TABLET PO SCH (09:46)
[2018-11-06] MEDS: BENZTROPINE MESYLATE 0.5 MG TABLET PO SCH ×2 (09:46→21:40)
[2018-11-06] MEDS: FUROSEMIDE 20 MG TABLET PO SCH (09:46)
[2018-11-06] MEDS: CYANOCOBALAMIN (VITAMIN B-12) 1,000 MCG TABLET. PO SCH (09:46)
[2018-11-06] MEDS: FLUoxetine HCL 10 MG CAPSULE PO SCH (09:47)
[2018-11-06] MEDS: POLYETHYLENE GLYCOL 3350 17 GM PACKET. PO SCH (09:47)
[2018-11-06] MEDS: LITHIUM CARBONATE 300 MG TABLET PO SCH (09:47)
[2018-11-06] MEDS: LEVOTHYROXINE 75 MCG TABLET PO SCH (09:47)
[2018-11-06] MEDS: prednisoLONE ACETATE 1% OPHTH SUSPENSION 5ML BOTTLE. OD SCH (09:48)
[2018-11-06 15:41] VITALS: BP 114/73
[2018-11-06] MEDS: DIVALPROEX ER 500 MG TAB.ER.24H PO SCH (21:39)
[2018-11-06] MEDS: cloZAPine 100 MG TABLET PO SCH (21:40)
[2018-11-06] MEDS: ATORVASTATIN CALCIUM 20 MG TABLET PO SCH (21:40)
[2018-11-06] MEDS: OLANZapine 5 MG TABLET PO SCH (21:43)
[2018-11-06] MEDS: MIRTAZAPINE 7.5 MG TABLET. PO SCH (21:43)
[2018-11-06] MEDS: LITHIUM CITRATE PO SCH (21:44)
--- NOTE | 2018-11-06 22:07 | PN ---
DATE: 11/05/2018 This is a late entry 11/05/2018 covers elements not covered in my initial note. SUBJECTIVE: I met with the patient in the evening at length and staff at a treatment team meeting with the entire team in the morning. Appetite 100%, slept 7 hours previous night. She is flat, anxious, complains of being somewhat weak during walking. Otherwise, taking her psychotropics. REVIEW OF SYSTEMS: No CV, , pulmonary, eye, ENT system symptoms on review. MENTAL STATUS EXAM: Oriented to herself and situation. Speech coherent, a little pressured at times. Abstraction fair, computation impaired, language function intact, attention span short. Mood and affect remains labile, anxious. LABORATORY DATA: Reviewed. Valproic acid level on 11/02/2018 was therapeutic at 63. We will await a lithium level. Rest of the labs as previously ordered. IMPRESSION: Unchanged from initial note. PLAN: No change from initial note. She is currently on Clozaril and scheduled Zyprexa and we will see how she does and then stop the Zyprexa to avoid duplication of 2 antipsychotics. Rest unchanged. I would like to closely monitor the lithium level. MAN Rox WATT MD DR: SANCHEZ/fredrick JOB#: [id number] / [id number]
--- NOTE | 2018-11-06 22:11 | PDOC ---
Exam Note: Julian Note: Please also refer to the separate dictated note~for this date of service dictated separately.~Patient seen individually. Discussed the patient with Nursing staff reviewed the chart.~Reviewed interim history and current functioning. Reviewed vital signs,~Labs/ Radiology~and current medications noted below. Continue current treatment with the changes noted in the dictated addendum note Assessment: Vital Signs/I&O: Vital Signs Date Time Temp Pulse Resp B/P (MAP) Pulse Ox O2 Delivery O2 Flow Rate FiO2 11/06/18 15:41 98.2 93 20 114/73 (87) 95 Room Air I & O 11/05/18 11/05/18 11/06/18 15:00 23:00 07:00 Intake Total 720 ml 360 ml 120 ml Balance 720 ml 360 ml 120 ml Current Medications: Meds: Current Medications Medications (Trade) Dose Ordered Sig/Bora Route PRN Reason Start Time Stop Time Status Last Admin Dose Admin Olanzapine (ZyPREXA) 5 mg QHS PO 11/06/18 21:00 11/06/18 21:43 I have reviewed the current psychotropics carefully including drug interactions. Risk benefit ratio favors no change other than as noted in my dictated progress note. 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
--- NOTE | 2018-11-06 22:28 | PN ---
DATE: 11/04/2018 PSYCHIATRIC PROGRESS NOTE This late entry 11/04/2018 covers elements not covered in my initial note. SUBJECTIVE: I met with the patient in the evening. Overall, the patient slept 6-1/4 hours previous night. She has had no behavior, somewhat withdrawn, spending much time in bed. [place] level 0.1, but probably because she was not taking the lithium. We will repeat a CBC, CMP, lithium level, valproic acid level in the morning of 11/05/2018 and weekly CBC, absolute neutrophil count every Friday morning because she is on Clozaril. I have reviewed the past psychiatric records and at the time of her last discharge from our facility, she had an extensively long stay because of her significant response to treatment and finally responded to a combination of lithium carbonate 300 mg a day, Clozaril 350 mg at bedtime, Depakote ER 1000 mg at bedtime, Remeron 7.5 mg at bedtime. REVIEW OF SYSTEMS: Positive for some tiredness. No CV, , pulmonary, eye system symptoms on review. She is somewhat paranoid, anxious and I spent a fair amount of time with her. MENTAL STATUS EXAM: The patient is oriented to herself, situation. She expressed some fearfulness about her ex- general health. He comes regularly to visit her and has a mask in place and medically is somewhat more compromised. I addressed with her. Speech coherent, somewhat pressured at times. Abstraction fair, computation impaired, language function intact, attention span short. Mood and affect still somewhat paranoid, anxious, labile, withdrawn at times, knows active suicidal or homicidal ideation. LABORATORY DATA: Reviewed. IMPRESSION: Schizoaffective disorder, bipolar type, mixed with psychotic features; anxiety disorder, unspecified; impulse control disorder, unspecified; mild cognitive impairment. PLAN: Continue psychotropics as mentioned in my initial note. Check the labs as note. Adjust further as clinically indicated. KIERSTEN WATT MD DR: SANCHEZ/fredrick JOB#: [id number] / [id number]
--- NOTE | 2018-11-07 01:16 | PN ---
DATE: 11/06/2018 PSYCHIATRIC PROGRESS NOTE This note covers the elements not covered in my initial note 11/06/2018. SUBJECTIVE: I met with the patient in the evening. The patient slept 7-1/4 hours previous night. The patient has been calm, compliant, earlier during the day, was sad, withdrawn. Valproic acid level is 73, therapeutic lithium level 0.6. She is on lithium carbonate 300 mg a.m., 250 at bedtime. REVIEW OF SYSTEMS: No CV, , pulmonary, eye, ENT system symptoms on review. MENTAL STATUS EXAM: Oriented to herself and situation. Speech is coherent, still somewhat pressured, but lesser than before. Abstraction fair, computation impaired, language function intact, attention span short. Mood and affect showing improvement, less labile, less psychotic. LABORATORY DATA: Reviewed. IMPRESSION: Schizoaffective disorder, bipolar type, mixed with psychotic features; anxiety disorder, unspecified; mild cognitive impairment. PLAN: Maintain lithium at current dosage along with Depakote, Prozac 10 mg a day, Zyprexa has been reduced to 5 mg at bedtime with a plan to discontinue it since she is on Clozaril 350 at bedtime, melatonin will maintain p.r.n., Remeron 7.5 mg at bedtime. Adjust further as clinically indicated. MAN Rox WATT MD DR: SANCHEZ/fredrick JOB#: [id number] / [id number]
[2018-11-07 05:56] VITALS: BP 115/79
[2018-11-07] MEDS: IBUPROFEN 600 MG TABLET. PO SCH ×3 (06:00→19:59)
[2018-11-07 07:07] LABS: BASO % 1 % (0-3); EOS # 0.4 x10^3/uL (0.0-0.7); EOS % 7 % (0-3); HEMATOCRIT 34.7 % (36.0-47.0); HEMOGLOBIN 11.6 g/dL (12.0-15.5); LYMPH # 1.7 x10^3/uL (1.0-4.8); LYMPH % 32 % (24-48); MEAN CORPUSCULAR HEMOGLOBIN 30 pg (25-35); MEAN CORPUSCULAR HGB CONC 34 g/dL (31-37); MEAN CORPUSCULAR VOLUME 91 fL (79-100); MONO # 0.7 x10^3/uL (0.0-1.1); MONO % 13 % (0-9); NEUT # 2.5 x10^3uL (1.8-7.7); NEUT % 47 % (31-73); PLATELET COUNT 246 x10^3/uL (140-400); RED BLOOD COUNT 3.82 x10^6/uL (3.50-5.40); RED CELL DISTRIBUTION WIDTH 13.3 % (11.5-14.5); WHITE BLOOD COUNT 5.2 x10^3/uL (4.0-11.0)
[2018-11-07 07:21] LABS: ALBUMIN 2.7 g/dL (3.4-5.0); ALBUMIN/GLOBULIN RATIO 0.7 (1.0-1.7); CALCIUM 10.4 mg/dL (8.5-10.1); CREATININE 1.2 mg/dL (0.6-1.0); GFR 44.5; POTASSIUM 4.5 mmol/L (3.5-5.1); TOTAL BILIRUBIN 0.2 mg/dL (0.2-1.0); TOTAL PROTEIN 6.4 g/dL (6.4-8.2)
[2018-11-07] MEDS: LEVOTHYROXINE 75 MCG TABLET PO SCH (08:21)
[2018-11-07] MEDS: BENZTROPINE MESYLATE 0.5 MG TABLET PO SCH ×2 (08:22→19:58)
[2018-11-07] MEDS: LITHIUM CARBONATE 300 MG TABLET PO SCH (08:22)
[2018-11-07] MEDS: prednisoLONE ACETATE 1% OPHTH SUSPENSION 5ML BOTTLE. OD SCH (08:22)
[2018-11-07] MEDS: POLYETHYLENE GLYCOL 3350 17 GM PACKET. PO SCH (08:22)
[2018-11-07] MEDS: FUROSEMIDE 20 MG TABLET PO SCH (08:22)
[2018-11-07] MEDS: amLODIPine BESYLATE 5 MG TABLET PO SCH (08:23)
[2018-11-07] MEDS: CYANOCOBALAMIN (VITAMIN B-12) 1,000 MCG TABLET. PO SCH (08:23)
[2018-11-07] MEDS: FLUoxetine HCL 10 MG CAPSULE PO SCH (08:23)
[2018-11-07 15:29] VITALS: BP 134/92
[2018-11-07] MEDS: OLANZapine 5 MG TABLET PO SCH (19:58)
[2018-11-07] MEDS: DIVALPROEX ER 500 MG TAB.ER.24H PO SCH (19:58)
[2018-11-07] MEDS: ATORVASTATIN CALCIUM 20 MG TABLET PO SCH (19:58)
[2018-11-07] MEDS: MIRTAZAPINE 7.5 MG TABLET. PO SCH (19:58)
[2018-11-07] MEDS: cloZAPine 100 MG TABLET PO SCH (19:59)
[2018-11-07] MEDS: LITHIUM CITRATE PO SCH (20:04)
[2018-11-08 06:20] VITALS: BP 136/85
[2018-11-08] MEDS: LEVOTHYROXINE 75 MCG TABLET PO SCH (08:06)
[2018-11-08] MEDS: prednisoLONE ACETATE 1% OPHTH SUSPENSION 5ML BOTTLE. OD SCH (08:08)
[2018-11-08] MEDS: LITHIUM CARBONATE 300 MG TABLET PO SCH (08:08)
[2018-11-08] MEDS: FUROSEMIDE 20 MG TABLET PO SCH (08:09)
[2018-11-08] MEDS: POLYETHYLENE GLYCOL 3350 17 GM PACKET. PO SCH (08:09)
[2018-11-08] MEDS: BENZTROPINE MESYLATE 0.5 MG TABLET PO SCH ×2 (08:09→19:09)
[2018-11-08] MEDS: FLUoxetine HCL 10 MG CAPSULE PO SCH (08:10)
[2018-11-08] MEDS: CYANOCOBALAMIN (VITAMIN B-12) 1,000 MCG TABLET. PO SCH (08:10)
[2018-11-08] MEDS: amLODIPine BESYLATE 5 MG TABLET PO SCH (08:10)
--- NOTE | 2018-11-08 09:26 | PN ---
DATE: 11/07/2018 SUBJECTIVE: The patient was seen today, met with the staff, chart reviewed. Staff reports the patient is having increased sedation and sleep too much and also withdrawn. Otherwise not exhibiting any major behavior problems. OBSERVATION: VITAL SIGNS: Temperature 97.2, blood pressure 115/79, pulse 68, respirations 16, O2 sat 93%. Slept about 6 hours last night. The patient's appetite is fair. MEDICATIONS: Reviewed. Currently on Zyprexa 5 mg at night, mirtazapine 7.5 mg at night, lithium citrate 6.72 mEq at night, Depakote 1000 mg at night, clozapine 350 mg at night and lithium carbonate 300 mg at night, melatonin 3 mg. The patient's lab reviewed. The patient's calcium level was 10.4, creatinine 1.2, BUN 21. The patient denies of any other major medical problems at this time. ASSESSMENT: 1. Schizoaffective disorder, bipolar type, mixed with psychotic features. 2. Anxiety disorder, unspecified and mild cognitive impairment. PLAN: Continue her current treatment plan. ELLA PARTIDA MD DR: MONCHO/fredrick JOB#: [id number] / [id number]
[2018-11-08] MEDS ORDERED: CHOLECALCIFEROL (VITAMIN D3) 50,000 UNIT CAPSULE PO SCH (16:00)
[2018-11-08 16:59] VITALS: BP 147/89
[2018-11-08] MEDS: OLANZapine 5 MG TABLET PO SCH (19:09)
[2018-11-08] MEDS: cloZAPine 100 MG TABLET PO SCH (19:09)
[2018-11-08] MEDS: DIVALPROEX ER 500 MG TAB.ER.24H PO SCH (19:09)
[2018-11-08] MEDS: MIRTAZAPINE 7.5 MG TABLET. PO SCH (19:09)
[2018-11-08] MEDS: ATORVASTATIN CALCIUM 20 MG TABLET PO SCH (19:10)
[2018-11-08] MEDS: LITHIUM CITRATE PO SCH (19:11)
[2018-11-09 06:13] VITALS: BP 126/81
[2018-11-09 07:19] LABS: BASO % 1 % (0-3); EOS # 0.3 x10^3/uL (0.0-0.7); EOS % 5 % (0-3); HEMATOCRIT 35.9 % (36.0-47.0); LYMPH # 1.5 x10^3/uL (1.0-4.8); LYMPH % 27 % (24-48); MEAN CORPUSCULAR HEMOGLOBIN 30 pg (25-35); MEAN CORPUSCULAR HGB CONC 33 g/dL (31-37); MEAN CORPUSCULAR VOLUME 90 fL (79-100); MONO # 0.6 x10^3/uL (0.0-1.1); MONO % 11 % (0-9); NEUT # 3.2 x10^3uL (1.8-7.7); NEUT % 56 % (31-73); PLATELET COUNT 230 x10^3/uL (140-400); RED BLOOD COUNT 3.97 x10^6/uL (3.50-5.40); RED CELL DISTRIBUTION WIDTH 13.5 % (11.5-14.5); WHITE BLOOD COUNT 5.6 x10^3/uL (4.0-11.0)
[2018-11-09] MEDS: LEVOTHYROXINE 75 MCG TABLET PO SCH (07:41)
[2018-11-09] MEDS: CYANOCOBALAMIN (VITAMIN B-12) 1,000 MCG TABLET. PO SCH (08:10)
[2018-11-09] MEDS: amLODIPine BESYLATE 5 MG TABLET PO SCH (08:10)
[2018-11-09] MEDS: FLUoxetine HCL 10 MG CAPSULE PO SCH (08:10)
[2018-11-09] MEDS: LITHIUM CARBONATE 300 MG TABLET PO SCH (08:10)
[2018-11-09] MEDS: BENZTROPINE MESYLATE 0.5 MG TABLET PO SCH ×2 (08:10→20:40)
[2018-11-09] MEDS: FUROSEMIDE 20 MG TABLET PO SCH (08:11)
[2018-11-09] MEDS: prednisoLONE ACETATE 1% OPHTH SUSPENSION 5ML BOTTLE. OD SCH (08:11)
[2018-11-09] MEDS: POLYETHYLENE GLYCOL 3350 17 GM PACKET. PO SCH (08:11)
--- NOTE | 2018-11-09 14:18 | PN ---
DATE: 11/08/2018 SUBJECTIVE: The patient was seen today, met with the staff, chart reviewed. The patient's behavior has improved. The patient is not having any major side effects from the medications. The patient has periods where she tends to sleep excessively. OBSERVATION: VITAL SIGNS: Temperature 96.9, blood pressure 136/85, pulse 64, respirations 22, O2 sat 94%. Slept about 6-1/2 hours last night. LABORATORY DATA: The patient's lab reviewed. The patient's lithium level was 0.6. CURRENT MEDICATIONS: The patient's current medications include mirtazapine 7.5 mg at night, lithium carbonate 300 mg at night and lithium citrate 67.5 mEq at night, Depakote 1000 mg at night, clozapine 350 mg at night, and melatonin 3 mg at night. ASSESSMENT: 1. Schizoaffective disorder, bipolar type, mixed with psychotic features. 2. Anxiety disorder, unspecified. 3. Mild cognitive impairment. PLAN: To continue with the current treatment. ELLA PARTIDA MD DR: MONCHO/fredrick JOB#: [id number] / [id number] JANELL
[2018-11-09 16:27] VITALS: BP 105/85
[2018-11-09] MEDS: LITHIUM CITRATE PO SCH (20:38)
[2018-11-09] MEDS: cloZAPine 100 MG TABLET PO SCH (20:40)
[2018-11-09] MEDS: DIVALPROEX ER 500 MG TAB.ER.24H PO SCH (20:41)
[2018-11-09] MEDS: MIRTAZAPINE 7.5 MG TABLET. PO SCH (20:42)
[2018-11-09] MEDS: OLANZapine 5 MG TABLET PO SCH (20:42)
[2018-11-09] MEDS: ATORVASTATIN CALCIUM 20 MG TABLET PO SCH (20:42)
[2018-11-09] MEDS: ESTRADIOL 0.01% VAGINAL CREAM 42.5GM TUBE. VG SCH (20:48)
--- NOTE | 2018-11-09 23:40 | PN ---
DATE: 11/09/2018 SUBJECTIVE: The patient was seen today, met with the staff, chart reviewed. The patient is pleasant, able to walk, still has hand tremors. The patient has some speech impediment. The patient has problems with concentration and thinking. OBSERVATION: VITAL SIGNS: Temperature 98, blood pressure 126/81, pulse 74, respirations 16, O2 sat 96%. Slept about 7-1/2 hours last night. The patient's appetite is normal. LABORATORY DATA: The patient's lab reviewed. The patient's lithium level was 0.6. CURRENT MEDICATIONS: Include mirtazapine 7.5 mg at night, lithium carbonate 300 mg at night and also lithium citrate 6.72 mEq at night, Depakote 1000 mg at night, clozapine 350 mg at night and melatonin 3 mg at night. The patient is not having any side effects except for hand tremors. ASSESSMENT: 1. Schizoaffective disorder, bipolar type, with psychotic features. 2. Anxiety disorder, unspecified. 3. Mild cognitive impairment. PLAN: To continue with the treatment. LENGTH OF STAY: 3-5 days and plan for her to return to [facility]. ELLA PARTIDA MD DR: MONCHO/fredrick JOB#: [id number] / [id number]
[2018-11-10 06:04] VITALS: BP 120/73
[2018-11-10] MEDS: LEVOTHYROXINE 75 MCG TABLET PO SCH (06:04)
[2018-11-10] MEDS: prednisoLONE ACETATE 1% OPHTH SUSPENSION 5ML BOTTLE. OD SCH (07:56)
[2018-11-10] MEDS: LITHIUM CARBONATE 300 MG TABLET PO SCH (07:56)
[2018-11-10] MEDS: amLODIPine BESYLATE 5 MG TABLET PO SCH (07:57)
[2018-11-10] MEDS: CYANOCOBALAMIN (VITAMIN B-12) 1,000 MCG TABLET. PO SCH (07:57)
[2018-11-10] MEDS: POLYETHYLENE GLYCOL 3350 17 GM PACKET. PO SCH (07:57)
[2018-11-10] MEDS: FUROSEMIDE 20 MG TABLET PO SCH (07:57)
[2018-11-10] MEDS: BENZTROPINE MESYLATE 0.5 MG TABLET PO SCH ×2 (07:57→20:46)
[2018-11-10] MEDS: FLUoxetine HCL 10 MG CAPSULE PO SCH (07:57)
[2018-11-10 16:11] VITALS: BP 116/73
[2018-11-10] MEDS: MIRTAZAPINE 7.5 MG TABLET. PO SCH (20:46)
[2018-11-10] MEDS: ATORVASTATIN CALCIUM 20 MG TABLET PO SCH (20:46)
[2018-11-10] MEDS: OLANZapine 5 MG TABLET PO SCH (20:46)
[2018-11-10] MEDS: cloZAPine 100 MG TABLET PO SCH (20:46)
[2018-11-10] MEDS: DIVALPROEX ER 500 MG TAB.ER.24H PO SCH (20:47)
[2018-11-10] MEDS: LITHIUM CITRATE PO SCH (20:50)
--- NOTE | 2018-11-10 22:28 | PN ---
DATE: 11/10/2018 SUBJECTIVE: The patient was seen today, met with the staff, chart reviewed. The patient continues to show improvement, still has difficulty communicating, and has some speech impediment at times. The patient also is struggling to talk about her problems, become very emotional, tearful, but could not talk about what was going on with her feelings and thinking. The patient wants to be left alone at times. The patient is staying in her room most of the day. OBSERVATIONS: VITAL SIGNS: Stable. The patient is sleeping good. Her appetite is normal. The patient's lab reviewed. MEDICATIONS: The patient's current medications include mirtazapine 7.5 mg at night, lithium carbonate 300 mg at night and also lithium citrate 6.72 mEq at night, Depakote 1000 mg at night, clozapine 350 mg at night and melatonin 3 mg at night. The patient denies of any side effects to medications and no major physical problems. ASSESSMENT: 1. Schizoaffective disorder, bipolar type, with psychotic features. 2. Anxiety disorder, unspecified. 3. Mild cognitive impairment. PLAN: To continue with the treatment. LENGTH OF STAY: 3 days. ELLA PARTIDA MD DR: MONCHO/fredrick JOB#: [id number] / [id number]
[2018-11-11] MEDS: MELATONIN 3 MG TABLET PO PRN (01:32)
[2018-11-11] MEDS: LEVOTHYROXINE 75 MCG TABLET PO SCH (06:15)
[2018-11-11 06:16] VITALS: BP 115/72
[2018-11-11 08:03] LABS: BACTERIA,URINE FEW /HPF (0-FEW); BILIRUBIN,URINE NEG (NEG); CLARITY,URINE HAZY; COLOR,URINE YELLOW; GLUCOSE,URINE NEG (NEG); NITRITE,URINE NEG (NEG); RBC,URINE 0 /HPF (0-2); SQUAMOUS EPITHELIAL CELL,UR FEW /LPF; UROBILINOGEN,URINE 0.2 mg/dL (0.2 mg/dL)
[2018-11-11] MEDS: BENZTROPINE MESYLATE 0.5 MG TABLET PO SCH ×2 (08:45→20:32)
[2018-11-11] MEDS: amLODIPine BESYLATE 5 MG TABLET PO SCH (08:45)
[2018-11-11] MEDS: prednisoLONE ACETATE 1% OPHTH SUSPENSION 5ML BOTTLE. OD SCH (08:46)
[2018-11-11] MEDS: FUROSEMIDE 20 MG TABLET PO SCH (08:46)
[2018-11-11] MEDS: LITHIUM CARBONATE 300 MG TABLET PO SCH (08:46)
[2018-11-11] MEDS: POLYETHYLENE GLYCOL 3350 17 GM PACKET. PO SCH (08:46)
[2018-11-11] MEDS: CYANOCOBALAMIN (VITAMIN B-12) 1,000 MCG TABLET. PO SCH (08:46)
[2018-11-11] MEDS: FLUoxetine HCL 10 MG CAPSULE PO SCH (08:46)
[2018-11-11 15:43] VITALS: BP 113/78
[2018-11-11] MEDS: DIVALPROEX ER 500 MG TAB.ER.24H PO SCH (20:32)
[2018-11-11] MEDS: OLANZapine 5 MG TABLET PO SCH (20:32)
[2018-11-11] MEDS: ATORVASTATIN CALCIUM 20 MG TABLET PO SCH (20:32)
[2018-11-11] MEDS: MIRTAZAPINE 7.5 MG TABLET. PO SCH (20:32)
[2018-11-11] MEDS: cloZAPine 100 MG TABLET PO SCH (20:33)
[2018-11-11] MEDS: LITHIUM CITRATE PO SCH (20:34)
--- NOTE | 2018-11-11 23:55 | PN ---
DATE: 11/11/2018 SUBJECTIVE: The patient was seen today, met with the staff, chart reviewed. The patient is still having difficulty communicating, still has some speech impediment. The patient also is emotional at times, difficulty verbalizing her feelings. The patient also has emotional outburst, tearful and also emotional lability. OBSERVATION: VITAL SIGNS: Temperature 97.9, blood pressure 115/72, pulse 80, respiration 18, O2 sat 92%. Slept about 6-1/2 hours last night. The patient's appetite is fair. MEDICATIONS: The patient's current medications include mirtazapine 7.5 mg at night, lithium carbonate 300 mg at night and also lithium citrate 6.72 mEq at night, Depakote 1000 mg at night, clozapine 350 mg at night and melatonin 3 mg at night. The patient denies of any side effects to medications. ASSESSMENT: 1. Schizoaffective disorder, bipolar type, with psychotic features. 2. Anxiety disorder, unspecified. 3. Mild cognitive disorder. PLAN: To continue with the treatment. LENGTH OF STAY: 3 days. ELLA PARTIDA MD DR: MONCHO/fredrick JOB#: [id number] / [id number]
--- NOTE | 2018-11-12 04:39 | CONS ---
DATE OF CONSULTATION: 11/11/2018 REASON FOR CONSULTATION: Medical management. HISTORY OF PRESENT ILLNESS: The patient is a 68-year-old female patient who was admitted to [facility] on account of acute mental status change, being extremely sedated, sleeping too much, lethargic, being anxious, paranoid, poor attention, concentration and psychotic. She had failed outpatient psychiatric intervention at the [facility] 2 al[facility] facility in [place] and was admitted for inpatient psychiatric stabilization. The patient is known to have a long history of bipolar disorder, mixed with psychotic features versus schizoaffective disorder, bipolar type. She was an inpatient at [facility] in the past more than one occasion and has had several other psychiatric hospitalizations including [facility] among others. PAST MEDICAL HISTORY: Significant for hypertension, hyperlipidemia, obstructive sleep apnea, recurrent UTIs, chronic constipation, dyspepsia, hypothyroidism and expressive aphasia. PAST SURGICAL HISTORY: Significant for cataract extraction from her left eye. FAMILY HISTORY: Noncontributory. SOCIAL HISTORY: She does not drink alcohol or use any recreational drugs. She is a resident at [facility]. ALLERGIES: SHE IS ALLERGIC TO BENZODIAZEPINES, STEROIDS, ATIVAN AND KLONOPIN. MEDICATIONS: She is currently on following medications: She is on atorvastatin calcium 20 mg at bedtime, amlodipine 5 mg once a day, ibuprofen 800 mg every 8 hours, tramadol 50 mg every 8 hours, Tylenol 650 mg every 6 hours, divalproex sodium 1000 mg at bedtime, fluoxetine 10 mg daily, mirtazapine 7.5 mg at bedtime, clozapine 350 mg at bedtime, olanzapine 10 mg at bedtime, lithium carbonate 300 mg daily, lithium citrate 4.2 mL at bedtime. She is on benztropine mesylate 0.5 mg twice a day. She is on furosemide 20 mg daily, prednisolone acetate 1 drop to both eyes daily. She is on Refresh Classic eye drops 1 drop to both eyes 3 times a day and she is on Maalox 15 mL after meals and as needed, magnesium hydroxide for milk of magnesia 30 mL p.o. daily p.r.n. for constipation, polyethylene glycol 17 grams daily, estradiol or Estrace 1 application vaginally 2 times per week q. Friday and . She is on levothyroxine 75 mcg once a day, cyanocobalamin for vitamin B12 1000 mcg p.o. daily, cholecalciferol 50,000 international units once a week, every Friday and melatonin 3 mg as needed. REVIEW OF SYSTEMS: As per history of present illness. PHYSICAL EXAMINATION: GENERAL: On examining her, she looked somewhat pale, no jaundiced or cyanosed, no thyromegaly. No jugular venous distension. No limb edema. VITAL SIGNS: Her heart rate was 80, blood pressure was 115/72, temperature was 97.9, respiratory rate was 18 and oxygen saturation was 95%. HEENT: Normocephalic, atraumatic. NECK: Supple. HEART: Showed normal first and second heart sounds with no gallop, rub or murmur. CHEST: Clear to auscultation. No crepitation or rhonchi. ABDOMEN: Distended, soft, nontender. No guarding or rigidity. No organomegaly. All hernial orifice intact. Bowel sounds normal. NEUROLOGIC: The patient is able to ambulate without assistance or assistive devices. LABORATORY DATA: Reviewing her lab work showed a white cell count of 5600, hemoglobin 12, hematocrit 36, MCV 90 and platelet count 230,000 with normal manual differential. Her chemistry showed a serum sodium of 141, potassium 4.5, chloride 104, bicarbonate 31, anion gap of 6, BUN 21, creatinine 1.2, estimated GFR was 44 mL per minute. Her glucose was 92 and calcium was 7.4. Total bilirubin, AST, ALT, alkaline phosphatase were normal. Total protein was 6.4, albumin was 2.7. Her 25-hydroxy vitamin D was high at 90.7, total T4 was 6.9, total T3 was 70. Her TSH was 224. Her serum iron was 38, TIBC was 257 and iron saturation was 15. Urinalysis was essentially unremarkable and toxic screen was essentially unremarkable. Her valproic acid is actually well within the therapeutic range. Her Treponema pallidum antibody is nonreactive. So, in summary this is a 68-year-old female patient who was admitted on account of acute mental status changes, being extremely sedated, sleeping too much, lethargic, being anxious, paranoid, poor attention and concentration and psychotic. She apparently has failed outpatient psychiatric intervention at the level 2 alf facility in [place]. Medically, she has multiple medical problems including hypertension, hyperlipidemia, obstructive sleep apnea, hypothyroidism, expressive aphasia, and chronic constipation. She seemed to be all in all medically stable. Her vital signs are stable. Her lab work seems to be well within the acceptable range. Her calcium is actually in the high side, so we will check her intact parathyroid hormone as well as serum phosphorus and she is obviously on a large dose of vitamin D that might be contributing. She is also on lithium that might be also causing hypercalcemia. We will probably repeat lab works tomorrow including intact PTH and decide on further management accordingly. TANIA DELGADO MD DR: TRINIDAD/fredrick JOB#: [id number] / [id number]
[2018-11-12] MEDS: LEVOTHYROXINE 75 MCG TABLET PO SCH (05:54)
[2018-11-12 06:06] VITALS: BP 95/67
[2018-11-12 06:44] LABS: ALBUMIN 2.9 g/dL (3.4-5.0); ALBUMIN/GLOBULIN RATIO 0.8 (1.0-1.7); CALCIUM 10.2 mg/dL (8.5-10.1); CREATININE 0.9 mg/dL (0.6-1.0); GFR 62.1; PHOSPHORUS 3.4 mg/dL (2.6-4.7); POTASSIUM 4.4 mmol/L (3.5-5.1); TOTAL BILIRUBIN 0.2 mg/dL (0.2-1.0); TOTAL PROTEIN 6.7 g/dL (6.4-8.2)
[2018-11-12] MEDS: BENZTROPINE MESYLATE 0.5 MG TABLET PO SCH ×2 (09:23→19:44)
[2018-11-12] MEDS: FLUoxetine HCL 10 MG CAPSULE PO SCH (09:23)
[2018-11-12] MEDS: CYANOCOBALAMIN (VITAMIN B-12) 1,000 MCG TABLET. PO SCH (09:23)
[2018-11-12] MEDS: FUROSEMIDE 20 MG TABLET PO SCH (09:23)
[2018-11-12] MEDS: POLYETHYLENE GLYCOL 3350 17 GM PACKET. PO SCH (09:23)
[2018-11-12] MEDS: amLODIPine BESYLATE 5 MG TABLET PO SCH (09:25)
[2018-11-12] MEDS: prednisoLONE ACETATE 1% OPHTH SUSPENSION 5ML BOTTLE. OD SCH (09:28)
[2018-11-12] MEDS: LITHIUM CARBONATE 300 MG TABLET PO SCH (09:28)
[2018-11-12 09:32] VITALS: BP 109/74
[2018-11-12 15:54] VITALS: BP 125/77
[2018-11-12] MEDS: cloZAPine 100 MG TABLET PO SCH (19:43)
[2018-11-12] MEDS: DIVALPROEX ER 500 MG TAB.ER.24H PO SCH (19:44)
[2018-11-12] MEDS: ATORVASTATIN CALCIUM 20 MG TABLET PO SCH (19:45)
[2018-11-12] MEDS: MIRTAZAPINE 7.5 MG TABLET. PO SCH (19:45)
[2018-11-12] MEDS: LITHIUM CITRATE PO SCH (19:46)
[2018-11-12] MEDS: OLANZapine 5 MG TABLET PO SCH (19:47)
[2018-11-12] MEDS: ESTRADIOL 0.01% VAGINAL CREAM 42.5GM TUBE. VG SCH ×2 (19:48→19:52)
[2018-11-12] MEDS: traMADol 50 MG TABLET PO PRN (19:53)
--- NOTE | 2018-11-13 01:37 | PN ---
DATE: 11/12/2018 SUBJECTIVE: The patient was seen today, met with the staff, chart reviewed. The patient's behavior remains the same, continues to have mood swings, irritability, disorganized thinking. The patient's behavior has improved, still slightly. OBSERVATION: VITAL SIGNS: Temperature 98.1, pulse is 81, respirations 18, O2 sat 93%. Slept about 7 hours last night. The patient's appetite improved. MEDICATIONS: The patient's current medications include mirtazapine 7.5 mg at night, lithium carbonate 300 mg at night and also lithium citrate 6.72 mEq at night, Depakote 1000 mg at night, clozapine 350 mg at night and melatonin 3 mg at night. The patient denies any side effects to medications. ASSESSMENT: 1. Schizoaffective disorder, bipolar type, with psychotic features. 2. Anxiety disorder, unspecified. 3. Mild cognitive disorder. PLAN: Continue with the treatment. LENGTH OF STAY: 3 to 5 days ELLA PARTIDA MD DR: MONCHO/fredrick JOB#: [id number] / [id number]
[2018-11-13] MEDS: LEVOTHYROXINE 75 MCG TABLET PO SCH (05:42)
[2018-11-13 06:11] VITALS: BP 106/69
[2018-11-13] MEDS: FLUoxetine HCL 10 MG CAPSULE PO SCH (08:56)
[2018-11-13] MEDS: LITHIUM CARBONATE 300 MG TABLET PO SCH (08:57)
[2018-11-13] MEDS: BENZTROPINE MESYLATE 0.5 MG TABLET PO SCH ×2 (08:57→19:52)
[2018-11-13] MEDS: amLODIPine BESYLATE 5 MG TABLET PO SCH (08:57)
[2018-11-13] MEDS: CYANOCOBALAMIN (VITAMIN B-12) 1,000 MCG TABLET. PO SCH (08:57)
[2018-11-13] MEDS: FUROSEMIDE 20 MG TABLET PO SCH (08:58)
[2018-11-13] MEDS: POLYETHYLENE GLYCOL 3350 17 GM PACKET. PO SCH (08:58)
[2018-11-13] MEDS: prednisoLONE ACETATE 1% OPHTH SUSPENSION 5ML BOTTLE. OD SCH (08:59)
[2018-11-13 09:09] LABS: CALCIUM PTH 9.9 mg/dL (8.7-10.3); CREATININE PTH 0.89 mg/dL (0.57-1.00); PTH INTACT 78 pg/mL (15-65)
[2018-11-13 15:51] VITALS: BP 136/79
[2018-11-13] MEDS: LITHIUM CITRATE PO SCH (19:51)
[2018-11-13] MEDS: cloZAPine 100 MG TABLET PO SCH (19:51)
[2018-11-13] MEDS: OLANZapine 5 MG TABLET PO SCH (19:52)
[2018-11-13] MEDS: DIVALPROEX ER 500 MG TAB.ER.24H PO SCH (19:52)
[2018-11-13] MEDS: ATORVASTATIN CALCIUM 20 MG TABLET PO SCH (19:52)
[2018-11-13] MEDS: MIRTAZAPINE 7.5 MG TABLET. PO SCH (19:52)
[2018-11-13] MEDS: IBUPROFEN 600 MG TABLET. PO PRN (21:35)
--- NOTE | 2018-11-13 23:34 | PN ---
DATE: 11/13/2018 SUBJECTIVE: The patient was seen today, met with the staff, chart reviewed. The patient's behavior has improved, still having mood swings, irritability and disorganized thinking. OBSERVATION: VITAL SIGNS: Temperature 98.7, blood pressure 106/72, pulse 66, respirations 20, O2 sat 98%. Slept about 6 hours last night. The patient's appetite is fair. The patient is struggling with his communication. The patient also gets very emotional, also has some thought blocking. The patient also gets agitated easily on one to one interactions. The patient is also having problems processing information. MEDICATIONS: The patient's current medications include mirtazapine 7.5 mg at night, lithium carbonate 300 mg at night and lithium citrate 6.72 mEq at night, Depakote 1000 mg at night, Clozapine 350 mg at night and melatonin 3 mg at night. The patient denies of any side effects to medications. ASSESSMENT: 1. Schizoaffective disorder, bipolar type, with psychotic features. 2. Anxiety disorder, unspecified. 3. Mild cognitive disorder. PLAN: To continue with the treatment. LENGTH OF STAY: 3-5 days. ELLA PARTIDA MD DR: MONCHO/fredrick JOB#: [id number] / [id number]
[2018-11-14] MEDS: LEVOTHYROXINE 75 MCG TABLET PO SCH (05:45)
[2018-11-14 06:13] VITALS: BP 122/78
[2018-11-14] MEDS: LITHIUM CARBONATE 300 MG TABLET PO SCH (08:41)
[2018-11-14] MEDS: BENZTROPINE MESYLATE 0.5 MG TABLET PO SCH ×2 (08:41→19:57)
[2018-11-14] MEDS: amLODIPine BESYLATE 5 MG TABLET PO SCH (08:41)
[2018-11-14] MEDS: CYANOCOBALAMIN (VITAMIN B-12) 1,000 MCG TABLET. PO SCH (08:42)
[2018-11-14] MEDS: FLUoxetine HCL 10 MG CAPSULE PO SCH (08:42)
[2018-11-14] MEDS: FUROSEMIDE 20 MG TABLET PO SCH (08:42)
[2018-11-14] MEDS: POLYETHYLENE GLYCOL 3350 17 GM PACKET. PO SCH (08:42)
[2018-11-14] MEDS: prednisoLONE ACETATE 1% OPHTH SUSPENSION 5ML BOTTLE. OD SCH (08:56)
[2018-11-14 15:44] VITALS: BP 105/70
[2018-11-14] MEDS: DICLOFENAC SODIUM 1% TOPICAL GEL 100GM TUBE. TP SCH ×2 (17:00→19:57)
[2018-11-14] MEDS: LITHIUM CITRATE PO SCH (19:56)
[2018-11-14] MEDS: cloZAPine 100 MG TABLET PO SCH (19:57)
[2018-11-14] MEDS: ATORVASTATIN CALCIUM 20 MG TABLET PO SCH (19:57)
[2018-11-14] MEDS: DIVALPROEX ER 500 MG TAB.ER.24H PO SCH (19:57)
[2018-11-14] MEDS: MIRTAZAPINE 7.5 MG TABLET. PO SCH (19:57)
[2018-11-14] MEDS: OLANZapine 5 MG TABLET PO SCH (19:57)
--- NOTE | 2018-11-14 21:59 | PDOC ---
Exam Note: Julian Note: Please also refer to the separate dictated note~for this date of service dictated separately.~Patient seen individually. Discussed the patient with Nursing staff reviewed the chart.~Reviewed interim history and current functioning. Reviewed vital signs,~Labs/ Radiology~and current medications noted below. Continue current treatment with the changes noted in the dictated addendum note Assessment: Vital Signs/I&O: Vital Signs Date Time Temp Pulse Resp B/P (MAP) Pulse Ox O2 Delivery O2 Flow Rate FiO2 11/14/18 15:44 98.7 95 18 105/70 (82) 94 Room Air I & O 11/13/18 11/13/18 11/14/18 15:00 23:00 07:00 Intake Total 720 ml 240 ml 120 ml Balance 720 ml 240 ml 120 ml Current Medications: Meds: Current Medications Medications (Trade) Dose Ordered Sig/Bora Route PRN Reason Start Time Stop Time Status Last Admin Dose Admin Diclofenac Sodium (Voltaren) 1 barbara QID TP 11/14/18 17:00 11/14/18 19:57 I have reviewed the current psychotropics carefully including drug interactions. Risk benefit ratio favors no change other than as noted in my dictated progress note. 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
[2018-11-15] MEDS: LEVOTHYROXINE 75 MCG TABLET PO SCH (05:28)
[2018-11-15 06:13] VITALS: BP 117/75
[2018-11-15] MEDS: POLYETHYLENE GLYCOL 3350 17 GM PACKET. PO SCH (07:49)
[2018-11-15] MEDS: BENZTROPINE MESYLATE 0.5 MG TABLET PO SCH ×2 (07:50→20:06)
[2018-11-15] MEDS: LITHIUM CARBONATE 300 MG TABLET PO SCH (07:50)
[2018-11-15] MEDS: CYANOCOBALAMIN (VITAMIN B-12) 1,000 MCG TABLET. PO SCH (07:50)
[2018-11-15] MEDS: amLODIPine BESYLATE 5 MG TABLET PO SCH (07:51)
[2018-11-15] MEDS: FUROSEMIDE 20 MG TABLET PO SCH (07:51)
[2018-11-15] MEDS: FLUoxetine HCL 10 MG CAPSULE PO SCH (07:51)
[2018-11-15] MEDS: prednisoLONE ACETATE 1% OPHTH SUSPENSION 5ML BOTTLE. OD SCH (07:52)
[2018-11-15] MEDS: DICLOFENAC SODIUM 1% TOPICAL GEL 100GM TUBE. TP SCH ×5 (07:53→21:42)
[2018-11-15 16:47] VITALS: BP 109/73
[2018-11-15] MEDS: DIVALPROEX ER 500 MG TAB.ER.24H PO SCH (20:05)
[2018-11-15] MEDS: cloZAPine 100 MG TABLET PO SCH (20:06)
[2018-11-15] MEDS: ATORVASTATIN CALCIUM 20 MG TABLET PO SCH (20:07)
[2018-11-15] MEDS: OLANZapine 5 MG TABLET PO SCH (20:07)
[2018-11-15] MEDS: MIRTAZAPINE 7.5 MG TABLET. PO SCH (20:07)
[2018-11-15] MEDS: LITHIUM CITRATE PO SCH (20:09)
--- NOTE | 2018-11-15 22:40 | PDOC ---
Exam Note: Julian Note: Please also refer to the separate dictated note~for this date of service dictated separately.~Patient seen individually. Discussed the patient with Nursing staff reviewed the chart.~Reviewed interim history and current functioning. Reviewed vital signs,~Labs/ Radiology~and current medications noted below. Continue current treatment with the changes noted in the dictated addendum note Assessment: Vital Signs/I&O: Vital Signs Date Time Temp Pulse Resp B/P (MAP) Pulse Ox O2 Delivery O2 Flow Rate FiO2 11/15/18 16:47 97.4 92 18 109/73 (85) 97 11/14/18 15:44 Room Air I & O 11/14/18 11/14/18 11/15/18 14:59 22:59 06:59 Intake Total 660 ml 480 ml 240 ml Balance 660 ml 480 ml 240 ml Current Medications: I have reviewed the current psychotropics carefully including drug interactions. Risk benefit ratio favors no change other than as noted in my dictated progress note. 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
--- NOTE | 2018-11-16 01:45 | PN ---
DATE: 11/14/2018 PSYCHIATRIC PROGRESS NOTE This is a late entry 11/14/2018 covers the elements not covered in my initial note. SUBJECTIVE: I met with the patient in the evening. The patient slept 6-3/4 hours previous night. Overall, she is doing better. Has had some drooling, has had some arthritic pain, started on Voltaren gel and since she is on lithium, we will check a lithium level, Depakote level, CBC, CMP. Last lithium level was 0.6, but the nonsteroidal anti-inflammatory might have a tendency to increase this. We will just readjust as needed. Reviewed information from Dr. Devine who had covered for me over the past 1 week. REVIEW OF SYSTEMS: No CV, , pulmonary, eye system symptoms on review other than some drooling. MENTAL STATUS EXAM: Oriented reasonably, very quiet, animated, verbal with me, shaking my hand. Speech coherent, at times. Abstraction fair, computation impaired, language function intact, attention span short. Mood and affect improved. LABORATORY DATA: Reviewed. No suicidal ideation. IMPRESSION: Unchanged from initial note. PLAN: No change from initial note. MAN Rox WATT MD DR: SANCHEZ/fredrick JOB#: [id number] / [id number]
[2018-11-16 06:05] VITALS: BP 118/69
[2018-11-16] MEDS: LEVOTHYROXINE 75 MCG TABLET PO SCH (06:25)
[2018-11-16] MEDS: LITHIUM CARBONATE 300 MG TABLET PO SCH (07:30)
[2018-11-16] MEDS: amLODIPine BESYLATE 5 MG TABLET PO SCH (07:30)
[2018-11-16] MEDS: FLUoxetine HCL 10 MG CAPSULE PO SCH (07:31)
[2018-11-16] MEDS: CYANOCOBALAMIN (VITAMIN B-12) 1,000 MCG TABLET. PO SCH (07:31)
[2018-11-16] MEDS: BENZTROPINE MESYLATE 0.5 MG TABLET PO SCH ×2 (07:31→20:49)
[2018-11-16] MEDS: FUROSEMIDE 20 MG TABLET PO SCH (07:31)
[2018-11-16] MEDS: POLYETHYLENE GLYCOL 3350 17 GM PACKET. PO SCH (07:31)
[2018-11-16] MEDS: DICLOFENAC SODIUM 1% TOPICAL GEL 100GM TUBE. TP SCH ×4 (07:32→23:03)
[2018-11-16] MEDS: prednisoLONE ACETATE 1% OPHTH SUSPENSION 5ML BOTTLE. OD SCH (07:33)
[2018-11-16 08:09] LABS: BASO % 1 % (0-3); EOS # 0.2 x10^3/uL (0.0-0.7); EOS % 5 % (0-3); HEMATOCRIT 36.5 % (36.0-47.0); HEMOGLOBIN 12.1 g/dL (12.0-15.5); LYMPH # 1.2 x10^3/uL (1.0-4.8); LYMPH % 24 % (24-48); MEAN CORPUSCULAR HEMOGLOBIN 30 pg (25-35); MEAN CORPUSCULAR HGB CONC 33 g/dL (31-37); MEAN CORPUSCULAR VOLUME 91 fL (79-100); MONO # 0.7 x10^3/uL (0.0-1.1); MONO % 13 % (0-9); NEUT # 2.8 x10^3uL (1.8-7.7); NEUT % 57 % (31-73); PLATELET COUNT 219 x10^3/uL (140-400); RED BLOOD COUNT 4.02 x10^6/uL (3.50-5.40); RED CELL DISTRIBUTION WIDTH 14.2 % (11.5-14.5)
[2018-11-16 08:25] LABS: ALBUMIN 3.2 g/dL (3.4-5.0); ALBUMIN/GLOBULIN RATIO 0.8 (1.0-1.7); ALK PHOS 89 U/L (46-116); ALT (SGPT) 16 U/L (14-59); ANION GAP 5 (6-14); AST (SGOT) 15 U/L (15-37); BLOOD UREA NITROGEN 13 mg/dL (7-20); BUN/CREATININE RATIO 14 (6-20); CALCIUM 10.6 mg/dL (8.5-10.1); CARBON DIOXIDE 31 mmol/L (21-32); CHLORIDE 106 mmol/L (98-107); CREATININE 0.9 mg/dL (0.6-1.0); GFR 62.1; GLUCOSE 97 mg/dL (70-99); POTASSIUM 4.3 mmol/L (3.5-5.1); SODIUM 142 mmol/L (136-145); TOTAL BILIRUBIN 0.3 mg/dL (0.2-1.0); TOTAL PROTEIN 7.3 g/dL (6.4-8.2)
[2018-11-16 08:27] LABS: VAL ACID 62 mcg/mL (50-100)
[2018-11-16 16:33] VITALS: BP 127/79
[2018-11-16] MEDS: MIRTAZAPINE 7.5 MG TABLET. PO SCH (20:49)
[2018-11-16] MEDS: ATORVASTATIN CALCIUM 20 MG TABLET PO SCH (20:49)
[2018-11-16] MEDS: OLANZapine 5 MG TABLET PO SCH (20:49)
[2018-11-16] MEDS: LITHIUM CITRATE PO SCH (20:50)
[2018-11-16] MEDS: DIVALPROEX ER 500 MG TAB.ER.24H PO SCH (20:50)
[2018-11-16] MEDS: cloZAPine 100 MG TABLET PO SCH (20:53)
--- NOTE | 2018-11-16 22:35 | PDOC ---
Exam Note: Julian Note: Please also refer to the separate dictated note~for this date of service dictated separately.~Patient seen individually. Discussed the patient with Nursing staff reviewed the chart.~Reviewed interim history and current functioning. Reviewed vital signs,~Labs/ Radiology~and current medications noted below. Continue current treatment with the changes noted in the dictated addendum note Assessment: Vital Signs/I&O: Vital Signs Date Time Temp Pulse Resp B/P (MAP) Pulse Ox O2 Delivery O2 Flow Rate FiO2 11/16/18 16:33 98.9 98 18 127/79 (95) 96 11/14/18 15:44 Room Air I & O 11/15/18 11/15/18 11/16/18 14:59 22:59 06:59 Intake Total 1200 ml 720 ml Balance 1200 ml 720 ml Labs: Laboratory Tests Test 11/16/18 07:21 White Blood Count 5.0 x10^3/uL (4.0-11.0) Red Blood Count 4.02 x10^6/uL (3.50-5.40) Hemoglobin 12.1 g/dL (12.0-15.5) Hematocrit 36.5 % (36.0-47.0) Mean Corpuscular Volume 91 fL (79-100) Mean Corpuscular Hemoglobin 30 pg (25-35) Mean Corpuscular Hemoglobin Concent 33 g/dL (31-37) Red Cell Distribution Width 14.2 % (11.5-14.5) Platelet Count 219 x10^3/uL (140-400) Neutrophils (%) (Auto) 57 % (31-73) Lymphocytes (%) (Auto) 24 % (24-48) Monocytes (%) (Auto) 13 % (0-9) H Eosinophils (%) (Auto) 5 % (0-3) H Basophils (%) (Auto) 1 % (0-3) Neutrophils # (Auto) 2.8 x10^3uL (1.8-7.7) Lymphocytes # (Auto) 1.2 x10^3/uL (1.0-4.8) Monocytes # (Auto) 0.7 x10^3/uL (0.0-1.1) Eosinophils # (Auto) 0.2 x10^3/uL (0.0-0.7) Basophils # (Auto) 0.0 x10^3/uL (0.0-0.2) Sodium Level 142 mmol/L (136-145) Potassium Level 4.3 mmol/L (3.5-5.1) Chloride Level 106 mmol/L (98-107) Carbon Dioxide Level 31 mmol/L (21-32) Anion Gap 5 (6-14) L Blood Urea Nitrogen 13 mg/dL (7-20) Creatinine 0.9 mg/dL (0.6-1.0) Estimated GFR (Cockcroft-Gault) 62.1 BUN/Creatinine Ratio 14 (6-20) Glucose Level 97 mg/dL (70-99) Calcium Level 10.6 mg/dL (8.5-10.1) H Total Bilirubin 0.3 mg/dL (0.2-1.0) Aspartate Amino Transferase (AST) 15 U/L (15-37) Alanine Aminotransferase (ALT) 16 U/L (14-59) Alkaline Phosphatase 89 U/L (46-116) Total Protein 7.3 g/dL (6.4-8.2) Albumin 3.2 g/dL (3.4-5.0) L Albumin/Globulin Ratio 0.8 (1.0-1.7) L Valproic Acid Level 62 mcg/mL (50-100) Valproic Acid Last Dose Date 11/15/2018 Valproic Acid Last Dose Time 2100 [place] Level 0.8 mmol/L (0.6-1.2) Cove Last Dose Date 11/15/18 [place] Last Dose Time 2100 Current Medications: I have reviewed the current psychotropics carefully including drug interactions. Risk benefit ratio favors no change other than as noted in my dictated progress note. 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
[2018-11-16] MEDS: ESTRADIOL 0.01% VAGINAL CREAM 42.5GM TUBE. VG SCH (23:03)
--- NOTE | 2018-11-17 02:25 | PN ---
DATE: 11/15/2018 PSYCHIATRIC PROGRESS NOTE This late entry, 11/15/2018, covers elements not covered in my initial note. SUBJECTIVE: I met with the patient in the evening. The patient slept 7-1/4 hours previous night. She has had no behaviors per nursing report. Drooling is better. REVIEW OF SYSTEMS: No CV, , pulmonary, eye, ENT system symptoms on review. She was very pleasant, holding my hand, trying to shake it, quite appropriate. MENTAL STATUS EXAM: Oriented reasonably. Speech can be a little difficult to understand at times, but for the most part reasonable. Abstraction fair, computation impaired, language function intact, attention span short. Mood and affect less anxious, withdrawn. No active suicidal or homicidal ideation. No active psychotic symptoms. LABORATORY DATA: Reviewed. IMPRESSION: Unchanged from initial note. PLAN: Check CBC, CMP, valproic acid level, lithium level, absolute neutrophil count, morning of 11/16/2018. Continue rest unchanged from initial note. KIERSTEN WATT MD DR: SANCHEZ/fredrick JOB#: [id number] / [id number]
[2018-11-17] MEDS: LEVOTHYROXINE 75 MCG TABLET PO SCH (04:14)
[2018-11-17 06:08] VITALS: BP 138/77
[2018-11-17] MEDS: DICLOFENAC SODIUM 1% TOPICAL GEL 100GM TUBE. TP SCH ×4 (06:47→19:14)
[2018-11-17] MEDS: CYANOCOBALAMIN (VITAMIN B-12) 1,000 MCG TABLET. PO SCH (07:18)
[2018-11-17] MEDS: FLUoxetine HCL 10 MG CAPSULE PO SCH (07:18)
[2018-11-17] MEDS: FUROSEMIDE 20 MG TABLET PO SCH (07:18)
[2018-11-17] MEDS: POLYETHYLENE GLYCOL 3350 17 GM PACKET. PO SCH (07:18)
[2018-11-17] MEDS: BENZTROPINE MESYLATE 0.5 MG TABLET PO SCH ×2 (07:18→19:12)
[2018-11-17] MEDS: amLODIPine BESYLATE 5 MG TABLET PO SCH (07:18)
[2018-11-17] MEDS: prednisoLONE ACETATE 1% OPHTH SUSPENSION 5ML BOTTLE. OD SCH (07:19)
[2018-11-17] MEDS: LITHIUM CARBONATE 300 MG TABLET PO SCH (07:19)
[2018-11-17 16:10] VITALS: BP 108/75
[2018-11-17] MEDS: ATORVASTATIN CALCIUM 20 MG TABLET PO SCH (19:12)
[2018-11-17] MEDS: MIRTAZAPINE 7.5 MG TABLET. PO SCH (19:12)
[2018-11-17] MEDS: OLANZapine 5 MG TABLET PO SCH (19:13)
[2018-11-17] MEDS: cloZAPine 100 MG TABLET PO SCH (19:13)
[2018-11-17] MEDS: DIVALPROEX ER 500 MG TAB.ER.24H PO SCH (19:14)
[2018-11-17] MEDS: LITHIUM CITRATE PO SCH (19:15)
--- NOTE | 2018-11-17 22:03 | PN ---
DATE: 11/16/2018 PSYCHIATRIC PROGRESS NOTE This is a late entry 11/16/2018 covers elements not covered in my initial note. SUBJECTIVE: I met with the patient evening of 11/16/2018. The patient slept 6-1/2 hours previous night. Absolute neutrophil count is satisfactory. The chemistry profile unremarkable. She still complains of some slurring of her words, but feels the racing thoughts are better. Valproic acid level therapeutic. REVIEW OF SYSTEMS: No CV, , pulmonary, eye, ENT system symptoms on review. MENTAL STATUS EXAM: Reasonably oriented. Speech is noted. Abstraction fair, computation impaired, language function intact, attention span short. Mood and affect, lability is improved. No active psychotic symptoms, suicidal, or homicidal ideation. LABORATORY DATA: Reviewed. IMPRESSION: Schizoaffective disorder, bipolar type, mixed with psychotic features, in partial remission. Rest unchanged. PLAN: No change from initial note. Maintain Depakote, lithium, Clozaril along with scheduled Zyprexa for now, but we may stop the Zyprexa in due course. [place] level is awaited. MAN Rox WATT MD DR: SANCHEZ/fredrick JOB#: [id number] / [id number]
[2018-11-17] MEDS: IBUPROFEN 600 MG TABLET. PO PRN (22:10)
--- NOTE | 2018-11-17 22:36 | PDOC ---
Exam Note: Julian Note: Please also refer to the separate dictated note~for this date of service dictated separately.~Patient seen individually. Discussed the patient with Nursing staff reviewed the chart.~Reviewed interim history and current functioning. Reviewed vital signs,~Labs/ Radiology~and current medications noted below. Continue current treatment with the changes noted in the dictated addendum note Assessment: Vital Signs/I&O: Vital Signs Date Time Temp Pulse Resp B/P (MAP) Pulse Ox O2 Delivery O2 Flow Rate FiO2 11/17/18 16:10 98.4 89 17 108/75 (86) 94 11/14/18 15:44 Room Air I & O 11/16/18 11/16/18 11/17/18 14:59 22:59 06:59 Intake Total 600 ml 480 ml 360 ml Balance 600 ml 480 ml 360 ml Current Medications: I have reviewed the current psychotropics carefully including drug interactions. Risk benefit ratio favors no change other than as noted in my dictated progress note. 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
[2018-11-18] MEDS: LEVOTHYROXINE 75 MCG TABLET PO SCH (05:26)
[2018-11-18 06:09] VITALS: BP 146/89
[2018-11-18] MEDS: LITHIUM CARBONATE 300 MG TABLET PO SCH (07:47)
[2018-11-18] MEDS: prednisoLONE ACETATE 1% OPHTH SUSPENSION 5ML BOTTLE. OD SCH (07:47)
[2018-11-18] MEDS: BENZTROPINE MESYLATE 0.5 MG TABLET PO SCH ×2 (07:47→20:48)
[2018-11-18] MEDS: FUROSEMIDE 20 MG TABLET PO SCH (07:47)
[2018-11-18] MEDS: CYANOCOBALAMIN (VITAMIN B-12) 1,000 MCG TABLET. PO SCH (07:48)
[2018-11-18] MEDS: DICLOFENAC SODIUM 1% TOPICAL GEL 100GM TUBE. TP SCH ×4 (07:48→20:50)
[2018-11-18] MEDS: POLYETHYLENE GLYCOL 3350 17 GM PACKET. PO SCH (07:48)
[2018-11-18] MEDS: amLODIPine BESYLATE 5 MG TABLET PO SCH (07:48)
[2018-11-18] MEDS: FLUoxetine HCL 10 MG CAPSULE PO SCH (07:48)
[2018-11-18 15:32] VITALS: BP 95/67
[2018-11-18] MEDS: cloZAPine 100 MG TABLET PO SCH (20:47)
[2018-11-18] MEDS: ATORVASTATIN CALCIUM 20 MG TABLET PO SCH (20:48)
[2018-11-18] MEDS: DIVALPROEX ER 500 MG TAB.ER.24H PO SCH (20:48)
[2018-11-18] MEDS: OLANZapine 5 MG TABLET PO SCH (20:48)
[2018-11-18] MEDS: MIRTAZAPINE 7.5 MG TABLET. PO SCH (20:48)
[2018-11-18] MEDS: LITHIUM CITRATE PO SCH (20:50)
--- NOTE | 2018-11-18 23:00 | PDOC ---
Exam Note: Julian Note: Please also refer to the separate dictated note~for this date of service dictated separately.~Patient seen individually. Discussed the patient with Nursing staff reviewed the chart.~Reviewed interim history and current functioning. Reviewed vital signs,~Labs/ Radiology~and current medications noted below. Continue current treatment with the changes noted in the dictated addendum note Assessment: Vital Signs/I&O: Vital Signs Date Time Temp Pulse Resp B/P (MAP) Pulse Ox O2 Delivery O2 Flow Rate FiO2 11/18/18 15:32 98.3 90 18 95/67 (76) 94 11/18/18 06:09 Room Air I & O 11/17/18 11/17/18 11/18/18 15:00 23:00 07:00 Intake Total 840 ml 360 ml Balance 840 ml 360 ml Current Medications: I have reviewed the current psychotropics carefully including drug interactions. Risk benefit ratio favors no change other than as noted in my dictated progress note. 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
--- NOTE | 2018-11-19 00:19 | PN ---
DATE: 11/17/2018 PSYCHIATRIC PROGRESS NOTE This late entry, 11/17, covers elements not covered in my initial note. SUBJECTIVE: I met with the patient evening of 11/17. The patient slept 6 hours previous night. She has done reasonably well during the day, less anxious. She still has some speech difficulty, but denies racing thoughts. REVIEW OF SYSTEMS: No CV, , pulmonary, eye, ENT system symptoms on review. MENTAL STATUS EXAM: Oriented to herself and situation. Speech is coherent, a little pressured at times. Abstraction fair, computation impaired, language function intact, attention span short. Mood and affect remain somewhat anxious, but much improved, less grandiose. LABORATORY DATA: Reviewed. IMPRESSION: Bipolar 1 disorder, mixed with psychotic features versus schizoaffective disorder, bipolar type, mixed with psychotic features, in partial remission; anxiety disorder, unspecified. PLAN: [place] level is 0.8. Depakote is therapeutic. Maintain Clozaril, Depakote, lithium and rest of the psychotropics as mentioned in my initial note along with Prozac 10 mg a day. MAN Rox WATT MD DR: SANCHEZ/fredrick JOB#: [id number] / [id number]
[2018-11-19 05:55] VITALS: BP 135/82
[2018-11-19] MEDS: LEVOTHYROXINE 75 MCG TABLET PO SCH (06:00)
[2018-11-19] MEDS: POLYETHYLENE GLYCOL 3350 17 GM PACKET. PO SCH (08:39)
[2018-11-19] MEDS: CYANOCOBALAMIN (VITAMIN B-12) 1,000 MCG TABLET. PO SCH (08:40)
[2018-11-19] MEDS: LITHIUM CARBONATE 300 MG TABLET PO SCH (08:40)
[2018-11-19] MEDS: FLUoxetine HCL 10 MG CAPSULE PO SCH (08:40)
[2018-11-19] MEDS: DICLOFENAC SODIUM 1% TOPICAL GEL 100GM TUBE. TP SCH ×4 (08:40→19:30)
[2018-11-19] MEDS: FUROSEMIDE 20 MG TABLET PO SCH (08:40)
[2018-11-19] MEDS: amLODIPine BESYLATE 5 MG TABLET PO SCH (08:40)
[2018-11-19] MEDS: BENZTROPINE MESYLATE 0.5 MG TABLET PO SCH ×2 (08:40→19:31)
[2018-11-19] MEDS: prednisoLONE ACETATE 1% OPHTH SUSPENSION 5ML BOTTLE. OD SCH (09:48)
[2018-11-19 15:53] VITALS: BP 137/87
[2018-11-19] MEDS: cloZAPine 100 MG TABLET PO SCH (19:30)
[2018-11-19] MEDS: DIVALPROEX ER 500 MG TAB.ER.24H PO SCH (19:31)
[2018-11-19] MEDS: LITHIUM CITRATE PO SCH (19:31)
[2018-11-19] MEDS: OLANZapine 5 MG TABLET PO SCH (19:31)
[2018-11-19] MEDS: MIRTAZAPINE 7.5 MG TABLET. PO SCH (19:32)
[2018-11-19] MEDS: ATORVASTATIN CALCIUM 20 MG TABLET PO SCH (19:32)
[2018-11-19] MEDS: ESTRADIOL 0.01% VAGINAL CREAM 42.5GM TUBE. VG SCH (19:33)
--- NOTE | 2018-11-19 22:40 | PDOC ---
Exam Note: Julian Note: Please also refer to the separate dictated note~for this date of service dictated separately.~Patient seen individually. Discussed the patient with Nursing staff reviewed the chart.~Reviewed interim history and current functioning. Reviewed vital signs,~Labs/ Radiology~and current medications noted below. Continue current treatment with the changes noted in the dictated addendum note Assessment: Vital Signs/I&O: Vital Signs Date Time Temp Pulse Resp B/P (MAP) Pulse Ox O2 Delivery O2 Flow Rate FiO2 11/19/18 15:53 97.2 84 18 137/87 (104) 96 11/18/18 06:09 Room Air I & O 11/18/18 11/18/18 11/19/18 15:00 23:00 07:00 Intake Total 1200 ml 900 ml Balance 1200 ml 900 ml Current Medications: I have reviewed the current psychotropics carefully including drug interactions. Risk benefit ratio favors no change other than as noted in my dictated progress note. 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
[2018-11-20] MEDS: LEVOTHYROXINE 75 MCG TABLET PO SCH (05:30)
[2018-11-20 05:50] VITALS: BP 142/81
[2018-11-20] MEDS: BENZTROPINE MESYLATE 0.5 MG TABLET PO SCH ×2 (08:36→19:31)
[2018-11-20] MEDS: amLODIPine BESYLATE 5 MG TABLET PO SCH (08:36)
[2018-11-20] MEDS: POLYETHYLENE GLYCOL 3350 17 GM PACKET. PO SCH (08:36)
[2018-11-20] MEDS: FUROSEMIDE 20 MG TABLET PO SCH (08:36)
[2018-11-20] MEDS: LITHIUM CARBONATE 300 MG TABLET PO SCH (08:36)
[2018-11-20] MEDS: DICLOFENAC SODIUM 1% TOPICAL GEL 100GM TUBE. TP SCH ×5 (08:37→19:32)
[2018-11-20] MEDS: FLUoxetine HCL 10 MG CAPSULE PO SCH (08:37)
[2018-11-20] MEDS: CYANOCOBALAMIN (VITAMIN B-12) 1,000 MCG TABLET. PO SCH (08:37)
[2018-11-20] MEDS: prednisoLONE ACETATE 1% OPHTH SUSPENSION 5ML BOTTLE. OD SCH (08:45)
--- NOTE | 2018-11-20 13:03 | PN ---
DATE: 11/18/2018 PSYCHIATRIC PROGRESS NOTE This is a late entry 11/18/2018 covers elements not covered in my initial note. SUBJECTIVE: I met with the patient in the evening and staffed at a treatment team meeting with the entire team in the morning. Overall, the patient has been fairly cooperative. She still has some pressure of speech, but less so than before. She is sleeping well. REVIEW OF SYSTEMS: No CV, , pulmonary, eye, ENT system symptoms on review. MENTAL STATUS EXAM: Reasonably oriented. Speech is noted, abstraction fair, computation impaired, language function intact, attention span short. Mood and affect remain somewhat anxious, labile, but much improved. No suicidal or homicidal ideation. LABORATORY DATA: Labs reviewed. IMPRESSION: Unchanged from initial note. PLAN: No change from initial note. MAN Rox WATT MD DR: SANCHEZ/fredrick JOB#: [id number] / [id number]
[2018-11-20] MEDS ORDERED: diphenhydrAMINE HCL 25 MG CAPSULE PO PRN (15:30)
[2018-11-20 16:14] VITALS: BP 124/72
--- NOTE | 2018-11-20 19:30 | PN ---
DATE: 11/19/2018 PSYCHIATRIC PROGRESS NOTE This late entry 11/19/2018 covers elements not covered in my initial note. SUBJECTIVE: I met with the patient evening of 11/19/2018. The patient slept 7-1/2 hours previous night. She has been quite appropriate on the unit. She does have some pressure of speech, but it appears more as dysarthria rather other than racing thoughts causing this. REVIEW OF SYSTEMS: No CV, , pulmonary, eye, ENT system symptoms on review. MENTAL STATUS EXAM: Reasonably oriented. Speech as above. Abstraction fair, computation somewhat impaired, language function intact, attention span fair. Mood and affect is improved. She has a very pleasant smile, quite appropriate and seemed to respond positively when I gave her feedback on this. Quite appropriate in her interactions on the unit. LABORATORY DATA: Reviewed. IMPRESSION: Unchanged from initial note. PLAN: No change from initial note. MAN Rox WATT MD DR: SANCHEZ/fredrick JOB#: [id number] / [id number]
[2018-11-20] MEDS: cloZAPine 100 MG TABLET PO SCH (19:31)
[2018-11-20] MEDS: OLANZapine 5 MG TABLET PO SCH (19:32)
[2018-11-20] MEDS: DIVALPROEX ER 500 MG TAB.ER.24H PO SCH (19:32)
[2018-11-20] MEDS: LITHIUM CITRATE PO SCH (19:32)
[2018-11-20] MEDS: MIRTAZAPINE 7.5 MG TABLET. PO SCH (19:32)
[2018-11-20] MEDS: ATORVASTATIN CALCIUM 20 MG TABLET PO SCH (19:33)
--- NOTE | 2018-11-20 22:10 | PDOC ---
Exam Note: Julian Note: Please also refer to the separate dictated note~for this date of service dictated separately.~Patient seen individually. Discussed the patient with Nursing staff reviewed the chart.~Reviewed interim history and current functioning. Reviewed vital signs,~Labs/ Radiology~and current medications noted below. Continue current treatment with the changes noted in the dictated addendum note Assessment: Vital Signs/I&O: Vital Signs Date Time Temp Pulse Resp B/P (MAP) Pulse Ox O2 Delivery O2 Flow Rate FiO2 11/20/18 16:14 98.4 95 17 124/72 (89) 94 11/20/18 05:50 Room Air I & O 11/19/18 11/19/18 11/20/18 14:59 22:59 06:59 Intake Total 1200 ml 480 ml 240 ml Balance 1200 ml 480 ml 240 ml Current Medications: I have reviewed the current psychotropics carefully including drug interactions. Risk benefit ratio favors no change other than as noted in my dictated progress note. 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
[2018-11-21] MEDS: LEVOTHYROXINE 75 MCG TABLET PO SCH (05:49)
[2018-11-21 06:06] VITALS: BP 116/71
[2018-11-21] MEDS: FUROSEMIDE 20 MG TABLET PO SCH (07:49)
[2018-11-21] MEDS: FLUoxetine HCL 10 MG CAPSULE PO SCH (07:49)
[2018-11-21] MEDS: LITHIUM CARBONATE 300 MG TABLET PO SCH (07:49)
[2018-11-21] MEDS: CYANOCOBALAMIN (VITAMIN B-12) 1,000 MCG TABLET. PO SCH (07:49)
[2018-11-21] MEDS: prednisoLONE ACETATE 1% OPHTH SUSPENSION 5ML BOTTLE. OD SCH (07:50)
[2018-11-21] MEDS: amLODIPine BESYLATE 5 MG TABLET PO SCH (07:50)
[2018-11-21] MEDS: POLYETHYLENE GLYCOL 3350 17 GM PACKET. PO SCH (07:50)
[2018-11-21] MEDS: BENZTROPINE MESYLATE 0.5 MG TABLET PO SCH ×2 (07:50→19:31)
[2018-11-21] MEDS: DICLOFENAC SODIUM 1% TOPICAL GEL 100GM TUBE. TP SCH ×4 (07:51→19:33)
[2018-11-21 15:53] VITALS: BP 119/70
[2018-11-21] MEDS: OLANZapine 5 MG TABLET PO SCH (19:31)
[2018-11-21] MEDS: cloZAPine 100 MG TABLET PO SCH (19:31)
[2018-11-21] MEDS: MIRTAZAPINE 7.5 MG TABLET. PO SCH (19:31)
[2018-11-21] MEDS: ATORVASTATIN CALCIUM 20 MG TABLET PO SCH (19:31)
[2018-11-21] MEDS: DIVALPROEX ER 500 MG TAB.ER.24H PO SCH (19:32)
[2018-11-21] MEDS: LITHIUM CITRATE PO SCH (19:33)
--- NOTE | 2018-11-21 22:51 | PDOC ---
Exam Note: Julian Note: Please also refer to the separate dictated note~for this date of service dictated separately.~Patient seen individually. Discussed the patient with Nursing staff reviewed the chart.~Reviewed interim history and current functioning. Reviewed vital signs,~Labs/ Radiology~and current medications noted below. Continue current treatment with the changes noted in the dictated addendum note Assessment: Vital Signs/I&O: Vital Signs Date Time Temp Pulse Resp B/P (MAP) Pulse Ox O2 Delivery O2 Flow Rate FiO2 11/21/18 15:53 98.1 87 20 119/70 (86) 93 11/20/18 05:50 Room Air I & O 11/20/18 11/20/18 11/21/18 15:00 23:00 07:00 Intake Total 840 ml 480 ml Balance 840 ml 480 ml Current Medications: I have reviewed the current psychotropics carefully including drug interactions. Risk benefit ratio favors no change other than as noted in my dictated progress note. 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
[2018-11-21] MEDS: MELATONIN 3 MG TABLET PO PRN (23:07)
[2018-11-22] MEDS: LEVOTHYROXINE 75 MCG TABLET PO SCH (05:29)
[2018-11-22 05:38] VITALS: BP 147/82
[2018-11-22] MEDS: CYANOCOBALAMIN (VITAMIN B-12) 1,000 MCG TABLET. PO SCH (08:17)
[2018-11-22] MEDS: BENZTROPINE MESYLATE 0.5 MG TABLET PO SCH ×2 (08:17→19:35)
[2018-11-22] MEDS: LITHIUM CARBONATE 300 MG TABLET PO SCH (08:17)
[2018-11-22] MEDS: amLODIPine BESYLATE 5 MG TABLET PO SCH (08:17)
[2018-11-22] MEDS: FLUoxetine HCL 10 MG CAPSULE PO SCH (08:17)
[2018-11-22] MEDS: POLYETHYLENE GLYCOL 3350 17 GM PACKET. PO SCH (08:18)
[2018-11-22] MEDS: FUROSEMIDE 20 MG TABLET PO SCH (08:18)
[2018-11-22] MEDS: prednisoLONE ACETATE 1% OPHTH SUSPENSION 5ML BOTTLE. OD SCH (08:19)
[2018-11-22] MEDS: DIVALPROEX 125 MG CAP.SPRINK PO SCH ×2 (08:19→19:36)
[2018-11-22] MEDS: DICLOFENAC SODIUM 1% TOPICAL GEL 100GM TUBE. TP SCH ×4 (08:20→19:37)
[2018-11-22 16:15] VITALS: BP 115/76
[2018-11-22] MEDS: cloZAPine 100 MG TABLET PO SCH (19:35)
[2018-11-22] MEDS: MIRTAZAPINE 7.5 MG TABLET. PO SCH (19:35)
[2018-11-22] MEDS: ATORVASTATIN CALCIUM 20 MG TABLET PO SCH (19:36)
[2018-11-22] MEDS: OLANZapine 5 MG TABLET PO SCH (19:36)
[2018-11-22] MEDS: LITHIUM CITRATE PO SCH (19:37)
--- NOTE | 2018-11-22 21:58 | PN ---
DATE: 11/20/2018 PSYCHIATRIC PROGRESS NOTE This late entry 11/20/2018 covers elements not covered in my initial note. SUBJECTIVE: I met with the patient in the evening. The patient slept 7 hours previous night. She had a good day. Her visited her, brought her some [employer] food, and she was very pleased with this. Nursing staff did her hair. She was very appreciative of this. REVIEW OF SYSTEMS: No CV, , pulmonary, eye, ENT system symptoms on review. MENTAL STATUS EXAM: Reasonably oriented. Speech still has some dysarthria, but she denies racing thoughts. Abstraction fair, computation somewhat impaired, language function intact, attention span short. Mood and affect overall showing improvement. LABORATORY DATA: Reviewed. IMPRESSION: Unchanged from initial note. PLAN: No change from initial note. MAN Rox WATT MD DR: SANCHEZ/fredrick JOB#: [id number] / [id number]
--- NOTE | 2018-11-22 22:32 | PDOC ---
Exam Note: Julian Note: Please also refer to the separate dictated note~for this date of service dictated separately.~Patient seen individually. Discussed the patient with Nursing staff reviewed the chart.~Reviewed interim history and current functioning. Reviewed vital signs,~Labs/ Radiology~and current medications noted below. Continue current treatment with the changes noted in the dictated addendum note Assessment: Vital Signs/I&O: Vital Signs Date Time Temp Pulse Resp B/P (MAP) Pulse Ox O2 Delivery O2 Flow Rate FiO2 11/22/18 16:15 98.4 91 20 115/76 (89) 93 11/22/18 05:38 Room Air I & O 11/21/18 11/21/18 11/22/18 14:59 22:59 06:59 Intake Total 840 ml 240 ml 240 ml Balance 840 ml 240 ml 240 ml Current Medications: Meds: Current Medications Medications (Trade) Dose Ordered Sig/Bora Route PRN Reason Start Time Stop Time Status Last Admin Dose Admin Divalproex Sodium (Depakote Sprinkles) 500 mg BID PO 11/22/18 09:00 11/22/18 19:36 I have reviewed the current psychotropics carefully including drug interactions. Risk benefit ratio favors no change other than as noted in my dictated progress note. 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
--- NOTE | 2018-11-23 05:13 | PN ---
DATE: 11/21/2018 PSYCHIATRIC PROGRESS NOTE This is a late entry for date of service 11/21/2018. SUBJECTIVE: Overall, the patient has been doing reasonably well. She slept well previous night, had one episode in the dining room when she was agitated when she asked the clinical nursing instructor for a sugar packet and did not quite get it in time. Rest of the time, she has been appropriate. REVIEW OF SYSTEMS: No CV, , pulmonary, eye, ENT system symptoms on review. MENTAL STATUS EXAM: Reasonably oriented. Speech is a little pressured at times, but again without racing thoughts. Abstraction fair, computation impaired, language function intact. Memory is reasonable. Mood and affect appears improved. LABORATORY DATA: Labs reviewed. Valproic acid level therapeutic. IMPRESSION: Unchanged from initial note. PLAN: The patient is requesting the Depakote ER be changed to the Sprinkles. She is currently on Depakote ER 1000 mg at bedtime, we will change to Sprinkles 500 mg b.i.d. Check CBC, CMP, valproic acid level in 3 days. Rest unchanged for now. KIERSTEN WATT MD DR: SANCHEZ/fredrick JOB#: [id number] / [id number]
[2018-11-23 05:45] VITALS: BP 112/71
[2018-11-23] MEDS: LEVOTHYROXINE 75 MCG TABLET PO SCH (06:15)
[2018-11-23 06:54] LABS: BASO % 0 % (0-3); EOS # 0.3 x10^3/uL (0.0-0.7); EOS % 3 % (0-3); HEMATOCRIT 37.6 % (36.0-47.0); HEMOGLOBIN 12.1 g/dL (12.0-15.5); LYMPH # 1.7 x10^3/uL (1.0-4.8); LYMPH % 23 % (24-48); MEAN CORPUSCULAR HEMOGLOBIN 30 pg (25-35); MEAN CORPUSCULAR HGB CONC 32 g/dL (31-37); MEAN CORPUSCULAR VOLUME 94 fL (79-100); MONO # 0.8 x10^3/uL (0.0-1.1); MONO % 10 % (0-9); NEUT # 4.8 x10^3uL (1.8-7.7); NEUT % 63 % (31-73); PLATELET COUNT 201 x10^3/uL (140-400); RED CELL DISTRIBUTION WIDTH 14.6 % (11.5-14.5); WHITE BLOOD COUNT 7.6 x10^3/uL (4.0-11.0)
[2018-11-23 07:12] LABS: ALBUMIN 3.2 g/dL (3.4-5.0); ALBUMIN/GLOBULIN RATIO 0.8 (1.0-1.7); CALCIUM 9.9 mg/dL (8.5-10.1); CREATININE 0.9 mg/dL (0.6-1.0); GFR 62.1; POTASSIUM 4.2 mmol/L (3.5-5.1); TOTAL BILIRUBIN 0.3 mg/dL (0.2-1.0); TOTAL PROTEIN 7.3 g/dL (6.4-8.2)
[2018-11-23] MEDS: prednisoLONE ACETATE 1% OPHTH SUSPENSION 5ML BOTTLE. OD SCH (07:52)
[2018-11-23 07:53] VITALS: BP 112/71
[2018-11-23] MEDS: LITHIUM CARBONATE 300 MG TABLET PO SCH (07:53)
[2018-11-23] MEDS: BENZTROPINE MESYLATE 0.5 MG TABLET PO SCH (07:53)
[2018-11-23] MEDS: amLODIPine BESYLATE 5 MG TABLET PO SCH (07:53)
[2018-11-23] MEDS: FLUoxetine HCL 10 MG CAPSULE PO SCH (07:54)
[2018-11-23] MEDS: POLYETHYLENE GLYCOL 3350 17 GM PACKET. PO SCH (07:54)
[2018-11-23] MEDS: DIVALPROEX 125 MG CAP.SPRINK PO SCH (07:54)
[2018-11-23] MEDS: CYANOCOBALAMIN (VITAMIN B-12) 1,000 MCG TABLET. PO SCH (07:54)
[2018-11-23] MEDS: FUROSEMIDE 20 MG TABLET PO SCH (07:54)
[2018-11-23] MEDS: DICLOFENAC SODIUM 1% TOPICAL GEL 100GM TUBE. TP SCH ×2 (07:55→12:47)
[2018-11-23] MEDS ORDERED: DIPH25TA24 PO (12:16)
[2018-11-23] MEDS ORDERED: DICL100G18 TP (12:21)
[2018-11-23] MEDS ORDERED: METH29OI TP (12:23)
[2018-11-23] MEDS ORDERED: DIVA125C2 PO (12:25)
[2018-11-23] MEDS: traMADol 50 MG TABLET PO PRN (14:36)
--- NOTE | 2018-11-23 22:40 | PDOC ---
Exam Note: Julian Note: Please also refer to the separate dictated note~for this date of service dictated separately.~Patient seen individually. Discussed the patient with Nursing staff reviewed the chart.~Reviewed interim history and current functioning. Reviewed vital signs,~Labs/ Radiology~and current medications noted below. Continue current treatment with the changes noted in the dictated addendum note Assessment: Vital Signs/I&O: Vital Signs Date Time Temp Pulse Resp B/P (MAP) Pulse Ox O2 Delivery O2 Flow Rate FiO2 11/23/18 14:36 18 11/23/18 07:53 85 112/71 11/23/18 05:45 97.5 98 11/22/18 05:38 Room Air I & O 11/22/18 11/22/18 11/23/18 14:59 22:59 06:59 Intake Total 1080 ml 240 ml 240 ml Balance 1080 ml 240 ml 240 ml Labs: Laboratory Tests Test 11/23/18 06:25 White Blood Count 7.6 x10^3/uL (4.0-11.0) Red Blood Count 4.00 x10^6/uL (3.50-5.40) Hemoglobin 12.1 g/dL (12.0-15.5) Hematocrit 37.6 % (36.0-47.0) Mean Corpuscular Volume 94 fL (79-100) Mean Corpuscular Hemoglobin 30 pg (25-35) Mean Corpuscular Hemoglobin Concent 32 g/dL (31-37) Red Cell Distribution Width 14.6 % (11.5-14.5) H Platelet Count 201 x10^3/uL (140-400) Neutrophils (%) (Auto) 63 % (31-73) Lymphocytes (%) (Auto) 23 % (24-48) L Monocytes (%) (Auto) 10 % (0-9) H Eosinophils (%) (Auto) 3 % (0-3) Basophils (%) (Auto) 0 % (0-3) Neutrophils # (Auto) 4.8 x10^3uL (1.8-7.7) Lymphocytes # (Auto) 1.7 x10^3/uL (1.0-4.8) Monocytes # (Auto) 0.8 x10^3/uL (0.0-1.1) Eosinophils # (Auto) 0.3 x10^3/uL (0.0-0.7) Basophils # (Auto) 0.0 x10^3/uL (0.0-0.2) Sodium Level 143 mmol/L (136-145) Potassium Level 4.2 mmol/L (3.5-5.1) Chloride Level 108 mmol/L (98-107) H Carbon Dioxide Level 29 mmol/L (21-32) Anion Gap 6 (6-14) Blood Urea Nitrogen 15 mg/dL (7-20) Creatinine 0.9 mg/dL (0.6-1.0) Estimated GFR (Cockcroft-Gault) 62.1 BUN/Creatinine Ratio 17 (6-20) Glucose Level 107 mg/dL (70-99) H Calcium Level 9.9 mg/dL (8.5-10.1) Total Bilirubin 0.3 mg/dL (0.2-1.0) Aspartate Amino Transferase (AST) 16 U/L (15-37) Alanine Aminotransferase (ALT) 13 U/L (14-59) L Alkaline Phosphatase 92 U/L (46-116) Total Protein 7.3 g/dL (6.4-8.2) Albumin 3.2 g/dL (3.4-5.0) L Albumin/Globulin Ratio 0.8 (1.0-1.7) L Current Medications: I have reviewed the current psychotropics carefully including drug interactions. Risk benefit ratio favors no change other than as noted in my dictated progress note. 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
--- NOTE | 2018-11-23 23:07 | PN ---
DATE: 11/22/2018 PSYCHIATRIC PROGRESS NOTE This is a late entry 11/22/2018, covers the elements not covered in my initial note. SUBJECTIVE: I met with the patient evening of 11/22/2018. The patient slept 5-1/4 hours previous night. She is somewhat resistive with meds the previous evening, shuffling in her gait, somewhat attention seeking during the day 11/22/2018 per nursing staff, slightly hypomanic, but the patient denies this. The patient is fixated on fingernail luxembourger and staff assisted with this. REVIEW OF SYSTEMS: No CV, , pulmonary, eye, ENT system symptoms on review, does complain of some word finding problems. MENTAL STATUS EXAM: Reasonably oriented. Speech as above. Abstraction fair, computation impaired, language function intact, attention span short. Mood and affect is improved. LABORATORY DATA: Reviewed. IMPRESSION: Unchanged from initial note. PLAN: No change from initial note. [place] level 0.8. Valproic acid level is 62. Absolute neutrophil count is unremarkable on the Clozaril. Continue unchanged. MAN Rox WATT MD DR: SANCHEZ/fredrick JOB#: [id number] / [id number]
--- NOTE | 2018-11-24 10:49 | DS ---
DATE OF DISCHARGE: 11/23/2018 ADDENDUM At the time of discharge on 11/23/2018, the patient was on 2 antipsychotics; Zyprexa 5 mg at bedtime and Clozaril 350 mg p.o. at bedtime. This was clinically indicated at the time of discharge, however, looking forward once the patient stabilizes back at the longterm perhaps starting in 30 days, the Zyprexa could be reduced from 5 mg at bedtime down to 2.5 mg at bedtime for about 60 days and then discontinued. If psychotic symptoms resurface, the Clozaril may be increased gradually to compensate for this period. KIERSTEN WATT MD DR: SANCHEZ/fredrick JOB#: [id number] / [id number]
--- NOTE | 2018-11-25 01:00 | DS ---
DATE OF DISCHARGE: 11/23/2018 DISCHARGE SUMMARY/PSYCHIATRIC PROGRESS NOTE This late entry of 11/23/2018 covers elements not covered in my initial note. REASON FOR ADMISSION: Please refer to the admission history for details. Briefly, the patient is a 68-year-old female referred back to us from [facility] on account of increased sedation, mental status changes, decreased responsiveness, marked lethargy, poor attention, concentration, appearing quite psychotic. She had failed outpatient psychiatric interventions. SIGNIFICANT FINDINGS AND CLINICAL COURSE: Following admission, the patient was seen daily individually by myself from a psychiatric standpoint, medical followup per Dr. Jacome. The patient was restarted on her psychotropics and these were adjusted. She seemed to respond to a combination of Clozaril 350 mg at bedtime, lithium carbonate 300 mg daily and lithium citrate 6.72 mEq at bedtime with a level of 0.8. She was also on Zyprexa 5 mg at bedtime, Remeron 7.5 mg at bedtime, Depakote 1000 mg at bedtime with a level at 62 and Prozac 10 mg a day. REVIEW OF SYSTEMS: Prior to discharge on 11/23/2018, no CV, , pulmonary, eye, ENT system symptoms on review. She does complain of some word finding problems. MENTAL STATUS EXAM: Oriented to herself and situation. Speech is less pressured. Abstraction fair, computation impaired, language function intact, attention span fair. Mood and affect generally improved. LABORATORY DATA: Reviewed. FINAL DIAGNOSES: Bipolar 1 disorder, mixed with psychotic features, in partial remission; schizoaffective disorder, bipolar type, mixed with psychotic features, in partial remission; cognitive disorder, unspecified; anxiety disorder, unspecified; impulse control disorder, unspecified. Rest unchanged from admission. DISCHARGE MEDICATIONS: Please refer to the MRAD. The patient will need her weekly CBC and absolute neutrophil count to monitor, Clozaril and monthly comprehensive metabolic profile and valproic acid level and lithium levels to be monitored frequently along with TSH. Outpatient psychiatric and medical followup at the [facility]. MAN Rox WATT MD DR: SANCHEZ/fredrick JOB#: [id number] / [id number]
== END 2018-11-23 15:18 | DRG 885 ==
LOC: GEROPSY 20:45
PROVIDERS: ADMIT Psychiatry & Neurology Psychiatry; ATTEND Psychiatry & Neurology Psychiatry
DX: F25.0 Schizoaffective disorder, bipolar type (principal); E43 Unspecified severe protein-calorie malnutrition; R47.01 Aphasia; E03.9 Hypothyroidism, unspecified; E78.5 Hyperlipidemia, unspecified; E83.52 Hypercalcemia; F02.80 Dementia in other diseases classified elsewhere, unspecified severity, without behavioral disturbance, psychotic disturbance, mood disturbance, and anxiety; F41.9 Anxiety disorder, unspecified; F63.9 Impulse disorder, unspecified; G47.00 Insomnia, unspecified; G47.33 Obstructive sleep apnea (adult) (pediatric); I10 Essential (primary) hypertension; Z87.440 Personal history of urinary (tract) infections; Z79.899 Other long term (current) drug therapy; Z88.8 Allergy status to other drugs, medicaments and biological substances; Z68.33 Body mass index [BMI] 33.0-33.9, adult
CPT/HCPCS: 36415; 80053; 80061; 80164; 80178; 81001; 82306; 83036; 83540; 83550; 83735; 83970; 84100; 84436; 84443; 84480; 85025; 86592; 87086; 97110; 97116; 97530

== ENCOUNTER 2020-03-21 18:15 | Inpatient (IN) | payer MEDICARE ==
[~2020-03-21] VITALS: Ht 154.9 cm; Wt 71.1 kg
--- NOTE | 2020-03-21 18:00 | NUR ---
Admission Note with Justification for Admission to [facility] Patient admitted to [facility] for protective oversight for emergency stabilization of acute psychiatric crisis. Pt admitted from: [facility] Facility-[facility] [place] Mode of arrival: WC Accompanied By: [facility] Staff Precipitating behaviors that initiated intake and admission: Manic, digging at hair and face, anxious, rambles, upper and lower body movements. Description of failure of out patient attempts at stabilization in previous setting list behavior and medication trials: multiple medication adjustments and weekly visits from analytical chemist. Behaviors and assessment findings upon admission: Pt is compliant, calm and denies hallucinations. She is compliant with her assessment. Pt appears to have tardive dykinesia AEB continuous upper and lower body movements, pill rolling, facial movements trouble finding her words, and tongue thrusting. Pt has multiple scabs on her face and scalp as well as a bruise above her left eye and a small hematoma at her widows peak on her forehead. Plan: Admit for protective oversight for adjustment and stabilization of medications, behaviors and mood. Intense treatment regimen including groups, medication adjustments, therapy, consistent regimen for ADL's, self care, and sleep hygiene. Daily monitoring by Inpatient staff, Psychiatry, and Medical Physician.
[~2020-03-21 18:15] MED LIST changes: +AMAN100T PO; +CYAN-25 PO; -CYAN10005 PO; +DICL100G18 TP; +DIPH25TA24 PO; +DIVA125C2 PO; +FLUO10CA15 PO; +HALO0.5T PO; +HYDR25CA PO; +IBUP800T19 PO; +LURA40TA PO; -MAGN2400 PO; +MAGN24003 PO; -MELA3TAB2 PO; +MELA3TAB4 PO; +MEMA10TA PO; +METH28OI2 TP; -METH29OI TP; +MIRT-37 PO; -MIRT15TA PO; -OLAN5TAB5 PO; +OLAN5TAB99 PO; -RISP1TAB3 PO; +RISP1TAB88 PO; +SODI3.5O3 EACHEYE; +TRAM50TA PO
[2020-03-21 18:23] VITALS: BP 115/63
[2020-03-21] MEDS ORDERED: METHYL SALICYLATE/MENTHOL TOPICAL OINTMENT 57GM TUBE. TP PRN (18:45)
[2020-03-21] MEDS ORDERED: MAGNESIUM HYDROXIDE 2,400 MG/30 ML ORAL.SUSP. PO PRN (18:45)
[2020-03-21] MEDS ORDERED: MAG HYDROX/AL HYDROX/SIMETH 30 ML ORAL.SUSP PO PRN (18:45)
[2020-03-21] MEDS ORDERED: ACETAMINOPHEN 325 MG TABLET PO PRN (18:45)
--- NOTE | 2020-03-21 20:39 | PDOC ---
Exam Note: Julian Note: Please also refer to the separate dictated note~for this date of service dictated separately.~Patient seen individually. Discussed the patient with Nursing staff reviewed the chart.~Reviewed interim history and current functioning. Reviewed vital signs,~Labs/ Radiology~and current medications noted below. Continue current treatment with the changes noted in the dictated addendum note Assessment: Vital Signs/I&O: Vital Signs Date Time Temp Pulse Resp B/P (MAP) Pulse Ox O2 Delivery O2 Flow Rate FiO2 03/21/20 18:23 98.5 84 22 115/63 (80) 98 Room Air Current Medications: I have reviewed the current psychotropics carefully including drug interactions. Risk benefit ratio favors no change other than as noted in my dictated progress note. Diagnosis: Problems: (1) Bipolar 1 disorder, manic, moderate (2) Anxiety disorder (3) Impulse control disorder (4) Mild cognitive impairment (5) Bipolar affective, mixed, sev w/ psych KIERSTEN WATT MD Mar 21, 2020 20:39
[2020-03-21] MEDS ORDERED: HALOPERIDOL 0.5 MG TABLET PO PRN (22:30)
--- NOTE | 2020-03-21 23:03 | NUR ---
PHARMACY CONSULT REGARDING TARDIVE DYSKINESIA; Four of the patients medications list tardive dyskinesia as a possible adverse effect, Benztropine, Haloperidol, Latuda, and Memantine. There is also a possible interaction between Amantadine and Memantine causing increased [employer] SALES CONSULTANT side effects.
[2020-03-22] MEDS ORDERED: ACETAMINOPHEN 325 MG TABLET PO PRN ×2 (01:45→18:00)
--- NOTE | 2020-03-22 03:33 | NUR ---
Last evening pt was tired and was resting in bed she has expressive aphasia and could not communicate well. She was cooperative has had no behaviors and has been sleeping well.
[2020-03-22 05:36] VITALS: BP 150/74
[2020-03-22 06:42] LABS: BASO % 1 % (0-3); EOS # 0.2 x10^3/uL (0.0-0.7); EOS % 2 % (0-3); HEMATOCRIT 35.1 % (36.0-47.0); HEMOGLOBIN 11.2 g/dL (12.0-15.5); LYMPH % 28 % (24-48); MEAN CORPUSCULAR HEMOGLOBIN 27 pg (25-35); MEAN CORPUSCULAR HGB CONC 32 g/dL (31-37); MEAN CORPUSCULAR VOLUME 85 fL (79-100); MONO # 0.6 x10^3/uL (0.0-1.1); MONO % 9 % (0-9); NEUT # 4.3 x10^3uL (1.8-7.7); NEUT % 60 % (31-73); PLATELET COUNT 285 x10^3/uL (140-400); RED BLOOD COUNT 4.12 x10^6/uL (3.50-5.40); RED CELL DISTRIBUTION WIDTH 14.1 % (11.5-14.5); WHITE BLOOD COUNT 7.1 x10^3/uL (4.0-11.0)
[2020-03-22 06:56] LABS: ALBUMIN/GLOBULIN RATIO 0.7 (1.0-1.7); CALCIUM 10.4 mg/dL (8.5-10.1); CREATININE 0.9 mg/dL (0.6-1.0); GFR 61.7; MAGNESIUM 2.1 mg/dL (1.8-2.4); POTASSIUM 3.8 mmol/L (3.5-5.1); TOTAL BILIRUBIN 0.5 mg/dL (0.2-1.0); TOTAL PROTEIN 7.4 g/dL (6.4-8.2)
[2020-03-22] MEDS: AMANTADINE HCL 100 MG PO SCH (08:31)
[2020-03-22] MEDS: hydrOXYzine PAMOATE 25 MG CAPSULE PO SCH ×3 (08:32→20:38)
[2020-03-22] MEDS: MEMANTINE 10 MG TABLET. PO SCH ×2 (08:32→20:38)
[2020-03-22] MEDS: BENZTROPINE MESYLATE 1 MG TABLET PO SCH ×2 (08:32→20:38)
--- NOTE | 2020-03-22 10:15 | NUR ---
NURSING NOTE PT WAS IN BED THIS AM UPON ASSESSMENT AND MEDICATION ADMINISTRATION. PT WAS ABLE TO STATE HER NAME AND . PT NEEDS EXTRA ENCOURAGEMENT TO FOLLOW COMMANDS SUCH SIT UP, TAKE YOU MEDICATION, ETC. PT DID FINALLY TAKE HER MEDICATIONS WITH ENCOURAGEMENT. PT IS VERY RESTLESS, CONSTANTLY MOVING HER ARMS, PICKING AT HER SKIN ON HER FACE, RUBBING HER HEAD AND HAIR. PT DOES NEED HELP WITH HER MEALS. WILL CONTINUE TO MONITOR. WANDA ALLISON.
--- NOTE | 2020-03-22 12:45 | NUR ---
Attempted to meet and complete Activity Therapy Assessment at 1245 on 03/22. Pt didn't speak during the attempted Activity Therapy Assessment. Pt constantly dug fingers threw hair and on scalp. Pt also constantly rubbed fingers and nails against her eyebrows. Pt only said a couple of words which were her 's name and mentioned AT's finger nails. Pt was unable to elaborate any of the discussion.
[2020-03-22 16:24] VITALS: BP 108/49
[2020-03-22] MEDS ORDERED: LURASIDONE 40 MG TABLET. PO SCH (17:00)
[2020-03-22 17:09] LABS: THYROXINE 8.4 ug/dL (4.5-12.0)
[2020-03-22] MEDS ORDERED: POLYVINYL ALCOHOL/POVIDONE/PF OPHTH SOLUTION DROPERETTE. OU PRN (18:00)
[2020-03-22] MEDS ORDERED: DICLOFENAC SODIUM 1% TOPICAL GEL 100GM TUBE. TP PRN (18:00)
[2020-03-22] MEDS ORDERED: MAG HYDROX/AL HYDROX/SIMETH 30 ML ORAL.SUSP PO PRN (18:45)
[2020-03-22] MEDS ORDERED: MAGNESIUM HYDROXIDE 2,400 MG/30 ML ORAL.SUSP. PO PRN (18:45)
[2020-03-22 19:47] LABS: THYROID STIM HORMONE (TSH) 0.974 uIU/mL (0.358-3.740)
--- NOTE | 2020-03-22 20:36 | PDOC ---
Exam Note: Jluian Note: Please also refer to the separate dictated note~for this date of service dictated separately.~Patient seen individually. Discussed the patient with Nursing staff reviewed the chart.~Reviewed interim history and current functioning. Reviewed vital signs,~Labs/ Radiology~and current medications noted below. Continue current treatment with the changes noted in the dictated addendum note Assessment: Vital Signs/I&O: Vital Signs Date Time Temp Pulse Resp B/P (MAP) Pulse Ox O2 Delivery O2 Flow Rate FiO2 03/22/20 16:24 98.3 75 20 108/49 (68) 94 03/21/20 18:23 Room Air I & O 03/21/20 03/21/20 03/22/20 14:59 22:59 06:59 Intake Total 180 ml Balance 180 ml Labs: Laboratory Tests Test 03/22/20 06:25 White Blood Count 7.1 x10^3/uL (4.0-11.0) Red Blood Count 4.12 x10^6/uL (3.50-5.40) Hemoglobin 11.2 g/dL (12.0-15.5) L Hematocrit 35.1 % (36.0-47.0) L Mean Corpuscular Volume 85 fL (79-100) Mean Corpuscular Hemoglobin 27 pg (25-35) Mean Corpuscular Hemoglobin Concent 32 g/dL (31-37) Red Cell Distribution Width 14.1 % (11.5-14.5) Platelet Count 285 x10^3/uL (140-400) Neutrophils (%) (Auto) 60 % (31-73) Lymphocytes (%) (Auto) 28 % (24-48) Monocytes (%) (Auto) 9 % (0-9) Eosinophils (%) (Auto) 2 % (0-3) Basophils (%) (Auto) 1 % (0-3) Neutrophils # (Auto) 4.3 x10^3uL (1.8-7.7) Lymphocytes # (Auto) 2.0 x10^3/uL (1.0-4.8) Monocytes # (Auto) 0.6 x10^3/uL (0.0-1.1) Eosinophils # (Auto) 0.2 x10^3/uL (0.0-0.7) Basophils # (Auto) 0.0 x10^3/uL (0.0-0.2) Sodium Level 139 mmol/L (136-145) Potassium Level 3.8 mmol/L (3.5-5.1) Chloride Level 104 mmol/L (98-107) Carbon Dioxide Level 25 mmol/L (21-32) Anion Gap 10 (6-14) Blood Urea Nitrogen 9 mg/dL (7-20) Creatinine 0.9 mg/dL (0.6-1.0) Estimated GFR (Cockcroft-Gault) 61.7 BUN/Creatinine Ratio 10 (6-20) Glucose Level 100 mg/dL (70-99) H Calcium Level 10.4 mg/dL (8.5-10.1) H Magnesium Level 2.1 mg/dL (1.8-2.4) Iron Level 41 ug/dL (50-170) L Total Iron Binding Capacity 220 ug/dL (250-450) L Iron Saturation 19 % (15-34) Total Bilirubin 0.5 mg/dL (0.2-1.0) Aspartate Amino Transferase (AST) 26 U/L (15-37) Alanine Aminotransferase (ALT) 32 U/L (14-59) Alkaline Phosphatase 109 U/L (46-116) Total Protein 7.4 g/dL (6.4-8.2) Albumin 3.0 g/dL (3.4-5.0) L Albumin/Globulin Ratio 0.7 (1.0-1.7) L Triglycerides Level 112 mg/dL (0-150) Cholesterol Level 157 mg/dL (0-200) LDL Cholesterol, Calculated 96 mg/dL (0-100) VLDL Cholesterol, Calculated 22 mg/dL (0-40) Non-HDL Cholesterol Calculated 118 mg/dL (0-129) HDL Cholesterol 39 mg/dL (40-60) L Cholesterol/HDL Ratio 4.0 Vitamin B12 Level > 2000 pg/mL (247-911) H 25-Hydroxy Vitamin D Total 28.2 ng/mL (30-100) L Thyroid Stimulating Hormone (TSH) 0.974 uIU/mL (0.358-3.740) Thyroxine (T4) 8.4 ug/dL (4.5-12.0) Total Triiodothyronine (TT3) 81 ng/dL (71-180) Treponema pallidum Antibody Nonreactive (Nonreactive) Current Medications: Meds: Current Medications Medications (Trade) Dose Ordered Sig/Bora Route PRN Reason Start Time Stop Time Status Last Admin Dose Admin Benztropine Mesylate (Cogentin) 1 mg BID PO 03/22/20 09:00 03/22/20 08:32 Hydroxyzine Pamoate (Vistaril) 25 mg TID PO 03/22/20 09:00 03/22/20 13:27 Lurasidone HCl (Latuda) 40 mg DAILYWSUP PO 03/22/20 17:00 03/22/20 17:03 DC 03/22/20 16:45 Memantine (Namenda) 10 mg BID PO 03/22/20 09:00 03/22/20 08:32 Amantadine HCl (Symmetrel) 100 mg DAILY PO 03/22/20 09:00 03/22/20 08:31 I have reviewed the current psychotropics carefully including drug interactions. Risk benefit ratio favors no change other than as noted in my dictated progress note. Diagnosis: Problems: (1) Anxiety disorder (2) Bipolar affective, mixed, sev w/ psych (3) Impulse control disorder (4) Mild cognitive impairment KIERSTEN WATT MD Mar 22, 2020 20:36
[2020-03-22] MEDS: SODIUM CHLORIDE 5% OPHTH OINTMENT 3.5GM TUBE. OU SCH (20:40)
[2020-03-22] MEDS: MIRTAZAPINE 7.5 MG TABLET. PO SCH (20:40)
[2020-03-22] MEDS: ATORVASTATIN CALCIUM 20 MG TABLET PO SCH (20:40)
[2020-03-22] MEDS: LEVOTHYROXINE 50 MCG TABLET PO SCH (20:40)
[2020-03-22] MEDS: traZODone 50 MG TABLET. PO SCH (20:40)
[2020-03-22] MEDS: ESTRADIOL 0.01% VAGINAL CREAM 42.5GM TUBE. VG SCH (20:41)
--- NOTE | 2020-03-22 21:44 | HP ---
ADMIT DATE: 03/21/2020 PSYCHIATRIC ADMISSION HISTORY AND EVALUATION This late entry date of service 03/21 covers elements not covered in my initial note. IDENTIFYING DATA: The patient is a 70-year-old female who returns back to us from [facility], referred by her primary care physician/psychiatrist on account of significant manic symptoms. She has been digging at her hair and face. She has been agitated, having marked insomnia, psychotic. She also has involuntary movements of her upper body and upper arms. She has big bruising around her face where she has been digging at herself and eyelids. Overall, she has failed outpatient psychiatric interventions for her diagnosis of schizoaffective disorder, bipolar type and has been referred for inpatient psychiatric stabilization. CHIEF COMPLAINT: "No." I have discussed the patient with nursing staff, previously reviewed with Chiara Lopez, hse coordinator and information from alf was reviewed. HISTORY OF PRESENT ILLNESS: The patient has a long history of schizoaffective disorder, bipolar type. She has been residing at [facility] level 2 facility, recently getting extremely psychotic, manic with marked mood swings and behaviors as noted above. She has had significant mood lability, marked insomnia. No active suicidal or homicidal ideation. She continues to have significant mood swings. PAST PSYCHIATRIC HISTORY: As above. The patient has been hospitalized here on several occasions in the past. MEDICAL HISTORY: Hypertension, hyperlipidemia, hypothyroidism. ALLERGIES: LITHIUM. There is DOCUMENTED ALLERGY TO BENZODIAZEPINE, but during her last hospitalization here, we had inquired into it. It appeared the only side effect was that she had been overly sedated consequent to the dosage given at the time. CODE STATUS: Full code. ACCU-CHEKS: None. DIET: Regular. Takes medications whole. Ambulates, wheelchair with 2-person assist. CURRENT PSYCHOTROPICS: Latuda 40 mg a day, Cogentin 1 mg b.i.d., Haldol p.r.n., Namenda 10 mg b.i.d., Remeron 7.5 mg at bedtime, trazodone 12.5 mg at bedtime. FAMILY HISTORY: Noncontributory. SOCIAL HISTORY: No history of alcohol, drug abuse, physical, sexual or elder abuse. She is not known to be a perpetrator. REVIEW OF SYSTEMS: Ambulation impaired. No CV, , pulmonary, eye, ENT system symptoms on review. Reliability poor. MENTAL STATUS EXAMINATION: The patient is not very verbal, quite withdrawn. I met with her individually evening of 03/21. She is oriented to herself, perhaps to situation. Insight limited, judgment marginal, language function intact, attention span short. She is psychotic, paranoid. Mood and affect remains withdrawn. LABORATORY DATA: Reviewed. IMPRESSION: Schizoaffective disorder, bipolar type, mixed with psychotic features; anxiety disorder, unspecified; impulse control disorder, unspecified; obsessive-compulsive disorder. Rest as above. Possible tardive dyskinesia. PLAN: Admit to Geropsychiatry Unit at [facility]. I will see the patient daily individually from a psychiatric standpoint. Medical followup per Dr. Jacome/Dr. Quiñones. Continue current psychotropics. Consider valbenazine for her possible tardive dyskinesia. It is unclear whether this is available at our facility and I have requested a pharmacy consult to clarify. Consider Depakote as a mood stabilizer. May consider increasing Latuda, further adjustments as clinically indicated. ESTIMATED LENGTH OF STAY: 10-12 days. DISPOSITION PLAN: Back to alf when stable. KIERSTEN WATT MD DR: SANCHEZ/fredrick JOB#: [id number] / [id number]
[2020-03-22 22:44] LABS: BILIRUBIN,URINE NEG (NEG); CLARITY,URINE CLEAR; COLOR,URINE YELLOW; GLUCOSE,URINE NEG (NEG); NITRITE,URINE NEG (NEG); RBC,URINE RARE /HPF (0-2); UROBILINOGEN,URINE 0.2 mg/dL (0.2 mg/dL); WBC,URINE OCC /HPF (0-4)
[2020-03-22 22:45] LABS: BACTERIA,URINE 0 /HPF (0-FEW); SQUAMOUS EPITHELIAL CELL,UR MOD /LPF
--- NOTE | 2020-03-22 23:52 | NUR ---
Pt located in her bed this evening. Pt very restless, continually running her fingers through her hair. Pt compliant with whole medications with encouragement. Yells out intermittently.
[2020-03-23 01:11] LABS: HEMOGLOBIN A1C 5.5 % (4.8-5.6)
[2020-03-23 05:57] VITALS: BP 123/52
--- NOTE | 2020-03-23 07:19 | PDOC ---
Exam Note: Julian Note: This note is a late entry for 03/22/2020 covers elements not covered in my initial note. Subjective: The patient was seen face to face in the evening of 03/22/2020 with Bonnie MUÑOZ. Discussed with nursing staff, reviewed the chart. The patient slept 8-1/2 hours previous night. She remains withdrawn. We have requested a pharmacy consult for seeing what is on the formulary for her, early tardive dyskinesia. I will specifically insist on Valbenazine but we will have to clarify with the pharmacist. She has been withdrawn, spending much time in her room, aware of her date of . She has been repeatedly rubbing her eyebrows and face and braiding them, pulling out her hair, eyebrows and eyelids are swollen, restless and anxious. I tried to call the pharmacist late in the evening but there was no response to the phone. We will check again later whether Valbenazine can be obtained. Review of Systems: No CV, , pulmonary, eye, ENT system symptoms on review. Reliability poor. Mental Status Exam: Oriented to herself and situation. Insight and judgment, recent memory is impaired. Language function is intact. Mood and affect is withdrawn, anxious, labile, quite paranoid, suspicious. Attention span is short. Laboratory Data: Reviewed. Impression: Tardive dyskinesia. Schizoaffective disorder bipolar type mixed with psychotic features. OCD. Anxiety disorder unspecified. Impulse control disorder unspecified. Plan: Continue current psychotropics. Clarify Valbenazine with pharmacist if this can be obtained. Consider Clozaril for her psychotic symptoms. Assessment: Vital Signs/I&O: Vital Signs Date Time Temp Pulse Resp B/P (MAP) Pulse Ox O2 Delivery O2 Flow Rate FiO2 03/23/20 05:57 97.7 69 18 123/52 (75) 94 03/21/20 18:23 Room Air I & O 03/22/20 03/22/20 03/23/20 15:00 23:00 07:00 Intake Total 220 ml 600 ml Output Total 1000 ml Balance 220 ml -400 ml Labs: Laboratory Tests Test 03/22/20 22:09 Urine Collection Type Unknown Urine Color Yellow Urine Clarity Clear Urine pH 7.0 Urine Specific [place] 1.015 Urine Protein Neg (NEG-TRACE) Urine Glucose (UA) Neg mg/dL (NEG) Urine Ketones (Stick) Neg mg/dL (NEG) Urine Blood Neg (NEG) Urine Nitrite Neg (NEG) Urine Bilirubin Neg (NEG) Urine Urobilinogen Dipstick 0.2 mg/dL (0.2 mg/dL) Urine Leukocyte Esterase Neg (NEG) Urine RBC Rare /HPF (0-2) Urine WBC Occ /HPF (0-4) Urine Squamous Epithelial Cells Mod /LPF Urine Bacteria 0 /HPF (0-FEW) Current Medications: Meds: Current Medications Medications (Trade) Dose Ordered Sig/Bora Route PRN Reason Start Time Stop Time Status Last Admin Dose Admin Benztropine Mesylate (Cogentin) 1 mg BID PO 03/22/20 09:00 03/22/20 20:38 Hydroxyzine Pamoate (Vistaril) 25 mg TID PO 03/22/20 09:00 03/22/20 20:38 Lurasidone HCl (Latuda) 40 mg DAILYWSUP PO 03/22/20 17:00 03/22/20 17:03 DC 03/22/20 16:45 Memantine (Namenda) 10 mg BID PO 03/22/20 09:00 03/22/20 20:38 Mirtazapine (Remeron) 7.5 mg QHS PO 03/22/20 21:00 03/22/20 20:40 Trazodone HCl (Desyrel) 12.5 mg QHS PO 03/22/20 21:00 03/22/20 20:40 Amantadine HCl (Symmetrel) 100 mg DAILY PO 03/22/20 09:00 03/22/20 08:31 Atorvastatin Calcium (Lipitor) 20 mg QHS PO 03/22/20 21:00 03/22/20 20:40 Levothyroxine Sodium (Synthroid) 50 mcg HS PO 03/22/20 21:00 03/22/20 20:40 I have reviewed the current psychotropics carefully including drug interactions. Risk benefit ratio favors no change other than as noted in my dictated progress note. Diagnosis: Problems: (1) Schizoaffective disorder, bipolar type (2) Obsessive compulsive disorder (3) Tardive dyskinesia (4) Anxiety disorder, unspecified (5) Impulse control disorder, unspecified KIERSTEN WATT MD Mar 23, 2020 07:19
[2020-03-23] MEDS: MEMANTINE 10 MG TABLET. PO SCH ×2 (08:22→20:43)
[2020-03-23] MEDS: FUROSEMIDE 20 MG TABLET PO SCH (08:22)
[2020-03-23] MEDS: CYANOCOBALAMIN (VITAMIN B-12) 1,000 MCG TABLET. PO SCH (08:22)
[2020-03-23] MEDS: hydrOXYzine PAMOATE 25 MG CAPSULE PO SCH ×3 (08:22→20:44)
[2020-03-23] MEDS: BENZTROPINE MESYLATE 1 MG TABLET PO SCH ×2 (08:23→20:43)
[2020-03-23] MEDS: prednisoLONE ACETATE 1% OPHTH SUSPENSION 5ML BOTTLE. OD SCH (08:23)
[2020-03-23] MEDS: POLYETHYLENE GLYCOL 3350 17 GM PACKET. PO SCH (08:23)
[2020-03-23] MEDS: AMANTADINE HCL 100 MG PO SCH (08:24)
--- NOTE | 2020-03-23 10:50 | CONS ---
DATE OF CONSULTATION: 03/22/2020 REASON FOR CONSULTATION: Medical management. HISTORY OF PRESENT ILLNESS: The patient is a 70-year-old female patient, a resident at [facility], who was initially admitted to [address] [place] [address] to be screened for COVID-19. Apparently, her COVID-19 by PCR was negative, and therefore she was [facility] on account of exacerbation of her schizoaffective disorder, bipolar disorder. The patient herself is nonverbal. I am seeing her as the nursing staff were concerned that the patient is constantly touching her hair and probably pulling her eyebrows, with marked erythema around her eyebrows and particularly around her left eye and right eye and also the forehead. PAST MEDICAL HISTORY: Significant for schizoaffective disorder and bipolar disorder. She has depression, hypothyroidism and hyperlipidemia. PAST SURGICAL HISTORY: Unobtainable. ALLERGIES: SHE IS ALLERGIC TO BENZODIAZEPINE, CLONAZEPAM, LITHIUM AND LORAZEPAM. MEDICATIONS: She is currently on following medications. She is on atorvastatin calcium 20 mg at bedtime, diclofenac sodium 1 gram applied topically 4 times a day, tramadol 50 mg every 8 hours, Tylenol 650 mg every 6 hours, mirtazapine 7.5 mg at bedtime, trazodone 25 mg at bedtime, haloperidol 0.5 mg at bedtime, Latuda 40 mg daily, hydroxyzine pamoate 25 mg 3 times a day, amantadine ____ mg twice a day, benztropine mesylate 1 mg twice a day, Namenda 10 mg twice a day, furosemide 20 mg daily, prednisolone acetate 1 drop to both eyes once a day, polyvinyl alcohol or Refresh classic eyedrops 1 drop to both eyes 3 times a day, sodium chloride Elmer 1 application to each eye at bedtime. She is also on Maalox 15 mL after meals and as needed, milk of magnesia 30 mL p.o. daily p.r.n. for constipation, polyethylene glycol 17 grams daily. She is on estradiol 42.5 mg or Estrace 1 application vaginally 2 times a week q. Friday and . She is on levothyroxine sodium 50 mcg at bedtime, cyanocobalamin 1000 mcg tablet once a day. FAMILY HISTORY: Unobtainable. SOCIAL HISTORY: She is a resident at [facility]. No other information is available. PHYSICAL EXAMINATION: GENERAL: When I saw her today she was resting, slightly propped up in bed, in no apparent respiratory distress. She was pale, but no jaundice, cyanosis or thyromegaly. No jugular venous distention. No limb edema. VITAL SIGNS: Her heart rate was 75, blood pressure was 108/49, temperature was 98.3, respiratory rate was 20 and oxygen saturation was 94%. HEAD, EYES, EARS, NOSE AND THROAT: Showed normocephalic, atraumatic. NECK: Supple. CARDIAC: Normal first and second heart sounds. No gallop, rub or murmur. CHEST: Clear to auscultation. No crepitation or rhonchi. ABDOMEN: Distended, soft, nontender. NEUROLOGIC: She is awake, alert; however, she is nonverbal. All her cranial nerves seem to be grossly intact. She is constantly touching her hair. She apparently probably pulling the hairs of her eyebrows as there is marked erythema and induration around her eyebrow hair follicles and around the upper eyelid as well as the right eyebrow to a lesser extent and forehead. LABORATORY DATA: Showed the white cell count to be 7100, hemoglobin 11, hematocrit 35, MCV 85 and platelet count 285,000. Her chemistry showed serum sodium 139, potassium 3.8, chloride 104, bicarbonate 25, anion gap of 10, BUN 9, creatinine 0.9. Estimated GFR was 61 mL per minute. Her glucose was 100, calcium was ____, magnesium was 2.1. Total bilirubin, AST, ALT, alkaline phosphatase were normal. Total protein 7.4, albumin 3. Her total T4 and total T3 are within normal range. ASSESSMENT AND PLAN: In summary, this is a 70-year-old female patient who has bipolar disorder, manic, moderate with anxiety disorder, impulse control, mild cognitive impairment. Medically, she is known to have hypothyroidism as well as she is constantly rubbing or pulling the hair of her eyebrows on both sides, with marked erythema and tenderness. She is afebrile. Her white cell count is normal and I am not sure even if starting her on antibiotic will resolve the problem because her constant rubbing and pulling the hair follicles is constant, and probably that is the reason why she is here. So, I probably will observe her for a few more days and see. If symptom worsens or she develops fever, we will probably have to start her on antibiotic, targeting particularly Staphylococcus aureus infection. TANIA DELGADO MD DR: TRINIDAD/fredrick JOB#: [id number] / [id number]
--- NOTE | 2020-03-23 12:30 | NUR ---
ACTIVITY THERAPY ASSESSMENT completed based on attempted interviews and observation. Attempted interviews were 03/22 at 1245 and 03/23 at 1230. Pt was unable to make sentences any only said a couple of words. Pt was constantly rubbing fingers through her hair and on eyebrows. Pt has swelling due to the constant rubbing. Pt appeared to be anxious at times when her breathing became a bit abnormal. Based of previous assessments from earlier visits pt sometimes plays bingo and exercising. Pt said that she didn't like arts and crafts. Initial goal aimed to increase time management and stress management/relaxation skills. Pt will participate in at least one individual or group Activity Therapy session before discharge. Addendum: 04/12/20 at 1544 by VIDHI DIAZ ACT Initial goal achieved as of 04/12, repeat goal
--- NOTE | 2020-03-23 14:21 | NUR ---
PATIENT IS AWAKE IN A BED UPON ASSESSMENT THIS AM. PATIENT IS RESTLESS IN A BED, COMPLIANT WITH MEDS , IMPULSIVE WITH MEALS AND FLUID INTAKE, PT INSTRUCTED TO DRINK WATER SLOWER. PATIENT YELLS OUT EACH TIME WHEN STAFF TRYING TO ASSIST WITH ADLS OR REPOSITION.
--- NOTE | 2020-03-23 14:50 | NUR ---
WEEKLY ACTIVITY THERAPY NOTE Date of Admission: 03/21 Date of AT Assessment: TBD Precipitating behaviors that initiated intake and admission: Manic, digging at hair and face, anxious, rambles, upper and lower body movements. Goal aimed: increase time management and stress management/relaxation skills Initial Goal: Pt will participate in at least one individual or group Activity Therapy session before discharge. Weekly progress towards goal: NA Group participation level: NA Weekly highlights: arrived on unit Behaviors observed: restless in bed, withdrawn to room, digging at her scalp, not talking to staff when asked questions Plan: meet/ assess Pt. Beneficial adaptations:
[2020-03-23 16:13] VITALS: BP 130/74
[2020-03-23] MEDS: LURASIDONE 40 MG TABLET. PO SCH (17:20)
[2020-03-23] MEDS: ATORVASTATIN CALCIUM 20 MG TABLET PO SCH (20:43)
[2020-03-23] MEDS: MIRTAZAPINE 7.5 MG TABLET. PO SCH (20:43)
[2020-03-23] MEDS: LEVOTHYROXINE 50 MCG TABLET PO SCH (20:44)
[2020-03-23] MEDS: traZODone 50 MG TABLET. PO SCH (20:44)
--- NOTE | 2020-03-23 20:49 | PDOC ---
Exam Note: Julian Note: Please also refer to the separate dictated note~for this date of service dictated separately.~Patient seen individually. Discussed the patient with Nursing staff reviewed the chart.~Reviewed interim history and current functioning. Reviewed vital signs,~Labs/ Radiology~and current medications noted below. Continue current treatment with the changes noted in the dictated addendum note Assessment: Vital Signs/I&O: Vital Signs Date Time Temp Pulse Resp B/P (MAP) Pulse Ox O2 Delivery O2 Flow Rate FiO2 03/23/20 16:13 98.4 87 20 130/74 (92) 96 03/21/20 18:23 Room Air I & O 03/22/20 03/22/20 03/23/20 15:00 23:00 07:00 Intake Total 220 ml 600 ml Output Total 1000 ml Balance 220 ml -400 ml Labs: Laboratory Tests Test 03/22/20 22:09 Urine Collection Type Unknown Urine Color Yellow Urine Clarity Clear Urine pH 7.0 Urine Specific [place] 1.015 Urine Protein Neg (NEG-TRACE) Urine Glucose (UA) Neg mg/dL (NEG) Urine Ketones (Stick) Neg mg/dL (NEG) Urine Blood Neg (NEG) Urine Nitrite Neg (NEG) Urine Bilirubin Neg (NEG) Urine Urobilinogen Dipstick 0.2 mg/dL (0.2 mg/dL) Urine Leukocyte Esterase Neg (NEG) Urine RBC Rare /HPF (0-2) Urine WBC Occ /HPF (0-4) Urine Squamous Epithelial Cells Mod /LPF Urine Bacteria 0 /HPF (0-FEW) Current Medications: Meds: Current Medications Medications (Trade) Dose Ordered Sig/Bora Route PRN Reason Start Time Stop Time Status Last Admin Dose Admin Mirtazapine (Remeron) 7.5 mg QHS PO 03/22/20 21:00 03/22/20 20:40 Trazodone HCl (Desyrel) 12.5 mg QHS PO 03/22/20 21:00 03/22/20 20:40 Lurasidone HCl (Latuda) 60 mg DAILYWSUP PO 03/23/20 17:00 03/23/20 17:20 Atorvastatin Calcium (Lipitor) 20 mg QHS PO 03/22/20 21:00 03/22/20 20:40 Cyanocobalamin (Vitamin B-12) 1,000 mcg DAILY PO 03/23/20 09:00 03/23/20 08:22 Furosemide (Lasix) 20 mg DAILY PO 03/23/20 09:00 03/23/20 08:22 Levothyroxine Sodium (Synthroid) 50 mcg HS PO 03/22/20 21:00 03/22/20 20:40 Polyethylene Glycol (miraLAX) 17 gm DAILY PO 03/23/20 09:00 03/23/20 08:23 Prednisolone Acetate (Pred Forte) 1 drop DAILY OD 03/23/20 09:00 03/23/20 08:23 I have reviewed the current psychotropics carefully including drug interactions. Risk benefit ratio favors no change other than as noted in my dictated progress note. Diagnosis: Problems: (1) Schizoaffective disorder, bipolar type (2) Tardive dyskinesia (3) Impulse control disorder, unspecified (4) Anxiety disorder, unspecified (5) Bipolar affective, mixed, sev w/ psych KIERSTEN WATT MD Mar 23, 2020 20:49
[2020-03-23] MEDS: SODIUM CHLORIDE 5% OPHTH OINTMENT 3.5GM TUBE. OU SCH (23:02)
--- NOTE | 2020-03-23 23:52 | NUR ---
Patient was laying in her bed, rolling around and running her fingers through her hair. She does not acknowledge nurse when nurse is talking to her. Patient is having significant tremors in her extremities and involuntary facial movements. She does not seem aware of the movements. Patient compliant with medications whole, she gulped the water down and coughed after drinking it. Patient is asleep at this time after taking scheduled remeron and trazodone.
[2020-03-24 06:38] VITALS: BP 105/65
[2020-03-24] MEDS: AMANTADINE HCL 100 MG PO SCH (08:14)
[2020-03-24] MEDS: MEMANTINE 10 MG TABLET. PO SCH ×2 (08:15→20:15)
[2020-03-24] MEDS: prednisoLONE ACETATE 1% OPHTH SUSPENSION 5ML BOTTLE. OD SCH (08:15)
[2020-03-24] MEDS: POLYETHYLENE GLYCOL 3350 17 GM PACKET. PO SCH (08:15)
[2020-03-24] MEDS: BENZTROPINE MESYLATE 1 MG TABLET PO SCH ×2 (08:15→20:16)
[2020-03-24] MEDS: FUROSEMIDE 20 MG TABLET PO SCH (08:15)
[2020-03-24] MEDS: CYANOCOBALAMIN (VITAMIN B-12) 1,000 MCG TABLET. PO SCH (08:15)
[2020-03-24] MEDS: hydrOXYzine PAMOATE 25 MG CAPSULE PO SCH ×3 (08:15→20:14)
[2020-03-24] MEDS: traMADol 50 MG TABLET PO PRN ×2 (08:26→20:25)
--- NOTE | 2020-03-24 11:56 | NUR ---
PATIENT IS APHASIC AND RESTLESS THIS MORNING AND I WAS ABLE TO UNDERSTAND PATIENT WHEN SHE STATED THAT SHE HAD PAIN IN HER HEAD. PATIENT CONTINUED TO ROCK BACK AND FORTH GRASPING AT HER HAIR. PATIENT SEEMS TO HAVE PICKED AT HER EYE BROWS IT IS RED AND SWOLLEN. PATIENT RECEIVED TRAMADOL AND STATED HER PAIN WAS OKAY. PATIENT IS CURRENTLY LAYING IN BED WAITING FOR LUNCH
--- NOTE | 2020-03-24 13:38 | NUR ---
PSYCHOSOCIAL ASSESSMENT ADMISSION DATE: 03/21/20 CONTACT INFORMATION: DPOA/Guardian Contact Name: Hardik Smith Contact Address: [address]; [place] [address] Contact Phone #: ETHNIC ORIGIN: REASONS FOR ADMISSION: Agitated Anxiety/Panic Sig. Change Sleep ADDITIONAL ADMISSION COMMENTS: According to the intake, pt is manic, digging at her hair and face, agitated, restless, insomnia, sporadic meal intake, anxious, rambling, causing harm to self REASON FOR ADMISSION IN PATIENT/FAMILY'S OWN WORDS: They are trying to so many meds on her it's throwing her for a loop. PATIENT/FAMILY EXPECTATIONS FOR ADMISSION: Medication management LIVING SITUATION: Patient lives with: Retirement Other living arrangements: Contact Name: DelmileoSuman Contact Address: [address] [place] [address]; [place] [address] Contact Phone #: Contact Fax #: FAMILY RELATIONS: Marital Status: # of Marriages: 1 # of Children: 3 [facility] Family Support: Concerned Cooperative Involved in [place] Planning Additional Comments r/t Family: Pt has been to her , Hardik, over 35 years. Pt is very involved and visits pt daily. Pt and her have 3 children who are also involved. SIGNIFICANT PSYCHIATRIC/MEDICAL HISTORY: Psychiatric/Treatment History: This is pt 5x on [facility], the last being in November 2018. Pt has a previous dx of Bipolar D/O. Pt has had psychiatric treatment at [facility] and [facility]. Pertinent Family History: Bipolar D/O is rampant on the Maternal side HISTORICAL DATA: Childhood Environment: [place] Childhood Environment Additional Comments: Pt reports that her childhood growing up was normal. Her family took typical trips as a family and growing up with her siblings. Pt did report that her mother seemed emotionally unstable; but with her father around it seemed to be maintained. 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 Past/Present Interests/Hobbies: Music and seeing her grandchildren Financial support/resources: SS Disability Monthly income: Person handling finances: Pt handles all finances. Do you have a history of legal problems: N Cultural considerations: None SOCIAL RELATIONSHIPS-CURRENT/PAST: Psychiatrist: Natalie Sanchez PCP: Toy Pizano Counselor/Therapist: None Veterans' Administration: None Support Group: None Real Estate Subagent/Cell Room Operator: Kaylin Tapia at [facility] Other relationships: staff at [facility] STRENGTHS & WEAKNESSES: Patient's strengths: Good family support Stable living arrange Approachable Other patient strengths: Patient's weaknesses: Impulsive Health problems Other Other patient weaknesses: long hx of inpatient psychiatric stays PRELIMINARY PLAN OF TREATMENT: Preliminary plan: Dec. Anxiety/Panic Decrease Isolation Promote Coping Skill Medication Stabilization Monitor Med Effects Dec. Outbursts Other preliminary treatment comments: DISCHARGE PLANNING: Discharge planning/disposition: Current Living Arrange. Additional discharge needs identified: At this time, it is unknown if pt will return to [facility] or not. ADDITIONAL INFORMATION: Other Pertinent Data: SW contacted pt Hardik to discuss pt as she has not been admitted in over a year. Pt feels that pt has had too many isolations as she has been sent out a few times for medical concerns and returned to being quarantined. Then the facility has a pyschiatrist; however the [employer]DER is making all the changes and pt feels that they have not appropriately allowed the medications to take effect. Pt does not feel that pt has an allergy to [place] and does not wish for that to be on her chart. He feels that the facility has wrongly placed that on pt as she has had [place] in the past and maintains well on it. Same with Depmarko.
--- NOTE | 2020-03-24 15:50 | TX PLAN ---
Interdisciplinary Tx Plan Admission Information Mar 21, 2020 at 18:15 Legal Status (on Admission): Voluntary DPOA/Guardian Name: Hardik Smith Contact Other Contact Name: Joselito Other Contact Verified Code Status: Full Code Allergies: Coded Allergies: Benzodiazepines (Verified Allergy, Intermediate, Unknown, 12/29/17) clonazepam (Verified Allergy, Intermediate, Unknown, 12/29/17) lorazepam (Verified Allergy, Intermediate, Unknown, 12/29/17) lithium (Verified Allergy, Unknown, 03/20/20) Diagnoses Primary Diagnosis: Schizoaffective D/O, Bipolar type Reasons for Admission: Agitated, Sig. Change Sleep, Anxiety/Panic Problem in Patient's Words: They are trying to so many meds on her it's throwing her for a loop. Additional Admission Comments: According to the intake, pt is manic, digging at her hair and face, agitated, restless, insomnia, sporadic meal intake, anxious, rambling, causing harm to self Problems Active Problems: withdrawn restless anxious Tardive Dyskenesia Inactive Problems: medication compliant Pt Strengths/Limitations Ability for [place]: Poor Cognitive Functioning/Ability: Poor Communication Skills/Ability: Poor Financial Resources: Poor Insight/Judgement: Fair Intellectual Ability: Fair Physical Health: Poor Social Skills: Poor Stability in Family: Good Stability in School/Work: Poor Verbal Skills: Poor Discharge Criteria Discharge Criteria: No need for close observ., Adequate arrangements @DC, Impr yazmin behavior, Improved mood/thought Preliminary Discharge Plan Preliminary DC Plan: Current Living Arrange. Special Precautions Fall Risk: Moderate Initial [facility] Discharge Needs: At this time, it is unknown if pt will return to [facility] or not. Currently Utilized Resources Currently Utilized Resources/P: PCP Psychiatry/[employer] Identified Problems/Hx/Goals Objectives/Short-Term Goals Short Term Goals: Dec. Anxiety/Panic, Decrease Isolation, Dec. Outbursts, Medication Stabilization, Monitor Med Effects, Promote Coping Skill Short Term Goals in Patient's: N/A Interventions/Frequency Staff Interventions/Frequency&: Psychiatrist to assess pt at least 3x per week for medication management. Social Work to assess pt at least 2x per week for discharge planning and assess any potential discharge barriers. Nursing to manage behaviors, assess medication effects, and complete 15 minute checks. Encourage participation in group activities (if applicable) or 1:1 engagement based off activity dept assessment. 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 Community Follow-up PCP Psychiatry Community Provider/Family Inpu: They are screwing up his medications. Treatment Plan Explained Patient/Medical Safety Director had this treatment plan explained to him/her as indicated by the signature below and has been given the opportunity to ask questions and make suggestions: Date: Patient/Medical Safety Director Signature: Patient/Medical Safety Director Decline: WILDA Carter Mar 24, 2020 15:50
[2020-03-24 15:54] VITALS: BP 137/53
[2020-03-24] MEDS: LURASIDONE 40 MG TABLET. PO SCH (16:29)
[2020-03-24] MEDS: cloZAPine 25 MG TABLET PO SCH (20:14)
[2020-03-24] MEDS: SODIUM CHLORIDE 5% OPHTH OINTMENT 3.5GM TUBE. OU SCH (20:14)
[2020-03-24] MEDS: ATORVASTATIN CALCIUM 20 MG TABLET PO SCH (20:15)
[2020-03-24] MEDS: traZODone 50 MG TABLET. PO SCH (20:15)
[2020-03-24] MEDS: MIRTAZAPINE 7.5 MG TABLET. PO SCH (20:15)
[2020-03-24] MEDS: LEVOTHYROXINE 50 MCG TABLET PO SCH (20:15)
[2020-03-24] MEDS: ESTRADIOL 0.01% VAGINAL CREAM 42.5GM TUBE. VG SCH (20:32)
--- NOTE | 2020-03-24 20:57 | PDOC ---
Exam Note: Julian Note: Please also refer to the separate dictated note~for this date of service dictated separately.~Patient seen individually. Discussed the patient with Nursing staff reviewed the chart.~Reviewed interim history and current functioning. Reviewed vital signs,~Labs/ Radiology~and current medications noted below. Continue current treatment with the changes noted in the dictated addendum note Assessment: Vital Signs/I&O: Vital Signs Date Time Temp Pulse Resp B/P (MAP) Pulse Ox O2 Delivery O2 Flow Rate FiO2 03/24/20 20:25 22 96 Room Air 03/24/20 15:54 98.4 76 137/53 (81) I & O 03/23/20 03/23/20 03/24/20 15:00 23:00 07:00 Intake Total 480 ml 240 ml Balance 480 ml 240 ml Current Medications: Meds: Current Medications Medications (Trade) Dose Ordered Sig/Bora Route PRN Reason Start Time Stop Time Status Last Admin Dose Admin Clozapine (Clozaril) 25 mg HS PO 03/24/20 21:00 03/24/20 20:14 I have reviewed the current psychotropics carefully including drug interactions. Risk benefit ratio favors no change other than as noted in my dictated progress note. Diagnosis: Problems: (1) Tardive dyskinesia (2) Schizoaffective disorder, bipolar type (3) Obsessive compulsive disorder (4) Impulse control disorder, unspecified (5) Anxiety disorder, unspecified (6) Bipolar affective, mixed, sev w/ psych (7) Mild cognitive impairment KIERSTEN WATT MD Mar 24, 2020 20:57
--- NOTE | 2020-03-24 21:50 | NUR ---
Pt lying in bed awake at [facility] and assessment. She sat up with minimal assistance, with jerking movements, scratching, rubbing her head and pulling her hair. Pt cooperative and compliant with encouragement. When given medication, pt asked,"You want me to drink this? I don't want to." She mumbled as medications importance were explained to her. Gatorade and water offered with medications to improve compliance. Pt took medications all at once followed by water. When instructed, pt was able to be still while ointment was applied. Pt able to answer yes and no questions and occasionally used other words. She did not respond to the question of pain. Will continue to monitor.
[2020-03-25 06:00] VITALS: BP 105/65
[2020-03-25] MEDS: MEMANTINE 10 MG TABLET. PO SCH ×2 (08:23→20:01)
[2020-03-25] MEDS: hydrOXYzine PAMOATE 25 MG CAPSULE PO SCH ×3 (08:23→20:02)
[2020-03-25] MEDS: CYANOCOBALAMIN (VITAMIN B-12) 1,000 MCG TABLET. PO SCH (08:23)
[2020-03-25] MEDS: FUROSEMIDE 20 MG TABLET PO SCH (08:24)
[2020-03-25] MEDS: prednisoLONE ACETATE 1% OPHTH SUSPENSION 5ML BOTTLE. OD SCH (08:24)
[2020-03-25] MEDS: BENZTROPINE MESYLATE 1 MG TABLET PO SCH ×2 (08:24→20:02)
[2020-03-25] MEDS: POLYETHYLENE GLYCOL 3350 17 GM PACKET. PO SCH (08:24)
[2020-03-25] MEDS: AMANTADINE HCL 100 MG PO SCH (08:31)
--- NOTE | 2020-03-25 10:45 | NUR ---
PATIENT IS RESTLESS THIS MORNING AND CONTINUOUS TO GRAB AT FACE AND HAIR. PATIENT WAS COMPLIANT WITH MEDICATIONS AND ASSESSMENT. SHE IS CURRENTLY IN BED.
[2020-03-25 14:31] VITALS: BP 172/72
[2020-03-25] MEDS: LURASIDONE 40 MG TABLET. PO SCH (17:22)
[2020-03-25] MEDS ORDERED: traZODone 50 MG TABLET. PO PRN (18:15)
[2020-03-25] MEDS: LEVOTHYROXINE 50 MCG TABLET PO SCH (20:02)
[2020-03-25] MEDS: traZODone 50 MG TABLET. PO SCH (20:02)
[2020-03-25] MEDS: cloZAPine 25 MG TABLET PO SCH (20:02)
[2020-03-25] MEDS: ATORVASTATIN CALCIUM 20 MG TABLET PO SCH (20:03)
[2020-03-25] MEDS: MIRTAZAPINE 7.5 MG TABLET. PO SCH (20:03)
[2020-03-25] MEDS: SODIUM CHLORIDE 5% OPHTH OINTMENT 3.5GM TUBE. OU SCH (20:07)
--- NOTE | 2020-03-25 20:50 | PDOC ---
Exam Note: Julian Note: Please also refer to the separate dictated note~for this date of service dictated separately.~Patient seen individually. Discussed the patient with Nursing staff reviewed the chart.~Reviewed interim history and current functioning. Reviewed vital signs,~Labs/ Radiology~and current medications noted below. Continue current treatment with the changes noted in the dictated addendum note Assessment: Vital Signs/I&O: Vital Signs Date Time Temp Pulse Resp B/P (MAP) Pulse Ox O2 Delivery O2 Flow Rate FiO2 03/25/20 14:31 98.4 58 19 172/72 (105) 98 03/25/20 06:00 Room Air I & O 03/24/20 03/24/20 03/25/20 15:00 23:00 07:00 Intake Total 400 ml 400 ml Balance 400 ml 400 ml Current Medications: Meds: Current Medications Medications (Trade) Dose Ordered Sig/Bora Route PRN Reason Start Time Stop Time Status Last Admin Dose Admin Clozapine (Clozaril) 25 mg HS PO 03/24/20 21:00 03/25/20 20:02 I have reviewed the current psychotropics carefully including drug interactions. Risk benefit ratio favors no change other than as noted in my dictated progress note. Diagnosis: Problems: (1) Impulse control disorder, unspecified (2) Tardive dyskinesia (3) Anxiety disorder, unspecified (4) Bipolar affective, mixed, sev w/ psych (5) Mild cognitive impairment (6) Schizoaffective disorder, bipolar type KIERSTEN WATT MD Mar 25, 2020 20:50
--- NOTE | 2020-03-25 22:27 | NUR ---
Pt located in her room this evening. Pt restless, rocking back and forth. Pt continuously running her fingers through her hair and rubbing at her eye brows. Pt resistive to HS medications, picking the med cup up and putting it back down numerous times. Pt asked "why do I have to take these?" Pt eventually compliant with whole medications.
[2020-03-26 06:31] VITALS: BP 125/83
--- NOTE | 2020-03-26 07:10 | PDOC ---
Exam Note: Julian Note: This note is a late entry for 03/23/2020 covers elements not covered in my initial note. Subjective: The patient was seen face to face in the morning of 03/23/2020 for treatment team meeting with Chiara Dupree Nikki (secondary social studies teacher), Lucy, activity therapy staff, and Debbi MUÑOZ. Discussed with nursing staff, reviewed the chart. The patient slept 7 hours previous night. She remains somewhat impulsive, extremely withdrawn and seems to have some dyskinetic movements suggestive of tardive dyskinesia. We discussed checking with pharmacy if Valbenazine is available and nursing staff will also check abnormal involuntary movement scale. She remains psychotic, pulling on her eyebrows and bruising her face and head scalp area where she pulls on her hair. The patient was also seen individually in the evening in her room. I am reviewing her discharge medications from her last hospitalization and it seems she was on a mood stabilizer either lithium or Depakote and an atypical antipsychotic, all of which seemed to have changed. I am somewhat unclear on the timeline of these changes at the halfway and the reasons for that including her Clozaril. Review of Systems: No CV, , pulmonary, eye, ENT system symptoms on review. The movements seem better. Mental Status Exam: Oriented to herself and situation though she does not respond spontaneously. Often verbal response is monosyllabic, difficult to assess this clearly. She is not very verbally interactive, though a little bit more than the day before. Insight and judgment, recent memory is impaired. Stan guage function is intact. Mood and affect is withdrawn, anxious, labile, quite paranoid, suspicious. Attention span is short. No active suicidal or homicidal ideation. Laboratory Data: Reviewed. Impression: Schizoaffective disorders bipolar type mixed with psychotic features. Anxiety disorder unspecified. Impulse control disorder unspecified. Plan: As noted above. She remains on Cogentin 1 mg b.i.d., which we will continue for now, Namenda 10 mg b.i.d., Remeron 7.5 mg h.s., Latuda 60 mg a day, trazodone 12.5 mg h.s., Vistaril 25 mg t.i.d. though I am not sure about the need for the Vistaril. We will continue to assess the baseline and make further changes in her psychotropics and risk-benefit ratio was considered carefully with the above. Assessment: Vital Signs/I&O: Vital Signs Date Time Temp Pulse Resp B/P (MAP) Pulse Ox O2 Delivery O2 Flow Rate FiO2 03/26/20 06:31 98.0 78 18 125/83 (97) 95 03/25/20 06:00 Room Air I & O 03/25/20 03/25/20 03/26/20 15:00 23:00 07:00 Intake Total 120 ml 480 ml Balance 120 ml 480 ml Current Medications: I have reviewed the current psychotropics carefully including drug interactions. Risk benefit ratio favors no change other than as noted in my dictated progress note. Diagnosis: Problems: (1) Schizoaffective disorder, bipolar type (2) Tardive dyskinesia (3) Impulse control disorder, unspecified (4) Anxiety disorder, unspecified (5) Bipolar affective, mixed, sev w/ psych KIERSTEN WATT MD Mar 26, 2020 07:10
--- NOTE | 2020-03-26 07:28 | PDOC ---
Exam Note: Julian Note: This note is a late entry for 03/24/2020 covers elements not covered in my initial note. Subjective: The patient was seen face to face in the evening of 03/24/2020 with Soham MUÑOZ. Discussed with nursing staff, reviewed the chart. The patient has been withdrawn, spending much time in her room, remains psychotic, paranoid, not very verbally interactive whatsoever. She is still pulling on her eyebrows and has large lesions around this and her facial area where she pulls. I reviewed the psychotropics when she was discharged at the time of leaving hospital on the last visit and these included Depakote and at one point she was on lithium, Remeron, Zyprexa. The tardive dyskinetic movements appear improved. The patient slept 4 hours previous night. Review of Systems: No CV, , pulmonary, eye, ENT system symptoms on review. Mental Status Exam: Oriented to herself and situation. The patient did sit up and said a word or two better than the day before but not very verbally interactive whatsoever. She remains psychotic, distractible, anxious. Language function is intact. Mood and affect is withdrawn, anxious. Attention span is short. Tardive dyskinetic movements appear improved. Laboratory Data: Reviewed. Impression: Tardive dyskinesia. Schizoaffective disorders bipolar type mixed with psychotic features. Anxiety disorder unspecified. Impulse control disorder unspecified. Plan: Start Clozaril 25 mg p.o. h.s. Check CBC, absolute neutrophil count every Friday. Continue rest unchanged for now. Assessment: Vital Signs/I&O: Vital Signs Date Time Temp Pulse Resp B/P (MAP) Pulse Ox O2 Delivery O2 Flow Rate FiO2 03/26/20 06:31 98.0 78 18 125/83 (97) 95 03/25/20 06:00 Room Air I & O 03/25/20 03/25/20 03/26/20 15:00 23:00 07:00 Intake Total 120 ml 480 ml Balance 120 ml 480 ml Current Medications: I have reviewed the current psychotropics carefully including drug interactions. Risk benefit ratio favors no change other than as noted in my dictated progress note. Diagnosis: Problems: (1) Schizoaffective disorder, bipolar type (2) Tardive dyskinesia (3) Impulse control disorder, unspecified (4) Anxiety disorder, unspecified (5) Mild cognitive impairment (6) Bipolar affective, mixed, sev w/ psych KIERSTEN WATT MD Mar 26, 2020 07:28
--- NOTE | 2020-03-26 07:47 | PDOC ---
Exam Note: Julian Note: This note is a late entry for 03/25/2020 covers elements not covered in my initial note. Subjective: The patient was seen face to face in the evening of 03/25/2020 with Stacie MUÑOZ. Discussed with nursing staff, reviewed the chart. The patient has still been picking on her eyebrows and forehead and has large bruises. Review of Systems: No CV, , pulmonary, eye, ENT system symptoms on review. Mental Status Exam: Oriented to herself and situation. She remains paranoid, psychotic, just a little more verbal as I met with her in her room, still quite withdrawn. Athetoid movements are little better. Language function is intact. Mood and affect is withdrawn, anxious. Attention span is short. Tardive dyskinetic movements appear improved. Laboratory Data: Reviewed. Impression: Tardive dyskinesia. Schizoaffective disorders bipolar type mixed with psychotic features. Anxiety disorder unspecified. Impulse control disorder unspecified. Plan: We have started the patient on Clozaril 25 mg p.o. h.s. We will adjust and increase this weekly following CBC, absolute neutrophil counts. Maintain rest unchanged. Assessment: Vital Signs/I&O: Vital Signs Date Time Temp Pulse Resp B/P (MAP) Pulse Ox O2 Delivery O2 Flow Rate FiO2 03/26/20 06:31 98.0 78 18 125/83 (97) 95 03/25/20 06:00 Room Air I & O 03/25/20 03/25/20 03/26/20 15:00 23:00 07:00 Intake Total 120 ml 480 ml Balance 120 ml 480 ml Current Medications: I have reviewed the current psychotropics carefully including drug interactions. Risk benefit ratio favors no change other than as noted in my dictated progress note. Diagnosis: Problems: (1) Schizoaffective disorder, bipolar type (2) Tardive dyskinesia (3) Impulse control disorder, unspecified (4) Anxiety disorder, unspecified (5) Bipolar affective, mixed, sev w/ psych (6) Mild cognitive impairment KIERSTEN WATT MD Mar 26, 2020 07:47
[2020-03-26] MEDS: BENZTROPINE MESYLATE 1 MG TABLET PO SCH (08:30)
[2020-03-26] MEDS: POLYETHYLENE GLYCOL 3350 17 GM PACKET. PO SCH (08:30)
[2020-03-26] MEDS: MEMANTINE 10 MG TABLET. PO SCH ×2 (08:30→20:03)
[2020-03-26] MEDS: prednisoLONE ACETATE 1% OPHTH SUSPENSION 5ML BOTTLE. OD SCH (08:30)
[2020-03-26] MEDS: FUROSEMIDE 20 MG TABLET PO SCH (08:30)
[2020-03-26] MEDS: CYANOCOBALAMIN (VITAMIN B-12) 1,000 MCG TABLET. PO SCH (08:31)
[2020-03-26] MEDS: hydrOXYzine PAMOATE 25 MG CAPSULE PO SCH ×2 (08:31→13:16)
[2020-03-26] MEDS: AMANTADINE HCL 100 MG PO SCH (08:31)
[2020-03-26] MEDS: traMADol 50 MG TABLET PO PRN (08:45)
--- NOTE | 2020-03-26 11:03 | NUR ---
Pt needed encouragement to take her medication. She also stated "my tongue hurts." PRN tramadol and tylenol given. No agitation, no aggression, no hallucinations or delusions noted. Her verbal communication is minimal.
[2020-03-26 15:46] VITALS: BP 100/71
[2020-03-26] MEDS: LURASIDONE 40 MG TABLET. PO SCH (17:06)
[2020-03-26] MEDS ORDERED: BISACODYL 10 MG SUPP.RECT PR PRN (20:00)
[2020-03-26] MEDS: MIRTAZAPINE 7.5 MG TABLET. PO SCH (20:03)
[2020-03-26] MEDS: SODIUM CHLORIDE 5% OPHTH OINTMENT 3.5GM TUBE. OU SCH (20:04)
[2020-03-26] MEDS: cloZAPine 25 MG TABLET PO SCH (20:04)
[2020-03-26] MEDS: LEVOTHYROXINE 50 MCG TABLET PO SCH (20:04)
[2020-03-26] MEDS: traZODone 50 MG TABLET. PO SCH (20:04)
[2020-03-26] MEDS: ATORVASTATIN CALCIUM 20 MG TABLET PO SCH (20:04)
--- NOTE | 2020-03-26 20:35 | PDOC ---
Exam Note: Julian Note: Please also refer to the separate dictated note~for this date of service dictated separately.~Patient seen individually. Discussed the patient with Nursing staff reviewed the chart.~Reviewed interim history and current functioning. Reviewed vital signs,~Labs/ Radiology~and current medications noted below. Continue current treatment with the changes noted in the dictated addendum note Assessment: Vital Signs/I&O: Vital Signs Date Time Temp Pulse Resp B/P (MAP) Pulse Ox O2 Delivery O2 Flow Rate FiO2 03/26/20 15:46 98.5 68 20 100/71 (81) 94 Room Air I & O 03/25/20 03/25/20 03/26/20 15:00 23:00 07:00 Intake Total 120 ml 480 ml Balance 120 ml 480 ml Current Medications: I have reviewed the current psychotropics carefully including drug interactions. Risk benefit ratio favors no change other than as noted in my dictated progress note. Diagnosis: Problems: (1) Tardive dyskinesia (2) Schizoaffective disorder, bipolar type (3) Impulse control disorder, unspecified (4) Anxiety disorder, unspecified (5) Bipolar affective, mixed, sev w/ psych (6) Mild cognitive impairment KIERSTEN WATT MD Mar 26, 2020 20:35
--- NOTE | 2020-03-26 22:15 | NUR ---
Pt laying in her bed this evening. Pt continues to have extra movements; continuously running fingers through her hair and rubbing her face. Resistive to HS medications but eventually compliant. Pt refused HS snack tonight.
[2020-03-27 06:23] VITALS: BP 112/68
--- NOTE | 2020-03-27 07:39 | PDOC ---
Exam Note: Julian Note: This note is a late entry for 03/26/2020 covers elements not covered in my initial note. Subjective: The patient was seen face to face in the evening of 03/26/2020 with Sadia MUÑOZ. Discussed with nursing staff, reviewed the chart. The patient slept 6-1/4 hours previous night. She has been able to verbalize just likely more coherently in one sentence. She stated my tongue hurts. As I met with her she was talking about her hair used to be beautiful. I have reviewed past psychiatric records and discharge summaries from her prior psychiatric hospitalizations and assisted by Sadia MUÑOZ for this. At the time of her last discharge she was on a combination of lithium, Depakote, Clozaril 350 mg h.s., Remeron, and trazodone. It appears at some point her Clozaril, Depakote, and lithium were discontinued and she has had a relapse of her schizoaffective disorder bipolar type, mixed with psychotic features prompting this readmission. Review of Systems: Ambulation impaired. No CV, , pulmonary, eye, ENT system symptoms on review. Mental Status Exam: Oriented to herself and situation. She was able to put together sentences a little better today but quite distractible, anxious. Abstraction fair. Computation impaired. Language function is intact. Mood and affect is withdrawn, anxious. Attention span is short. Tardive dyskinetic movements appear improved. No suicidal or homicidal ideation. Laboratory Data: Reviewed. Impression: Tardive dyskinesia. Schizoaffective disorders bipolar type mixed with psychotic features. Anxiety disorder unspecified. Impulse control disorder unspecified. Plan: The patient is on Clozaril 25 mg p.o. h.s. Check CBC, absolute neutrophil count on 03/27. Increase Clozaril further. Continue rest unchanged. Consider lithium and Depakote at some point. Assessment: Vital Signs/I&O: Vital Signs Date Time Temp Pulse Resp B/P (MAP) Pulse Ox O2 Delivery O2 Flow Rate FiO2 03/27/20 06:23 97.7 90 20 112/68 (83) 97 Room Air I & O 03/26/20 03/26/20 03/27/20 14:59 22:59 06:59 Intake Total 360 ml 120 ml 100 ml Balance 360 ml 120 ml 100 ml Current Medications: Meds: Current Medications Medications (Trade) Dose Ordered Sig/Bora Route PRN Reason Start Time Stop Time Status Last Admin Dose Admin Bisacodyl (Dulcolax Supp) 10 mg PRN DAILY PRN SC CONSTIPATION 03/26/20 20:00 03/27/20 06:30 I have reviewed the current psychotropics carefully including drug interactions. Risk benefit ratio favors no change other than as noted in my dictated progress note. Diagnosis: Problems: (1) Schizoaffective disorder, bipolar type (2) Tardive dyskinesia (3) Impulse control disorder, unspecified (4) Anxiety disorder, unspecified (5) Bipolar affective, mixed, sev w/ psych (6) Mild cognitive impairment KIERSTEN WATT MD Mar 27, 2020 07:39
[2020-03-27] MEDS: prednisoLONE ACETATE 1% OPHTH SUSPENSION 5ML BOTTLE. OD SCH (08:07)
[2020-03-27] MEDS: POLYETHYLENE GLYCOL 3350 17 GM PACKET. PO SCH (08:08)
[2020-03-27] MEDS: CYANOCOBALAMIN (VITAMIN B-12) 1,000 MCG TABLET. PO SCH (08:09)
[2020-03-27] MEDS: FUROSEMIDE 20 MG TABLET PO SCH (08:09)
[2020-03-27] MEDS: AMANTADINE HCL 100 MG PO SCH (08:09)
[2020-03-27] MEDS: MEMANTINE 10 MG TABLET. PO SCH ×2 (08:09→20:07)
[2020-03-27] MEDS: hydrOXYzine PAMOATE 25 MG CAPSULE PO SCH ×2 (08:11→20:06)
--- NOTE | 2020-03-27 09:42 | NUR ---
Pt is calm, cooperative and compliant. No agitation, no aggression, no hallucinations or delusions noted. Pt is compliant with her medication and assessment. She appeared to have difficulty eating and needed assistance with feeding.
[2020-03-27 09:45] LABS: BASO % 1 % (0-3); EOS # 0.2 x10^3/uL (0.0-0.7); EOS % 4 % (0-3); HEMATOCRIT 36.8 % (36.0-47.0); HEMOGLOBIN 11.9 g/dL (12.0-15.5); LYMPH # 2.2 x10^3/uL (1.0-4.8); LYMPH % 41 % (24-48); MEAN CORPUSCULAR HEMOGLOBIN 28 pg (25-35); MEAN CORPUSCULAR HGB CONC 32 g/dL (31-37); MEAN CORPUSCULAR VOLUME 86 fL (79-100); MONO # 0.5 x10^3/uL (0.0-1.1); MONO % 9 % (0-9); NEUT # 2.4 x10^3uL (1.8-7.7); NEUT % 45 % (31-73); PLATELET COUNT 281 x10^3/uL (140-400); RED BLOOD COUNT 4.29 x10^6/uL (3.50-5.40); RED CELL DISTRIBUTION WIDTH 14.8 % (11.5-14.5); WHITE BLOOD COUNT 5.3 x10^3/uL (4.0-11.0)
--- NOTE | 2020-03-27 12:31 | NUR ---
ROSALINE faxed updates on pt to ROSALINE Ewing at [facility].
[2020-03-27 16:12] VITALS: BP 137/72
[2020-03-27] MEDS: LURASIDONE 40 MG TABLET. PO SCH (17:58)
[2020-03-27] MEDS: ATORVASTATIN CALCIUM 20 MG TABLET PO SCH (20:06)
[2020-03-27] MEDS: MIRTAZAPINE 7.5 MG TABLET. PO SCH (20:06)
[2020-03-27] MEDS: traZODone 50 MG TABLET. PO SCH (20:07)
[2020-03-27] MEDS: LEVOTHYROXINE 50 MCG TABLET PO SCH (20:08)
[2020-03-27] MEDS: cloZAPine 25 MG TABLET PO SCH (20:08)
[2020-03-27] MEDS: ESTRADIOL 0.01% VAGINAL CREAM 42.5GM TUBE. VG SCH (20:09)
[2020-03-27] MEDS: SODIUM CHLORIDE 5% OPHTH OINTMENT 3.5GM TUBE. OU SCH (20:09)
--- NOTE | 2020-03-27 20:51 | PDOC ---
Exam Note: Julian Note: Please also refer to the separate dictated note~for this date of service dictated separately.~Patient seen individually. Discussed the patient with Nursing staff reviewed the chart.~Reviewed interim history and current functioning. Reviewed vital signs,~Labs/ Radiology~and current medications noted below. Continue current treatment with the changes noted in the dictated addendum note Assessment: Vital Signs/I&O: Vital Signs Date Time Temp Pulse Resp B/P (MAP) Pulse Ox O2 Delivery O2 Flow Rate FiO2 03/27/20 16:12 98.8 71 19 137/72 (93) 96 03/27/20 06:23 Room Air I & O 03/26/20 03/26/20 03/27/20 15:00 23:00 07:00 Intake Total 360 ml 120 ml 100 ml Balance 360 ml 120 ml 100 ml Labs: Laboratory Tests Test 03/27/20 06:42 White Blood Count 5.3 x10^3/uL (4.0-11.0) Red Blood Count 4.29 x10^6/uL (3.50-5.40) Hemoglobin 11.9 g/dL (12.0-15.5) L Hematocrit 36.8 % (36.0-47.0) Mean Corpuscular Volume 86 fL (79-100) Mean Corpuscular Hemoglobin 28 pg (25-35) Mean Corpuscular Hemoglobin Concent 32 g/dL (31-37) Red Cell Distribution Width 14.8 % (11.5-14.5) H Platelet Count 281 x10^3/uL (140-400) Neutrophils (%) (Auto) 45 % (31-73) Lymphocytes (%) (Auto) 41 % (24-48) Monocytes (%) (Auto) 9 % (0-9) Eosinophils (%) (Auto) 4 % (0-3) H Basophils (%) (Auto) 1 % (0-3) Neutrophils # (Auto) 2.4 x10^3uL (1.8-7.7) Lymphocytes # (Auto) 2.2 x10^3/uL (1.0-4.8) Monocytes # (Auto) 0.5 x10^3/uL (0.0-1.1) Eosinophils # (Auto) 0.2 x10^3/uL (0.0-0.7) Basophils # (Auto) 0.0 x10^3/uL (0.0-0.2) Current Medications: Meds: Current Medications Medications (Trade) Dose Ordered Sig/Bora Route PRN Reason Start Time Stop Time Status Last Admin Dose Admin Hydroxyzine Pamoate (Vistaril) 25 mg BID PO 03/27/20 09:00 03/27/20 20:06 Clozapine (Clozaril) 50 mg HS PO 03/27/20 21:00 03/27/20 20:08 I have reviewed the current psychotropics carefully including drug interactions. Risk benefit ratio favors no change other than as noted in my dictated progress note. Diagnosis: Problems: (1) Tardive dyskinesia (2) Schizoaffective disorder, bipolar type (3) Impulse control disorder, unspecified (4) Anxiety disorder, unspecified (5) Bipolar affective, mixed, sev w/ psych (6) Mild cognitive impairment KIERSTEN WATT MD Mar 27, 2020 20:51
[2020-03-27] MEDS ORDERED: BENZTROPINE MESYLATE 1 MG TABLET PO SCH (21:00)
--- NOTE | 2020-03-27 23:56 | NUR ---
Pt located in her room this evening. Pt continues to be restless with involuntary movements. Compliant with whole medications with coaxing. Swallow study ordered r/t pt choking on thin liquids.
[2020-03-28 06:15] VITALS: BP 132/89
--- NOTE | 2020-03-28 07:20 | PDOC ---
Exam Note: Julian Note: This note is a late entry for 03/27/2020 covers elements not covered in my initial note. Subjective: The patient was seen face to face in the evening of 03/27/2020 with Sadia MUÑOZ. Discussed with nursing staff, reviewed the chart. The patient slept 6 hours previous night. WBC 5.3, neutrophil 45%. We will check with the pharmacy before increasing Clozaril from 25 mg h.s. to 50 mg h.s. She does not have any EPS but does have some suggestions of tardive dyskinesia. We will go ahead and stop the Cogentin. Review of Systems: Ambulation impaired. No CV, , pulmonary, eye, ENT system symptoms on review. Mental Status Exam: Oriented to herself and situation. I met with her in her room. She is perhaps picking on her face and eyebrows, little less than before but not sure. She is withdrawn but attempting to converse, does speak a few words. This seemed connected. Abstraction fair. Computation impaired. Language function is intact. Mood and affect is withdrawn, anxious. Attention span is short. No suicidal or homicidal ideation. Laboratory Data: Reviewed. Impression: Tardive dyskinesia. Schizoaffective disorders bipolar type mixed with psychotic features. Anxiety disorder unspecified. Impulse control disorder unspecified. Plan: Increase Clozaril to 50 mg h.s., if the blood count is satisfactory per pharmacy review. Rest unchanged for now. Consider adding Depakote or lithium in the future. Assessment: Vital Signs/I&O: Vital Signs Date Time Temp Pulse Resp B/P (MAP) Pulse Ox O2 Delivery O2 Flow Rate FiO2 03/28/20 06:15 97.1 90 18 132/89 (103) 94 03/27/20 06:23 Room Air I & O 03/27/20 03/27/20 03/28/20 15:00 23:00 07:00 Intake Total 480 ml 120 ml 100 ml Balance 480 ml 120 ml 100 ml Current Medications: Meds: Current Medications Medications (Trade) Dose Ordered Sig/Bora Route PRN Reason Start Time Stop Time Status Last Admin Dose Admin Hydroxyzine Pamoate (Vistaril) 25 mg BID PO 03/27/20 09:00 03/27/20 20:06 Clozapine (Clozaril) 50 mg HS PO 03/27/20 21:00 03/27/20 20:08 I have reviewed the current psychotropics carefully including drug interactions. Risk benefit ratio favors no change other than as noted in my dictated progress note. Diagnosis: Problems: (1) Schizoaffective disorder, bipolar type (2) Tardive dyskinesia (3) Impulse control disorder, unspecified (4) Anxiety disorder, unspecified (5) Bipolar affective, mixed, sev w/ psych (6) Mild cognitive impairment KIERSTEN WATT MD Mar 28, 2020 07:20
[2020-03-28] MEDS: POLYETHYLENE GLYCOL 3350 17 GM PACKET. PO SCH (08:14)
--- NOTE | 2020-03-28 08:14 | NUR ---
Held miralax as patient unable to take miralax as it will not stir into honey thick liquids (it clumps up). Will ask Dr for colace or docusate to replace it.
[2020-03-28] MEDS: FUROSEMIDE 20 MG TABLET PO SCH (09:05)
[2020-03-28] MEDS: CYANOCOBALAMIN (VITAMIN B-12) 1,000 MCG TABLET. PO SCH (09:05)
[2020-03-28] MEDS: MEMANTINE 10 MG TABLET. PO SCH ×2 (09:05→21:15)
[2020-03-28] MEDS: hydrOXYzine PAMOATE 25 MG CAPSULE PO SCH ×2 (09:05→21:13)
[2020-03-28] MEDS: prednisoLONE ACETATE 1% OPHTH SUSPENSION 5ML BOTTLE. OD SCH (09:05)
[2020-03-28] MEDS: AMANTADINE HCL 100 MG PO SCH (09:05)
--- NOTE | 2020-03-28 13:03 | NUR ---
Patient laying in bed continuously running her hands through her hair and rubbing at her eyebrows. Her eyebrow area apears red and swollen. Patient has expressive aphasia and EPS, she has a hard time making her needs known. Nurse could not understand what patient was attempting to say. Patient withdraw to room, laying in bed. Patient observed laying down while eating and was provided education on the danger of choking while eating in that position. Patient oriented only to self at this time.
[2020-03-28 16:25] VITALS: BP 103/63
[2020-03-28] MEDS: LURASIDONE 40 MG TABLET. PO SCH (17:13)
--- NOTE | 2020-03-28 20:44 | PDOC ---
Exam Note: Julian Note: Please also refer to the separate dictated note~for this date of service dictated separately.~Patient seen individually. Discussed the patient with Nursing staff reviewed the chart.~Reviewed interim history and current functioning. Reviewed vital signs,~Labs/ Radiology~and current medications noted below. Continue current treatment with the changes noted in the dictated addendum note Assessment: Vital Signs/I&O: Vital Signs Date Time Temp Pulse Resp B/P (MAP) Pulse Ox O2 Delivery O2 Flow Rate FiO2 03/28/20 16:25 98.1 79 18 103/63 (76) 90 03/27/20 06:23 Room Air I & O 03/27/20 03/27/20 03/28/20 15:00 23:00 07:00 Intake Total 480 ml 120 ml 100 ml Balance 480 ml 120 ml 100 ml Current Medications: Meds: Current Medications Medications (Trade) Dose Ordered Sig/Bora Route PRN Reason Start Time Stop Time Status Last Admin Dose Admin Clozapine (Clozaril) 50 mg HS PO 03/27/20 21:00 03/27/20 20:08 I have reviewed the current psychotropics carefully including drug interactions. Risk benefit ratio favors no change other than as noted in my dictated progress note. Diagnosis: Problems: (1) Schizoaffective disorder, bipolar type (2) Tardive dyskinesia (3) Impulse control disorder, unspecified (4) Anxiety disorder, unspecified (5) Bipolar affective, mixed, sev w/ psych (6) Mild cognitive impairment KIERSTEN WATT MD Mar 28, 2020 20:44
[2020-03-28] MEDS: traZODone 50 MG TABLET. PO SCH (21:14)
[2020-03-28] MEDS: MIRTAZAPINE 7.5 MG TABLET. PO SCH (21:15)
[2020-03-28] MEDS: DOCUSATE SODIUM 100 MG CAPSULE PO SCH (21:15)
[2020-03-28] MEDS: SODIUM CHLORIDE 5% OPHTH OINTMENT 3.5GM TUBE. OU SCH (21:15)
[2020-03-28] MEDS: LEVOTHYROXINE 50 MCG TABLET PO SCH (21:15)
[2020-03-28] MEDS: ATORVASTATIN CALCIUM 20 MG TABLET PO SCH (21:15)
[2020-03-28] MEDS: cloZAPine 25 MG TABLET PO SCH (21:15)
--- NOTE | 2020-03-28 23:05 | NUR ---
Nursing note Pt in bed at shift change, has significant rhythmic movements, smacking her lips, turning her head, pulling at her eyebrows. Will not respond verbally, she lays in bed moving her mouth side to side, and seems to be suspicious of staff. Asked her where her eye drops go and she refused to answer me just staring at me . Med compliant and cooperative with assessment.
[2020-03-29 06:23] VITALS: BP 130/86
[2020-03-29] MEDS: AMANTADINE HCL 100 MG PO SCH (09:46)
[2020-03-29] MEDS: DOCUSATE SODIUM 100 MG CAPSULE PO SCH ×2 (09:46→20:21)
[2020-03-29] MEDS: MEMANTINE 10 MG TABLET. PO SCH ×2 (09:46→20:21)
[2020-03-29] MEDS: CYANOCOBALAMIN (VITAMIN B-12) 1,000 MCG TABLET. PO SCH (09:46)
[2020-03-29] MEDS: FUROSEMIDE 20 MG TABLET PO SCH (09:46)
[2020-03-29] MEDS: hydrOXYzine PAMOATE 25 MG CAPSULE PO SCH ×2 (09:46→20:22)
[2020-03-29] MEDS: prednisoLONE ACETATE 1% OPHTH SUSPENSION 5ML BOTTLE. OD SCH (09:47)
--- NOTE | 2020-03-29 10:53 | NUR ---
Bedside swallow evaluation completed. Please refer to full report in intervention section for additional information. Impressions: Moderate oropharyngeal dysphagia, with deficits being primarily oral stage r/t pt's extra-pyramidal type movements. Pt demonstrates increased control w/ honey thick liquids and puree and would benefit from these diet modifications. Possible s/s aspiration w/ one of the trials of thin liquid and one trial of soft solid likely due to poor bolus control. Recommendations: Dysphagia I diet w/ honey thick liquids. No straws, general swallow precautions. No additional ST f/u indicated at this time. D/w RN, swallow precaution sign provided to post.
--- NOTE | 2020-03-29 11:59 | NUR ---
Speech therapy consult was done today. Diet to remain pureed and Honey thick liquids. Signage posted in patient room.
--- NOTE | 2020-03-29 12:00 | NUR ---
Patient seems less distressed today and is no constantly running her hands through her hair and her eyebrows, her eyebrows do not look as red and irritated. Patient talking to this nurse during assessment but nurse was not able to determine what patient was attempting to say r/t patients expressive aphasia. Patients voice sounded high pitched and child like when patient was speaking to nurse. Patient compliant with medications given with honey thick orange juice. She is calm and cooperative, seems less agitated than on previous day. Patient withdrawn to room and laying in her bed.
[2020-03-29 16:29] VITALS: BP 117/72
[2020-03-29] MEDS: LURASIDONE 40 MG TABLET. PO SCH (17:18)
[2020-03-29] MEDS: traZODone 50 MG TABLET. PO SCH (20:21)
[2020-03-29] MEDS: ATORVASTATIN CALCIUM 20 MG TABLET PO SCH (20:21)
[2020-03-29] MEDS: MIRTAZAPINE 7.5 MG TABLET. PO SCH (20:21)
[2020-03-29] MEDS: cloZAPine 25 MG TABLET PO SCH (20:22)
[2020-03-29] MEDS: LEVOTHYROXINE 50 MCG TABLET PO SCH (20:22)
--- NOTE | 2020-03-29 20:42 | PDOC ---
Exam Note: Julian Note: Please also refer to the separate dictated note~for this date of service dictated separately.~Patient seen individually. Discussed the patient with Nursing staff reviewed the chart.~Reviewed interim history and current functioning. Reviewed vital signs,~Labs/ Radiology~and current medications noted below. Continue current treatment with the changes noted in the dictated addendum note Assessment: Vital Signs/I&O: Vital Signs Date Time Temp Pulse Resp B/P (MAP) Pulse Ox O2 Delivery O2 Flow Rate FiO2 03/29/20 16:29 98.3 83 18 117/72 (87) 92 03/29/20 06:23 Room Air I & O 03/28/20 03/28/20 03/29/20 14:59 22:59 06:59 Intake Total 685 ml 220 ml Balance 685 ml 220 ml Current Medications: Meds: Current Medications Medications (Trade) Dose Ordered Sig/Bora Route PRN Reason Start Time Stop Time Status Last Admin Dose Admin Docusate Sodium (Colace) 100 mg BID PO 03/28/20 21:00 03/29/20 20:21 I have reviewed the current psychotropics carefully including drug interactions. Risk benefit ratio favors no change other than as noted in my dictated progress note. Diagnosis: Problems: (1) Schizoaffective disorder, bipolar type (2) Tardive dyskinesia (3) Impulse control disorder, unspecified (4) Anxiety disorder, unspecified (5) Bipolar affective, mixed, sev w/ psych (6) Mild cognitive impairment KIERSTEN WATT MD Mar 29, 2020 20:42
[2020-03-29] MEDS: ESTRADIOL 0.01% VAGINAL CREAM 42.5GM TUBE. VG SCH (21:00)
[2020-03-29] MEDS: SODIUM CHLORIDE 5% OPHTH OINTMENT 3.5GM TUBE. OU SCH (21:00)
--- NOTE | 2020-03-30 04:21 | NUR ---
Nursing Note The patient was located in her room laying in bed when approached for her assessment and medications. The patient took her medication whole floated in vanilla pudding. The patient attempted to chew several of her medications. The patient was unable to answer her assessment questions. The patient is currently sleeping in her room.
[2020-03-30 05:52] VITALS: BP 127/80
--- NOTE | 2020-03-30 07:05 | PDOC ---
Exam Note: Julian Note: This note is a late entry for 03/28/2020 covers elements not covered in my initial note. Subjective: The patient was seen face to face in the evening of 03/28/2020 with Romelia MUÑOZ. Discussed with nursing staff, reviewed the chart. The patient slept 7-1/2 hours previous night. Diet has been changed to honey thickened and she needs assistance with being fed. At times she is able to make more coherent sentences but still withdrawn. Review of Systems: Ambulation impaired. No CV, , pulmonary, eye, ENT system symptoms on review. Mental Status Exam: Oriented to herself and situation. Speech is coherent. Abstraction fair. Computation impaired. Language function is intact. Mood and affect is withdrawn, anxious. Attention span is short. No suicidal or homicidal ideation. Laboratory Data: Reviewed. Impression: Tardive dyskinesia. Schizoaffective disorders bipolar type mixed with psychotic features. Anxiety disorder unspecified. Impulse control disorder unspecified. Plan: The patients Clozaril has been increased to 50 mg h.s. We will continue to increase 25 mg a day every week so long as her blood counts remain stable. We will consider Depakote or lithium as a mood stabilizer later. She is still pulling on her eyebrows, etc but less than before. Assessment: Vital Signs/I&O: Vital Signs Date Time Temp Pulse Resp B/P (MAP) Pulse Ox O2 Delivery O2 Flow Rate FiO2 03/30/20 05:52 98.2 84 20 127/80 (96) 94 Room Air I & O 03/29/20 03/29/20 03/30/20 15:00 23:00 07:00 Intake Total 325 ml 580 ml Balance 325 ml 580 ml Current Medications: I have reviewed the current psychotropics carefully including drug interactions. Risk benefit ratio favors no change other than as noted in my dictated progress note. Diagnosis: Problems: (1) Schizoaffective disorder, bipolar type (2) Tardive dyskinesia (3) Impulse control disorder, unspecified (4) Anxiety disorder, unspecified (5) Bipolar affective, mixed, sev w/ psych (6) Mild cognitive impairment KIERSTEN WATT MD Mar 30, 2020 07:05
[2020-03-30] MEDS: hydrOXYzine PAMOATE 25 MG CAPSULE PO SCH ×2 (08:41→20:16)
[2020-03-30] MEDS: prednisoLONE ACETATE 1% OPHTH SUSPENSION 5ML BOTTLE. OD SCH (08:41)
[2020-03-30] MEDS: FUROSEMIDE 20 MG TABLET PO SCH (08:41)
[2020-03-30] MEDS: MEMANTINE 10 MG TABLET. PO SCH ×2 (08:41→20:16)
[2020-03-30] MEDS: CYANOCOBALAMIN (VITAMIN B-12) 1,000 MCG TABLET. PO SCH (08:41)
[2020-03-30] MEDS: DOCUSATE SODIUM 100 MG CAPSULE PO SCH ×2 (08:41→20:17)
[2020-03-30] MEDS: AMANTADINE HCL 100 MG PO SCH (08:43)
--- NOTE | 2020-03-30 09:30 | NUR ---
Patient did not eat or drink anything at breakfast. She stated "not thickened" and spit the drinks out. She refused to eat the pureed food. Addendum: 03/30/20 at 1325 by NASREEN MONROE RN Nurse discussed patients refusal of pureed diet and thickened liquid during treatment team. Dr Pinzon stated that we need to monitor her labs. CMP entered for today. CBC was done 03/27.
--- NOTE | 2020-03-30 09:37 | NUR ---
Patient is not running her hands through her hair as much as she was on admission. Her eyebrows are less red and swollen, however she has a large lump on her forehead that looks inflamed. Will advise Doctor Ho about the lump on rounds. Patient is becoming resistive with medications, preferring to chew them rather than to drink the thickened liquids that speech has ordered. Patient initially would not sit up or take the medications from the nurse. Eventually she sat up and allowed the nurse to put the medications into her mouth with a spoon. She then refused to take a drink of the thickened juice. Patient eventually took a sip of the thickened juice, just enough to swallow the medications. Patient asked this nurse for ice water. As patient is not allowed to have ice in her thickened water, nurse brought her cold honey thick water. Patient sampled it and then spit it back into the cup and said "Not thickened!" and refused to drink any more water.
--- NOTE | 2020-03-30 11:49 | NUR ---
WEEKLY ACTIVITY THERAPY NOTE Date of Admission: 03/21 Date of AT Assessment: 03/23 Precipitating behaviors that initiated intake and admission: Manic, digging at hair and face, anxious, rambles, upper and lower body movements. Goal aimed: increase time management and stress management/relaxation skills Initial Goal: Pt will participate in at least one individual or group Activity Therapy session before discharge. Weekly progress towards goal: on track, 0/0 Group participation level: Zero Weekly highlights: assessed Pt. this week Behaviors observed: withdrawn to room, restless in bed, running fingers through hair, minimal communication with staff and no interaction with peers Plan: no change to goal Beneficial adaptations:
--- NOTE | 2020-03-30 13:22 | NUR ---
Patient did not eat lunch and drank minimally. She stated she will not eat "that food". Patient on pureed diet and honey thick liquids.
--- NOTE | 2020-03-30 13:28 | TX PLAN ---
Interdisciplinary Tx Plan Admission Information Mar 21, 2020 at 18:15 Legal Status (on Admission): Voluntary DPOA/Guardian Name: Hardik Smith Contact Other Contact Name: Joselito Other Contact Verified Code Status: Full Code Allergies: Coded Allergies: Benzodiazepines (Verified Allergy, Intermediate, Unknown, 12/29/17) clonazepam (Verified Allergy, Intermediate, Unknown, 12/29/17) lorazepam (Verified Allergy, Intermediate, Unknown, 12/29/17) lithium (Verified Allergy, Unknown, 03/20/20) Diagnoses Primary Diagnosis: Schizoaffective D/O, Bipolar type Reasons for Admission: Agitated, Sig. Change Sleep, Anxiety/Panic Problem in Patient's Words: They are trying to so many meds on her it's throwing her for a loop. Additional Admission Comments: According to the intake, pt is manic, digging at her hair and face, agitated, restless, insomnia, sporadic meal intake, anxious, rambling, causing harm to self Problems Active Problems: withdrawn restless anxious Tardive Dyskenesia Inactive Problems: medication compliant Pt Strengths/Limitations Ability for Bent: Poor Cognitive Functioning/Ability: Poor Communication Skills/Ability: Poor Financial Resources: Poor Insight/Judgement: Fair Intellectual Ability: Fair Physical Health: Poor Social Skills: Poor Stability in Family: Good Stability in School/Work: Poor Verbal Skills: Poor Discharge Criteria Discharge Criteria: No need for close observ., Adequate arrangements @DC, Impr yazmin behavior, Improved mood/thought Preliminary Discharge Plan Preliminary DC Plan: Current Living Arrange. Special Precautions Fall Risk: Moderate Initial D[facility] Identified Discharge Needs: At this time, it is unknown if pt will return to [facility] or not. Currently Utilized Resources Currently Utilized Resources/P: PCP Psychiatry/GENETIC ENGINEER Identified Problems/Hx/Goals Objectives/Short-Term Goals Short Term Goals: Dec. Anxiety/Panic, Decrease Isolation, Dec. Outbursts, Medication Stabilization, Monitor Med Effects, Promote Coping Skill Short Term Goals in Patient's: N/A Interventions/Frequency Staff Interventions/Frequency&: Psychiatrist to assess pt at least 3x per week for medication management. Social Work to assess pt at least 2x per week for discharge planning and assess any potential discharge barriers. Nursing to manage behaviors, assess medication effects, and complete 15 minute checks. Encourage participation in group activities (if applicable) or 1:1 engagement based off activity dept assessment. 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 Community Follow-up PCP Psychiatry Community Provider/Family Inpu: They are screwing up his medications. Treatment Plan Explained Patient/Vice President Of Engineering had this treatment plan explained to him/her as indicated by the signature below and has been given the opportunity to ask questions and make suggestions: Date: Patient/Vice President Of Engineering Signature: Status Update Update Pt was eating 75-100% however, pt was switched over to pureed and honey thickened liquids in which pt does not like them and is refusing to drink anything thickened. Pt is sleeping up to 8 hours on average. Pt has less tremors, is resistive to medications in which she is either chewing them or puts them in her mouth and spits them out in the cup. Pt is doing less hair and eyebrow pulling. At this time pt is on Namenda, Latuda, Vistaril, Clozaril and two sleep aides: Remeron and Trazodone. At this time, pt will return back to [facility] once stable. WILDA ROONEY Mar 30, 2020 13:28
[2020-03-30 15:14] LABS: ALBUMIN 3.3 g/dL (3.4-5.0); ALBUMIN/GLOBULIN RATIO 0.7 (1.0-1.7); CALCIUM 11.3 mg/dL (8.5-10.1); CREATININE 1.1 mg/dL (0.6-1.0); POTASSIUM 4.1 mmol/L (3.5-5.1); TOTAL BILIRUBIN 0.4 mg/dL (0.2-1.0); TOTAL PROTEIN 7.9 g/dL (6.4-8.2)
[2020-03-30 16:22] VITALS: BP 135/87
[2020-03-30] MEDS: LURASIDONE 40 MG TABLET. PO SCH (17:20)
--- NOTE | 2020-03-30 18:40 | NUR ---
Dr Pinzon said that if patient does not begin to eat and drink the current diet (pureed food/honey thick) nursing staff will need to contact speech and see if there is an alternative diet she can follow. He stated as her EPS is lessening so she might need a speech re-evaluation.
[2020-03-30] MEDS: MIRTAZAPINE 7.5 MG TABLET. PO SCH (20:16)
[2020-03-30] MEDS: LEVOTHYROXINE 50 MCG TABLET PO SCH (20:16)
[2020-03-30] MEDS: cloZAPine 25 MG TABLET PO SCH (20:16)
[2020-03-30] MEDS: SODIUM CHLORIDE 5% OPHTH OINTMENT 3.5GM TUBE. OU SCH (20:17)
[2020-03-30] MEDS: ATORVASTATIN CALCIUM 20 MG TABLET PO SCH (20:17)
[2020-03-30] MEDS: traZODone 50 MG TABLET. PO SCH (20:17)
--- NOTE | 2020-03-30 20:41 | PDOC ---
Exam Note: Julian Note: Please also refer to the separate dictated note~for this date of service dictated separately.~Patient seen individually. Discussed the patient with Nursing staff reviewed the chart.~Reviewed interim history and current functioning. Reviewed vital signs,~Labs/ Radiology~and current medications noted below. Continue current treatment with the changes noted in the dictated addendum note Assessment: Vital Signs/I&O: Vital Signs Date Time Temp Pulse Resp B/P (MAP) Pulse Ox O2 Delivery O2 Flow Rate FiO2 03/30/20 16:22 98.7 80 18 135/87 (103) 93 03/30/20 05:52 Room Air I & O 03/29/20 03/29/20 03/30/20 15:00 23:00 07:00 Intake Total 325 ml 580 ml Balance 325 ml 580 ml Labs: Laboratory Tests Test 03/30/20 14:51 Sodium Level 143 mmol/L (136-145) Potassium Level 4.1 mmol/L (3.5-5.1) Chloride Level 107 mmol/L (98-107) Carbon Dioxide Level 28 mmol/L (21-32) Anion Gap 8 (6-14) Blood Urea Nitrogen 14 mg/dL (7-20) Creatinine 1.1 mg/dL (0.6-1.0) H Estimated GFR (Cockcroft-Gault) 49.0 BUN/Creatinine Ratio 13 (6-20) Glucose Level 110 mg/dL (70-99) H Calcium Level 11.3 mg/dL (8.5-10.1) H Total Bilirubin 0.4 mg/dL (0.2-1.0) Aspartate Amino Transferase (AST) 15 U/L (15-37) Alanine Aminotransferase (ALT) 20 U/L (14-59) Alkaline Phosphatase 147 U/L (46-116) H Total Protein 7.9 g/dL (6.4-8.2) Albumin 3.3 g/dL (3.4-5.0) L Albumin/Globulin Ratio 0.7 (1.0-1.7) L Current Medications: I have reviewed the current psychotropics carefully including drug interactions. Risk benefit ratio favors no change other than as noted in my dictated progress note. Diagnosis: Problems: (1) Schizoaffective disorder, bipolar type (2) Tardive dyskinesia (3) Impulse control disorder, unspecified (4) Anxiety disorder, unspecified (5) Bipolar affective, mixed, sev w/ psych (6) Mild cognitive impairment KIERSTEN WATT MD Mar 30, 2020 20:41
--- NOTE | 2020-03-31 00:33 | NUR ---
Nursing Note The patient was calm and compliant with her medication and assessment. The patient was non verbal with the majority of the interaction but did attempt to speak to this nurse several times although her speech was mostly unintelligible. The patient took her medication crushed in pudding. The patient is currently sleeping in her room.
[2020-03-31 05:47] VITALS: BP 133/86
--- NOTE | 2020-03-31 08:35 | PDOC ---
Exam Note: Julian Note: This note is a late entry for 03/29/2020 covers elements not covered in my initial note. Subjective: The patient was seen face to face in the evening of 03/29/2020 with Romelia MUÑOZ. Discussed with nursing staff, reviewed the chart. The patient slept 8-1/4 hours previous night. She has been having less involuntary movements. She did have a speech therapy recommended and honey thickened liquids and soft diet. She has had less pulling off her eyebrows and there seem some slight healing of the lesions on her forehead from repeatedly pulling the eyebrows. The patient has been resistive to having the alter diet intake and I addressed this with her. Review of Systems: Ambulation impaired. No CV, , pulmonary, eye, ENT system symptoms on review. Involuntary movements are better. Mental Status Exam: Oriented to herself and situation. The patient spends much time in her bed. She was starting to make short sentences which is an improv ement, seemed slightly less psychotic. She seemed to be tolerating the increase of Clozaril to 50 mg h.s. Abstraction fair. Computation impaired. Language function is intact. Mood and affect is withdrawn, anxious. Attention span is short. No suicidal or homicidal ideation. Laboratory Data: Reviewed. Impression: Tardive dyskinesia. Schizoaffective disorders bipolar type mixed with psychotic features. Anxiety disorder unspecified. Impulse control disorder unspecified. Plan: We will continue to gradually increase the Clozaril weekly. Assessment: Vital Signs/I&O: Vital Signs Date Time Temp Pulse Resp B/P (MAP) Pulse Ox O2 Delivery O2 Flow Rate FiO2 03/31/20 05:47 98.0 77 16 133/86 (102) 92 Room Air I & O 03/30/20 03/30/20 03/31/20 15:00 23:00 07:00 Intake Total 440 ml 360 ml Balance 440 ml 360 ml Labs: Laboratory Tests Test 03/30/20 14:51 Sodium Level 143 mmol/L (136-145) Potassium Level 4.1 mmol/L (3.5-5.1) Chloride Level 107 mmol/L (98-107) Carbon Dioxide Level 28 mmol/L (21-32) Anion Gap 8 (6-14) Blood Urea Nitrogen 14 mg/dL (7-20) Creatinine 1.1 mg/dL (0.6-1.0) H Estimated GFR (Cockcroft-Gault) 49.0 BUN/Creatinine Ratio 13 (6-20) Glucose Level 110 mg/dL (70-99) H Calcium Level 11.3 mg/dL (8.5-10.1) H Total Bilirubin 0.4 mg/dL (0.2-1.0) Aspartate Amino Transferase (AST) 15 U/L (15-37) Alanine Aminotransferase (ALT) 20 U/L (14-59) Alkaline Phosphatase 147 U/L (46-116) H Total Protein 7.9 g/dL (6.4-8.2) Albumin 3.3 g/dL (3.4-5.0) L Albumin/Globulin Ratio 0.7 (1.0-1.7) L Current Medications: I have reviewed the current psychotropics carefully including drug interactions. Risk benefit ratio favors no change other than as noted in my dictated progress note. Diagnosis: Problems: (1) Schizoaffective disorder, bipolar type (2) Impulse control disorder, unspecified (3) Anxiety disorder, unspecified (4) Bipolar affective, mixed, sev w/ psych (5) Mild cognitive impairment (6) Tardive dyskinesia KIERSTEN WATT MD Mar 31, 2020 08:35
--- NOTE | 2020-03-31 08:37 | PDOC ---
Exam Note: Julian Note: This note is a late entry for 03/30/2020 covers elements not covered in my initial note. Subjective: The patient was reviewed on telehealth rounds in the morning of 03/30/2020 for treatment team meeting with Vale (social organization professor), Yasmin, activity therapy, and Romelia RN, because there was a patient who turned up positive for Covid-19 infection on the unit and the unit has been closed by the [facility] Department for any admissions or discharges once again. Discussed with nursing staff, reviewed the chart. She is refusing to eat or drink. Her creatinine has increased from 0.9 to 1.1 and alkaline phosphatase from 109 to 147. The patient had less ear pulling. Again therefore forehead lesion seemed to be healing. During the individual visit, we discussed her changed diet and I encouraged her to stay with this diet and have adequate oral intake at least for the next 3 days and then we can reassess the diet. She seemed to nod in acceptance of this. Review of Systems: Ambulation impaired. No CV, , pulmonary, eye, ENT system symptoms on review. Mental Status Exam: Oriented to herself and situation. Speech is coherent. Abstraction fair. Computation impaired. Language function is intact. Mood and affect is withdrawn, anxious. Attention span is short. No suicidal or homicidal ideation. Laboratory Data: Reviewed. Impression: Tardive dyskinesia. Schizoaffective disorders bipolar type mixed with psychotic features. Anxiety disorder unspecified. Impulse control disorder unspecified. Plan: We will continue to increase Clozaril by 25 mg a day every week and follow CBC and absolute neutrophil counts and adjust as clinically indicated. Rest unchanged. We may go ahead and stop the Latuda in due course as the Clozaril stabilizes. Assessment: Vital Signs/I&O: Vital Signs Date Time Temp Pulse Resp B/P (MAP) Pulse Ox O2 Delivery O2 Flow Rate FiO2 03/31/20 05:47 98.0 77 16 133/86 (102) 92 Room Air I & O 03/30/20 03/30/20 03/31/20 15:00 23:00 07:00 Intake Total 440 ml 360 ml Balance 440 ml 360 ml Labs: Laboratory Tests Test 03/30/20 14:51 Sodium Level 143 mmol/L (136-145) Potassium Level 4.1 mmol/L (3.5-5.1) Chloride Level 107 mmol/L (98-107) Carbon Dioxide Level 28 mmol/L (21-32) Anion Gap 8 (6-14) Blood Urea Nitrogen 14 mg/dL (7-20) Creatinine 1.1 mg/dL (0.6-1.0) H Estimated GFR (Cockcroft-Gault) 49.0 BUN/Creatinine Ratio 13 (6-20) Glucose Level 110 mg/dL (70-99) H Calcium Level 11.3 mg/dL (8.5-10.1) H Total Bilirubin 0.4 mg/dL (0.2-1.0) Aspartate Amino Transferase (AST) 15 U/L (15-37) Alanine Aminotransferase (ALT) 20 U/L (14-59) Alkaline Phosphatase 147 U/L (46-116) H Total Protein 7.9 g/dL (6.4-8.2) Albumin 3.3 g/dL (3.4-5.0) L Albumin/Globulin Ratio 0.7 (1.0-1.7) L Current Medications: I have reviewed the current psychotropics carefully including drug interactions. Risk benefit ratio favors no change other than as noted in my dictated progress note. Diagnosis: Problems: (1) Tardive dyskinesia (2) Impulse control disorder, unspecified (3) Anxiety disorder, unspecified (4) Bipolar affective, mixed, sev w/ psych (5) Mild cognitive impairment KIERSTEN WATT MD Mar 31, 2020 08:37
[2020-03-31] MEDS: CYANOCOBALAMIN (VITAMIN B-12) 1,000 MCG TABLET. PO SCH (09:05)
[2020-03-31] MEDS: AMANTADINE HCL 100 MG PO SCH (09:05)
[2020-03-31] MEDS: FUROSEMIDE 20 MG TABLET PO SCH (09:05)
[2020-03-31] MEDS: hydrOXYzine PAMOATE 25 MG CAPSULE PO SCH ×2 (09:05→19:59)
[2020-03-31] MEDS: MEMANTINE 10 MG TABLET. PO SCH ×2 (09:05→19:59)
[2020-03-31] MEDS: DOCUSATE SODIUM 100 MG CAPSULE PO SCH ×2 (09:05→19:58)
[2020-03-31] MEDS: prednisoLONE ACETATE 1% OPHTH SUSPENSION 5ML BOTTLE. OD SCH (09:05)
--- NOTE | 2020-03-31 13:23 | NUR ---
Nursing note: Pt laying in her bed when approached for AM med pass and assessment. She was compliant with meds crushed in pudding and cooperative with her assessment. Pt denies pain at time of assessment. Pt continues to refuse to eat or drink today. Will continue to monitor.
[2020-03-31 15:43] VITALS: BP 130/80
[2020-03-31] MEDS: LURASIDONE 40 MG TABLET. PO SCH (16:58)
[2020-03-31] MEDS: traZODone 50 MG TABLET. PO SCH (19:58)
[2020-03-31] MEDS: MIRTAZAPINE 7.5 MG TABLET. PO SCH (19:58)
[2020-03-31] MEDS: ATORVASTATIN CALCIUM 20 MG TABLET PO SCH (19:59)
[2020-03-31] MEDS: cloZAPine 25 MG TABLET PO SCH (19:59)
[2020-03-31] MEDS: LEVOTHYROXINE 50 MCG TABLET PO SCH (19:59)
[2020-03-31] MEDS: SODIUM CHLORIDE 5% OPHTH OINTMENT 3.5GM TUBE. OU SCH (19:59)
--- NOTE | 2020-03-31 20:51 | PDOC ---
Exam Note: Julian Note: Please also refer to the separate dictated note~for this date of service dictated separately.~Patient seen individually. Discussed the patient with Nursing staff reviewed the chart.~Reviewed interim history and current functioning. Reviewed vital signs,~Labs/ Radiology~and current medications noted below. Continue current treatment with the changes noted in the dictated addendum note Assessment: Vital Signs/I&O: Vital Signs Date Time Temp Pulse Resp B/P (MAP) Pulse Ox O2 Delivery O2 Flow Rate FiO2 03/31/20 15:43 97.2 92 18 130/80 (97) 97 Room Air I & O 03/30/20 03/30/20 03/31/20 15:00 23:00 07:00 Intake Total 440 ml 360 ml Balance 440 ml 360 ml Current Medications: I have reviewed the current psychotropics carefully including drug interactions. Risk benefit ratio favors no change other than as noted in my dictated progress note. Diagnosis: Problems: (1) Schizoaffective disorder, bipolar type (2) Tardive dyskinesia (3) Impulse control disorder, unspecified (4) Anxiety disorder, unspecified (5) Bipolar affective, mixed, sev w/ psych (6) Mild cognitive impairment KIERSTEN WATT MD Mar 31, 2020 20:51
[2020-03-31] MEDS: ESTRADIOL 0.01% VAGINAL CREAM 42.5GM TUBE. VG SCH (21:50)
--- NOTE | 2020-04-01 03:17 | NUR ---
Nursing Note The patient was calm and compliant with her medication and assessment. The patient took her medication crushed in pudding. The patient remained non verbal during interactions with this nurse this shift.
[2020-04-01 06:00] VITALS: BP 111/75
[2020-04-01 06:22] LABS: BILIRUBIN,URINE NEG (NEG); CLARITY,URINE CLOUDY; COLOR,URINE YELLOW; GLUCOSE,URINE NEG (NEG)
[2020-04-01 06:23] LABS: BACTERIA,URINE MOD /HPF (0-FEW); NITRITE,URINE NEG (NEG); RBC,URINE OCC /HPF (0-2); SQUAMOUS EPITHELIAL CELL,UR FEW /LPF
[2020-04-01 08:23] LABS: ALBUMIN 3.4 g/dL (3.4-5.0); ALBUMIN/GLOBULIN RATIO 0.7 (1.0-1.7); CALCIUM 11.3 mg/dL (8.5-10.1); CREATININE 1.1 mg/dL (0.6-1.0); POTASSIUM 4.2 mmol/L (3.5-5.1); TOTAL BILIRUBIN 0.5 mg/dL (0.2-1.0); TOTAL PROTEIN 8.1 g/dL (6.4-8.2)
[2020-04-01] MEDS: MEMANTINE 10 MG TABLET. PO SCH ×2 (08:50→21:12)
[2020-04-01] MEDS: FUROSEMIDE 20 MG TABLET PO SCH (08:50)
[2020-04-01] MEDS: DOCUSATE SODIUM 100 MG CAPSULE PO SCH ×2 (08:50→21:12)
[2020-04-01] MEDS: CYANOCOBALAMIN (VITAMIN B-12) 1,000 MCG TABLET. PO SCH (08:50)
[2020-04-01] MEDS: hydrOXYzine PAMOATE 25 MG CAPSULE PO SCH ×2 (08:50→21:13)
[2020-04-01] MEDS: prednisoLONE ACETATE 1% OPHTH SUSPENSION 5ML BOTTLE. OD SCH (08:50)
[2020-04-01] MEDS: AMANTADINE HCL 100 MG PO SCH (08:53)
--- NOTE | 2020-04-01 11:27 | NUR ---
Nursing note: Pt in her room at time of AM assessment and med pass. She is calm, compliant with meds crushed in pudding and cooperative with her assessment. Shortly after interaction, she did yell out a couple of times, but was easily redirected. She has been laying quietly in her bed since. Pt daughter, Ava, called and update provided. Will continue to monitor.
[2020-04-01] MEDS: LURASIDONE 40 MG TABLET. PO SCH (15:54)
[2020-04-01 15:57] VITALS: BP 120/84
--- NOTE | 2020-04-01 20:59 | PDOC ---
Exam Note: Julian Note: Please also refer to the separate dictated note~for this date of service dictated separately.~Patient seen individually. Discussed the patient with Nursing staff reviewed the chart.~Reviewed interim history and current functioning. Reviewed vital signs,~Labs/ Radiology~and current medications noted below. Continue current treatment with the changes noted in the dictated addendum note Assessment: Vital Signs/I&O: Vital Signs Date Time Temp Pulse Resp B/P (MAP) Pulse Ox O2 Delivery O2 Flow Rate FiO2 04/01/20 15:57 98.6 84 16 120/84 (96) 95 Room Air I & O 03/31/20 03/31/20 04/01/20 15:00 23:00 07:00 Intake Total 360 ml 820 ml Balance 360 ml 820 ml Labs: Laboratory Tests Test 04/01/20 05:15 04/01/20 07:58 Urine Collection Type Unknown Urine Color Yellow Urine Clarity Cloudy Urine pH 5.5 Urine Specific [place] >=1.030 Urine Protein Neg (NEG-TRACE) Urine Glucose (UA) Neg mg/dL (NEG) Urine Ketones (Stick) Neg mg/dL (NEG) Urine Blood Neg (NEG) Urine Nitrite Neg (NEG) Urine Bilirubin Neg (NEG) Urine Urobilinogen Dipstick 1.0 mg/dL (0.2 mg/dL) Urine Leukocyte Esterase Trace (NEG) Urine RBC Occ /HPF (0-2) Urine WBC 11-20 /HPF (0-4) Urine Squamous Epithelial Cells Few /LPF Urine Bacteria Mod /HPF (0-FEW) Urine Mucus Mod /LPF Sodium Level 145 mmol/L (136-145) Potassium Level 4.2 mmol/L (3.5-5.1) Chloride Level 107 mmol/L (98-107) Carbon Dioxide Level 31 mmol/L (21-32) Anion Gap 7 (6-14) Blood Urea Nitrogen 21 mg/dL (7-20) H Creatinine 1.1 mg/dL (0.6-1.0) H Estimated GFR (Cockcroft-Gault) 49.0 BUN/Creatinine Ratio 19 (6-20) Glucose Level 123 mg/dL (70-99) H Calcium Level 11.3 mg/dL (8.5-10.1) H Total Bilirubin 0.5 mg/dL (0.2-1.0) Aspartate Amino Transferase (AST) 16 U/L (15-37) Alanine Aminotransferase (ALT) 18 U/L (14-59) Alkaline Phosphatase 148 U/L (46-116) H Total Protein 8.1 g/dL (6.4-8.2) Albumin 3.4 g/dL (3.4-5.0) Albumin/Globulin Ratio 0.7 (1.0-1.7) L Current Medications: I have reviewed the current psychotropics carefully including drug interactions. Risk benefit ratio favors no change other than as noted in my dictated progress note. Diagnosis: Problems: (1) Schizoaffective disorder, bipolar type (2) Tardive dyskinesia (3) Impulse control disorder, unspecified (4) Anxiety disorder, unspecified (5) Bipolar affective, mixed, sev w/ psych (6) Mild cognitive impairment KIERSTEN WATT MD Apr 01, 2020 20:59
[2020-04-01] MEDS: SODIUM CHLORIDE 5% OPHTH OINTMENT 3.5GM TUBE. OU SCH (21:00)
[2020-04-01] MEDS: LEVOTHYROXINE 50 MCG TABLET PO SCH (21:12)
[2020-04-01] MEDS: ATORVASTATIN CALCIUM 20 MG TABLET PO SCH (21:12)
[2020-04-01] MEDS: MIRTAZAPINE 7.5 MG TABLET. PO SCH (21:12)
[2020-04-01] MEDS: traZODone 50 MG TABLET. PO SCH (21:13)
[2020-04-01] MEDS: cloZAPine 25 MG TABLET PO SCH (21:13)
--- NOTE | 2020-04-01 23:56 | NUR ---
Pt located in her bed all evening. When approached, pt sat up and acknowledged this RN. Pt appears less distressed and less anxious. Pt continues to be nonverbal, communicating by shaking her head. Compliant with whole medications with thickened liquid.
[2020-04-02 05:40] VITALS: BP 147/92
[2020-04-02] MEDS: prednisoLONE ACETATE 1% OPHTH SUSPENSION 5ML BOTTLE. OD SCH (08:23)
[2020-04-02] MEDS: hydrOXYzine PAMOATE 25 MG CAPSULE PO SCH ×2 (08:23→20:51)
[2020-04-02] MEDS: AMANTADINE HCL 100 MG PO SCH (08:23)
[2020-04-02] MEDS: DOCUSATE SODIUM 100 MG CAPSULE PO SCH ×2 (08:23→20:51)
[2020-04-02] MEDS: FUROSEMIDE 20 MG TABLET PO SCH (08:23)
[2020-04-02] MEDS: MEMANTINE 10 MG TABLET. PO SCH ×2 (08:23→20:51)
[2020-04-02] MEDS: CYANOCOBALAMIN (VITAMIN B-12) 1,000 MCG TABLET. PO SCH (08:23)
--- NOTE | 2020-04-02 09:58 | NUR ---
Patient quiet and with drawn. Patient difficult to understand. patient complaint with medication and assessment.
[2020-04-02 16:12] VITALS: BP 94/60
[2020-04-02] MEDS: LURASIDONE 40 MG TABLET. PO SCH (17:17)
--- NOTE | 2020-04-02 20:50 | PDOC ---
Exam Note: Julian Note: This note is a late entry for 03/31/2020 covers elements not covered in my initial note. Subjective: The patient was reviewed on telehealth rounds in the evening of 03/31/2020 with Adithya MUÑOZ. Discussed with nursing staff, reviewed the chart. She slept 8 hours previous night. She takes her meds crushed in pudding. She is refusing to ear the pureed diet and ordering the thickened liquids and I encouraged her to do this. She seemed to nod as if accepting it. She may have UTI and we are checking her UA and we will repeat CMP in the morning to check for dehydration. She took her meds in Jell-O in the evening. Review of Systems: Ambulation impaired. No CV, , pulmonary, eye, ENT system symptoms on review. Mental Status Exam: Oriented to herself and situation. She is not very verbally interactive but her general body movements are better. Speech is coherent. Abstraction fair. Computation impaired. Language function is intact. Mood and affect is withdrawn, anxious. Attention span is short. She is pulling on her hair and eyebrows less. No suicidal or homicidal ideation. Laboratory Data: Reviewed. Impression: Tardive dyskinesia. Schizoaffective disorders bipolar type mixed with psychotic features. Anxiety disorder unspecified. Impulse control disorder unspecified. Plan: We will continue to gradually increase the Clozaril while monitoring her blood counts. Assessment: Vital Signs/I&O: Vital Signs Date Time Temp Pulse Resp B/P (MAP) Pulse Ox O2 Delivery O2 Flow Rate FiO2 04/02/20 16:12 97.4 94 22 94/60 (71) 100 04/01/20 15:57 Room Air I & O 04/01/20 04/01/20 04/02/20 15:00 23:00 07:00 Intake Total 600 ml 480 ml Balance 600 ml 480 ml Current Medications: I have reviewed the current psychotropics carefully including drug interactions. Risk benefit ratio favors no change other than as noted in my dictated progress note. Diagnosis: Problems: (1) Tardive dyskinesia (2) Schizoaffective disorder, bipolar type (3) Impulse control disorder, unspecified (4) Anxiety disorder, unspecified (5) Bipolar affective, mixed, sev w/ psych (6) Mild cognitive impairment KIERSTEN WATT MD Apr 02, 2020 20:50
[2020-04-02] MEDS: MIRTAZAPINE 7.5 MG TABLET. PO SCH (20:51)
[2020-04-02] MEDS: LEVOTHYROXINE 50 MCG TABLET PO SCH (20:51)
[2020-04-02] MEDS: ATORVASTATIN CALCIUM 20 MG TABLET PO SCH (20:51)
[2020-04-02] MEDS: cloZAPine 25 MG TABLET PO SCH (20:52)
[2020-04-02] MEDS: traZODone 50 MG TABLET. PO SCH (20:52)
[2020-04-02] MEDS: SODIUM CHLORIDE 5% OPHTH OINTMENT 3.5GM TUBE. OU SCH (20:53)
--- NOTE | 2020-04-02 21:07 | PDOC ---
Exam Note: Julian Note: This note is a late entry for 04/01/2020 covers elements not covered in my initial note. Subjective: The patient was reviewed on telehealth rounds in the evening of 04/01/2020 with Cherie MUÑOZ. Discussed with nursing staff, reviewed the chart. She slept 6-1/4 hours previous night. She continues to have dyskinetic movements of her body but less so than before. Per nursing report this may be one reason she is having difficulty with swallowing and eating. We will repeat CBC, CMP, every 2 days to monitor for impending dehydration. Review of Systems: Ambulation impaired. No CV, , pulmonary, eye, ENT system symptoms on review. Mental Status Exam: Oriented to herself and situation. She is not very verbally interactive, just staring at me, occasionally nodding, affirmative and she agreed to increase her oral intake as I discussed this with her. She seems less paranoid, somewhat distractible. Speech is coherent. Abstraction fair. Computation impaired. Language function is intact. Mood and affect is withdrawn, anxious. Attention span is short. No suicidal or homicidal ideation. Laboratory Data: Reviewed. Impression: Tardive dyskinesia. Schizoaffective disorders bipolar type mixed with psychotic features. Anxiety disorder unspecified. Impulse control disorder unspecified. Plan: We will gradually increase the Clozaril depending on how her blood counts are on Friday. Assessment: Vital Signs/I&O: Vital Signs Date Time Temp Pulse Resp B/P (MAP) Pulse Ox O2 Delivery O2 Flow Rate FiO2 04/02/20 16:12 97.4 94 22 94/60 (71) 100 04/01/20 15:57 Room Air I & O 04/01/20 04/01/20 04/02/20 14:59 22:59 06:59 Intake Total 600 ml 480 ml Balance 600 ml 480 ml Current Medications: I have reviewed the current psychotropics carefully including drug interactions. Risk benefit ratio favors no change other than as noted in my dictated progress note. Diagnosis: Problems: (1) Schizoaffective disorder, bipolar type (2) Tardive dyskinesia (3) Impulse control disorder, unspecified (4) Anxiety disorder, unspecified (5) Bipolar affective, mixed, sev w/ psych (6) Mild cognitive impairment KIERSTEN WATT MD Apr 02, 2020 21:06
--- NOTE | 2020-04-02 21:21 | PDOC ---
Exam Note: Julian Note: Please also refer to the separate dictated note~for this date of service dictated separately.~Patient seen individually. Discussed the patient with Nursing staff reviewed the chart.~Reviewed interim history and current functioning. Reviewed vital signs,~Labs/ Radiology~and current medications noted below. Continue current treatment with the changes noted in the dictated addendum note Assessment: Vital Signs/I&O: Vital Signs Date Time Temp Pulse Resp B/P (MAP) Pulse Ox O2 Delivery O2 Flow Rate FiO2 04/02/20 16:12 97.4 94 22 94/60 (71) 100 04/01/20 15:57 Room Air I & O 04/01/20 04/01/20 04/02/20 14:59 22:59 06:59 Intake Total 600 ml 480 ml Balance 600 ml 480 ml Current Medications: I have reviewed the current psychotropics carefully including drug interactions. Risk benefit ratio favors no change other than as noted in my dictated progress note. Diagnosis: Problems: (1) Schizoaffective disorder, bipolar type (2) Tardive dyskinesia (3) Impulse control disorder, unspecified (4) Anxiety disorder, unspecified (5) Bipolar affective, mixed, sev w/ psych (6) Mild cognitive impairment KIERSTEN WATT MD Apr 02, 2020 21:21
--- NOTE | 2020-04-02 22:56 | NUR ---
Pt laying in bed all evening. Pt calm and pleasant when approached. Pt slightly resistive with taking her HS medications, asking "what are all of these" and "why do I have to take them?" Pt eventually compliant and went back to sleep.
[2020-04-03 06:01] VITALS: BP 137/80
[2020-04-03 06:58] LABS: BASO % 1 % (0-3); EOS # 0.2 x10^3/uL (0.0-0.7); EOS % 3 % (0-3); HEMATOCRIT 42.8 % (36.0-47.0); LYMPH # 2.4 x10^3/uL (1.0-4.8); LYMPH % 35 % (24-48); MEAN CORPUSCULAR HEMOGLOBIN 28 pg (25-35); MEAN CORPUSCULAR HGB CONC 33 g/dL (31-37); MEAN CORPUSCULAR VOLUME 85 fL (79-100); MONO # 0.5 x10^3/uL (0.0-1.1); MONO % 8 % (0-9); NEUT # 3.7 x10^3uL (1.8-7.7); NEUT % 54 % (31-73); PLATELET COUNT 264 x10^3/uL (140-400); RED BLOOD COUNT 5.03 x10^6/uL (3.50-5.40); RED CELL DISTRIBUTION WIDTH 14.8 % (11.5-14.5); WHITE BLOOD COUNT 6.8 x10^3/uL (4.0-11.0)
[2020-04-03 07:29] LABS: ALBUMIN 3.4 g/dL (3.4-5.0); ALBUMIN/GLOBULIN RATIO 0.7 (1.0-1.7); CALCIUM 11.1 mg/dL (8.5-10.1); GFR 54.7; POTASSIUM 3.8 mmol/L (3.5-5.1); TOTAL BILIRUBIN 0.5 mg/dL (0.2-1.0)
[2020-04-03] MEDS: MEMANTINE 10 MG TABLET. PO SCH ×2 (08:24→20:42)
[2020-04-03] MEDS: CYANOCOBALAMIN (VITAMIN B-12) 1,000 MCG TABLET. PO SCH (08:24)
[2020-04-03] MEDS: AMANTADINE HCL 100 MG PO SCH (08:24)
[2020-04-03] MEDS: DOCUSATE SODIUM 100 MG CAPSULE PO SCH ×2 (08:24→20:42)
[2020-04-03] MEDS: hydrOXYzine PAMOATE 25 MG CAPSULE PO SCH ×2 (08:24→20:43)
[2020-04-03] MEDS: FUROSEMIDE 20 MG TABLET PO SCH (08:24)
[2020-04-03] MEDS: prednisoLONE ACETATE 1% OPHTH SUSPENSION 5ML BOTTLE. OD SCH (08:25)
--- NOTE | 2020-04-03 10:11 | NUR ---
Nursing note: Pt laying in her bed at time of AM med pass and assessment. She was compliant with meds crushed in pudding and cooperative with her assessment. When told good morning, pt responded by saying "good morning". Pt was allowed to go back to sleep afterwards. She is currently sleeping in her bed. Will continue to monitor.
--- NOTE | 2020-04-03 13:38 | NUR ---
ROSALINE sent updates to ROSALINE Ewing at [facility]. ROSALINE will continue to be in contact with [facility] re: pt and potential discharge return to them within the next week or so.
[2020-04-03 15:56] VITALS: BP 132/84
--- NOTE | 2020-04-03 16:25 | NUR ---
ROSALINE received call from Hardik, pt , who wanted an update on how pt was doing and discussed wanting to make sure pt was doing okay with her medication. Hardik reports that pt does well when you go over medications with her and explain each one. "but you guys know that because she's been there multiple times". ROSALINE informed Hardik that pt is getting better and her main medication will be Clozaril, which will be increased weekly until the psychiatrist feels it is therapeutic. Hardik's greatest concern is making sure that pt medications will be maintained at [facility].
[2020-04-03] MEDS: LURASIDONE 40 MG TABLET. PO SCH (17:03)
[2020-04-03] MEDS: LEVOTHYROXINE 50 MCG TABLET PO SCH (20:42)
[2020-04-03] MEDS: ATORVASTATIN CALCIUM 20 MG TABLET PO SCH (20:42)
[2020-04-03] MEDS: MIRTAZAPINE 7.5 MG TABLET. PO SCH (20:42)
--- NOTE | 2020-04-03 20:42 | PDOC ---
Exam Note: Julian Note: Please also refer to the separate dictated note~for this date of service dictated separately.~Patient seen individually. Discussed the patient with Nursing staff reviewed the chart.~Reviewed interim history and current functioning. Reviewed vital signs,~Labs/ Radiology~and current medications noted below. Continue current treatment with the changes noted in the dictated addendum note Assessment: Vital Signs/I&O: Vital Signs Date Time Temp Pulse Resp B/P (MAP) Pulse Ox O2 Delivery O2 Flow Rate FiO2 04/03/20 15:56 97.1 95 16 132/84 (100) 97 04/01/20 15:57 Room Air I & O 04/02/20 04/02/20 04/03/20 15:00 23:00 07:00 Intake Total 480 ml 220 ml Balance 480 ml 220 ml Labs: Laboratory Tests Test 04/03/20 06:18 White Blood Count 6.8 x10^3/uL (4.0-11.0) Red Blood Count 5.03 x10^6/uL (3.50-5.40) Hemoglobin 14.0 g/dL (12.0-15.5) Hematocrit 42.8 % (36.0-47.0) Mean Corpuscular Volume 85 fL (79-100) Mean Corpuscular Hemoglobin 28 pg (25-35) Mean Corpuscular Hemoglobin Concent 33 g/dL (31-37) Red Cell Distribution Width 14.8 % (11.5-14.5) H Platelet Count 264 x10^3/uL (140-400) Neutrophils (%) (Auto) 54 % (31-73) Lymphocytes (%) (Auto) 35 % (24-48) Monocytes (%) (Auto) 8 % (0-9) Eosinophils (%) (Auto) 3 % (0-3) Basophils (%) (Auto) 1 % (0-3) Neutrophils # (Auto) 3.7 x10^3uL (1.8-7.7) Lymphocytes # (Auto) 2.4 x10^3/uL (1.0-4.8) Monocytes # (Auto) 0.5 x10^3/uL (0.0-1.1) Eosinophils # (Auto) 0.2 x10^3/uL (0.0-0.7) Basophils # (Auto) 0.0 x10^3/uL (0.0-0.2) Sodium Level 146 mmol/L (136-145) H Potassium Level 3.8 mmol/L (3.5-5.1) Chloride Level 107 mmol/L (98-107) Carbon Dioxide Level 29 mmol/L (21-32) Anion Gap 10 (6-14) Blood Urea Nitrogen 18 mg/dL (7-20) Creatinine 1.0 mg/dL (0.6-1.0) Estimated GFR (Cockcroft-Gault) 54.7 BUN/Creatinine Ratio 18 (6-20) Glucose Level 114 mg/dL (70-99) H Calcium Level 11.1 mg/dL (8.5-10.1) H Total Bilirubin 0.5 mg/dL (0.2-1.0) Aspartate Amino Transferase (AST) 16 U/L (15-37) Alanine Aminotransferase (ALT) 19 U/L (14-59) Alkaline Phosphatase 143 U/L (46-116) H Total Protein 8.0 g/dL (6.4-8.2) Albumin 3.4 g/dL (3.4-5.0) Albumin/Globulin Ratio 0.7 (1.0-1.7) L Current Medications: I have reviewed the current psychotropics carefully including drug interactions. Risk benefit ratio favors no change other than as noted in my dictated progress note. Diagnosis: Problems: (1) Schizoaffective disorder, bipolar type (2) Tardive dyskinesia (3) Impulse control disorder, unspecified (4) Anxiety disorder, unspecified (5) Bipolar affective, mixed, sev w/ psych (6) Mild cognitive impairment KIERSTEN WATT MD Apr 03, 2020 20:42
[2020-04-03] MEDS: traZODone 50 MG TABLET. PO SCH (20:43)
[2020-04-03] MEDS: SODIUM CHLORIDE 5% OPHTH OINTMENT 3.5GM TUBE. OU SCH (20:44)
[2020-04-03] MEDS: cloZAPine 25 MG TABLET PO SCH (20:44)
[2020-04-03] MEDS: ESTRADIOL 0.01% VAGINAL CREAM 42.5GM TUBE. VG SCH (20:45)
--- NOTE | 2020-04-03 23:35 | NUR ---
Pt laying in bed all evening. Pt more verbal and less anxious than previous evenings. Pt highly resistive to taking medications and required much coaxing tonight. Pt eventually compliant and went back to sleep.
[2020-04-04 06:30] VITALS: BP 128/85
--- NOTE | 2020-04-04 07:39 | PDOC ---
Exam Note: Julian Note: This note is a late entry for 04/02/2020 covers elements not covered in my initial note. Subjective: The patient was reviewed on telehealth rounds in the evening of 04/02/2020 with Giovani MUÑOZ. Discussed with Giovani MUÑOZ, reviewed the chart. She slept 8-1/4 hours previous night. The patients appetite remains poor as she dislikes thickened liquids and pureed diet but she has been calmer. She has been spending much time lying in bed in her room. We will be repeating labs on the to monitor for dehydration due to poor oral intake. Review of Systems: Ambulation impaired. No CV, , pulmonary, eye, ENT system symptoms on review. Mental Status Exam: Oriented to herself and situation. The patient was just a little more verbal during the visit. Speech is coherent. Abstraction fair. Computation impaired. Language function is intact. Mood and affect is withdrawn, anxious. Attention span is short. No suicidal or homicidal ideation , less pulling off her eyebrows and skin off the forehead. Laboratory Data: Reviewed. Impression: Tardive dyskinesia. Schizoaffective disorders bipolar type mixed with psychotic features. Anxiety disorder unspecified. Impulse control disorder unspecified. Plan: Continue to gradually increase the Clozaril as tolerated. Rest unchanged. Assessment: Vital Signs/I&O: Vital Signs Date Time Temp Pulse Resp B/P (MAP) Pulse Ox O2 Delivery O2 Flow Rate FiO2 04/04/20 06:30 97.8 88 16 128/85 (99) 94 04/01/20 15:57 Room Air I & O 04/03/20 04/03/20 04/04/20 15:00 23:00 07:00 Intake Total 960 ml 340 ml Balance 960 ml 340 ml Current Medications: Meds: Current Medications Medications (Trade) Dose Ordered Sig/Bora Route PRN Reason Start Time Stop Time Status Last Admin Dose Admin Clozapine (Clozaril) 75 mg HS PO 04/03/20 21:00 04/03/20 20:44 I have reviewed the current psychotropics carefully including drug interactions. Risk benefit ratio favors no change other than as noted in my dictated progress note. Diagnosis: Problems: (1) Schizoaffective disorder, bipolar type (2) Tardive dyskinesia (3) Impulse control disorder, unspecified (4) Anxiety disorder, unspecified (5) Bipolar affective, mixed, sev w/ psych (6) Mild cognitive impairment KIERSTEN WATT MD Apr 04, 2020 07:39
--- NOTE | 2020-04-04 08:00 | PDOC ---
Exam Note: Julian Note: This note is a late entry for 04/03/2020 covers elements not covered in my initial note. Subjective: The patient was seen face to face in the evening of 04/03/2020 with Renetta MUÑOZ. Discussed with nursing staff, reviewed the chart. She slept 8-1/2 hours previous night. She had a good morning, took her meds, crushed in pudding. Absolute neutrophil count 3672 and we will increase Clozaril to 75 mg p.o. h.s. Her whole body movements and tremors are little improved. Review of Systems: Ambulation impaired. No CV, , pulmonary, eye, ENT system symptoms on review. Mental Status Exam: Oriented to herself and situation. She is not very verbally interactive, somewhat withdrawn, still eye contact is better, less pulling off her hair on her face and scalp and eyebrows. Speech is coherent. Abstraction fair. Computation impaired. Language function is intact. Mood and affect is withdrawn, anxious. Attention span is short. No suicidal or homicidal ideation. Laboratory Data: Reviewed. Impression: Tardive dyskinesia. Schizoaffective disorders bipolar type mixed with psychotic features. Anxiety disorder unspecified. Impulse control disorder unspecified. Plan: We will increase the Clozaril to 75 mg h.s. Assessment: Vital Signs/I&O: Vital Signs Date Time Temp Pulse Resp B/P (MAP) Pulse Ox O2 Delivery O2 Flow Rate FiO2 04/04/20 06:30 97.8 88 16 128/85 (99) 94 04/01/20 15:57 Room Air I & O 04/03/20 04/03/20 04/04/20 15:00 23:00 07:00 Intake Total 960 ml 340 ml Balance 960 ml 340 ml Current Medications: Meds: Current Medications Medications (Trade) Dose Ordered Sig/Bora Route PRN Reason Start Time Stop Time Status Last Admin Dose Admin Clozapine (Clozaril) 75 mg HS PO 04/03/20 21:00 04/03/20 20:44 I have reviewed the current psychotropics carefully including drug interactions. Risk benefit ratio favors no change other than as noted in my dictated progress note. Diagnosis: Problems: (1) Schizoaffective disorder, bipolar type (2) Tardive dyskinesia (3) Impulse control disorder, unspecified (4) Anxiety disorder, unspecified (5) Bipolar affective, mixed, sev w/ psych (6) Mild cognitive impairment KIERSTEN WATT MD Apr 04, 2020 08:00
[2020-04-04] MEDS: FUROSEMIDE 20 MG TABLET PO SCH ×2 (08:36→09:00)
[2020-04-04] MEDS: hydrOXYzine PAMOATE 25 MG CAPSULE PO SCH ×2 (08:36→20:02)
[2020-04-04] MEDS: prednisoLONE ACETATE 1% OPHTH SUSPENSION 5ML BOTTLE. OD SCH (08:36)
[2020-04-04] MEDS: DOCUSATE SODIUM 100 MG CAPSULE PO SCH ×3 (08:36→20:02)
[2020-04-04] MEDS: CYANOCOBALAMIN (VITAMIN B-12) 1,000 MCG TABLET. PO SCH ×2 (08:36→09:00)
[2020-04-04] MEDS: MEMANTINE 10 MG TABLET. PO SCH ×2 (08:36→20:02)
[2020-04-04] MEDS: AMANTADINE HCL 100 MG PO SCH ×2 (08:36→09:00)
--- NOTE | 2020-04-04 09:27 | NUR ---
Nursing note: Pt in her room at time of AM med pass and assessment. She is resistive with taking her meds. They were attempted to be given crushed in a bite of pudding. Pt spit the pudding out of her mouth. Psych meds were repulled and crushed and mixed with her gatorade. Pt took one sip and put the lid back on handing it back to this nurse saying "I don't like it". Pt refused to drink anymore. Will attempt again a little later. She is currently back to sleep in her bed. Will continue to monitor. Addendum: 04/04/20 at 1639 by MERA WOOTEN RN RN Pt was eventually compliant in drinking the rest of her gatorade with crushed meds.
[2020-04-04 15:35] VITALS: BP 122/83
[2020-04-04] MEDS: LURASIDONE 40 MG TABLET. PO SCH (17:10)
[2020-04-04] MEDS: ATORVASTATIN CALCIUM 20 MG TABLET PO SCH (20:02)
[2020-04-04] MEDS: MIRTAZAPINE 7.5 MG TABLET. PO SCH (20:02)
[2020-04-04] MEDS: traZODone 50 MG TABLET. PO SCH (20:03)
[2020-04-04] MEDS: LEVOTHYROXINE 50 MCG TABLET PO SCH (20:03)
[2020-04-04] MEDS: SODIUM CHLORIDE 5% OPHTH OINTMENT 3.5GM TUBE. OU SCH (20:03)
[2020-04-04] MEDS: cloZAPine 25 MG TABLET PO SCH (20:03)
--- NOTE | 2020-04-04 20:57 | PDOC ---
Exam Note: Julian Note: Please also refer to the separate dictated note~for this date of service dictated separately.~Patient seen individually. Discussed the patient with Nursing staff reviewed the chart.~Reviewed interim history and current functioning. Reviewed vital signs,~Labs/ Radiology~and current medications noted below. Continue current treatment with the changes noted in the dictated addendum note Assessment: Vital Signs/I&O: Vital Signs Date Time Temp Pulse Resp B/P (MAP) Pulse Ox O2 Delivery O2 Flow Rate FiO2 04/04/20 15:35 97.6 72 18 122/83 (96) 96 04/01/20 15:57 Room Air I & O 04/03/20 04/03/20 04/04/20 15:00 23:00 07:00 Intake Total 960 ml 340 ml Balance 960 ml 340 ml Current Medications: Meds: Current Medications Medications (Trade) Dose Ordered Sig/Bora Route PRN Reason Start Time Stop Time Status Last Admin Dose Admin Clozapine (Clozaril) 75 mg HS PO 04/03/20 21:00 04/04/20 20:03 I have reviewed the current psychotropics carefully including drug interactions. Risk benefit ratio favors no change other than as noted in my dictated progress note. Diagnosis: Problems: (1) Schizoaffective disorder, bipolar type (2) Tardive dyskinesia (3) Impulse control disorder, unspecified (4) Anxiety disorder, unspecified (5) Bipolar affective, mixed, sev w/ psych (6) Mild cognitive impairment KIERSTEN WATT MD Apr 04, 2020 20:57
--- NOTE | 2020-04-04 21:31 | NUR ---
Nursing Note Pt in bed yelling intermittently. Pt talking and has both sides of the conversation, using 2 different voices. When questioned what she is saying or who she is talking to pt stops and stares at staff and refuses to respond. She screamed quite loudly and the DATABASE MANAGEMENT SPECIALIST's asked her why she was screaming and she stated "I wasn't". Pt has significant mouth movements and teeth clenching. Stares at staff suspiciously.
[2020-04-05 06:30] VITALS: BP 149/80
[2020-04-05] MEDS: DOCUSATE SODIUM 100 MG CAPSULE PO SCH ×2 (07:14→19:52)
[2020-04-05] MEDS: FUROSEMIDE 20 MG TABLET PO SCH (07:14)
[2020-04-05] MEDS: CYANOCOBALAMIN (VITAMIN B-12) 1,000 MCG TABLET. PO SCH (07:16)
[2020-04-05] MEDS: prednisoLONE ACETATE 1% OPHTH SUSPENSION 5ML BOTTLE. OD SCH (07:16)
[2020-04-05] MEDS: MEMANTINE 10 MG TABLET. PO SCH ×2 (07:16→19:53)
[2020-04-05] MEDS: hydrOXYzine PAMOATE 25 MG CAPSULE PO SCH ×2 (07:16→19:53)
[2020-04-05] MEDS: AMANTADINE HCL 100 MG PO SCH (07:18)
--- NOTE | 2020-04-05 12:00 | NUR ---
Nursing note: Pt has been laying quietly in bed for most of the morning. Pt will respond to some questions. When asked about pain, pt began to rub her R eye. Some swelling and redness is noted above pt's R eye. Will have Dr. Jacome take a look at it today. Will continue to monitor.
[2020-04-05 15:19] VITALS: BP 114/80
[2020-04-05 15:44] LABS: BASO # 0.1 x10^3/uL (0.0-0.2); BASO % 1 % (0-3); EOS # 0.2 x10^3/uL (0.0-0.7); EOS % 2 % (0-3); HEMATOCRIT 39.5 % (36.0-47.0); LYMPH # 2.8 x10^3/uL (1.0-4.8); LYMPH % 34 % (24-48); MEAN CORPUSCULAR HEMOGLOBIN 28 pg (25-35); MEAN CORPUSCULAR HGB CONC 33 g/dL (31-37); MEAN CORPUSCULAR VOLUME 84 fL (79-100); MONO # 0.7 x10^3/uL (0.0-1.1); MONO % 8 % (0-9); NEUT # 4.5 x10^3uL (1.8-7.7); NEUT % 55 % (31-73); PLATELET COUNT 220 x10^3/uL (140-400); RED BLOOD COUNT 4.69 x10^6/uL (3.50-5.40); RED CELL DISTRIBUTION WIDTH 14.9 % (11.5-14.5); WHITE BLOOD COUNT 8.1 x10^3/uL (4.0-11.0)
[2020-04-05 15:58] LABS: ALBUMIN 3.1 g/dL (3.4-5.0); ALBUMIN/GLOBULIN RATIO 0.8 (1.0-1.7); CALCIUM 10.5 mg/dL (8.5-10.1); GFR 54.7; POTASSIUM 3.8 mmol/L (3.5-5.1); TOTAL BILIRUBIN 0.4 mg/dL (0.2-1.0); TOTAL PROTEIN 7.2 g/dL (6.4-8.2)
[2020-04-05] MEDS: LURASIDONE 40 MG TABLET. PO SCH (17:00)
[2020-04-05] MEDS: LEVOTHYROXINE 50 MCG TABLET PO SCH (19:52)
[2020-04-05] MEDS: MIRTAZAPINE 7.5 MG TABLET. PO SCH (19:53)
[2020-04-05] MEDS: ATORVASTATIN CALCIUM 20 MG TABLET PO SCH (19:53)
[2020-04-05] MEDS: traZODone 50 MG TABLET. PO SCH (19:53)
[2020-04-05] MEDS: cloZAPine 25 MG TABLET PO SCH (19:54)
[2020-04-05] MEDS: SODIUM CHLORIDE 5% OPHTH OINTMENT 3.5GM TUBE. OU SCH (19:56)
--- NOTE | 2020-04-05 20:54 | PDOC ---
Exam Note: Julian Note: Please also refer to the separate dictated note~for this date of service dictated separately.~Patient seen individually. Discussed the patient with Nursing staff reviewed the chart.~Reviewed interim history and current functioning. Reviewed vital signs,~Labs/ Radiology~and current medications noted below. Continue current treatment with the changes noted in the dictated addendum note Assessment: Vital Signs/I&O: Vital Signs Date Time Temp Pulse Resp B/P (MAP) Pulse Ox O2 Delivery O2 Flow Rate FiO2 04/05/20 15:19 98.3 84 20 114/80 (91) 99 Room Air I & O 04/04/20 04/04/20 04/05/20 15:00 23:00 07:00 Intake Total 360 ml 300 ml Balance 360 ml 300 ml Labs: Laboratory Tests Test 04/05/20 15:35 White Blood Count 8.1 x10^3/uL (4.0-11.0) Red Blood Count 4.69 x10^6/uL (3.50-5.40) Hemoglobin 13.0 g/dL (12.0-15.5) Hematocrit 39.5 % (36.0-47.0) Mean Corpuscular Volume 84 fL (79-100) Mean Corpuscular Hemoglobin 28 pg (25-35) Mean Corpuscular Hemoglobin Concent 33 g/dL (31-37) Red Cell Distribution Width 14.9 % (11.5-14.5) H Platelet Count 220 x10^3/uL (140-400) Neutrophils (%) (Auto) 55 % (31-73) Lymphocytes (%) (Auto) 34 % (24-48) Monocytes (%) (Auto) 8 % (0-9) Eosinophils (%) (Auto) 2 % (0-3) Basophils (%) (Auto) 1 % (0-3) Neutrophils # (Auto) 4.5 x10^3uL (1.8-7.7) Lymphocytes # (Auto) 2.8 x10^3/uL (1.0-4.8) Monocytes # (Auto) 0.7 x10^3/uL (0.0-1.1) Eosinophils # (Auto) 0.2 x10^3/uL (0.0-0.7) Basophils # (Auto) 0.1 x10^3/uL (0.0-0.2) Sodium Level 143 mmol/L (136-145) Potassium Level 3.8 mmol/L (3.5-5.1) Chloride Level 106 mmol/L (98-107) Carbon Dioxide Level 30 mmol/L (21-32) Anion Gap 7 (6-14) Blood Urea Nitrogen 14 mg/dL (7-20) Creatinine 1.0 mg/dL (0.6-1.0) Estimated GFR (Cockcroft-Gault) 54.7 BUN/Creatinine Ratio 14 (6-20) Glucose Level 94 mg/dL (70-99) Calcium Level 10.5 mg/dL (8.5-10.1) H Total Bilirubin 0.4 mg/dL (0.2-1.0) Aspartate Amino Transferase (AST) 19 U/L (15-37) Alanine Aminotransferase (ALT) 16 U/L (14-59) Alkaline Phosphatase 136 U/L (46-116) H Total Protein 7.2 g/dL (6.4-8.2) Albumin 3.1 g/dL (3.4-5.0) L Albumin/Globulin Ratio 0.8 (1.0-1.7) L Current Medications: I have reviewed the current psychotropics carefully including drug interactions. Risk benefit ratio favors no change other than as noted in my dictated progress note. Diagnosis: Problems: (1) Schizoaffective disorder, bipolar type (2) Tardive dyskinesia (3) Impulse control disorder, unspecified (4) Anxiety disorder, unspecified (5) Bipolar affective, mixed, sev w/ psych (6) Mild cognitive impairment KIERSTEN WATT MD Apr 05, 2020 20:54
[2020-04-05] MEDS: ESTRADIOL 0.01% VAGINAL CREAM 42.5GM TUBE. VG SCH (22:24)
--- NOTE | 2020-04-06 02:54 | NUR ---
Nursing Note The patient was calm and cooperative this shift. The patient was more interactive this shift and had a short but coherent conversation about her medications with this nurse. The patient took her medication whole. The patient is currently sleeping in her room.
[2020-04-06 04:32] VITALS: BP 129/87
--- NOTE | 2020-04-06 07:50 | PDOC ---
Exam Note: Julian Note: This note is a late entry for 04/04/2020 covers elements not covered in my initial note. Subjective: The patient was seen face to face in the evening of 04/04/2020 with Renetta MUÑOZ. Discussed with nursing staff, reviewed the chart. She slept 7 hours previous night. She is somewhat resistive with the meds previous evening, spitting them out even though they were given in the pudding. Later nursing staff added them to Gatorade and she took it over a period of about 2 hours. Review of Systems: Ambulation impaired. No CV, , pulmonary, eye, ENT system symptoms on review. She was just a little more verbal this evening. Mental Status Exam: Oriented to herself and situation. She is somewhat withdrawn, lying in bed as I met with her. She is just a little more verbal today which is an improvement, still disorganized and attentive, paranoid, delusional. Speech is coherent. Abstraction fair. Computation impaired. Language function is intact. Mood and affect is withdrawn, anxious. Attention span is short. No active suicidal or homicidal ideation. Laboratory Data: Reviewed. Impression: Tardive dyskinesia. Schizoaffective disorders bipolar type mixed with psychotic features. Anxiety disorder unspecified. Impulse control disorder unspecified. Plan: Continue current psychotropics. We will continue to gradually increase Clozaril as tolerated and may stop the Latuda as it may have minimal to any beneficial effects since she is on the Clozaril, which we are adjusting. Assessment: Vital Signs/I&O: Vital Signs Date Time Temp Pulse Resp B/P (MAP) Pulse Ox O2 Delivery O2 Flow Rate FiO2 04/06/20 04:32 97.3 82 18 129/87 (101) 93 Room Air I & O 04/05/20 04/05/20 04/06/20 15:00 23:00 07:00 Intake Total 480 ml 180 ml Balance 480 ml 180 ml Labs: Laboratory Tests Test 04/05/20 15:35 White Blood Count 8.1 x10^3/uL (4.0-11.0) Red Blood Count 4.69 x10^6/uL (3.50-5.40) Hemoglobin 13.0 g/dL (12.0-15.5) Hematocrit 39.5 % (36.0-47.0) Mean Corpuscular Volume 84 fL (79-100) Mean Corpuscular Hemoglobin 28 pg (25-35) Mean Corpuscular Hemoglobin Concent 33 g/dL (31-37) Red Cell Distribution Width 14.9 % (11.5-14.5) H Platelet Count 220 x10^3/uL (140-400) Neutrophils (%) (Auto) 55 % (31-73) Lymphocytes (%) (Auto) 34 % (24-48) Monocytes (%) (Auto) 8 % (0-9) Eosinophils (%) (Auto) 2 % (0-3) Basophils (%) (Auto) 1 % (0-3) Neutrophils # (Auto) 4.5 x10^3uL (1.8-7.7) Lymphocytes # (Auto) 2.8 x10^3/uL (1.0-4.8) Monocytes # (Auto) 0.7 x10^3/uL (0.0-1.1) Eosinophils # (Auto) 0.2 x10^3/uL (0.0-0.7) Basophils # (Auto) 0.1 x10^3/uL (0.0-0.2) Sodium Level 143 mmol/L (136-145) Potassium Level 3.8 mmol/L (3.5-5.1) Chloride Level 106 mmol/L (98-107) Carbon Dioxide Level 30 mmol/L (21-32) Anion Gap 7 (6-14) Blood Urea Nitrogen 14 mg/dL (7-20) Creatinine 1.0 mg/dL (0.6-1.0) Estimated GFR (Cockcroft-Gault) 54.7 BUN/Creatinine Ratio 14 (6-20) Glucose Level 94 mg/dL (70-99) Calcium Level 10.5 mg/dL (8.5-10.1) H Total Bilirubin 0.4 mg/dL (0.2-1.0) Aspartate Amino Transferase (AST) 19 U/L (15-37) Alanine Aminotransferase (ALT) 16 U/L (14-59) Alkaline Phosphatase 136 U/L (46-116) H Total Protein 7.2 g/dL (6.4-8.2) Albumin 3.1 g/dL (3.4-5.0) L Albumin/Globulin Ratio 0.8 (1.0-1.7) L Current Medications: I have reviewed the current psychotropics carefully including drug interactions. Risk benefit ratio favors no change other than as noted in my dictated progress note. Diagnosis: Problems: (1) Schizoaffective disorder, bipolar type (2) Tardive dyskinesia (3) Impulse control disorder, unspecified (4) Anxiety disorder, unspecified (5) Bipolar affective, mixed, sev w/ psych (6) Mild cognitive impairment KIERSTEN WATT MD Apr 06, 2020 07:50
--- NOTE | 2020-04-06 08:07 | PDOC ---
Exam Note: Julian Note: This note is a late entry for 04/05/2020 covers elements not covered in my initial note. Subjective: The patient was seen face to face in the evening of 04/05/2020 with Renetta MUÑOZ. Discussed with nursing staff, reviewed the chart. She slept 7-1/2 hours previous night. Overall the patient has done little better, took her medications previous night by Cherie MUÑOZ and again this morning. Oral intake is little better with fluid intake better. Creatinine is dropped from 1.1 to 1.0. Review of Systems: Ambulation impaired. No CV, , pulmonary, eye system symptoms on review. Mental Status Exam: Oriented to herself and situation. The patient is withdrawn, spending much time in bed, not very verbally interactive but little more verbal as I met with her. She is still paranoid, somewhat delusional but less so than before. Speech is coherent. Abstraction fair. Computation impaired. Language function is intact. Mood and affect is withdrawn, anxious. Attention span is short. No active suicidal or homicidal ideation. Laboratory Data: Reviewed. Impression: Tardive dyskinesia. Schizoaffective disorders bipolar type mixed with psychotic features. Anxiety disorder unspecified. Impulse control disorder unspecified. Plan: Continue to gradually increase the Clozaril. Continue rest unchanged. Check weekly CBC, absolute neutrophil counts. Assessment: Vital Signs/I&O: Vital Signs Date Time Temp Pulse Resp B/P (MAP) Pulse Ox O2 Delivery O2 Flow Rate FiO2 04/06/20 04:32 97.3 82 18 129/87 (101) 93 Room Air I & O 04/05/20 04/05/20 04/06/20 15:00 23:00 07:00 Intake Total 480 ml 180 ml Balance 480 ml 180 ml Labs: Laboratory Tests Test 04/05/20 15:35 White Blood Count 8.1 x10^3/uL (4.0-11.0) Red Blood Count 4.69 x10^6/uL (3.50-5.40) Hemoglobin 13.0 g/dL (12.0-15.5) Hematocrit 39.5 % (36.0-47.0) Mean Corpuscular Volume 84 fL (79-100) Mean Corpuscular Hemoglobin 28 pg (25-35) Mean Corpuscular Hemoglobin Concent 33 g/dL (31-37) Red Cell Distribution Width 14.9 % (11.5-14.5) H Platelet Count 220 x10^3/uL (140-400) Neutrophils (%) (Auto) 55 % (31-73) Lymphocytes (%) (Auto) 34 % (24-48) Monocytes (%) (Auto) 8 % (0-9) Eosinophils (%) (Auto) 2 % (0-3) Basophils (%) (Auto) 1 % (0-3) Neutrophils # (Auto) 4.5 x10^3uL (1.8-7.7) Lymphocytes # (Auto) 2.8 x10^3/uL (1.0-4.8) Monocytes # (Auto) 0.7 x10^3/uL (0.0-1.1) Eosinophils # (Auto) 0.2 x10^3/uL (0.0-0.7) Basophils # (Auto) 0.1 x10^3/uL (0.0-0.2) Sodium Level 143 mmol/L (136-145) Potassium Level 3.8 mmol/L (3.5-5.1) Chloride Level 106 mmol/L (98-107) Carbon Dioxide Level 30 mmol/L (21-32) Anion Gap 7 (6-14) Blood Urea Nitrogen 14 mg/dL (7-20) Creatinine 1.0 mg/dL (0.6-1.0) Estimated GFR (Cockcroft-Gault) 54.7 BUN/Creatinine Ratio 14 (6-20) Glucose Level 94 mg/dL (70-99) Calcium Level 10.5 mg/dL (8.5-10.1) H Total Bilirubin 0.4 mg/dL (0.2-1.0) Aspartate Amino Transferase (AST) 19 U/L (15-37) Alanine Aminotransferase (ALT) 16 U/L (14-59) Alkaline Phosphatase 136 U/L (46-116) H Total Protein 7.2 g/dL (6.4-8.2) Albumin 3.1 g/dL (3.4-5.0) L Albumin/Globulin Ratio 0.8 (1.0-1.7) L Current Medications: I have reviewed the current psychotropics carefully including drug interactions. Risk benefit ratio favors no change other than as noted in my dictated progress note. Diagnosis: Problems: (1) Schizoaffective disorder, bipolar type (2) Tardive dyskinesia (3) Impulse control disorder, unspecified (4) Anxiety disorder, unspecified (5) Bipolar affective, mixed, sev w/ psych (6) Mild cognitive impairment KIERSTEN WATT MD Apr 06, 2020 08:07
[2020-04-06] MEDS: hydrOXYzine PAMOATE 25 MG CAPSULE PO SCH ×2 (09:49→21:04)
[2020-04-06] MEDS: AMANTADINE HCL 100 MG PO SCH (09:50)
[2020-04-06] MEDS: prednisoLONE ACETATE 1% OPHTH SUSPENSION 5ML BOTTLE. OD SCH (09:51)
[2020-04-06] MEDS: CYANOCOBALAMIN (VITAMIN B-12) 1,000 MCG TABLET. PO SCH (09:51)
[2020-04-06] MEDS: DOCUSATE SODIUM 100 MG CAPSULE PO SCH ×2 (09:51→21:04)
[2020-04-06] MEDS: MEMANTINE 10 MG TABLET. PO SCH ×2 (09:51→21:04)
[2020-04-06] MEDS: FUROSEMIDE 20 MG TABLET PO SCH (09:51)
--- NOTE | 2020-04-06 10:40 | NUR ---
WEEKLY ACTIVITY THERAPY NOTE- GROUPS/ 1:1s SUSPENDED OF 03/30- 1:1s resumed 04/05 Date of Admission: 03/21 Date of AT Assessment: 03/23 Precipitating behaviors that initiated intake and admission: Manic, digging at hair and face, anxious, rambles, upper and lower body movements. Goal aimed: increase time management and stress management/relaxation skills Initial Goal: Pt will participate in at least one individual or group Activity Therapy session before discharge. Weekly progress towards goal: on track, 0/0 Group participation level: zero Weekly highlights: Behaviors observed: often sleeping in her room, appeared to be less restless Plan: no change to goal Beneficial adaptations:
--- NOTE | 2020-04-06 12:56 | TX PLAN ---
Interdisciplinary Tx Plan Admission Information Mar 21, 2020 at 18:15 Legal Status (on Admission): Voluntary DPOA/Guardian Name: Hardik Smith Contact Other Contact Name: Joselito Other Contact Verified Code Status: Full Code Allergies: Coded Allergies: Benzodiazepines (Verified Allergy, Intermediate, Unknown, 12/29/17) clonazepam (Verified Allergy, Intermediate, Unknown, 12/29/17) lorazepam (Verified Allergy, Intermediate, Unknown, 12/29/17) lithium (Verified Allergy, Unknown, 03/20/20) Diagnoses Primary Diagnosis: Schizoaffective D/O, Bipolar type Reasons for Admission: Agitated, Sig. Change Sleep, Anxiety/Panic Problem in Patient's Words: They are trying to so many meds on her it's throwing her for a loop. Additional Admission Comments: According to the intake, pt is manic, digging at her hair and face, agitated, restless, insomnia, sporadic meal intake, anxious, rambling, causing harm to self Problems Active Problems: withdrawn restless anxious Tardive Dyskenesia Inactive Problems: medication compliant Pt Strengths/Limitations Ability for Bradley: Poor Cognitive Functioning/Ability: Poor Communication Skills/Ability: Poor Financial Resources: Poor Insight/Judgement: Fair Intellectual Ability: Fair Physical Health: Poor Social Skills: Poor Stability in Family: Good Stability in School/Work: Poor Verbal Skills: Poor Discharge Criteria Discharge Criteria: No need for close observ., Adequate arrangements @DC, Impr yazmin behavior, Improved mood/thought Preliminary Discharge Plan Preliminary DC Plan: Current Living Arrange. Special Precautions Fall Risk: Moderate Initial [facility] Discharge Needs: At this time, it is unknown if pt will return to [facility] or not. Currently Utilized Resources Currently Utilized Resources/P: PCP Psychiatry/SEMICONDUCTOR TECHNICIAN Identified Problems/Hx/Goals Objectives/Short-Term Goals Short Term Goals: Dec. Anxiety/Panic, Decrease Isolation, Dec. Outbursts, Medication Stabilization, Monitor Med Effects, Promote Coping Skill Short Term Goals in Patient's: N/A Interventions/Frequency Staff Interventions/Frequency&: Psychiatrist to assess pt at least 3x per week for medication management. Social Work to assess pt at least 2x per week for discharge planning and assess any potential discharge barriers. Nursing to manage behaviors, assess medication effects, and complete 15 minute checks. Encourage participation in group activities (if applicable) or 1:1 engagement based off activity dept assessment. 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 Community Follow-up PCP Psychiatry Community Provider/Family Inpu: They are screwing up his medications. Treatment Plan Explained Patient/Emulsion Coater had this treatment plan explained to him/her as indicated by the signature below and has been given the opportunity to ask questions and make suggestions: Date: Patient/Emulsion Coater Signature: Status Update Update Pt is consuming an average of 25% of her meals d/t not liking the thickened liquids. Food consumption is being monitored. She averages 8 hours of sleep per night. She is resistive to answering staff questions, but is compliant with wrist band checks. She continues to demonstrate resistance on taking her medications. Her lesions from scratching appear to be healing/improving. At this time pt is on Haldol, Namenda, Remeron, Latuda, Trazodone, Vistaril, and Clozaril. Pt will return back to [facility] [place] once stable. JOY ZARAGOZA Apr 06, 2020 12:56
[2020-04-06 16:09] VITALS: BP 120/81
[2020-04-06] MEDS: LURASIDONE 40 MG TABLET. PO SCH (18:04)
--- NOTE | 2020-04-06 18:30 | NUR ---
Patient has been withdrawn, disorganized, and resistive throughout this shift. Patient became agitated at times, and yelled at her roommate. She stayed withdrawn to her room throughout the shift. Patient was resistive with shower and medications, requiring a lot of verbal encouragement to take her medications. Will continue to monitor.
--- NOTE | 2020-04-06 20:50 | PDOC ---
Exam Note: Julian Note: Please also refer to the separate dictated note~for this date of service dictated separately.~Patient seen individually. Discussed the patient with Nursing staff reviewed the chart.~Reviewed interim history and current functioning. Reviewed vital signs,~Labs/ Radiology~and current medications noted below. Continue current treatment with the changes noted in the dictated addendum note Assessment: Vital Signs/I&O: Vital Signs Date Time Temp Pulse Resp B/P (MAP) Pulse Ox O2 Delivery O2 Flow Rate FiO2 04/06/20 16:09 98.7 84 19 120/81 (94) 99 04/06/20 04:32 Room Air I & O 04/05/20 04/05/20 04/06/20 15:00 23:00 07:00 Intake Total 480 ml 180 ml Balance 480 ml 180 ml Current Medications: I have reviewed the current psychotropics carefully including drug interactions. Risk benefit ratio favors no change other than as noted in my dictated progress note. Diagnosis: Problems: (1) Schizoaffective disorder, bipolar type (2) Tardive dyskinesia (3) Impulse control disorder, unspecified (4) Anxiety disorder, unspecified (5) Bipolar affective, mixed, sev w/ psych (6) Mild cognitive impairment KIERSTEN WATT MD Apr 06, 2020 20:50
[2020-04-06] MEDS: LEVOTHYROXINE 50 MCG TABLET PO SCH (21:04)
[2020-04-06] MEDS: ATORVASTATIN CALCIUM 20 MG TABLET PO SCH (21:04)
[2020-04-06] MEDS: cloZAPine 25 MG TABLET PO SCH (21:04)
[2020-04-06] MEDS: MIRTAZAPINE 7.5 MG TABLET. PO SCH (21:04)
[2020-04-06] MEDS: traZODone 50 MG TABLET. PO SCH (21:04)
[2020-04-06] MEDS: SODIUM CHLORIDE 5% OPHTH OINTMENT 3.5GM TUBE. OU SCH (21:06)
--- NOTE | 2020-04-07 02:27 | NUR ---
Nursing Note The patient was compliant but non verbal with this nurse this shift. The patient took her medication whole. The patient had one episode in which she yelled at her room mate but staff was unable to determine why. The patient was unable to answer her assessment questions and in fact did not attempt to. The patient is currently sleeping in her room.
[2020-04-07 05:15] VITALS: BP 115/76
[2020-04-07 06:56] LABS: BASO # 0.1 x10^3/uL (0.0-0.2); BASO % 1 % (0-3); EOS # 0.2 x10^3/uL (0.0-0.7); EOS % 2 % (0-3); HEMATOCRIT 42.3 % (36.0-47.0); HEMOGLOBIN 13.8 g/dL (12.0-15.5); LYMPH # 2.4 x10^3/uL (1.0-4.8); LYMPH % 30 % (24-48); MEAN CORPUSCULAR HEMOGLOBIN 28 pg (25-35); MEAN CORPUSCULAR HGB CONC 33 g/dL (31-37); MEAN CORPUSCULAR VOLUME 85 fL (79-100); MONO # 0.6 x10^3/uL (0.0-1.1); MONO % 8 % (0-9); NEUT # 4.8 x10^3uL (1.8-7.7); NEUT % 59 % (31-73); PLATELET COUNT 216 x10^3/uL (140-400); RED BLOOD COUNT 4.96 x10^6/uL (3.50-5.40)
[2020-04-07 07:10] LABS: ALBUMIN 3.2 g/dL (3.4-5.0); ALBUMIN/GLOBULIN RATIO 0.7 (1.0-1.7); CALCIUM 10.6 mg/dL (8.5-10.1); GFR 54.7; TOTAL BILIRUBIN 0.4 mg/dL (0.2-1.0); TOTAL PROTEIN 7.6 g/dL (6.4-8.2)
[2020-04-07] MEDS: DOCUSATE SODIUM 100 MG CAPSULE PO SCH ×2 (09:33→20:24)
[2020-04-07] MEDS: FUROSEMIDE 20 MG TABLET PO SCH (09:33)
[2020-04-07] MEDS: AMANTADINE HCL 100 MG PO SCH (09:33)
[2020-04-07] MEDS: MEMANTINE 10 MG TABLET. PO SCH ×2 (09:33→20:23)
[2020-04-07] MEDS: prednisoLONE ACETATE 1% OPHTH SUSPENSION 5ML BOTTLE. OD SCH (09:33)
[2020-04-07] MEDS: CYANOCOBALAMIN (VITAMIN B-12) 1,000 MCG TABLET. PO SCH (09:33)
[2020-04-07] MEDS: hydrOXYzine PAMOATE 25 MG CAPSULE PO SCH ×2 (09:33→20:23)
--- NOTE | 2020-04-07 11:09 | NUR ---
Nursing note: Pt laying in bed at AM med pass and assessment. She was pleasant, compliant with meds whole and cooperative with assessment. She was much more interactive with this nurse, holding a conversation about her thickened liquids and how she prefers "regular" water. Pt's only complaint is of the tender cyst above her eye. Will continue to monitor.
[2020-04-07 15:00] VITALS: BP 107/56
[2020-04-07] MEDS: LURASIDONE 40 MG TABLET. PO SCH (17:05)
--- NOTE | 2020-04-07 17:32 | NUR ---
Spoke to dr rodriguez about patient not eating well and that it was the pureed food. She had a cup from her room mate that she filled with water and she also took her gatorade and drank it. We will order speech consult to see if we can change her diet and drinks. Order placed for consult.
[2020-04-07] MEDS: SODIUM CHLORIDE 5% OPHTH OINTMENT 3.5GM TUBE. OU SCH (20:22)
[2020-04-07] MEDS: cloZAPine 25 MG TABLET PO SCH (20:23)
[2020-04-07] MEDS: ATORVASTATIN CALCIUM 20 MG TABLET PO SCH (20:23)
[2020-04-07] MEDS: MIRTAZAPINE 7.5 MG TABLET. PO SCH (20:23)
[2020-04-07] MEDS: LEVOTHYROXINE 50 MCG TABLET PO SCH (20:23)
[2020-04-07] MEDS: traZODone 50 MG TABLET. PO SCH (20:23)
--- NOTE | 2020-04-07 20:59 | PDOC ---
Exam Note: Julian Note: Please also refer to the separate dictated note~for this date of service dictated separately.~Patient seen individually. Discussed the patient with Nursing staff reviewed the chart.~Reviewed interim history and current functioning. Reviewed vital signs,~Labs/ Radiology~and current medications noted below. Continue current treatment with the changes noted in the dictated addendum note Assessment: Vital Signs/I&O: Vital Signs Date Time Temp Pulse Resp B/P (MAP) Pulse Ox O2 Delivery O2 Flow Rate FiO2 04/07/20 15:00 98.1 92 16 107/56 (73) 96 Room Air I & O 04/06/20 04/06/20 04/07/20 15:00 23:00 07:00 Intake Total 565 ml Balance 565 ml Labs: Laboratory Tests Test 04/07/20 06:42 White Blood Count 8.0 x10^3/uL (4.0-11.0) Red Blood Count 4.96 x10^6/uL (3.50-5.40) Hemoglobin 13.8 g/dL (12.0-15.5) Hematocrit 42.3 % (36.0-47.0) Mean Corpuscular Volume 85 fL (79-100) Mean Corpuscular Hemoglobin 28 pg (25-35) Mean Corpuscular Hemoglobin Concent 33 g/dL (31-37) Red Cell Distribution Width 15.0 % (11.5-14.5) H Platelet Count 216 x10^3/uL (140-400) Neutrophils (%) (Auto) 59 % (31-73) Lymphocytes (%) (Auto) 30 % (24-48) Monocytes (%) (Auto) 8 % (0-9) Eosinophils (%) (Auto) 2 % (0-3) Basophils (%) (Auto) 1 % (0-3) Neutrophils # (Auto) 4.8 x10^3uL (1.8-7.7) Lymphocytes # (Auto) 2.4 x10^3/uL (1.0-4.8) Monocytes # (Auto) 0.6 x10^3/uL (0.0-1.1) Eosinophils # (Auto) 0.2 x10^3/uL (0.0-0.7) Basophils # (Auto) 0.1 x10^3/uL (0.0-0.2) Sodium Level 142 mmol/L (136-145) Potassium Level 4.0 mmol/L (3.5-5.1) Chloride Level 107 mmol/L (98-107) Carbon Dioxide Level 27 mmol/L (21-32) Anion Gap 8 (6-14) Blood Urea Nitrogen 20 mg/dL (7-20) Creatinine 1.0 mg/dL (0.6-1.0) Estimated GFR (Cockcroft-Gault) 54.7 BUN/Creatinine Ratio 20 (6-20) Glucose Level 112 mg/dL (70-99) H Calcium Level 10.6 mg/dL (8.5-10.1) H Total Bilirubin 0.4 mg/dL (0.2-1.0) Aspartate Amino Transferase (AST) 21 U/L (15-37) Alanine Aminotransferase (ALT) 18 U/L (14-59) Alkaline Phosphatase 142 U/L (46-116) H Total Protein 7.6 g/dL (6.4-8.2) Albumin 3.2 g/dL (3.4-5.0) L Albumin/Globulin Ratio 0.7 (1.0-1.7) L Current Medications: I have reviewed the current psychotropics carefully including drug interactions. Risk benefit ratio favors no change other than as noted in my dictated progress note. Diagnosis: Problems: (1) Schizoaffective disorder, bipolar type (2) Tardive dyskinesia (3) Impulse control disorder, unspecified (4) Anxiety disorder, unspecified (5) Bipolar affective, mixed, sev w/ psych (6) Mild cognitive impairment KIERSTEN WATT MD Apr 07, 2020 20:59
[2020-04-07] MEDS: ESTRADIOL 0.01% VAGINAL CREAM 42.5GM TUBE. VG SCH (21:39)
--- NOTE | 2020-04-08 02:46 | NUR ---
Nursing Note The patient was calm and compliant with cares and medications. The patient attempted to answer assessment questions this shift and was able to state the name of this [facility] and first and last name but was unable to state the date. The patient took her medication whole. The patient is currently sleeping in her room.
[2020-04-08 06:27] VITALS: BP 107/73
--- NOTE | 2020-04-08 06:56 | PDOC ---
Exam Note: Julian Note: This note is a late entry for 04/06/2020 covers elements not covered in my initial note. Subjective: The patient was seen face to face in the morning of 04/06/2020 for treatment team meeting with Chiara Lerner and Barbi (social worker delinquency prevention staff), Yasmin, [facility] and Adithya MUÑOZ. Discussed with nursing staff, reviewed the chart. She slept 8 hours previous night. Appetite is 25%. She often refuses her medications and does not like thickened liquids or pureed diet. She took her medications whole the previous night. She has had a little more verbal interaction with staff which is a slight improvement, less pulling off hair on her face and head. Review of Systems: Ambulation impaired. No CV, , pulmonary, eye system symptoms on review. Mental Status Exam: Oriented to herself and situation. The patient is little more interactive, verbal as I met with her. Speech is coherent. Abstraction fair. Computation impaired. Language function is intact. Mood and affect is withdrawn, anxious. Attention span is short. No active suicidal or homicidal ideation. Laboratory Data: Reviewed. Impression: Tardive dyskinesia. Schizoaffective disorders bipolar type mixed with psychotic features. Anxiety disorder unspecified. Impulse control disorder unspecified. Plan: We will continue to gradually increase her Clozaril as tolerated. We may consider restarting lithium, which she responded well to in the past and perhaps Depakote as well and we may stop the Latuda at some point. Assessment: Vital Signs/I&O: Vital Signs Date Time Temp Pulse Resp B/P (MAP) Pulse Ox O2 Delivery O2 Flow Rate FiO2 04/08/20 06:27 98.2 88 16 107/73 (84) 94 Room Air I & O 04/07/20 04/07/20 04/08/20 15:00 23:00 07:00 Intake Total 480 ml 240 ml Balance 480 ml 240 ml Current Medications: I have reviewed the current psychotropics carefully including drug interactions. Risk benefit ratio favors no change other than as noted in my dictated progress note. Diagnosis: Problems: (1) Tardive dyskinesia (2) Schizoaffective disorder, bipolar type (3) Obsessive compulsive disorder (4) Impulse control disorder, unspecified (5) Anxiety disorder, unspecified (6) Bipolar affective, mixed, sev w/ psych (7) Mild cognitive impairment KIERSTEN WATT MD Apr 08, 2020 06:56
--- NOTE | 2020-04-08 07:18 | PDOC ---
Exam Note: Julian Note: This note is a late entry for 04/07/2020 covers elements not covered in my initial note. Subjective: The patient was seen on telehealth rounds in the evening of 04/07/2020 with Stacie MUÑOZ. Discussed with nursing staff, reviewed the chart. She slept 6-1/2 hours previous night. Overall the patient is doing better, little more verbal, interactive per nursing report, still spending much time in her bed. Oral intake remains poor and we will re-consult speech therapy to see if diet can be reverted back to non-thickened liquids and non-pureed diet. Review of Systems: Ambulation impaired. No CV, , pulmonary, eye system symptoms on review. Mental Status Exam: Oriented to herself and situation. Once again as before she is a little more interactive as I met with her but not able to make full sentences though she had done this with nursing staff earlier in the day. Abstraction fair. Computation impaired. Language function is intact. Mood and affect is withdrawn. Attention span is short. No active suicidal or homicidal ideation. Laboratory Data: Reviewed. Impression: Tardive dyskinesia. Schizoaffective disorders bipolar type mixed with psychotic features. Anxiety disorder unspecified. Impulse control disorder unspecified. Plan: No change from initial note. Assessment: Vital Signs/I&O: Vital Signs Date Time Temp Pulse Resp B/P (MAP) Pulse Ox O2 Delivery O2 Flow Rate FiO2 04/08/20 06:27 98.2 88 16 107/73 (84) 94 Room Air I & O 04/07/20 04/07/20 04/08/20 15:00 23:00 07:00 Intake Total 480 ml 240 ml Balance 480 ml 240 ml Current Medications: I have reviewed the current psychotropics carefully including drug interactions. Risk benefit ratio favors no change other than as noted in my dictated progress note. Diagnosis: Problems: (1) Schizoaffective disorder, bipolar type (2) Tardive dyskinesia (3) Obsessive compulsive disorder (4) Impulse control disorder, unspecified (5) Anxiety disorder, unspecified (6) Bipolar affective, mixed, sev w/ psych (7) Mild cognitive impairment KIERSTEN WATT MD Apr 08, 2020 07:18
[2020-04-08] MEDS: DOCUSATE SODIUM 100 MG CAPSULE PO SCH ×2 (09:35→20:44)
[2020-04-08] MEDS: FUROSEMIDE 20 MG TABLET PO SCH (09:35)
[2020-04-08] MEDS: prednisoLONE ACETATE 1% OPHTH SUSPENSION 5ML BOTTLE. OD SCH (09:35)
[2020-04-08] MEDS: hydrOXYzine PAMOATE 25 MG CAPSULE PO SCH (09:36)
[2020-04-08] MEDS: CYANOCOBALAMIN (VITAMIN B-12) 1,000 MCG TABLET. PO SCH (09:36)
[2020-04-08] MEDS: AMANTADINE HCL 100 MG PO SCH (09:36)
[2020-04-08] MEDS: MEMANTINE 10 MG TABLET. PO SCH ×2 (09:36→20:44)
--- NOTE | 2020-04-08 11:02 | NUR ---
Pt is compliant with her medication and assessment. Pt is calm, cooperative and compliant. No agitation, no aggression, no hallucinations or delusions noted.
[2020-04-08 15:53] VITALS: BP 95/67
[2020-04-08] MEDS: LEVOTHYROXINE 50 MCG TABLET PO SCH (20:43)
[2020-04-08] MEDS: MIRTAZAPINE 7.5 MG TABLET. PO SCH (20:43)
[2020-04-08] MEDS: ATORVASTATIN CALCIUM 20 MG TABLET PO SCH (20:44)
[2020-04-08] MEDS: cloZAPine 25 MG TABLET PO SCH (20:44)
[2020-04-08] MEDS: traZODone 50 MG TABLET. PO SCH (20:44)
[2020-04-08] MEDS: DIVALPROEX 125 MG CAP.SPRINK PO SCH (20:45)
[2020-04-08] MEDS: SODIUM CHLORIDE 5% OPHTH OINTMENT 3.5GM TUBE. OU SCH (20:45)
--- NOTE | 2020-04-08 21:02 | PDOC ---
Exam Note: Julian Note: Please also refer to the separate dictated note~for this date of service dictated separately.~Patient seen individually. Discussed the patient with Nursing staff reviewed the chart.~Reviewed interim history and current functioning. Reviewed vital signs,~Labs/ Radiology~and current medications noted below. Continue current treatment with the changes noted in the dictated addendum note Assessment: Vital Signs/I&O: Vital Signs Date Time Temp Pulse Resp B/P (MAP) Pulse Ox O2 Delivery O2 Flow Rate FiO2 04/08/20 15:53 97.6 81 20 95/67 (76) 98 04/08/20 06:27 Room Air I & O 04/07/20 04/07/20 04/08/20 15:00 23:00 07:00 Intake Total 480 ml 240 ml Balance 480 ml 240 ml Labs: Laboratory Tests Test 04/08/20 11:10 Phosphorus Level 2.3 mg/dL (2.6-4.7) L Current Medications: Meds: Current Medications Medications (Trade) Dose Ordered Sig/Bora Route PRN Reason Start Time Stop Time Status Last Admin Dose Admin Divalproex Sodium (Depakote Sprinkles) 250 mg HS PO 04/08/20 21:00 04/08/20 20:45 I have reviewed the current psychotropics carefully including drug interactions. Risk benefit ratio favors no change other than as noted in my dictated progress note. Diagnosis: Problems: (1) Schizoaffective disorder, bipolar type (2) Tardive dyskinesia (3) Impulse control disorder, unspecified (4) Anxiety disorder, unspecified (5) Bipolar affective, mixed, sev w/ psych (6) Mild cognitive impairment KIERSTEN WATT MD Apr 08, 2020 21:02
--- NOTE | 2020-04-08 23:52 | NUR ---
Pt located in her room all evening. Pt resistive to medications, but compliant. No episodes of yelling tonight.
[2020-04-09 05:45] VITALS: BP 114/73
[2020-04-09] MEDS: MEMANTINE 10 MG TABLET. PO SCH ×2 (09:01→19:52)
[2020-04-09] MEDS: FUROSEMIDE 20 MG TABLET PO SCH (09:01)
[2020-04-09] MEDS: CYANOCOBALAMIN (VITAMIN B-12) 1,000 MCG TABLET. PO SCH (09:01)
[2020-04-09] MEDS: DOCUSATE SODIUM 100 MG CAPSULE PO SCH ×2 (09:01→19:52)
[2020-04-09] MEDS: prednisoLONE ACETATE 1% OPHTH SUSPENSION 5ML BOTTLE. OD SCH (09:01)
[2020-04-09] MEDS: AMANTADINE HCL 100 MG PO SCH (09:02)
--- NOTE | 2020-04-09 10:03 | NUR ---
Pt is calm, cooperative and compliant. No agitation, no aggression, no hallucinations or delusions noted. Pt is compliant with her medication and assessment. She is doing well on this liquids but is impulsive and will chug them so redirection is beneficial at times.
[2020-04-09 15:00] VITALS: BP 101/64
[2020-04-09] MEDS: ATORVASTATIN CALCIUM 20 MG TABLET PO SCH (19:52)
[2020-04-09] MEDS: LEVOTHYROXINE 50 MCG TABLET PO SCH (19:52)
[2020-04-09] MEDS: MIRTAZAPINE 7.5 MG TABLET. PO SCH (19:52)
[2020-04-09] MEDS: traZODone 50 MG TABLET. PO SCH (19:53)
[2020-04-09] MEDS: cloZAPine 25 MG TABLET PO SCH (19:53)
[2020-04-09] MEDS: SODIUM CHLORIDE 5% OPHTH OINTMENT 3.5GM TUBE. OU SCH (19:54)
[2020-04-09] MEDS: DIVALPROEX 125 MG CAP.SPRINK PO SCH (19:54)
--- NOTE | 2020-04-09 20:38 | PDOC ---
Exam Note: Julian Note: Please also refer to the separate dictated note~for this date of service dictated separately.~Patient seen individually. Discussed the patient with Nursing staff reviewed the chart.~Reviewed interim history and current functioning. Reviewed vital signs,~Labs/ Radiology~and current medications noted below. Continue current treatment with the changes noted in the dictated addendum note Assessment: Vital Signs/I&O: Vital Signs Date Time Temp Pulse Resp B/P (MAP) Pulse Ox O2 Delivery O2 Flow Rate FiO2 04/09/20 15:00 97.9 79 20 101/64 (76) 96 Nasal Cannula I & O 04/08/20 04/08/20 04/09/20 15:00 23:00 07:00 Intake Total 720 ml 780 ml Balance 720 ml 780 ml Current Medications: Meds: Current Medications Medications (Trade) Dose Ordered Sig/Bora Route PRN Reason Start Time Stop Time Status Last Admin Dose Admin Divalproex Sodium (Depakote Sprinkles) 250 mg HS PO 04/08/20 21:00 04/09/20 19:54 I have reviewed the current psychotropics carefully including drug interactions. Risk benefit ratio favors no change other than as noted in my dictated progress note. Diagnosis: Problems: (1) Schizoaffective disorder, bipolar type (2) Tardive dyskinesia (3) Impulse control disorder, unspecified (4) Anxiety disorder, unspecified (5) Bipolar affective, mixed, sev w/ psych (6) Mild cognitive impairment KIERSTEN WATT MD Apr 09, 2020 20:38
--- NOTE | 2020-04-09 23:08 | NUR ---
Pt laying in her bed all evening. Pt pleasant and interactive when approached. Compliant with whole medications.
[2020-04-10 05:55] VITALS: BP 130/82
[2020-04-10 06:49] LABS: BASO % 1 % (0-3); EOS # 0.2 x10^3/uL (0.0-0.7); EOS % 4 % (0-3); HEMATOCRIT 37.9 % (36.0-47.0); HEMOGLOBIN 12.4 g/dL (12.0-15.5); LYMPH # 2.5 x10^3/uL (1.0-4.8); LYMPH % 42 % (24-48); MEAN CORPUSCULAR HEMOGLOBIN 27 pg (25-35); MEAN CORPUSCULAR HGB CONC 33 g/dL (31-37); MEAN CORPUSCULAR VOLUME 84 fL (79-100); MONO # 0.5 x10^3/uL (0.0-1.1); MONO % 7 % (0-9); NEUT # 2.8 x10^3uL (1.8-7.7); NEUT % 46 % (31-73); PLATELET COUNT 193 x10^3/uL (140-400); RED BLOOD COUNT 4.51 x10^6/uL (3.50-5.40); RED CELL DISTRIBUTION WIDTH 14.7 % (11.5-14.5); WHITE BLOOD COUNT 6.1 x10^3/uL (4.0-11.0)
--- NOTE | 2020-04-10 07:28 | PDOC ---
Exam Note: Julian Note: This note is a late entry for 04/08/2020 covers elements not covered in my initial note. Subjective: The patient was seen on telehealth rounds in the evening of 04/08/2020 with Sadia MUÑOZ. Discussed with nursing staff, reviewed the chart. She slept 7 hours previous night. Reportedly the patient is doing better, did better at night and during the day. Speech therapy is reassessing her to see if diet can be changed and fluid can be reverted back to non-thickened. Review of Systems: Hard of hearing. No CV, , pulmonary, eye system symptoms on review. Mental Status Exam: Oriented to herself. Insight and judgment, recent memory is impaired. Language function is intact. Attention span is short. She remains psychotic, distractible. Laboratory Data: Reviewed. Creatinine 1.0, BUN was 17. Impression: Schizoaffective disorders bipolar type mixed with psychotic features. Anxiety disorder unspecified. Impulse control disorder unspecified. Plan: We will stop the Restoril 25 mg b.i.d. and Latuda 60 mg a day since she is on Clozaril 75 mg h.s. Maintain rest of the psychotropics. Restart her on Depakote 250 mg h.s. Check CBC, CMP, valproic acid level in 3 days. Estimated GFR is 52.3 which is somewhat low and we will avoid lithium as a consequence of this. Assessment: Vital Signs/I&O: Vital Signs Date Time Temp Pulse Resp B/P (MAP) Pulse Ox O2 Delivery O2 Flow Rate FiO2 04/10/20 05:55 97.6 83 16 130/82 (98) 98 Room Air I & O 04/09/20 04/09/20 04/10/20 14:59 22:59 06:59 Intake Total 240 ml 300 ml Balance 240 ml 300 ml Labs: Laboratory Tests Test 04/10/20 06:10 White Blood Count 6.1 x10^3/uL (4.0-11.0) Red Blood Count 4.51 x10^6/uL (3.50-5.40) Hemoglobin 12.4 g/dL (12.0-15.5) Hematocrit 37.9 % (36.0-47.0) Mean Corpuscular Volume 84 fL (79-100) Mean Corpuscular Hemoglobin 27 pg (25-35) Mean Corpuscular Hemoglobin Concent 33 g/dL (31-37) Red Cell Distribution Width 14.7 % (11.5-14.5) H Platelet Count 193 x10^3/uL (140-400) Neutrophils (%) (Auto) 46 % (31-73) Lymphocytes (%) (Auto) 42 % (24-48) Monocytes (%) (Auto) 7 % (0-9) Eosinophils (%) (Auto) 4 % (0-3) H Basophils (%) (Auto) 1 % (0-3) Neutrophils # (Auto) 2.8 x10^3uL (1.8-7.7) Lymphocytes # (Auto) 2.5 x10^3/uL (1.0-4.8) Monocytes # (Auto) 0.5 x10^3/uL (0.0-1.1) Eosinophils # (Auto) 0.2 x10^3/uL (0.0-0.7) Basophils # (Auto) 0.0 x10^3/uL (0.0-0.2) Current Medications: I have reviewed the current psychotropics carefully including drug interactions. Risk benefit ratio favors no change other than as noted in my dictated progress note. Diagnosis: Problems: (1) Schizoaffective disorder, bipolar type (2) Impulse control disorder, unspecified (3) Anxiety disorder, unspecified (4) Bipolar affective, mixed, sev w/ psych (5) Mild cognitive impairment (6) Tardive dyskinesia KIERSTEN WATT MD Apr 10, 2020 07:28
--- NOTE | 2020-04-10 07:49 | PDOC ---
Exam Note: Julian Note: This note is a late entry for 04/09/2020 covers elements not covered in my initial note. Subjective: The patient was seen on telehealth rounds in the evening of 04/09/2020 with Sadia MUÑOZ. Discussed with nursing staff, reviewed the chart. She slept 6-3/4 hours previous night. The patient has been somewhat more impulsive. Speech therapy recommended. She could start back on regular non- thickened liquids but she remains on soft pureed diet. She has been pulling on her hair and eyebrows less. Review of Systems: Ambulation impaired. No CV, , pulmonary, eye system symptoms on review. Mental Status Exam: Oriented to herself and situation. The patient is not very verbally interactive, remains somewhat paranoid, distractible. Abstraction fair. Computation impaired. Language function is intact. Mood and affect is withdrawn. Attention span is short. No active suicidal or homicidal ideation. Laboratory Data: Reviewed. Impression: Schizoaffective disorders bipolar type mixed with psychotic features. Anxiety disorder unspecified. Impulse control disorder unspecified. Plan: Continue psychotropics from initial note. Assessment: Vital Signs/I&O: Vital Signs Date Time Temp Pulse Resp B/P (MAP) Pulse Ox O2 Delivery O2 Flow Rate FiO2 04/10/20 05:55 97.6 83 16 130/82 (98) 98 Room Air I & O 04/09/20 04/09/20 04/10/20 14:59 22:59 06:59 Intake Total 440 ml 300 ml Balance 440 ml 300 ml Labs: Laboratory Tests Test 04/10/20 06:10 White Blood Count 6.1 x10^3/uL (4.0-11.0) Red Blood Count 4.51 x10^6/uL (3.50-5.40) Hemoglobin 12.4 g/dL (12.0-15.5) Hematocrit 37.9 % (36.0-47.0) Mean Corpuscular Volume 84 fL (79-100) Mean Corpuscular Hemoglobin 27 pg (25-35) Mean Corpuscular Hemoglobin Concent 33 g/dL (31-37) Red Cell Distribution Width 14.7 % (11.5-14.5) H Platelet Count 193 x10^3/uL (140-400) Neutrophils (%) (Auto) 46 % (31-73) Lymphocytes (%) (Auto) 42 % (24-48) Monocytes (%) (Auto) 7 % (0-9) Eosinophils (%) (Auto) 4 % (0-3) H Basophils (%) (Auto) 1 % (0-3) Neutrophils # (Auto) 2.8 x10^3uL (1.8-7.7) Lymphocytes # (Auto) 2.5 x10^3/uL (1.0-4.8) Monocytes # (Auto) 0.5 x10^3/uL (0.0-1.1) Eosinophils # (Auto) 0.2 x10^3/uL (0.0-0.7) Basophils # (Auto) 0.0 x10^3/uL (0.0-0.2) Current Medications: I have reviewed the current psychotropics carefully including drug interactions. Risk benefit ratio favors no change other than as noted in my dictated progress note. Diagnosis: Problems: (1) Schizoaffective disorder, bipolar type (2) Impulse control disorder, unspecified (3) Anxiety disorder, unspecified (4) Bipolar affective, mixed, sev w/ psych (5) Mild cognitive impairment (6) Tardive dyskinesia KIERSTEN WATT MD Apr 10, 2020 07:49
[2020-04-10] MEDS: DOCUSATE SODIUM 100 MG CAPSULE PO SCH ×2 (08:48→19:11)
[2020-04-10] MEDS: prednisoLONE ACETATE 1% OPHTH SUSPENSION 5ML BOTTLE. OD SCH (08:48)
[2020-04-10] MEDS: FUROSEMIDE 20 MG TABLET PO SCH (08:48)
[2020-04-10] MEDS: MEMANTINE 10 MG TABLET. PO SCH ×2 (08:48→19:11)
[2020-04-10] MEDS: CYANOCOBALAMIN (VITAMIN B-12) 1,000 MCG TABLET. PO SCH (08:49)
[2020-04-10] MEDS: AMANTADINE HCL 100 MG PO SCH (08:49)
--- NOTE | 2020-04-10 10:43 | NUR ---
Pt is compliant with her medication and assessment. Pt is calm, cooperative and compliant. No agitation, no aggression, no hallucinations or delusions noted. Pt needs encouragement to eat.
[2020-04-10 15:10] VITALS: BP 122/77
[2020-04-10] MEDS: LEVOTHYROXINE 50 MCG TABLET PO SCH (19:11)
[2020-04-10] MEDS: cloZAPine 25 MG TABLET PO SCH (19:11)
[2020-04-10] MEDS: traZODone 50 MG TABLET. PO SCH (19:12)
[2020-04-10] MEDS: MIRTAZAPINE 7.5 MG TABLET. PO SCH (19:12)
[2020-04-10] MEDS: DIVALPROEX 125 MG CAP.SPRINK PO SCH (19:12)
[2020-04-10] MEDS: SODIUM CHLORIDE 5% OPHTH OINTMENT 3.5GM TUBE. OU SCH (19:12)
[2020-04-10] MEDS: ATORVASTATIN CALCIUM 20 MG TABLET PO SCH (19:12)
[2020-04-10] MEDS: ESTRADIOL 0.01% VAGINAL CREAM 42.5GM TUBE. VG SCH (19:13)
--- NOTE | 2020-04-10 21:14 | PDOC ---
Exam Note: Julian Note: Please also refer to the separate dictated note~for this date of service dictated separately.~Patient seen individually. Discussed the patient with Nursing staff reviewed the chart.~Reviewed interim history and current functioning. Reviewed vital signs,~Labs/ Radiology~and current medications noted below. Continue current treatment with the changes noted in the dictated addendum note Assessment: Vital Signs/I&O: Vital Signs Date Time Temp Pulse Resp B/P (MAP) Pulse Ox O2 Delivery O2 Flow Rate FiO2 04/10/20 18:29 98.7 04/10/20 15:10 86 17 122/77 (92) 97 04/10/20 05:55 Room Air I & O 0 04/09/20 04/09/20 04/10/20 15:00 23:00 07:00 Intake Total 440 ml 300 ml Balance 440 ml 300 ml Labs: Laboratory Tests Test 04/10/20 06:10 White Blood Count 6.1 x10^3/uL (4.0-11.0) Red Blood Count 4.51 x10^6/uL (3.50-5.40) Hemoglobin 12.4 g/dL (12.0-15.5) Hematocrit 37.9 % (36.0-47.0) Mean Corpuscular Volume 84 fL (79-100) Mean Corpuscular Hemoglobin 27 pg (25-35) Mean Corpuscular Hemoglobin Concent 33 g/dL (31-37) Red Cell Distribution Width 14.7 % (11.5-14.5) H Platelet Count 193 x10^3/uL (140-400) Neutrophils (%) (Auto) 46 % (31-73) Lymphocytes (%) (Auto) 42 % (24-48) Monocytes (%) (Auto) 7 % (0-9) Eosinophils (%) (Auto) 4 % (0-3) H Basophils (%) (Auto) 1 % (0-3) Neutrophils # (Auto) 2.8 x10^3uL (1.8-7.7) Lymphocytes # (Auto) 2.5 x10^3/uL (1.0-4.8) Monocytes # (Auto) 0.5 x10^3/uL (0.0-1.1) Eosinophils # (Auto) 0.2 x10^3/uL (0.0-0.7) Basophils # (Auto) 0.0 x10^3/uL (0.0-0.2) Current Medications: I have reviewed the current psychotropics carefully including drug interactions. Risk benefit ratio favors no change other than as noted in my dictated progress note. Diagnosis: Problems: (1) Schizoaffective disorder, bipolar type (2) Obsessive compulsive disorder (3) Impulse control disorder, unspecified (4) Anxiety disorder, unspecified (5) Bipolar affective, mixed, sev w/ psych (6) Mild cognitive impairment KIERSTEN WATT MD Apr 10, 2020 21:14
--- NOTE | 2020-04-10 22:51 | NUR ---
Pt withdrawn to room all evening. Compliant with whole medications. No behaviors noted tonight.
[2020-04-11 05:50] VITALS: BP 106/68
[2020-04-11 06:56] LABS: BASO % 1 % (0-3); EOS # 0.2 x10^3/uL (0.0-0.7); EOS % 3 % (0-3); HEMATOCRIT 36.7 % (36.0-47.0); LYMPH # 2.8 x10^3/uL (1.0-4.8); LYMPH % 44 % (24-48); MEAN CORPUSCULAR HEMOGLOBIN 28 pg (25-35); MEAN CORPUSCULAR HGB CONC 33 g/dL (31-37); MEAN CORPUSCULAR VOLUME 84 fL (79-100); MONO # 0.5 x10^3/uL (0.0-1.1); MONO % 8 % (0-9); NEUT # 2.8 x10^3uL (1.8-7.7); NEUT % 43 % (31-73); PLATELET COUNT 193 x10^3/uL (140-400); RED BLOOD COUNT 4.37 x10^6/uL (3.50-5.40); RED CELL DISTRIBUTION WIDTH 14.8 % (11.5-14.5); WHITE BLOOD COUNT 6.4 x10^3/uL (4.0-11.0)
[2020-04-11 07:48] LABS: ALBUMIN 2.7 g/dL (3.4-5.0); ALBUMIN/GLOBULIN RATIO 0.7 (1.0-1.7); ALK PHOS 112 U/L (46-116); ALT (SGPT) 13 U/L (14-59); ANION GAP 8 (6-14); AST (SGOT) 16 U/L (15-37); BLOOD UREA NITROGEN 17 mg/dL (7-20); BUN/CREATININE RATIO 21 (6-20); CALCIUM 9.6 mg/dL (8.5-10.1); CARBON DIOXIDE 27 mmol/L (21-32); CHLORIDE 105 mmol/L (98-107); CREATININE 0.8 mg/dL (0.6-1.0); GFR 70.7; GLUCOSE 100 mg/dL (70-99); POTASSIUM 4.2 mmol/L (3.5-5.1); SODIUM 140 mmol/L (136-145); TOTAL BILIRUBIN 0.2 mg/dL (0.2-1.0); TOTAL PROTEIN 6.4 g/dL (6.4-8.2)
[2020-04-11 07:49] LABS: VAL ACID 25 mcg/mL (50-100)
--- NOTE | 2020-04-11 07:52 | PDOC ---
Exam Note: Julian Note: This note is a late entry for 04/10/2020 covers elements not covered in my initial note. Subjective: The patient was seen on telehealth rounds in the evening of 04/10/2020 with Sadia MUÑOZ. Discussed with nursing staff, reviewed the chart. She slept 7-1/2 hours previous night. The patient generally had a better day. She remains somewhat withdrawn but less psychotic, paranoid. Appetite is better. Review of Systems: Ambulation impaired. No CV, , pulmonary, eye system symptoms on review. Mental Status Exam: Oriented to herself and situation. She was still withdrawn, not very verbally interactive as I met with her. Abstraction fair. Computation impaired. Language function is intact. Mood and affect is withdrawn. Attention span is short. No clear suicidal or homicidal ideation. Laboratory Data: Reviewed. Impression: Schizoaffective disorders bipolar type mixed with psychotic features. Anxiety disorder unspecified. Impulse control disorder unspecified. Plan: Continue psychotropics from initial note. Assessment: Vital Signs/I&O: Vital Signs Date Time Temp Pulse Resp B/P (MAP) Pulse Ox O2 Delivery O2 Flow Rate FiO2 04/11/20 05:50 98.3 85 16 106/68 (81) 95 04/10/20 05:55 Room Air I & O 04/10/20 04/10/20 04/11/20 15:00 23:00 07:00 Intake Total 945 ml 285 ml Balance 945 ml 285 ml Labs: Laboratory Tests Test 04/11/20 06:25 White Blood Count 6.4 x10^3/uL (4.0-11.0) Red Blood Count 4.37 x10^6/uL (3.50-5.40) Hemoglobin 12.0 g/dL (12.0-15.5) Hematocrit 36.7 % (36.0-47.0) Mean Corpuscular Volume 84 fL (79-100) Mean Corpuscular Hemoglobin 28 pg (25-35) Mean Corpuscular Hemoglobin Concent 33 g/dL (31-37) Red Cell Distribution Width 14.8 % (11.5-14.5) H Platelet Count 193 x10^3/uL (140-400) Neutrophils (%) (Auto) 43 % (31-73) Lymphocytes (%) (Auto) 44 % (24-48) Monocytes (%) (Auto) 8 % (0-9) Eosinophils (%) (Auto) 3 % (0-3) Basophils (%) (Auto) 1 % (0-3) Neutrophils # (Auto) 2.8 x10^3uL (1.8-7.7) Lymphocytes # (Auto) 2.8 x10^3/uL (1.0-4.8) Monocytes # (Auto) 0.5 x10^3/uL (0.0-1.1) Eosinophils # (Auto) 0.2 x10^3/uL (0.0-0.7) Basophils # (Auto) 0.0 x10^3/uL (0.0-0.2) Sodium Level 140 mmol/L (136-145) Potassium Level 4.2 mmol/L (3.5-5.1) Chloride Level 105 mmol/L (98-107) Carbon Dioxide Level 27 mmol/L (21-32) Anion Gap 8 (6-14) Blood Urea Nitrogen 17 mg/dL (7-20) Creatinine 0.8 mg/dL (0.6-1.0) Estimated GFR (Cockcroft-Gault) 70.7 BUN/Creatinine Ratio 21 (6-20) H Glucose Level 100 mg/dL (70-99) H Calcium Level 9.6 mg/dL (8.5-10.1) Total Bilirubin 0.2 mg/dL (0.2-1.0) Aspartate Amino Transferase (AST) 16 U/L (15-37) Alanine Aminotransferase (ALT) 13 U/L (14-59) L Alkaline Phosphatase 112 U/L (46-116) Total Protein 6.4 g/dL (6.4-8.2) Albumin 2.7 g/dL (3.4-5.0) L Albumin/Globulin Ratio 0.7 (1.0-1.7) L Valproic Acid Level 25 mcg/mL (50-100) L Valproic Acid Last Dose Date 04/10/20 Valproic Acid Last Dose Time 2100 Current Medications: I have reviewed the current psychotropics carefully including drug interactions. Risk benefit ratio favors no change other than as noted in my dictated progress note. Diagnosis: Problems: (1) Schizoaffective disorder, bipolar type (2) Impulse control disorder, unspecified (3) Anxiety disorder, unspecified (4) Bipolar affective, mixed, sev w/ psych (5) Mild cognitive impairment (6) Tardive dyskinesia KIERSTEN WATT MD Apr 11, 2020 07:52
[2020-04-11 09:08] LABS: PTH INTACT See Separate Report
--- NOTE | 2020-04-11 09:30 | NUR ---
Lab Spenser faced results of Hyperparathyroidism tests. Will give lab report to Dr Jacome on rounds. Addendum: 04/11/20 at 1847 by NASREEN MONROE RN Dr Jacome reviewed results. Patient will need to follow up with pediatric occupational therapist or senior data architect on discharge. DX Primary Hyperparathyroidism. CA 11.1, PH 1.9, PTH, intact 88. Notated in discharge tab notes. Niko Monroe, RN
[2020-04-11] MEDS: DOCUSATE SODIUM 100 MG CAPSULE PO SCH ×2 (09:52→20:11)
[2020-04-11] MEDS: MEMANTINE 10 MG TABLET. PO SCH ×2 (09:52→20:11)
[2020-04-11] MEDS: AMANTADINE HCL 100 MG PO SCH (09:52)
[2020-04-11] MEDS: prednisoLONE ACETATE 1% OPHTH SUSPENSION 5ML BOTTLE. OD SCH (09:52)
[2020-04-11] MEDS: FUROSEMIDE 20 MG TABLET PO SCH (09:52)
[2020-04-11] MEDS: CYANOCOBALAMIN (VITAMIN B-12) 1,000 MCG TABLET. PO SCH (09:52)
--- NOTE | 2020-04-11 14:55 | NUR ---
Patient has been laying in bed all day. She is awake at times and was very resistive with her morning medications. She told this nurse to "go away" several times and refused to sit upright to take the medications. Nurse took patients covers off of her and patient was then willing to sit up and take her medications. Patient is still eating a pureed diet but is now drinking thin liquids. She is tolerating the diet and liquids well as ordered.
[2020-04-11 15:44] VITALS: BP 114/75
[2020-04-11] MEDS: ATORVASTATIN CALCIUM 20 MG TABLET PO SCH (20:10)
[2020-04-11] MEDS: DIVALPROEX 125 MG CAP.SPRINK PO SCH (20:10)
[2020-04-11] MEDS: MIRTAZAPINE 7.5 MG TABLET. PO SCH (20:10)
[2020-04-11] MEDS: LEVOTHYROXINE 50 MCG TABLET PO SCH (20:10)
[2020-04-11] MEDS: cloZAPine 25 MG TABLET PO SCH (20:11)
[2020-04-11] MEDS: traZODone 50 MG TABLET. PO SCH (20:11)
[2020-04-11] MEDS: SODIUM CHLORIDE 5% OPHTH OINTMENT 3.5GM TUBE. OU SCH (20:12)
--- NOTE | 2020-04-11 20:55 | PDOC ---
Exam Note: Julian Note: Please also refer to the separate dictated note~for this date of service dictated separately.~Patient seen individually. Discussed the patient with Nursing staff reviewed the chart.~Reviewed interim history and current functioning. Reviewed vital signs,~Labs/ Radiology~and current medications noted below. Continue current treatment with the changes noted in the dictated addendum note Assessment: Vital Signs/I&O: Vital Signs Date Time Temp Pulse Resp B/P (MAP) Pulse Ox O2 Delivery O2 Flow Rate FiO2 04/11/20 15:44 98.9 79 18 114/75 (88) 97 04/10/20 05:55 Room Air I & O 04/10/20 04/10/20 04/11/20 15:00 23:00 07:00 Intake Total 945 ml 285 ml Balance 945 ml 285 ml Labs: Laboratory Tests Test 04/11/20 06:25 White Blood Count 6.4 x10^3/uL (4.0-11.0) Red Blood Count 4.37 x10^6/uL (3.50-5.40) Hemoglobin 12.0 g/dL (12.0-15.5) Hematocrit 36.7 % (36.0-47.0) Mean Corpuscular Volume 84 fL (79-100) Mean Corpuscular Hemoglobin 28 pg (25-35) Mean Corpuscular Hemoglobin Concent 33 g/dL (31-37) Red Cell Distribution Width 14.8 % (11.5-14.5) H Platelet Count 193 x10^3/uL (140-400) Neutrophils (%) (Auto) 43 % (31-73) Lymphocytes (%) (Auto) 44 % (24-48) Monocytes (%) (Auto) 8 % (0-9) Eosinophils (%) (Auto) 3 % (0-3) Basophils (%) (Auto) 1 % (0-3) Neutrophils # (Auto) 2.8 x10^3uL (1.8-7.7) Lymphocytes # (Auto) 2.8 x10^3/uL (1.0-4.8) Monocytes # (Auto) 0.5 x10^3/uL (0.0-1.1) Eosinophils # (Auto) 0.2 x10^3/uL (0.0-0.7) Basophils # (Auto) 0.0 x10^3/uL (0.0-0.2) Sodium Level 140 mmol/L (136-145) Potassium Level 4.2 mmol/L (3.5-5.1) Chloride Level 105 mmol/L (98-107) Carbon Dioxide Level 27 mmol/L (21-32) Anion Gap 8 (6-14) Blood Urea Nitrogen 17 mg/dL (7-20) Creatinine 0.8 mg/dL (0.6-1.0) Estimated GFR (Cockcroft-Gault) 70.7 BUN/Creatinine Ratio 21 (6-20) H Glucose Level 100 mg/dL (70-99) H Calcium Level 9.6 mg/dL (8.5-10.1) Total Bilirubin 0.2 mg/dL (0.2-1.0) Aspartate Amino Transferase (AST) 16 U/L (15-37) Alanine Aminotransferase (ALT) 13 U/L (14-59) L Alkaline Phosphatase 112 U/L (46-116) Total Protein 6.4 g/dL (6.4-8.2) Albumin 2.7 g/dL (3.4-5.0) L Albumin/Globulin Ratio 0.7 (1.0-1.7) L Valproic Acid Level 25 mcg/mL (50-100) L Valproic Acid Last Dose Date 04/10/20 Valproic Acid Last Dose Time 2100 Current Medications: Meds: Current Medications Medications (Trade) Dose Ordered Sig/Bora Route PRN Reason Start Time Stop Time Status Last Admin Dose Admin Divalproex Sodium (Depakote Sprinkles) 250 mg BID PO 04/11/20 21:00 04/11/20 20:10 I have reviewed the current psychotropics carefully including drug interactions. Risk benefit ratio favors no change other than as noted in my dictated progress note. Diagnosis: Problems: (1) Schizoaffective disorder, bipolar type (2) Impulse control disorder, unspecified (3) Anxiety disorder, unspecified (4) Bipolar affective, mixed, sev w/ psych (5) Mild cognitive impairment KIERSTEN WATT MD Apr 11, 2020 20:55
--- NOTE | 2020-04-12 03:30 | NUR ---
Nursing Note The patient was calm, cooperative and withdrawn this shift. The patient was compliant with her medication and took them whole. The patient was able to answer her assessment questions appropriately. The patient stayed in bed for the entire shift. The patient is currently sleeping in her room.
[2020-04-12 05:58] VITALS: BP 128/83
[2020-04-12 06:28] VITALS: BP 128/83
[2020-04-12] MEDS: DIVALPROEX 125 MG CAP.SPRINK PO SCH ×2 (09:06→20:36)
[2020-04-12] MEDS: DOCUSATE SODIUM 100 MG CAPSULE PO SCH ×2 (09:06→20:37)
[2020-04-12] MEDS: CYANOCOBALAMIN (VITAMIN B-12) 1,000 MCG TABLET. PO SCH (09:07)
[2020-04-12] MEDS: MEMANTINE 10 MG TABLET. PO SCH ×2 (09:07→20:37)
[2020-04-12] MEDS: FUROSEMIDE 20 MG TABLET PO SCH (09:07)
[2020-04-12] MEDS: AMANTADINE HCL 100 MG PO SCH (09:08)
[2020-04-12] MEDS: prednisoLONE ACETATE 1% OPHTH SUSPENSION 5ML BOTTLE. OD SCH (09:10)
--- NOTE | 2020-04-12 11:29 | NUR ---
Patient compliant with morning medications. Patient took medications whole with water. No coughing or choking observed, she appears to be tolerating thin liquids well. She seems to be in a better mood this morning although she is still laying in the bed and stated she did not want to sit in the chair when asked. Patient refuses magazines and books when offered. Nurse opened curtains and patient requested they remain closed.
--- NOTE | 2020-04-12 11:39 | NUR ---
Dietary would like patient to have a boost each day as a supplement. She stated they will send it up on her dinner tray.
[2020-04-12] MEDS ORDERED: DIVA125C2 PO (12:34)
[2020-04-12] MEDS ORDERED: CLOZ25TA PO (12:35)
--- NOTE | 2020-04-12 13:42 | TX PLAN ---
Interdisciplinary Tx Plan Admission Information Mar 21, 2020 at 18:15 Legal Status (on Admission): Voluntary DPOA/Guardian Name: Hardik Smith Contact Other Contact Name: Joselito Other Contact Verified Code Status: Full Code Allergies: Coded Allergies: Benzodiazepines (Verified Allergy, Intermediate, Unknown, 12/29/17) clonazepam (Verified Allergy, Intermediate, Unknown, 12/29/17) lorazepam (Verified Allergy, Intermediate, Unknown, 12/29/17) lithium (Verified Allergy, Unknown, 03/20/20) Diagnoses Primary Diagnosis: Schizoaffective D/O, Bipolar type Reasons for Admission: Agitated, Sig. Change Sleep, Anxiety/Panic Problem in Patient's Words: They are trying to so many meds on her it's throwing her for a loop. Additional Admission Comments: According to the intake, pt is manic, digging at her hair and face, agitated, restless, insomnia, sporadic meal intake, anxious, rambling, causing harm to self Problems Active Problems: withdrawn restless anxious Tardive Dyskenesia Inactive Problems: medication compliant Pt Strengths/Limitations Ability for Elliott: Poor Cognitive Functioning/Ability: Poor Communication Skills/Ability: Poor Financial Resources: Poor Insight/Judgement: Fair Intellectual Ability: Fair Physical Health: Poor Social Skills: Poor Stability in Family: Good Stability in School/Work: Poor Verbal Skills: Poor Discharge Criteria Discharge Criteria: No need for close observ., Adequate arrangements @DC, Impr yazmin behavior, Improved mood/thought Preliminary Discharge Plan Preliminary DC Plan: Current Living Arrange. Special Precautions Fall Risk: Moderate Initial [facility] Ident[facility] Discharge Needs: At this time, it is unknown if pt will return to [facility] or not. 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 Anxiety/Panic, Decrease Isolation, Dec. Outbursts, Medication Stabilization, Monitor Med Effects, Promote Coping Skill Short Term Goals in Patient's: N/A Interventions/Frequency Staff Interventions/Frequency&: Psychiatrist to assess pt at least 3x per week for medication management. Social Work to assess pt at least 2x per week for discharge planning and assess any potential discharge barriers. Nursing to manage behaviors, assess medication effects, and complete 15 minute checks. Encourage participation in group activities (if applicable) or 1:1 engagement based off activity dept assessment. 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 Community Follow-up PCP Psychiatry Community Provider/Family Inpu: They are screwing up his medications. Treatment Plan Explained Patient/Field Service Tech had this treatment plan explained to him/her as indicated by the signature below and has been given the opportunity to ask questions and make suggestions: Date: Patient/Field Service Tech Signature: Status Update Update Pt continues to consume an average of 25% of her meals. Diet has been changed from pureed to liquid. Boost is, also, now ordered. Food consumption will continue to be monitored. She has been averaging 8.25 hours of sleep per night. She tends to sleep most of the day. Pt has been showing more signs of orientation; reportedly A/Ox3. Positive progress seems to be noticed as she no longer grabbing her hair or scratching herself. She is still somewhat resistive to engagement, but is more compliant with taking her medications. Dr has been increasing Clozaril weekly, which could be part of the improvement. At this time pt is on Haldol, Namenda, Remeron, Trazodone, Clozaril, and Depakote. Pt will return back to [facility]; estimated d/c date 04/21/20 through 04/24/20. JOY ZARAGOZA Apr 12, 2020 13:42
--- NOTE | 2020-04-12 13:50 | NUR ---
SW attempted call to ROSALINE from Kaylin Matthews. VM left along with call back number. ROSALINE offered brief report on pt progress following today's treatment team along with estimated d/c date. Kaylin to call back when available.
--- NOTE | 2020-04-12 15:28 | NUR ---
WEEKLY ACTIVITY THERAPY NOTE- GROUPS/ 1:1s SUSPENDED OF 03/30- 1:1s resumed 04/05 Date of Admission: 03/21 Date of AT Assessment: 03/23 Precipitating behaviors that initiated intake and admission: Manic, digging at hair and face, anxious, rambles, upper and lower body movements. Goal aimed: increase time management and stress management/relaxation skills Initial Goal: Pt will participate in at least one individual or group Activity Therapy session before discharge. Weekly progress towards goal: 05/19 achieved Group participation level: minimal Weekly highlights: engaged slightly with Aromatherapy on Friday morning Behaviors observed: DIRECTOR OUTPATIENT SERVICES had [place] oil diffusing in Pt's room but she was indifferent about the aromatherapy. Pt. vocalized/tried to answer DIRECTOR OUTPATIENT SERVICES's questions once; however, did not make sense. She made frequent but brief eye contact with DIRECTOR OUTPATIENT SERVICES throughout the entire time. DIRECTOR OUTPATIENT SERVICES asked to file Pt's nails and Pt. seemed confused so DIRECTOR OUTPATIENT SERVICES demonstrated it and showed her the nail file. When asked, Pt. offered her hand to DIRECTOR OUTPATIENT SERVICES to look at her nails but she was resistive, pulling hand away when DIRECTOR OUTPATIENT SERVICES tried to reach for her hand to start filing. She did the same thing to the other hand. DIRECTOR OUTPATIENT SERVICES talked to Pt. about light hearted topics but Pt. seemed indifferent again. She brushed her own hair off and on but was overall difficult to engage. Plan: repeat goal Beneficial adaptations:
[2020-04-12 15:45] VITALS: BP 11/73
[2020-04-12] MEDS: MIRTAZAPINE 7.5 MG TABLET. PO SCH (20:36)
[2020-04-12] MEDS: LEVOTHYROXINE 50 MCG TABLET PO SCH (20:36)
[2020-04-12] MEDS: traZODone 50 MG TABLET. PO SCH (20:36)
[2020-04-12] MEDS: cloZAPine 25 MG TABLET PO SCH (20:37)
[2020-04-12] MEDS: ATORVASTATIN CALCIUM 20 MG TABLET PO SCH (20:37)
[2020-04-12] MEDS: SODIUM CHLORIDE 5% OPHTH OINTMENT 3.5GM TUBE. OU SCH (20:37)
[2020-04-12] MEDS: ESTRADIOL 0.01% VAGINAL CREAM 42.5GM TUBE. VG SCH (20:38)
--- NOTE | 2020-04-12 20:56 | PDOC ---
Exam Note: Julian Note: Please also refer to the separate dictated note~for this date of service dictated separately.~Patient seen individually. Discussed the patient with Nursing staff reviewed the chart.~Reviewed interim history and current functioning. Reviewed vital signs,~Labs/ Radiology~and current medications noted below. Continue current treatment with the changes noted in the dictated addendum note Assessment: Vital Signs/I&O: Vital Signs Date Time Temp Pulse Resp B/P (MAP) Pulse Ox O2 Delivery O2 Flow Rate FiO2 04/12/20 15:45 98.5 94 16 (53) 92 04/10/20 05:55 Room Air I & O 04/11/20 04/11/20 04/12/20 15:00 23:00 07:00 Intake Total 720 ml 300 ml Balance 720 ml 300 ml Current Medications: Meds: Current Medications Medications (Trade) Dose Ordered Sig/Bora Route PRN Reason Start Time Stop Time Status Last Admin Dose Admin Divalproex Sodium (Depakote Sprinkles) 250 mg BID PO 04/11/20 21:00 04/12/20 20:36 I have reviewed the current psychotropics carefully including drug interactions. Risk benefit ratio favors no change other than as noted in my dictated progress note. Diagnosis: Problems: (1) Schizoaffective disorder, bipolar type (2) Impulse control disorder, unspecified (3) Bipolar 1 disorder, manic, moderate (4) Anxiety disorder, unspecified (5) Mild cognitive impairment (6) Bipolar affective, mixed, sev w/ psych KIERSTEN WATT MD Apr 12, 2020 20:56
--- NOTE | 2020-04-13 00:50 | NUR ---
Nursing Note The patient was calm and cooperative this shift. the patient was able to state the name of this [facility] and her first and last name but was unable to give the year. The patient took her medication whole. the patient is currently sleeping in her room.
[2020-04-13 05:37] VITALS: BP 125/78
[2020-04-13] MEDS: prednisoLONE ACETATE 1% OPHTH SUSPENSION 5ML BOTTLE. OD SCH (09:00)
[2020-04-13] MEDS: FUROSEMIDE 20 MG TABLET PO SCH (10:16)
[2020-04-13] MEDS: DOCUSATE SODIUM 100 MG CAPSULE PO SCH ×2 (10:16→20:21)
[2020-04-13] MEDS: AMANTADINE HCL 100 MG PO SCH (10:16)
[2020-04-13] MEDS: CYANOCOBALAMIN (VITAMIN B-12) 1,000 MCG TABLET. PO SCH (10:16)
[2020-04-13] MEDS: MEMANTINE 10 MG TABLET. PO SCH ×2 (10:16→20:21)
[2020-04-13] MEDS: DIVALPROEX 125 MG CAP.SPRINK PO SCH ×2 (10:17→20:21)
[2020-04-13 15:38] VITALS: BP 119/73
[2020-04-13] MEDS: MIRTAZAPINE 7.5 MG TABLET. PO SCH (20:20)
[2020-04-13] MEDS: ATORVASTATIN CALCIUM 20 MG TABLET PO SCH (20:21)
[2020-04-13] MEDS: traZODone 50 MG TABLET. PO SCH (20:21)
[2020-04-13] MEDS: LEVOTHYROXINE 50 MCG TABLET PO SCH (20:21)
[2020-04-13] MEDS: cloZAPine 25 MG TABLET PO SCH (20:21)
[2020-04-13] MEDS: SODIUM CHLORIDE 5% OPHTH OINTMENT 3.5GM TUBE. OU SCH (20:22)
--- NOTE | 2020-04-13 20:48 | PDOC ---
Exam Note: Julian Note: This note is a late entry for 04/11/2020 covers elements not covered in my initial note. Subjective: The patient was seen face to face in the evening of 04/11/2020 with Romelia MUÑOZ. Discussed with nursing staff, reviewed the chart. She slept 8-3/4 hours previous night. She refused to get up in the morning, was given a blanket. She complained of feeling cold, then was more cooperative. Valproic acid level is subtherapeutic and we are increasing Depakote from 250 mg h.s. to 250 mg twice a day. Check CBC, CMP, valproic acid level in 3 days. I met with the patient in her room. Review of Systems: Ambulation impaired. She is somewhat tired. No CV, , pulmonary, eye system symptoms on review. Mental Status Exam: Oriented to herself and situation. She was just a little more verbally interactive as I met with her, some slight improvement, less paranoid, not pulling on her hair. Abstraction fair. Computation impaired. Language function is intact. Attention span is short. No clear suicidal or homicidal ideation. Laboratory Data: Reviewed. Impression: Schizoaffective disorders bipolar type mixed with psychotic features. Anxiety disorder unspecified. Impulse control disorder unspecified. Plan: Valproic acid level is subtherapeutic and we are increasing Depakote from 250 mg h.s. to 250 mg twice a day. Check CBC, CMP, valproic acid level in 3 days. We will make further adjustments as clinically indicated. Continue rest of the psychotropics. Assessment: Vital Signs/I&O: Vital Signs Date Time Temp Pulse Resp B/P (MAP) Pulse Ox O2 Delivery O2 Flow Rate FiO2 04/13/20 15:38 98.6 84 18 119/73 (88) 97 04/10/20 05:55 Room Air I & O 04/12/20 04/12/20 04/13/20 15:00 23:00 07:00 Intake Total 480 ml 480 ml Balance 480 ml 480 ml Current Medications: I have reviewed the current psychotropics carefully including drug interactions. Risk benefit ratio favors no change other than as noted in my dictated progress note. Diagnosis: Problems: (1) Impulse control disorder, unspecified (2) Anxiety disorder, unspecified (3) Mild cognitive impairment (4) Schizoaffective disorder, bipolar type (5) Tardive dyskinesia (6) Bipolar affective, mixed, sev w/ psych KIERSTEN WATT MD Apr 13, 2020 20:48
--- NOTE | 2020-04-13 21:11 | PDOC ---
Exam Note: Julian Note: This note is a late entry for 04/12/2020 covers elements not covered in my initial note. Subjective: The patient was seen on telehealth rounds in the morning of 04/12/2020 for treatment team meeting with Chiara Lerner and Barbi, social services analyst, Yasmin, activity therapy, and Romelia MUÑOZ. Discussed with nursing staff, reviewed the chart. She slept 8-1/4 hours previous night. Appetite is 25%. The patient has been somewhat withdrawn. She has been pulling less on her hair, still withdrawn in her room. Appetite is a little better. Review of Systems: Ambulation impaired. No CV, , pulmonary, eye system symptoms on review. Mental Status Exam: Oriented to herself and situation. Once again she was a little more forthcoming but not very verbal as I met with her on telehealth rounds. Abstraction fair. Computation impaired. Language function is intact. Mood and affect is withdrawn, less paranoid. Attention span is short. No clear suicidal or homicidal ideation. Laboratory Data: Reviewed. Impression: Schizoaffective disorders bipolar type mixed with psychotic features. Anxiety disorder unspecified. Impulse control disorder unspecified. Plan: Continue psychotropics from initial note. Assessment: Vital Signs/I&O: Vital Signs Date Time Temp Pulse Resp B/P (MAP) Pulse Ox O2 Delivery O2 Flow Rate FiO2 04/13/20 15:38 98.6 84 18 119/73 (88) 97 04/10/20 05:55 Room Air I & O 04/12/20 04/12/20 04/13/20 15:00 23:00 07:00 Intake Total 480 ml 480 ml Balance 480 ml 480 ml Current Medications: I have reviewed the current psychotropics carefully including drug interactions. Risk benefit ratio favors no change other than as noted in my dictated progress note. Diagnosis: Problems: (1) Schizoaffective disorder, bipolar type (2) Impulse control disorder, unspecified (3) Anxiety disorder, unspecified (4) Mild cognitive impairment (5) Bipolar affective, mixed, sev w/ psych KIERSTEN WATT MD Apr 13, 2020 21:11
--- NOTE | 2020-04-13 21:31 | PDOC ---
Exam Note: Julian Note: Please also refer to the separate dictated note~for this date of service dictated separately.~Patient seen individually. Discussed the patient with Nursing staff reviewed the chart.~Reviewed interim history and current functioning. Reviewed vital signs,~Labs/ Radiology~and current medications noted below. Continue current treatment with the changes noted in the dictated addendum note Assessment: Vital Signs/I&O: Vital Signs Date Time Temp Pulse Resp B/P (MAP) Pulse Ox O2 Delivery O2 Flow Rate FiO2 04/13/20 15:38 98.6 84 18 119/73 (88) 97 04/10/20 05:55 Room Air I & O 04/12/20 04/12/20 04/13/20 15:00 23:00 07:00 Intake Total 480 ml 480 ml Balance 480 ml 480 ml Current Medications: I have reviewed the current psychotropics carefully including drug interactions. Risk benefit ratio favors no change other than as noted in my dictated progress note. Diagnosis: Problems: (1) Schizoaffective disorder, bipolar type (2) Impulse control disorder, unspecified (3) Anxiety disorder, unspecified (4) Bipolar affective, mixed, sev w/ psych (5) Mild cognitive impairment KIERSTEN WATT MD Apr 13, 2020 21:31
--- NOTE | 2020-04-13 21:52 | NUR ---
PT in room sleeping at time of assessment/medication pass. PT easily arousable. PT calm, cooperative and compliant with assessment and medications. PT took medications whole with water.
[2020-04-14 06:07] VITALS: BP 117/69
--- NOTE | 2020-04-14 07:47 | PDOC ---
Exam Note: Julian Note: This note is a late entry for 04/13/2020 covers elements not covered in my initial note. Subjective: The patient was seen on telehealth rounds in the evening of 04/13/2020 with Stacie MUÑOZ. Discussed with nursing staff, reviewed the chart. She slept 7-1/4 hours previous night. The patient has been eating better and drinking better and has been drinking the Ensure. Since the speech therapy is recommended she is back to non-thickened liquids. Review of Systems: Ambulation impaired. No CV, , pulmonary, eye system symptoms on review. She is picking less on herself. Mental Status Exam: Oriented to herself and situation. Speech is moderate latency. Often response is monosyllabic. She seems to have somewhat confused look about her but this is typical for her. At times she would verbally respond. She remains somewhat paranoid but improved. No suicidal or homicidal ideation. Attention span is short. Language function is intact. Laboratory Data: Reviewed. Impression: Schizoaffective disorders bipolar type mixed with psychotic features. Anxiety disorder unspecified. Impulse control disorder unspecified. Plan: Continue current psychotropics. We will gradually increase Clozaril and adjust Depakote to reach therapeutic level with the next set of labs and valproic acid level due on 04/15 Assessment: Vital Signs/I&O: Vital Signs Date Time Temp Pulse Resp B/P (MAP) Pulse Ox O2 Delivery O2 Flow Rate FiO2 04/14/20 06:07 97.4 81 18 117/69 (85) 96 04/10/20 05:55 Room Air I & O 04/13/20 04/13/20 04/14/20 15:00 23:00 07:00 Intake Total 1020 ml 240 ml Balance 1020 ml 240 ml Current Medications: I have reviewed the current psychotropics carefully including drug interactions. Risk benefit ratio favors no change other than as noted in my dictated progress note. Diagnosis: Problems: (1) Schizoaffective disorder, bipolar type (2) Impulse control disorder, unspecified (3) Anxiety disorder, unspecified (4) Bipolar affective, mixed, sev w/ psych KIERSTEN WATT MD Apr 14, 2020 07:47
[2020-04-14] MEDS: FUROSEMIDE 20 MG TABLET PO SCH (08:52)
[2020-04-14] MEDS: DIVALPROEX 125 MG CAP.SPRINK PO SCH ×2 (08:52→19:58)
[2020-04-14] MEDS: DOCUSATE SODIUM 100 MG CAPSULE PO SCH ×2 (08:52→19:56)
[2020-04-14] MEDS: AMANTADINE HCL 100 MG PO SCH (08:52)
[2020-04-14] MEDS: MEMANTINE 10 MG TABLET. PO SCH ×2 (08:53→19:57)
[2020-04-14] MEDS: CYANOCOBALAMIN (VITAMIN B-12) 1,000 MCG TABLET. PO SCH (08:53)
[2020-04-14] MEDS: prednisoLONE ACETATE 1% OPHTH SUSPENSION 5ML BOTTLE. OD SCH (08:54)
--- NOTE | 2020-04-14 11:40 | NUR ---
Nursing note: Pt in her bed resting when approached for AM med pass and assessment. She was pleasant, med compliant and cooperative. Pt had no complaints this morning. She is currently asleep in her room. Will continue to monitor.
[2020-04-14 15:37] VITALS: BP 126/82
[2020-04-14] MEDS: SODIUM CHLORIDE 5% OPHTH OINTMENT 3.5GM TUBE. OU SCH (19:55)
[2020-04-14] MEDS: ATORVASTATIN CALCIUM 20 MG TABLET PO SCH (19:56)
[2020-04-14] MEDS: MIRTAZAPINE 7.5 MG TABLET. PO SCH (19:56)
[2020-04-14] MEDS: LEVOTHYROXINE 50 MCG TABLET PO SCH (19:56)
[2020-04-14] MEDS: ESTRADIOL 0.01% VAGINAL CREAM 42.5GM TUBE. VG SCH (19:56)
[2020-04-14] MEDS: cloZAPine 25 MG TABLET PO SCH (19:57)
[2020-04-14] MEDS: traZODone 50 MG TABLET. PO SCH (19:58)
--- NOTE | 2020-04-14 20:46 | PDOC ---
Exam Note: Julian Note: Please also refer to the separate dictated note~for this date of service dictated separately.~Patient seen individually. Discussed the patient with Nursing staff reviewed the chart.~Reviewed interim history and current functioning. Reviewed vital signs,~Labs/ Radiology~and current medications noted below. Continue current treatment with the changes noted in the dictated addendum note Assessment: Vital Signs/I&O: Vital Signs Date Time Temp Pulse Resp B/P (MAP) Pulse Ox O2 Delivery O2 Flow Rate FiO2 04/14/20 15:37 98.2 81 16 126/82 (97) 99 04/10/20 05:55 Room Air I & O 04/13/20 04/13/20 04/14/20 15:00 23:00 07:00 Intake Total 1020 ml 240 ml Balance 1020 ml 240 ml Current Medications: I have reviewed the current psychotropics carefully including drug interactions. Risk benefit ratio favors no change other than as noted in my dictated progress note. Diagnosis: Problems: (1) Schizoaffective disorder, bipolar type (2) Impulse control disorder, unspecified (3) Anxiety disorder, unspecified (4) Bipolar affective, mixed, sev w/ psych (5) Mild cognitive impairment KIERSTEN WATT MD Apr 14, 2020 20:46
--- NOTE | 2020-04-14 23:59 | NUR ---
Patient is awake in bed on assumption of care. She is in pleasant spirits. Compliant with assessments and medications taken whole. No agitation. Patient denies any pain or discomfort. She appears to be sleeping comfortably at present time. Will continue to monitor.
[2020-04-15 06:25] VITALS: BP 103/68
[2020-04-15 06:59] LABS: BASO % 1 % (0-3); EOS # 0.2 x10^3/uL (0.0-0.7); EOS % 3 % (0-3); HEMATOCRIT 38.5 % (36.0-47.0); HEMOGLOBIN 12.5 g/dL (12.0-15.5); LYMPH # 2.4 x10^3/uL (1.0-4.8); LYMPH % 42 % (24-48); MEAN CORPUSCULAR HEMOGLOBIN 28 pg (25-35); MEAN CORPUSCULAR HGB CONC 32 g/dL (31-37); MEAN CORPUSCULAR VOLUME 85 fL (79-100); MONO # 0.5 x10^3/uL (0.0-1.1); MONO % 9 % (0-9); NEUT # 2.6 x10^3uL (1.8-7.7); NEUT % 46 % (31-73); PLATELET COUNT 216 x10^3/uL (140-400); RED BLOOD COUNT 4.53 x10^6/uL (3.50-5.40); WHITE BLOOD COUNT 5.7 x10^3/uL (4.0-11.0)
[2020-04-15 07:13] LABS: ALBUMIN 2.7 g/dL (3.4-5.0); ALBUMIN/GLOBULIN RATIO 0.7 (1.0-1.7); ALK PHOS 107 U/L (46-116); ALT (SGPT) 14 U/L (14-59); ANION GAP 5 (6-14); AST (SGOT) 15 U/L (15-37); BLOOD UREA NITROGEN 12 mg/dL (7-20); BUN/CREATININE RATIO 13 (6-20); CALCIUM 9.6 mg/dL (8.5-10.1); CARBON DIOXIDE 30 mmol/L (21-32); CHLORIDE 104 mmol/L (98-107); CREATININE 0.9 mg/dL (0.6-1.0); GFR 61.7; GLUCOSE 94 mg/dL (70-99); POTASSIUM 4.4 mmol/L (3.5-5.1); SODIUM 139 mmol/L (136-145); TOTAL BILIRUBIN 0.3 mg/dL (0.2-1.0); TOTAL PROTEIN 6.4 g/dL (6.4-8.2)
[2020-04-15 07:14] LABS: VAL ACID 36 mcg/mL (50-100)
[2020-04-15] MEDS: AMANTADINE HCL 100 MG PO SCH (08:35)
[2020-04-15] MEDS: MEMANTINE 10 MG TABLET. PO SCH ×2 (08:35→19:56)
[2020-04-15] MEDS: CYANOCOBALAMIN (VITAMIN B-12) 1,000 MCG TABLET. PO SCH (08:35)
[2020-04-15] MEDS: FUROSEMIDE 20 MG TABLET PO SCH (08:35)
[2020-04-15] MEDS: DOCUSATE SODIUM 100 MG CAPSULE PO SCH ×2 (08:35→19:55)
[2020-04-15] MEDS: DIVALPROEX 125 MG CAP.SPRINK PO SCH ×2 (08:36→19:57)
[2020-04-15] MEDS: prednisoLONE ACETATE 1% OPHTH SUSPENSION 5ML BOTTLE. OD SCH (08:36)
--- NOTE | 2020-04-15 09:46 | NUR ---
Patient is calm and cooperative. patient is more interactive with staff and willing to answer questions.
[2020-04-15 16:38] VITALS: BP 106/70
[2020-04-15] MEDS: SODIUM CHLORIDE 5% OPHTH OINTMENT 3.5GM TUBE. OU SCH (19:54)
[2020-04-15] MEDS: ATORVASTATIN CALCIUM 20 MG TABLET PO SCH (19:55)
[2020-04-15] MEDS: traZODone 50 MG TABLET. PO SCH (19:56)
[2020-04-15] MEDS: LEVOTHYROXINE 50 MCG TABLET PO SCH (19:56)
[2020-04-15] MEDS: MIRTAZAPINE 7.5 MG TABLET. PO SCH (19:57)
[2020-04-15] MEDS: cloZAPine 25 MG TABLET PO SCH (19:58)
--- NOTE | 2020-04-15 20:56 | PDOC ---
Exam Note: Julian Note: This note is a late entry for 04/14/2020 covers elements not covered in my initial note. Subjective: The patient was seen on telehealth rounds in the evening of 04/14/2020 with Renetta MUÑOZ as the unit is on a lockdown by the [facility] because there were 2 patients who turned out positive for COVID-19 and no admission or discharges can be done for next 2 weeks due to the quarantine requirements. Discussed with nursing staff, reviewed the chart. She slept 9 hours previous night. The patient has been little more interactive with staff, little more verbal. Oral intakes are little better as well and she is back on regular fluids and resents these less. Review of Systems: Ambulation impaired. No CV, , pulmonary, eye system symptoms on review. Mental Status Exam: Oriented to herself and situation. She is little more interactive but still not making full sentences. Verbal responses are very short. She still seems paranoid but less so than before. Speech is moderate latency. Often response is monosyllabic. No suicidal or homicidal ideation. Attention span is short. Language function is intact. Laboratory Data: Reviewed. Impression: Schizoaffective disorders bipolar type mixed with psychotic features. Anxiety disorder unspecified. Impulse control disorder unspecified. Plan: Continue current psychotropics. Assessment: Vital Signs/I&O: Vital Signs Date Time Temp Pulse Resp B/P (MAP) Pulse Ox O2 Delivery O2 Flow Rate FiO2 04/15/20 16:38 98.2 82 16 106/70 (82) 95 04/15/20 06:25 Room Air I & O 04/14/20 04/14/20 04/15/20 15:00 23:00 07:00 Intake Total 240 ml 480 ml Balance 240 ml 480 ml Labs: Laboratory Tests Test 04/15/20 06:45 White Blood Count 5.7 x10^3/uL (4.0-11.0) Red Blood Count 4.53 x10^6/uL (3.50-5.40) Hemoglobin 12.5 g/dL (12.0-15.5) Hematocrit 38.5 % (36.0-47.0) Mean Corpuscular Volume 85 fL (79-100) Mean Corpuscular Hemoglobin 28 pg (25-35) Mean Corpuscular Hemoglobin Concent 32 g/dL (31-37) Red Cell Distribution Width 15.0 % (11.5-14.5) H Platelet Count 216 x10^3/uL (140-400) Neutrophils (%) (Auto) 46 % (31-73) Lymphocytes (%) (Auto) 42 % (24-48) Monocytes (%) (Auto) 9 % (0-9) Eosinophils (%) (Auto) 3 % (0-3) Basophils (%) (Auto) 1 % (0-3) Neutrophils # (Auto) 2.6 x10^3uL (1.8-7.7) Lymphocytes # (Auto) 2.4 x10^3/uL (1.0-4.8) Monocytes # (Auto) 0.5 x10^3/uL (0.0-1.1) Eosinophils # (Auto) 0.2 x10^3/uL (0.0-0.7) Basophils # (Auto) 0.0 x10^3/uL (0.0-0.2) Sodium Level 139 mmol/L (136-145) Potassium Level 4.4 mmol/L (3.5-5.1) Chloride Level 104 mmol/L (98-107) Carbon Dioxide Level 30 mmol/L (21-32) Anion Gap 5 (6-14) L Blood Urea Nitrogen 12 mg/dL (7-20) Creatinine 0.9 mg/dL (0.6-1.0) Estimated GFR (Cockcroft-Gault) 61.7 BUN/Creatinine Ratio 13 (6-20) Glucose Level 94 mg/dL (70-99) Calcium Level 9.6 mg/dL (8.5-10.1) Total Bilirubin 0.3 mg/dL (0.2-1.0) Aspartate Amino Transferase (AST) 15 U/L (15-37) Alanine Aminotransferase (ALT) 14 U/L (14-59) Alkaline Phosphatase 107 U/L (46-116) Ammonia 15 mcmol/L (11-34) Total Protein 6.4 g/dL (6.4-8.2) Albumin 2.7 g/dL (3.4-5.0) L Albumin/Globulin Ratio 0.7 (1.0-1.7) L Valproic Acid Level 36 mcg/mL (50-100) L Valproic Acid Last Dose Date 04/14/20 Valproic Acid Last Dose Time 2100 Current Medications: I have reviewed the current psychotropics carefully including drug interactions. Risk benefit ratio favors no change other than as noted in my dictated progress note. Diagnosis: Problems: (1) Schizoaffective disorder, bipolar type (2) Impulse control disorder, unspecified (3) Anxiety disorder, unspecified (4) Bipolar affective, mixed, sev w/ psych (5) Mild cognitive impairment KIERSTEN WATT MD Apr 15, 2020 20:56
--- NOTE | 2020-04-15 21:08 | PDOC ---
Exam Note: Julian Note: Please also refer to the separate dictated note~for this date of service dictated separately.~Patient seen individually. Discussed the patient with Nursing staff reviewed the chart.~Reviewed interim history and current functioning. Reviewed vital signs,~Labs/ Radiology~and current medications noted below. Continue current treatment with the changes noted in the dictated addendum note Assessment: Vital Signs/I&O: Vital Signs Date Time Temp Pulse Resp B/P (MAP) Pulse Ox O2 Delivery O2 Flow Rate FiO2 04/15/20 16:38 98.2 82 16 106/70 (82) 95 04/15/20 06:25 Room Air I & O 04/14/20 04/14/20 04/15/20 15:00 23:00 07:00 Intake Total 240 ml 480 ml Balance 240 ml 480 ml Labs: Laboratory Tests Test 04/15/20 06:45 White Blood Count 5.7 x10^3/uL (4.0-11.0) Red Blood Count 4.53 x10^6/uL (3.50-5.40) Hemoglobin 12.5 g/dL (12.0-15.5) Hematocrit 38.5 % (36.0-47.0) Mean Corpuscular Volume 85 fL (79-100) Mean Corpuscular Hemoglobin 28 pg (25-35) Mean Corpuscular Hemoglobin Concent 32 g/dL (31-37) Red Cell Distribution Width 15.0 % (11.5-14.5) H Platelet Count 216 x10^3/uL (140-400) Neutrophils (%) (Auto) 46 % (31-73) Lymphocytes (%) (Auto) 42 % (24-48) Monocytes (%) (Auto) 9 % (0-9) Eosinophils (%) (Auto) 3 % (0-3) Basophils (%) (Auto) 1 % (0-3) Neutrophils # (Auto) 2.6 x10^3uL (1.8-7.7) Lymphocytes # (Auto) 2.4 x10^3/uL (1.0-4.8) Monocytes # (Auto) 0.5 x10^3/uL (0.0-1.1) Eosinophils # (Auto) 0.2 x10^3/uL (0.0-0.7) Basophils # (Auto) 0.0 x10^3/uL (0.0-0.2) Sodium Level 139 mmol/L (136-145) Potassium Level 4.4 mmol/L (3.5-5.1) Chloride Level 104 mmol/L (98-107) Carbon Dioxide Level 30 mmol/L (21-32) Anion Gap 5 (6-14) L Blood Urea Nitrogen 12 mg/dL (7-20) Creatinine 0.9 mg/dL (0.6-1.0) Estimated GFR (Cockcroft-Gault) 61.7 BUN/Creatinine Ratio 13 (6-20) Glucose Level 94 mg/dL (70-99) Calcium Level 9.6 mg/dL (8.5-10.1) Total Bilirubin 0.3 mg/dL (0.2-1.0) Aspartate Amino Transferase (AST) 15 U/L (15-37) Alanine Aminotransferase (ALT) 14 U/L (14-59) Alkaline Phosphatase 107 U/L (46-116) Ammonia 15 mcmol/L (11-34) Total Protein 6.4 g/dL (6.4-8.2) Albumin 2.7 g/dL (3.4-5.0) L Albumin/Globulin Ratio 0.7 (1.0-1.7) L Valproic Acid Level 36 mcg/mL (50-100) L Valproic Acid Last Dose Date 04/14/20 Valproic Acid Last Dose Time 2100 Current Medications: I have reviewed the current psychotropics carefully including drug interactions. Risk benefit ratio favors no change other than as noted in my dictated progress note. Diagnosis: Problems: (1) Schizoaffective disorder, bipolar type (2) Impulse control disorder, unspecified (3) Anxiety disorder, unspecified (4) Bipolar affective, mixed, sev w/ psych (5) Mild cognitive impairment KIERSTEN WATT MD Apr 15, 2020 21:08
[2020-04-16 06:18] VITALS: BP 114/76
[2020-04-16] MEDS: CYANOCOBALAMIN (VITAMIN B-12) 1,000 MCG TABLET. PO SCH (07:21)
[2020-04-16] MEDS: FUROSEMIDE 20 MG TABLET PO SCH (07:21)
[2020-04-16] MEDS: DOCUSATE SODIUM 100 MG CAPSULE PO SCH ×2 (07:21→19:42)
[2020-04-16] MEDS: MEMANTINE 10 MG TABLET. PO SCH ×2 (07:21→19:43)
[2020-04-16] MEDS: prednisoLONE ACETATE 1% OPHTH SUSPENSION 5ML BOTTLE. OD SCH (07:22)
[2020-04-16] MEDS: AMANTADINE HCL 100 MG PO SCH (07:22)
[2020-04-16] MEDS: DIVALPROEX 125 MG CAP.SPRINK PO SCH ×2 (07:34→19:44)
--- NOTE | 2020-04-16 15:18 | NUR ---
Pt withdrawn to room. In bed except meals. Has been compliant with meds and cares.
[2020-04-16 15:56] VITALS: BP 113/75
[2020-04-16] MEDS: SODIUM CHLORIDE 5% OPHTH OINTMENT 3.5GM TUBE. OU SCH (19:41)
[2020-04-16] MEDS: MIRTAZAPINE 7.5 MG TABLET. PO SCH (19:42)
[2020-04-16] MEDS: LEVOTHYROXINE 50 MCG TABLET PO SCH (19:42)
[2020-04-16] MEDS: ATORVASTATIN CALCIUM 20 MG TABLET PO SCH (19:43)
[2020-04-16] MEDS: traZODone 50 MG TABLET. PO SCH (19:43)
[2020-04-16] MEDS: cloZAPine 25 MG TABLET PO SCH (19:43)
--- NOTE | 2020-04-17 00:20 | PDOC ---
Exam Note: Julian Note: Please also refer to the separate dictated note~for this date of service dictated separately.~Patient seen individually. Discussed the patient with Nursing staff reviewed the chart.~Reviewed interim history and current functioning. Reviewed vital signs,~Labs/ Radiology~and current medications noted below. Continue current treatment with the changes noted in the dictated addendum note Assessment: Vital Signs/I&O: Vital Signs Date Time Temp Pulse Resp B/P (MAP) Pulse Ox O2 Delivery O2 Flow Rate FiO2 04/16/20 15:56 98.4 89 16 113/75 (88) 95 04/16/20 06:18 Room Air I & O 04/16/20 04/16/20 04/17/20 15:00 23:00 07:00 Intake Total 840 ml 580 ml Balance 840 ml 580 ml Current Medications: Meds: Current Medications Medications (Trade) Dose Ordered Sig/Bora Route PRN Reason Start Time Stop Time Status Last Admin Dose Admin Divalproex Sodium (Depakote Sprinkles) 375 mg BID PO 04/16/20 09:00 04/16/20 19:44 I have reviewed the current psychotropics carefully including drug interactions. Risk benefit ratio favors no change other than as noted in my dictated progress note. Diagnosis: Problems: (1) Schizoaffective disorder, bipolar type (2) Impulse control disorder, unspecified (3) Anxiety disorder, unspecified (4) Bipolar affective, mixed, sev w/ psych (5) Mild cognitive impairment KIERSTEN AWTT MD Apr 17, 2020 00:20
--- NOTE | 2020-04-17 00:22 | PDOC ---
Exam Note: Julian Note: This is a late entry for 04/16/2020. Please also refer to the separate dictated note~for this date of service dictated separately.~Patient seen individually. Discussed the patient with Nursing staff reviewed the chart.~Reviewed interim history and current functioning. Reviewed vital signs,~Labs/ Radiology~and cur rent medications noted below. Continue current treatment with the changes noted in the dictated addendum note Assessment: Vital Signs/I&O: Vital Signs Date Time Temp Pulse Resp B/P (MAP) Pulse Ox O2 Delivery O2 Flow Rate FiO2 04/16/20 15:56 98.4 89 16 113/75 (88) 95 04/16/20 06:18 Room Air I & O 04/16/20 04/16/20 04/17/20 15:00 23:00 07:00 Intake Total 840 ml 580 ml Balance 840 ml 580 ml Current Medications: Meds: Current Medications Medications (Trade) Dose Ordered Sig/Bora Route PRN Reason Start Time Stop Time Status Last Admin Dose Admin Divalproex Sodium (Depakote Sprinkles) 375 mg BID PO 04/16/20 09:00 04/16/20 19:44 I have reviewed the current psychotropics carefully including drug interactions. Risk benefit ratio favors no change other than as noted in my dictated progress note. Diagnosis: Problems: (1) Schizoaffective disorder, bipolar type (2) Bipolar affective, mixed, sev w/ psych (3) Mild cognitive impairment (4) Impulse control disorder, unspecified (5) Anxiety disorder, unspecified KIERSTEN WATT MD Apr 17, 2020 00:22
[2020-04-17 05:56] VITALS: BP 117/79
[2020-04-17] MEDS: DIVALPROEX 125 MG CAP.SPRINK PO SCH ×2 (08:53→20:15)
[2020-04-17] MEDS: CYANOCOBALAMIN (VITAMIN B-12) 1,000 MCG TABLET. PO SCH (08:53)
[2020-04-17] MEDS: DOCUSATE SODIUM 100 MG CAPSULE PO SCH ×2 (08:53→20:14)
[2020-04-17] MEDS: FUROSEMIDE 20 MG TABLET PO SCH (08:53)
[2020-04-17] MEDS: MEMANTINE 10 MG TABLET. PO SCH ×2 (08:53→20:14)
[2020-04-17] MEDS: prednisoLONE ACETATE 1% OPHTH SUSPENSION 5ML BOTTLE. OD SCH (08:54)
[2020-04-17] MEDS: AMANTADINE HCL 100 MG PO SCH (08:54)
--- NOTE | 2020-04-17 10:25 | NUR ---
Nursing note: Pt laying in bed when approached for AM meds and assessment. She awoke with no difficulties, was med compliant and cooperative. Pt had no concerns at that time. She laid back down and went to sleep. Will continue to monitor.
[2020-04-17 14:25] VITALS: BP 108/72
[2020-04-17] MEDS: ATORVASTATIN CALCIUM 20 MG TABLET PO SCH (20:14)
[2020-04-17] MEDS: MIRTAZAPINE 7.5 MG TABLET. PO SCH (20:14)
[2020-04-17] MEDS: LEVOTHYROXINE 50 MCG TABLET PO SCH (20:14)
[2020-04-17] MEDS: traZODone 50 MG TABLET. PO SCH (20:15)
[2020-04-17] MEDS: ESTRADIOL 0.01% VAGINAL CREAM 42.5GM TUBE. VG SCH (20:16)
[2020-04-17] MEDS: cloZAPine 25 MG TABLET PO SCH (20:16)
[2020-04-17] MEDS: SODIUM CHLORIDE 5% OPHTH OINTMENT 3.5GM TUBE. OU SCH (20:16)
--- NOTE | 2020-04-17 20:49 | PDOC ---
Exam Note: Julian Note: Please also refer to the separate dictated note~for this date of service dictated separately.~Patient seen individually. Discussed the patient with Nursing staff reviewed the chart.~Reviewed interim history and current functioning. Reviewed vital signs,~Labs/ Radiology~and current medications noted below. Continue current treatment with the changes noted in the dictated addendum note Assessment: Vital Signs/I&O: Vital Signs Date Time Temp Pulse Resp B/P (MAP) Pulse Ox O2 Delivery O2 Flow Rate FiO2 04/17/20 14:25 98.4 82 17 108/72 (84) 97 04/16/20 06:18 Room Air I & O 04/16/20 04/16/20 04/17/20 15:00 23:00 07:00 Intake Total 840 ml 580 ml Balance 840 ml 580 ml Current Medications: I have reviewed the current psychotropics carefully including drug interactions. Risk benefit ratio favors no change other than as noted in my dictated progress note. Diagnosis: Problems: (1) Schizoaffective disorder, bipolar type (2) Impulse control disorder, unspecified (3) Anxiety disorder, unspecified (4) Bipolar affective, mixed, sev w/ psych (5) Mild cognitive impairment KIERSTEN WATT MD Apr 17, 2020 20:49
--- NOTE | 2020-04-18 03:24 | NUR ---
At med pass pt was in bed and was cooperative with whole meds. Her speech is much clearer but still has some expressive aphasia. Tremors are significantly reduced from several weeks ago with less repetitive motions. She was able to say she is at [facility] and that it is 2006. She has been in her room this shift and has had no behaviors tonight.
[2020-04-18 05:27] VITALS: BP 125/82
[2020-04-18] MEDS: DOCUSATE SODIUM 100 MG CAPSULE PO SCH ×2 (08:01→20:20)
[2020-04-18] MEDS: MEMANTINE 10 MG TABLET. PO SCH ×2 (08:01→20:20)
[2020-04-18] MEDS: prednisoLONE ACETATE 1% OPHTH SUSPENSION 5ML BOTTLE. OD SCH (08:02)
[2020-04-18] MEDS: DIVALPROEX 125 MG CAP.SPRINK PO SCH ×2 (08:02→20:20)
[2020-04-18] MEDS: CYANOCOBALAMIN (VITAMIN B-12) 1,000 MCG TABLET. PO SCH (08:02)
[2020-04-18] MEDS: FUROSEMIDE 20 MG TABLET PO SCH (08:02)
[2020-04-18] MEDS: AMANTADINE HCL 100 MG PO SCH (08:02)
--- NOTE | 2020-04-18 08:36 | PDOC ---
Exam Note: Julian Note: This note is a late entry for 04/15/2020 covers elements not covered in my initial note. Subjective: The patient was seen on telehealth rounds in the evening of 04/15/2020 with Paulette MUÑOZ as the unit is on a lockdown by the [facility] because of COVID-19 exposure on the unit and no admission or discharges can be done for next 2 weeks due to the quarantine requirements. Discussed with nursing staff, reviewed the chart. She slept 7-3/4 hours previous night. Valproic acid level is 36 and lithium will be doubled and we will check CBC, CMP, valproic acid level in 3 days. Adjust to reach therapeutic level as a mood stabilizer. She continues to be slow to respond verbally. Review of Systems: Ambulation impaired. Positive for some tiredness, lying in bed as I met with her in her room. No CV, , pulmonary, eye system symptoms on review. Mental Status Exam: Oriented to herself and situation. Patients verbal responses are monosyllabic. She tends to ruminate about whatever it is she is thinking before she responds to a point that she often does not verbalize her response though she seems to know what she wants to say. No suicidal or homicidal ideation. Attention span is short. Language function is intact. Laboratory Data: Reviewed. Impression: Schizoaffective disorders bipolar type mixed with psychotic features. Anxiety disorder unspecified. Impulse control disorder unspecified. Plan: Continue current psychotropics. Increase the Depakote to 250 mg twice a day. Check CBC, CMP, valproic acid level in 3 days. Adjust further as clinical ly indicated. Assessment: Vital Signs/I&O: Vital Signs Date Time Temp Pulse Resp B/P (MAP) Pulse Ox O2 Delivery O2 Flow Rate FiO2 04/18/20 05:27 97.7 83 16 125/82 (96) 94 04/17/20 21:00 Room Air I & O 04/17/20 04/17/20 04/18/20 14:59 22:59 06:59 Intake Total 560 ml 320 ml Balance 560 ml 320 ml Current Medications: I have reviewed the current psychotropics carefully including drug interactions. Risk benefit ratio favors no change other than as noted in my dictated progress note. Diagnosis: Problems: (1) Schizoaffective disorder, bipolar type (2) Impulse control disorder, unspecified (3) Anxiety disorder, unspecified (4) Bipolar affective, mixed, sev w/ psych (5) Mild cognitive impairment KIERSTEN WATT MD Apr 18, 2020 08:35
--- NOTE | 2020-04-18 08:53 | PDOC ---
Exam Note: Julian Note: This note is a late entry for 04/16/2020 covers elements not covered in my initial note. Subjective: The patient was seen on telehealth rounds in the evening of 04/16/2020 with Paulette MUÑOZ as the unit is on a lockdown by the [facility] because of COVID-19 exposure on the unit and no admission or discharges can be done for next 2 weeks due to the quarantine requirements. Discussed with nursing staff, reviewed the chart. She slept 9-1/4 hours previous night. Review of Systems: Ambulation impaired. No CV, , pulmonary, eye system symptoms on review. Mental Status Exam: Oriented to herself and situation. Verbal responses are monosyllabic. No suicidal or homicidal ideation. Attention span is short. Language function is intact. Laboratory Data: Reviewed. Impression: Schizoaffective disorders bipolar type mixed with psychotic features. Anxiety disorder unspecified. Impulse control disorder unspecified. Plan: Continue current psychotropics. We will check absolute neutrophil count on 04/17. Adjust the Clozaril after this is completed. Maintain rest of the psychotropics as mentioned in my initial note. Assessment: Vital Signs/I&O: Vital Signs Date Time Temp Pulse Resp B/P (MAP) Pulse Ox O2 Delivery O2 Flow Rate FiO2 04/18/20 05:27 97.7 83 16 125/82 (96) 94 04/17/20 21:00 Room Air I & O 04/17/20 04/17/20 04/18/20 15:00 23:00 07:00 Intake Total 560 ml 320 ml Balance 560 ml 320 ml Current Medications: I have reviewed the current psychotropics carefully including drug interactions. Risk benefit ratio favors no change other than as noted in my dictated progress note. Diagnosis: Problems: (1) Schizoaffective disorder, bipolar type (2) Impulse control disorder, unspecified (3) Anxiety disorder, unspecified (4) Bipolar affective, mixed, sev w/ psych (5) Mild cognitive impairment KIERSTEN WATT MD Apr 18, 2020 08:53
--- NOTE | 2020-04-18 09:07 | PDOC ---
Exam Note: Julian Note: This note is a late entry for 04/17/2020 covers elements not covered in my initial note. Subjective: The patient was seen on telehealth rounds in the evening of 04/17/2020 with Renetta MUÑOZ as the unit is on a lockdown by the [facility] because of COVID-19 exposure on the unit and no admission or discharges can be done for next 2 weeks due to the quarantine requirements. Discussed with nursing staff, reviewed the chart. She slept 8-1/2 hours previous night. She remains somewhat withdrawn but less psychotic, more appropriate. Verbal response is little bit better than before. Review of Systems: Ambulation impaired. No CV, , pulmonary, eye system symptoms on review. Mental Status Exam: Oriented to herself and situation. Verbal responses bit better than before. No suicidal or homicidal ideation. Attention span is short. Language function is intact. Mood and affect withdrawn, less psychotic. When I questioned if she was doing better, she responded compared to what? We discussed if she is better than when she was first admitted and she reluctantly accepted. Laboratory Data: Reviewed. Impression: Schizoaffective disorders bipolar type mixed with psychotic fe atures. Anxiety disorder unspecified. Impulse control disorder unspecified. Plan: Continue current psychotropics. Absolute neutrophil count is unremarkable. We will go ahead and increase the Clozaril to 100 mg p.o. h.s. Assessment: Vital Signs/I&O: Vital Signs Date Time Temp Pulse Resp B/P (MAP) Pulse Ox O2 Delivery O2 Flow Rate FiO2 04/18/20 05:27 97.7 83 16 125/82 (96) 94 04/17/20 21:00 Room Air I & O 04/17/20 04/17/20 04/18/20 15:00 23:00 07:00 Intake Total 560 ml 320 ml Balance 560 ml 320 ml Current Medications: I have reviewed the current psychotropics carefully including drug interactions. Risk benefit ratio favors no change other than as noted in my dictated progress note. Diagnosis: Problems: (1) Schizoaffective disorder, bipolar type (2) Anxiety disorder, unspecified (3) Impulse control disorder, unspecified (4) Bipolar affective, mixed, sev w/ psych (5) Mild cognitive impairment KIERSTEN WATT MD Apr 18, 2020 09:07
--- NOTE | 2020-04-18 09:16 | NUR ---
Nursing note: Pt is in her room eating breakfast at time of AM med pass and assessment. She is pleasant, med compliant and cooperative. She is slightly more interactive and asked to have more water. Pt denied having any pain. She is currently laying in her bed. Will continue to monitor.
[2020-04-18 15:41] VITALS: BP 102/59
[2020-04-18] MEDS: cloZAPine 100 MG TABLET PO SCH (20:19)
[2020-04-18] MEDS: MIRTAZAPINE 7.5 MG TABLET. PO SCH (20:20)
[2020-04-18] MEDS: traZODone 50 MG TABLET. PO SCH (20:20)
[2020-04-18] MEDS: ATORVASTATIN CALCIUM 20 MG TABLET PO SCH (20:20)
[2020-04-18] MEDS: LEVOTHYROXINE 50 MCG TABLET PO SCH (20:20)
[2020-04-18] MEDS: SODIUM CHLORIDE 5% OPHTH OINTMENT 3.5GM TUBE. OU SCH (20:21)
--- NOTE | 2020-04-18 21:00 | PDOC ---
Exam Note: Julian Note: Please also refer to the separate dictated note~for this date of service dictated separately.~Patient seen individually. Discussed the patient with Nursing staff reviewed the chart.~Reviewed interim history and current functioning. Reviewed vital signs,~Labs/ Radiology~and current medications noted below. Continue current treatment with the changes noted in the dictated addendum note Assessment: Vital Signs/I&O: Vital Signs Date Time Temp Pulse Resp B/P (MAP) Pulse Ox O2 Delivery O2 Flow Rate FiO2 04/18/20 15:41 98.6 81 16 102/59 (73) 95 04/17/20 21:00 Room Air I & O 04/17/20 04/17/20 04/18/20 15:00 23:00 07:00 Intake Total 560 ml 320 ml Balance 560 ml 320 ml Current Medications: Meds: Current Medications Medications (Trade) Dose Ordered Sig/Bora Route PRN Reason Start Time Stop Time Status Last Admin Dose Admin Clozapine (Clozaril) 100 mg HS PO 04/18/20 21:00 04/18/20 20:19 I have reviewed the current psychotropics carefully including drug interactions. Risk benefit ratio favors no change other than as noted in my dictated progress note. Diagnosis: Problems: (1) Schizoaffective disorder, bipolar type (2) Impulse control disorder, unspecified (3) Anxiety disorder, unspecified (4) Bipolar affective, mixed, sev w/ psych (5) Mild cognitive impairment KIERSTEN WATT MD Apr 18, 2020 21:00
--- NOTE | 2020-04-19 00:18 | NUR ---
Location of Patient during Assessment: Pt was in bed in her room Behaviors Mood and Affect this shift: Drowsy, confused, flat affect Medication Compliant: Meds take whole Assessment Compliant: Pleasant and cooperative Response After Interventions: Stayed in bed and went to sleep
[2020-04-19 06:12] LABS: BASO % 1 % (0-3); EOS # 0.1 x10^3/uL (0.0-0.7); EOS % 2 % (0-3); HEMOGLOBIN 12.2 g/dL (12.0-15.5); LYMPH # 2.3 x10^3/uL (1.0-4.8); LYMPH % 45 % (24-48); MEAN CORPUSCULAR HEMOGLOBIN 28 pg (25-35); MEAN CORPUSCULAR HGB CONC 32 g/dL (31-37); MEAN CORPUSCULAR VOLUME 86 fL (79-100); MONO # 0.4 x10^3/uL (0.0-1.1); MONO % 8 % (0-9); NEUT # 2.2 x10^3uL (1.8-7.7); NEUT % 44 % (31-73); PLATELET COUNT 193 x10^3/uL (140-400); RED BLOOD COUNT 4.42 x10^6/uL (3.50-5.40); RED CELL DISTRIBUTION WIDTH 15.6 % (11.5-14.5)
[2020-04-19 06:16] VITALS: BP 109/80
[2020-04-19 06:22] LABS: ALBUMIN 2.7 g/dL (3.4-5.0); ALBUMIN/GLOBULIN RATIO 0.8 (1.0-1.7); ALK PHOS 106 U/L (46-116); ALT (SGPT) 14 U/L (14-59); ANION GAP 5 (6-14); AST (SGOT) 14 U/L (15-37); BLOOD UREA NITROGEN 14 mg/dL (7-20); BUN/CREATININE RATIO 18 (6-20); CALCIUM 9.4 mg/dL (8.5-10.1); CARBON DIOXIDE 29 mmol/L (21-32); CHLORIDE 104 mmol/L (98-107); CREATININE 0.8 mg/dL (0.6-1.0); GFR 70.7; GLUCOSE 93 mg/dL (70-99); POTASSIUM 4.2 mmol/L (3.5-5.1); SODIUM 138 mmol/L (136-145); TOTAL BILIRUBIN 0.3 mg/dL (0.2-1.0); TOTAL PROTEIN 6.3 g/dL (6.4-8.2)
[2020-04-19 06:23] LABS: VAL ACID 68 mcg/mL (50-100)
[2020-04-19] MEDS: DIVALPROEX 125 MG CAP.SPRINK PO SCH ×2 (09:00→19:49)
[2020-04-19] MEDS: AMANTADINE HCL 100 MG PO SCH (09:00)
[2020-04-19] MEDS: MEMANTINE 10 MG TABLET. PO SCH ×2 (09:00→19:50)
[2020-04-19] MEDS: FUROSEMIDE 20 MG TABLET PO SCH (09:00)
[2020-04-19] MEDS: DOCUSATE SODIUM 100 MG CAPSULE PO SCH ×2 (09:00→19:50)
[2020-04-19] MEDS: CYANOCOBALAMIN (VITAMIN B-12) 1,000 MCG TABLET. PO SCH (09:00)
[2020-04-19] MEDS: prednisoLONE ACETATE 1% OPHTH SUSPENSION 5ML BOTTLE. OD SCH (09:01)
--- NOTE | 2020-04-19 09:45 | NUR ---
Nursing note: Pt laying in bed when approached for AM med pass and assessment. She sat up and took her meds with no difficulty and was cooperative with her assessment. She was able to state the hospital name and thinks it is 2020. Pt denied having any pain or concerns. She laid back down in bed and is resting quietly. Will continue to monitor.
[2020-04-19 15:07] VITALS: BP 97/68
[2020-04-19] MEDS: ATORVASTATIN CALCIUM 20 MG TABLET PO SCH (19:49)
[2020-04-19] MEDS: MIRTAZAPINE 7.5 MG TABLET. PO SCH (19:49)
[2020-04-19] MEDS: cloZAPine 100 MG TABLET PO SCH (19:50)
[2020-04-19] MEDS: SODIUM CHLORIDE 5% OPHTH OINTMENT 3.5GM TUBE. OU SCH (19:50)
[2020-04-19] MEDS: traZODone 50 MG TABLET. PO SCH (19:50)
[2020-04-19] MEDS: ESTRADIOL 0.01% VAGINAL CREAM 42.5GM TUBE. VG SCH (19:50)
[2020-04-19] MEDS: LEVOTHYROXINE 50 MCG TABLET PO SCH (19:50)
--- NOTE | 2020-04-19 20:42 | NUR ---
Pt withdrawn to her room, lying in bed when approached. Pt calm, pleasant, and interactive. Pt cooperative with assessment and compliant with medications administered whole. Pt currently resting in bed with eyes closed.
--- NOTE | 2020-04-19 20:45 | PDOC ---
Exam Note: Julian Note: Please also refer to the separate dictated note~for this date of service dictated separately.~Patient seen individually. Discussed the patient with Nursing staff reviewed the chart.~Reviewed interim history and current functioning. Reviewed vital signs,~Labs/ Radiology~and current medications noted below. Continue current treatment with the changes noted in the dictated addendum note Assessment: Vital Signs/I&O: Vital Signs Date Time Temp Pulse Resp B/P (MAP) Pulse Ox O2 Delivery O2 Flow Rate FiO2 04/19/20 15:07 98.0 82 16 97/68 (78) 94 04/17/20 21:00 Room Air I & O 04/18/20 04/18/20 04/19/20 15:00 23:00 07:00 Intake Total 600 ml 480 ml 100 ml Balance 600 ml 480 ml 100 ml Labs: Laboratory Tests Test 04/19/20 05:55 White Blood Count 5.0 x10^3/uL (4.0-11.0) Red Blood Count 4.42 x10^6/uL (3.50-5.40) Hemoglobin 12.2 g/dL (12.0-15.5) Hematocrit 38.0 % (36.0-47.0) Mean Corpuscular Volume 86 fL (79-100) Mean Corpuscular Hemoglobin 28 pg (25-35) Mean Corpuscular Hemoglobin Concent 32 g/dL (31-37) Red Cell Distribution Width 15.6 % (11.5-14.5) H Platelet Count 193 x10^3/uL (140-400) Neutrophils (%) (Auto) 44 % (31-73) Lymphocytes (%) (Auto) 45 % (24-48) Monocytes (%) (Auto) 8 % (0-9) Eosinophils (%) (Auto) 2 % (0-3) Basophils (%) (Auto) 1 % (0-3) Neutrophils # (Auto) 2.2 x10^3uL (1.8-7.7) Lymphocytes # (Auto) 2.3 x10^3/uL (1.0-4.8) Monocytes # (Auto) 0.4 x10^3/uL (0.0-1.1) Eosinophils # (Auto) 0.1 x10^3/uL (0.0-0.7) Basophils # (Auto) 0.0 x10^3/uL (0.0-0.2) Sodium Level 138 mmol/L (136-145) Potassium Level 4.2 mmol/L (3.5-5.1) Chloride Level 104 mmol/L (98-107) Carbon Dioxide Level 29 mmol/L (21-32) Anion Gap 5 (6-14) L Blood Urea Nitrogen 14 mg/dL (7-20) Creatinine 0.8 mg/dL (0.6-1.0) Estimated GFR (Cockcroft-Gault) 70.7 BUN/Creatinine Ratio 18 (6-20) Glucose Level 93 mg/dL (70-99) Calcium Level 9.4 mg/dL (8.5-10.1) Total Bilirubin 0.3 mg/dL (0.2-1.0) Aspartate Amino Transferase (AST) 14 U/L (15-37) L Alanine Aminotransferase (ALT) 14 U/L (14-59) Alkaline Phosphatase 106 U/L (46-116) Total Protein 6.3 g/dL (6.4-8.2) L Albumin 2.7 g/dL (3.4-5.0) L Albumin/Globulin Ratio 0.8 (1.0-1.7) L Valproic Acid Level 68 mcg/mL (50-100) Valproic Acid Last Dose Date 04/18/2020 Valproic Acid Last Dose Time 2100 Current Medications: Meds: Current Medications Medications (Trade) Dose Ordered Sig/Bora Route PRN Reason Start Time Stop Time Status Last Admin Dose Admin Clozapine (Clozaril) 100 mg HS PO 04/18/20 21:00 04/19/20 19:50 I have reviewed the current psychotropics carefully including drug interactions. Risk benefit ratio favors no change other than as noted in my dictated progress note. Diagnosis: Problems: (1) Schizoaffective disorder, bipolar type (2) Impulse control disorder, unspecified (3) Anxiety disorder, unspecified (4) Bipolar affective, mixed, sev w/ psych (5) Mild cognitive impairment KIERSTEN WATT MD Apr 19, 2020 20:45
[2020-04-20 06:05] VITALS: BP 131/82
[2020-04-20] MEDS: MEMANTINE 10 MG TABLET. PO SCH ×2 (08:47→19:34)
[2020-04-20] MEDS: prednisoLONE ACETATE 1% OPHTH SUSPENSION 5ML BOTTLE. OD SCH (08:47)
[2020-04-20] MEDS: DOCUSATE SODIUM 100 MG CAPSULE PO SCH ×2 (08:48→19:35)
[2020-04-20] MEDS: DIVALPROEX 125 MG CAP.SPRINK PO SCH ×2 (08:48→19:34)
[2020-04-20] MEDS: CYANOCOBALAMIN (VITAMIN B-12) 1,000 MCG TABLET. PO SCH (08:48)
[2020-04-20] MEDS: FUROSEMIDE 20 MG TABLET PO SCH (08:48)
[2020-04-20] MEDS: AMANTADINE HCL 100 MG PO SCH (08:49)
--- NOTE | 2020-04-20 10:16 | NUR ---
WEEKLY ACTIVITY THERAPY NOTE- GROUPS/ 1:1s SUSPENDED OF 03/30- 1:1s resumed 04/05 Date of Admission: 03/21 Date of AT Assessment: 03/23 Precipitating behaviors that initiated intake and admission: Manic, digging at hair and face, anxious, rambles, upper and lower body movements. Goal aimed: increase time management and stress management/relaxation skills Initial Goal: Pt will participate in at least one individual or group Activity Therapy session before discharge. Goal changed 04/20: Pt will participate in at least one individual or group Activity Therapy session per week. Weekly progress towards goal: 07/17 Group participation level: 2 min, 1 mod Weekly highlights: parade Behaviors observed: pt loses interest in activities Plan: Change goal to: Pt will participate in at least one individual or group Activity Therapy session per week. Beneficial adaptations:
--- NOTE | 2020-04-20 10:18 | NUR ---
Nursing note: Pt sitting in chair in her room finishing her breakfast. She was pleasant, med compliant and cooperative. Pt asked if there was any activities in the day room. Pt was informed that we are not using the day room at this time and was asked about different activities she might like to do in her room. Randall was brought to her so she could listen to music. Pt very happy with this activity. She was smiling, laughing and dancing in her chair to the music. Will continue to monitor.
--- NOTE | 2020-04-20 11:27 | TX PLAN ---
Interdisciplinary Tx Plan Admission Information Mar 21, 2020 at 18:15 Legal Status (on Admission): Voluntary DPOA/Guardian Name: Hardik Smtih Contact Other Contact Name: Joselito Other Contact Verified Code Status: Full Code Allergies: Coded Allergies: Benzodiazepines (Verified Allergy, Intermediate, Unknown, 12/29/17) clonazepam (Verified Allergy, Intermediate, Unknown, 12/29/17) lorazepam (Verified Allergy, Intermediate, Unknown, 12/29/17) lithium (Verified Allergy, Unknown, 03/20/20) Diagnoses Primary Diagnosis: Schizoaffective D/O, Bipolar type Reasons for Admission: Agitated, Sig. Change Sleep, Anxiety/Panic Problem in Patient's Words: They are trying to so many meds on her it's throwing her for a loop. Additional Admission Comments: According to the intake, pt is manic, digging at her hair and face, agitated, restless, insomnia, sporadic meal intake, anxious, rambling, causing harm to self Problems Active Problems: withdrawn restless anxious Tardive Dyskenesia Inactive Problems: medication compliant Pt Strengths/Limitations Ability for Hart: Poor Cognitive Functioning/Ability: Poor Communication Skills/Ability: Poor Financial Resources: Poor Insight/Judgement: Fair Intellectual Ability: Fair Physical Health: Poor Social Skills: Poor Stability in Family: Good Stability in School/Work: Poor Verbal Skills: Poor Discharge Criteria Discharge Criteria: No need for close observ., Adequate arrangements @DC, Impr yazmin behavior, Improved mood/thought Preliminary Discharge Plan Preliminary DC Plan: Current Living Arrange. Special Precautions Fall Risk: Moderate [facility] Discharge Needs: At this time, it is unknown if pt will return to [facility] or not. Currently Utilized Resources Currently Utilized Resources/P: PCP Psychiatry/CHARGE LOADER Identified Problems/Hx/Goals Objectives/Short-Term Goals Short Term Goals: Dec. Anxiety/Panic, Decrease Isolation, Dec. Outbursts, Medication Stabilization, Monitor Med Effects, Promote Coping Skill Short Term Goals in Patient's: N/A Interventions/Frequency Staff Interventions/Frequency&: Psychiatrist to assess pt at least 3x per week for medication management. Social Work to assess pt at least 2x per week for discharge planning and assess any potential discharge barriers. Nursing to manage behaviors, assess medication effects, and complete 15 minute checks. Encourage participation in group activities (if applicable) or 1:1 engagement based off activity dept assessment. 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 Community Follow-up PCP Psychiatry Community Provider/Family Inpu: They are screwing up his medications. Treatment Plan Explained Patient/Behavior Specialist had this treatment plan explained to him/her as indicated by the signature below and has been given the opportunity to ask questions and make suggestions: Date: Patient/Behavior Specialist Signature: Status Update Update Pt is currently eating 65% of meal and sleeping 8 hours of sleep. Pt is compliant with medications and appears to be more interactive with staff. Pt is coming out of her room more and wanting to do activities and being in the dayroom; Pt has been listening to music on the tablet. Pt is currently on Clozaril and will continue to have an increase on this medication. Pt dtr questioned with nursing on getting pt admitted home. At this time, tx team does not feel it is the best step for pt as she is not stable to be home at this time. SW will follow up with pt family and finalize appropriate discharge plan. WILDA ROONEY Apr 20, 2020 11:27
[2020-04-20 15:04] VITALS: BP 104/69
[2020-04-20] MEDS: MIRTAZAPINE 7.5 MG TABLET. PO SCH (19:34)
[2020-04-20] MEDS: ATORVASTATIN CALCIUM 20 MG TABLET PO SCH (19:35)
[2020-04-20] MEDS: cloZAPine 100 MG TABLET PO SCH (19:35)
[2020-04-20] MEDS: traZODone 50 MG TABLET. PO SCH (19:35)
[2020-04-20] MEDS: LEVOTHYROXINE 50 MCG TABLET PO SCH (19:35)
[2020-04-20] MEDS: SODIUM CHLORIDE 5% OPHTH OINTMENT 3.5GM TUBE. OU SCH (19:35)
--- NOTE | 2020-04-20 20:58 | PDOC ---
Exam Note: Julian Note: Please also refer to the separate dictated note~for this date of service dictated separately.~Patient seen individually. Discussed the patient with Nursing staff reviewed the chart.~Reviewed interim history and current functioning. Reviewed vital signs,~Labs/ Radiology~and current medications noted below. Continue current treatment with the changes noted in the dictated addendum note Assessment: Vital Signs/I&O: Vital Signs Date Time Temp Pulse Resp B/P (MAP) Pulse Ox O2 Delivery O2 Flow Rate FiO2 04/20/20 15:04 98.9 88 18 104/69 (81) 96 04/20/20 06:05 Room Air I & O 04/19/20 04/19/20 04/20/20 15:00 23:00 07:00 Intake Total 1140 ml 660 ml 120 ml Balance 1140 ml 660 ml 120 ml Current Medications: I have reviewed the current psychotropics carefully including drug interactions. Risk benefit ratio favors no change other than as noted in my dictated progress note. Diagnosis: Problems: (1) Schizoaffective disorder, bipolar type (2) Impulse control disorder, unspecified (3) Anxiety disorder, unspecified (4) Bipolar affective, mixed, sev w/ psych (5) Mild cognitive impairment KIERSTEN WATT MD Apr 20, 2020 20:58
--- NOTE | 2020-04-20 21:22 | NUR ---
Pt sitting in hallway interacting with peer at shift change. Pt calm, pleasant, and social, more interactive and alert this evening. Pt cooperative with assessment and compliant with medications administered whole. Pt currently resting quietly in bed with eyes closed.
[2020-04-21 06:33] VITALS: BP 109/77
[2020-04-21 06:40] LABS: BASO % 1 % (0-3); EOS # 0.2 x10^3/uL (0.0-0.7); EOS % 3 % (0-3); HEMATOCRIT 36.6 % (36.0-47.0); HEMOGLOBIN 11.8 g/dL (12.0-15.5); LYMPH % 39 % (24-48); MEAN CORPUSCULAR HEMOGLOBIN 28 pg (25-35); MEAN CORPUSCULAR HGB CONC 32 g/dL (31-37); MEAN CORPUSCULAR VOLUME 86 fL (79-100); MONO # 0.5 x10^3/uL (0.0-1.1); MONO % 11 % (0-9); NEUT # 2.4 x10^3uL (1.8-7.7); NEUT % 46 % (31-73); PLATELET COUNT 190 x10^3/uL (140-400); RED BLOOD COUNT 4.25 x10^6/uL (3.50-5.40); WHITE BLOOD COUNT 5.1 x10^3/uL (4.0-11.0)
[2020-04-21 07:10] LABS: ALBUMIN 2.8 g/dL (3.4-5.0); ALBUMIN/GLOBULIN RATIO 0.8 (1.0-1.7); CALCIUM 9.3 mg/dL (8.5-10.1); CREATININE 0.7 mg/dL (0.6-1.0); GFR 82.5; POTASSIUM 4.4 mmol/L (3.5-5.1); TOTAL BILIRUBIN 0.2 mg/dL (0.2-1.0); TOTAL PROTEIN 6.3 g/dL (6.4-8.2)
--- NOTE | 2020-04-21 08:00 | PDOC ---
Exam Note: Julian Note: This note is a late entry for 04/18/2020 covers elements not covered in my initial note. Subjective: The patient was seen on telehealth rounds in the evening of 04/18/2020 with Renetta MUÑOZ as the unit is on a lockdown by the [facility] of COVID-19 exposure on the unit and no admission or discharges can be done. Discussed with nursing staff, reviewed the chart. She slept 8-1/2 hours previous night. Overall the patient is doing better since we have increased the Clozaril to 100 mg a day. She has been less psychotic. Body movements are better. She is a little more verbally interactive with staff. Review of Systems: Ambulation impaired. No CV, , pulmonary, eye system symptoms on review. Mental Status Exam: Oriented to herself and situation. Despite being somewhat withdrawn, she was a little more verbal as I met with her, smiling at times. Speech has moderate latency. Often response is monosyllabic. Attention span is short. Language function is intact. Mood and affect is withdrawn. Laboratory Data: Reviewed. Impression: Schizoaffective disorders bipolar type mixed with psychotic features. Anxiety disorder unspecified. Impulse control disorder unspecified. Plan: Continue current psychotropics. Assessment: Vital Signs/I&O: Vital Signs Date Time Temp Pulse Resp B/P (MAP) Pulse Ox O2 Delivery O2 Flow Rate FiO2 04/21/20 06:33 98.0 85 16 109/77 (88) 91 04/20/20 06:05 Room Air I & O 04/20/20 04/20/20 04/21/20 15:00 23:00 07:00 Intake Total 600 ml 360 ml Balance 600 ml 360 ml Labs: Laboratory Tests Test 04/21/20 06:07 White Blood Count 5.1 x10^3/uL (4.0-11.0) Red Blood Count 4.25 x10^6/uL (3.50-5.40) Hemoglobin 11.8 g/dL (12.0-15.5) L Hematocrit 36.6 % (36.0-47.0) Mean Corpuscular Volume 86 fL (79-100) Mean Corpuscular Hemoglobin 28 pg (25-35) Mean Corpuscular Hemoglobin Concent 32 g/dL (31-37) Red Cell Distribution Width 16.0 % (11.5-14.5) H Platelet Count 190 x10^3/uL (140-400) Neutrophils (%) (Auto) 46 % (31-73) Lymphocytes (%) (Auto) 39 % (24-48) Monocytes (%) (Auto) 11 % (0-9) H Eosinophils (%) (Auto) 3 % (0-3) Basophils (%) (Auto) 1 % (0-3) Neutrophils # (Auto) 2.4 x10^3uL (1.8-7.7) Lymphocytes # (Auto) 2.0 x10^3/uL (1.0-4.8) Monocytes # (Auto) 0.5 x10^3/uL (0.0-1.1) Eosinophils # (Auto) 0.2 x10^3/uL (0.0-0.7) Basophils # (Auto) 0.0 x10^3/uL (0.0-0.2) Sodium Level 145 mmol/L (136-145) Potassium Level 4.4 mmol/L (3.5-5.1) Chloride Level 111 mmol/L (98-107) H Carbon Dioxide Level 29 mmol/L (21-32) Anion Gap 5 (6-14) L Blood Urea Nitrogen 14 mg/dL (7-20) Creatinine 0.7 mg/dL (0.6-1.0) Estimated GFR (Cockcroft-Gault) 82.5 BUN/Creatinine Ratio 20 (6-20) Glucose Level 98 mg/dL (70-99) Calcium Level 9.3 mg/dL (8.5-10.1) Total Bilirubin 0.2 mg/dL (0.2-1.0) Aspartate Amino Transferase (AST) 13 U/L (15-37) L Alanine Aminotransferase (ALT) 16 U/L (14-59) Alkaline Phosphatase 100 U/L (46-116) Total Protein 6.3 g/dL (6.4-8.2) L Albumin 2.8 g/dL (3.4-5.0) L Albumin/Globulin Ratio 0.8 (1.0-1.7) L Current Medications: I have reviewed the current psychotropics carefully including drug interactions. Risk benefit ratio favors no change other than as noted in my dictated progress note. Diagnosis: Problems: (1) Schizoaffective disorder, bipolar type (2) Impulse control disorder, unspecified (3) Anxiety disorder, unspecified (4) Bipolar affective, mixed, sev w/ psych (5) Mild cognitive impairment KIERSTEN WATT MD Apr 21, 2020 08:00
[2020-04-21] MEDS: DOCUSATE SODIUM 100 MG CAPSULE PO SCH ×2 (08:09→19:26)
[2020-04-21] MEDS: FUROSEMIDE 20 MG TABLET PO SCH (08:09)
[2020-04-21] MEDS: DIVALPROEX 125 MG CAP.SPRINK PO SCH ×2 (08:09→19:27)
[2020-04-21] MEDS: CYANOCOBALAMIN (VITAMIN B-12) 1,000 MCG TABLET. PO SCH (08:09)
[2020-04-21] MEDS: MEMANTINE 10 MG TABLET. PO SCH ×2 (08:10→19:26)
[2020-04-21] MEDS: prednisoLONE ACETATE 1% OPHTH SUSPENSION 5ML BOTTLE. OD SCH (08:12)
[2020-04-21] MEDS: AMANTADINE HCL 100 MG PO SCH (08:13)
--- NOTE | 2020-04-21 08:13 | PDOC ---
Exam Note: Julian Note: This note is a late entry for 04/19/2020 covers elements not covered in my initial note. Subjective: The patient was seen on telehealth rounds in the evening of 04/19/2020 with Renetta MUÑOZ as the unit is on a lockdown by the [facility] of COVID-19 exposure on the unit and no admission or discharges can be done. Discussed with nursing staff, reviewed the chart. She slept 6-3/4 hours previous night. She was walking in the hallways, coming out of her room which is an improvement. Valproic acid level is 68, therapeutic. Review of Systems: Ambulation impaired. No CV, , pulmonary, eye system symptoms on review. Mental Status Exam: Oriented to herself and situation. She is somewhat withdrawn, less suspicious, verbally, slightly more interactive. She is still having difficulty composing sentences but better than before. No suicidal or homicidal ideation. Attention span is short. Language function is intact. Mood and affect somewhat withdrawn. Laboratory Data: Reviewed. Impression: Schizoaffective disorders bipolar type mixed with psychotic features. Anxiety disorder unspecified. Impulse control disorder unspecified. Plan: Continue current psychotropics. Valproic acid level is therapeutic. We will continue to increase Clozaril depending on absolute neutrophil counts. Adjust further as clinically indicated. Assessment: Vital Signs/I&O: Vital Signs Date Time Temp Pulse Resp B/P (MAP) Pulse Ox O2 Delivery O2 Flow Rate FiO2 04/21/20 06:33 98.0 85 16 109/77 (88) 91 04/20/20 06:05 Room Air I & O 04/20/20 04/20/20 04/21/20 15:00 23:00 07:00 Intake Total 600 ml 360 ml Balance 600 ml 360 ml Labs: Laboratory Tests Test 04/21/20 06:07 White Blood Count 5.1 x10^3/uL (4.0-11.0) Red Blood Count 4.25 x10^6/uL (3.50-5.40) Hemoglobin 11.8 g/dL (12.0-15.5) L Hematocrit 36.6 % (36.0-47.0) Mean Corpuscular Volume 86 fL (79-100) Mean Corpuscular Hemoglobin 28 pg (25-35) Mean Corpuscular Hemoglobin Concent 32 g/dL (31-37) Red Cell Distribution Width 16.0 % (11.5-14.5) H Platelet Count 190 x10^3/uL (140-400) Neutrophils (%) (Auto) 46 % (31-73) Lymphocytes (%) (Auto) 39 % (24-48) Monocytes (%) (Auto) 11 % (0-9) H Eosinophils (%) (Auto) 3 % (0-3) Basophils (%) (Auto) 1 % (0-3) Neutrophils # (Auto) 2.4 x10^3uL (1.8-7.7) Lymphocytes # (Auto) 2.0 x10^3/uL (1.0-4.8) Monocytes # (Auto) 0.5 x10^3/uL (0.0-1.1) Eosinophils # (Auto) 0.2 x10^3/uL (0.0-0.7) Basophils # (Auto) 0.0 x10^3/uL (0.0-0.2) Sodium Level 145 mmol/L (136-145) Potassium Level 4.4 mmol/L (3.5-5.1) Chloride Level 111 mmol/L (98-107) H Carbon Dioxide Level 29 mmol/L (21-32) Anion Gap 5 (6-14) L Blood Urea Nitrogen 14 mg/dL (7-20) Creatinine 0.7 mg/dL (0.6-1.0) Estimated GFR (Cockcroft-Gault) 82.5 BUN/Creatinine Ratio 20 (6-20) Glucose Level 98 mg/dL (70-99) Calcium Level 9.3 mg/dL (8.5-10.1) Total Bilirubin 0.2 mg/dL (0.2-1.0) Aspartate Amino Transferase (AST) 13 U/L (15-37) L Alanine Aminotransferase (ALT) 16 U/L (14-59) Alkaline Phosphatase 100 U/L (46-116) Total Protein 6.3 g/dL (6.4-8.2) L Albumin 2.8 g/dL (3.4-5.0) L Albumin/Globulin Ratio 0.8 (1.0-1.7) L Current Medications: I have reviewed the current psychotropics carefully including drug interactions. Risk benefit ratio favors no change other than as noted in my dictated progress note. Diagnosis: Problems: (1) Schizoaffective disorder, bipolar type (2) Impulse control disorder, unspecified (3) Anxiety disorder, unspecified (4) Bipolar affective, mixed, sev w/ psych (5) Mild cognitive impairment KIERSTEN WATT MD Apr 21, 2020 08:13
--- NOTE | 2020-04-21 08:39 | PDOC ---
Exam Note: Julian Note: This note is a late entry for 04/20/2020 covers elements not covered in my initial note. Subjective: The patient was seen on telehealth rounds in the morning of 04/20/2020 for treatment team meeting with Vale, social service staff, Chana, active therapy staff with Renetta MUÑOZ as the unit is on a lo ckdown by the [facility] of COVID-19 exposure on the unit and no admission or discharges can be done. Discussed with nursing staff, reviewed the chart. She slept 8 hours previous night. Appetite is 50%. She has been more interactive, coming out of her room asking to go to the dayroom and then to home. Also discussed with Dorys MUÑOZ in the evening. Reportedly the patient had a great day and has been more outside her room. Review of Systems: Ambulation impaired. No CV, , pulmonary, eye system symptoms on review. Mental Status Exam: Oriented to herself and situation. She was slightly more verbally interactive as I met with her. No suicidal or homicidal ideation. Attention span is short. Language function is intact. Mood and affect withdrawn. Laboratory Data: Reviewed. Impression: Schizoaffective disorders bipolar type mixed with psychotic features. Anxiety disorder unspecified. Impulse control disorder unspecified. Plan: Continue current psychotropics. We will continue to increase Clozaril in steps of 25 mg every week depending on WBC and absolute neutrophil counts. Assessment: Vital Signs/I&O: Vital Signs Date Time Temp Pulse Resp B/P (MAP) Pulse Ox O2 Delivery O2 Flow Rate FiO2 04/21/20 06:33 98.0 85 16 109/77 (88) 91 04/20/20 06:05 Room Air I & O 04/20/20 04/20/20 04/21/20 15:00 23:00 07:00 Intake Total 600 ml 360 ml Balance 600 ml 360 ml Labs: Laboratory Tests Test 04/21/20 06:07 White Blood Count 5.1 x10^3/uL (4.0-11.0) Red Blood Count 4.25 x10^6/uL (3.50-5.40) Hemoglobin 11.8 g/dL (12.0-15.5) L Hematocrit 36.6 % (36.0-47.0) Mean Corpuscular Volume 86 fL (79-100) Mean Corpuscular Hemoglobin 28 pg (25-35) Mean Corpuscular Hemoglobin Concent 32 g/dL (31-37) Red Cell Distribution Width 16.0 % (11.5-14.5) H Platelet Count 190 x10^3/uL (140-400) Neutrophils (%) (Auto) 46 % (31-73) Lymphocytes (%) (Auto) 39 % (24-48) Monocytes (%) (Auto) 11 % (0-9) H Eosinophils (%) (Auto) 3 % (0-3) Basophils (%) (Auto) 1 % (0-3) Neutrophils # (Auto) 2.4 x10^3uL (1.8-7.7) Lymphocytes # (Auto) 2.0 x10^3/uL (1.0-4.8) Monocytes # (Auto) 0.5 x10^3/uL (0.0-1.1) Eosinophils # (Auto) 0.2 x10^3/uL (0.0-0.7) Basophils # (Auto) 0.0 x10^3/uL (0.0-0.2) Sodium Level 145 mmol/L (136-145) Potassium Level 4.4 mmol/L (3.5-5.1) Chloride Level 111 mmol/L (98-107) H Carbon Dioxide Level 29 mmol/L (21-32) Anion Gap 5 (6-14) L Blood Urea Nitrogen 14 mg/dL (7-20) Creatinine 0.7 mg/dL (0.6-1.0) Estimated GFR (Cockcroft-Gault) 82.5 BUN/Creatinine Ratio 20 (6-20) Glucose Level 98 mg/dL (70-99) Calcium Level 9.3 mg/dL (8.5-10.1) Total Bilirubin 0.2 mg/dL (0.2-1.0) Aspartate Amino Transferase (AST) 13 U/L (15-37) L Alanine Aminotransferase (ALT) 16 U/L (14-59) Alkaline Phosphatase 100 U/L (46-116) Total Protein 6.3 g/dL (6.4-8.2) L Albumin 2.8 g/dL (3.4-5.0) L Albumin/Globulin Ratio 0.8 (1.0-1.7) L Current Medications: I have reviewed the current psychotropics carefully including drug interactions. Risk benefit ratio favors no change other than as noted in my dictated progress note. Diagnosis: Problems: (1) Schizoaffective disorder, bipolar type (2) Impulse control disorder, unspecified (3) Anxiety disorder, unspecified (4) Bipolar affective, mixed, sev w/ psych (5) Mild cognitive impairment KIERSTEN WATT MD Apr 21, 2020 08:39
--- NOTE | 2020-04-21 08:40 | NUR ---
Nursing note: Pt sleeping in her room at AM med pass and assessment. Pt woke pleasantly, was compliant with meds whole and cooperative with her assessment. She is currently sitting on the edge of her bed eating breakfast. Will continue to monitor.
[2020-04-21 15:40] VITALS: BP 100/69
[2020-04-21] MEDS: LEVOTHYROXINE 50 MCG TABLET PO SCH (19:26)
[2020-04-21] MEDS: MIRTAZAPINE 7.5 MG TABLET. PO SCH (19:26)
[2020-04-21] MEDS: SODIUM CHLORIDE 5% OPHTH OINTMENT 3.5GM TUBE. OU SCH (19:26)
[2020-04-21] MEDS: ATORVASTATIN CALCIUM 20 MG TABLET PO SCH (19:26)
[2020-04-21] MEDS: cloZAPine 100 MG TABLET PO SCH (19:27)
[2020-04-21] MEDS: traZODone 50 MG TABLET. PO SCH (19:27)
[2020-04-21] MEDS: ESTRADIOL 0.01% VAGINAL CREAM 42.5GM TUBE. VG SCH (19:27)
--- NOTE | 2020-04-21 20:56 | PDOC ---
Exam Note: Julian Note: Please also refer to the separate dictated note~for this date of service dictated separately.~Patient seen individually. Discussed the patient with Nursing staff reviewed the chart.~Reviewed interim history and current functioning. Reviewed vital signs,~Labs/ Radiology~and current medications noted below. Continue current treatment with the changes noted in the dictated addendum note Assessment: Vital Signs/I&O: Vital Signs Date Time Temp Pulse Resp B/P (MAP) Pulse Ox O2 Delivery O2 Flow Rate FiO2 04/21/20 15:40 98.3 91 17 100/69 (79) 96 Room Air I & O 04/20/20 04/20/20 04/21/20 15:00 23:00 07:00 Intake Total 600 ml 360 ml Balance 600 ml 360 ml Labs: Laboratory Tests Test 04/21/20 06:07 White Blood Count 5.1 x10^3/uL (4.0-11.0) Red Blood Count 4.25 x10^6/uL (3.50-5.40) Hemoglobin 11.8 g/dL (12.0-15.5) L Hematocrit 36.6 % (36.0-47.0) Mean Corpuscular Volume 86 fL (79-100) Mean Corpuscular Hemoglobin 28 pg (25-35) Mean Corpuscular Hemoglobin Concent 32 g/dL (31-37) Red Cell Distribution Width 16.0 % (11.5-14.5) H Platelet Count 190 x10^3/uL (140-400) Neutrophils (%) (Auto) 46 % (31-73) Lymphocytes (%) (Auto) 39 % (24-48) Monocytes (%) (Auto) 11 % (0-9) H Eosinophils (%) (Auto) 3 % (0-3) Basophils (%) (Auto) 1 % (0-3) Neutrophils # (Auto) 2.4 x10^3uL (1.8-7.7) Lymphocytes # (Auto) 2.0 x10^3/uL (1.0-4.8) Monocytes # (Auto) 0.5 x10^3/uL (0.0-1.1) Eosinophils # (Auto) 0.2 x10^3/uL (0.0-0.7) Basophils # (Auto) 0.0 x10^3/uL (0.0-0.2) Sodium Level 145 mmol/L (136-145) Potassium Level 4.4 mmol/L (3.5-5.1) Chloride Level 111 mmol/L (98-107) H Carbon Dioxide Level 29 mmol/L (21-32) Anion Gap 5 (6-14) L Blood Urea Nitrogen 14 mg/dL (7-20) Creatinine 0.7 mg/dL (0.6-1.0) Estimated GFR (Cockcroft-Gault) 82.5 BUN/Creatinine Ratio 20 (6-20) Glucose Level 98 mg/dL (70-99) Calcium Level 9.3 mg/dL (8.5-10.1) Total Bilirubin 0.2 mg/dL (0.2-1.0) Aspartate Amino Transferase (AST) 13 U/L (15-37) L Alanine Aminotransferase (ALT) 16 U/L (14-59) Alkaline Phosphatase 100 U/L (46-116) Total Protein 6.3 g/dL (6.4-8.2) L Albumin 2.8 g/dL (3.4-5.0) L Albumin/Globulin Ratio 0.8 (1.0-1.7) L Current Medications: I have reviewed the current psychotropics carefully including drug interactions. Risk benefit ratio favors no change other than as noted in my dictated progress note. Diagnosis: Problems: (1) Schizoaffective disorder, bipolar type (2) Bipolar 1 disorder, manic, moderate (3) Bipolar affective, mixed, sev w/ psych (4) Impulse control disorder, unspecified (5) Anxiety disorder, unspecified (6) Mild cognitive impairment KIERSTEN WATT MD Apr 21, 2020 20:56
--- NOTE | 2020-04-21 21:53 | NUR ---
Pt withdrawn to her room, lying in bed at shift change. Pt calm, pleasant, and interactive when approached. Pt cooperative with assessment and compliant with medications administered whole. Pt currently resting in bed with eyes closed.
[2020-04-22 06:24] VITALS: BP 99/63
[2020-04-22] MEDS: prednisoLONE ACETATE 1% OPHTH SUSPENSION 5ML BOTTLE. OD SCH (07:59)
[2020-04-22] MEDS: FUROSEMIDE 20 MG TABLET PO SCH (08:00)
[2020-04-22] MEDS: DOCUSATE SODIUM 100 MG CAPSULE PO SCH ×2 (08:00→20:22)
[2020-04-22] MEDS: MEMANTINE 10 MG TABLET. PO SCH ×2 (08:00→20:25)
[2020-04-22] MEDS: CYANOCOBALAMIN (VITAMIN B-12) 1,000 MCG TABLET. PO SCH (08:00)
[2020-04-22] MEDS: AMANTADINE HCL 100 MG PO SCH (08:00)
[2020-04-22] MEDS: DIVALPROEX 125 MG CAP.SPRINK PO SCH ×2 (08:02→20:26)
[2020-04-22 15:00] VITALS: BP 128/79
--- NOTE | 2020-04-22 18:08 | NUR ---
Pt up for meals in room. Has been withdrawn to room. Compliant with meds and cares.
[2020-04-22] MEDS: LEVOTHYROXINE 50 MCG TABLET PO SCH (20:21)
[2020-04-22] MEDS: SODIUM CHLORIDE 5% OPHTH OINTMENT 3.5GM TUBE. OU SCH (20:21)
[2020-04-22] MEDS: traZODone 50 MG TABLET. PO SCH (20:22)
[2020-04-22] MEDS: MIRTAZAPINE 7.5 MG TABLET. PO SCH (20:23)
[2020-04-22] MEDS: ATORVASTATIN CALCIUM 20 MG TABLET PO SCH (20:24)
[2020-04-22] MEDS: cloZAPine 100 MG TABLET PO SCH (20:25)
--- NOTE | 2020-04-22 21:08 | PDOC ---
Exam Note: Julian Note: Please also refer to the separate dictated note~for this date of service dictated separately.~Patient seen individually. Discussed the patient with Nursing staff reviewed the chart.~Reviewed interim history and current functioning. Reviewed vital signs,~Labs/ Radiology~and current medications noted below. Continue current treatment with the changes noted in the dictated addendum note Assessment: Vital Signs/I&O: Vital Signs Date Time Temp Pulse Resp B/P (MAP) Pulse Ox O2 Delivery O2 Flow Rate FiO2 04/22/20 15:00 98.7 89 16 128/79 (95) 98 Room Air I & O 04/21/20 04/21/20 04/22/20 15:00 23:00 07:00 Intake Total 440 ml 840 ml Balance 440 ml 840 ml Current Medications: I have reviewed the current psychotropics carefully including drug interactions. Risk benefit ratio favors no change other than as noted in my dictated progress note. Diagnosis: Problems: (1) Schizoaffective disorder, bipolar type (2) Impulse control disorder, unspecified (3) Anxiety disorder, unspecified (4) Bipolar affective, mixed, sev w/ psych (5) Mild cognitive impairment KIERSTEN WATT MD Apr 22, 2020 21:08
--- NOTE | 2020-04-22 23:59 | NUR ---
Patient is awake in bed on assumption of care. She is in pleasant spirits. Polite and interactive. Compliant with assessments and medications taken whole. No agitation. Patient denies any pain or discomfort. She appears to be sleeping comfortably at present time. Will continue to monitor.
[2020-04-23 06:08] VITALS: BP 109/70
[2020-04-23] MEDS: MEMANTINE 10 MG TABLET. PO SCH ×2 (08:22→20:35)
[2020-04-23] MEDS: DIVALPROEX 125 MG CAP.SPRINK PO SCH ×2 (08:22→20:34)
[2020-04-23] MEDS: CYANOCOBALAMIN (VITAMIN B-12) 1,000 MCG TABLET. PO SCH (08:22)
[2020-04-23] MEDS: prednisoLONE ACETATE 1% OPHTH SUSPENSION 5ML BOTTLE. OD SCH (08:22)
[2020-04-23] MEDS: AMANTADINE HCL 100 MG PO SCH (08:22)
[2020-04-23] MEDS: FUROSEMIDE 20 MG TABLET PO SCH (08:22)
[2020-04-23] MEDS: DOCUSATE SODIUM 100 MG CAPSULE PO SCH ×2 (08:22→20:34)
--- NOTE | 2020-04-23 09:08 | NUR ---
Patient quiet and calm. patient complaint with medication and assessment. patient more social than prior interactions.
[2020-04-23 16:07] VITALS: BP 140/80
[2020-04-23] MEDS: SODIUM CHLORIDE 5% OPHTH OINTMENT 3.5GM TUBE. OU SCH (20:32)
[2020-04-23] MEDS: cloZAPine 100 MG TABLET PO SCH (20:34)
[2020-04-23] MEDS: MIRTAZAPINE 7.5 MG TABLET. PO SCH (20:35)
[2020-04-23] MEDS: ATORVASTATIN CALCIUM 20 MG TABLET PO SCH (20:35)
[2020-04-23] MEDS: LEVOTHYROXINE 50 MCG TABLET PO SCH (20:35)
[2020-04-23] MEDS: traZODone 50 MG TABLET. PO SCH (20:36)
--- NOTE | 2020-04-23 21:25 | PDOC ---
Exam Note: Julian Note: This note is a late entry for 04/21/2020 covers elements not covered in my initial note. Subjective: The patient was seen on telehealth rounds in the evening of 04/21/2020 with Renetta MUÑOZ as the unit is on a lockdown by the [facility] of COVID-19 exposure on the unit with no admissions or discharges. Discussed with nursing staff, reviewed the chart. She slept 6-1/2 hours previous night. According to the nursing report, the patient has been doing much better. She has been coming out to the TV lounge area interacting with patients little more verbal. Review of Systems: Ambulation impaired. No CV, , pulmonary, eye system symptoms on review. Mental Status Exam: Oriented to herself and situation. I met with her in her room on telehealth rounds. She was trying to make sentences and communicate with me and subjectively stated she felt better, otherwise verbal responses are monosyllabic. No suicidal or homicidal ideation. Attention span is short. Language function is intact. Mood and affect withdrawn. Laboratory Data: Reviewed. Impression: Schizoaffective disorders bipolar type mixed with psychotic features. Anxiety disorder unspecified. Impulse control disorder unspecified. Plan: Continue psychotropics from initial note. We will maintain Depakote. Adjust to reach therapeutic level. Continue to increase Clozaril 25 mg a week following CBC and absolute neutrophil counts. Adjust further as clinically ind icated. We may consider adding lithium as well at some point depending on how she does with other changes. Assessment: Vital Signs/I&O: Vital Signs Date Time Temp Pulse Resp B/P (MAP) Pulse Ox O2 Delivery O2 Flow Rate FiO2 04/23/20 16:07 97.8 72 17 140/80 (100) 97 04/23/20 06:08 Room Air I & O 04/22/20 04/22/20 04/23/20 15:00 23:00 07:00 Intake Total 600 ml 760 ml Balance 600 ml 760 ml Current Medications: I have reviewed the current psychotropics carefully including drug interactions. Risk benefit ratio favors no change other than as noted in my dictated progress note. Diagnosis: Problems: (1) Schizoaffective disorder, bipolar type (2) Impulse control disorder, unspecified (3) Anxiety disorder, unspecified (4) Bipolar affective, mixed, sev w/ psych (5) Mild cognitive impairment SHUKRI,MAN M MD Apr 23, 2020 21:25
--- NOTE | 2020-04-23 21:36 | PDOC ---
Exam Note: Julian Note: This note is a late entry for 04/22/2020 covers elements not covered in my initial note. Subjective: The patient was seen on telehealth rounds in the evening of 04/22/2020 with Paulette MUÑOZ as the unit is on a lockdown by the [facility] of [facility] of COVID-19 exposure on the unit with no admissions or discharges. Discussed with nursing staff, reviewed the chart. She slept 8-1/4 hours previous night. Overall the patient has been again coming out little more in the TV lounge areas, slightly more interactive with others around her, interactive in groups. Appetite is fair. Review of Systems: Ambulation impaired. No CV, , pulmonary, eye system symptoms on review. Mental Status Exam: Oriented to herself and situation. I met with her in her room on telehealth rounds. Today she was just a little more verbally interactive, attempting to form sentences even more so than yesterday. Paranoia is better, subjectively she states she feels a little better. Attention span is short. Language function is intact. Mood and affect better than before. Laboratory Data: Reviewed. Impression: Schizoaffective disorders bipolar type mixed with psychotic features. Anxiety disorder unspecified. Impulse control disorder unspecified. Plan: Continue psychotropics unchanged. Assessment: Vital Signs/I&O: Vital Signs Date Time Temp Pulse Resp B/P (MAP) Pulse Ox O2 Delivery O2 Flow Rate FiO2 04/23/20 16:07 97.8 72 17 140/80 (100) 97 04/23/20 06:08 Room Air I & O 04/22/20 04/22/20 04/23/20 15:00 23:00 07:00 Intake Total 600 ml 760 ml Balance 600 ml 760 ml Current Medications: I have reviewed the current psychotropics carefully including drug interactions. Risk benefit ratio favors no change other than as noted in my dictated progress note. Diagnosis: Problems: (1) Schizoaffective disorder, bipolar type (2) Impulse control disorder, unspecified (3) Anxiety disorder, unspecified (4) Bipolar affective, mixed, sev w/ psych (5) Mild cognitive impairment KIERSTEN WATT MD Apr 23, 2020 21:36
--- NOTE | 2020-04-23 21:36 | PDOC ---
Exam Note: Julian Note: Please also refer to the separate dictated note~for this date of service dictated separately.~Patient seen individually. Discussed the patient with Nursing staff reviewed the chart.~Reviewed interim history and current functioning. Reviewed vital signs,~Labs/ Radiology~and current medications noted below. Continue current treatment with the changes noted in the dictated addendum note Assessment: Vital Signs/I&O: Vital Signs Date Time Temp Pulse Resp B/P (MAP) Pulse Ox O2 Delivery O2 Flow Rate FiO2 04/23/20 16:07 97.8 72 17 140/80 (100) 97 04/23/20 06:08 Room Air I & O 04/22/20 04/22/20 04/23/20 15:00 23:00 07:00 Intake Total 600 ml 760 ml Balance 600 ml 760 ml Current Medications: I have reviewed the current psychotropics carefully including drug interactions. Risk benefit ratio favors no change other than as noted in my dictated progress note. Diagnosis: Problems: (1) Schizoaffective disorder, bipolar type (2) Impulse control disorder, unspecified (3) Anxiety disorder, unspecified (4) Bipolar affective, mixed, sev w/ psych (5) Mild cognitive impairment KIERSTEN WATT MD Apr 23, 2020 21:36
[2020-04-24 06:02] VITALS: BP 122/76
[2020-04-24 06:30] LABS: ALBUMIN 2.5 g/dL (3.4-5.0); ALBUMIN/GLOBULIN RATIO 0.7 (1.0-1.7); CREATININE 0.8 mg/dL (0.6-1.0); GFR 70.7; POTASSIUM 4.5 mmol/L (3.5-5.1); TOTAL BILIRUBIN 0.1 mg/dL (0.2-1.0); TOTAL PROTEIN 5.9 g/dL (6.4-8.2)
[2020-04-24 06:38] LABS: BASO % 1 % (0-3); EOS # 0.2 x10^3/uL (0.0-0.7); EOS % 4 % (0-3); HEMATOCRIT 34.8 % (36.0-47.0); HEMOGLOBIN 11.2 g/dL (12.0-15.5); LYMPH # 2.4 x10^3/uL (1.0-4.8); LYMPH % 44 % (24-48); MEAN CORPUSCULAR HEMOGLOBIN 28 pg (25-35); MEAN CORPUSCULAR HGB CONC 32 g/dL (31-37); MEAN CORPUSCULAR VOLUME 86 fL (79-100); MONO # 0.6 x10^3/uL (0.0-1.1); MONO % 11 % (0-9); NEUT # 2.3 x10^3uL (1.8-7.7); NEUT % 41 % (31-73); PLATELET COUNT 180 x10^3/uL (140-400); RED BLOOD COUNT 4.04 x10^6/uL (3.50-5.40); RED CELL DISTRIBUTION WIDTH 16.5 % (11.5-14.5); WHITE BLOOD COUNT 5.5 x10^3/uL (4.0-11.0)
[2020-04-24] MEDS: AMANTADINE HCL 100 MG PO SCH (08:23)
[2020-04-24] MEDS: DOCUSATE SODIUM 100 MG CAPSULE PO SCH ×2 (08:23→20:26)
[2020-04-24] MEDS: DIVALPROEX 125 MG CAP.SPRINK PO SCH ×2 (08:23→20:26)
[2020-04-24] MEDS: CYANOCOBALAMIN (VITAMIN B-12) 1,000 MCG TABLET. PO SCH (08:24)
[2020-04-24] MEDS: MEMANTINE 10 MG TABLET. PO SCH ×2 (08:24→20:25)
[2020-04-24] MEDS: FUROSEMIDE 20 MG TABLET PO SCH (08:24)
[2020-04-24] MEDS: prednisoLONE ACETATE 1% OPHTH SUSPENSION 5ML BOTTLE. OD SCH (08:27)
--- NOTE | 2020-04-24 11:25 | NUR ---
Patient is sitting on edge of bed eating breakfast at time of assessment. patient is calm and cooperative and takes medications fine. Patient has no complaints. No further concerns today.
--- NOTE | 2020-04-24 14:21 | NUR ---
Was called in to shower room when patient was taking shower. She had a area on her left breast that looked like a pimple or in grown hair. We were able to pop it and some pus did come out and then it was bleeding. Patient stated it was hurting after that so we covered with a band aid so it would not bleed on her. Patient will let us know if it bothers her or if it changes. Will monitor to see if she needs an antibiotic cream or anything for it.
[2020-04-24 15:50] VITALS: BP 136/83
[2020-04-24] MEDS: SODIUM CHLORIDE 5% OPHTH OINTMENT 3.5GM TUBE. OU SCH (20:25)
[2020-04-24] MEDS: MIRTAZAPINE 7.5 MG TABLET. PO SCH (20:25)
[2020-04-24] MEDS: cloZAPine 100 MG TABLET PO SCH (20:25)
[2020-04-24] MEDS: traZODone 50 MG TABLET. PO SCH (20:26)
[2020-04-24] MEDS: ATORVASTATIN CALCIUM 20 MG TABLET PO SCH (20:26)
[2020-04-24] MEDS: LEVOTHYROXINE 50 MCG TABLET PO SCH (20:26)
[2020-04-24] MEDS: ESTRADIOL 0.01% VAGINAL CREAM 42.5GM TUBE. VG SCH (20:27)
--- NOTE | 2020-04-24 20:57 | PDOC ---
Exam Note: Julian Note: Please also refer to the separate dictated note~for this date of service dictated separately.~Patient seen individually. Discussed the patient with Nursing staff reviewed the chart.~Reviewed interim history and current functioning. Reviewed vital signs,~Labs/ Radiology~and current medications noted below. Continue current treatment with the changes noted in the dictated addendum note Assessment: Vital Signs/I&O: Vital Signs Date Time Temp Pulse Resp B/P (MAP) Pulse Ox O2 Delivery O2 Flow Rate FiO2 04/24/20 15:50 98.7 90 19 136/83 (100) 96 04/23/20 06:08 Room Air I & O 04/23/20 04/23/20 04/24/20 15:00 23:00 07:00 Intake Total 600 ml 360 ml Balance 600 ml 360 ml Labs: Laboratory Tests Test 04/24/20 05:52 White Blood Count 5.5 x10^3/uL (4.0-11.0) Red Blood Count 4.04 x10^6/uL (3.50-5.40) Hemoglobin 11.2 g/dL (12.0-15.5) L Hematocrit 34.8 % (36.0-47.0) L Mean Corpuscular Volume 86 fL (79-100) Mean Corpuscular Hemoglobin 28 pg (25-35) Mean Corpuscular Hemoglobin Concent 32 g/dL (31-37) Red Cell Distribution Width 16.5 % (11.5-14.5) H Platelet Count 180 x10^3/uL (140-400) Neutrophils (%) (Auto) 41 % (31-73) Lymphocytes (%) (Auto) 44 % (24-48) Monocytes (%) (Auto) 11 % (0-9) H Eosinophils (%) (Auto) 4 % (0-3) H Basophils (%) (Auto) 1 % (0-3) Neutrophils # (Auto) 2.3 x10^3uL (1.8-7.7) Lymphocytes # (Auto) 2.4 x10^3/uL (1.0-4.8) Monocytes # (Auto) 0.6 x10^3/uL (0.0-1.1) Eosinophils # (Auto) 0.2 x10^3/uL (0.0-0.7) Basophils # (Auto) 0.0 x10^3/uL (0.0-0.2) Sodium Level 143 mmol/L (136-145) Potassium Level 4.5 mmol/L (3.5-5.1) Chloride Level 109 mmol/L (98-107) H Carbon Dioxide Level 30 mmol/L (21-32) Anion Gap 4 (6-14) L Blood Urea Nitrogen 16 mg/dL (7-20) Creatinine 0.8 mg/dL (0.6-1.0) Estimated GFR (Cockcroft-Gault) 70.7 BUN/Creatinine Ratio 20 (6-20) Glucose Level 96 mg/dL (70-99) Calcium Level 9.0 mg/dL (8.5-10.1) Total Bilirubin 0.1 mg/dL (0.2-1.0) L Aspartate Amino Transferase (AST) 12 U/L (15-37) L Alanine Aminotransferase (ALT) 13 U/L (14-59) L Alkaline Phosphatase 92 U/L (46-116) Total Protein 5.9 g/dL (6.4-8.2) L Albumin 2.5 g/dL (3.4-5.0) L Albumin/Globulin Ratio 0.7 (1.0-1.7) L Current Medications: I have reviewed the current psychotropics carefully including drug interactions. Risk benefit ratio favors no change other than as noted in my dictated progress note. Diagnosis: Problems: (1) Schizoaffective disorder, bipolar type (2) Impulse control disorder, unspecified (3) Anxiety disorder, unspecified (4) Bipolar affective, mixed, sev w/ psych (5) Mild cognitive impairment KIERSTEN WATT MD Apr 24, 2020 20:57
[2020-04-24] MEDS: cloZAPine 25 MG TABLET PO SCH (21:22)
--- NOTE | 2020-04-24 21:25 | NUR ---
Pt withdrawn to her room, lying in bed at shift change. Pt calm, pleasant, and interactive when approached. Pt cooperative with assessment and compliant with medications administered whole. Clozaril increased to 125 mg at HS and initiated this shift. Pt currently resting quietly in bed.
[2020-04-25 05:57] VITALS: BP 142/88
--- NOTE | 2020-04-25 07:56 | PDOC ---
Exam Note: Julian Note: This note is a late entry for 04/23/2020 covers elements not covered in my initial note. Subjective: The patient was seen on telehealth rounds in the evening of 04/23/2020 with Paulette MUÑOZ as the unit is on a lockdown by the [facility] of COVID-19 exposure on the unit with no admissions or discharges. Discussed with nursing staff, reviewed the chart. She slept 6-3/4 hours previous night. The patient is spending more time out of bed in the dayroom which is an improvement, more interactive. Valproic acid level is 68 therapeutic. Review of Systems: Ambulation impaired. No CV, , pulmonary, eye system symptoms on review. Mental Status Exam: Oriented to herself and situation. She was more interactive, smiling at times. Speech is coherent. Abstraction is fair. Computation is impaired. Attention span is short. Language function is intact. Mood and affect better than before. Laboratory Data: Reviewed. Impression: Schizoaffective disorders bipolar type mixed with psychotic features. Anxiety disorder unspecified. Impulse control disorder unspecified. Plan: Continue psychotropics unchanged. We will check absolute neutrophil count CBC in the morning of 04/24 and increase Clozaril if the absolute neutrophil count is unremarkable. Assessment: Vital Signs/I&O: Vital Signs Date Time Temp Pulse Resp B/P (MAP) Pulse Ox O2 Delivery O2 Flow Rate FiO2 04/25/20 05:57 97.8 77 16 142/88 (106) 97 04/23/20 06:08 Room Air I & O 04/24/20 04/24/20 04/25/20 15:00 23:00 07:00 Intake Total 1320 ml 600 ml Balance 1320 ml 600 ml Current Medications: Meds: Current Medications Medications (Trade) Dose Ordered Sig/Bora Route PRN Reason Start Time Stop Time Status Last Admin Dose Admin Clozapine (Clozaril) 25 mg HS PO 04/24/20 21:00 04/24/20 21:22 I have reviewed the current psychotropics carefully including drug interactions. Risk benefit ratio favors no change other than as noted in my dictated progress note. Diagnosis: Problems: (1) Schizoaffective disorder, bipolar type (2) Impulse control disorder, unspecified (3) Anxiety disorder, unspecified (4) Bipolar affective, mixed, sev w/ psych (5) Mild cognitive impairment KIERSTEN WATT MD Apr 25, 2020 07:56
--- NOTE | 2020-04-25 08:10 | PDOC ---
Exam Note: Julian Note: This note is a late entry for 04/24/2020 covers elements not covered in my initial note. Subjective: The patient was seen on telehealth rounds in the evening of 04/24/2020 with Dorys MUÑZO as the unit is on a lockdown by the [facility] of COVID-19 exposure on the unit with no admissions or discharges. Discussed with nursing staff, reviewed the chart. She slept 6 hours previous night. Overall the patient is doing better, coming out more in groups, compliant with medications. WBC is 5.5, neutrophil is 41%. Absolute neutrophil count is still stable and we will increase the Clozaril from 100 mg h.s. to 125 mg h.s. Review of Systems: Ambulation impaired. No CV, , pulmonary, eye system symptoms on review. Mental Status Exam: Oriented to herself and situation. I discussed with the patient during the individual visit, her absolute neutrophil count and labs and increase in Clozaril. She seemed to understand and had a smile on her face. She is less psychotic, paranoid, slightly more verbal. Abstraction is fair. Computation is impaired. Attention span is short. Language function is intact. Mood and affect better than before. Laboratory Data: Reviewed. Impression: Schizoaffective disorders bipolar type mixed with psychotic features. Anxiety disorder unspecified. Impulse control disorder unspecified. Plan: Continue psychotropics unchanged. Assessment: Vital Signs/I&O: Vital Signs Date Time Temp Pulse Resp B/P (MAP) Pulse Ox O2 Delivery O2 Flow Rate FiO2 04/25/20 05:57 97.8 77 16 142/88 (106) 97 04/23/20 06:08 Room Air I & O 04/24/20 04/24/20 04/25/20 15:00 23:00 07:00 Intake Total 1320 ml 600 ml Balance 1320 ml 600 ml Current Medications: Meds: Current Medications Medications (Trade) Dose Ordered Sig/Bora Route PRN Reason Start Time Stop Time Status Last Admin Dose Admin Clozapine (Clozaril) 25 mg HS PO 04/24/20 21:00 04/24/20 21:22 I have reviewed the current psychotropics carefully including drug interactions. Risk benefit ratio favors no change other than as noted in my dictated progress note. Diagnosis: Problems: (1) Schizoaffective disorder, bipolar type (2) Anxiety disorder, unspecified (3) Impulse control disorder, unspecified (4) Bipolar affective, mixed, sev w/ psych (5) Mild cognitive impairment KIERSTEN WATT MD Apr 25, 2020 08:09
--- NOTE | 2020-04-25 08:15 | NUR ---
ROSALINE received call from ROSALINE Kraus at [facility], who reports that they are in a dilemma and do not have a bed for pt at the moment. "We can only take Covid positive patients until a non-Covid beds becomes available". ROSALINE informed Kaylin that ROSALINE was planning to have pt discharge on Friday once quarantine opened. Kaylin will check in with their sister company to see if they have a SNF bed that pt can go to until they can get a bed back available for her to be there. She will then contact ROSALINE on next steps.
[2020-04-25] MEDS: prednisoLONE ACETATE 1% OPHTH SUSPENSION 5ML BOTTLE. OD SCH (09:01)
[2020-04-25] MEDS: FUROSEMIDE 20 MG TABLET PO SCH (09:01)
[2020-04-25] MEDS: CYANOCOBALAMIN (VITAMIN B-12) 1,000 MCG TABLET. PO SCH (09:02)
[2020-04-25] MEDS: DOCUSATE SODIUM 100 MG CAPSULE PO SCH ×2 (09:02→20:05)
[2020-04-25] MEDS: MEMANTINE 10 MG TABLET. PO SCH ×2 (09:02→20:05)
[2020-04-25] MEDS: DIVALPROEX 125 MG CAP.SPRINK PO SCH ×2 (09:02→20:04)
[2020-04-25] MEDS: AMANTADINE HCL 100 MG PO SCH (09:04)
--- NOTE | 2020-04-25 10:52 | NUR ---
Nursing note: Pt laying in bed at time of AM med pass and assessment. She was pleasant, med compliant and cooperative. She had no complaints at time of assessment. Pt continues to be resting quietly in bed. Will continue to monitor.
[2020-04-25 15:47] VITALS: BP 103/65
[2020-04-25] MEDS: MIRTAZAPINE 7.5 MG TABLET. PO SCH (20:04)
[2020-04-25] MEDS: ATORVASTATIN CALCIUM 20 MG TABLET PO SCH (20:04)
[2020-04-25] MEDS: cloZAPine 25 MG TABLET PO SCH (20:05)
[2020-04-25] MEDS: traZODone 50 MG TABLET. PO SCH (20:05)
[2020-04-25] MEDS: cloZAPine 100 MG TABLET PO SCH (20:05)
[2020-04-25] MEDS: LEVOTHYROXINE 50 MCG TABLET PO SCH (20:05)
[2020-04-25] MEDS: SODIUM CHLORIDE 5% OPHTH OINTMENT 3.5GM TUBE. OU SCH (20:06)
--- NOTE | 2020-04-25 21:02 | PDOC ---
Exam Note: Julian Note: Please also refer to the separate dictated note~for this date of service dictated separately.~Patient seen individually. Discussed the patient with Nursing staff reviewed the chart.~Reviewed interim history and current functioning. Reviewed vital signs,~Labs/ Radiology~and current medications noted below. Continue current treatment with the changes noted in the dictated addendum note Assessment: Vital Signs/I&O: Vital Signs Date Time Temp Pulse Resp B/P (MAP) Pulse Ox O2 Delivery O2 Flow Rate FiO2 04/25/20 15:47 98.8 91 16 103/65 (78) 97 04/23/20 06:08 Room Air I & O 04/24/20 04/24/20 04/25/20 15:00 23:00 07:00 Intake Total 1320 ml 600 ml Balance 1320 ml 600 ml Current Medications: I have reviewed the current psychotropics carefully including drug interactions. Risk benefit ratio favors no change other than as noted in my dictated progress note. Diagnosis: Problems: (1) Schizoaffective disorder, bipolar type (2) Impulse control disorder, unspecified (3) Anxiety disorder, unspecified (4) Bipolar affective, mixed, sev w/ psych (5) Mild cognitive impairment KIERSTEN WATT MD Apr 25, 2020 21:02
--- NOTE | 2020-04-26 03:12 | NUR ---
Nursing Note The patient was withdrawn to her room this shift. The patient was calm and cooperative during her assessment and medication pass. The patient took her medication whole. The patient was brief during interactions with this nurse but answered assessment questions appropriately.
[2020-04-26 05:54] VITALS: BP 135/81
[2020-04-26] MEDS: prednisoLONE ACETATE 1% OPHTH SUSPENSION 5ML BOTTLE. OD SCH (09:00)
[2020-04-26] MEDS: AMANTADINE HCL 100 MG PO SCH (09:00)
[2020-04-26] MEDS: FUROSEMIDE 20 MG TABLET PO SCH (09:00)
[2020-04-26] MEDS: DIVALPROEX 125 MG CAP.SPRINK PO SCH ×2 (09:00→20:35)
[2020-04-26] MEDS: MEMANTINE 10 MG TABLET. PO SCH ×2 (09:00→20:35)
[2020-04-26] MEDS: CYANOCOBALAMIN (VITAMIN B-12) 1,000 MCG TABLET. PO SCH (09:00)
[2020-04-26] MEDS: DOCUSATE SODIUM 100 MG CAPSULE PO SCH ×2 (09:00→20:35)
--- NOTE | 2020-04-26 11:09 | NUR ---
Nursing note: Pt laying in her bed at time of AM med pass and assessment. She was pleasant, med compliant and cooperative. Pt is interactive and has no complaints at this time. She is currently laying quietly in bed. Will continue to monitor.
[2020-04-26 15:47] VITALS: BP 111/72
[2020-04-26] MEDS: MIRTAZAPINE 7.5 MG TABLET. PO SCH (20:35)
[2020-04-26] MEDS: LEVOTHYROXINE 50 MCG TABLET PO SCH (20:35)
[2020-04-26] MEDS: ESTRADIOL 0.01% VAGINAL CREAM 42.5GM TUBE. VG SCH (20:35)
[2020-04-26] MEDS: traZODone 50 MG TABLET. PO SCH (20:35)
[2020-04-26] MEDS: cloZAPine 25 MG TABLET PO SCH (20:35)
[2020-04-26] MEDS: ATORVASTATIN CALCIUM 20 MG TABLET PO SCH (20:35)
[2020-04-26] MEDS: cloZAPine 100 MG TABLET PO SCH (20:35)
[2020-04-26] MEDS: SODIUM CHLORIDE 5% OPHTH OINTMENT 3.5GM TUBE. OU SCH (20:36)
--- NOTE | 2020-04-26 20:51 | PDOC ---
Exam Note: Julian Note: Please also refer to the separate dictated note~for this date of service dictated separately.~Patient seen individually. Discussed the patient with Nursing staff reviewed the chart.~Reviewed interim history and current functioning. Reviewed vital signs,~Labs/ Radiology~and current medications noted below. Continue current treatment with the changes noted in the dictated addendum note Assessment: Vital Signs/I&O: Vital Signs Date Time Temp Pulse Resp B/P (MAP) Pulse Ox O2 Delivery O2 Flow Rate FiO2 04/26/20 15:47 98.2 86 18 111/72 (85) 96 04/23/20 06:08 Room Air I & O 04/25/20 04/25/20 04/26/20 15:00 23:00 07:00 Intake Total 840 ml 480 ml Balance 840 ml 480 ml Current Medications: I have reviewed the current psychotropics carefully including drug interactions. Risk benefit ratio favors no change other than as noted in my dictated progress note. Diagnosis: Problems: (1) Schizoaffective disorder, bipolar type (2) Impulse control disorder, unspecified (3) Anxiety disorder, unspecified (4) Bipolar affective, mixed, sev w/ psych (5) Mild cognitive impairment KIERSTEN WATT MD Apr 26, 2020 20:51
--- NOTE | 2020-04-27 01:33 | NUR ---
Nursing Note The patient remained in her room this shift. The patient was withdrawn and brief with her answers but answered her assessment questions appropriately. The patient took her medication whole.
[2020-04-27 06:07] VITALS: BP 116/74
--- NOTE | 2020-04-27 08:08 | PDOC ---
Exam Note: Julian Note: This note is a late entry for 04/25/2020 covers elements not covered in my initial note. Subjective: The patient was seen on telehealth rounds in the evening of 04/25/2020 with Renetta MUÑOZ as the unit is on a lockdown by the [facility] of COVID-19 exposure on the unit with no admissions or discharges. Discussed with nursing staff, reviewed the chart. She slept 7-3/4 hours previous night. Nursing report indicates the patient has had great day. She has been in bed most of the day but came out to the [facility] in the dayroom later in the day, watching a movie. Review of Systems: Ambulation impaired. No CV, , pulmonary, eye system symptoms on review. Mental Status Exam: Oriented to herself and situation. She is more verbal, interactive. Speech is coherent. Abstraction is fair. Computation is impaired. Attention span is short. Language function is intact. Mood and affect better than before. No suicidal or homicidal ideation. Psychotic symptoms appear improved. Laboratory Data: Reviewed. Impression: Schizoaffective disorders bipolar type mixed with psychotic features. Anxiety disorder unspecified. Impulse control disorder unspecified. Plan: Continue psychotropics unchanged. Assessment: Vital Signs/I&O: Vital Signs Date Time Temp Pulse Resp B/P (MAP) Pulse Ox O2 Delivery O2 Flow Rate FiO2 04/27/20 06:07 97.6 70 16 116/74 (88) 92 04/23/20 06:08 Room Air I & O 04/26/20 04/26/20 04/27/20 15:00 23:00 07:00 Intake Total 1200 ml 360 ml Balance 1200 ml 360 ml Current Medications: I have reviewed the current psychotropics carefully including drug interactions. Risk benefit ratio favors no change other than as noted in my dictated progress note. Diagnosis: Problems: (1) Schizoaffective disorder, bipolar type (2) Impulse control disorder, unspecified (3) Anxiety disorder, unspecified (4) Bipolar affective, mixed, sev w/ psych (5) Mild cognitive impairment KIERSTEN WATT MD Apr 27, 2020 08:08
--- NOTE | 2020-04-27 08:17 | NUR ---
ROSALINE received a call from ROSALINE Ewing at [facility], re: sending a referral to the post acute for pt to go there. Kaylin reports that she spoke with pt luz mariar Ava about pt going home instead. ROSALINE informed Kaylin that pt the psychiatrist will not approve of that plan; ROSALINE will discuss that with the family.
--- NOTE | 2020-04-27 08:18 | PDOC ---
Exam Note: Julian Note: This note is a late entry for 04/26/2020 covers elements not covered in my initial note. Subjective: The patient was seen on telehealth rounds in the evening of 04/26/2020 with Renetta MUÑOZ as the unit is on a lockdown by the [facility] of COVID-19 exposure on the unit with no admissions or discharges. Discussed with nursing staff, reviewed the chart. She slept 8-1/2 hours previous night. We are repeating the speech evaluation to see if the diet can be progressed to mechanical soft. She is generally doing better. Review of Systems: Ambulation impaired. No CV, , pulmonary, eye system symptoms on review. Mental Status Exam: Patient is oriented to herself and situation. She is little more verbal, interactive, less psychotic. Thought processes appear more logical and connected. Abstraction is fair. Computation is impaired. Attention span is short. Language function is intact. Psychotic symptoms are much improved. Laboratory Data: Reviewed. Impression: Schizoaffective disorders bipolar type mixed with psychotic features. Anxiety disorder unspecified. Impulse control disorder unspecified. Plan: Continue psychotropics unchanged. Assessment: Vital Signs/I&O: Vital Signs Date Time Temp Pulse Resp B/P (MAP) Pulse Ox O2 Delivery O2 Flow Rate FiO2 04/27/20 06:07 97.6 70 16 116/74 (88) 92 04/23/20 06:08 Room Air I & O 04/26/20 04/26/20 04/27/20 15:00 23:00 07:00 Intake Total 1200 ml 360 ml Balance 1200 ml 360 ml Current Medications: I have reviewed the current psychotropics carefully including drug interactions. Risk benefit ratio favors no change other than as noted in my dictated progress note. Diagnosis: Problems: (1) Schizoaffective disorder, bipolar type (2) Impulse control disorder, unspecified (3) Anxiety disorder, unspecified (4) Bipolar affective, mixed, sev w/ psych (5) Mild cognitive impairment KIERSTEN WATT MD Apr 27, 2020 08:18
[2020-04-27] MEDS: MEMANTINE 10 MG TABLET. PO SCH ×2 (08:25→20:16)
[2020-04-27] MEDS: DIVALPROEX 125 MG CAP.SPRINK PO SCH ×2 (08:26→20:16)
[2020-04-27] MEDS: CYANOCOBALAMIN (VITAMIN B-12) 1,000 MCG TABLET. PO SCH (08:26)
[2020-04-27] MEDS: AMANTADINE HCL 100 MG PO SCH (08:26)
[2020-04-27] MEDS: FUROSEMIDE 20 MG TABLET PO SCH (08:26)
[2020-04-27] MEDS: DOCUSATE SODIUM 100 MG CAPSULE PO SCH ×2 (08:26→20:16)
[2020-04-27] MEDS: prednisoLONE ACETATE 1% OPHTH SUSPENSION 5ML BOTTLE. OD SCH (08:27)
--- NOTE | 2020-04-27 10:22 | NUR ---
Patient sitting on edge of bed eating breakfast at time of assessment. Patient is calm and cooperative and takes medications whole. Patient has no complaints at this time. No further concerns at this time.
--- NOTE | 2020-04-27 11:42 | NUR ---
Spoke to speech therapy with patient progress we will change her diet to Dysphagia 2 with thin liquids.
--- NOTE | 2020-04-27 13:49 | NUR ---
ROSALINE sent referral to [facility] for admission as pt is not able to return to her normal residence at [place]. ROSALINE will be able to send updates next week as pt will discharge Tuesday 05/08.
--- NOTE | 2020-04-27 13:53 | NUR ---
SW attempted to contact Ava, pt dtr, to discuss her questions and concerns as relayed by the SW from [facility]. SW left a message for Ava to contact ROSALINE when possible to discuss discharge questions and concerns.
--- NOTE | 2020-04-27 14:14 | NUR ---
WEEKLY ACTIVITY THERAPY NOTE- GROUPS/ 1:1s SUSPENDED OF 03/30- 1:1s resumed 04/05 Date of Admission: 03/21 Date of AT Assessment: 03/23 Precipitating behaviors that initiated intake and admission: Manic, digging at hair and face, anxious, rambles, upper and lower body movements. Goal aimed: increase time management and stress management/relaxation skills Initial Goal: Pt will participate in at least one individual or group Activity Therapy session before discharge. Goal changed 04/20: Pt will participate in at least one individual or group Activity Therapy session per week. Weekly progress towards goal: achieved 05/19 Group participation level: 1 full Weekly highlights: increased alertness this week Behaviors observed: Fri PM: Pt answered name 5 questions. Pt has garbled speech at times and has to restate what she says. Pt requested ice water. AT got pt ice water and pt thanked AT. Pt was pleasant with staff. Plan: no change to goal Beneficial adaptations:
--- NOTE | 2020-04-27 14:23 | TX PLAN ---
Interdisciplinary Tx Plan Admission Information Mar 21, 2020 at 18:15 Legal Status (on Admission): Voluntary DPOA/Guardian Name: Hardik Smith Contact Other Contact Name: Joselito Other Contact Verified Code Status: Full Code Allergies: Coded Allergies: Benzodiazepines (Verified Allergy, Intermediate, Unknown, 12/29/17) clonazepam (Verified Allergy, Intermediate, Unknown, 12/29/17) lorazepam (Verified Allergy, Intermediate, Unknown, 12/29/17) lithium (Verified Allergy, Unknown, 03/20/20) Diagnoses Primary Diagnosis: Schizoaffective D/O, Bipolar type Reasons for Admission: Agitated, Sig. Change Sleep, Anxiety/Panic Problem in Patient's Words: They are trying to so many meds on her it's throwing her for a loop. Additional Admission Comments: According to the intake, pt is manic, digging at her hair and face, agitated, restless, insomnia, sporadic meal intake, anxious, rambling, causing harm to self Problems Active Problems: withdrawn restless anxious Tardive Dyskenesia Inactive Problems: medication compliant Pt Strengths/Limitations Ability for [place]: Poor Cognitive Functioning/Ability: Poor Communication Skills/Ability: Poor Financial Resources: Poor Insight/Judgement: Fair Intellectual Ability: Fair Physical Health: Poor Social Skills: Poor Stability in Family: Good Stability in School/Work: Poor Verbal Skills: Poor Discharge Criteria Discharge Criteria: No need for close observ., Adequate arrangements @DC, Impr yazmin behavior, Improved mood/thought Preliminary Discharge Plan Preliminary DC Plan: Current Living Arrange. Special Precautions Fall Risk: Moderate Initial [facility] Ident[facility] Discharge Needs: At this time, it is unknown if pt will return to [facility] or not. Currently Utilized Resources Currently Utilized Resources/P: PCP Psychiatry/EVENTS ASSOCIATE Identified Problems/Hx/Goals Objectives/Short-Term Goals Short Term Goals: Dec. Anxiety/Panic, Decrease Isolation, Dec. Outbursts, Medication Stabilization, Monitor Med Effects, Promote Coping Skill Short Term Goals in Patient's: N/A Interventions/Frequency Staff Interventions/Frequency&: Psychiatrist to assess pt at least 3x per week for medication management. Social Work to assess pt at least 2x per week for discharge planning and assess any potential discharge barriers. Nursing to manage behaviors, assess medication effects, and complete 15 minute checks. Encourage participation in group activities (if applicable) or 1:1 engagement based off activity dept assessment. 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 Community Follow-up PCP Psychiatry Community Provider/Family Inpu: They are screwing up his medications. 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 Pt is complaint with medications and become more interactive with staff and peers. Pt is seeking out activities to complete. Pt may need to be increased to a regular diet; currently she is on a pureed diet/soft foods and thin liquids. Speech therapy was consulted and will make appropriate changes from there. Pt is not able to discharge back to [facility] as they are right now only able to accept Covid positive patients. It is recommended that pt discharge to the [facility] acute side; despite the family request to may be have pt return home. WILDA ROONEY Apr 27, 2020 14:23
[2020-04-27 15:41] VITALS: BP 105/75
[2020-04-27] MEDS: LEVOTHYROXINE 50 MCG TABLET PO SCH (20:16)
[2020-04-27] MEDS: cloZAPine 100 MG TABLET PO SCH (20:16)
[2020-04-27] MEDS: traZODone 50 MG TABLET. PO SCH (20:16)
[2020-04-27] MEDS: MIRTAZAPINE 7.5 MG TABLET. PO SCH (20:16)
[2020-04-27] MEDS: cloZAPine 25 MG TABLET PO SCH (20:17)
[2020-04-27] MEDS: SODIUM CHLORIDE 5% OPHTH OINTMENT 3.5GM TUBE. OU SCH (20:17)
[2020-04-27] MEDS: ATORVASTATIN CALCIUM 20 MG TABLET PO SCH (20:17)
--- NOTE | 2020-04-27 20:56 | PDOC ---
Exam Note: Julian Note: Please also refer to the separate dictated note~for this date of service dictated separately.~Patient seen individually. Discussed the patient with Nursing staff reviewed the chart.~Reviewed interim history and current functioning. Reviewed vital signs,~Labs/ Radiology~and current medications noted below. Continue current treatment with the changes noted in the dictated addendum note Assessment: Vital Signs/I&O: Vital Signs Date Time Temp Pulse Resp B/P (MAP) Pulse Ox O2 Delivery O2 Flow Rate FiO2 04/27/20 15:41 98.5 86 20 105/75 (85) 98 04/23/20 06:08 Room Air I & O 04/26/20 04/26/20 04/27/20 14:59 22:59 06:59 Intake Total 1200 ml 360 ml Balance 1200 ml 360 ml Current Medications: I have reviewed the current psychotropics carefully including drug interactions. Risk benefit ratio favors no change other than as noted in my dictated progress note. Diagnosis: Problems: (1) Schizoaffective disorder, bipolar type (2) Impulse control disorder, unspecified (3) Anxiety disorder, unspecified (4) Bipolar affective, mixed, sev w/ psych (5) Mild cognitive impairment KIERSTEN WATT MD Apr 27, 2020 20:56
--- NOTE | 2020-04-28 02:34 | NUR ---
Nursing Note The patient remained in bed for most of this shift. The patient was withdrawn during interactions with this nurse but answered assessment questions appropriately. The patient took her medication whole. The patient discussed possible discharge dates with this nurse.
[2020-04-28 05:54] VITALS: BP 115/70
[2020-04-28] MEDS: MEMANTINE 10 MG TABLET. PO SCH ×2 (08:01→20:10)
[2020-04-28] MEDS: DIVALPROEX 125 MG CAP.SPRINK PO SCH ×2 (08:01→20:10)
[2020-04-28] MEDS: FUROSEMIDE 20 MG TABLET PO SCH (08:02)
[2020-04-28] MEDS: DOCUSATE SODIUM 100 MG CAPSULE PO SCH ×2 (08:02→20:07)
[2020-04-28] MEDS: AMANTADINE HCL 100 MG PO SCH (08:02)
[2020-04-28] MEDS: prednisoLONE ACETATE 1% OPHTH SUSPENSION 5ML BOTTLE. OD SCH (08:02)
[2020-04-28] MEDS: CYANOCOBALAMIN (VITAMIN B-12) 1,000 MCG TABLET. PO SCH (08:02)
--- NOTE | 2020-04-28 11:34 | NUR ---
Patient sitting in chair at time of assessment eating breakfast. Patient is alert and oriented with no complaints. Patient eating much better since she was taken off of puree. No further concerns at this time.
--- NOTE | 2020-04-28 13:25 | NUR ---
ROSALINE left another message for Ava to contact ROSALINE when possible to discuss her concerns about pt discharge. ROSALINE will attempt to contact pt dtr again at a later time.
[2020-04-28 15:26] VITALS: BP 108/72
[2020-04-28] MEDS: SODIUM CHLORIDE 5% OPHTH OINTMENT 3.5GM TUBE. OU SCH (20:06)
[2020-04-28] MEDS: ATORVASTATIN CALCIUM 20 MG TABLET PO SCH (20:07)
[2020-04-28] MEDS: ESTRADIOL 0.01% VAGINAL CREAM 42.5GM TUBE. VG SCH (20:07)
[2020-04-28] MEDS: MIRTAZAPINE 7.5 MG TABLET. PO SCH (20:07)
[2020-04-28] MEDS: LEVOTHYROXINE 50 MCG TABLET PO SCH (20:08)
[2020-04-28] MEDS: cloZAPine 100 MG TABLET PO SCH (20:08)
[2020-04-28] MEDS: traZODone 50 MG TABLET. PO SCH (20:09)
[2020-04-28] MEDS: cloZAPine 25 MG TABLET PO SCH (20:09)
--- NOTE | 2020-04-28 20:53 | PDOC ---
Exam Note: Julian Note: Please also refer to the separate dictated note~for this date of service dictated separately.~Patient seen individually. Discussed the patient with Nursing staff reviewed the chart.~Reviewed interim history and current functioning. Reviewed vital signs,~Labs/ Radiology~and current medications noted below. Continue current treatment with the changes noted in the dictated addendum note Assessment: Vital Signs/I&O: Vital Signs Date Time Temp Pulse Resp B/P (MAP) Pulse Ox O2 Delivery O2 Flow Rate FiO2 04/28/20 15:26 97.4 88 20 108/72 (84) 96 Room Air I & O 04/27/20 04/27/20 04/28/20 15:00 23:00 07:00 Intake Total 1080 ml 240 ml 200 ml Balance 1080 ml 240 ml 200 ml Current Medications: I have reviewed the current psychotropics carefully including drug interactions. Risk benefit ratio favors no change other than as noted in my dictated progress note. Diagnosis: Problems: (1) Schizoaffective disorder, bipolar type (2) Impulse control disorder, unspecified (3) Anxiety disorder, unspecified (4) Bipolar affective, mixed, sev w/ psych (5) Mild cognitive impairment KIERSTEN WATT MD Apr 28, 2020 20:53
--- NOTE | 2020-04-28 23:59 | NUR ---
Patient is in her room on assumption of care, sitting in her wheelchair. She is in pleasant spirits. Polite and interactive. Compliant with assessments and medications taken whole. No agitation. Patient denies any pain or discomfort. She appears to be sleeping comfortably at present time. Will continue to monitor.
[2020-04-29 05:59] VITALS: BP 113/75
[2020-04-29] MEDS: FUROSEMIDE 20 MG TABLET PO SCH (08:33)
[2020-04-29] MEDS: MEMANTINE 10 MG TABLET. PO SCH ×2 (08:33→20:21)
[2020-04-29] MEDS: CYANOCOBALAMIN (VITAMIN B-12) 1,000 MCG TABLET. PO SCH (08:33)
[2020-04-29] MEDS: DIVALPROEX 125 MG CAP.SPRINK PO SCH ×2 (08:33→20:22)
[2020-04-29] MEDS: DOCUSATE SODIUM 100 MG CAPSULE PO SCH ×2 (08:33→20:17)
[2020-04-29] MEDS: prednisoLONE ACETATE 1% OPHTH SUSPENSION 5ML BOTTLE. OD SCH (08:34)
[2020-04-29] MEDS: AMANTADINE HCL 100 MG PO SCH (08:34)
[2020-04-29 16:02] VITALS: BP 140/72
--- NOTE | 2020-04-29 17:26 | NUR ---
Pt has been up at bedside for meals. Quiet and withdrawn. Compliant with meds and cares. Pt states she was restless during night. Will notify Dr Pinzon.
[2020-04-29] MEDS: SODIUM CHLORIDE 5% OPHTH OINTMENT 3.5GM TUBE. OU SCH (20:16)
[2020-04-29] MEDS: traZODone 50 MG TABLET. PO SCH (20:17)
[2020-04-29] MEDS: MIRTAZAPINE 7.5 MG TABLET. PO SCH (20:18)
[2020-04-29] MEDS: LEVOTHYROXINE 50 MCG TABLET PO SCH (20:19)
[2020-04-29] MEDS: cloZAPine 100 MG TABLET PO SCH (20:19)
[2020-04-29] MEDS: cloZAPine 25 MG TABLET PO SCH (20:20)
[2020-04-29] MEDS: ATORVASTATIN CALCIUM 20 MG TABLET PO SCH (20:21)
--- NOTE | 2020-04-29 22:18 | NUR ---
Patient is in her room on assumption of care, sitting in her wheelchair. Polite and interactive. Compliant with assessments and medications taken whole. No agitation. Patient denies any pain or discomfort. She did complain that she was restless the previous night, so PRN Trazadone was given in addition to HS medications. She appears to be sleeping comfortably at present time. Will continue to monitor.
[2020-04-30 05:55] VITALS: BP 122/77
[2020-04-30] MEDS: DOCUSATE SODIUM 100 MG CAPSULE PO SCH ×2 (07:53→20:00)
[2020-04-30] MEDS: DIVALPROEX 125 MG CAP.SPRINK PO SCH ×2 (07:54→20:01)
[2020-04-30] MEDS: AMANTADINE HCL 100 MG PO SCH (07:54)
[2020-04-30] MEDS: CYANOCOBALAMIN (VITAMIN B-12) 1,000 MCG TABLET. PO SCH (07:54)
[2020-04-30] MEDS: MEMANTINE 10 MG TABLET. PO SCH ×2 (07:54→20:02)
[2020-04-30] MEDS: FUROSEMIDE 20 MG TABLET PO SCH (07:54)
[2020-04-30] MEDS: prednisoLONE ACETATE 1% OPHTH SUSPENSION 5ML BOTTLE. OD SCH (07:55)
[2020-04-30 15:47] VITALS: BP 106/68
--- NOTE | 2020-04-30 16:39 | NUR ---
Pt has been quiet and withdrawn. Up at bedside for meals. Has been compliant with meds and cares.This afternoon, pt asked if she could be in charge of anything. Provided pt with some activities to do in room.
[2020-04-30] MEDS: SODIUM CHLORIDE 5% OPHTH OINTMENT 3.5GM TUBE. OU SCH (20:00)
[2020-04-30] MEDS: MIRTAZAPINE 7.5 MG TABLET. PO SCH (20:00)
[2020-04-30] MEDS: LEVOTHYROXINE 50 MCG TABLET PO SCH (20:01)
[2020-04-30] MEDS: ATORVASTATIN CALCIUM 20 MG TABLET PO SCH (20:03)
[2020-04-30] MEDS: cloZAPine 100 MG TABLET PO SCH (20:03)
[2020-04-30] MEDS: cloZAPine 25 MG TABLET PO SCH (20:03)
[2020-04-30] MEDS: traZODone 50 MG TABLET. PO SCH (20:03)
--- NOTE | 2020-04-30 20:56 | PDOC ---
Exam Note: Julian Note: This note is a late entry for 04/27/2020 covers elements not covered in my initial note. Subjective: The patient was reviewed on telehealth rounds in the morning of 04/27/2020 for treatment team meeting with Chiara Dupree and Barbi (social service technician), Yasmin, activity therapy, and Stacie RN as the unit is on a lockdown by the [facility] of COVID-19 exposure on the unit with no admissions or discharges. Discussed with nursing staff, reviewed the chart. Discussed the patients progress at length and she is tolerating the increased Clozaril currently 125 mg a day but we will increase it hopefully to 175 mg a day prior to her discharge. She slept 6-3/4 hours previous night. Overall the patient has been a little more interactive, coming out in the hallway answering questions at times, sitting in the dayroom, watching movies with others. She is less paranoid. Her diet is being reassessed for advancement since she is doing better in this respect. Also in the evening discussed with Kingsley MUÑOZ. Review of Systems: No CV, , pulmonary, eye system symptoms on review. At times she is a little unsteady on her feet. Mental Status Exam: Patient is alert and oriented, somewhat withdrawn. She has been a little more verbal, interactive, less paranoid. Attention span is still somewhat easily distracted. Abstraction is fair. Computation is impaired. Attention span is short. Language function is intact. Psychotic symptoms are much improved. No suicidal or homicidal ideation. Laboratory Data: Reviewed. Impression: Schizoaffective disorders bipolar type mixed with psychotic features. Anxiety disorder unspecified. Impulse control disorder unspecified. Plan: Continue rest of the psychotropics unchanged and as noted above. Valproic acid level therapeutic at 68. Continue Depakote unchanged. Assessment: Vital Signs/I&O: Vital Signs Date Time Temp Pulse Resp B/P (MAP) Pulse Ox O2 Delivery O2 Flow Rate FiO2 04/30/20 15:47 97.6 89 1 106/68 (81) 98 04/28/20 15:26 Room Air I & O 04/29/20 04/29/20 04/30/20 15:00 23:00 07:00 Intake Total 1320 ml 1000 ml Balance 1320 ml 1000 ml Current Medications: I have reviewed the current psychotropics carefully including drug interactions. Risk benefit ratio favors no change other than as noted in my dictated progress note. Diagnosis: Problems: (1) Schizoaffective disorder, bipolar type (2) Impulse control disorder, unspecified (3) Anxiety disorder, unspecified (4) Bipolar affective, mixed, sev w/ psych (5) Mild cognitive impairment KIERSTEN WATT MD Apr 30, 2020 20:56
--- NOTE | 2020-04-30 21:18 | PDOC ---
Exam Note: Julian Note: This note is a late entry for 04/28/2020 covers elements not covered in my initial note. Subjective: The patient was reviewed on telehealth rounds in the evening of 04/28/2020 with Paulette MUÑOZ. The [facility] has opened up the unit for admission and discharges following quarantine for Covid-19 exposure. Discussed with nursing staff, reviewed the chart. She slept 7-1/2 hours previous night. She is doing better, less withdrawn, does interact with others, again goes to the dayroom and watches movies, had appropriate opportunities. This is an improvement from previous functioning. Review of Systems: Some unsteadiness of gait. No CV, , pulmonary, eye system symptoms on review. Mental Status Exam: Patient is reasonably oriented. Speech has some latency, coherent. Abstraction is fair. Computation is impaired. Attention span is short. Language function is intact. She was complaining about the diet and I will defer to dietary and speech for further clarification. Laboratory Data: Reviewed. Impression: Schizoaffective disorders bipolar type mixed with psychotic features. Anxiety disorder unspecified. Impulse control disorder unspecified. Plan: Continue current psychotropics. We will increase the Clozaril 25 mg a day each Friday after getting the absolute neutrophil counts to remain stable. Tentative discharge on 05/08 after we get 2 sets of the absolute neutrophil counts. Assessment: Vital Signs/I&O: Vital Signs Date Time Temp Pulse Resp B/P (MAP) Pulse Ox O2 Delivery O2 Flow Rate FiO2 04/30/20 15:47 97.6 89 1 106/68 (81) 98 04/28/20 15:26 Room Air I & O 04/29/20 04/29/20 04/30/20 15:00 23:00 07:00 Intake Total 1320 ml 1000 ml Balance 1320 ml 1000 ml Current Medications: I have reviewed the current psychotropics carefully including drug interactions. Risk benefit ratio favors no change other than as noted in my dictated progress note. Diagnosis: Problems: (1) Schizoaffective disorder, bipolar type (2) Impulse control disorder, unspecified (3) Anxiety disorder, unspecified (4) Bipolar affective, mixed, sev w/ psych (5) Mild cognitive impairment KIERSTEN WATT MD Apr 30, 2020 21:18
--- NOTE | 2020-04-30 21:59 | PDOC ---
Exam Note: Julian Note: Please also refer to the separate dictated note~for this date of service dictated separately.~Patient seen individually. Discussed the patient with Nursing staff reviewed the chart.~Reviewed interim history and current functioning. Reviewed vital signs,~Labs/ Radiology~and current medications noted below. Continue current treatment with the changes noted in the dictated addendum note Assessment: Vital Signs/I&O: Vital Signs Date Time Temp Pulse Resp B/P (MAP) Pulse Ox O2 Delivery O2 Flow Rate FiO2 04/30/20 15:47 97.6 89 1 106/68 (81) 98 04/28/20 15:26 Room Air I & O 04/29/20 04/29/20 04/30/20 15:00 23:00 07:00 Intake Total 1320 ml 1000 ml Balance 1320 ml 1000 ml Current Medications: I have reviewed the current psychotropics carefully including drug interactions. Risk benefit ratio favors no change other than as noted in my dictated progress note. Diagnosis: Problems: (1) Schizoaffective disorder, bipolar type (2) Anxiety disorder, unspecified (3) Impulse control disorder, unspecified (4) Bipolar affective, mixed, sev w/ psych (5) Mild cognitive impairment KIERSTEN WATT MD Apr 30, 2020 21:59
--- NOTE | 2020-04-30 23:59 | NUR ---
Patient is in her room on assumption of care, sitting in her wheelchair and working on a word search. Compliant with assessments and medications taken whole. No agitation. Patient was anxious and depressed, stating "All I do is these puzzles, then sleep, then eat, then eat some more. Is this all there is left?" and "I see my reflection in the window and I don't like what I see." This nurse validated her feelings and told her that it's normal to feel out of sorts while in the hospital, and that the COVID restrictions could be exacerbating those feelings. Encouraged her that she would get back to a normal routine once she is discharged and that she should try to focus on positive thoughts. She remained awake for some time after that interaction, completing another word search puzzle. Patient appears to be sleeping comfortably at present time. Will continue to monitor.
[2020-05-01 05:51] LABS: BASO % 0 % (0-3); EOS # 0.2 x10^3/uL (0.0-0.7); EOS % 3 % (0-3); HEMATOCRIT 37.2 % (36.0-47.0); LYMPH % 39 % (24-48); MEAN CORPUSCULAR HEMOGLOBIN 28 pg (25-35); MEAN CORPUSCULAR HGB CONC 32 g/dL (31-37); MEAN CORPUSCULAR VOLUME 87 fL (79-100); MONO # 0.8 x10^3/uL (0.0-1.1); MONO % 15 % (0-9); NEUT # 2.2 x10^3uL (1.8-7.7); NEUT % 43 % (31-73); PLATELET COUNT 176 x10^3/uL (140-400); RED BLOOD COUNT 4.29 x10^6/uL (3.50-5.40); RED CELL DISTRIBUTION WIDTH 16.8 % (11.5-14.5); WHITE BLOOD COUNT 5.2 x10^3/uL (4.0-11.0)
[2020-05-01 06:05] VITALS: BP 110/70
[2020-05-01 06:09] LABS: ALBUMIN 2.8 g/dL (3.4-5.0); ALBUMIN/GLOBULIN RATIO 0.7 (1.0-1.7); CALCIUM 9.5 mg/dL (8.5-10.1); CREATININE 0.8 mg/dL (0.6-1.0); GFR 70.7; POTASSIUM 4.3 mmol/L (3.5-5.1); TOTAL BILIRUBIN 0.2 mg/dL (0.2-1.0); TOTAL PROTEIN 6.6 g/dL (6.4-8.2)
--- NOTE | 2020-05-01 08:03 | PDOC ---
Exam Note: Julian Note: This note is a late entry for 04/29/2020 covers elements not covered in my initial note. Subjective: The patient was reviewed on telehealth rounds in the evening of 04/29/2020 with Joycelyn MUÑOZ. The [facility] Department has opened up the unit for admission and discharges following quarantine for Covid-19 exposure. Discussed with nursing staff, reviewed the chart. She slept 6-3/4 hours previous night. Overall the patient has been appropriate on the unit. She has been coming out of her room interacting with others, more amiable, pleasant, smiling somewhat at times. Thought processes seemed to be more linear. Review of Systems: No CV, , pulmonary, eye system symptoms on review. Mental Status Exam: Patient is reasonably oriented. She is verbal, interactive as I met with her on telehealth rounds. She was trying to communicate more effectively though she still has latency of responses in her speech. Speech has some latency, coherent. Abstraction is fair. Computation is impaired. Attention span is short. Language function is intact. No active suicidal or h omicidal ideation. Denies active psychotic symptoms. Laboratory Data: Reviewed. Impression: Schizoaffective disorders bipolar type mixed with psychotic features. Anxiety disorder unspecified. Impulse control disorder unspecified. Plan: Continue current psychotropics. Tentative discharge on 05/08. Assessment: Vital Signs/I&O: Vital Signs Date Time Temp Pulse Resp B/P (MAP) Pulse Ox O2 Delivery O2 Flow Rate FiO2 05/01/20 06:05 97.8 76 16 110/70 (83) 95 Room Air I & O 04/30/20 04/30/20 05/01/20 14:59 22:59 06:59 Intake Total 360 ml 320 ml Balance 360 ml 320 ml Labs: Laboratory Tests Test 05/01/20 05:32 White Blood Count 5.2 x10^3/uL (4.0-11.0) Red Blood Count 4.29 x10^6/uL (3.50-5.40) Hemoglobin 12.0 g/dL (12.0-15.5) Hematocrit 37.2 % (36.0-47.0) Mean Corpuscular Volume 87 fL (79-100) Mean Corpuscular Hemoglobin 28 pg (25-35) Mean Corpuscular Hemoglobin Concent 32 g/dL (31-37) Red Cell Distribution Width 16.8 % (11.5-14.5) H Platelet Count 176 x10^3/uL (140-400) Neutrophils (%) (Auto) 43 % (31-73) Lymphocytes (%) (Auto) 39 % (24-48) Monocytes (%) (Auto) 15 % (0-9) H Eosinophils (%) (Auto) 3 % (0-3) Basophils (%) (Auto) 0 % (0-3) Neutrophils # (Auto) 2.2 x10^3uL (1.8-7.7) Lymphocytes # (Auto) 2.0 x10^3/uL (1.0-4.8) Monocytes # (Auto) 0.8 x10^3/uL (0.0-1.1) Eosinophils # (Auto) 0.2 x10^3/uL (0.0-0.7) Basophils # (Auto) 0.0 x10^3/uL (0.0-0.2) Sodium Level 143 mmol/L (136-145) Potassium Level 4.3 mmol/L (3.5-5.1) Chloride Level 107 mmol/L (98-107) Carbon Dioxide Level 31 mmol/L (21-32) Anion Gap 5 (6-14) L Blood Urea Nitrogen 14 mg/dL (7-20) Creatinine 0.8 mg/dL (0.6-1.0) Estimated GFR (Cockcroft-Gault) 70.7 BUN/Creatinine Ratio 18 (6-20) Glucose Level 96 mg/dL (70-99) Calcium Level 9.5 mg/dL (8.5-10.1) Total Bilirubin 0.2 mg/dL (0.2-1.0) Aspartate Amino Transferase (AST) 14 U/L (15-37) L Alanine Aminotransferase (ALT) 14 U/L (14-59) Alkaline Phosphatase 96 U/L (46-116) Total Protein 6.6 g/dL (6.4-8.2) Albumin 2.8 g/dL (3.4-5.0) L Albumin/Globulin Ratio 0.7 (1.0-1.7) L Current Medications: I have reviewed the current psychotropics carefully including drug interactions. Risk benefit ratio favors no change other than as noted in my dictated progress note. Diagnosis: Problems: (1) Schizoaffective disorder, bipolar type (2) Impulse control disorder, unspecified (3) Anxiety disorder, unspecified (4) Bipolar affective, mixed, sev w/ psych (5) Mild cognitive impairment KIERSTEN WATT MD May 01, 2020 08:03
--- NOTE | 2020-05-01 08:17 | PDOC ---
Exam Note: Julian Note: This note is a late entry for 04/30/2020 covers elements not covered in my initial note. Subjective: The patient was reviewed on telehealth rounds in the evening of 04/30/2020 with Joycelyn MUÑOZ. The Health Department has opened up the unit for admission and discharges following quarantine for Covid-19 exposure. Discussed with nursing staff, reviewed the chart. She slept 8-1/4 hours previous night. The patient has been coming out on the unit asking the nursing staff if she can assist with other patients on the unit, quite appropriate. Overall nursing report indicates she is doing better. Review of Systems: Gait is better. No CV, , pulmonary, eye system symptoms on review. Mental Status Exam: Patient is reasonably oriented. She was again more interactive, pleasant, appreciative of feeling better but still has some difficulty with her thoughts and she does have some latency of response. Abstraction is fair. Computation is impaired. Attention span is short. Language function is intact. No suicidal or homicidal ideation. Laboratory Data: Reviewed. Impression: Schizoaffective disorders bipolar type mixed with psychotic features. Anxiety disorder unspecified. Impulse control disorder unspecified. Plan: Continue current psychotropics. Tentative discharge on 05/08. Assessment: Vital Signs/I&O: Vital Signs Date Time Temp Pulse Resp B/P (MAP) Pulse Ox O2 Delivery O2 Flow Rate FiO2 05/01/20 06:05 97.8 76 16 110/70 (83) 95 Room Air I & O 04/30/20 04/30/20 05/01/20 15:00 23:00 07:00 Intake Total 360 ml 320 ml Balance 360 ml 320 ml Labs: Laboratory Tests Test 05/01/20 05:32 White Blood Count 5.2 x10^3/uL (4.0-11.0) Red Blood Count 4.29 x10^6/uL (3.50-5.40) Hemoglobin 12.0 g/dL (12.0-15.5) Hematocrit 37.2 % (36.0-47.0) Mean Corpuscular Volume 87 fL (79-100) Mean Corpuscular Hemoglobin 28 pg (25-35) Mean Corpuscular Hemoglobin Concent 32 g/dL (31-37) Red Cell Distribution Width 16.8 % (11.5-14.5) H Platelet Count 176 x10^3/uL (140-400) Neutrophils (%) (Auto) 43 % (31-73) Lymphocytes (%) (Auto) 39 % (24-48) Monocytes (%) (Auto) 15 % (0-9) H Eosinophils (%) (Auto) 3 % (0-3) Basophils (%) (Auto) 0 % (0-3) Neutrophils # (Auto) 2.2 x10^3uL (1.8-7.7) Lymphocytes # (Auto) 2.0 x10^3/uL (1.0-4.8) Monocytes # (Auto) 0.8 x10^3/uL (0.0-1.1) Eosinophils # (Auto) 0.2 x10^3/uL (0.0-0.7) Basophils # (Auto) 0.0 x10^3/uL (0.0-0.2) Sodium Level 143 mmol/L (136-145) Potassium Level 4.3 mmol/L (3.5-5.1) Chloride Level 107 mmol/L (98-107) Carbon Dioxide Level 31 mmol/L (21-32) Anion Gap 5 (6-14) L Blood Urea Nitrogen 14 mg/dL (7-20) Creatinine 0.8 mg/dL (0.6-1.0) Estimated GFR (Cockcroft-Gault) 70.7 BUN/Creatinine Ratio 18 (6-20) Glucose Level 96 mg/dL (70-99) Calcium Level 9.5 mg/dL (8.5-10.1) Total Bilirubin 0.2 mg/dL (0.2-1.0) Aspartate Amino Transferase (AST) 14 U/L (15-37) L Alanine Aminotransferase (ALT) 14 U/L (14-59) Alkaline Phosphatase 96 U/L (46-116) Total Protein 6.6 g/dL (6.4-8.2) Albumin 2.8 g/dL (3.4-5.0) L Albumin/Globulin Ratio 0.7 (1.0-1.7) L Current Medications: I have reviewed the current psychotropics carefully including drug interactions. Risk benefit ratio favors no change other than as noted in my dictated progress note. Diagnosis: Problems: (1) Schizoaffective disorder, bipolar type (2) Impulse control disorder, unspecified (3) Anxiety disorder, unspecified (4) Bipolar affective, mixed, sev w/ psych (5) Mild cognitive impairment KIERSTEN WATT MD May 01, 2020 08:17
[2020-05-01] MEDS: DIVALPROEX 125 MG CAP.SPRINK PO SCH ×2 (08:24→20:10)
[2020-05-01] MEDS: MEMANTINE 10 MG TABLET. PO SCH ×2 (08:25→20:14)
[2020-05-01] MEDS: CYANOCOBALAMIN (VITAMIN B-12) 1,000 MCG TABLET. PO SCH (08:25)
[2020-05-01] MEDS: AMANTADINE HCL 100 MG PO SCH (08:26)
[2020-05-01] MEDS: FUROSEMIDE 20 MG TABLET PO SCH (08:26)
[2020-05-01] MEDS: prednisoLONE ACETATE 1% OPHTH SUSPENSION 5ML BOTTLE. OD SCH (08:26)
[2020-05-01] MEDS: DOCUSATE SODIUM 100 MG CAPSULE PO SCH ×2 (08:26→20:11)
--- NOTE | 2020-05-01 15:15 | NUR ---
Patient is more anxious today than she has been. She seems to be more jittery and keeps talking about how she is confused about why shes here and what is going on. She thinks her family is upset with her and that is why they haven't come to visit her. We talked about how the pandemic has made it hard for people to come here. We were able to get her on the phone to talk to her and this made her happier. She still is anxious and confused at times.
[2020-05-01 15:50] VITALS: BP 129/86
[2020-05-01] MEDS: LORazepam 0.5 MG TABLET PO PRN (17:25)
[2020-05-01] MEDS: MIRTAZAPINE 7.5 MG TABLET. PO SCH (20:11)
[2020-05-01] MEDS: ATORVASTATIN CALCIUM 20 MG TABLET PO SCH (20:11)
[2020-05-01] MEDS: cloZAPine 25 MG TABLET PO SCH (20:13)
[2020-05-01] MEDS: cloZAPine 100 MG TABLET PO SCH (20:14)
[2020-05-01] MEDS: LEVOTHYROXINE 50 MCG TABLET PO SCH (20:14)
[2020-05-01] MEDS: traZODone 50 MG TABLET. PO SCH (20:14)
[2020-05-01] MEDS: SODIUM CHLORIDE 5% OPHTH OINTMENT 3.5GM TUBE. OU SCH (20:16)
[2020-05-01] MEDS: ESTRADIOL 0.01% VAGINAL CREAM 42.5GM TUBE. VG SCH (20:51)
--- NOTE | 2020-05-01 21:05 | PDOC ---
Exam Note: Julian Note: Please also refer to the separate dictated note~for this date of service dictated separately.~Patient seen individually. Discussed the patient with Nursing staff reviewed the chart.~Reviewed interim history and current functioning. Reviewed vital signs,~Labs/ Radiology~and current medications noted below. Continue current treatment with the changes noted in the dictated addendum note Assessment: Vital Signs/I&O: Vital Signs Date Time Temp Pulse Resp B/P (MAP) Pulse Ox O2 Delivery O2 Flow Rate FiO2 05/01/20 15:50 98.4 97 17 129/86 (100) 96 05/01/20 06:05 Room Air I & O 04/30/20 04/30/20 05/01/20 15:00 23:00 07:00 Intake Total 360 ml 320 ml Balance 360 ml 320 ml Labs: Laboratory Tests Test 05/01/20 05:32 White Blood Count 5.2 x10^3/uL (4.0-11.0) Red Blood Count 4.29 x10^6/uL (3.50-5.40) Hemoglobin 12.0 g/dL (12.0-15.5) Hematocrit 37.2 % (36.0-47.0) Mean Corpuscular Volume 87 fL (79-100) Mean Corpuscular Hemoglobin 28 pg (25-35) Mean Corpuscular Hemoglobin Concent 32 g/dL (31-37) Red Cell Distribution Width 16.8 % (11.5-14.5) H Platelet Count 176 x10^3/uL (140-400) Neutrophils (%) (Auto) 43 % (31-73) Lymphocytes (%) (Auto) 39 % (24-48) Monocytes (%) (Auto) 15 % (0-9) H Eosinophils (%) (Auto) 3 % (0-3) Basophils (%) (Auto) 0 % (0-3) Neutrophils # (Auto) 2.2 x10^3uL (1.8-7.7) Lymphocytes # (Auto) 2.0 x10^3/uL (1.0-4.8) Monocytes # (Auto) 0.8 x10^3/uL (0.0-1.1) Eosinophils # (Auto) 0.2 x10^3/uL (0.0-0.7) Basophils # (Auto) 0.0 x10^3/uL (0.0-0.2) Sodium Level 143 mmol/L (136-145) Potassium Level 4.3 mmol/L (3.5-5.1) Chloride Level 107 mmol/L (98-107) Carbon Dioxide Level 31 mmol/L (21-32) Anion Gap 5 (6-14) L Blood Urea Nitrogen 14 mg/dL (7-20) Creatinine 0.8 mg/dL (0.6-1.0) Estimated GFR (Cockcroft-Gault) 70.7 BUN/Creatinine Ratio 18 (6-20) Glucose Level 96 mg/dL (70-99) Calcium Level 9.5 mg/dL (8.5-10.1) Total Bilirubin 0.2 mg/dL (0.2-1.0) Aspartate Amino Transferase (AST) 14 U/L (15-37) L Alanine Aminotransferase (ALT) 14 U/L (14-59) Alkaline Phosphatase 96 U/L (46-116) Total Protein 6.6 g/dL (6.4-8.2) Albumin 2.8 g/dL (3.4-5.0) L Albumin/Globulin Ratio 0.7 (1.0-1.7) L Current Medications: Meds: Current Medications Medications (Trade) Dose Ordered Sig/Bora Route PRN Reason Start Time Stop Time Status Last Admin Dose Admin Clozapine (Clozaril) 50 mg HS PO 05/01/20 21:00 05/01/20 20:13 Lorazepam (Ativan) 0.25 mg PRN TID PRN PO ANXIETY / AGITATION 05/01/20 17:15 05/01/20 17:25 I have reviewed the current psychotropics carefully including drug interactions. Risk benefit ratio favors no change other than as noted in my dictated progress note. Diagnosis: Problems: (1) Schizoaffective disorder, bipolar type (2) Anxiety disorder, unspecified (3) Impulse control disorder, unspecified (4) Bipolar affective, mixed, sev w/ psych (5) Mild cognitive impairment KIERTSEN WATT MD May 01, 2020 21:05
--- NOTE | 2020-05-01 23:21 | NUR ---
Patient was in bed during assessment and medication administration. Patient calm and pleasant. Med compliant. Patient asked nurse "are you sure it's night time?" and then stated that it doesn't feel like night time. When nurse showed patient the time on her watch patient agreed that it was probably night time.
[2020-05-02 06:30] VITALS: BP 109/71
--- NOTE | 2020-05-02 07:36 | PDOC ---
Exam Note: Julian Note: This note is a late entry for 05/01/2020 covers elements not covered in my initial note. Subjective: The patient was reviewed on telehealth rounds in the morning of 05/01/2020 for treatment team meeting with Vale (delinquency prevention social worker), Chana, activity therapy, and Stacie RN. [facility] up the unit for admission and discharges following quarantine for Covid-19 exposure. Discussed with nursing staff, reviewed the chart. She slept 7-3/4 hours previous night. The patient reportedly has been more anxious, rubbing her forehead frequently. We are starting Ativan 0.25 mg t.i.d. p.r.n. anxiety. Absolute neutrophil count is unremarkable on Clozaril 125 mg h.s. We will increase the Clozaril to 150 mg h.s. Review of Systems: Ambulation somewhat impaired. No CV, , pulmonary, eye system symptoms on review. Mental Status Exam: Patient is oriented to herself and situation. Speech is moderate latency. Often response is monosyllabic. Abstraction is fair. Computation is impaired. Language function is intact. Psychotic symptoms are much improved. No suicidal or homicidal ideation. Laboratory Data: Reviewed. Impression: Schizoaffective disorders bipolar type mixed with psychotic features. Anxiety disorder unspecified. Impulse control disorder unspecified. Plan: Continue current psychotropics. Continue to monitor her weekly absolute neutrophil counts. Increase Clozaril by 25 mg a day every week. Consider transition to correction next week. Assessment: Vital Signs/I&O: Vital Signs Date Time Temp Pulse Resp B/P (MAP) Pulse Ox O2 Delivery O2 Flow Rate FiO2 05/02/20 06:30 97.5 77 18 109/71 (84) 93 05/01/20 06:05 Room Air I & O 05/01/20 05/01/20 05/02/20 15:00 23:00 07:00 Intake Total 1080 ml 925 ml Balance 1080 ml 925 ml Current Medications: Meds: Current Medications Medications (Trade) Dose Ordered Sig/Bora Route PRN Reason Start Time Stop Time Status Last Admin Dose Admin Clozapine (Clozaril) 50 mg HS PO 05/01/20 21:00 05/01/20 20:13 Lorazepam (Ativan) 0.25 mg PRN TID PRN PO ANXIETY / AGITATION 05/01/20 17:15 05/01/20 17:25 I have reviewed the current psychotropics carefully including drug interactions. Risk benefit ratio favors no change other than as noted in my dictated progress note. Diagnosis: Problems: (1) Impulse control disorder, unspecified (2) Anxiety disorder, unspecified (3) Bipolar affective, mixed, sev w/ psych (4) Mild cognitive impairment (5) Schizoaffective disorder, bipolar type KIERSTEN WATT MD May 02, 2020 07:35
[2020-05-02] MEDS: DIVALPROEX 125 MG CAP.SPRINK PO SCH ×2 (08:26→19:45)
[2020-05-02] MEDS: MEMANTINE 10 MG TABLET. PO SCH ×2 (08:27→19:46)
[2020-05-02] MEDS: CYANOCOBALAMIN (VITAMIN B-12) 1,000 MCG TABLET. PO SCH (08:27)
[2020-05-02] MEDS: FUROSEMIDE 20 MG TABLET PO SCH (08:27)
[2020-05-02] MEDS: AMANTADINE HCL 100 MG PO SCH (08:27)
[2020-05-02] MEDS: prednisoLONE ACETATE 1% OPHTH SUSPENSION 5ML BOTTLE. OD SCH (08:27)
[2020-05-02] MEDS: DOCUSATE SODIUM 100 MG CAPSULE PO SCH ×2 (08:27→19:46)
--- NOTE | 2020-05-02 13:41 | NUR ---
Patient has been calm, compliant, and withdrawn throughout this shift. Patient spends the majority of her time withdrawn to her bed. She does ambulate short distances within her room and has a wheelchair for longer distances. She has multiple EPS and tardive dyskinesia movements and facial tics. Speech is garbled, low volume. Will continue to monitor and report to oncoming shift.
[2020-05-02 15:50] VITALS: BP 102/65
[2020-05-02] MEDS: SODIUM CHLORIDE 5% OPHTH OINTMENT 3.5GM TUBE. OU SCH (19:45)
[2020-05-02] MEDS: MIRTAZAPINE 7.5 MG TABLET. PO SCH (19:45)
[2020-05-02] MEDS: cloZAPine 25 MG TABLET PO SCH (19:45)
[2020-05-02] MEDS: cloZAPine 100 MG TABLET PO SCH (19:45)
[2020-05-02] MEDS: LEVOTHYROXINE 50 MCG TABLET PO SCH (19:46)
[2020-05-02] MEDS: traZODone 50 MG TABLET. PO SCH (19:46)
[2020-05-02] MEDS: ATORVASTATIN CALCIUM 20 MG TABLET PO SCH (19:46)
--- NOTE | 2020-05-02 20:51 | PDOC ---
Exam Note: Julian Note: Please also refer to the separate dictated note~for this date of service dictated separately.~Patient seen individually. Discussed the patient with Nursing staff reviewed the chart.~Reviewed interim history and current functioning. Reviewed vital signs,~Labs/ Radiology~and current medications noted below. Continue current treatment with the changes noted in the dictated addendum note Assessment: Vital Signs/I&O: Vital Signs Date Time Temp Pulse Resp B/P (MAP) Pulse Ox O2 Delivery O2 Flow Rate FiO2 05/02/20 15:50 98.8 90 19 102/65 (77) 93 Room Air I & O 05/01/20 05/01/20 05/02/20 15:00 23:00 07:00 Intake Total 1080 ml 925 ml Balance 1080 ml 925 ml Current Medications: Meds: Current Medications Medications (Trade) Dose Ordered Sig/Bora Route PRN Reason Start Time Stop Time Status Last Admin Dose Admin Clozapine (Clozaril) 50 mg HS PO 05/01/20 21:00 05/02/20 19:45 I have reviewed the current psychotropics carefully including drug interactions. Risk benefit ratio favors no change other than as noted in my dictated progress note. Diagnosis: Problems: (1) Schizoaffective disorder, bipolar type (2) Impulse control disorder, unspecified (3) Anxiety disorder, unspecified (4) Bipolar affective, mixed, sev w/ psych (5) Mild cognitive impairment KIERSTEN WATT MD May 02, 2020 20:51
--- NOTE | 2020-05-02 21:54 | NUR ---
Patient was sitting in the chair in her room upon assumption of care. Patient cooperative and calm, medication compliant. Patient oriented to self and hospital but states she "feels confused" about why she is here. Nurse spoke to patient about the reason she had been admitted and patient stated she does not remember that but feels like she was sleeping a lot. Patient does not appear anxious and is not pulling at her hair. Patient has EPS and tardive dyskinesia that appear to have gotten less severe since her hospitalization.
[2020-05-03 05:59] VITALS: BP 121/84
[2020-05-03] MEDS: CYANOCOBALAMIN (VITAMIN B-12) 1,000 MCG TABLET. PO SCH (09:04)
[2020-05-03] MEDS: MEMANTINE 10 MG TABLET. PO SCH ×2 (09:04→20:11)
[2020-05-03] MEDS: prednisoLONE ACETATE 1% OPHTH SUSPENSION 5ML BOTTLE. OD SCH (09:04)
[2020-05-03] MEDS: DOCUSATE SODIUM 100 MG CAPSULE PO SCH ×2 (09:04→20:11)
[2020-05-03] MEDS: DIVALPROEX 125 MG CAP.SPRINK PO SCH ×2 (09:04→20:11)
[2020-05-03] MEDS: AMANTADINE HCL 100 MG PO SCH (09:04)
[2020-05-03] MEDS: FUROSEMIDE 20 MG TABLET PO SCH (09:05)
--- NOTE | 2020-05-03 09:53 | PDOC ---
Exam Note: Julian Note: This note is a late entry for 05/02/2020 covers elements not covered in my initial note. Subjective: The patient was reviewed on telehealth rounds in the evening of 05/02/2020 with Romelia MUÑOZ. Discussed with nursing staff, reviewed the chart. She slept 7-1/2 hours previous night. She was somewhat anxious, previous night staff had called me. We had initiated some Ativan p.r.n. but during the day today she has not had much of any anxiety per nursing staff. She has attended groups states thinking is a little bit clearer but she still has some difficulty putting her thoughts together as I met with her. Review of Systems: Some impairment of ambulation. No CV, , pulmonary, eye system symptoms on review. Mental Status Exam: Patient is oriented to herself and situation. She seemed less paranoid, psychotic and thought processes appeared a little more goal directed. However, she had moderate to marked latency of responses. She seemed to be having some internal distractions but improved. Abstraction is fair. Computation is impaired. Language function is intact. No suicidal or homicidal ideation. Laboratory Data: Reviewed. Impression: Schizoaffective disorders bipolar type mixed with psychotic features. Anxiety disorder unspecified. Impulse control disorder unspecified. Plan: Continue current psychotropics. We have increased the Clozaril to 150 mg a day yesterday post absolute neutrophil count being unremarkable. Assessment: Vital Signs/I&O: Vital Signs Date Time Temp Pulse Resp B/P (MAP) Pulse Ox O2 Delivery O2 Flow Rate FiO2 05/03/20 05:59 97.2 77 18 121/84 (96) 96 Room Air I & O 05/02/20 05/02/20 05/03/20 15:00 23:00 07:00 Intake Total 720 ml 720 ml Balance 720 ml 720 ml Current Medications: I have reviewed the current psychotropics carefully including drug interactions. Risk benefit ratio favors no change other than as noted in my dictated progress note. Diagnosis: Problems: (1) Schizoaffective disorder, bipolar type (2) Impulse control disorder, unspecified (3) Anxiety disorder, unspecified (4) Bipolar affective, mixed, sev w/ psych (5) Mild cognitive impairment KIERSTEN WATT MD May 03, 2020 09:53
--- NOTE | 2020-05-03 15:41 | NUR ---
ROSALINE spoke with Manuelito facilities administrator at [facility] as pt is scheduled to d/c there on Friday. Manuelito agreeable to d/c and reports that he all he will need at time of d/c is the normal discharge orders and a current med list. Manuelito states that the facility will either pick pt up or they will arrange for transportation. Will discuss p/u time later in the week. ROSALINE then reached out to dtr/DPLEONELA Escalante (P)[phone]. Ava provided Hardik /DPOA's phone number as well ([phone]). Ava appreciative of call. ROSALINE and Ava spoke about d/c to [facility]. Ava related that her father is just concerned that they will be charged for pt bed at [facility] as well as the bed at the post-acute placement. ROSALINE reassured Ava that that should not be the case, but encouraged Ava to reach out to the facility to confirm at put her mind at ease. Ava reports the her father is "old school" and tends to try to talk to pt about everything including happenings in the news and personal family business. He doesn't seem to understand that these conversations could work her up. Ava expressed concern over pt level of understanding related the the pandemic and how could only see her through glass when she was at the facility. Ava just expresses some apprehension about her mother going to a different facility that they can't see and states that Hardik shares that apprehension. Ava states that she plans to research it. ROSALINE provided comfort by just listening and acknowledging how this pandemic elevates everyone's anxiety in so many different ways. ROSALINE agreed to reach out to pt as well at a later time. Ava thankful to hear from ROSALINE and expressed appreciation for helping pt.
[2020-05-03 15:46] VITALS: BP 121/78
--- NOTE | 2020-05-03 18:20 | NUR ---
Patient has been calm, compliant, and withdrawn throughout this shift. Patient spent the majority of her time withdrawn to her bed, she declined to attend group activities. Will continue to monitor and report to oncoming shift.
[2020-05-03] MEDS: ATORVASTATIN CALCIUM 20 MG TABLET PO SCH (20:11)
[2020-05-03] MEDS: cloZAPine 100 MG TABLET PO SCH (20:11)
[2020-05-03] MEDS: MIRTAZAPINE 7.5 MG TABLET. PO SCH (20:11)
[2020-05-03] MEDS: cloZAPine 25 MG TABLET PO SCH (20:12)
[2020-05-03] MEDS: traZODone 50 MG TABLET. PO SCH (20:12)
[2020-05-03] MEDS: LEVOTHYROXINE 50 MCG TABLET PO SCH (20:13)
[2020-05-03] MEDS: ESTRADIOL 0.01% VAGINAL CREAM 42.5GM TUBE. VG SCH (20:15)
[2020-05-03] MEDS: SODIUM CHLORIDE 5% OPHTH OINTMENT 3.5GM TUBE. OU SCH (20:17)
--- NOTE | 2020-05-03 22:56 | NUR ---
Patient was asleep in her bed at assumption of care. She woke up, sat up and was cooperative and compliant with medications. Patient has not been agitated or anxious this shift.
[2020-05-04 05:59] VITALS: BP 107/72
[2020-05-04] MEDS: AMANTADINE HCL 100 MG PO SCH (08:59)
[2020-05-04] MEDS: DOCUSATE SODIUM 100 MG CAPSULE PO SCH ×2 (08:59→19:36)
[2020-05-04] MEDS: DIVALPROEX 125 MG CAP.SPRINK PO SCH ×2 (08:59→19:36)
[2020-05-04] MEDS: FUROSEMIDE 20 MG TABLET PO SCH (08:59)
[2020-05-04] MEDS: CYANOCOBALAMIN (VITAMIN B-12) 1,000 MCG TABLET. PO SCH (08:59)
[2020-05-04] MEDS: MEMANTINE 10 MG TABLET. PO SCH ×2 (08:59→19:36)
[2020-05-04] MEDS: prednisoLONE ACETATE 1% OPHTH SUSPENSION 5ML BOTTLE. OD SCH (09:00)
--- NOTE | 2020-05-04 10:11 | NUR ---
WEEKLY ACTIVITY THERAPY NOTE Date of Admission: 03/21 Date of AT Assessment: 03/23 Precipitating behaviors that initiated intake and admission: Manic, digging at hair and face, anxious, rambles, upper and lower body movements. Goal aimed: increase time management and stress management/relaxation skills Initial Goal: Pt will participate in at least one individual or group Activity Therapy session before discharge. Goal changed 04/20: Pt will participate in at least one individual or group Activity Therapy session per week. Weekly progress towards goal: Exceeded 11/16- 3 individual sessions, 7 groups Group participation level: 3 full individual sessions and 2 full, 1 mod, 1 min groups Weekly highlights: singing along and guessing [place] songs on Friday afternoon Behaviors observed: Poor self esteem expressed in group on Friday morning, concerns with not seeing her family, talked through coping skills in group. She appeared more restless and confused/ anxious in recent mornings but starting to present in afternoon as well. Plan: no change to goal due to pending discharge 05/08, otherwise, change goal to: Pt. will participate in at least one Activity Therapy group per day Beneficial adaptations:
--- NOTE | 2020-05-04 16:20 | TX PLAN ---
Interdisciplinary Tx Plan Admission Information Mar 21, 2020 at 18:15 Legal Status (on Admission): Voluntary DPOA/Guardian Name: Hardik Smith Contact Other Contact Name: Joselito Other Contact Verified Code Status: Full Code Allergies: Coded Allergies: Benzodiazepines (Verified Allergy, Intermediate, Unknown, 12/29/17) clonazepam (Verified Allergy, Intermediate, Unknown, 12/29/17) lorazepam (Verified Allergy, Intermediate, Unknown, 12/29/17) lithium (Verified Allergy, Unknown, 03/20/20) Diagnoses Primary Diagnosis: Schizoaffective D/O, Bipolar type Reasons for Admission: Agitated, Sig. Change Sleep, Anxiety/Panic Problem in Patient's Words: They are trying to so many meds on her it's throwing her for a loop. Additional Admission Comments: According to the intake, pt is manic, digging at her hair and face, agitated, restless, insomnia, sporadic meal intake, anxious, rambling, causing harm to self Problems Active Problems: withdrawn restless anxious Tardive Dyskenesia Inactive Problems: medication compliant Pt Strengths/Limitations Ability for [place]: Poor Cognitive Functioning/Ability: Poor Communication Skills/Ability: Poor Financial Resources: Poor Insight/Judgement: Fair Intellectual Ability: Fair Physical Health: Poor Social Skills: Poor Stability in Family: Good Stability in School/Work: Poor Verbal Skills: Poor Discharge Criteria Discharge Criteria: No need for close observ., Adequate arrangements @DC, Impr yazmin behavior, Improved mood/thought Preliminary Discharge Plan Preliminary DC Plan: Current Living Arrange. Special Precautions Fall Risk: Moderate [facility]charge Needs: At this time, it is unknown if pt will return to [facility] or not. Currently Utilized Resources Currently Utilized Resources/P: PCP Psychiatry/FORMAL WAITER/WAITRESS Identified Problems/Hx/Goals Objectives/Short-Term Goals Short Term Goals: Dec. Anxiety/Panic, Decrease Isolation, Dec. Outbursts, Medication Stabilization, Monitor Med Effects, Promote Coping Skill Short Term Goals in Patient's: N/A Interventions/Frequency Staff Interventions/Frequency&: Psychiatrist to assess pt at least 3x per week for medication management. Social Work to assess pt at least 2x per week for discharge planning and assess any potential discharge barriers. Nursing to manage behaviors, assess medication effects, and complete 15 minute checks. Encourage participation in group activities (if applicable) or 1:1 engagement based off activity dept assessment. 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 Education: Pt completed 12th grade (High school); the continued on to [employer]. Community Follow-up PCP Psychiatry Community Provider/Family Inpu: They are screwing up his medications. Treatment Plan Explained Patient/Traffic Court Magistrate had this treatment plan explained to him/her as indicated by the signature below and has been given the opportunity to ask questions and make suggestions: Date: Patient/Traffic Court Magistrate Signature: Status Update Update Pt is eating 75% of her meals and averaging 7.5 hours of sleep per night. While pt seems somewhat better than at admission, the past couple of days she is showing some signs of depressions as she is more withdrawn to her room and doesn't express interest in attending groups. She has agreed to try to focus on more positive thinking as she reports that she has been mostly reliant on medication in the past to help her with depression. She, also, reports that she thinks that she is thinking too much. Pt has been accepted to [facility]. Plan for d/c Friday of next week. Pt is eating 100% of meals and sleeping on average 7 hours per night. Pt is complaint with medications and become more interactive with staff and peers. Pt is seeking out activities to complete. Pt may need to be increased to a regular diet; currently she is on a pureed diet/soft foods and thin liquids. Speech therapy was consulted and will make appropriate changes from there. Pt is not able to discharge back to [facility] as they are right now only able to accept Covid positive patients. It is recommended that pt discharge to the [facility] side; despite the family request to may be have pt return home. JOY ZARAGOZA May 04, 2020 16:20
--- NOTE | 2020-05-04 16:21 | NUR ---
SW contacted [facility] to inquire about pt taking Clozaril. Facility is accepting of this and reports that they have an MD and psychiatrist on staff.
--- NOTE | 2020-05-04 17:40 | NUR ---
Patient has been calm, compliant, and withdrawn throughout this shift. Patient spent the majority of her time withdrawn to her bed, she declined to attend group activities, she did participate with Activity therapy in individual therapy. Patient has been listening to a nisa this afternoon; at supper she stated that it was getting dark too soon and she felt like it should still be light out. Discussed with patient the time of year and that we are only a few days away from winter solstice. Will continue to monitor and report to oncoming shift.
[2020-05-04 18:16] VITALS: BP 119/72
[2020-05-04] MEDS: SODIUM CHLORIDE 5% OPHTH OINTMENT 3.5GM TUBE. OU SCH (19:36)
[2020-05-04] MEDS: ATORVASTATIN CALCIUM 20 MG TABLET PO SCH (19:36)
[2020-05-04] MEDS: LEVOTHYROXINE 50 MCG TABLET PO SCH (19:36)
[2020-05-04] MEDS: cloZAPine 25 MG TABLET PO SCH (19:36)
[2020-05-04] MEDS: cloZAPine 100 MG TABLET PO SCH (19:36)
[2020-05-04] MEDS: MIRTAZAPINE 7.5 MG TABLET. PO SCH (19:37)
[2020-05-04] MEDS: traZODone 50 MG TABLET. PO SCH (19:38)
--- NOTE | 2020-05-04 21:12 | NUR ---
Pt withdrawn to room, sitting quietly at shift change. Pt calm, pleasant, and interactive when approached. Pt cooperative with assessment, initially resistive with medications but did comply with encouragement and education.
--- NOTE | 2020-05-04 22:24 | PDOC ---
Exam Note: Julian Note: Please also refer to the separate dictated note~for this date of service dictated separately.~Patient seen individually. Discussed the patient with Nursing staff reviewed the chart.~Reviewed interim history and current functioning. Reviewed vital signs,~Labs/ Radiology~and current medications noted below. Continue current treatment with the changes noted in the dictated addendum note Assessment: Vital Signs/I&O: Vital Signs Date Time Temp Pulse Resp B/P (MAP) Pulse Ox O2 Delivery O2 Flow Rate FiO2 05/04/20 18:16 98.3 95 18 119/72 (88) 98 05/04/20 05:59 Room Air I & O 05/03/20 05/03/20 05/04/20 15:00 23:00 07:00 Intake Total 720 ml 480 ml Balance 720 ml 480 ml Current Medications: Meds: Current Medications Medications (Trade) Dose Ordered Sig/Bora Route PRN Reason Start Time Stop Time Status Last Admin Dose Admin Fluvoxamine Maleate (Luvox) 25 mg QHS PO 05/04/20 21:00 05/04/20 19:36 I have reviewed the current psychotropics carefully including drug interactions. Risk benefit ratio favors no change other than as noted in my dictated progress note. Diagnosis: Problems: (1) Schizoaffective disorder, bipolar type (2) Impulse control disorder, unspecified (3) Anxiety disorder, unspecified (4) Bipolar affective, mixed, sev w/ psych (5) Mild cognitive impairment KIERSTEN WATT MD May 04, 2020 22:24
--- NOTE | 2020-05-04 22:24 | PDOC ---
Exam Note: Julian Note: This is a late entry for 05/03/2020. Please also refer to the separate dictated note~for this date of service dictated separately.~Patient seen individually. Discussed the patient with Nursing staff reviewed the chart.~Reviewed interim history and current functioning. Reviewed vital signs,~Labs/ Radiology~and cur rent medications noted below. Continue current treatment with the changes noted in the dictated addendum note Assessment: Vital Signs/I&O: Vital Signs Date Time Temp Pulse Resp B/P (MAP) Pulse Ox O2 Delivery O2 Flow Rate FiO2 05/04/20 18:16 98.3 95 18 119/72 (88) 98 05/04/20 05:59 Room Air I & O 05/03/20 05/03/20 05/04/20 15:00 23:00 07:00 Intake Total 720 ml 480 ml Balance 720 ml 480 ml Current Medications: Meds: Current Medications Medications (Trade) Dose Ordered Sig/Bora Route PRN Reason Start Time Stop Time Status Last Admin Dose Admin Fluvoxamine Maleate (Luvox) 25 mg QHS PO 05/04/20 21:00 05/04/20 19:36 I have reviewed the current psychotropics carefully including drug interactions. Risk benefit ratio favors no change other than as noted in my dictated progress note. Diagnosis: Problems: (1) Schizoaffective disorder, bipolar type (2) Anxiety disorder, unspecified (3) Impulse control disorder, unspecified (4) Bipolar affective, mixed, sev w/ psych (5) Mild cognitive impairment KIERSTEN WATT MD May 04, 2020 22:24
[2020-05-05 05:02] VITALS: BP 109/72
--- NOTE | 2020-05-05 07:50 | PDOC ---
Exam Note: Julian Note: This note is a late entry for 05/03/2020 covers elements not covered in my initial note. Subjective: The patient was reviewed on telehealth rounds in the evening of 05/03/2020 with Adithya MUÑOZ. Discussed with nursing staff, reviewed the chart. She slept 8 hours previous night. At times the patient appears somewhat depressed but per Adithya RN who has not seen the patient for a couple of weeks she seems to be doing much better, both with respect to her ability to interact with others and communicate even though she had some thought disorder persisting. She did not attend any groups on 05/03 as she did on 05/02. She at times appears somewhat confused. Review of Systems: Some impairment of ambulation. No CV, , pulmonary, eye system symptoms on review. Mental Status Exam: Patient is oriented to herself and situation. She did verbalize that she felt a little confused. She was aware of where she is nevertheless and part of her withdrawal and some remaining psychotic symptoms seemed to contribute to the confusion and we will continue to monitor this and adjust Clozaril as indicated. Abstraction is fair. Computation is impaired. Language function is intact. No suicidal or homicidal ideation. Laboratory Data: Reviewed. Impression: Schizoaffective disorders bipolar type mixed with psychotic features. Anxiety disorder unspecified. Impulse control disorder unspecified. Plan: Continue current psychotropics. Assessment: Vital Signs/I&O: Vital Signs Date Time Temp Pulse Resp B/P (MAP) Pulse Ox O2 Delivery O2 Flow Rate FiO2 05/05/20 05:02 97.9 77 16 109/72 (84) 92 05/04/20 05:59 Room Air I & O 05/04/20 05/04/20 05/05/20 14:59 22:59 06:59 Intake Total 720 ml 760 ml Balance 720 ml 760 ml Current Medications: Meds: Current Medications Medications (Trade) Dose Ordered Sig/Bora Route PRN Reason Start Time Stop Time Status Last Admin Dose Admin Fluvoxamine Maleate (Luvox) 25 mg QHS PO 05/04/20 21:00 05/04/20 19:36 I have reviewed the current psychotropics carefully including drug interactions. Risk benefit ratio favors no change other than as noted in my dictated progress note. Diagnosis: Problems: (1) Schizoaffective disorder, bipolar type (2) Impulse control disorder, unspecified (3) Anxiety disorder, unspecified (4) Bipolar affective, mixed, sev w/ psych (5) Mild cognitive impairment KIERSTEN WATT MD May 05, 2020 07:49
[2020-05-05] MEDS: CYANOCOBALAMIN (VITAMIN B-12) 1,000 MCG TABLET. PO SCH (08:02)
[2020-05-05] MEDS: DOCUSATE SODIUM 100 MG CAPSULE PO SCH ×2 (08:02→19:50)
[2020-05-05] MEDS: DIVALPROEX 125 MG CAP.SPRINK PO SCH ×2 (08:02→19:50)
[2020-05-05] MEDS: MEMANTINE 10 MG TABLET. PO SCH ×2 (08:02→19:50)
[2020-05-05] MEDS: prednisoLONE ACETATE 1% OPHTH SUSPENSION 5ML BOTTLE. OD SCH (08:03)
[2020-05-05] MEDS: FUROSEMIDE 20 MG TABLET PO SCH (08:03)
[2020-05-05] MEDS: AMANTADINE HCL 100 MG PO SCH (08:05)
--- NOTE | 2020-05-05 08:14 | PDOC ---
Exam Note: Julian Note: This note is a late entry for 05/04/2020 covers elements not covered in my initial note. Subjective: The patient was reviewed on telehealth rounds in the morning of 05/04/2020 for a treatment team meeting with Chiara Lerner and Barbi (social work assistant), Yasmin, activity therapy, and Adithya MUÑOZ. Discussed with nursing staff, reviewed the chart. She slept 8-1/2 hours previous night. The patient has been somewhat withdrawn. She appears more confused in the evening, somewhat anxious, obsessive. I met with her on telehealth rounds in the evening. She is spending much time in her room, refused to attend groups today. Review of Systems: Positive for some confusion. Impaired ambulation. No CV, , pulmonary, eye system symptoms on review. Mental Status Exam: Patient is oriented to herself and situation. Speech has some moderate latency. Often response is monosyllabic. He remains somewhat obsessive, anxious, inattentive. Abstraction is fair. Computation is impaired. Language function is intact. No suicidal or homicidal ideation. Laboratory Data: Reviewed. Impression: Schizoaffective disorders bipolar type mixed with psychotic features. Anxiety disorder unspecified. Impulse control disorder unspecified. Plan: Continue current psychotropics. Add Luvox 25 mg p.o. h.s. Continue to monitor weekly CBC, absolute neutrophil count. Increase Clozaril as tolerated. Assessment: Vital Signs/I&O: Vital Signs Date Time Temp Pulse Resp B/P (MAP) Pulse Ox O2 Delivery O2 Flow Rate FiO2 05/05/20 05:02 97.9 77 16 109/72 (84) 92 05/04/20 05:59 Room Air I & O 05/04/20 05/04/20 05/05/20 15:00 23:00 07:00 Intake Total 720 ml 760 ml Balance 720 ml 760 ml Current Medications: Meds: Current Medications Medications (Trade) Dose Ordered Sig/Bora Route PRN Reason Start Time Stop Time Status Last Admin Dose Admin Fluvoxamine Maleate (Luvox) 25 mg QHS PO 05/04/20 21:00 05/04/20 19:36 I have reviewed the current psychotropics carefully including drug interactions. Risk benefit ratio favors no change other than as noted in my dictated progress note. Diagnosis: Problems: (1) Schizoaffective disorder, bipolar type (2) Anxiety disorder, unspecified (3) Impulse control disorder, unspecified (4) Bipolar affective, mixed, sev w/ psych (5) Mild cognitive impairment KIERSTEN WATT MD May 05, 2020 08:14
--- NOTE | 2020-05-05 12:48 | NUR ---
Patient is sitting in chair eating breakfast at time of assessment. Patient is anxious but cooperative. She states she is feeling better today but really still doesn't understand why she cant go home. We discussed her medications and the adjustments we did and why she was still here for us to monitor. Patient seems to understand but then goes right back to why is she not going home questions. Patient takes medications whole just fine and has no complaints at this time. She is not having as many involuntary movements today and is interested in going to group and getting out of her room when she can. We will try to watch tv later or do some activities so we can help decrease her anxiety. Patient is alert and oriented. No further concerns at this time.
--- NOTE | 2020-05-05 12:54 | NUR ---
[facility] Social Work Discharge Planning Form Patient Name CRISTAL POLLARD Admit Date: 03/21/2020 DISCHARGE PLAN Discharge Destination: [facility] Assessment: [mich BAUMANN] Level II Assessment: [mich BAUMANN] Transportation: Facility will pecan picker at 1100. Special Instructions/Notes: Please fax discharge orders and current medication list to facility. DISCHARGE TO FACILITY Facility: [facility] Address: [address] [place], [place] [address] [address] Contact Name: Manuelito Warner-Airplane Refueler
--- NOTE | 2020-05-05 13:47 | NUR ---
SW met with pt 1:1 today to encourage positive thinking. Pt states that she doesn't think that she is doing good, but SW told her the fact that she is sitting up and willing to talk is a good sign. Pt was willing to brush her hair when prompted and we watched a Oh/dog video together. Britni smiled and had a couple of chuckles despite stating that she still didn't think she was doing good. SW encouraged Britni to follow along with some stretching exercises which she did with no problem. She stated that her neck crackled and popped. Britni stated that she just didn't know what to do. SW encouraged pt to get up between sleeping/resting and periodically walk around the [place] as well as do some exercises like she had just completed.
[2020-05-05 15:53] VITALS: BP 115/78
[2020-05-05] MEDS: SODIUM CHLORIDE 5% OPHTH OINTMENT 3.5GM TUBE. OU SCH (19:50)
[2020-05-05] MEDS: ATORVASTATIN CALCIUM 20 MG TABLET PO SCH (19:50)
[2020-05-05] MEDS: LEVOTHYROXINE 50 MCG TABLET PO SCH (19:50)
[2020-05-05] MEDS: cloZAPine 100 MG TABLET PO SCH (19:50)
[2020-05-05] MEDS: MIRTAZAPINE 7.5 MG TABLET. PO SCH (19:50)
[2020-05-05] MEDS: cloZAPine 25 MG TABLET PO SCH (19:50)
[2020-05-05] MEDS: ESTRADIOL 0.01% VAGINAL CREAM 42.5GM TUBE. VG SCH (19:51)
[2020-05-05] MEDS: traZODone 50 MG TABLET. PO SCH (19:51)
--- NOTE | 2020-05-05 20:44 | NUR ---
Nursing Note: Pt sitting quietly in the hallway at shift change. Pt calm, pleasant, and interactive when approached. Pt cooperative with assessment and compliant with medications administered whole.
[2020-05-06 06:18] VITALS: BP 118/73
[2020-05-06] MEDS: MEMANTINE 10 MG TABLET. PO SCH ×2 (07:53→19:41)
[2020-05-06] MEDS: DOCUSATE SODIUM 100 MG CAPSULE PO SCH ×2 (07:53→19:41)
[2020-05-06] MEDS: CYANOCOBALAMIN (VITAMIN B-12) 1,000 MCG TABLET. PO SCH (07:53)
[2020-05-06] MEDS: DIVALPROEX 125 MG CAP.SPRINK PO SCH ×2 (07:54→19:41)
[2020-05-06] MEDS: FUROSEMIDE 20 MG TABLET PO SCH (07:54)
[2020-05-06] MEDS: AMANTADINE HCL 100 MG PO SCH (07:54)
[2020-05-06] MEDS: prednisoLONE ACETATE 1% OPHTH SUSPENSION 5ML BOTTLE. OD SCH (07:55)
[2020-05-06 15:48] VITALS: BP 100/67
--- NOTE | 2020-05-06 18:12 | NUR ---
Pt has been pleasant and compliant. Pt spoke with son today. Visit went well.
--- NOTE | 2020-05-06 18:41 | PN ---
DATE: 05/06/2020 SUBJECTIVE: The patient was evaluated by telehealth, met with the staff, chart reviewed, and covering for Dr. Pinzon. Staff reports that the patient continues to be anxious, but improved and not depressed. No major behavior problems. OBSERVATION: Vital signs stable. The patient denies of any falls. The patient denies of any side effects to the medications. Her overall behavior has improved. She is alert, oriented to surroundings. Her speech is clear, spontaneous with normal rate and rhythm. Her affect and mood showed she is still anxious, periods of depression, but no negative thoughts. No evidence of any psychotic symptoms. The patient is having difficulty with her cognition problems with attention span and concentration and also difficulty processing information at times. CURRENT MEDICATIONS: Includes Clozaril, which was increased recently. She is also on Luvox and not having any major side effects. LABORATORY DATA: The patient's lab reviewed. ASSESSMENT: 1. Schizoaffective disorder, bipolar type. 2. Anxiety disorder, unspecified. 3. Impulse control disorder, unspecified. 4. Mild cognitive impairment. PLAN: Continue with the current treatment plan. The patient is scheduled for discharge on 05/08/2020. ELLA PARTIDA MD DR: MONCHO/fredrick JOB#: [id number] / [id number]
[2020-05-06] MEDS: SODIUM CHLORIDE 5% OPHTH OINTMENT 3.5GM TUBE. OU SCH (19:41)
[2020-05-06] MEDS: ATORVASTATIN CALCIUM 20 MG TABLET PO SCH (19:41)
[2020-05-06] MEDS: cloZAPine 25 MG TABLET PO SCH (19:41)
[2020-05-06] MEDS: MIRTAZAPINE 7.5 MG TABLET. PO SCH (19:41)
[2020-05-06] MEDS: cloZAPine 100 MG TABLET PO SCH (19:41)
[2020-05-06] MEDS: LEVOTHYROXINE 50 MCG TABLET PO SCH (19:41)
[2020-05-06] MEDS: traZODone 50 MG TABLET. PO SCH (19:42)
--- NOTE | 2020-05-06 20:29 | NUR ---
Nursing Note: Pt withdrawn to room, lying in bed at shift change. Pt calm, pleasant, and interactive when approached. Pt cooperative with assessment and cares, initially resistive with medications but did comply with encouragement and education.
[2020-05-07 05:29] VITALS: BP 110/72
[2020-05-07] MEDS: MEMANTINE 10 MG TABLET. PO SCH ×2 (08:19→20:12)
[2020-05-07] MEDS: prednisoLONE ACETATE 1% OPHTH SUSPENSION 5ML BOTTLE. OD SCH (08:19)
[2020-05-07] MEDS: CYANOCOBALAMIN (VITAMIN B-12) 1,000 MCG TABLET. PO SCH (08:20)
[2020-05-07] MEDS: AMANTADINE HCL 100 MG PO SCH (08:20)
[2020-05-07] MEDS: FUROSEMIDE 20 MG TABLET PO SCH (08:20)
[2020-05-07] MEDS: DOCUSATE SODIUM 100 MG CAPSULE PO SCH ×2 (08:20→20:10)
[2020-05-07] MEDS: DIVALPROEX 125 MG CAP.SPRINK PO SCH ×2 (08:20→20:11)
[2020-05-07 10:20] LABS: BASO % 1 % (0-3); EOS # 0.1 x10^3/uL (0.0-0.7); EOS % 4 % (0-3); HEMATOCRIT 38.7 % (36.0-47.0); HEMOGLOBIN 12.3 g/dL (12.0-15.5); LYMPH # 1.4 x10^3/uL (1.0-4.8); LYMPH % 41 % (24-48); MEAN CORPUSCULAR HEMOGLOBIN 28 pg (25-35); MEAN CORPUSCULAR HGB CONC 32 g/dL (31-37); MEAN CORPUSCULAR VOLUME 88 fL (79-100); MONO # 0.4 x10^3/uL (0.0-1.1); MONO % 12 % (0-9); NEUT # 1.4 x10^3uL (1.8-7.7); NEUT % 42 % (31-73); PLATELET COUNT 185 x10^3/uL (140-400); RED BLOOD COUNT 4.42 x10^6/uL (3.50-5.40); WHITE BLOOD COUNT 3.4 x10^3/uL (4.0-11.0)
[2020-05-07 10:32] LABS: ALBUMIN/GLOBULIN RATIO 0.8 (1.0-1.7); GFR 54.7; TOTAL BILIRUBIN 0.3 mg/dL (0.2-1.0); TOTAL PROTEIN 6.7 g/dL (6.4-8.2)
--- NOTE | 2020-05-07 13:04 | PN ---
DATE: 05/07/2020 SUBJECTIVE: The patient was evaluated today by telehealth, met with the staff, chart reviewed and also covering for Dr. Pinzon. Staff reports no major problems. Denies of any falls and not having any side effects to the medication. OBSERVATION: VITAL SIGNS: Temperature 98, blood pressure 110/72, pulse 77, respirations 18, O2 sat 93%. GENERAL: Slept about 8 hours last night. NEUROLOGIC: The patient continues to be anxious, staying in bed, complains of feeling sluggish and also decreased psychomotor activity. The patient is planned for discharge. Apparently, she is getting anxious. The patient's medication reviewed and also lab. Her current mental status, she is alert, oriented to surroundings. She is able to make eye contact, slow to respond to questions. Her affect and mood showed she is anxious, nervous, increased psychomotor activity. The patient had difficulty holding a conversation. The patient admits to feeling anxious, but denies of feeling depressed. She also complains of feeling tired. The patient is not having any negative thoughts. No psychotic symptoms. ASSESSMENT: 1. Schizoaffective disorder, bipolar type. 2. Anxiety disorder, unspecified. 3. Mild cognitive disorder. PLAN: To continue with the treatment. The patient is planned for discharge tomorrow. ELLA PARTIDA MD DR: MONCHO/fredrick JOB#: [id number] / [id number]
[2020-05-07] MEDS ORDERED: BISA10SU55 RC (14:02)
[2020-05-07] MEDS ORDERED: DOCU-109 PO (14:04)
[2020-05-07] MEDS ORDERED: METH57CR17 TP (14:05)
[2020-05-07] MEDS ORDERED: CLOZ100T PO (14:06)
[2020-05-07] MEDS ORDERED: FLUV25TA PO (14:09)
[2020-05-07] MEDS ORDERED: TRAZ-120 PO (14:16)
[2020-05-07 14:22] VITALS: BP 107/66
[2020-05-07 15:00] VITALS: BP 107/66
--- NOTE | 2020-05-07 16:55 | NUR ---
Pt was a little anxious in am. Was worried about move and her belongings at current facility. Pt redirected. Pt spoke with and dtr on phone. Visit went well. Pt ANC noted to be [address] Lawton. Order to decrease Clozeril to [address] Pinzon in am for further instructions.
[2020-05-07] MEDS: SODIUM CHLORIDE 5% OPHTH OINTMENT 3.5GM TUBE. OU SCH (20:10)
[2020-05-07] MEDS: LEVOTHYROXINE 50 MCG TABLET PO SCH (20:10)
[2020-05-07] MEDS: cloZAPine 100 MG TABLET PO SCH (20:10)
[2020-05-07] MEDS: MIRTAZAPINE 7.5 MG TABLET. PO SCH (20:11)
[2020-05-07] MEDS: traZODone 50 MG TABLET. PO SCH (20:11)
[2020-05-07] MEDS: ATORVASTATIN CALCIUM 20 MG TABLET PO SCH (20:12)
[2020-05-07] MEDS: cloZAPine 25 MG TABLET PO SCH (20:12)
[2020-05-07] MEDS: LORazepam 0.5 MG TABLET PO PRN (20:58)
--- NOTE | 2020-05-07 20:59 | NUR ---
Patient states she is worried about leaving tomorrow and that her "thoughts aren't flowing right". Patient seated at chair in room coloring a picture and doing a word find. She is listening to [employer] music on [employer]. Patient resistive with medications, stating there are "too many" and then refused to take them. Nurse stated she could take them in a little while. PRN Lorazepam administered per order for anxiety. Will continue to monitor and give scheduled medications after patient calms down.
--- NOTE | 2020-05-07 22:58 | NUR ---
Nurse asked patient to take her medications two more times and patient resisted. Nurse told patient to come to nurses station if/when she decided to take them. Patient came to nurses station at 2230 and requested to take her medications. Patient is now laying in her bed, she stated she is not quite as anxious as she was earlier.
[2020-05-08] MEDS ORDERED: LORA0.5T21 PO (00:04)
[2020-05-08] MEDS ORDERED: LEVO50TA5 PO (00:36)
[2020-05-08] MEDS ORDERED: CLOZ100T PO (00:38)
[2020-05-08] MEDS ORDERED: CLOZ25TA PO (00:39)
[2020-05-08 05:39] VITALS: BP 105/68
[2020-05-08] MEDS: AMANTADINE HCL 100 MG PO SCH (09:00)
[2020-05-08] MEDS: CYANOCOBALAMIN (VITAMIN B-12) 1,000 MCG TABLET. PO SCH (09:03)
[2020-05-08] MEDS: DOCUSATE SODIUM 100 MG CAPSULE PO SCH ×2 (09:03→20:12)
[2020-05-08] MEDS: FUROSEMIDE 20 MG TABLET PO SCH (09:03)
[2020-05-08] MEDS: MEMANTINE 10 MG TABLET. PO SCH ×2 (09:03→20:12)
[2020-05-08] MEDS: DIVALPROEX 125 MG CAP.SPRINK PO SCH ×2 (09:03→20:13)
[2020-05-08] MEDS: prednisoLONE ACETATE 1% OPHTH SUSPENSION 5ML BOTTLE. OD SCH (09:04)
[2020-05-08 12:23] LABS: BASO % 1 % (0-3); EOS # 0.1 x10^3/uL (0.0-0.7); EOS % 2 % (0-3); HEMOGLOBIN 11.9 g/dL (12.0-15.5); LYMPH # 1.6 x10^3/uL (1.0-4.8); LYMPH % 32 % (24-48); MEAN CORPUSCULAR HEMOGLOBIN 28 pg (25-35); MEAN CORPUSCULAR HGB CONC 32 g/dL (31-37); MEAN CORPUSCULAR VOLUME 87 fL (79-100); MONO # 0.7 x10^3/uL (0.0-1.1); MONO % 14 % (0-9); NEUT # 2.6 x10^3uL (1.8-7.7); NEUT % 52 % (31-73); PLATELET COUNT 202 x10^3/uL (140-400); RED BLOOD COUNT 4.26 x10^6/uL (3.50-5.40); RED CELL DISTRIBUTION WIDTH 16.7 % (11.5-14.5)
--- NOTE | 2020-05-08 13:57 | NUR ---
ROSALINE contacted by nursing staff that pt ANC level was low and had requested to cancel pt d/c that was scheduled for today. apparently would like pt to be monitored another couple of days. ROSALINE will work with facility to rearrange d/c plans.
--- NOTE | 2020-05-08 15:55 | NUR ---
ROSALINE spoke with Ava pt dtr/DPOA to inform her that d/c had been held d/t pt ANC level being low. SW did report that to dtr that per nursing staff level was back to normal now. SW stated that she would keep her informed as she knew more. Ava appreciative of call.
[2020-05-08 16:01] VITALS: BP 123/70
--- NOTE | 2020-05-08 17:10 | NUR ---
Nursing note: Pt has remained withdrawn to her room this shift. She is med compliant and cooperative. Pt appears to be more anxious than usual today and yelling out at times. Contractors were working in room next door to her causing a lot of noise, which caused more distress for pt. She is able to be redirected. Pt's d/c postponed d/t ANC being low on 05/07. Will recheck ANC on 05/10. Will continue to monitor and report to oncoming shift.
[2020-05-08] MEDS: LORazepam 0.5 MG TABLET PO PRN (18:28)
--- NOTE | 2020-05-08 18:36 | NUR ---
Nursing note: Pt has increased anxiety tonight. PRN given per eMAR. Will continue to monitor.
[2020-05-08] MEDS: LEVOTHYROXINE 50 MCG TABLET PO SCH (20:12)
[2020-05-08] MEDS: traZODone 50 MG TABLET. PO SCH (20:12)
[2020-05-08] MEDS: ATORVASTATIN CALCIUM 20 MG TABLET PO SCH (20:12)
[2020-05-08] MEDS: cloZAPine 25 MG TABLET PO SCH (20:12)
[2020-05-08] MEDS: MIRTAZAPINE 7.5 MG TABLET. PO SCH (20:13)
[2020-05-08] MEDS: cloZAPine 100 MG TABLET PO SCH (20:13)
[2020-05-08] MEDS: ESTRADIOL 0.01% VAGINAL CREAM 42.5GM TUBE. VG SCH (20:13)
[2020-05-08] MEDS: SODIUM CHLORIDE 5% OPHTH OINTMENT 3.5GM TUBE. OU SCH (20:14)
--- NOTE | 2020-05-08 21:00 | PDOC ---
Exam Note: Julian Note: Please also refer to the separate dictated note~for this date of service dictated separately.~Patient seen individually. Discussed the patient with Nursing staff reviewed the chart.~Reviewed interim history and current functioning. Reviewed vital signs,~Labs/ Radiology~and current medications noted below. Continue current treatment with the changes noted in the dictated addendum note Assessment: Vital Signs/I&O: Vital Signs Date Time Temp Pulse Resp B/P (MAP) Pulse Ox O2 Delivery O2 Flow Rate FiO2 05/08/20 16:01 98.6 88 17 123/70 (87) 93 05/08/20 05:39 Room Air I & O 05/07/20 05/07/20 05/08/20 15:00 23:00 07:00 Intake Total 840 ml 660 ml Balance 840 ml 660 ml Labs: Laboratory Tests Test 05/08/20 12:00 White Blood Count 5.0 x10^3/uL (4.0-11.0) Red Blood Count 4.26 x10^6/uL (3.50-5.40) Hemoglobin 11.9 g/dL (12.0-15.5) L Hematocrit 37.0 % (36.0-47.0) Mean Corpuscular Volume 87 fL (79-100) Mean Corpuscular Hemoglobin 28 pg (25-35) Mean Corpuscular Hemoglobin Concent 32 g/dL (31-37) Red Cell Distribution Width 16.7 % (11.5-14.5) H Platelet Count 202 x10^3/uL (140-400) Neutrophils (%) (Auto) 52 % (31-73) Lymphocytes (%) (Auto) 32 % (24-48) Monocytes (%) (Auto) 14 % (0-9) H Eosinophils (%) (Auto) 2 % (0-3) Basophils (%) (Auto) 1 % (0-3) Neutrophils # (Auto) 2.6 x10^3uL (1.8-7.7) Lymphocytes # (Auto) 1.6 x10^3/uL (1.0-4.8) Monocytes # (Auto) 0.7 x10^3/uL (0.0-1.1) Eosinophils # (Auto) 0.1 x10^3/uL (0.0-0.7) Basophils # (Auto) 0.0 x10^3/uL (0.0-0.2) Current Medications: Meds: Current Medications Medications (Trade) Dose Ordered Sig/Bora Route PRN Reason Start Time Stop Time Status Last Admin Dose Admin Clozapine (Clozaril) 25 mg HS PO 05/07/20 21:00 05/08/20 20:12 I have reviewed the current psychotropics carefully including drug interactions. Risk benefit ratio favors no change other than as noted in my dictated progress note. Diagnosis: Problems: (1) Schizoaffective disorder, bipolar type (2) Impulse control disorder, unspecified (3) Anxiety disorder, unspecified (4) Bipolar affective, mixed, sev w/ psych (5) Mild cognitive impairment KIERSTEN WATT MD May 08, 2020 21:00
--- NOTE | 2020-05-08 22:20 | NUR ---
Pt located in her room all evening. Pt calm, initially resistive to taking her medications stating there were "too many." Pt eventually compliant with whole medications.
[2020-05-09 05:56] VITALS: BP 128/79
[2020-05-09] MEDS: AMANTADINE HCL 100 MG PO SCH (09:00)
[2020-05-09] MEDS: FUROSEMIDE 20 MG TABLET PO SCH (10:19)
[2020-05-09] MEDS: CYANOCOBALAMIN (VITAMIN B-12) 1,000 MCG TABLET. PO SCH (10:19)
[2020-05-09] MEDS: MEMANTINE 10 MG TABLET. PO SCH ×2 (10:19→19:50)
[2020-05-09] MEDS: DIVALPROEX 125 MG CAP.SPRINK PO SCH ×2 (10:19→19:50)
[2020-05-09] MEDS: DOCUSATE SODIUM 100 MG CAPSULE PO SCH ×2 (10:19→19:50)
[2020-05-09] MEDS: prednisoLONE ACETATE 1% OPHTH SUSPENSION 5ML BOTTLE. OD SCH (10:20)
[2020-05-09 15:59] VITALS: BP 99/71
--- NOTE | 2020-05-09 16:10 | NUR ---
ROSALINE spent 1:1 time with Britni addressing past enjoyable memories such as trips she has taken, cooking, places that she has lived, hobbies, and even disappointing times. We addressed things that she has tried as far as coping strategies. Britni states that she doesn't think she has any coping strategies. We talked about alternating her thinking and even walking up and down the [place] several times as a distraction to negative thoughts.
[2020-05-09] MEDS: cloZAPine 25 MG TABLET PO SCH (19:50)
[2020-05-09] MEDS: ATORVASTATIN CALCIUM 20 MG TABLET PO SCH (19:50)
[2020-05-09] MEDS: LEVOTHYROXINE 50 MCG TABLET PO SCH (19:50)
[2020-05-09] MEDS: SODIUM CHLORIDE 5% OPHTH OINTMENT 3.5GM TUBE. OU SCH (19:50)
[2020-05-09] MEDS: cloZAPine 100 MG TABLET PO SCH (19:50)
[2020-05-09] MEDS: MIRTAZAPINE 7.5 MG TABLET. PO SCH (19:51)
[2020-05-09] MEDS: traZODone 50 MG TABLET. PO SCH (19:54)
--- NOTE | 2020-05-09 20:47 | PDOC ---
Exam Note: Julian Note: Please also refer to the separate dictated note~for this date of service dictated separately.~Patient seen individually. Discussed the patient with Nursing staff reviewed the chart.~Reviewed interim history and current functioning. Reviewed vital signs,~Labs/ Radiology~and current medications noted below. Continue current treatment with the changes noted in the dictated addendum note Assessment: Vital Signs/I&O: Vital Signs Date Time Temp Pulse Resp B/P (MAP) Pulse Ox O2 Delivery O2 Flow Rate FiO2 05/09/20 15:59 98.6 89 16 99/71 (80) 94 05/08/20 05:39 Room Air I & O 05/08/20 05/08/20 05/09/20 15:00 23:00 07:00 Intake Total 840 ml 240 ml Balance 840 ml 240 ml Current Medications: I have reviewed the current psychotropics carefully including drug interactions. Risk benefit ratio favors no change other than as noted in my dictated progress note. Diagnosis: Problems: (1) Schizoaffective disorder, bipolar type (2) Impulse control disorder, unspecified (3) Anxiety disorder, unspecified (4) Bipolar affective, mixed, sev w/ psych (5) Mild cognitive impairment KIERSTEN WATT MD May 09, 2020 20:47
--- NOTE | 2020-05-09 21:06 | NUR ---
Nursing Note: Pt withdrawn to room, lying in bed at shift change. Pt calm, pleasant, and interactive when approached. Pt cooperative with assessment and compliant with medications administered whole.
[2020-05-10 05:37] VITALS: BP 111/71
[2020-05-10 07:04] LABS: BASO % 1 % (0-3); EOS # 0.2 x10^3/uL (0.0-0.7); EOS % 4 % (0-3); HEMATOCRIT 36.7 % (36.0-47.0); HEMOGLOBIN 11.8 g/dL (12.0-15.5); LYMPH # 2.1 x10^3/uL (1.0-4.8); LYMPH % 40 % (24-48); MEAN CORPUSCULAR HEMOGLOBIN 28 pg (25-35); MEAN CORPUSCULAR HGB CONC 32 g/dL (31-37); MEAN CORPUSCULAR VOLUME 86 fL (79-100); MONO # 0.7 x10^3/uL (0.0-1.1); MONO % 13 % (0-9); NEUT # 2.2 x10^3uL (1.8-7.7); NEUT % 43 % (31-73); PLATELET COUNT 203 x10^3/uL (140-400); RED BLOOD COUNT 4.26 x10^6/uL (3.50-5.40); RED CELL DISTRIBUTION WIDTH 16.4 % (11.5-14.5); WHITE BLOOD COUNT 5.2 x10^3/uL (4.0-11.0)
[2020-05-10] MEDS: prednisoLONE ACETATE 1% OPHTH SUSPENSION 5ML BOTTLE. OD SCH (08:11)
[2020-05-10] MEDS: MEMANTINE 10 MG TABLET. PO SCH (08:12)
[2020-05-10] MEDS: DOCUSATE SODIUM 100 MG CAPSULE PO SCH (08:12)
[2020-05-10] MEDS: AMANTADINE HCL 100 MG PO SCH (08:12)
[2020-05-10] MEDS: FUROSEMIDE 20 MG TABLET PO SCH (08:12)
[2020-05-10] MEDS: DIVALPROEX 125 MG CAP.SPRINK PO SCH (08:12)
[2020-05-10] MEDS: CYANOCOBALAMIN (VITAMIN B-12) 1,000 MCG TABLET. PO SCH (08:12)
--- NOTE | 2020-05-10 10:41 | NUR ---
[facility] Social Work Discharge Planning Form Patient Name CRISTAL POLLARD Admit Date: 03/21/2020 DISCHARGE PLAN Discharge Destination: [facility] Assessment: No Level II Assessment: No Transportation: Provided by facility. Special Instructions/Notes: Please fax discharge orders and current medication list. DISCHARGE TO FACILITY Facility: [facility] Address: [address] [place] [address] Contact Name: Organic Extractions Technician-Manuelito Warner
--- NOTE | 2020-05-10 12:50 | NUR ---
Transition Record was faxed to follow-up provider with the following elements: Reason for admission, procedures, tests, principal diagnosis, pending studies, patient instructions, 09/12 contact information for unit, phone number to obtain pending test results, plan for follow-up care, physician follow-up, advanced directive information, and medication list with dose, duration and instructions. This information was included in the following documents: History and physical, lab results, study results, progress notes, social work planning form, DC instruction form, patient visit summary, and medication reconciliation form. Date & time record faxed: 05/10/2020 @ 1739 Record faxed to: [facility] @ [phone] Record discussed with/ report given to: RAMONA MUÑOZ @ [phone]
--- NOTE | 2020-05-10 21:12 | PDOC ---
Exam Note: Julian Note: This note is a late entry for 05/08/2020 covers elements not covered in my initial note. Subjective: The patient was reviewed on telehealth rounds in the evening of 05/08/2020 with iLbby MUÑOZ. Discussed with nursing staff, reviewed the chart. She slept 4-1/4 hours previous night. She was given Ativan at 6.30 p.m. because she was yelling quit touching me. She was having some tactile hallucinations. Repeat absolute neutrophil count is unremarkable at 2600. Review of Systems: Impaired ambulation. No CV, , pulmonary, eye system symptoms on review. Mental Status Exam: Patient is oriented to herself and situation. Speech has moderate latency. Often response is monosyllabic. Abstraction is fair. Computation is impaired. Language function is intact. Mood and affect is somewhat withdrawn. Laboratory Data: Reviewed. Impression: Schizoaffective disorders bipolar type mixed with psychotic features. Anxiety disorder unspecified. Impulse control disorder unspecified. Plan: Continue current psychotropics. We have reduced the Clozaril because of the absolute neutrophil count, initially thought to be 1495. Continue rest of the psychotropics. Adjust as clinically indicated. Assessment: Vital Signs/I&O: Vital Signs Date Time Temp Pulse Resp B/P (MAP) Pulse Ox O2 Delivery O2 Flow Rate FiO2 05/10/20 05:37 98.1 82 18 111/71 (84) 95 05/08/20 05:39 Room Air I & O 05/09/20 05/09/20 05/10/20 14:59 22:59 06:59 Intake Total 840 ml 240 ml Balance 840 ml 240 ml Labs: Laboratory Tests Test 05/10/20 06:23 White Blood Count 5.2 x10^3/uL (4.0-11.0) Red Blood Count 4.26 x10^6/uL (3.50-5.40) Hemoglobin 11.8 g/dL (12.0-15.5) L Hematocrit 36.7 % (36.0-47.0) Mean Corpuscular Volume 86 fL (79-100) Mean Corpuscular Hemoglobin 28 pg (25-35) Mean Corpuscular Hemoglobin Concent 32 g/dL (31-37) Red Cell Distribution Width 16.4 % (11.5-14.5) H Platelet Count 203 x10^3/uL (140-400) Neutrophils (%) (Auto) 43 % (31-73) Lymphocytes (%) (Auto) 40 % (24-48) Monocytes (%) (Auto) 13 % (0-9) H Eosinophils (%) (Auto) 4 % (0-3) H Basophils (%) (Auto) 1 % (0-3) Neutrophils # (Auto) 2.2 x10^3uL (1.8-7.7) Lymphocytes # (Auto) 2.1 x10^3/uL (1.0-4.8) Monocytes # (Auto) 0.7 x10^3/uL (0.0-1.1) Eosinophils # (Auto) 0.2 x10^3/uL (0.0-0.7) Basophils # (Auto) 0.0 x10^3/uL (0.0-0.2) Current Medications: I have reviewed the current psychotropics carefully including drug interactions. Risk benefit ratio favors no change other than as noted in my dictated progress note. Diagnosis: Problems: (1) Schizoaffective disorder, bipolar type (2) Impulse control disorder, unspecified (3) Anxiety disorder, unspecified (4) Bipolar affective, mixed, sev w/ psych (5) Mild cognitive impairment KIERSTEN WATT MD May 10, 2020 21:12
--- NOTE | 2020-05-10 21:39 | PDOC ---
Exam Note: Julian Note: This note is a late entry for 05/09/2020 covers elements not covered in my initial note. Subjective: The patient was reviewed on telehealth rounds in the evening of 05/09/2020 with Stacie MUÑOZ. Discussed with nursing staff, reviewed the chart. She slept 7 hours previous night. She has been out of her room more. She is more interactive, less paranoid. Review of Systems: Impaired ambulation. No CV, , pulmonary, eye system symptoms on review. Mental Status Exam: Patient is oriented to herself and situation. She is little more verbally interactive, but still verbal responses are moderate latency. Often response is monosyllabic. Abstraction is fair. Computation is impaired. Language function is intact. No psychotic symptoms, suicidal or homicidal ideation. Laboratory Data: Reviewed. Impression: Schizoaffective disorders bipolar type mixed with psychotic features. Anxiety disorder unspecified. Impulse control disorder unspecified. Plan: Continue current psychotropics. Her absolute neutrophil count at first check was low and we will reduce the Clozaril. Repeat ANC was unremarkable but we will maintain Clozaril at the lower dosage secondary to the ANC reduction but we will have to increase it again gradually back as an outpatient. Assessment: Vital Signs/I&O: Vital Signs Date Time Temp Pulse Resp B/P (MAP) Pulse Ox O2 Delivery O2 Flow Rate FiO2 05/10/20 05:37 98.1 82 18 111/71 (84) 95 05/08/20 05:39 Room Air I & O 05/09/20 05/09/20 05/10/20 15:00 23:00 07:00 Intake Total 840 ml 240 ml Balance 840 ml 240 ml Labs: Laboratory Tests Test 05/10/20 06:23 White Blood Count 5.2 x10^3/uL (4.0-11.0) Red Blood Count 4.26 x10^6/uL (3.50-5.40) Hemoglobin 11.8 g/dL (12.0-15.5) L Hematocrit 36.7 % (36.0-47.0) Mean Corpuscular Volume 86 fL (79-100) Mean Corpuscular Hemoglobin 28 pg (25-35) Mean Corpuscular Hemoglobin Concent 32 g/dL (31-37) Red Cell Distribution Width 16.4 % (11.5-14.5) H Platelet Count 203 x10^3/uL (140-400) Neutrophils (%) (Auto) 43 % (31-73) Lymphocytes (%) (Auto) 40 % (24-48) Monocytes (%) (Auto) 13 % (0-9) H Eosinophils (%) (Auto) 4 % (0-3) H Basophils (%) (Auto) 1 % (0-3) Neutrophils # (Auto) 2.2 x10^3uL (1.8-7.7) Lymphocytes # (Auto) 2.1 x10^3/uL (1.0-4.8) Monocytes # (Auto) 0.7 x10^3/uL (0.0-1.1) Eosinophils # (Auto) 0.2 x10^3/uL (0.0-0.7) Basophils # (Auto) 0.0 x10^3/uL (0.0-0.2) Current Medications: I have reviewed the current psychotropics carefully including drug interactions. Risk benefit ratio favors no change other than as noted in my dictated progress note. Diagnosis: Problems: (1) Schizoaffective disorder, bipolar type (2) Impulse control disorder, unspecified (3) Anxiety disorder, unspecified (4) Bipolar affective, mixed, sev w/ psych (5) Mild cognitive impairment KIERSTEN WATT MD May 10, 2020 21:39
--- NOTE | 2020-05-10 21:50 | PDOC ---
Exam Note: Julian Note: Please also refer to the separate dictated note~for this date of service dictated separately.~Patient seen individually. Discussed the patient with Nursing staff reviewed the chart.~Reviewed interim history and current functioning. Reviewed vital signs,~Labs/ Radiology~and current medications noted below. Continue current treatment with the changes noted in the dictated addendum note Assessment: Vital Signs/I&O: Vital Signs Date Time Temp Pulse Resp B/P (MAP) Pulse Ox O2 Delivery O2 Flow Rate FiO2 05/10/20 05:37 98.1 82 18 111/71 (84) 95 05/08/20 05:39 Room Air I & O 05/09/20 05/09/20 05/10/20 15:00 23:00 07:00 Intake Total 840 ml 240 ml Balance 840 ml 240 ml Labs: Laboratory Tests Test 05/10/20 06:23 White Blood Count 5.2 x10^3/uL (4.0-11.0) Red Blood Count 4.26 x10^6/uL (3.50-5.40) Hemoglobin 11.8 g/dL (12.0-15.5) L Hematocrit 36.7 % (36.0-47.0) Mean Corpuscular Volume 86 fL (79-100) Mean Corpuscular Hemoglobin 28 pg (25-35) Mean Corpuscular Hemoglobin Concent 32 g/dL (31-37) Red Cell Distribution Width 16.4 % (11.5-14.5) H Platelet Count 203 x10^3/uL (140-400) Neutrophils (%) (Auto) 43 % (31-73) Lymphocytes (%) (Auto) 40 % (24-48) Monocytes (%) (Auto) 13 % (0-9) H Eosinophils (%) (Auto) 4 % (0-3) H Basophils (%) (Auto) 1 % (0-3) Neutrophils # (Auto) 2.2 x10^3uL (1.8-7.7) Lymphocytes # (Auto) 2.1 x10^3/uL (1.0-4.8) Monocytes # (Auto) 0.7 x10^3/uL (0.0-1.1) Eosinophils # (Auto) 0.2 x10^3/uL (0.0-0.7) Basophils # (Auto) 0.0 x10^3/uL (0.0-0.2) Current Medications: I have reviewed the current psychotropics carefully including drug interactions. Risk benefit ratio favors no change other than as noted in my dictated progress note. Diagnosis: Problems: (1) Schizoaffective disorder, bipolar type (2) Impulse control disorder, unspecified (3) Anxiety disorder, unspecified (4) Bipolar affective, mixed, sev w/ psych (5) Mild cognitive impairment KIERSTEN WATT MD May 10, 2020 21:50
--- NOTE | 2020-05-11 23:22 | DS ---
DATE OF DISCHARGE: 05/10/2020 DISCHARGE SUMMARY/PSYCHIATRIC PROGRESS NOTE This is a late entry, date of service 05/10/2020, covers elements not covered in my initial note. REASON FOR ADMISSION: Please refer to the admission history for details. Briefly, the patient is a 70-year-old female who returns back to us from [facility], referred by her primary care physician and psychiatrist on account of an acute exacerbation of her schizoaffective disorder, bipolar type, with severe psychotic symptoms. The patient had appeared manic, was digging at her hair and face. She was agitated, psychotic, paranoid, delusional. She was having marked insomnia, was having constant body movements that were unmanageable. Since her last hospitalization at her facility, it appears she had been taken off her lithium, Depakote and Clozaril and psychotic symptoms, mood vacillations had resurfaced significantly resulting in this referral back to us. SIGNIFICANT FINDINGS AND CLINICAL COURSE: Following admission, the patient was seen daily individually by myself from a psychiatric standpoint, medical followup with Dr. Jacome/Dr. Quiñones. The patient was restarted on Clozaril and gradually increased up to 150 mg a day, at 25 mg a day increments every week while monitoring the absolute neutrophil counts, which initially remained stable. Towards the end, ANC had dropped somewhat and per pharmacy recommendation Clozaril was dropped down to 125 mg a day prior to her discharge. Additionally, she seemed to have stabilized on a combination of Depakote 375 mg b.i.d. with a Valproic acid level therapeutic at 68. She remained on Namenda 10 mg b.i.d., Remeron 7.5 mg at bedtime, trazodone 12.5 mg at bedtime and 50 mg at bedtime p.r.n. insomnia, may repeat x 1. Ativan 0.25 mg t.i.d. p.r.n., Luvox 25 mg at bedtime for her marked OCD symptoms. Amantadine 100 mg daily. REVIEW OF SYSTEMS: No CV, , pulmonary, eye system symptoms on review. She does continue to have some involuntary movements, but much improved since admission. No suicidal or homicidal ideation prior to discharge. Prior to discharge, 05/10/2020, patient is oriented to herself and situation. Speech is often responses monosyllabic. Abstraction fair, computation impaired, language function intact, attention span short. Mood and affect less withdrawn. She had been going out to groups and activities quite an improvement since admission. FINAL DIAGNOSES: Schizoaffective disorder, bipolar type, mixed with psychotic features, in partial remission; anxiety disorder, unspecified; impulse control disorder, unspecified, probable early tardive dyskinesia. Rest unchanged from admission. DISCHARGE MEDICATIONS: Please refer to the MRAD. The patient needs weekly CBC, absolute neutrophil counts and Clozaril should be gradually increased at increments of 25 mg a day every week, so long as the absolute neutrophil counts are stable until it reaches approximately to 5300 mg a day. Time for discharge day management greater than 30 minutes. KIERSTEN WATT MD DR: SANCHEZ/fredrick JOB#: [id number] / [id number]
== END 2020-05-10 12:50 | DRG 885 ==
LOC: GEROPSY 18:15
PROVIDERS: ADMIT Psychiatry & Neurology Psychiatry; ATTEND Psychiatry & Neurology Psychiatry
DX: F25.0 Schizoaffective disorder, bipolar type (principal); E78.5 Hyperlipidemia, unspecified; E03.9 Hypothyroidism, unspecified; Z20.828 Contact with and (suspected) exposure to other viral communicable diseases; F41.9 Anxiety disorder, unspecified; G24.01 Drug induced subacute dyskinesia; G47.00 Insomnia, unspecified; F09 Unspecified mental disorder due to known physiological condition; F42.9 Obsessive-compulsive disorder, unspecified; F63.9 Impulse disorder, unspecified; G31.84 Mild cognitive impairment of uncertain or unknown etiology; I10 Essential (primary) hypertension; Z88.8 Allergy status to other drugs, medicaments and biological substances; Z79.899 Other long term (current) drug therapy
CPT/HCPCS: 36415; 80053; 80061; 80164; 81001; 82140; 82306; 82607; 83036; 83540; 83550; 83735; 83970; 84100; 84436; 84443; 84480; 85025; 86592; 87086; 92526; Q0177; U0003; 92610

== ENCOUNTER 2020-07-01 10:54 | Inpatient (IN) | payer MEDICARE ==
[~2020-07-01] VITALS: Ht 160 cm; Wt 78.0 kg
[~2020-07-01 10:54] MED LIST changes: +BISA10SU55 RC; +CLOZ100T PO; +CLOZ25TA PO; +DOCU-109 PO; +FLUV25TA PO; +LEVO50TA5 PO; +LORA0.5T21 PO; +METH57CR17 TP
[2020-07-01] MEDS ORDERED: POLYVINYL ALCOHOL/POVIDONE/PF OPHTH SOLUTION DROPERETTE. OU PRN (15:00)
[2020-07-01] MEDS ORDERED: ZIPRASIDONE IM 20 MG VIAL. IM PRN (15:00)
[2020-07-01] MEDS ORDERED: DOCUSATE SODIUM 100 MG CAPSULE PO PRN (15:00)
--- NOTE | 2020-07-01 15:00 | NUR ---
Admission Note with Justification for Admission to [facility] Patient admitted to [facility] for protective oversight for emergency stabilization of acute psychiatric crisis. Pt admitted from: Hospital ER Mode of arrival: Secure Transport Accompanied By: Secure Transport Precipitating behaviors that initiated intake and admission: hallucinating, grandiose, manic Description of failure of out patient attempts at stabilization in previous setting list behavior and medication trials: alejandra Man Behaviors and assessment findings upon admission: manic, belligerent, high pitched speech Plan: Admit for protective oversight for adjustment and stabilization of medications, behaviors and mood. Intense treatment regimen including groups, medication adjustments, therapy, consistent regimen for ADL's, self care, and sleep hygiene. Daily monitoring by Inpatient staff, Psychiatry, and Medical Physician.
[2020-07-01] MEDS ORDERED: TRAZ-125 PO (15:09)
[2020-07-01] MEDS ORDERED: GUAI473L15 PO (15:09)
[2020-07-01] MEDS ORDERED: ZIPR20VI IM (15:09)
[2020-07-01] MEDS ORDERED: OLAN5TAB99 PO (15:09)
[2020-07-01 15:22] VITALS: BP 135/78
[2020-07-01] MEDS ORDERED: CYAN100072 PO (15:29)
[2020-07-01] MEDS ORDERED: BISA-42 PO (15:29)
[2020-07-01] MEDS ORDERED: ATOR20TA58 PO (15:29)
[2020-07-01] MEDS ORDERED: CLOZ100T PO (15:29)
[2020-07-01] MEDS ORDERED: ACET325T21 PO (15:29)
[2020-07-01] MEDS ORDERED: AMAN100T PO (15:29)
--- NOTE | 2020-07-01 17:43 | NUR ---
Pt came out for supper to Was only out there short while before she became combative and was escorted to room.
[2020-07-01] MEDS ORDERED: MAGNESIUM HYDROXIDE 2,400 MG/30 ML ORAL.SUSP. PO PRN (17:45)
[2020-07-01] MEDS ORDERED: guaiFENesin/CODEINE 100mg/10mg 5 ML LIQUID PO PRN (17:45)
[2020-07-01] MEDS ORDERED: MAG HYDROX/AL HYDROX/SIMETH 30 ML ORAL.SUSP PO PRN (17:45)
[2020-07-01] MEDS: MIRTAZAPINE 7.5 MG TABLET. PO SCH (20:22)
[2020-07-01] MEDS: LEVOTHYROXINE 50 MCG TABLET PO SCH (20:23)
[2020-07-01] MEDS: MEMANTINE 10 MG TABLET. PO SCH (20:23)
[2020-07-01] MEDS: DIVALPROEX 125 MG CAP.SPRINK PO SCH (20:24)
--- NOTE | 2020-07-01 21:21 | PDOC ---
Exam Note: Julian Note: Please also refer to the separate dictated note~for this date of service dictated separately.~Patient seen individually. Discussed the patient with Nursing staff reviewed the chart.~Reviewed interim history and current functioning. Reviewed vital signs,~Labs/ Radiology~and current medications noted below. Continue current treatment with the changes noted in the dictated addendum note Assessment: Vital Signs/I&O: Vital Signs Date Time Temp Pulse Resp B/P (MAP) Pulse Ox O2 Delivery O2 Flow Rate FiO2 07/01/20 15:22 97.8 90 22 135/78 (97) 97 Room Air Current Medications: Meds: Current Medications Medications (Trade) Dose Ordered Sig/Bora Route PRN Reason Start Time Stop Time Status Last Admin Dose Admin Divalproex Sodium (Depakote Sprinkles) 375 mg BID PO 07/01/20 21:00 07/01/20 20:24 Fluvoxamine Maleate (Luvox) 25 mg HS PO 07/01/20 21:00 07/01/20 20:22 Levothyroxine Sodium (Synthroid) 50 mcg HS PO 07/01/20 21:00 07/01/20 20:23 Memantine (Namenda) 10 mg BID PO 07/01/20 21:00 07/01/20 20:23 Mirtazapine (Remeron) 7.5 mg QHS PO 07/01/20 21:00 07/01/20 20:22 I have reviewed the current psychotropics carefully including drug interactions. Risk benefit ratio favors no change other than as noted in my dictated progress note. Diagnosis: Problems: (1) Bipolar affective, mixed, sev w/ psych (2) Impulse control disorder (3) Impulse control disorder, unspecified (4) Schizoaffective disorder, bipolar type KIERSTEN WATT MD Jul 01, 2020 21:21
--- NOTE | 2020-07-01 21:30 | NUR ---
Patient is located in her room on assumption of care, awake in bed. She is very irritable and demanding. She is in a onesie, having pulled both arms and legs into the garment. She has removed her brief and is using it as a pillow. Refused to answer any assessment questions. When this nurse approached her with her medications, she yelled "What the hell, I've been waiting all day, you never gave me my morning meds." This nurse attempted to reorient patient to the fact that she had arrived to our unit at approximately 1500. Patient refused explanation. When offered meds whole, patient demanded "Give me a shot! It will be easier." This nurse informed her that she would not be receiving her HS meds that way, and offered to crush them. When asked what patient preferred them mixed with, she answered "Vanilla, chocolate, ice cream, cranberry juice, skim milk!" As this nurse was walking out of her room, patient yelled "[place] my nails, paint my nails!!!" Returned with medications crushed in chocolate ice cream, which the patient consumed without issue. Will continue to monitor.
--- NOTE | 2020-07-01 22:15 | NUR ---
Patient heard yelling loudly. Staff responded immediately and found patient sitting on the toilet, completely naked. Screaming loudly "Fuck! Fuck you you fucking bitch! I'm not gonna fuck you!" and similar obscene comments. Attempts at redirection and distraction completely unsuccessful, only serving to escalate the patient's anger. Staff assist of 3 required to re-dress the patient and escort her to the [facility]. Once seated, she glared angrily at this press writer and said "It's cause of you, you bitch! My nails were purple, these were green, in the green room. Then you scraped it off." "[place] my nails, paint them NOW!" Again, despite attempts by several staff members to engage in productive communication, patient continued to escalate her anger. Patient escorted back to her room to have IM Geodon administered at that time. Staff assist of 4 required to position patient and administer the medication. Patient yelled "It's my butt, you can't drink it." Medication administered successfully at 2200 and patient escorted back to the hallway. Will continue to monitor.
[2020-07-01] MEDS: traZODone 100 MG TABLET. PO PRN (23:27)
--- NOTE | 2020-07-02 00:11 | HP ---
ADMIT DATE: 07/01/2020 PSYCHIATRIC ADMISSION HISTORY/EVALUAITON IDENTIFYING DATA: The patient is a 70-year-old female referred back to us from [facility] from where she was sent to [facility] on account of acute exacerbation of her schizoaffective disorder, bipolar type, manic. She was having marked insomnia, physical, verbal outburst, throwing coffee at others, grandiose, hallucinating. She failed outpatient psychiatric interventions. Had previously been hospitalized with us in the past. Behaviors deemed dangerous, unmanageable resulting in this referral. CHIEF COMPLAINT: "There is nothing wrong with me. I keep doing. There is no reason for them sent me here. No need to check for the reason. I know the reason". The patient remains extremely hyperverbal, grandiose, quite labile in her mood, and paranoid. HISTORY OF PRESENT ILLNESS: The patient has a diagnosis of schizoaffective disorder, bipolar type, with psychotic features. During past hospitalizations, she has been extremely psychotic, but this time, she appeared extremely manic with significant insomnia. No active suicidal or homicidal ideation. She has been paranoid as well, extremely grandiose, hyperverbal. PAST PSYCHIATRIC HISTORY: As above and the patient has been hospitalized with us on several occasions in the past. MEDICAL HISTORY: Positive for hyperlipidemia, hypothyroidism, impulse control disorder, cognitive impairment, hypertension. ACCU-CHEKS: None. CODE STATUS: Full code. ALLERGIES: BENZODIAZEPINES AND LITHIUM. FAMILY HISTORY: Noncontributory. SOCIAL HISTORY: No history of alcohol, drug abuse, physical, sexual or elder abuse. She is not known to be a perpetrator. REACTION TO HOSPITALIZATION: The patient reluctantly accepting. IMPRESSION: Schizoaffective disorder, bipolar type, manic with psychotic features; anxiety disorder, unspecified; impulse control disorder, unspecified. Rest as above. PLAN: Admit to Geropsychiatry Unit at [facility]. I will see the patient daily individually from a psychiatric standpoint. Medical followup with Dr. Jacome/Dr. Quiñones. Continue current psychotropics. Follow CBC, absolute neutrophil count weekly because of her clozapine. She maintained rest of the psychotropics. May need to increase the clozapine and we will check a valproic acid level. Make further adjustments as clinically indicated. ESTIMATED LENGTH OF STAY: 10-12 days. DISPOSITION: Plans back to [facility] when stable. MAN Rox WATT MD DR: SANCHEZ/fredrick JOB#: [id number] / [id number]
--- NOTE | 2020-07-02 00:53 | NUR ---
Despite IM administration of PRN Geodon, patient remains restless and hyperverbal, loudly yelling "I won't fuck a toe, I won't fuck a word, and I won't fuck a turd." and other similar obscenities at a practically nonstop rate. She began complaining about being hungry, asking for skim milk, asking for popsicles, and sprinkling vulgar statements throughout. PRN Trazodone and PRN Zydis crushed and mixed with ice cream, which patient consumed without issue. She settled for a very brief period of time, and then began screeching nonsensically. Whipped her empty ice cream containers at the nurses station window and demanded "Take me to the bathroom, bitch!" This nurse asked patient if she would like to go to bed after the bathroom and she agreed. Once back in her room though, patient sat in the chair. When asked about going to the bathroom as she had requested, patient said sarcastically, "Get out of here bitch." Patient escorted with staff assist of 3 back to the hallway, -weighting the entire way. She then proceeded to use her own saliva to style a horn on the front of her hair, glaring angrily through the nurses station. Patient appeared to be slowing down some, so decision was made to move patient to mattress in quiet room. She was not happy with that, but was escorted to the mattress. After some grumbling, patient laid down and put covers over herself. She appears to be sleeping at present time.
[2020-07-02 06:26] VITALS: BP 100/63
[2020-07-02] MEDS: MEMANTINE 10 MG TABLET. PO SCH ×3 (08:19→20:17)
[2020-07-02] MEDS: DIVALPROEX 125 MG CAP.SPRINK PO SCH ×3 (08:19→20:16)
[2020-07-02] MEDS: FUROSEMIDE 20 MG TABLET PO SCH ×2 (08:21→09:00)
[2020-07-02] MEDS: prednisoLONE ACETATE 1% OPHTH SUSPENSION 5ML BOTTLE. OD SCH (09:00)
[2020-07-02 09:51] LABS: BASO % 1 % (0-3); EOS # 0.2 x10^3/uL (0.0-0.7); EOS % 3 % (0-3); HEMATOCRIT 40.8 % (36.0-47.0); HEMOGLOBIN 13.1 g/dL (12.0-15.5); LYMPH # 1.9 x10^3/uL (1.0-4.8); LYMPH % 35 % (24-48); MEAN CORPUSCULAR HEMOGLOBIN 28 pg (25-35); MEAN CORPUSCULAR HGB CONC 32 g/dL (31-37); MEAN CORPUSCULAR VOLUME 86 fL (79-100); MONO % 18 % (0-9); NEUT # 2.4 x10^3uL (1.8-7.7); NEUT % 43 % (31-73); PLATELET COUNT 217 x10^3/uL (140-400); RED BLOOD COUNT 4.73 x10^6/uL (3.50-5.40); RED CELL DISTRIBUTION WIDTH 16.5 % (11.5-14.5); WHITE BLOOD COUNT 5.5 x10^3/uL (4.0-11.0)
[2020-07-02 10:08] LABS: ALBUMIN 3.3 g/dL (3.4-5.0); ALBUMIN/GLOBULIN RATIO 0.7 (1.0-1.7); CALCIUM 10.2 mg/dL (8.5-10.1); GFR 54.7; MAGNESIUM 2.1 mg/dL (1.8-2.4); POTASSIUM 4.7 mmol/L (3.5-5.1); TOTAL BILIRUBIN 0.3 mg/dL (0.2-1.0); TOTAL PROTEIN 7.8 g/dL (6.4-8.2)
[2020-07-02 10:41] LABS: VAL ACID 37 mcg/mL (50-100)
[2020-07-02] MEDS: ZIPRASIDONE IM 20 MG VIAL. IM SCH (11:15)
--- NOTE | 2020-07-02 19:24 | CONS ---
DATE OF CONSULTATION: 07/02/2020 REASON FOR CONSULTATION: Medical management. HISTORY OF PRESENT ILLNESS: The patient is a 70-year-old female patient, a resident at [facility] post-acute to [facility] on 06/24/2020 on account of being manic with marked insomnia, outbursts, throwing coffee, grandiose, hallucinating, all this in a background of schizoaffective disorder, bipolar type. She was medically stabilized at the [facility] and was transferred to [facility] for inpatient psychiatric stabilization. PAST MEDICAL HISTORY: Significant for dyslipidemia, hypertension, and hypothyroidism. PAST SURGICAL HISTORY: Unremarkable. PAST PSYCHIATRIC HISTORY: Significant for depression, impulse control disorder, cognitive impairment and schizoaffective disorder, bipolar type. ALLERGIES: SHE IS ALLERGIC TO BENZODIAZEPINE, CLONAZEPAM, LITHIUM, AND LORAZEPAM. MEDICATIONS: She is currently on following medications: She is on estradiol 1 vaginal application once a month, clonazepam 150 mg at bedtime, ziprasidone 40 mg intramuscular daily, olanzapine 5 mg every 2 hours, prednisolone acetate for Pred Forte 1 drop to both eyes once a day, furosemide 20 mg once a day, mirtazapine 7.5 mg at bedtime, Namenda 10 mg twice a day, levothyroxine sodium 50 mcg at bedtime, divalproex 375 mg twice a day and milk of magnesia 30 mL p.o. daily p.r.n. for constipation, Mylanta 15 mL every 2 hours as needed, Robitussin AC 5 mL every 4 hours, trazodone 100 mg at bedtime, tramadol 50 mg every 8 hours, artificial tears 1 drop to both eyes 3 times a day, Colace 100 mg twice a day and diclofenac sodium 1 application 4 times a day. FAMILY HISTORY: Noncontributory. SOCIAL HISTORY: She is a resident at [facility]. She does not smoke, drink alcohol or use any recreational drugs. The patient was extremely agitated and was given Geodon 40 mg intramuscular and olanzapine 5 mg. PHYSICAL EXAMINATION: GENERAL: She was resting flat, comfortably in bed, in no apparent respiratory distress. No pallor, jaundice, cyanosis or thyromegaly. No jugular venous distention. No lower limb edema. VITAL SIGNS: Her heart rate was 72, blood pressure 100/63, temperature was 97.1, respiratory rate was 16, and oxygen saturation was 97%. HEAD, EYES, EARS, NOSE AND THROAT: Normocephalic, atraumatic. NECK: Supple. HEART: Normal first and second heart sounds. No gallop, rub or murmur. CHEST: Clear to auscultation. No crepitation or rhonchi. ABDOMEN: Distended, soft, nontender. No guarding or rigidity. No organomegaly. All hernial orifice intact. Bowel sounds normal. NEUROLOGIC: The patient was sleeping comfortably. She was grossly normal. LABORATORY DATA: Showed a white cell count 5500, hemoglobin 13, hematocrit 41, MCV 86 and platelet count 217,000. Serum sodium is 148, potassium 4.7, chloride 110, bicarbonate 30, anion gap of 8, BUN 22, and creatinine 1. Estimated GFR was 54 mL per minute. Her glucose 114, calcium was 10.2, and magnesium was 2.1. Total bilirubin, AST, ALT, alkaline phosphatase were normal. Total protein was 7.8 and albumin 3.3. Her toxic screen showed a valproic acid to be 37 mcg/mL. ASSESSMENT AND PLAN: In summary, this is a 70-year-old female patient, a resident at [facility], who was admitted to the Emergency Room to [facility] with acute psychosis. She was continued on her other medications and stabilized medically and then transferred to [facility] for inpatient psychiatric stabilization as she has been manic with insomnia. She has outbursts of anger, throwing coffee. She is very grandiose and hallucinating, all this in a background of schizoaffective disorder, bipolar type. Medically, she seems to be all in all stable, her vitals are within normal range and her lab works are also all within acceptable range except that her sodium is slightly high and she requires probably more water. I will continue all his current medication. I will definitely follow all her other labs that are still pending at this time and make any necessary recommendation. Thank you, Dr. Pinzon for allowing me to participate in the care of this patient. TANIA DELGADO MD DR: TRINIDAD/fredrick JOB#: [id number] / [id number]
[2020-07-02] MEDS: LEVOTHYROXINE 50 MCG TABLET PO SCH (20:17)
[2020-07-02] MEDS: cloZAPine 100 MG TABLET PO SCH (20:18)
[2020-07-02] MEDS: MIRTAZAPINE 7.5 MG TABLET. PO SCH (20:19)
[2020-07-02] MEDS: traMADol 50 MG TABLET PO PRN (20:22)
[2020-07-02] MEDS: traZODone 100 MG TABLET. PO PRN (20:22)
--- NOTE | 2020-07-02 20:56 | PDOC ---
Exam Note: Julian Note: Please also refer to the separate dictated note~for this date of service dictated separately.~Patient seen individually. Discussed the patient with Nursing staff reviewed the chart.~Reviewed interim history and current functioning. Reviewed vital signs,~Labs/ Radiology~and current medications noted below. Continue current treatment with the changes noted in the dictated addendum note Assessment: Vital Signs/I&O: Vital Signs Date Time Temp Pulse Resp B/P (MAP) Pulse Ox O2 Delivery O2 Flow Rate FiO2 07/02/20 20:22 97 07/02/20 06:26 97.1 72 16 100/63 (75) 07/01/20 15:22 Room Air I & O 07/01/20 07/01/20 07/02/20 15:00 23:00 07:00 Intake Total 200 ml Balance 200 ml Labs: Laboratory Tests Test 07/02/20 09:30 07/02/20 09:40 07/02/20 10:00 White Blood Count 5.5 x10^3/uL (4.0-11.0) Red Blood Count 4.73 x10^6/uL (3.50-5.40) Hemoglobin 13.1 g/dL (12.0-15.5) Hematocrit 40.8 % (36.0-47.0) Mean Corpuscular Volume 86 fL (79-100) Mean Corpuscular Hemoglobin 28 pg (25-35) Mean Corpuscular Hemoglobin Concent 32 g/dL (31-37) Red Cell Distribution Width 16.5 % (11.5-14.5) H Platelet Count 217 x10^3/uL (140-400) Neutrophils (%) (Auto) 43 % (31-73) Lymphocytes (%) (Auto) 35 % (24-48) Monocytes (%) (Auto) 18 % (0-9) H Eosinophils (%) (Auto) 3 % (0-3) Basophils (%) (Auto) 1 % (0-3) Neutrophils # (Auto) 2.4 x10^3uL (1.8-7.7) Lymphocytes # (Auto) 1.9 x10^3/uL (1.0-4.8) Monocytes # (Auto) 1.0 x10^3/uL (0.0-1.1) Eosinophils # (Auto) 0.2 x10^3/uL (0.0-0.7) Basophils # (Auto) 0.0 x10^3/uL (0.0-0.2) Thyroid Stimulating Hormone (TSH) 1.357 uIU/mL (0.358-3.740) Valproic Acid Level 37 mcg/mL (50-100) L Valproic Acid Last Dose Date 07/01/20 Valproic Acid Last Dose Time 2100 Sodium Level 148 mmol/L (136-145) H Potassium Level 4.7 mmol/L (3.5-5.1) Chloride Level 110 mmol/L (98-107) H Carbon Dioxide Level 30 mmol/L (21-32) Anion Gap 8 (6-14) Blood Urea Nitrogen 22 mg/dL (7-20) H Creatinine 1.0 mg/dL (0.6-1.0) Estimated GFR (Cockcroft-Gault) 54.7 BUN/Creatinine Ratio 22 (6-20) H Glucose Level 114 mg/dL (70-99) H Calcium Level 10.2 mg/dL (8.5-10.1) H Magnesium Level 2.1 mg/dL (1.8-2.4) Total Bilirubin 0.3 mg/dL (0.2-1.0) Aspartate Amino Transferase (AST) 24 U/L (15-37) Alanine Aminotransferase (ALT) 21 U/L (14-59) Alkaline Phosphatase 105 U/L (46-116) Total Protein 7.8 g/dL (6.4-8.2) Albumin 3.3 g/dL (3.4-5.0) L Albumin/Globulin Ratio 0.7 (1.0-1.7) L Current Medications: Meds: Current Medications Medications (Trade) Dose Ordered Sig/Bora Route PRN Reason Start Time Stop Time Status Last Admin Dose Admin Divalproex Sodium (Depakote Sprinkles) 375 mg BID PO 07/01/20 21:00 07/02/20 20:16 Fluvoxamine Maleate (Luvox) 25 mg HS PO 07/01/20 21:00 07/02/20 09:40 DC 07/01/20 20:22 Levothyroxine Sodium (Synthroid) 50 mcg HS PO 07/01/20 21:00 07/02/20 20:17 Memantine (Namenda) 10 mg BID PO 07/01/20 21:00 07/02/20 20:17 Mirtazapine (Remeron) 7.5 mg QHS PO 07/01/20 21:00 07/02/20 20:19 Olanzapine (ZyPREXA ZYDIS) 5 mg PRN Q2HRS PRN PO ANXIETY / AGITATION 07/02/20 09:45 07/02/20 20:20 Clozapine (Clozaril) 150 mg HS PO 07/02/20 21:00 07/02/20 20:18 Ziprasidone (Geodon Im) 40 mg DAILY IM 07/02/20 11:15 07/02/20 11:15 I have reviewed the current psychotropics carefully including drug interactions. Risk benefit ratio favors no change other than as noted in my dictated progress note. Diagnosis: Problems: (1) Schizoaffective disorder, bipolar type (2) Impulse control disorder, unspecified (3) Anxiety disorder, unspecified (4) Bipolar affective, manic, severe w/ psych KIERSTEN WATT MD Jul 02, 2020 20:56
--- NOTE | 2020-07-02 22:31 | HP ---
ADMIT DATE: 07/01/2020 PSYCHIATRIC ADMISSION/EVALUATION This late entry date of service 07/01/2020 covers the elements not covered in my initial note. SUBJECTIVE: I met with the patient in the evening of 07/01/2020 previously discussed with nursing staff, reviewed the chart. Also, previously discussed with Chiara Lopez, area coordinator. IDENTIFYING DATA: The patient is a 70-year-old female, who was referred to us from [facility] where she was hospitalized on referral from [facility] in [place], [place] on account of recurrence of her amita with marked psychotic symptoms, agitation within the context of her bipolar disorder. The patient had been manic, hyperverbal, having marked insomnia, having outbursts, throwing coffee, grandiose, hallucinating, disruptive, totally out of control at the longterm, resulting in referral to [facility] but these behaviors persisted at [facility] and then she is referred to us for psychiatric stabilization. CHIEF COMPLAINT: "There is nothing wrong. They do not have a reason to send me here. I know the reason they sent me here. You don't need to find out. I know everything." HISTORY OF PRESENT ILLNESS: The patient has a long history of schizoaffective disorder, bipolar type. She has been hospitalized with us many times in the past. She has been stable at the longterm for some time, but over the past couple of weeks, she has been increasingly manic, grandiose, psychotic, paranoid, with marked insomnia, agitation, aggression, disruptive behaviors as noted above. No active suicidal or homicidal ideation. PAST PSYCHIATRIC HISTORY: As above. MEDICAL HISTORY: Positive for hyperlipidemia, hypothyroidism, and hypertension. CODE STATUS: Full code. ALLERGIES: BENZODIAZEPINES AND LITHIUM. DIET: Regular. Takes medications whole, ambulates up ad argelia. CURRENT PSYCHOTROPICS: Geodon 20 mg IM b.i.d. p.r.n. psychosis, Depakote 375 mg b.i.d., Luvox 25 mg at bedtime, Namenda 10 mg b.i.d., trazodone 100 mg at bedtime p.r.n. insomnia, Remeron 7.5 mg at bedtime, Clozaril 125 mg at bedtime. FAMILY HISTORY: Noncontributory. SOCIAL HISTORY: No history of alcohol, drug abuse, physical, sexual or elder abuse. She is not known to be a perpetrator. REACTION TO HOSPITALIZATION: The patient is not fully accepting it. LABORATORY DATA: Reviewed. REVIEW OF SYSTEMS: No CV, , pulmonary, eye, ENT system symptoms on review. Reliability is poor. MENTAL STATUS EXAMINATION: The patient was seen individually in the evening of 07/01/2020 in her room. She is under covers, but undressed under the covers. Eye contact is good. Psychomotor activity: Increased. She is extremely hyperverbal, grandiose, easily distracted. No active suicidal or homicidal ideation. She is paranoid, intermittently hallucinating as I observed her. Attention span is short. Language function is intact. IMPRESSION: Schizoaffective disorder, bipolar type, mixed with psychotic features versus bipolar disorder, manic with psychotic features; anxiety disorder, unspecified; impulse control disorder, unspecified. Rest as above. PLAN: Admit to Geropsychiatry Unit at [facility]. I will see the patient daily individually from a psychiatric standpoint. Medical followup with Dr. Jacome/Dr. Quiñones. Continue current psychotropics. Consider increasing Clozaril. Check a valproic acid level, adjust to reach therapeutic level. Change the Geodon 20 mg IM b.i.d. p.r.n. to Geodon 40 mg IM every day since the oral antipsychotics have been relatively ineffective. Make further adjustments as clinically indicated. ESTIMATED LENGTH OF STAY: 10-12 days. DISPOSITION: Plans back to longterm when stable. KIERSTEN WATT MD DR: SANCHEZ/fredrick JOB#: [id number] / [id number]
--- NOTE | 2020-07-02 23:59 | NUR ---
Patient located in the quiet room on assumption of care. She had completely disrobed and was yelling obscenities loudly. Refused to answer any assessment questions, refused meds, refused offers of snacks or drinks. Pacing back and forth in the west hallway, completely naked, yelling "Hells bells, I am Hell's bells, fuck you fuck you fuck you!" and similar vulgar statements. Staff assist of 4 required to administer patient meds sublingually and put on a brief and onesie. Patient yelling obscenities the entire time. She was found to have several clumps of hair in various places on her body and around where she was sitting. After patient was medicated and dressed, she continued to yell and pace for approximately 2 hours. Walking in and out of the quiet room, opening and closing the door, and sitting on the ledge inside the quiet room kicking her legs. She again used her saliva to style and twist her hair around while staring into the nurses station window. Patient eventually began to slow down and was escorted to the mattress on the quiet room floor. She appears to be sleeping at present time. Will continue to monitor.
--- NOTE | 2020-07-03 08:39 | PDOC ---
Exam Note: Julian Note: This note is a late entry for 07/02/2020 covers elements not covered in my initial note. Subjective: The patient was seen face to face in the evening of 07/02/2020 with Joycelyn MUÑOZ, reviewed the chart. The patient slept 3-1/4 hours previous night. I have been called by the nursing staff as an emergency on couple of occasions earlier today. The patient has had a very difficult day. She has been paranoid, grandiose, loud, disruptive, hyperverbal, yelling, screaming, kicking the pastrana. Review of Systems: No CV, , pulmonary, eye system symptoms on review. Re liability poor. Mental Status Exam: The patient is oriented to herself and situation. Speech coherent, rapid at times. Abstraction is fair. Computation is impaired. Language function intact. Attention span is short. Mood and affect remains grandiose, labile. Laboratory Data: Reviewed. Impression: Bipolar disorder manic with psychotic features. Anxiety disorder unspecified. Impulse control disorder unspecified. Plan: Increase Clozaril to 150 mg p.o. h.s. Check CBC, absolute neutrophil count every week. Start Zyprexa 5 mg q.2h. p.r.n. psychosis and agitation, max 20 mg in 24 hours, Geodon is 40 mg IM daily. Stop the Luvox since it could be worsening her amita. Adjust further as clinically indicated. Assessment: Vital Signs/I&O: Vital Signs Date Time Temp Pulse Resp B/P (MAP) Pulse Ox O2 Delivery O2 Flow Rate FiO2 07/02/20 22:18 97 07/02/20 06:26 97.1 72 16 100/63 (75) 07/01/20 15:22 Room Air I & O 07/02/20 07/02/20 07/03/20 15:00 23:00 07:00 Intake Total 0 ml 80 ml 0 ml Balance 0 ml 80 ml 0 ml Labs: Laboratory Tests Test 07/02/20 09:30 07/02/20 09:40 07/02/20 10:00 White Blood Count 5.5 x10^3/uL (4.0-11.0) Red Blood Count 4.73 x10^6/uL (3.50-5.40) Hemoglobin 13.1 g/dL (12.0-15.5) Hematocrit 40.8 % (36.0-47.0) Mean Corpuscular Volume 86 fL (79-100) Mean Corpuscular Hemoglobin 28 pg (25-35) Mean Corpuscular Hemoglobin Concent 32 g/dL (31-37) Red Cell Distribution Width 16.5 % (11.5-14.5) H Platelet Count 217 x10^3/uL (140-400) Neutrophils (%) (Auto) 43 % (31-73) Lymphocytes (%) (Auto) 35 % (24-48) Monocytes (%) (Auto) 18 % (0-9) H Eosinophils (%) (Auto) 3 % (0-3) Basophils (%) (Auto) 1 % (0-3) Neutrophils # (Auto) 2.4 x10^3uL (1.8-7.7) Lymphocytes # (Auto) 1.9 x10^3/uL (1.0-4.8) Monocytes # (Auto) 1.0 x10^3/uL (0.0-1.1) Eosinophils # (Auto) 0.2 x10^3/uL (0.0-0.7) Basophils # (Auto) 0.0 x10^3/uL (0.0-0.2) Thyroid Stimulating Hormone (TSH) 1.357 uIU/mL (0.358-3.740) Thyroxine (T4) 7.0 ug/dL (4.5-12.0) Total Triiodothyronine (TT3) 95 ng/dL (71-180) Valproic Acid Level 37 mcg/mL (50-100) L Valproic Acid Last Dose Date 07/01/20 Valproic Acid Last Dose Time 2100 Sodium Level 148 mmol/L (136-145) H Potassium Level 4.7 mmol/L (3.5-5.1) Chloride Level 110 mmol/L (98-107) H Carbon Dioxide Level 30 mmol/L (21-32) Anion Gap 8 (6-14) Blood Urea Nitrogen 22 mg/dL (7-20) H Creatinine 1.0 mg/dL (0.6-1.0) Estimated GFR (Cockcroft-Gault) 54.7 BUN/Creatinine Ratio 22 (6-20) H Glucose Level 114 mg/dL (70-99) H Calcium Level 10.2 mg/dL (8.5-10.1) H Magnesium Level 2.1 mg/dL (1.8-2.4) Total Bilirubin 0.3 mg/dL (0.2-1.0) Aspartate Amino Transferase (AST) 24 U/L (15-37) Alanine Aminotransferase (ALT) 21 U/L (14-59) Alkaline Phosphatase 105 U/L (46-116) Total Protein 7.8 g/dL (6.4-8.2) Albumin 3.3 g/dL (3.4-5.0) L Albumin/Globulin Ratio 0.7 (1.0-1.7) L Current Medications: Meds: Laboratory Tests Test 07/02/20 09:30 07/02/20 09:40 07/02/20 10:00 White Blood Count 5.5 x10^3/uL Red Blood Count 4.73 x10^6/uL Hemoglobin 13.1 g/dL Hematocrit 40.8 % Mean Corpuscular Volume 86 fL Mean Corpuscular Hemoglobin 28 pg Mean Corpuscular Hemoglobin Concent 32 g/dL Red Cell Distribution Width 16.5 % Platelet Count 217 x10^3/uL Neutrophils (%) (Auto) 43 % Lymphocytes (%) (Auto) 35 % Monocytes (%) (Auto) 18 % Eosinophils (%) (Auto) 3 % Basophils (%) (Auto) 1 % Neutrophils # (Auto) 2.4 x10^3uL Lymphocytes # (Auto) 1.9 x10^3/uL Monocytes # (Auto) 1.0 x10^3/uL Eosinophils # (Auto) 0.2 x10^3/uL Basophils # (Auto) 0.0 x10^3/uL Thyroid Stimulating Hormone (TSH) 1.357 uIU/mL Thyroxine (T4) 7.0 ug/dL Total Triiodothyronine 95 ng/dL Valproic Acid (Depakene) Level 37 mcg/mL Valproic Acid Last Dose Date 07/01/20 Valproic Acid Last Dose Time 2100 Sodium Level 148 mmol/L Potassium Level 4.7 mmol/L Chloride Level 110 mmol/L Carbon Dioxide Level 30 mmol/L Anion Gap 8 Blood Urea Nitrogen 22 mg/dL Creatinine 1.0 mg/dL Estimated GFR (Cockcroft-Gault) 54.7 BUN/Creatinine Ratio 22 Glucose Level 114 mg/dL Calcium Level 10.2 mg/dL Magnesium Level 2.1 mg/dL Total Bilirubin 0.3 mg/dL Aspartate Amino Transf (AST/SGOT) 24 U/L Alanine Aminotransferase (ALT/SGPT) 21 U/L Alkaline Phosphatase 105 U/L Total Protein 7.8 g/dL Albumin 3.3 g/dL Albumin/Globulin Ratio 0.7 Current Medications Medications (Trade) Dose Ordered Sig/Bora Route PRN Reason Start Time Stop Time Status Last Admin Dose Admin Diclofenac Sodium (Voltaren) 1 barbara PRN QID PRN TP MUSCLE PAIN 07/01/20 15:00 Divalproex Sodium (Depakote Sprinkles) 375 mg BID PO 07/01/20 21:00 07/02/20 20:16 Docusate Sodium (Colace) 100 mg PRN BID PRN PO HARD STOOLS 07/01/20 15:00 Estradiol (Estrace) 1 barbara QMTH VG 07/03/20 16:00 Fluvoxamine Maleate (Luvox) 25 mg HS PO 07/01/20 21:00 07/02/20 09:40 DC 07/01/20 20:22 Furosemide (Lasix) 20 mg DAILY PO 07/02/20 09:00 Levothyroxine Sodium (Synthroid) 50 mcg HS PO 07/01/20 21:00 07/02/20 20:17 Memantine (Namenda) 10 mg BID PO 07/01/20 21:00 07/02/20 20:17 Mirtazapine (Remeron) 7.5 mg QHS PO 07/01/20 21:00 07/02/20 20:19 Olanzapine (ZyPREXA ZYDIS) 5 mg PRN BID PRN PO ANXIETY / AGITATION 07/01/20 15:00 07/02/20 09:40 DC 07/01/20 23:27 Artificial Tears (Refresh Classic) 1 drop PRN TID PRN OU DRY EYE 07/01/20 15:00 Prednisolone Acetate (Pred Forte) 1 drop DAILY OD 07/02/20 09:00 Tramadol HCl (Ultram) 50 mg PRN Q8HRS PRN PO PAIN 07/01/20 15:00 07/02/20 20:22 Trazodone HCl (Desyrel) 100 mg PRN QHS PRN PO INSOMNIA 07/01/20 15:00 07/02/20 20:22 Ziprasidone (Geodon Im) 20 mg PRN BID PRN IM ANXIETY / AGITATION 07/01/20 15:00 07/02/20 10:56 DC 07/01/20 21:53 Guaifenesin/ Codeine Phosphate (Robitussin Ac) 5 ml PRN Q4HRS PRN PO COUGH 07/01/20 17:45 Al Hydroxide/Mg Hydroxide (Mylanta Plus Xs) 15 ml PRN Q2HR PRN PO DYSPEPSIA 07/01/20 17:45 Magnesium Hydroxide (Milk Of Magnesia) 2,400 mg PRN Q4HRS PRN PO CONSTIPATION 07/01/20 17:45 Olanzapine (ZyPREXA ZYDIS) 5 mg PRN Q2HRS PRN PO ANXIETY / AGITATION 07/02/20 09:45 07/02/20 20:20 Clozapine (Clozaril) 150 mg HS PO 07/02/20 21:00 07/02/20 20:18 Ziprasidone (Geodon Im) 40 mg DAILY IM 07/02/20 11:15 07/02/20 11:15 Current Medications Medications (Trade) Dose Ordered Sig/Bora Route PRN Reason Start Time Stop Time Status Last Admin Dose Admin Olanzapine (ZyPREXA ZYDIS) 5 mg PRN Q2HRS PRN PO ANXIETY / AGITATION 07/02/20 09:45 07/02/20 20:20 Clozapine (Clozaril) 150 mg HS PO 07/02/20 21:00 07/02/20 20:18 Ziprasidone (Geodon Im) 40 mg DAILY IM 07/02/20 11:15 07/02/20 11:15 I have reviewed the current psychotropics carefully including drug interactions. Risk benefit ratio favors no change other than as noted in my dictated progress note. Diagnosis: Problems: (1) Bipolar affective, manic, severe w/ psych (2) Anxiety disorder, unspecified (3) Impulse control disorder, unspecified (4) Schizoaffective disorder, bipolar type KIERSTEN WATT MD Jul 03, 2020 08:39
[2020-07-03] MEDS: MEMANTINE 10 MG TABLET. PO SCH ×2 (09:00→21:49)
[2020-07-03] MEDS: FUROSEMIDE 20 MG TABLET PO SCH (09:00)
[2020-07-03] MEDS: ZIPRASIDONE IM 20 MG VIAL. IM SCH (09:00)
[2020-07-03] MEDS: prednisoLONE ACETATE 1% OPHTH SUSPENSION 5ML BOTTLE. OD SCH (09:00)
[2020-07-03] MEDS: DIVALPROEX 125 MG CAP.SPRINK PO SCH ×2 (09:00→21:49)
--- NOTE | 2020-07-03 11:40 | NUR ---
ACTIVITY THERAPY ASSESSMENT completed based on notes, observation and interview. Pt was laying in quiet room with her eyes open. Pt had pulled her arms through the top of her onesie which exposed a small quarter size bruise on her shoulder. Pt was impulsive, agitated and not redirectable during time of assessment. AT introduced herself and pt yelled at AT "I know who you are" in an agitated manner. AT asked if she remembered her and remembered being here and pt yelled "yes". AT asked pt what activities she likes to do, she yelled "none" . Pt yelled out all her answers and some often unrelated to the question being asked. When asked how old she was and what year it was pt yelled "48" and "". Pt said that she does not like activities with her family or friends. AT said "thank you Britni for meeting with me" which pt replied with "veronika Ryder". As AT left room pt said "fucking [employer] Initial goal aimed to increase time management and stress management/relaxation skills. Pt will participate in at least three individual or group Activity Therapy sessions before discharge. Addendum: 07/17/20 at 1315 by JERRY CRUZ ACT Goal changed 07/17/20:Pt will participate in at least five individual or group Activity Therapy sessions before discharge.
--- NOTE | 2020-07-03 12:06 | NUR ---
See downtime med rec for am medication administration.
--- NOTE | 2020-07-03 12:30 | NUR ---
WEEKLY ACTIVITY THERAPY NOTE Date of Admission: 07/01/2020 Date of AT Assessment: 07/03 Precipitating behaviors that initiated intake and admission: hallucinating, grandiose, manic Goal aimed: increase time managment and stress management/relaxation skills Initial Goal: Pt will participate in at least three individual or group Activity Therapy sessions before discharge. Weekly progress towards goal: NA Group participation level: zero Weekly highlights: arrived on unit Behaviors observed: in secured hallway, yelling out Plan: meet/ assess Pt Beneficial adaptations:
[2020-07-03] MEDS ORDERED: ESTRADIOL 0.01% VAGINAL CREAM 42.5GM TUBE. VG SCH (16:00)
--- NOTE | 2020-07-03 16:04 | NUR ---
Pt has been confused, delusional, and verbally/physically combative all during the day. She has been consistently yelling and screaming profanities and slamming the door to the quiet room. She is non-compliant with PO medications, as she spits them out. She has been ripping her own hair out, large pieces of hair is observable all over the quiet room and on pt's clothing. She habitually rubs her face very hard and the skin has become very red. So far this shift she has received 2 PRN Zyprexa 5 mg PO doses, one of which she spit out despite being SL. This nurse contacted to inquire as to the nature of her benzodiazepine allergy and he was not much of a reliable historian regarding pt's medication history. Review of pt's previous [facility] admissions/notes shows that during a stay on 06/13/18 Mara Ricci RN contacted both pt's daughter and who informed RN that pt's benzodiazapine allergy is not anaphylactic in nature, and in response to this information Dr Pinzon prescribed fror pt Ativan 0.5 mg IM daily which pt had no reaction to. This nurse contacted Dr Pinzon and discussed contents of WANDA Terry's note as well as pt's previous Ativan order while at [facility]. Dr Pinzon gave order to start Ativan 0.5 mg IM daily which WANDA Terry administered to pt's L buttocks. Pt tolerated medication well and has had no reaction. Note from 06/13/18 has been printed and attached to pt's chart.
--- NOTE | 2020-07-03 16:16 | NUR ---
Pt has been in a onsie d/t attempting to strip naked, she has found ways to strip out of her onsies. D/t her pulling her own hair out staff has attempted to attack mits to her hands, which she has successfully undone and removed her hands from numerous times
--- NOTE | 2020-07-03 21:07 | PDOC ---
Exam Note: Julian Note: Please also refer to the separate dictated note~for this date of service dictated separately.~Patient seen individually. Discussed the patient with Nursing staff reviewed the chart.~Reviewed interim history and current functioning. Reviewed vital signs,~Labs/ Radiology~and current medications noted below. Continue current treatment with the changes noted in the dictated addendum note Assessment: Vital Signs/I&O: Vital Signs Date Time Temp Pulse Resp B/P (MAP) Pulse Ox O2 Delivery O2 Flow Rate FiO2 07/02/20 22:18 97 07/02/20 06:26 97.1 72 16 100/63 (75) 07/01/20 15:22 Room Air I & O 07/02/20 07/02/20 07/03/20 15:00 23:00 07:00 Intake Total 0 ml 80 ml 0 ml Balance 0 ml 80 ml 0 ml Current Medications: Meds: Current Medications Medications (Trade) Dose Ordered Sig/Bora Route PRN Reason Start Time Stop Time Status Last Admin Dose Admin Diclofenac Sodium (Voltaren) 1 barbara PRN QID PRN TP MUSCLE PAIN 07/01/20 15:00 Divalproex Sodium (Depakote Sprinkles) 375 mg BID PO 07/01/20 21:00 07/02/20 20:16 Docusate Sodium (Colace) 100 mg PRN BID PRN PO HARD STOOLS 07/01/20 15:00 Estradiol (Estrace) 1 barbara QMTH VG 07/03/20 16:00 Fluvoxamine Maleate (Luvox) 25 mg HS PO 07/01/20 21:00 07/02/20 09:40 DC 07/01/20 20:22 Furosemide (Lasix) 20 mg DAILY PO 07/02/20 09:00 Levothyroxine Sodium (Synthroid) 50 mcg HS PO 07/01/20 21:00 07/02/20 20:17 Memantine (Namenda) 10 mg BID PO 07/01/20 21:00 07/02/20 20:17 Mirtazapine (Remeron) 7.5 mg QHS PO 07/01/20 21:00 07/02/20 20:19 Olanzapine (ZyPREXA ZYDIS) 5 mg PRN BID PRN PO ANXIETY / AGITATION 07/01/20 15:00 07/02/20 09:40 DC 07/01/20 23:27 Artificial Tears (Refresh Classic) 1 drop PRN TID PRN OU DRY EYE 07/01/20 15:00 Prednisolone Acetate (Pred Forte) 1 drop DAILY OD 07/02/20 09:00 Tramadol HCl (Ultram) 50 mg PRN Q8HRS PRN PO PAIN 07/01/20 15:00 07/02/20 20:22 Trazodone HCl (Desyrel) 100 mg PRN QHS PRN PO INSOMNIA 07/01/20 15:00 07/02/20 20:22 Ziprasidone (Geodon Im) 20 mg PRN BID PRN IM ANXIETY / AGITATION 07/01/20 15:00 07/02/20 10:56 DC 07/01/20 21:53 Guaifenesin/ Codeine Phosphate (Robitussin Ac) 5 ml PRN Q4HRS PRN PO COUGH 07/01/20 17:45 Al Hydroxide/Mg Hydroxide (Mylanta Plus Xs) 15 ml PRN Q2HR PRN PO DYSPEPSIA 07/01/20 17:45 Magnesium Hydroxide (Milk Of Magnesia) 2,400 mg PRN Q4HRS PRN PO CONSTIPATION 07/01/20 17:45 Olanzapine (ZyPREXA ZYDIS) 5 mg PRN Q2HRS PRN PO ANXIETY / AGITATION 07/02/20 09:45 07/03/20 15:00 Clozapine (Clozaril) 150 mg HS PO 07/02/20 21:00 07/02/20 20:18 Ziprasidone (Geodon Im) 40 mg DAILY IM 07/02/20 11:15 07/02/20 11:15 Lorazepam (Ativan Inj) 0.5 mg DAILY IM 07/03/20 14:30 07/03/20 19:35 DC 07/03/20 15:05 Lorazepam (Ativan Inj) 0.5 mg BID IM 07/03/20 21:00 Current Medications Medications (Trade) Dose Ordered Sig/Bora Route PRN Reason Start Time Stop Time Status Last Admin Dose Admin Lorazepam (Ativan Inj) 0.5 mg DAILY IM 07/03/20 14:30 07/03/20 19:35 DC 07/03/20 15:05 I have reviewed the current psychotropics carefully including drug interactions. Risk benefit ratio favors no change other than as noted in my dictated progress note. Diagnosis: Problems: (1) Bipolar affective, manic, severe w/ psych (2) Anxiety disorder, unspecified (3) Impulse control disorder, unspecified KIERSTEN WATT MD Jul 03, 2020 21:07
[2020-07-03] MEDS: MIRTAZAPINE 7.5 MG TABLET. PO SCH (21:48)
[2020-07-03] MEDS: LEVOTHYROXINE 50 MCG TABLET PO SCH (21:49)
[2020-07-03] MEDS: cloZAPine 100 MG TABLET PO SCH (21:49)
--- NOTE | 2020-07-03 22:56 | NUR ---
Patient was in quiet room in [facility] at shift change. She was naked, crawling on the floor while yelling and growling. Patient had been yelling constantly since shift change and she urinated on the floor multiple times (while announcing that she was urinating). It was noted that there are clumps of hair on the floor and in the quiet room, day nurse reported that patient had been pulling her own hair out. HS meds given hidden in drink as patient was yelling that she was thirsty. Patient compliant with meds. Patient was provided a snack and gatorade. After scheduled HS IM ativan was given, she began to calm down, was assisted into a clean brief and onesie, and was given warm blankets. Patient was assisted to lay down on mats. Patient is sleeping at this time. Patient stated she "cannot poop" and was given MOM, which she asked for and drank in grape juice.
[2020-07-04 06:01] VITALS: BP 125/69
[2020-07-04] MEDS: ZIPRASIDONE IM 20 MG VIAL. IM SCH (09:00)
[2020-07-04] MEDS: DIVALPROEX 125 MG CAP.SPRINK PO SCH ×2 (09:00→19:16)
[2020-07-04] MEDS: prednisoLONE ACETATE 1% OPHTH SUSPENSION 5ML BOTTLE. OD SCH (09:00)
[2020-07-04] MEDS: MEMANTINE 10 MG TABLET. PO SCH ×2 (09:00→19:14)
[2020-07-04] MEDS: FUROSEMIDE 20 MG TABLET PO SCH (09:00)
[2020-07-04 16:22] VITALS: BP 118/76
--- NOTE | 2020-07-04 16:47 | NUR ---
Pt has been in a deep sleep in the quiet room for the entirety of the day. Breathing even and unlabored, she wakes briefly only to fall back asleep. Morning medications held, unable to complete a full assessment. Dr Pinzon notified, orders received. Will pass on to the next shift.
[2020-07-04] MEDS: MIRTAZAPINE 7.5 MG TABLET. PO SCH (19:15)
[2020-07-04] MEDS: cloZAPine 100 MG TABLET PO SCH (19:15)
[2020-07-04] MEDS: LEVOTHYROXINE 50 MCG TABLET PO SCH (19:16)
--- NOTE | 2020-07-04 19:23 | NUR ---
Patient is constantly screaming uncontrollably in quiet room. This nurse is not able to understand what patient is saying. PRN zydis administered with HS meds for agitation/psychosis.
--- NOTE | 2020-07-04 19:43 | NUR ---
Patient refused the meds in boost, stating she wanted a "smoothy, a frosty". Nurse added icecream to the boost and made it a shake, she then refused it, yelling and saying "hair, i need hair, no, it has hair". After that she kicked at nurse and said "green, it's green, I wanted green". Patient is awake and screaming, she is in the quiet room with the door open but she is still disturbing other patients. Addendum: 07/04/20 at 2359 by NASREEN MONROE RN Patient drank the shake with the HS meds and OCHOA hogan in it at 2100. She did not calm down, she continued to yell..
--- NOTE | 2020-07-04 21:27 | PDOC ---
Exam Note: Julian Note: This note is a late entry for 07/03/2020 covers elements not covered in my initial note. Subjective: The patient was seen face to face in the morning of 07/03/2020 for a treatment team meeting with Chiara Lerner, Leia Baez and Barbi (psychiatric social worker), Yasmin Guererro, activity therapy and Bonnie MUÑOZ, discussed and reviewed the chart. The patient slept 1-1/2 hours previous night. She has been extremely manic, grandiose, sexually inappropriate, coming out undressed even though she is placed in an onesie. She has been pulling her hair out of her head, difficult to redirect. I had been called by the nursing staff on 2 to 3 occasions since she is not reactive to current psychotropics specifically orally and is spitting everything out. She has a noted allergy for Ativan but nursing staff went through her past records in detail. In fact she received IM Ativan when here with us in the past on the unit and no reaction was noted. We will restart Ativan 0.5 mg IM daily to help with anxiety since oral meds have been ineffective. Review of Systems: No CV, , pulmonary, eye system symptoms on review. Reliability poor. Mental Status Exam: The patient is oriented to herself and situation. She has been anxious, restless, somewhat grandiose, feeling she has been cleaning 3 rooms. Speech coherent, rapid at times. Abstraction is fair. Computation is impaired. Language function intact. Attention span is short. Mood and affect labile. Laboratory Data: Reviewed. Impression: Bipolar disorder manic with psychotic features. Anxiety disorder unspecified. Impulse control disorder unspecified. Plan: No change from initial note. Her absolute neutrophil count is within normal limits and we have just increased the Clozaril to 150 mg h.s. We will increase in due course. Maintain IM Geodon 40 mg daily, Ativan 0.5 mg IM daily. May increase to 0.5 mg b.i.d. Rest unchanged for now but she is non-compliant with the oral medications. Valproic acid level is unreliable due to her non compliance with oral Depakote. Assessment: Vital Signs/I&O: Vital Signs Date Time Temp Pulse Resp B/P (MAP) Pulse Ox O2 Delivery O2 Flow Rate FiO2 07/04/20 16:22 98.9 90 16 118/76 (90) 96 07/04/20 06:01 Room Air I & O 07/03/20 07/03/20 07/04/20 15:00 23:00 07:00 Intake Total 120 ml 900 ml 120 ml Balance 120 ml 900 ml 120 ml Current Medications: Meds: Current Medications Medications (Trade) Dose Ordered Sig/Bora Route PRN Reason Start Time Stop Time Status Last Admin Dose Admin Diclofenac Sodium (Voltaren) 1 barbara PRN QID PRN TP MUSCLE PAIN 07/01/20 15:00 Divalproex Sodium (Depakote Sprinkles) 375 mg BID PO 07/01/20 21:00 07/04/20 19:16 Docusate Sodium (Colace) 100 mg PRN BID PRN PO HARD STOOLS 07/01/20 15:00 07/04/20 19:14 Estradiol (Estrace) 1 barbara QMTH VG 07/03/20 16:00 Fluvoxamine Maleate (Luvox) 25 mg HS PO 07/01/20 21:00 07/02/20 09:40 DC 07/01/20 20:22 Furosemide (Lasix) 20 mg DAILY PO 07/02/20 09:00 Levothyroxine Sodium (Synthroid) 50 mcg HS PO 07/01/20 21:00 07/04/20 19:16 Memantine (Namenda) 10 mg BID PO 07/01/20 21:00 07/04/20 19:14 Mirtazapine (Remeron) 7.5 mg QHS PO 07/01/20 21:00 07/04/20 19:15 Olanzapine (ZyPREXA ZYDIS) 5 mg PRN BID PRN PO ANXIETY / AGITATION 07/01/20 15:00 07/02/20 09:40 DC 07/01/20 23:27 Artificial Tears (Refresh Classic) 1 drop PRN TID PRN OU DRY EYE 07/01/20 15:00 Prednisolone Acetate (Pred Forte) 1 drop DAILY OD 07/02/20 09:00 Tramadol HCl (Ultram) 50 mg PRN Q8HRS PRN PO PAIN 07/01/20 15:00 07/02/20 20:22 Trazodone HCl (Desyrel) 100 mg PRN QHS PRN PO INSOMNIA 07/01/20 15:00 07/02/20 20:22 Ziprasidone (Geodon Im) 20 mg PRN BID PRN IM ANXIETY / AGITATION 07/01/20 15:00 07/02/20 10:56 DC 07/01/20 21:53 Guaifenesin/ Codeine Phosphate (Robitussin Ac) 5 ml PRN Q4HRS PRN PO COUGH 07/01/20 17:45 Al Hydroxide/Mg Hydroxide (Mylanta Plus Xs) 15 ml PRN Q2HR PRN PO DYSPEPSIA 07/01/20 17:45 Magnesium Hydroxide (Milk Of Magnesia) 2,400 mg PRN Q4HRS PRN PO CONSTIPATION 07/01/20 17:45 07/03/20 22:04 Olanzapine (ZyPREXA ZYDIS) 5 mg PRN Q2HRS PRN PO ANXIETY / AGITATION 07/02/20 09:45 07/04/20 19:22 Clozapine (Clozaril) 150 mg HS PO 07/02/20 21:00 07/04/20 19:15 Ziprasidone (Geodon Im) 40 mg DAILY IM 07/02/20 11:15 07/04/20 17:18 DC 07/02/20 11:15 Lorazepam (Ativan Inj) 0.5 mg DAILY IM 07/03/20 14:30 07/03/20 19:35 DC 07/03/20 15:05 Lorazepam (Ativan Inj) 0.5 mg BID IM 07/03/20 21:00 07/04/20 17:18 DC 07/03/20 22:04 I have reviewed the current psychotropics carefully including drug interactions. Risk benefit ratio favors no change other than as noted in my dictated progress note. Diagnosis: Problems: (1) Bipolar 1 disorder, manic, moderate (2) Impulse control disorder, unspecified (3) Anxiety disorder, unspecified (4) Schizoaffective disorder, bipolar type KIERSTEN WATT MD Jul 04, 2020 21:27
--- NOTE | 2020-07-04 21:27 | PDOC ---
Exam Note: Julian Note: Please also refer to the separate dictated note~for this date of service dictated separately.~Patient seen individually. Discussed the patient with Nursing staff reviewed the chart.~Reviewed interim history and current functioning. Reviewed vital signs,~Labs/ Radiology~and current medications noted below. Continue current treatment with the changes noted in the dictated addendum note Assessment: Vital Signs/I&O: Vital Signs Date Time Temp Pulse Resp B/P (MAP) Pulse Ox O2 Delivery O2 Flow Rate FiO2 07/04/20 16:22 98.9 90 16 118/76 (90) 96 07/04/20 06:01 Room Air I & O 07/03/20 07/03/20 07/04/20 15:00 23:00 07:00 Intake Total 120 ml 900 ml 120 ml Balance 120 ml 900 ml 120 ml Current Medications: Meds: Current Medications Medications (Trade) Dose Ordered Sig/Bora Route PRN Reason Start Time Stop Time Status Last Admin Dose Admin Diclofenac Sodium (Voltaren) 1 barbara PRN QID PRN TP MUSCLE PAIN 07/01/20 15:00 Divalproex Sodium (Depakote Sprinkles) 375 mg BID PO 07/01/20 21:00 07/04/20 19:16 Docusate Sodium (Colace) 100 mg PRN BID PRN PO HARD STOOLS 07/01/20 15:00 07/04/20 19:14 Estradiol (Estrace) 1 barbara QMTH VG 07/03/20 16:00 Fluvoxamine Maleate (Luvox) 25 mg HS PO 07/01/20 21:00 07/02/20 09:40 DC 07/01/20 20:22 Furosemide (Lasix) 20 mg DAILY PO 07/02/20 09:00 Levothyroxine Sodium (Synthroid) 50 mcg HS PO 07/01/20 21:00 07/04/20 19:16 Memantine (Namenda) 10 mg BID PO 07/01/20 21:00 07/04/20 19:14 Mirtazapine (Remeron) 7.5 mg QHS PO 07/01/20 21:00 07/04/20 19:15 Olanzapine (ZyPREXA ZYDIS) 5 mg PRN BID PRN PO ANXIETY / AGITATION 07/01/20 15:00 07/02/20 09:40 DC 07/01/20 23:27 Artificial Tears (Refresh Classic) 1 drop PRN TID PRN OU DRY EYE 07/01/20 15:00 Prednisolone Acetate (Pred Forte) 1 drop DAILY OD 07/02/20 09:00 Tramadol HCl (Ultram) 50 mg PRN Q8HRS PRN PO PAIN 07/01/20 15:00 07/02/20 20:22 Trazodone HCl (Desyrel) 100 mg PRN QHS PRN PO INSOMNIA 07/01/20 15:00 07/02/20 20:22 Ziprasidone (Geodon Im) 20 mg PRN BID PRN IM ANXIETY / AGITATION 07/01/20 15:00 07/02/20 10:56 DC 07/01/20 21:53 Guaifenesin/ Codeine Phosphate (Robitussin Ac) 5 ml PRN Q4HRS PRN PO COUGH 07/01/20 17:45 Al Hydroxide/Mg Hydroxide (Mylanta Plus Xs) 15 ml PRN Q2HR PRN PO DYSPEPSIA 07/01/20 17:45 Magnesium Hydroxide (Milk Of Magnesia) 2,400 mg PRN Q4HRS PRN PO CONSTIPATION 07/01/20 17:45 07/03/20 22:04 Olanzapine (ZyPREXA ZYDIS) 5 mg PRN Q2HRS PRN PO ANXIETY / AGITATION 07/02/20 09:45 07/04/20 19:22 Clozapine (Clozaril) 150 mg HS PO 07/02/20 21:00 07/04/20 19:15 Ziprasidone (Geodon Im) 40 mg DAILY IM 07/02/20 11:15 07/04/20 17:18 DC 07/02/20 11:15 Lorazepam (Ativan Inj) 0.5 mg DAILY IM 07/03/20 14:30 07/03/20 19:35 DC 07/03/20 15:05 Lorazepam (Ativan Inj) 0.5 mg BID IM 07/03/20 21:00 07/04/20 17:18 DC 07/03/20 22:04 I have reviewed the current psychotropics carefully including drug interactions. Risk benefit ratio favors no change other than as noted in my dictated progress note. Diagnosis: Problems: (1) Schizoaffective disorder, bipolar type (2) Impulse control disorder, unspecified (3) Anxiety disorder, unspecified (4) Bipolar affective, manic, severe w/ psych KIERSTEN WATT MD Jul 04, 2020 21:27
--- NOTE | 2020-07-04 22:00 | NUR ---
Patient continues to yell and scream. She is laying down in the quiet room on the mats for safety. PRN zyprexa given at 2200 sublingually as patient refused to take it as a pill.
--- NOTE | 2020-07-05 00:17 | NUR ---
Patient is yelling and screaming out intermittently, having 10-15 minutes of quiet between outbursts. At times it sounds as if she is yelling AT someone. This nurse is unable to elicit whether or not patiient is having visual or auditory hallucinations as patient is unable to answer the question.
[2020-07-05 05:51] VITALS: BP 129/86
--- NOTE | 2020-07-05 06:21 | NUR ---
Patient got 2.75 hours of sleep last night. She is continuing to yell and have arguments in the quiet room by herself. She yelled "no" , "game" and "fertilize it" several times, but most of what she says does not make sense.
--- NOTE | 2020-07-05 07:46 | PDOC ---
Exam Note: Julian Note: This note is a late entry for 07/04/2020 covers elements not covered in my initial note. Subjective: The patient was seen face to face in the evening of 07/04/2020 with Bonnie MUÑOZ, discussed and reviewed the chart. The patient slept 6-1/4 hours previous night. She has had a very difficult day. I had been called by the nursing staff during the day. She was sedated earlier and her medications were held and we went ahead and stopped her scheduled IM Geodon and Ativan. However, by this evening, she was yelling, screaming, psychotic, agitated, labile in her mood, refusing all psychotropics. We will have to see how she does because she does not seem to respond to oral psychotropics. We may have to reinitiate Geodon IM and Ativan IM. Review of Systems: No CV, , pulmonary, eye system symptoms on review. Mental Status Exam: The patient is oriented to herself. As I met with her she was verbally using profanities against me and using all kinds of rather derogatory words. Insight, judgment and recent memory is impaired. Language function intact. Attention span is short. Mood and affect labile. Laboratory Data: Reviewed. Impression: Schizoaffective disorder bipolar type, manic with psychotic features. Anxiety disorder unspecified. Impulse control disorder unspecified. Plan: No change from initial note. Consider restarting IM Geodon and Ativan. Assessment: Vital Signs/I&O: Vital Signs Date Time Temp Pulse Resp B/P (MAP) Pulse Ox O2 Delivery O2 Flow Rate FiO2 07/05/20 05:51 97.3 106 22 129/86 (100) 93 07/04/20 06:01 Room Air I & O 07/04/20 07/04/20 07/05/20 15:00 23:00 07:00 Intake Total 0 ml 120 ml Balance 0 ml 120 ml Current Medications: Meds: Current Medications Medications (Trade) Dose Ordered Sig/Bora Route PRN Reason Start Time Stop Time Status Last Admin Dose Admin Diclofenac Sodium (Voltaren) 1 barbara PRN QID PRN TP MUSCLE PAIN 07/01/20 15:00 Divalproex Sodium (Depakote Sprinkles) 375 mg BID PO 07/01/20 21:00 07/04/20 19:16 Docusate Sodium (Colace) 100 mg PRN BID PRN PO HARD STOOLS 07/01/20 15:00 07/04/20 19:14 Estradiol (Estrace) 1 barbara QMTH VG 07/03/20 16:00 Fluvoxamine Maleate (Luvox) 25 mg HS PO 07/01/20 21:00 07/02/20 09:40 DC 07/01/20 20:22 Furosemide (Lasix) 20 mg DAILY PO 07/02/20 09:00 Levothyroxine Sodium (Synthroid) 50 mcg HS PO 07/01/20 21:00 07/04/20 19:16 Memantine (Namenda) 10 mg BID PO 07/01/20 21:00 07/04/20 19:14 Mirtazapine (Remeron) 7.5 mg QHS PO 07/01/20 21:00 07/04/20 19:15 Olanzapine (ZyPREXA ZYDIS) 5 mg PRN BID PRN PO ANXIETY / AGITATION 07/01/20 15:00 07/02/20 09:40 DC 07/01/20 23:27 Artificial Tears (Refresh Classic) 1 drop PRN TID PRN OU DRY EYE 07/01/20 15:00 Prednisolone Acetate (Pred Forte) 1 drop DAILY OD 07/02/20 09:00 Tramadol HCl (Ultram) 50 mg PRN Q8HRS PRN PO PAIN 07/01/20 15:00 07/02/20 20:22 Trazodone HCl (Desyrel) 100 mg PRN QHS PRN PO INSOMNIA 07/01/20 15:00 07/02/20 20:22 Ziprasidone (Geodon Im) 20 mg PRN BID PRN IM ANXIETY / AGITATION 07/01/20 15:00 07/02/20 10:56 DC 07/01/20 21:53 Guaifenesin/ Codeine Phosphate (Robitussin Ac) 5 ml PRN Q4HRS PRN PO COUGH 07/01/20 17:45 Al Hydroxide/Mg Hydroxide (Mylanta Plus Xs) 15 ml PRN Q2HR PRN PO DYSPEPSIA 07/01/20 17:45 Magnesium Hydroxide (Milk Of Magnesia) 2,400 mg PRN Q4HRS PRN PO CONSTIPATION 07/01/20 17:45 07/03/20 22:04 Olanzapine (ZyPREXA ZYDIS) 5 mg PRN Q2HRS PRN PO ANXIETY / AGITATION 07/02/20 09:45 07/04/20 21:55 Clozapine (Clozaril) 150 mg HS PO 07/02/20 21:00 07/04/20 19:15 Ziprasidone (Geodon Im) 40 mg DAILY IM 07/02/20 11:15 07/04/20 17:18 DC 07/02/20 11:15 Lorazepam (Ativan Inj) 0.5 mg DAILY IM 07/03/20 14:30 07/03/20 19:35 DC 07/03/20 15:05 Lorazepam (Ativan Inj) 0.5 mg BID IM 07/03/20 21:00 07/04/20 17:18 DC 07/03/20 22:04 I have reviewed the current psychotropics carefully including drug interactions. Risk benefit ratio favors no change other than as noted in my dictated progress note. Diagnosis: Problems: (1) Schizoaffective disorder, bipolar type (2) Bipolar affective, manic, severe w/ psych (3) Impulse control disorder, unspecified (4) Anxiety disorder, unspecified KIERSTEN WATT MD Jul 05, 2020 07:46
[2020-07-05] MEDS: prednisoLONE ACETATE 1% OPHTH SUSPENSION 5ML BOTTLE. OD SCH (09:00)
[2020-07-05] MEDS: DIVALPROEX 125 MG CAP.SPRINK PO SCH ×2 (10:21→20:42)
[2020-07-05] MEDS: MEMANTINE 10 MG TABLET. PO SCH ×2 (10:21→20:42)
[2020-07-05] MEDS: FUROSEMIDE 20 MG TABLET PO SCH (10:22)
--- NOTE | 2020-07-05 11:44 | NUR ---
Pt has been yelling and screaming intermittently during the day. It is hard to understand what she is yelling about, often it is inarticulate words and sounds. At times she sounds as if she is yelling/conversing with someone/something else, but she is unable to articulate or describe much of what she is experiencing. There has been a few occasions where her yelling takes different octaves/pitches as if she is mimicking someone else while yelling. She has spent most of the day in the quiet room, often laying on the mattress and attempting to take her onsie off. She was compliant with PO medications which were crushed and mixed into chocolate milk. She has a shower today, which took multiple staff to assist with the process. Will pass on to the next shift.
--- NOTE | 2020-07-05 12:34 | NUR ---
Attempts at administration of Prednisolone gtts to eyes unsuccessful. Administration attempt required 2 staff members to hold pt's hands/arms to prevent her from interfering with application, and this nurse held pt's head steady for accuracy of application. With these interventions application was unsuccessful; pt remained combative, squeezed her eyes shut, and began to grind her teeth very loudly which could be heard by all who were present. Prednisolone eye gtts have been documented as a non-admin in pt's MAR d/t unsuccessful attempt at administration.
--- NOTE | 2020-07-05 13:18 | NUR ---
Pt has frequently been violently grinding her teeth. It's a very loud sound that can be heard from outside of her room. Staff is unable to assess teeth to see if damage has been done thus far. When pt began to yell for food yogurt and a plastic spoon was provided. This nurse sat by to observe pt's eating capabilities. Pt began to violently chew and grind her teeth on the plastic spoon, so much so that the spoon became out of shape before this nurse could obtain it to dispose of it. In response to this set of behaviors her diet has been modified to finger foods, no silverware, soft/chewable foods.
--- NOTE | 2020-07-05 13:30 | NUR ---
Pt has been yelling and screaming in the quiet hallway. She is unable to articulate coherent words or sentences. She has also been violently grinding her teeth, creating a disturbing creaking sound which can be heard from the nurse station. PRN Zyprexa 5 mg administered SL, pt spit the medication out.
--- NOTE | 2020-07-05 14:45 | NUR ---
Attempted to provide water to pt in styrofoam cup with a straw. Pt crushed the cup in her hands, dumped the water all over the floor, and began to violently bite and tear apart the straw with her teeth. A second attempt to provide water to pt was performed with a plastic cup with no straw. Pt squeezed the cup with her hands and began to violently bite and attempt to chew apart the cup with her teeth, cracking the plastic in her process. She then threw the water all over the floor.
[2020-07-05 16:54] VITALS: BP 165/84
[2020-07-05] MEDS: MIRTAZAPINE 7.5 MG TABLET. PO SCH (20:42)
[2020-07-05] MEDS: LEVOTHYROXINE 50 MCG TABLET PO SCH (20:42)
[2020-07-05] MEDS: cloZAPine 100 MG TABLET PO SCH (20:42)
[2020-07-05] MEDS: traZODone 100 MG TABLET. PO PRN (20:48)
--- NOTE | 2020-07-05 21:09 | PDOC ---
Exam Note: Julian Note: Please also refer to the separate dictated note~for this date of service dictated separately.~Patient seen individually. Discussed the patient with Nursing staff reviewed the chart.~Reviewed interim history and current functioning. Reviewed vital signs,~Labs/ Radiology~and current medications noted below. Continue current treatment with the changes noted in the dictated addendum note Assessment: Vital Signs/I&O: Vital Signs Date Time Temp Pulse Resp B/P (MAP) Pulse Ox O2 Delivery O2 Flow Rate FiO2 07/05/20 16:54 97.5 66 22 165/84 (111) 97 07/04/20 06:01 Room Air I & O 07/04/20 07/04/20 07/05/20 15:00 23:00 07:00 Intake Total 0 ml 120 ml Balance 0 ml 120 ml Current Medications: Meds: Current Medications Medications (Trade) Dose Ordered Sig/Bora Route PRN Reason Start Time Stop Time Status Last Admin Dose Admin Diclofenac Sodium (Voltaren) 1 barbara PRN QID PRN TP MUSCLE PAIN 07/01/20 15:00 Divalproex Sodium (Depakote Sprinkles) 375 mg BID PO 07/01/20 21:00 07/05/20 20:42 Docusate Sodium (Colace) 100 mg PRN BID PRN PO HARD STOOLS 07/01/20 15:00 07/04/20 19:14 Estradiol (Estrace) 1 barbara QMTH VG 07/03/20 16:00 Fluvoxamine Maleate (Luvox) 25 mg HS PO 07/01/20 21:00 07/02/20 09:40 DC 07/01/20 20:22 Furosemide (Lasix) 20 mg DAILY PO 07/02/20 09:00 07/05/20 10:22 Levothyroxine Sodium (Synthroid) 50 mcg HS PO 07/01/20 21:00 07/05/20 20:42 Memantine (Namenda) 10 mg BID PO 07/01/20 21:00 07/05/20 20:42 Mirtazapine (Remeron) 7.5 mg QHS PO 07/01/20 21:00 07/05/20 20:42 Olanzapine (ZyPREXA ZYDIS) 5 mg PRN BID PRN PO ANXIETY / AGITATION 07/01/20 15:00 07/02/20 09:40 DC 07/01/20 23:27 Artificial Tears (Refresh Classic) 1 drop PRN TID PRN OU DRY EYE 07/01/20 15:00 Prednisolone Acetate (Pred Forte) 1 drop DAILY OD 07/02/20 09:00 Tramadol HCl (Ultram) 50 mg PRN Q8HRS PRN PO PAIN 07/01/20 15:00 07/02/20 20:22 Trazodone HCl (Desyrel) 100 mg PRN QHS PRN PO INSOMNIA 07/01/20 15:00 07/05/20 20:48 Ziprasidone (Geodon Im) 20 mg PRN BID PRN IM ANXIETY / AGITATION 07/01/20 15:00 07/02/20 10:56 DC 07/01/20 21:53 Guaifenesin/ Codeine Phosphate (Robitussin Ac) 5 ml PRN Q4HRS PRN PO COUGH 07/01/20 17:45 Al Hydroxide/Mg Hydroxide (Mylanta Plus Xs) 15 ml PRN Q2HR PRN PO DYSPEPSIA 07/01/20 17:45 Magnesium Hydroxide (Milk Of Magnesia) 2,400 mg PRN Q4HRS PRN PO CONSTIPATION 07/01/20 17:45 07/03/20 22:04 Olanzapine (ZyPREXA ZYDIS) 5 mg PRN Q2HRS PRN PO ANXIETY / AGITATION 07/02/20 09:45 07/05/20 13:30 Clozapine (Clozaril) 150 mg HS PO 07/02/20 21:00 07/05/20 20:42 Ziprasidone (Geodon Im) 40 mg DAILY IM 07/02/20 11:15 07/04/20 17:18 DC 07/02/20 11:15 Lorazepam (Ativan Inj) 0.5 mg DAILY IM 07/03/20 14:30 07/03/20 19:35 DC 07/03/20 15:05 Lorazepam (Ativan Inj) 0.5 mg BID IM 07/03/20 21:00 07/04/20 17:18 DC 07/03/20 22:04 Lorazepam (Ativan Inj) 1 mg 1X ONCE IM 07/05/20 18:45 07/05/20 18:46 DC 07/05/20 20:46 Lorazepam (Ativan Inj) 1 mg DAILY IM 07/06/20 09:00 Current Medications Medications (Trade) Dose Ordered Sig/Bora Route PRN Reason Start Time Stop Time Status Last Admin Dose Admin Lorazepam (Ativan Inj) 1 mg 1X ONCE IM 07/05/20 18:45 07/05/20 18:46 DC 07/05/20 20:46 I have reviewed the current psychotropics carefully including drug interactions. Risk benefit ratio favors no change other than as noted in my dictated progress note. Diagnosis: Problems: (1) Impulse control disorder, unspecified (2) Anxiety disorder, unspecified (3) Schizoaffective disorder, bipolar type (4) Bipolar affective, manic, severe w/ psych KIERSTEN WATT MD Jul 05, 2020 21:09
[2020-07-05] MEDS: PSYLLIUM SEED (WITH SUGAR) PACKET. PO SCH (21:30)
--- NOTE | 2020-07-05 22:55 | NUR ---
Nursing Note Pt communicating to me this pm. Tells me she is cold, wants metamucil, states she ready to go to her own bed this pm. Cooperative with meds and assessments. Skin is red, with random scratches. Seems to be fairly alert at this time. States her day was horrible but it wasn't her fault, that she was "good". Held ativan injection for now since patient compliant with meds took trazodone this pm.
[2020-07-05 23:26] LABS: BACTERIA,URINE 0 /HPF (0-FEW); BILIRUBIN,URINE NEG (NEG); CLARITY,URINE CLEAR; COLOR,URINE YELLOW; GLUCOSE,URINE NEG (NEG); NITRITE,URINE NEG (NEG); RBC,URINE 0 /HPF (0-2); SQUAMOUS EPITHELIAL CELL,UR OCC /LPF; UROBILINOGEN,URINE 0.2 mg/dL (0.2 mg/dL)
[2020-07-06 06:16] VITALS: BP 110/59
--- NOTE | 2020-07-06 08:07 | PDOC ---
Exam Note: Julian Note: This note is a late entry for 07/05/2020 covers elements not covered in my initial note. Subjective: The patient was seen face to face in the evening of 07/05/2020 with Bonnie MUÑOZ, discussed and reviewed the chart. The patient slept 2-3/4 hours previous night. She has been extremely labile in her mood, yelling, screaming, paranoid, psychotic, grandiose. She has been chewing on plastic silverware and plastic cups amongst other things. We will change her diet to soft diet. She has been on the [facility] which is where I met with her. Review of Systems: No CV, , pulmonary, eye, ENT system symptoms on review. Reliability poor. Mental Status Exam: The patient is oriented to herself and situation. Speech is coherent, rapid, loud at times. Abstraction is fair. Computation is impaired. Language function is intact. Attention span is short. Mood and affect labile. Laboratory Data: Reviewed. Impression: Schizoaffective disorder bipolar type, manic with psychotic features. Anxiety disorder unspecified. Impulse control disorder unspecified. Plan: No change from initial note. We will restart Ativan 1 mg IM daily since oral psychotropics have been ineffective. We will gradually increase the Clozaril. Maintain Depakote at current dosage. Encourage compliance. Follow labs level. Adjust as clinically indicated. Assessment: Vital Signs/I&O: Vital Signs Date Time Temp Pulse Resp B/P (MAP) Pulse Ox O2 Delivery O2 Flow Rate FiO2 07/06/20 06:16 97.9 115 16 110/59 (76) 93 07/04/20 06:01 Room Air I & O 07/05/20 07/05/20 07/06/20 15:00 23:00 07:00 Intake Total 360 ml Balance 360 ml Labs: Laboratory Tests Test 07/05/20 22:00 Urine Collection Type Void Urine Color Yellow Urine Clarity Clear Urine pH 8.5 Urine Specific [place] 1.020 Urine Protein Trace (NEG-TRACE) Urine Glucose (UA) Neg mg/dL (NEG) Urine Ketones (Stick) 15 mg/dL (NEG) Urine Blood Neg (NEG) Urine Nitrite Neg (NEG) Urine Bilirubin Neg (NEG) Urine Urobilinogen Dipstick 0.2 mg/dL (0.2 mg/dL) Urine Leukocyte Esterase Neg (NEG) Urine RBC 0 /HPF (0-2) Urine WBC 1-4 /HPF (0-4) Urine Squamous Epithelial Cells Occ /LPF Urine Bacteria 0 /HPF (0-FEW) Current Medications: Meds: Laboratory Tests Test 07/05/20 22:00 Urine Collection Type Void Urine Color Yellow Urine Clarity Clear Urine pH 8.5 Urine Specific [place] 1.020 Urine Protein Trace Urine Glucose (UA) Neg mg/dL Urine Ketones (Stick) 15 mg/dL Urine Blood Neg Urine Nitrite Neg Urine Bilirubin Neg Urine Urobilinogen Dipstick 0.2 mg/dL Urine Leukocyte Esterase Neg Urine RBC 0 /HPF Urine WBC 1-4 /HPF Urine Squamous Epithelial Cells Occ /LPF Urine Bacteria 0 /HPF Current Medications Medications (Trade) Dose Ordered Sig/Bora Route PRN Reason Start Time Stop Time Status Last Admin Dose Admin Diclofenac Sodium (Voltaren) 1 barbara PRN QID PRN TP MUSCLE PAIN 07/01/20 15:00 Divalproex Sodium (Depakote Sprinkles) 375 mg BID PO 07/01/20 21:00 07/05/20 20:42 Docusate Sodium (Colace) 100 mg PRN BID PRN PO HARD STOOLS 07/01/20 15:00 07/04/20 19:14 Estradiol (Estrace) 1 barbara QMTH VG 07/03/20 16:00 Fluvoxamine Maleate (Luvox) 25 mg HS PO 07/01/20 21:00 07/02/20 09:40 DC 07/01/20 20:22 Furosemide (Lasix) 20 mg DAILY PO 07/02/20 09:00 07/05/20 10:22 Levothyroxine Sodium (Synthroid) 50 mcg HS PO 07/01/20 21:00 07/05/20 20:42 Memantine (Namenda) 10 mg BID PO 07/01/20 21:00 07/05/20 20:42 Mirtazapine (Remeron) 7.5 mg QHS PO 07/01/20 21:00 07/05/20 20:42 Olanzapine (ZyPREXA ZYDIS) 5 mg PRN BID PRN PO ANXIETY / AGITATION 07/01/20 15:00 07/02/20 09:40 DC 07/01/20 23:27 Artificial Tears (Refresh Classic) 1 drop PRN TID PRN OU DRY EYE 07/01/20 15:00 Prednisolone Acetate (Pred Forte) 1 drop DAILY OD 07/02/20 09:00 Tramadol HCl (Ultram) 50 mg PRN Q8HRS PRN PO PAIN 07/01/20 15:00 07/02/20 20:22 Trazodone HCl (Desyrel) 100 mg PRN QHS PRN PO INSOMNIA 07/01/20 15:00 07/05/20 20:48 Ziprasidone (Geodon Im) 20 mg PRN BID PRN IM ANXIETY / AGITATION 07/01/20 15:00 07/02/20 10:56 DC 07/01/20 21:53 Guaifenesin/ Codeine Phosphate (Robitussin Ac) 5 ml PRN Q4HRS PRN PO COUGH 07/01/20 17:45 Al Hydroxide/Mg Hydroxide (Mylanta Plus Xs) 15 ml PRN Q2HR PRN PO DYSPEPSIA 07/01/20 17:45 Magnesium Hydroxide (Milk Of Magnesia) 2,400 mg PRN Q4HRS PRN PO CONSTIPATION 07/01/20 17:45 07/03/20 22:04 Olanzapine (ZyPREXA ZYDIS) 5 mg PRN Q2HRS PRN PO ANXIETY / AGITATION 07/02/20 09:45 07/05/20 13:30 Clozapine (Clozaril) 150 mg HS PO 07/02/20 21:00 07/05/20 20:42 Ziprasidone (Geodon Im) 40 mg DAILY IM 07/02/20 11:15 07/04/20 17:18 DC 07/02/20 11:15 Lorazepam (Ativan Inj) 0.5 mg DAILY IM 07/03/20 14:30 07/03/20 19:35 DC 07/03/20 15:05 Lorazepam (Ativan Inj) 0.5 mg BID IM 07/03/20 21:00 07/04/20 17:18 DC 07/03/20 22:04 Lorazepam (Ativan Inj) 1 mg 1X ONCE IM 07/05/20 18:45 07/05/20 18:46 DC 07/05/20 20:46 Lorazepam (Ativan Inj) 1 mg DAILY IM 07/06/20 09:00 Psyllium Hydrophilic Mucilloid (Metamucil) 1 pkt HS PO 07/05/20 21:30 07/05/20 21:30 Current Medications Medications (Trade) Dose Ordered Sig/Bora Route PRN Reason Start Time Stop Time Status Last Admin Dose Admin Lorazepam (Ativan Inj) 1 mg 1X ONCE IM 07/05/20 18:45 07/05/20 18:46 DC 07/05/20 20:46 Psyllium Hydrophilic Mucilloid (Metamucil) 1 pkt HS PO 07/05/20 21:30 07/05/20 21:30 I have reviewed the current psychotropics carefully including drug interactions. Risk benefit ratio favors no change other than as noted in my dictated progress note. Diagnosis: Problems: (1) Schizoaffective disorder, bipolar type (2) Bipolar affective, manic, severe w/ psych (3) Impulse control disorder, unspecified (4) Anxiety disorder, unspecified KIERSTEN WATT MD Jul 06, 2020 08:07
[2020-07-06] MEDS: prednisoLONE ACETATE 1% OPHTH SUSPENSION 5ML BOTTLE. OD SCH (09:00)
[2020-07-06] MEDS: FUROSEMIDE 20 MG TABLET PO SCH (09:09)
[2020-07-06] MEDS: MEMANTINE 10 MG TABLET. PO SCH ×2 (09:09→19:44)
[2020-07-06] MEDS: DIVALPROEX 125 MG CAP.SPRINK PO SCH ×2 (09:09→19:44)
--- NOTE | 2020-07-06 11:52 | NUR ---
Patient screaming and yelling out. Took all of her clothes off and sitting on toilet. We put lotion on her and clothed her with a new brief as well. She was given Ativan injection left gluteus. Patient ripped up her trash bag and is acting out. Will re evaluate to see how she does after injection.
[2020-07-06 16:23] VITALS: BP 102/64
--- NOTE | 2020-07-06 18:28 | NUR ---
Patient in room at time of assessment. Patient yelling and screaming but is cooperative and lets me do her assessment. Patient does not answer questions and just yells at me so hard to assess mental status at this time. Patient does not display any self harm tendencies. Patient continues to yell scream and take her clothes off. Patient was given Ativan injection but it does not seem to make a difference in how she behaves. Will discuss with Dr Pinzon and see what he would like to do. No further concerns at this time.
[2020-07-06] MEDS: LEVOTHYROXINE 50 MCG TABLET PO SCH (19:44)
[2020-07-06] MEDS: cloZAPine 100 MG TABLET PO SCH (19:44)
[2020-07-06] MEDS: MIRTAZAPINE 7.5 MG TABLET. PO SCH (19:44)
[2020-07-06] MEDS: PSYLLIUM SEED (WITH SUGAR) PACKET. PO SCH (19:45)
[2020-07-06] MEDS: traZODone 100 MG TABLET. PO PRN (19:47)
[2020-07-06] MEDS: ESTRADIOL 0.01% VAGINAL CREAM 42.5GM TUBE. VG SCH (19:47)
--- NOTE | 2020-07-06 21:08 | PDOC ---
Exam Note: Julian Note: Please also refer to the separate dictated note~for this date of service dictated separately.~Patient seen individually. Discussed the patient with Nursing staff reviewed the chart.~Reviewed interim history and current functioning. Reviewed vital signs,~Labs/ Radiology~and current medications noted below. Continue current treatment with the changes noted in the dictated addendum note Assessment: Vital Signs/I&O: Vital Signs Date Time Temp Pulse Resp B/P (MAP) Pulse Ox O2 Delivery O2 Flow Rate FiO2 07/06/20 16:23 97.1 110 18 102/64 (77) 98 07/04/20 06:01 Room Air I & O 07/05/20 07/05/20 07/06/20 15:00 23:00 07:00 Intake Total 360 ml Balance 360 ml Labs: Laboratory Tests Test 07/05/20 22:00 Urine Collection Type Void Urine Color Yellow Urine Clarity Clear Urine pH 8.5 Urine Specific [place] 1.020 Urine Protein Trace (NEG-TRACE) Urine Glucose (UA) Neg mg/dL (NEG) Urine Ketones (Stick) 15 mg/dL (NEG) Urine Blood Neg (NEG) Urine Nitrite Neg (NEG) Urine Bilirubin Neg (NEG) Urine Urobilinogen Dipstick 0.2 mg/dL (0.2 mg/dL) Urine Leukocyte Esterase Neg (NEG) Urine RBC 0 /HPF (0-2) Urine WBC 1-4 /HPF (0-4) Urine Squamous Epithelial Cells Occ /LPF Urine Bacteria 0 /HPF (0-FEW) Current Medications: Meds: Laboratory Tests Test 07/05/20 22:00 Urine Collection Type Void Urine Color Yellow Urine Clarity Clear Urine pH 8.5 Urine Specific [place] 1.020 Urine Protein Trace Urine Glucose (UA) Neg mg/dL Urine Ketones (Stick) 15 mg/dL Urine Blood Neg Urine Nitrite Neg Urine Bilirubin Neg Urine Urobilinogen Dipstick 0.2 mg/dL Urine Leukocyte Esterase Neg Urine RBC 0 /HPF Urine WBC 1-4 /HPF Urine Squamous Epithelial Cells Occ /LPF Urine Bacteria 0 /HPF Current Medications Medications (Trade) Dose Ordered Sig/Bora Route PRN Reason Start Time Stop Time Status Last Admin Dose Admin Diclofenac Sodium (Voltaren) 1 barbara PRN QID PRN TP MUSCLE PAIN 07/01/20 15:00 Divalproex Sodium (Depakote Sprinkles) 375 mg BID PO 07/01/20:00 07/06/20 19:44 Docusate Sodium (Colace) 100 mg PRN BID PRN PO HARD STOOLS 07/01/20 15:00 07/04/20 19:14 Estradiol (Estrace) 1 barbara QMTH VG 07/03/20 16:00 07/06/20 17:44 DC Fluvoxamine Maleate (Luvox) 25 mg HS PO 07/01/20 21:00 07/02/20 09:40 DC 07/01/20 20:22 Furosemide (Lasix) 20 mg DAILY PO 07/02/20 09:00 07/06/20 09:09 Levothyroxine Sodium (Synthroid) 50 mcg HS PO 07/01/20 21:00 07/06/20 19:44 Memantine (Namenda) 10 mg BID PO 07/01/20 21:00 07/06/20 19:44 Mirtazapine (Remeron) 7.5 mg QHS PO 07/01/20 21:00 07/06/20 19:44 Olanzapine (ZyPREXA ZYDIS) 5 mg PRN BID PRN PO ANXIETY / AGITATION 07/01/20 15:00 07/02/20 09:40 DC 07/01/20 23:27 Artificial Tears (Refresh Classic) 1 drop PRN TID PRN OU DRY EYE 07/01/20 15:00 Prednisolone Acetate (Pred Forte) 1 drop DAILY OD 07/02/20 09:00 07/06/20 09:00 Tramadol HCl (Ultram) 50 mg PRN Q8HRS PRN PO PAIN 07/01/20 15:00 07/02/20 20:22 Trazodone HCl (Desyrel) 100 mg PRN QHS PRN PO INSOMNIA 07/01/20 15:00 07/06/20 19:47 Ziprasidone (Geodon Im) 20 mg PRN BID PRN IM ANXIETY / AGITATION 07/01/20 15:00 07/02/20 10:56 DC 07/01/20 21:53 Guaifenesin/ Codeine Phosphate (Robitussin Ac) 5 ml PRN Q4HRS PRN PO COUGH 07/01/20 17:45 Al Hydroxide/Mg Hydroxide (Mylanta Plus Xs) 15 ml PRN Q2HR PRN PO DYSPEPSIA 07/01/20 17:45 Magnesium Hydroxide (Milk Of Magnesia) 2,400 mg PRN Q4HRS PRN PO CONSTIPATION 07/01/20 17:45 07/03/20 22:04 Olanzapine (ZyPREXA ZYDIS) 5 mg PRN Q2HRS PRN PO ANXIETY / AGITATION 07/02/20 09:45 07/05/20 13:30 Clozapine (Clozaril) 150 mg HS PO 07/02/20 21:00 07/06/20 19:44 Ziprasidone (Geodon Im) 40 mg DAILY IM 07/02/20 11:15 07/04/20 17:18 DC 07/02/20 11:15 Lorazepam (Ativan Inj) 0.5 mg DAILY IM 07/03/20 14:30 07/03/20 19:35 DC 07/03/20 15:05 Lorazepam (Ativan Inj) 0.5 mg BID IM 07/03/20 21:00 07/04/20 17:18 DC 07/03/20 22:04 Lorazepam (Ativan Inj) 1 mg 1X ONCE IM 07/05/20 18:45 07/05/20 18:46 DC 07/05/20 20:46 Lorazepam (Ativan Inj) 1 mg DAILY IM 07/06/20 09:00 07/06/20 11:50 Psyllium Hydrophilic Mucilloid (Metamucil) 1 pkt HS PO 07/05/20 21:30 07/06/20 19:45 Estradiol (Estrace) 1 barbara QMTH@2100 VG 07/06/20 21:00 Current Medications Medications (Trade) Dose Ordered Sig/Bora Route PRN Reason Start Time Stop Time Status Last Admin Dose Admin Lorazepam (Ativan Inj) 1 mg DAILY IM 07/06/20 09:00 07/06/20 11:50 Psyllium Hydrophilic Mucilloid (Metamucil) 1 pkt HS PO 07/05/20 21:30 07/06/20 19:45 I have reviewed the current psychotropics carefully including drug interactions. Risk benefit ratio favors no change other than as noted in my dictated progress note. Diagnosis: Problems: (1) Bipolar affective, manic, severe w/ psych (2) Impulse control disorder, unspecified (3) Anxiety disorder, unspecified (4) Schizoaffective disorder, bipolar type (5) Mild cognitive impairment KIERSTEN WATT MD Jul 06, 2020 21:08
--- NOTE | 2020-07-06 21:51 | NUR ---
Nursing Note Pt in her room making loud guttural screams, upon entering, I asked why she was screaming, and she responded "I wasn't screaming, you were screaming. I want orange! [place] drinks, orange food, orange clothes ORANGE ORANGE ORANGE!!". I attempted to give her metamucil with grape juice like she asked, then she yells in my face, "I want it sparkling, make it sparkle Cherie! Get me some sparkle and more metamucil!!!" Obtained lemon tulalip soda, added to grape juice and metamucil. Pt drank it all, then tells me to get more sparkle with more metamucil in it. I told her she just drank it, she gets one package per night. Pt responds "No you didn't, you never gave it to me. See that, it scares me I'm going to rip it down and smash something with it, why is it there? Is it filming me? Get it out of here now!!". Pt had been pointing to the oxygen flow meter on her wall. Removed flow meter, and reassured her that no one is filming her. Pt compliant and cooperative with meds.
[2020-07-07 05:50] VITALS: BP 131/87
[2020-07-07] MEDS: MEMANTINE 10 MG TABLET. PO SCH ×2 (07:42→19:49)
[2020-07-07] MEDS: FUROSEMIDE 20 MG TABLET PO SCH (07:43)
[2020-07-07] MEDS: prednisoLONE ACETATE 1% OPHTH SUSPENSION 5ML BOTTLE. OD SCH (07:43)
[2020-07-07] MEDS: DIVALPROEX 125 MG CAP.SPRINK PO SCH ×2 (07:43→19:49)
--- NOTE | 2020-07-07 08:27 | PDOC ---
Exam Note: Julian Note: This note is a late entry for 07/06/2020 covers elements not covered in my initial note. Subjective: The patient was seen face to face in the evening of 07/06/2020 with Stacie MUÑOZ, discussed and reviewed the chart. The patient slept 6-1/2 hours previous night. Overall she has had a very difficult day. She continues to have marked mood lability, grandiose, manic, hyperverbal, paranoid, psychotic, intermittently hallucinating. She has been undressing herself. [facility] and even there she is yelling, loud, disruptive, repetitive, screaming frequently. Review of Systems: No CV, , pulmonary, eye, ENT system symptoms on review. Reliability poor. Mental Status Exam: The patient is oriented to herself and situation. She continues to yell as times rather loud but was calmer as I met with her in the evening. Speech is coherent, rapid, loud at times. Abstraction is fair. Computation is impaired. Language function is intact. Attention span is short. Mood and affect labile. Laboratory Data: Reviewed. Impression: Schizoaffective disorder bipolar type, manic with psychotic features. Anxiety disorder unspecified. Impulse control disorder unspecified. Plan: No change from initial note. Continue to encourage compliance with her psychotropics. Maintain Clozaril which we will continue to increase and adjust Depakote to reach therapeutic level. Assessment: Vital Signs/I&O: Vital Signs Date Time Temp Pulse Resp B/P (MAP) Pulse Ox O2 Delivery O2 Flow Rate FiO2 07/07/20 05:50 98.1 109 18 131/87 (102) 91 07/04/20 06:01 Room Air I & O 07/06/20 07/06/20 07/07/20 15:00 23:00 07:00 Intake Total 0 ml 100 ml 120 ml Balance 0 ml 100 ml 120 ml Current Medications: Meds: Current Medications Medications (Trade) Dose Ordered Sig/Bora Route PRN Reason Start Time Stop Time Status Last Admin Dose Admin Diclofenac Sodium (Voltaren) 1 barbara PRN QID PRN TP MUSCLE PAIN 07/01/20 15:00 Divalproex Sodium (Depakote Sprinkles) 375 mg BID PO 07/01/20 21:00 07/07/20 07:43 Docusate Sodium (Colace) 100 mg PRN BID PRN PO HARD STOOLS 07/01/20 15:00 07/04/20 19:14 Estradiol (Estrace) 1 barbara QMTH VG 07/03/20 16:00 07/06/20 17:44 DC Fluvoxamine Maleate (Luvox) 25 mg HS PO 07/01/20 21:00 07/02/20 09:40 DC 07/01/20 20:22 Furosemide (Lasix) 20 mg DAILY PO 07/02/20 09:00 07/07/20 07:43 Levothyroxine Sodium (Synthroid) 50 mcg HS PO 07/01/20 21:00 07/06/20 19:44 Memantine (Namenda) 10 mg BID PO 07/01/20 21:00 07/07/20 07:42 Mirtazapine (Remeron) 7.5 mg QHS PO 07/01/20 21:00 07/06/20 19:44 Olanzapine (ZyPREXA ZYDIS) 5 mg PRN BID PRN PO ANXIETY / AGITATION 07/01/20 15:00 07/02/20 09:40 DC 07/01/20 23:27 Artificial Tears (Refresh Classic) 1 drop PRN TID PRN OU DRY EYE 07/01/20 15:00 Prednisolone Acetate (Pred Forte) 1 drop DAILY OD 07/02/20 09:00 07/07/20 07:43 Tramadol HCl (Ultram) 50 mg PRN Q8HRS PRN PO PAIN 07/01/20 15:00 07/02/20 20:22 Trazodone HCl (Desyrel) 100 mg PRN QHS PRN PO INSOMNIA 07/01/20 15:00 07/06/20 19:47 Ziprasidone (Geodon Im) 20 mg PRN BID PRN IM ANXIETY / AGITATION 07/01/20 15:00 07/02/20 10:56 DC 07/01/20 21:53 Guaifenesin/ Codeine Phosphate (Robitussin Ac) 5 ml PRN Q4HRS PRN PO COUGH 07/01/20 17:45 Al Hydroxide/Mg Hydroxide (Mylanta Plus Xs) 15 ml PRN Q2HR PRN PO DYSPEPSIA 07/01/20 17:45 Magnesium Hydroxide (Milk Of Magnesia) 2,400 mg PRN Q4HRS PRN PO CONSTIPATION 07/01/20 17:45 07/03/20 22:04 Olanzapine (ZyPREXA ZYDIS) 5 mg PRN Q2HRS PRN PO ANXIETY / AGITATION 07/02/20 09:45 07/05/20 13:30 Clozapine (Clozaril) 150 mg HS PO 07/02/20 21:00 07/06/20 19:44 Ziprasidone (Geodon Im) 40 mg DAILY IM 07/02/20 11:15 07/04/20 17:18 DC 07/02/20 11:15 Lorazepam (Ativan Inj) 0.5 mg DAILY IM 07/03/20 14:30 07/03/20 19:35 DC 07/03/20 15:05 Lorazepam (Ativan Inj) 0.5 mg BID IM 07/03/20 21:00 07/04/20 17:18 DC 07/03/20 22:04 Lorazepam (Ativan Inj) 1 mg 1X ONCE IM 07/05/20 18:45 07/05/20 18:46 DC 07/05/20 20:46 Lorazepam (Ativan Inj) 1 mg DAILY IM 07/06/20 09:00 07/06/20 11:50 Psyllium Hydrophilic Mucilloid (Metamucil) 1 pkt HS PO 07/05/20 21:30 07/06/20 19:45 Estradiol (Estrace) 1 barbara QMTH@2100 VG 07/06/20 21:00 Current Medications Medications (Trade) Dose Ordered Sig/Bora Route PRN Reason Start Time Stop Time Status Last Admin Dose Admin Lorazepam (Ativan Inj) 1 mg DAILY IM 07/06/20 09:00 07/06/20 11:50 I have reviewed the current psychotropics carefully including drug interactions. Risk benefit ratio favors no change other than as noted in my dictated progress note. Diagnosis: Problems: (1) Impulse control disorder, unspecified (2) Anxiety disorder, unspecified (3) Schizoaffective disorder, bipolar type (4) Bipolar affective, manic, severe w/ psych (5) Mild cognitive impairment (6) Obsessive compulsive disorder KIERSTEN WATT MD Jul 07, 2020 08:27
--- NOTE | 2020-07-07 10:08 | NUR ---
SW visited with pt who was sitting in front of the [employer]. Pt is manic as evidenced by pressured speech when she speechs and has a flight of ideas. Pt wanted to know why SW had not come seen her yet and SW explained that pt spent most of her time in the quiet hallway for behaviors. SW mentioned pt sitting around naked most of that time and pt stated "no one saw my boobies. I've been clothed most of the time I was here". SW questioned if pt thought she was manic and pt stated "no. I'm not manic and just need to cut my hair". SW noted that pt hair is longer than normal and pt said I just need to shave it off. Pt has been counting and having non-whimsical conversations by herself as she sits in the chair. [facility] will continue to work with pt family and facility to finalize discharge plans.
[2020-07-07 15:35] VITALS: BP 101/69
--- NOTE | 2020-07-07 16:15 | NUR ---
Patient was screaming and yelling in her room. She pulled down her drapes in her room and ripped up a pillow. She was given Ativan 1mg to help calm her down. She cooperates for the injection and stays in her room but very loud and disruptive. Patient did calm down after getting the Ativan.
--- NOTE | 2020-07-07 16:52 | NUR ---
Patient came out of her room and was well behaved for most of the afternoon after the Ativan injection. She was cooperative at all times but did continue to yell at us at times.
[2020-07-07] MEDS: PSYLLIUM SEED (WITH SUGAR) PACKET. PO SCH (19:47)
[2020-07-07] MEDS: LEVOTHYROXINE 50 MCG TABLET PO SCH (19:49)
[2020-07-07] MEDS: MIRTAZAPINE 7.5 MG TABLET. PO SCH (19:49)
[2020-07-07] MEDS: cloZAPine 100 MG TABLET PO SCH (19:50)
[2020-07-07] MEDS: traZODone 100 MG TABLET. PO PRN (19:51)
--- NOTE | 2020-07-07 20:56 | PDOC ---
Exam Note: Julian Note: Please also refer to the separate dictated note~for this date of service dictated separately.~Patient seen individually. Discussed the patient with Nursing staff reviewed the chart.~Reviewed interim history and current functioning. Reviewed vital signs,~Labs/ Radiology~and current medications noted below. Continue current treatment with the changes noted in the dictated addendum note Assessment: Vital Signs/I&O: Vital Signs Date Time Temp Pulse Resp B/P (MAP) Pulse Ox O2 Delivery O2 Flow Rate FiO2 07/07/20 15:35 98.2 109 17 101/69 (80) 96 07/04/20 06:01 Room Air I & O 07/06/20 07/06/20 07/07/20 15:00 23:00 07:00 Intake Total 0 ml 100 ml 120 ml Balance 0 ml 100 ml 120 ml Current Medications: Meds: Current Medications Medications (Trade) Dose Ordered Sig/Bora Route PRN Reason Start Time Stop Time Status Last Admin Dose Admin Diclofenac Sodium (Voltaren) 1 barbara PRN QID PRN TP MUSCLE PAIN 07/01/20 15:00 Divalproex Sodium (Depakote Sprinkles) 375 mg BID PO 07/01/20 21:00 07/07/20 19:49 Docusate Sodium (Colace) 100 mg PRN BID PRN PO HARD STOOLS 07/01/20 15:00 07/04/20 19:14 Estradiol (Estrace) 1 barbara QMTH VG 07/03/20 16:00 07/06/20 17:44 DC Fluvoxamine Maleate (Luvox) 25 mg HS PO 07/01/20 21:00 07/02/20 09:40 DC 07/01/20 20:22 Furosemide (Lasix) 20 mg DAILY PO 07/02/20 09:00 07/07/20 07:43 Levothyroxine Sodium (Synthroid) 50 mcg HS PO 07/01/20 21:00 07/07/20 19:49 Memantine (Namenda) 10 mg BID PO 07/01/20 21:00 07/07/20 19:49 Mirtazapine (Remeron) 7.5 mg QHS PO 07/01/20 21:00 07/07/20 19:49 Olanzapine (ZyPREXA ZYDIS) 5 mg PRN BID PRN PO ANXIETY / AGITATION 07/01/20 15:00 07/02/20 09:40 DC 07/01/20 23:27 Artificial Tears (Refresh Classic) 1 drop PRN TID PRN OU DRY EYE 07/01/20 15:00 Prednisolone Acetate (Pred Forte) 1 drop DAILY OD 07/02/20 09:00 07/07/20 07:43 Tramadol HCl (Ultram) 50 mg PRN Q8HRS PRN PO PAIN 07/01/20 15:00 07/02/20 20:22 Trazodone HCl (Desyrel) 100 mg PRN QHS PRN PO INSOMNIA 07/01/20 15:00 07/07/20 19:51 Ziprasidone (Geodon Im) 20 mg PRN BID PRN IM ANXIETY / AGITATION 07/01/20 15:00 07/02/20 10:56 DC 07/01/20 21:53 Guaifenesin/ Codeine Phosphate (Robitussin Ac) 5 ml PRN Q4HRS PRN PO COUGH 07/01/20 17:45 Al Hydroxide/Mg Hydroxide (Mylanta Plus Xs) 15 ml PRN Q2HR PRN PO DYSPEPSIA 07/01/20 17:45 Magnesium Hydroxide (Milk Of Magnesia) 2,400 mg PRN Q4HRS PRN PO CONSTIPATION 07/01/20 17:45 07/03/20 22:04 Olanzapine (ZyPREXA ZYDIS) 5 mg PRN Q2HRS PRN PO ANXIETY / AGITATION 07/02/20 09:45 07/05/20 13:30 Clozapine (Clozaril) 150 mg HS PO 07/02/20 21:00 07/07/20 19:50 Ziprasidone (Geodon Im) 40 mg DAILY IM 07/02/20 11:15 07/04/20 17:18 DC 07/02/20 11:15 Lorazepam (Ativan Inj) 0.5 mg DAILY IM 07/03/20 14:30 07/03/20 19:35 DC 07/03/20 15:05 Lorazepam (Ativan Inj) 0.5 mg BID IM 07/03/20 21:00 07/04/20 17:18 DC 07/03/20 22:04 Lorazepam (Ativan Inj) 1 mg 1X ONCE IM 07/05/20 18:45 07/05/20 18:46 DC 07/05/20 20:46 Lorazepam (Ativan Inj) 1 mg DAILY IM 07/06/20 09:00 07/07/20 14:29 Psyllium Hydrophilic Mucilloid (Metamucil) 1 pkt HS PO 07/05/20 21:30 07/07/20 19:47 Estradiol (Estrace) 1 barbara QMTH@2100 VG 07/06/20 21:00 I have reviewed the current psychotropics carefully including drug interactions. Risk benefit ratio favors no change other than as noted in my dictated progress note. Diagnosis: Problems: (1) Schizoaffective disorder, bipolar type (2) Impulse control disorder, unspecified (3) Anxiety disorder, unspecified (4) Bipolar affective, manic, severe w/ psych KIERSTEN WATT MD Jul 07, 2020 20:56
--- NOTE | 2020-07-07 21:24 | NUR ---
Nursing Note Pt in the hallway, more alert, no screaming. Pleasant and calm. Takes PO meds plus ultram for pain to back. Requesting snacks from staff.
[2020-07-07] MEDS: traMADol 50 MG TABLET PO PRN (22:13)
[2020-07-08] MEDS: traMADol 50 MG TABLET PO PRN ×2 (06:14→18:06)
[2020-07-08 06:18] VITALS: BP 117/77
--- NOTE | 2020-07-08 07:50 | PDOC ---
Exam Note: Julian Note: This note is a late entry for 07/07/2020 covers elements not covered in my initial note. Subjective: The patient was seen face to face in the evening of 07/07/2020 with Stacie MUÑOZ, discussed and reviewed the chart. The patient slept 3-1/4 hours previous night. She did better in the morning. She then had a shower, was upset after this. She pulled the drapes off her windows in her room and ripped the pillow into shreds. Received Ativan IM at 2 p.m. 1 mg. I met with her in her room in the evening. Review of Systems: No CV, , pulmonary, eye, ENT system symptoms on review. Reliability poor. She is less fixated on undressing herself. Mental Status Exam: The patient is oriented to herself and situation. Speech is coherent, still somewhat pressured. Abstraction is fair. Computation is impaired. Language function is intact. Attention span is short. Mood and affect remains grandiose, manic, labile. Laboratory Data: Reviewed. Impression: Schizoaffective disorder bipolar type, manic with psychotic features. Anxiety disorder unspecified. Impulse control disorder unspecified. Plan: No change from initial note. Assessment: Vital Signs/I&O: Vital Signs Date Time Temp Pulse Resp B/P (MAP) Pulse Ox O2 Delivery O2 Flow Rate FiO2 07/08/20 06:18 97.5 104 16 117/77 (90) 98 07/04/20 06:01 Room Air I & O 07/07/20 07/07/20 07/08/20 14:59 22:59 06:59 Intake Total 640 ml 960 ml Balance 640 ml 960 ml Current Medications: Meds: Current Medications Medications (Trade) Dose Ordered Sig/Bora Route PRN Reason Start Time Stop Time Status Last Admin Dose Admin Diclofenac Sodium (Voltaren) 1 barbara PRN QID PRN TP MUSCLE PAIN 07/01/20 15:00 Divalproex Sodium (Depakote Sprinkles) 375 mg BID PO 07/01/20 21:00 07/07/20 19:49 Docusate Sodium (Colace) 100 mg PRN BID PRN PO HARD STOOLS 07/01/20 15:00 07/04/20 19:14 Estradiol (Estrace) 1 barbara QMTH VG 07/03/20 16:00 07/06/20 17:44 DC Fluvoxamine Maleate (Luvox) 25 mg HS PO 07/01/20 21:00 07/02/20 09:40 DC 07/01/20 20:22 Furosemide (Lasix) 20 mg DAILY PO 07/02/20 09:00 07/07/20 07:43 Levothyroxine Sodium (Synthroid) 50 mcg HS PO 07/01/20 21:00 07/07/20 19:49 Memantine (Namenda) 10 mg BID PO 07/01/20 21:00 07/07/20 19:49 Mirtazapine (Remeron) 7.5 mg QHS PO 07/01/20 21:00 07/07/20 19:49 Olanzapine (ZyPREXA ZYDIS) 5 mg PRN BID PRN PO ANXIETY / AGITATION 07/01/20 15:00 07/02/20 09:40 DC 07/01/20 23:27 Artificial Tears (Refresh Classic) 1 drop PRN TID PRN OU DRY EYE 07/01/20 15:00 Prednisolone Acetate (Pred Forte) 1 drop DAILY OD 07/02/20 09:00 07/07/20 07:43 Tramadol HCl (Ultram) 50 mg PRN Q8HRS PRN PO PAIN 07/01/20 15:00 07/08/20 06:14 Trazodone HCl (Desyrel) 100 mg PRN QHS PRN PO INSOMNIA 07/01/20 15:00 07/07/20 19:51 Ziprasidone (Geodon Im) 20 mg PRN BID PRN IM ANXIETY / AGITATION 07/01/20 15:00 07/02/20 10:56 DC 07/01/20 21:53 Guaifenesin/ Codeine Phosphate (Robitussin Ac) 5 ml PRN Q4HRS PRN PO COUGH 07/01/20 17:45 Al Hydroxide/Mg Hydroxide (Mylanta Plus Xs) 15 ml PRN Q2HR PRN PO DYSPEPSIA 07/01/20 17:45 Magnesium Hydroxide (Milk Of Magnesia) 2,400 mg PRN Q4HRS PRN PO CONSTIPATION 07/01/20 17:45 07/03/20 22:04 Olanzapine (ZyPREXA ZYDIS) 5 mg PRN Q2HRS PRN PO ANXIETY / AGITATION 07/02/20 09:45 07/05/20 13:30 Clozapine (Clozaril) 150 mg HS PO 07/02/20 21:00 07/07/20 19:50 Ziprasidone (Geodon Im) 40 mg DAILY IM 07/02/20 11:15 07/04/20 17:18 DC 07/02/20 11:15 Lorazepam (Ativan Inj) 0.5 mg DAILY IM 07/03/20 14:30 07/03/20 19:35 DC 07/03/20 15:05 Lorazepam (Ativan Inj) 0.5 mg BID IM 07/03/20 21:00 07/04/20 17:18 DC 07/03/20 22:04 Lorazepam (Ativan Inj) 1 mg 1X ONCE IM 07/05/20 18:45 07/05/20 18:46 DC 07/05/20 20:46 Lorazepam (Ativan Inj) 1 mg DAILY IM 07/06/20 09:00 07/07/20 14:29 Psyllium Hydrophilic Mucilloid (Metamucil) 1 pkt HS PO 07/05/20 21:30 07/07/20 19:47 Estradiol (Estrace) 1 barbara QMTH@2100 VG 07/06/20 21:00 I have reviewed the current psychotropics carefully including drug interactions. Risk benefit ratio favors no change other than as noted in my dictated progress note. Diagnosis: Problems: (1) Impulse control disorder, unspecified (2) Schizoaffective disorder, bipolar type (3) Anxiety disorder, unspecified (4) Bipolar affective, manic, severe w/ psych KIERSTEN WATT MD Jul 08, 2020 07:50
[2020-07-08] MEDS: DIVALPROEX 125 MG CAP.SPRINK PO SCH ×2 (08:03→20:05)
[2020-07-08] MEDS: MEMANTINE 10 MG TABLET. PO SCH ×2 (08:03→20:04)
[2020-07-08] MEDS: FUROSEMIDE 20 MG TABLET PO SCH (08:03)
[2020-07-08] MEDS: prednisoLONE ACETATE 1% OPHTH SUSPENSION 5ML BOTTLE. OD SCH (09:00)
--- NOTE | 2020-07-08 11:57 | NUR ---
Patient screaming and yelling and hitting and spitting at staff. Undressing again. Ativan 1mg given IM. Will monitor for behavior results.
[2020-07-08] MEDS ORDERED: MINERAL OIL/PETROLATUM TOPICAL CREAM 113GM JAR. TP PRN (12:30)
--- NOTE | 2020-07-08 15:25 | NUR ---
Patient is doing better this afternoon and has had no further issues. She is in her regular dress and was told she will go back into a onsie if she takes clothes off again. She was upset earlier that we weren't letting her wear her regular clothes so we are on a trial with how she does. We will continue to monitor patient behaviors. Even thought she acts these ways patient is cooperative and complaint with medications and takes them whole with no problems. IM injections are not fought at all either.
[2020-07-08 15:46] VITALS: BP 114/72
[2020-07-08] MEDS: diphenhydrAMINE HCL 25 MG CAPSULE PO PRN (18:06)
[2020-07-08] MEDS: MIRTAZAPINE 7.5 MG TABLET. PO SCH (20:04)
[2020-07-08] MEDS: LEVOTHYROXINE 50 MCG TABLET PO SCH (20:04)
[2020-07-08] MEDS: cloZAPine 100 MG TABLET PO SCH (20:04)
[2020-07-08] MEDS: PSYLLIUM SEED (WITH SUGAR) PACKET. PO SCH (20:05)
[2020-07-08] MEDS: traZODone 100 MG TABLET. PO PRN (20:06)
--- NOTE | 2020-07-08 21:01 | PDOC ---
Exam Note: Julian Note: Please also refer to the separate dictated note~for this date of service dictated separately.~Patient seen individually. Discussed the patient with Nursing staff reviewed the chart.~Reviewed interim history and current functioning. Reviewed vital signs,~Labs/ Radiology~and current medications noted below. Continue current treatment with the changes noted in the dictated addendum note Assessment: Vital Signs/I&O: Vital Signs Date Time Temp Pulse Resp B/P (MAP) Pulse Ox O2 Delivery O2 Flow Rate FiO2 07/08/20 19:21 98 07/08/20 15:46 98.1 93 20 114/72 (86) Room Air I & O 07/07/20 07/07/20 07/08/20 15:00 23:00 07:00 Intake Total 640 ml 960 ml Balance 640 ml 960 ml Current Medications: Meds: Current Medications Medications (Trade) Dose Ordered Sig/Bora Route PRN Reason Start Time Stop Time Status Last Admin Dose Admin Diclofenac Sodium (Voltaren) 1 barbara PRN QID PRN TP MUSCLE PAIN 07/01/20 15:00 Divalproex Sodium (Depakote Sprinkles) 375 mg BID PO 07/01/20 21:00 07/08/20 20:05 Docusate Sodium (Colace) 100 mg PRN BID PRN PO HARD STOOLS 07/01/20 15:00 07/04/20 19:14 Estradiol (Estrace) 1 barbara QMTH VG 07/03/20 16:00 07/06/20 17:44 DC Fluvoxamine Maleate (Luvox) 25 mg HS PO 07/01/20 21:00 07/02/20 09:40 DC 07/01/20 20:22 Furosemide (Lasix) 20 mg DAILY PO 07/02/20 09:00 07/08/20 08:03 Levothyroxine Sodium (Synthroid) 50 mcg HS PO 07/01/20 21:00 07/08/20 20:04 Memantine (Namenda) 10 mg BID PO 07/01/20 21:00 07/08/20 20:04 Mirtazapine (Remeron) 7.5 mg QHS PO 07/01/20 21:00 07/08/20 20:04 Olanzapine (ZyPREXA ZYDIS) 5 mg PRN BID PRN PO ANXIETY / AGITATION 07/01/20 15:00 07/02/20 09:40 DC 07/01/20 23:27 Artificial Tears (Refresh Classic) 1 drop PRN TID PRN OU DRY EYE 07/01/20 15:00 Prednisolone Acetate (Pred Forte) 1 drop DAILY OD 07/02/20 09:00 07/08/20 09:00 Tramadol HCl (Ultram) 50 mg PRN Q8HRS PRN PO PAIN 07/01/20 15:00 07/08/20 18:06 Trazodone HCl (Desyrel) 100 mg PRN QHS PRN PO INSOMNIA 07/01/20 15:00 07/08/20 20:06 Ziprasidone (Geodon Im) 20 mg PRN BID PRN IM ANXIETY / AGITATION 07/01/20 15:00 07/02/20 10:56 DC 07/01/20 21:53 Guaifenesin/ Codeine Phosphate (Robitussin Ac) 5 ml PRN Q4HRS PRN PO COUGH 07/01/20 17:45 Al Hydroxide/Mg Hydroxide (Mylanta Plus Xs) 15 ml PRN Q2HR PRN PO DYSPEPSIA 07/01/20 17:45 Magnesium Hydroxide (Milk Of Magnesia) 2,400 mg PRN Q4HRS PRN PO CONSTIPATION 07/01/20 17:45 07/03/20 22:04 Olanzapine (ZyPREXA ZYDIS) 5 mg PRN Q2HRS PRN PO ANXIETY / AGITATION 07/02/20 09:45 07/05/20 13:30 Clozapine (Clozaril) 150 mg HS PO 07/02/20 21:00 07/08/20 20:04 Ziprasidone (Geodon Im) 40 mg DAILY IM 07/02/20 11:15 07/04/20 17:18 DC 07/02/20 11:15 Lorazepam (Ativan Inj) 0.5 mg DAILY IM 07/03/20 14:30 07/03/20 19:35 DC 07/03/20 15:05 Lorazepam (Ativan Inj) 0.5 mg BID IM 07/03/20 21:00 07/04/20 17:18 DC 07/03/20 22:04 Lorazepam (Ativan Inj) 1 mg 1X ONCE IM 07/05/20 18:45 07/05/20 18:46 DC 07/05/20 20:46 Lorazepam (Ativan Inj) 1 mg DAILY IM 07/06/20 09:00 07/08/20 09:00 Psyllium Hydrophilic Mucilloid (Metamucil) 1 pkt HS PO 07/05/20 21:30 07/08/20 20:05 Estradiol (Estrace) 1 barbara QMTH@2100 VG 07/06/20 21:00 Multi-Ingred Cream/Lotion/Oil/ Oint (Hydrocerin) 1 barbara PRN Q1HR PRN TP DRY SKIN / SCALING 07/08/20 12:30 Diphenhydramine HCl (Benadryl) 25 mg PRN Q4HRS PRN PO ITCHING 07/08/20 18:00 07/08/20 18:06 Current Medications Medications (Trade) Dose Ordered Sig/Bora Route PRN Reason Start Time Stop Time Status Last Admin Dose Admin Diphenhydramine HCl (Benadryl) 25 mg PRN Q4HRS PRN PO ITCHING 07/08/20 18:00 07/08/20 18:06 I have reviewed the current psychotropics carefully including drug interactions. Risk benefit ratio favors no change other than as noted in my dictated progress note. Diagnosis: Problems: (1) Schizoaffective disorder, bipolar type (2) Impulse control disorder, unspecified (3) Anxiety disorder, unspecified (4) Bipolar affective, manic, severe w/ psych KIERSTEN WATT MD Jul 08, 2020 21:01
--- NOTE | 2020-07-08 22:29 | NUR ---
Pt located in her room this evening. Pt irritable, but compliant with whole medications. Pt intermittently yelled and cursed at staff.
[2020-07-09] MEDS: diphenhydrAMINE HCL 25 MG CAPSULE PO PRN ×2 (02:07→21:44)
[2020-07-09 05:37] VITALS: BP 127/85
[2020-07-09] MEDS: DIVALPROEX 125 MG CAP.SPRINK PO SCH ×2 (07:53→20:06)
[2020-07-09] MEDS: MEMANTINE 10 MG TABLET. PO SCH ×2 (07:53→20:06)
[2020-07-09] MEDS: FUROSEMIDE 20 MG TABLET PO SCH (07:53)
[2020-07-09] MEDS: prednisoLONE ACETATE 1% OPHTH SUSPENSION 5ML BOTTLE. OD SCH (07:55)
[2020-07-09 16:20] VITALS: BP 109/68
--- NOTE | 2020-07-09 18:45 | NUR ---
Pt up to meals. Has yelled out intermittently during day. Has been more social today. Has been compliant with meds and cares.
[2020-07-09] MEDS: MIRTAZAPINE 7.5 MG TABLET. PO SCH (20:06)
[2020-07-09] MEDS: LEVOTHYROXINE 50 MCG TABLET PO SCH (20:06)
[2020-07-09] MEDS: cloZAPine 100 MG TABLET PO SCH (20:06)
[2020-07-09] MEDS: PSYLLIUM SEED (WITH SUGAR) PACKET. PO SCH (20:06)
[2020-07-09] MEDS: traZODone 100 MG TABLET. PO PRN (20:06)
--- NOTE | 2020-07-09 21:31 | PDOC ---
Exam Note: Julian Note: Please also refer to the separate dictated note~for this date of service dictated separately.~Patient seen individually. Discussed the patient with Nursing staff reviewed the chart.~Reviewed interim history and current functioning. Reviewed vital signs,~Labs/ Radiology~and current medications noted below. Continue current treatment with the changes noted in the dictated addendum note Assessment: Vital Signs/I&O: Vital Signs Date Time Temp Pulse Resp B/P (MAP) Pulse Ox O2 Delivery O2 Flow Rate FiO2 07/09/20 16:20 98.4 114 20 109/68 (82) 91 07/08/20 15:46 Room Air I & O 07/08/20 07/08/20 07/09/20 15:00 23:00 07:00 Intake Total 480 ml 600 ml Balance 480 ml 600 ml Current Medications: I have reviewed the current psychotropics carefully including drug interactions. Risk benefit ratio favors no change other than as noted in my dictated progress note. 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
--- NOTE | 2020-07-09 22:21 | NUR ---
Pt has been calmer this evening. Pt has not attempted to take off her clothes and is more interactive. Compliant with whole medications.
--- NOTE | 2020-07-10 00:08 | PN ---
DATE: 07/09/2020 PSYCHIATRIC PROGRESS NOTE This note covers elements not covered in my initial note on 07/09/2020. SUBJECTIVE: I met with the patient at length in the evening. Per WANDA Hirsch., the patient slept 6 hours previous night. She has been screaming off and on. Agitated, paranoid, but much improved this evening as I met with her extensively as she was sitting in the individual, group room area. She became tearful when I discussed symptoms that prompted her admission and her progress and seems quite insightful about her inappropriate manic symptoms. She took her meds better today and last night. We will check a valproic acid level in the morning. REVIEW OF SYSTEMS: No CV, , pulmonary, eye system symptoms on review. MENTAL STATUS EXAM: Reasonably oriented. Speech coherent, less pressured. Abstraction fair, computation impaired, language function intact. Mood and affect somewhat anxious, tearful at times, but less manic. No suicidal or homicidal ideation. LABORATORY DATA: Reviewed. IMPRESSION: Bipolar 1 disorder, mixed with psychotic features versus schizoaffective disorder, bipolar type, mixed with psychotic features, mild cognitive impairment; anxiety disorder, unspecified. PLAN: Continue psychotropics from initial note. Check a valproic acid level. Maintain trazodone, Depakote, Namenda, Clozaril, and Remeron for now. MAN Rox WATT MD DR: SANCHEZ/fredrick JOB#: [id number] / [id number]
[2020-07-10] MEDS: traMADol 50 MG TABLET PO PRN (00:44)
[2020-07-10 06:04] LABS: BASO % 1 % (0-3); EOS # 0.3 x10^3/uL (0.0-0.7); EOS % 6 % (0-3); HEMATOCRIT 33.1 % (36.0-47.0); HEMOGLOBIN 10.7 g/dL (12.0-15.5); LYMPH # 1.9 x10^3/uL (1.0-4.8); LYMPH % 33 % (24-48); MEAN CORPUSCULAR HEMOGLOBIN 28 pg (25-35); MEAN CORPUSCULAR HGB CONC 32 g/dL (31-37); MEAN CORPUSCULAR VOLUME 87 fL (79-100); MONO # 1.1 x10^3/uL (0.0-1.1); MONO % 19 % (0-9); NEUT # 2.4 x10^3uL (1.8-7.7); NEUT % 42 % (31-73); PLATELET COUNT 173 x10^3/uL (140-400); RED BLOOD COUNT 3.81 x10^6/uL (3.50-5.40); RED CELL DISTRIBUTION WIDTH 16.3 % (11.5-14.5); WHITE BLOOD COUNT 5.8 x10^3/uL (4.0-11.0)
[2020-07-10 06:05] VITALS: BP 105/67
[2020-07-10 06:21] LABS: ALBUMIN 2.4 g/dL (3.4-5.0); ALBUMIN/GLOBULIN RATIO 0.7 (1.0-1.7); CALCIUM 8.9 mg/dL (8.5-10.1); CREATININE 0.8 mg/dL (0.6-1.0); GFR 70.7; POTASSIUM 4.6 mmol/L (3.5-5.1); TOTAL BILIRUBIN 0.1 mg/dL (0.2-1.0); TOTAL PROTEIN 5.8 g/dL (6.4-8.2)
[2020-07-10 06:25] LABS: VAL ACID 49 mcg/mL (50-100)
[2020-07-10 06:52] LABS: % ATYL 5 % (0-0); % BASOS 1 % (0-3); % EOS 5 % (0-5); % LYMPHS 27 % (24-48); % MONOS 16 % (0-10); % MYELOS 1 % (0-0); % SEGS 45 % (35-66)
[2020-07-10 06:53] LABS: PLT ESTIMATE ADEQUATE (ADEQUATE)
[2020-07-10 06:54] LABS: STOMATOCYTES PRESENT
[2020-07-10] MEDS: MEMANTINE 10 MG TABLET. PO SCH ×2 (08:36→20:57)
[2020-07-10] MEDS: DIVALPROEX 125 MG CAP.SPRINK PO SCH ×2 (08:36→20:56)
[2020-07-10] MEDS: FUROSEMIDE 20 MG TABLET PO SCH (08:36)
[2020-07-10] MEDS: prednisoLONE ACETATE 1% OPHTH SUSPENSION 5ML BOTTLE. OD SCH (08:44)
--- NOTE | 2020-07-10 14:18 | NUR ---
WEEKLY ACTIVITY THERAPY NOTE Date of Admission: 07/01/2020 Date of AT Assessment: 07/03/20 Precipitating behaviors that initiated intake and admission: hallucinating, grandiose, manic Goal aimed: increase time management and stress management/relaxation skills Initial Goal: Pt will participate in at least three individual or group Activity Therapy sessions before discharge. Weekly progress towards goal: on track 0/3 Group participation level: zero Weekly highlights: arrived on unit Behaviors observed: in secured hallway yelling out often earlier in the week, more controlled as the week has gone on Plan: no change to goal Beneficial adaptations:
[2020-07-10 15:32] VITALS: BP 137/82
--- NOTE | 2020-07-10 15:45 | NUR ---
Patient is in her room at time of assessment. Patient is calm and cooperative. Patient takes medications whole with no problems. Patient is not yelling and screaming today and is not disrobing. Patient is much more cooperative and does not require any interventions today. Patient still garbled speech. No complaints from patient and no further concerns.
[2020-07-10] MEDS: traZODone 100 MG TABLET. PO PRN (20:54)
[2020-07-10] MEDS: LEVOTHYROXINE 50 MCG TABLET PO SCH (20:56)
[2020-07-10] MEDS: PSYLLIUM SEED (WITH SUGAR) PACKET. PO SCH (20:56)
[2020-07-10] MEDS: cloZAPine 100 MG TABLET PO SCH (20:56)
[2020-07-10] MEDS: ESTRADIOL 0.01% VAGINAL CREAM 42.5GM TUBE. VG SCH (20:57)
[2020-07-10] MEDS: MIRTAZAPINE 7.5 MG TABLET. PO SCH (20:57)
--- NOTE | 2020-07-10 21:58 | PDOC ---
Exam Note: Julian Note: Please also refer to the separate dictated note~for this date of service dictated separately.~Patient seen individually. Discussed the patient with Nursing staff reviewed the chart.~Reviewed interim history and current functioning. Reviewed vital signs,~Labs/ Radiology~and current medications noted below. Continue current treatment with the changes noted in the dictated addendum note Assessment: Vital Signs/I&O: Vital Signs Date Time Temp Pulse Resp B/P (MAP) Pulse Ox O2 Delivery O2 Flow Rate FiO2 07/10/20 15:32 98.1 105 20 137/82 (100) 98 Room Air I & O 07/09/20 07/09/20 07/10/20 14:59 22:59 06:59 Intake Total 960 ml 720 ml Balance 960 ml 720 ml Labs: Laboratory Tests Test 07/10/20 05:55 White Blood Count 5.8 x10^3/uL (4.0-11.0) Red Blood Count 3.81 x10^6/uL (3.50-5.40) Hemoglobin 10.7 g/dL (12.0-15.5) L Hematocrit 33.1 % (36.0-47.0) L Mean Corpuscular Volume 87 fL (79-100) Mean Corpuscular Hemoglobin 28 pg (25-35) Mean Corpuscular Hemoglobin Concent 32 g/dL (31-37) Red Cell Distribution Width 16.3 % (11.5-14.5) H Platelet Count 173 x10^3/uL (140-400) Neutrophils (%) (Auto) 42 % (31-73) Lymphocytes (%) (Auto) 33 % (24-48) Monocytes (%) (Auto) 19 % (0-9) H Eosinophils (%) (Auto) 6 % (0-3) H Basophils (%) (Auto) 1 % (0-3) Neutrophils # (Auto) 2.4 x10^3uL (1.8-7.7) Lymphocytes # (Auto) 1.9 x10^3/uL (1.0-4.8) Monocytes # (Auto) 1.1 x10^3/uL (0.0-1.1) Eosinophils # (Auto) 0.3 x10^3/uL (0.0-0.7) Basophils # (Auto) 0.0 x10^3/uL (0.0-0.2) Segmented Neutrophils % 45 % (35-66) Lymphocytes % 27 % (24-48) Atypical Lymphocytes % (Manual) 5 % (0-0) H Monocytes % 16 % (0-10) H Eosinophils % 5 % (0-5) Basophils % 1 % (0-3) Myelocytes % 1 % (0-0) H Platelet Estimate Adequate (ADEQUATE) Stomatocytes Present Sodium Level 144 mmol/L (136-145) Potassium Level 4.6 mmol/L (3.5-5.1) Chloride Level 108 mmol/L (98-107) H Carbon Dioxide Level 32 mmol/L (21-32) Anion Gap 4 (6-14) L Blood Urea Nitrogen 26 mg/dL (7-20) H Creatinine 0.8 mg/dL (0.6-1.0) Estimated GFR (Cockcroft-Gault) 70.7 BUN/Creatinine Ratio 33 (6-20) H Glucose Level 105 mg/dL (70-99) H Calcium Level 8.9 mg/dL (8.5-10.1) Total Bilirubin 0.1 mg/dL (0.2-1.0) L Aspartate Amino Transferase (AST) 21 U/L (15-37) Alanine Aminotransferase (ALT) 21 U/L (14-59) Alkaline Phosphatase 82 U/L (46-116) Total Protein 5.8 g/dL (6.4-8.2) L Albumin 2.4 g/dL (3.4-5.0) L Albumin/Globulin Ratio 0.7 (1.0-1.7) L Valproic Acid Level 49 mcg/mL (50-100) L Valproic Acid Last Dose Date 07/09/2020 Valproic Acid Last Dose Time 2100 Current Medications: Meds: Current Medications Medications (Trade) Dose Ordered Sig/Bora Route PRN Reason Start Time Stop Time Status Last Admin Dose Admin Clozapine (Clozaril) 175 mg HS PO 07/10/20 21:00 07/10/20 20:56 Divalproex Sodium (Depakote Sprinkles) 500 mg BID PO 07/10/20 21:00 07/10/20 20:56 I have reviewed the current psychotropics carefully including drug interactions. Risk benefit ratio favors no change other than as noted in my dictated progress note. 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
--- NOTE | 2020-07-10 22:40 | NUR ---
Pt is much calmer and interactive this evening. Pt sitting in the group room watching TV and talking with this RN about current events. Pt compliant with whole medications.
[2020-07-11] MEDS: traMADol 50 MG TABLET PO PRN (02:45)
[2020-07-11 05:34] VITALS: BP 113/68
--- NOTE | 2020-07-11 08:17 | PDOC ---
Exam Note: Julian Note: This note is a late entry for 07/08/2020 covers elements not covered in my initial note. Subjective: The patient was seen face to face in the evening of 07/08/2020 with Stacie MUÑOZ, discussed and reviewed the chart. The patient slept 6 hours previous night. She does respond to the IM Ativan. She has had some outbursts and some itching of her head area and we will use Benadryl p.r.n. to monitor this. Review of Systems: No CV, , pulmonary, eye, ENT system symptoms on review. Mental Status Exam: The patient is oriented to herself and situation. Speech is coherent, at times rapid, other times she is sedated. Abstraction is fair. Computation is impaired. Language function is intact. Mood and affect withdrawn. Laboratory Data: Reviewed. Impression: Schizoaffective disorder bipolar type, manic with psychotic features. Anxiety disorder unspecified. Impulse control disorder unspecified. Plan: Use Benadryl 25 mg q.4h. p.r.n. itching, max 75 mg in 24 hours. Continue rest of the psychotropics unchanged. Continue to increase Clozaril. Adjust the Depakote to reach therapeutic level. Assessment: Vital Signs/I&O: Vital Signs Date Time Temp Pulse Resp B/P (MAP) Pulse Ox O2 Delivery O2 Flow Rate FiO2 07/11/20 05:34 97.5 101 16 113/68 (83) 93 07/10/20 15:32 Room Air I & O 07/10/20 07/10/20 07/11/20 14:59 22:59 06:59 Intake Total 1160 ml 1080 ml Balance 1160 ml 1080 ml Current Medications: Meds: Current Medications Medications (Trade) Dose Ordered Sig/Bora Route PRN Reason Start Time Stop Time Status Last Admin Dose Admin Diclofenac Sodium (Voltaren) 1 barbara PRN QID PRN TP MUSCLE PAIN 07/01/20 15:00 Divalproex Sodium (Depakote Sprinkles) 375 mg BID PO 07/01/20 21:00 07/10/20 14:23 DC 07/10/20 08:36 Docusate Sodium (Colace) 100 mg PRN BID PRN PO HARD STOOLS 07/01/20 15:00 07/04/20 19:14 Estradiol (Estrace) 1 barbara QMTH VG 07/03/20 16:00 07/06/20 17:44 DC Fluvoxamine Maleate (Luvox) 25 mg HS PO 07/01/20 21:00 07/02/20 09:40 DC 07/01/20 20:22 Furosemide (Lasix) 20 mg DAILY PO 07/02/20 09:00 07/10/20 08:36 Levothyroxine Sodium (Synthroid) 50 mcg HS PO 07/01/20 21:00 07/10/20 20:56 Memantine (Namenda) 10 mg BID PO 07/01/20 21:00 07/10/20 20:57 Mirtazapine (Remeron) 7.5 mg QHS PO 07/01/20 21:00 07/10/20 20:57 Olanzapine (ZyPREXA ZYDIS) 5 mg PRN BID PRN PO ANXIETY / AGITATION 07/01/20 15:00 07/02/20 09:40 DC 07/01/20 23:27 Artificial Tears (Refresh Classic) 1 drop PRN TID PRN OU DRY EYE 07/01/20 15:00 Prednisolone Acetate (Pred Forte) 1 drop DAILY OD 07/02/20 09:00 07/10/20 08:44 Tramadol HCl (Ultram) 50 mg PRN Q8HRS PRN PO PAIN 07/01/20 15:00 07/11/20 02:45 Trazodone HCl (Desyrel) 100 mg PRN QHS PRN PO INSOMNIA, MAY REPEAT X1 07/01/20 15:00 07/10/20 20:54 Ziprasidone (Geodon Im) 20 mg PRN BID PRN IM ANXIETY / AGITATION 07/01/20 15:00 07/02/20 10:56 DC 07/01/20 21:53 Guaifenesin/ Codeine Phosphate (Robitussin Ac) 5 ml PRN Q4HRS PRN PO COUGH 07/01/20 17:45 Al Hydroxide/Mg Hydroxide (Mylanta Plus Xs) 15 ml PRN Q2HR PRN PO DYSPEPSIA 07/01/20 17:45 Magnesium Hydroxide (Milk Of Magnesia) 2,400 mg PRN Q4HRS PRN PO CONSTIPATION 07/01/20 17:45 07/03/20 22:04 Olanzapine (ZyPREXA ZYDIS) 5 mg PRN Q2HRS PRN PO ANXIETY / AGITATION 07/02/20 09:45 07/05/20 13:30 Clozapine (Clozaril) 150 mg HS PO 07/02/20 21:00 07/10/20 14:23 DC 07/09/20 20:06 Ziprasidone (Geodon Im) 40 mg DAILY IM 07/02/20 11:15 07/04/20 17:18 DC 07/02/20 11:15 Lorazepam (Ativan Inj) 0.5 mg DAILY IM 07/03/20 14:30 07/03/20 19:35 DC 07/03/20 15:05 Lorazepam (Ativan Inj) 0.5 mg BID IM 07/03/20 21:00 07/04/20 17:18 DC 07/03/20 22:04 Lorazepam (Ativan Inj) 1 mg 1X ONCE IM 07/05/20 18:45 07/05/20 18:46 DC 07/05/20 20:46 Lorazepam (Ativan Inj) 1 mg DAILY IM 07/06/20 09:00 07/09/20 07:55 Psyllium Hydrophilic Mucilloid (Metamucil) 1 pkt HS PO 07/05/20 21:30 07/10/20 20:56 Estradiol (Estrace) 1 barbara QMTH@2100 VG 07/06/20 21:00 Multi-Ingred Cream/Lotion/Oil/ Oint (Hydrocerin) 1 barbara PRN Q1HR PRN TP DRY SKIN / SCALING 07/08/20 12:30 Diphenhydramine HCl (Benadryl) 25 mg PRN Q4HRS PRN PO ITCHING 07/08/20 18:00 07/09/20 21:44 Clozapine (Clozaril) 175 mg HS PO 07/10/20 21:00 07/10/20 20:56 Divalproex Sodium (Depakote Sprinkles) 500 mg BID PO 07/10/20 21:00 07/10/20 20:56 Current Medications Medications (Trade) Dose Ordered Sig/Bora Route PRN Reason Start Time Stop Time Status Last Admin Dose Admin Clozapine (Clozaril) 175 mg HS PO 07/10/20 21:00 07/10/20 20:56 Divalproex Sodium (Depakote Sprinkles) 500 mg BID PO 07/10/20 21:00 07/10/20 20:56 I have reviewed the current psychotropics carefully including drug interactions. Risk benefit ratio favors no change other than as noted in my dictated progress note. Diagnosis: Problems: (1) Schizoaffective disorder, bipolar type (2) Impulse control disorder, unspecified (3) Anxiety disorder, unspecified (4) Bipolar affective, manic, severe w/ psych KIERSTEN WATT MD Jul 11, 2020 08:17
[2020-07-11] MEDS: FUROSEMIDE 20 MG TABLET PO SCH (09:55)
[2020-07-11] MEDS: DIVALPROEX 125 MG CAP.SPRINK PO SCH ×2 (09:56→20:33)
[2020-07-11] MEDS: MEMANTINE 10 MG TABLET. PO SCH ×2 (09:56→20:34)
[2020-07-11] MEDS: prednisoLONE ACETATE 1% OPHTH SUSPENSION 5ML BOTTLE. OD SCH (09:57)
--- NOTE | 2020-07-11 11:27 | TX PLAN ---
Interdisciplinary Tx Plan Admission Information Jul 01, 2020 at 14:47 Legal Status (on Admission): Voluntary DPOA/Guardian Name: Hardik Smith Contact Other Contact Name: Joselito Other Contact Verified Code Status: Full Code Allergies: Coded Allergies: Benzodiazepines (Verified Allergy, Intermediate, Unknown, 12/29/17) clonazepam (Verified Allergy, Intermediate, Unknown, 12/29/17) lorazepam (Verified Allergy, Intermediate, Unknown, 12/29/17) lithium (Verified Allergy, Unknown, 03/20/20) Diagnoses Primary Diagnosis: Schizoaffective D/O, Bipolar type Reasons for Admission: Sig. Change Sleep, Hallucinations, Suspicious/paranoid, Poor impulse control Problem in Patient's Words: According to the intake, pt is manic, having insomnia, outbursts, throwing coffee, grandiose and hallucinating Problems Active Problems: amita yelling out sexually inappropriate Inactive Problems: medication compliant Pt Strengths/Limitations Ability for [place]: Poor Cognitive Functioning/Ability: Fair Communication Skills/Ability: Fair Financial Resources: Good Insight/Judgement: Poor Intellectual Ability: Fair Physical Health: Fair Social Skills: Poor Stability in Family: Good Stability in School/Work: Poor Verbal Skills: Fair Discharge Criteria Discharge Criteria: No need for close observ., Adequate arrangements @DC, Improved behavior, Improved mood/thought Preliminary Discharge Plan Preliminary DC Plan: Current Living Arrange. Special Precautions Fall Risk: Low Initial D/C Plan Pt to return to [facility] Identified Discharge Needs: At this time, it is unknown if pt will return to [facility] or not. Currently Utilized Resources Currently Utilized Resources/P: Primary Care Physician Identified Problems/Hx/Goals Objectives/Short-Term Goals Short Term Goals: Dec. Anxiety/Panic, Dec. Hallucination/Delus, Dec. Outbursts, Medication Stabilization, Monitor Med Effects, Promote Coping Skill Short Term Goals in Patient's: N/A Interventions/Frequency Staff Interventions/Frequency&: Psychiatrist to assess pt at least 3x per week for medication management. Social Work to assess pt at least 2x per week for barriers to care and discharge planning goals. Nursing to assess medication effects, behavioral management and completion of 15 minute checks daily. Encourage group participation in activities (if applicable) or 1:1 engagement based off activity dept goals. 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 Education: Pt completed 12th grade (High school); the continued on to [employer]. Community Follow-up Primary Care Physician Referral for psychiatry follow-up Treatment Plan Explained Patient/Clinical Psychologist Private Practice had this treatment plan explained to him/her as indicated by the signature below and has been given the opportunity to ask questions and make suggestions: Date: Patient/Clinical Psychologist Private Practice Signature: Patient/Clinical Psychologist Private Practice Decline: No ( is very involved within pt care.) Status Update Update This is pt 2nd Interdisciplinary Treatment Team, as the first was held on Friday07/03/2020. Pt continues to be somewhat manic, yelling out intermittently, pressured speech and impulsivity. Pt did begin to start groups yesterday with moderate engagement. Pt was restarted on Depakote 375mg BID with a VPA of 49. Pt will receive an increase in Depakote to 500mg BID with labs and levels in 3 days. SW to follow up with pt family and [facility] re: pt disc harge plans. ELOS 10-14 days. WILDA ROONEY Jul 11, 2020 11:27
--- NOTE | 2020-07-11 14:14 | NUR ---
Nursing note: This AM pt went back to her room after breakfast to see another pt in her room. Pt immediately became angry and began screaming and cursing at the other pt and at staff went we were attempting to redirect her and get the other pt out of her room. Pt remained in her room for the rest of the morning. She was compliant with her meds whole and cooperative with her assessment. Pt was still very irritable and when asked about having any pain, pt began screaming "Yes! I'm always in a lot of pain!" Pt refused any PRN pain medications/interventions and continued to scream and curse at me. She has been calmer this afternoon and remains in her room at this time. Will continue to monitor.
[2020-07-11 15:47] VITALS: BP 111/66
--- NOTE | 2020-07-11 16:11 | NUR ---
ROSALINE returned call to [facility], [facility] at [facility] to discuss pt. ROSALINE informed [facility] on how pt is doing and her continued decrease in amita. [facility] and ROSALINE discussed if pt would return to them or to [facility]; in which [facility] reports that they will be accepting pt back as [facility] is still not able to accept her and the family prefers the Post Acute unit at this time. ROSALINE will make sure to send updated notes to [facility] to have them reviewed re: pt behaviors and changes. ROSALINE will continue to have all parties involved updated.
[2020-07-11] MEDS: PSYLLIUM SEED (WITH SUGAR) PACKET. PO SCH (20:34)
[2020-07-11] MEDS: LEVOTHYROXINE 50 MCG TABLET PO SCH (20:34)
[2020-07-11] MEDS: MIRTAZAPINE 7.5 MG TABLET. PO SCH (20:34)
[2020-07-11] MEDS: cloZAPine 100 MG TABLET PO SCH (20:34)
--- NOTE | 2020-07-11 21:17 | PDOC ---
Exam Note: Julian Note: Please also refer to the separate dictated note~for this date of service dictated separately.~Patient seen individually. Discussed the patient with Nursing staff reviewed the chart.~Reviewed interim history and current functioning. Reviewed vital signs,~Labs/ Radiology~and current medications noted below. Continue current treatment with the changes noted in the dictated addendum note Assessment: Vital Signs/I&O: Vital Signs Date Time Temp Pulse Resp B/P (MAP) Pulse Ox O2 Delivery O2 Flow Rate FiO2 07/11/20 15:47 98.7 105 20 111/66 (81) 94 07/10/20 15:32 Room Air I & O 07/10/20 07/10/20 07/11/20 15:00 23:00 07:00 Intake Total 1160 ml 1080 ml Balance 1160 ml 1080 ml Current Medications: Meds: Current Medications Medications (Trade) Dose Ordered Sig/Bora Route PRN Reason Start Time Stop Time Status Last Admin Dose Admin Diclofenac Sodium (Voltaren) 1 barbara PRN QID PRN TP MUSCLE PAIN 07/01/20 15:00 Divalproex Sodium (Depakote Sprinkles) 375 mg BID PO 07/01/20 21:00 07/10/20 14:23 DC 07/10/20 08:36 Docusate Sodium (Colace) 100 mg PRN BID PRN PO HARD STOOLS 07/01/20 15:00 07/04/20 19:14 Estradiol (Estrace) 1 barbaar QMTH VG 07/03/20 16:00 07/06/20 17:44 DC Fluvoxamine Maleate (Luvox) 25 mg HS PO 07/01/20 21:00 07/02/20 09:40 DC 07/01/20 20:22 Furosemide (Lasix) 20 mg DAILY PO 07/02/20 09:00 07/11/20 09:55 Levothyroxine Sodium (Synthroid) 50 mcg HS PO 07/01/20 21:00 07/11/20 20:34 Memantine (Namenda) 10 mg BID PO 07/01/20 21:00 07/11/20 20:34 Mirtazapine (Remeron) 7.5 mg QHS PO 07/01/20 21:00 07/11/20 20:34 Olanzapine (ZyPREXA ZYDIS) 5 mg PRN BID PRN PO ANXIETY / AGITATION 07/01/20 15:00 07/02/20 09:40 DC 07/01/20 23:27 Artificial Tears (Refresh Classic) 1 drop PRN TID PRN OU DRY EYE 07/01/20 15:00 Prednisolone Acetate (Pred Forte) 1 drop DAILY OD 07/02/20 09:00 07/11/20 09:57 Tramadol HCl (Ultram) 50 mg PRN Q8HRS PRN PO PAIN 07/01/20 15:00 07/11/20 02:45 Trazodone HCl (Desyrel) 100 mg PRN QHS PRN PO INSOMNIA, MAY REPEAT X1 07/01/20 15:00 07/10/20 20:54 Ziprasidone (Geodon Im) 20 mg PRN BID PRN IM ANXIETY / AGITATION 07/01/20 15:00 07/02/20 10:56 DC 07/01/20 21:53 Guaifenesin/ Codeine Phosphate (Robitussin Ac) 5 ml PRN Q4HRS PRN PO COUGH 07/01/20 17:45 Al Hydroxide/Mg Hydroxide (Mylanta Plus Xs) 15 ml PRN Q2HR PRN PO DYSPEPSIA 07/01/20 17:45 Magnesium Hydroxide (Milk Of Magnesia) 2,400 mg PRN Q4HRS PRN PO CONSTIPATION 07/01/20 17:45 07/03/20 22:04 Olanzapine (ZyPREXA ZYDIS) 5 mg PRN Q2HRS PRN PO ANXIETY / AGITATION 07/02/20 09:45 07/05/20 13:30 Clozapine (Clozaril) 150 mg HS PO 07/02/20 21:00 07/10/20 14:23 DC 07/09/20 20:06 Ziprasidone (Geodon Im) 40 mg DAILY IM 07/02/20 11:15 07/04/20 17:18 DC 07/02/20 11:15 Lorazepam (Ativan Inj) 0.5 mg DAILY IM 07/03/20 14:30 07/03/20 19:35 DC 07/03/20 15:05 Lorazepam (Ativan Inj) 0.5 mg BID IM 07/03/20 21:00 07/04/20 17:18 DC 07/03/20 22:04 Lorazepam (Ativan Inj) 1 mg 1X ONCE IM 07/05/20 18:45 07/05/20 18:46 DC 07/05/20 20:46 Lorazepam (Ativan Inj) 1 mg DAILY IM 07/06/20 09:00 07/11/20 10:08 Psyllium Hydrophilic Mucilloid (Metamucil) 1 pkt HS PO 07/05/20 21:30 07/11/20 20:34 Estradiol (Estrace) 1 barbara QMTH@2100 VG 07/06/20 21:00 Multi-Ingred Cream/Lotion/Oil/ Oint (Hydrocerin) 1 barbara PRN Q1HR PRN TP DRY SKIN / SCALING 07/08/20 12:30 Diphenhydramine HCl (Benadryl) 25 mg PRN Q4HRS PRN PO ITCHING 07/08/20 18:00 07/09/20 21:44 Clozapine (Clozaril) 175 mg HS PO 07/10/20 21:00 07/11/20 20:34 Divalproex Sodium (Depakote Sprinkles) 500 mg BID PO 07/10/20 21:00 07/11/20 20:33 I have reviewed the current psychotropics carefully including drug interactions. Risk benefit ratio favors no change other than as noted in my dictated progress note. Diagnosis: Problems: (1) Schizoaffective disorder, bipolar type (2) Impulse control disorder, unspecified (3) Anxiety disorder, unspecified (4) Bipolar affective, manic, severe w/ psych KIERSTEN WATT MD Jul 11, 2020 21:17
--- NOTE | 2020-07-11 23:03 | NUR ---
Patient spent the evening watching TV in the day room with peers. She asked staff for many snacks and drinks and she was upset when nurse told her she could not have anything else to drink tonight. Patient has been calm, is compliant with her medications and cooperative with staff most of the time. At one point a male peer entered her room and patient became very irritable and demanded that staff remove him. Peer was redirected to another area and patient calmed down.
[2020-07-12 06:11] VITALS: BP 160/94
--- NOTE | 2020-07-12 08:21 | PDOC ---
Exam Note: Julian Note: This note is a late entry for 07/10/2020 covers elements not covered in my initial note. Subjective: The patient was seen face to face in the morning of 07/10/2020 for a treatment team meeting with Chiara Lerner, Leia Baez and Barbi (social secretary), Yasmin Guerrero, activity therapy and Stacie MUÑOZ, discussed and reviewed the chart. The patient slept 5-1/4 hours previous night. Overall she has done better today, less screaming, less fidgety. Valproic acid level 49. Absolute neutrophil count is 2400. Review of Systems: No CV, , pulmonary, eye, ENT system symptoms on review. Mental Status Exam: The patient is alert and oriented. Speech is coherent, less pressured. Abstraction is fair. Computation is impaired. Language function is intact. Mood and affect less anxious, labile. Laboratory Data: Reviewed. Impression: Bipolar 1 disorder mixed with psychotic features. Anxiety disorder unspecified. Plan: Increase Clozaril from 150 mg h.s. to 175mg h.s. Depakote is 375 mg b.i.d. subtherapeutic level at 49. We will increase to 500 mg b.i.d. Check CBC , CMP, valproic acid level in 3 days. Continue rest unchanged. Assessment: Vital Signs/I&O: Vital Signs Date Time Temp Pulse Resp B/P (MAP) Pulse Ox O2 Delivery O2 Flow Rate FiO2 07/12/20 06:11 98.0 94 16 160/94 (116) 95 07/10/20 15:32 Room Air I & O 07/11/20 07/11/20 07/12/20 15:00 23:00 07:00 Intake Total 1380 ml 1120 ml Balance 1380 ml 1120 ml Current Medications: Meds: Current Medications Medications (Trade) Dose Ordered Sig/Bora Route PRN Reason Start Time Stop Time Status Last Admin Dose Admin Diclofenac Sodium (Voltaren) 1 barbara PRN QID PRN TP MUSCLE PAIN 07/01/20 15:00 Divalproex Sodium (Depakote Sprinkles) 375 mg BID PO 07/01/20 21:00 07/10/20 14:23 DC 07/10/20 08:36 Docusate Sodium (Colace) 100 mg PRN BID PRN PO HARD STOOLS 07/01/20 15:00 2/16/21 19:14 Estradiol (Estrace) 1 barbara QMTH VG 07/03/20 16:00 07/06/20 17:44 DC Fluvoxamine Maleate (Luvox) 25 mg HS PO 07/01/20 21:00 07/02/20 09:40 DC 07/01/20 20:22 Furosemide (Lasix) 20 mg DAILY PO 07/02/20 09:00 07/11/20 09:55 Levothyroxine Sodium (Synthroid) 50 mcg HS PO 07/01/20 21:00 07/11/20 20:34 Memantine (Namenda) 10 mg BID PO 07/01/20 21:00 07/11/20 20:34 Mirtazapine (Remeron) 7.5 mg QHS PO 07/01/20 21:00 07/11/20 20:34 Olanzapine (ZyPREXA ZYDIS) 5 mg PRN BID PRN PO ANXIETY / AGITATION 07/01/20 15:00 07/02/20 09:40 DC 07/01/20 23:27 Artificial Tears (Refresh Classic) 1 drop PRN TID PRN OU DRY EYE 07/01/20 15:00 Prednisolone Acetate (Pred Forte) 1 drop DAILY OD 07/02/20 09:00 07/11/20 09:57 Tramadol HCl (Ultram) 50 mg PRN Q8HRS PRN PO PAIN 07/01/20 15:00 07/11/20 02:45 Trazodone HCl (Desyrel) 100 mg PRN QHS PRN PO INSOMNIA, MAY REPEAT X1 07/01/20 15:00 07/10/20 20:54 Ziprasidone (Geodon Im) 20 mg PRN BID PRN IM ANXIETY / AGITATION 07/01/20 15:00 07/02/20 10:56 DC 07/01/20 21:53 Guaifenesin/ Codeine Phosphate (Robitussin Ac) 5 ml PRN Q4HRS PRN PO COUGH 07/01/20 17:45 Al Hydroxide/Mg Hydroxide (Mylanta Plus Xs) 15 ml PRN Q2HR PRN PO DYSPEPSIA 07/01/20 17:45 Magnesium Hydroxide (Milk Of Magnesia) 2,400 mg PRN Q4HRS PRN PO CONSTIPATION 07/01/20 17:45 07/03/20 22:04 Olanzapine (ZyPREXA ZYDIS) 5 mg PRN Q2HRS PRN PO ANXIETY / AGITATION 07/02/20 09:45 07/05/20 13:30 Clozapine (Clozaril) 150 mg HS PO 07/02/20 21:00 07/10/20 14:23 DC 07/09/20 20:06 Ziprasidone (Geodon Im) 40 mg DAILY IM 07/02/20 11:15 07/04/20 17:18 DC 07/02/20 11:15 Lorazepam (Ativan Inj) 0.5 mg DAILY IM 07/03/20 14:30 07/03/20 19:35 DC 07/03/20 15:05 Lorazepam (Ativan Inj) 0.5 mg BID IM 07/03/20 21:00 07/04/20 17:18 DC 07/03/20 22:04 Lorazepam (Ativan Inj) 1 mg 1X ONCE IM 07/05/20 18:45 07/05/20 18:46 DC 07/05/20 20:46 Lorazepam (Ativan Inj) 1 mg DAILY IM 07/06/20 09:00 07/11/20 10:08 Psyllium Hydrophilic Mucilloid (Metamucil) 1 pkt HS PO 07/05/20 21:30 07/11/20 20:34 Estradiol (Estrace) 1 barbara QMTH@2100 VG 07/06/20 21:00 Multi-Ingred Cream/Lotion/Oil/ Oint (Hydrocerin) 1 barbara PRN Q1HR PRN TP DRY SKIN / SCALING 07/08/20 12:30 Diphenhydramine HCl (Benadryl) 25 mg PRN Q4HRS PRN PO ITCHING 07/08/20 18:00 07/09/20 21:44 Clozapine (Clozaril) 175 mg HS PO 07/10/20 21:00 07/11/20 20:34 Divalproex Sodium (Depakote Sprinkles) 500 mg BID PO 07/10/20 21:00 07/11/20 20:33 I have reviewed the current psychotropics carefully including drug interactions. Risk benefit ratio favors no change other than as noted in my dictated progress note. Diagnosis: Problems: (1) Schizoaffective disorder, bipolar type (2) Impulse control disorder, unspecified (3) Anxiety disorder, unspecified (4) Bipolar affective, manic, severe w/ psych KIERSTEN WATT MD Jul 12, 2020 08:21
[2020-07-12] MEDS: DIVALPROEX 125 MG CAP.SPRINK PO SCH ×2 (08:52→20:44)
[2020-07-12] MEDS: MEMANTINE 10 MG TABLET. PO SCH ×2 (08:52→20:44)
[2020-07-12] MEDS: FUROSEMIDE 20 MG TABLET PO SCH (08:52)
[2020-07-12] MEDS: prednisoLONE ACETATE 1% OPHTH SUSPENSION 5ML BOTTLE. OD SCH (08:53)
--- NOTE | 2020-07-12 08:55 | PDOC ---
Exam Note: Julian Note: This note is a late entry for 07/11/2020 covers elements not covered in my initial note. Subjective: The patient was seen face to face in the evening of 07/11/2020 with Renetta MUÑOZ, discussed and reviewed the chart. The patient slept 3-3/4 hours previous night. In the morning the patient did well but then a demented patient walked into her room and she lost it per nursing report. She was cursing at staff, threatening. Received IM Ativan 1 mg scheduled, then little bit later was better. I addressed the whole thing with her in the evening. She still minimized her role in this. Review of Systems: No CV, , pulmonary, eye, ENT system symptoms on review. Mental Status Exam: The patient is oriented to herself and situation. Speech is coherent, at times rapid at times. Abstraction is fair. Computation is impaired. Language function is intact. Mood and affect withdrawn. Laboratory Data: Reviewed. Impression: Schizoaffective disorder bipolar type, manic with psychotic features. Anxiety disorder unspecified. Impulse control disorder unspecified. Plan: No change from initial note. Assessment: Vital Signs/I&O: Vital Signs Date Time Temp Pulse Resp B/P (MAP) Pulse Ox O2 Delivery O2 Flow Rate FiO2 07/12/20 06:11 98.0 94 16 160/94 (116) 95 07/10/20 15:32 Room Air I & O 07/11/20 07/11/20 07/12/20 15:00 23:00 07:00 Intake Total 1380 ml 1120 ml Balance 1380 ml 1120 ml Current Medications: Meds: Current Medications Medications (Trade) Dose Ordered Sig/Bora Route PRN Reason Start Time Stop Time Status Last Admin Dose Admin Diclofenac Sodium (Voltaren) 1 barbara PRN QID PRN TP MUSCLE PAIN 07/01/20 15:00 Divalproex Sodium (Depakote Sprinkles) 375 mg BID PO 07/01/20 21:00 07/10/20 14:23 DC 07/10/20 08:36 Docusate Sodium (Colace) 100 mg PRN BID PRN PO HARD STOOLS 07/01/20 15:00 07/04/20 19:14 Estradiol (Estrace) 1 barbara QMTH VG 07/03/20 16:00 07/06/20 17:44 DC Fluvoxamine Maleate (Luvox) 25 mg HS PO 07/01/20 21:00 07/02/20 09:40 DC 07/01/20 20:22 Furosemide (Lasix) 20 mg DAILY PO 07/02/20 09:00 07/12/20 08:52 Levothyroxine Sodium (Synthroid) 50 mcg HS PO 07/01/20 21:00 07/11/20 20:34 Memantine (Namenda) 10 mg BID PO 07/01/20 21:00 07/12/20 08:52 Mirtazapine (Remeron) 7.5 mg QHS PO 07/01/20 21:00 07/11/20 20:34 Olanzapine (ZyPREXA ZYDIS) 5 mg PRN BID PRN PO ANXIETY / AGITATION 07/01/20 15:00 07/02/20 09:40 DC 07/01/20 23:27 Artificial Tears (Refresh Classic) 1 drop PRN TID PRN OU DRY EYE 07/01/20 15:00 Prednisolone Acetate (Pred Forte) 1 drop DAILY OD 07/02/20 09:00 07/12/20 08:53 Tramadol HCl (Ultram) 50 mg PRN Q8HRS PRN PO PAIN 07/01/20 15:00 07/11/20 02:45 Trazodone HCl (Desyrel) 100 mg PRN QHS PRN PO INSOMNIA, MAY REPEAT X1 07/01/20 15:00 07/10/20 20:54 Ziprasidone (Geodon Im) 20 mg PRN BID PRN IM ANXIETY / AGITATION 07/01/20 15:00 07/02/20 10:56 DC 07/01/20 21:53 Guaifenesin/ Codeine Phosphate (Robitussin Ac) 5 ml PRN Q4HRS PRN PO COUGH 07/01/20 17:45 Al Hydroxide/Mg Hydroxide (Mylanta Plus Xs) 15 ml PRN Q2HR PRN PO DYSPEPSIA 07/01/20 17:45 Magnesium Hydroxide (Milk Of Magnesia) 2,400 mg PRN Q4HRS PRN PO CONSTIPATION 07/01/20 17:45 07/03/20 22:04 Olanzapine (ZyPREXA ZYDIS) 5 mg PRN Q2HRS PRN PO ANXIETY / AGITATION 07/02/20 09:45 07/05/20 13:30 Clozapine (Clozaril) 150 mg HS PO 07/02/20 21:00 07/10/20 14:23 DC 07/09/20 20:06 Ziprasidone (Geodon Im) 40 mg DAILY IM 07/02/20 11:15 07/04/20 17:18 DC 07/02/20 11:15 Lorazepam (Ativan Inj) 0.5 mg DAILY IM 07/03/20 14:30 07/03/20 19:35 DC 07/03/20 15:05 Lorazepam (Ativan Inj) 0.5 mg BID IM 07/03/20 21:00 07/04/20 17:18 DC 07/03/20 22:04 Lorazepam (Ativan Inj) 1 mg 1X ONCE IM 07/05/20 18:45 07/05/20 18:46 DC 07/05/20 20:46 Lorazepam (Ativan Inj) 1 mg DAILY IM 07/06/20 09:00 07/11/20 10:08 Psyllium Hydrophilic Mucilloid (Metamucil) 1 pkt HS PO 07/05/20 21:30 07/11/20 20:34 Estradiol (Estrace) 1 barbara QMTH@2100 VG 07/06/20 21:00 Multi-Ingred Cream/Lotion/Oil/ Oint (Hydrocerin) 1 barbara PRN Q1HR PRN TP DRY SKIN / SCALING 07/08/20 12:30 Diphenhydramine HCl (Benadryl) 25 mg PRN Q4HRS PRN PO ITCHING 07/08/20 18:00 07/09/20 21:44 Clozapine (Clozaril) 175 mg HS PO 07/10/20 21:00 07/11/20 20:34 Divalproex Sodium (Depakote Sprinkles) 500 mg BID PO 07/10/20 21:00 07/12/20 08:52 I have reviewed the current psychotropics carefully including drug interactions. Risk benefit ratio favors no change other than as noted in my dictated progress note. Diagnosis: Problems: (1) Schizoaffective disorder, bipolar type (2) Impulse control disorder, unspecified (3) Anxiety disorder, unspecified (4) Bipolar affective, manic, severe w/ psych KIERSTEN WATT MD Jul 12, 2020 08:55
[2020-07-12 16:06] VITALS: BP 153/86
--- NOTE | 2020-07-12 18:09 | NUR ---
Nursing note: Pt has had a much better day today. She has been pleasant, med compliant and cooperative. Pt has spent most of the shift in her room, but will come to the dining room for meals. She has had no complaints this shift. Pt had a long phone conversation with her this afternoon that she reports was a good phone call. She is currently in the day room watching TV. Will continue to monitor.
[2020-07-12] MEDS: cloZAPine 100 MG TABLET PO SCH (20:43)
[2020-07-12] MEDS: PSYLLIUM SEED (WITH SUGAR) PACKET. PO SCH (20:43)
[2020-07-12] MEDS: MIRTAZAPINE 7.5 MG TABLET. PO SCH (20:44)
[2020-07-12] MEDS: LEVOTHYROXINE 50 MCG TABLET PO SCH (20:44)
--- NOTE | 2020-07-12 21:12 | PDOC ---
Exam Note: Julian Note: Please also refer to the separate dictated note~for this date of service dictated separately.~Patient seen individually. Discussed the patient with Nursing staff reviewed the chart.~Reviewed interim history and current functioning. Reviewed vital signs,~Labs/ Radiology~and current medications noted below. Continue current treatment with the changes noted in the dictated addendum note Assessment: Vital Signs/I&O: Vital Signs Date Time Temp Pulse Resp B/P (MAP) Pulse Ox O2 Delivery O2 Flow Rate FiO2 07/12/20 16:06 98.7 112 20 153/86 (108) 99 07/10/20 15:32 Room Air I & O 07/11/20 07/11/20 07/12/20 15:00 23:00 07:00 Intake Total 1380 ml 1120 ml Balance 1380 ml 1120 ml Current Medications: Meds: Current Medications Medications (Trade) Dose Ordered Sig/Bora Route PRN Reason Start Time Stop Time Status Last Admin Dose Admin Diclofenac Sodium (Voltaren) 1 barabra PRN QID PRN TP MUSCLE PAIN 07/01/20 15:00 Divalproex Sodium (Depakote Sprinkles) 375 mg BID PO 07/01/20 21:00 07/10/20 14:23 DC 07/10/20 08:36 Docusate Sodium (Colace) 100 mg PRN BID PRN PO HARD STOOLS 07/01/20 15:00 07/04/20 19:14 Estradiol (Estrace) 1 barbara QMTH VG 07/03/20 16:00 07/06/20 17:44 DC Fluvoxamine Maleate (Luvox) 25 mg HS PO 07/01/20 21:00 07/02/20 09:40 DC 07/01/20 20:22 Furosemide (Lasix) 20 mg DAILY PO 07/02/20 09:00 07/12/20 08:52 Levothyroxine Sodium (Synthroid) 50 mcg HS PO 07/01/20 21:00 07/12/20 20:44 Memantine (Namenda) 10 mg BID PO 07/01/20 21:00 07/12/20 20:44 Mirtazapine (Remeron) 7.5 mg QHS PO 07/01/20 21:00 07/12/20 20:44 Olanzapine (ZyPREXA ZYDIS) 5 mg PRN BID PRN PO ANXIETY / AGITATION 07/01/20 15:00 07/02/20 09:40 DC 07/01/20 23:27 Artificial Tears (Refresh Classic) 1 drop PRN TID PRN OU DRY EYE 07/01/20 15:00 Prednisolone Acetate (Pred Forte) 1 drop DAILY OD 07/02/20 09:00 07/12/20 08:53 Tramadol HCl (Ultram) 50 mg PRN Q8HRS PRN PO PAIN 07/01/20 15:00 07/11/20 02:45 Trazodone HCl (Desyrel) 100 mg PRN QHS PRN PO INSOMNIA, MAY REPEAT X1 07/01/20 15:00 07/10/20 20:54 Ziprasidone (Geodon Im) 20 mg PRN BID PRN IM ANXIETY / AGITATION 07/01/20 15:00 07/02/20 10:56 DC 07/01/20 21:53 Guaifenesin/ Codeine Phosphate (Robitussin Ac) 5 ml PRN Q4HRS PRN PO COUGH 07/01/20 17:45 Al Hydroxide/Mg Hydroxide (Mylanta Plus Xs) 15 ml PRN Q2HR PRN PO DYSPEPSIA 07/01/20 17:45 Magnesium Hydroxide (Milk Of Magnesia) 2,400 mg PRN Q4HRS PRN PO CONSTIPATION 07/01/20 17:45 07/03/20 22:04 Olanzapine (ZyPREXA ZYDIS) 5 mg PRN Q2HRS PRN PO ANXIETY / AGITATION 07/02/20 09:45 07/05/20 13:30 Clozapine (Clozaril) 150 mg HS PO 07/02/20 21:00 07/10/20 14:23 DC 07/09/20 20:06 Ziprasidone (Geodon Im) 40 mg DAILY IM 07/02/20 11:15 07/04/20 17:18 DC 07/02/20 11:15 Lorazepam (Ativan Inj) 0.5 mg DAILY IM 07/03/20 14:30 07/03/20 19:35 DC 07/03/20 15:05 Lorazepam (Ativan Inj) 0.5 mg BID IM 07/03/20 21:00 07/04/20 17:18 DC 07/03/20 22:04 Lorazepam (Ativan Inj) 1 mg 1X ONCE IM 07/05/20 18:45 07/05/20 18:46 DC 07/05/20 20:46 Lorazepam (Ativan Inj) 1 mg DAILY IM 07/06/20 09:00 07/11/20 10:08 Psyllium Hydrophilic Mucilloid (Metamucil) 1 pkt HS PO 07/05/20 21:30 07/12/20 20:43 Estradiol (Estrace) 1 barbara QMTH@2100 VG 07/06/20 21:00 Multi-Ingred Cream/Lotion/Oil/ Oint (Hydrocerin) 1 barbara PRN Q1HR PRN TP DRY SKIN / SCALING 07/08/20 12:30 Diphenhydramine HCl (Benadryl) 25 mg PRN Q4HRS PRN PO ITCHING 07/08/20 18:00 07/09/20 21:44 Clozapine (Clozaril) 175 mg HS PO 07/10/20 21:00 07/12/20 20:43 Divalproex Sodium (Depakote Sprinkles) 500 mg BID PO 07/10/20 21:00 07/12/20 20:44 I have reviewed the current psychotropics carefully including drug interactions. Risk benefit ratio favors no change other than as noted in my dictated progress note. Diagnosis: Problems: (1) Schizoaffective disorder, bipolar type (2) Impulse control disorder, unspecified (3) Anxiety disorder, unspecified (4) Bipolar affective, manic, severe w/ psych KIERSTEN WATT MD Jul 12, 2020 21:12
--- NOTE | 2020-07-12 22:38 | NUR ---
Pt located in the dayroom this evening watching TV. Pt calm, interactive and cooperative. Compliant with whole medications. No outbursts or yelling this evening.
[2020-07-13 05:14] VITALS: BP 116/70
[2020-07-13] MEDS: prednisoLONE ACETATE 1% OPHTH SUSPENSION 5ML BOTTLE. OD SCH (07:58)
[2020-07-13] MEDS: MEMANTINE 10 MG TABLET. PO SCH ×2 (07:58→20:11)
[2020-07-13] MEDS: FUROSEMIDE 20 MG TABLET PO SCH (07:58)
[2020-07-13] MEDS: DIVALPROEX 125 MG CAP.SPRINK PO SCH ×2 (07:58→20:11)
--- NOTE | 2020-07-13 08:45 | NUR ---
Nursing note: Pt in dining room for breakfast at time of AM med pass and assessment. She is pleasant, med compliant and cooperative. She denies having any pain at that time. She continues to be in the dining room socializing with peers. Will continue to monitor.
--- NOTE | 2020-07-13 08:45 | PDOC ---
Exam Note: Julian Note: This note is a late entry for 07/12/2020 covers elements not covered in my initial note. Subjective: The patient was seen face to face in the evening of 07/12/2020 with Renetta MUÑOZ, discussed and reviewed the chart. The patient slept 4-1/2 hours previous night. Overall she has had a good day today. No IM Ativan was given. She had a telephone conversation with her , did well. Review of Systems: No CV, , pulmonary, eye, ENT system symptoms on review. Mental Status Exam: The patient is oriented to herself and situation. Speech is coherent. Abstraction is fair. Computation is impaired. Language function is intact. Mood and affect is improved. No suicidal or homicidal ideation. Laboratory Data: Reviewed. Impression: Schizoaffective disorder bipolar type, manic with psychotic features. Anxiety disorder unspecified. Impulse control disorder unspecified. Plan: No change from initial note. Assessment: Vital Signs/I&O: Vital Signs Date Time Temp Pulse Resp B/P (MAP) Pulse Ox O2 Delivery O2 Flow Rate FiO2 07/13/20 05:14 97.3 88 18 116/70 (85) 95 07/10/20 15:32 Room Air I & O 0 07/12/20 07/12/20 07/13/20 15:00 23:00 07:00 Intake Total 1400 ml 1460 ml Balance 1400 ml 1460 ml Current Medications: Meds: Current Medications Medications (Trade) Dose Ordered Sig/Bora Route PRN Reason Start Time Stop Time Status Last Admin Dose Admin Diclofenac Sodium (Voltaren) 1 barbara PRN QID PRN TP MUSCLE PAIN 07/01/20 15:00 Divalproex Sodium (Depakote Sprinkles) 375 mg BID PO 07/01/20 21:00 07/10/20 14:23 DC 07/10/20 08:36 Docusate Sodium (Colace) 100 mg PRN BID PRN PO HARD STOOLS 07/01/20 15:00 07/04/20 19:14 Estradiol (Estrace) 1 barbara QMTH VG 07/03/20 16:00 07/06/20 17:44 DC Fluvoxamine Maleate (Luvox) 25 mg HS PO 07/01/20 21:00 07/02/20 09:40 DC 07/01/20 20:22 Furosemide (Lasix) 20 mg DAILY PO 07/02/20 09:00 07/13/20 07:58 Levothyroxine Sodium (Synthroid) 50 mcg HS PO 07/01/20 21:00 07/12/20 20:44 Memantine (Namenda) 10 mg BID PO 07/01/20 21:00 07/13/20 07:58 Mirtazapine (Remeron) 7.5 mg QHS PO 07/01/20 21:00 07/12/20 20:44 Olanzapine (ZyPREXA ZYDIS) 5 mg PRN BID PRN PO ANXIETY / AGITATION 07/01/20 15:00 07/02/20 09:40 DC 07/01/20 23:27 Artificial Tears (Refresh Classic) 1 drop PRN TID PRN OU DRY EYE 07/01/20 15:00 Prednisolone Acetate (Pred Forte) 1 drop DAILY OD 07/02/20 09:00 07/13/20 07:58 Tramadol HCl (Ultram) 50 mg PRN Q8HRS PRN PO PAIN 07/01/20 15:00 07/11/20 02:45 Trazodone HCl (Desyrel) 100 mg PRN QHS PRN PO INSOMNIA, MAY REPEAT X1 07/01/20 15:00 07/10/20 20:54 Ziprasidone (Geodon Im) 20 mg PRN BID PRN IM ANXIETY / AGITATION 07/01/20 15:00 07/02/20 10:56 DC 07/01/20 21:53 Guaifenesin/ Codeine Phosphate (Robitussin Ac) 5 ml PRN Q4HRS PRN PO COUGH 07/01/20 17:45 Al Hydroxide/Mg Hydroxide (Mylanta Plus Xs) 15 ml PRN Q2HR PRN PO DYSPEPSIA 07/01/20 17:45 Magnesium Hydroxide (Milk Of Magnesia) 2,400 mg PRN Q4HRS PRN PO CONSTIPATION 07/01/20 17:45 07/03/20 22:04 Olanzapine (ZyPREXA ZYDIS) 5 mg PRN Q2HRS PRN PO ANXIETY / AGITATION 07/02/20 09:45 07/05/20 13:30 Clozapine (Clozaril) 150 mg HS PO 07/02/20 21:00 07/10/20 14:23 DC 07/09/20 20:06 Ziprasidone (Geodon Im) 40 mg DAILY IM 07/02/20 11:15 07/04/20 17:18 DC 07/02/20 11:15 Lorazepam (Ativan Inj) 0.5 mg DAILY IM 07/03/20 14:30 07/03/20 19:35 DC 07/03/20 15:05 Lorazepam (Ativan Inj) 0.5 mg BID IM 07/03/20 21:00 07/04/20 17:18 DC 07/03/20 22:04 Lorazepam (Ativan Inj) 1 mg 1X ONCE IM 07/05/20 18:45 07/05/20 18:46 DC 07/05/20 20:46 Lorazepam (Ativan Inj) 1 mg DAILY IM 07/06/20 09:00 07/11/20 10:08 Psyllium Hydrophilic Mucilloid (Metamucil) 1 pkt HS PO 07/05/20 21:30 07/12/20 20:43 Estradiol (Estrace) 1 barbara QMTH@2100 VG 07/06/20 21:00 Multi-Ingred Cream/Lotion/Oil/ Oint (Hydrocerin) 1 barbara PRN Q1HR PRN TP DRY SKIN / SCALING 07/08/20 12:30 Diphenhydramine HCl (Benadryl) 25 mg PRN Q4HRS PRN PO ITCHING 07/08/20 18:00 07/09/20 21:44 Clozapine (Clozaril) 175 mg HS PO 07/10/20 21:00 07/12/20 20:43 Divalproex Sodium (Depakote Sprinkles) 500 mg BID PO 07/10/20 21:00 07/13/20 07:58 I have reviewed the current psychotropics carefully including drug interactions. Risk benefit ratio favors no change other than as noted in my dictated progress note. Diagnosis: Problems: (1) Bipolar affective, manic, severe w/ psych (2) Anxiety disorder, unspecified (3) Impulse control disorder, unspecified (4) Schizoaffective disorder, bipolar type KIERSTEN WATT MD Jul 13, 2020 08:45
[2020-07-13 15:25] VITALS: BP 145/66
[2020-07-13] MEDS: cloZAPine 100 MG TABLET PO SCH (20:11)
[2020-07-13] MEDS: PSYLLIUM SEED (WITH SUGAR) PACKET. PO SCH (20:11)
[2020-07-13] MEDS: MIRTAZAPINE 7.5 MG TABLET. PO SCH (20:11)
[2020-07-13] MEDS: LEVOTHYROXINE 50 MCG TABLET PO SCH (20:12)
[2020-07-13] MEDS: ESTRADIOL 0.01% VAGINAL CREAM 42.5GM TUBE. VG SCH (20:14)
--- NOTE | 2020-07-13 21:09 | PDOC ---
Exam Note: Julian Note: Please also refer to the separate dictated note~for this date of service dictated separately.~Patient seen individually. Discussed the patient with Nursing staff reviewed the chart.~Reviewed interim history and current functioning. Reviewed vital signs,~Labs/ Radiology~and current medications noted below. Continue current treatment with the changes noted in the dictated addendum note Assessment: Vital Signs/I&O: Vital Signs Date Time Temp Pulse Resp B/P (MAP) Pulse Ox O2 Delivery O2 Flow Rate FiO2 07/13/20 15:25 98.4 107 20 145/66 (92) 96 Room Air I & O 07/12/20 07/12/20 07/13/20 15:00 23:00 07:00 Intake Total 1400 ml 1460 ml Balance 1400 ml 1460 ml Current Medications: Meds: Current Medications Medications (Trade) Dose Ordered Sig/Bora Route PRN Reason Start Time Stop Time Status Last Admin Dose Admin Diclofenac Sodium (Voltaren) 1 barbara PRN QID PRN TP MUSCLE PAIN 07/01/20 15:00 Divalproex Sodium (Depakote Sprinkles) 375 mg BID PO 07/01/20 21:00 07/10/20 14:23 DC 07/10/20 08:36 Docusate Sodium (Colace) 100 mg PRN BID PRN PO HARD STOOLS 07/01/20 15:00 07/04/20 19:14 Estradiol (Estrace) 1 barbara QMTH VG 07/03/20 16:00 07/06/20 17:44 DC Fluvoxamine Maleate (Luvox) 25 mg HS PO 07/01/20 21:00 07/02/20 09:40 DC 07/01/20 20:22 Furosemide (Lasix) 20 mg DAILY PO 07/02/20 09:00 07/13/20 07:58 Levothyroxine Sodium (Synthroid) 50 mcg HS PO 07/01/20 21:00 07/13/20 20:12 Memantine (Namenda) 10 mg BID PO 07/01/20 21:00 07/13/20 20:11 Mirtazapine (Remeron) 7.5 mg QHS PO 07/01/20 21:00 07/13/20 20:11 Olanzapine (ZyPREXA ZYDIS) 5 mg PRN BID PRN PO ANXIETY / AGITATION 07/01/20 15:00 07/02/20 09:40 DC 07/01/20 23:27 Artificial Tears (Refresh Classic) 1 drop PRN TID PRN OU DRY EYE 07/01/20 15:00 Prednisolone Acetate (Pred Forte) 1 drop DAILY OD 07/02/20 09:00 07/13/20 07:58 Tramadol HCl (Ultram) 50 mg PRN Q8HRS PRN PO PAIN 07/01/20 15:00 07/11/20 02:45 Trazodone HCl (Desyrel) 100 mg PRN QHS PRN PO INSOMNIA, MAY REPEAT X1 07/01/20 15:00 07/10/20 20:54 Ziprasidone (Geodon Im) 20 mg PRN BID PRN IM ANXIETY / AGITATION 07/01/20 15:00 07/02/20 10:56 DC 07/01/20 21:53 Guaifenesin/ Codeine Phosphate (Robitussin Ac) 5 ml PRN Q4HRS PRN PO COUGH 07/01/20 17:45 Al Hydroxide/Mg Hydroxide (Mylanta Plus Xs) 15 ml PRN Q2HR PRN PO DYSPEPSIA 07/01/20 17:45 Magnesium Hydroxide (Milk Of Magnesia) 2,400 mg PRN Q4HRS PRN PO CONSTIPATION 07/01/20 17:45 07/03/20 22:04 Olanzapine (ZyPREXA ZYDIS) 5 mg PRN Q2HRS PRN PO ANXIETY / AGITATION 07/02/20 09:45 07/05/20 13:30 Clozapine (Clozaril) 150 mg HS PO 07/02/20 21:00 07/10/20 14:23 DC 07/09/20 20:06 Ziprasidone (Geodon Im) 40 mg DAILY IM 07/02/20 11:15 07/04/20 17:18 DC 07/02/20 11:15 Lorazepam (Ativan Inj) 0.5 mg DAILY IM 07/03/20 14:30 07/03/20 19:35 DC 07/03/20 15:05 Lorazepam (Ativan Inj) 0.5 mg BID IM 07/03/20 21:00 07/04/20 17:18 DC 07/03/20 22:04 Lorazepam (Ativan Inj) 1 mg 1X ONCE IM 07/05/20 18:45 07/05/20 18:46 DC 07/05/20 20:46 Lorazepam (Ativan Inj) 1 mg DAILY IM 07/06/20 09:00 07/11/20 10:08 Psyllium Hydrophilic Mucilloid (Metamucil) 1 pkt HS PO 07/05/20 21:30 07/13/20 20:11 Estradiol (Estrace) 1 barbara QMTH@2100 VG 07/06/20 21:00 07/13/20 20:14 Multi-Ingred Cream/Lotion/Oil/ Oint (Hydrocerin) 1 barbara PRN Q1HR PRN TP DRY SKIN / SCALING 07/08/20 12:30 Diphenhydramine HCl (Benadryl) 25 mg PRN Q4HRS PRN PO ITCHING 07/08/20 18:00 07/09/20 21:44 Clozapine (Clozaril) 175 mg HS PO 07/10/20 21:00 07/13/20 20:11 Divalproex Sodium (Depakote Sprinkles) 500 mg BID PO 07/10/20 21:00 07/13/20 20:11 I have reviewed the current psychotropics carefully including drug interactions. Risk benefit ratio favors no change other than as noted in my dictated progress note. Diagnosis: Problems: (1) Schizoaffective disorder, bipolar type (2) Impulse control disorder, unspecified (3) Anxiety disorder, unspecified (4) Bipolar affective, manic, severe w/ psych KIERSTEN WATT MD Jul 13, 2020 21:09
[2020-07-13] MEDS: DICLOFENAC SODIUM 1% TOPICAL GEL 100GM TUBE. TP PRN (21:50)
[2020-07-13] MEDS: diphenhydrAMINE HCL 25 MG CAPSULE PO PRN (21:57)
[2020-07-13] MEDS: traMADol 50 MG TABLET PO PRN (22:00)
--- NOTE | 2020-07-14 04:37 | NUR ---
Nursing Note The patient was compliant and withdrawn this shift. The patient was compliant with her medication whole. The patient was able to answer name, year, location during her assessment. The patient was restless at HS and received PRN Ultram for leg pain and Benadryl for itching legs.
[2020-07-14 06:01] VITALS: BP 119/69
[2020-07-14 07:13] LABS: BASO % 1 % (0-3); EOS # 0.3 x10^3/uL (0.0-0.7); EOS % 6 % (0-3); HEMATOCRIT 32.4 % (36.0-47.0); HEMOGLOBIN 10.6 g/dL (12.0-15.5); LYMPH # 1.5 x10^3/uL (1.0-4.8); LYMPH % 32 % (24-48); MEAN CORPUSCULAR HEMOGLOBIN 28 pg (25-35); MEAN CORPUSCULAR HGB CONC 33 g/dL (31-37); MEAN CORPUSCULAR VOLUME 86 fL (79-100); MONO % 21 % (0-9); NEUT % 41 % (31-73); PLATELET COUNT 171 x10^3/uL (140-400); RED BLOOD COUNT 3.76 x10^6/uL (3.50-5.40); RED CELL DISTRIBUTION WIDTH 16.4 % (11.5-14.5); WHITE BLOOD COUNT 4.8 x10^3/uL (4.0-11.0)
[2020-07-14 07:36] LABS: ALBUMIN 2.5 g/dL (3.4-5.0); ALBUMIN/GLOBULIN RATIO 0.7 (1.0-1.7); ALK PHOS 82 U/L (46-116); ALT (SGPT) 35 U/L (14-59); ANION GAP 6 (6-14); AST (SGOT) 35 U/L (15-37); BLOOD UREA NITROGEN 19 mg/dL (7-20); BUN/CREATININE RATIO 27 (6-20); CALCIUM 8.8 mg/dL (8.5-10.1); CARBON DIOXIDE 30 mmol/L (21-32); CHLORIDE 109 mmol/L (98-107); CREATININE 0.7 mg/dL (0.6-1.0); GFR 82.5; GLUCOSE 86 mg/dL (70-99); POTASSIUM 4.6 mmol/L (3.5-5.1); SODIUM 145 mmol/L (136-145); TOTAL BILIRUBIN 0.1 mg/dL (0.2-1.0)
[2020-07-14 07:38] LABS: VAL ACID 55 mcg/mL (50-100)
[2020-07-14] MEDS: MEMANTINE 10 MG TABLET. PO SCH ×2 (07:53→20:06)
[2020-07-14] MEDS: FUROSEMIDE 20 MG TABLET PO SCH (07:53)
[2020-07-14] MEDS: DIVALPROEX 125 MG CAP.SPRINK PO SCH ×2 (07:53→20:06)
[2020-07-14] MEDS: prednisoLONE ACETATE 1% OPHTH SUSPENSION 5ML BOTTLE. OD SCH (07:54)
--- NOTE | 2020-07-14 13:58 | NUR ---
Ava, daughter, contacted nurse Stacie, and informed that [facility] will be able to accept Britni back at time of discharge. SW contacted ROSALINE Ewing at [facility], who confirmed this information. Current notes, medication list, and labs faxed to [facility] for review. Requested [facility] follow up next week with call to Britni's assigned SW, Jaiden Baez, to discuss further.
[2020-07-14 15:44] VITALS: BP 140/90
[2020-07-14] MEDS: cloZAPine 100 MG TABLET PO SCH (20:06)
[2020-07-14] MEDS: MIRTAZAPINE 7.5 MG TABLET. PO SCH (20:06)
[2020-07-14] MEDS: LEVOTHYROXINE 50 MCG TABLET PO SCH (20:06)
[2020-07-14] MEDS: PSYLLIUM SEED (WITH SUGAR) PACKET. PO SCH (20:07)
--- NOTE | 2020-07-14 20:54 | PDOC ---
Exam Note: Julian Note: Please also refer to the separate dictated note~for this date of service dictated separately.~Patient seen individually. Discussed the patient with Nursing staff reviewed the chart.~Reviewed interim history and current functioning. Reviewed vital signs,~Labs/ Radiology~and current medications noted below. Continue current treatment with the changes noted in the dictated addendum note Assessment: Vital Signs/I&O: Vital Signs Date Time Temp Pulse Resp B/P (MAP) Pulse Ox O2 Delivery O2 Flow Rate FiO2 07/14/20 15:44 98.5 101 20 140/90 (107) 96 Room Air I & O 07/13/20 07/13/20 07/14/20 15:00 23:00 07:00 Intake Total 840 ml 1240 ml Balance 840 ml 1240 ml Labs: Laboratory Tests Test 07/14/20 06:52 White Blood Count 4.8 x10^3/uL (4.0-11.0) Red Blood Count 3.76 x10^6/uL (3.50-5.40) Hemoglobin 10.6 g/dL (12.0-15.5) L Hematocrit 32.4 % (36.0-47.0) L Mean Corpuscular Volume 86 fL (79-100) Mean Corpuscular Hemoglobin 28 pg (25-35) Mean Corpuscular Hemoglobin Concent 33 g/dL (31-37) Red Cell Distribution Width 16.4 % (11.5-14.5) H Platelet Count 171 x10^3/uL (140-400) Neutrophils (%) (Auto) 41 % (31-73) Lymphocytes (%) (Auto) 32 % (24-48) Monocytes (%) (Auto) 21 % (0-9) H Eosinophils (%) (Auto) 6 % (0-3) H Basophils (%) (Auto) 1 % (0-3) Neutrophils # (Auto) 2.0 x10^3uL (1.8-7.7) Lymphocytes # (Auto) 1.5 x10^3/uL (1.0-4.8) Monocytes # (Auto) 1.0 x10^3/uL (0.0-1.1) Eosinophils # (Auto) 0.3 x10^3/uL (0.0-0.7) Basophils # (Auto) 0.0 x10^3/uL (0.0-0.2) Sodium Level 145 mmol/L (136-145) Potassium Level 4.6 mmol/L (3.5-5.1) Chloride Level 109 mmol/L (98-107) H Carbon Dioxide Level 30 mmol/L (21-32) Anion Gap 6 (6-14) Blood Urea Nitrogen 19 mg/dL (7-20) Creatinine 0.7 mg/dL (0.6-1.0) Estimated GFR (Cockcroft-Gault) 82.5 BUN/Creatinine Ratio 27 (6-20) H Glucose Level 86 mg/dL (70-99) Calcium Level 8.8 mg/dL (8.5-10.1) Total Bilirubin 0.1 mg/dL (0.2-1.0) L Aspartate Amino Transferase (AST) 35 U/L (15-37) Alanine Aminotransferase (ALT) 35 U/L (14-59) Alkaline Phosphatase 82 U/L (46-116) Total Protein 6.0 g/dL (6.4-8.2) L Albumin 2.5 g/dL (3.4-5.0) L Albumin/Globulin Ratio 0.7 (1.0-1.7) L Valproic Acid Level 55 mcg/mL (50-100) Valproic Acid Last Dose Date 07/13/20 Valproic Acid Last Dose Time 2100 Current Medications: Meds: Current Medications Medications (Trade) Dose Ordered Sig/Bora Route PRN Reason Start Time Stop Time Status Last Admin Dose Admin Divalproex Sodium (Depakote Sprinkles) 750 mg QHS PO 07/14/20 21:00 07/14/20 20:06 I have reviewed the current psychotropics carefully including drug interactions. Risk benefit ratio favors no change other than as noted in my dictated progress note. Diagnosis: Problems: (1) Anxiety disorder, unspecified (2) Impulse control disorder, unspecified (3) Bipolar affective, manic, severe w/ psych (4) Schizoaffective disorder, bipolar type KIERSTEN WATT MD Jul 14, 2020 20:54
--- NOTE | 2020-07-14 22:42 | NUR ---
Pt was in day room for assessment and med pass. Pt is compliant with medication able to take meds whole with water. Pt was able to tell me her name, the month, and where she was, also that Saniya was president. Pt is currently sleeping in bed.
[2020-07-15 05:39] VITALS: BP 143/88
[2020-07-15] MEDS: MEMANTINE 10 MG TABLET. PO SCH ×2 (08:28→17:39)
[2020-07-15] MEDS: FUROSEMIDE 20 MG TABLET PO SCH (08:28)
[2020-07-15] MEDS: prednisoLONE ACETATE 1% OPHTH SUSPENSION 5ML BOTTLE. OD SCH (08:29)
[2020-07-15] MEDS: DIVALPROEX 125 MG CAP.SPRINK PO SCH ×2 (08:30→17:40)
[2020-07-15 16:26] VITALS: BP 123/67
[2020-07-15] MEDS: MIRTAZAPINE 7.5 MG TABLET. PO SCH (17:39)
[2020-07-15] MEDS: LEVOTHYROXINE 50 MCG TABLET PO SCH (17:40)
[2020-07-15] MEDS: PSYLLIUM SEED (WITH SUGAR) PACKET. PO SCH (17:40)
[2020-07-15] MEDS: cloZAPine 100 MG TABLET PO SCH (17:40)
[2020-07-15] MEDS: traZODone 100 MG TABLET. PO PRN (17:40)
--- NOTE | 2020-07-15 19:58 | NUR ---
Pt up adl to meals. Has been compliant with meds and cares.
[2020-07-15] MEDS: traMADol 50 MG TABLET PO PRN (21:01)
--- NOTE | 2020-07-15 22:01 | PDOC ---
Exam Note: Julian Note: Please also refer to the separate dictated note~for this date of service dictated separately.~Patient seen individually. Discussed the patient with Nursing staff reviewed the chart.~Reviewed interim history and current functioning. Reviewed vital signs,~Labs/ Radiology~and current medications noted below. Continue current treatment with the changes noted in the dictated addendum note Assessment: Vital Signs/I&O: Vital Signs Date Time Temp Pulse Resp B/P (MAP) Pulse Ox O2 Delivery O2 Flow Rate FiO2 07/15/20 16:26 98.8 104 18 123/67 (85) 95 Room Air I & O 07/14/20 07/14/20 07/15/20 14:59 22:59 06:59 Intake Total 1080 ml 840 ml Balance 1080 ml 840 ml Current Medications: Meds: Current Medications Medications (Trade) Dose Ordered Sig/Bora Route PRN Reason Start Time Stop Time Status Last Admin Dose Admin Divalproex Sodium (Depakote Sprinkles) 500 mg DAILY PO 07/15/20 09:00 07/15/20 08:30 I have reviewed the current psychotropics carefully including drug interactions. Risk benefit ratio favors no change other than as noted in my dictated progress note. Diagnosis: Problems: (1) Impulse control disorder, unspecified (2) Anxiety disorder, unspecified (3) Bipolar affective, manic, severe w/ psych (4) Schizoaffective disorder, bipolar type KIERSTEN WATT MD Jul 15, 2020 22:01
--- NOTE | 2020-07-15 23:17 | NUR ---
Pt emotionally labile, agitated at being unable to call at beginning of shift. Ambulated adlib to day room for approx. 10 min, smiled and spoke with another pt, then ambulated back to bed. Pt did c/o headache when first approached for assessment; pt asleep and refused tramadol initially. Pt requested tramadol again for pain "everywhere", tramadol given.
[2020-07-16 05:58] VITALS: BP 149/92
--- NOTE | 2020-07-16 06:03 | NUR ---
Pt woke screaming, this RN and JEAN CARLOS Valdovinos, spoke with her; pt stated she did not have a nightmare. Aruna stated the pt has been having similar episodes previous shifts.
[2020-07-16] MEDS: MEMANTINE 10 MG TABLET. PO SCH ×2 (08:11→20:14)
[2020-07-16] MEDS: prednisoLONE ACETATE 1% OPHTH SUSPENSION 5ML BOTTLE. OD SCH (08:11)
[2020-07-16] MEDS: FUROSEMIDE 20 MG TABLET PO SCH (08:11)
[2020-07-16] MEDS: DIVALPROEX 125 MG CAP.SPRINK PO SCH ×2 (08:11→20:14)
[2020-07-16 15:57] VITALS: BP 112/71
--- NOTE | 2020-07-16 16:39 | NUR ---
Pt up adl to meals. Has been compliant with meds. Has been social and jovial.
[2020-07-16] MEDS: PSYLLIUM SEED (WITH SUGAR) PACKET. PO SCH (20:13)
[2020-07-16] MEDS: MIRTAZAPINE 7.5 MG TABLET. PO SCH (20:13)
[2020-07-16] MEDS: traZODone 100 MG TABLET. PO PRN (20:14)
[2020-07-16] MEDS: LEVOTHYROXINE 50 MCG TABLET PO SCH (20:14)
[2020-07-16] MEDS: cloZAPine 100 MG TABLET PO SCH (20:14)
--- NOTE | 2020-07-16 21:02 | PDOC ---
Exam Note: Julian Note: This note is a late entry for 07/13/2020 covers elements not covered in my initial note. Subjective: The patient was seen face to face in the evening of 07/13/2020 with Renetta MUÑOZ, discussed and reviewed the chart. The patient slept 5-3/4 hours previous night. She has been doing wonderful per nursing report. She has been attending groups and watching game shows on TV with the rest of the patients. She was more agitated in the evening. Review of Systems: No CV, , pulmonary, eye, ENT system symptoms on review. Mental Status Exam: The patient is alert and oriented reasonably. Speech is coherent, still pressured but less than before. Abstraction is fair. Computation is impaired. Language function is intact. Mood and affect are improved. Laboratory Data: Reviewed. Impression: Schizoaffective disorder bipolar type, manic with psychotic features. Anxiety disorder unspecified. Impulse control disorder unspecified. Plan: No change from initial note. Continue to increase Clozaril gradually. Maintain rest of the psychotropics unchanged. Assessment: Vital Signs/I&O: Vital Signs Date Time Temp Pulse Resp B/P (MAP) Pulse Ox O2 Delivery O2 Flow Rate FiO2 07/16/20 15:57 98.0 80 20 112/71 (85) 99 Room Air I & O 07/15/20 07/15/20 07/16/20 15:00 23:00 07:00 Intake Total 1080 ml 240 ml 480 ml Balance 1080 ml 240 ml 480 ml Current Medications: Meds: Current Medications Medications (Trade) Dose Ordered Sig/Bora Route PRN Reason Start Time Stop Time Status Last Admin Dose Admin Diclofenac Sodium (Voltaren) 1 barbara PRN QID PRN TP MUSCLE PAIN 07/01/20 15:00 07/13/20 21:50 Divalproex Sodium (Depakote Sprinkles) 375 mg BID PO 07/01/20 21:00 07/10/20 14:23 DC 07/10/20 08:36 Docusate Sodium (Colace) 100 mg PRN BID PRN PO HARD STOOLS 07/01/20 15:00 07/04/20 19:14 Estradiol (Estrace) 1 barbara QMTH VG 07/03/20 16:00 07/06/20 17:44 DC Fluvoxamine Maleate (Luvox) 25 mg HS PO 07/01/20 21:00 07/02/20 09:40 DC 07/01/20 20:22 Furosemide (Lasix) 20 mg DAILY PO 07/02/20 09:00 07/16/20 08:11 Levothyroxine Sodium (Synthroid) 50 mcg HS PO 07/01/20 21:00 07/16/20 20:14 Memantine (Namenda) 10 mg BID PO 07/01/20 21:00 07/16/20 20:14 Mirtazapine (Remeron) 7.5 mg QHS PO 07/01/20 21:00 07/16/20 20:13 Olanzapine (ZyPREXA ZYDIS) 5 mg PRN BID PRN PO ANXIETY / AGITATION 07/01/20 15:00 07/02/20 09:40 DC 07/01/20 23:27 Artificial Tears (Refresh Classic) 1 drop PRN TID PRN OU DRY EYE 07/01/20 15:00 Prednisolone Acetate (Pred Forte) 1 drop DAILY OD 07/02/20 09:00 07/16/20 08:11 Tramadol HCl (Ultram) 50 mg PRN Q8HRS PRN PO PAIN 07/01/20 15:00 07/15/20 21:01 Trazodone HCl (Desyrel) 100 mg PRN QHS PRN PO INSOMNIA, MAY REPEAT X1 07/01/20 15:00 07/16/20 20:14 Ziprasidone (Geodon Im) 20 mg PRN BID PRN IM ANXIETY / AGITATION 07/01/20 15:00 07/02/20 10:56 DC 07/01/20 21:53 Guaifenesin/ Codeine Phosphate (Robitussin Ac) 5 ml PRN Q4HRS PRN PO COUGH 07/01/20 17:45 Al Hydroxide/Mg Hydroxide (Mylanta Plus Xs) 15 ml PRN Q2HR PRN PO DYSPEPSIA 07/01/20 17:45 Magnesium Hydroxide (Milk Of Magnesia) 2,400 mg PRN Q4HRS PRN PO CONSTIPATION 07/01/20 17:45 07/03/20 22:04 Olanzapine (ZyPREXA ZYDIS) 5 mg PRN Q2HRS PRN PO ANXIETY / AGITATION 07/02/20 09:45 07/05/20 13:30 Clozapine (Clozaril) 150 mg HS PO 07/02/20 21:00 07/10/20 14:23 DC 07/09/20 20:06 Ziprasidone (Geodon Im) 40 mg DAILY IM 07/02/20 11:15 07/04/20 17:18 DC 07/02/20 11:15 Lorazepam (Ativan Inj) 0.5 mg DAILY IM 07/03/20 14:30 07/03/20 19:35 DC 07/03/20 15:05 Lorazepam (Ativan Inj) 0.5 mg BID IM 07/03/20 21:00 07/04/20 17:18 DC 07/03/20 22:04 Lorazepam (Ativan Inj) 1 mg 1X ONCE IM 07/05/20 18:45 07/05/20 18:46 DC 07/05/20 20:46 Lorazepam (Ativan Inj) 1 mg DAILY IM 07/06/20 09:00 07/16/20 20:06 DC 07/15/20 08:30 Psyllium Hydrophilic Mucilloid (Metamucil) 1 pkt HS PO 07/05/20 21:30 07/16/20 20:13 Estradiol (Estrace) 1 barbara QMTH@2100 VG 07/06/20 21:00 07/13/20 20:14 Multi-Ingred Cream/Lotion/Oil/ Oint (Hydrocerin) 1 barbara PRN Q1HR PRN TP DRY SKIN / SCALING 07/08/20 12:30 Diphenhydramine HCl (Benadryl) 25 mg PRN Q4HRS PRN PO ITCHING 07/08/20 18:00 07/13/20 21:57 Clozapine (Clozaril) 175 mg HS PO 07/10/20 21:00 07/16/20 20:14 Divalproex Sodium (Depakote Sprinkles) 500 mg BID PO 07/10/20 21:00 07/14/20 16:36 DC 07/14/20 07:53 Divalproex Sodium (Depakote Sprinkles) 500 mg DAILY PO 07/15/20 09:00 07/16/20 08:11 Divalproex Sodium (Depakote Sprinkles) 750 mg QHS PO 07/14/20 21:00 07/16/20 20:14 I have reviewed the current psychotropics carefully including drug interactions. Risk benefit ratio favors no change other than as noted in my dictated progress note. Diagnosis: Problems: (1) Schizoaffective disorder, bipolar type (2) Impulse control disorder, unspecified (3) Anxiety disorder, unspecified (4) Bipolar affective, manic, severe w/ psych KIERSTEN WATT MD Jul 16, 2020 21:02
--- NOTE | 2020-07-16 21:24 | PDOC ---
Exam Note: Julian Note: This note is a late entry for 07/14/2020 covers elements not covered in my initial note. Subjective: The patient was seen face to face in the evening of 07/14/2020 with Stacie MUÑOZ, discussed and reviewed the chart. The patient slept 6 hours previous night. Overall she is doing better, more interactive, appropriate, less manic, still has some pressured speech but much improved. Review of Systems: No CV, , pulmonary, eye, ENT system symptoms on review. Mental Status Exam: The patient is oriented to herself and situation. Speech is coherent, less pressured.. Abstraction is fair. Computation is impaired. Language function is intact. Mood and affect less manic, labile. No suicidal or homicidal ideation. Laboratory Data: Reviewed. Valproic acid level is therapeutic at 55. Impression: Schizoaffective disorder bipolar type, manic with psychotic features. Anxiety disorder unspecified. Impulse control disorder unspecified. Plan: No change from initial note. We will increase Depakote Sprinkle to 500 mg a.m., 750 mg h.s. Check CBC, CMP, valproic acid level in 3 days. Rest unchanged for now. Assessment: Vital Signs/I&O: Vital Signs Date Time Temp Pulse Resp B/P (MAP) Pulse Ox O2 Delivery O2 Flow Rate FiO2 07/16/20 15:57 98.0 80 20 112/71 (85) 99 Room Air I & O 07/15/20 07/15/20 07/16/20 15:00 23:00 07:00 Intake Total 1080 ml 240 ml 480 ml Balance 1080 ml 240 ml 480 ml Current Medications: Meds: Current Medications Medications (Trade) Dose Ordered Sig/Bora Route PRN Reason Start Time Stop Time Status Last Admin Dose Admin Diclofenac Sodium (Voltaren) 1 barbara PRN QID PRN TP MUSCLE PAIN 07/01/20 15:00 07/13/20 21:50 Divalproex Sodium (Depakote Sprinkles) 375 mg BID PO 07/01/20 21:00 07/10/20 14:23 DC 07/10/20 08:36 Docusate Sodium (Colace) 100 mg PRN BID PRN PO HARD STOOLS 07/01/20 15:00 07/04/20 19:14 Estradiol (Estrace) 1 barbara QMTH VG 07/03/20 16:00 07/06/20 17:44 DC Fluvoxamine Maleate (Luvox) 25 mg HS PO 07/01/20 21:00 07/02/20 09:40 DC 07/01/20 20:22 Furosemide (Lasix) 20 mg DAILY PO 07/02/20 09:00 07/16/20 08:11 Levothyroxine Sodium (Synthroid) 50 mcg HS PO 07/01/20 21:00 07/16/20 20:14 Memantine (Namenda) 10 mg BID PO 07/01/20 21:00 07/16/20 20:14 Mirtazapine (Remeron) 7.5 mg QHS PO 07/01/20 21:00 07/16/20 20:13 Olanzapine (ZyPREXA ZYDIS) 5 mg PRN BID PRN PO ANXIETY / AGITATION 07/01/20 15:00 07/02/20 09:40 DC 07/01/20 23:27 Artificial Tears (Refresh Classic) 1 drop PRN TID PRN OU DRY EYE 07/01/20 15:00 Prednisolone Acetate (Pred Forte) 1 drop DAILY OD 07/02/20 09:00 07/16/20 08:11 Tramadol HCl (Ultram) 50 mg PRN Q8HRS PRN PO PAIN 07/01/20 15:00 07/15/20 21:01 Trazodone HCl (Desyrel) 100 mg PRN QHS PRN PO INSOMNIA, MAY REPEAT X1 07/01/20 15:00 07/16/20 20:14 Ziprasidone (Geodon Im) 20 mg PRN BID PRN IM ANXIETY / AGITATION 07/01/20 15:00 07/02/20 10:56 DC 07/01/20 21:53 Guaifenesin/ Codeine Phosphate (Robitussin Ac) 5 ml PRN Q4HRS PRN PO COUGH 07/01/20 17:45 Al Hydroxide/Mg Hydroxide (Mylanta Plus Xs) 15 ml PRN Q2HR PRN PO DYSPEPSIA 07/01/20 17:45 Magnesium Hydroxide (Milk Of Magnesia) 2,400 mg PRN Q4HRS PRN PO CONSTIPATION 07/01/20 17:45 07/03/20 22:04 Olanzapine (ZyPREXA ZYDIS) 5 mg PRN Q2HRS PRN PO ANXIETY / AGITATION 07/02/20 09:45 07/05/20 13:30 Clozapine (Clozaril) 150 mg HS PO 07/02/20 21:00 07/10/20 14:23 DC 07/09/20 20:06 Ziprasidone (Geodon Im) 40 mg DAILY IM 07/02/20 11:15 07/04/20 17:18 DC 07/02/20 11:15 Lorazepam (Ativan Inj) 0.5 mg DAILY IM 07/03/20 14:30 07/03/20 19:35 DC 07/03/20 15:05 Lorazepam (Ativan Inj) 0.5 mg BID IM 07/03/20 21:00 07/04/20 17:18 DC 07/03/20 22:04 Lorazepam (Ativan Inj) 1 mg 1X ONCE IM 07/05/20 18:45 07/05/20 18:46 DC 07/05/20 20:46 Lorazepam (Ativan Inj) 1 mg DAILY IM 07/06/20 09:00 07/16/20 20:06 DC 07/15/20 08:30 Psyllium Hydrophilic Mucilloid (Metamucil) 1 pkt HS PO 07/05/20 21:30 07/16/20 20:13 Estradiol (Estrace) 1 barbara QMTH@2100 VG 07/06/20 21:00 07/13/20 20:14 Multi-Ingred Cream/Lotion/Oil/ Oint (Hydrocerin) 1 barbara PRN Q1HR PRN TP DRY SKIN / SCALING 07/08/20 12:30 Diphenhydramine HCl (Benadryl) 25 mg PRN Q4HRS PRN PO ITCHING 07/08/20 18:00 07/13/20 21:57 Clozapine (Clozaril) 175 mg HS PO 07/10/20 21:00 07/16/20 20:14 Divalproex Sodium (Depakote Sprinkles) 500 mg BID PO 07/10/20 21:00 07/14/20 16:36 DC 07/14/20 07:53 Divalproex Sodium (Depakote Sprinkles) 500 mg DAILY PO 07/15/20 09:00 07/16/20 08:11 Divalproex Sodium (Depakote Sprinkles) 750 mg QHS PO 07/14/20 21:00 07/16/20 20:14 I have reviewed the current psychotropics carefully including drug interactions. Risk benefit ratio favors no change other than as noted in my dictated progress note. Diagnosis: Problems: (1) Schizoaffective disorder, bipolar type (2) Impulse control disorder, unspecified (3) Anxiety disorder, unspecified (4) Bipolar affective, manic, severe w/ psych KIERSTEN WATT MD Jul 16, 2020 21:24
--- NOTE | 2020-07-16 21:24 | PDOC ---
Exam Note: Julian Note: Please also refer to the separate dictated note~for this date of service dictated separately.~Patient seen individually. Discussed the patient with Nursing staff reviewed the chart.~Reviewed interim history and current functioning. Reviewed vital signs,~Labs/ Radiology~and current medications noted below. Continue current treatment with the changes noted in the dictated addendum note Assessment: Vital Signs/I&O: Vital Signs Date Time Temp Pulse Resp B/P (MAP) Pulse Ox O2 Delivery O2 Flow Rate FiO2 07/16/20 15:57 98.0 80 20 112/71 (85) 99 Room Air I & O 07/15/20 07/15/20 07/16/20 15:00 23:00 07:00 Intake Total 1080 ml 240 ml 480 ml Balance 1080 ml 240 ml 480 ml Current Medications: I have reviewed the current psychotropics carefully including drug interactions. Risk benefit ratio favors no change other than as noted in my dictated progress note. Diagnosis: Problems: (1) Schizoaffective disorder, bipolar type (2) Impulse control disorder, unspecified (3) Anxiety disorder, unspecified (4) Bipolar affective, manic, severe w/ psych KIERSTEN WATT MD Jul 16, 2020 21:24
--- NOTE | 2020-07-16 23:22 | NUR ---
Nursing Note The patient was calm and cooperative this shift. The patient spent some time talking with her spouse early in the shift. The patient was pleasant during interactions. The patient took her medication whole. The patient was located in the group room watching tv during her assessment.
[2020-07-17 06:00] VITALS: BP 134/80
[2020-07-17] MEDS: MEMANTINE 10 MG TABLET. PO SCH ×2 (06:15→21:05)
[2020-07-17] MEDS: DIVALPROEX 125 MG CAP.SPRINK PO SCH ×2 (06:15→21:04)
[2020-07-17] MEDS: FUROSEMIDE 20 MG TABLET PO SCH (06:15)
[2020-07-17 06:36] LABS: BASO % 1 % (0-3); EOS # 0.2 x10^3/uL (0.0-0.7); EOS % 5 % (0-3); HEMATOCRIT 34.4 % (36.0-47.0); HEMOGLOBIN 11.1 g/dL (12.0-15.5); LYMPH # 1.1 x10^3/uL (1.0-4.8); LYMPH % 25 % (24-48); MEAN CORPUSCULAR HEMOGLOBIN 28 pg (25-35); MEAN CORPUSCULAR HGB CONC 32 g/dL (31-37); MEAN CORPUSCULAR VOLUME 86 fL (79-100); MONO # 0.7 x10^3/uL (0.0-1.1); MONO % 16 % (0-9); NEUT # 2.4 x10^3uL (1.8-7.7); NEUT % 54 % (31-73); PLATELET COUNT 165 x10^3/uL (140-400); RED BLOOD COUNT 3.98 x10^6/uL (3.50-5.40); RED CELL DISTRIBUTION WIDTH 16.6 % (11.5-14.5); WHITE BLOOD COUNT 4.4 x10^3/uL (4.0-11.0)
[2020-07-17 06:44] LABS: ALBUMIN 2.6 g/dL (3.4-5.0); ALBUMIN/GLOBULIN RATIO 0.7 (1.0-1.7); CREATININE 0.8 mg/dL (0.6-1.0); GFR 70.7; POTASSIUM 4.3 mmol/L (3.5-5.1); TOTAL BILIRUBIN 0.2 mg/dL (0.2-1.0); TOTAL PROTEIN 6.4 g/dL (6.4-8.2)
[2020-07-17 06:54] LABS: VAL ACID 73 mcg/mL (50-100)
[2020-07-17] MEDS: prednisoLONE ACETATE 1% OPHTH SUSPENSION 5ML BOTTLE. OD SCH (08:38)
[2020-07-17 09:36] LABS: % BANDS 3 % (0-9); % BASOS 1 % (0-3); % EOS 9 % (0-5); % LYMPHS 30 % (24-48); % MONOS 14 % (0-10); % MYELOS 1 % (0-0); % SEGS 42 % (35-66)
[2020-07-17 09:37] LABS: PLT ESTIMATE ADEQUATE (ADEQUATE)
--- NOTE | 2020-07-17 11:54 | NUR ---
WEEKLY ACTIVITY THERAPY NOTE Date of Admission: 07/01/2020 Date of AT Assessment: 07/03/20 Precipitating behaviors that initiated intake and admission: hallucinating, grandiose, manic Goal aimed: increase time management and stress management/relaxation skills Initial Goal: Pt will participate in at least three individual or group Activity Therapy sessions before discharge. Changed goal 07/17: Pt will participate in at least five individual or group Activity Therapy sessions before discharge. Weekly progress towards goal: exceeded, 10/19 Group participation level: 5 mod, 1 full Weekly highlights: requested music Friday during [employer], crack the code, sang and dance during songs and states group Behaviors observed: mask over her eyes Friday, danced, manic-blurted out and loud laughter, fast and loud talking, more appropriate/controlled as the week has progressed Plan: change goal to: Pt will participate in at least five individual or group Activity Therapy sessions before discharge. Beneficial adaptations:
--- NOTE | 2020-07-17 15:26 | NUR ---
Nursing note: Pt has been very social with her peers this shift and participates in group activities. Pt denies having any pain or other complaints. She is currently in the day room listening to music. Will continue to monitor.
[2020-07-17 16:02] VITALS: BP 120/78
[2020-07-17] MEDS: PSYLLIUM SEED (WITH SUGAR) PACKET. PO SCH (21:04)
[2020-07-17] MEDS: cloZAPine 100 MG TABLET PO SCH (21:04)
--- NOTE | 2020-07-17 21:04 | PDOC ---
Exam Note: Julian Note: This note is a late entry for 07/15/2020 covers elements not covered in my initial note. Subjective: The patient was seen face to face in the evening of 07/15/2020 with Joycelyn MUÑOZ, discussed and reviewed the chart. The patient slept 6-1/4 hours previous night. Overall the patient has done better. Valproic acid level is therapeutic at 55. Absolute neutrophil count is 1968 today and we will repeat it again on Friday. There is a slight drop but still clinically adequate for the Clozaril. Review of Systems: She has some difficulty with her speech due to dyskinetic movements. No CV, , pulmonary, eye system symptoms on review. Mental Status Exam: The patient is oriented to herself and situation. Speech still somewhat pressured, less so than before. Abstraction is fair. Computation is impaired. Language function is intact. Attention span is short. Mood and affect remains somewhat anxious, labile but better than before. No suicidal or homicidal ideation. Laboratory Data: Reviewed. Impression: Schizoaffective disorder bipolar type, manic with psychotic features. Anxiety disorder unspecified. Impulse control disorder unspecified. Plan: No change from initial note. We will adjust Clozaril further depending on her progress. Valproic acid level is therapeutic. Continue dosage unchanged. Assessment: Vital Signs/I&O: Vital Signs Date Time Temp Pulse Resp B/P (MAP) Pulse Ox O2 Delivery O2 Flow Rate FiO2 07/17/20 16:02 98.0 107 18 120/78 (92) 94 07/16/20 15:57 Room Air I & O 07/16/20 07/16/20 07/17/20 15:00 23:00 07:00 Intake Total 480 ml 1320 ml Balance 480 ml 1320 ml Labs: Laboratory Tests Test 07/17/20 06:05 White Blood Count 4.4 x10^3/uL (4.0-11.0) Red Blood Count 3.98 x10^6/uL (3.50-5.40) Hemoglobin 11.1 g/dL (12.0-15.5) L Hematocrit 34.4 % (36.0-47.0) L Mean Corpuscular Volume 86 fL (79-100) Mean Corpuscular Hemoglobin 28 pg (25-35) Mean Corpuscular Hemoglobin Concent 32 g/dL (31-37) Red Cell Distribution Width 16.6 % (11.5-14.5) H Platelet Count 165 x10^3/uL (140-400) Neutrophils (%) (Auto) 54 % (31-73) Lymphocytes (%) (Auto) 25 % (24-48) Monocytes (%) (Auto) 16 % (0-9) H Eosinophils (%) (Auto) 5 % (0-3) H Basophils (%) (Auto) 1 % (0-3) Neutrophils # (Auto) 2.4 x10^3uL (1.8-7.7) Lymphocytes # (Auto) 1.1 x10^3/uL (1.0-4.8) Monocytes # (Auto) 0.7 x10^3/uL (0.0-1.1) Eosinophils # (Auto) 0.2 x10^3/uL (0.0-0.7) Basophils # (Auto) 0.0 x10^3/uL (0.0-0.2) Segmented Neutrophils % 42 % (35-66) Band Neutrophils % 3 % (0-9) Lymphocytes % 30 % (24-48) Monocytes % 14 % (0-10) H Eosinophils % 9 % (0-5) H Basophils % 1 % (0-3) Myelocytes % 1 % (0-0) H Platelet Estimate Adequate (ADEQUATE) Sodium Level 144 mmol/L (136-145) Potassium Level 4.3 mmol/L (3.5-5.1) Chloride Level 108 mmol/L (98-107) H Carbon Dioxide Level 30 mmol/L (21-32) Anion Gap 6 (6-14) Blood Urea Nitrogen 20 mg/dL (7-20) Creatinine 0.8 mg/dL (0.6-1.0) Estimated GFR (Cockcroft-Gault) 70.7 BUN/Creatinine Ratio 25 (6-20) H Glucose Level 99 mg/dL (70-99) Calcium Level 9.0 mg/dL (8.5-10.1) Total Bilirubin 0.2 mg/dL (0.2-1.0) Aspartate Amino Transferase (AST) 29 U/L (15-37) Alanine Aminotransferase (ALT) 32 U/L (14-59) Alkaline Phosphatase 84 U/L (46-116) Ammonia 12 mcmol/L (11-34) Total Protein 6.4 g/dL (6.4-8.2) Albumin 2.6 g/dL (3.4-5.0) L Albumin/Globulin Ratio 0.7 (1.0-1.7) L Valproic Acid Level 73 mcg/mL (50-100) Valproic Acid Last Dose Date 07/16/20 Valproic Acid Last Dose Time 2100 Current Medications: Meds: Laboratory Tests Test 07/17/20 06:05 White Blood Count 4.4 x10^3/uL Red Blood Count 3.98 x10^6/uL Hemoglobin 11.1 g/dL Hematocrit 34.4 % Mean Corpuscular Volume 86 fL Mean Corpuscular Hemoglobin 28 pg Mean Corpuscular Hemoglobin Concent 32 g/dL Red Cell Distribution Width 16.6 % Platelet Count 165 x10^3/uL Neutrophils (%) (Auto) 54 % Lymphocytes (%) (Auto) 25 % Monocytes (%) (Auto) 16 % Eosinophils (%) (Auto) 5 % Basophils (%) (Auto) 1 % Neutrophils # (Auto) 2.4 x10^3uL Lymphocytes # (Auto) 1.1 x10^3/uL Monocytes # (Auto) 0.7 x10^3/uL Eosinophils # (Auto) 0.2 x10^3/uL Basophils # (Auto) 0.0 x10^3/uL Segmented Neutrophils % 42 % Band Neutrophils % 3 % Lymphocytes % 30 % Monocytes % 14 % Eosinophils % 9 % Basophils % 1 % Myelocytes % 1 % Platelet Estimate Adequate Sodium Level 144 mmol/L Potassium Level 4.3 mmol/L Chloride Level 108 mmol/L Carbon Dioxide Level 30 mmol/L Anion Gap 6 Blood Urea Nitrogen 20 mg/dL Creatinine 0.8 mg/dL Estimated GFR (Cockcroft-Gault) 70.7 BUN/Creatinine Ratio 25 Glucose Level 99 mg/dL Calcium Level 9.0 mg/dL Total Bilirubin 0.2 mg/dL Aspartate Amino Transf (AST/SGOT) 29 U/L Alanine Aminotransferase (ALT/SGPT) 32 U/L Alkaline Phosphatase 84 U/L Ammonia 12 mcmol/L Total Protein 6.4 g/dL Albumin 2.6 g/dL Albumin/Globulin Ratio 0.7 Valproic Acid (Depakene) Level 73 mcg/mL Valproic Acid Last Dose Date 07/16/20 Valproic Acid Last Dose Time 2100 Current Medications Medications (Trade) Dose Ordered Sig/Bora Route PRN Reason Start Time Stop Time Status Last Admin Dose Admin Diclofenac Sodium (Voltaren) 1 barbara PRN QID PRN TP MUSCLE PAIN 07/01/20 15:00 07/13/20 21:50 Divalproex Sodium (Depakote Sprinkles) 375 mg BID PO 07/01/20 21:00 07/10/20 14:23 DC 07/10/20 08:36 Docusate Sodium (Colace) 100 mg PRN BID PRN PO HARD STOOLS 07/01/20 15:00 07/04/20 19:14 Estradiol (Estrace) 1 barbara QMTH VG 07/03/20 16:00 07/06/20 17:44 DC Fluvoxamine Maleate (Luvox) 25 mg HS PO 07/01/20 21:00 07/02/20 09:40 DC 07/01/20 20:22 Furosemide (Lasix) 20 mg DAILY PO 07/02/20 09:00 07/17/20 06:15 Levothyroxine Sodium (Synthroid) 50 mcg HS PO 07/01/20 21:00 07/16/20 20:14 Memantine (Namenda) 10 mg BID PO 07/01/20 21:00 07/17/20 06:15 Mirtazapine (Remeron) 7.5 mg QHS PO 07/01/20 21:00 07/16/20 20:13 Olanzapine (ZyPREXA ZYDIS) 5 mg PRN BID PRN PO ANXIETY / AGITATION 07/01/20 15:00 07/02/20 09:40 DC 07/01/20 23:27 Artificial Tears (Refresh Classic) 1 drop PRN TID PRN OU DRY EYE 07/01/20 15:00 Prednisolone Acetate (Pred Forte) 1 drop DAILY OD 07/02/20 09:00 07/17/20 08:38 Tramadol HCl (Ultram) 50 mg PRN Q8HRS PRN PO PAIN 07/01/20 15:00 07/15/20 21:01 Trazodone HCl (Desyrel) 100 mg PRN QHS PRN PO INSOMNIA, MAY REPEAT X1 07/01/20 15:00 07/16/20 20:14 Ziprasidone (Geodon Im) 20 mg PRN BID PRN IM ANXIETY / AGITATION 07/01/20 15:00 07/02/20 10:56 DC 07/01/20 21:53 Guaifenesin/ Codeine Phosphate (Robitussin Ac) 5 ml PRN Q4HRS PRN PO COUGH 07/01/20 17:45 Al Hydroxide/Mg Hydroxide (Mylanta Plus Xs) 15 ml PRN Q2HR PRN PO DYSPEPSIA 07/01/20 17:45 Magnesium Hydroxide (Milk Of Magnesia) 2,400 mg PRN Q4HRS PRN PO CONSTIPATION 07/01/20 17:45 07/03/20 22:04 Olanzapine (ZyPREXA ZYDIS) 5 mg PRN Q2HRS PRN PO ANXIETY / AGITATION 07/02/20 09:45 07/05/20 13:30 Clozapine (Clozaril) 150 mg HS PO 07/02/20 21:00 07/10/20 14:23 DC 07/09/20 20:06 Ziprasidone (Geodon Im) 40 mg DAILY IM 07/02/20 11:15 07/04/20 17:18 DC 07/02/20 11:15 Lorazepam (Ativan Inj) 0.5 mg DAILY IM 07/03/20 14:30 07/03/20 19:35 DC 07/03/20 15:05 Lorazepam (Ativan Inj) 0.5 mg BID IM 07/03/20 21:00 07/04/20 17:18 DC 07/03/20 22:04 Lorazepam (Ativan Inj) 1 mg 1X ONCE IM 07/05/20 18:45 07/05/20 18:46 DC 07/05/20 20:46 Lorazepam (Ativan Inj) 1 mg DAILY IM 07/06/20 09:00 07/16/20 20:06 DC 07/15/20 08:30 Psyllium Hydrophilic Mucilloid (Metamucil) 1 pkt HS PO 07/05/20 21:30 07/16/20 20:13 Estradiol (Estrace) 1 barbara QMTH@2100 VG 07/06/20 21:00 07/13/20 20:14 Multi-Ingred Cream/Lotion/Oil/ Oint (Hydrocerin) 1 barbara PRN Q1HR PRN TP DRY SKIN / SCALING 07/08/20 12:30 Diphenhydramine HCl (Benadryl) 25 mg PRN Q4HRS PRN PO ITCHING 07/08/20 18:00 07/13/20 21:57 Clozapine (Clozaril) 175 mg HS PO 07/10/20 21:00 07/17/20 18:08 DC 07/16/20 20:14 Divalproex Sodium (Depakote Sprinkles) 500 mg BID PO 07/10/20 21:00 07/14/20 16:36 DC 07/14/20 07:53 Divalproex Sodium (Depakote Sprinkles) 500 mg DAILY PO 07/15/20 09:00 07/17/20 06:15 Divalproex Sodium (Depakote Sprinkles) 750 mg QHS PO 07/14/20 21:00 07/16/20 20:14 Clozapine (Clozaril) 200 mg HS PO 07/17/20 21:00 I have reviewed the current psychotropics carefully including drug interactions. Risk benefit ratio favors no change other than as noted in my dictated progress note. Diagnosis: Problems: (1) Impulse control disorder, unspecified (2) Schizoaffective disorder, bipolar type (3) Anxiety disorder, unspecified (4) Bipolar affective, manic, severe w/ psych KIERSTEN WATT MD Jul 17, 2020 21:04
[2020-07-17] MEDS: traZODone 100 MG TABLET. PO PRN (21:05)
[2020-07-17] MEDS: LEVOTHYROXINE 50 MCG TABLET PO SCH (21:05)
[2020-07-17] MEDS: MIRTAZAPINE 7.5 MG TABLET. PO SCH (21:16)
[2020-07-17] MEDS: ESTRADIOL 0.01% VAGINAL CREAM 42.5GM TUBE. VG SCH (21:16)
--- NOTE | 2020-07-17 21:27 | PDOC ---
Exam Note: Julian Note: This note is a late entry for 07/16/2020 covers elements not covered in my initial note. Subjective: The patient was seen face to face in the evening of 07/16/2020 with Joycelyn MUÑOZ, discussed and reviewed the chart. The patient slept 8-3/4 hours previous night. She has been pleasant, somewhat jovial but screaming at night, called her and talked to him. She does not want to return back to [facility] and we will have social service staff to look into this in coordination with her . Review of Systems: No CV, , pulmonary, eye, ENT system symptoms on review. She was on telephone with her when I made rounds but she put the call on hold as we talked. Mental Status Exam: The patient is reasonably oriented. At times speech is difficult to understand because it is still slightly pressured, but much improved. Abstraction is fair. Computation is impaired. Language function is intact. Attention span is short. Mood and affect anxious, labile but better than before. No suicidal or homicidal ideation. Laboratory Data: Reviewed. Impression: Schizoaffective disorder bipolar type, manic with psychotic features. Anxiety disorder unspecified. Impulse control disorder unspecified. Plan: No change from initial note. Assessment: Vital Signs/I&O: Vital Signs Date Time Temp Pulse Resp B/P (MAP) Pulse Ox O2 Delivery O2 Flow Rate FiO2 07/17/20 16:02 98.0 107 18 120/78 (92) 94 07/16/20 15:57 Room Air I & O 07/16/20 07/16/20 07/17/20 14:59 22:59 06:59 Intake Total 480 ml 1320 ml Balance 480 ml 1320 ml Labs: Laboratory Tests Test 07/17/20 06:05 White Blood Count 4.4 x10^3/uL (4.0-11.0) Red Blood Count 3.98 x10^6/uL (3.50-5.40) Hemoglobin 11.1 g/dL (12.0-15.5) L Hematocrit 34.4 % (36.0-47.0) L Mean Corpuscular Volume 86 fL (79-100) Mean Corpuscular Hemoglobin 28 pg (25-35) Mean Corpuscular Hemoglobin Concent 32 g/dL (31-37) Red Cell Distribution Width 16.6 % (11.5-14.5) H Platelet Count 165 x10^3/uL (140-400) Neutrophils (%) (Auto) 54 % (31-73) Lymphocytes (%) (Auto) 25 % (24-48) Monocytes (%) (Auto) 16 % (0-9) H Eosinophils (%) (Auto) 5 % (0-3) H Basophils (%) (Auto) 1 % (0-3) Neutrophils # (Auto) 2.4 x10^3uL (1.8-7.7) Lymphocytes # (Auto) 1.1 x10^3/uL (1.0-4.8) Monocytes # (Auto) 0.7 x10^3/uL (0.0-1.1) Eosinophils # (Auto) 0.2 x10^3/uL (0.0-0.7) Basophils # (Auto) 0.0 x10^3/uL (0.0-0.2) Segmented Neutrophils % 42 % (35-66) Band Neutrophils % 3 % (0-9) Lymphocytes % 30 % (24-48) Monocytes % 14 % (0-10) H Eosinophils % 9 % (0-5) H Basophils % 1 % (0-3) Myelocytes % 1 % (0-0) H Platelet Estimate Adequate (ADEQUATE) Sodium Level 144 mmol/L (136-145) Potassium Level 4.3 mmol/L (3.5-5.1) Chloride Level 108 mmol/L (98-107) H Carbon Dioxide Level 30 mmol/L (21-32) Anion Gap 6 (6-14) Blood Urea Nitrogen 20 mg/dL (7-20) Creatinine 0.8 mg/dL (0.6-1.0) Estimated GFR (Cockcroft-Gault) 70.7 BUN/Creatinine Ratio 25 (6-20) H Glucose Level 99 mg/dL (70-99) Calcium Level 9.0 mg/dL (8.5-10.1) Total Bilirubin 0.2 mg/dL (0.2-1.0) Aspartate Amino Transferase (AST) 29 U/L (15-37) Alanine Aminotransferase (ALT) 32 U/L (14-59) Alkaline Phosphatase 84 U/L (46-116) Ammonia 12 mcmol/L (11-34) Total Protein 6.4 g/dL (6.4-8.2) Albumin 2.6 g/dL (3.4-5.0) L Albumin/Globulin Ratio 0.7 (1.0-1.7) L Valproic Acid Level 73 mcg/mL (50-100) Valproic Acid Last Dose Date 07/16/20 Valproic Acid Last Dose Time 2100 Current Medications: Meds: Laboratory Tests Test 07/17/20 06:05 White Blood Count 4.4 x10^3/uL Red Blood Count 3.98 x10^6/uL Hemoglobin 11.1 g/dL Hematocrit 34.4 % Mean Corpuscular Volume 86 fL Mean Corpuscular Hemoglobin 28 pg Mean Corpuscular Hemoglobin Concent 32 g/dL Red Cell Distribution Width 16.6 % Platelet Count 165 x10^3/uL Neutrophils (%) (Auto) 54 % Lymphocytes (%) (Auto) 25 % Monocytes (%) (Auto) 16 % Eosinophils (%) (Auto) 5 % Basophils (%) (Auto) 1 % Neutrophils # (Auto) 2.4 x10^3uL Lymphocytes # (Auto) 1.1 x10^3/uL Monocytes # (Auto) 0.7 x10^3/uL Eosinophils # (Auto) 0.2 x10^3/uL Basophils # (Auto) 0.0 x10^3/uL Segmented Neutrophils % 42 % Band Neutrophils % 3 % Lymphocytes % 30 % Monocytes % 14 % Eosinophils % 9 % Basophils % 1 % Myelocytes % 1 % Platelet Estimate Adequate Sodium Level 144 mmol/L Potassium Level 4.3 mmol/L Chloride Level 108 mmol/L Carbon Dioxide Level 30 mmol/L Anion Gap 6 Blood Urea Nitrogen 20 mg/dL Creatinine 0.8 mg/dL Estimated GFR (Cockcroft-Gault) 70.7 BUN/Creatinine Ratio 25 Glucose Level 99 mg/dL Calcium Level 9.0 mg/dL Total Bilirubin 0.2 mg/dL Aspartate Amino Transf (AST/SGOT) 29 U/L Alanine Aminotransferase (ALT/SGPT) 32 U/L Alkaline Phosphatase 84 U/L Ammonia 12 mcmol/L Total Protein 6.4 g/dL Albumin 2.6 g/dL Albumin/Globulin Ratio 0.7 Valproic Acid (Depakene) Level 73 mcg/mL Valproic Acid Last Dose Date 07/16/20 Valproic Acid Last Dose Time 2100 Current Medications Medications (Trade) Dose Ordered Sig/Bora Route PRN Reason Start Time Stop Time Status Last Admin Dose Admin Diclofenac Sodium (Voltaren) 1 barbara PRN QID PRN TP MUSCLE PAIN 07/01/20 15:00 07/13/20 21:50 Divalproex Sodium (Depakote Sprinkles) 375 mg BID PO 07/01/20 21:00 07/10/20 14:23 DC 07/10/20 08:36 Docusate Sodium (Colace) 100 mg PRN BID PRN PO HARD STOOLS 07/01/20 15:00 07/04/20 19:14 Estradiol (Estrace) 1 barbara QMTH VG 07/03/20 16:00 07/06/20 17:44 DC Fluvoxamine Maleate (Luvox) 25 mg HS PO 07/01/20 21:00 07/02/20 09:40 DC 07/01/20 20:22 Furosemide (Lasix) 20 mg DAILY PO 07/02/20 09:00 07/17/20 06:15 Levothyroxine Sodium (Synthroid) 50 mcg HS PO 07/01/20 21:00 07/17/20 21:05 Memantine (Namenda) 10 mg BID PO 07/01/20 21:00 07/17/20 21:05 Mirtazapine (Remeron) 7.5 mg QHS PO 07/01/20 21:00 07/17/20 21:16 Olanzapine (ZyPREXA ZYDIS) 5 mg PRN BID PRN PO ANXIETY / AGITATION 07/01/20 15:00 07/02/20 09:40 DC 07/01/20 23:27 Artificial Tears (Refresh Classic) 1 drop PRN TID PRN OU DRY EYE 07/01/20 15:00 Prednisolone Acetate (Pred Forte) 1 drop DAILY OD 07/02/20 09:00 07/17/20 08:38 Tramadol HCl (Ultram) 50 mg PRN Q8HRS PRN PO PAIN 07/01/20 15:00 07/15/20 21:01 Trazodone HCl (Desyrel) 100 mg PRN QHS PRN PO INSOMNIA, MAY REPEAT X1 07/01/20 15:00 07/17/20 21:05 Ziprasidone (Geodon Im) 20 mg PRN BID PRN IM ANXIETY / AGITATION 07/01/20 15:00 07/02/20 10:56 DC 07/01/20 21:53 Guaifenesin/ Codeine Phosphate (Robitussin Ac) 5 ml PRN Q4HRS PRN PO COUGH 07/01/20 17:45 Al Hydroxide/Mg Hydroxide (Mylanta Plus Xs) 15 ml PRN Q2HR PRN PO DYSPEPSIA 07/01/20 17:45 Magnesium Hydroxide (Milk Of Magnesia) 2,400 mg PRN Q4HRS PRN PO CONSTIPATION 07/01/20 17:45 07/03/20 22:04 Olanzapine (ZyPREXA ZYDIS) 5 mg PRN Q2HRS PRN PO ANXIETY / AGITATION 07/02/20 09:45 07/05/20 13:30 Clozapine (Clozaril) 150 mg HS PO 07/02/20 21:00 07/10/20 14:23 DC 07/09/20 20:06 Ziprasidone (Geodon Im) 40 mg DAILY IM 07/02/20 11:15 07/04/20 17:18 DC 07/02/20 11:15 Lorazepam (Ativan Inj) 0.5 mg DAILY IM 07/03/20 14:30 07/03/20 19:35 DC 07/03/20 15:05 Lorazepam (Ativan Inj) 0.5 mg BID IM 07/03/20 21:00 07/04/20 17:18 DC 07/03/20 22:04 Lorazepam (Ativan Inj) 1 mg 1X ONCE IM 07/05/20 18:45 07/05/20 18:46 DC 07/05/20 20:46 Lorazepam (Ativan Inj) 1 mg DAILY IM 07/06/20 09:00 07/16/20 20:06 DC 07/15/20 08:30 Psyllium Hydrophilic Mucilloid (Metamucil) 1 pkt HS PO 07/05/20 21:30 07/17/20 21:04 Estradiol (Estrace) 1 barbara QMTH@2100 VG 07/06/20 21:00 07/17/20 21:16 Multi-Ingred Cream/Lotion/Oil/ Oint (Hydrocerin) 1 barbara PRN Q1HR PRN TP DRY SKIN / SCALING 07/08/20 12:30 Diphenhydramine HCl (Benadryl) 25 mg PRN Q4HRS PRN PO ITCHING 07/08/20 18:00 07/13/20 21:57 Clozapine (Clozaril) 175 mg HS PO 07/10/20 21:00 07/17/20 18:08 DC 07/16/20 20:14 Divalproex Sodium (Depakote Sprinkles) 500 mg BID PO 07/10/20 21:00 07/14/20 16:36 DC 07/14/20 07:53 Divalproex Sodium (Depakote Sprinkles) 500 mg DAILY PO 07/15/20 09:00 07/17/20 06:15 Divalproex Sodium (Depakote Sprinkles) 750 mg QHS PO 07/14/20 21:00 07/17/20 21:04 Clozapine (Clozaril) 200 mg HS PO 07/17/20 21:00 07/17/20 21:04 Current Medications Medications (Trade) Dose Ordered Sig/Bora Route PRN Reason Start Time Stop Time Status Last Admin Dose Admin Clozapine (Clozaril) 200 mg HS PO 07/17/20 21:00 07/17/20 21:04 I have reviewed the current psychotropics carefully including drug interactions. Risk benefit ratio favors no change other than as noted in my dictated progress note. Diagnosis: Problems: (1) Schizoaffective disorder, bipolar type (2) Impulse control disorder, unspecified (3) Anxiety disorder, unspecified (4) Bipolar affective, manic, severe w/ psych KIERSTEN WATT MD Jul 17, 2020 21:27
--- NOTE | 2020-07-17 21:54 | PDOC ---
Exam Note: Julian Note: Please also refer to the separate dictated note~for this date of service dictated separately.~Patient seen individually. Discussed the patient with Nursing staff reviewed the chart.~Reviewed interim history and current functioning. Reviewed vital signs,~Labs/ Radiology~and current medications noted below. Continue current treatment with the changes noted in the dictated addendum note Assessment: Vital Signs/I&O: Vital Signs Date Time Temp Pulse Resp B/P (MAP) Pulse Ox O2 Delivery O2 Flow Rate FiO2 07/17/20 16:02 98.0 107 18 120/78 (92) 94 07/16/20 15:57 Room Air I & O 07/16/20 07/16/20 07/17/20 15:00 23:00 07:00 Intake Total 480 ml 1320 ml Balance 480 ml 1320 ml Labs: Laboratory Tests Test 07/17/20 06:05 White Blood Count 4.4 x10^3/uL (4.0-11.0) Red Blood Count 3.98 x10^6/uL (3.50-5.40) Hemoglobin 11.1 g/dL (12.0-15.5) L Hematocrit 34.4 % (36.0-47.0) L Mean Corpuscular Volume 86 fL (79-100) Mean Corpuscular Hemoglobin 28 pg (25-35) Mean Corpuscular Hemoglobin Concent 32 g/dL (31-37) Red Cell Distribution Width 16.6 % (11.5-14.5) H Platelet Count 165 x10^3/uL (140-400) Neutrophils (%) (Auto) 54 % (31-73) Lymphocytes (%) (Auto) 25 % (24-48) Monocytes (%) (Auto) 16 % (0-9) H Eosinophils (%) (Auto) 5 % (0-3) H Basophils (%) (Auto) 1 % (0-3) Neutrophils # (Auto) 2.4 x10^3uL (1.8-7.7) Lymphocytes # (Auto) 1.1 x10^3/uL (1.0-4.8) Monocytes # (Auto) 0.7 x10^3/uL (0.0-1.1) Eosinophils # (Auto) 0.2 x10^3/uL (0.0-0.7) Basophils # (Auto) 0.0 x10^3/uL (0.0-0.2) Segmented Neutrophils % 42 % (35-66) Band Neutrophils % 3 % (0-9) Lymphocytes % 30 % (24-48) Monocytes % 14 % (0-10) H Eosinophils % 9 % (0-5) H Basophils % 1 % (0-3) Myelocytes % 1 % (0-0) H Platelet Estimate Adequate (ADEQUATE) Sodium Level 144 mmol/L (136-145) Potassium Level 4.3 mmol/L (3.5-5.1) Chloride Level 108 mmol/L (98-107) H Carbon Dioxide Level 30 mmol/L (21-32) Anion Gap 6 (6-14) Blood Urea Nitrogen 20 mg/dL (7-20) Creatinine 0.8 mg/dL (0.6-1.0) Estimated GFR (Cockcroft-Gault) 70.7 BUN/Creatinine Ratio 25 (6-20) H Glucose Level 99 mg/dL (70-99) Calcium Level 9.0 mg/dL (8.5-10.1) Total Bilirubin 0.2 mg/dL (0.2-1.0) Aspartate Amino Transferase (AST) 29 U/L (15-37) Alanine Aminotransferase (ALT) 32 U/L (14-59) Alkaline Phosphatase 84 U/L (46-116) Ammonia 12 mcmol/L (11-34) Total Protein 6.4 g/dL (6.4-8.2) Albumin 2.6 g/dL (3.4-5.0) L Albumin/Globulin Ratio 0.7 (1.0-1.7) L Valproic Acid Level 73 mcg/mL (50-100) Valproic Acid Last Dose Date 07/16/20 Valproic Acid Last Dose Time 2100 Current Medications: Meds: Current Medications Medications (Trade) Dose Ordered Sig/Bora Route PRN Reason Start Time Stop Time Status Last Admin Dose Admin Clozapine (Clozaril) 200 mg HS PO 07/17/20 21:00 07/17/20 21:04 I have reviewed the current psychotropics carefully including drug interactions. Risk benefit ratio favors no change other than as noted in my dictated progress note. Diagnosis: Problems: (1) Schizoaffective disorder, bipolar type (2) Impulse control disorder, unspecified (3) Anxiety disorder, unspecified (4) Bipolar affective, manic, severe w/ psych KIERSTEN WATT MD Jul 17, 2020 21:54
--- NOTE | 2020-07-18 02:10 | NUR ---
Nursing Note The patient was calm and compliant this shift. The patient took her medication whole. The patient was appropriate during interactions with this nurse. The patient was alert and oriented to self, location and date.
[2020-07-18] MEDS: traMADol 50 MG TABLET PO PRN (05:54)
[2020-07-18] MEDS: DICLOFENAC SODIUM 1% TOPICAL GEL 100GM TUBE. TP PRN (06:00)
[2020-07-18 06:02] VITALS: BP 111/69
[2020-07-18] MEDS: DIVALPROEX 125 MG CAP.SPRINK PO SCH ×2 (08:27→20:06)
[2020-07-18] MEDS: FUROSEMIDE 20 MG TABLET PO SCH (08:27)
[2020-07-18] MEDS: prednisoLONE ACETATE 1% OPHTH SUSPENSION 5ML BOTTLE. OD SCH (08:27)
[2020-07-18] MEDS: MEMANTINE 10 MG TABLET. PO SCH ×2 (08:27→20:06)
--- NOTE | 2020-07-18 14:14 | NUR ---
Patient in room at time of assessment. Patient c/o pain in lower back and legs ankles. She had pain medication given from preious nurse as well as gel rubbed on area. We will reasses in an hour to see how she is doing. Patient is calm and cooperative and takes medications whole with no problems. Patient has no complaints and there are no further concerns at this time.
--- NOTE | 2020-07-18 15:32 | TX PLAN ---
Interdisciplinary Tx Plan Admission Information Jul 01, 2020 at 14:47 Legal Status (on Admission): Voluntary DPOA/Guardian Name: Hardik Smith Contact Other Contact Name: Joselito Other Contact Verified Code Status: Full Code Allergies: Coded Allergies: Benzodiazepines (Verified Allergy, Intermediate, Unknown, 12/29/17) clonazepam (Verified Allergy, Intermediate, Unknown, 12/29/17) lorazepam (Verified Allergy, Intermediate, Unknown, 12/29/17) lithium (Verified Allergy, Unknown, 03/20/20) Diagnoses Primary Diagnosis: Schizoaffective D/O, Bipolar type Reasons for Admission: Sig. Change Sleep, Hallucinations, Suspicious/paranoid, Poor impulse control Problem in Patient's Words: According to the intake, pt is manic, having insomnia, outbursts, throwing coffee, grandiose and hallucinating Problems Active Problems: amita yelling out sexually inappropriate Inactive Problems: medication compliant Pt Strengths/Limitations Ability for [place]: Poor Cognitive Functioning/Ability: Fair Communication Skills/Ability: Fair Financial Resources: Good Insight/Judgement: Poor Intellectual Ability: Fair Physical Health: Fair Social Skills: Poor Stability in Family: Good Stability in School/Work: Poor Verbal Skills: Fair Discharge Criteria Discharge Criteria: No need for close observ., Adequate arrangements @DC, Improved behavior, Improved mood/thought Preliminary Discharge Plan Preliminary DC Plan: Current Living Arrange. Special Precautions Fall Risk: Low Initial D/C Plan Pt to return to [facility] Identified Discharge Needs: At this time, it is unknown if pt will return to [facility] or not. Currently Utilized Resources Currently Utilized Resources/P: Primary Care Physician Identified Problems/Hx/Goals Objectives/Short-Term Goals Short Term Goals: Dec. Anxiety/Panic, Dec. Hallucination/Delus, Dec. Outbursts, Medication Stabilization, Monitor Med Effects, Promote Coping Skill Short Term Goals in Patient's: N/A Interventions/Frequency Staff Interventions/Frequency&: Psychiatrist to assess pt at least 3x per week for medication management. Social Work to assess pt at least 2x per week for barriers to care and discharge planning goals. Nursing to assess medication effects, behavioral management and completion of 15 minute checks daily. Encourage group participation in activities (if applicable) or 1:1 engagement based off activity dept goals. 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 Education: Pt completed 12th grade (High school); the continued on to [employer]. Community Follow-up Primary Care Physician Referral for psychiatry follow-up Treatment Plan Explained Patient/Endoscopy Nurse had this treatment plan explained to him/her as indicated by the signature below and has been given the opportunity to ask questions and make suggestions: Date: Patient/Endoscopy Nurse Signature: Status Update Update Pt is eating 100% of meals and sleeping on average 5.75 per night. Pt is medication compliant, pleasant and calmer with less manic episodes. Pt has been talking to family over the phone and only has major complaints of pain in her legs. Pt has exceeded her group attendance goals as she has come to 6 groups with full to moderate participation. Pt family called on Friday to have information sent over to [facility] as they hope to have her return there now instead of the post acute facility. SW will follow-up with pt family and the facility to finalize all discharge plans with the goal for discharge on Monday 07/24. WILDA ROONEY Jul 18, 2020 15:32
[2020-07-18 15:57] VITALS: BP 143/85
[2020-07-18] MEDS: MIRTAZAPINE 7.5 MG TABLET. PO SCH (20:05)
[2020-07-18] MEDS: cloZAPine 100 MG TABLET PO SCH (20:06)
[2020-07-18] MEDS: LEVOTHYROXINE 50 MCG TABLET PO SCH (20:06)
[2020-07-18] MEDS: PSYLLIUM SEED (WITH SUGAR) PACKET. PO SCH (20:08)
--- NOTE | 2020-07-18 21:01 | PDOC ---
Exam Note: Julian Note: Please also refer to the separate dictated note~for this date of service dictated separately.~Patient seen individually. Discussed the patient with Nursing staff reviewed the chart.~Reviewed interim history and current functioning. Reviewed vital signs,~Labs/ Radiology~and current medications noted below. Continue current treatment with the changes noted in the dictated addendum note Assessment: Vital Signs/I&O: Vital Signs Date Time Temp Pulse Resp B/P (MAP) Pulse Ox O2 Delivery O2 Flow Rate FiO2 07/18/20 15:57 98.7 105 20 143/85 (104) 94 07/18/20 05:54 Room Air I & O 07/17/20 07/17/20 07/18/20 15:00 23:00 07:00 Intake Total 1320 ml 1140 ml Balance 1320 ml 1140 ml Current Medications: Meds: Current Medications Medications (Trade) Dose Ordered Sig/Bora Route PRN Reason Start Time Stop Time Status Last Admin Dose Admin Diclofenac Sodium (Voltaren) 1 barbara PRN QID PRN TP MUSCLE PAIN 07/01/20 15:00 07/18/20 06:00 Divalproex Sodium (Depakote Sprinkles) 375 mg BID PO 07/01/20 21:00 07/10/20 14:23 DC 07/10/20 08:36 Docusate Sodium (Colace) 100 mg PRN BID PRN PO HARD STOOLS 07/01/20 15:00 07/04/20 19:14 Estradiol (Estrace) 1 barbara QMTH VG 07/03/20 16:00 07/06/20 17:44 DC Fluvoxamine Maleate (Luvox) 25 mg HS PO 07/01/20 21:00 07/02/20 09:40 DC 07/01/20 20:22 Furosemide (Lasix) 20 mg DAILY PO 07/02/20 09:00 07/18/20 08:27 Levothyroxine Sodium (Synthroid) 50 mcg HS PO 07/01/20 21:00 07/18/20 20:06 Memantine (Namenda) 10 mg BID PO 07/01/20 21:00 07/18/20 20:06 Mirtazapine (Remeron) 7.5 mg QHS PO 07/01/20 21:00 07/18/20 20:05 Olanzapine (ZyPREXA ZYDIS) 5 mg PRN BID PRN PO ANXIETY / AGITATION 07/01/20 15:00 07/02/20 09:40 DC 07/01/20 23:27 Artificial Tears (Refresh Classic) 1 drop PRN TID PRN OU DRY EYE 07/01/20 15:00 Prednisolone Acetate (Pred Forte) 1 drop DAILY OD 07/02/20 09:00 07/18/20 08:27 Tramadol HCl (Ultram) 50 mg PRN Q8HRS PRN PO PAIN 07/01/20 15:00 07/18/20 05:54 Trazodone HCl (Desyrel) 100 mg PRN QHS PRN PO INSOMNIA, MAY REPEAT X1 07/01/20 15:00 07/17/20 21:05 Ziprasidone (Geodon Im) 20 mg PRN BID PRN IM ANXIETY / AGITATION 07/01/20 15:00 07/02/20 10:56 DC 07/01/20 21:53 Guaifenesin/ Codeine Phosphate (Robitussin Ac) 5 ml PRN Q4HRS PRN PO COUGH 07/01/20 17:45 Al Hydroxide/Mg Hydroxide (Mylanta Plus Xs) 15 ml PRN Q2HR PRN PO DYSPEPSIA 07/01/20 17:45 Magnesium Hydroxide (Milk Of Magnesia) 2,400 mg PRN Q4HRS PRN PO CONSTIPATION 07/01/20 17:45 07/03/20 22:04 Olanzapine (ZyPREXA ZYDIS) 5 mg PRN Q2HRS PRN PO ANXIETY / AGITATION 07/02/20 09:45 07/05/20 13:30 Clozapine (Clozaril) 150 mg HS PO 07/02/20 21:00 07/10/20 14:23 DC 07/09/20 20:06 Ziprasidone (Geodon Im) 40 mg DAILY IM 07/02/20 11:15 07/04/20 17:18 DC 07/02/20 11:15 Lorazepam (Ativan Inj) 0.5 mg DAILY IM 07/03/20 14:30 07/03/20 19:35 DC 07/03/20 15:05 Lorazepam (Ativan Inj) 0.5 mg BID IM 07/03/20 21:00 07/04/20 17:18 DC 07/03/20 22:04 Lorazepam (Ativan Inj) 1 mg 1X ONCE IM 07/05/20 18:45 07/05/20 18:46 DC 07/05/20 20:46 Lorazepam (Ativan Inj) 1 mg DAILY IM 07/06/20 09:00 07/16/20 20:06 DC 07/15/20 08:30 Psyllium Hydrophilic Mucilloid (Metamucil) 1 pkt HS PO 07/05/20 21:30 07/18/20 20:08 Estradiol (Estrace) 1 barbara QMTH@2100 VG 07/06/20 21:00 07/17/20 21:16 Multi-Ingred Cream/Lotion/Oil/ Oint (Hydrocerin) 1 barbara PRN Q1HR PRN TP DRY SKIN / SCALING 07/08/20 12:30 Diphenhydramine HCl (Benadryl) 25 mg PRN Q4HRS PRN PO ITCHING 07/08/20 18:00 07/13/20 21:57 Clozapine (Clozaril) 175 mg HS PO 07/10/20 21:00 07/17/20 18:08 DC 07/16/20 20:14 Divalproex Sodium (Depakote Sprinkles) 500 mg BID PO 07/10/20 21:00 07/14/20 16:36 DC 07/14/20 07:53 Divalproex Sodium (Depakote Sprinkles) 500 mg DAILY PO 07/15/20 09:00 07/18/20 08:27 Divalproex Sodium (Depakote Sprinkles) 750 mg QHS PO 07/14/20 21:00 07/18/20 20:06 Clozapine (Clozaril) 200 mg HS PO 07/17/20 21:00 07/18/20 20:06 I have reviewed the current psychotropics carefully including drug interactions. Risk benefit ratio favors no change other than as noted in my dictated progress note. Diagnosis: Problems: (1) Schizoaffective disorder, bipolar type (2) Impulse control disorder, unspecified (3) Anxiety disorder, unspecified (4) Bipolar affective, manic, severe w/ psych KIERSTEN WATT MD Jul 18, 2020 21:01
--- NOTE | 2020-07-19 05:00 | NUR ---
Nursing Note The patient was demanding and irritable during interactions with this nurse. The patient was compliant with her medications and took them whole. The patient was alert to self, date and location.
[2020-07-19 06:05] VITALS: BP 113/73
[2020-07-19] MEDS: DIVALPROEX 125 MG CAP.SPRINK PO SCH ×2 (07:56→19:52)
[2020-07-19] MEDS: MEMANTINE 10 MG TABLET. PO SCH ×2 (07:56→19:54)
[2020-07-19] MEDS: prednisoLONE ACETATE 1% OPHTH SUSPENSION 5ML BOTTLE. OD SCH (07:56)
[2020-07-19] MEDS: FUROSEMIDE 20 MG TABLET PO SCH (07:56)
--- NOTE | 2020-07-19 08:15 | NUR ---
ROSALINE received a series of text messages from ROSALINE Ewing at [facility], wanting to check in on how pt is doing. ROSALINE and Kaylin talked about having pt return to them on Friday as her discharge plan; both parties will plan to follow up with one another on Friday to make final discharge arrangements.
--- NOTE | 2020-07-19 09:52 | PDOC ---
Exam Note: Julian Note: This note is a late entry for 07/17/2020 covers elements not covered in my initial note. Subjective: The patient was seen face to face in the evening of 07/17/2020 with Renetta MUÑOZ, discussed and reviewed the chart. The patient slept 6-3/4 hours previous night. Overall per nursing report the patient is doing better. She has been more cooperative, still somewhat hyperverbal. Speech is garbled but much improved. Review of Systems: No CV, , pulmonary, eye, ENT system symptoms on review. Mental Status Exam: The patient is reasonably oriented. Speech slightly garbled. Abstraction is fair. Computation is impaired. Language function is intact. Attention span is short. Mood and affect anxious, labile but better than before. No suicidal or homicidal ideation. Laboratory Data: Reviewed. Impression: Schizoaffective disorder bipolar type, manic with psychotic features. Anxiety disorder unspecified. Impulse control disorder unspecified. Plan: No change from initial note. The patients absolute neutrophil count is unremarkable and we will increase the Clozaril to 200 mg p.o. h.s. Valproic acid level is therapeutic. Continue rest unchanged. Assessment: Vital Signs/I&O: Vital Signs Date Time Temp Pulse Resp B/P (MAP) Pulse Ox O2 Delivery O2 Flow Rate FiO2 07/19/20 06:05 98.3 84 16 113/73 (86) 94 07/18/20 05:54 Room Air I & O 07/18/20 07/18/20 07/19/20 15:00 23:00 07:00 Intake Total 1460 ml 960 ml Balance 1460 ml 960 ml Current Medications: Meds: Current Medications Medications (Trade) Dose Ordered Sig/Bora Route PRN Reason Start Time Stop Time Status Last Admin Dose Admin Diclofenac Sodium (Voltaren) 1 barbara PRN QID PRN TP MUSCLE PAIN 07/01/20 15:00 07/18/20 06:00 Divalproex Sodium (Depakote Sprinkles) 375 mg BID PO 07/01/20 21:00 07/10/20 14:23 DC 07/10/20 08:36 Docusate Sodium (Colace) 100 mg PRN BID PRN PO HARD STOOLS 07/01/20 15:00 07/04/20 19:14 Estradiol (Estrace) 1 barbara QMTH VG 07/03/20 16:00 07/06/20 17:44 DC Fluvoxamine Maleate (Luvox) 25 mg HS PO 07/01/20 21:00 07/02/20 09:40 DC 07/01/20 20:22 Furosemide (Lasix) 20 mg DAILY PO 07/02/20 09:00 07/19/20 07:56 Levothyroxine Sodium (Synthroid) 50 mcg HS PO 07/01/20 21:00 07/18/20 20:06 Memantine (Namenda) 10 mg BID PO 07/01/20 21:00 07/19/20 07:56 Mirtazapine (Remeron) 7.5 mg QHS PO 07/01/20 21:00 07/18/20 20:05 Olanzapine (ZyPREXA ZYDIS) 5 mg PRN BID PRN PO ANXIETY / AGITATION 07/01/20 15:00 07/02/20 09:40 DC 07/01/20 23:27 Artificial Tears (Refresh Classic) 1 drop PRN TID PRN OU DRY EYE 07/01/20 15:00 Prednisolone Acetate (Pred Forte) 1 drop DAILY OD 07/02/20 09:00 07/19/20 07:56 Tramadol HCl (Ultram) 50 mg PRN Q8HRS PRN PO PAIN 07/01/20 15:00 07/18/20 05:54 Trazodone HCl (Desyrel) 100 mg PRN QHS PRN PO INSOMNIA, MAY REPEAT X1 07/01/20 15:00 07/17/20 21:05 Ziprasidone (Geodon Im) 20 mg PRN BID PRN IM ANXIETY / AGITATION 07/01/20 15:00 07/02/20 10:56 DC 07/01/20 21:53 Guaifenesin/ Codeine Phosphate (Robitussin Ac) 5 ml PRN Q4HRS PRN PO COUGH 07/01/20 17:45 Al Hydroxide/Mg Hydroxide (Mylanta Plus Xs) 15 ml PRN Q2HR PRN PO DYSPEPSIA 07/01/20 17:45 Magnesium Hydroxide (Milk Of Magnesia) 2,400 mg PRN Q4HRS PRN PO CONSTIPATION 07/01/20 17:45 07/03/20 22:04 Olanzapine (ZyPREXA ZYDIS) 5 mg PRN Q2HRS PRN PO ANXIETY / AGITATION 07/02/20 09:45 07/05/20 13:30 Clozapine (Clozaril) 150 mg HS PO 07/02/20 21:00 07/10/20 14:23 DC 07/09/20 20:06 Ziprasidone (Geodon Im) 40 mg DAILY IM 07/02/20 11:15 07/04/20 17:18 DC 07/02/20 11:15 Lorazepam (Ativan Inj) 0.5 mg DAILY IM 07/03/20 14:30 07/03/20 19:35 DC 07/03/20 15:05 Lorazepam (Ativan Inj) 0.5 mg BID IM 07/03/20 21:00 07/04/20 17:18 DC 07/03/20 22:04 Lorazepam (Ativan Inj) 1 mg 1X ONCE IM 07/05/20 18:45 07/05/20 18:46 DC 07/05/20 20:46 Lorazepam (Ativan Inj) 1 mg DAILY IM 07/06/20 09:00 07/16/20 20:06 DC 07/15/20 08:30 Psyllium Hydrophilic Mucilloid (Metamucil) 1 pkt HS PO 07/05/20 21:30 07/18/20 20:08 Estradiol (Estrace) 1 barbara QMTH@2100 VG 07/06/20 21:00 07/17/20 21:16 Multi-Ingred Cream/Lotion/Oil/ Oint (Hydrocerin) 1 barbara PRN Q1HR PRN TP DRY SKIN / SCALING 07/08/20 12:30 Diphenhydramine HCl (Benadryl) 25 mg PRN Q4HRS PRN PO ITCHING 07/08/20 18:00 07/13/20 21:57 Clozapine (Clozaril) 175 mg HS PO 07/10/20 21:00 07/17/20 18:08 DC 07/16/20 20:14 Divalproex Sodium (Depakote Sprinkles) 500 mg BID PO 07/10/20 21:00 07/14/20 16:36 DC 07/14/20 07:53 Divalproex Sodium (Depakote Sprinkles) 500 mg DAILY PO 07/15/20 09:00 07/19/20 07:56 Divalproex Sodium (Depakote Sprinkles) 750 mg QHS PO 07/14/20 21:00 07/18/20 20:06 Clozapine (Clozaril) 200 mg HS PO 07/17/20 21:00 07/18/20 20:06 I have reviewed the current psychotropics carefully including drug interactions. Risk benefit ratio favors no change other than as noted in my dictated progress note. Diagnosis: Problems: (1) Schizoaffective disorder, bipolar type (2) Impulse control disorder, unspecified (3) Anxiety disorder, unspecified (4) Bipolar affective, manic, severe w/ psych KIERSTEN WATT MD Jul 19, 2020 09:52
--- NOTE | 2020-07-19 10:23 | PDOC ---
Exam Note: Julian Note: This note is a late entry for 07/18/2020 covers elements not covered in my initial note. Subjective: The patient was seen face to face in the morning of 07/18/2020 for a treatment team meeting with Leia Baez and Barbi (social welfare administrator), Yasmin Guerrero and Chana, activity therapy and Stacie MUÑOZ, discussed and reviewed the chart. The patient slept 6-1/2 hours previous night. She is reportedly being accepted back at [facility]. She is ambivalent about this. She complains of pain in ankles and wrist. Review of Systems: No CV, , pulmonary, eye, ENT system symptoms on review. Mental Status Exam: The patient is reasonably oriented. Speech coherent, somewhat pressured. Abstraction is fair. Computation is impaired. Language function is intact. Mood and affect appears more euthymic, less manic. No suicidal or homicidal ideation. Laboratory Data: Reviewed. Impression: Schizoaffective disorder bipolar type, manic with psychotic features. Anxiety disorder unspecified. Impulse control disorder unspecified. Plan: No change from initial note. Absolute neutrophil count is unremarkable on the Clozaril and we have increased the Clozaril to 200 mg h.s Assessment: Vital Signs/I&O: Vital Signs Date Time Temp Pulse Resp B/P (MAP) Pulse Ox O2 Delivery O2 Flow Rate FiO2 07/19/20 06:05 98.3 84 16 113/73 (86) 94 07/18/20 05:54 Room Air I & O 07/18/20 07/18/20 07/19/20 15:00 23:00 07:00 Intake Total 1460 ml 960 ml Balance 1460 ml 960 ml Current Medications: Meds: Current Medications Medications (Trade) Dose Ordered Sig/Bora Route PRN Reason Start Time Stop Time Status Last Admin Dose Admin Diclofenac Sodium (Voltaren) 1 barbara PRN QID PRN TP MUSCLE PAIN 07/01/20 15:00 07/18/20 06:00 Divalproex Sodium (Depakote Sprinkles) 375 mg BID PO 07/01/20 21:00 07/10/20 14:23 DC 07/10/20 08:36 Docusate Sodium (Colace) 100 mg PRN BID PRN PO HARD STOOLS 07/01/20 15:00 07/04/20 19:14 Estradiol (Estrace) 1 barbara QMTH VG 07/03/20 16:00 07/06/20 17:44 DC Fluvoxamine Maleate (Luvox) 25 mg HS PO 07/01/20 21:00 07/02/20 09:40 DC 07/01/20 20:22 Furosemide (Lasix) 20 mg DAILY PO 07/02/20 09:00 07/19/20 07:56 Levothyroxine Sodium (Synthroid) 50 mcg HS PO 07/01/20 21:00 07/18/20 20:06 Memantine (Namenda) 10 mg BID PO 07/01/20 21:00 07/19/20 07:56 Mirtazapine (Remeron) 7.5 mg QHS PO 07/01/20 21:00 07/18/20 20:05 Olanzapine (ZyPREXA ZYDIS) 5 mg PRN BID PRN PO ANXIETY / AGITATION 07/01/20 15:00 07/02/20 09:40 DC 07/01/20 23:27 Artificial Tears (Refresh Classic) 1 drop PRN TID PRN OU DRY EYE 07/01/20 15:00 Prednisolone Acetate (Pred Forte) 1 drop DAILY OD 07/02/20 09:00 07/19/20 07:56 Tramadol HCl (Ultram) 50 mg PRN Q8HRS PRN PO PAIN 07/01/20 15:00 07/18/20 05:54 Trazodone HCl (Desyrel) 100 mg PRN QHS PRN PO INSOMNIA, MAY REPEAT X1 07/01/20 15:00 07/17/20 21:05 Ziprasidone (Geodon Im) 20 mg PRN BID PRN IM ANXIETY / AGITATION 07/01/20 15:00 07/02/20 10:56 DC 07/01/20 21:53 Guaifenesin/ Codeine Phosphate (Robitussin Ac) 5 ml PRN Q4HRS PRN PO COUGH 07/01/20 17:45 Al Hydroxide/Mg Hydroxide (Mylanta Plus Xs) 15 ml PRN Q2HR PRN PO DYSPEPSIA 07/01/20 17:45 Magnesium Hydroxide (Milk Of Magnesia) 2,400 mg PRN Q4HRS PRN PO CONSTIPATION 07/01/20 17:45 07/03/20 22:04 Olanzapine (ZyPREXA ZYDIS) 5 mg PRN Q2HRS PRN PO ANXIETY / AGITATION 07/02/20 09:45 07/05/20 13:30 Clozapine (Clozaril) 150 mg HS PO 07/02/20 21:00 07/10/20 14:23 DC 07/09/20 20:06 Ziprasidone (Geodon Im) 40 mg DAILY IM 07/02/20 11:15 07/04/20 17:18 DC 07/02/20 11:15 Lorazepam (Ativan Inj) 0.5 mg DAILY IM 07/03/20 14:30 07/03/20 19:35 DC 07/03/20 15:05 Lorazepam (Ativan Inj) 0.5 mg BID IM 07/03/20 21:00 07/04/20 17:18 DC 07/03/20 22:04 Lorazepam (Ativan Inj) 1 mg 1X ONCE IM 07/05/20 18:45 07/05/20 18:46 DC 07/05/20 20:46 Lorazepam (Ativan Inj) 1 mg DAILY IM 07/06/20 09:00 07/16/20 20:06 DC 07/15/20 08:30 Psyllium Hydrophilic Mucilloid (Metamucil) 1 pkt HS PO 07/05/20 21:30 07/18/20 20:08 Estradiol (Estrace) 1 barbara QMTH@2100 VG 07/06/20 21:00 07/17/20 21:16 Multi-Ingred Cream/Lotion/Oil/ Oint (Hydrocerin) 1 barbara PRN Q1HR PRN TP DRY SKIN / SCALING 07/08/20 12:30 Diphenhydramine HCl (Benadryl) 25 mg PRN Q4HRS PRN PO ITCHING 07/08/20 18:00 07/13/20 21:57 Clozapine (Clozaril) 175 mg HS PO 07/10/20 21:00 07/17/20 18:08 DC 07/16/20 20:14 Divalproex Sodium (Depakote Sprinkles) 500 mg BID PO 07/10/20 21:00 07/14/20 16:36 DC 07/14/20 07:53 Divalproex Sodium (Depakote Sprinkles) 500 mg DAILY PO 07/15/20 09:00 07/19/20 07:56 Divalproex Sodium (Depakote Sprinkles) 750 mg QHS PO 07/14/20 21:00 07/18/20 20:06 Clozapine (Clozaril) 200 mg HS PO 07/17/20 21:00 07/18/20 20:06 I have reviewed the current psychotropics carefully including drug interactions. Risk benefit ratio favors no change other than as noted in my dictated progress note. Diagnosis: Problems: (1) Schizoaffective disorder, bipolar type (2) Impulse control disorder, unspecified (3) Anxiety disorder, unspecified (4) Bipolar affective, manic, severe w/ psych KIERSTEN WATT MD Jul 19, 2020 10:23
--- NOTE | 2020-07-19 12:09 | NUR ---
ROSALINE returned call to Victor Manuel, pt dtr, to go over plans for pt to return back to [facility]. Victor Manuel reports that pt would be better suited at [facility] as she knows everyone there and they are back to doing groups and allowing visits, which she believes that pt would be better for pt psych. Victor Manuel reports concerns that pt may need the [facility] placement, but wonders if the [facility] in [place] would be a better fit for her. She along with pt is looking at all options and want to just keep them open. Eventually Victor Manuel wants to have pt live with them once they can find an appropriate house/space to make it happen. ROSALINE informed Shelleywillian that pt would be discharged back to [facility] on Friday and would work with Kaylin on the transport time.
[2020-07-19 15:27] VITALS: BP 116/69
--- NOTE | 2020-07-19 18:30 | NUR ---
Patient has been labile, demanding at times, cooperative with medications, and disorganized. Patient was irritable after a morning phone call and was shouting at staff. She has been demanding at times, usually demanding more drinks, e.g. lemon-inupiat soda, cranberry juice, Powerades. She has abnormal movements, mostly in the upper extremities and face. Will continue to monitor and report to oncoming shift.
[2020-07-19] MEDS: MIRTAZAPINE 7.5 MG TABLET. PO SCH (19:51)
[2020-07-19] MEDS: PSYLLIUM SEED (WITH SUGAR) PACKET. PO SCH (19:51)
[2020-07-19] MEDS: cloZAPine 100 MG TABLET PO SCH (19:52)
[2020-07-19] MEDS: LEVOTHYROXINE 50 MCG TABLET PO SCH (19:53)
--- NOTE | 2020-07-19 21:04 | PDOC ---
Exam Note: Julian Note: Please also refer to the separate dictated note~for this date of service dictated separately.~Patient seen individually. Discussed the patient with Nursing staff reviewed the chart.~Reviewed interim history and current functioning. Reviewed vital signs,~Labs/ Radiology~and current medications noted below. Continue current treatment with the changes noted in the dictated addendum note Assessment: Vital Signs/I&O: Vital Signs Date Time Temp Pulse Resp B/P (MAP) Pulse Ox O2 Delivery O2 Flow Rate FiO2 07/19/20 15:27 98.2 102 18 116/69 (85) 97 07/18/20 05:54 Room Air I & O 07/18/20 07/18/20 07/19/20 15:00 23:00 07:00 Intake Total 1460 ml 960 ml Balance 1460 ml 960 ml Current Medications: Meds: Current Medications Medications (Trade) Dose Ordered Sig/Bora Route PRN Reason Start Time Stop Time Status Last Admin Dose Admin Diclofenac Sodium (Voltaren) 1 barbara PRN QID PRN TP MUSCLE PAIN 07/01/20 15:00 07/18/20 06:00 Divalproex Sodium (Depakote Sprinkles) 375 mg BID PO 07/01/20 21:00 07/10/20 14:23 DC 07/10/20 08:36 Docusate Sodium (Colace) 100 mg PRN BID PRN PO HARD STOOLS 07/01/20 15:00 07/04/20 19:14 Estradiol (Estrace) 1 barbara QMTH VG 07/03/20 16:00 07/06/20 17:44 DC Fluvoxamine Maleate (Luvox) 25 mg HS PO 07/01/20 21:00 07/02/20 09:40 DC 07/01/20 20:22 Furosemide (Lasix) 20 mg DAILY PO 07/02/20 09:00 07/19/20 07:56 Levothyroxine Sodium (Synthroid) 50 mcg HS PO 07/01/20 21:00 07/19/20 19:53 Memantine (Namenda) 10 mg BID PO 07/01/20 21:00 07/19/20 19:54 Mirtazapine (Remeron) 7.5 mg QHS PO 07/01/20 21:00 07/19/20 19:51 Olanzapine (ZyPREXA ZYDIS) 5 mg PRN BID PRN PO ANXIETY / AGITATION 07/01/20 15:00 07/02/20 09:40 DC 07/01/20 23:27 Artificial Tears (Refresh Classic) 1 drop PRN TID PRN OU DRY EYE 07/01/20 15:00 Prednisolone Acetate (Pred Forte) 1 drop DAILY OD 07/02/20 09:00 07/19/20 07:56 Tramadol HCl (Ultram) 50 mg PRN Q8HRS PRN PO PAIN 07/01/20 15:00 07/18/20 05:54 Trazodone HCl (Desyrel) 100 mg PRN QHS PRN PO INSOMNIA, MAY REPEAT X1 07/01/20 15:00 07/17/20 21:05 Ziprasidone (Geodon Im) 20 mg PRN BID PRN IM ANXIETY / AGITATION 07/01/20 15:00 07/02/20 10:56 DC 07/01/20 21:53 Guaifenesin/ Codeine Phosphate (Robitussin Ac) 5 ml PRN Q4HRS PRN PO COUGH 07/01/20 17:45 Al Hydroxide/Mg Hydroxide (Mylanta Plus Xs) 15 ml PRN Q2HR PRN PO DYSPEPSIA 07/01/20 17:45 Magnesium Hydroxide (Milk Of Magnesia) 2,400 mg PRN Q4HRS PRN PO CONSTIPATION 07/01/20 17:45 07/03/20 22:04 Olanzapine (ZyPREXA ZYDIS) 5 mg PRN Q2HRS PRN PO ANXIETY / AGITATION 07/02/20 09:45 07/05/20 13:30 Clozapine (Clozaril) 150 mg HS PO 07/02/20 21:00 07/10/20 14:23 DC 07/09/20 20:06 Ziprasidone (Geodon Im) 40 mg DAILY IM 07/02/20 11:15 07/04/20 17:18 DC 07/02/20 11:15 Lorazepam (Ativan Inj) 0.5 mg DAILY IM 07/03/20 14:30 07/03/20 19:35 DC 07/03/20 15:05 Lorazepam (Ativan Inj) 0.5 mg BID IM 07/03/20 21:00 07/04/20 17:18 DC 07/03/20 22:04 Lorazepam (Ativan Inj) 1 mg 1X ONCE IM 07/05/20 18:45 07/05/20 18:46 DC 07/05/20 20:46 Lorazepam (Ativan Inj) 1 mg DAILY IM 07/06/20 09:00 07/16/20 20:06 DC 07/15/20 08:30 Psyllium Hydrophilic Mucilloid (Metamucil) 1 pkt HS PO 07/05/20 21:30 07/19/20 19:51 Estradiol (Estrace) 1 barbara QMTH@2100 VG 07/06/20 21:00 07/17/20 21:16 Multi-Ingred Cream/Lotion/Oil/ Oint (Hydrocerin) 1 barbara PRN Q1HR PRN TP DRY SKIN / SCALING 07/08/20 12:30 Diphenhydramine HCl (Benadryl) 25 mg PRN Q4HRS PRN PO ITCHING 07/08/20 18:00 07/13/20 21:57 Clozapine (Clozaril) 175 mg HS PO 07/10/20 21:00 07/17/20 18:08 DC 07/16/20 20:14 Divalproex Sodium (Depakote Sprinkles) 500 mg BID PO 07/10/20 21:00 07/14/20 16:36 DC 07/14/20 07:53 Divalproex Sodium (Depakote Sprinkles) 500 mg DAILY PO 07/15/20 09:00 07/19/20 07:56 Divalproex Sodium (Depakote Sprinkles) 750 mg QHS PO 07/14/20 21:00 07/19/20 19:52 Clozapine (Clozaril) 200 mg HS PO 07/17/20 21:00 07/19/20 19:52 I have reviewed the current psychotropics carefully including drug interactions. Risk benefit ratio favors no change other than as noted in my dictated progress note. Diagnosis: Problems: (1) Bipolar affective, manic, severe w/ psych (2) Anxiety disorder, unspecified (3) Impulse control disorder, unspecified (4) Schizoaffective disorder, bipolar type KIERSTEN WATT MD Jul 19, 2020 21:03
--- NOTE | 2020-07-19 22:03 | NUR ---
Patient was in the day room watching tv with peers. She stated "this is my favorite movie" to nurse but was unable to say what movie it was. Patient was social with peers and compliant with medications. At one point the patient was yodeling while there was yodeling in the movie. No adverse behaviors noted this night.
[2020-07-20] MEDS: traMADol 50 MG TABLET PO PRN (00:08)
--- NOTE | 2020-07-20 00:08 | NUR ---
Patient yelling out multiple times, sounding startled. Patient states her back hurts. PRN tramadol and zyprexa given for pain and psychosis per ceciliar.
[2020-07-20 05:51] VITALS: BP 119/72
--- NOTE | 2020-07-20 07:36 | PDOC ---
Exam Note: Julian Note: This note is a late entry for 07/19/2020 covers elements not covered in my initial note. Subjective: The patient was seen face to face in the evening of 07/19/2020 with Adithya MUÑOZ, discussed and reviewed the chart. The patient slept 7-1/4 hours previous night. She was irritable in the morning but then after a phone call with family she was demanding, otherwise, doing better, less grandiose. Review of Systems: She is difficulty with her speech, less so than before. No CV, , pulmonary, eye, ENT system symptoms on review. Mental Status Exam: The patient is reasonably oriented. Speech still somewhat pressured, less so than before. Abstraction is fair. Computation is impaired. Language function is intact. Mood and affect amita seems to have subsided. No suicidal or homicidal ideation. Laboratory Data: Reviewed. Impression: Schizoaffective disorder bipolar type with psychotic features. Anxiety disorder unspecified. Impulse control disorder unspecified. Plan: No change from initial note. Absolute neutrophil count is unremarkable on the Clozaril which we have increased. Assessment: Vital Signs/I&O: Vital Signs Date Time Temp Pulse Resp B/P (MAP) Pulse Ox O2 Delivery O2 Flow Rate FiO2 07/20/20 05:51 97.4 98 18 119/72 (88) 95 07/18/20 05:54 Room Air I & O 07/19/20 07/19/20 07/20/20 15:00 23:00 07:00 Intake Total 1220 ml 960 ml Balance 1220 ml 960 ml Current Medications: Meds: Current Medications Medications (Trade) Dose Ordered Sig/Bora Route PRN Reason Start Time Stop Time Status Last Admin Dose Admin Diclofenac Sodium (Voltaren) 1 barbara PRN QID PRN TP MUSCLE PAIN 07/01/20 15:00 07/18/20 06:00 Divalproex Sodium (Depakote Sprinkles) 375 mg BID PO 07/01/20 21:00 07/10/20 14:23 DC 07/10/20 08:36 Docusate Sodium (Colace) 100 mg PRN BID PRN PO HARD STOOLS 07/01/20 15:00 07/04/20 19:14 Estradiol (Estrace) 1 barbara QMTH VG 07/03/20 16:00 07/06/20 17:44 DC Fluvoxamine Maleate (Luvox) 25 mg HS PO 07/01/20 21:00 07/02/20 09:40 DC 07/01/20 20:22 Furosemide (Lasix) 20 mg DAILY PO 07/02/20 09:00 07/19/20 07:56 Levothyroxine Sodium (Synthroid) 50 mcg HS PO 07/01/20 21:00 07/19/20 19:53 Memantine (Namenda) 10 mg BID PO 07/01/20 21:00 07/19/20 19:54 Mirtazapine (Remeron) 7.5 mg QHS PO 07/01/20 21:00 07/19/20 19:51 Olanzapine (ZyPREXA ZYDIS) 5 mg PRN BID PRN PO ANXIETY / AGITATION 07/01/20 15:00 07/02/20 09:40 DC 07/01/20 23:27 Artificial Tears (Refresh Classic) 1 drop PRN TID PRN OU DRY EYE 07/01/20 15:00 Prednisolone Acetate (Pred Forte) 1 drop DAILY OD 07/02/20 09:00 07/19/20 07:56 Tramadol HCl (Ultram) 50 mg PRN Q8HRS PRN PO PAIN 07/01/20 15:00 07/20/20 00:08 Trazodone HCl (Desyrel) 100 mg PRN QHS PRN PO INSOMNIA, MAY REPEAT X1 07/01/20 15:00 07/17/20 21:05 Ziprasidone (Geodon Im) 20 mg PRN BID PRN IM ANXIETY / AGITATION 07/01/20 15:00 07/02/20 10:56 DC 07/01/20 21:53 Guaifenesin/ Codeine Phosphate (Robitussin Ac) 5 ml PRN Q4HRS PRN PO COUGH 07/01/20 17:45 Al Hydroxide/Mg Hydroxide (Mylanta Plus Xs) 15 ml PRN Q2HR PRN PO DYSPEPSIA 07/01/20 17:45 Magnesium Hydroxide (Milk Of Magnesia) 2,400 mg PRN Q4HRS PRN PO CONSTIPATION 07/01/20 17:45 07/03/20 22:04 Olanzapine (ZyPREXA ZYDIS) 5 mg PRN Q2HRS PRN PO ANXIETY / AGITATION 07/02/20 09:45 07/20/20 00:08 Clozapine (Clozaril) 150 mg HS PO 07/02/20 21:00 07/10/20 14:23 DC 07/09/20 20:06 Ziprasidone (Geodon Im) 40 mg DAILY IM 07/02/20 11:15 07/04/20 17:18 DC 07/02/20 11:15 Lorazepam (Ativan Inj) 0.5 mg DAILY IM 07/03/20 14:30 07/03/20 19:35 DC 07/03/20 15:05 Lorazepam (Ativan Inj) 0.5 mg BID IM 07/03/20 21:00 07/04/20 17:18 DC 07/03/20 22:04 Lorazepam (Ativan Inj) 1 mg 1X ONCE IM 07/05/20 18:45 07/05/20 18:46 DC 07/05/20 20:46 Lorazepam (Ativan Inj) 1 mg DAILY IM 07/06/20 09:00 07/16/20 20:06 DC 07/15/20 08:30 Psyllium Hydrophilic Mucilloid (Metamucil) 1 pkt HS PO 07/05/20 21:30 07/19/20 19:51 Estradiol (Estrace) 1 barbara QMTH@2100 VG 07/06/20 21:00 07/17/20 21:16 Multi-Ingred Cream/Lotion/Oil/ Oint (Hydrocerin) 1 barbara PRN Q1HR PRN TP DRY SKIN / SCALING 07/08/20 12:30 Diphenhydramine HCl (Benadryl) 25 mg PRN Q4HRS PRN PO ITCHING 07/08/20 18:00 07/13/20 21:57 Clozapine (Clozaril) 175 mg HS PO 07/10/20 21:00 07/17/20 18:08 DC 07/16/20 20:14 Divalproex Sodium (Depakote Sprinkles) 500 mg BID PO 07/10/20 21:00 07/14/20 16:36 DC 07/14/20 07:53 Divalproex Sodium (Depakote Sprinkles) 500 mg DAILY PO 07/15/20 09:00 07/19/20 07:56 Divalproex Sodium (Depakote Sprinkles) 750 mg QHS PO 07/14/20 21:00 07/19/20 19:52 Clozapine (Clozaril) 200 mg HS PO 07/17/20 21:00 07/19/20 19:52 I have reviewed the current psychotropics carefully including drug interactions. Risk benefit ratio favors no change other than as noted in my dictated progress note. Diagnosis: Problems: (1) Schizoaffective disorder, bipolar type (2) Impulse control disorder, unspecified (3) Anxiety disorder, unspecified (4) Bipolar affective, manic, severe w/ psych KIERSTEN WATT MD Jul 20, 2020 07:36
[2020-07-20] MEDS: MEMANTINE 10 MG TABLET. PO SCH ×2 (08:05→20:14)
[2020-07-20] MEDS: FUROSEMIDE 20 MG TABLET PO SCH (08:05)
[2020-07-20] MEDS: prednisoLONE ACETATE 1% OPHTH SUSPENSION 5ML BOTTLE. OD SCH (08:06)
[2020-07-20] MEDS: DIVALPROEX 125 MG CAP.SPRINK PO SCH ×2 (08:06→20:13)
[2020-07-20 17:40] VITALS: BP 125/77
--- NOTE | 2020-07-20 18:30 | NUR ---
Patient has been labile, demanding at times, usually for drinks; cooperative with medications, and disorganized. Patient was irritable in the morning, accusing me of not giving her a medicine she had requested from her night nurse and not believing me when I stated I was not here. She also yelled repeatedly at a peer that wandered into her room this morning. She has generally benson calm otherwise during this shift. Will continue to monitor and report to oncoming shift.
[2020-07-20] MEDS: MIRTAZAPINE 7.5 MG TABLET. PO SCH (20:13)
[2020-07-20] MEDS: cloZAPine 100 MG TABLET PO SCH (20:13)
[2020-07-20] MEDS: LEVOTHYROXINE 50 MCG TABLET PO SCH (20:13)
[2020-07-20] MEDS: ESTRADIOL 0.01% VAGINAL CREAM 42.5GM TUBE. VG SCH (20:14)
[2020-07-20] MEDS: PSYLLIUM SEED (WITH SUGAR) PACKET. PO SCH (20:14)
[2020-07-20] MEDS ORDERED: ACETAMINOPHEN 325 MG TABLET PO PRN (20:15)
--- NOTE | 2020-07-20 21:07 | PDOC ---
Exam Note: Julian Note: Please also refer to the separate dictated note~for this date of service dictated separately.~Patient seen individually. Discussed the patient with Nursing staff reviewed the chart.~Reviewed interim history and current functioning. Reviewed vital signs,~Labs/ Radiology~and current medications noted below. Continue current treatment with the changes noted in the dictated addendum note Assessment: Vital Signs/I&O: Vital Signs Date Time Temp Pulse Resp B/P (MAP) Pulse Ox O2 Delivery O2 Flow Rate FiO2 07/20/20 17:40 97.9 105 16 125/77 (93) 97 07/18/20 05:54 Room Air I & O 07/19/20 07/19/20 07/20/20 15:00 23:00 07:00 Intake Total 1220 ml 960 ml Balance 1220 ml 960 ml Current Medications: Meds: Current Medications Medications (Trade) Dose Ordered Sig/Bora Route PRN Reason Start Time Stop Time Status Last Admin Dose Admin Diclofenac Sodium (Voltaren) 1 barbara PRN QID PRN TP MUSCLE PAIN 07/01/20 15:00 07/18/20 06:00 Divalproex Sodium (Depakote Sprinkles) 375 mg BID PO 07/01/20 21:00 07/10/20 14:23 DC 07/10/20 08:36 Docusate Sodium (Colace) 100 mg PRN BID PRN PO HARD STOOLS 07/01/20 15:00 07/04/20 19:14 Estradiol (Estrace) 1 barbara QMTH VG 07/03/20 16:00 07/06/20 17:44 DC Fluvoxamine Maleate (Luvox) 25 mg HS PO 07/01/20 21:00 07/02/20 09:40 DC 07/01/20 20:22 Furosemide (Lasix) 20 mg DAILY PO 07/02/20 09:00 07/20/20 08:05 Levothyroxine Sodium (Synthroid) 50 mcg HS PO 07/01/20 21:00 07/20/20 20:13 Memantine (Namenda) 10 mg BID PO 07/01/20 21:00 07/20/20 20:14 Mirtazapine (Remeron) 7.5 mg QHS PO 07/01/20 21:00 07/20/20 20:13 Olanzapine (ZyPREXA ZYDIS) 5 mg PRN BID PRN PO ANXIETY / AGITATION 07/01/20 15:00 07/02/20 09:40 DC 07/01/20 23:27 Artificial Tears (Refresh Classic) 1 drop PRN TID PRN OU DRY EYE 07/01/20 15:00 Prednisolone Acetate (Pred Forte) 1 drop DAILY OD 07/02/20 09:00 07/20/20 08:06 Tramadol HCl (Ultram) 50 mg PRN Q8HRS PRN PO PAIN 07/01/20 15:00 07/20/20 00:08 Trazodone HCl (Desyrel) 100 mg PRN QHS PRN PO INSOMNIA, MAY REPEAT X1 07/01/20 15:00 07/17/20 21:05 Ziprasidone (Geodon Im) 20 mg PRN BID PRN IM ANXIETY / AGITATION 07/01/20 15:00 07/02/20 10:56 DC 07/01/20 21:53 Guaifenesin/ Codeine Phosphate (Robitussin Ac) 5 ml PRN Q4HRS PRN PO COUGH 07/01/20 17:45 Al Hydroxide/Mg Hydroxide (Mylanta Plus Xs) 15 ml PRN Q2HR PRN PO DYSPEPSIA 07/01/20 17:45 Magnesium Hydroxide (Milk Of Magnesia) 2,400 mg PRN Q4HRS PRN PO CONSTIPATION 07/01/20 17:45 07/03/20 22:04 Olanzapine (ZyPREXA ZYDIS) 5 mg PRN Q2HRS PRN PO ANXIETY / AGITATION 07/02/20 09:45 07/20/20 00:08 Clozapine (Clozaril) 150 mg HS PO 07/02/20 21:00 07/10/20 14:23 DC 07/09/20 20:06 Ziprasidone (Geodon Im) 40 mg DAILY IM 07/02/20 11:15 07/04/20 17:18 DC 07/02/20 11:15 Lorazepam (Ativan Inj) 0.5 mg DAILY IM 07/03/20 14:30 07/03/20 19:35 DC 07/03/20 15:05 Lorazepam (Ativan Inj) 0.5 mg BID IM 07/03/20 21:00 07/04/20 17:18 DC 07/03/20 22:04 Lorazepam (Ativan Inj) 1 mg 1X ONCE IM 07/05/20 18:45 07/05/20 18:46 DC 07/05/20 20:46 Lorazepam (Ativan Inj) 1 mg DAILY IM 07/06/20 09:00 07/16/20 20:06 DC 07/15/20 08:30 Psyllium Hydrophilic Mucilloid (Metamucil) 1 pkt HS PO 07/05/20 21:30 07/20/20 20:14 Estradiol (Estrace) 1 barbara QMTH@2100 VG 07/06/20 21:00 07/17/20 21:16 Multi-Ingred Cream/Lotion/Oil/ Oint (Hydrocerin) 1 barbara PRN Q1HR PRN TP DRY SKIN / SCALING 07/08/20 12:30 Diphenhydramine HCl (Benadryl) 25 mg PRN Q4HRS PRN PO ITCHING 07/08/20 18:00 07/13/20 21:57 Clozapine (Clozaril) 175 mg HS PO 07/10/20 21:00 07/17/20 18:08 DC 07/16/20 20:14 Divalproex Sodium (Depakote Sprinkles) 500 mg BID PO 07/10/20 21:00 07/14/20 16:36 DC 07/14/20 07:53 Divalproex Sodium (Depakote Sprinkles) 500 mg DAILY PO 07/15/20 09:00 07/20/20 08:06 Divalproex Sodium (Depakote Sprinkles) 750 mg QHS PO 07/14/20 21:00 07/20/20 20:13 Clozapine (Clozaril) 200 mg HS PO 07/17/20 21:00 07/20/20 20:13 Acetaminophen (Tylenol) 650 mg PRN Q6HRS PRN PO MILD PAIN / TEMP > 100.3'F 07/20/20 20:15 I have reviewed the current psychotropics carefully including drug interactions. Risk benefit ratio favors no change other than as noted in my dictated progress note. Diagnosis: Problems: (1) Schizoaffective disorder, bipolar type (2) Impulse control disorder, unspecified (3) Anxiety disorder, unspecified (4) Bipolar affective, manic, severe w/ psych KIERSTEN WATT MD Jul 20, 2020 21:07
--- NOTE | 2020-07-20 23:14 | NUR ---
Patient told nurse she would "be in her room for medications". Nurse brought patients medications to the room and patient was in bed asleep. Patient had undressed and her clothing and shoes were laying on the floor in the bathroom in front of the toilet. Patient was in bed wearing only a brief. Patient asked nurse to "hand her the shirt on the chair". Nurse handed patient the sweatshirt and patient began yelling "No, not that one stupid, the short sleeved one". When nurse stated that the only shirt on the chair was the sweatshirt, the patient snatched the med cup and water off the table and took the medication. PRN Voltaren gel applied to patient at HS as patient usually gets up during the night to request it. Patient alert and oriented x4, she denies hallucinations at this time when asked.
[2020-07-21 06:01] VITALS: BP 123/80
--- NOTE | 2020-07-21 08:08 | PDOC ---
Exam Note: Julian Note: This note is a late entry for 07/20/2020 covers elements not covered in my initial note. Subjective: The patient was seen individually in the evening of 07/20/2020 with Adithya MUÑOZ, discussed and reviewed the chart. The patient slept 5-1/4 hours previous night. She did well in the morning. Previous night she was singing along with some TV shows, quite appropriate. She gets extremely agitated if one or the other demented patients walks into her room which again happened today. I addressed with her. Review of Systems: No CV, , pulmonary, eye, ENT system symptoms on review. Mental Status Exam: The patient is oriented to herself and situation. Speech is coherent, less pressured. Abstraction is fair. Computation is impaired. Language function is intact. Attention span is short. Mood and affect lability is improved. Laboratory Data: Reviewed. Impression: Schizoaffective disorder bipolar type with psychotic features. Anxiety disorder unspecified. Impulse control disorder unspecified. Plan: No change from initial note. Assessment: Vital Signs/I&O: Vital Signs Date Time Temp Pulse Resp B/P (MAP) Pulse Ox O2 Delivery O2 Flow Rate FiO2 07/21/20 06:01 97.6 89 16 123/80 (94) 93 07/18/20 05:54 Room Air I & O 07/20/20 07/20/20 07/21/20 15:00 23:00 07:00 Intake Total 720 ml 560 ml Balance 720 ml 560 ml Current Medications: Meds: Current Medications Medications (Trade) Dose Ordered Sig/Bora Route PRN Reason Start Time Stop Time Status Last Admin Dose Admin Diclofenac Sodium (Voltaren) 1 barbara PRN QID PRN TP MUSCLE PAIN 07/01/20 15:00 07/18/20 06:00 Divalproex Sodium (Depakote Sprinkles) 375 mg BID PO 07/01/20 21:00 07/10/20 14:23 DC 07/10/20 08:36 Docusate Sodium (Colace) 100 mg PRN BID PRN PO HARD STOOLS 07/01/20 15:00 07/04/20 19:14 Estradiol (Estrace) 1 barbara QMTH VG 07/03/20 16:00 07/06/20 17:44 DC Fluvoxamine Maleate (Luvox) 25 mg HS PO 07/01/20 21:00 07/02/20 09:40 DC 07/01/20 20:22 Furosemide (Lasix) 20 mg DAILY PO 07/02/20 09:00 07/20/20 08:05 Levothyroxine Sodium (Synthroid) 50 mcg HS PO 07/01/20 21:00 07/20/20 20:13 Memantine (Namenda) 10 mg BID PO 07/01/20 21:00 07/20/20 20:14 Mirtazapine (Remeron) 7.5 mg QHS PO 07/01/20 21:00 07/20/20 20:13 Olanzapine (ZyPREXA ZYDIS) 5 mg PRN BID PRN PO ANXIETY / AGITATION 07/01/20 15:00 07/02/20 09:40 DC 07/01/20 23:27 Artificial Tears (Refresh Classic) 1 drop PRN TID PRN OU DRY EYE 07/01/20 15:00 Prednisolone Acetate (Pred Forte) 1 drop DAILY OD 07/02/20 09:00 07/20/20 08:06 Tramadol HCl (Ultram) 50 mg PRN Q8HRS PRN PO PAIN 07/01/20 15:00 07/20/20 00:08 Trazodone HCl (Desyrel) 100 mg PRN QHS PRN PO INSOMNIA, MAY REPEAT X1 07/01/20 15:00 07/17/20 21:05 Ziprasidone (Geodon Im) 20 mg PRN BID PRN IM ANXIETY / AGITATION 07/01/20 15:00 07/02/20 10:56 DC 07/01/20 21:53 Guaifenesin/ Codeine Phosphate (Robitussin Ac) 5 ml PRN Q4HRS PRN PO COUGH 07/01/20 17:45 Al Hydroxide/Mg Hydroxide (Mylanta Plus Xs) 15 ml PRN Q2HR PRN PO DYSPEPSIA 07/01/20 17:45 Magnesium Hydroxide (Milk Of Magnesia) 2,400 mg PRN Q4HRS PRN PO CONSTIPATION 07/01/20 17:45 07/03/20 22:04 Olanzapine (ZyPREXA ZYDIS) 5 mg PRN Q2HRS PRN PO ANXIETY / AGITATION 07/02/20 09:45 07/20/20 00:08 Clozapine (Clozaril) 150 mg HS PO 07/02/20 21:00 07/10/20 14:23 DC 07/09/20 20:06 Ziprasidone (Geodon Im) 40 mg DAILY IM 07/02/20 11:15 07/04/20 17:18 DC 07/02/20 11:15 Lorazepam (Ativan Inj) 0.5 mg DAILY IM 07/03/20 14:30 07/03/20 19:35 DC 07/03/20 15:05 Lorazepam (Ativan Inj) 0.5 mg BID IM 07/03/20 21:00 07/04/20 17:18 DC 07/03/20 22:04 Lorazepam (Ativan Inj) 1 mg 1X ONCE IM 07/05/20 18:45 07/05/20 18:46 DC 07/05/20 20:46 Lorazepam (Ativan Inj) 1 mg DAILY IM 07/06/20 09:00 07/16/20 20:06 DC 07/15/20 08:30 Psyllium Hydrophilic Mucilloid (Metamucil) 1 pkt HS PO 07/05/20 21:30 07/20/20 20:14 Estradiol (Estrace) 1 barbara QMTH@2100 VG 07/06/20 21:00 07/17/20 21:16 Multi-Ingred Cream/Lotion/Oil/ Oint (Hydrocerin) 1 barbara PRN Q1HR PRN TP DRY SKIN / SCALING 07/08/20 12:30 Diphenhydramine HCl (Benadryl) 25 mg PRN Q4HRS PRN PO ITCHING 07/08/20 18:00 07/13/20 21:57 Clozapine (Clozaril) 175 mg HS PO 07/10/20 21:00 07/17/20 18:08 DC 07/16/20 20:14 Divalproex Sodium (Depakote Sprinkles) 500 mg BID PO 07/10/20 21:00 07/14/20 16:36 DC 07/14/20 07:53 Divalproex Sodium (Depakote Sprinkles) 500 mg DAILY PO 07/15/20 09:00 07/20/20 08:06 Divalproex Sodium (Depakote Sprinkles) 750 mg QHS PO 07/14/20 21:00 07/20/20 20:13 Clozapine (Clozaril) 200 mg HS PO 07/17/20 21:00 07/20/20 20:13 Acetaminophen (Tylenol) 650 mg PRN Q6HRS PRN PO MILD PAIN / TEMP > 100.3'F 07/20/20 20:15 I have reviewed the current psychotropics carefully including drug interactions. Risk benefit ratio favors no change other than as noted in my dictated progress note. Diagnosis: Problems: (1) Schizoaffective disorder, bipolar type (2) Impulse control disorder, unspecified (3) Anxiety disorder, unspecified (4) Bipolar affective, mixed, sev w/ psych KIERSTEN WATT MD Jul 21, 2020 08:08
[2020-07-21] MEDS: FUROSEMIDE 20 MG TABLET PO SCH (08:25)
[2020-07-21] MEDS: MEMANTINE 10 MG TABLET. PO SCH ×2 (08:25→21:08)
[2020-07-21] MEDS: DIVALPROEX 125 MG CAP.SPRINK PO SCH ×2 (08:26→21:07)
[2020-07-21] MEDS: prednisoLONE ACETATE 1% OPHTH SUSPENSION 5ML BOTTLE. OD SCH (08:26)
--- NOTE | 2020-07-21 09:17 | NUR ---
ROSALINE received a call from ROSALINE Ewing at [facility], re: pt return on Friday. Kaylin questioned if pt received visitors here and ROSALINE explained that the unit is still not open for visits. With that being said, the facility will have to pick pt up versus her Hardik. Kaylin will call Hardik and let him know that pt will be quarantined for at least 14 days. But if he wants to visit he can, just has to mask up and be behind the partition with no physical interaction. ROSALINE gave Kaylin an update on how pt was doing and also discussed pt anxiety about returning back to them. Kaylin would like to speak with pt if possible to discuss what to expect and to hopefully ease pt mind about her return on Friday. ROSALINE will be able to call Kaylin later today to have this discussion with pt.
--- NOTE | 2020-07-21 13:53 | NUR ---
[facility] Social Work Discharge Planning Form Patient Name CRISTAL POLLARD Admit Date: 01 July 2020 DISCHARGE PLAN Discharge Destination: Pt to discharge to [facility] Assessment: N/A Level II Assessment: N/A Transportation: Facility has set up transport between 1030 and 1100 Special Instructions/Notes: Please fax all discharge orders, medication list and discharge summary to the facility fax number listed below. DISCHARGE TO FACILITY Facility: [facility] Address: [address] [place] [id number] Contact Name: Kaylin Tapia, SW: Contact Name: Please ask for nurse caring for pt upon admission. PCP: To see the facility physician as needed Psychiatrist: Dr. Ford Sanchez
--- NOTE | 2020-07-21 16:04 | NUR ---
Patient has been labile, agitated at times, cooperative with medications, and disorganized. Patient was irritable in the morning, and was asked to leave the dining room after yelling profanity at the staff, including telling a staff member that she is a whore for having a baby. At lunch, patient refused to eat, stating that the food was shit and no one should have to eat like that. When approached by the dietitian, she became agitated, yelled at the dietitian and pushed her bowl of soup at her. She is currently in the day room wearing a short skirt and reportedly showing off her legs to peers. Will continue to monitor and report to oncoming shift. Addendum: 07/21/20 at 1748 by VINCENT WRIGHT II, RN On further investigation, patient is not wearing a skirt; she is wearing a sweatshirt she has ripped open and wearing it as a skirt. Will report to and continue to monitor.
[2020-07-21 16:20] VITALS: BP 111/77
--- NOTE | 2020-07-21 20:55 | PDOC ---
Exam Note: Julian Note: Please also refer to the separate dictated note~for this date of service dictated separately.~Patient seen individually. Discussed the patient with Nursing staff reviewed the chart.~Reviewed interim history and current functioning. Reviewed vital signs,~Labs/ Radiology~and current medications noted below. Continue current treatment with the changes noted in the dictated addendum note Assessment: Vital Signs/I&O: Vital Signs Date Time Temp Pulse Resp B/P (MAP) Pulse Ox O2 Delivery O2 Flow Rate FiO2 07/21/20 16:20 98.2 105 20 111/77 (88) 96 Room Air I & O 07/20/20 07/20/20 07/21/20 15:00 23:00 07:00 Intake Total 720 ml 560 ml Balance 720 ml 560 ml Current Medications: I have reviewed the current psychotropics carefully including drug interactions. Risk benefit ratio favors no change other than as noted in my dictated progress note. Diagnosis: Problems: (1) Impulse control disorder, unspecified (2) Anxiety disorder, unspecified (3) Bipolar affective, mixed, sev w/ psych (4) Schizoaffective disorder, bipolar type KIERSTEN WATT MD Jul 21, 2020 20:55
[2020-07-21] MEDS: LEVOTHYROXINE 50 MCG TABLET PO SCH (21:07)
[2020-07-21] MEDS: PSYLLIUM SEED (WITH SUGAR) PACKET. PO SCH (21:07)
[2020-07-21] MEDS: MIRTAZAPINE 7.5 MG TABLET. PO SCH (21:07)
[2020-07-21] MEDS: cloZAPine 100 MG TABLET PO SCH (21:07)
[2020-07-21] MEDS: traZODone 100 MG TABLET. PO PRN (21:08)
[2020-07-21] MEDS: DICLOFENAC SODIUM 1% TOPICAL GEL 100GM TUBE. TP PRN (21:08)
--- NOTE | 2020-07-21 23:56 | NUR ---
Patient was yelling in the hallway before she went into her room. When nurse brought medications into patient she was laying on the bed and initially refused to sit up and take them. Eventually patient sat up in bed and took the medications. She complained that nurse was "late" and that she had been "waiting over an hour". She was mumbling and her speech was not clear. Patient continues to wear a ripped t-shirt around herself like a skirt. Patient laid down after medications and yelled at nurse to turn the light off.
[2020-07-22 06:32] VITALS: BP 120/72
[2020-07-22] MEDS: prednisoLONE ACETATE 1% OPHTH SUSPENSION 5ML BOTTLE. OD SCH (08:49)
[2020-07-22] MEDS: FUROSEMIDE 20 MG TABLET PO SCH (08:50)
[2020-07-22] MEDS: DIVALPROEX 125 MG CAP.SPRINK PO SCH ×2 (08:50→20:53)
[2020-07-22] MEDS: MEMANTINE 10 MG TABLET. PO SCH ×2 (08:50→20:53)
--- NOTE | 2020-07-22 11:40 | NUR ---
Pt is calm, cooperative, and compliant. No agitation, no aggression, no hallucinations, no delusions. She interacts appropriately with staff and peers. She is complaint with her medication and assessment.
[2020-07-22 16:17] VITALS: BP 109/62
[2020-07-22] MEDS: MIRTAZAPINE 7.5 MG TABLET. PO SCH (20:53)
[2020-07-22] MEDS: cloZAPine 100 MG TABLET PO SCH (20:53)
[2020-07-22] MEDS: traZODone 100 MG TABLET. PO PRN (20:54)
[2020-07-22] MEDS: PSYLLIUM SEED (WITH SUGAR) PACKET. PO SCH (20:54)
[2020-07-22] MEDS: LEVOTHYROXINE 50 MCG TABLET PO SCH (20:54)
--- NOTE | 2020-07-22 21:38 | PDOC ---
Exam Note: Julian Note: Please also refer to the separate dictated note~for this date of service dictated separately.~Patient seen individually. Discussed the patient with Nursing staff reviewed the chart.~Reviewed interim history and current functioning. Reviewed vital signs,~Labs/ Radiology~and current medications noted below. Continue current treatment with the changes noted in the dictated addendum note Assessment: Vital Signs/I&O: Vital Signs Date Time Temp Pulse Resp B/P (MAP) Pulse Ox O2 Delivery O2 Flow Rate FiO2 07/22/20 16:17 98.4 102 20 109/62 (78) 97 07/22/20 06:32 Room Air I & O 07/21/20 07/21/20 07/22/20 15:00 23:00 07:00 Intake Total 240 ml 600 ml 240 ml Balance 240 ml 600 ml 240 ml Current Medications: I have reviewed the current psychotropics carefully including drug interactions. Risk benefit ratio favors no change other than as noted in my dictated progress note. Diagnosis: Problems: (1) Schizoaffective disorder, bipolar type (2) Impulse control disorder, unspecified (3) Anxiety disorder, unspecified (4) Bipolar affective, mixed, sev w/ psych KIERSTEN WATT MD Jul 22, 2020 21:38
[2020-07-22] MEDS: DICLOFENAC SODIUM 1% TOPICAL GEL 100GM TUBE. TP PRN (21:45)
--- NOTE | 2020-07-23 00:21 | NUR ---
Pt interacting with staff and peers, compliant with meds and cares. Pt spent time up with peers laughing and talking loudly in day room. Did c/o pain R knee, down spine, improved with voltaren gel.
[2020-07-23 06:39] VITALS: BP 117/61
--- NOTE | 2020-07-23 07:46 | PDOC ---
Exam Note: Julian Note: This note is a late entry for 07/21/2020 covers elements not covered in my initial note. Subjective: The patient was seen individually in the evening of 07/21/2020 with Adithya MUÑOZ, discussed and reviewed the chart. The patient slept 6-1/2 hours previous night. She has had a difficult day using profanities at breakfast. At lunchtime she was screaming, agitated. Some of her verbalizations are consistent with the way she talks but manic symptoms are much improved. She was yelling at the sales operations consultant at one point because she did not like the food. She was upset in the morning regarding q.15 minute checks she is woken up for. Previous night she was yelling at Romelia MUÑOZ. I processed this with the patient at length. Review of Systems: No CV, , pulmonary, eye, ENT system symptoms on review. Mental Status Exam: The patient is reasonably oriented. Speech is coherent, rapid at times. Abstraction is fair. Computation is impaired. Language function is intact. Attention span is short. Mood and affect remains somewhat anxious, labile, better than before. Laboratory Data: Reviewed. Impression: Schizoaffective disorder bipolar type with psychotic features. Anxiety disorder unspecified. Impulse control disorder unspecified. Plan: No change from initial note. Valproic acid level is therapeutic. We will check CBC, absolute neutrophil count on 07/24, Friday and increase Clozaril as indicated. Assessment: Vital Signs/I&O: Vital Signs Date Time Temp Pulse Resp B/P (MAP) Pulse Ox O2 Delivery O2 Flow Rate FiO2 07/23/20 06:39 97.9 88 14 117/61 (79) 94 Room Air I & O 07/22/20 07/22/20 07/23/20 14:59 22:59 06:59 Intake Total 960 ml 720 ml Balance 960 ml 720 ml Current Medications: Meds: Current Medications Medications (Trade) Dose Ordered Sig/Bora Route PRN Reason Start Time Stop Time Status Last Admin Dose Admin Diclofenac Sodium (Voltaren) 1 barbara PRN QID PRN TP MUSCLE PAIN 07/01/20 15:00 07/22/20 21:45 Divalproex Sodium (Depakote Sprinkles) 375 mg BID PO 07/01/20 21:00 07/10/20 14:23 DC 07/10/20 08:36 Docusate Sodium (Colace) 100 mg PRN BID PRN PO HARD STOOLS 07/01/20 15:00 07/04/20 19:14 Estradiol (Estrace) 1 barbara QMTH VG 07/03/20 16:00 07/06/20 17:44 DC Fluvoxamine Maleate (Luvox) 25 mg HS PO 07/01/20 21:00 07/02/20 09:40 DC 07/01/20 20:22 Furosemide (Lasix) 20 mg DAILY PO 07/02/20 09:00 07/22/20 08:50 Levothyroxine Sodium (Synthroid) 50 mcg HS PO 07/01/20 21:00 07/22/20 20:54 Memantine (Namenda) 10 mg BID PO 07/01/20 21:00 07/22/20 20:53 Mirtazapine (Remeron) 7.5 mg QHS PO 07/01/20 21:00 07/22/20 20:53 Olanzapine (ZyPREXA ZYDIS) 5 mg PRN BID PRN PO ANXIETY / AGITATION 07/01/20 15:00 07/02/20 09:40 DC 07/01/20 23:27 Artificial Tears (Refresh Classic) 1 drop PRN TID PRN OU DRY EYE 07/01/20 15:00 Prednisolone Acetate (Pred Forte) 1 drop DAILY OD 07/02/20 09:00 07/22/20 08:49 Tramadol HCl (Ultram) 50 mg PRN Q8HRS PRN PO PAIN 07/01/20 15:00 07/20/20 00:08 Trazodone HCl (Desyrel) 100 mg PRN QHS PRN PO INSOMNIA, MAY REPEAT X1 07/01/20 15:00 07/22/20 20:54 Ziprasidone (Geodon Im) 20 mg PRN BID PRN IM ANXIETY / AGITATION 07/01/20 15:00 07/02/20 10:56 DC 07/01/20 21:53 Guaifenesin/ Codeine Phosphate (Robitussin Ac) 5 ml PRN Q4HRS PRN PO COUGH 07/01/20 17:45 Al Hydroxide/Mg Hydroxide (Mylanta Plus Xs) 15 ml PRN Q2HR PRN PO DYSPEPSIA 07/01/20 17:45 Magnesium Hydroxide (Milk Of Magnesia) 2,400 mg PRN Q4HRS PRN PO CONSTIPATION 07/01/20 17:45 07/03/20 22:04 Olanzapine (ZyPREXA ZYDIS) 5 mg PRN Q2HRS PRN PO ANXIETY / AGITATION 07/02/20 09:45 07/20/20 00:08 Clozapine (Clozaril) 150 mg HS PO 07/02/20 21:00 07/10/20 14:23 DC 07/09/20 20:06 Ziprasidone (Geodon Im) 40 mg DAILY IM 07/02/20 11:15 07/04/20 17:18 DC 07/02/20 11:15 Lorazepam (Ativan Inj) 0.5 mg DAILY IM 07/03/20 14:30 07/03/20 19:35 DC 07/03/20 15:05 Lorazepam (Ativan Inj) 0.5 mg BID IM 07/03/20 21:00 07/04/20 17:18 DC 07/03/20 22:04 Lorazepam (Ativan Inj) 1 mg 1X ONCE IM 07/05/20 18:45 07/05/20 18:46 DC 07/05/20 20:46 Lorazepam (Ativan Inj) 1 mg DAILY IM 07/06/20 09:00 07/16/20 20:06 DC 07/15/20 08:30 Psyllium Hydrophilic Mucilloid (Metamucil) 1 pkt HS PO 07/05/20 21:30 07/22/20 20:54 Estradiol (Estrace) 1 barbara QMTH@2100 VG 07/06/20 21:00 07/17/20 21:16 Multi-Ingred Cream/Lotion/Oil/ Oint (Hydrocerin) 1 barbara PRN Q1HR PRN TP DRY SKIN / SCALING 07/08/20 12:30 Diphenhydramine HCl (Benadryl) 25 mg PRN Q4HRS PRN PO ITCHING 07/08/20 18:00 07/13/20 21:57 Clozapine (Clozaril) 175 mg HS PO 07/10/20 21:00 07/17/20 18:08 DC 07/16/20 20:14 Divalproex Sodium (Depakote Sprinkles) 500 mg BID PO 07/10/20 21:00 07/14/20 16:36 DC 07/14/20 07:53 Divalproex Sodium (Depakote Sprinkles) 500 mg DAILY PO 07/15/20 09:00 07/22/20 08:50 Divalproex Sodium (Depakote Sprinkles) 750 mg QHS PO 07/14/20 21:00 07/22/20 20:53 Clozapine (Clozaril) 200 mg HS PO 07/17/20 21:00 07/22/20 20:53 Acetaminophen (Tylenol) 650 mg PRN Q6HRS PRN PO MILD PAIN / TEMP > 100.3'F 07/20/20 20:15 I have reviewed the current psychotropics carefully including drug interactions. Risk benefit ratio favors no change other than as noted in my dictated progress note. Diagnosis: Problems: (1) Schizoaffective disorder, bipolar type (2) Impulse control disorder, unspecified (3) Anxiety disorder, unspecified (4) Bipolar affective, mixed, sev w/ psych KIERSTEN WATT MD Jul 23, 2020 07:46
--- NOTE | 2020-07-23 08:03 | PDOC ---
Exam Note: Julian Note: This note is a late entry for 07/22/2020 covers elements not covered in my initial note. Subjective: The patient was seen individually in the evening of 07/22/2020 with Sadia MUÑOZ, discussed and reviewed the chart. The patient slept 7-3/4 hours previous night. Previous evening she was yelling at staff, rude to staff. Staff believes she is trying to sabotage her discharge. I addressed this with her. Review of Systems: No CV, , pulmonary, eye, ENT system symptoms on review. Mental Status Exam: The patient is oriented to herself and situation. She is fixated on wanting to go to [employer] before she is discharged. Speech is coherent, less pressured. Abstraction is fair. Computation is impaired. Language function is intact. Mood and affect lability despite the above is improved. Laboratory Data: Reviewed. Impression: Schizoaffective disorder bipolar type with psychotic features. Anxiety disorder unspecified. Impulse control disorder unspecified. Plan: No change from initial note. Assessment: Vital Signs/I&O: Vital Signs Date Time Temp Pulse Resp B/P (MAP) Pulse Ox O2 Delivery O2 Flow Rate FiO2 07/23/20 06:39 97.9 88 14 117/61 (79) 94 Room Air I & O 07/22/20 07/22/20 07/23/20 15:00 23:00 07:00 Intake Total 960 ml 720 ml Balance 960 ml 720 ml Current Medications: Meds: Current Medications Medications (Trade) Dose Ordered Sig/Bora Route PRN Reason Start Time Stop Time Status Last Admin Dose Admin Diclofenac Sodium (Voltaren) 1 barbara PRN QID PRN TP MUSCLE PAIN 07/01/20 15:00 07/22/20 21:45 Divalproex Sodium (Depakote Sprinkles) 375 mg BID PO 07/01/20 21:00 07/10/20 14:23 DC 07/10/20 08:36 Docusate Sodium (Colace) 100 mg PRN BID PRN PO HARD STOOLS 07/01/20 15:00 07/04/20 19:14 Estradiol (Estrace) 1 barbara QMTH VG 07/03/20 16:00 07/06/20 17:44 DC Fluvoxamine Maleate (Luvox) 25 mg HS PO 07/01/20 21:00 07/02/20 09:40 DC 07/01/20 20:22 Furosemide (Lasix) 20 mg DAILY PO 07/02/20 09:00 07/22/20 08:50 Levothyroxine Sodium (Synthroid) 50 mcg HS PO 07/01/20 21:00 07/22/20 20:54 Memantine (Namenda) 10 mg BID PO 07/01/20 21:00 07/22/20 20:53 Mirtazapine (Remeron) 7.5 mg QHS PO 07/01/20 21:00 07/22/20 20:53 Olanzapine (ZyPREXA ZYDIS) 5 mg PRN BID PRN PO ANXIETY / AGITATION 07/01/20 15:00 07/02/20 09:40 DC 07/01/20 23:27 Artificial Tears (Refresh Classic) 1 drop PRN TID PRN OU DRY EYE 07/01/20 15:00 Prednisolone Acetate (Pred Forte) 1 drop DAILY OD 07/02/20 09:00 07/22/20 08:49 Tramadol HCl (Ultram) 50 mg PRN Q8HRS PRN PO PAIN 07/01/20 15:00 07/20/20 00:08 Trazodone HCl (Desyrel) 100 mg PRN QHS PRN PO INSOMNIA, MAY REPEAT X1 07/01/20 15:00 07/22/20 20:54 Ziprasidone (Geodon Im) 20 mg PRN BID PRN IM ANXIETY / AGITATION 07/01/20 15:00 07/02/20 10:56 DC 07/01/20 21:53 Guaifenesin/ Codeine Phosphate (Robitussin Ac) 5 ml PRN Q4HRS PRN PO COUGH 07/01/20 17:45 Al Hydroxide/Mg Hydroxide (Mylanta Plus Xs) 15 ml PRN Q2HR PRN PO DYSPEPSIA 07/01/20 17:45 Magnesium Hydroxide (Milk Of Magnesia) 2,400 mg PRN Q4HRS PRN PO CONSTIPATION 07/01/20 17:45 07/03/20 22:04 Olanzapine (ZyPREXA ZYDIS) 5 mg PRN Q2HRS PRN PO ANXIETY / AGITATION 07/02/20 09:45 07/20/20 00:08 Clozapine (Clozaril) 150 mg HS PO 07/02/20 21:00 07/10/20 14:23 DC 07/09/20 20:06 Ziprasidone (Geodon Im) 40 mg DAILY IM 07/02/20 11:15 07/04/20 17:18 DC 07/02/20 11:15 Lorazepam (Ativan Inj) 0.5 mg DAILY IM 07/03/20 14:30 07/03/20 19:35 DC 07/03/20 15:05 Lorazepam (Ativan Inj) 0.5 mg BID IM 07/03/20 21:00 07/04/20 17:18 DC 07/03/20 22:04 Lorazepam (Ativan Inj) 1 mg 1X ONCE IM 07/05/20 18:45 07/05/20 18:46 DC 07/05/20 20:46 Lorazepam (Ativan Inj) 1 mg DAILY IM 07/06/20 09:00 07/16/20 20:06 DC 07/15/20 08:30 Psyllium Hydrophilic Mucilloid (Metamucil) 1 pkt HS PO 07/05/20 21:30 07/22/20 20:54 Estradiol (Estrace) 1 barbara QMTH@2100 VG 07/06/20 21:00 07/17/20 21:16 Multi-Ingred Cream/Lotion/Oil/ Oint (Hydrocerin) 1 barbara PRN Q1HR PRN TP DRY SKIN / SCALING 07/08/20 12:30 Diphenhydramine HCl (Benadryl) 25 mg PRN Q4HRS PRN PO ITCHING 07/08/20 18:00 07/13/20 21:57 Clozapine (Clozaril) 175 mg HS PO 07/10/20 21:00 07/17/20 18:08 DC 07/16/20 20:14 Divalproex Sodium (Depakote Sprinkles) 500 mg BID PO 07/10/20 21:00 07/14/20 16:36 DC 07/14/20 07:53 Divalproex Sodium (Depakote Sprinkles) 500 mg DAILY PO 07/15/20 09:00 07/22/20 08:50 Divalproex Sodium (Depakote Sprinkles) 750 mg QHS PO 07/14/20 21:00 07/22/20 20:53 Clozapine (Clozaril) 200 mg HS PO 07/17/20 21:00 07/22/20 20:53 Acetaminophen (Tylenol) 650 mg PRN Q6HRS PRN PO MILD PAIN / TEMP > 100.3'F 07/20/20 20:15 I have reviewed the current psychotropics carefully including drug interactions. Risk benefit ratio favors no change other than as noted in my dictated progress note. Diagnosis: Problems: (1) Schizoaffective disorder, bipolar type (2) Impulse control disorder, unspecified (3) Anxiety disorder, unspecified (4) Bipolar affective, mixed, sev w/ psych KIERSTEN WATT MD Jul 23, 2020 08:03
[2020-07-23] MEDS: FUROSEMIDE 20 MG TABLET PO SCH (08:45)
[2020-07-23] MEDS: prednisoLONE ACETATE 1% OPHTH SUSPENSION 5ML BOTTLE. OD SCH ×2 (08:45→20:48)
[2020-07-23] MEDS: DIVALPROEX 125 MG CAP.SPRINK PO SCH ×2 (08:45→20:47)
[2020-07-23] MEDS: MEMANTINE 10 MG TABLET. PO SCH ×2 (08:46→20:47)
--- NOTE | 2020-07-23 11:11 | NUR ---
She is complaint with her medication and assessment. Pt is calm, cooperative, and compliant. No agitation, no aggression, no hallucinations, no delusions. She interacts appropriately with staff and peers.
[2020-07-23 16:26] VITALS: BP 112/65
[2020-07-23] MEDS: traZODone 100 MG TABLET. PO PRN (20:47)
[2020-07-23] MEDS: LEVOTHYROXINE 50 MCG TABLET PO SCH (20:47)
[2020-07-23] MEDS: MIRTAZAPINE 7.5 MG TABLET. PO SCH (20:47)
[2020-07-23] MEDS: cloZAPine 100 MG TABLET PO SCH (20:47)
[2020-07-23] MEDS: PSYLLIUM SEED (WITH SUGAR) PACKET. PO SCH (20:48)
--- NOTE | 2020-07-23 21:07 | PDOC ---
Exam Note: Julian Note: Please also refer to the separate dictated note~for this date of service dictated separately.~Patient seen individually. Discussed the patient with Nursing staff reviewed the chart.~Reviewed interim history and current functioning. Reviewed vital signs,~Labs/ Radiology~and current medications noted below. Continue current treatment with the changes noted in the dictated addendum note Assessment: Vital Signs/I&O: Vital Signs Date Time Temp Pulse Resp B/P (MAP) Pulse Ox O2 Delivery O2 Flow Rate FiO2 07/23/20 16:26 97.7 78 18 112/65 (81) 97 Room Air I & O 07/22/20 07/22/20 07/23/20 15:00 23:00 07:00 Intake Total 960 ml 720 ml Balance 960 ml 720 ml Current Medications: Meds: Current Medications Medications (Trade) Dose Ordered Sig/Bora Route PRN Reason Start Time Stop Time Status Last Admin Dose Admin Diclofenac Sodium (Voltaren) 1 barbara PRN QID PRN TP MUSCLE PAIN 07/01/20 15:00 07/22/20 21:45 Divalproex Sodium (Depakote Sprinkles) 375 mg BID PO 07/01/20 21:00 07/10/20 14:23 DC 07/10/20 08:36 Docusate Sodium (Colace) 100 mg PRN BID PRN PO HARD STOOLS 07/01/20 15:00 07/04/20 19:14 Estradiol (Estrace) 1 barbara QMTH VG 07/03/20 16:00 07/06/20 17:44 DC Fluvoxamine Maleate (Luvox) 25 mg HS PO 07/01/20 21:00 07/02/20 09:40 DC 07/01/20 20:22 Furosemide (Lasix) 20 mg DAILY PO 07/02/20 09:00 07/23/20 08:45 Levothyroxine Sodium (Synthroid) 50 mcg HS PO 07/01/20 21:00 07/23/20 20:47 Memantine (Namenda) 10 mg BID PO 07/01/20 21:00 07/23/20 20:47 Mirtazapine (Remeron) 7.5 mg QHS PO 07/01/20 21:00 07/23/20 20:47 Olanzapine (ZyPREXA ZYDIS) 5 mg PRN BID PRN PO ANXIETY / AGITATION 07/01/20 15:00 07/02/20 09:40 DC 07/01/20 23:27 Artificial Tears (Refresh Classic) 1 drop PRN TID PRN OU DRY EYE 07/01/20 15:00 Prednisolone Acetate (Pred Forte) 1 drop DAILY OD 07/02/20 09:00 07/23/20 20:48 Tramadol HCl (Ultram) 50 mg PRN Q8HRS PRN PO PAIN 07/01/20 15:00 07/20/20 00:08 Trazodone HCl (Desyrel) 100 mg PRN QHS PRN PO INSOMNIA, MAY REPEAT X1 07/01/20 15:00 07/23/20 20:47 Ziprasidone (Geodon Im) 20 mg PRN BID PRN IM ANXIETY / AGITATION 07/01/20 15:00 07/02/20 10:56 DC 07/01/20 21:53 Guaifenesin/ Codeine Phosphate (Robitussin Ac) 5 ml PRN Q4HRS PRN PO COUGH 07/01/20 17:45 Al Hydroxide/Mg Hydroxide (Mylanta Plus Xs) 15 ml PRN Q2HR PRN PO DYSPEPSIA 07/01/20 17:45 Magnesium Hydroxide (Milk Of Magnesia) 2,400 mg PRN Q4HRS PRN PO CONSTIPATION 07/01/20 17:45 07/03/20 22:04 Olanzapine (ZyPREXA ZYDIS) 5 mg PRN Q2HRS PRN PO ANXIETY / AGITATION 07/02/20 09:45 07/20/20 00:08 Clozapine (Clozaril) 150 mg HS PO 07/02/20 21:00 07/10/20 14:23 DC 07/09/20 20:06 Ziprasidone (Geodon Im) 40 mg DAILY IM 07/02/20 11:15 07/04/20 17:18 DC 07/02/20 11:15 Lorazepam (Ativan Inj) 0.5 mg DAILY IM 07/03/20 14:30 07/03/20 19:35 DC 07/03/20 15:05 Lorazepam (Ativan Inj) 0.5 mg BID IM 07/03/20 21:00 07/04/20 17:18 DC 07/03/20 22:04 Lorazepam (Ativan Inj) 1 mg 1X ONCE IM 07/05/20 18:45 07/05/20 18:46 DC 07/05/20 20:46 Lorazepam (Ativan Inj) 1 mg DAILY IM 07/06/20 09:00 07/16/20 20:06 DC 07/15/20 08:30 Psyllium Hydrophilic Mucilloid (Metamucil) 1 pkt HS PO 07/05/20 21:30 07/23/20 20:48 Estradiol (Estrace) 1 barbara QMTH@2100 VG 07/06/20 21:00 07/17/20 21:16 Multi-Ingred Cream/Lotion/Oil/ Oint (Hydrocerin) 1 barbara PRN Q1HR PRN TP DRY SKIN / SCALING 07/08/20 12:30 Diphenhydramine HCl (Benadryl) 25 mg PRN Q4HRS PRN PO ITCHING 07/08/20 18:00 07/13/20 21:57 Clozapine (Clozaril) 175 mg HS PO 07/10/20 21:00 07/17/20 18:08 DC 07/16/20 20:14 Divalproex Sodium (Depakote Sprinkles) 500 mg BID PO 07/10/20 21:00 07/14/20 16:36 DC 07/14/20 07:53 Divalproex Sodium (Depakote Sprinkles) 500 mg DAILY PO 07/15/20 09:00 07/23/20 08:45 Divalproex Sodium (Depakote Sprinkles) 750 mg QHS PO 07/14/20 21:00 07/23/20 20:47 Clozapine (Clozaril) 200 mg HS PO 07/17/20 21:00 07/23/20 20:47 Acetaminophen (Tylenol) 650 mg PRN Q6HRS PRN PO MILD PAIN / TEMP > 100.3'F 07/20/20 20:15 I have reviewed the current psychotropics carefully including drug interactions. Risk benefit ratio favors no change other than as noted in my dictated progress note. Diagnosis: Problems: (1) Impulse control disorder, unspecified (2) Schizoaffective disorder, bipolar type (3) Anxiety disorder, unspecified (4) Bipolar affective, mixed, sev w/ psych KIERSTEN WATT MD Jul 23, 2020 21:07
[2020-07-23] MEDS ORDERED: DIVA125C2 PO (23:22)
[2020-07-23] MEDS ORDERED: MINE454C9 TP (23:23)
[2020-07-23] MEDS ORDERED: PSYL480P PO (23:24)
[2020-07-23] MEDS ORDERED: DIPH25CA58 PO (23:24)
[2020-07-24] MEDS: traMADol 50 MG TABLET PO PRN (02:54)
[2020-07-24 05:55] LABS: BASO % 1 % (0-3); EOS # 0.2 x10^3/uL (0.0-0.7); EOS % 5 % (0-3); HEMATOCRIT 31.1 % (36.0-47.0); HEMOGLOBIN 10.2 g/dL (12.0-15.5); LYMPH # 1.7 x10^3/uL (1.0-4.8); LYMPH % 38 % (24-48); MEAN CORPUSCULAR HEMOGLOBIN 28 pg (25-35); MEAN CORPUSCULAR HGB CONC 33 g/dL (31-37); MEAN CORPUSCULAR VOLUME 86 fL (79-100); MONO # 0.9 x10^3/uL (0.0-1.1); MONO % 19 % (0-9); NEUT # 1.7 x10^3uL (1.8-7.7); NEUT % 38 % (31-73); PLATELET COUNT 195 x10^3/uL (140-400); RED BLOOD COUNT 3.61 x10^6/uL (3.50-5.40); RED CELL DISTRIBUTION WIDTH 16.2 % (11.5-14.5); WHITE BLOOD COUNT 4.5 x10^3/uL (4.0-11.0)
[2020-07-24 06:11] LABS: ALBUMIN 2.4 g/dL (3.4-5.0); ALBUMIN/GLOBULIN RATIO 0.7 (1.0-1.7); CALCIUM 8.7 mg/dL (8.5-10.1); CREATININE 0.9 mg/dL (0.6-1.0); GFR 61.7; POTASSIUM 4.5 mmol/L (3.5-5.1); TOTAL BILIRUBIN 0.2 mg/dL (0.2-1.0); TOTAL PROTEIN 5.8 g/dL (6.4-8.2)
[2020-07-24 06:31] VITALS: BP 99/64
--- NOTE | 2020-07-24 08:37 | PDOC ---
Exam Note: Julian Note: This note is a late entry for 07/23/2020 covers elements not covered in my initial note. Subjective: The patient was seen individually in the evening of 07/23/2020 with Sadia MUÑOZ, discussed and reviewed the chart. The patient slept 4-3/4 hours previous night. Overall she has been doing well. I met with her in the group room area where she was watching television by herself. She was watching a cartoon show and had a sense of humor to say that her show had all make believe characters and the only real people were during the advertisements. She still seems to have some pressure of speech but much improved. Review of Systems: No CV, , pulmonary, eye, ENT system symptoms on review. Mental Status Exam: The patient is oriented to herself and situation. She is somewhat obsessing about wanting to go to [employer] before she goes back to a facility. She discussed with social service staff. Speech is coherent, less pressured. Abstraction is fair. Computation is impaired. Language function is intact. Mood and affect anxious, and labile. Laboratory Data: Reviewed. Impression: Schizoaffective disorder bipolar type with psychotic features. Anxiety disorder unspecified. Impulse control disorder unspecified. Plan: No change from initial note. Assessment: Vital Signs/I&O: Vital Signs Date Time Temp Pulse Resp B/P (MAP) Pulse Ox O2 Delivery O2 Flow Rate FiO2 07/24/20 06:31 97.5 91 14 99/64 (76) 92 Room Air I & O 07/23/20 07/23/20 07/24/20 15:00 23:00 07:00 Intake Total 660 ml 1080 ml Balance 660 ml 1080 ml Labs: Laboratory Tests Test 07/24/20 05:48 White Blood Count 4.5 x10^3/uL (4.0-11.0) Red Blood Count 3.61 x10^6/uL (3.50-5.40) Hemoglobin 10.2 g/dL (12.0-15.5) L Hematocrit 31.1 % (36.0-47.0) L Mean Corpuscular Volume 86 fL (79-100) Mean Corpuscular Hemoglobin 28 pg (25-35) Mean Corpuscular Hemoglobin Concent 33 g/dL (31-37) Red Cell Distribution Width 16.2 % (11.5-14.5) H Platelet Count 195 x10^3/uL (140-400) Neutrophils (%) (Auto) 38 % (31-73) Lymphocytes (%) (Auto) 38 % (24-48) Monocytes (%) (Auto) 19 % (0-9) H Eosinophils (%) (Auto) 5 % (0-3) H Basophils (%) (Auto) 1 % (0-3) Neutrophils # (Auto) 1.7 x10^3uL (1.8-7.7) L Lymphocytes # (Auto) 1.7 x10^3/uL (1.0-4.8) Monocytes # (Auto) 0.9 x10^3/uL (0.0-1.1) Eosinophils # (Auto) 0.2 x10^3/uL (0.0-0.7) Basophils # (Auto) 0.0 x10^3/uL (0.0-0.2) Sodium Level 143 mmol/L (136-145) Potassium Level 4.5 mmol/L (3.5-5.1) Chloride Level 106 mmol/L (98-107) Carbon Dioxide Level 31 mmol/L (21-32) Anion Gap 6 (6-14) Blood Urea Nitrogen 23 mg/dL (7-20) H Creatinine 0.9 mg/dL (0.6-1.0) Estimated GFR (Cockcroft-Gault) 61.7 BUN/Creatinine Ratio 26 (6-20) H Glucose Level 96 mg/dL (70-99) Calcium Level 8.7 mg/dL (8.5-10.1) Total Bilirubin 0.2 mg/dL (0.2-1.0) Aspartate Amino Transferase (AST) 24 U/L (15-37) Alanine Aminotransferase (ALT) 25 U/L (14-59) Alkaline Phosphatase 81 U/L (46-116) Total Protein 5.8 g/dL (6.4-8.2) L Albumin 2.4 g/dL (3.4-5.0) L Albumin/Globulin Ratio 0.7 (1.0-1.7) L Current Medications: Meds: Laboratory Tests Test 07/24/20 05:48 White Blood Count 4.5 x10^3/uL Red Blood Count 3.61 x10^6/uL Hemoglobin 10.2 g/dL Hematocrit 31.1 % Mean Corpuscular Volume 86 fL Mean Corpuscular Hemoglobin 28 pg Mean Corpuscular Hemoglobin Concent 33 g/dL Red Cell Distribution Width 16.2 % Platelet Count 195 x10^3/uL Neutrophils (%) (Auto) 38 % Lymphocytes (%) (Auto) 38 % Monocytes (%) (Auto) 19 % Eosinophils (%) (Auto) 5 % Basophils (%) (Auto) 1 % Neutrophils # (Auto) 1.7 x10^3uL Lymphocytes # (Auto) 1.7 x10^3/uL Monocytes # (Auto) 0.9 x10^3/uL Eosinophils # (Auto) 0.2 x10^3/uL Basophils # (Auto) 0.0 x10^3/uL Sodium Level 143 mmol/L Potassium Level 4.5 mmol/L Chloride Level 106 mmol/L Carbon Dioxide Level 31 mmol/L Anion Gap 6 Blood Urea Nitrogen 23 mg/dL Creatinine 0.9 mg/dL Estimated GFR (Cockcroft-Gault) 61.7 BUN/Creatinine Ratio 26 Glucose Level 96 mg/dL Calcium Level 8.7 mg/dL Total Bilirubin 0.2 mg/dL Aspartate Amino Transf (AST/SGOT) 24 U/L Alanine Aminotransferase (ALT/SGPT) 25 U/L Alkaline Phosphatase 81 U/L Total Protein 5.8 g/dL Albumin 2.4 g/dL Albumin/Globulin Ratio 0.7 Current Medications Medications (Trade) Dose Ordered Sig/Bora Route PRN Reason Start Time Stop Time Status Last Admin Dose Admin Diclofenac Sodium (Voltaren) 1 barbara PRN QID PRN TP MUSCLE PAIN 07/01/20 15:00 07/22/20 21:45 Divalproex Sodium (Depakote Sprinkles) 375 mg BID PO 07/01/20 21:00 07/10/20 14:23 DC 07/10/20 08:36 Docusate Sodium (Colace) 100 mg PRN BID PRN PO HARD STOOLS 07/01/20 15:00 07/04/20 19:14 Estradiol (Estrace) 1 barbara QMTH VG 07/03/20 16:00 07/06/20 17:44 DC Fluvoxamine Maleate (Luvox) 25 mg HS PO 07/01/20 21:00 07/02/20 09:40 DC 07/01/20 20:22 Furosemide (Lasix) 20 mg DAILY PO 07/02/20 09:00 07/23/20 08:45 Levothyroxine Sodium (Synthroid) 50 mcg HS PO 07/01/20 21:00 07/23/20 20:47 Memantine (Namenda) 10 mg BID PO 07/01/20 21:00 07/23/20 20:47 Mirtazapine (Remeron) 7.5 mg QHS PO 07/01/20 21:00 07/23/20 20:47 Olanzapine (ZyPREXA ZYDIS) 5 mg PRN BID PRN PO ANXIETY / AGITATION 07/01/20 15:00 07/02/20 09:40 DC 07/01/20 23:27 Artificial Tears (Refresh Classic) 1 drop PRN TID PRN OU DRY EYE 07/01/20 15:00 Prednisolone Acetate (Pred Forte) 1 drop DAILY OD 07/02/20 09:00 07/23/20 20:48 Tramadol HCl (Ultram) 50 mg PRN Q8HRS PRN PO PAIN 07/01/20 15:00 07/24/20 02:54 Trazodone HCl (Desyrel) 100 mg PRN QHS PRN PO INSOMNIA, MAY REPEAT X1 07/01/20 15:00 07/23/20 20:47 Ziprasidone (Geodon Im) 20 mg PRN BID PRN IM ANXIETY / AGITATION 07/01/20 15:00 07/02/20 10:56 DC 07/01/20 21:53 Guaifenesin/ Codeine Phosphate (Robitussin Ac) 5 ml PRN Q4HRS PRN PO COUGH 07/01/20 17:45 Al Hydroxide/Mg Hydroxide (Mylanta Plus Xs) 15 ml PRN Q2HR PRN PO DYSPEPSIA 07/01/20 17:45 Magnesium Hydroxide (Milk Of Magnesia) 2,400 mg PRN Q4HRS PRN PO CONSTIPATION 07/01/20 17:45 07/03/20 22:04 Olanzapine (ZyPREXA ZYDIS) 5 mg PRN Q2HRS PRN PO ANXIETY / AGITATION 07/02/20 09:45 07/20/20 00:08 Clozapine (Clozaril) 150 mg HS PO 07/02/20 21:00 07/10/20 14:23 DC 07/09/20 20:06 Ziprasidone (Geodon Im) 40 mg DAILY IM 07/02/20 11:15 07/04/20 17:18 DC 07/02/20 11:15 Lorazepam (Ativan Inj) 0.5 mg DAILY IM 07/03/20 14:30 07/03/20 19:35 DC 07/03/20 15:05 Lorazepam (Ativan Inj) 0.5 mg BID IM 07/03/20 21:00 07/04/20 17:18 DC 07/03/20 22:04 Lorazepam (Ativan Inj) 1 mg 1X ONCE IM 07/05/20 18:45 07/05/20 18:46 DC 07/05/20 20:46 Lorazepam (Ativan Inj) 1 mg DAILY IM 07/06/20 09:00 07/16/20 20:06 DC 07/15/20 08:30 Psyllium Hydrophilic Mucilloid (Metamucil) 1 pkt HS PO 07/05/20 21:30 07/23/20 20:48 Estradiol (Estrace) 1 barbara QMTH@2100 VG 07/06/20 21:00 07/17/20 21:16 Multi-Ingred Cream/Lotion/Oil/ Oint (Hydrocerin) 1 barbara PRN Q1HR PRN TP DRY SKIN / SCALING 07/08/20 12:30 Diphenhydramine HCl (Benadryl) 25 mg PRN Q4HRS PRN PO ITCHING 07/08/20 18:00 07/13/20 21:57 Clozapine (Clozaril) 175 mg HS PO 07/10/20 21:00 07/17/20 18:08 DC 07/16/20 20:14 Divalproex Sodium (Depakote Sprinkles) 500 mg BID PO 07/10/20 21:00 07/14/20 16:36 DC 07/14/20 07:53 Divalproex Sodium (Depakote Sprinkles) 500 mg DAILY PO 07/15/20 09:00 07/23/20 08:45 Divalproex Sodium (Depakote Sprinkles) 750 mg QHS PO 07/14/20 21:00 07/23/20 20:47 Clozapine (Clozaril) 200 mg HS PO 07/17/20 21:00 07/23/20 20:47 Acetaminophen (Tylenol) 650 mg PRN Q6HRS PRN PO MILD PAIN / TEMP > 100.3'F 07/20/20 20:15 I have reviewed the current psychotropics carefully including drug interactions. Risk benefit ratio favors no change other than as noted in my dictated progress note. Diagnosis: Problems: (1) Schizoaffective disorder, bipolar type (2) Impulse control disorder, unspecified (3) Anxiety disorder, unspecified (4) Bipolar affective, mixed, sev w/ psych KIERSTEN WATT MD Jul 24, 2020 08:37
[2020-07-24] MEDS: MEMANTINE 10 MG TABLET. PO SCH (09:07)
[2020-07-24] MEDS: FUROSEMIDE 20 MG TABLET PO SCH (09:07)
[2020-07-24] MEDS: DIVALPROEX 125 MG CAP.SPRINK PO SCH (09:07)
--- NOTE | 2020-07-24 10:46 | NUR ---
Transition Record was faxed to follow-up provider with the following elements: Reason for admission, procedures, tests, principal diagnosis, pending studies, patient instructions, 09/12 contact information for unit, phone number to obtain pending test results, plan for follow-up care, physician follow-up, advanced directive information, and medication list with dose, duration and instructions. This information was included in the following documents: History and physical, lab results, study results, progress notes, social work planning form, DC instruction form, patient visit summary, and medication reconciliation form. Date & time record faxed: 07/23/20 [id number] Record faxed to: [facility] Record discussed with/ report given to: Katt. Spoke about weekly CBC for clozaril and monthly cbc, cmp, and valproic acid level for valproic acid
--- NOTE | 2020-07-24 21:31 | PDOC ---
Exam Note: Julian Note: Please also refer to the separate dictated note~for this date of service dictated separately.~Patient seen individually. Discussed the patient with Nursing staff reviewed the chart.~Reviewed interim history and current functioning. Reviewed vital signs,~Labs/ Radiology~and current medications noted below. Continue current treatment with the changes noted in the dictated addendum note Assessment: Vital Signs/I&O: Vital Signs Date Time Temp Pulse Resp B/P (MAP) Pulse Ox O2 Delivery O2 Flow Rate FiO2 07/24/20 06:31 97.5 91 14 99/64 (76) 92 Room Air I & O 07/23/20 07/23/20 07/24/20 15:00 23:00 07:00 Intake Total 660 ml 1080 ml Balance 660 ml 1080 ml Labs: Laboratory Tests Test 07/24/20 05:48 White Blood Count 4.5 x10^3/uL (4.0-11.0) Red Blood Count 3.61 x10^6/uL (3.50-5.40) Hemoglobin 10.2 g/dL (12.0-15.5) L Hematocrit 31.1 % (36.0-47.0) L Mean Corpuscular Volume 86 fL (79-100) Mean Corpuscular Hemoglobin 28 pg (25-35) Mean Corpuscular Hemoglobin Concent 33 g/dL (31-37) Red Cell Distribution Width 16.2 % (11.5-14.5) H Platelet Count 195 x10^3/uL (140-400) Neutrophils (%) (Auto) 38 % (31-73) Lymphocytes (%) (Auto) 38 % (24-48) Monocytes (%) (Auto) 19 % (0-9) H Eosinophils (%) (Auto) 5 % (0-3) H Basophils (%) (Auto) 1 % (0-3) Neutrophils # (Auto) 1.7 x10^3uL (1.8-7.7) L Lymphocytes # (Auto) 1.7 x10^3/uL (1.0-4.8) Monocytes # (Auto) 0.9 x10^3/uL (0.0-1.1) Eosinophils # (Auto) 0.2 x10^3/uL (0.0-0.7) Basophils # (Auto) 0.0 x10^3/uL (0.0-0.2) Sodium Level 143 mmol/L (136-145) Potassium Level 4.5 mmol/L (3.5-5.1) Chloride Level 106 mmol/L (98-107) Carbon Dioxide Level 31 mmol/L (21-32) Anion Gap 6 (6-14) Blood Urea Nitrogen 23 mg/dL (7-20) H Creatinine 0.9 mg/dL (0.6-1.0) Estimated GFR (Cockcroft-Gault) 61.7 BUN/Creatinine Ratio 26 (6-20) H Glucose Level 96 mg/dL (70-99) Calcium Level 8.7 mg/dL (8.5-10.1) Total Bilirubin 0.2 mg/dL (0.2-1.0) Aspartate Amino Transferase (AST) 24 U/L (15-37) Alanine Aminotransferase (ALT) 25 U/L (14-59) Alkaline Phosphatase 81 U/L (46-116) Total Protein 5.8 g/dL (6.4-8.2) L Albumin 2.4 g/dL (3.4-5.0) L Albumin/Globulin Ratio 0.7 (1.0-1.7) L Current Medications: Meds: Laboratory Tests Test 07/24/20 05:48 White Blood Count 4.5 x10^3/uL Red Blood Count 3.61 x10^6/uL Hemoglobin 10.2 g/dL Hematocrit 31.1 % Mean Corpuscular Volume 86 fL Mean Corpuscular Hemoglobin 28 pg Mean Corpuscular Hemoglobin Concent 33 g/dL Red Cell Distribution Width 16.2 % Platelet Count 195 x10^3/uL Neutrophils (%) (Auto) 38 % Lymphocytes (%) (Auto) 38 % Monocytes (%) (Auto) 19 % Eosinophils (%) (Auto) 5 % Basophils (%) (Auto) 1 % Neutrophils # (Auto) 1.7 x10^3uL Lymphocytes # (Auto) 1.7 x10^3/uL Monocytes # (Auto) 0.9 x10^3/uL Eosinophils # (Auto) 0.2 x10^3/uL Basophils # (Auto) 0.0 x10^3/uL Sodium Level 143 mmol/L Potassium Level 4.5 mmol/L Chloride Level 106 mmol/L Carbon Dioxide Level 31 mmol/L Anion Gap 6 Blood Urea Nitrogen 23 mg/dL Creatinine 0.9 mg/dL Estimated GFR (Cockcroft-Gault) 61.7 BUN/Creatinine Ratio 26 Glucose Level 96 mg/dL Calcium Level 8.7 mg/dL Total Bilirubin 0.2 mg/dL Aspartate Amino Transf (AST/SGOT) 24 U/L Alanine Aminotransferase (ALT/SGPT) 25 U/L Alkaline Phosphatase 81 U/L Total Protein 5.8 g/dL Albumin 2.4 g/dL Albumin/Globulin Ratio 0.7 Current Medications Medications (Trade) Dose Ordered Sig/Bora Route PRN Reason Start Time Stop Time Status Last Admin Dose Admin Diclofenac Sodium (Voltaren) 1 barbara PRN QID PRN TP MUSCLE PAIN 07/01/20 15:00 07/24/20 10:51 DC 07/22/20 21:45 Divalproex Sodium (Depakote Sprinkles) 375 mg BID PO 07/01/20 21:00 07/10/20 14:23 DC 07/10/20 08:36 Docusate Sodium (Colace) 100 mg PRN BID PRN PO HARD STOOLS 07/01/20 15:00 07/24/20 10:51 DC 07/04/20 19:14 Estradiol (Estrace) 1 barbara QMTH VG 07/03/20 16:00 07/06/20 17:44 DC Fluvoxamine Maleate (Luvox) 25 mg HS PO 07/01/20 21:00 07/02/20 09:40 DC 07/01/20 20:22 Furosemide (Lasix) 20 mg DAILY PO 07/02/20 09:00 07/24/20 10:51 DC 07/24/20 09:07 Levothyroxine Sodium (Synthroid) 50 mcg HS PO 07/01/20 21:00 07/24/20 10:51 DC 07/23/20 20:47 Memantine (Namenda) 10 mg BID PO 07/01/20 21:00 07/24/20 10:51 DC 07/24/20 09:07 Mirtazapine (Remeron) 7.5 mg QHS PO 07/01/20 21:00 07/24/20 10:51 DC 07/23/20 20:47 Olanzapine (ZyPREXA ZYDIS) 5 mg PRN BID PRN PO ANXIETY / AGITATION 07/01/20 15:00 07/02/20 09:40 DC 07/01/20 23:27 Artificial Tears (Refresh Classic) 1 drop PRN TID PRN OU DRY EYE 07/01/20 15:00 07/24/20 10:51 DC Prednisolone Acetate (Pred Forte) 1 drop DAILY OD 07/02/20 09:00 07/24/20 10:51 DC 07/23/20 20:48 Tramadol HCl (Ultram) 50 mg PRN Q8HRS PRN PO PAIN 07/01/20 15:00 07/24/20 10:51 DC 07/24/20 02:54 Trazodone HCl (Desyrel) 100 mg PRN QHS PRN PO INSOMNIA, MAY REPEAT X1 07/01/20 15:00 07/24/20 10:51 DC 07/23/20 20:47 Ziprasidone (Geodon Im) 20 mg PRN BID PRN IM ANXIETY / AGITATION 07/01/20 15:00 07/02/20 10:56 DC 07/01/20 21:53 Guaifenesin/ Codeine Phosphate (Robitussin Ac) 5 ml PRN Q4HRS PRN PO COUGH 07/01/20 17:45 07/24/20 10:51 DC Al Hydroxide/Mg Hydroxide (Mylanta Plus Xs) 15 ml PRN Q2HR PRN PO DYSPEPSIA 07/01/20 17:45 07/24/20 10:51 DC Magnesium Hydroxide (Milk Of Magnesia) 2,400 mg PRN Q4HRS PRN PO CONSTIPATION 07/01/20 17:45 07/24/20 10:51 DC 07/03/20 22:04 Olanzapine (ZyPREXA ZYDIS) 5 mg PRN Q2HRS PRN PO ANXIETY / AGITATION 07/02/20 09:45 07/24/20 10:51 DC 07/20/20 00:08 Clozapine (Clozaril) 150 mg HS PO 07/02/20 21:00 07/10/20 14:23 DC 07/09/20 20:06 Ziprasidone (Geodon Im) 40 mg DAILY IM 07/02/20 11:15 07/04/20 17:18 DC 07/02/20 11:15 Lorazepam (Ativan Inj) 0.5 mg DAILY IM 07/03/20 14:30 07/03/20 19:35 DC 07/03/20 15:05 Lorazepam (Ativan Inj) 0.5 mg BID IM 07/03/20 21:00 07/04/20 17:18 DC 07/03/20 22:04 Lorazepam (Ativan Inj) 1 mg 1X ONCE IM 07/05/20 18:45 07/05/20 18:46 DC 07/05/20 20:46 Lorazepam (Ativan Inj) 1 mg DAILY IM 07/06/20 09:00 07/16/20 20:06 DC 07/15/20 08:30 Psyllium Hydrophilic Mucilloid (Metamucil) 1 pkt HS PO 07/05/20 21:30 07/24/20 10:51 DC 07/23/20 20:48 Estradiol (Estrace) 1 barbara QMTH@2100 VG 07/06/20 21:00 07/24/20 10:51 DC 07/17/20 21:16 Multi-Ingred Cream/Lotion/Oil/ Oint (Hydrocerin) 1 barbara PRN Q1HR PRN TP DRY SKIN / SCALING 07/08/20 12:30 07/24/20 10:51 DC Diphenhydramine HCl (Benadryl) 25 mg PRN Q4HRS PRN PO ITCHING 07/08/20 18:00 07/24/20 10:51 DC 07/13/20 21:57 Clozapine (Clozaril) 175 mg HS PO 07/10/20 21:00 07/17/20 18:08 DC 07/16/20 20:14 Divalproex Sodium (Depakote Sprinkles) 500 mg BID PO 07/10/20 21:00 07/14/20 16:36 DC 07/14/20 07:53 Divalproex Sodium (Depakote Sprinkles) 500 mg DAILY PO 07/15/20 09:00 07/24/20 10:51 DC 07/24/20 09:07 Divalproex Sodium (Depakote Sprinkles) 750 mg QHS PO 07/14/20 21:00 07/24/20 10:51 DC 07/23/20 20:47 Clozapine (Clozaril) 200 mg HS PO 07/17/20 21:00 07/24/20 10:51 DC 07/23/20 20:47 Acetaminophen (Tylenol) 650 mg PRN Q6HRS PRN PO MILD PAIN / TEMP > 100.3'F 07/20/20 20:15 07/24/20 10:51 DC I have reviewed the current psychotropics carefully including drug interactions. Risk benefit ratio favors no change other than as noted in my dictated progress note. Diagnosis: Problems: (1) Schizoaffective disorder, bipolar type (2) Impulse control disorder, unspecified (3) Anxiety disorder, unspecified (4) Bipolar affective, mixed, sev w/ psych KIERSTEN WATT MD Jul 24, 2020 21:31
--- NOTE | 2020-07-24 22:08 | DS ---
DATE OF DISCHARGE: 07/24/2020 DISCHARGE SUMMARY/PSYCHIATRIC PROGRESS NOTE This note covers elements not covered in my initial note on 07/24/2020. REASON FOR ADMISSION: Please refer to the admission history for details. Briefly, the patient is a 70-year-old female who returns back to us from [facility] from where she was sent to [facility] on account of marked amita, insomnia, having outburst, throwing coffee, grandiose, actively hallucinating. She had failed outpatient psychiatric interventions. SIGNIFICANT FINDINGS AND CLINICAL COURSE: Following admission, the patient was extremely grandiose, labile, hyperverbal and totally out of control. She minimized on her symptoms. Adjustments were gradually made in her psychotropic. She seemed to respond to a combination of Depakote 500 mg a.m., 750 at bedtime with a valproic acid level therapeutic at 73. She is also on Namenda 10 mg b.i.d., trazodone 100 mg at bedtime p.r.n., september repeat x 1 for insomnia, Zyprexa p.r.n., Remeron 7.5 mg at bedtime, clozapine 200 mg at bedtime and weekly CBC, absolute neutrophil counts were stable. Gradually, the patient's mood appeared to improve. She was still a little loud at times, but grandiosity, amita appeared to have resolved. She is pleasant, verbal, and interactive. REVIEW OF SYSTEMS: No CV, , pulmonary, eye, ENT system symptoms on review. MENTAL STATUS EXAM: Oriented to herself and situation. Speech coherent, less pressured. Abstraction fair, computation impaired, language function intact. Mood and affect, grandiosity, much improved. LABORATORY DATA: Reviewed. FINAL DIAGNOSES: Bipolar 1 disorder, manic with psychotic features versus schizoaffective disorder, bipolar type, mixed with psychotic features, in partial remission; anxiety disorder, unspecified; impulse control disorder, unspecified. Rest unchanged from admission. DISCHARGE MEDICATIONS: Please refer to the [facility]AD with weekly CBC, absolute neutrophil counts before dispensing the next weeks of Clozaril. Rest unchanged. Time for discharge day management greater than 30 minutes. KIERSTEN WATT MD DR: SANCHEZ/fredrick JOB#: [id number] / [id number]
== END 2020-07-24 10:51 | DRG 885 ==
LOC: GEROPSY 14:47
PROVIDERS: ADMIT Psychiatry & Neurology Psychiatry; ATTEND Psychiatry & Neurology Psychiatry
DX: F31.64 Bipolar disorder, current episode mixed, severe, with psychotic features (principal); F03.91 Unspecified dementia, unspecified severity, with behavioral disturbance; Z20.822 Contact with and (suspected) exposure to COVID-19; E03.9 Hypothyroidism, unspecified; E78.5 Hyperlipidemia, unspecified; F41.9 Anxiety disorder, unspecified; F42.9 Obsessive-compulsive disorder, unspecified; F63.9 Impulse disorder, unspecified; G47.00 Insomnia, unspecified; I10 Essential (primary) hypertension; Z79.899 Other long term (current) drug therapy
CPT/HCPCS: 36415; 80053; 80164; 81001; 82140; 83735; 84436; 84443; 84480; 85007; 85025; J2060; J3486; Q0163; U0003